=== PATIENT | female | born 2000 | race Caucasian/White ===

== ENCOUNTER 2023-01-24 09:57 | Outpatient (OUT) | payer OTHER, SELFPAY ==
--- NOTE | 2023-01-24 10:00 | US_ITS ---
[place] [id number] Patient Name: KAILYN ACKERMAN MRN: [id number] date: 2000 Sex: F Assigned Patient Location: Current Patient Location: Accession/Order Number: [id number] Exam Date: 01/24/2023 10:00 Report Date: 01/27/2023 15:30 At the request of: VAL ANG Procedure: US OB transvaginal EXAMINATION: US OB transvaginal HISTORY: MISSED MENSES COMPARISON: No relevant comparison available. FINDINGS: GESTATIONAL SAC: Present and normal appearing. YOLK SAC: Present and normal appearing. POLE: Present and normal appearing. CARDIAC: Absent. UTERUS: Normal size and appearance. OVARIES: Right: Normal. Left: Normal. CERVIX: 3.0 cm in length and closed. CUL-DE-SAC: Normal. OTHER: None. AGE BY LMP: 7 weeks 3 days NOY BY LMP: 09/09/2023 AGE BY US CRL: 5 weeks 6 days NOY BY US CRL: 09/20/2023 US/US OB transvaginal IMPRESSION: 1. Early intrauterine . Follow-up recommended. Electronically authenticated by: MARS FRANKEL Date: 01/27/2023 15:30
== END 2023-01-24 09:58 | disposition home or self-care (01) ==
LOC: US 09:57
PROVIDERS: Visit Provider Obstetrics & Gynecology
DX: Z34.91 Encounter for supervision of normal pregnancy, unspecified, first trimester (principal)
CPT/HCPCS: 76817

== ENCOUNTER 2023-02-06 17:12 | Outpatient (OUT) | payer OTHER, SELFPAY ==
--- NOTE | 2023-02-06 | US_ITS ---
[address] [address] Patient Name: KAILYN ACKERMAN MRN: [id number] date: 2000 Sex: F Assigned Patient Location: US Current Patient Location: Accession/Order Number: [id number] Exam Date: 02/06/2023 15:10 Report Date: 02/07/2023 07:37 At the request of: VAL ANG Procedure: US OB transvaginal EXAMINATION: US OB transvaginal HISTORY: missed menses n92.6 COMPARISON: 01/24/2023 FINDINGS: Daly intrauterine gestation. Gestational sac: 1.16 cm, 5 weeks 2 days CRL: 2.7 mm, 5 weeks 6 days Yolk sac: 2.4 mm Cervix: Closed, 3.1 cm The uterus is normal, anteverted. Identified adjacent to the gestational sac is a 0.4 x 0.5 x 0.3 cm area of hypoechogenicity The ovaries are normal in appearance. Clinical age: 9 weeks 4 days Clinical NOY: 09/07/2023 Ultrasound age: 5 weeks 4 days Ultrasound NOY: 10/05/2023 US/US OB transvaginal IMPRESSION: 5 mm subchorionic hematoma Viable daly intrauterine gestation measuring 5 weeks 4 days Electronically authenticated by: SOFIA KABA Date: 02/07/2023 07:37
== END 2023-02-06 17:13 | disposition home or self-care (01) ==
LOC: US 17:12
PROVIDERS: Visit Provider Obstetrics & Gynecology
DX: O43.891 Other placental disorders, first trimester (principal); Z3A.01 Less than 8 weeks gestation of pregnancy
CPT/HCPCS: 76817

== ENCOUNTER 2023-02-11 14:04 | Day surgery (SDC) | payer SELFPAY ==
[2023-02-11] VITALS (8 sets, daily range): BP systolic 88–105; BP diastolic 44–70; PULSE 52–96; RESP 14–22; TEMP 36.2–36.7; O2SAT 98–100; BMI 25.4
[2023-02-11 14:34] LABS: Basophils Absolute Auto 0.1 10^3/uL (0.0-0.1); Basophils Percent Auto 0.8 % (0.2-2.0); Eosinophils Absolute Auto 0.1 10^3/uL (0.0-0.7); Eosinophils Percent Auto 1.6 % (0.9-7.0); Hematocrit 37.1 % (36.0-48.0); Immature Granulocytes Abs Auto 0.04 10^3/uL (0.00-0.03); Immature Granulocytes Pct Auto 0.5 % (0.0-0.5); Lymphocytes Absolute Auto 2.1 10^3/uL (1.2-3.8); Lymphocytes Percent Auto 28.6 % (20.5-60.0); Mean Corpuscular HGB Conc 32.3 g/dL (29.9-35.2); Mean Corpuscular Hemoglobin 27.2 pg (26.7-34.0); Mean Corpuscular Volume 84.1 fL (81.0-99.0); Mean Platelet Volume 9.7 fL (9.5-13.5); Monocytes Absolute Auto 0.6 10^3/uL (0.3-0.8); Monocytes Percent Auto 7.6 % (1.7-12.0); Neutrophils Absolute Auto 4.5 10^3/uL (1.4-6.5); Neutrophils Percent Auto 60.9 % (43.0-75.0); Platelet Count 251 10^3/uL (150-450); Red Blood Count 4.41 10^6/uL (4.20-5.40); Red Cell Distribution Width 14.6 % (11.0-15.0); White Blood Count 7.4 10^3/uL (4.0-11.0)
[2023-02-11] MEDS: LACTATED RINGER'S SOLUTION 1,000 ML 75 ML IV (15:05)
[2023-02-11] MEDS: MIDAZOLAM HCL 2 MG/2 ML VIAL IV (15:21)
[2023-02-11 16:12] LABS: HCG Quantitative 7354 mIU/mL
--- NOTE | 2023-02-11 16:38 | P.ON_ITS ---
Brief Operative Note Date of procedure: 02/11/23 Pre-op diagnosis: first trimester missed Post-op diagnosis: same as pre-op Procedure: NAME OF PROCEDURE: [D&C suction ] PROCEDURE: The patient was taken back to the OR where she was given general anesthesia without difficulty. She was then placed in dorsal lithotomy position, prepped and draped in the normal sterile fashion. A weighted speculum was placed in the patient's vagina and the anterior lip of the cervix was identified and grasped with a single-tooth tenaculum. The patient was then gently dilated using Hegar dilators after we had sounded roughly to 9 cm. The suction curette was then tested. The suction curette was then placed in the patient's uterus and products of conception were removed using an 8-Icelandic suction curette. ?Excellent hemostasis was noted. The patient tolerated the procedure well. Sponge, lap, and needle counts were correct x 2. All instruments were then removed from the patient's vagina. The patient was taken to the Recovery Room in stable co ndition. ?? Anesthesia: JEROMEA Surgeon: Juvenal Thorpe Estimated blood loss (mL): 10 Pathology: other (products of conception) Condition: stable Disposition: PACU
--- NOTE | 2023-02-11 16:58 | PC.NURSE ---
peripad dry; teary eyed
[2023-02-11] MEDS: LACTATED RINGER'S SOLUTION 1,000 ML 150 ML IV (17:01)
--- NOTE | 2023-02-11 17:13 | PC.NURSE ---
scant drainage on peripad
== END 2023-02-11 17:47 | disposition home or self-care (01) ==
PROVIDERS: Visit Provider Obstetrics & Gynecology
PROC: (CPT 1965; principal; 2023-02-11 15:30)
DX: O02.1 Missed abortion (principal)
CPT/HCPCS: 59820; 36415; 84702; 85025; 86900; 86901; 88305; J2704

== ENCOUNTER 2023-09-04 14:11 | Outpatient (OUT) | payer OTHER, SELFPAY ==
--- NOTE | 2023-09-04 14:13 | US_ITS ---
The [address] [address] Patient Name: KAILYN ACKERMAN MRN: [id number] date: 2000 Sex: F Assigned Patient Location: [facility] Current Patient Location: [facility] Accession/Order Number: [id number] Exam Date: 09/04/2023 14:13 Report Date: 09/04/2023 15:34 At the request of: VAL ANG Procedure: US OB transvaginal EXAMINATION: US OB transvaginal HISTORY: MISSED MENSES COMPARISON: 02/06/2023 FINDINGS: Transvaginal images Daly intrauterine gestation Gestational sac: 2.08 cm, 6 weeks 4 days CRL: 1.24 cm, 7 weeks 3 days Yolk sac: 0.5 cm Heart rate: 169 bpm Area of hypoechogenicity adjacent to the gestational sac measuring 4.3 x 2.9 x 1.5 cm consistent with subchorionic hemorrhage The uterus is normal, anteverted, anteflexed The right ovary is normal measuring 3.3 x 1.7 x 3.6 cm. Normal color flow The left ovary measures 5.0 x 3.1 x 4.6 cm. Areas of anechoic echogenicity measuring up to 3.8 cm likely corpus luteal cyst. No free fluid. Clinical age: 8 weeks 0 days Clinical NOY: 04/15/2024 Ultrasound age: 7 weeks 3 days Ultrasound NOY: 04/19/2024 US/US OB transvaginal IMPRESSION: Viable daly intrauterine gestation measuring 7 weeks 3 days 4.3 cm subchorionic hematoma Electronically authenticated by: SOFIA KABA Date: 09/04/2023 15:34
== END 2023-09-04 14:12 | disposition home or self-care (01) ==
LOC: NOMS 14:11
PROVIDERS: Visit Provider Obstetrics & Gynecology
DX: O46.8X1 Other antepartum hemorrhage, first trimester (principal); Z3A.01 Less than 8 weeks gestation of pregnancy; N92.6 Irregular menstruation, unspecified
CPT/HCPCS: 76817

== ENCOUNTER 2023-09-18 08:58 | Outpatient (OUT) | payer OTHER, SELFPAY ==
[2023-09-18 09:31] LABS: BOX Test Sent Out Y
[2023-09-18 09:37] LABS: Basophils Percent Auto 0.4 % (0.2-2.0); Eosinophils Absolute Auto 0.1 10^3/uL (0.0-0.7); Eosinophils Percent Auto 1.3 % (0.9-7.0); Hematocrit 36.9 % (36.0-48.0); Hemoglobin 11.9 g/dL (12.0-16.0); Immature Granulocytes Abs Auto 0.02 10^3/uL (0.00-0.03); Immature Granulocytes Pct Auto 0.2 % (0.0-0.5); Lymphocytes Absolute Auto 2.5 10^3/uL (1.2-3.8); Lymphocytes Percent Auto 27.6 % (20.5-60.0); Mean Corpuscular HGB Conc 32.2 g/dL (29.9-35.2); Mean Corpuscular Hemoglobin 27.7 pg (26.7-34.0); Mean Corpuscular Volume 85.8 fL (81.0-99.0); Mean Platelet Volume 9.5 fL (9.5-13.5); Monocytes Absolute Auto 0.6 10^3/uL (0.3-0.8); Monocytes Percent Auto 6.7 % (1.7-12.0); Neutrophils Absolute Auto 5.8 10^3/uL (1.4-6.5); Neutrophils Percent Auto 63.8 % (43.0-75.0); Platelet Count 281 10^3/uL (150-450); Red Cell Distribution Width 13.2 % (11.0-15.0); White Blood Count 9.1 10^3/uL (4.0-11.0)
[2023-09-18 11:00] LABS: Estimated Average Glucose 100 mg/dL; Glycohemoglobin A1C 5.1 % (4.5-6.2)
[2023-09-19 06:08] LABS: HBsAg Screen Negative (Negative); HCV Ab Non Reactive (Non Reactive); HIV Ab/p24 Ag Screen Non Reactive (Non Reactive)
[2023-09-19 07:08] LABS: Rubella Antibodies, IgG 1.92 index (Immune >0.99)
[2023-09-19 11:09] LABS: Rapid Plasma Reagin, Quant Non Reactive titer (NonRea<1:1)
== END 2023-09-18 08:59 | disposition home or self-care (01) ==
PROVIDERS: Visit Provider Obstetrics & Gynecology
DX: N92.6 Irregular menstruation, unspecified (principal); Z36.0 Encounter for antenatal screening for chromosomal anomalies
CPT/HCPCS: 36415; 83036; 85025; 86592; 86762; 86803; 86850; 86900; 86901; 87086; 87340; 87389

== ENCOUNTER 2023-10-27 22:19 | Outpatient (REF) | payer OTHER, SELFPAY ==
[2023-10-31 10:09] LABS: Age Gdln ACOG Testing Note (.); IGP, rfx Aptima HPV ASCU Note (.)
== END 2023-10-27 22:20 | disposition home or self-care (01) ==
LOC: LAB 22:19
PROVIDERS: Visit Provider Physician Assistant
DX: Z01.419 Encounter for gynecological examination (general) (routine) without abnormal findings (principal)
CPT/HCPCS: G0145

== ENCOUNTER 2023-12-01 14:39 | Outpatient (OUT) | payer OTHER, SELFPAY ==
[2023-12-03 01:06] LABS: AFP Value 87.1 ng/mL (.); Gest. Age on Collection Date 20.6 weeks (.); Insulin Dep Diabetes No (.); Maternal Age At EDD 21.5 yr (.); OSBR Risk 1 IN 3133 (.); Results Report (.)
== END 2023-12-01 14:40 | disposition home or self-care (01) ==
LOC: LAB 14:40
PROVIDERS: Visit Provider Obstetrics & Gynecology
DX: Z34.92 Encounter for supervision of normal pregnancy, unspecified, second trimester (principal)
CPT/HCPCS: 36415; 82105

== ENCOUNTER 2023-12-16 12:15 | Observation (INO) | payer OTHER, SELFPAY ==
[2023-12-16 12:44] VITALS: BP 100/53; PULSE 86
--- NOTE | 2023-12-16 12:58 | US_ITS ---
[place] [id number] Patient Name: KAILYN ACKERMAN MRN: [id number] date: 2000 Sex: F Assigned Patient Location: [facility] Current Patient Location: [facility] Accession/Order Number: [id number] Exam Date: 12/16/2023 13:30 Report Date: 12/16/2023 14:38 At the request of: VAL ANG Procedure: US OB placenta EXAM: US OB placenta HISTORY: back pain COMPARISON: None. TECHNIQUE: Grayscale and color FINDINGS: position: Cephalic presentation, longitudinal lie Amniotic fluid: 13.8 cm, normal Largest fluid pocket: 4.7 cm Placenta: Posterior, incidental circumvallate placenta. No intraplacental or retroplacental echogenic abnormality Heart rate: 152 bpm Clinical age: 22 weeks 5 days Clinical NOY: 04/15/2024 US/US OB placenta IMPRESSION: Unremarkable placenta Electronically authenticated by: SOFIA KABA Date: 12/16/2023 14:38
[2023-12-16 13:26] LABS: Amnisure NEGATIVE (NEGATIVE); Internal Control Within Normal Limits
== END 2023-12-16 14:49 | disposition home or self-care (01) ==
LOC: FBC 12:18
PROVIDERS: Admitting Provider Obstetrics & Gynecology; Visit Provider Obstetrics & Gynecology
DX: O36.8120 Decreased fetal movements, second trimester, not applicable or unspecified (principal); O26.892 Other specified pregnancy related conditions, second trimester; N89.8 Other specified noninflammatory disorders of vagina; M54.50 Low back pain, unspecified; R10.30 Lower abdominal pain, unspecified; Z3A.22 22 weeks gestation of pregnancy
CPT/HCPCS: 76815; 84112; G0378; G0379

== ENCOUNTER 2024-01-12 09:06 | Outpatient (OUT) | payer OTHER, SELFPAY ==
--- NOTE | 2024-01-12 09:09 | US_ITS ---
[address] [address] Patient Name: KAILYN ACKERMAN MRN: [id number] date: 2000 Sex: F Assigned Patient Location: US Current Patient Location: US Accession/Order Number: [id number] Exam Date: 01/12/2024 09:10 Report Date: 01/12/2024 10:20 At the request of: GONSALO CORRAL Procedure: US OB growth EXAMINATION: US OB growth HISTORY: 24 Weeks Gestation Of COMPARISON: Ultrasound OB placenta 12/16/2023 FINDINGS: Heart Rate: 160.71 bpm Amniotic Fluid Volume: 12.4 cm; normal range Number: 1 Position: CEPHALIC BIOMETRY: BPD: 6.61 cm; 26 weeks 5 days; 41.50 % HC: 25.48 cm; 27 weeks 5 days; 61.50 % AC: 20.90 cm; 25 weeks 3 days; 12.60 % FL: 4.49 cm; 24 weeks 6 days; 3.30 % EFW: 815.95 g; 8.10 % FL/AC: 21.47 FL/BPD: 67.92 HC/AC: 1.22 GESTATIONAL AGE: Age by EDC: 26 weeks 4 days NOY by EDC: 2024-04-15 Age by US: 26 weeks 1 day NOY by US: 2024-04-18 US/US OB growth IMPRESSION: 1. Single live intrauterine with growth detailed above. 2. Known circumvallate placenta. Electronically authenticated by: MARS FRANKEL Date: 01/12/2024 10:20
--- OUTSIDE RECORDS SUMMARY | 2024-01-12 09:25 | XMS_ITS | CCD ---
Author Organization [facility] Inform ion [facility] Care Team Providers Care [employer] Vice President Name Role Phone Kendra Witt Unavailable Michael Oneil Unavailable Unavailable Primary Care Provider JUAQUIN mAos Referring Unavailable ASHIA, DR NEAL Consulting Unavailable REQUEST, NONE LISTED Primary Care Unavaila ble ASHIA, DR NEAL Attending Unavailable ASHIA, DR NEAL Admitting Unavailable REQUEST, NONE LISTED Primary Care Unavaila ble ASHIA, DR NEAL Attending Unavailable ASHIA, DR NEAL Admitting Unavailable KARASIK, DR YANEZ Consulting Unavailable REQUEST, NONE LISTED Primary Care Unavaila ble ASHIA, DR NEAL Attending Unavailable ASHIA, DR NEAL Admitting Unavailable ASHIA, DR NEAL Consulting Unavailable REQUEST, NONE LISTED Primary Care Unavaila ble ASHIA, DR NEAL Attending Unavailable ASHIA, DR NEAL Admitting Unavailable ASHIA, DR NEAL Consulting Unavailable REQUEST, NONE LISTED Primary Care Unavaila ble ASHIA, DR NEAL Attending Unavailable ASHIA, DR NEAL Admitting Unavailable ASHIA, DR NEAL Consulting Unavailable REQUEST, NONE LISTED Primary Care Unavaila ble ASHIA, DR NEAL Attending Unavailable ASHIA, DR NEAL Admitting Unavailable ROSEANN CORRAL Consulting Unavailable REQUEST, NONE LISTED Primary Care Unavaila ROSEANN Wilson Attending Unavailable ROSEANN CORRAL Admitting Unavailable KARASIK, DR YANEZ Consulting Unavailable MISC, DR SANDOVAL Primary Care Unavailable KARASIK, DR YANEZ Attending Unavailable KARASIK, DR YANEZ Admitting Unavailable ZIEBER, DR MARS Mccarthy Consulting Unavailable MAGNOLIA, DR SOFIA Hull Consulting Unavailable REQUEST, NONE LISTED Primary Care Unavaila ble ASHIA, DR NEAL Attending Unavailable ASHIA, DR NEAL Admitting Unavailable ASHIA, DR NEAL Consulting Unavailable KARASIK, DR YANEZ Consulting Unavailable REQUEST, NONE LISTED Primary Care Unavaila ble ASHIA, DR NEAL Attending Unavailable ASHIA, DR NEAL Admitting Unavailable ASHIA, DR NEAL Consulting Unavailable AGUBOSIM, ZAN Consulting Unavailable ASHIA, DR NEAL Procedure Practitioner Unavailab ricardo KABA, DR SOFIA Hull Consulting Unavailable REQUEST, NONE LISTED Primary Care Unavaila ble ASHIA, DR NEAL Attending Unavailable ASHIA, DR NEAL Admitting Unavailable ASHIA, DR NEAL Consulting Unavailable Viet Welch Unavailable NONE, XXXX Primary Care Physician Unavailab le NO FAMILY, PHYSICIAN Primary Care Provider Unava MD Jose Moody Emergency Provider Jose Silverman Attending Unavailable Jose Silverman Admitting Unavailable NO FAMILY, PHYSICIAN Primary Care Unavailable Kenneth Mills Unavailable SELAM HUNTER Primary Care Physician SELAM HUNTER Primary Care Unavailable Emily Harper Attending Unavailable SELAM HUNTER Primary Care Unavailable Wil Chandra Attending Unavailable Siva Schulte Attending Unavailable SELAM HUNTER Admitting Unavailable SEALM HUNTER Attending Unavailable JUVENAL THORPE Referring Unavailable JUANITO PABLO Attending Unavailable JESSICA ALEJO Referring Unavailable JUVENAL THORPE Referring Unavailable JUVENAL THORPE Attending Unavailable GONSALO CORRAL Attending Unavailable JUVENAL THORPE Attending Unavailable GONSALO CORRAL Attending Unavailable Allergies Allergy Classification Reported Allergen(s) Allergy Type Date of Onset Reaction(s) Facility (1 source) No Known Medication Allergies; Translations: [No Known Medication Allergies] Propensity to adverse reactions (disorder) [facility] Repository Medications Current Medications Medication Drug Class(es) Dates Sig (Normalized) Sig (Original) amoxicillin 875 mg oral tablet (2 sources) Penicillin-class Antibacterial Start: 11-13-2021 take 1 tablet by mouth every twelve hours Amoxicillin 875 MG 1 tablet Orally Twice a day for 10 day(s) Nov, Active amoxicillin 875 mg / clavulanate 125 mg oral tablet (2 sources) Penicillin-class Antibacterial Start: 09-25-2022 take 1 tablet by mouth every twelve hours Amoxicillin-Pot Clavulanate 875-125 MG 1 tablet Orally every 12 hrs for 10 day(s) Sep, Active benzonatate 200 mg oral capsule (2 sources) Non-narcotic Antitussive Start: 09-25-2022 take 1 capsule by mouth three times daily as needed for cough Benzonatate 200 MG 1 capsule Orally Three times a day as needed for cough for 7 day(s) Sep, Active 12 hr buPROPion hydrochloride 100 mg extended release oral tablet (2 sources) Aminoketone take 1 tablet by mouth every twenty-four hours Wellbutrin SR 100 MG 1 tablet in the morning Orally Once a day Active cephalexin 500 mg oral capsule (4 sources) Cephalosporin Antibacterial Start: 08-27-2023 End: 09-03-2023 take 1 capsule by mouth every six hours Keflex 500 mg Cap 500 mg = 1 cap(s), Oral, q6hr, X 7 day(s), # 28 cap(s), Refills(s) 0, Pharmacy: [id number], 170, cm, 08/27/23 9:49:00 EDT, Height/Length Dosing, 78.7, kg, 08/27/23 9:49:00 EDT, Weight Dosing Start Date: 08/27/23 Stop Date: 09/03/23 Status: Ordered Start: 01-03-2023 take 1 capsule by [facility] every twelve hours Keflex 500 mg Cap 500 mg = 1 cap(s), Oral, q12hr, # 20 cap(s), Refills(s) 0, Pharmacy: [facility], 170, cm, 01/03/23 22:44:00 EDT, Height/Length Dosing, 75.3, kg, 01/03/23 22:44:00 EDT, Weight Dosing Start Date: 01/03/23 Status: Ordered Citalopram (2 sources) Serotonin Reuptake Inhibitor Citalopram Hydrobromide Active dexamethasone 1 mg/ml / neomycin 3.5 mg/ml / polymyxin b 55106 unt/ml ophthalmic suspension (2 sources) Aminoglycoside Antibacterial, Polymyxin-class Antibacterial, Corticosteroid Start: 09-26-19 take 1 drop(s) into the eye(s) four times daily Maxitrol 3.5-82920-1.1 1 drop into affected eye Ophthalmic Four times a day for 7 days Sep, Active ethinyl estradiol 0.02 mg / norethindrone acetate 1 mg oral tablet (5 sources) Estrogen Start: 04-10-20 Microgestin 1/20 20 mcg-1 mg oral tablet Refill(s) 0 Start Date: 04/10/19 Status: Ordered fluticasone propionate 0.05 mg/actuat metered dose nasal spray (3 sources) Corticosteroid Start: 06-24-19 take 1 spray(s) nasal route twice daily Fluticasone Propionate 50 MCG/ACT 1 spray in each nostril Nasally Twice a day for 14 days Jun, Active Start: 11-13-2021 take 1 spray(s) nasa l route once daily Flonase Allergy Relief 50 MCG/ACT 1 spray in each nostril Nasally Once a day for 30 day(s) Nov, Active lidocaine hydrochloride 20 mg/ml mucous membrane topical solution (1 source) Antiarrhythmic, Amide Local Anesthetic Start: 06-24-2022 take 10 mL by mouth every three hours Lidocaine Viscous 2% 10 ml swish in mouth, gargle, and spit. DO NOT swallow every 3 hrs for 2 days Jun, Active Paxson (No Known Home Meds) (1 source) Start: 06-26-2021 Paxson (No Known Home Meds) Active June 26, 2021 1:00am ondansetron 8 mg disintegrating oral tablet (2 sources) Serotonin-3 Receptor Antagonist Start: 06-24-2022 take 1 tablet by mouth every eight hours as needed Ondansetron 8 MG 1 tablet on the tongue and allow to dissolve as needed Orally every 8 hours as needed for 3 day(s) Jun, Active Start: 06-06-2021 End: 06-26-2021 take 4 mg by mouth every eight hours Ondansetron Discontinued 4 MG PO Q8H June 06, 2021 1:00am June 27, 2021 12:00am Zofran ODT 4 mg Tab-Dis (8 sources) Start: 01-03-2023 take 1 tablet by mouth every eight hours as needed for nausea Zofran ODT 4 mg Tab-Dis 4 mg = 1 tab(s), Oral, q8hr, PRN Nausea/Vomiting, # 12 tab(s), Refills(s) 0, Pharmacy: [facility], 170, cm, 01/03/23 22:44:00 EDT, Height/Length Dosing, 75.3, kg, 01/03/23 22:44:00 EDT, Weight Dosing Start Date: 01/03/23 Status: Ordered Start: 06-09-2019 take 1 tablet by faby th three times daily Zofran ODT 4 mg Tab-Dis 4 mg = 1 tab(s), Oral, TID, # 15 tab(s), Refills(s) 0, Pharmacy: [facility] Start Date: 06/09/19 Status: Ordered Completed/Discontinued Medications Medication Drug Class(es) Dates Sig (Normalized) Sig (Original) cyclobenzaprine hydrochloride 10 mg oral tablet (1 source) Muscle Relaxant Start: 01-30-2020 End: 04-20-2020 take 10 mg by mouth three times daily Cyclobenzaprine Discontinued 10 MG PO Three times daily January 30, 2020 12:00am April 20, 2020 10:19pm dicyclomine hydrochloride 10 mg oral capsule (1 source) Anticholinergic Start: 04-21-2020 End: 03-21-2021 take 10 mg by mouth twice daily Dicyclomine Discontinued 10 MG PO Twice daily April 21, 2020 1:28am March 21, 2021 7:05am hydrOXYzine pamoate 50 mg oral capsule (1 source) Antihistamine Start: 03-26-2021 End: 05-05-2021 take 50 mg by mouth every six hours Hydroxyzine Pamoate Discontinued 50 MG PO Q6H March 26, 2021 12:00am May 05, 2021 1:39am ibuprofen 600 mg oral tablet (1 source) Nonsteroidal Anti-inflammatory Drug Start: 12-17-2018 End: 01-30-2020 take 600 mg by mouth three times daily Ibuprofen Discontinued 600 MG PO Three times daily December 17, 2018 12:00am January 30, 2020 3:15pm lithium carbonate 450 mg extended release oral tablet (1 source) Start: 03-26-2021 End: 05-05-2021 take 450 mg by mouth twice daily [place] Carbonate Discontinued 450 MG PO Twice daily March 26, 2021 12:00May 05, 2021 1:39am meclizine hydrochloride 25 mg oral tablet (1 source) Antiemetic Start: 06-06-2021 End: 06-26-2021 take 25 mg by mouth twice daily Meclizine Discontinued 25 MG PO Twice daily June 06, 2021 1:00am June 27, 2021 12:00am 24 hr nicotine 0.875 mg/hr transdermal system (1 source) Cholinergic Nicotinic Agonist Start: 03-26-2021 End: 05-05-2021 Nicotine Discontinued 1 EACH TRANSDERML Daily March 26, 2021 12:00am May 05, 2021 1:39am nitrofurantoin, macrocrystals 25 mg / nitrofurantoin, monohydrate 75 mg oral capsule (1 source) Nitrofuran Antibacterial Start: 04-20-2020 End: 03-21-2021 take 100 mg by mouth twice daily Nitrofurantoin Monohyd/M-Cryst Discontinued 100 MG PO Twice daily April 20, 2020 1:00am March 21, 2021 7:05am pyridoxine hydrochloride 25 mg oral tablet (1 source) Start: 06-06-2021 End: 06-26-2021 take 1 tablet by mouth four times daily Pyridoxine (Vitamin B6) (Vitamin B-6) 25 mg tablet Discontinued 25 MG PO Four times daily June 06, 2021 1:00am June 27, 2021 12:00am traZODone hydrochloride 50 mg oral tablet (1 source) Serotonin Reuptake Inhibitor Start: 03-26-2021 End: 05-05-2021 take 50 mg by mouth once daily at bedtime Trazodone Discontinued 50 MG PO Daily at bedtime March 26, 2021 12:00am May 05, 2021 1:39am Problems Active Problems Problem Classification Problem Date Documented Date Episodic/Chronic Abdominal pain (2 sources) Abdominal pain; Translations: [Unspecified abdominal pain] Onset: 08-14-2022 Episodic Hemorrhage during ; abruptio placenta; placenta previa (9 sources) Low lying placenta NOS or without hemorrhage, unspecified trimester; Translations: [Low lying placenta NOS or without hemorrhage, second trimester] Onset: 09-07-2021 06-26-2021 Episodic Immunizations and screening for infectious disease (6 sources) Contact with and (suspected) exposure to infections with a predominantly sexual mode of transmission; Translations: [Encounter for screening for infections with a predominantly sexual mode of transmission] Onset: 10-02-2021 Episodic Inflammation; infection of eye (except that caused by tuberculosis or sexually transmitteddisease) (1 source) Hordeolum internum right upper eyelid Episodic Influenza (1 source) Influenza due to unidentified influenza virus with other respiratory manifestations Episodic Menstrual disorders (5 sources) Irregular menstruation, unspecified; Translations: [IRREGULAR MENSTRUATION UNSPECIFIED] Onset: 10-02-2021 Chronic Miscellaneous mental health disorders (1 source) depression; Translations: [ depression] 10-02-2022 Episodic Mood disorders (8 sources) Recurrent major depressive episodes, moderate ; Translations: [Major depressive disorder, recurrent, moderate] Onset: 11-28-2021 11-28-2021 Chronic Other complications of (1 source) Vomiting of ; Translations: [Vomiting of , unspecified] 06-06-2021 Episodic Other complications of (1 source) Spotting per vagina in ; Translations: [Spotting complicating , first trimester] 06-06-2021 Episodic Other complications of (1 source) Urinary tract infection in ; Translations: [Unspecified infection of urinary tract in , unspecified trimester] Onset: 08-27-2023 Episodic Other complications of (1 source) Malformation of placenta, unspecified, unspecified trimester; Translations: [Malformation of placenta, unspecified, unspecified trimester] Onset: 12-22-2023 Episodic Other complications of (1 source) Smoking (tobacco) complicating , second trimester; Translations: [Smoking (tobacco) complicating , second trimester] Onset: 12-22-2023 Episodic Other female genital disorders (1 source) Abnormal uterine bleeding; Translations: [Abnormal uterine and vaginal bleeding, unspecified] Onset: 09-06-2022 Chronic Other female genital disorders (5 sources) Other specified noninflammatory disorders of vagina; Translations: [OTH SPEC NONINFLAMMATORY D/O VAGINA] Onset: 10-03-2021 Episodic Other and delivery including normal (10 sources) Encounter for routine follow-up; Translations: [Encounter for supervision of normal , unspecified, third trimester] Onset: 01-07-2022 Episodic Other screening for suspected conditions (not mental disorders or infectious disease) (16 sources) Encounter for screening for Streptococcus B; Translations: [Encounter for screening for diabetes mellitus] Onset: 09-04-2021 Episodic Other upper respiratory infections (8 sources) Acute upper respiratory infection, unspecified; Translations: [Acute pharyngitis, unspecified] Onset: 11-06-2021 Resolved: 11-13-2021 Episodic Polyhydramnios and other problems of amniotic cavity (3 sources) Disorder of amniotic cavity AND/OR membrane; Translations: [Other specified disorders of amniotic fluid and membranes, unspecified trimester, not applicable or unspecified] Onset: 08-27-2023 Episodic Residual codes; unclassified (1 source) Pain; Translations: [Pain, unspecified] Onset: 01-03-2023 Episodic Spontaneous (1 source) Complete inevitable miscarriage without complication; Translations: [Complete or unspecified spontaneous without complication] Onset: 09-06-2022 Episodic Sprains and strains (1 source) Sprain of foot; Translations: [Unspecified sprain of right foot, initial encounter] 12-17-2018 Episodic Suicide and intentional self-inflicted injury (2 sources) Suicidal thoughts; Translations: [Suicidal ideations] Onset: 10-02-2022 10-02-2022 Episodic Unclassified (1 source) CONTACT W/AND (SUSP) EXPOS COVID-19; Translations: [CONTACT W/AND (SUSP) EXPOS COVID-19] Onset: 01-11-2022 Unclassified (1 source) Subchorionic Hematoma Onset: 11-10-2023 Viral infection (1 source) Viral disease; Translations: [Viral infection, unspecified] 01-30-2020 Episodic Past or Other Problems Problem Classification Problem Date Documented Date Episodic/Chronic OB-related trauma to perineum and vulva (1 source) Second degree perineal laceration during delivery; Translations: [SECOND DEG PERINEAL LAC DUR DELIV] Onset: 01-11-2022 Episodic Other complications of (4 sources) Other specified related conditions, third trimester; Translations: [OTH SPEC PREG RELATED COND 3RD TRI] Onset: 12-29-2021 Episodic Other complications of (4 sources) Maternal care for abnormalities of the heart rate or rhythm, third trimester, not applicable or unspecified; Translations: [MTRN CARE ABN FHR/R 3RD TRI NA/UNS] Onset: 11-27-2021 Episodic Residual codes; unclassified (1 source) Pain, unspecified Onset: 11-06-2021 Resolved: 11-06-2021 Episodic Residual codes; unclassified (1 source) 39 weeks gestation of ; Translations: [39 WEEKS GESTATION OF ] Onset: 01-11-2022 Episodic Residual codes; unclassified (1 source) 37 weeks gestation of ; Translations: [37 WEEKS GESTATION OF ] Onset: 01-01-2022 Episodic Residual codes; unclassified (1 source) 33 weeks gestation of ; Translations: [33 WEEKS GESTATION OF ] Onset: 11-29-2021 Episodic Residual codes; unclassified (1 source) 21 weeks gestation of ; Translations: [21 WEEKS GESTATION OF ] Onset: 09-07-2021 Episodic Screening and history of mental health and substance abuse codes (1 source) Personal history of nicotine dependence; Translations: [PERSONAL HISTORY OF NICOTINE DEPEND] Onset: 01-11-2022 Episodic Unclassified (2 sources) Cough R05.9 Onset: 11-13-2021 Resolved: 11-13-2021 Results Test Name Value Interpretation Reference Range Facility ED Note-Physicianon 09-26-19 ED Note-Physician Basic Information Time Seen: Venkat Lockwood PA-C 09/23/2023 09:13 Chief Complaint Pt presents to ED with complaints of vaginal and back pressure with vaginal bleeding. Pt 10 weeks IUP History of Present Illness 23-year-old female comes to the ED for evaluation of vaginal bleeding. She is currently 10 weeks . She had 1 live , 2 miscarriages, and this is her fourth . She was diagnosed with a subchorionic bleed a few weeks ago. She been having some intermittent vaginal bleeding since that time, but symptoms worsened today with heavier bleeding with associated abdominal pressure and discomfort. No fever, chills, nausea or vomiting. No weakness dizziness lightheadedness. Review of Systems A 10 point review of systems is negative except as noted above. Medical and Surgical History: Reviewed and noted Social history: Lives at home Tobacco: Denies Physical Exam Vitals & Measurements T: 36.9 ?C(Oral) HR: 82(Peripheral) RR: 18 BP: 98/68 SpO2: 97% HT: 170 cm WT: 77.7 kg BMI: 26.89 Nurses notes and vital signs reviewed and patient is not hypoxic. General: The patient appears well, resting comfortably. Skin: Warm, dry. Head: Atraumatic. Neck: No JVD. Eye: Normal conjunctiva. Ears, Nose, Mouth, and Throat: Moist mucous membranes. Cardiovascular: Strong distal pulses. Chest wall: Respiratory: Respirations are nonlabored. Back: Normal range of motion. Musculoskeletal: Normal ROM with no gross deformity. Gastrointestinal: Soft and nontender Urological: Neurological: Awake and alert. No focal deficits. Follows commands. Psychiatric: Cooperative. Medical Decision Making Patient presents with vaginal bleeding in the setting of . She appears well initial evaluation. Abdomen is soft and nontender. She does have documented history of Rh+ blood type. Quantitive hCG greater than 90,000. Ultrasound was obtained discussed with health technician. Intrauterine consistent with stated gestational age. Stable heart rate. Patient continues to demonstrate subchorionic hematoma. Also left-sided ovarian cyst similar to previous. Results were discussed with the patient. She is discharged home to continue pelvic rest and follow-up with [facility]. Patient was encouraged to return to the ED if symptoms worsen or change. Assessment/Plan Other antepartum hemorrhage, unspecified trimester (O46.8X9: Other antepartum hemorrhage, unspecified trimester) Subchorionic bleed (O41.8X90: Other specified disorders of amniotic fluid and membranes, unspecified trimester, not applicable or unspecified) Vaginal bleeding in (O46.90: Antepartum hemorrhage, unspecified, unspecified trimester) Orders: Beta hCG Quantitative Extra Lav Tube Extra SST Tube UA with Cult Rflx US 1st Trimester Disposition Plan Patient Discharge Condition Disposition: Discharged home Condition: Improved and stable Counseled: Patient and/or family were counseled to workup, results, treatment plan and follow-up recommendations Discharge Prescription List Prescriptions No active prescription medications Follow-up With When Contact Information Juvenal THORPE In 3 days 09/26/[address] [place] [address]- Business (1) Additional Instructions: Patient Education Subchorionic Hematoma Attestation I performed a substantive part of the MDM during the patient?s E/M visit. I personally made or approved the documented management plan and acknowledge its risk of complications. (Independent Interpretation) My (EKG/X-Ray/US/CT) interpretation as above. (Discussion) Management/test interpretation discussed with APC. This report was transcribed using voice recognition software. Every effort was made to ensure accuracy, however, inadvertently computerized crime scene analyst mistakes may be present. Appropriate healthcare PPE was used in evaluating this patient. Problem List/Past Medical History Ongoing No chronic problems Historical No qualifying data Procedure/Surgical History Elbow. Medications Inpatient No active inpatient medications Home Keflex 500 mg Cap, 500 mg= 1 cap(s), Oral, q12hr Microgestin 1/20 20 mcg-1 mg oral tablet, Not taking Zofran ODT 4 mg Tab-Dis, 4 mg= 1 tab(s), Oral, TID, Not taking Zofran ODT 4 mg Tab-Dis, 4 mg= 1 tab(s), Oral, q8hr, PRN Allergies No Known Medication Allergies Social History Alcohol Substance Abuse Tobacco Current vaping or e-cigarette use Smokeless Tobacco Use:. Vaping, 08/14/2022 Never (less than 100 in lifetime) Tobacco Use:. Ready to change: No. Household tobacco concerns: Yes., 04/10/2019 Lab Results Beta hCG Qnt: 96919 mIU/mL High (09/23/23 09:28:00) Diagnostic Results No qualifying data available. [facility] Comment on above: Result Comment: Elec tronically Signed By: Venkat Lockwood PA-C\.br\Date and Time Signed: 09/23/23 11:45 EDT\.br\Electronically Co-Signed By: Wil Chandra DO\.br\Date and Time Co-Signed: 09/26/23 07:37 EDT [facility] [place] 09-23-2023 [place] [address] m[IU]/mL High 1-3 F [facility] Comment on above: Result Comment: 'F N ON < 1 - 3' ' 0.2 - 1 WEEK = 5 TO 50' ' 1 - 2 WEEKS = 50 - 500' ' 2 - 3 WEEKS = 100 - 5000' ' 3 - 4 WEEKS = 500 - 05902' ' 4 - 5 WEEKS = 1000 - 68030' ' 5 - 6 WEEKS = 00853 - 143915' ' 6 - 8 WEEKS = 57881 - 491597' ' 8 - 12 WEEKS = 19108 - 253616' Performed By: #### 2 [id number], [id number] #### [facility] [address] [place] [id number] CHEMISTRYOrdered By: SYSTEM SYSTEM on 09-23-2023 [place] [address] m[IU]/mL High 1 - 3 mIU/mL Remisol [facility] Comment on above: Result Comment: 'F N ON < 1 - 3' ' 0.2 - 1 WEEK = 5 TO 50' ' 1 - 2 WEEKS = 50 - 500' ' 2 - 3 WEEKS = 100 - 5000' ' 3 - 4 WEEKS = 500 - 51269' ' 4 - 5 WEEKS = 1000 - 44650' ' 5 - 6 WEEKS = 88093 - 809625' ' 6 - 8 WEEKS = 52026 - 916231' ' 8 - 12 WEEKS = 90581 - 896762' Consent for Treatmenton 09-07 Consent for Treatment [id number] Normal [facility] Discharge Instructionson Discharge Instructions [id number] Normal [facility] ED Clinical Summaryon 2023 ED Clinical Summary [address] [address] ED Clinical Summary Person Information Name: KAILYN ACKERMAN [facility]ena/[facility] Age: 23 Years : 2000 Sex: Female Language: Uruguayan PCP: NONE, XXXX Marital Status: Single Phone: [phone] MRN: Visit Id: Visit Reason: Back pain; Vaginal bleeding - < 20 wks ; 10 WKS , VAGIAL PRESSURE, BLEEDING Speciality: Acuity: 3 Enc Type: Emergency Med Service: Emergency Arrival: 09/23/2023 09:10:07 Discharge: 09/23/2023 11:51:59 LOS: 000 02:41 Checkin: 09/23/2023 09:10:07 Checkout: 09/23/2023 11:51:59 Dispo Type: Home (Routine DC) EVENTS: Event Name Event Status Request Date/Time Start Date/Time Complete Date/Time Arrive Complete 09/23/2023 09:10:07 09/23/2023 09:10:07 09/23/2023 09:10:07 Document Home Meds Request 09/23/2023 09:10:07 Triage Complete 09/23/2023 09:10:07 09/23/2023 09:18:49 09/23/2023 09:18:49 Bed Assign Complete 09/23/2023 09:12:56 09/23/2023 09:12:56 09/23/2023 09:12:56 Dr Exam Complete 09/23/2023 09:12:56 09/23/2023 09:13:49 09/23/2023 09:13:49 RN Exam Complete 09/23/2023 09:12:56 09/23/2023 09:25:19 09/23/2023 09:25:19 Registration Complete 09/23/2023 09:13:49 09/23/2023 09:34:56 09/23/2023 09:34:56 Dr Exam Complete 09/23/2023 09:14:01 09/23/2023 09:14:01 09/23/2023 09:14:01 Pending Labs Request 09/23/2023 09:17:50 Lab Complete 09/23/2023 09:17:50 09/23/2023 11:05:37 US Complete 09/23/2023 09:17:50 09/23/2023 11:42:23 Reg Complete Request 09/23/2023 09:34:56 Reg Bed Request Complete 09/23/2023 09:34:56 09/23/2023 09:34:56 09/23/2023 09:34:56 Pending Labs Complete 09/23/2023 09:40:17 09/23/2023 09:40:17 09/23/2023 09:40:18 Discharge Complete 09/23/2023 11:44:09 09/23/2023 11:52:16 09/23/2023 11:52:16 Transfer Complete 09/23/2023 11:52:16 09/23/2023 11:52:16 09/23/2023 11:52:16 [place] [address] [facility] [place] [id number] PH[place] DOC NOTES: MEDICAL INFORMATION: Prescriptions Given: Medications to Continue with No Changes Other Medications cephalexin (Keflex 500 mg Cap) 1 Capsules By Mouth every 12 hours. Refills: 0. ethinyl estradiol-norethin drone (Microgestin 1/20 20 mcg-1 mg oral tablet) ondansetron (Zofran ODT 4 mg Tab-Dis) 1 Tablets By Mouth 3 times a day. Refills: 0. ondansetron (Zofran ODT 4 mg Tab-Dis) 1 Tablets By Mouth every 8 hours as needed Nausea/Vomiting. Refills: 0. PATIENT EDUCATION INFORMATION: Instructions: Subchorionic Hematoma Follow up: With: Address: When: Juvenal ASHIA [facility], [address] [place] [address] [place] [address] Business (1) In 3 days 09/26/2023 DIAGNOSIS: Other antepartum hemorrhage, unspecified trimester; Subchorionic bleed; Vaginal bleeding in Normal [facility] ED Patient Education Noteon 09-23-2023 ED Patient Education Note Obstetrics and Gynecology Subchorionic Hematoma A hematoma is a collection of blood outside of the blood vessels. A subchorionic hematoma is a collection of blood between the outer wall of the embryo (chorion) and the inner wall of the uterus. This condition can cause vaginal bleeding. Early small hematomas usually shrink on their own and do not affect your baby or . When bleeding starts later in , or if the hematoma is larger or occurs in older women, the condition may be more serious. Larger hematomas increase the chances of miscarriage. This condition also increases the risk of: ? Premature separation of the placenta from the uterus. ? Premature () labor. ? Stillbirth. What are the causes? The exact cause of this condition is not known. It occurs when blood is trapped between the placenta and the uterine wall because the placenta has from the original site of implantation. What increases the risk? You are more likely to develop this condition if: ? You were treated with fertility medicines. ? You became through in vitro fertilization (IVF). What are the signs or symptoms? Symptoms of this condition include: ? Vaginal spotting or bleeding. ? Abdominal pain. This is rare. Sometimes you may have no symptoms and the bleeding may only be seen when ultrasound images are taken (transvaginal ultrasound). How is this diagnosed? This condition is diagnosed based on a physical exam. This includes a pelvic exam. You may also have other tests, including: ? Blood tests. ? Urine tests. ? Ultrasound of the abdomen. How is this treated? Treatment for this condition can vary. Treatment may include: ? Watchful waiting. You will be monitored closely for any changes in bleeding. ? Medicines. ? Activity restriction. This may be needed until the bleeding stops. ? A medicine called Rh immunoglobulin. This is given if you have an Rh-negative blood type. It prevents Rh sensitization. Follow these instructions at home: ? Stay on bed rest if told to do so by your health care provider. ? Do not lift anything that is heavier than 10 lb (4.5 kg), or the limit that you are told by your health care provider. ? Track and write down the number of pads you use each day and how soaked (saturated) they are. ? Do not use tampons. ? Keep all follow-up visits. This is important. Your health care provider may ask you to have follow-up blood tests or ultrasound tests or both. Contact a health care provider if: ? You have any vaginal bleeding. ? You have a fever. Get help right away if: ? You have severe cramps in your stomach, back, abdomen, or pelvis. ? You pass large clots or tissue. Save any tissue for your health care provider to look at. ? You faint. ? You become light-headed or weak. Summary ? A subchorionic hematoma is a collection of blood between the outer wall of the embryo (chorion) and the inner wall of the uterus. ? This condition can cause vaginal bleeding. ? Sometimes you may have no symptoms and the bleeding may only be seen when ultrasound images are taken. ? Treatment may include watchful waiting, medicines, or activity restriction. ? Keep all follow-up visits. Get help right away if you have severe cramps or heavy vaginal bleeding. This information is not intended to replace advice given to you by your health care provider. Make sure you discuss any questions you have with your health care provider. Document Revised: 02/19/2021 Document Reviewed: 02/19/2021 Elsevier Patient Education ? 2022 [employer] Normal [facility] ED Patient Summaryon 024 ED Patient Summary [address] [address] Patient Discharge Instructions Person Information Name: KAILYN ACKERMAN Age: 23 Years Arrival Date: 09/23/2023 09:10:07 Discharge Diagnosis: Other antepartum hemorrhage, unspecified trimester; Subchorionic bleed; Vaginal bleeding in Primary Care Physician: NONE, XXXX Provider Information Primary Provider: Wil Chandra DO Advanced Research Instructor:Venkat Leal PA-C The exam and treatment you received in the Emergency Department were for an urgent problem and are not intended as complete care. It is important that you follow up with a doctor, nurse practitioner, or physician?s safety admin assistant for ongoing care. If your symptoms become worse or you do not improve as expected and you are unable to reach your usual health care provider, you should return to the Emergency Department. We are available 24 hours a day. KAILYN ACKERMAN has been given the following list of patient education materials, prescriptions and follow-up instructions: Follow-up Instructions: With: Address: When: [facility], [address] [place] [address] [place] [address] [facility] (1) In 3 days 09/26/2023 In the event that this physician does not participate in your insurance network, please consult with your insurance company to find a nearby participating provider. Patient Education Materials: Subchorionic Hematoma A MESSAGE TO ALL PATIENTS REGARDING OPIOIDS PRESCRIPTION OPIOIDS: WHAT YOU NEED TO KNOW Prescription opioids can be used to help relieve uqqkthzn-ur-lueury pain and are often prescribed following a surgery or injury, or for certain health conditions. These medications can be an important part of the treatment but also come with serious risks. It is important to work with your healthcare provider to make sure you are getting the safest, most effective care. WHAT ARE THE RISKS AND SIDE EFFECTS OF OPIOID USE? Prescription opioids carry serious risks of addiction and overdose, especially with prolonged use. An opioid overdose, often marked by slowed breathing, can cause sudden . The use of prescription opioids can have a number of side effects as well, even when taken as directed: ? Tolerance?meaning you might need to take more of the medication for the same pain relief ? Physical dependence?meaning you have symptoms of withdrawal when a medication is stopped ? Increased sensitivity to pain ? Constipation ? Nausea, vomiting, and dry mouth ? Sleepiness and dizziness ? Confusion ? Depression ? Low levels of testosterone that can result in lower sex drive, energy, and strength ? Itching and sweating RISKS ARE GREATER WITH: ? History of drug misuse, substance use disorder, or overdose ? Mental health conditions (such as depression or anxiety) ? Sleep apnea ? Older age (65 years and older) ? Avoid alcohol while taking prescription opioids. Also, unless specifically advised by your health care provider, medications to avoid include: ? Benzodiazepines (such as Xanax or Valium) ? Muscle relaxants (such as Soma or Flexeril) ? Hypnotics (such as Ambien or Lunesta) ? Other prescription opioids KNOW YOUR OPTIONS Talk to your health care provider about ways to manage your pain that don?t involve prescription opioids. Some of these options may actually work better and have fewer risks and side effects. Options may include: ? Pain relievers such as acetaminophen, ibuprofen, and naproxen ? Some medication that are also used for depression or seizures ? Physical therapy and exercise ? Cognitive behavioral therapy, a psychological, goal-directed approach, in which patients learn how to modify physical, behavioral, and emotional triggers of pain and stress. IF YOU ARE PRESCRIBED OPIOIDS FOR PAIN: ? Never take opioids in greater amounts or more often than prescribed. ? Follow up with your primary health care provider. o Work together to create a plan on how to manage your pain. o Talk about ways to help manage your pain that don?t involve prescription opioids. o Talk about any and all concerns and side effects. ? Help prevent misuse and abuse o Never sell or share prescription opioids. o Never use another person?s prescription opioids. ? Store prescription opioids in a secure place and out of reach of others (this may include visitors, children, friends, and family). ? Safely dispose of unused prescription opioids: Find your community drug take-back program or your pharmacy mail-back program, or flush them down the toilet, following guidance from the Food and Drug Administration (www.fda.gov/Drugs /ResourcesForYou). ? Visit www.cdc.gov/drugov erdose to learn about the risks of opioids abuse and overdose. ? If you believe you may be struggling with addiction, tell your health care p (more content not included)... [facility] Prescriptions/Work Noteson 0 09-23-2023 Prescriptions/Work Notes [id number] Normal [facility] US 1st Trimesteron 09-23-2023 US 1st Trimester Exam Date/Time: 09/23/2023 11:42 EDT Reason for Exam: Threatened Miscarriage;Other (please specify) Report IMPRESSION: SINGLE LIVE INTRAUTERINE CORRESPONDING TO Composite Ultrasound Age: 10 weeks, 1 days, +/- 1 week. ENLARGING SUBCHORIONIC HEMORRHAGE FROM 08/27/2023, NOTED. EXAM: US 1st Trimester DATE: 09/23/2023 11:36 AM CLINICAL HISTORY: Threatened Miscarriage. Gestational Age by LMP: 10 weeks, 5 days COMPARISON: 08/27/2023. TECHNIQUE: Transabdominal ultrasound was performed of the pelvis. FINDINGS: An approximately approximately 4 x 3 cm gestational sac is present within the central aspect of the uterine body/fundus, with sizable surrounding subchorionic hemorrhage, measuring up to approximately 2 cm in thickness and surrounding probably at least 66% of the gestational sac circumference. [place] Rump Length: 3.2 cm, which corresponds Composite Ultrasound Age: 10 weeks, 1 days, +/- 1 week. cardiac activity measures approximately 173 bpm, without visualized arrhythmia. An approximately 2.5 cm simple cyst is again noted within the otherwise normal-appearing left ovary. The right ovary appears within normal limits. Equivalent blood flow is demonstrated on Doppler analysis. There is no significant free pelvic fluid, or other findings of concern identified. Ordering Provider: Venkat Lockwood FINAL REPORT Dictated: 09/23/2023 11:55 am Alejandro Cruz MD Signed (Electronic Signature): 09/23/2023 11:55 am Signed by: Alejandro Cruz MD Transcribed by: KIRK Technologist: CAMILLE Technical Comments LMP : 07/10/23 Technical Comments History 4 Para 1 SAB 2 Transabdominal Ultrasound Performed FHR (bpm) 173 Size = Dates Uterus Position Anteverted Normal [facility] C Urineon 08-29-2023 Bacteria identified Cx Nom (U) Microbiology PROCEDURE: Urine Culture [R1] SOURCE: U CleanCatch BODY SITE: COLLECTED DATE/TIME: 08/27/2023 09:55 EDT RECEIVED DATE/TIME: 08/27/2023 12:07 EDT START DATE/TIME: 08/27/2023 12:07 EDT FREE TEXT SOURCE: Osvaldo CHUNG, Hudson Camilo. Osvaldo CHUNG, Hudson Camilo. FINAL REPORTS Final Report [] Verified Date/Time: 08/29/2023 10:57 EDT 3,000 cfu/ml Mixed skin contaminants Performing Locations R1: This test was performed at: [facility], [address] [place] [address], [address] , , [facility] Comment on above: Performed By: #### 2 189802, [id number], 9246292, 3024259, 1672958, 9711806, 3371427 #### [facility] [address] [place] [address] ABO/Rhon 08-27-2023 ABO/Rh Positive Invalid Interpretation Code [facility] Comment on above: Performed By: #### 2 362160, 55744540, 8155934, 0143041, 2720351, 1088840, 6627103 #### [facility] [address] [place] [address] BLOOD BANKOrdered By: Liza Xavier on 08-27-2023 ABO/Rh Interp Positive Invalid Interpretation Code [facility] BB Subsection BMPon 08-27-2023 Anion gap [Moles/Vol] 11 mmol/L Normal 6-16 [facility] Comment on above: Performed By: #### 2 756907, 75797546, 8249275, 4283692, 7658988, 0652053, 7058953 #### [facility] [address] [place] [address] Calcium [Mass/Vol] 9.3 mg/dL Normal 8.9-11.1 [facility] Comment on above: Performed By: #### 2 090094, 22141795, 1442608, 7220632, 7380735, 4346419, 0304343 #### [facility] [address] [place] [address] Chloride [Moles/Vol] 104 mmol/L Normal 101-111 [facility] Comment on above: Performed By: #### 2 053563, 03451595, 4596825, 5404343, 8945564, 9673645, 7558011 #### [facility] [address] [place] [address] CO2 [Moles/Vol] 24 mmol/L Normal 21-31 [facility] Comment on above: Performed By: #### 2 785171, 76621027, 5618689, 2288520, 8410445, 8109213, 1890472 #### [facility] [address] [place] [address] Creatinine [Mass/Vol] 0.6 mg/dL Normal 0.5-1.3 [facility] Comment on above: Performed By: #### 2 070228, 95685254, 7013192, 5666225, 6341474, 1893735, 8863560 #### [facility] [address] [place] [address] Glucose [Mass/Vol] 87 mg/dL Normal 55-199 [facility] Comment on above: Performed By: #### 2 451248, 44726131, 5078100, 8060284, 2393079, 9564353, 1622986 #### [facility] [address] [place] [address] Potassium [Moles/Vol] 3.7 mmol/L Normal 3.5-5.3 [facility] Comment on above: Performed By: #### 2 039767, 71284853, 9412684, 1105668, 2909091, 5892172, 9416793 #### [facility] [address] [place] [address] Sodium [Moles/Vol] 135 mmol/L Normal 135-145 [facility] Comment on above: Performed By: #### 2 070439, 82837891, 3523365, 9946550, 5374017, 2902068, 8654446 #### [facility] [address] [place] [address] Urea nitrogen [Mass/Vol] 8 mg/dL Normal 5-21 [facility] Comment on above: Performed By: #### 2 523968, 71247100, 3320573, 4380637, 0433293, 0377494, 9025636 #### [facility] [address] [place] [address] Urea nitrogen/Creatinine [Mass ratio] 13 No Units Normal 10-20 [facility] Comment on above: Performed By: #### 2 340253, 16658206, 7697072, 7812922, 5217557, 1139554, 1896885 #### [facility] [address] [place] [address] BhCG Quanton 08-27-2023 [place] [address] m[IU]/mL High 1-3 [facility] Comment on above: Result Comment: 'F N ON < 1 - 3' ' 0.2 - 1 WEEK = 5 TO 50' ' 1 - 2 WEEKS = 50 - 500' ' 2 - 3 WEEKS = 100 - 5000' ' 3 - 4 WEEKS = 500 - 38504' ' 4 - 5 WEEKS = 1000 - 25571' ' 5 - 6 WEEKS = 08728 - 536979' ' 6 - 8 WEEKS = 15500 - 091006' ' 8 - 12 WEEKS = 00578 - 510476' Performed By: #### 2 195763, 35231156, 2009468, 0647606, 7807025, 3908252, 3482014 #### [facility] [address] [place] [address] CBC w/ Auto Diffon 4 Basophils/100 WBC (Bld) 0.6 % Normal 0.0-2.0 [facility] Comment on above: Performed By: #### 2 570867, 89119014, 4805023, 8717017, 6744441, 5191214, 2067240 #### [facility] [address] [place] [address] Basophils/Leukocytes Auto (Bld) [Pure # fraction] 0.0 E9/L Normal 0.0-0.2 [facility] Comment on above: Performed By: #### 2 032382, 80625173, 7472409, 6824957, 6690032, 1159818, 3299024 #### [facility] [address] [place] [address] Eosinophils (Bld) [#/Vol] 0.1 E9/L Normal 0.0-0.5 [facility] Comment on above: Performed By: #### 2 392188, 73872710, 3555404, 9951790, 4463490, 9790625, 8753208 #### [facility] [address] [place] [address] Eosinophils/100 WBC (Bld) 2.0 % Normal 0.0-8.0 [facility] Comment on above: Performed By: #### 2 300215, 23344282, 8824627, 9829008, 7318077, 0858408, 3912049 #### [facility] [address] [place] [address] Erythrocyte distribution width (RBC) [Ratio] 15.0 % High 10.9-14.2 [facility] Comment on above: Performed By: #### 2 891092, 73212069, 8925184, 4046116, 2298247, 8501717, 4679705 #### [facility] [address] [place] [address] Hematocrit (Bld) [Volume fraction] 37.4 % Normal 34.0-46.0 [facility] Comment on above: Performed By: #### 2 134007, 44879210, 7235250, 5193959, 1680102, 2934093, 4181141 #### [facility] [address] [place] [address] Hemoglobin (Bld) [Mass/Vol] 12.7 g/dL Normal 12.0-16.0 [facility] Comment on above: Performed By: #### 2 686444, 17141379, 8464200, 6138286, 7881272, 5258792, 3760422 #### [facility] [address] [place] [address] Lymphocytes (Bld) [#/Vol] 2.0 E9/L Normal 1.0-4.0 [facility] Comment on above: Performed By: #### 2 375574, 46489657, 7016992, 1871555, 5894545, 9999996, 0365489 #### [facility] [address] [place] [address] Lymphocytes/100 WBC (Bld) 28.1 % Normal 14.0-50.0 [facility] Comment on above: Performed By: #### 2 983420, 32692721, 2459440, 0597873, 0068754, 0826650, 2957187 #### [facility] [address] [place] [address] MCH (RBC) [Entitic mass] 28.4 pg Normal 27.0-34.0 [facility] Comment on above: Performed By: #### 2 221892, 41158857, 5855014, 9322994, 2635272, 1090686, 1541900 #### [facility] [address] [place] [address] MCHC (RBC) [Mass/Vol] 33.8 g/dL Normal 31.4-36.0 [facility] Comment on above: Performed By: #### 2 970988, 44238605, 4081253, 0029264, 7255995, 4033680, 1558215 #### [facility] [address] [place] [address] MCV (RBC) [Entitic vol] 84.0 fL Normal 80.0-100.0 [facility] Comment on above: Performed By: #### 2 473515, 49370062, 6499446, 8501262, 8235648, 2462844, 6587487 #### [facility] [address] [place] [address] Monocytes (Bld) [#/Vol] 0.5 E9/L Normal 0.2-1.0 [facility] Comment on above: Performed By: #### 2 127829, 00831144, 4928302, 7646346, 4696840, 2969163, 9770228 #### [facility] [address] [place] [address] Neutrophils (Bld) [#/Vol] 4.5 E9/L Normal 2.0-7.5 [facility] Comment on above: Performed By: #### 2 626363, 22457766, 3441790, 9429902, 3853865, 2047019, 8333765 #### [facility] [address] [place] [address] Neutrophils/100 WBC (Bld) 61.9 % Normal 36.0-75.0 [facility] Comment on above: Performed By: #### 2 743889, 46259638, 6561535, 6801354, 7741394, 7365719, 9062929 #### [facility] [address] [place] [address] Platelet mean volume (Bld) [Entitic vol] 7.9 fL Normal 6.4-10.8 [facility] Comment on above: Performed By: #### 2 404272, 68118416, 6908963, 8898597, 5414574, 6630402, 7968987 #### [facility] [address] [place] [address] Platelets (Bld) [#/Vol] 252.0 E9/L Normal 150.0-500.0 [facility] Comment on above: Performed By: #### 2 334678, 64292512, 0497727, 6668326, 7904131, 9393136, 1605245 #### [facility] [address] [place] [address] RBC (Bld) [#/Vol] 4.5 E12/L Normal 4.3-5.9 [facility] Comment on above: Performed By: #### 2 857148, 32225822, 1464597, 7941346, 8481484, 5962653, 5838666 #### [facility] [address] [place] [address] WBC corrected for nucl RBC Auto (Bld) [#/Vol] 7.2 E9/L Normal 4.0-11.0 [facility] Comment on above: Performed By: #### 2 676352, 14495469, 8627093, 3530410, 5049605, 2475585, 3900564 #### [facility] [address] [place] [address] CHEMISTRYOrdered By: SYSTEM SYSTEM on 08-27-2023 Anion gap [Moles/Vol] 11 mmol/L Normal 6 - 16 mEq/L R emisol Chem Calcium [Mass/Vol] 9.3 mg/dL Normal 8.9 - 11. 1 mg/dL [facility] Chloride [Moles/Vol] 104 mmol/L Normal 101 - 1 11 mmol/L [facility] CO2 [Moles/Vol] 24 mmol/L Normal 21 - 31 mmol/L [facility] Creatinine [Mass/Vol] 0.6 mg/dL Normal 0.5 - 1.3 mg/dL [facility] eGFR 131 mL/min/1.73 m2 Normal >=59mL/mi n/1 .73 m2 [facility] Glucose [Mass/Vol] 87 mg/dL Normal 55 - 199 mg/dL [facility] [address] m[IU]/mL High 1 - 3 mIU/mL [facility] Comment on above: Result Comment: 'F N ON < 1 - 3' ' 0.2 - 1 WEEK = 5 TO 50' ' 1 - 2 WEEKS = 50 - 500' ' 2 - 3 WEEKS = 100 - 5000' ' 3 - 4 WEEKS = 500 - 99267' ' 4 - 5 WEEKS = 1000 - 59174' ' 5 - 6 WEEKS = 38241 - 818139' ' 6 - 8 WEEKS = 69971 - 752643' ' 8 - 12 WEEKS = 68380 - 050517' Potassium [Moles/Vol] 3.7 mmol/L Normal 3.5 - 5.3 mmol/L [facility] Sodium [Moles/Vol] 135 mmol/L Normal 135 - 145 mmol/L [facility] Urea nitrogen [Mass/Vol] 8 mg/dL Normal 5 - 21 mg/d L [facility] Urea nitrogen/Creatinine [Mass ratio] 13 mg/mg Normal 10 - 20 [facility] Consent for Treatmenton 08-08 Consent for Treatment [id number] Normal [facility] Discharge Instructionson Discharge Instructions [id number] Normal [facility] ED Clinical Summaryon 2023 ED Clinical Summary [place] [id number] ED Clinical Summary Person Information Name: KAILYN ACKERMAN [facility] Age: 22 Years : 2000 Sex: Female Language: Uruguayan PCP: SELAM HUNTER CNP Marital Status: Single Phone: [phone] MRN: Visit Id: Visit Reason: Vaginal bleeding - < 20 wks ; VAG BLEEDING 7 WKS PREG Speciality: Acuity: 3 Enc Type: Emergency Med Service: Emergency Arrival: 08/27/2023 09:37:12 Discharge: 08/27/2023 12:34:11 LOS: 000 02:57 Checkin: 08/27/2023 09:37:12 Checkout: 08/27/2023 12:34:11 Dispo Type: Home (Routine DC) EVENTS: Event Name Event Status Request Date/Time Start Date/Time Complete Date/Time Arrive Complete 08/27/2023 09:37:12 08/27/2023 09:37:12 08/27/2023 09:37:12 Document Home Meds Request 08/27/2023 09:37:12 Triage Complete 08/27/2023 09:37:12 08/27/2023 09:49:20 08/27/2023 09:49:20 Bed Assign Complete 08/27/2023 09:39:35 08/27/2023 09:39:35 08/27/2023 09:39:35 Dr Exam Complete 08/27/2023 09:39:35 08/27/2023 09:42:20 08/27/2023 09:42:20 RN Exam Complete 08/27/2023 09:39:35 08/27/2023 09:51:27 08/27/2023 09:51:27 Registration Complete 08/27/2023 09:42:20 08/27/2023 09:42:49 08/27/2023 09:42:49 Dr Exam Complete 08/27/2023 09:42:35 08/27/2023 09:42:35 08/27/2023 09:42:35 Reg Complete Request 08/27/2023 09:42:49 Reg Bed Request Complete 08/27/2023 09:42:49 08/27/2023 09:42:49 08/27/2023 09:42:49 Pending Labs Cancel 08/27/2023 09:49:45 08/27/2023 09:59:29 Pending Labs Complete 08/27/2023 09:54:12 08/27/2023 10:04:37 08/27/2023 10:50:49 Lab Complete 08/27/2023 09:54:12 08/27/2023 10:50:49 Blood Collect Request 08/27/2023 09:54:12 US Complete 08/27/2023 09:54:12 08/27/2023 11:14:55 08/27/2023 11:54:38 Pending Labs Complete 08/27/2023 10:03:29 08/27/2023 10:03:29 08/27/2023 10:23:45 Lab Complete 08/27/2023 10:03:29 08/27/2023 10:03:29 08/27/2023 10:23:45 Pending Labs Complete 08/27/2023 10:04:02 08/27/2023 10:04:02 08/27/2023 10:04:03 Pending Labs Inlab 08/27/2023 10:18:07 08/27/2023 10:18:07 Lab Inlab 08/27/2023 10:18:07 08/27/2023 10:18:07 US Complete 08/27/2023 11:37:27 08/27/2023 11:37:50 08/27/2023 11:55:09 Discharge Complete 08/27/2023 12:05:13 08/27/2023 12:34:16 08/27/2023 12:34:16 Transfer Complete 08/27/2023 12:34:16 08/27/2023 12:34:16 08/27/2023 12:34:16 ADDRESS: [address] [place] [id number] PHYS DOC NOTES: MEDICAL INFORMATION: Prescriptions Given: Medications to Continue Taking That Have Changed [id number], [address] [place], [place] [id number], [phone] START: cephalexin (Keflex 500 mg Cap) 1 Capsules By Mouth every 6 hours for 7 Days. Refills: 0. Other Medications START: cephalexin (Keflex 500 mg Cap) 1 Capsules By Mouth every 12 hours. Refills: 0. Medications to Continue with No Changes Other Medications ethinyl estradiol-norethin drone (Microgestin /20 20 mcg-1 mg oral tablet) ondansetron (Zofran ODT 4 mg Tab-Dis) 1 Tablets By Mouth 3 times a day. Refills: 0. ondansetron (Zofran ODT 4 mg Tab-Dis) 1 Tablets By Mouth every 8 hours as needed Nausea/Vomiting. Refills: 0. PATIENT EDUCATION INFORMATION: Instructions: and Urinary Tract Infection; Urinary Tract Infection, Adult, Gtpi-ki-Cigd; Subchorionic Hematoma Follow up: With: Address: When: Juvenal THORPE [facility], [address] [place] [address] [place], [place] [id number] Business (1) In 3 days 08/30/2023 With: Address: When: [address], [place] [address] Business (1) In 3 days DIAGNOSIS: Other antepartum hemorrhage, unspecified trimester; Subchorionic bleed; UTI (urinary tract infection) during ; Vaginal bleeding in Normal [facility] ED Note-Physicianon 08-27-19 ED Note-Physician Basic Information Time Seen: Hudson Riley PA-C 08/27/2023 09:42 Chief Complaint patient had 1 episode of vaginal spotting that happened today. 7 weeks . denies abdominal cramping. Dr. Thorpe. hx two miscarriages History of Present Illness 22-year-old female reports to the emergency department chief complaint of episode of vaginal bleeding and spotting that happened today. Reports that she is 7 weeks . Reports that this is her fourth . 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 Does follow-up with Dr. Thorpe. Denies any abdominal pain with this, but is very concerned. Denies any fevers or chills. Denies any history of RhoGAM. She is G4, P1 Review of Systems A 10 point review of systems is negative except as noted above. Medical and Surgical History: Reviewed and noted Social history: Lives at home Family History: Reviewed. Tobacco: Denies Physical Exam Vitals & Measurements T: 37 ?C(Oral) HR: 77(Monitored) RR: 16 BP: 93/61 SpO2: 97% HT: 170 cm WT: 78.7 kg BMI: 27.23 General: The patient appears well and in no apparent distress. Patient is resting comfortably on bed. afebrile Skin: Warm, dry, no pallor noted. Head: Normocephalic, atraumatic Neck: No JVD Eye: PERRLA, EOMI ENT: Moist mucus membranes Cardiovascular: Regular rate normal peripheral perfusion Respiratory: No respiratory distress no accessory muscle use no obvious audible wheezing Chest Wall: no deformity Musculoskeletal: normal ROM, no deformity, no swelling GI: No obvious distention soft nontender nondistended no guarding rebounding or rigidity Neurological: A&O moves all extremities equal strength and symmetry Psychiatric: Cooperative and appropriate Medical Decision Making MEDICAL DECISION MAKING Number and Complexity of Problems Differential Diagnosis: [] [facility] Data External documents reviewed: [] My EKG interpretation: [] My CT interpretation: [] My X-ray interpretation: [] My Ultrasound interpretation: reviewed Decision rules/scores evaluated: [] Discussed with: [] Treatment and Disposition ED Course: 22-year-old female reports to the emergency department with chief complaint of vaginal bleeding. Reports that the very mild spotting happened this morning. Reports that she is about 7 weeks . Denies any belly pain. Reports history of miscarriage is concerned. Reports does follow with Dr. Thorpe. Exam the patient rather benign. Due to concerns, we did do lab work as well as urinalysis. Appears to have a UTI. Due to this, we will treat with Keflex. We did ultrasound as well, that shows single live and urine . There was also a subchorionic hemorrhage. Patient not having any active bleeding currently though. Due to this, discussed not lifting any thing over 15 pounds, as well as pelvic rest, with no sex. Discussed follow-up with Dr. Thorpe. Patient understanding. Discussed return precautions. Follow-up with your primary care provider in 3 to 5 days. If symptoms worsen, do not improve, or new symptoms arise please report back to emergency department for further evaluation. The patient was understanding and agreeable to plan moving forward. Shared decision making: [] Code status: [] Assessment/Plan Other antepartum hemorrhage, unspecified trimester (O46.8X9: Other antepartum hemorrhage, unspecified trimester) Subchorionic bleed (O41.8X90: Other specified disorders of amniotic fluid and membranes, unspecified trimester, not applicable or unspecified) UTI (urinary tract infection) during (O23.40: Unspecified infection of urinary tract in , unspecified trimester) Vaginal bleeding in (O46.90: Antepartum hemorrhage, unspecified, unspecified trimester) Orders: cephalexin, 500 mg = 1 cap(s), Oral, q6hr, X 7 day(s), # 28 cap(s), Refills(s) 0, Pharmacy: [facility], 170, cm, 08/27/23 9:49:00 EDT, Height/Length Dosing, 78.7, kg, 08/27/23 9:49:00 EDT, Weight Dosing ABO/Rh Basic Metabolic Panel Beta hCG Quantitative CBC w/ Auto Diff eGFR Extra Blue Tube Extra SST Tube UA with Cult Rflx Urine Culture US 1st Trimester US Transvaginal Disposition Plan Patient Discharge Condition Stable Discharge Disposition To home Discharge Prescription List Prescriptions Keflex 500 mg Cap, 500 mg= 1 cap(s), Oral, q6hr Follow-up With When Contact Information Juvenal THORPE In 3 days 08/30/[address] [place] [address]- Business (1) Additional Instructions: SELAM HUNTER In 3 days [address] [place] [address]- Business (1) Additional Instructions: Patient Education and Urinary Tract Infection Urinary Tract Infection, Adult, Lzqp-bg-Vesq Subchorionic Hematoma Attestation Patient seen and evaluated by the physician safety admin assistant. Attending physician was present in the emergency department and s (more content not included)... Normal [facility] Comment on above: Result Comment: Elec tronically Signed By: Hudson Riley PA-C\.br\Date and Time Signed: 08/27/23 13:49 EDT\.br\Electronically Co-Signed By: Emily Harper M.D.\.br\Date and Time Co-Signed: 08/27/23 14:25 EDT ED Patient Education Noteon 08-27-2023 ED Patient Education Note Obstetrics and Gynecology and Urinary Tract Infection A urinary tract infection (UTI) is an infection of any part of the urinary tract. This includes the kidneys, the tubes that connect the kidneys to the bladder (ureters), the bladder, and the tube that carries urine out of the body (urethra). These organs make, store, and get rid of urine in the body. Your health care provider may use other names to describe the infection. An upper UTI affects the ureters and kidneys (pyelonephritis). A lower UTI affects the bladder (cystitis) and urethra (urethritis). Most UTIs are caused by bacteria in the genital area, around the entrance to the urinary tract. These bacteria grow and cause irritation and inflammation of the urinary tract. You are more likely to develop a UTI during because: ? The physical and hormonal changes that your body goes through make it easier for bacteria to get into your urinary tract. ? Your growing baby puts pressure on your bladder and can affect urine flow. women with diabetes are at an increased risk for developing a UTI. It is important to recognize and treat UTIs in because they can cause serious complications for both you and your baby. How does this affect me? Symptoms of a UTI include: ? Needing to urinate right away (urgently) and often, even if urinating a small amount. ? Pain, burning, or having a hard time passing urine. ? Blood in the urine. ? Unusual, cloudy, and bad-smelling urine. ? Pain in the abdomen or lower back. ? Vaginal discharge. You may also have: ? Vomiting or a decreased appetite. ? Confusion. ? Irritability or tiredness. ? A fever. ? Diarrhea. ? A low level of red blood cells (anemia). ? The development of high blood pressure during (preeclampsia). How does this affect my baby? An untreated UTI during could lead to a kidney infection or an infection throughout the mother's body (systemic infection). This can cause health problems and affect the baby. Possible complications of an untreated UTI include: ? Your baby being born before 37 weeks of (premature). ? Your baby being born with a low weight. ? Your baby having a higher risk of having his or her skin or the white parts of the eyes turn yellow (jaundice). What can I do to lower my risk? To prevent a UTI: ? Do not hold urine for long periods of time. Empty your bladder as soon as you feel the urge. ? Always wipe from front to back, especially after a bowel movement. Use each tissue one time when you wipe. ? Empty your bladder after sex. ? Keep your genital area dry. ? Drink 6 to 8 glasses of water each day. ? Do not douche or use deodorant sprays. ? Wear cotton underwear and loose clothing. How is this treated? Treatment for this condition may include: ? Antibiotic medicines that are safe to take during . ? Other medicines to treat less common causes of UTI. Follow these instructions at home: ? If you were prescribed an antibiotic medicine, take it as told by your health care provider. Do not stop using the antibiotic even if you start to feel better. ? Keep all follow-up visits. This is important. Contact a health care provider if: ? Your symptoms do not improve or they get worse. ? You have abnormal vaginal discharge. Get help right away if you: ? Have a fever. ? Have nausea and vomiting. ? Have back or side pain. ? Have lower belly pain, tightness, or feel contractions in your uterus. ? Have a gush of fluid from your vagina. ? Have blood in your urine. Summary ? A UTI is an infection of any part of the urinary tract, which includes the kidneys, ureters, bladder, and urethra. ? Most urinary tract infections are caused by bacteria in your genital area, around the entrance to your urinary tract (urethra). ? You are more likely to develop a UTI during . It is important to recognize and treat UTIs in because of the risk of serious complications for both you and your baby. ? If you were prescribed an antibiotic medicine, take it as told by your health care provider. Do not stop using the antibiotic even if you start to feel better. This information is not intended to replace advice given to you by your health care provider. Make sure you discuss any questions you have with your health care provider. Document Revised: 01/09/2022 Document Reviewed: 01/09/2022 [employer] Patient Education ? 2022 charity: water. Urinary Tract Infection, Adult A urinary tract infection (UTI) is an infection of any part of the urinary tract. The urinary tract includes: ? The kidneys. ? The ureters. ? The bladder. ? The urethra. These organs make, store, and get rid of pee (urine) in the body. What are the causes? This infection is caused by germs (bacteria) in your genital area. These germs grow and cause swelling (inflammation) (more content not included)... Normal [facility] ED Patient Summaryon 024 ED Patient Summary [address] [address] Patient Discharge Instructions Person Information Name: KAILYN ACKERMAN Age: 22 Years Arrival Date: 08/27/2023 09:37:12 Discharge Diagnosis: Other antepartum hemorrhage, unspecified trimester; Subchorionic bleed; UTI (urinary tract infection) during ; Vaginal bleeding in Primary Care Physician: SELAM HUNTER CNP Provider Information Primary Provider: Emily Harper M.D. Advanced Research Instructor:None The exam and treatment you received in the Emergency Department were for an urgent problem and are not intended as complete care. It is important that you follow up with a doctor, nurse practitioner, or physician?s safety admin assistant for ongoing care. If your symptoms become worse or you do not improve as expected and you are unable to reach your usual health care provider, you should return to the Emergency Department. We are available 24 hours a day. KAILYN ACKERMAN has been given the following list of patient education materials, prescriptions and follow-up instructions: Follow-up Instructions: With: Address: When: Juvenal ASHIA [facility], [address] [place] [address] [place] [address] Business (1) In 3 days 08/30/2023 With: Address: When: SELAM HUNTER [facility] [place] [address] Business (1) In 3 days In the event that this physician does not participate in your insurance network, please consult with your insurance company to find a nearby participating provider. Patient Education Materials: and Urinary Tract Infection; Urinary Tract Infection, Adult, Kqhw-yw-Oltu; Subchorionic Hematoma A MESSAGE TO ALL PATIENTS REGARDING OPIOIDS PRESCRIPTION OPIOIDS: WHAT YOU NEED TO KNOW Prescription opioids can be used to help relieve pztnnxbd-oi-oxuayt pain and are often prescribed following a surgery or injury, or for certain health conditions. These medications can be an important part of the treatment but also come with serious risks. It is important to work with your healthcare provider to make sure you are getting the safest, most effective care. WHAT ARE THE RISKS AND SIDE EFFECTS OF OPIOID USE? Prescription opioids carry serious risks of addiction and overdose, especially with prolonged use. An opioid overdose, often marked by slowed breathing, can cause sudden . The use of prescription opioids can have a number of side effects as well, even when taken as directed: ? Tolerance?meaning you might need to take more of the medication for the same pain relief ? Physical dependence?meaning you have symptoms of withdrawal when a medication is stopped ? Increased sensitivity to pain ? Constipation ? Nausea, vomiting, and dry mouth ? Sleepiness and dizziness ? Confusion ? Depression ? Low levels of testosterone that can result in lower sex drive, energy, and strength ? Itching and sweating RISKS ARE GREATER WITH: ? History of drug misuse, substance use disorder, or overdose ? Mental health conditions (such as depression or anxiety) ? Sleep apnea ? Older age (65 years and older) ? Avoid alcohol while taking prescription opioids. Also, unless specifically advised by your health care provider, medications to avoid include: ? Benzodiazepines (such as Xanax or Valium) ? Muscle relaxants (such as Soma or Flexeril) ? Hypnotics (such as Ambien or Lunesta) ? Other prescription opioids KNOW YOUR OPTIONS Talk to your health care provider about ways to manage your pain that don?t involve prescription opioids. Some of these options may actually work better and have fewer risks and side effects. Options may include: ? Pain relievers such as acetaminophen, ibuprofen, and naproxen ? Some medication that are also used for depression or seizures ? Physical therapy and exercise ? Cognitive behavioral therapy, a psychological, goal-directed approach, in which patients learn how to modify physical, behavioral, and emotional triggers of pain and stress. IF YOU ARE PRESCRIBED OPIOIDS FOR PAIN: ? Never take opioids in greater amounts or more often than prescribed. ? Follow up with your primary health care provider. o Work together to create a plan on how to manage your pain. o Talk about ways to help manage your pain that don?t involve prescription opioids. o Talk about any and all concerns and side effects. ? Help prevent misuse and abuse o Never sell or share prescription opioids. o Never use another person?s prescription opioids. ? Store prescription opioids in a secure place and out of reach of others (this may include visitors, children, friends, and family). ? Safely dispose of unused prescription opioids: Find your community drug take-back program or your pharmacy mail-back program, or flush them down the toilet, follo (more content not included)... Normal [facility] HEMATOLOGYOrdered By: SYSTEM SYSTEM on 08-27-2023 Basophils/100 WBC (Bld) 0.6 % Normal 0.0 - 2.0 % [facility] Basophils/Leukocytes Auto (Bld) [Pure # fraction] 0.0 E9/L Normal 0.0 - 0.2 E9/L [facility] Eosinophils (Bld) [#/Vol] 0.1 E9/L Normal 0.0 - 0.5 E9/L [facility] Eosinophils/100 WBC (Bld) 2.0 % Normal 0.0 - 8.0 % [facility] Erythrocyte distribution width (RBC) [Ratio] 15.0 % High 10.9 - 14.2 % [facility] Hematocrit (Bld) [Volume fraction] 37.4 % Normal 34.0 - 46.0 % [facility] Hemoglobin (Bld) [Mass/Vol] 12.7 g/dL Normal 12.0 - 16.0 gm/dL [facility] Lymphocytes (Bld) [#/Vol] 2.0 E9/L Normal 1.0 - 4.0 E9/L [facility] Lymphocytes/100 WBC (Bld) 28.1 % Normal 14.0 - 50.0 % [facility] MCH (RBC) [Entitic mass] 28.4 pg Normal 27. 0 - 34.0 pg [facility] MCHC (RBC) [Mass/Vol] 33.8 g/dL Normal 31.4 - 36.0 gm/dL [facility] MCV (RBC) [Entitic vol] 84.0 fL Normal 80.0 - 100.0 fL [facility] Monocytes (Bld) [#/Vol] 0.5 E9/L Normal 0.2 - 1.0 E9/L [facility] Monocytes/100 WBC (Bld) 7.4 % Normal 4.0 - 14.0 % [facility] Neutrophils (Bld) [#/Vol] 4.5 E9/L Normal 2.0 - 7.5 E9/L [facility] Neutrophils/100 WBC (Bld) 61.9 % Normal 36.0 - 75.0 % [facility] Platelet mean volume (Bld) [Entitic vol] 7.9 fL Normal 6.4 - 10.8 fL [facility] Platelets (Bld) [#/Vol] 252.0 E9/L Normal 150. 0 - 500.0 E9/L [facility] RBC (Bld) [#/Vol] 4.5 E12/L Normal 4.3 - 5.9 E12/L [facility] WBC corrected for nucl RBC Auto (Bld) [#/Vol] 7.2 E9/L Normal 4.0 - 11.0 E9/L [facility] UA with Cult Rflxon 08-27-19 Color (U) Light-Yellow Normal Yellow [facility] Comment on above: Result Comment: Micr oscopic readings are only performed on those samples that meet specific criteria set forth by [facility]. Performed By: #### 2 [id number], [id number], 2826128, 5056538, 3816082, 7936417, 4536923 #### [facility] [address] [place] [address] Glucose (U) [Mass/Vol] Negative Normal Negative [facility] Comment on above: Performed By: #### 2 882534, [id number], 8309887, 6066150, 8494724, 7119162, 5248725 #### [facility] [address] [place] [address] Ketones Ql (U) Negative Normal Negative [facility] Comment on above: Performed By: #### 2 928567, 83238980, 0533273, 7875026, 4727506, 4024230, 9538147 #### [facility] [address] [place] [address] UA Blood 3+ Abnormal Negative [facility] Comment on above: Performed By: #### 2 103834, 91913605, 0132317, 7307070, 0842724, 5677407, 2765454 #### [facility] [address] [place] [address] UA Bacteria 1+ [id number] Abnormal Trace [facility] Comment on above: Performed By: #### 2 603244, 47291712, 4264812, 3921757, 9705558, 9148536, 1288291 #### [facility] [address] [place] [address] UA Clarity Turbid Abnormal Clear [facility] Comment on above: Performed By: #### 2 800875, 58920151, 3596072, 1611944, 4985856, 4001429, 3540655 #### [facility] [address] [place] [address] UA Hyal Cast 0-3 Normal 0-3 [facility] Comment on above: Performed By: #### 2 536016, 03373575, 4640911, 7472026, 8490373, 5285164, 3574719 #### [facility] [address] [place] [address] UA Leuk Est 250 Stefania/uL Abnormal Negative [facility] Comment on above: Performed By: #### 2 913744, 96361917, 7541451, 9811535, 2698797, 0771596, 0911310 #### [facility] [address] [place] [address] UA Mucous Trace Normal Negative [facility] Comment on above: Performed By: #### 2 499316, 04197642, 3277142, 4926942, 6901156, 9016270, 9052901 #### [facility] [address] [place] [address] UA Nitrite Negative Normal Negative [facility] Comment on above: Performed By: #### 2 249865, 06300680, 7811655, 7991454, 9754618, 4016035, 9669428 #### [facility] [address] [place] [address] UA pH 5.5 Invalid Interpretation Code 5.0-9.0 [facility] Comment on above: Performed By: #### 2 431988, 47585947, 5796508, 2779651, 4756683, 6176796, 1459004 #### [facility] [address] [place] [address] UA Protein 1+ mg/dL Abnormal Negative [facility] Comment on above: Performed By: #### 2 840123, 80261839, 3913410, 4257178, 3987282, 1646937, 6696688 #### [facility] [address] [place] [address] UA RBC 4-20 Abnormal 0-3 [facility] Comment on above: Performed By: #### 2 389420, 16009991, 6674575, 3896598, 2459435, 0248415, 0676809 #### [facility] [address] [place] [address] UA Spec Grav 1.018 Invalid Interpretation Code 1.005-1.030 [facility] Comment on above: Performed By: #### 2 235520, 33712865, 6227596, 2807186, 4381182, 6898734, 0295329 #### [facility] [address] [place] [address] UA Squam Epithelial 3-4 Abnormal 0-2 Fish r [facility] Comment on above: Performed By: #### 2 577505, 84506498, 1199421, 3383479, 9469982, 1809547, 5318799 #### [facility] [address] [place] [address] UA Urobilinogen Negative Normal Negative [facility] Comment on above: Performed By: #### 2 522960, 23707675, 3999739, 7908701, 5942603, 5830678, 8355070 #### [facility] [address] [place] [address] UA WBC 6-15 Abnormal 0-5 [facility] Comment on above: Performed By: #### 2 987723, 93012872, 8782350, 6894576, 4782042, 8896162, 9245676 #### [facility] [address] [place] [address] Urobilinogen (U) [Mass/Vol] Negative Normal Negative [facility] Comment on above: Performed By: #### 2 102557, 28708896, 2423052, 6476941, 1765391, 9822260, 0036728 #### [facility] [address] [place] [address] UA Spec Desc Clean Catch Normal [facility] Comment on above: Performed By: #### 2 451363, 41724585, 0895976, 4700121, 0273137, 3908297, 8704474 #### [facility] [address] [place] [address] URINALYSISOrdered By: SYSTEM SYSTEM on 08-27-2023 Color (U) Light-Yellow 1 (08/27/23 9:55 AM) Normal Yellow [facility] UA Auto SS Comment on above: Interpretive Data: M icroscopic readings are only performed on those samples that meet specific criteria set forth by [facility]. Glucose (U) [Mass/Vol] Negative Normal Negat ivemg/d L [facility] UA Auto SS Ketones Ql (U) Negative Normal Negativemg/d L [facility] UA Auto SS UA Bacteria 1+ graded/HPF Invalid Interpretation Code Tracegraded/ HPF [facility] UA Auto SS UA Blood 3+ *ABN* (08/27/23 9:55 AM) Invalid Interpretation Code Negative [facility] UA Auto SS UA Clarity Turbid *ABN* (08/27/23 9:55 AM) Invalid Interpretation Code Clear [facility] UA Auto SS UA Hyal Cast 0-3 graded/LPF Normal 0-3graded/LP F [facility] UA Auto SS UA Leuk Est 250 Stefania/uL Stefania/uL Invalid Interpretation Code NegativeLeu/ uL [facility] UA Auto SS UA Mucous Trace graded/LPF Normal Negativegra d ed/LPF [facility] UA Auto SS UA Nitrite Negative Normal Negativemg/d L [facility] UA Auto SS UA pH 5.5 *NA* (08/27/23 9:55 AM) Invalid Interpretation Code 5.0 - 9.0 [facility] UA Auto SS UA Protein 1+ mg/dL Invalid Interpretation Code Negativemg/d L [facility] UA Auto SS UA RBC 4-20 graded/HPF Invalid Interpretation Code 0-3graded/HP F [facility] UA Auto SS UA Spec Grav 1.018 *NA* (08/27/23 9:55 AM) Invalid Interpretation Code 1.005 - 1.030 [facility] UA Auto SS UA Squam Epithelial 3-4 graded/HPF Invalid Interpretation Code 0-2graded/HP F [facility] UA Auto SS UA Urobilinogen Negative Normal Negativemg/d L [facility] UA Auto SS UA WBC 6-15 graded/HPF Invalid Interpretation Code 0-5graded/HP F [facility] UA Auto SS Urobilinogen (U) [Mass/Vol] Negative Normal Negativemg/d L [facility] UA Auto SS URINALYSISOrdered By: Hudson munoz on 08-27-2023 UA Spec Desc Clean Catch (08/27/23 9:55 AM) Normal [facility] UA Auto SS US 1st Trimesteron 08-27-2023 US 1st Trimester Exam Date/Time: 08/27/2023 11:54 EDT Reason for Exam: Other (please specify) Report [facility] [phone] IMPRESSION: Single live intrauterine with estimated sonographic gestational age 6 weeks, 2 days. Multiple left ovarian cysts, with largest corpus luteal cyst measuring 3.4 x 3.5 x 4 cm. Subchorionic hemorrhage measuring 3.7 x 3.8 x 2.4 cm. CLINICAL HISTORY: Bleeding. . COMMENT: Transabdominal and transvaginal images were obtained. The uterus measurements and an estimated volume are: Uterus Length: 10.1 cm Uterus Width: 6.2 cm Uterus Height: 5.1 cm Uterus Volume: 169.7 cm3 Single live intrauterine The heart rate is measured at 120 bpm. [place]-rump length 4.77 mm. Estimated sonographic gestational age 6 weeks, 2 days. Gestational age by dates 6 weeks, 6 days. Estimated sonographic date of delivery April 19, 2024. 3.7 x 3.8 x 2.4 cm complex subchorionic area identified. The right ovary measurements and estimated volume are: Right Ovary Length: 3.2 cm Right Ovary Width: 1.5 cm Right Ovary Height: 2.9 cm Right Ovary Volume: 7.6 cm3 The left ovary measurements and estimated volume are: Left Ovary Length: 5.5 cm Left Ovary Width: 5.3 cm Left Ovary Height: 5.0 cm Left Ovary Volume: 75.8 cm3 Several left ovarian cysts, largest measuring 3.4 x 3.5 x 4.0 cm. No free fluid. Report No adnexal masses. Ordering Provider: Hudson Riley FINAL REPORT Dictated: 08/27/2023 12:31 pm Zach Deng MD Signed (Electronic Signature): 08/27/2023 12:31 pm Signed by: Zach Deng MD Transcribed by: KIRK Technologist: SHELLEY Technical Comments LMP : 07/10/2023 Regular History 4 Para 1 Transabdominal Ultrasound Performed Transvaginal Ultrasound Performed FHR (bpm) 120 Normal [facility] US Transvaginalon 08-27-2023 US Transvaginal Exam Date/Time: 08/27/2023 11:55 EDT Reason for Exam: Other (please specify) Report [facility] [phone] Please see ultrasound pelvis, for report of transvaginal examination. Ordering Provider: Hudson Riley FINAL REPORT Dictated: 08/27/2023 12:33 pm Zach Deng MD Signed (Electronic Signature): 08/27/2023 12:33 pm Signed by: Zach Deng MD Transcribed by: KIRK Technologist: SHELLEY Normal [facility] eGFRon 08-27-2023 eGFR 131 mL/min/1.73 m2 Normal >=59 [facility] Comment on above: Order Comment: Order Added by Discern Expert. Performed By: #### 2 [id number], [id number], 1821444, 7908257, 1088530, 9505076, 3237520 #### [facility] [address] [place] [address] [facility] Quanton 08-19-2023 HCG.beta subunit Qn 4261 m[IU]/mL High 1-3 [facility] Comment on above: Result Comment: 'F N ON < 1 - 3' ' 0.2 - 1 WEEK = 5 TO 50' ' 1 - 2 WEEKS = 50 - 500' ' 2 - 3 WEEKS = 100 - 5000' ' 3 - 4 WEEKS = 500 - 72379' ' 4 - 5 WEEKS = 1000 - 31373' ' 5 - 6 WEEKS = 42869 - 266374' ' 6 - 8 WEEKS = 57432 - 755820' ' 8 - 12 WEEKS = 95347 - 627767' Performed By: #### 2 856378, 52007687, 9045980, 9067686, 2296595, 9636802, 9651516 #### [facility] [address] [place] [address] Physician Orderon 08-19-2023 Physician Order [id number] Normal [facility] C Urineon 01-05-2023 Bacteria identified Cx Nom (U) Microbiology PROCEDURE: Urine Culture [R1] SOURCE: U CleanCatch BODY SITE: COLLECTED DATE/TIME: 01/03/2023 22:52 EDT RECEIVED DATE/TIME: 01/03/2023 23:34 EDT START DATE/TIME: 01/03/2023 23:34 EDT FREE TEXT SOURCE: Jesús Lopez DO, DO, Jesús Trujillo. FINAL REPORTS Final Report [] Verified Date/Time: 01/05/2023 07:22 EDT <10,000 cfu/ml Mixed skin contaminants Performing Locations R1: This test was performed at: [facility], [address] [place] [address], [id number], Normal [facility] Comment on above: Performed By: #### 2 337492, 90014748, 7082524, 9570776, 1278895, 0416428, 2658241 #### [facility] [address] [place] [address] Auto Diffon 01-04-2023 Basophils/100 WBC (Bld) 0.3 % Normal 0.0-2.0 F [facility] Comment on above: Order Comment: Order Added by Discern Expert. Performed By: #### 2 673055, 75693601, 2806908, 4871131, 1400769, 0723603, 5565399 #### [facility] [address] [place] [address] Basophils/Leukocytes Auto (Bld) [Pure # fraction] 0.1 E9/L Normal 0.0-0.2 [facility] Comment on above: Order Comment: Order Added by Discern Expert. Performed By: #### 2 899383, 98949986, 9391024, 8152171, 5315760, 5226420, 1168805 #### [facility] [address] [place] [address] Eosinophils/100 WBC (Bld) 0.3 % Normal 0.0-8.0 [facility] Comment on above: Order Comment: Order Added by Discern Expert. Performed By: #### 2 671236, 34483868, 5111498, 0966373, 7117894, 3678762, 3185844 #### [facility] [address] [place] [address] Eosinophils/Leukocytes Auto (Bld) [Pure # fraction] 0.0 E9/L Normal 0.0-0.5 [facility] Comment on above: Order Comment: Order Added by Discern Expert. Performed By: #### 2 008278, 07499071, 6469191, 0477868, 7919181, 3707349, 0988460 #### [facility] [address] [place] [address] Lymphocytes/100 WBC (Bld) 7.5 % Low 14.0-50.0 [facility] Comment on above: Order Comment: Order Added by Discern Expert. Performed By: #### 2 581255, 41629535, 1384250, 4672963, 1214045, 6994374, 2168432 #### [facility] [address] [place] [address] Lymphocytes/Leukocytes Auto (Bld) [Pure # fraction] 1.3 E9/L Normal 1.0-4.0 [facility] Comment on above: Order Comment: Order Added by Discern Expert. Performed By: #### 2 916545, 94343991, 3775857, 7308451, 8591380, 1380022, 8480530 #### [facility] [address] [place] [address] Monocytes/100 WBC (Bld) 5.7 % Normal 4.0-14.0 [facility] Comment on above: Order Comment: Order Added by Jeronimo Expert. Performed By: #### 2 600016, 66397649, 4648718, 4327527, 7234524, 1027962, 7973349 #### [facility] [address] [place] [address] [place] [address] Monocytes/Leukocytes Auto (Bld) [Pure # fraction] 1.0 E9/L Normal 0.2-1.0 [facility] Comment on above: Order Comment: Order Added by Discern Expert. Performed By: #### 2 322995, 92643668, 0822251, 9071867, 9572882, 6681837, 3332879 #### [facility] [address] [place] [address] Neutrophils/100 WBC (Bld) 86.2 % High 36.0-75.0 [facility] Comment on above: Order Comment: Order Added by Discern Expert. Performed By: #### 2 532313, 09973477, 9042656, 1868735, 8071004, 7902603, 0482168 #### [facility] [address] [place] [address] Neutrophils/Leukocytes Auto (Bld) [Pure # fraction] 14.6 E9/L High 2.0-7.5 [facility] Comment on above: Order Comment: Order Added by Discern Expert. Performed By: #### 2 672036, 62413076, 0569916, 4962429, 0512255, 0275973, 1675915 #### [facility] [address] [place] [address] BMPon 01-04-2023 Anion gap [Moles/Vol] 11 mmol/L Normal 6-16 [facility] Comment on above: Performed By: #### 2 061237, 29920207, 7959983, 1645284, 4373355, 6762314, 3866647 #### [facility] [address] [place] [address] Calcium [Mass/Vol] 9.0 mg/dL Normal 8.9-11.1 [facility] Comment on above: Performed By: #### 2 735338, 66494807, 3922224, 8044829, 9042834, 0070856, 7805618 #### [facility] [address] [place] [address] Chloride [Moles/Vol] 106 mmol/L Normal 101-111 [facility] Comment on above: Performed By: #### 2 034125, 19342418, 8864887, 2191246, 6496312, 3309888, 4499241 #### [facility] [address] [place] [address] CO2 [Moles/Vol] 23 mmol/L Normal 21-31 [facility] Comment on above: Performed By: #### 2 426146, 86970158, 2968956, 9071600, 2852149, 5751914, 7691584 #### [facility] [address] [place] [address] Creatinine [Mass/Vol] 0.8 mg/dL Normal 0.5-1.3 [facility] Comment on above: Performed By: #### 2 514983, 30211666, 7668730, 1988590, 3149358, 2577829, 1522478 #### [facility] [address] [place] [address] Glucose [Mass/Vol] 101 mg/dL Normal 55-199 [facility] Comment on above: Result Comment: If t his glucose result represents a fasting glucose, interpretation should refer to the following reference range: 55-99 mg/dL Performed By: #### 2 143703, 08937900, 9157138, 0806663, 6909916, 2917918, 3833562 #### [facility] [address] [place] [address] Potassium [Moles/Vol] 3.5 mmol/L Normal 3.5-5.3 [facility] Comment on above: Performed By: #### 2 469516, 69744523, 3351041, 9305395, 2104956, 7679295, 9833529 #### [facility] [address] [place] [address] Sodium [Moles/Vol] 136 mmol/L Normal 135-145 [facility] Comment on above: Performed By: #### 2 320507, 08259616, 7987888, 3722826, 9015262, 8931333, 9885599 #### [facility] [address] [place] [address] Urea nitrogen [Mass/Vol] 10 mg/dL Normal 5-21 [facility] Comment on above: Performed By: #### 2 835341, 65938052, 7908394, 4523104, 7628565, 6702467, 3851080 #### [facility] [address] [place] [address] Urea nitrogen/Creatinine [Mass ratio] 12 No Units Normal 10-20 [facility] Comment on above: Performed By: #### 2 351955, 30042303, 1012650, 9728825, 8328312, 2108264, 1279741 #### [facility] [address] [place] [address] [facility] Quanton 01-04-2023 HCG.beta subunit Qn 1572 m[IU]/mL High 1-3 [facility] Comment on above: Result Comment: GEST ATIONAL AGE HCG RANGE (mIU/mL) NON- <1-3 0.2-1 WEEKS 5-50 1-2 WEEKS 50-500 2-3 WEEKS 100-5,000 3-4 WEEKS 500-10,000 4-5 WEEKS 1,000-50,000 5-6 WEEKS 10,000-100,000 6-8 WEEKS 15,000-200,000 8-12 WEEKS 10,000-100,000 Performed By: #### 2 573343, 10084186, 4380009, 1135022, 1841714, 8902221, 9581853 #### [facility] [address] [place] [address] CBC w/ Auto Diffon Erythrocyte distribution width (RBC) [Ratio] 15.9 % High 10.9-14.2 [facility] Comment on above: Performed By: #### 2 821227, 32006922, 7668795, 4677848, 6851400, 7246246, 4289846 #### [facility] [address] [place] [address] Hematocrit (Bld) [Volume fraction] 33.8 % Low 34.0-46.0 [facility] Comment on above: Performed By: #### 2 054502, 92371937, 4239538, 0378624, 1536372, 5178974, 1308948 #### [facility] [address] [place] [id number] Hemoglobin (Bld) [Mass/Vol] 11.3 g/dL Low 12.0-16.0 [facility] Comment on above: Performed By: #### 2 238786, 35363992, 3501833, 4280377, 3700056, 7446723, 8836814 #### [facility] [address] [place] [id number] MCH (RBC) [Entitic mass] 26.7 pg Low 27.0-34.0 [facility] Comment on above: Performed By: #### 2 204835, 26007654, 1208906, 6312365, 2581581, 5519176, 4051465 #### [facility] [address] [place] [address] MCHC (RBC) [Mass/Vol] 33.4 g/dL Normal 31.4-36.0 [facility] Comment on above: Performed By: #### 2 956716, 33879390, 3309652, 0523926, 0105165, 4952187, 5208309 #### [facility] [address] [place] [address] MCV (RBC) [Entitic vol] 80.1 fL Normal 80.0-100.0 F [facility] Comment on above: Performed By: #### 2 537348, 92551590, 4306972, 6274853, 8861634, 2802781, 3688118 #### [facility] [address] [place] [address] Platelet mean volume (Bld) [Entitic vol] 7.6 fL Normal 6.4-10.8 [facility] Comment on above: Performed By: #### 2 944077, 72003000, 6049148, 0219724, 4940694, 9923178, 3505901 #### [facility] [address] [place] [address] Platelets (Bld) [#/Vol] 237.0 E9/L Normal 150.0-500.0 [facility] Comment on above: Performed By: #### 2 166242, 42681923, 0797602, 3298818, 4364822, 9192688, 4278522 #### [facility] [address] [place] [address] RBC (Bld) [#/Vol] 4.2 E12/L Low 4.3-5.9 [facility] Comment on above: Performed By: #### 2 813468, 95528003, 1087092, 0778960, 5953922, 1456022, 4186373 #### [facility] [address] [place] [address] WBC corrected for nucl RBC Auto (Bld) [#/Vol] 16.9 E9/L High 4.0-11.0 [facility] Comment on above: Performed By: #### 2 149282, 27690239, 1069254, 0223962, 3516566, 1064687, 3202975 #### [facility] [address] [place] [address] Consent for Treatmenton 12-08 Consent for Treatment [id number]:127 Normal [facility] Discharge Instructionson Discharge Instructions [id number]:127 Normal [facility] ED Clinical Summaryon 2022 ED Clinical Summary [address] [address] ED Clinical Summary Person Information Name: KAILYN ACKERMAN [facility] Age: 22 Years : 2000 Sex: Female Language: Uruguayan PCP: NONE, XXXX Marital Status: Single Phone: [phone] MRN: Visit Id: Visit Reason: Throat pain - Adult; Fever; Back pain; Body aches; SORE THROAT, BACK PAIN, FEVER 4 WEEKS Speciality: Acuity: 3 Enc Type: Emergency Med Service: Emergency Arrival: 01/03/2023 22:30:29 Discharge: 01/04/2023 00:12:55 LOS: 000 01:42 Checkin: 01/03/2023 22:30:29 Checkout: 01/04/2023 00:12:55 Dispo Type: Home (Routine DC) EVENTS: Event Name Event Status Request Date/Time Start Date/Time Complete Date/Time Arrive Complete 01/03/2023 22:30:29 01/03/2023 22:30:29 01/03/2023 22:30:29 Document Home Meds Request 01/03/2023 22:30:29 Triage Complete 01/03/2023 22:30:29 01/03/2023 22:44:50 01/03/2023 22:44:50 Dr Exam Complete 01/03/2023 22:36:11 01/03/2023 22:36:11 01/03/2023 22:36:11 Registration Complete 01/03/2023 22:36:11 01/03/2023 22:37:31 01/03/2023 22:37:31 Dr Exam Complete 01/03/2023 22:36:31 01/03/2023 22:36:31 01/03/2023 22:36:31 Reg Complete Request 01/03/2023 22:37:31 Reg Bed Request Complete 01/03/2023 22:37:31 01/03/2023 22:37:31 01/03/2023 22:37:31 Bed Assign Complete 01/03/2023 22:41:48 01/03/2023 22:41:48 01/03/2023 22:41:48 RN Exam Request 01/03/2023 22:41:48 Pending Labs Complete 01/03/2023 22:42:31 01/03/2023 23:27:40 Lab Complete 01/03/2023 22:42:31 01/03/2023 23:18:53 Urine Collect Complete 01/03/2023 22:42:31 01/03/2023 23:18:53 Pending Labs Complete 01/03/2023 22:50:11 01/03/2023 23:42:57 Lab Complete 01/03/2023 22:50:11 01/03/2023 23:42:57 Pending Labs Cancel 01/03/2023 22:51:07 01/03/2023 23:14:28 Lab Cancel 01/03/2023 22:51:07 01/03/2023 23:14:28 Pending Labs Inlab 01/03/2023 23:08:40 01/03/2023 23:08:40 Lab Inlab 01/03/2023 23:08:40 01/03/2023 23:08:40 Pending Labs Complete 01/03/2023 23:14:21 01/03/2023 23:14:21 01/03/2023 23:39:01 Lab Complete 01/03/2023 23:14:21 01/03/2023 23:14:21 01/03/2023 23:39:01 Pending Labs Complete 01/03/2023 23:15:25 01/03/2023 23:15:25 01/04/2023 00:02:51 Lab Complete 01/03/2023 23:15:25 01/03/2023 23:15:25 01/04/2023 00:02:51 Pending Labs Complete 01/03/2023 23:37:55 01/03/2023 23:37:55 01/03/2023 23:38:02 Lab Complete 01/03/2023 23:37:55 01/03/2023 23:37:55 01/03/2023 23:38:02 Meds Admin Complete 01/03/2023 23:45:32 01/03/2023 23:54:43 Meds Admin Complete 01/03/2023 23:46:11 01/03/2023 23:54:43 Discharge Complete 01/04/2023 00:04:48 01/04/2023 00:13:00 01/04/2023 00:13:00 Transfer Complete 01/04/2023 00:13:00 01/04/2023 00:13:00 01/04/2023 00:13:00 AD[address]ESS: [address] [facility] [id number] PHYS DOC NOTES: MEDICAL INFORMATION: Prescriptions Given: New Medications [facility], [address] [place] [id number], [phone] cephalexin (Keflex 500 mg Cap) 1 Capsules By Mouth every 12 hours. Refills: 0. Medications to Continue Taking That Have Changed [facility], [address] [place], [place] [id number], [phone] START: ondansetron (Zofran ODT 4 mg Tab-Dis) 1 Tablets By Mouth every 8 hours as needed Nausea/Vomiting. Refills: 0. Other Medications START: ondansetron (Zofran ODT 4 mg Tab-Dis) 1 Tablets By Mouth 3 times a day. Refills: 0. Medications to Continue with No Changes Other Medications ethinyl estradiol-norethin drone (Microgestin 20 20 mcg-1 mg oral tablet) PATIENT EDUCATION INFORMATION: Instructions: Pharyngitis, Dxkd-cw-Sesh Follow up: With: Address: When: Thony Carl [address] [place] [address], [facility] [place] [address] [facility] (1) In 3 days 01/06/2023 Comments: Follow-up with your primary care provider in 3 to 5 days. If symptoms worsen, do not improve, or new symptoms arise please report back to emergency department for further evaluation. DIAGNOSIS: Body aches; ; Strep pharyngitis [facility] ED Note-Nursingon 01-04-2023 ED Note-Nursing pt given d/c instructions and educated on importance of follow up. pt educated on new medication. pt verbalized understanding of instructions and readiness for d/c. pt walked self ambulatory to waiting room in stable condition. [facility] ED Note-Nursing Pt arrived to ed from home via private car with her boyfriend c/o fever, bodyaches, and sore throat all day today. pt states she took tylenol before she came in and zofran earlier in the day for nausea. pt states she is currently 4 weeks [facility] ED Note-Physicianon 20 23 ED Note-Physician Basic Information Time Seen: Osvaldo CHUNG, Hudson Lang 01/03/2023 22:36 Chief Complaint complains of lower back pain. body aches. throat pain. fever. states is 4-5 wks preg. taking tylenol cold and flu History of Present Illness 22-year-old female reports to the emergency department with a chief complaint of sore throat, body aches, fever. Reports that she is also having lower back pain and some general body aches with this. States that this all started this morning with a sore throat. Reports that she woke up with this level and it has slowly worsened throughout the day. States that she now has a fever and body aches. She reports that she has been having generalized body aches with this. Denies any recent sick contacts. Denies any urinary symptoms with this. She states that she has been taking Tylenol, as well as Tylenol Cold and flu. She reports that she believes that she is 4 to 5 weeks . States that she has not had ultrasound to confirm this yet. She does follow-up for a appointment on the . She reports no allergies to medications. Review of Systems A 10 point review of systems is negative except as noted above. Medical and Surgical History: Reviewed and noted Social history: Lives at home Family History: Reviewed. Tobacco: Denies Physical Exam Vitals & Measurements T: 38.2 ?C(Oral) HR: 105(Peripheral) RR: 20 BP: 96/59 SpO2: 99% HT: 170 cm WT: 75.3 kg BMI: 26.06 General: The patient appears well and in no apparent distress. Patient is resting comfortably on bed. Afebrile Skin: Warm, dry, no pallor noted. No rashes noted. Head: Normocephalic, atraumatic Neck: No JVD Eye: PERRLA, EOMI ENT: Moist mucus membranes. Pharynx is erythematous, with no exudates seen. Bilateral TMs intact with no erythema or bulging. Cardiovascular: Regular rate normal peripheral perfusion. Radial pulses +2 bilaterally Respiratory: No respiratory distress no accessory muscle use no obvious audible wheezing. Lung sounds clear auscultation Chest Wall: no deformity Musculoskeletal: normal ROM, no deformity, no swelling GI: No obvious distention soft. Abdomen is soft with no rebound tenderness or guarding noted. No CVA tenderness bilaterally Neurological: A&O moves all extremities equal strength and symmetry Psychiatric: Cooperative and appropriate Medical Decision Making MEDICAL DECISION MAKING Number and Complexity of Problems Differential Diagnosis: [] [facility] Data External documents reviewed: [] My EKG interpretation: [] My CT interpretation: [] My X-ray interpretation: [] My Ultrasound interpretation: [] Decision rules/scores evaluated: [] Discussed with: [] Treatment and Disposition ED Course: 22-year-old female reports emergency department with chief complaint of generalized body aches, as well as sore throat and fever. Reports that all started today. Reports that she is vomiting with this as well. States are driving things down. She reports that she just generally is not feeling well. Reports that she is also 4 to 5 weeks . On physical exam, she is febrile, and does have erythema in the pharynx. She is slightly tachycardic, but otherwise benign exam. No abdominal pain or CVA tenderness bilaterally. Due to her concerns, we did do lab work, as well as a rapid strep test. We did a urinalysis well. Strep test did come back positive. Lab work reviewed and noted. No acute changes seen, except some mild leukocytosis. Patient also has what could be a mild UTI. Either way, patient will be started on Keflex for her symptoms. This will cover the strep, as well as possible UTI. was confirmed. Discussed follow-up with [facility]. Discussed return precautions. Discussed Tylenol every 6-8 hours for fever control and pain relief. Follow-up with your primary care provider in 3 to 5 days. If symptoms worsen, do not improve, or new symptoms arise please report back to emergency department for further evaluation. The patient was understanding and agreeable to plan moving forward. Shared decision making: [] Code status: [] Assessment/Plan Body aches (R52: Pain, unspecified) (Z34.90: Encounter for supervision of normal , unspecified, unspecified trimester) Strep pharyngitis (J02.0: Streptococcal pharyngitis) Orders: cephalexin, 500 mg = 1 cap(s), Cap, Oral, Once, Stop date 01/03/23 23:45:00 EDT, STAT, Start date 01/03/23 23:45:00 EDT, 01/03/23 23:45:00 EDT cephalexin, 500 mg = 1 cap(s), Oral, q12hr, # 20 cap(s), Refills(s) 0, Pharmacy: [facility], 170, cm, 01/03/23 22:44:00 EDT, Height/Length Dosing, 75.3, kg, 01/03/23 22:44:00 EDT, Weight Dosing ondansetron, 4 mg = 1 tab(s), Oral, q8hr, PRN Nausea/Vomiting, # 12 tab(s), Refills(s) 0, Pharmacy: [facility], 170, cm, 01/03/23 22:44:00 EDT, Height/Length Dosing, 75.3, kg, 01/03/23 22:44:00 EDT, Weight Dosing ondansetron, 12 mg = 3 tab(s), Tab-Dis, Oral, Once, Stop date 01/03/23 23:45:00 EDT, STAT, (more content not included)... Normal [facility] Comment on above: Result Comment: Elec tronically Signed By: Hudson Riley PA-C\.br\Date and Time Signed: 01/04/23 00:05 EDT\.br\Electronically Co-Signed By: Jesús Lopez DO\.br\Date and Time Co-Signed: 01/04/23 03:50 EDT ED Patient Education Noteon 01-04-2023 ED Patient Education Note Infectious Disease Pharyngitis Pharyngitis is a sore throat (pharynx). This is when there is redness, pain, and swelling in your throat. Most of the time, this condition gets better on its own. In some cases, you may need medicine. What are the causes? ? An infection from a virus. ? An infection from bacteria. ? Allergies. What increases the risk? ? Being 5?24 years old. ? Being in crowded environments. These include: ? Daycares. ? Schools. ? Dormitories. ? Living in a place with cold temperatures outside. ? Having a weakened disease-fighting (immune) system. What are the signs or symptoms? Symptoms may vary depending on the cause. Common symptoms include: ? Sore throat. ? Tiredness (fatigue). ? Low-grade fever. ? Stuffy nose. ? Cough. ? Headache. Other symptoms may include: ? Glands in the neck (lymph nodes) that are swollen. ? Skin rashes. ? Film on the throat or tonsils. This can be caused by an infection from bacteria. ? Vomiting. ? Red, itchy eyes. ? Loss of appetite. ? Joint pain and muscle aches. ? Tonsils that are temporarily bigger than usual (enlarged). How is this treated? Many times, treatment is not needed. This condition usually gets better in 3?4 days without treatment. If the infection is caused by a bacteria, you may be need to take antibiotics. Follow these instructions at home: Medicines ? Take bkky-dcl-gllaysi and prescription medicines only as told by your doctor. ? If you were prescribed an antibiotic medicine, take it as told by your doctor. Do not stop taking the antibiotic even if you start to feel better. ? Use throat lozenges or sprays to soothe your throat as told by your doctor. ? Children can get pharyngitis. Do not give your child aspirin. Managing pain To help with pain, try: ? Sipping warm liquids, such as: ? Broth. ? Herbal tea. ? Warm water. ? Eating or drinking cold or frozen liquids, such as frozen ice pops. ? Rinsing your mouth (gargle) with a salt water mixture 3?4 times a day or as needed. ? To make salt water, dissolve ??1 tsp (3?6 g) of salt in 1 cup (237 mL) of warm water. ? Do not swallow this mixture. ? Sucking on hard candy or throat lozenges. ? Putting a cool-mist humidifier in your bedroom at night to moisten the air. ? Sitting in the bathroom with the door closed for 5?10 minutes while you run hot water in the shower. General instructions ? Do not smoke or use any products that contain nicotine or tobacco. If you need help quitting, ask your doctor. ? Rest as told by your doctor. ? Drink enough fluid to keep your pee (urine) pale yellow. How is this prevented? ? Wash your hands often for at least 20 seconds with soap and water. If soap and water are not available, use hand picker operator. ? Do not touch your eyes, nose, or mouth with unwashed hands. Wash hands after touching these areas. ? Do not share cups or eating utensils. ? Avoid close contact with people who are sick. Contact a doctor if: ? You have large, tender lumps in your neck. ? You have a rash. ? You cough up green, yellow-brown, or bloody spit. Get help right away if: ? You have a stiff neck. ? You drool or cannot swallow liquids. ? You cannot drink or take medicines without vomiting. ? You have very bad pain that does not go away with medicine. ? You have problems breathing, and it is not from a stuffy nose. ? You have new pain and swelling in your knees, ankles, wrists, or elbows. These symptoms may be an emergency. Get help right away. Call your local emergency services (911 in the [place] ? Do not wait to see if the symptoms will go away. ? Do not drive yourself to the hospital. Summary ? Pharyngitis is a sore throat (pharynx). This is when there is redness, pain, and swelling in your throat. ? Most of the time, pharyngitis gets better on its own. Sometimes, you may need medicine. ? If you were prescribed an antibiotic medicine, take it as told by your doctor. Do not stop taking the antibiotic even if you start to feel better. This information is not intended to replace advice given to you by your health care provider. Make sure you discuss any questions you have with your health care provider. Document Revised: 08/22/2021 Document Reviewed: 08/22/2021 Elsevier Patient Education ? 2022 [employer] Normal [facility] ED Patient Summaryon 023 ED Patient Summary [place] [id number] Patient Discharge Instructions Person Information Name: KAILYN ACKERMAN Age: 22 Years MRN: Arrival Date: 01/03/2023 22:30:29 Discharge Diagnosis: Body aches; ; Strep pharyngitis Primary Care Physician: NONE, XXXX Provider Information Primary Provider: Jesús Lopez DO Advanced Research Instructor:Alejandro The exam and treatment you received in the Emergency Department were for an urgent problem and are not intended as complete care. It is important that you follow up with a doctor, nurse practitioner, or physician?s safety admin assistant for ongoing care. If your symptoms become worse or you do not improve as expected and you are unable to reach your usual health care provider, you should return to the Emergency Department. We are available 24 hours a day. KAILYN ACKERMAN has been given the following list of patient education materials, prescriptions and follow-up instructions: Follow-up Instructions: With: Address: When: Thony Carl [address] [place] [id number] [facility] () In 3 days 01/06/2023 Comments: Follow-up with your primary care provider in 3 to 5 days. If symptoms worsen, do not improve, or new symptoms arise please report back to emergency department for further evaluation. In the event that this physician does not participate in your insurance network, please consult with your insurance company to find a nearby participating provider. Patient Education Materials: Pharyngitis, Hvnl-um-Mota A MESSAGE TO ALL PATIENTS REGARDING OPIOIDS PRESCRIPTION OPIOIDS: WHAT YOU NEED TO KNOW Prescription opioids can be used to help relieve lqknritz-mm-bxnqvy pain and are often prescribed following a surgery or injury, or for certain health conditions. These medications can be an important part of the treatment but also come with serious risks. It is important to work with your healthcare provider to make sure you are getting the safest, most effective care. WHAT ARE THE RISKS AND SIDE EFFECTS OF OPIOID USE? Prescription opioids carry serious risks of addiction and overdose, especially with prolonged use. An opioid overdose, often marked by slowed breathing, can cause sudden . The use of prescription opioids can have a number of side effects as well, even when taken as directed: ? Tolerance?meaning you might need to take more of the medication for the same pain relief ? Physical dependence?meaning you have symptoms of withdrawal when a medication is stopped ? Increased sensitivity to pain ? Constipation ? Nausea, vomiting, and dry mouth ? Sleepiness and dizziness ? Confusion ? Depression ? Low levels of testosterone that can result in lower sex drive, energy, and strength ? Itching and sweating RISKS ARE GREATER WITH: ? History of drug misuse, substance use disorder, or overdose ? Mental health conditions (such as depression or anxiety) ? Sleep apnea ? Older age (65 years and older) ? Avoid alcohol while taking prescription opioids. Also, unless specifically advised by your health care provider, medications to avoid include: ? Benzodiazepines (such as Xanax or Valium) ? Muscle relaxants (such as Soma or Flexeril) ? Hypnotics (such as Ambien or Lunesta) ? Other prescription opioids KNOW YOUR OPTIONS Talk to your health care provider about ways to manage your pain that don?t involve prescription opioids. Some of these options may actually work better and have fewer risks and side effects. Options may include: ? Pain relievers such as acetaminophen, ibuprofen, and naproxen ? Some medication that are also used for depression or seizures ? Physical therapy and exercise ? Cognitive behavioral therapy, a psychological, goal-directed approach, in which patients learn how to modify physical, behavioral, and emotional triggers of pain and stress. IF YOU ARE PRESCRIBED OPIOIDS FOR PAIN: ? Never take opioids in greater amounts or more often than prescribed. ? Follow up with your primary health care provider. o Work together to create a plan on how to manage your pain. o Talk about ways to help manage your pain that don?t involve prescription opioids. o Talk about any and all concerns and side effects. ? Help prevent misuse and abuse o Never sell or share prescription opioids. o Never use another person?s prescription opioids. ? Store prescription opioids in a secure place and out of reach of others (this may include visitors, children, friends, and family). ? Safely dispose of unused prescription opioids: Find your community drug take-back program or your pharmacy mail-back program, or flush them down the toilet, following guidance from the Food and Drug Administration (www.fda.gov/Drugs /ResourcesForYou). ? Visit www.cdc.gov/drugov erdose to learn about the risks of o (more content not included)... Normal [facility] Hep Func Panelon 01-04-2023 Albumin [Mass/Vol] 3.9 g/dL Normal 3.3-5.0 [facility] Comment on above: Performed By: #### 2 [id number], [id number], 3833465, 1195311, 9613352, 5489577, 3477943 #### [facility] [address] [place] [address] Albumin/Globulin (S) [Mass conc ratio] 1.3 Normal 1.1-2.2 [facility] Comment on above: Performed By: #### 2 552474, 31421168, 4147076, 2369427, 8577211, 8869692, 9923756 #### [facility] [address] [place] [address] ALP [Catalytic activity/Vol] 50 Int._Unit/L Normal 21-98 [facility] Comment on above: Performed By: #### 2 838755, 34975343, 2191440, 3147946, 1318867, 4543484, 0175654 #### [facility] [address] [place], [place] [address] ALT No additional P-5'-P [Catalytic activity/Vol] 13 Int._Unit/L Normal 6-46 [facility] Comment on above: Performed By: #### 2 279528, 73572031, 2053663, 6462773, 7636558, 4479698, 6283543 #### [facility] [address] [place] [address] AST [Catalytic activity/Vol] 17 Int._Unit/L Normal 5-43 [facility] Comment on above: Performed By: #### 2 703189, 95584032, 1877637, 9405825, 0103150, 2869058, 9231068 #### [facility] [address] [place] [address] Bilirubin [Mass/Vol] 0.7 mg/dL Normal 0.0-1.1 [facility] Comment on above: Performed By: #### 2 287221, 79145018, 7197717, 0338511, 0131494, 2586104, 9133097 #### [facility] [address] [place], [place] [address] Bilirubin.direct [Mass/Vol] 0.1 mg/dL Normal 0.1-0.4 [facility] Comment on above: Performed By: #### 2 585969, 30830191, 9634670, 3900699, 1751572, 0714835, 5142300 #### [facility] [address] [place] [address] Bilirubin.indirect [Mass or moles/Vol] 0.6 mg/dL Normal 0.1-0.9 [facility] Comment on above: Performed By: #### 2 888736, 46495837, 3839174, 8367455, 0207962, 0382207, 7347426 #### [facility] [address] [place] [address] Globulin (S) [Mass/Vol] 3.1 g/dL Normal 1.4-4.0 [facility] Comment on above: Performed By: #### 2 291316, 13675578, 7661251, 5406234, 6675114, 7457416, 5381327 #### [facility] [address] [place] [address] Protein [Mass/Vol] 7.0 g/dL Normal 6.0-7.8 [facility] Comment on above: Performed By: #### 2 474705, 62004133, 6292084, 1829932, 4543784, 6638975, 8549784 #### [facility] [address] [place] [address] Lipase Levelon 01-04-2023 Lipase [Catalytic activity/Vol] 29 U/L Normal 13-58 [facility] Comment on above: Performed By: #### 2 467173, 49892408, 3326309, 8369958, 4066905, 2192836, 8069104 #### [facility] [address] [place] [address] Rapid Strep w/rfxon 01-05-20 23 S. pyogenes Ag IA.rapid Ql (Throat) Positive Abnormal Negative [facility] Comment on above: Performed By: #### 2 884716, 93331959, 3910111, 4309928, 0842206, 5162469, 4333510 #### [facility] [address] [place] [address] U BetaHcg Qualon 01-04-2023 HCG.beta subunit (U) [Moles/Vol] Positive Normal [facility] Comment on above: Performed By: #### 2 793836, 86618406, 2219576, 7299122, 2369958, 8176430, 5907475 #### [facility] [address] [place] [address] UA With Cult Reflexon 2022 Bacteria LM Ql (Urine sed) 1+ /HPF Abnormal Trace [facility] Comment on above: Performed By: #### 2 659540, 16501839, 8952323, 2193543, 7531432, 6393884, 7270628 #### [facility] [address] [place] [address] Bilirubin Ql (U) Negative Normal Negative [facility] Comment on above: Performed By: #### 2 469397, 64504610, 9600343, 6789833, 0603287, 1681668, 3404566 #### [facility] [address] [place] [address] Clarity (U) CLEAR Normal Clear [facility] Comment on above: Performed By: #### 2 845861, 29551688, 2001969, 3374282, 7238911, 2890495, 4898636 #### [facility] [address] [place] [address] Color (U) YELLOW Normal Yellow [facility] Comment on above: Performed By: #### 2 431806, 79956900, 1930668, 9637012, 0019471, 5005280, 6159106 #### [facility] [address] [place] [address] Epithelial cells.squamous LM.HPF (Urine sed) [#/Area] 3-4 Normal 0-2 [facility] Comment on above: Performed By: #### 2 256539, 53557318, 0220579, 1310515, 3740499, 4493001, 3665406 #### [facility] [address] [place] [address] Glucose Test strip (U) [Mass/Vol] Negative Normal Negative [facility] Comment on above: Performed By: #### 2 554239, 60592860, 8311330, 3456390, 9566489, 1046846, 1455745 #### [facility] [address] [place] [address] Hemoglobin Ql (U) Negative Normal Negative [facility] Comment on above: Performed By: #### 2 707051, 86038148, 5390729, 0367456, 6286341, 8806965, 4001829 #### [facility] [address] [place] [address] Ketones (U) [Mass/Vol] TRACE Abnormal Negative [facility] Comment on above: Performed By: #### 2 615971, 90241853, 0068251, 9576411, 6825588, 4253589, 2160817 #### [facility] [address] [place] [address] Muncy.plasma/Muncy.R BC (Bld) [Mass ratio] 0-3 Normal 0-3 [facility] Comment on above: Performed By: #### 2 942667, 37760840, 6446084, 5195337, 8872673, 3979495, 9589563 #### [facility] [address] [place] [address] Nitrite Ql (U) Negative Normal Negative [facility] Comment on above: Performed By: #### 2 431524, 69695403, 9810099, 1725846, 1855425, 2169136, 5151666 #### [facility] [address] [place] [address] pH (U) 6.5 [pH] Invalid Interpretation Code 5.0-9.0 [facility] Comment on above: Performed By: #### 2 640687, 25357562, 3495196, 4136523, 9272235, 5874361, 9834993 #### [facility] [address] [place] [address] Protein (U) [Mass/Vol] Negative Normal Negative [facility] Comment on above: Performed By: #### 2 933181, 43873708, 8480656, 6584597, 3836675, 7013604, 6047467 #### [facility] [address] [place] [address] Specific gravity (U) [Rel density] 1.020 Invalid Interpretation Code 1.005-1.030 [facility] Comment on above: Performed By: #### 2 567816, 52956675, 9131696, 8966305, 3961163, 3641365, 7435647 #### [facility] [address] [place] [address] Type of Urine collection method Clean Catch Normal [facility] Comment on above: Performed By: #### 2 275340, 06223177, 9761640, 9616376, 9739226, 7670678, 6663544 #### [facility] [address] [place] [address] Urobilinogen Qn (U) 1.0 {Georgina'U}/dL Normal 0.0-1.0 [facility] Comment on above: Performed By: #### 2 206559, 97702625, 8333817, 5115286, 2979944, 1092738, 7765821 #### [facility] [address] [place] [address] WBC Auto Ql (U) 1+ Abnormal Negative [facility] Comment on above: Performed By: #### 2 210848, 61497214, 1952316, 7916028, 8947608, 1435485, 6349471 #### [facility] [address] [place] [address] WBC LM.HPF (Urine sed) [#/Area] 6-15 Abnormal 0-5 [facility] Comment on above: Performed By: #### 2 117613, 16824810, 7974664, 2417032, 5910423, 7659891, 6869013 #### [facility] [address] [place] [address] eGFRon 01-04-2023 GFR/1.73 sq M.predicted among non-blacks MDRD (S/P/Bld) [Vol rate/Area] 108 mL/min/1.73 m2 Normal >=59 [facility] Comment on above: Order Comment: Order added by Discern Expert. Result Comment: Senior Ios Developer sharan kidney disease could be indicated at eGFR's of less than 60 mL/min/1.73m2. Kidney failure is indicated at less than 15 mL/min/1.73m2. Performed By: #### 2 920189, 35741878, 9952991, 8984832, 5909423, 2075260, 3581820 #### [facility] [address] [place] [address] CHEMISTRYOrdered By: Juancho benitez on 01-03-2023 Albumin [Mass/Vol] 3.9 g/dL Normal 3.3 - 5.0 gm/dL [facility] Albumin/Globulin [Mass ratio] 1.3 {ratio} Normal 1.1 - 2.2 [facility] ALP [Catalytic activity/Vol] 50 [iU]/d Normal 21 - 98 Int._Unit/L [facility] ALT No additional P-5'-P [Catalytic activity/Vol] 13 [iU]/d Normal 6 - 46 Int._Unit/L [facility] Anion gap [Moles/Vol] 11 mmol/L Normal 6 - 16 mEq/L F [facility] AST [Catalytic activity/Vol] 17 [iU]/d Normal 5 - 43 Int._Unit/L [facility] Bilirubin [Mass/Vol] 0.7 mg/dL Normal 0.0 - 1 .1 mg/dL [facility] Bilirubin.direct [Mass/Vol] 0.1 mg/dL Normal 0.1 - 0.4 mg/dL [facility] Bilirubin.indirect [Mass or moles/Vol] 0.6 mg/dL Normal 0.1 - 0.9 mg/dL [facility] Calcium [Mass/Vol] 9.0 mg/dL Normal 8.9 - 11. 1 mg/dL [facility] Chloride [Moles/Vol] 106 mmol/L Normal 101 - 1 11 mmol/L [facility] CO2 [Moles/Vol] 23 mmol/L Normal 21 - 31 mmol/L [facility] Creatinine [Mass/Vol] 0.8 mg/dL Normal 0.5 - 1.3 mg/dL [facility] Globulin (S) [Mass/Vol] 3.1 g/dL Normal 1.4 - 4.0 gm/dL [facility] Glucose [Mass/Vol] 101 mg/dL Normal 55 - 199 mg/dL [facility] Lipase [Catalytic activity/Vol] 29 U/L Normal 13 - 58 unit/L [facility] Potassium [Moles/Vol] 3.5 mmol/L Normal 3.5 - 5.3 mmol/L [facility] Protein [Mass/Vol] 7.0 g/dL Normal 6.0 - 7.8 gm/dL [facility] Sodium [Moles/Vol] 136 mmol/L Normal 135 - 145 mmol/L [facility] Urea nitrogen [Mass/Vol] 10 mg/dL Normal 5 - 21 mg/d L [facility] Urea nitrogen/Creatinine [Mass ratio] 12 mg/mg Normal 10 - 20 [facility] CHEMISTRYOrdered By: SYSTEM SYSTEM on 01-03-2023 GFR/1.73 sq M.predicted among non-blacks MDRD (S/P/Bld) [Vol rate/Area] 108 mL/min/1.73 m2 Normal >=59mL/min/1 .73 m2 [facility] Chem S HCG.beta subunit Qn 1572 m[IU]/mL High 1 - 3 mIU/mL [facility] HEMATOLOGYOrdered By: SYSTEM SYSTEM on 01-03-2023 Basophils/100 WBC (Bld) 0.3 % Normal 0.0 - 2.0 % [facility]eAuto[facility] Basophils/Leukocytes Auto (Bld) [Pure # fraction] 0.1 E9/L Normal 0.0 - 0.2 E9/L [facility] Eosinophils/100 WBC (Bld) 0.3 % Normal 0.0 - 8.0 % [facility]eAutoSS Eosinophils/Leukocytes Auto (Bld) [Pure # fraction] 0.0 E9/L Normal 0.0 - 0.5 E9/L [facility] Lymphocytes/100 WBC (Bld) 7.5 % Low 14.0 - 50.0 % [facility]eAuto[facility] Lymphocytes/Leukocytes Auto (Bld) [Pure # fraction] 1.3 E9/L Normal 1.0 - 4.0 E9/L [facility]eAutoSS Monocytes/100 WBC (Bld) 5.7 % Normal 4.0 - 14.0 % [facility]eAutoSS Monocytes/Leukocytes Auto (Bld) [Pure # fraction] 1.0 E9/L Normal 0.2 - 1.0 E9/L [facility] Neutrophils/100 WBC (Bld) 86.2 % High 36.0 - 75.0 % [facility]eAutoSS Neutrophils/Leukocytes Auto (Bld) [Pure # fraction] 14.6 E9/L High 2.0 - 7.5 E9/L [facility] HEMATOLOGYOrdered By: Juancho Fitch on 01-03-2023 Erythrocyte distribution width (RBC) [Ratio] 15.9 % High 10.9 - 14.2 % [facility] Hematocrit (Bld) [Volume fraction] 33.8 % Low 34.0 - 46.0 % [facility] Hemoglobin (Bld) [Mass/Vol] 11.3 g/dL Low 12.0 - 16.0 gm/dL [facility] MCH (RBC) [Entitic mass] 26.7 pg Low 27. 0 - 34.0 pg [facility] MCHC (RBC) [Mass/Vol] 33.4 g/dL Normal 31.4 - 36.0 gm/dL [facility] MCV (RBC) [Entitic vol] 80.1 fL Normal 80.0 - 100.0 fL [facility] Platelet mean volume (Bld) [Entitic vol] 7.6 fL Normal 6.4 - 10.8 fL [facility]eAuto[facility] Platelets (Bld) [#/Vol] 237.0 E9/L Normal 150. 0 - 500.0 E9/L [facility] RBC (Bld) [#/Vol] 4.2 E12/L Low 4.3 - 5.9 E12/L [facility] WBC corrected for nucl RBC Auto (Bld) [#/Vol] 16.9 E9/L High 4.0 - 11.0 E9/L [facility] Laboratory - Microbiology an d Antimicrobial susceptibilityOrdered By: Asuncion Goncalves on 01-03-2023 Bacteria identified Cx Nom (U) No growth to date Continuing incubation [facility] MICRO OTHER TESTSOrdered By: Juancho Fitch on 01-03-2023 S. pyogenes Ag IA.rapid Ql (Throat) Positive *ABN* (01/03/23 10:52 PM) Invalid Interpretation Code Negative [facility] SEROLOGYOrdered By: Juancho mullins on 01-03-2023 HCG.beta subunit (U) [Moles/Vol] Positive (01/03/23 10:52 PM) Normal [facility] URINALYSISOrdered By: Juancho Fitch on 01-03-2023 Bacteria LM Ql (Urine sed) 1+ /HPF Invalid Interpretation Code Trace/HPF [facility] UA Auto SS Bilirubin Ql (U) Negative (01/03/23 10:52 PM) Normal Negative [facility] UA Auto SS Clarity (U) Clear (01/03/23 10:52 PM) Normal Clear [facility] UA Auto SS Color (U) Yellow (01/03/23 10:52 PM) Normal Yellow [facility] UA Auto SS Epithelial cells.squamous LM.HPF (Urine sed) [#/Area] 3-4 /HPF Normal 0-2/HPF [facility] UA Aut o SS Glucose Test strip (U) [Mass/Vol] Negative (01/03/23 10:52 PM) Normal Negative [facility] UA Auto SS Hemoglobin Ql (U) Negative (01/03/23 10:52 PM) Normal Negative [facility] UA Auto SS Ketones (U) [Mass/Vol] Trace *ABN* (01/03/23 10:52 PM) Invalid Interpretation Code Negative [facility] UA Auto SS Muncy.plasma/Muncy.R BC (Bld) [Mass ratio] 0-3 /HPF Normal 0-3/HPF [facility] UA Au to SS Nitrite Ql (U) Negative (01/03/23 10:52 PM) Normal Negative [facility] UA Auto SS pH (U) 6.5 *NA* (01/03/23 10:52 PM) Invalid Interpretation Code 5.0 - 9.0 [facility] UA Auto SS Protein (U) [Mass/Vol] Negative (01/03/23 10:52 PM) Normal Negative [facility] UA Auto SS Specific gravity (U) [Rel density] 1.020 *NA* (01/03/23 10:52 PM) Invalid Interpretation Code 1.005 - 1.030 [facility] UA Auto SS UA Spec Desc Clean Catch (01/03/23 10:52 PM) Normal [facility] UA Auto SS Urobilinogen Qn (U) 1.8486057 {Georgina'U}/dL Normal 0.0 - 1.0 EU/dL [facility] UA Auto SS WBC Auto Ql (U) 1+ *ABN* (01/03/23 10:52 PM) Invalid Interpretation Code Negative [facility] UA Auto SS WBC LM.HPF (Urine sed) [#/Area] 6-15 /HPF Invalid Interpretation Code 0-5/HPF [facility] UA Auto SS Alanine aminotransferase [En zymatic activity/volume] in Serum or PlasmaOrdered By: Jose Silverman on 10-02-2022 ALT [Catalytic activity/Vol] 13 U/L Normal 7-52 [facility] Comment on above: Performed By: #### C BC, CMP, ETOH #### [facility] [address] [place] [address] Albumin [Mass/volume] in Ser um or Plasma by Bromocresol green (BCG) dye binding methoOrdered By: Jose Silverman on 10-02-2022 Albumin BCG dye [Mass/Vol] 5.0 g/dL 3.5-5.7 [facility] Alkaline phosphatase [Enzyma tic activity/volume] in Serum or PlasmaOrdered By: Jose Silverman on 10-02-2022 ALP [Catalytic activity/Vol] 69 U/L Normal 34-104 [facility] Comment on above: Performed By: #### C BC, CMP, ETOH #### [facility] [address] [place] [address] Amphetamine Screen Ql (U)Ord ered By: Jose Silverman on 10-02-2022 Amphetamines Ql (U) Negative Negative [facility] Aspartate aminotransferase [ Enzymatic activity/volume] in Serum or PlasmaOrdered By: Jose Silverman on 10-02-2022 AST [Catalytic activity/Vol] 21 U/L Normal 13-39 [facility] Comment on above: Performed By: #### C BC, CMP, ETOH #### [address] Automated basophil %Ordered By: Jose Silverman on 10-02-2022 Basophils/100 WBC (Bld) 0.5 % Normal . [facility] Comment on above: Performed By: #### C BC, CMP, ETOH #### [address] Automated basophil countOrde red By: Jose Silverman on 10-02-2022 Basophils (Bld) [#/Vol] 0.1 10*3/uL Normal 0.0-0.2 [facility] Comment on above: Result Comment: PERF ORMED BY: [place] [address] PATHOLOGIST PERSONAL COUNSELOR ASHELY CAREY M.D. Performed By: #### C BC, CMP, ETOH #### [address] Automated blood monocyte cou ntOrdered By: Jose Silverman on 10-02-2022 Monocytes (Bld) [#/Vol] 0.7 10*3/uL Normal 0.0-0.8 [facility] Comment on above: Performed By: #### C BC, CMP, ETOH #### [address] Automated eosinophil %Ordere d By: Jose Silverman on 10-02-2022 Eosinophils/100 WBC (Bld) 2.0 % Normal . [facility] Comment on above: Performed By: #### C BC, CMP, ETOH #### [address] Automated eosinophil countOr dered By: Jose Silverman on 10-02-2022 Eosinophils (Bld) [#/Vol] 0.3 10*3/uL Normal 0.0-0.45 [facility] Comment on above: Performed By: #### C BC, CMP, ETOH #### [facility] [address] Automated erythrocytes count in urine sediment (number/area)Ordered By: Jose Silverman on 10-02-2022 RBC Auto (Urine sed) [#/Area] 0-1 [HPF] 0-4 [facility] Automated leukocytes count i n urine sediment (number/area)Ordered By: Jose Silverman on 10-02-2022 WBC Auto (Urine sed) [#/Area] 10-19 [HPF] 0-4 [facility] Automated monocyte %Ordered By: Jose Silverman on 10-02-2022 Monocytes/100 WBC (Bld) 5.7 % Normal . [facility] Comment on above: Performed By: #### C BC, CMP, ETOH #### [address] Automated neutrophil %Ordere d By: Jose Silverman on 10-02-2022 Neutrophils/100 WBC (Bld) 68.7 % Normal . [facility] Comment on above: Performed By: #### C BC, CMP, ETOH #### [address] Barbiturates [Presence] in U rine by Screen methodOrdered By: Jose Silverman on 10-02-2022 Barbiturates Screen Ql (U) Negative Negative [facility] Benzodiazepines Screen Ql (U )Ordered By: Jose Silverman on 10-02-2022 Benzodiazepines Ql (U) Negative Negative [facility] Benzoylecgonine [Presence] i n Urine by Screen methodOrdered By: Jose Silverman on 10-02-2022 Benzoylecgonine Screen Ql (U) Negative Negative [facility] Bilirubin Test strip Ql (U)O rdered By: Jose Silverman on 10-02-2022 Bilirubin Ql (U) Negative Negative [facility] Bilirubin.total [Mass/volume ] in Serum or PlasmaOrdered By: Jose Silverman on 10-02-2022 Bilirubin [Mass/Vol] 0.3 mg/dL Normal 0.3-1.0 [facility] Comment on above: Performed By: #### C BC, CMP, ETOH #### [address] [place] [address] [place] Calcium [Mass/volume] in Ser um or PlasmaOrdered By: Jose Silverman on 10-02-2022 Calcium [Mass/Vol] 9.6 mg/dL Normal 8.6-10.3 [facility] Comment on above: Performed By: #### C BC, CMP, ETOH #### [address] Cannabinoids [Presence] in U rine by Screen methodOrdered By: Jose Silverman on 10-02-2022 Cannabinoids Screen Ql (U) Negative Negative [facility] Comment on above: These are unconfirme d results and should not be used for legal purposes. Drug Cut-Off Concentration: AMPH 1000 ng/mL MIAH 200 ng/mL AYAN 200 ng/mL COCM 300 ng/mL OP 300 ng/mL PCP 25 ng/mL THC 20 ng/mL Carbon dioxide, total [Moles /volume] in Serum or PlasmaOrdered By: Jose Silverman on 10-02-2022 CO2 [Moles/Vol] 27.2 mmol/L Normal 21.0-31.0 [facility] Comment on above: Performed By: #### C BC, CMP, ETOH #### [place] [address] [place] Chloride [Moles/volume] in S brian or PlasmaOrdered By: Jose Silverman on 10-02-2022 Chloride [Moles/Vol] 101 mmol/L Normal 98-107 [facility] Comment on above: Performed By: #### C BC, CMP, ETOH #### [place] [address] [place] Color Auto (U)Ordered By: Loli Silverman on 10-02-2022 Color (U) Yellow Yellow [facility] Complete Blood Count Auto Di ffon 10-02-2022 Mean Corpuscular HGB Conc 32.0 g/dL Normal 32.0-35.0 [facility] Comment on above: Performed By: #### C BC, CMP, ETOH #### [place] [address] [place] Monocytes/100 WBC (Bld) 17.72 % Normal 0.00-20.00 [facility] Comment on above: Performed By: #### C BC, CMP, ETOH #### [address] NRBC% 0.0 /100{WBC} Normal 0-0.5 [facility] Comment on above: Performed By: #### C BC, CMP, ETOH #### [address] Comprehensive Metabolic Pane tung 10-02-2022 Albumin [Mass/Vol] 5.0 g/dL Normal 3.5-5.7 [facility] Comment on above: Performed By: #### C BC, CMP, ETOH #### [address] Creatinine Clr Calc Pharmacy 107.48 Normal [facility] Comment on above: Result Comment: PERF ORMED BY: [place] [address] PATHOLOGIST PERSONAL COUNSELOR ASHELY CAREY M.D. Performed By: #### C BC, CMP, ETOH #### [address] GFR/1.73 sq M.predicted MDRD (S/P/Bld) [Vol rate/Area] mL/min/{1.73_m2} Normal [facility] Comment on above: Performed By: #### C BC, CMP, ETOH #### [address] Creatinine [Mass/volume] in Serum or PlasmaOrdered By: Jose Silverman on 10-02-2022 Creatinine [Mass/Vol] 0.89 mg/dL Normal 0.60-1.20 [facility] Comment on above: Performed By: #### C BC, CMP, ETOH #### [address] Dipstick and Microscopicon 0 10-02-2022 Appearance (U) Clear Normal Clear [facility] Comment on above: Order Comment: Name Collection Type:: Clean-Voided Midstream Performed By: #### U RDS, ADDONUAPLUS, CUU, UHCG #### [facility] [address] [place] [address] [place] Bacteria,Urine 2+ High None Seen [facility] Comment on above: Order Comment: Name Collection Type:: Clean-Voided Midstream Performed By: #### U RDS, ADDONUAPLUS, CUU, UHCG #### [facility] [address] [place] [address] [place] Bilirubin,Urine Negative Normal Negative [facility] Comment on above: Order Comment: Name Collection Type:: Clean-Voided Midstream Performed By: #### U RDS, ADDONUAPLUS, CUU, UHCG #### [facility] [address] [place] [address] [place] Color (U) Yellow Normal Yellow [facility] Comment on above: Order Comment: Name Collection Type:: Clean-Voided Midstream Performed By: #### U RDS, ADDONUAPLUS, CUU, UHCG #### [facility] [address] [place] [address] Glucose Ql (U) Normal Normal Normal [facility] Comment on above: Order Comment: Name Collection Type:: Clean-Voided Midstream Performed By: #### U RDS, ADDONUAPLUS, CUU, UHCG #### [facility] [address] [place] [address] [place] Hyaline Casts,Urine 0-8 Normal 0-8 [facility] Comment on above: Order Comment: Name Collection Type:: Clean-Voided Midstream Performed By: #### U RDS, ADDONUAPLUS, CUU, UHCG #### [facility] [address] [place] [address] [place] Ketones Ql (U) Negative Normal Negative [facility] Comment on above: Order Comment: Name Collection Type:: Clean-Voided Midstream Performed By: #### U RDS, ADDONUAPLUS, CUU, UHCG #### [facility] [address] [place] [address] [place] Leukocyte esterase Test strip Ql (U) 3+ High Negative [facility] Comment on above: Order Comment: Name Collection Type:: Clean-Voided Midstream Performed By: #### U RDS, ADDONUAPLUS, CUU, UHCG #### [place] [address] [place] Nitrite,Urine Negative Normal Negative [facility] Comment on above: Order Comment: Name Collection Type:: Clean-Voided Midstream Performed By: #### U RDS, ADDONUAPLUS, CUU, UHCG #### [address] Occult Blood,Urine Negative Normal Negative [facility] Comment on above: Order Comment: Name Collection Type:: Clean-Voided Midstream Performed By: #### U RDS, ADDONUAPLUS, CUU, UHCG #### [address] pH (U) 6.5 [pH] Normal 5.0-9.0 [facility] Comment on above: Order Comment: Name Collection Type:: Clean-Voided Midstream Performed By: #### U RDS, ADDONUAPLUS, CUU, UHCG #### [address] Protein,Urine Negative Normal Negative [facility] Comment on above: Order Comment: Name Collection Type:: Clean-Voided Midstream Performed By: #### U RDS, ADDONUAPLUS, CUU, UHCG #### [address] RBC LM.HPF (Urine sed) [#/Area] 0 /[HPF] Normal 0-4 [facility] Comment on above: Order Comment: Name Collection Type:: Clean-Voided Midstream Performed By: #### U RDS, ADDONUAPLUS, CUU, UHCG #### [address] Specificy [place],Urine 1.021 Normal 1.001-1.030 [facility] Comment on above: Order Comment: Name Collection Type:: Clean-Voided Midstream Performed By: #### U RDS, ADDONUAPLUS, CUU, UHCG #### [facility] [address] Squamous Epithelial Cell,Urine 10-19 High 0-2 [facility] Comment on above: Order Comment: Name Collection Type:: Clean-Voided Midstream Performed By: #### U RDS, ADDONUAPLUS, CUU, UHCG #### [address] Urobilinogen,Urine Normal Normal Normal [facility] Comment on above: Order Comment: Name Collection Type:: Clean-Voided Midstream Performed By: #### U RDS, ADDONUAPLUS, CUU, UHCG #### [address] WBC,Urine 10-19 High 0-4 [facility] Comment on above: Order Comment: Name Collection Type:: Clean-Voided Midstream Performed By: #### U RDS, ADDONUAPLUS, CUU, UHCG #### [address] Drug Screen,Urineon 10-03-19 23 Amphetamine Screen,Urine Negative Normal Negative [facility] Comment on above: Performed By: #### U RDS, ADDONUAPLUS, CUU, UHCG #### [address] Barbiturate Screen,Urine Negative Normal Negative [facility] Comment on above: Performed By: #### U RDS, ADDONUAPLUS, CUU, UHCG #### [address] Benzodiazepines Screen,Urine Negative Normal Negative [facility] Comment on above: Performed By: #### U RDS, ADDONUAPLUS, CUU, UHCG #### [address] Cannabinoid Screen,Urine Negative Normal Negative [facility] Comment on above: Result Comment: Thes e are unconfirmed results and should not be used for legal purposes. Drug Cut-Off Concentration: AMPH 1000 ng/mL MIAH 200 ng/mL AYAN 200 ng/mL COCM 300 ng/mL OP 300 ng/mL PCP 25 ng/mL THC 20 ng/mL PERFORMED BY: [place] [address] PATHOLOGIST PERSONAL COUNSELOR ASHELY CAREY M.D. Performed By: #### U RDS, ADDONUAPLUS, CUU, UHCG #### [address] Cocaine Screen,Urine Negative Normal Negative [facility] Comment on above: Performed By: #### U RDS, ADDONUAPLUS, CUU, UHCG #### [address] Opiate Screen,Urine Negative Normal Negative [facility] Comment on above: Performed By: #### U RDS, ADDONUAPLUS, CUU, UHCG #### [address] Phencyclidine Screen,Urine Negative Normal Negative [facility] Comment on above: Performed By: #### U RDS, ADDONUAPLUS, CUU, CG #### [address] Erythrocyte distribution wid th [Ratio] by Automated countOrdered By: Jose Silverman on 10-02-2022 Erythrocyte distribution width (RBC) [Ratio] 15.8 % High 11.9-15.3 [facility] Comment on above: Performed By: #### C BC, CMP, ETOH #### [place] [address] [place] Erythrocytes [#/volume] in B lood by Automated countOrdered By: Jose Silverman on 10-02-2022 RBC (Bld) [#/Vol] 5.31 10*6/uL High 3.60-5.00 [facility] Comment on above: Performed By: #### C BC, CMP, ETOH #### [place] [address] [place] Ethanol [Mass/volume] in Ser um or PlasmaOrdered By: Jose Silverman on 10-02-2022 Ethanol [Mass/Vol] mg/dL Normal [facility] Comment on above: Performed By: #### C BC, CMP, ETOH #### [facility] [address] [place] [address] [place] Ethanol [Mass/Vol] TNP [facility] Comment on above: Test not performed Ethyl Alcohol Profileon 09-08 Percent Ethanol Not performed Normal [facility] Comment on above: Result Comment: PERF ORMED BY: [place] [address] PATHOLOGIST PERSONAL COUNSELOR ASHELY CAREY M.D. Performed By: #### C BC, CMP, ETOH #### [facility] [address] [place] [address] [place] Glucose [Mass/volume] in Ser um or PlasmaOrdered By: Jose Silverman on 10-02-2022 Glucose [Mass/Vol] 98 mg/dL Normal 70-100 [facility] Comment on above: ADA recommended refe rence rangeRandom Glucose Reference Range is dependent on time and content of last meal. Glucose of more than 200 mg/dL in a nonstressed, ambulatory subject supports the diagnosis of Diabetes Mellitus. Result Comment: Isabella om Glucose Reference Range is dependent on time and content of last meal. Glucose of more than 200 mg/dL in a nonstressed, ambulatory subject supports the diagnosis of Diabetes Mellitus. ADA recommended reference range Performed By: #### C BC, CMP, ETOH #### [facility] [address] [place] [id number] [facility] HCG ( test) IA.rapi d Ql (U)Ordered By: Jose Silverman on 10-02-2022 HCG ( test) Ql (U) Negative [facility] HCG,Urineon 10-02-2022 Beta HCG ( test) Ql (U) Negative Normal [facility] Comment on above: Order Comment: Name Collection Type:: Clean-Voided Midstream Result Comment: PERF ORMED BY: [place] [address] PATHOLOGIST PERSONAL COUNSELOR ASHELY CAREY M.D. Performed By: #### U RDS, ADDONUAPLUS, CUU, UHCG #### [facility] [address] [place] [address] Hematocrit [Volume Fraction] of Blood by Automated countOrdered By: Jose Silverman on 10-02-2022 Hematocrit (Bld) [Volume fraction] 41.7 % Normal 34.0-46.4 [facility] Comment on above: Performed By: #### C BC, CMP, ETOH #### [facility] [address] [place] [address] Hemoglobin [Mass/volume] in BloodOrdered By: Jose Silverman on 10-02-2022 Hemoglobin (Bld) [Mass/Vol] 13.3 g/dL Normal 11.8-15.4 [facility] Comment on above: Performed By: #### C BC, CMP, ETOH #### [address] Ketones Auto test strip (U) [Mass/Vol]Ordered By: Jose Silverman on 10-02-2022 Ketones (U) [Mass/Vol] Negative Negative [facility] Laboratory - UrinalysisOrder ed By: Jose Silverman on 10-02-2022 Hyaline casts LM Ql (Urine sed) 0-8 [LPF] 0-8 [facility] Leukocytes [#/volume] correc ruby for nucleated erythrocytes in Blood by Automated counOrdered By: Jose Silverman on 10-02-2022 WBC corrected for nucl RBC Auto (Bld) [#/Vol] 12.9 10*3/uL 3.8-11.6 [facility] Leukocytes [#/volume] in Blo od by Automated countOrdered By: Jose Silverman on 10-02-2022 WBC (Bld) [#/Vol] 12.9 10*3/uL High 3.8-11.6 [facility] Comment on above: Performed By: #### C BC, CMP, ETOH #### [facility] [address] [place] [address] [place] Lymphocytes [#/volume] in Bl ood by Automated countOrdered By: Jose Silverman on 10-02-2022 Lymphocytes (Bld) [#/Vol] 3.0 10*3/uL Normal 1.00-4.8 [facility] Comment on above: Performed By: #### C BC, CMP, ETOH #### [address] Lymphocytes/100 leukocytes i n Blood by Automated countOrdered By: Jose Silverman on 10-02-2022 Lymphocytes/100 WBC (Bld) 23.1 % Normal . [facility] Comment on above: Performed By: #### C BC, CMP, ETOH #### [address] MCH [Entitic mass] by Automa ruby countOrdered By: Jose Silverman on 10-02-2022 MCH (RBC) [Entitic mass] 25.2 pg Normal 24.7-34.3 [facility] Comment on above: Performed By: #### C BC, CMP, ETOH #### [address] MCHC Auto (RBC) [Mass/Vol]Or dered By: Jose Silverman on 10-02-2022 MCHC (RBC) [Mass/Vol] 32.0 g/dL 32.0-35.0 [facility] MCV [Entitic volume] by Auto mated countOrdered By: Jose Silverman on 10-02-2022 MCV (RBC) [Entitic vol] 78.5 fL Low 80-100 [facility] Comment on above: Performed By: #### C BC, CMP, ETOH #### [address] Monocyte distribution width [Entitic volume] in Blood by AutomatedOrdered By: Jose Silverman on 10-02-2022 Monocyte distribution width Auto (Bld) [Entitic vol] 17.72 % 0.00-20.00 [facility] Neutrophils [#/volume] in Bl ood by Automated countOrdered By: Jose Silverman on 10-02-2022 Neutrophils (Bld) [#/Vol] 8.9 10*3/uL High 1.8-7.7 [facility] Comment on above: Performed By: #### C BC, CMP, ETOH #### [address] Nitrite Test strip Ql (U)Ord ered By: Jose Silverman on 10-02-2022 Nitrite Ql (U) Negative Negative [facility] No Panel InformationOrdered By: Jose Silverman on 10-02-2022 Estimated GFR (CKD-EPI) > 60.0 mL/Min [facility] Creatinine Clearance (Chem 107.48 [facility] Nucleated erythrocytes [Pres ence] in Blood by Automated countOrdered By: Jose Silverman on 10-02-2022 Nucleated RBC Auto Ql (Bld) 0.0 /100{WBC} 0-0.5 [facility] Opiates [Presence] in Urine by Screen methodOrdered By: Jose Silverman on 10-02-2022 Opiates Screen Ql (U) Negative Negative [facility] Phencyclidine Screen Ql (U)O rdered By: Jose Silverman on 10-02-2022 Phencyclidine Ql (U) Negative Negative [facility] Platelet mean volume [Entiti c volume] in Blood by Automated countOrdered By: Jose Silverman on 10-02-2022 Platelet mean volume (Bld) [Entitic vol] 7.7 fL Normal 6.3-10.7 [facility] Comment on above: Performed By: #### C BC, CMP, ETOH #### [facility] [address] [place] [address] [place] Platelets [#/volume] in Bloo d by Automated countOrdered By: Jose Silverman on 10-02-2022 Platelets (Bld) [#/Vol] 342 10*3/uL Normal 150-450 [facility] Comment on above: Performed By: #### C BC, CMP, ETOH #### [facility] [address] [place] [address] [place] Potassium [Moles/volume] in Serum or PlasmaOrdered By: Jose Silverman on 10-02-2022 Potassium [Moles/Vol] 3.8 mmol/L Normal 3.5-5.1 [facility] Comment on above: Performed By: #### C BC, CMP, ETOH #### [facility] [address] [place] [address] [place] Protein Auto test strip (U) [Mass/Vol]Ordered By: Jose Silverman on 10-02-2022 Protein (U) [Mass/Vol] Negative Negative [facility] Protein [Mass/volume] in Ser um or PlasmaOrdered By: Jose Silverman on 10-02-2022 Protein [Mass/Vol] 8.7 g/dL Normal 6.4-8.9 [facility] Comment on above: Performed By: #### C BC, CMP, ETOH #### [address] Serum globulin measurement b y calculation (mass/volume)Ordered By: Jose Silverman on 10-02-2022 Globulin (S) [Mass/Vol] 3.7 g/dL Normal [facility] Comment on above: Performed By: #### C BC, CMP, ETOH #### [address] Serum or plasma albumin/glob ulin mass ratioOrdered By: Jose Silverman on 10-02-2022 Albumin/Globulin [Mass ratio] 1.4 {ratio} Normal [facility] Comment on above: Performed By: #### C BC, CMP, ETOH #### [address] Serum or plasma anion gap de terminationOrdered By: Jose Silverman on 10-02-2022 Anion gap [Moles/Vol] 12.6 mmol/L Normal 6.0-15.0 [facility] Comment on above: Performed By: #### C BC, CMP, ETOH #### [address] Sodium [Moles/volume] in Ser um or PlasmaOrdered By: Jose Silverman on 10-02-2022 Sodium [Moles/Vol] 137 mmol/L Normal 136-145 [facility] Comment on above: Performed By: #### C BC, CMP, ETOH #### [address] Specific gravity Auto test s trip (U) [Rel density]Ordered By: Jose Silverman on 10-02-2022 Specific gravity (U) [Rel density] 1.021 1.001-1.030 [facility] Squamous epithelial cells de tection in urine sediment by light microscopyOrdered By: Jose Silverman on 10-02-2022 Epithelial cells.squamous LM Ql (Urine sed) 10-19 [HPF] 0-2 [facility] Urea nitrogen [Mass/volume] in Serum or PlasmaOrdered By: Jose Silverman on 10-02-2022 Urea nitrogen [Mass/Vol] 18 mg/dL Normal 7-25 [facility] Comment on above: Performed By: #### C BC, CMP, ETOH #### [facility] [address] [place] [address] [place] Urine Cultureon 10-02-2022 Bacteria identified Cx Nom (U) ORGANISM: Strep agalactiae - (group b) (O:STRAGA) [place] Count 50,000 PERFORMED BY: [place] [address] PATHOLOGIST PERSONAL COUNSELOR ASHELY CAREY M.D. Normal [facility] Comment on above: Performed By: #### U RDS, ADDONUAPLUS, CUU, UHCG #### [facility] [address] Urine bacteria detection by automated methodOrdered By: Jose Silverman on 10-02-2022 Bacteria Auto Ql (U) 2+ None Seen [facility] Urine clarity by refractomet ry automatedOrdered By: Jose Silverman on 10-02-2022 Clarity Refractometry automated (U) Clear Clear [facility] Urine glucose measurement by automated test strip (mass/volume)Ordered By: Jose Silverman on 10-02-2022 Glucose Auto test strip (U) [Mass/Vol] Normal mg/dL Normal [facility] Urine hemoglobin detection b y automated test stripOrdered By: Jose Silverman on 10-02-2022 Hemoglobin Auto test strip Ql (U) Negative Negative [facility] Urine leukocyte esterase det ection by automated test stripOrdered By: Jose Silverman on 10-02-2022 Leukocyte esterase Auto test strip Ql (U) 3+ Negative [facility] Urobilinogen Auto test strip (U) [Mass/Vol]Ordered By: Jose Silverman on 10-02-2022 Urobilinogen (U) [Mass/Vol] Normal mg/dL Normal [facility] pH Auto test strip (U)Ordere d By: Jose Silverman on 04-26-2023 pH (U) 6.5 [pH] 5.0-9.0 [facility] Quick Strepon 09-25-2022 S. pyogenes Org specific cx Ql (Throat) Negative [employer] Other Quick Strep [employer] Other CHEMISTRYOrdered By: SYSTEM SYSTEM on 09-06-2022 Anion gap [Moles/Vol] 10 mmol/L Normal 6 - 16 mEq/L [facility] Calcium [Mass/Vol] 9.2 mg/dL Normal 8.9 - 11. 1 mg/dL [facility] Chloride [Moles/Vol] 104 mmol/L Normal 101 - 1 11 mmol/L [facility] CO2 [Moles/Vol] 27 mmol/L Normal 21 - 31 mmol/L [facility] Creatinine [Mass/Vol] 0.7 mg/dL Normal 0.5 - 1.3 mg/dL [facility] GFR/1.73 sq M.predicted among blacks MDRD (S/P/Bld) [Vol rate/Area] mL/min/1.73 m2 Normal >=59mL/min/1 .73 m2 [facility] Chem S GFR/1.73 sq M.predicted among non-blacks MDRD (S/P/Bld) [Vol rate/Area] mL/min/1.73 m2 Normal >=59mL/min/1 .73 m2 [facility] Chem S Glucose [Mass/Vol] 82 mg/dL Normal 55 - 199 mg/dL [facility] HCG.beta subunit Qn 1712 m[IU]/mL High 1 - 3 mIU/mL [facility] Potassium [Moles/Vol] 3.7 mmol/L Normal 3.5 - 5.3 mmol/L [facility] Sodium [Moles/Vol] 137 mmol/L Normal 135 - 145 mmol/L [facility] Urea nitrogen [Mass/Vol] 8 mg/dL Normal 5 - 21 mg/d L [facility] Urea nitrogen/Creatinine [Mass ratio] 11 mg/mg Normal 10 - 20 [facility]isol HEMATOLOGYOrdered By: SYSTEM SYSTEM on 09-06-2022 Basophils/100 WBC (Bld) 0.7 % Normal 0.0 - 2.0 % [facility] HemeAutoSS Basophils/Leukocytes Auto (Bld) [Pure # fraction] 0.1 E9/L Normal 0.0 - 0.2 E9/L [facility] HemeAutoSS Eosinophils/100 WBC (Bld) 1.4 % Normal 0.0 - 8.0 % [facility] HemeAutoSS Eosinophils/Leukocytes Auto (Bld) [Pure # fraction] 0.1 E9/L Normal 0.0 - 0.5 E9/L [facility] Lymphocytes/100 WBC (Bld) 28.8 % Normal 14.0 - 50.0 % [facility] Lymphocytes/Leukocytes Auto (Bld) [Pure # fraction] 2.5 E9/L Normal 1.0 - 4.0 E9/L [facility] Monocytes/100 WBC (Bld) 5.7 % Normal 4.0 - 14.0 % [facility] Monocytes/Leukocytes Auto (Bld) [Pure # fraction] 0.5 E9/L Normal 0.2 - 1.0 E9/L [facility] Neutrophils/100 WBC (Bld) 63.4 % Normal 36.0 - 75.0 % [facility] Neutrophils/Leukocytes Auto (Bld) [Pure # fraction] 5.6 E9/L Normal 2.0 - 7.5 E9/L [facility] HEMATOLOGYOrdered By: Citlalli Day on 09-06-2022 Erythrocyte distribution width (RBC) [Ratio] 15.9 % High 10.9 - 14.2 % [facility] Hematocrit (Bld) [Volume fraction] 37.5 % Normal 34.0 - 46.0 % [facility] Hemoglobin (Bld) [Mass/Vol] 11.9 g/dL Low 12.0 - 16.0 gm/dL [facility] MCH (RBC) [Entitic mass] 24.9 pg Low 27. 0 - 34.0 pg [facility] MCHC (RBC) [Mass/Vol] 31.7 g/dL Normal 31.4 - 36.0 gm/dL [facility] MCV (RBC) [Entitic vol] 78.6 fL Low 80.0 - 100.0 fL [facility] Platelet mean volume (Bld) [Entitic vol] 7.5 fL Normal 6.4 - 10.8 fL [facility] Platelets (Bld) [#/Vol] 295.0 E9/L Normal 150. 0 - 500.0 E9/L [facility] RBC (Bld) [#/Vol] 4.8 E12/L Normal 4.3 - 5.9 E12/L [facility] WBC corrected for nucl RBC Auto (Bld) [#/Vol] 8.8 E9/L Normal 4.0 - 11.0 E9/L [facility] SEROLOGYOrdered By: Janelle Burroughs on 09-06-2022 HCG.beta subunit (U) [Moles/Vol] Positive (09/06/22 11:19 AM) Normal [facility] URINALYSISOrdered By: Marlo Burroughs on 09-06-2022 Bacteria LM Ql (Urine sed) Trace /HPF Normal Trace/HPF [facility] UA Auto SS Bilirubin Ql (U) Negative (09/06/22 11:19 AM) Normal Negative [facility] UA Auto SS Clarity (U) SL CLOUDY Invalid Interpretation Code [facility] UA Auto SS Color (U) Yellow (09/06/22 11:19 AM) Normal Yellow [facility] UA Auto SS Epithelial cells.squamous LM.HPF (Urine sed) [#/Area] 0-2 /HPF Normal 0-2/HPF [facility] UA Aut o SS Glucose Test strip (U) [Mass/Vol] Negative (09/06/22 11:19 AM) Normal Negative [facility] UA Auto SS Hemoglobin Ql (U) 3+ *ABN* (09/06/22 11:19 AM) Invalid Interpretation Code Negative [facility] UA Auto SS Ketones (U) [Mass/Vol] Negative (09/06/22 11:19 AM) Normal Negative [facility] UA Auto SS Muncy.plasma/Muncy.R BC (Bld) [Mass ratio] >30 /HPF Invalid Interpretation Code 0-3/HPF [facility] UA Auto SS Mucus Ql (Urine sed) 1+ (09/06/22 11:19 AM) Normal [facility] UA Auto SS Nitrite Ql (U) Negative (09/06/22 11:19 AM) Normal Negative [facility] UA Auto SS pH (U) 7.0 *NA* (09/06/22 11:19 AM) Invalid Interpretation Code 5.0 - 9.0 [facility] UA Auto SS Protein (U) [Mass/Vol] Trace *ABN* (09/06/22 11:19 AM) Invalid Interpretation Code Negative [facility] UA Auto SS Specific gravity (U) [Rel density] 1.020 *NA* (09/06/22 11:19 AM) Invalid Interpretation Code 1.005 - 1.030 [facility] UA Auto SS UA Spec Desc Clean Catch (09/06/22 11:19 AM) Normal [facility] UA Auto SS Urobilinogen Qn (U) [id number] {Georgina'U}/dL Normal 0.0 - 1.0 EU/dL [facility] UA Auto SS WBC Auto Ql (U) Negative (09/06/22 11:19 AM) Normal Negative [facility] UA Auto SS WBC LM.HPF (Urine sed) [#/Area] 0-5 /HPF Normal 0-5/HPF [facility] UA Auto SS BLOOD BANKOrdered By: John Montague on 08-14-2022 ABO/Rh Interp Positive Invalid Interpretation Code [facility] BB Subsection CHEMISTRYOrdered By: SYSTEM SYSTEM on 08-14-2022 Albumin [Mass/Vol] 4.0 g/dL Normal 3.3 - 5.0 gm/dL [facility] Albumin/Globulin [Mass ratio] 1.2 {ratio} Normal 1.1 - 2.2 [facility] ALP [Catalytic activity/Vol] 56 [iU]/d Normal 21 - 98 Int._Unit/L [facility] ALT No additional P-5'-P [Catalytic activity/Vol] 14 [iU]/d Normal 6 - 46 Int._Unit/L [facility] Anion gap [Moles/Vol] 10 mmol/L Normal 6 - 16 mEq/L [facility] AST [Catalytic activity/Vol] 16 [iU]/d Normal 5 - 43 Int._Unit/L [facility] Bilirubin [Mass/Vol] 0.4 mg/dL Normal 0.0 - 1 .1 mg/dL [facility] Bilirubin.direct [Mass/Vol] 0.1 mg/dL Normal 0.1 - 0.4 mg/dL [facility] Bilirubin.indirect [Mass or moles/Vol] 0.3 mg/dL Normal 0.1 - 0.9 mg/dL [facility] Calcium [Mass/Vol] 9.0 mg/dL Normal 8.9 - 11. 1 mg/dL [facility] Chloride [Moles/Vol] 103 mmol/L Normal 101 - 1 11 mmol/L [facility] CO2 [Moles/Vol] 27 mmol/L Normal 21 - 31 mmol/L [facility] Creatinine [Mass/Vol] 0.8 mg/dL Normal 0.5 - 1.3 mg/dL [facility] GFR/1.73 sq M.predicted among blacks MDRD (S/P/Bld) [Vol rate/Area] mL/min/1.73 m2 Normal >=59mL/min/1 .73 m2 [facility] Chem S GFR/1.73 sq M.predicted among non-blacks MDRD (S/P/Bld) [Vol rate/Area] mL/min/1.73 m2 Normal >=59mL/min/1 .73 m2 [facility] Chem S Globulin (S) [Mass/Vol] 3.2 g/dL Normal 1.4 - 4.0 gm/dL [facility] Glucose [Mass/Vol] 111 mg/dL Normal 55 - 199 mg/dL [facility] Lipase [Catalytic activity/Vol] 38 U/L Normal 13 - 58 unit/L [facility] Potassium [Moles/Vol] 3.7 mmol/L Normal 3.5 - 5.3 mmol/L [facility] Protein [Mass/Vol] 7.2 g/dL Normal 6.0 - 7.8 gm/dL [facility] Sodium [Moles/Vol] 136 mmol/L Normal 135 - 145 mmol/L [facility] Urea nitrogen [Mass/Vol] 14 mg/dL Normal 5 - 21 mg/d L [facility] Urea nitrogen/Creatinine [Mass ratio] 18 mg/mg Normal 10 - 20 [facility] CHEMISTRYOrdered By: Kenneth Mo rster on 08-14-2022 HCG.beta subunit Qn 267 m[IU]/mL High 1 - 3 mIU/mL F [facility] HEMATOLOGYOrdered By: SYSTEM SYSTEM on 08-14-2022 Basophils/100 WBC (Bld) 0.6 % Normal 0.0 - 2.0 % [facility] Basophils/Leukocytes Auto (Bld) [Pure # fraction] 0.1 E9/L Normal 0.0 - 0.2 E9/L [facility] Eosinophils/100 WBC (Bld) 1.4 % Normal 0.0 - 8.0 % [facility] Eosinophils/Leukocytes Auto (Bld) [Pure # fraction] 0.1 E9/L Normal 0.0 - 0.5 E9/L [facility] Lymphocytes/100 WBC (Bld) 33.5 % Normal 14.0 - 50.0 % [facility] Lymphocytes/Leukocytes Auto (Bld) [Pure # fraction] 3.1 E9/L Normal 1.0 - 4.0 E9/L [facility] Monocytes/100 WBC (Bld) 7.6 % Normal 4.0 - 14.0 % [facility] Monocytes/Leukocytes Auto (Bld) [Pure # fraction] 0.7 E9/L Normal 0.2 - 1.0 E9/L [facility] Neutrophils/100 WBC (Bld) 56.9 % Normal 36.0 - 75.0 % [facility] Neutrophils/Leukocytes Auto (Bld) [Pure # fraction] 5.3 E9/L Normal 2.0 - 7.5 E9/L [facility] HEMATOLOGYOrdered By: Sameera Bellamy on 08-14-2022 Erythrocyte distribution width (RBC) [Ratio] 16.0 % High 10.9 - 14.2 % [facility] Hematocrit (Bld) [Volume fraction] 35.7 % Normal 34.0 - 46.0 % [facility] Hemoglobin (Bld) [Mass/Vol] 11.5 g/dL Low 12.0 - 16.0 gm/dL [facility] MCH (RBC) [Entitic mass] 25.1 pg Low 27. 0 - 34.0 pg [facility] MCHC (RBC) [Mass/Vol] 32.1 g/dL Normal 31.4 - 36.0 gm/dL [facility] MCV (RBC) [Entitic vol] 78.1 fL Low 80.0 - 100.0 fL [facility] Platelet mean volume (Bld) [Entitic vol] 7.6 fL Normal 6.4 - 10.8 fL [facility] Platelets (Bld) [#/Vol] 289.0 E9/L Normal 150. 0 - 500.0 E9/L [facility] RBC (Bld) [#/Vol] 4.6 E12/L Normal 4.3 - 5.9 E12/L [facility] WBC corrected for nucl RBC Auto (Bld) [#/Vol] 9.3 E9/L Normal 4.0 - 11.0 E9/L [facility] URINALYSISOrdered By: Sameera Bellamy on 08-14-2022 Bacteria LM Ql (Urine sed) Trace /HPF Normal Trace/HPF [facility] UA Auto SS Bilirubin Ql (U) Negative (08/14/22 7:29 PM) Normal Negative [facility] UA Auto SS Clarity (U) Slightly Cloudy *ABN* (08/14/22 7:29 PM) Invalid Interpretation Code Clear [facility] UA Auto SS Color (U) Yellow (08/14/22 7:29 PM) Normal Yellow [facility] UA Auto SS Epithelial cells.squamous LM.HPF (Urine sed) [#/Area] 0-2 /HPF Normal 0-2/HPF [facility] UA Aut o SS Glucose Test strip (U) [Mass/Vol] Negative (08/14/22 7:29 PM) Normal Negative [facility] UA Auto SS Hemoglobin Ql (U) Negative (08/14/22 7:29 PM) Normal Negative [facility] UA Auto SS Ketones (U) [Mass/Vol] Negative (08/14/22 7:29 PM) Normal Negative [facility] UA Auto SS [employer].plasma/Muncy.R BC (Bld) [Mass ratio] 0-3 /HPF Normal 0-3/HPF [facility] UA Au to SS Mucus Ql (Urine sed) Trace (08/14/22 7:29 PM) Normal [facility] UA Auto SS Nitrite Ql (U) Negative (08/14/22 7:29 PM) Normal Negative [facility] UA Auto SS pH (U) 6.0 *NA* (08/14/22 7:29 PM) Invalid Interpretation Code 5.0 - 9.0 [facility] UA Auto SS Protein (U) [Mass/Vol] Negative (08/14/22 7:29 PM) Normal Negative [facility] UA Auto SS Specific gravity (U) [Rel density] >=1.030 *NA* (08/14/22 7:29 PM) Invalid Interpretation Code 1.005 - 1.030 [facility] UA Auto SS UA Spec Desc Clean Catch (08/14/22 7:29 PM) Normal [facility] UA Auto SS Urobilinogen Qn (U) [id number] {Georgina'U}/dL Normal 0.0 - 1.0 EU/dL [facility] UA Auto SS WBC Auto Ql (U) Negative (08/14/22 7:29 PM) Normal Negative [facility] UA Auto SS WBC LM.HPF (Urine sed) [#/Area] 0-5 /HPF Normal 0-5/HPF [facility] UA Auto SS CHLAMYDIA/GONOCOCCUS ALFREDO (SW AB/URINE/PAPon 07-15-2022 Chlamydia trachomatis, ALFREDO Negative Normal Negative [facility] Comment on above: Performed By: #### C T/NGNA #### [facility] [address] [place] [address] Dr. Cyril Hendricks Neisseria gonorrhoeae, ALFREDO Negative Normal Negative [facility] Comment on above: Performed By: #### C T/NGNA #### [facility] [address] [address] [address] Cyril Hendricks VAGINITIS/VAGINOSIS DNA PROB Maurice 07-13-2022 Krista species Negative Normal Negative [facility] Comment on above: Performed By: #### U MICRO, UACSIND #### [facility] [address] [place] [address] Dr. Cyril Hendricks Gardnerella vaginalis Positive Abnormal Negative [facility] Comment on above: Performed By: #### U MICRO, UACSIND #### [facility] [address] [address] [address] Cyril Hendricks Trichomonas vaginalis Negative Normal Negative [facility] Comment on above: Performed By: #### U MICRO, UACSIND #### [facility] [address] [address] [address] Cyril Hendricks COVID/FLU RT-PCRon SARS-CoV-2 (COVID-19) RNA ALFREDO+probe Ql (Unsp spec) Negative [employer] Other COVID/FLU RT-PCR Negative [facility] [employer] Other Quick Strepon 06-24-2022 S. pyogenes Org specific cx Ql (Throat) Negative [facility] [employer] Other Quick Strep [facility] [employer] Other CBC AUTO DIFFon 01-08-2022 BASO # 0.1 103/ul Normal 0.0-0.[address] [facility] Comment on above: Performed By: #### C BC #### [facility] [address] [place] [address] Dr. Cyril Hendricks Basophils/100 WBC (Bld) 0.4 % Normal 0.2-2.0 [facility] Comment on above: Performed By: #### C BC #### [facility] [address] [place] [address] Dr. Cyril Hendricks EO # 0.1 103/ul Normal 0.0-0.[address] [facility] Comment on above: Performed By: #### C BC #### [facility] [address] [place] [address] Dr. Cyril Hendricks Eosinophils/100 WBC (Bld) 0.9 % Normal 0.9-7.[address] [facility] Comment on above: Performed By: #### C BC #### [facility] [address] [place] [address] Dr. Cyril Hendricks Erythrocyte distribution width (RBC) [Ratio] 12.3 % Normal 11.0-15.[address] [facility] Comment on above: Performed By: #### C BC #### [facility] [address] [place] [address] Dr. Cyril Hendricks Hematocrit (Bld) [Volume fraction] 30.0 % Critically low 36.0-48.[address] [facility] Comment on above: Performed By: #### C BC #### [facility] [address] [place] [address] Dr. Cyril Hendricks Hemoglobin (Bld) [Mass/Vol] 10.2 g/dL Critically low 12.0-16.[address] [facility] Comment on above: Performed By: #### C BC #### [facility] [address] [place] [address] Dr. Cyril Hendricks IG # 0.05 10e3/ul Critically high 0.00-0.03 [facility] Comment on above: Performed By: #### C BC #### [facility] [address] [place] [address] Dr. Cyril Hendricks IG % 0.4 % Normal 0.0-0.[address] [facility] Comment on above: Performed By: #### C BC #### [facility] [address] [place] [address] Dr. Cyril Hendricks LYMPH # 2.8 103/ul Normal 1.2-3.[address] [facility] Comment on above: Performed By: #### C BC #### [facility] [address] [place] [address] Dr. Cyril Hendricks Lymphocytes/100 WBC (Bld) 19.7 % Critically low 20.5-60.[address] [facility] Comment on above: Performed By: #### C BC #### [facility] [address] [place] [address] Dr. Cyril Hendricks MANUAL DIFF REQ NO Normal [facility] Comment on above: Performed By: #### C BC #### [facility] [address] [place] [address] Dr. Cyril Hendricks MCH (RBC) [Entitic mass] 30.6 pg Normal 26.7-34.[address] [facility] Comment on above: Performed By: #### C BC #### [facility] [address] [place] [address] Dr. Cyril Hendricks MCHC (RBC) [Mass/Vol] 34.0 g/dL Normal 29.9-35.[address] [facility] Comment on above: Performed By: #### C BC #### [facility] [address] [place] [address] Dr. Cyril Hendricks MCV (RBC) [Entitic vol] 90.1 fL Normal 81.0-99.0 [facility] Comment on above: Performed By: #### C BC #### [facility] [address] [place] [address] Dr. Cyril Hendricks MONO # 0.8 103/ul Normal 0.3-0.[address] [facility] Comment on above: Performed By: #### C BC #### [facility] [address] [address] [address] Cyril Hendricks Monocytes/100 WBC (Bld) 5.9 % Normal 1.7-12.0 [facility] Comment on above: Performed By: #### C BC #### [facility] [address] [address] [address] Cyril Hendricks NEUT # 10.3 103/ul Critically high 1.4-6.5 [facility] Comment on above: Performed By: #### C BC #### [facility] [address] [place] [address] Dr. Cyril Hendricks Neutrophils/100 WBC (Bld) 72.7 % Normal 43.0-75.[address] [facility] Comment on above: Performed By: #### C BC #### [facility] [address] [place] [address] Dr. Cyril Hendricks Platelet mean volume (Bld) [Entitic vol] 9.8 fL Normal 9.5-13.[address] [facility] Comment on above: Performed By: #### C BC #### [facility] [address] [place] [address] Dr. Cyril Hendricks PLT 207 103/ul Normal 150-[address] [facility] Comment on above: Performed By: #### C BC #### [facility] [address] [place] [address] Dr. Cyril Hendricks RBC 3.33 106/ul Critically low 4.20-5.40 [facility] Comment on above: Performed By: #### C BC #### [facility] [address] [place] [address] Dr. Cyril Hendricks WBC 14.2 103/ul Critically high 4.0-11.0 [facility] Comment on above: Performed By: #### C BC #### [facility] [address] [place] [address] Dr. Cyril Hendricks CBC AUTO DIFFon 01-07-2022 BASO # 0.1 103/ul Normal 0.0-0.[address] [facility] Comment on above: Performed By: #### U MICRO, UACSIND #### [facility] [address] [address] [address] Cyril Hendricks Basophils/100 WBC (Bld) 0.5 % Normal 0.2-2.0 [facility] Comment on above: Performed By: #### U MICRO, UACSIND #### [facility] [address] [place] [address] Dr. Cyril Hendricks EO # 0.1 103/ul Normal 0.0-0.[address] [facility] Comment on above: Performed By: #### U MICRO, UACSIND #### [facility] [address] [place] [address] Dr. Cyril Hendricks Eosinophils/100 WBC (Bld) 0.9 % Normal 0.9-7.[address] [facility] Comment on above: Performed By: #### U MICRO, UACSIND #### [facility] [address] [place] [address] Dr. Cyril Hendricks Erythrocyte distribution width (RBC) [Ratio] 12.4 % Normal 11.0-15.[address] [facility] Comment on above: Performed By: #### U MICRO, UACSIND #### [facility] [address] [place] [address] Dr. Cyril Hendricks Hematocrit (Bld) [Volume fraction] 34.3 % Critically low 36.0-48.[address] [facility] Comment on above: Performed By: #### U MICRO, UACSIND #### [facility] [address] [place] [address] Dr. Cyril Hendricks Hemoglobin (Bld) [Mass/Vol] 11.6 g/dL Critically low 12.0-16.[address] [facility] Comment on above: Performed By: #### U MICRO, UACSIND #### [facility] [address] [place] [address] Dr. Cyril Hendricks IG # 0.06 10e3/ul Critically high 0.00-0.03 [facility] Comment on above: Performed By: #### U MICRO, UACSIND #### [facility] [address] [address] [address] Cyril Hendricks IG % 0.4 % Normal 0.0-0.[address] [facility] Comment on above: Performed By: #### U MICRO, UACSIND #### [facility] [address] [place] [address] Dr. Cyril Hendricks LYMPH # 3.1 103/ul Normal 1.2-3.[address] [facility] Comment on above: Performed By: #### U MICRO, UACSIND #### [facility] [address] [place] [address] Dr. Cyril Hendricks Lymphocytes/100 WBC (Bld) 20.4 % Critically low 20.5-60.[address] [facility] Comment on above: Performed By: #### U MICRO, UACSIND #### [facility] [address] [place] [address] Dr. Cyril Hendricks MANUAL DIFF REQ NO Normal [facility] Comment on above: Performed By: #### U MICRO, UACSIND #### [facility] [address] [place] [address] Dr. Cyril Hendricks MCH (RBC) [Entitic mass] 30.6 pg Normal 26.7-34.[address] [facility] Comment on above: Performed By: #### U MICRO, UACSIND #### [facility] [address] [place] [address] Dr. Cyril Hendricks MCHC (RBC) [Mass/Vol] 33.8 g/dL Normal 29.9-35.[address] [facility] Comment on above: Performed By: #### U MICRO, UACSIND #### [facility] [address] [place] [address] Dr. Cyril Hendricks MCV (RBC) [Entitic vol] 90.5 fL Normal 81.0-99.0 [facility] Comment on above: Performed By: #### U MICRO, UACSIND #### [facility] [address] [place] [address] Dr. Cyril Hendricks MONO # 0.9 103/ul Critically high 0.3-0.8 [facility] Comment on above: Performed By: #### U MICRO, UACSIND #### [facility] [address] [address] [address] Cyril Hendricks Monocytes/100 WBC (Bld) 6.2 % Normal 1.7-12.0 [facility] Comment on above: Performed By: #### U MICRO, UACSIND #### [facility] [address] [address] [address] Cyril Hendricks NEUT # 10.9 103/ul Critically high 1.4-6.5 [facility] Comment on above: Performed By: #### U MICRO, UACSIND #### [facility] [address] [address] [address] Cyril Hendricks Neutrophils/100 WBC (Bld) 71.6 % Normal 43.0-75.[address] [facility] Comment on above: Performed By: #### U MICRO, UACSIND #### [facility] [address] [place] [address] Dr. Cyril Hendricks Platelet mean volume (Bld) [Entitic vol] 11.1 fL Normal 9.5-13.[address] [facility] Comment on above: Performed By: #### U MICRO, UACSIND #### [facility] [address] [place] [address] Dr. Cyril Hendricks PLT 240 103/ul Normal 150-[address] [facility] Comment on above: Performed By: #### U MICRO, UACSIND #### [facility] [address] [place] [address] Dr. Cyril Hendricks RBC 3.79 106/ul Critically low 4.20-5.40 [facility] Comment on above: Performed By: #### U MICRO, UACSIND #### [facility] [address] [place] [address] Dr. Cyril Hendricks WBC 15.3 103/ul Critically high 4.0-11.0 [facility] Comment on above: Performed By: #### U MICRO, UACSIND #### [facility] [address] [place] [address] Dr. Cyril Hendricks Covid-19 PCR (CVDTB)on SARS-CoV-2 (COVID-19) RNA ALFREDO+probe Ql (Unsp spec) Not detected Normal NOT DETECTED [facility] Comment on above: Result Comment: When diagnostic testing is negative, the possibility of a false negative should be considered in the context of a patient's recent exposures and the presence of clinical signs and symptoms consistent with SARS-CoV-2. This test is not yet approved or cleared by the [place] FDA. When there are no FDA-approved or cleared tests available, and other criteria are met, FDA can make tests available under an emergency access mechanism called an Emergency Use Authorization (EUA). The EUA for this test is supported by the Pediatric Rn of Health and Human Service's declaration that circumstances exist to justify the emergency use of in vitro diagnostics for the detection and/or diagnosis of the virus that causes COVID-19. This EUA will remain in effect for the duration of the COVID-19 declaration justifying emergency of IVDs, unless it is terminated or revoked by the FDA (after which the test may no longer be used). Performed By: #### H CVPCRR #### [facility] [address] [place] [address] Dr. Cyril Hendricks DRUG SCREEN RAPID (URINE)on 01-07-2022 AMP Negative Normal NEGATIVE [facility] Comment on above: Performed By: #### U MICRO, UACSIND #### [facility] [address] [place] [address] Dr. Cyril Hendricks BAR Negative Normal NEGATIVE [facility] Comment on above: Performed By: #### U MICRO, UACSIND #### [facility] [address] [place] [address] Dr. Cyril Hendricks BUP Negative Normal NEGATIVE [facility] Comment on above: Performed By: #### U MICRO, UACSIND #### [facility] [address] [place] [address] Dr. Cyril Hendricks BZO Negative Normal NEGATIVE [facility] Comment on above: Performed By: #### U MICRO, UACSIND #### [facility] [address] [address] [address] Cyril Hendricks DARIN Negative Normal NEGATIVE [facility] Comment on above: Performed By: #### U MICRO, UACSIND #### [facility] [address] [address] [address] Cyril Hendricks CUT-OFFS SEE BELOW Normal [facility] Comment on above: Result Comment: AMP (Amphetamine): 500ng/mL, BAR (Barbituates): 200 ng/mL, BZO (Benzodiazepines): 150 ng/mL, BUP (Buprenorphine): 10 ng/mL, DARIN (Cocaine): 150 ng/mL, mAMP (Methamphetamine): 500 ng/mL, MTD (Methadone): 200 ng/mL, OPI (Opiates): 100 ng/mL, OXY (Oxycodone): 100 ng/mL, PCP (Phencyclidine): 25 ng/mL, PPX (Propoxyphene): 300 ng/mL, THC (Cannabinoids): 50 ng/mL, TCA (Trycyclic Antidepressants): 300 ng/mL Performed By: #### U MICRO, UACSIND #### [facility] [address] [place] [address] Dr. Cyril Hendricks DRUG CUT HEADER DRUG CLASS TEST SYSTEM CUT-OFF CONCENTRATIONS ARE FOLLOWS: Normal [facility] Comment on above: Performed By: #### U MICRO, UACSIND #### [facility] [address] [place] [address] Dr. Cyril Hendricks mAMP Negative Normal NEGATIVE [facility] Comment on above: Performed By: #### U MICRO, UACSIND #### [facility] [address] [address] [address] Cyril Hendricks MTD Negative Normal NEGATIVE [facility] Comment on above: Performed By: #### U MICRO, UACSIND #### [facility] [address] [address] [address] Cyril Hendricks OPI Negative Normal NEGATIVE [facility] Comment on above: Performed By: #### U MICRO, UACSIND #### [facility] [address] [place] [address] Dr. Cyril Hendricks OXY Negative Normal NEGATIVE [facility] Comment on above: Performed By: #### U MICRO, UACSIND #### [facility] [address] [address] [address] Cyril Hendricks PCP Negative Normal NEGATIVE [facility] Comment on above: Performed By: #### U MICRO, UACSIND #### [facility] [address] [place] [address] Dr. Cyril Hendricks PPX Negative Normal NEGATIVE [facility] Comment on above: Performed By: #### U MICRO, UACSIND #### [facility] [address] [place] [address] Dr. Cyril Hendricks TCA Negative Normal NEGATIVE [facility] Comment on above: Performed By: #### U MICRO, UACSIND #### [facility] [address] [place] [address] Dr. Cyril Hendricks THC Negative Normal NEGATIVE [facility] Comment on above: Performed By: #### U MICRO, UACSIND #### [facility] [address] [place] [address] Dr. Cyril Hendricks TYPE AND SCREENon 01-07-2022 TYPE AND SCREEN Negative Normal [facility] Comment on above: Performed By: #### H CVPCRR #### [facility] [address] [place] [address] Dr. Cyril Hendricks CULTURE URINEon 12-29-2021 CULTURE URINE Culture Observations: NO GROWTH. Normal [facility] Comment on above: Performed By: #### U RCX #### [facility] [address] [place] [address] Dr. Cyril Hendricks UA (CLEAN/CATCH) ENVIRONMENTAL CONFLICT MANAGER/MICRO I F IND.on 12-29-2021 Bilirubin Ql (U) Negative Normal NEGATIVE [facility] Comment on above: Performed By: #### U MICRO, UACSIND #### [facility] [address] [place] [address] Dr. Cyril Hendricks Clarity (U) SL CLOUDY Abnormal CLEAR [facility] Comment on above: Performed By: #### U MICRO, UACSIND #### [facility] [address] [place] [address] Dr. Cyril Hendricks Color (U) LT. YELLOW Normal YELLOW [facility] Comment on above: Performed By: #### U MICRO, UACSIND #### [facility] [address] [address] [address] Cyril Hendricks Glucose Ql (U) Negative Normal NEGATIVE [facility] Comment on above: Performed By: #### U MICRO, UACSIND #### [facility] [address] [address] [address] Cyril Hendricks Hemoglobin Ql (U) Negative Normal NEGATIVE [facility] Comment on above: Performed By: #### U MICRO, UACSIND #### [facility] [address] [address] [address] Cyril Hendricks Ketones Ql (U) Negative Normal NEGATIVE [facility] Comment on above: Performed By: #### U MICRO, UACSIND #### [facility] [address] [address] [address] Cyril Hendricks LEUKOCYTES LARGE Abnormal NEGATIVE [facility] Comment on above: Performed By: #### U MICRO, UACSIND #### [facility] [address] [address] [address] Cyril Hendricks Nitrite Ql (U) Negative Normal NEGATIVE [facility] Comment on above: Performed By: #### U MICRO, UACSIND #### [facility] [address] [address] [address] Cyril Hendricks pH (U) 6.5 [pH] Normal 5-[address] [facility] Comment on above: Performed By: #### U MICRO, UACSIND #### [facility] [address] [address] [address] Cyril Hendricks SPEC GRAVITY 1.010 Normal 1.005-<=1.[address] [facility] Comment on above: Performed By: #### U MICRO, UACSIND #### [facility] [address] [address] [address] Cyril Hendricks UA PROTEIN Negative Normal NEGATIVE/ TRACE [facility] Comment on above: Performed By: #### U MICRO, UACSIND #### [facility] [address] [address] [address] Cyril Hendricks UR MICRO IND INDICATED Normal [facility] Comment on above: Performed By: #### U MICRO, UACSIND #### [facility] [address] [place] [address] Dr. Cyril Hendricks Urobilinogen Qn (U) 0.2 {Georgina'U}/dL Normal 0.2 - 1. 0 [facility] Comment on above: Performed By: #### U MICRO, UACSIND #### [facility] [address] [address] [address] Cyril Hendricks URINE MICROSCOPIC ONLYon BACTERIA SMALL Abnormal NONE SEEN [facility] Comment on above: Performed By: #### U MICRO, UACSIND #### [facility] [address] [address] [address] Cyril Hendricks Bacteria identified Cx Nom (U) INDICATED Normal [facility] Comment on above: Performed By: #### U MICRO, UACSIND #### [facility] [address] [place] [address] Dr. Cyril Hendricks CAST NONE SEEN Normal NONE SEEN [facility] Comment on above: Performed By: #### U MICRO, UACSIND #### [facility] [address] [place] [address] Dr. Cyril Hendricks Crystals LM Nom (Urine sed) NONE SEEN Normal NONE SEEN [facility] Comment on above: Performed By: #### U MICRO, UACSIND #### [facility] [address] [place] [address] Dr. Cyril Hendricks Epithelial cells LM Ql (Urine sed) MANY Abnormal NONE SEEN /RARE [facility] Comment on above: Performed By: #### U MICRO, UACSIND #### [facility] [address] [place] [address] Dr. Cyril Hendricks MUCOUS NONE SEEN Normal NONE SEEN [facility] Comment on above: Performed By: #### U MICRO, UACSIND #### [facility] [address] [place] [address] Dr. Cyril Hendricks RBC 0-2 Normal 0-2 [facility] Comment on above: Performed By: #### U MICRO, UACSIND #### [facility] [address] [place] [address] Dr. Cyril Hendricks WBC 10-20 Abnormal NONE SEEN [facility] Comment on above: Performed By: #### U MICRO, UACSIND #### [facility] [address] [place] [address] Dr. Cyril Hendricks GROUP B STREP CULTUREon 12-07 S. agalactiae Ag Ql (Unsp spec) Culture Observations: NEGATIVE FOR GROUP B STREPTOCOCCUS. Normal [facility] Comment on above: Performed By: #### G BSCX #### [facility] [address] [place] [address] Dr. Cyril Hendricks SSAon 12-13-2021 SSA <0.3 Normal <7.0 [facility] Comment on above: Result Comment: Reference Range: <7.0 Negative 7.0-10.0 Equivocal >10.0 Positive Performed By: #### S SARO, TSH, FT4, SSBLA #### [email or web address] [address] [place] [id number] Human Resources Operations Director: Homer Hoffman MD SSBon 12-13-2021 SSB <0.3 Normal <7.0 [facility] Comment on above: Result Comment: Reference Range: <7.0 Negative 7.0-10.0 Equivocal >10.0 Positive Performed By: #### S SARO, TSH, FT4, SSBLA #### [email or web address] [address] [place] [id number] Human Resources Operations Director: Homer Hoffman MD No Panel Informationon 12-12 [facility] [id number] T4, Freeon 12-12-2021 Thyroxine, Free 0.98 ng/dL 0.93 - 1.70 ng/dL [facility] TSHon 12-12-2021 TSH Qn 4.35 m[IU]/L [facility] [id number] Thyroid Stim. Horm.on 2021 Thyroid Stim. Horm. 4.35 uIU/mL Normal 0.30-5.00 [facility] Comment on above: Performed By: #### S SARO, TSH, FT4, SSBLA #### [email or web address] [address] [place] [address] Human Resources Operations Director: Homer Hoffman MD Thyroxine, Freeon 12-12-2021 Thyroxine, Free 0.98 ng/dL Normal 0.93-1.70 [facility] Comment on above: Performed By: #### S SARO, TSH, FT4, SSBLA #### [facility] [address] [place] [address] Human Resources Operations Director: Homer Hoffman MD US PREG BIOPHY W NON STRESSo n 11-27-2021 US PREG BIOPHY W NON STRESS EXAMINATION: US PREG BIOPHY W NON STRESS HISTORY: Irregular heart beat COMPARISON: No relevant comparison available. TECHNIQUE: Ultrasound biophysical profile was performed in the radiology department. FINDINGS: BREATHING MOVEMENTS: 2.0 GROSS BODY MOVEMENTS: 2.0 TONE: 2.0 QUALITATIVE AMNIOTIC FLUID VOLUME: 2.0 PRESENTATION: Cephalic HEART RATE: 131.1 bpm H.B./min AMNIOTIC FLUID VOLUME: 10.5 cm cm GESTATIONAL AGE: 33 weeks 3 days Other: arrhythmia CONCLUSION: Total biophysical profile score: 8.0 arrhythmia Electronically authenticated by: SOFIA KABA Date: 2021-11-27 13:[address] [facility] COVID + FLU Quick Testingon 11-13-2021 SARS-CoV-2 (COVID-19) RNA ALFREDO+probe Ql (Unsp spec) Negative [facility] [employer] Other COVID + FLU Quick Testing Negative [facility] [employer] Other GLUCOSE - 1HRon 10-23-2021 Glucose [Mass/Vol] 83 mg/dL Normal 74-[address] [facility] Comment on above: Performed By: #### G LU1HR #### [facility] [address] [place], [place] [address] Dr. Cyril Hendricks CHLAMYDIA/GONOCOCCUS ALFREDO (SW AB/URINE/PAPon 10-05-2021 Chlamydia trachomatis, ALFREOD Negative Normal Negative [facility] Comment on above: Performed By: #### C T/NGNA #### [facility] [address] [place], [place] [address] Dr. Cyril Hendricks Neisseria gonorrhoeae, ALFREDO Negative Normal Negative [facility] Comment on above: Performed By: #### C T/NGNA #### [facility] [address] [place] [address] Dr. Cyril Hendricks VAGINITIS/VAGINOSIS DNA PROB Maurice 10-04-2021 Krista species Positive Abnormal Negative [facility] Comment on above: Performed By: #### H CVPCRR #### [facility] [address] [place] [address] Dr. Cyril Hendricks Gardnerella vaginalis Negative Normal Negative [facility] Comment on above: Performed By: #### H CVPCRR #### [facility] [address] [place] [address] Dr. Cyril Hendricks Trichomonas vaginalis Negative Normal Negative [facility] Comment on above: Performed By: #### H CVPCRR #### [facility] [address] [place] [address] Dr. Cyril Hendricks HEP B SURFACE ANTIGEN SCREEN on 10-03-2021 HBsAg Screen Negative Normal Negative [facility] Comment on above: Performed By: #### H CVPCRR #### [facility] [address] [place] [address] Dr. Cyril Hendricks HEPATITIS C VIRUS AB W/ REFL EX QUANTon 10-03-2021 HCV AB <0.1 Normal 0.0-0.[address] [facility] Comment on above: Performed By: #### H CVPCRR #### [facility] [address] [place] [address] Dr. Cyril Hendricks Interpretation: Comment Normal [facility] Comment on above: Result Comment: Nega tive Not infected with HCV, unless recent infection is suspected or other evidence exists to indicate HCV infection. Performed By: #### H CVPCRR #### [facility] [address] [place] [address] Dr. Cyril Hendricks HIV 1 AND 2 WITH REFLEXon HIV Screen 4th Generation wRfx Non-Reactive Normal Non Reactive [facility] Comment on above: Result Comment: HIV Negative HIV-1/HIV-2 antibodies and HIV-1 p24 antigen were NOT detected. There is no laboratory evidence of HIV infection. Performed By: #### H IV12 #### [facility] [address] [place] [address] Dr. Cyril Hendricks RPR QUANTon 10-03-2021 Rapid Plasma Reagin, Quant Non-Reactive Normal NonRea<1:[address] [facility] Comment on above: Result Comment: Plea se Note: This test does not meet current guidelines for screening and diagnosis of syphilis. This test is intended for following treatment response in patients being treated for syphilis infection. To screen for syphilis infection, a reflex cascade that includes both RPR and a treponema-specific assay should be utilized, such as Treponema pallidum (Syphilis) Screening [place] (855355) or Rapid Plasma Reagin (RPR) Test With Reflex to Quantitative RPR and Confirmatory Treponema pallidum Antibodies (429191). Performed By: #### U MICRO, UACSIND #### [facility] [address] [place] [address] Dr. Cyril Hendricks RUBELLA AB IGGon 10-03-2021 Rubella Antibodies, IgG <0.90 Critically low Immune > 0.[address] [facility] Comment on above: Result Comment: Non- immune <0.90 Equivocal 0.90 - 0.99 Immune >0.99 Performed By: #### U MICRO, UACSIND #### [facility] [address] [place] [address] Dr. Cyril Hendricks CBC AUTO DIFFon 10-02-2021 BASO # 0.1 103/ul Normal 0.0-0.[address] [facility] Comment on above: Performed By: #### U MICRO, UACSIND #### [facility] [address] [place] [address] Dr. Cyril Hendricks Basophils/100 WBC (Bld) 0.4 % Normal 0.2-2.0 [facility] Comment on above: Performed By: #### U MICRO, UACSIND #### [facility] [address] [place] [address] Dr. Cyril Hendricks EO # 0.1 103/ul Normal 0.0-0.[address] [facility] Comment on above: Performed By: #### U MICRO, UACSIND #### [facility] [address] [address] [address] Cyril Hendricks Eosinophils/100 WBC (Bld) 1.1 % Normal 0.9-7.[address] [facility] Comment on above: Performed By: #### U MICRO, UACSIND #### [facility] [address] [place] [address] Dr. Cyril Hendricks Erythrocyte distribution width (RBC) [Ratio] 13.5 % Normal 11.0-15.[address] [facility] Comment on above: Performed By: #### U MICRO, UACSIND #### [facility] [address] [place] [address] Dr. Cyril Hendricks Hematocrit (Bld) [Volume fraction] 34.5 % Critically low 36.0-48.[address] [facility] Comment on above: Performed By: #### U MICRO, UACSIND #### [facility] [address] [place] [address] Dr. Cyril Hendricks Hemoglobin (Bld) [Mass/Vol] 12.0 g/dL Normal 12.0-16.[address] [facility] Comment on above: Performed By: #### U MICRO, UACSIND #### [facility] [address] [place] [address] Dr. Cyril Hendricks IG # 0.04 10e3/ul Critically high 0.00-0.03 [facility] Comment on above: Performed By: #### U MICRO, UACSIND #### [facility] [address] [place] [address] Dr. Cyril Hendricks IG % 0.3 % Normal 0.0-0.[address] [facility] Comment on above: Performed By: #### U MICRO, UACSIND #### [facility] [address] [place] [address] Dr. Cyril Hendricks LYMPH # 2.6 103/ul Normal 1.2-3.[address] [facility] Comment on above: Performed By: #### U MICRO, UACSIND #### [facility] [address] [place] [address] Dr. Cyril Hendricks Lymphocytes/100 WBC (Bld) 21.3 % Normal 20.5-60.[address] [facility] Comment on above: Performed By: #### U MICRO, UACSIND #### [facility] [address] [place] [address] Dr. Cyril Hendricks MANUAL DIFF REQ NO Normal [facility] Comment on above: Performed By: #### U MICRO, UACSIND #### [facility] [address] [place] [address] Dr. Cyril Hendricks MCH (RBC) [Entitic mass] 32.5 pg Normal 26.7-34.[address] [facility] Comment on above: Performed By: #### U MICRO, UACSIND #### [facility] [address] [place] [address] Dr. Cyril Hendricks MCHC (RBC) [Mass/Vol] 34.8 g/dL Normal 29.9-35.[address] [facility] Comment on above: Performed By: #### U MICRO, UACSIND #### [facility] [address] [place] [address] Dr. Cyril Hendricks MCV (RBC) [Entitic vol] 93.5 fL Normal 81.0-99.0 [facility] Comment on above: Performed By: #### U MICRO, UACSIND #### [facility] [address] [place] [address] Dr. Cyril Hendricks MONO # 0.8 103/ul Normal 0.3-0.[address] [facility] Comment on above: Performed By: #### U MICRO, UACSIND #### [facility] [address] [place] [address] Dr. Cyril Hendricks Monocytes/100 WBC (Bld) 6.2 % Normal 1.7-12.0 [facility] Comment on above: Performed By: #### U MICRO, UACSIND #### [facility] [address] [place] [address] Dr. Cyril Hendricks NEUT # 8.6 103/ul Critically high 1.4-6.5 [facility] Comment on above: Performed By: #### U MICRO, UACSIND #### [facility] [address] [address] [address] Cyril Hendricks Neutrophils/100 WBC (Bld) 70.7 % Normal 43.0-75.[address] [facility] Comment on above: Performed By: #### U MICRO, UACSIND #### [facility] [address] [address] [address] Cyril Hendricks Platelet mean volume (Bld) [Entitic vol] 9.1 fL Critically low 9.5-13.[address] [facility] Comment on above: Performed By: #### U MICRO, UACSIND #### [facility] [address] [address] [address] Cyril Hendricks PLT 257 103/ul Normal 150-[address] [facility] Comment on above: Performed By: #### U MICRO, UACSIND #### [facility] [address] [place] [address] Dr. Cyril Hendricks RBC 3.69 106/ul Critically low 4.20-5.40 [facility] Comment on above: Performed By: #### U MICRO, UACSIND #### [facility] [address] [address] [address] Cyril Hendricks WBC 12.2 103/ul Critically high 4.0-11.0 [facility] Comment on above: Performed By: #### U MICRO, UACSIND #### [facility] [address] [place] [address] Dr. Cyril Hendricks CULTURE URINEon 10-02-2021 CULTURE URINE Culture Observations: MODERATE GROWTH OF MIXED GENITAL DRAGAN. NO POTENTIAL PATHOGENS SEEN. Normal [facility] Comment on above: Performed By: #### H CVPCRR #### [facility] [address] [place] [address] Dr. Cyril Hendricks GLYCOHEMOGLOBIN A1Con 2021 ADA RECOMMENDATION SEE BELOW Normal [facility] Comment on above: Result Comment: ADA RECOMMENDED LIMIT 4.0 - 6.0 ADA THERAPEUTIC TARGET < 7.0 ACTION SUGGESTED > 7.0 Performed By: #### H CVPCRR #### [facility] [address] [place] [address] Dr. Cyril Hendricks Glucose [Mass/Vol] 80 mg/dL Normal [facility] Comment on above: Performed By: #### H CVPCRR #### [facility] [address] [address] [address] Cyril Hendricks HbA1c (Bld) [Mass fraction] 4.4 % Critically low 4.5-6.[address] [facility] Comment on above: Performed By: #### H CVPCRR #### [facility] [address] [address] [address] Cyril Hendricks TYPE AND SCREENon 10-02-2021 TYPE AND SCREEN Negative Normal [facility] Comment on above: Performed By: #### H CVPCRR #### [facility] [address] [place] [address] Dr. Cyril Hendricks US PREG PLACENTAon 2 US PREG PLACENTA EXAMINATION: US PREG PLACENTA HISTORY: Low lying placenta COMPARISON: 09/04/2021 FINDINGS: The placenta is posterior in location. The placental edge is 8.7 cm from the internal os. Grade 1. Heart rate: 141 bpm Cervix: Closed, 4.1 cm IMPRESSION: Interval resolution of low-lying placenta. The placental edge is now 8.7 cm from the internal cervical os Electronically authenticated by: SOFIA KABA Date: 2021-10-02 10:47 Normal [facility] US PREG ANATOMY SINGLEon US PREG ANATOMY SINGLE EXAMINATION: US PREG ANATOMY SINGLE HISTORY: anatomy study COMPARISON: No relevant comparison available. TECHNIQUE: Transabdominal sonographic examination was performed for obstetrical and evaluation. FINDINGS: Number: 1 Heart Rate: 137 H.B. /min Amniotic Fluid Volume: Subjectively normal Placental Location: Posterior with lower margin 1.0 cm from cervical os. Cervix Length: 4.1 cm; closed. ANATOMY: Normal Structures -cerebellum, choroid plexus, cisterna magna, lateral cerebral ventricles, orbits, midline falx, hard palate, four-chamber heart, RVOT, LVOT, stomach, kidneys, bladder, umbilical cord insertion into abdomen, three-vessel cord, cervical spine, thoracic spine, lumbar spine, sacral spine, right upper extremity, left upper extremity, right lower extremity, left lower extremity. SUBOPTIMALLY SEEN: None ABNORMALITIES: None BIOMETRY: BPD: 5.1 cm 21 weeks 2 days HC: 19.1 cm 21 weeks 2 days AC: 15.8 cm 21 weeks 0 days FL: 3.6 cm 21 weeks 1 days EFW: 401 g (44% by ultrasound, 29% by expected) FL/AC: 0.432287 FL/BPD: 0.483598 HC/AC: 1.948008 GESTATIONAL AGE: Age by EDC: 21 weeks, 3 days NOY by EDC: 01/12/2022 Age by current US: 21 weeks, 1 day NOY by current US: 01/14/2022 IMPRESSION: 1. Single live intrauterine with growth detailed above. 2. Posterior, low-lying placenta. Electronically authenticated by: MARS FRANKEL Date: 2021-09-04 16:[address] [facility] Vital Signs Date Time Vital Sign Value Performing Clinician Facility 09-23-2023 09:16-0400 Body temperature 98.42 [degF] [facility] 09-23-2023 09:16-0400 Diastolic blood pressure 68 mm[Hg] [facility] 09-23-2023 09:16-0400 Heart rate 82 /min [facility] 09-23-2023 09:16-0400 Respiratory rate 18 /min [facility] 09-23-2023 09:16-0400 SaO2% (BldA) [Mass fraction] 97 % [facility] 09-23-2023 09:16-0400 Systolic blood pressure 98 mm[Hg] [facility] 08-27-2023 12:24-0400 Diastolic blood pressure 61 mm[Hg] [facility] 08-27-2023 12:24-0400 Heart rate 77 /min [facility] 08-27-2023 12:24-0400 Mean blood pressure 72 mm[Hg] [facility] 08-27-2023 12:24-0400 Respiratory rate 16 /min [facility] 08-27-2023 12:24-0400 SaO2% (BldA) [Mass fraction] 97 % [facility] 08-27-2023 12:24-0400 Systolic blood pressure 93 mm[Hg] [facility] 08-27-2023 11:30-0400 Diastolic blood pressure 69 mm[Hg] [facility] 08-27-2023 11:30-0400 Heart rate 74 /min [facility] 08-27-2023 11:30-0400 Mean blood pressure 82 mm[Hg] [facility] 08-27-2023 11:30-0400 Respiratory rate 16 /min [facility] 08-27-2023 11:30-0400 SaO2% (BldA) [Mass fraction] 99 % [facility] 08-27-2023 11:30-0400 Systolic blood pressure 107 mm[Hg] [facility] 08-27-2023 10:30-0400 Diastolic blood pressure 62 mm[Hg] [facility] 08-27-2023 10:30-0400 Heart rate 91 /min [facility] 08-27-2023 10:30-0400 Mean blood pressure 77 mm[Hg] [facility] 08-27-2023 10:30-0400 Respiratory rate 18 /min [facility] 08-27-2023 10:30-0400 SaO2% (BldA) [Mass fraction] 100 % [facility] 08-27-2023 10:30-0400 Systolic blood pressure 107 mm[Hg] [facility] 08-27-2023 09:41-0400 Body temperature 98.6 [degF] [facility] 08-27-2023 09:41-0400 Heart rate 80 /min [facility] 01-04-2023 00:03-0400 Body temperature 98.78 [degF] Siva Schulte [facility] 01-04-2023 00:03-0400 Diastolic blood pressure 54 mm[Hg] Siva Eris [facility] 01-04-2023 00:03-0400 Heart rate 97 /min Siva Eris [facility] 01-04-2023 00:03-0400 Mean blood pressure 70 mm[Hg] Siva Eris [facility] 01-04-2023 00:03-0400 Respiratory rate 18 /min Siva Schulte [facility] 01-04-2023 00:03-0400 SaO2% (BldA) [Mass fraction] 94 % Siva Schulte [facility] 01-04-2023 00:03-0400 Systolic blood pressure 102 mm[Hg] Siva Schulte [facility] 01-03-2023 23:00-0400 Body temperature 100.04 [degF] Siva Schulte [facility] 01-03-2023 23:00-0400 Diastolic blood pressure 62 mm[Hg] Siva Schulte [facility] 01-03-2023 23:00-0400 Heart rate 100 /min Siva Schulte [facility] 01-03-2023 23:00-0400 Mean blood pressure 75 mm[Hg] Siva Schulte [facility] 01-03-2023 23:00-0400 Systolic blood pressure 100 mm[Hg] Siva Schulte [facility] 01-03-2023 22:42-0400 Body temperature 100.76 [degF] Siva Eris [facility] 01-03-2023 22:42-0400 Diastolic blood pressure 59 mm[Hg] Siva Eris [facility] 01-03-2023 22:42-0400 Heart rate 105 /min Siva Schulte [facility] 01-03-2023 22:42-0400 Respiratory rate 20 /min Siva Eris [facility] 01-03-2023 22:42-0400 SaO2% (BldA) [Mass fraction] 99 % Siva Schulte [facility] 01-03-2023 22:42-0400 Systolic blood pressure 96 mm[Hg] Siva Eris [facility] 10-02-2022 21:29-0400 Diastolic blood pressure 72 mm[Hg] PHYSICIAN NO [facility] 10-02-2022 21:29-0400 Heart rate 94 /min PHYSICIAN NO [facility] 10-02-2022 21:29-0400 Respiratory rate 18 /min PHYSICIAN NO [facility] 10-02-2022 21:29-0400 SaO2% (BldA) [Mass fraction] 98 % PHYSICIAN NO [facility] 10-02-2022 21:29-0400 Systolic blood pressure 141 mm[Hg] PHYSICIAN NO [facility] 10-02-2022 17:03-0400 Body height 170.18 cm PHYSICIAN NO [facility] 10-02-2022 17:03-0400 Body temperature 98.3 [degF] PHYSICIAN NO [facility] 10-02-2022 17:03-0400 Body weight 76.4 kg PHYSICIAN NO [facility] 09-25-2022 13:25-0400 Body height 170.18 cm Viet Welch Other [employer] Other 09-25-2022 13:25-0400 Body mass index (BMI) [Ratio] 26.62 kg/m2 Viet Welch Other [employer] Other 09-25-2022 13:25-0400 Body temperature 98.2 [degF] Viet Welch Other [employer] Other 09-25-2022 13:25-0400 Body weight 77.11 kg Viet Welch Other [employer] Other 09-25-2022 13:25-0400 Diastolic blood pressure 68 mm[Hg] Viet Welch Other [employer] Other 09-25-2022 13:25-0400 Respiratory rate 18 /min Viet Welch Other [employer] Other 09-25-2022 13:25-0400 SaO2% (BldA) [Mass fraction] 98 % Viet Welch Other [employer] Other 09-25-2022 13:25-0400 Systolic blood pressure 107 mm[Hg] Viet Welch Other [employer] Other 09-06-2022 13:54-0400 Diastolic blood pressure 72 mm[Hg] Wil Chandra [facility] 09-06-2022 13:54-0400 Heart rate 60 /min Wil Chandra [facility] 09-06-2022 13:54-0400 Respiratory rate 16 /min Wil Chandra [facility] 09-06-2022 13:54-0400 SaO2% (BldA) [Mass fraction] 100 % Wil Jollye [facility] 09-06-2022 13:54-0400 Systolic blood pressure 103 mm[Hg] Wil Jollye [facility] 09-06-2022 11:41-0400 Diastolic blood pressure 65 mm[Hg] Wil Jollye [facility] 09-06-2022 11:41-0400 Heart rate 58 /min Wil Jollye [facility] 09-06-2022 11:41-0400 Mean blood pressure 77 mm[Hg] Wil Jollye [facility] 09-06-2022 11:41-0400 Respiratory rate 16 /min Wil Jollye [facility] 09-06-2022 11:41-0400 SaO2% (BldA) [Mass fraction] 100 % Wil Jollye [facility] 09-06-2022 11:41-0400 Systolic blood pressure 102 mm[Hg] Wil Jollye [facility] 09-06-2022 10:42-0400 Body temperature 98.24 [degF] Wil Jollye [facility] 09-06-2022 10:42-0400 bodymassindex 1.17 Wil Jollye [facility] Comment on above: Result Comment: ^~:!ZScore [facility] 09-06-2022 10:42-0400 Diastolic blood pressure 71 mm[Hg] Wil Jollye [facility] 09-06-2022 10:42-0400 Heart rate 73 /min Wil Jollye [facility] 09-06-2022 10:42-0400 Height/Length Percentile 84.89 Wil Chandra [facility] Comment on above: Result Comment: ^~:!Percentile Source -[facility] 09-06-2022 10:42-0400 Height/Length Z-Score 1.03 Wil Chandra [facility] Comment on above: Result Comment: ^~:!ZScore [facility] 09-06-2022 10:42-0400 Respiratory rate 16 /min Wil Chandra [facility] 09-06-2022 10:42-0400 SaO2% (BldA) [Mass fraction] 98 % Wil Chandra [facility] 09-06-2022 10:42-0400 Systolic blood pressure 111 mm[Hg] Wil Chandra [facility] 09-06-2022 10:42-0400 weight 1.47 iWl Chandra [facility] Comment on above: Result Comment: ^~:!ZScore [facility] 09-06-2022 10:42-0400 Weight Percentile 92.90 % Wil Chandra [facility] Comment on above: Result Comment: ^~:!Percentile Source -[facility] 08-14-2022 21:30-0500 Diastolic blood pressure 79 mm[Hg] Bob Llanos [facility] 08-14-2022 21:30-0500 Heart rate 87 /min Bob Llanos [facility] 08-14-2022 21:30-0500 Mean blood pressure 93 mm[Hg] Bob Llanos [facility] 08-14-2022 21:30-0500 Nursing Progress Note Reason Other: pt to US via stretcher at this time. Bob Llanos [facility] 03-08-2023 21:30-0500 Respiratory rate 16 /min Bob Llanos [facility] 08-14-2022 21:30-0500 SaO2% (BldA) [Mass fraction] 100 % Bob Llanos [facility] 08-14-2022 21:30-0500 Systolic blood pressure 120 mm[Hg] Bob Llanos [facility] 08-14-2022 19:20-0500 Body temperature 98.96 [degF] Bob Llanos [facility] 08-14-2022 19:20-0500 bodymassindex 1.17 oBb Llanos [facility] Comment on above: Result Comment: ^~:!ZScore [facility] 08-14-2022 19:20-0500 Diastolic blood pressure 61 mm[Hg] Bob Llanos [facility] 08-14-2022 19:20-0500 Heart rate 98 /min Bob Llanos [facility] 08-14-2022 19:20-0500 Height/Length Percentile 84.91 Bob Llanos [facility] Comment on above: Result Comment: ^~:!Percentile Source [facility] 08-14-2022 19:20-0500 Height/Length Z-Score 1.03 Bob Llanos [facility] Comment on above: Result Comment: ^~:!ZScore [facility] 08-14-2022 19:20-0500 Respiratory rate 16 /min Bob Llanos [facility] 08-14-2022 19:20-0500 SaO2% (BldA) [Mass fraction] 99 % Bob Llanos [facility] 08-14-2022 19:20-0500 Systolic blood pressure 114 mm[Hg] Bob Llanos [facility] 08-14-2022 19:20-0500 weight 1.47 Bob Llanos [facility] Comment on above: Result Comment: ^~:!ZScore Source [facility] 08-14-2022 19:20-0500 Weight Percentile 92.94 % Bob Llanos [facility] Comment on above: Result Comment: ^~:!Percentile Source -[facility] 06-24-2022 13:30-0500 Body height 170.18 cm Viet Welch Other [employer] Other 06-24-2022 13:30-0500 Body mass index (BMI) [Ratio] 26.62 kg/m2 Viet Welch Other [employer] Other 06-24-2022 13:30-0500 Body temperature 97.8 [degF] Viet Welch Other [employer] Other 06-24-2022 13:30-0500 Body weight 77.11 kg Viet Welch Other [employer] Other 06-24-2022 13:30-0500 Diastolic blood pressure 63 mm[Hg] Viet Welch Other [employer] Other 06-24-2022 13:30-0500 Respiratory rate 18 /min Viet Welch Other [employer] Other 06-24-2022 13:30-0500 SaO2% (BldA) [Mass fraction] 98 % Viet Welch Other [employer] Other 06-24-2022 13:30-0500 Systolic blood pressure 97 mm[Hg] Viet Welch Other [employer] Other 11-13-2021 14:05-0400 Body height 170.18 cm Michael Oneil Other [employer] Other 11-13-2021 14:05-0400 Body mass index (BMI) [Ratio] 26.62 kg/m2 Claytondarlene nOeil Other [employer] Other 11-13-2021 14:05-0400 Body temperature 98.4 [degF] Michael Oneil Other [employer] Other 11-13-2021 14:05-0400 Body weight 77.11 kg Michael Oneil Other [employer] Other 11-13-2021 14:05-0400 Respiratory rate 18 /min Claytondarlene Clarice Other [employer] Other 11-13-2021 14:05-0400 SaO2% (BldA) [Mass fraction] 98 % Michael Oneil Other [employer] Other 11-06-2021 15:45-0400 Body height Kendra Witt Other [employer] Other 11-06-2021 15:45-0400 Body mass index (BMI) [Ratio] 26.62 kg/m2 Kendra Witt Other [employer] Other 11-06-2021 15:45-0400 Body weight 77.11 kg Kendra Witt Other [employer] Other 11-06-2021 15:45-0400 Respiratory rate 20 /min Kendra Witt Other [employer] Other 11-06-2021 15:[id number] SaO2% (BldA) [Mass fraction] 98 % Kendra Witt Other [facility] [employer] Other Encounters Encounter Date Encounter Type Care Provider Facility Start: 12-29-2023 End: 12-29-2023 ambulatory GONSALO ELLIS Not Available Start: 12-22-2023 End: 12-22-2023 ambulatory JUVENAL R [facility] Start: 12-01-2023 End: 12-01-2023 ambulatory JUVENAL ASHIA Not Available Start: 11-10-2023 End: 11-10-2023 ambulatory JUVENAL R [facility] Start: 10-27-2023 End: 10-27-2023 ambulatory GONSALO ELLIS Not Available Start: 09-29-2023 End: 09-29-2023 ambulatory JUVENAL ASHIA Not Available Start: 09-23-2023 End: 09-23-2023 Emergency department patient visit SELAM ELSA Facility:[facility] Start: 09-23-2023 End: 09-23-2023 Emergency department patient visit Wil Chandra [facility] Start: 09-04-2023 End: 09-04-2023 ambulatory JUVENAL ASHIA Not Available Start: 08-27-2023 End: 08-27-2023 Emergency department patient visit SELAM ELSA Facility:[facility] Start: 08-27-2023 End: 08-27-2023 Emergency department patient visit Emily Dumontchay [facility] Start: 08-18-2023 End: 08-19-2023 ambulatory SELAM ELAS Facility:[facility] Start: 01-04-2023 End: 01-04-2023 Emergency department patient visit Siva Schulte Facility:[facility] Start: 01-03-2023 End: 01-04-2023 Emergency department patient visit Siva Schulte [facility] Start: 12-12-2022 End: 12-12-2022 ambulatory Kenneth Mills Other [employer] Other Start: 12-12-2022 Telephone encounter Kenneth Mills [facility] [place] Start: 10-02-2022 End: 10-02-2022 Emergency department patient visit Jose Silverman Facility:[facility] Start: 10-02-2022 End: 10-02-2022 Emergency department patient visit PHYSICIAN SJ LERNER [facility] Work Phone: Start: 09-25-2022 End: 09-25-2022 ambulatory Viet Welch Other [employer] Other Start: 09-25-2022 Office outpatient visit 15 minutes Viet Welch [facility] Start: 09-06-2022 End: 09-06-2022 Emergency department patient visit Wil Chandra [facility] Start: 08-14-2022 End: 08-14-2022 Emergency department patient visit Bob Llanos [facility] Start: 07-11-2022 End: 07-11-2022 ambulatory ROSEANN CORRAL Facility:[facility] Start: 06-24-2022 End: 06-24-2022 ambulatory Viet Welch Other [employer] Other Start: 06-24-2022 Office outpatient visit 15 minutes Viet Welch [facility] [address] Start: 01-11-2022 End: 01-11-2022 ambulatory NONE LISTED REQUEST Facility:[facility] Start: 01-07-2022 End: 01-09-2022 Evaluation and management of inpatient DR RENATA GEORGES Facility:[facility] Start: 12-29-2021 End: 12-29-[address] JUVENAL THORPE Facility:[facility] Start: 12-19-2021 End: 07-13-[address] JUVENAL THORPE Facility:[facility] Start: 12-12-2021 End: 12-13-2021 ambulatory JUAQUIN SEWELL [facility] Start: 12-12-2021 End: 12-12-2021 Subsequent hospital visit by physician [facility] Start: 11-27-2021 End: 11-27-[address] SOFIA KABA Facility:[facility] Start: 11-13-2021 End: 11-13-2021 ambulatory Michael Oneil Other [employer] Other Start: 11-13-2021 Office outpatient visit 15 minutes Michael Oneil [facility] [address] Start: 11-06-2021 End: 11-06-2021 ambulatory Kendra Witt Other [employer] Other Start: 11-06-2021 Office outpatient visit 25 minutes Kendra Witt [facility] Start: 10-23-2021 End: 10-24-[address] JUVENAL THORPE Facility:[facility] Start: 10-02-2021 End: 10-03-[address] SOFIA KABA Facility:[facility] Start: 09-04-2021 End: 09-05-[address] RENATA GEORGES Facility:[facility] Procedures Date Procedure Procedure Detail Performing Clinician Start: 01-07-2022 Delivery of Products of Conception, External Approach DR JUVENAL THORPE Start: 01-07-2022 Division of Female Perineum, External Approach DR JUVENAL THORPE Start: 01-07-2022 Drainage of Amniotic Fluid, Therapeutic from Products of Conception, Via Natural or Artificial Opening DR JUVENAL THORPE Start: 01-07-2022 Introduction of Othe r Hormone into Peripheral Vein, Percutaneous Approach DR JUVENAL THORPE Start: 01-07-2022 Repair Perineum Musc le, Open Approach DR JUVENAL THORPE Start: 12-12-2021 Assay of free thyroxine Juaquin Sewell MD Work Phone: Elbow region structu re (body structure) Bob Llanos Plan of Treatment Date Care Activity Detail Author Start: 10-02-2022 Bacteria identified in Urine by Culture Urine Culture [facility] Start: 02-07-2022 Influenza vaccination Flu vaccine (# 1) [facility] Start: 01-09-2022 End: 01-09-2022 Patient encounter procedure 01/09/2022 Routine Perinatology [facility] Start: 01-02-2022 End: 01-02-2022 Patient encounter procedure 01/02/2022 Routine Perinatology [facility] Start: 12-26-2021 End: 12-26-2021 Patient encounter procedure 12/26/2021 Routine Perinatology [facility] Start: 12-20-2021 End: 12-20-2021 Patient encounter procedure 12/20/2021 Routine Perinatology [facility] Start: 2021 DTaP/Tdap/Td vaccine (1 - Tdap) DTaP/Tdap/Td vaccine (1 - Tdap) [facility] Start: 2020 Hepatitis C screening Hepatitis C sc reen [email or web address] Start: 2018 Screening for Chlamy nazanin trachomatis Chlamydia screen [email or web address] Start: 2017 HIV screening HIV screen [email or web address] Start: 2014 Depression Monitoring Depression Mon itoring [facility] Start: 2013 HPV vaccine (1 - 2-d ose series) HPV vaccine (1 - 2-dose series) [facility] Start: 09-16-2007 COVID-19 Vaccine (1) COVID-19 Vaccin e (1) [facility] Start: 09-16-2003 Varicella vaccine (1 of 2 - 2-dose childhood series) Varicella vaccine (1 of 2 - 2-dose childhood series) [facility] Patient Education Depression, Adult ED [facility] Work Phone: Patient referral [facility] Work Phone: End: 12-12-2021 Sjogrens syndrome-A extractable nuclear antibody [facility] Work Phone: Comment on above: Once for 1 Occurrenc es starting 12/12/2021 until 12/12/2021 End: 12-12-2021 Sjogrens syndrome-B extractable nuclear antibody [employer] Work Phone: Comment on above: Once for 1 Occurrenc es starting 12/12/2021 until 12/12/2021 Immunizations Immunization Date Immunization Notes Care Provider Simona galarza NEGATED: Highlighted row has not occurred!11-05-2019 influenza, injectable, quadrivalent, contains preservative Kendra Witt Other [employer] Other NEGATED: Highlighted row has not occurred!04-10-2019 influenza virus vaccine, unspecified formulation Bob Llanos [facility] Care Payers Date Payer Category Payer Self-pay [id number] 2002 Unknown [id number] 2.16. [id number] 2002 Unknown [id number] 2.16.84 0.1.943994.3.579.2.593 2002 Unknown [id number] 2.16.84 0.1.560735.3.579.2.593 2002 Unknown [id number] 2.16.84 0.1.770831.3.579.2.593 2002 Unknown [id number] 2.16.84 0.1.825136.3.579.2.593 2002 Unknown [id number] 2.16.84 0.1.262255.3.579.2.593 2002 Unknown [id number] 2.16.84 0.1.726522.3.579.2.593 2002 Unknown [id number] 2.16.84 0.1.576122.3.579.2.593 2002 Unknown [id number] 2.16.84 0.1.288511.3.579.2.593 2002 Unknown [id number] 2.16.84 0.1.914178.3.579.2.593 2002 Unknown [id number] 2.16.84 0.1.827078.3.579.2.593 2002 Unknown [id number] 2.16.84 0.1.285025.3.579.2.593 2002 Unknown [id number] 2.16.8 40.1.633506.3.579.2.727 2002 Unknown [id number] 2.16.8 40.1.848258.3.579.2.727 2002 Unknown [id number] 2.16.8 40.1.204310.3.579.2.727 2002 Unknown [id number] 2.16.8 40.1.898323.3.579.2.727 2002 Unknown [id number] 2.16.8 40.1.542032.3.579.2.1286 2002 Unknown [id number] 2.16.8 40.1.603846.3.579.2.1286 2002 Unknown [id number] 2.16.8 40.1.750879.3.579.2.1286 2002 Unknown [id number] 2.16.84 0.1.264750.3.579.2.1259 2002 Unknown [id number] 2.16.84 0.1.782028.3.579.2.1259 2002 Unknown [id number] 2.16.84 0.1.697903.3.579.2.1259 2002 Unknown [id number] 2.16.84 0.1.229967.3.579.2.9 2002 Unknown [id number] 2.16.84 0.1.069643.3.579.2.1259 1959 Unknown [id number] 2.1 6.840.1.116244.19 1959 Unknown [id number] Unknown [id number] 2.16.8 40.1.825856.3.579.2.531 Social History Date Type Detail Facility Sex Assigned At [facility] Start: 11-28-2021 [facility] [employer] Phone: Start: 11-28-2021 Tobacco use and exposure Smokeless tobacco non-user [employer] Phone: Start: 12-12-2021 Alcohol intake Ex-drinker (finding) [employer] Phone: Start: 12-12-2021 Tobacco Comment no longer vapes [employer] Phone: Start: 04-21-2021 [employer] Phone: Start: 2002 Sex Assigned At Not on file B ON [employer] Phone: Tobacco Current vaping o r e-cigarette use Smokeless Tobacco Use:. Vaping [facility] Tobacco smoking status No Smokin g Status Entered [facility] Start: 10-02-2022 [facility] Start: 2000 Sex Assigned At Female [facility] Functional Status Date Assessment Result Facility 09-23-2023 Functional Status N/A [facility] 08-27-2023 Functional Status N/A [facility] 01-03-2023 Functional Status N/A [facility] 09-06-2022 Functional Status N/A [facility] 08-14-2022 Functional Status N/A [facility] Clinical Notes 11-06-2021 to 09-23-2023 Note Date & Type Note Facility 09-23-2023 Hospital Discharg e instructions Patient Education 09/23/2023 11:52:16 Subchorionic Hematoma Subchorionic Hematoma A hematoma is a collection of blood outside of the blood vessels. A subchorionic hematoma is a collection of blood between the outer wall of the embryo (chorion) and the inner wall of the uterus. This condition can cause vaginal bleeding. Early small hematomas usually shrink on their own and do not affect your baby or . When bleeding starts later in , or if the hematoma is larger or occurs in older women, the condition may be more serious. Larger hematomas increase the chances of miscarriage. This condition also increases the risk of: Premature separation of the placenta from the uterus. Premature () labor. Stillbirth. What are the causes? The exact cause of this condition is not known. It occurs when blood is trapped between the placenta and the uterine wall because the placenta has from the original site of implantation. What increases the risk? You are more likely to develop this condition if: You were treated with fertility medicines. You became through in vitro fertilization (IVF). What are the signs or symptoms? Symptoms of this condition include: Vaginal spotting or bleeding. Abdominal pain. This is rare. Sometimes you may have no symptoms and the bleeding may only be seen when ultrasound images are taken (transvaginal ultrasound). How is this diagnosed? This condition is diagnosed based on a physical exam. This includes a pelvic exam. You may also have other tests, including: Blood tests. Urine tests. Ultrasound of the abdomen. How is this treated? Treatment for this condition can vary. Treatment may include: Watchful waiting. You will be monitored closely for any changes in bleeding. Medicines. Activity restriction. This may be needed until the bleeding stops. A medicine called Rh immunoglobulin. This is given if you have an Rh-negative blood type. It prevents Rh sensitization. Follow these instructions at home: Stay on bed rest if told to do so by your health care provider. Do not lift anything that is heavier than 10 lb (4.5 kg), or the limit that you are told by your health care provider. Track and write down the number of pads you use each day and how soaked (saturated) they are. Do not use tampons. Keep all follow-up visits. This is important. Your health care provider may ask you to have follow-up blood tests or ultrasound tests or both. Contact a health care provider if: You have any vaginal bleeding. You have a fever. Get help right away if: You have severe cramps in your stomach, back, abdomen, or pelvis. You pass large clots or tissue. Save any tissue for your health care provider to look at. You faint. You become light-headed or weak. Summary A subchorionic hematoma is a collection of blood between the outer wall of the embryo (chorion) and the inner wall of the uterus. This condition can cause vaginal bleeding. Sometimes you may have no symptoms and the bleeding may only be seen when ultrasound images are taken. Treatment may include watchful waiting, medicines, or activity restriction. Keep all follow-up visits. Get help right away if you have severe cramps or heavy vaginal bleeding. This information is not intended to replace advice given to you by your health care provider. Make sure you discuss any questions you have with your health care provider. Document Revised: 02/19/2021 Document Reviewed: 02/19/2021 [employer] Patient Education 2022 charity: water. Follow Up Care 09/23/2023 09:11:45 With:Juvenal THORPE Address: [address] , [place] [address] Business (1) When:09/26/2023 11:44:07 [facility] 08-27-2023 Hospital Discharg e instructions Patient Education 08/27/2023 12:34:16 and Urinary Tract Infection and Urinary Tract Infection A urinary tract infection (UTI) is an infection of any part of the urinary tract. This includes the kidneys, the tubes that connect the kidneys to the bladder (ureters), the bladder, and the tube that carries urine out of the body (urethra). These organs make, store, and get rid of urine in the body. Your health care provider may use other names to describe the infection. An upper UTI affects the ureters and kidneys (pyelonephritis). A lower UTI affects the bladder (cystitis) and urethra (urethritis). Most UTIs are caused by bacteria in the genital area, around the entrance to the urinary tract. These bacteria grow and cause irritation and inflammation of the urinary tract. You are more likely to develop a UTI during because: The physical and hormonal changes that your body goes through make it easier for bacteria to get into your urinary tract. Your growing baby puts pressure on your bladder and can affect urine flow. women with diabetes are at an increased risk for developing a UTI. It is important to recognize and treat UTIs in because they can cause serious complications for both you and your baby. How does this affect me? Symptoms of a UTI include: Needing to urinate right away (urgently) and often, even if urinating a small amount. Pain, burning, or having a hard time passing urine. Blood in the urine. Unusual, cloudy, and bad-smelling urine. Pain in the abdomen or lower back. Vaginal discharge. You may also have: Vomiting or a decreased appetite. Confusion. Irritability or tiredness. A fever. Diarrhea. A low level of red blood cells (anemia). The development of high blood pressure during (preeclampsia). How does this affect my baby? An untreated UTI during could lead to a kidney infection or an infection throughout the mother's body (systemic infection). This can cause health problems and affect the baby. Possible complications of an untreated UTI include: Your baby being born before 37 weeks of (premature). Your baby being born with a low weight. Your baby having a higher risk of having his or her skin or the white parts of the eyes turn yellow (jaundice). What can I do to lower my risk? To prevent a UTI: Do not hold urine for long periods of time. Empty your bladder as soon as you feel the urge. Always wipe from front to back, especially after a bowel movement. Use each tissue one time when you wipe. Empty your bladder after sex. Keep your genital area dry. Drink 6 to 8 glasses of water each day. Do not douche or use deodorant sprays. Wear cotton underwear and loose clothing. How is this treated? Treatment for this condition may include: Antibiotic medicines that are safe to take during . Other medicines to treat less common causes of UTI. Follow these instructions at home: If you were prescribed an antibiotic medicine, take it as told by your health care provider. Do not stop using the antibiotic even if you start to feel better. Keep all follow-up visits. This is important. Contact a health care provider if: Your symptoms do not improve or they get worse. You have abnormal vaginal discharge. Get help right away if you: Have a fever. Have nausea and vomiting. Have back or side pain. Have lower belly pain, tightness, or feel contractions in your uterus. Have a gush of fluid from your vagina. Have blood in your urine. Summary A UTI is an infection of any part of the urinary tract, which includes the kidneys, ureters, bladder, and urethra. Most urinary tract infections are caused by bacteria in your genital area, around the entrance to your urinary tract (urethra). You are more likely to develop a UTI during . It is important to recognize and treat UTIs in because of the risk of serious complications for both you and your baby. If you were prescribed an antibiotic medicine, take it as told by your health care provider. Do not stop using the antibiotic even if you start to feel better. This information is not intended to replace advice given to you by your health care provider. Make sure you discuss any questions you have with your health care provider. Document Revised: 01/09/2022 Document Reviewed: 01/09/2022 [employer] Patient Education 2022 charity: water. 08/27/2023 12:34:16 Urinary Tract Infection, Adult, Uewk-yw-Loto Urinary Tract Infection, Adult A urinary tract infection (UTI) is an infection of any part of the urinary tract. The urinary tract includes: The kidneys. The ureters. The bladder. The urethra. These organs make, store, and get rid of pee (urine) in the body. What are the causes? This infection is caused by germs (bacteria) in your genital area. These germs grow and cause swelling (inflammation) of your urinary tract. What increases the risk? The following factors may make you more likely to develop this condition: Using a small, thin tube (catheter) to drain pee. Not being able to control when you pee or poop (incontinence). Being female. If you are female, these things can increase the risk: ?Using these methods to prevent : ?A medicine that kills sperm (spermicide). ?A device that blocks sperm (diaphragm). ?Having low levels of a female hormone (estrogen). ?Being . You are more likely to develop this condition if: You have genes that add to your risk. You are sexually active. You take antibiotic medicines. You have trouble peeing because of: ?A prostate that is bigger than normal, if you are male. ?A blockage in the part of your body that drains pee from the bladder. ?A kidney stone. ?A nerve condition that affects your bladder. ?Not getting enough to drink. ?Not peeing often enough. You have other conditions, such as: ?Diabetes. ?A weak disease-fighting system (immune system). ?Sickle cell disease. ?Gout. ?Injury of the spine. What are the signs or symptoms? Symptoms of this condition include: Needing to pee right away. Peeing small amounts often. Pain or burning when peeing. Blood in the pee. Pee that smells bad or not like normal. Trouble peeing. Pee that is cloudy. Fluid coming from the vagina, if you are female. Pain in the belly or lower back. Other symptoms include: Vomiting. Not feeling hungry. Feeling mixed up (confused). This may be the first symptom in older adults. Being tired and grouchy (irritable). A fever. Watery poop (diarrhea). How is this treated? Taking antibiotic medicine. Taking other medicines. Drinking enough water. In some cases, you may need to see a specialist. Follow these instructions at home: Medicines Take egan-mvs-lwwycjr and prescription medicines only as told by your doctor. If you were prescribed an antibiotic medicine, take it as told by your doctor. Do not stop taking it even if you start to feel better. General instructions Make sure you: ?Pee until your bladder is empty. ?Do not hold pee for a long time. ?Empty your bladder after sex. ?Wipe from front to back after peeing or pooping if you are a female. Use each tissue one time when you wipe. Drink enough fluid to keep your pee pale yellow. Keep all follow-up visits. Contact a doctor if: You do not get better after 1 2 days. Your symptoms go away and then come back. Get help right away if: You have very bad back pain. You have very bad pain in your lower belly. You have a fever. You have chills. You feeling like you will vomit or you vomit. Summary A urinary tract infection (UTI) is an infection of any part of the urinary tract. This condition is caused by germs in your genital area. There are many risk factors for a UTI. Treatment includes antibiotic medicines. Drink enough fluid to keep your pee pale yellow. This information is not intended to replace advice given to you by your health care provider. Make sure you discuss any questions you have with your health care provider. Document Revised: 01/05/2021 Document Reviewed: 01/05/2021 [employer] Patient Education 2022 charity: water. 08/27/2023 12:34:16 Subchorionic Hematoma Subchorionic Hematoma A hematoma is a collection of blood outside of the blood vessels. A subchorionic hematoma is a collection of blood between the outer wall of the embryo (chorion) and the inner wall of the uterus. This condition can cause vaginal bleeding. Early small hematomas usually shrink on their own and do not affect your baby or . When bleeding starts later in , or if the hematoma is larger or occurs in older women, the condition may be more serious. Larger hematomas increase the chances of miscarriage. This condition also increases the risk of: Premature separation of the placenta from the uterus. Premature () labor. Stillbirth. What are the causes? The exact cause of this condition is not known. It occurs when blood is trapped between the placenta and the uterine wall because the placenta has from the original site of implantation. What increases the risk? You are more likely to develop this condition if: You were treated with fertility medicines. You became through in vitro fertilization (IVF). What are the signs or symptoms? Symptoms of this condition include: Vaginal spotting or bleeding. Abdominal pain. This is rare. Sometimes you may have no symptoms and the bleeding may only be seen when ultrasound images are taken (transvaginal ultrasound). How is this diagnosed? This condition is diagnosed based on a physical exam. This includes a pelvic exam. You may also have other tests, including: Blood tests. Urine tests. Ultrasound of the abdomen. How is this treated? Treatment for this condition can vary. Treatment may include: Watchful waiting. You will be monitored closely for any changes in bleeding. Medicines. Activity restriction. This may be needed until the bleeding stops. A medicine called Rh immunoglobulin. This is given if you have an Rh-negative blood type. It prevents Rh sensitization. Follow these instructions at home: Stay on bed rest if told to do so by your health care provider. Do not lift anything that is heavier than 10 lb (4.5 kg), or the limit that you are told by your health care provider. Track and write down the number of pads you use each day and how soaked (saturated) they are. Do not use tampons. Keep all follow-up visits. This is important. Your health care provider may ask you to have follow-up blood tests or ultrasound tests or both. Contact a health care provider if: You have any vaginal bleeding. You have a fever. Get help right away if: You have severe cramps in your stomach, back, abdomen, or pelvis. You pass large clots or tissue. Save any tissue for your health care provider to look at. You faint. You become light-headed or weak. Summary A subchorionic hematoma is a collection of blood between the outer wall of the embryo (chorion) and the inner wall of the uterus. This condition can cause vaginal bleeding. Sometimes you may have no symptoms and the bleeding may only be seen when ultrasound images are taken. Treatment may include watchful waiting, medicines, or activity restriction. Keep all follow-up visits. Get help right away if you have severe cramps or heavy vaginal bleeding. This information is not intended to replace advice given to you by your health care provider. Make sure you discuss any questions you have with your health care provider. Document Revised: 02/19/2021 Document Reviewed: 02/19/2021 [employer] Patient Education 2022 charity: water. Follow Up Care 08/27/2023 09:39:16 With:Juvenal THORPE Address: [address] [place] [address] Business (1) When:08/30/2023 12:05:10 With:SELAM HUNTER Address: [address] [place], [place] [address] [address] Business (1) When:Within 3 Day(s) [facility] 08-27-2023 Evaluation + Plan note Extrac ruby from: Title:ED Note Author:Hudson Riley PA-C te:08/27/23 Other antepartum hemorrhage, unspecified trimester (O46.8X9: Other antepartum hemorrhage, unspecified trimester) Subchorionic bleed (O41.8X90: Other specified disorders of amniotic fluid and membranes, unspecified trimester, not applicable or unspecified) UTI (urinary tract infection) during (O23.40: Unspecified infection of urinary tract in , unspecified trimester) Vaginal bleeding in (O46.90: Antepartum hemorrhage, unspecified, unspecified trimester) Orders: cephalexin, 500 mg = 1 cap(s), Oral, q6hr, X 7 day(s), # 28 cap(s), Refills(s) 0, Pharmacy: [id number], 170, cm, 08/27/23 9:49:00 EDT, Height/Length Dosing, 78.7, kg, 08/27/23 9:49:00 EDT, Weight Dosing ABO/Rh Basic Metabolic Panel Beta hCG Quantitative CBC w/ Auto Diff eGFR Extra Blue Tube Extra SST Tube UA with Cult Rflx Urine Culture US 1st Trimester US Transvaginal Diagnostic Tests Pending * Urine Culture 08/27/23 [facility]07-29-2023 Hospital Discharge instructions Patient Education 01/04/2023 00:13:01 Pharyngitis, Hgfm-ci-Avab Pharyngitis Pharyngitis is a sore throat (pharynx). This is when there is redness, pain, and swelling in your throat. Most of the time, this condition gets better on its own. In some cases, you may need medicine. What are the causes? An infection from a virus. An infection from bacteria. Allergies. What increases the risk? Being 5 24 years old. Being in crowded environments. These include: ?Daycares. ?Schools. ?Dormitories. Living in a place with cold temperatures outside. Having a weakened disease-fighting (immune) system. What are the signs or symptoms? Symptoms may vary depending on the cause. Common symptoms include: Sore throat. Tiredness (fatigue). Low-grade fever. Stuffy nose. Cough. Headache. Other symptoms may include: Glands in the neck (lymph nodes) that are swollen. Skin rashes. Film on the throat or tonsils. This can be caused by an infection from bacteria. Vomiting. Red, itchy eyes. Loss of appetite. Joint pain and muscle aches. Tonsils that are temporarily bigger than usual (enlarged). How is this treated? Many times, treatment is not needed. This condition usually gets better in 3 4 days without treatment. If the infection is caused by a bacteria, you may be need to take antibiotics. Follow these instructions at home: Medicines Take bqmt-dfq-ceeaeni and prescription medicines only as told by your doctor. If you were prescribed an antibiotic medicine, take it as told by your doctor. Do not stop taking the antibiotic even if you start to feel better. Use throat lozenges or sprays to soothe your throat as told by your doctor. Children can get pharyngitis. Do not give your child aspirin. Managing pain To help with pain, try: Sipping warm liquids, such as: ?Broth. ?Herbal tea. ?Warm water. Eating or drinking cold or frozen liquids, such as frozen ice pops. Rinsing your mouth (gargle) with a salt water mixture 3 4 times a day or as needed. ?To make salt water, dissolve 1 tsp (3 6 g) of salt in 1 cup (237 mL) of warm water. ?Do not swallow this mixture. Sucking on hard candy or throat lozenges. Putting a cool-mist humidifier in your bedroom at night to moisten the air. Sitting in the bathroom with the door closed for 5 10 minutes while you run hot water in the shower. General instructions Do not smoke or use any products that contain nicotine or tobacco. If you need help quitting, ask your doctor. Rest as told by your doctor. Drink enough fluid to keep your pee (urine) pale yellow. How is this prevented? Wash your hands often for at least 20 seconds with soap and water. If soap and water are not available, use hand picker operator. Do not touch your eyes, nose, or mouth with unwashed hands. Wash hands after touching these areas. Do not share cups or eating utensils. Avoid close contact with people who are sick. Contact a doctor if: You have large, tender lumps in your neck. You have a rash. You cough up green, yellow-brown, or bloody spit. Get help right away if: You have a stiff neck. You drool or cannot swallow liquids. You cannot drink or take medicines without vomiting. You have very bad pain that does not go away with medicine. You have problems breathing, and it is not from a stuffy nose. You have new pain and swelling in your knees, ankles, wrists, or elbows. These symptoms may be an emergency. Get help right away. Call your local emergency services (911 inthe [place] Do not wait to see if the symptoms will go away. Do not drive yourself to the hospital. Summary Pharyngitis is a sore throat (pharynx). This is when there is redness, pain, and swelling in your throat. Most of the time, pharyngitis gets better on its own. Sometimes, you may need medicine. If you were prescribed an antibiotic medicine, take it as told by your doctor. Do not stop taking the antibiotic even if you start to feel better. This information is not intended to replace advice given to you by your health care provider. Make sure you discuss any questions you have with your health care provider. Document Revised: 08/22/2021 Document Reviewed: 08/22/2021 [employer] Patient Education 2022 charity: water. Follow Up Care 01/03/2023 22:32:55 With:Thony Carl Address: [address] [place], [place] [address] [address] [facility] (1) When:01/06/2023 Comments:Follow-up with your primary care provider in 3 to 5 days. If symptoms worsen, do not improve, or new symptoms arise please report back to emergency department for further evaluation. [facility]07-28-2023 Evaluation + Plan noteExtracted from: Title:ED Note Author:Osvaldo CHUNG, Hudson Torres te:01/03/23 Body aches (R52: Pain, unspe cified) (Z34.90: Encounter for supervision of normal , unspecified, unspecified trimester) Strep pharyngitis (J02.0: Streptococcal pharyngitis) Orders: cephalexin, 500 mg = 1 cap(s), Cap, Oral, Once, Stop date 01/03/23 23:45:00 EDT, STAT, Start date 01/03/23 23:45:00 EDT, 01/03/23 23:45:00 EDT cephalexin, 500 mg = 1 cap(s), Oral, q12hr, # 20 cap(s), Refills(s) 0, Pharmacy: [facility], 170, cm, 01/03/23 22:44:00 EDT, Height/Length Dosing, 75.3, kg, 01/03/23 22:44:00 EDT, Weight Dosing ondansetron, 4 mg = 1 tab(s), Oral, q8hr, PRN Nausea/Vomiting, # 12 tab(s), Refills(s) 0, Pharmacy: [facility], 170, cm, 01/03/23 22:44:00 EDT, Height/Length Dosing, 75.3, kg, 01/03/23 22:44:00 EDT, Weight Dosing ondansetron, 12 mg = 3 tab(s), Tab-Dis, Oral, Once, Stop date 01/03/23 23:45:00 EDT, STAT, Start date 01/03/23 23:45:00 EDT, 01/03/23 23:45:00 EDT Automated Diff Basic Metabolic Panel Beta hCG Quantitative CBC w/ Auto Diff eGFR Hepatic Function Panel Lipase Level [facility]04-19-2023 Evaluation note* Encounter Date Diagnosis Assessment Notes Treatment Notes Treatment Clinical Notes Sep, Sore throat (ICD-10 - J02.9) Sep, Hordeolum internum of right upper eyelid (ICD-10 - H00.021) Apply drops as prescribed. Follow up with eye doctor in 3-4 days if no improvement or if your symptoms worsen. Sep, Acute non-recurrent pansinusitis (ICD-10 - J01.40) Sinus infections can be triggeredby a secondary infection; usually a viral URI or even seasonal allergies. Take medications as directed. Use saline nasal spray prior to presciption nasal spray. Complete all doses of medication even if you start to feel better. Symptoms should improve during treatment period. Do not use any over the counter medications is received prescription cough syrup is given. Follow up with primary care provider if no improvement of symptoms occur by end of treatment. [employer] Other 03-31-2023 Hospital Discharge instructions Patient Education 09/06/2022 13:56:20 Miscarriage Miscarriage A miscarriage is the loss of an unborn baby (fetus) before the 20th week of . Most miscarriages happen during the first 3 months of . Sometimes, a miscarriage can happen before a woman knows that she is . Having a miscarriage can be an emotional experience. If you have had a miscarriage, talk with your health care provider about any questions you may have about miscarrying, the grieving process, and your plans for future . What are the causes? A miscarriage may be caused by: Problems with the genes or chromosomes of the fetus. These problems make it impossible for the babyto develop normally. They are often the result of random errors that occur early in the developmentof the baby, and are not passed from parent to child (not inherited). Infection of the cervix or uterus. Conditions that affect hormone balance in the body. Problems with the cervix, such as the cervix opening and thinning before is at term (cervical insufficiency). Problems with the uterus. These may include: ?A uterus with an abnormal shape. ?Fibroids in the uterus. ?Congenital abnormalities. These are problems that were present at . Certain medical conditions. Smoking, drinking alcohol, or using drugs. Injury (trauma). In many cases, the cause of a miscarriage is not known. What are the signs or symptoms? Symptoms of this condition include: Vaginal bleeding or spotting, with or without cramps or pain. Pain or cramping in the abdomen or lower back. Passing fluid, tissue, or blood clots from the vagina. How is this diagnosed? This condition may be diagnosed based on: A physical exam. Ultrasound. Blood tests. Urine tests. How is this treated? Treatment for a miscarriage is sometimes not necessary if you naturally pass all the tissue that was in your uterus. If necessary, this condition may be treated with: Dilation and curettage (D&C). This is a procedure in which the cervix is stretched open and thelining of the uterus (endometrium) is scraped. This is done only if tissue from the fetus or placenta remains in the body (incomplete miscarriage). Medicines, such as: ?Antibiotic medicine, to treat infection. ?Medicine to help the body pass any remaining tissue. ?Medicine to reduce (contract) the size of the uterus. These medicines may be given if you have a lot of bleeding. If you have Rh negative blood and your baby was Rh positive, you will need a shot of a medicine called Rh immunoglobulinto protect your future babies from Rh blood problems. Rh-negative and Rh-positive refer to whether or not the blood has a specific protein found on the surface of red blood cells (Rh factor). Follow these instructions at home: Medicines Take fafz-fff-qbaxbwc and prescription medicines only as told by your health care provider. If you were prescribed antibiotic medicine, take it as told by your health care provider. Do not stop taking the antibiotic even if you start to feel better. Do not take NSAIDs, such as aspirin and ibuprofen, unless they are approved by your health care provider. These medicines can cause bleeding. Activity Rest as directed. Ask your health care provider what activities are safe for you. Have someone help with home and family responsibilities during this time. General instructions Keep track of the number of sanitary pads you use each day and how soaked (saturated) they are. Write down this information. Monitor the amount of tissue or blood clots that you pass from your vagina. Save any large amounts of tissue for your health care provider to examine. Do not use tampons, douche, or have sex until your health care provider approves. To help you and your partner with the process of grieving, talk with your health care provider or seek counseling. When you are ready, meet with your health care provider to discuss any important steps you should take for your health. Also, discuss steps you should take to have a healthy in the future. Keep all follow-up visits as told by your health care provider. This is important. Where to find more information [employer]: www.acog.org U.S. Department of Health and Human Services Office of Women s Health: www.womenshealth.gov Contact a health care provider if: You have a fever or chills. You have a foul smelling vaginal discharge. You have more bleeding instead of less. Get help right away if: You have severe cramps or pain in your back or abdomen. You pass blood clots or tissue from your vagina that is walnut-sized or larger. You soak more than 1 regular sanitary pad in an hour. You become light-headed or weak. You pass out. You have feelings of sadness that take over your thoughts, or you have thoughts of hurting yourself. Summary Most miscarriages happen in the first 3 months of . Sometimes miscarriage happens before awoman even knows that she is . Follow your health care provider's instruction for home care. Keep all follow-up appointments. To help you and your partner with the process of grieving, talk with your health care provider or seek counseling. This information is not intended to replace advice given to you by your health care provider. Make sure you discuss any questions you have with your health care provider. Document Released: 11/19/2001 Document Revised: 09/17/2019 Document Reviewed: 07/01/2017 [employer] Patient Education 2019 charity: water. Follow Up Care 09/06/2022 10:42:16 With:Juvenal THORPE Address: [address] [place] [address]- Business (1) When:09/09/2022 13:46:05 [facility]03-09-2023 Hospital Discharge instructions Patient Education 08/14/2022 22:12:46 Abdominal Pain During , Jvky-qa-Gkos Abdominal Pain During Belly (abdominal) pain is common during . There are many possible causes. Most of the time, it is not a serious problem. Other times, it can be a sign that something is wrong with the . Always tell your doctor if you have belly pain. Follow these instructions at home: Do not have sex or put anything in your vagina until your pain goes away completely. Get plenty of rest until your pain gets better. Drink enough fluid to keep your pee (urine) pale yellow. Take wdqf-aom-skxlsri and prescription medicines only as told by your doctor. Keep all follow-up visits as told by your doctor. This is important. Contact a doctor if: Your pain continues or gets worse after resting. You have lower belly pain that: ?Comes and goes at regular times. ?Spreads to your back. ?Feels like menstrual cramps. You have pain or burning when you pee (urinate). Get help right away if: You have a fever or chills. You have vaginal bleeding. You are leaking fluid from your vagina. You are passing tissue from your vagina. You throw up (vomit) for more than 24 hours. You have watery poop (diarrhea) for more than 24 hours. Your baby is moving less than usual. You feel very weak or faint. You have shortness of breath. You have very bad pain in your upper belly. Summary Belly (abdominal) pain is common during . There are many possible causes. If you have belly pain during , tell your doctor right away. Keep all follow-up visits as told by your doctor. This is important. This information is not intended to replace advice given to you by your health care provider. Make sure you discuss any questions you have with your health care provider. Document Released: 05/14/2010 Document Revised: 09/13/2019 Document Reviewed: 08/28/2017 [employer] Patient Education 2020 charity: water. 08/14/2022 22:12:46 Abdominal Pain, Adult, Upor-yp-Oanc Abdominal Pain, Adult Many things can cause belly (abdominal) pain. Most times, belly pain is not dangerous. Many cases of belly pain can be watched and treated at home. Sometimes, though, belly pain is serious. Your doctor will try to find the cause of your belly pain. Follow these instructions at home: Medicines Take ixyb-xww-uyeuhqx and prescription medicines only as told by your doctor. Do not take medicines that help you poop (laxatives) unless told by your doctor. General instructions Watch your belly pain for any changes. Drink enough fluid to keep your pee (urine) pale yellow. Keep all follow-up visits as told by your doctor. This is important. Contact a doctor if: Your belly pain changes or gets worse. You are not hungry, or you lose weight without trying. You are having trouble pooping (constipated) or have watery poop (diarrhea) for more than 2 3 days. You have pain when you pee or poop. Your belly pain wakes you up at night. Your pain gets worse with meals, after eating, or with certain foods. You are vomiting and cannot keep anything down. You have a fever. You have blood in your pee. Get help right away if: Your pain does not go away as soon as your doctor says it should. You cannot stop vomiting. Your pain is only in areas of your belly, such as the right side or the left lower part of the belly. You have bloody or black poop, or poop that looks like tar. You have very bad pain, cramping, or bloating in your belly. You have signs of not having enough fluid or water in your body (dehydration), such as: ?Dark pee, very little pee, or no pee. ?Cracked lips. ?Dry mouth. ?Sunken eyes. ?Sleepiness. ?Weakness. You have trouble breathing or chest pain. Summary Many cases of belly pain can be watched and treated at home. Watch your belly pain for any changes. Take phsd-nhv-cjnozlo and prescription medicines only as told by your doctor. Contact a doctor if your belly pain changes or gets worse. Get help right away if you have very bad pain, cramping, or bloating in your belly. This information is not intended to replace advice given to you by your health care provider. Make sure you discuss any questions you have with your health care provider. Document Released: 11/11/2008 Document Revised: 10/04/2019 Document Reviewed: 10/04/2019 [employer] Patient Education 2020 charity: water. Follow Up Care 08/14/2022 18:41:38 With:Juvenal THORPE Address: [address] , [place] [address]- Business (1) When:08/17/2022 Comments:Follow-up with Dr. Thorpe for further evaluation of your . With:Juventino Carbajal Address: [address] [place] [phone]- When:08/17/2022 Comments:Follow-up with your primary care provider in 3 to 5 days. If symptoms worsen, do not improve, or new symptoms arise please report back to emergency department for further evaluation. [facility]01-16-2023 Evaluation note* Encounter Date Diagnosis Assessment Notes Treatment Notes Treatment Clinical Notes Jun, Sore throat (ICD-10 - J02.9) Jun, Influenza-like illness (ICD-10 - J11.1) Influenza: adult home care material was printed. History and exam consistent with influenza like illness even though covid and influenza tests are negative. Rapid strep is also negative. Will prescribe ondansetron, lidocaine , and fluticasone for symptoms. Given return precautions. Jun, Cough (ICD-10 - R05.9) [employer] Other 06-07-2022 Evaluation note* Encounter Date Diagnosis Assessment Notes Treatment Notes Treatment Clinical Notes Nov, Cough (ICD-10 - R05.9) covid and flu neg, see above. Nov, Acute non-recurrent sinusitis, unspecified location (ICD-10 - J01.90) Pt is to take abx as prescribed with food. Use nasal spray as directed. Push fluids and rest. Pt denied school or work note today. Pt is to take otc antipyretic prn for fever and aches. Pt is to take otc cough suppressant prn for cough. Pt is to be re-evaluated after tx if sx worsen or don''t improve by pcp or UC. Pt is to call the office with any questions or concerns regarding dx and tx. Pt understood and agreed to tx plan. [facility] [employer] Other [phone] Evaluation note* Encounter Date Diagnosis Assessment Notes Treatment Notes Treatment Clinical Notes October, Body aches (ICD-10 - R52) October, Viral URI (ICD-10 - J06.9) Advised patient that COVID antigen test, Influenza A/B test, and Strep test was negative today. Advised patient that will treat as viral URI. Supportive care as directed, increase fluids and rest, Tylenol/Motrin as directed, OTC cough/cold remedies as directed on packaging, cool mist humidifier, throat lozenges. Discussed infection control practices such as good hand washing and mask wearing. Patient to follow up with PCP if symptoms persist or worsen despite treatment. Immediate eval for SOB, difficulty, chest pain, fevers that do not break with antipyretic or any other concerning symptoms as reviewed on patient education handout. Patient verbalizes understanding and is agreeable to treatment plan. Patient left in stable condition October, Sore throat (ICD-10 - J02.9) [facility] [employer] Other Evaluation + Plan note No data available for this section [facility] information available [facility] Work Phone: Evaluation noteNo [employer] Other History general Narrative - Reported* Type Description Date Medical History fx lt elbow at age 7 Surgical History surgical repair of left elbow f racture at age 7 Hospitalization History see surgical hx [facility] [employer] Other Progress note No data available for this section [facility] Summary Purpose Family History No Family History Records FoundNo Family History Records FoundNo Family History Records Found No data available for this section No data available for this section No Family History Records FoundNo Family History Records FoundNo Family History Records Found Advance Directives No Advanced Directives Records Found Advance Directive Response Recorded Date/ Time Advance Directives No December 17 7:51pm Chief Complaint and Reason for Visit Chief Complaint sent by therapist Additional Source Comments REASON FOR VISIT (unrecogniz ed section and content) BA, DUMONT, CONGESTION, SORE THR OATPRODUCTIVE COUGHbody achesSORE THROAT, COUGHre-establish INFORMATION SOURCE (unrecogn ized section and content) DATE CREATED AUTHOR 01/05/2022 [facility] DATE CREATED AUTHOR AUTHOR'S ORGANIZ ATION 07/15/2022 [facility] DATE CREATED AUTHOR AUTHOR'S ORGANIZ ATION 10/10/2022 [facility] DATE CREATED AUTHOR AUTHOR'S ORGANIZ ATION 09/27/2023 [facility] DATE CREATED AUTHOR AUTHOR'S ORGANIZ ATION 12/26/2023 [facility] DATE CREATED AUTHOR AUTHOR'S ORGANIZ ATION 12/31/2023 [facility] EPIC Care Teams (unrecognized sec tion and content) Personnel Name: SELAM HUNTER CNP Address: Address: [address] [place] [id number] Team Status: Active Member Role Status Dates PHYSICIAN NO FAMILY Primary Care Provider Active Team Status: Inactive Member Role Status Dates PHYSICIAN NO FAMILY Primary Care Provider Active Jose Silverman MD Emergency Provider Active Goals (unrecognized section and content) Goals may be documented in a n alternate section FOR RECORDS PERTAINING TO PATIENTS WHO ARE OR HAVE BEEN ENROLLED IN A CHEMICAL DEPENDENCY/SUBSTANCEABUSE PROGRAM, SOME INFORMATION MAY BE OMITTED. This clinical summary was aggregated from multiple sources. Caution should be exercised in using it in the provision of clinical care. This summary normalizes information from multiple sources, and as a consequence, information in this document may materially change the coding, format and clinical context of patient data. In addition, data may be omitted in some cases. CLINICAL DECISIONS SHOULD BE BASED ON THE PRIMARY CLINICAL RECORDS. [facility] [employer] [facility]. provides no warranty or guarantee of the accuracy or completeness of information in this document.
[2024-01-12 10:45] LABS: Basophils Percent Auto 0.4 % (0.2-2.0); Eosinophils Absolute Auto 0.1 10^3/uL (0.0-0.7); Eosinophils Percent Auto 1.1 % (0.9-7.0); Hematocrit 31.5 % (36.0-48.0); Hemoglobin 10.6 g/dL (12.0-16.0); Immature Granulocytes Abs Auto 0.03 10^3/uL (0.00-0.03); Immature Granulocytes Pct Auto 0.3 % (0.0-0.5); Lymphocytes Absolute Auto 1.8 10^3/uL (1.2-3.8); Mean Corpuscular HGB Conc 33.7 g/dL (29.9-35.2); Mean Corpuscular Hemoglobin 29.6 pg (26.7-34.0); Mean Platelet Volume 9.8 fL (9.5-13.5); Monocytes Absolute Auto 0.6 10^3/uL (0.3-0.8); Monocytes Percent Auto 5.8 % (1.7-12.0); Neutrophils Absolute Auto 7.9 10^3/uL (1.4-6.5); Neutrophils Percent Auto 75.4 % (43.0-75.0); Platelet Count 225 10^3/uL (150-450); Red Blood Count 3.58 10^6/uL (4.20-5.40); Red Cell Distribution Width 13.5 % (11.0-15.0); White Blood Count 10.5 10^3/uL (4.0-11.0)
[2024-01-12 12:05] LABS: Glucose 1 Hour 92 mg/dL (<130)
== END 2024-01-12 09:07 | disposition home or self-care (01) ==
LOC: US 09:07
PROVIDERS: Visit Provider Physician Assistant
DX: O43.113 Circumvallate placenta, third trimester (principal); Z13.1 Encounter for screening for diabetes mellitus; Z3A.24 24 weeks gestation of pregnancy
CPT/HCPCS: 36415; 76816; 82950; 85025

== ENCOUNTER 2024-01-15 08:57 | Observation (INO) | payer OTHER, SELFPAY ==
--- NOTE | 2024-01-15 09:58 | US_ITS ---
[address] [address] Patient Name: KAILYN ACKERMAN MRN: [id number] date: 2000 Sex: F Assigned Patient Location: [facility] Current Patient Location: [facility] Accession/Order Number: [id number] Exam Date: 01/15/2024 10:30 Report Date: 01/15/2024 11:23 At the request of: VAL ANG Procedure: US OB placenta EXAM: US OB placenta, US OB cervical length HISTORY: Contractions and leaking of fluid COMPARISON: 12/16/2023 TECHNIQUE: Transabdominal and transvaginal imaging FINDINGS: position: Cephalic presentation, longitudinal lie Placenta: Posterior, grade 1. No intraplacental or retroplacental echogenic abnormality Heart rate: 141 beats minute Cervix, closed, 3.5 cm Clinical age: 27 weeks 0 days Clinical NOY: 04/15/2024 US/US OB placenta IMPRESSION: Closed cervix measuring 3.5 cm in length No evidence of retroplacental hemorrhage Electronically authenticated by: SOFIA KABA Date: 01/15/2024 11:23
--- NOTE | 2024-01-15 09:58 | US_ITS ---
[address] [address] Patient Name: KAILYN ACKERMAN MRN: [id number] date: 2000 Sex: F Assigned Patient Location: [facility] Current Patient Location: [facility] Accession/Order Number: [id number] Exam Date: 01/15/2024 10:30 Report Date: 01/15/2024 11:23 At the request of: VAL ANG Procedure: US OB cervical length EXAM: US OB placenta, US OB cervical length HISTORY: Contractions and leaking of fluid COMPARISON: 12/16/2023 TECHNIQUE: Transabdominal and transvaginal imaging FINDINGS: position: Cephalic presentation, longitudinal lie Placenta: Posterior, grade 1. No intraplacental or retroplacental echogenic abnormality Heart rate: 141 beats minute Cervix, closed, 3.5 cm Clinical age: 27 weeks 0 days Clinical NOY: 04/15/2024 US/US OB cervical length IMPRESSION: Closed cervix measuring 3.5 cm in length No evidence of retroplacental hemorrhage Electronically authenticated by: SOFIA KABA Date: 01/15/2024 11:23
[2024-01-15 10:10] VITALS: BP 100/57; PULSE 85; TEMP 36.3
[2024-01-15 10:16] LABS: Amnisure NEGATIVE (NEGATIVE); Internal Control Within Normal Limits
[2024-01-15 10:43] LABS: Bilirubin Urine NEGATIVE (NEGATIVE); Blood Urine NEGATIVE (NEGATIVE); Clarity Urine SL CLOUDY (CLEAR); Color Urine LT. YELLOW (YELLOW); Glucose Urine UA NEGATIVE (NEGATIVE); Ketones Urine NEGATIVE (NEGATIVE); Leukocyte Esterase Urine LARGE (NEGATIVE); Nitrite Urine NEGATIVE (NEGATIVE); Protein Urine NEGATIVE (NEG/TRACE); Urobilinogen Urine 0.2 EU/dL (0.2-1.0); pH Urine 7.5 (5.0-9.0)
[2024-01-15 10:47] LABS: Urine Microscopic Indicated YES
[2024-01-15 10:51] LABS: Bacteria Urine MODERATE #/HPF (NONE SEEN); Mucus Urine NONE SEEN (NONE SEEN); WBC Urine 20-50 #/HPF (NONE SEEN)
[2024-01-15 10:52] LABS: Cast Seen? NONE SEEN #/LPF (NONE SEEN); Crystals Seen? None Seen #/HPF (None Seen); Squamous Epithelial Cell Urine MODERATE #/LPF (NONE/RARE); Urine Culture Indicated YES
[2024-01-15] MEDS: FLUCONAZOLE 150 MG TABLET PO (11:21)
== END 2024-01-15 11:43 | disposition home or self-care (01) ==
PROVIDERS: Admitting Provider Obstetrics & Gynecology; Visit Provider Obstetrics & Gynecology
DX: O47.02 False labor before 37 completed weeks of gestation, second trimester (principal); Z3A.27 27 weeks gestation of pregnancy; Z03.71 Encounter for suspected problem with amniotic cavity and membrane ruled out
CPT/HCPCS: 59025; 76815; 76817; 81001; 84112; 87086; G0378; G0379

== ENCOUNTER 2024-02-04 06:59 | Outpatient (OUT) | payer OTHER, SELFPAY ==
--- OUTSIDE RECORDS SUMMARY | 2024-02-04 07:02 | XMS_ITS | CCD ---
Author Organization [facility] Care Team Providers Care [employer] Intern Name Role Phone Kendra Witt Unavailable ClariceClaytondarlene Unavailable Unavailable Primary Care Provider JUAQUIN Amos Referring Unavailable ASHIA, DR NEAL Consulting Unavailable REQUEST, NONE LISTED Primary Care Unavaila ble ASHIA, DR NEAL Attending Unavailable ASHIA, DR NEAL Admitting Unavailable REQUEST, NONE LISTED Primary Care Unavaila ble ASHIA, DR NEAL Attending Unavailable ASHIA, DR NEAL Admitting Unavailable KARASIK, DR YANEZ Consulting Unavailable REQUEST, DR NONE LISTED Primary Care Unavaila ble ASHIA, DR NEAL Attending Unavailable ASHIA, DR NEAL Admitting Unavailable ASHIA, DR NEAL Consulting Unavailable REQUEST, DR NONE LISTED Primary Care Unavaila ble ASHIA, DR NEAL Attending Unavailable ASHIA, DR NEAL Admitting Unavailable ASHIA, DR NEAL Consulting Unavailable REQUEST, NONE LISTED Primary Care Unavaila ble ASHIA, DR NEAL Attending Unavailable ASHIA, DR NEAL Admitting Unavailable ASHIA, DR NEAL Consulting Unavailable REQUEST, DR NONE LISTED Primary Care Unavaila ble ASHIA, DR NEAL Attending Unavailable ASHIA, DR NEAL Admitting Unavailable ELLISROSEANN MOLINA Consulting Unavailable REQUEST, DR NONE LISTED Primary Care Unavaila ble ELLISROSEANN GONSALO Attending Unavailable ELLISROSEANN MOLINA GONSALO Admitting Unavailable KARASIK, DR YANEZ Consulting Unavailable [facility] [place] DR SANDOVAL Primary Care Unavailable KARASIK, DR YANEZ Attending Unavailable KARASIK, DR YANEZ Admitting Unavailable ZIEBER, DR MARS Mccarthy Consulting Unavailable TIFFIN, DR SOFIA Hull Consulting Unavailable REQUEST, NONE LISTED Primary Care Unavaila ble ASHIA, DR NEAL Attending Unavailable ASHIA, DR NEAL Admitting Unavailable ASHIA, DR NEAL Consulting Unavailable KARASIK, DR YANEZ Consulting Unavailable REQUEST, DR NONE LISTED Primary Care Unavaila ble ASHIA, DR NEAL Attending Unavailable ASHIA, DR NEAL Admitting Unavailable ASHIA, DR NEAL Consulting Unavailable AGZAN MORSE Consulting Unavailable ASHIA, DR NEAL Procedure Practitioner Unavailab ricardo KABA, DR SOFIA Hull Consulting Unavailable EVER, NONE LISTED Primary Care Unavaila ble ASHIA, DR NEAL Attending Unavailable ASHIA, DR NEAL Admitting Unavailable ASHIA, DR NEAL Consulting Unavailable Lazear, Viet Unavailable NONE, XXXX Primary Care Physician Unavailab le NO FAMILY, PHYSICIAN Primary Care Provider Unava MD Jose Moody Emergency Provider Jose Silverman Attending Unavailable Jose Silverman Admitting Unavailable NO FAMILY, PHYSICIAN Primary Care Unavailable Kenneth Mills Unavailable SELAM HUNTER Primary Care Physician [phone] SELAM HUNTER Primary Care Unavailable Emily Harper Attending Unavailable SELAM HUNTER Primary Care Unavailable Wil Chandra Attending Unavailable Siva Schulte Attending Unavailable SELAM HUNTER Admitting Unavailable SELAM HUNTER Attending Unavailable JUVENAL THORPE Referring Unavailable JUANITO PABLO Attending Unavailable JESSICA ALEJO Referring Unavailable ASHIA, JUVENAL Mccarthy Referring Unavailable JUVENAL THORPE Attending Unavailable GONSALO CORRAL Attending Unavailable ASHIA, JUVENAL Attending Unavailable GONSALO CORRAL Attending Unavailable ASHIA, JUVENAL Attending Unavailable Allergies Allergy Classification Reported Allergen(s) Allergy Type Date of Onset Reaction(s) Facility (1 source) No Known Medication Allergies; Translations: [No Known Medication Allergies] Propensity to adverse reactions (disorder) [facility] Repository Medications Current Medications Medication Drug Class(es) [...] day Active cephalexin 500 mg oral capsule (5 sources) Cephalosporin Antibacterial Start: 08-27-2023 End: 09-03-2023 take 1 capsule by mouth every six hours Keflex 500 mg Cap 500 mg = 1 cap(s), Oral, q6hr, X 7 day(s), # 28 cap(s), Refills(s) 0, Pharmacy: [id number], 170, cm, 08/27/23 9:49:00 EDT, Height/Length Dosing, 78.7, kg, 08/27/23 9:49:00 EDT, Weight Dosing Start Date: 08/27/23 Stop Date: 09/03/23 Status: Ordered Start: 01-03-2023 take 1 capsule by [facility] every twelve hours Keflex 500 mg Cap 500 mg = 1 cap(s), Oral, q12hr, # 20 cap(s), Refills(s) 0, Pharmacy: [facility], 170, cm, 01/03/23 22:44:00 EDT, Height/Length Dosing, 75.3, kg, 01/03/23 22:44:00 EDT, Weight Dosing Start Date: 01/03/23 Status: Ordered Citalopram (2 sources) Serotonin Reuptake Inhibitor Citalopram Hydrobromide Active dexamethasone 1 mg/ml / neomycin 3.5 mg/ml / polymyxin b 96875 unt/ml ophthalmic suspension (2 sources) Aminoglycoside Antibacterial, Polymyxin-class Antibacterial, Corticosteroid Start: 09-26-19 take 1 drop(s) into the eye(s) four times daily Maxitrol 3.5-45574-8.1 1 drop into affected eye Ophthalmic Four times a day for 7 days Sep, Active ethinyl estradiol 0.02 mg / norethindrone acetate 1 mg oral tablet (6 sources) Estrogen Start: 04-10-20 Microgestin /20 20 mcg-1 mg oral tablet Refill(s) 0 [...] 3 hrs for 2 days Jun, Active [place] (No Known Home Meds) (1 source) Start: 06-26-2021 [place] (No Known Home Meds) Active June 26, [...] 2021 12:00am Zofran ODT 4 mg Tab-Dis (10 sources) Start: 01-03-2023 take 1 tablet by mouth every eight hours as needed for nausea Zofran ODT 4 mg Tab-Dis 4 mg = 1 tab(s), Oral, q8hr, PRN Nausea/Vomiting, # 12 tab(s), Refills(s) 0, Pharmacy: [facility], 170, cm, 01/03/23 22:44:00 EDT, Height/Length Dosing, 75.3, kg, 01/03/23 22:44:00 EDT, Weight Dosing Start Date: 01/03/23 Status: Ordered Start: 06-09-2019 take 1 tablet by faby th three times daily Zofran ODT 4 mg Tab-Dis 4 mg = 1 tab(s), Oral, TID, # 15 tab(s), Refills(s) 0, Pharmacy: [facility] Start Date: 06/09/19 Status: Ordered [...] take 450 mg by mouth twice daily [place] Carbonate Discontinued 450 MG PO Twice daily March 26, 2021 12:00am May 05, 2021 1:39am meclizine hydrochloride 25 mg [...] Onset: 09-04-2021 Episodic Other upper respiratory infections (10 sources) Acute upper respiratory infection, unspecified; Translations: [...] Test Name Value Interpretation Reference Range Facility MICRO OTHER TESTSOrdered By: Nita Delgadillo on 02-03-2024 S. pyogenes Ag IA.rapid Ql (Throat) Negative (02/03/24 11:07 AM) Normal Negative [facility] Man Sero MICRO OTHER TESTSOrdered By: Asuncion Goncalves on 02-03-2024 Rapid COV Int NEG Ctl Pass (02/03/24 9:30 AM) Normal [facility] Man Sero Rapid COV Int POS Ctl Pass (02/03/24 9:30 AM) Normal [facility] Sero SARS-CoV+SARS-CoV-2 (COVID-19) Ag IA.rapid Ql (Resp) Not Detected 1 (02/03/24 9:30 AM) Normal Not Detected [facility] Man Sero Comment on above: Interpretive Data: [employer] Veritor System for Rapid Detection of SARS-CoV-2 is a chromatographic digital immunoassay intended for the direct and qualitative detection of SARS-CoV-2 nucleocapsid antigens in nasal swabs from individuals who are suspected of COVID-19 by their healthcare provider within the first five days of the onset of symptoms. Negative results should be treated as presumptive, do not rule out SARS-CoV-2 infection and should not be used as the sole basis for treatment or patient management decisions, including infection control decisions. Negative results should be considered in the context of a patient s recent exposures, history and the presence of clinical signs and symptoms consistent with COVID-19, and confirmed with a molecular assay, if necessary, for patient management. For in vitro diagnostic use. In the [place], only for use under an Emergency Use Authorization. In the [place], this test has not been FDA cleared or approved; this test has been authorized by FDA under an EUA for use by authorized laboratories; use by laboratories certified under the CLIA, 42 U.S.C. 263a, that meet requirements to perform moderate, high, or waived complexity tests and at the Point of Care (POC), i.e., in patient care settings operating under a CLIA Certificate of Waiver, Certificate of Compliance, or Certificate of Accreditation. This test has been authorized only for the detection of proteins from SARS-CoV-2, not for any other viruses or pathogens; and, in the [facility] [[email or web address]], this test is only authorized for the duration of the declaration that circumstances exist justifying the authorization of emergency use of in vitro diagnostics for detection and/or diagnosis of the virus that causes COVID-19 under Section 564(b)(1) of the Act, 21 U.S.C. 360bbb-3(b)(1), unless the authorization is terminated or revoked sooner. ED Note-Physicianon 09-26-19 ED Note-Physician Basic Information [...] than 90,000. Ultrasound was obtained discussed with computer field technician. Intrauterine consistent with stated gestational age. Stable heart rate. Patient continues to demonstrate subchorionic hematoma. Also left-sided ovarian cyst similar to previous. Results were discussed with the patient. She is discharged home to continue pelvic rest and follow-up with [facility]. Patient was encouraged to return to the [...] Juvenal THORPE In 3 days 09/26/[address] [place] [address]- Business (1) Additional Instructions: Patient Education Subchorionic [...] made to ensure accuracy, however, inadvertently computerized computing tutor mistakes may be present. Appropriate healthcare PPE [...] Yes., 04/10/2019 Lab Results Beta hCG Qnt: 11704 mIU/mL High (09/23/23 09:28:00) Diagnostic Results No qualifying data available. [facility] Comment on above: Result Comment: Elec tronically Signed By: Venkat Lockwood PA-C\.br\Date and Time Signed: 09/23/23 11:45 EDT\.br\Electronically Co-Signed By: Wil Chandra DO\.br\Date and Time Co-Signed: 09/26/23 07:37 EDT [facility] 09-23-20[place] [address] m[IU]/mL High 1-3 F [facility] Comment on above: Result Comment: 'F N ON < 1 - 3' ' 0.2 - 1 WEEK = 5 TO 50' ' 1 - 2 WEEKS = 50 - 500' ' 2 - 3 WEEKS = 100 - 5000' ' 3 - 4 WEEKS = 500 - 00761' ' 4 - 5 WEEKS = 1000 - 78074' ' 5 - 6 WEEKS = 80555 - 299374' ' 6 - 8 WEEKS = 12033 - 799335' ' 8 - 12 WEEKS = 13186 - 438656' Performed By: #### 2 747085, 94330375, 7111157, 3564944, 7337735, 3946510, 8022397 #### [facility] [address] [place] [address] CHEMISTRYOrdered By: SYSTEM SYSTEM on 09-23-2023 [place] [address] m[IU]/mL High 1 - 3 mIU/mL [facility] Comment on above: Result Comment: 'F N ON < 1 - 3' ' 0.2 - 1 WEEK = 5 TO 50' ' 1 - 2 WEEKS = 50 - 500' ' 2 - 3 WEEKS = 100 - 5000' ' 3 - 4 WEEKS = 500 - 63945' ' 4 - 5 WEEKS = 1000 - 43072' ' 5 - 6 WEEKS = 11826 - 410360' ' 6 - 8 WEEKS = 34342 - 897117' ' 8 - 12 WEEKS = 35528 - 291802' Consent for Treatmenton 09-07 Consent for Treatment [id number]#[id number] Normal [facility] Discharge Instructionson Discharge Instructions [id number] Normal [facility] ED Clinical Summaryon 2023 ED Clinical Summary [address] [address] ED Clinical Summary Person Information Name: KAILYN ACKERMAN Heena/[facility] Age: 23 Years : 2000 Sex: Female Language: Serbian PCP: NONE, XXXX Marital Status: Single Phone: [phone] MRN: Visit Id: Visit Reason: Back pain; [...] 09/23/2023 11:52:16 09/23/2023 11:52:16 09/23/2023 11:52:16 ADDRESS: [address] [place] [phone] PHYS DOC NOTES: MEDICAL INFORMATION: Prescriptions Given: Medications to Continue with No Changes Other Medications cephalexin (Keflex 500 mg Cap) 1 Capsules By Mouth every 12 hours. Refills: 0. ethinyl estradiol-norethin drone (Microgestin /20 20 mcg-1 mg oral tablet) ondansetron (Zofran ODT 4 mg Tab-Dis) 1 Tablets By Mouth 3 times a day. Refills: 0. ondansetron (Zofran ODT 4 mg Tab-Dis) 1 Tablets By Mouth every 8 hours as needed Nausea/Vomiting. Refills: 0. PATIENT EDUCATION INFORMATION: Instructions: Subchorionic Hematoma Follow up: With: Address: When: [facility], [address] [place] [address] , [place] [address] [facility] (1) In 3 days 09/26/2023 DIAGNOSIS: Other antepartum hemorrhage, unspecified trimester; Subchorionic bleed; Vaginal bleeding in Normal [facility] ED Patient Education Noteon 09-23-2023 ED Patient [...] Reviewed: 02/19/2021 Elsevier Patient Education ? 2022 Synerscope. Normal [facility] ED Patient Summaryon 024 ED Patient Summary [address] [address] Patient Discharge Instructions Person Information Name: KAILYN ACKERMAN Age: 23 Years Arrival Date: 09/23/2023 09:10:07 Discharge Diagnosis: Other antepartum hemorrhage, unspecified trimester; Subchorionic bleed; Vaginal bleeding in Primary Care Physician: NONE, XXXX Provider Information Primary Provider: Wil Chandra DO Advanced Phone Triage Specialist:Venkat Leal PA-C The exam and treatment you received in the Emergency Department were for an urgent problem and are not intended as complete care. It is important that you follow up with a doctor, nurse practitioner, or physician?s instructional support assistant for ongoing care. If your symptoms become worse or you do not improve as expected and you are unable to reach your usual health care provider, you should return to the Emergency Department. We are available 24 hours a day. GARCÍA ACKERMANNARI Gordon has been given the following list of patient education materials, prescriptions and follow-up instructions: Follow-up Instructions: With: Address: When: Juvenal THORPE [facility], [address] [place] [address] [place] [address] Business (1) In 3 days 09/26/2023 In the event that this physician does not participate in your insurance network, please consult with your insurance company to find a nearby participating provider. Patient Education Materials: Subchorionic Hematoma A MESSAGE TO ALL PATIENTS REGARDING OPIOIDS PRESCRIPTION OPIOIDS: WHAT YOU NEED TO KNOW Prescription opioids can be used to help relieve visikmec-dk-bleisa pain and are often prescribed following a [...] health care p (more content not included)... Normal [facility] Prescriptions/Work Noteson 0 09-23-2023 Prescriptions/Work Notes [id number]#[id number] Normal [facility] US 1st Trimesteron 09-23-2023 US 1st Trimester [...] least 66% of the gestational sac circumference. Humphrey Rump Length: 3.2 cm, which corresponds Composite [...] Size = Dates Uterus Position Anteverted Normal [facility] C Urineon 08-29-2023 Bacteria identified Cx Nom [...] Locations R1: This test was performed at: [facility], [address] [place] [address], [facility] , , [facility] Comment on above: Performed By: #### 2 806346, 63654033, 8386273, 5518750, 8688752, 4365323, 9600301 #### [facility] [address] [place] [address] 61432 ABO/Rhon 08-27-2023 ABO/Rh Positive Invalid Interpretation Code [facility] Comment on above: Performed By: #### 2 467635, 47713729, 7253507, 4037736, 4989149, 9102527, 6584156 #### [facility] [address] [place] [address] BLOOD BANKOrdered By: Liza Xavier on 08-27-2023 ABO/Rh Interp Positive Invalid Interpretation Code [facility] BB Subsection BMPon 08-27-2023 Anion gap [Moles/Vol] 11 mmol/L Normal 6-16 [facility] Comment on above: Performed By: #### 2 686064, 16088200, 7697903, 0150473, 6785819, 3289341, 7677407 #### [facility] [address] [place] [address] Calcium [Mass/Vol] 9.3 mg/dL Normal 8.9-11.1 [facility] Comment on above: Performed By: #### 2 162597, 98166508, 7006975, 7932459, 5171411, 1863488, 9846991 #### [facility] [address] [place] [address] Chloride [Moles/Vol] 104 mmol/L Normal 101-111 [facility] Comment on above: Performed By: #### 2 850241, 26662239, 1078796, 6420227, 3980556, 5191046, 5472380 #### [facility] [address] [place] [address] CO2 [Moles/Vol] 24 mmol/L Normal 21-31 [facility] Comment on above: Performed By: #### 2 175764, 07468538, 1389970, 2190095, 1153810, 5244634, 6910851 #### [facility] [address] [place] [address] Creatinine [Mass/Vol] 0.6 mg/dL Normal 0.5-1.3 [facility] Comment on above: Performed By: #### 2 517724, 00051703, 0275908, 6423294, 4906565, 4924427, 8440359 #### [facility] [address] [place] [address] Glucose [Mass/Vol] 87 mg/dL Normal 55-199 [facility] Comment on above: Performed By: #### 2 391843, 26994941, 0691215, 6902413, 7491378, 6428577, 3879271 #### [facility] [address] [place] [address] Potassium [Moles/Vol] 3.7 mmol/L Normal 3.5-5.3 [facility] Comment on above: Performed By: #### 2 840172, 68550774, 9256513, 5653589, 9002002, 4213304, 6172840 #### [facility] [address] [place] [address] Sodium [Moles/Vol] 135 mmol/L Normal 135-145 [facility] Comment on above: Performed By: #### 2 317711, 42736954, 9763217, 7148918, 8249385, 1103768, 4104223 #### [facility] [address] [place] [address] Urea nitrogen [Mass/Vol] 8 mg/dL Normal - [facility] Comment on above: Performed By: #### 2 206547, 29806383, 1354821, 6675420, 0821927, 6959694, 1605640 #### [facility] [address] [place] [address] Urea nitrogen/Creatinine [Mass ratio] 13 No Units Normal - [facility] Comment on above: Performed By: #### 2 850119, 87148720, 0196855, 2120846, 6039068, 8745876, 2175795 #### [facility] [address] [place] [address] 19261 BhCG Quanton 08-27-2023 [place] [address] m[IU]/mL High 1-3 F [facility] Comment on above: Result Comment: 'F N ON < 1 - 3' ' 0.2 - 1 WEEK = 5 TO 50' ' 1 - 2 WEEKS = 50 - 500' ' 2 - 3 WEEKS = 100 - 5000' ' 3 - 4 WEEKS = 500 - 38547' ' 4 - 5 WEEKS = 1000 - 93612' ' 5 - 6 WEEKS = 37454 - 871312' ' 6 - 8 WEEKS = 53831 - 238530' ' 8 - 12 WEEKS = 77561 - 826772' Performed By: #### 2 454599, 37543824, 2620798, 9055655, 8957686, 0858512, 3506307 #### [facility] [address] [place] [address] 82998 CBC w/ Auto Diffon 4 Basophils/100 WBC (Bld) 0.6 % Normal 0.0-2.0 [facility] Comment on above: Performed By: #### 2 497711, 13784869, 6264125, 9503244, 1435242, 2784455, 9505155 #### [facility] [address] [place] [address] Basophils/Leukocytes Auto (Bld) [Pure # fraction] 0.0 E9/L Normal 0.0-0.2 [facility] Comment on above: Performed By: #### 2 903304, 60315443, 7319479, 1577002, 3437451, 2987108, 3083745 #### [facility] [address] [place] [address] 38731 Eosinophils (Bld) [#/Vol] 0.1 E9/L Normal 0.0-0.5 [facility] Comment on above: Performed By: #### 2 527831, 62730743, 1747931, 8505610, 5851859, 9806422, 5721453 #### [facility] [address] [place] [address]380 Eosinophils/100 WBC (Bld) 2.0 % Normal 0.0-8.0 [facility] Comment on above: Performed By: #### 2 192353, 15974179, 2328319, 4492699, 3469076, 3290157, 9026362 #### [facility] [address] [place] [address] 48878 Erythrocyte distribution width (RBC) [Ratio] 15.0 % High 10.9-14.2 [facility] Comment on above: Performed By: #### 2 833462, 77306407, 2431196, 2799360, 9498464, 6737148, 0585478 #### [facility] [address] [place] [address] 78768 Hematocrit (Bld) [Volume fraction] 37.4 % Normal 34.0-46.0 [facility] Comment on above: Performed By: #### 2 299984, 79641530, 5374598, 6925750, 7826230, 3666654, 9048145 #### [facility] [address] [place] [address] Hemoglobin (Bld) [Mass/Vol] 12.7 g/dL Normal 12.0-16.0 [facility] Comment on above: Performed By: #### 2 284703, 15867105, 2605164, 5617955, 4687443, 6038843, 4619666 #### [facility] [address] [place] [address] 29777 Lymphocytes (Bld) [#/Vol] 2.0 E9/L Normal 1.0-4.0 [facility] Comment on above: Performed By: #### 2 585828, 51915610, 1619459, 4858897, 3766056, 9170415, 9351085 #### [facility] [address] [place] [address] 35685 Lymphocytes/100 WBC (Bld) 28.1 % Normal 14.0-50.0 [facility] Comment on above: Performed By: #### 2 059401, 36449466, 6020771, 4664075, 1630259, 9958666, 2262459 #### [facility] [address] [place] [address] 03646 MCH (RBC) [Entitic mass] 28.4 pg Normal 27.0-34.0 [facility] Comment on above: Performed By: #### 2 476346, 56922300, 9186851, 7122594, 8906108, 7710653, 3367647 #### [facility] [address] [place] [address] MCHC (RBC) [Mass/Vol] 33.8 g/dL Normal 31.4-36.0 [facility] Comment on above: Performed By: #### 2 240816, 46260195, 1523228, 8391104, 1857109, 7770896, 7427476 #### [facility] [address] [place] [address] MCV (RBC) [Entitic vol] 84.0 fL Normal 80.0-100.0 [facility] Comment on above: Performed By: #### 2 618810, 87038263, 0925464, 7344309, 8157461, 9360707, 0950354 #### [facility] [address] [place] [address] 38855 Monocytes (Bld) [#/Vol] 0.5 E9/L Normal 0.2-1.0 [facility] Comment on above: Performed By: #### 2 239153, 61831637, 3642540, 6871708, 1023695, 0282206, 3304672 #### [facility] [address] [place] [address] 63557 Neutrophils (Bld) [#/Vol] 4.5 E9/L Normal 2.0-7.5 [facility] Comment on above: Performed By: #### 2 334464, 34896966, 3126194, 1432444, 5046046, 8978563, 6438167 #### [facility] [address] [place] [address] 97142 Neutrophils/100 WBC (Bld) 61.9 % Normal 36.0-75.0 [facility] Comment on above: Performed By: #### 2 790135, 83446270, 4605658, 0576963, 0346132, 8610214, 0234392 #### [facility] [address] [place] [address] Platelet mean volume (Bld) [Entitic vol] 7.9 fL Normal 6.4-10.8 [facility] Comment on above: Performed By: #### 2 059760, 43977252, 5845259, 4306459, 1324410, 9106087, 9174301 #### [facility] [address] [place] [address] Platelets (Bld) [#/Vol] 252.0 E9/L Normal 150.0-500.0 [facility] Comment on above: Performed By: #### 2 185624, 11505024, 3830153, 8263394, 1349071, 5687356, 0932709 #### [facility] [address] [place] [address] RBC (Bld) [#/Vol] 4.5 E12/L Normal 4.3-5.9 [facility] Comment on above: Performed By: #### 2 887042, 88622266, 6899247, 4905305, 9536016, 4365827, 7461395 #### [facility] [address] [place] [address] WBC corrected for nucl RBC Auto (Bld) [#/Vol] 7.2 E9/L Normal 4.0-11.0 [facility] Comment on above: Performed By: #### 2 696506, 95002568, 6753052, 9588335, 9679285, 3056942, 8657587 #### [facility] [address] [place] [address] CHEMISTRYOrdered By: SYSTEM SYSTEM on 08-27-2023 Anion [...] 199 mg/[place] [address] m[IU]/mL High 1 - 3 mIU/mL [facility] Comment on above: Result Comment: 'F N ON < 1 - 3' ' 0.2 - 1 WEEK = 5 TO 50' ' 1 - 2 WEEKS = 50 - 500' ' 2 - 3 WEEKS = 100 - 5000' ' 3 - 4 WEEKS = 500 - 49816' ' 4 - 5 WEEKS = 1000 - 97425' ' 5 - 6 WEEKS = 09511 - 921475' ' 6 - 8 WEEKS = 54971 - 931689' ' 8 - 12 WEEKS = 82107 - 403215' Potassium [Moles/Vol] 3.7 mmol/L Normal 3.5 - 5.3 mmol/L [facility] Sodium [Moles/Vol] 135 mmol/L Normal 135 - 145 mmol/L [facility] Urea nitrogen [Mass/Vol] 8 mg/dL Normal 5 - 21 mg/d L [facility] Urea nitrogen/Creatinine [Mass ratio] 13 mg/mg Normal 10 - 20 [facility] Consent for Treatmenton 08-08 Consent for Treatment [id number] Normal [facility] Discharge Instructionson Discharge Instructions [id number] Normal [facility] ED Clinical Summaryon 2023 ED Clinical Summary [place] [id number] ED Clinical Summary Person Information Name: KAILYN ACKERMAN Heena/[facility] Age: 22 Years : 2000 Sex: Female Language: Serbian PCP: SELAM HUNTER CNP Marital Status: Single Phone: [phone] MRN: Visit Id: Visit Reason: Vaginal bleeding [...] 08/27/2023 12:34:16 08/27/2023 12:34:16 08/27/2023 12:34:16 ADDRESS: [address] [place] [phone] PHYS DOC NOTES: MEDICAL INFORMATION: Prescriptions Given: Medications to Continue Taking That Have Changed [facility], [address] [place], [place] [id number], [phone] START: cephalexin (Keflex 500 mg Cap) 1 Capsules By Mouth every 6 hours for 7 Days. Refills: 0. Other Medications START: cephalexin (Keflex 500 mg Cap) 1 Capsules By Mouth every 12 hours. Refills: 0. Medications to Continue with No Changes Other Medications ethinyl estradiol-norethin drone (Microgestin 06/28 20 mcg-1 mg oral tablet) ondansetron (Zofran ODT 4 mg Tab-Dis) 1 Tablets By Mouth 3 times a day. Refills: 0. ondansetron (Zofran ODT 4 mg Tab-Dis) 1 Tablets By Mouth every 8 hours as needed Nausea/Vomiting. Refills: 0. PATIENT EDUCATION INFORMATION: Instructions: and Urinary Tract Infection; Urinary Tract Infection, Adult, Geve-iz-Svse; Subchorionic Hematoma Follow up: With: Address: When: Juvenal THORPE [facility], [address] [place] [address] [place] [address] Business (1) In 3 days 08/30/2023 With: Address: When: [place] [address] Business (1) In 3 days DIAGNOSIS: Other antepartum hemorrhage, unspecified trimester; Subchorionic bleed; UTI (urinary tract infection) during ; Vaginal bleeding in Normal [facility] ED Note-Physicianon 08-27-19 ED Note-Physician Basic Information [...] and Complexity of Problems Differential Diagnosis: [] [facility] Data External documents reviewed: [] My EKG [...] day(s), # 28 cap(s), Refills(s) 0, Pharmacy: [facility], 170, cm, 08/27/23 9:49:00 EDT, Height/Length [...] q6hr Follow-up With When Contact Information Juvenal ASHIA In 3 days 08/30/[address] , [place] [address]- Business (1) Additional Instructions: SELAM HUNTER In 3 days [address] [place] [address]- Business (1) Additional Instructions: Patient Education and Urinary Tract Infection Urinary Tract Infection, Adult, Vqwg-si-Elnu Subchorionic Hematoma Attestation Patient seen and evaluated by the physician instructional support assistant. Attending physician was present in the emergency department and s (more content not included)... Normal [facility] Comment on above: Result Comment: Elec tronically [...] provider. Document Revised: 01/09/2022 Document Reviewed: 01/09/2022 [employer] Patient Education ? 2022 Synerscope. Urinary Tract Infection, Adult A urinary tract [...] swelling (inflammation) (more content not included)... Normal [facility] ED Patient Summaryon 024 ED Patient Summary [place] [id number] Patient Discharge Instructions Person Information Name: KAILYN ACKERMAN Age: 22 Years [facility]: [id number] Arrival Date: 08/27/2023 09:37:12 Discharge Diagnosis: Other antepartum hemorrhage, unspecified trimester; Subchorionic bleed; UTI (urinary tract infection) during ; Vaginal bleeding in Primary Care Physician: SELAM HUNTER CNP Provider Information Primary Provider: Emily Harper M.D. Advanced Phone Triage Specialist:None The exam and treatment you received in the Emergency Department were for an urgent problem and are not intended as complete care. It is important that you follow up with a doctor, nurse practitioner, or physician?s instructional support assistant for ongoing care. If your symptoms become worse or you do not improve as expected and you are unable to reach your usual health care provider, you should return to the Emergency Department. We are available 24 hours a day. TYRON KAILYN Gordon has been given the following list of patient education materials, prescriptions and follow-up instructions: Follow-up Instructions: With: Address: When: Juvenal THORPE [facility], [address] [place] [address] [place] [address] Business (1) In 3 days 08/30/2023 With: Address: When: [place] [phone] Business (1) In 3 days In the event that this physician does not participate in your insurance network, please consult with your insurance company to find a nearby participating provider. Patient Education Materials: and Urinary Tract Infection; Urinary Tract Infection, Adult, Qbzg-yl-Mjxl; Subchorionic Hematoma A MESSAGE TO ALL PATIENTS REGARDING OPIOIDS PRESCRIPTION OPIOIDS: WHAT YOU NEED TO KNOW Prescription opioids can be used to help relieve auaxehcc-xm-nkkrne pain and are often prescribed following a [...] toilet, follo (more content not included)... Normal [facility] HEMATOLOGYOrdered By: SYSTEM SYSTEM on 08-27-2023 Basophils/100 [...] Remisol Heme UA with Cult Rflxon 08-27-19 24 Color (U) Light-Yellow Normal Yellow [facility] Comment on above: Result Comment: Micr oscopic readings are only performed on those samples that meet specific criteria set forth by [facility]. Performed By: #### 2 207945, 78381610, 9114639, 9922382, 6417272, 7485060, 1165381 #### [facility] [address] [place] [address] Glucose (U) [Mass/Vol] Negative Normal Negative [facility] Comment on above: Performed By: #### 2 830145, 14151875, 2223161, 0744701, 0226385, 8425792, 3665500 #### [facility] [address] [place] [address] Ketones Ql (U) Negative Normal Negative [facility] Comment on above: Performed By: #### 2 397829, 90575616, 9305457, 0935774, 9619450, 7584055, 3979224 #### [facility] [address] [place] [address] UA Blood 3+ Abnormal Negative [facility] Comment on above: Performed By: #### 2 063897, 97023050, 3698682, 0065841, 4120696, 3146205, 5181540 #### [facility] [address] [place] [address] UA Bacteria 1+ CD:[id number] Abnormal Trace [facility] Comment on above: Performed By: #### 2 177377, 88923034, 0672821, 9176803, 5446910, 0382271, 0490419 #### [facility] [address] [place] [address] UA Clarity Turbid Abnormal Clear [facility] Comment on above: Performed By: #### 2 500312, 75626731, 1514554, 3862101, 4741298, 8741921, 4815155 #### [facility] [address] [place] [address] UA Hyal Cast 0-3 Normal 0-3 [facility] Comment on above: Performed By: #### 2 062718, 92590080, 0005293, 2679940, 3076046, 5529216, 7286860 #### [facility] [address] [place] [address] UA Leuk Est 250 Stefania/uL Abnormal Negative [facility] Comment on above: Performed By: #### 2 978130, 94444168, 5727386, 5934508, 3138622, 3703250, 5064372 #### [facility] [address] [place] [address] UA Mucous Trace Normal Negative [facility] Comment on above: Performed By: #### 2 240460, 22882571, 0427276, 7446943, 1492435, 6838554, 5760789 #### [facility] [address] [place], [place] [address] UA Nitrite Negative Normal Negative [facility] Comment on above: Performed By: #### 2 986427, 16913550, 4231945, 7627112, 1600142, 7611647, 1214355 #### [facility] [address] [place] [address] UA pH 5.5 Invalid Interpretation Code 5.0-9.0 [facility] Comment on above: Performed By: #### 2 583161, 67497956, 6378785, 9411478, 8495375, 1056147, 6232133 #### [facility] [address] [place], [place] [address] UA Protein 1+ mg/dL Abnormal Negative [facility] Comment on above: Performed By: #### 2 344594, 57889822, 4174345, 3378108, 2289858, 7646493, 2883197 #### [facility] [address] [place] [address] UA RBC 4-20 Abnormal 0-3 [facility] Comment on above: Performed By: #### 2 599536, 37314827, 7601702, 6015419, 3093363, 4888642, 3508904 #### [facility] [address] [place] [address] UA Spec Grav 1.018 Invalid Interpretation Code 1.005-1.030 [facility] Comment on above: Performed By: #### 2 389939, 88317675, 8216801, 1426768, 7222154, 3336233, 8031266 #### [facility] [address] [place] [address] UA Squam Epithelial 3-4 Abnormal 0-2 [facility] Comment on above: Performed By: #### 2 052032, 60617383, 8062360, 2000810, 5526190, 5461584, 7314739 #### [facility] [address] [place] [address] UA Urobilinogen Negative Normal Negative [facility] Comment on above: Performed By: #### 2 490643, 10526348, 8047073, 2609992, 9802819, 6832723, 4342505 #### [facility] [address] [place] [address] UA WBC 6-15 Abnormal 0-5 [facility] Comment on above: Performed By: #### 2 638357, 69482244, 1653039, 9392659, 1540180, 7784302, 4535199 #### [facility] [address] [place] [address] Urobilinogen (U) [Mass/Vol] Negative Normal Negative [facility] Comment on above: Performed By: #### 2 858072, 07497444, 2136738, 5797701, 2030899, 8694400, 4772147 #### [facility] [address] [place] [address] UA Spec Desc Clean Catch Normal [facility] Comment on above: Performed By: #### 2 298796, 57037724, 2291173, 1594826, 4442049, 7634218, 0900990 #### [facility] [address] [place] [address] URINALYSISOrdered By: SYSTEM SYSTEM on 08-27-2023 Color (U) Light-Yellow 1 (08/27/23 9:55 AM) Normal Yellow [facility] UA Auto SS Comment on above: Interpretive Data: M icroscopic readings are only performed on those samples that meet specific criteria set forth by [facility]. Glucose (U) [Mass/Vol] Negative Normal Negat [...] SS UA Urobilinogen Negative Normal Negativemg/d L [facility] UA Auto SS UA WBC 6-15 graded/HPF Invalid Interpretation Code 0-5graded/HP F [facility] UA Auto SS Urobilinogen (U) [Mass/Vol] Negative Normal Negativemg/d L [facility] UA Auto SS URINALYSISOrdered By: Hudson munoz on 08-27-2023 UA Spec Desc Clean Catch (08/27/23 9:55 AM) Normal [facility] UA Auto SS US 1st Trimesteron 08-27-2023 US 1st Trimester Exam Date/Time: 08/27/2023 11:54 EDT Reason for Exam: Other (please specify) Report [facility] [phone] IMPRESSION: Single live intrauterine with estimated sonographic [...] heart rate is measured at 120 bpm. Humphrey-rump length 4.77 mm. Estimated sonographic gestational age [...] Transvaginal Ultrasound Performed FHR (bpm) 120 Normal [facility] US Transvaginalon 08-27-2023 US Transvaginal Exam Date/Time: 08/27/2023 11:55 EDT Reason for Exam: Other (please specify) Report [facility] [phone] Please see ultrasound pelvis, for report of transvaginal examination. Ordering Provider: Hudson Riley FINAL REPORT Dictated: 08/27/2023 12:33 pm Zach Deng MD Signed (Electronic Signature): 08/27/2023 12:33 pm Signed by: Zach Deng MD Transcribed by: KIRK Technologist: SHELLEY Normal [facility] eGFRon 08-27-2023 eGFR 131 mL/min/1.73 m2 Normal >=59 [facility] Comment on above: Order Comment: Order Added by Discern Expert. Performed By: #### 2 188223, 46367711, 0744520, 0826396, 6711795, 7339636, 5592899 #### [facility] [address] [place] [address] [place] [address] [facility] Quanton 08-19-2023 HCG.beta subunit Qn 4261 m[IU]/mL High 1-3 [facility] Comment on above: Result Comment: 'F N ON < 1 - 3' ' 0.2 - 1 WEEK = 5 TO 50' ' 1 - 2 WEEKS = 50 - 500' ' 2 - 3 WEEKS = 100 - 5000' ' 3 - 4 WEEKS = 500 - 01506' ' 4 - 5 WEEKS = 1000 - 62884' ' 5 - 6 WEEKS = 96473 - 359088' ' 6 - 8 WEEKS = 14242 - 963502' ' 8 - 12 WEEKS = 73109 - 415318' Performed By: #### 2 580332, 82265628, 7091286, 9064342, 7968870, 4939821, 0044245 #### [facility] [address] [place] [address] Physician Orderon 08-19-2023 Physician Order [id number]#[id number] Normal [facility] C Urineon 01-05-2023 Bacteria identified Cx Nom (U) Microbiology PROCEDURE: Urine Culture [R1] SOURCE: U CleanCatch BODY SITE: COLLECTED DATE/TIME: 01/03/2023 22:52 EDT RECEIVED DATE/TIME: 01/03/2023 23:34 EDT START DATE/TIME: 01/03/2023 23:34 EDT FREE TEXT SOURCE: Jesús Lopez DO, DO, Noah S. FINAL REPORTS Final Report [] Verified Date/Time: 01/05/2023 07:22 EDT <10,000 cfu/ml Mixed skin contaminants Performing Locations R1: This test was performed at: [facility], [address] [place] [address], [address] , , Normal [facility] Comment on above: Performed By: #### 2 887249, 50432361, 3864387, 8194146, 7846381, 7458060, 7541438 #### [facility] [address] [place] [address] Auto Diffon 01-04-2023 Basophils/100 WBC (Bld) 0.3 % Normal 0.0-2.0 [facility] Comment on above: Order Comment: Order Added by Discern Expert. Performed By: #### 2 744083, 52554805, 8766964, 7951752, 5211468, 7374298, 5403098 #### [facility] [address] [place] [address] Basophils/Leukocytes Auto (Bld) [Pure # fraction] 0.1 E9/L Normal 0.0-0.2 [facility] Comment on above: Order Comment: Order Added by Discern Expert. Performed By: #### 2 479518, 07945507, 2515480, 3525237, 7131957, 3622225, 4938826 #### [facility] [address] [place] [address] Eosinophils/100 WBC (Bld) 0.3 % Normal 0.0-8.0 [facility] Comment on above: Order Comment: Order Added by Discern Expert. Performed By: #### 2 059053, 01995908, 1598439, 7543637, 1711427, 5284189, 4994789 #### [facility] [address] [place] [address] Eosinophils/Leukocytes Auto (Bld) [Pure # fraction] 0.0 E9/L Normal 0.0-0.5 [facility] Comment on above: Order Comment: Order Added by Discern Expert. Performed By: #### 2 661101, 28460163, 2009704, 8560333, 7368779, 7015353, 9335748 #### [facility] [address] [place] [address] Lymphocytes/100 WBC (Bld) 7.5 % Low 14.0-50.0 [facility] Comment on above: Order Comment: Order Added by Discern Expert. Performed By: #### 2 928788, 05260163, 8367668, 0468987, 6102053, 4017265, 3808785 #### [facility] [address] [place] [address] Lymphocytes/Leukocytes Auto (Bld) [Pure # fraction] 1.3 E9/L Normal 1.0-4.0 [facility] Comment on above: Order Comment: Order Added by Discern Expert. Performed By: #### 2 007704, 32972351, 6385531, 6231165, 8083640, 7998061, 4446799 #### [facility] [address] [place] [address] Monocytes/100 WBC (Bld) 5.7 % Normal 4.0-14.0 [facility] Comment on above: Order Comment: Order Added by Discern Expert. Performed By: #### 2 051360, 40390593, 6677679, 5047081, 6563694, 5441327, 8712803 #### [facility] [address] [place] [address] Monocytes/Leukocytes Auto (Bld) [Pure # fraction] 1.0 E9/L Normal 0.2-1.0 [facility] Comment on above: Order Comment: Order Added by Discern Expert. Performed By: #### 2 613040, 91007008, 3753851, 5679354, 8381166, 8757776, 6094603 #### [facility] [address] [place] [address] Neutrophils/100 WBC (Bld) 86.2 % High 36.0-75.0 [facility] Comment on above: Order Comment: Order Added by Discern Expert. Performed By: #### 2 200930, 21042636, 7101059, 7342575, 3677859, 8322206, 4962566 #### [facility] [address] [place] [address] Neutrophils/Leukocytes Auto (Bld) [Pure # fraction] 14.6 E9/L High 2.0-7.5 [facility] Comment on above: Order Comment: Order Added by Discern Expert. Performed By: #### 2 220374, 46063344, 8895204, 8216402, 3621357, 3284740, 6182792 #### [facility] [address] [place] [address] BMPon 01-04-2023 Anion gap [Moles/Vol] 11 mmol/L Normal 6-16 [facility] Comment on above: Performed By: #### 2 357841, 36486223, 5421139, 6665063, 3822020, 1907473, 5051125 #### [facility] [address] [place] [address] Calcium [Mass/Vol] 9.0 mg/dL Normal 8.9-11.1 [facility] Comment on above: Performed By: #### 2 570650, 17978183, 8183773, 9031320, 1850900, 9252042, 0427818 #### [facility] [address] [place] [address] Chloride [Moles/Vol] 106 mmol/L Normal 101-111 [facility] Comment on above: Performed By: #### 2 344769, 91335120, 4873929, 5033775, 9007428, 4783509, 7662623 #### [facility] [address] [place] [address] CO2 [Moles/Vol] 23 mmol/L Normal 21-31 [facility] Comment on above: Performed By: #### 2 959406, 11598420, 0853611, 6021370, 3420011, 1689899, 8954252 #### [facility] [address] [place] [address] Creatinine [Mass/Vol] 0.8 mg/dL Normal 0.5-1.3 [facility] Comment on above: Performed By: #### 2 819834, 08082475, 6947289, 4408488, 7441587, 8257952, 9130671 #### [facility] [address] [place] [address] Glucose [Mass/Vol] 101 mg/dL Normal 55-199 [facility] Comment on above: Result Comment: If t his glucose result represents a fasting glucose, interpretation should refer to the following reference range: 55-99 mg/dL Performed By: #### 2 406396, 98509464, 7643774, 0726560, 5594907, 6411800, 2110730 #### [facility] [address] [place] [address] Potassium [Moles/Vol] 3.5 mmol/L Normal 3.5-5.3 [facility] Comment on above: Performed By: #### 2 553402, 16044652, 3164286, 9701330, 2983609, 2680667, 5498947 #### [facility] [address] [place] [address] Sodium [Moles/Vol] 136 mmol/L Normal 135-145 [facility] Comment on above: Performed By: #### 2 908957, 27907035, 3703525, 9729114, 3560958, 9935878, 7344603 #### [facility] [address] [place] [address] Urea nitrogen [Mass/Vol] 10 mg/dL Normal 5-21 [facility] Comment on above: Performed By: #### 2 265732, 07163647, 2246809, 1407106, 4967618, 5011239, 1252321 #### [facility] [address] [place] [address] Urea nitrogen/Creatinine [Mass ratio] 12 No Units Normal 10-20 [facility] Comment on above: Performed By: #### 2 723203, 69372909, 8910931, 1225027, 0943286, 8264458, 5290268 #### [facility] [address] [place] [address] BhCG Quanton 01-04-2023 HCG.beta subunit Qn 1572 m[IU]/mL High 1-3 [facility] Comment on above: Result Comment: GEST ATIONAL AGE HCG RANGE (mIU/mL) NON- <1-3 0.2-1 WEEKS 5-50 1-2 WEEKS 50-500 2-3 WEEKS 100-5,000 3-4 WEEKS 500-10,000 4-5 WEEKS 1,000-50,000 5-6 WEEKS 10,000-100,000 6-8 WEEKS 15,000-200,000 8-12 WEEKS 10,000-100,000 Performed By: #### 2 493834, 56011121, 4820925, 7618741, 1472345, 1322381, 7310469 #### [facility] [address] [place] [address] CBC w/ Auto Diffon 3 Erythrocyte distribution width (RBC) [Ratio] 15.9 % High 10.9-14.2 [facility] Comment on above: Performed By: #### 2 906468, 75197825, 4099340, 7819180, 5612376, 1958594, 9949246 #### [facility] [address] [place] [address] Hematocrit (Bld) [Volume fraction] 33.8 % Low 34.0-46.0 [facility] Comment on above: Performed By: #### 2 629305, 87359561, 8284430, 5139685, 7703789, 2478337, 4808064 #### [facility] [address] [place] [address] Hemoglobin (Bld) [Mass/Vol] 11.3 g/dL Low 12.0-16.0 [facility] Comment on above: Performed By: #### 2 194739, 11886036, 3383981, 0125686, 6721421, 5787700, 6339496 #### [facility] [address] [place] [address] MCH (RBC) [Entitic mass] 26.7 pg Low 27.0-34.0 [facility] Comment on above: Performed By: #### 2 872710, 89006611, 1291349, 1372192, 1937588, 1330415, 6767455 #### [facility] [address] [place] [address] MCHC (RBC) [Mass/Vol] 33.4 g/dL Normal 31.4-36.0 [facility] Comment on above: Performed By: #### 2 236717, 32869257, 5592861, 7868034, 7083570, 4622016, 3577286 #### [facility] [address] [place] [address] MCV (RBC) [Entitic vol] 80.1 fL Normal 80.0-100.0 [facility] Comment on above: Performed By: #### 2 540421, 05226601, 3414004, 7348770, 1308631, 1074062, 2514779 #### [facility] [address] [place] [address] Platelet mean volume (Bld) [Entitic vol] 7.6 fL Normal 6.4-10.8 [facility] Comment on above: Performed By: #### 2 038321, 46031774, 3491119, 9277175, 3898637, 2312243, 1393326 #### [facility] [address] [place] [address] Platelets (Bld) [#/Vol] 237.0 E9/L Normal 150.0-500.0 [facility] Comment on above: Performed By: #### 2 034384, 44322442, 1852098, 4065916, 3845268, 7497605, 8458033 #### [facility] [address] [place] [address] RBC (Bld) [#/Vol] 4.2 E12/L Low 4.3-5.9 [facility] Comment on above: Performed By: #### 2 163737, 05404531, 2155784, 5203462, 4073197, 7286848, 1790240 #### [facility] [address] [place] [address] WBC corrected for nucl RBC Auto (Bld) [#/Vol] 16.9 E9/L High 4.0-11.0 [facility] Comment on above: Performed By: #### 2 129790, 24228460, 8030205, 1615439, 0754398, 9839622, 8064667 #### [facility] [address] [place] [address] Consent for Treatmenton 12-08 Consent for Treatment [id number]:127 Normal [facility] Discharge Instructionson Discharge Instructions [id number]#[id number]:127 Normal [facility] ED Clinical Summaryon 2022 ED Clinical Summary [address] [address] ED Clinical Summary Person Information Name: KAILYN ACKERMAN [place] Age: 22 Years : 2000 Sex: Female Language: Serbian PCP: NONE, XXXX Marital Status: Single Phone: [phone] MRN: Visit Id: Visit Reason: Throat pain [...] 01/04/2023 00:13:00 01/04/2023 00:13:00 01/04/2023 00:13:00 ADDRESS: [address] [place] [id number] PHYS DOC NOTES: MEDICAL INFORMATION: Prescriptions Given: New Medications [facility], [address] [facility] [address] [place] [id number], [phone] cephalexin (Keflex 500 mg Cap) 1 Capsules By Mouth every 12 hours. Refills: 0. Medications to Continue Taking That Have Changed [facility], [address] [facility] [place] [id number], [phone] START: ondansetron (Zofran ODT 4 mg Tab-Dis) 1 Tablets By Mouth every 8 hours as needed Nausea/Vomiting. Refills: 0. Other Medications START: ondansetron (Zofran ODT 4 mg Tab-Dis) 1 Tablets By Mouth 3 times a day. Refills: 0. Medications to Continue with No Changes Other Medications ethinyl estradiol-norethin drone (Microgestin /20 20 mcg-1 mg oral tablet) PATIENT EDUCATION INFORMATION: Instructions: Pharyngitis, Vfbw-ss-Pksy Follow up: With: Address: When: Thony Carl [address] [place] [address], [facility] [place] [address] [facility] (1) In 3 days 01/06/2023 Comments: Follow-up with your primary care provider in 3 to 5 days. If symptoms worsen, do not improve, or new symptoms arise please report back to emergency department for further evaluation. DIAGNOSIS: Body aches; ; Strep pharyngitis [facility] ED Note-Nursingon 01-04-2023 ED Note-Nursing pt given d/c instructions and educated on importance of follow up. pt educated on new medication. pt verbalized understanding of instructions and readiness for d/c. pt walked self ambulatory to waiting room in stable condition. [facility] ED Note-Nursing Pt arrived to ed from home via private car with her boyfriend c/o fever, bodyaches, and sore throat all day today. pt states she took tylenol before she came in and zofran earlier in the day for nausea. pt states she is currently 4 weeks Normal [facility] ED Note-Physicianon 01-05-20 ED Note-Physician Basic Information Time Seen: Hudson Riley PA-C 01/03/2023 22:36 Chief Complaint complains of lower [...] and Complexity of Problems Differential Diagnosis: [] [facility] Data External documents reviewed: [] My EKG [...] possible UTI. was confirmed. Discussed follow-up with [facility]. Discussed return precautions. Discussed Tylenol every 6-8 [...] q12hr, # 20 cap(s), Refills(s) 0, Pharmacy: [facility], 170, cm, 01/03/23 22:44:00 EDT, Height/Length Dosing, 75.3, kg, 01/03/23 22:44:00 EDT, Weight Dosing ondansetron, 4 mg = 1 tab(s), Oral, q8hr, PRN Nausea/Vomiting, # 12 tab(s), Refills(s) 0, Pharmacy: [facility] 1985, 170, cm, 01/03/23 22:44:00 EDT, Height/Length Dosing, 75.3, kg, 01/03/23 22:44:00 EDT, Weight Dosing ondansetron, 12 mg = 3 tab(s), Tab-Dis, Oral, Once, Stop date 01/03/23 23:45:00 EDT, STAT, (more content not included)... Normal [facility] Comment on above: Result Comment: Elec tronically [...] these instructions at home: Medicines ? Take dysv-pbr-cccedzo and prescription medicines only as told by [...] and water are not available, use hand street vendor. ? Do not touch your eyes, nose, [...] Reviewed: 08/22/2021 Elsevier Patient Education ? 2022 [employer] Normal [facility] ED Patient Summaryon 023 ED Patient Summary [address], [place] [id number] Patient Discharge Instructions Person Information Name: KAILYN ACKERMAN Age: 22 Years Arrival Date: 01/03/2023 22:30:29 Discharge Diagnosis: Body aches; ; Strep pharyngitis Primary Care Physician: NONE, XXXX Provider Information Primary Provider: Jesús Lopez DO Advanced Phone Triage Specialist:Alejandro The exam and treatment you received in the Emergency Department were for an urgent problem and are not intended as complete care. It is important that you follow up with a doctor, nurse practitioner, or physician?s instructional support assistant for ongoing care. If your symptoms [...] Follow-up Instructions: With: Address: When: Thony Carl [address] [place] [address], [place] [address] Business (1) In 3 days 01/06/2023 Comments: Follow-up [...] nearby participating provider. Patient Education Materials: Pharyngitis, Twbf-xd-Zqbs A MESSAGE TO ALL PATIENTS REGARDING OPIOIDS PRESCRIPTION OPIOIDS: WHAT YOU NEED TO KNOW Prescription opioids can be used to help relieve qicyhpsi-zx-qjvnpi pain and are often prescribed following a [...] of o (more content not included)... Normal [facility] Hep Func Panelon 01-04-2023 Albumin [Mass/Vol] 3.9 g/dL Normal 3.3-5.0 [facility] Comment on above: Performed By: #### 2 842276, 39801303, 2763895, 7791547, 8541514, 4478327, 4908442 #### [facility] [address] [place] [address] Albumin/Globulin (S) [Mass conc ratio] 1.3 Normal 1.1-2.2 [facility] Comment on above: Performed By: #### 2 476679, 35843627, 0279839, 7697223, 9910116, 0893954, 2983553 #### [facility] [address] [place] [address] ALP [Catalytic activity/Vol] 50 Int._Unit/L Normal 21-98 [facility] Comment on above: Performed By: #### 2 666358, 77142556, 7581596, 6068941, 3158088, 0162711, 3867258 #### [facility] [address] [place] [address] ALT No additional P-5'-P [Catalytic activity/Vol] 13 Int._Unit/L Normal 6-46 [facility] Comment on above: Performed By: #### 2 899321, 47571617, 4887988, 6444294, 6288293, 4102925, 6201377 #### [facility] [address] [place] [address] AST [Catalytic activity/Vol] 17 Int._Unit/L Normal 5-43 [facility] Comment on above: Performed By: #### 2 761754, 44046513, 9144896, 3143010, 3997106, 3187522, 3716108 #### [facility] [address] [place] [address] Bilirubin [Mass/Vol] 0.7 mg/dL Normal 0.0-1.1 [facility] Comment on above: Performed By: #### 2 277400, 95639806, 3477080, 4502103, 0708097, 4835058, 4998294 #### [facility] [address] [place] [address] Bilirubin.direct [Mass/Vol] 0.1 mg/dL Normal 0.1-0.4 [facility] Comment on above: Performed By: #### 2 195219, 57397156, 2567322, 9897093, 0416258, 1787400, 6005731 #### [facility] [address] [place] [address] Bilirubin.indirect [Mass or moles/Vol] 0.6 mg/dL Normal 0.1-0.9 [facility] Comment on above: Performed By: #### 2 992522, 56217638, 6266049, 5434376, 4315300, 3970004, 1920822 #### [facility] [address] [place] [address] Globulin (S) [Mass/Vol] 3.1 g/dL Normal 1.4-4.0 [facility] Comment on above: Performed By: #### 2 549033, 80727451, 5227303, 2779700, 6995604, 0552609, 8562208 #### [facility] [address] [place] [address] Protein [Mass/Vol] 7.0 g/dL Normal 6.0-7.8 [facility] Comment on above: Performed By: #### 2 604465, 97075705, 0544477, 9514389, 8710978, 0669153, 2041115 #### [facility] [address] [place] [address] Lipase Levelon 01-04-2023 Lipase [Catalytic activity/Vol] 29 U/L Normal 13-58 [facility] Comment on above: Performed By: #### 2 462711, 89053088, 5388387, 8219200, 7525777, 7768000, 5677654 #### [facility] [address] [place] [address] Rapid Strep w/rfxon 01-05-20 23 S. pyogenes Ag IA.rapid Ql (Throat) Positive Abnormal Negative [facility] Comment on above: Performed By: #### 2 039702, 76762294, 3747448, 5998741, 9168620, 0396493, 0003025 #### [facility] [address] [place] [address] U BetaHcg Qualon 01-04-2023 HCG.beta subunit (U) [Moles/Vol] Positive Normal [facility] Comment on above: Performed By: #### 2 349563, 51612542, 1028000, 1370846, 9160703, 4872250, 6491333 #### [facility] [address] [place] [address] UA With Cult Reflexon 2022 Bacteria LM Ql (Urine sed) 1+ /HPF Abnormal Trace [facility] Comment on above: Performed By: #### 2 156258, 96651620, 7171908, 3724913, 3201909, 1287739, 7029389 #### [facility] [address] [place] [address] Bilirubin Ql (U) Negative Normal Negative [facility] Comment on above: Performed By: #### 2 548679, 59841484, 1051999, 2370041, 6812394, 0768454, 1178787 #### [facility] [address] [place] [address] Clarity (U) CLEAR Normal Clear [facility] Comment on above: Performed By: #### 2 049822, 72164500, 3519877, 3078619, 4607311, 7183453, 3848644 #### [facility] [address] [place] [address] Color (U) YELLOW Normal Yellow [facility] Comment on above: Performed By: #### 2 699019, 16494634, 2344901, 4560904, 3855833, 9543077, 7695856 #### [facility] [address] [place] [address] Epithelial cells.squamous LM.HPF (Urine sed) [#/Area] 3-4 Normal 0-2 [facility] Comment on above: Performed By: #### 2 000372, 81796197, 3288779, 4532373, 1487824, 5786529, 3655941 #### [facility] [address] [place] [address] Glucose Test strip (U) [Mass/Vol] Negative Normal Negative [facility] Comment on above: Performed By: #### 2 355642, 01486516, 9428547, 7383369, 1682483, 2562695, 8509377 #### [facility] [address] [place] [address] Hemoglobin Ql (U) Negative Normal Negative [facility] Comment on above: Performed By: #### 2 469818, 38267610, 9101522, 0726358, 2869985, 7244156, 2324993 #### [facility] [address] [place] [address] Ketones (U) [Mass/Vol] TRACE Abnormal Negative [facility] Comment on above: Performed By: #### 2 164077, 21751836, 5956469, 2284111, 6868469, 3918143, 9136010 #### [facility] [address] [place] [address] [place].plasma/Wetherington.R BC (Bld) [Mass ratio] 0-3 Normal 0-3 [facility] Comment on above: Performed By: #### 2 746787, 17335936, 9193569, 7431149, 3503231, 4308769, 0865371 #### [facility] [address] [place] [address] Nitrite Ql (U) Negative Normal Negative [facility] Comment on above: Performed By: #### 2 526831, 90817162, 9372363, 3969567, 0943738, 9703444, 4073041 #### [facility] [address] [place] [address] pH (U) 6.5 [pH] Invalid Interpretation Code 5.0-9.0 [facility] Comment on above: Performed By: #### 2 409000, 92998090, 3978388, 9031625, 2691887, 4998203, 4239436 #### [facility] [address] [place] [address] Protein (U) [Mass/Vol] Negative Normal Negative [facility] Comment on above: Performed By: #### 2 681488, 49010400, 3043866, 5747993, 0402330, 4209081, 8473857 #### [facility] [address] [place] [address] Specific gravity (U) [Rel density] 1.020 Invalid Interpretation Code 1.005-1.030 [facility] Comment on above: Performed By: #### 2 339864, 93710524, 4161941, 9597262, 5315423, 6466482, 8750526 #### [facility] [address] [place] [address] Type of Urine collection method Clean Catch Normal [facility] Comment on above: Performed By: #### 2 633905, 78555011, 4933364, 6501864, 9151090, 0751073, 6025910 #### [facility] [address] [place] [address] Urobilinogen Qn (U) 1.0 {Georgina'U}/dL Normal 0.0-1.0 [facility] Comment on above: Performed By: #### 2 643551, 00622249, 0569637, 1744528, 3260343, 9300544, 2288810 #### [facility] [address] [place] [address] WBC Auto Ql (U) 1+ Abnormal Negative [facility] Comment on above: Performed By: #### 2 445935, 99720430, 2069615, 0448974, 0117228, 1107732, 6884510 #### [facility] [address] [place] [address] WBC LM.HPF (Urine sed) [#/Area] 6-15 Abnormal 0-5 [facility] Comment on above: Performed By: #### 2 880805, 07202516, 7493158, 0915978, 5393172, 5556277, 8969134 #### [facility] [address] [place] [address] eGFRon 01-04-2023 GFR/1.73 sq M.predicted among non-blacks MDRD (S/P/Bld) [Vol rate/Area] 108 mL/min/1.73 m2 Normal >=59 [facility] Comment on above: Order Comment: Order added by Discern Expert. Result Comment: Customer Response Representative sharan kidney disease could be indicated at eGFR's of less than 60 mL/min/1.73m2. Kidney failure is indicated at less than 15 mL/min/1.73m2. Performed By: #### 2 051845, 01908777, 7136017, 2861012, 4928028, 0558971, 5205570 #### [facility] [address] [place] [address] CHEMISTRYOrdered By: Juancho benitez on 01-03-2023 Albumin [...] 108 mL/min/1.73 m2 Normal >=59mL/min/[address] [facility] Chem S HCG.beta subunit Qn 1572 m[IU]/mL High 1 - 3 mIU/mL FT Remisol HEMATOLOGYOrdered By: SYSTEM SYSTEM on 01-03-2023 Basophils/100 WBC (Bld) 0.3 % Normal 0.0 - 2.0 % [facility] [...] (U) No growth to date Continuing incubation [facility] MICRO OTHER TESTSOrdered By: Juancho Fitch on 01-03-2023 S. pyogenes Ag IA.rapid Ql (Throat) Positive *ABN* (01/03/23 10:52 PM) Invalid Interpretation Code Negative FT [facility]ero SEROLOGYOrdered By: Juancho mullins on [...] Interpretation Code Negative [facility] UA Auto SS Wetherington.plasma/Wetherington.R BC (Bld) [Mass ratio] 0-3 /HPF Normal [...] Desc Clean Catch (01/03/23 10:52 PM) Normal [facility] UA Auto SS Urobilinogen Qn (U) 1.3431454 {Georgina'U}/dL Normal 0.0 - 1.0 EU/dL [facility] UA Auto SS WBC Auto Ql (U) 1+ *ABN* (01/03/23 10:52 PM) Invalid Interpretation Code Negative [facility] UA Auto SS WBC LM.HPF (Urine sed) [#/Area] 6-15 /HPF Invalid Interpretation Code 0-5/HPF [facility] UA Auto SS Alanine aminotransferase [En zymatic activity/volume] in Serum or PlasmaOrdered By: Jose Silverman on 10-02-2022 ALT [Catalytic activity/Vol] 13 U/L Normal 7-52 [facility] Comment on above: Performed By: #### C BC, CMP, ETOH #### [facility] [address] [place] [address] Albumin [Mass/volume] in Ser um or Plasma by Bromocresol green (BCG) dye binding methoOrdered By: Jose Silverman on 10-02-2022 Albumin BCG dye [Mass/Vol] 5.0 g/dL 3.5-5.7 [facility] Alkaline phosphatase [Enzyma tic activity/volume] in Serum or PlasmaOrdered By: Jose Silverman on 10-02-2022 ALP [Catalytic activity/Vol] 69 U/L Normal 34-104 [facility] Comment on above: Performed By: #### C BC, CMP, ETOH #### [address] Amphetamine Screen Ql (U)Ord ered By: Jose Silverman on 10-02-2022 Amphetamines Ql (U) Negative Negative [facility] Aspartate aminotransferase [ Enzymatic activity/volume] in Serum or PlasmaOrdered By: Jose Silverman on 10-02-2022 AST [Catalytic activity/Vol] 21 U/L Normal 13-39 [facility] Comment on above: Performed By: #### C BC, CMP, ETOH #### [address] Automated basophil %Ordered By: Jose Silverman on 10-02-2022 Basophils/100 WBC (Bld) 0.5 % Normal . [facility] Comment on above: Performed By: #### C BC, CMP, ETOH #### [address] Automated basophil countOrde red By: Jose Silverman on 10-02-2022 Basophils (Bld) [#/Vol] 0.1 10*3/uL Normal 0.0-0.2 [facility] Comment on above: Result Comment: PERF ORMED BY: [place] [address] PATHOLOGIST [employer] ASHELY CAREY M.D. Performed By: #### C BC, CMP, ETOH #### [address] Automated blood monocyte cou ntOrdered By: Jose Silverman on 10-02-2022 Monocytes (Bld) [#/Vol] 0.7 10*3/uL Normal 0.0-0.8 [facility] Comment on above: Performed By: #### C BC, CMP, ETOH #### [address] Automated eosinophil %Ordere d By: Jose Silevrman on 10-02-2022 Eosinophils/100 WBC (Bld) 2.0 % Normal . [facility] Comment on above: Performed By: #### C BC, CMP, ETOH #### [address] Automated eosinophil countOr dered By: Jose Silverman on 10-02-2022 Eosinophils (Bld) [#/Vol] 0.3 10*3/uL Normal 0.0-0.45 [facility] Comment on above: Performed By: #### C BC, CMP, ETOH #### [facility] [address] [place] [address] Automated erythrocytes count in urine sediment (number/area)Ordered By: Jose Silverman on 10-02-2022 RBC Auto (Urine sed) [#/Area] 0-1 [HPF] 0-4 [facility] Automated leukocytes count i n urine sediment (number/area)Ordered By: Jose Silverman on 10-02-2022 WBC Auto (Urine sed) [#/Area] 10-19 [HPF] 0-4 [facility] Automated monocyte %Ordered By: Jose Silverman on 10-02-2022 Monocytes/100 WBC (Bld) 5.7 % Normal . [facility] Comment on above: Performed By: #### C BC, CMP, ETOH #### [facility] [address] [place] [address] Automated neutrophil %Ordere d By: Jose Silverman on 10-02-2022 Neutrophils/100 WBC (Bld) 68.7 % Normal . [facility] Comment on above: Performed By: #### C BC, CMP, ETOH #### [address] Barbiturates [Presence] in U rine by Screen methodOrdered By: Jose Silverman on 10-02-2022 Barbiturates Screen Ql (U) Negative Negative [facility] Benzodiazepines Screen Ql (U )Ordered By: Jose Silverman on 10-02-2022 Benzodiazepines Ql (U) Negative Negative [facility] Benzoylecgonine [Presence] i n Urine by Screen methodOrdered By: Jose Silverman on 10-02-2022 Benzoylecgonine Screen Ql (U) Negative Negative [facility] Bilirubin Test strip Ql (U)O rdered By: Jose Silverman on 10-02-2022 Bilirubin Ql (U) Negative Negative [facility] Bilirubin.total [Mass/volume ] in Serum or PlasmaOrdered By: Jose Silverman on 10-02-2022 Bilirubin [Mass/Vol] 0.3 mg/dL Normal 0.3-1.0 [facility] Comment on above: Performed By: #### C BC, CMP, ETOH #### [facility] [address] [place] [address] [place] Calcium [Mass/volume] in Ser um or PlasmaOrdered By: Jose Silverman on 10-02-2022 Calcium [Mass/Vol] 9.6 mg/dL Normal 8.6-10.3 [facility] Comment on above: Performed By: #### C BC, CMP, ETOH #### [facility] [address] [place] [address] [place] Cannabinoids [Presence] in U rine by Screen methodOrdered By: Jose Silverman on 10-02-2022 Cannabinoids Screen Ql (U) Negative Negative [facility] Comment on above: These are unconfirme d results and should not be used for legal purposes. Drug Cut-Off Concentration: AMPH 1000 ng/mL MIAH 200 ng/mL AYAN 200 ng/mL COCM 300 ng/mL OP 300 ng/mL PCP 25 ng/mL THC 20 ng/mL Carbon dioxide, total [Moles /volume] in Serum or PlasmaOrdered By: Jose Silverman on 10-02-2022 CO2 [Moles/Vol] 27.2 mmol/L Normal 21.0-31.0 [facility] Comment on above: Performed By: #### C BC, CMP, ETOH #### [facility] [address] [place] [address] [place] Chloride [Moles/volume] in S brian or PlasmaOrdered By: Jose Silverman on 10-02-2022 Chloride [Moles/Vol] 101 mmol/L Normal 98-107 [facility] Comment on above: Performed By: #### C BC, CMP, ETOH #### [facility] [address] [place] [address] [place] Color Auto (U)Ordered By: Loli Silverman on 10-02-2022 Color (U) Yellow Yellow [facility] Complete Blood Count Auto Di ffon 10-02-2022 Mean Corpuscular HGB Conc 32.0 g/dL Normal 32.0-35.0 [facility] Comment on above: Performed By: #### C BC, CMP, ETOH #### [facility] [address] [place] [address] [place] Monocytes/100 WBC (Bld) 17.72 % Normal 0.00-20.00 [facility] Comment on above: Performed By: #### C BC, CMP, ETOH #### [facility] [address] NRBC% 0.0 /100{WBC} Normal 0-0.5 [facility] Comment on above: Performed By: #### C BC, CMP, ETOH #### [facility] [address] Comprehensive Metabolic Pane tung 10-02-2022 Albumin [Mass/Vol] 5.0 g/dL Normal 3.5-5.7 [facility] Comment on above: Performed By: #### C BC, CMP, ETOH #### [facility] [address] [place] [address] [place] Creatinine Clr Calc Pharmacy 107.48 Normal [facility] Comment on above: Result Comment: PERF ORMED BY: [place] [address] PATHOLOGIST [employer] ASHELY CAREY M.D. Performed By: #### C BC, CMP, ETOH #### [facility] [address] [place] [address] [place] GFR/1.73 sq M.predicted MDRD (S/P/Bld) [Vol rate/Area] mL/min/{1.73_m2} [facility] Comment on above: Performed By: #### C BC, CMP, ETOH #### [facility] [address] [place] [address] [place] Creatinine [Mass/volume] in Serum or PlasmaOrdered By: Jose Silverman on 10-02-2022 Creatinine [Mass/Vol] 0.89 mg/dL Normal 0.60-1.20 [facility] Comment on above: Performed By: #### C BC, CMP, ETOH #### [facility] [address] [place] [address] [place] Dipstick and Microscopicon 0 10-02-2022 Appearance (U) Clear Normal Clear [facility] Comment on above: Order Comment: Name Collection Type:: Clean-Voided Midstream Performed By: #### U RDS, ADDONUAPLUS, CUU, UHCG #### [facility] [address] [place] [address] [place] Bacteria,Urine 2+ High None Seen [facility] Comment on above: Order Comment: Name Collection Type:: Clean-Voided Midstream Performed By: #### U RDS, ADDONUAPLUS, CUU, UHCG #### [facility] [address] [place] [address] [place] Bilirubin,Urine Negative Normal Negative [facility] Comment on above: Order Comment: Name Collection Type:: Clean-Voided Midstream Performed By: #### U RDS, ADDONUAPLUS, CUU, UHCG #### [facility] [address] [place] [address] [place] Color (U) Yellow Normal Yellow [facility] Comment on above: Order Comment: Name Collection Type:: Clean-Voided Midstream Performed By: #### U RDS, ADDONUAPLUS, CUU, UHCG #### [facility] [address] [place] [address] [place] Glucose Ql (U) Normal Normal Normal [facility] Comment on above: Order Comment: Name Collection Type:: Clean-Voided Midstream Performed By: #### U RDS, ADDONUAPLUS, CUU, UHCG #### [facility] [address] [place] [address] [place] Hyaline Casts,Urine 0-8 Normal 0-8 [facility] Comment on above: Order Comment: Name Collection Type:: Clean-Voided Midstream Performed By: #### U RDS, ADDONUAPLUS, CUU, UHCG #### [facility] [address] [place] [address] [place] Ketones Ql (U) Negative Normal Negative [facility] Comment on above: Order Comment: Name Collection Type:: Clean-Voided Midstream Performed By: #### U RDS, ADDONUAPLUS, CUU, UHCG #### [facility] [address] [place] [address] Leukocyte esterase Test strip Ql (U) 3+ High Negative [facility] Comment on above: Order Comment: Name Collection Type:: Clean-Voided Midstream Performed By: #### U RDS, ADDONUAPLUS, CUU, UHCG #### [facility] [address] [place] [address] Nitrite,Urine Negative Normal Negative [facility] Comment on above: Order Comment: Name Collection Type:: Clean-Voided Midstream Performed By: #### U RDS, ADDONUAPLUS, CUU, UHCG #### [address] Occult Blood,Urine Negative Normal Negative [facility] Comment on above: Order Comment: Name Collection Type:: Clean-Voided Midstream Performed By: #### U RDS, ADDONUAPLUS, CUU, UHCG #### [address] pH (U) 6.5 [pH] Normal 5.0-9.0 [facility] Comment on above: Order Comment: Name Collection Type:: Clean-Voided Midstream Performed By: #### U RDS, ADDONUAPLUS, CUU, UHCG #### [address] Protein,Urine Negative Normal Negative [facility] Comment on above: Order Comment: Name Collection Type:: Clean-Voided Midstream Performed By: #### U RDS, ADDONUAPLUS, CUU, UHCG #### [facility] [address] [place] [address] [place] RBC LM.HPF (Urine sed) [#/Area] 0 /[HPF] Normal 0-4 [facility] Comment on above: Order Comment: Name Collection Type:: Clean-Voided Midstream Performed By: #### U RDS, ADDONUAPLUS, CUU, UHCG #### [address] Specificy Dorsey,Urine 1.021 Normal 1.001-1.030 [facility] Comment on above: Order Comment: Name Collection Type:: Clean-Voided Midstream Performed By: #### U RDS, ADDONUAPLUS, CUU, UHCG #### [facility] [address] [place] [address] [place] Squamous Epithelial Cell,Urine 10-19 High 0-2 [facility] Comment on above: Order Comment: Name Collection Type:: Clean-Voided Midstream Performed By: #### U RDS, ADDONUAPLUS, CUU, UHCG #### [facility] [address] Urobilinogen,Urine Normal Normal Normal [facility] Comment on above: Order Comment: Name Collection Type:: Clean-Voided Midstream Performed By: #### U RDS, ADDONUAPLUS, CUU, UHCG #### [facility] [address] [place] [address] [place] WBC,Urine 10-19 High 0-4 [facility] Comment on above: Order Comment: Name Collection Type:: Clean-Voided Midstream Performed By: #### U RDS, ADDONUAPLUS, CUU, UHCG #### [facility] [address] [place] [address] [place] Drug Screen,Urineon 10-03-19 23 Amphetamine Screen,Urine Negative Normal Negative [facility] Comment on above: Performed By: #### U RDS, ADDONUAPLUS, CUU, UHCG #### [facility] [address] [place] [address] [place] Barbiturate Screen,Urine Negative Normal Negative [facility] Comment on above: Performed By: #### U RDS, ADDONUAPLUS, CUU, UHCG #### [facility] [address] [place] [address] [place] Benzodiazepines Screen,Urine Negative Normal Negative [facility] Comment on above: Performed By: #### U RDS, ADDONUAPLUS, CUU, UHCG #### [facility] [address] [place] [address] [place] Cannabinoid Screen,Urine Negative Normal Negative [facility] Comment on above: Result Comment: Thes e are unconfirmed results and should not be used for legal purposes. Drug Cut-Off Concentration: AMPH 1000 ng/mL MIAH 200 ng/mL AYAN 200 ng/mL COCM 300 ng/mL OP 300 ng/mL PCP 25 ng/mL THC 20 ng/mL PERFORMED BY: [place] [address] PATHOLOGIST [employer] ASHELY CAREY M.D. Performed By: #### U RDS, BARBARAONUATODD, CUU, C #### [address] Cocaine Screen,Urine Negative Normal Negative [facility] Comment on above: Performed By: #### U RDS, ADDONUAPLUS, CUU, CG #### [address] Opiate Screen,Urine Negative Normal Negative [facility] Comment on above: Performed By: #### U RDS, BARBARAONUATODD, CUU, CG #### [address] Phencyclidine Screen,Urine Negative Normal Negative [facility] Comment on above: Performed By: #### U RDS, ADDONUAPLUS, CUU, [facility] #### [address] Erythrocyte distribution wid th [Ratio] by Automated countOrdered By: Jose Silverman on 10-02-2022 Erythrocyte distribution width (RBC) [Ratio] 15.8 % High 11.9-15.3 [facility] Comment on above: Performed By: #### C BC, CMP, ETOH #### [address] Erythrocytes [#/volume] in B lood by Automated countOrdered By: Jose Silverman on 10-02-2022 RBC (Bld) [#/Vol] 5.31 10*6/uL High 3.60-5.00 [facility] Comment on above: Performed By: #### C BC, CMP, ETOH #### [address] Ethanol [Mass/volume] in Ser um or PlasmaOrdered By: Jose Silverman on 10-02-2022 Ethanol [Mass/Vol] mg/dL Normal [facility] Comment on above: Performed By: #### C BC, CMP, ETOH #### [facility] [address] [place] [address] [place] Ethanol [Mass/Vol] TNP [facility] Comment on above: Test not performed Ethyl Alcohol Profileon 09-08 Percent Ethanol Not performed Normal [facility] Comment on above: Result Comment: PERF ORMED BY: [facility] [address] [place] [address] PATHOLOGIST [employer] ASHELY CAREY M.D. Performed By: #### C BC, CMP, ETOH #### [facility] [address] [id number] [facility] [[email or web address]] Glucose [Mass/volume] in Ser um or PlasmaOrdered By: Jose Silverman on 10-02-2022 Glucose [Mass/Vol] 98 mg/dL Normal 70-100 [facility] Comment on above: ADA recommended refe rence rangeRandom Glucose Reference Range is dependent on time and content of last meal. Glucose of more than 200 mg/dL in a nonstressed, ambulatory subject supports the diagnosis of Diabetes Mellitus. Result Comment: [place] om Glucose Reference Range is dependent on time and content of last meal. Glucose of more than 200 mg/dL in a nonstressed, ambulatory subject supports the diagnosis of Diabetes Mellitus. ADA recommended reference range Performed By: #### C BC, CMP, ETOH #### [facility] [address] [id number] [facility] [[email or web address]] HCG ( test) IA.rapi d Ql (U)Ordered By: Jose Silverman on 10-02-2022 HCG ( test) Ql (U) Negative [facility] HCG,Urineon 10-02-2022 Beta HCG ( test) Ql (U) Negative Normal [facility] Comment on above: Order Comment: Name Collection Type:: Clean-Voided Midstream Result Comment: PERF ORMED BY: [facility] [address] [place] [address] PATHOLOGIST [employer] ASHELY CAREY M.D. Performed By: #### U RDS, ADDONUAPLUS, CUU, CG #### [address] Hematocrit [Volume Fraction] of Blood by Automated countOrdered By: Jose Silverman on 10-02-2022 Hematocrit (Bld) [Volume fraction] 41.7 % Normal 34.0-46.4 [facility] Comment on above: Performed By: #### C BC, CMP, ETOH #### [address] Hemoglobin [Mass/volume] in BloodOrdered By: Jose Silverman on 10-02-2022 Hemoglobin (Bld) [Mass/Vol] 13.3 g/dL Normal 11.8-15.4 [facility] Comment on above: Performed By: #### C BC, CMP, ETOH #### [address] Ketones Auto test strip (U) [Mass/Vol]Ordered By: Jose Silverman on 10-02-2022 Ketones (U) [Mass/Vol] Negative Negative [facility] - UrinalysisOrder ed By: Jose Silverman on 10-02-2022 Hyaline casts LM Ql (Urine sed) 0-8 [LPF] 0-8 [facility] Leukocytes [#/volume] correc ruby for nucleated erythrocytes in Blood by Automated counOrdered By: Jose Silverman on 10-02-2022 WBC corrected for nucl RBC Auto (Bld) [#/Vol] 12.9 10*3/uL 3.8-11.6 [facility] Leukocytes [#/volume] in Blo od by Automated countOrdered By: Jose Silverman on 10-02-2022 WBC (Bld) [#/Vol] 12.9 10*3/uL High 3.8-11.6 [facility] Comment on above: Performed By: #### C BC, CMP, ETOH #### [address] Lymphocytes [#/volume] in Bl ood by Automated countOrdered By: Jose Silverman on 10-02-2022 Lymphocytes (Bld) [#/Vol] 3.0 10*3/uL Normal 1.00-4.8 [facility] Comment on above: Performed By: #### C BC, CMP, ETOH #### [address] Lymphocytes/100 leukocytes i n Blood by Automated countOrdered By: Jose Silverman on 10-02-2022 Lymphocytes/100 WBC (Bld) 23.1 % Normal . [facility] Comment on above: Performed By: #### C BC, CMP, ETOH #### [address] MCH [Entitic mass] by Automa ruby countOrdered By: Jose Silverman on 10-02-2022 MCH (RBC) [Entitic mass] 25.2 pg Normal 24.7-34.3 [facility] Comment on above: Performed By: #### C BC, CMP, ETOH #### [address] MCHC Auto (RBC) [Mass/Vol]Or dered By: Jose Silverman on 10-02-2022 MCHC (RBC) [Mass/Vol] 32.0 g/dL 32.0-35.0 [facility] MCV [Entitic volume] by Auto mated countOrdered By: Jose Silverman on 10-02-2022 MCV (RBC) [Entitic vol] 78.5 fL Low 80-100 [facility] Comment on above: Performed By: #### C BC, CMP, ETOH #### [address] Monocyte distribution width [Entitic volume] in Blood by AutomatedOrdered By: Jose Silverman on 10-02-2022 Monocyte distribution width Auto (Bld) [Entitic vol] 17.72 % 0.00-20.00 [facility] Neutrophils [#/volume] in Bl ood by Automated countOrdered By: Jose Silverman on 10-02-2022 Neutrophils (Bld) [#/Vol] 8.9 10*3/uL High 1.8-7.7 [facility] Comment on above: Performed By: #### C BC, CMP, ETOH #### [facility] [address] Nitrite Test strip Ql (U)Ord ered By: Jose Silverman on 10-02-2022 Nitrite Ql (U) Negative Negative [facility] No Panel InformationOrdered By: Jose Silverman on 10-02-2022 Estimated GFR (CKD-EPI) > 60.0 mL/Min [facility] Creatinine Clearance (Chem 107.48 [facility] Nucleated erythrocytes [Pres ence] in Blood by Automated countOrdered By: Jose Silverman on 10-02-2022 Nucleated RBC Auto Ql (Bld) 0.0 /100{WBC} 0-0.5 [facility] Opiates [Presence] in Urine by Screen methodOrdered By: Jose Silverman on 10-02-2022 Opiates Screen Ql (U) Negative Negative [facility] Phencyclidine Screen Ql (U)O rdered By: Jose Silverman on 10-02-2022 Phencyclidine Ql (U) Negative Negative [facility] Platelet mean volume [Entiti c volume] in Blood by Automated countOrdered By: Jose Silverman on 10-02-2022 Platelet mean volume (Bld) [Entitic vol] 7.7 fL Normal 6.3-10.7 [facility] Comment on above: Performed By: #### C BC, CMP, ETOH #### [facility] [address] [place] [address] Platelets [#/volume] in Bloo d by Automated countOrdered By: Jose Silverman on 10-02-2022 Platelets (Bld) [#/Vol] 342 10*3/uL Normal 150-450 [facility] Comment on above: Performed By: #### C BC, CMP, ETOH #### [facility] [address] [place] [address] [place] Potassium [Moles/volume] in Serum or PlasmaOrdered By: Jose Silverman on 10-02-2022 Potassium [Moles/Vol] 3.8 mmol/L Normal 3.5-5.1 [facility] Comment on above: Performed By: #### C BC, CMP, ETOH #### [place] [address] [place] Protein Auto test strip (U) [Mass/Vol]Ordered By: Jose Silverman on 10-02-2022 Protein (U) [Mass/Vol] Negative Negative [facility] Protein [Mass/volume] in Ser um or PlasmaOrdered By: Jose Silverman on 10-02-2022 Protein [Mass/Vol] 8.7 g/dL Normal 6.4-8.9 [facility] Comment on above: Performed By: #### C BC, CMP, ETOH #### [address] Serum globulin measurement b y calculation (mass/volume)Ordered By: Jose Silverman on 10-02-2022 Globulin (S) [Mass/Vol] 3.7 g/dL Normal [facility] Comment on above: Performed By: #### C BC, CMP, ETOH #### [address] Serum or plasma albumin/glob ulin mass ratioOrdered By: Jose Silverman on 10-02-2022 Albumin/Globulin [Mass ratio] 1.4 {ratio} Normal [facility] Comment on above: Performed By: #### C BC, CMP, ETOH #### [address] Serum or plasma anion gap de terminationOrdered By: Jose Silverman on 10-02-2022 Anion gap [Moles/Vol] 12.6 mmol/L Normal 6.0-15.0 [facility] Comment on above: Performed By: #### C BC, CMP, ETOH #### [address] Sodium [Moles/volume] in Ser um or PlasmaOrdered By: Jose Silverman on 10-02-2022 Sodium [Moles/Vol] 137 mmol/L Normal 136-145 [facility] Comment on above: Performed By: #### C BC, CMP, ETOH #### [address] Specific gravity Auto test s trip (U) [Rel density]Ordered By: Jose Silverman on 10-02-2022 Specific gravity (U) [Rel density] 1.021 1.001-1.030 [facility] Squamous epithelial cells de tection in urine sediment by light microscopyOrdered By: Jose Silverman on 10-02-2022 Epithelial cells.squamous LM Ql (Urine sed) 10-19 [HPF] 0-2 [facility] Urea nitrogen [Mass/volume] in Serum or PlasmaOrdered By: Jose Silverman on 10-02-2022 Urea nitrogen [Mass/Vol] 18 mg/dL Normal 7-25 [facility] Comment on above: Performed By: #### C BC, CMP, ETOH #### [facility] [address] [place] [address] [place] Urine Cultureon 10-02-2022 Bacteria identified Cx Nom (U) ORGANISM: Strep agalactiae - (group b) (O:STRAGA) [address] Count 50,000 PERFORMED BY: [place] [address] PATHOLOGIST [employer] ASHELY CAREY M.D. [facility] Comment on above: Performed By: #### U RDS, ADDONUAPLUS, CUU, UHCG #### [facility] [address] [place] [address] Urine bacteria detection by automated methodOrdered By: Jose Silverman on 10-02-2022 Bacteria Auto Ql (U) 2+ None Seen [facility] Urine clarity by refractomet ry automatedOrdered By: Jose Silverman on 10-02-2022 Clarity Refractometry automated (U) Clear Clear [facility] Urine glucose measurement by automated test strip (mass/volume)Ordered By: Jose Silverman on 10-02-2022 Glucose Auto test strip (U) [Mass/Vol] Normal mg/dL Normal [facility] Urine hemoglobin detection b y automated test stripOrdered By: Jose Silverman on 10-02-2022 Hemoglobin Auto test strip Ql (U) Negative Negative [facility] Urine leukocyte esterase det ection by automated test stripOrdered By: Jose Silverman on 10-02-2022 Leukocyte esterase Auto test strip Ql (U) 3+ Negative [facility] Urobilinogen Auto test strip (U) [Mass/Vol]Ordered By: Jose Silverman on 04-26-2023 Urobilinogen (U) [Mass/Vol] Normal mg/dL Normal [facility] pH Auto test strip (U)Ordere d By: Jose Silverman on 10-02-2022 pH (U) 6.5 [pH] 5.0-9.0 [facility] Quick Strepon 09-25-2022 S. pyogenes Org specific cx Ql (Throat) Negative [employer] Other Quick Strep [employer] Other CHEMISTRYOrdered By: SYSTEM SYSTEM on 09-06-2022 Anion gap [Moles/Vol] 10 mmol/L Normal 6 - 16 mEq/L [facility] Calcium [Mass/Vol] 9.2 mg/dL Normal 8.9 - 11. 1 mg/dL [facility] Chloride [Moles/Vol] 104 mmol/L Normal 101 - 1 11 mmol/L [facility] Remisol CO2 [Moles/Vol] 27 mmol/L Normal 21 - 31 mmol/L [facility] Creatinine [Mass/Vol] 0.7 mg/dL Normal 0.5 - 1.3 mg/dL [facility] GFR/1.73 sq M.predicted among blacks MDRD (S/P/Bld) [Vol rate/Area] mL/min/1.73 m2 Normal >=59mL/min/[address] [facility] Chem S GFR/1.73 sq M.predicted among non-blacks MDRD (S/P/Bld) [Vol rate/Area] mL/min/1.73 m2 Normal >=59mL/min/[address] [facility] Chem S Glucose [Mass/Vol] 82 mg/dL Normal [...] L [facility] Remisol Urea nitrogen/Creatinine [Mass ratio] 11 mg/mg [...] AM) Normal Negative [facility] UA Auto SS [place].plasma/[place].R BC (Bld) [Mass ratio] >30 /HPF Invalid Interpretation Code 0-3/HPF [facility] UA Auto SS Mucus Ql (Urine sed) 1+ (09/06/22 11:19 AM) Normal [facility] UA Auto SS Nitrite Ql (U) Negative (09/06/22 11:19 AM) Normal Negative [facility] UA Auto SS pH (U) 7.0 *NA* (09/06/22 11:19 AM) Invalid Interpretation Code 5.0 - 9.0 [facility] UA Auto SS Protein (U) [Mass/Vol] Trace *ABN* (09/06/22 11:19 AM) Invalid Interpretation Code Negative [facility] UA Auto SS Specific gravity (U) [Rel density] 1.020 *NA* (09/06/22 11:19 AM) Invalid Interpretation Code 1.005 - 1.030 [facility] UA Auto SS UA Spec Desc Clean Catch (09/06/22 11:19 AM) Normal [facility] UA Auto SS Urobilinogen Qn (U) 0.3502326 {Georgina'U}/dL Normal 0.0 - 1.0 EU/dL [facility] UA Auto SS WBC Auto Ql (U) Negative (09/06/22 11:19 AM) Normal Negative [facility] UA Auto SS WBC LM.HPF (Urine sed) [#/Area] 0-5 /HPF Normal 0-5/HPF [facility] UA Auto SS BLOOD BANKOrdered By: John Montague on 08-14-2022 ABO/Rh Interp Positive Invalid Interpretation Code [facility] BB Subsection CHEMISTRYOrdered By: SYSTEM SYSTEM on 08-14-2022 Albumin [Mass/Vol] 4.0 g/dL Normal 3.3 - 5.0 gm/dL [facility] Albumin/Globulin [Mass ratio] 1.2 {ratio} Normal [...] 0.3 mg/dL Normal 0.1 - 0.9 mg/dL [facility] Calcium [Mass/Vol] 9.0 mg/dL Normal 8.9 - 11. 1 mg/dL [facility] Chloride [Moles/Vol] 103 mmol/L Normal 101 - 1 11 mmol/L [facility] CO2 [Moles/Vol] 27 mmol/L Normal 21 - 31 mmol/L [facility] Creatinine [Mass/Vol] 0.8 mg/dL Normal 0.5 - 1.3 mg/dL [facility] GFR/1.73 sq M.predicted among blacks MDRD (S/P/Bld) [Vol rate/Area] mL/min/1.73 m2 Normal >=59mL/min/[address] [facility] Chem S GFR/1.73 sq M.predicted among non-blacks MDRD (S/P/Bld) [Vol rate/Area] mL/min/1.73 m2 Normal >=59mL/min/[address] [facility] Chem S Globulin (S) [Mass/Vol] 3.2 g/dL [...] ratio] 18 mg/mg Normal 10 - 20 [facility] Remisol CHEMISTRYOrdered By: Kenneth stark on 08-14-2022 HCG.beta subunit Qn 267 m[IU]/mL High 1 - 3 mIU/mL F [facility] HEMATOLOGYOrdered By: SYSTEM SYSTEM on 08-14-2022 Basophils/100 WBC (Bld) 0.6 % Normal 0.0 - 2.0 % [facility] [...] PM) Normal Negative [facility] UA Auto SS [place].plasma/[place].R BC (Bld) [Mass ratio] 0-3 /HPF Normal [...] PM) Invalid Interpretation Code 1.005 - 1.030 [facility] UA Auto SS UA Spec Desc Clean Catch (08/14/22 7:29 PM) Normal [facility] UA Auto SS Urobilinogen Qn (U) 0.9635773 {Georgina'U}/dL Normal 0.0 - 1.0 EU/dL [facility] UA Auto SS WBC Auto Ql (U) Negative (08/14/22 7:29 PM) Normal Negative [facility] UA Auto SS WBC LM.HPF (Urine sed) [#/Area] 0-5 /HPF Normal 0-5/HPF [facility] UA Auto SS CHLAMYDIA/GONOCOCCUS ALFREDO (SW AB/URINE/PAPon 07-15-2022 Chlamydia trachomatis, ALFREDO Negative Normal Negative [facility] Comment on above: Performed By: #### C T/NGNA #### [facility] [address] [address] [address] Cyril Hendricks Neisseria gonorrhoeae, ALFREDO Negative Normal Negative [facility] Comment on above: Performed By: #### C T/NGNA #### [facility] [address] [address] [address] Cyril Hendricks VAGINITIS/VAGINOSIS DNA PROB Maurice 07-13-2022 Krista species Negative Normal Negative [facility] Comment on above: Performed By: #### U MICRO, UACSIND #### [facility] [address] [address] [address] Cyril Hendricks Gardnerella vaginalis Positive Abnormal Negative [facility] Comment on above: Performed By: #### U MICRO, UACSIND #### [facility] [address] [address] [address] Cyril Hendricks Trichomonas vaginalis Negative Normal Negative [facility] Comment on above: Performed By: #### U MICRO, UACSIND #### [facility] [address] [address] [address] Cyril Hendricks COVID/FLU RT-PCRon 3 SARS-CoV-2 (COVID-19) RNA ALFREDO+probe Ql (Unsp spec) Negative [employer] Other COVID/FLU RT-PCR Negative [facility] [employer] Other Quick Strepon 06-24-2022 S. pyogenes Org specific cx Ql (Throat) Negative [facility] [employer] Other Quick Strep [facility] [employer] Other CBC AUTO DIFFon 01-08-2022 BASO # 0.1 103/ul Normal 0.0-0.1 [facility] Comment on above: Performed By: #### C BC #### [facility] [address] [place] [address] Dr. Cyril Hendricks Basophils/100 WBC (Bld) 0.4 % Normal 0.2-2.0 [facility] Comment on above: Performed By: #### C BC #### [facility] [address] [place] [address] Dr. Cyril Hendricks EO # 0.1 103/ul Normal 0.0-0.7 [facility] Comment on above: Performed By: #### C BC #### [facility] [address] [place] [address] Dr. Cyril Hendricks Eosinophils/100 WBC (Bld) 0.9 % Normal 0.9-7.0 [facility] Comment on above: Performed By: #### C BC #### [facility] [address] [address] [address] Cyril Hendricks Erythrocyte distribution width (RBC) [Ratio] 12.3 % Normal 11.0-15.0 [facility] Comment on above: Performed By: #### C BC #### [facility] [address] [place] [address] Dr. Cyril Hendricks Hematocrit (Bld) [Volume fraction] 30.0 % Critically low 36.0-48.0 [facility] Comment on above: Performed By: #### C BC #### [facility] [address] [place] [address] Dr. Cyril Hendricks Hemoglobin (Bld) [Mass/Vol] 10.2 g/dL Critically low 12.0-16.0 [facility] Comment on above: Performed By: #### C BC #### [facility] [address] [address] [address] Cyril Hendricks IG # 0.05 10e3/ul Critically high 0.00-0.03 [facility] Comment on above: Performed By: #### C BC #### [facility] [address] [address] [address] Cyril Hendricks IG % 0.4 % Normal 0.0-0.5 [facility] Comment on above: Performed By: #### C BC #### [facility] [address] [place] [address] Dr. Cyril Hendricks LYMPH # 2.8 103/ul Normal 1.2-3.8 [facility] Comment on above: Performed By: #### C BC #### [facility] [address] [place] [address] Dr. Cyril Hendricks Lymphocytes/100 WBC (Bld) 19.7 % Critically low 20.5-60.0 [facility] Comment on above: Performed By: #### C BC #### [facility] [address] [place] [address] Dr. Cyril Hendricks MANUAL DIFF REQ NO Normal [facility] Comment on above: Performed By: #### C BC #### [facility] [address] [place] [address] Dr. Cyril Hendricks MCH (RBC) [Entitic mass] 30.6 pg Normal 26.7-34.0 [facility] Comment on above: Performed By: #### C BC #### [facility] [address] [place] [address] Dr. Cyril Hendricks MCHC (RBC) [Mass/Vol] 34.0 g/dL Normal 29.9-35.2 [facility] Comment on above: Performed By: #### C BC #### [facility] [address] [place] [address] Dr. Cyril Hendricks MCV (RBC) [Entitic vol] 90.1 fL Normal 81.0-99.0 [facility] Comment on above: Performed By: #### C BC #### [facility] [address] [address] [address] Cyril Hendricks MONO # 0.8 103/ul Normal 0.3-0.8 [facility] Comment on above: Performed By: #### C BC #### [facility] [address] [address] [address] Cyril Hendricks Monocytes/100 WBC (Bld) 5.9 % Normal 1.7-12.0 [facility] Comment on above: Performed By: #### C BC #### [facility] [address] [place] [address] Dr. Cyril Hendricks NEUT # 10.3 103/ul Critically high 1.4-6.[address] [facility] Comment on above: Performed By: #### C BC #### [facility] [address] [place] [address] Dr. Cyril Hendricks Neutrophils/100 WBC (Bld) 72.7 % Normal 43.0-75.0 [facility] Comment on above: Performed By: #### C BC #### [facility] [address] [place] [address] Dr. Cyril Hendricks Platelet mean volume (Bld) [Entitic vol] 9.8 fL Normal 9.5-13.5 [facility] Comment on above: Performed By: #### C BC #### [facility] [address] [place] [address] Dr. Cyril Hendricks PLT 207 103/ul Normal 150-450 [facility] Comment on above: Performed By: #### C BC #### [facility] [address] [place] [address] Dr. Cyril Hendricks RBC 3.33 106/ul Critically low 4.20-5.40 [facility] Comment on above: Performed By: #### C BC #### [facility] [address] [place] [address] Dr. Cyril Hendricks WBC 14.2 103/ul Critically high 4.0-11.0 [facility] Comment on above: Performed By: #### C BC #### [facility] [address] [place] [address] Dr. Cyril Hendricks CBC AUTO DIFFon 01-07-2022 BASO # 0.1 103/ul Normal 0.0-0.1 [facility] Comment on above: Performed By: #### U MICRO, UACSIND #### [facility] [address] [place] [address] Dr. Cyril Hendricks Basophils/100 WBC (Bld) 0.5 % Normal 0.2-2.0 [facility] Comment on above: Performed By: #### U MICRO, UACSIND #### [facility] [address] [place] [address] Dr. Cyril Hendricks EO # 0.1 103/ul Normal 0.0-0.7 [facility] Comment on above: Performed By: #### U MICRO, UACSIND #### [facility] [facility] [address] [place] [address] Dr. Cyril Hendricks Eosinophils/100 WBC (Bld) 0.9 % Normal 0.9-7.0 [facility] Comment on above: Performed By: #### U MICRO, UACSIND #### [facility] [address] [place] [address] Dr. Cyril Hendricks Erythrocyte distribution width (RBC) [Ratio] 12.4 % Normal 11.0-15.0 [facility] Comment on above: Performed By: #### U MICRO, UACSIND #### [facility] [address] [place] [address] Dr. Cyril Hendricks Hematocrit (Bld) [Volume fraction] 34.3 % Critically low 36.0-48.0 [facility] Comment on above: Performed By: #### U MICRO, UACSIND #### [facility] [address] [place] [address] Dr. Cyril Hendricks Hemoglobin (Bld) [Mass/Vol] 11.6 g/dL Critically low 12.0-16.0 [facility] Comment on above: Performed By: #### U MICRO, UACSIND #### [facility] [address] [place] [address] Dr. Cyril Hendricks IG # 0.06 10e3/ul Critically high 0.00-0.03 [facility] Comment on above: Performed By: #### U MICRO, UACSIND #### [facility] [address] [place] [address] Dr. Cyril Hendricks IG % 0.4 % Normal 0.0-0.5 [facility] Comment on above: Performed By: #### U MICRO, UACSIND #### [facility] [address] [place] [address] Dr. Cyril Hendricks LYMPH # 3.1 103/ul Normal 1.2-3.8 [facility] Comment on above: Performed By: #### U MICRO, UACSIND #### [facility] [address] [place] [address] Dr. Cyril Hendricks Lymphocytes/100 WBC (Bld) 20.4 % Critically low 20.5-60.0 [facility] Comment on above: Performed By: #### U MICRO, UACSIND #### [facility] [address] [place] [address] Dr. Cyril Hendricks MANUAL DIFF REQ NO Normal [facility] Comment on above: Performed By: #### U MICRO, UACSIND #### [facility] [address] [place] [address] Dr. Cyril Hendricks MCH (RBC) [Entitic mass] 30.6 pg Normal 26.7-34.0 [facility] Comment on above: Performed By: #### U MICRO, UACSIND #### [facility] [address] [place] [address] Dr. Cyril Hendricks MCHC (RBC) [Mass/Vol] 33.8 g/dL Normal 29.9-35.2 [facility] Comment on above: Performed By: #### U MICRO, UACSIND #### [facility] [address] [place] [address] Dr. Cyril Hendricks MCV (RBC) [Entitic vol] 90.5 fL Normal 81.0-99.0 [facility] Comment on above: Performed By: #### U MICRO, UACSIND #### [facility] [address] [address] [address] Cyril Hendricks MONO # 0.9 103/ul Critically high 0.3-0.8 [facility] Comment on above: Performed By: #### U MICRO, UACSIND #### [facility] [address] [place] [address] Dr. Cyril Hendricks Monocytes/100 WBC (Bld) 6.2 % Normal 1.7-12.0 [facility] Comment on above: Performed By: #### U MICRO, UACSIND #### [facility] [address] [place] [address] Dr. Cyril Hendricks NEUT # 10.9 103/ul Critically high 1.4-6.[address] [facility] Comment on above: Performed By: #### U MICRO, UACSIND #### [facility] [address] [place] [address] Dr. Cyril Hendricks Neutrophils/100 WBC (Bld) 71.6 % Normal 43.0-75.0 [facility] Comment on above: Performed By: #### U MICRO, UACSIND #### [facility] [address] [place] [address] Dr. Cyril Hendricks Platelet mean volume (Bld) [Entitic vol] 11.1 fL Normal 9.5-13.5 [facility] Comment on above: Performed By: #### U MICRO, UACSIND #### [facility] [address] [place] [address] Dr. Cyril Hendricks PLT 240 103/ul Normal 150-450 [facility] Comment on above: Performed By: #### U MICRO, UACSIND #### [facility] [address] [place] [address] Dr. Cyril Hendricks RBC 3.79 106/ul Critically low 4.20-5.40 [facility] Comment on above: Performed By: #### U MICRO, UACSIND #### [facility] [address] [place] [address] Dr. Cyril Hendricks WBC 15.3 103/ul Critically high 4.0-11.0 [facility] Comment on above: Performed By: #### U MICRO, UACSIND #### [facility] [address] [address] [address] Cyril Hendricks Covid-19 PCR ([facility])on SARS-CoV-2 (COVID-19) RNA ALFREDO+probe Ql (Unsp spec) Not detected Normal NOT DETECTED [facility] Comment on above: Result Comment: When diagnostic [...] for this test is supported by the [employer] and Human Service's declaration that [...] used). Performed By: #### H CVPCRR #### [facility] [address] [place] [address] Dr. Cyril Hendricks DRUG SCREEN RAPID (URINE)on 01-07-2022 AMP Negative Normal NEGATIVE [facility] Comment on above: Performed By: #### U MICRO, UACSIND #### [facility] [address] [address] [address] Cyril Hendricks BAR Negative Normal NEGATIVE [facility] Comment on above: Performed By: #### U MICRO, UACSIND #### [facility] [address] [address] [address] Cyril Hendricks BUP Negative Normal NEGATIVE [facility] Comment on above: Performed By: #### U MICRO, UACSIND #### [facility] [address] [address] [address] Cyril Hendricks BZO Negative Normal NEGATIVE [facility] Comment on above: Performed By: #### U MICRO, UACSIND #### [facility] [address] [address] [address] Cyril Hendricks DARIN Negative Normal NEGATIVE [facility] Comment on above: Performed By: #### U MICRO, UACSIND #### [facility] [address] [address] [address] Cyril Hendricks CUT-OFFS SEE BELOW Normal [facility] Comment on above: Result Comment: AMP (Amphetamine): [...] Performed By: #### U MICRO, UACSIND #### [facility] [address] [place] [address] Dr. Cyril Hendricks DRUG CUT HEADER DRUG CLASS TEST SYSTEM CUT-OFF CONCENTRATIONS ARE FOLLOWS: Normal [facility] Comment on above: Performed By: #### U MICRO, UACSIND #### [facility] [address] [address] [address] Cyril Hendricks mAMP Negative Normal NEGATIVE [facility] Comment on above: Performed By: #### U MICRO, UACSIND #### [facility] [address] [address] [address] Cyril Hendricks MTD Negative Normal NEGATIVE [facility] Comment on above: Performed By: #### U MICRO, UACSIND #### [facility] [address] [address] [address] Cyril Hendricks OPI Negative Normal NEGATIVE [facility] Comment on above: Performed By: #### U MICRO, UACSIND #### [facility] [address] [address] [address] Cyril Hendricks OXY Negative Normal NEGATIVE [facility] Comment on above: Performed By: #### U MICRO, UACSIND #### [facility] [address] [place] [address] Dr. Cyril Hendricks PCP Negative Normal NEGATIVE [facility] Comment on above: Performed By: #### U MICRO, UACSIND #### [facility] [address] [place] [address] Dr. Cyril Hendricks PPX Negative Normal NEGATIVE [facility] Comment on above: Performed By: #### U MICRO, UACSIND #### [facility] [address] [place] [address] Dr. Cyril Hendricks TCA Negative Normal NEGATIVE [facility] Comment on above: Performed By: #### U MICRO, UACSIND #### [facility] [address] [place] [address] Dr. Cyril Hendricks THC Negative Normal NEGATIVE [facility] Comment on above: Performed By: #### U MICRO, UACSIND #### [facility] [address] [place] [address] Dr. Cyril Hendricks TYPE AND SCREENon 01-07-2022 TYPE AND SCREEN Negative Normal [facility] Comment on above: Performed By: #### H CVPCRR #### [facility] [address] [place] [address] Dr. Cyril Hendricks CULTURE URINEon 12-29-2021 CULTURE URINE Culture Observations: NO GROWTH. Normal [facility] Comment on above: Performed By: #### U RCX #### [facility] [address] [place] [address] Dr. Cyril Hendricks UA (CLEAN/CATCH) LEAD SHIPPER/MICRO I F IND.on 12-29-2021 Bilirubin Ql (U) Negative Normal NEGATIVE [facility] Comment on above: Performed By: #### U MICRO, UACSIND #### [facility] [address] [place] [address] Dr. Cyril Hendricks Clarity (U) SL CLOUDY Abnormal CLEAR [facility] Comment on above: Performed By: #### U MICRO, UACSIND #### [facility] [address] [address] [address] Cyril Hendricks Color (U) LT. YELLOW Normal YELLOW [facility] Comment on above: Performed By: #### U MICRO, UACSIND #### [facility] [address] [address] [address] Cyril Hendricks Glucose Ql (U) Negative Normal NEGATIVE [facility] Comment on above: Performed By: #### U MICRO, UACSIND #### [facility] [address] [address] [address] Cyril Hendricks Hemoglobin Ql (U) Negative Normal NEGATIVE [facility] Comment on above: Performed By: #### U MICRO, UACSIND #### [facility] [address] [place] [address] Dr. Cyril Hendricks Ketones Ql (U) Negative Normal NEGATIVE [facility] Comment on above: Performed By: #### U MICRO, UACSIND #### [facility] [address] [place] [address] Dr. Cyril Hendricks LEUKOCYTES LARGE Abnormal NEGATIVE [facility] Comment on above: Performed By: #### U MICRO, UACSIND #### [facility] [address] [address] [address] Cyril Hendricks Nitrite Ql (U) Negative Normal NEGATIVE [facility] Comment on above: Performed By: #### U MICRO, UACSIND #### [facility] [address] [place] [address] Dr. Cyril Hendricks pH (U) 6.5 [pH] Normal 5-9 [facility] Comment on above: Performed By: #### U MICRO, UACSIND #### [facility] [address] [place] [address] Dr. Cyril Hendricks SPEC GRAVITY 1.010 Normal 1.005-<=1.02 5 [facility] Comment on above: Performed By: #### U MICRO, UACSIND #### [facility] [address] [place] [address] Dr. Cyril Hendricks UA PROTEIN Negative Normal NEGATIVE/ TRACE [facility] Comment on above: Performed By: #### U MICRO, UACSIND #### [facility] [address] [address] [address] Cyril Hendricks UR MICRO IND INDICATED Normal [facility] Comment on above: Performed By: #### U MICRO, UACSIND #### [facility] [address] [address] [address] Cyril Hendricks Urobilinogen Qn (U) 0.2 {Georgina'U}/dL Normal 0.2 - 1. 0 [facility] Comment on above: Performed By: #### U MICRO, UACSIND #### [facility] [address] [address] [address] Cyril Hendricks URINE MICROSCOPIC ONLYon BACTERIA SMALL Abnormal NONE SEEN The [facility] Comment on above: Performed By: #### U MICRO, UACSIND #### [facility] [address] [place] [address] Dr. Cyril Hendricks Bacteria identified Cx Nom (U) INDICATED Normal [facility] Comment on above: Performed By: #### U MICRO, UACSIND #### [facility] [address] [place] [address] Dr. Cyril Hendricks CAST NONE SEEN Normal NONE SEEN The [facility] Comment on above: Performed By: #### U MICRO, UACSIND #### [facility] [address] [place] [address] Dr. Cyril Hendricks Crystals LM Nom (Urine sed) NONE SEEN Normal NONE SEEN The [facility] Comment on above: Performed By: #### U MICRO, UACSIND #### [facility] [address] [address] [address] Cyril Hendricks Epithelial cells LM Ql (Urine sed) MANY Abnormal NONE SEEN /RARE [facility] Comment on above: Performed By: #### U MICRO, UACSIND #### [facility] [address] [place] [address] Dr. Cyril Hendricks MUCOUS NONE SEEN Normal NONE SEEN The [facility] Comment on above: Performed By: #### U MICRO, UACSIND #### [facility] [address] [place] [address] Dr. Cyril Hendricks RBC 0-2 Normal 0-2 [facility] Comment on above: Performed By: #### U MICRO, UACSIND #### [facility] [address] [address] [address] Cyril Hendricks WBC 10-20 Abnormal NONE SEEN The [facility] Comment on above: Performed By: #### U MICRO, UACSIND #### [facility] [address] [address] [address] Cyril Hendricks GROUP B STREP CULTUREon 12-07 S. agalactiae Ag Ql (Unsp spec) Culture Observations: NEGATIVE FOR GROUP B STREPTOCOCCUS. Normal [facility] Comment on above: Performed By: #### G BSCX #### [facility] [address] [address] [address] Cyril Hendricks SSAon 12-13-2021 SSA <0.3 Normal <7.0 [facility] Comment on above: Result Comment: Reference Range: <7.0 Negative 7.0-10.0 Equivocal >10.0 Positive Performed By: #### S SARO, TSH, FT4, SSBLA #### [employer] [address] [place] [address] Maturity Checker: Homer Hoffman MD SSBon 12-13-2021 SSB <0.3 Normal <7.0 [facility] Comment on above: Result Comment: Reference Range: <7.0 Negative 7.0-10.0 Equivocal >10.0 Positive Performed By: #### S SARO, TSH, FT4, SSBLA #### [facility] [address] [place], [place] [id number] Maturity Checker: Homer Hoffman MD No Panel Informationon 12-12 [facility] [employer] T4, Freeon 12-12-2021 Thyroxine, Free 0.98 ng/dL 0.93 - 1.70 ng/dL [facility] TSHon 12-12-2021 TSH Qn 4.35 m[IU]/L [facility] Thyroid Stim. Horm.on 2021 Thyroid Stim. Horm. 4.35 uIU/mL Normal 0.30-5.00 [facility] Comment on above: Performed By: #### S SARO, TSH, FT4, SSBLA #### [employer] [address] [place], [place] [id number] Maturity Checker: Homer Hoffman MD Thyroxine, Freeon 12-12-2021 Thyroxine, Free 0.98 ng/dL Normal 0.93-1.70 [facility] Comment on above: Performed By: #### S SARO, TSH, FT4, SSBLA #### [employer] [address] [place], [place] [id number] Maturity Checker: Homer Hoffman MD US PREG BIOPHY W [...] by: SOFIA KABA Date: 2021-11-27 13:55 Normal [facility] COVID + FLU Quick Testingon 11-13-2021 SARS-CoV-2 (COVID-19) RNA ALFREDO+probe Ql (Unsp spec) Negative [employer] Other COVID + FLU Quick Testing Negative [employer] Other GLUCOSE - 1HRon 10-23-2021 Glucose [Mass/Vol] 83 mg/dL Normal 74-106 [facility] Comment on above: Performed By: #### G LU1HR #### [facility] [address] [place] [address] Dr. Cyril Hendricks CHLAMYDIA/GONOCOCCUS ALFREDO (SW AB/URINE/PAPon 10-05-2021 Chlamydia trachomatis, ALFREDO Negative Normal Negative [facility] Comment on above: Performed By: #### C T/NGNA #### [facility] [address] [address] [address] Cyril Hendricks Neisseria gonorrhoeae, ALFREDO Negative Normal Negative [facility] Comment on above: Performed By: #### C T/NGNA #### [facility] [address] [address] [address] Cyril Hendricks VAGINITIS/VAGINOSIS DNA PROB Maurice 10-04-2021 Krista species Positive Abnormal Negative [facility] Comment on above: Performed By: #### H CVPCRR #### [facility] [address] [address] [address] Cyril Hendricks Gardnerella vaginalis Negative Normal Negative [facility] Comment on above: Performed By: #### H CVPCRR #### [facility] [address] [place] [address] Dr. Cyril Hendricks Trichomonas vaginalis Negative Normal Negative [facility] Comment on above: Performed By: #### H CVPCRR #### [facility] [address] [address] [address] Cyril Hendricks HEP B SURFACE ANTIGEN SCREEN on 10-03-2021 HBsAg Screen Negative Normal Negative [facility] Comment on above: Performed By: #### H CVPCRR #### [facility] [address] [address] [address] Cyril Hendricks HEPATITIS C VIRUS AB W/ REFL EX QUANTon 10-03-2021 HCV AB <0.1 Normal 0.0-0.9 [facility] Comment on above: Performed By: #### H CVPCRR #### [facility] [address] [place] [address] Dr. Cyril Hendricks Interpretation: Comment Normal [facility] Comment on above: Result Comment: Nega tive Not infected with HCV, unless recent infection is suspected or other evidence exists to indicate HCV infection. Performed By: #### H CVPCRR #### [facility] [address] [place] [address] Dr. Cyril Hendricks HIV 1 AND 2 WITH REFLEXon HIV Screen 4th Generation wRfx Non-Reactive Normal Non Reactive [facility] Comment on above: Result Comment: HIV Negative HIV-1/HIV-2 antibodies and HIV-1 p24 antigen were NOT detected. There is no laboratory evidence of HIV infection. Performed By: #### H IV12 #### [facility] [address] [place] [address] Dr. Cyril Hendricks RPR QUANTon 10-03-2021 Rapid Plasma Reagin, Quant Non-Reactive Normal NonRea<1:1 [facility] Comment on above: Result Comment: Juliette brito Note: This test does not meet current guidelines for screening and diagnosis of syphilis. This test is intended for following treatment response in patients being treated for syphilis infection. To screen for syphilis infection, a reflex cascade that includes both RPR and a treponema-specific assay should be utilized, such as Treponema pallidum (Syphilis) Screening Lambert (439566) or Rapid Plasma Reagin (RPR) Test With Reflex to Quantitative RPR and Confirmatory Treponema pallidum Antibodies (721135). Performed By: #### U MICRO, UACSIND #### [facility] [address] [place] [address] Dr. Cyril Hendricks RUBELLA AB IGGon 10-03-2021 Rubella Antibodies, IgG <0.90 Critically low Immune > 0.99 [facility] Comment on above: Result Comment: Non- immune <0.90 Equivocal 0.90 - 0.99 Immune >0.99 Performed By: #### U MICRO, UACSIND #### [facility] [address] [place] [address] Dr. Cyril Hendricks CBC AUTO DIFFon 10-02-2021 BASO # 0.1 103/ul Normal 0.0-0.1 [facility] Comment on above: Performed By: #### U MICRO, UACSIND #### [facility] [address] [place] [address] Dr. Cyril Hendricks Basophils/100 WBC (Bld) 0.4 % Normal 0.2-2.0 [facility] Comment on above: Performed By: #### U MICRO, UACSIND #### [facility] [address] [place] [address] Dr. Cyril Hendricks EO # 0.1 103/ul Normal 0.0-0.7 [facility] Comment on above: Performed By: #### U MICRO, UACSIND #### [facility] [address] [address] [address] Cyril Hendricks Eosinophils/100 WBC (Bld) 1.1 % Normal 0.9-7.0 [facility] Comment on above: Performed By: #### U MICRO, UACSIND #### [facility] [address] [place] [address] Dr. Cyril Hendricks Erythrocyte distribution width (RBC) [Ratio] 13.5 % Normal 11.0-15.0 [facility] Comment on above: Performed By: #### U MICRO, UACSIND #### [facility] [address] [place] [address] Dr. Cyril Hendricks Hematocrit (Bld) [Volume fraction] 34.5 % Critically low 36.0-48.0 [facility] Comment on above: Performed By: #### U MICRO, UACSIND #### [facility] [address] [place] [address] Dr. Cyril Hendricks Hemoglobin (Bld) [Mass/Vol] 12.0 g/dL Normal 12.0-16.0 [facility] Comment on above: Performed By: #### U MICRO, UACSIND #### [facility] [address] [place] [address] Dr. Cyril Hendricks IG # 0.04 10e3/ul Critically high 0.00-0.03 The [facility] Comment on above: Performed By: #### U MICRO, UACSIND #### [facility] [address] [place] [address] Dr. Cyril Hendricks IG % 0.3 % Normal 0.0-0.5 The [facility] Comment on above: Performed By: #### U MICRO, UACSIND #### [facility] [address] [place] [address] Dr. Cyril Hendricks LYMPH # 2.6 103/ul Normal 1.2-3.8 The [facility] Comment on above: Performed By: #### U MICRO, UACSIND #### [facility] [address] [place] [address] Dr. Cyril Hendricks Lymphocytes/100 WBC (Bld) 21.3 % Normal 20.5-60.0 [facility] Comment on above: Performed By: #### U MICRO, UACSIND #### [facility] [address] [place] [address] Dr. Cyril Hendricks MANUAL DIFF REQ NO Normal [facility] Comment on above: Performed By: #### U MICRO, UACSIND #### [facility] [address] [place] [address] Dr. Cyril Hendricks MCH (RBC) [Entitic mass] 32.5 pg Normal 26.7-34.0 [facility] Comment on above: Performed By: #### U MICRO, UACSIND #### [facility] [address] [place] [address] Dr. Cyril Hendricks MCHC (RBC) [Mass/Vol] 34.8 g/dL Normal 29.9-35.2 [facility] Comment on above: Performed By: #### U MICRO, UACSIND #### [facility] [address] [place] [address] Dr. Cyril Hendricks MCV (RBC) [Entitic vol] 93.5 fL Normal 81.0-99.0 [facility] Comment on above: Performed By: #### U MICRO, UACSIND #### [facility] [address] [place] [address] Dr. Cyril Hendricks MONO # 0.8 103/ul Normal 0.3-0.8 [facility] Comment on above: Performed By: #### U MICRO, UACSIND #### [facility] [address] [place] [address] Dr. Cyril Hendricks Monocytes/100 WBC (Bld) 6.2 % Normal 1.7-12.0 [facility] Comment on above: Performed By: #### U MICRO, UACSIND #### [facility] [address] [place] [address] Dr. Cyril Hendricks NEUT # 8.6 103/ul Critically high 1.4-6.5 [facility] Comment on above: Performed By: #### U MICRO, UACSIND #### [facility] [address] [address] [address] Cyril Hendricks Neutrophils/100 WBC (Bld) 70.7 % Normal 43.0-75.0 [facility] Comment on above: Performed By: #### U MICRO, UACSIND #### [facility] [address] [address] [address] Cyril Hendricks Platelet mean volume (Bld) [Entitic vol] 9.1 fL Critically low 9.5-13.5 [facility] Comment on above: Performed By: #### U MICRO, UACSIND #### [facility] [address] [place] [address] Dr. Cyril Hendricks PLT 257 103/ul Normal 150-450 [facility] Comment on above: Performed By: #### U MICRO, UACSIND #### [facility] [address] [place] [address] Dr. Cyril Hendricks RBC 3.69 106/ul Critically low 4.20-5.40 [facility] Comment on above: Performed By: #### U MICRO, UACSIND #### [facility] [address] [place] [address] Dr. Cyril Hendricks WBC 12.2 103/ul Critically high 4.0-11.[address] [facility] Comment on above: Performed By: #### U MICRO, UACSIND #### [facility] [address] [place] [address] Dr. Cyril Hendricks CULTURE URINEon 10-02-2021 CULTURE URINE Culture Observations: MODERATE GROWTH OF MIXED GENITAL DRAGAN. NO POTENTIAL PATHOGENS SEEN. Normal [facility] Comment on above: Performed By: #### H CVPCRR #### [facility] [address] [place] [address] Dr. Cyril Hendricks GLYCOHEMOGLOBIN A1Con 2021 ADA RECOMMENDATION SEE BELOW Normal [facility] Comment on above: Result Comment: ADA RECOMMENDED LIMIT 4.0 - 6.0 ADA THERAPEUTIC TARGET < 7.0 ACTION SUGGESTED > 7.0 Performed By: #### H CVPCRR #### [facility] [address] [address] [address] Cyril Hendricks Glucose [Mass/Vol] 80 mg/dL Normal [facility] Comment on above: Performed By: #### H CVPCRR #### [facility] [address] [place], [place] [address] Dr. Cyril Hendricks HbA1c (Bld) [Mass fraction] 4.4 % Critically low 4.5-6.2 [facility] Comment on above: Performed By: #### H CVPCRR #### [facility] [address] [address] [address] Cyril Hendricks TYPE AND SCREENon 10-02-2021 TYPE AND SCREEN Negative Normal [facility] Comment on above: Performed By: #### H CVPCRR #### [facility] [address] [address] [address] Cyril Hendricks US PREG PLACENTAon US PREG PLACENTA EXAMINATION: US PREG PLACENTA [...] SOFIA KABA Date: 2021-10-02 10:47 Normal The [facility] US PREG ANATOMY SINGLEon US PREG ANATOMY [...] (44% by ultrasound, 29% by expected) FL/AC: [id number] FL/BPD: [id number] HC/AC: [id number] GESTATIONAL AGE: Age by EDC: 21 weeks, 3 days NOY by EDC: 01/12/2022 Age by current US: 21 weeks, 1 day NOY by current US: 01/14/2022 IMPRESSION: 1. Single live intrauterine with growth detailed above. 2. Posterior, low-lying placenta. Electronically authenticated by: MARS FRANKEL Date: 2021-09-04 16:30 Normal [facility] Vital Signs Date Time Vital Sign Value Performing Clinician Facility 02-03-2024 09:23-0400 Body temperature 97.88 [degF] Siva Schulte [facility] 02-03-2024 09:23-0400 Diastolic blood pressure 70 mm[Hg] Siva Schulte [facility] 02-03-2024 09:23-0400 Heart rate 85 /min Siva Schulte [facility] 02-03-2024 09:23-0400 Respiratory rate 18 /min Siva Schulte [facility] 02-03-2024 09:23-0400 SaO2% (BldA) [Mass fraction] 99 % Siva Schulte [facility] 02-03-2024 09:23-0400 Systolic blood pressure 106 mm[Hg] Siva Schulte [facility] 09-23-2023 09:16-0400 Body temperature 98.42 [degF] Wil Chandra [facility] 09-23-2023 09:16-0400 Diastolic blood pressure 68 mm[Hg] Wil Chandra [facility] 09-23-2023 09:16-0400 Heart rate 82 /min Wil Chandra [facility] 09-23-2023 09:16-0400 Respiratory rate 18 /min Wil Chandra [facility] 09-23-2023 09:16-0400 SaO2% (BldA) [Mass fraction] 97 % Wil Chandra [facility] 09-23-2023 09:16-0400 Systolic blood pressure 98 mm[Hg] Wil Chandra [facility] 08-27-2023 12:24-0400 Diastolic blood pressure 61 mm[Hg] [facility] 08-27-2023 12:24-0400 Heart rate 77 /min [facility] 08-27-2023 12:24-0400 Mean blood pressure 72 mm[Hg] [facility] 08-27-2023 12:24-0400 Respiratory rate 16 /min [facility] 08-27-2023 12:24-0400 SaO2% (BldA) [Mass fraction] 97 % [facility] 08-27-2023 12:24-0400 Systolic blood pressure 93 mm[Hg] [facility] 08-27-2023 11:30-0400 Diastolic blood pressure 69 mm[Hg] [facility] 08-27-2023 11:30-0400 Heart rate 74 /min [facility] 08-27-2023 11:30-0400 Mean blood pressure 82 mm[Hg] [facility] 08-27-2023 11:30-0400 Respiratory rate 16 /min [facility] 08-27-2023 11:30-0400 SaO2% (BldA) [Mass fraction] 99 % [facility] 08-27-2023 11:30-0400 Systolic blood pressure 107 mm[Hg] [facility] 08-27-2023 10:30-0400 Diastolic blood pressure 62 mm[Hg] [facility] 08-27-2023 10:30-0400 Heart rate 91 /min [facility] 08-27-2023 10:30-0400 Mean blood pressure 77 mm[Hg] [facility] 08-27-2023 10:30-0400 Respiratory rate 18 /min [facility] 08-27-2023 10:30-0400 SaO2% (BldA) [Mass fraction] 100 % [facility] 08-27-2023 10:30-0400 Systolic blood pressure 107 mm[Hg] [facility] 08-27-2023 09:41-0400 Body temperature 98.6 [degF] [facility] 08-27-2023 09:41-0400 Heart rate 80 /min [facility] 01-04-2023 00:03-0400 Body temperature 98.78 [degF] Siva Schulte [facility] 01-04-2023 00:03-0400 Diastolic blood pressure 54 mm[Hg] Siva Schulte [facility] 01-04-2023 00:03-0400 Heart rate 97 /min Siva Schulte [facility] 01-04-2023 00:03-0400 Mean blood pressure 70 mm[Hg] Siva Schulte [facility] 01-04-2023 00:03-0400 Respiratory rate 18 /min Siva Schulte [facility] 01-04-2023 00:03-0400 SaO2% (BldA) [Mass fraction] 94 % Siva Eris [facility] 01-04-2023 00:03-0400 Systolic blood pressure 102 mm[Hg] Siva Eris [facility] 01-03-2023 23:00-0400 Body temperature 100.04 [degF] Siva Eris [facility] 01-03-2023 23:00-0400 Diastolic blood pressure 62 mm[Hg] Siva Eris [facility] 01-03-2023 23:00-0400 Heart rate 100 /min Siva Eris [facility] 01-03-2023 23:00-0400 Mean blood pressure 75 mm[Hg] Siva Eris [facility] 01-03-2023 23:00-0400 Systolic blood pressure 100 mm[Hg] Siva Eris [facility] 01-03-2023 22:42-0400 Body temperature 100.76 [degF] Siva Eris [facility] 01-03-2023 22:42-0400 Diastolic blood pressure 59 mm[Hg] Siva Eris [facility] 01-03-2023 22:42-0400 Heart rate 105 /min Siva Eris [facility] 01-03-2023 22:42-0400 Respiratory rate 20 /min Siva Eris [facility] 01-03-2023 22:42-0400 SaO2% (BldA) [Mass fraction] 99 % Siva Schulte [facility] 01-03-2023 22:42-0400 Systolic blood pressure 96 mm[Hg] Siva Schulte [facility] 10-02-2022 21:29-0400 Diastolic blood pressure 72 mm[Hg] PHYSICIAN NO [facility] 10-02-2022 21:29-0400 Heart rate 94 /min PHYSICIAN NO [facility] 10-02-2022 21:29-0400 Respiratory rate 18 /min PHYSICIAN NO [facility] 10-02-2022 21:29-0400 SaO2% (BldA) [Mass fraction] 98 % PHYSICIAN NO [facility] 10-02-2022 21:29-0400 Systolic blood pressure 141 mm[Hg] PHYSICIAN NO [facility] 10-02-2022 17:03-0400 Body height 170.18 cm PHYSICIAN NO [facility] 10-02-2022 17:03-0400 Body temperature 98.3 [degF] PHYSICIAN NO [facility] 10-02-2022 17:03-0400 Body weight 76.4 kg PHYSICIAN NO [facility] 09-25-2022 13:25-0400 Body height 170.18 cm Viet Welch Other [employer] Other 09-25-2022 13:25-0400 Body mass index (BMI) [Ratio] 26.62 kg/m2 Viet Welch Other [employer] Other 09-25-2022 13:25-0400 Body temperature 98.2 [degF] Viet Welch Other [employer] Other 09-25-2022 13:25-0400 Body weight 77.11 kg Viet Welch Other [employer] Other 09-25-2022 13:25-0400 Diastolic blood pressure 68 mm[Hg] Viet Yuri Other [employer] Other 09-25-2022 13:25-0400 Respiratory rate 18 /min Viet Welch Other [employer] Other 09-25-2022 13:25-0400 SaO2% (BldA) [Mass fraction] 98 % Viet Welch Other [employer] Other 09-25-2022 13:25-0400 Systolic blood pressure 107 mm[Hg] Viet Welch Other [employer] Other 09-06-2022 13:54-0400 Diastolic blood pressure 72 mm[Hg] Wil Corazon [facility] 09-06-2022 13:54-0400 Heart rate 60 /min Wil Corazon [facility] 09-06-2022 13:54-0400 Respiratory rate 16 /min Wil Corazon [facility] 09-06-2022 13:54-0400 SaO2% (BldA) [Mass fraction] 100 % Wil Corazon [facility] 09-06-2022 13:54-0400 Systolic blood pressure 103 mm[Hg] Wil Corazon [facility] 09-06-2022 11:41-0400 Diastolic blood pressure 65 mm[Hg] Wil Corazon [facility] 09-06-2022 11:41-0400 Heart rate 58 /min Wil Corazon [facility] 09-06-2022 11:41-0400 Mean blood pressure 77 mm[Hg] Wil Corazon [facility] 09-06-2022 11:41-0400 Respiratory rate 16 /min Wil Corazon [facility] 09-06-2022 11:41-0400 SaO2% (BldA) [Mass fraction] 100 % Wil Chandra [facility] 09-06-2022 11:41-0400 Systolic blood pressure 102 mm[Hg] Wil Chandra [facility] 09-06-2022 10:42-0400 Body temperature 98.24 [degF] Wil Chandra [facility] 09-06-2022 10:42-0400 bodymassindex 1.17 Wil Chandra [facility] Comment on above: Result Comment: ^~:!ZScore [facility] 09-06-2022 10:42-0400 Diastolic blood pressure 71 mm[Hg] Wil Chandra [facility] 09-06-2022 10:42-0400 Heart rate 73 /min Wil Chandra [facility] 09-06-2022 10:42-0400 Height/Length Percentile 84.89 Wil Chandra [facility] Comment on above: Result Comment: ^~:!Percentile Source [facility] 09-06-2022 10:42-0400 Height/Length Z-Score 1.03 Wil Chandra [facility] Comment on above: Result Comment: ^~:!ZScore [facility] 09-06-2022 10:42-0400 Respiratory rate 16 /min Wil Chandra [facility] 09-06-2022 10:42-0400 SaO2% (BldA) [Mass fraction] 98 % Wil Chandra [facility] 09-06-2022 10:42-0400 Systolic blood pressure 111 mm[Hg] Wil Chandra [facility] 09-06-2022 10:42-0400 weight 1.47 Wil Chandra [facility] Comment on above: Result Comment: ^~:!ZScore [facility] 09-06-2022 10:42-0400 Weight Percentile 92.90 % Wil Chandra [facility] Comment on above: Result Comment: ^~:!Percentile Source [facility] 08-14-2022 21:30-0500 Diastolic blood pressure 79 mm[Hg] Bob Llanos [facility] 08-14-2022 21:30-0500 Heart rate 87 /min Bob Llanos [facility] 08-14-2022 21:30-0500 Mean blood pressure 93 mm[Hg] Bob Llanos [facility] 08-14-2022 21:30-0500 Nursing Progress Note Reason Other: pt to US via stretcher at this time. Bob Llanos [facility] 08-14-2022 21:30-0500 Respiratory rate 16 /min Bob Llanos [facility] 08-14-2022 21:30-0500 SaO2% (BldA) [Mass fraction] 100 % Bob Llanos [facility] 08-14-2022 21:30-0500 Systolic blood pressure 120 mm[Hg] Bob Llanos [facility] 08-14-2022 19:20-0500 Body temperature 98.96 [degF] Bob Llanos [facility] 08-14-2022 19:20-0500 bodymassindex 1.17 Bob Llanos [facility] Comment on above: Result Comment: ^~:!ZScore [facility] 08-14-2022 19:20-0500 Diastolic blood pressure 61 mm[Hg] Bob Llanos [facility] 08-14-2022 19:20-0500 Heart rate 98 /min Bob Llanos [facility] 08-14-2022 19:20-0500 Height/Length Percentile 84.91 Bob Llanos [facility] Comment on above: Result Comment: ^~:!Percentile Source [facility] 08-14-2022 19:20-0500 Height/Length Z-Score 1.03 Bob Llanos [facility] Comment on above: Result Comment: ^~:!ZScore Source [facility] 08-14-2022 19:20-0500 Respiratory rate 16 /min Bob Llanos [facility] 08-14-2022 19:20-0500 SaO2% (BldA) [Mass fraction] 99 % Bob Llanos [facility] 08-14-2022 19:20-0500 Systolic blood pressure 114 mm[Hg] Bob Llanos [facility] 08-14-2022 19:20-0500 weight 1.47 Bob Llanos [facility] Comment on above: Result Comment: ^~:!ZScore Source [facility] 08-14-2022 19:20-0500 Weight Percentile 92.94 % Bob Llanos [facility] Comment on above: Result Comment: ^~:!Percentile Source [facility] 06-24-2022 13:30-0500 Body height 170.18 cm Viet Welch Other [employer] Other 06-24-2022 13:30-0500 Body mass index (BMI) [Ratio] 26.62 kg/m2 Viet Welch Other [employer] Other 06-24-2022 13:30-0500 Body temperature 97.8 [degF] Viet Welch Other [employer] Other 06-24-2022 13:30-0500 Body weight 77.11 kg Viet Welch Other [employer] Other 06-24-2022 13:30-0500 Diastolic blood pressure 63 mm[Hg] Viet Welch Other [employer] Other 06-24-2022 13:30-0500 Respiratory rate 18 /min Viet Welch Other [employer] Other 06-24-2022 13:30-0500 SaO2% (BldA) [Mass fraction] 98 % Viet Welch Other [employer] Other 06-24-2022 13:30-0500 Systolic blood pressure 97 mm[Hg] Viet Welch Other [employer] Other 11-13-2021 14:05-0400 Body height 170.18 cm Michael Oneil Other [employer] Other 11-13-2021 14:05-0400 Body mass index (BMI) [Ratio] 26.62 kg/m2 Michael Oneil Other [employer] Other 11-13-2021 14:05-0400 Body temperature 98.4 [degF] Michael Oneil Other [employer] Other 11-13-2021 14:05-0400 Body weight 77.11 kg Michael Oneil Other [employer] Other 11-13-2021 14:05-0400 Respiratory rate 18 /min Michael Oneil Other [employer] Other 11-13-2021 14:05-0400 SaO2% (BldA) [Mass fraction] 98 % Michael Oneil Other [employer] Other 11-06-2021 15:45-0400 Body height Kendra Witt Other [employer] Other 11-06-2021 15:45-0400 Body mass index (BMI) [Ratio] 26.62 kg/m2 Kendra Witt Other [employer] Other 11-06-2021 15:45-0400 Body weight 77.11 kg Kendra Witt Other [employer] Other 11-06-2021 15:45-0400 Respiratory rate 20 /min Kendra Witt Other [employer] Other 11-06-2021 15:45-0400 SaO2% (BldA) [Mass fraction] 98 % Kendra Witt Other [employer] Other Encounters Encounter Date Encounter Type Care Provider Facility Start: 02-03-2024 End: 02-03-2024 Emergency department patient visit Siva Schulte [facility] Start: 01-26-2024 End: 01-26-2024 ambulatory JUVENAL THORPE Not Available Start: 12-29-2023 End: 12-29-2023 ambulatory GONSALO CORRAL Not Available Start: 12-22-2023 End: 12-22-2023 ambulatory JUVENAL THORPE [facility] Start: 12-01-2023 End: 12-01-2023 ambulatory JUVENAL ASHIA Not Available Start: 11-10-2023 End: 11-10-2023 ambulatory JUVENAL THORPE [facility] Start: 10-27-2023 End: 10-27-2023 ambulatory GONSALO CORRAL Not Available Start: 09-29-2023 End: 09-29-2023 ambulatory JUVENAL RAMIREZO Not Available Start: 09-23-2023 End: 09-23-2023 Emergency department patient visit SELAM HUNTER Facility:[facility] Start: 09-23-2023 End: 09-23-2023 Emergency department patient visit Wil Chandra [facility] Start: 09-04-2023 End: 09-04-2023 ambulatory JUVENAL RAMIREZO Not Available Start: 08-27-2023 End: 08-27-2023 Emergency department patient visit SELAM HUNTER Facility:[facility] Start: 08-27-2023 End: 08-27-2023 Emergency department patient visit Emily Dumontchay [facility] Start: 08-18-2023 End: 08-19-2023 ambulatory SELAM HUNTER Facility:[facility] Start: 01-04-2023 End: 01-04-2023 Emergency department patient visit Siva Schulte Facility:[facility] Start: 01-03-2023 End: 01-04-2023 Emergency department patient visit Siva Schulte [facility] Start: 12-12-2022 End: 12-12-2022 ambulatory Kenneth Mills Other [employer] Other Start: 12-12-2022 Telephone encounter Kenneth Mills [facility] Start: 10-02-2022 End: 10-02-2022 Emergency department patient visit Jose Silverman Facility:[facility] Start: 10-02-2022 End: 10-02-2022 Emergency department patient visit PHYSICIAN SJ LERNER [facility] Work Phone: Start: 09-25-2022 End: 09-25-2022 ambulatory Viet Welch Other [employer] Other Start: 09-25-2022 Office outpatient visit 15 minutes Viet Welch [facility] Start: 09-06-2022 End: 09-06-2022 Emergency department patient visit Wil Chandra [facility] Start: 08-14-2022 End: 08-14-2022 Emergency department patient visit Bob Llanos [facility] Start: 07-11-2022 End: 07-11-2022 ambulatory ROSEANN CORRAL Facility:[facility] Start: 06-24-2022 End: 06-24-2022 ambulatory Viet Welch Other [employer] Other Start: 06-24-2022 Office outpatient visit 15 minutes Viet Welch [facility] Start: 01-11-2022 End: 01-11-[address] ALEJANDRO CURTIS Facility:[facility] Start: 01-07-2022 End: 01-09-2022 Evaluation and management of inpatient DR RENATA GEORGES Facility:[facility] Start: 12-29-2021 End: 12-29-[address] JUVENAL THORPE Facility:[facility] Start: 12-19-2021 End: 12-19-[address] JUVENAL THORPE Facility:[facility] Start: 12-12-2021 End: 12-13-2021 [facility] Start: 12-12-2021 End: 12-12-2021 Subsequent hospital visit by physician [facility] Start: 11-27-2021 End: 11-27-[address] SOFIA KABA Facility:[facility] Start: 11-13-2021 End: 11-13-2021 ambulatory Michael Oneil Other [employer] Other Start: 11-13-2021 Office outpatient visit 15 minutes Calley Clarice [facility] Start: 11-06-2021 End: 11-06-2021 ambulatory Kendra Witt Other [employer] Other Start: 11-06-2021 Office outpatient visit 25 minutes Kendra Witt [facility] Start: 10-23-2021 End: 10-24-[address] [...] identified in Urine by Culture Urine Culture [facility] Start: 02-07-2022 Influenza vaccination Flu vaccine (# 1) [facility] Start: 01-09-2022 End: 01-09-2022 Patient encounter procedure 01/09/[address] [facility] Start: 01-02-2022 End: 01-02-2022 Patient encounter procedure 01/02/2022 Routine Perinatology [facility] Start: 12-26-2021 End: 12-26-2021 Patient encounter procedure 12/26/2021 Routine [facility]ology [facility] Start: 12-20-2021 End: 12-20-2021 Patient encounter procedure 12/20/2021 Routine Perinatology [facility] Start: 2021 DTaP/Tdap/Td vaccine (1 - Tdap) DTaP/Tdap/Td vaccine (1 - Tdap) [facility] [employer] Start: 2020 Hepatitis C screening Hepatitis C sc reen [facility] [employer] Start: 2018 Screening for Chlamy nazanin trachomatis Chlamydia screen [facility] Start: 2017 HIV screening HIV screen [facility] [employer] Start: 2014 Depression Monitoring Depression Mon itoring [facility] Start: 2013 HPV vaccine (1 - 2-d ose series) HPV vaccine (1 - 2-dose series) [facility] [employer] Start: 09-16-2007 COVID-19 Vaccine (1) COVID-19 Vaccin e (1) [facility] Start: 09-16-2003 Varicella vaccine (1 of 2 - 2-dose childhood series) Varicella vaccine (1 of 2 - 2-dose childhood series) [facility] [place] [facility] Patient Education Depression, Adult ED [facility] Work Phone: Patient referral [facility] Work Phone: End: 12-12-2021 Sjogrens syndrome-A extractable nuclear antibody [facility] Phone: Comment on above: Once for 1 Occurrenc es starting 12/12/2021 until 12/12/2021 End: 12-12-2021 Sjogrens syndrome-B extractable nuclear antibody [facility] Work Phone: Comment on above: Once for 1 Occurrenc es starting 12/12/2021 until 12/12/2021 Immunizations Immunization Date Immunization Notes Care Provider Simona galarza NEGATED: Highlighted row has not occurred!11-05-2019 influenza, injectable, quadrivalent, contains preservative Kendra Witt Other [employer] Other NEGATED: Highlighted row has not occurred!04-10-2019 influenza virus vaccine, unspecified formulation Bob Llanos [facility] Care Payers Date Payer Category Payer Self-pay [id number] 2002 Unknown [id number] 2.16. [id number] 2002 Unknown [id number] 2.16.84 0.1.617106.3.579.2.593 2002 Unknown [id number] 2.16.84 0.1.823105.3.579.2.593 2002 Unknown [id number] 2.16.84 0.1.487359.3.579.2.593 2002 Unknown [id number] 2.16.84 0.1.352454.3.579.2.593 2002 Unknown [id number] 2.16.84 0.1.178186.3.579.2.593 2002 Unknown [id number] 2.16.84 0.1.373464.3.579.2.593 2002 Unknown [id number] 2.16.84 0.1.768853.3.579.2.593 2002 Unknown [id number] 2.16.84 0.1.768557.3.579.2.593 2002 Unknown [id number] 2.16.84 0.1.941995.3.579.2.593 2002 Unknown [id number] 2.16.84 0.1.447695.3.579.2.593 2002 Unknown [id number] 2.16.84 0.1.240720.3.579.2.593 2002 Unknown [id number] 2.16.8 40.1.748499.3.579.2.727 2002 Unknown [id number] 2.16.8 40.1.136372.3.579.2.727 2002 Unknown [id number] 2.16.8 40.1.457952.3.579.2.727 2002 Unknown [id number] 2.16.8 40.1.315655.3.579.2.727 2002 Unknown [id number] 2.16.8 40.1.408640.3.579.2.1286 2002 Unknown [id number] 2.16.8 40.1.818907.3.579.2.1286 2002 Unknown [id number] 2.16.8 40.1.197818.3.579.2.1286 2002 Unknown [id number] 2.16.84 0.1.368866.3.579.2.9 2002 Unknown [id number] 2.16.84 0.1.400498.3.579.2.9 2002 Unknown [id number] 2.16.84 0.1.651802.3.579.2.1259 2002 Unknown [id number] 2.16.84 0.1.028287.3.579.2.9 2002 Unknown [id number] 2.16.84 0.1.080624.3.579.2.9 2002 Unknown [id number] 2.16.84 0.1.938331.3.579.2.1259 1959 Unknown [id number] 2.1 6.840.1.238754.19 1959 Unknown [id number] Unknown [id number] 2.16.8 40.1.912086.3.579.2.531 Social History Date Type Detail Facility Sex Assigned At [facility] Start: 11-28-2021 Tobacco smoking stat [facility] Never smoked tobacco [employer] Work Phone: Start: 11-28-2021 Tobacco use and exposure Smokeless tobacco non-user [employer] Phone: Start: 12-12-2021 Alcohol intake Ex-drinker (finding) [employer] Phone: Start: 12-12-2021 Tobacco Comment no longer vapes [employer] Phone: Start: 04-21-2021 [employer] Phone: Start: 2000 Sex Assigned At Not on file B [facility] [employer] Phone: Tobacco Current vaping o r e-cigarette use Smokeless Tobacco Use:. Vaping [facility] Tobacco smoking status No Smokin g Status Entered [facility] Start: 10-02-2022 Tobacco smoking stat us [facility] Smoker (finding) [facility] Start: 2000 Sex Assigned At Female F [facility] Functional Status Date Assessment Result Facility 02-03-2024 Functional Status N/A [facility] 09-23-2023 Functional Status N/A [facility] 08-27-2023 Functional Status N/A [facility] 01-03-2023 Functional Status N/A [facility] 09-06-2022 Functional Status N/A [facility] 08-14-2022 Functional Status N/A [facility] Clinical Notes 11-06-2021 to 02-03-2024 Note Date & Type Note Facility 02-03-2024 Evaluation + Plan note Extrac ruby from: Title:ED Note Author:Duc Swanson PA-C te:02/03/24 Sore throat (J02.9: Acute ph aryngitis, unspecified) Viral URI (J06.9: Acute upper respiratory infection, unspecified) Orders: Group A Strep by PCR Rapid Strep w/rfx Diagnostic Tests Pending * Group A Strep by PCR 02/03/24 [facility] 08-27-2024 Hospital Discharge instructions Patient Education 02/03/2024 11:17:24 Upper Respiratory Infection, Adult Upper Respiratory Infection, Adult An upper respiratory infection (URI) is a common viral infection of the nose, throat, and upper airpassages that lead to the lungs. The most common type of URI is the common cold. URIs usually get better on their own, without medical treatment. What are the causes? A URI is caused by a virus. You may catch a virus by: Breathing in droplets from an infected person's cough or sneeze. Touching something that has been exposed to the virus (is contaminated) and then touching your mouth, nose, or eyes. What increases the risk? You are more likely to get a URI if: You are very young or very old. You have close contact with others, such as at work, school, or a health care facility. You smoke. You have long-term (chronic) heart or lung disease. You have a weakened disease-fighting system (immune system). You have nasal allergies or asthma. You are experiencing a lot of stress. You have poor nutrition. What are the signs or symptoms? A URI usually involves some of the following symptoms: Runny or stuffy (congested) nose. Cough. Sneezing. Sore throat. Headache. Fatigue. Fever. Loss of appetite. Pain in your forehead, behind your eyes, and over your cheekbones (sinus pain). Muscle aches. Redness or irritation of the eyes. Pressure in the ears or face. How is this diagnosed? This condition may be diagnosed based on your medical history and symptoms, and a physical exam. Your health care provider may use a swab to take a mucus sample from your nose (nasal swab). This sample can be tested to determine what virus is causing the illness. How is this treated? URIs usually get better on their own within 7 10 days. Medicines cannot cure URIs, but your health care provider may recommend certain medicines to help relieve symptoms, such as: Ltbr-rte-ajcxybu cold medicines. Cough suppressants. Coughing is a type of defense against infection that helps to clear the respiratory system, so take these medicines only as recommended by your health care provider. Fever-reducing medicines. Follow these instructions at home: Activity Rest as needed. If you have a fever, stay home from work or school until your fever is gone or until your health care provider says your URI cannot spread to other people (is no longer contagious). Your health care provider may have you wear a face mask to prevent your infection from spreading. Relieving symptoms Gargle with a mixture of salt and water 3 4 times a day or as needed. To make salt water, completely dissolve 1 tsp (3 6 g) of salt in 1 cup (237 mL) of warm water. Use a cool-mist humidifier to add moisture to the air. This can help you breathe more easily. Eating and drinking Drink enough fluid to keep your urine pale yellow. Eat soups and other clear broths. General instructions Take yunv-bdt-jgvasqh and prescription medicines only as told by your health care provider. These include cold medicines, fever reducers, and cough suppressants. Do not use any products that contain nicotine or tobacco. These products include cigarettes, chewing tobacco, and vaping devices, such as e-cigarettes. If you need help quitting, ask your health careprovider. Stay away from secondhand smoke. Stay up to date on all immunizations, including the yearly (annual) flu vaccine. Keep all follow-up visits. This is important. How to prevent the spread of infection to others URIs can be contagious. To prevent the infection from spreading: Wash your hands with soap and water for at least 20 seconds. If soap and water are not available, use hand street vendor. Avoid touching your mouth, face, eyes, or nose. Cough or sneeze into a tissue or your sleeve or elbow instead of into your hand or into the air. Contact a health care provider if: You are getting worse instead of better. You have a fever or chills. Your mucus is brown or red. You have yellow or brown discharge coming from your nose. You have pain in your face, especially when you bend forward. You have swollen neck glands. You have pain while swallowing. You have white areas in the back of your throat. Get help right away if: You have shortness of breath that gets worse. You have severe or persistent: ?Headache. ?Ear pain. ?Sinus pain. ?Chest pain. You have chronic lung disease along with any of the following: ?Making high-pitched whistling sounds when you breathe, most often when you breathe out (wheezing). ?Prolonged cough (more than 14 days). ?Coughing up blood. ?A change in your usual mucus. You have a stiff neck. You have changes in your: ?Vision. ?Hearing. ?Thinking. ?Mood. These symptoms may be an emergency. Get help right away. Call 911. Do not wait to see if the symptoms will go away. Do not drive yourself to the hospital. Summary An upper respiratory infection (URI) is a common infection of the nose, throat, and upper air passages that lead to the lungs. A URI is caused by a virus. URIs usually get better on their own within 7 10 days. Medicines cannot cure URIs, but your health care provider may recommend certain medicines to help relieve symptoms. This information is not intended to replace advice given to you by your health care provider. Make sure you discuss any questions you have with your health care provider. Document Revised: 12/26/2021 Document Reviewed: 12/26/2021 [employer] Patient Education 2022 [employer]. Follow Up Care 02/03/2024 09:23:13 With:Juvenal THORPE Address: [address] [place] [address]- Business (1) When:02/06/2024 11:12:27 With:SELAM HUNTER Address: [address] [place] [address]- Business (1) When:02/06/2024 11:12:21 [facility] 04-16-2024 Hospital Discharge instructions Patient Education 09/23/2023 11:52:16 Subchorionic Hematoma Subchorionic Hematoma A hematoma is a collection of blood outside of the blood vessels. A subchorionic hematoma is a collection of blood between the outer wall of the embryo (chorion) and the inner wall of the uterus. This condition can cause vaginal bleeding. Early small hematomas usually shrink on their own and donot affect your baby or . When bleeding [...] the outer wall of the embryo (chorion) andthe inner wall of the uterus. This condition [...] provider. Document Revised: 02/19/2021 Document Reviewed: 02/19/2021 [employer] Patient Education 2022 [employer]ope. Follow Up Care 09/23/2023 09:11:45 With:Juvenal ASHIA Address: [address] [place] [address] Business (1) When:09/26/2023 11:44:07 [facility]03-20-2024 Hospital Discharge instructions Patient Education 08/27/2023 12:34:16 and Urinary Tract Infection and Urinary Tract Infection A urinary tract infection (UTI) is an infection of any part of the urinary tract. This includes thekidneys, the tubes that connect the kidneys to the bladder (ureters), the bladder, and the tube that carries urine out of the body (urethra). These organs make, store, and get rid of urine in the body. Your health care provider may use other names to describe the infection. An upper UTI affects theureters and kidneys (pyelonephritis). A lower UTI affects [...] cause serious complications for both you and yourbaby. How does this affect me? Symptoms of [...] the white parts of the eyes turn yellow(jaundice). What can I do to lower my [...] told by your health care provider. Do notstop using the antibiotic even if you start [...] told by your health care provider. Do notstop using the antibiotic even if you start to feel better. This information is not intended to replace advice given to you by your health care provider. Make sure you discuss any questions you have with your health care provider. Document Revised: 01/09/2022 Document Reviewed: 01/09/2022 [employer] Patient Education 2022 [employer]ope. 08/27/2023 12:34:16 Urinary Tract Infection, Adult, Fjjo-py-Nvlc Urinary Tract Infection, Adult A urinary tract infection (UTI) is an infection of any part of the urinary tract. The urinary tractincludes: The kidneys. The ureters. The bladder. The [...] Follow these instructions at home: Medicines Take kqqj-thf-nkhrczd and prescription medicines only as told by [...] a female. Use each tissue one time whenyou wipe. Drink enough fluid to keep your [...] provider. Document Revised: 01/05/2021 Document Reviewed: 01/05/2021 [employer] Patient Education 2022 [employer] 08/27/2023 12:34:16 Subchorionic Hematoma Subchorionic Hematoma A hematoma is a collection of blood outside of the blood vessels. A subchorionic hematoma is a collection of blood between the outer wall of the embryo (chorion) and the inner wall of the uterus. This condition can cause vaginal bleeding. Early small hematomas usually shrink on their own and donot affect your baby or . When bleeding [...] the outer wall of the embryo (chorion) andthe inner wall of the uterus. This condition [...] provider. Document Revised: 02/19/2021 Document Reviewed: 02/19/2021 [employer] Patient Education 2022 [employer]. Follow Up Care 08/27/2023 09:39:16 With:Juvenal THORPE Address: [address] , [place] [address]- Business (1) When:08/30/2023 12:05:10 With:SELAM HUNTER Address: [facility] [place] [address] Business (1) When:Within 3 Day(s) [facility]03-20-2024 Evaluation + Plan noteExtracted from: Title:ED Note Author:Osvaldo CHUNG, Hudson Torres te:08/27/23 Other antepartum hemorrhage, unspecified trimester (O46.8X9: [...] day(s), # 28 cap(s), Refills(s) 0, Pharmacy: [facility], 170, cm, 08/27/23 9:49:00 EDT, Height/Length Dosing, 78.7, kg, 08/27/23 9:49:00 EDT, Weight Dosing ABO/Rh Basic Metabolic Panel Beta hCG Quantitative CBC w/ Auto Diff eGFR Extra Blue Tube Extra SST Tube UA with Cult Rflx Urine Culture US 1st Trimester US Transvaginal Diagnostic Tests Pending * Urine Culture 08/27/23 [facility]07-29-2023 Hospital Discharge instructions Patient Education 01/04/2023 00:13:01 Pharyngitis, Dbxb-mc-Suzr Pharyngitis Pharyngitis is a sore throat (pharynx). [...] Follow these instructions at home: Medicines Take fsmk-wkz-viaihgw and prescription medicines only as told by [...] and water are not available, use hand street vendor. Do not touch your eyes, nose, or [...] away. Call your local emergency services (911 int [place] Do not wait to see if [...] provider. Document Revised: 08/22/2021 Document Reviewed: 08/22/2021 [employer] Patient Education 2022 [employer]. Follow Up Care 01/03/2023 22:32:55 With:Thony Carl Address: [address] [place] [address] [place] [address] Business (1) When:01/06/2023 Comments:Follow-up with your primary care provider in 3 to 5 days. If symptoms worsen, do not improve, or new symptoms arise please report back to emergency department for further evaluation. [facility]07-28-2023 Evaluation + Plan noteExtracted from: Title:ED Note Author:Hudson Riley PA-C te:01/03/23 Body aches (R52: Pain, unspe cified) (Z34.90: Encounter for supervision of normal , unspecified, unspecified trimester) Strep pharyngitis (J02.0: Streptococcal pharyngitis) Orders: cephalexin, 500 mg = 1 cap(s), Cap, Oral, Once, Stop date 01/03/23 23:45:00 EDT, STAT, Start date 01/03/23 23:45:00 EDT, 01/03/23 23:45:00 EDT cephalexin, 500 mg = 1 cap(s), Oral, q12hr, # 20 cap(s), Refills(s) 0, [facility], [facility], cm, 01/03/23 22:44:00 EDT, Height/Length Dosing, 75.3, kg, 01/03/23 22:44:00 EDT, Weight Dosing ondansetron, 4 mg = 1 tab(s), Oral, q8hr, PRN Nausea/Vomiting, # 12 tab(s), Refills(s) 0, [facility], cm, 01/03/23 22:44:00 EDT, Height/Length Dosing, 75.3, kg, 01/03/23 22:44:00 EDT, Weight Dosing ondansetron, 12 mg = 3 tab(s), Tab-Dis, Oral, Once, Stop date 01/03/23 23:45:00 EDT, STAT, Start date 01/03/23 23:45:00 EDT, 01/03/23 23:45:00 EDT Automated Diff Basic Metabolic Panel Beta hCG Quantitative CBC w/ Auto Diff eGFR Hepatic Function Panel Lipase Level [facility]04-19-2023 Evaluation note* Encounter Date Diagnosis Assessment [...] of symptoms occur by end of treatment. [employer] Other 03-31-2023 Hospital Discharge instructions Patient Education [...] Follow these instructions at home: Medicines Take emmk-zsb-eomnplb and prescription medicines only as told by [...] important. Where to find more information [employer]: www.acog.org [place] [...] 11/19/2001 Document Revised: 09/17/2019 Document Reviewed: 07/01/2017 Elsevier Patient Education 2020 [employer] Follow Up Care 09/06/2022 10:42:16 With:Juvenal THORPE Address: [address] , [place] [address]- Business (1) When:09/09/2022 13:46:05 [facility]03-09-2023 Hospital Discharge instructions Patient Education 08/14/2022 22:12:46 Abdominal Pain During , Xpaa-gt-Frdz Abdominal Pain During Belly (abdominal) pain is [...] keep your pee (urine) pale yellow. Take jfxf-piw-xiwafmz and prescription medicines only as told by [...] 05/14/2010 Document Revised: 09/13/2019 Document Reviewed: 08/28/2017 Elsevier Patient Education 2020 [employer] 08/14/2022 22:12:46 Abdominal Pain, Adult, Yumr-xz-Bxuu Abdominal Pain, Adult Many things can cause belly (abdominal) pain. Most times, belly pain is not dangerous. Many cases of belly pain can be watched and treated at home. Sometimes, though, belly pain is serious. Your doctor will try to find the cause of your belly pain. Follow these instructions at home: Medicines Take shay-dru-sgksjmw and prescription medicines only as told by [...] your belly pain for any changes. Take ywxz-mtu-aampozc and prescription medicines only as told by [...] 11/11/2008 Document Revised: 10/04/2019 Document Reviewed: 10/04/2019 [employer] Patient Education 2019 [employer]. Follow Up Care 08/14/2022 18:41:38 With:Juvenal THORPE Address: [address] [place] [address]- Business (1) When:08/17/2022 Comments:Follow-up with Dr. Thorpe for further evaluation of your . With:Juventino Carbajal Address: [address] [place] [address] [place] [address]- When:08/17/2022 Comments:Follow-up with your primary care provider in 3 to 5 days. If symptoms worsen, do not improve, or new symptoms arise please report back to emergency department for further evaluation. [facility]01-16-2023 Evaluation note* Encounter Date Diagnosis Assessment [...] return precautions. Jun, Cough (ICD-10 - R05.9) [employer] Other 06-07-2022 Evaluation note* Encounter Date Diagnosis [...] Pt understood and agreed to tx plan. [employer] Other [id number] Evaluation note* Encounter Date Diagnosis Assessment Notes [...] condition October, Sore throat (ICD-10 - J02.9) [employer] Other Evaluation + Plan note No data available for this section [facility] information available [facility] Work Phone: Evaluation noteNo InformationNort [employer] Other History general Narrative - Reported* Type Description Date Medical History fx lt elbow at age 7 Surgical History surgical repair of left elbow f racture at age 7 Hospitalization History see surgical hx [employer] Other Progress note No data available for this section [facility] Summary Purpose Family History No Family History Records FoundNo Family History Records FoundNo Family History Records Found No data available for this section No data available for this section No Family History Records FoundNo Family History Records FoundNo Family History Records Found No data available for this section Advance Directives Advance Directive Response Recorded Date/ Time Advance Directives No December 17 7:51pm Chief Complaint and Reason for Visit Chief Complaint sent by therapist Additional Source Comments REASON FOR VISIT (unrecogniz ed section and content) BA, DUMONT, CONGESTION, SORE THR OATPRODUCTIVE COUGHbody achesSORE THROAT, COUGHre-establish INFORMATION SOURCE (unrecogn ized section and content) DATE CREATED AUTHOR 01/05/2022 [facility] DATE CREATED AUTHOR AUTHOR'S ORGANIZ ATION 07/15/2022 [facility] DATE CREATED AUTHOR AUTHOR'S ORGANIZ ATION 10/10/2022 [facility] DATE CREATED AUTHOR AUTHOR'S ORGANIZ ATION 09/27/2023 [facility] DATE CREATED AUTHOR AUTHOR'S ORGANIZ ATION 12/26/2023 [facility] DATE CREATED AUTHOR AUTHOR'S ORGANIZ ATION 01/27/2024 [facility] [employer] Care Teams (unrecognized sec tion and content) Personnel Name: SELAM HUNTER CNP Address: Address: [facility] [place] [address], [place], [place] [address] Team Status: Active Member Role Status Dates [...] BE BASED ON THE PRIMARY CLINICAL RECORDS. [facility] [employer] provides no warranty or guarantee of the accuracy or completeness of information in this document.
--- NOTE | 2024-02-04 14:10 | US_ITS ---
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 TECHNIQUE: Ultrasound biophysical profile was performed in the radiology department. non-reactive stress testing was performed by nursing staff in the birthing center. FINDINGS: BREATHING MOVEMENTS: 2 GROSS BODY MOVEMENTS: 2 TONE: 2 QUALITATIVE AMNIOTIC FLUID VOLUME: 2 PRESENTATION: CEPHALIC HEART RATE: 167.70 bpm AMNIOTIC FLUID VOLUME: 134 cm GESTATIONAL AGE: 29w6d US/US OB BPP w non-stress IMPRESSION: Total biophysical profile score: 8 Electronically authenticated by: SOFIA KABA Date: 02/04/2024 15:02
[2024-02-04 14:43] VITALS: BP 105/59; PULSE 89
== END 2024-02-04 15:14 | disposition home or self-care (01) ==
LOC: US 06:59 → FBC 14:07
PROVIDERS: Visit Provider Obstetrics & Gynecology
DX: O43.119 Circumvallate placenta, unspecified trimester (principal); Z3A.29 29 weeks gestation of pregnancy
CPT/HCPCS: 76818

== ENCOUNTER 2024-02-07 06:51 | Outpatient (OUT) | payer OTHER, SELFPAY ==
--- OUTSIDE RECORDS SUMMARY | 2024-02-07 06:54 | XMS_ITS | CCD ---
Author Organization [facility] Care Team Providers Care Die Designer Apprentice Name Role Phone Kendra Witt Unavailable Michael Oneil Unavailable Unavailable Primary Care Provider JUAQUIN Amos Referring Unavailable MIRI, DR NEAL Consulting Unavailable REQUEST, NONE LISTED Primary Care Unavaila ble MIRI, DR NEAL Attending Unavailable MIRI, DR NEAL Admitting Unavailable REQUEST, NONE LISTED Primary Care Unavaila ble MIRI, DR NEAL Attending Unavailable MIRI, DR NEAL Admitting Unavailable KARASIK, DR YANEZ Consulting Unavailable REQUEST, NONE LISTED Primary Care Unavaila ble MIRI, DR NEAL Attending Unavailable MIRI, DR NEAL Admitting Unavailable MIRI, DR NEAL Consulting Unavailable REQUEST, NONE LISTED Primary Care Unavaila ble MIRI, DR NEAL Attending Unavailable MIRI, DR NEAL Admitting Unavailable MIRI, DR NEAL Consulting Unavailable REQUEST, NONE LISTED Primary Care Unavaila ble MIRI, DR NEAL Attending Unavailable MIRI, DR NEAL Admitting Unavailable MIRI, DR NEAL Consulting Unavailable REQUEST, DR NONE LISTED Primary Care Unavaila ble MIRI, DR NEAL Attending Unavailable MIRI, DR NEAL Admitting Unavailable ROSEANN CORRAL Consulting Unavailable REQUEST, NONE LISTED Primary Care Unavaila ble ROSEANN CORRAL Attending Unavailable ROSEANN CORRAL Admitting Unavailable KARASIK, DR YANEZ Consulting Unavailable MISC, DR SANDOVAL Primary Care Unavailable KARASIK, DR YANEZ Attending Unavailable KARASIK, DR YANEZ Admitting Unavailable ZIEBER, DR MARS Mccarthy Consulting Unavailable SALEM, DR SOFIA Hull Consulting Unavailable REQUEST, NONE LISTED Primary Care Unavaila ble MIRI, DR NEAL Attending Unavailable MIRI, DR NEAL Admitting Unavailable MIRI, DR NEAL Consulting Unavailable KARASIK, DR YANEZ Consulting Unavailable EVER, NONE LISTED Primary Care Unavaila berta THORPE, DR NEAL Attending Unavailable MIRI, DR NEAL Admitting Unavailable MIRI, DR NEAL Consulting Unavailable AGUBOSIMZAN Consulting Unavailable MIRI, DR NEAL Procedure Practitioner Unavailab ricardo KABA, DR SOFIA Hull Consulting Unavailable EVER, NONE LISTED Primary Care Unavaila berta THORPE, DR NEAL Attending Unavailable MIRI, DR NEAL Admitting Unavailable MIRI, DR NEAL Consulting Unavailable Viet Welch Unavailable NONE, XXXX Primary Care Physician Unavailab le NO FAMILY, PHYSICIAN Primary Care Provider Unava MD Jose Moody Emergency Provider [phone] Jose Silverman Attending Unavailable Jose Silverman Admitting Unavailable NO FAMILY, PHYSICIAN Primary Care Unavailable Kenneth Mills Unavailable SELAM HUNTER Primary Care Physician JUVENAL THORPE Referring Unavailable JUANITO PABLO Attending Unavailable JESSICA ALEJO Referring Unavailable JUVENAL THORPE Referring Unavailable JUVENAL THORPE Attending Unavailable GONSALO CORRAL Attending Unavailable JUVENAL THORPE Attending Unavailable GONSALO CORRAL Attending Unavailable JUVENAL THORPE Attending Unavailable SELAM HUNTER Primary Care Unavailable Siva Schulte Attending Unavailable SELAM HUNTER Primary Care Unavailable Wil Chandra Attending Unavailable SELAM HUNTER Primary Care Unavailable Emily Harper Attending Unavailable SELAM HUNTER Admitting Unavailable SELAM HUNTER Attending Unavailable Siva Schulte Attending Unavailable SELAM HUNTER Primary Care Unavailable Allergies Allergy Classification Reported Allergen(s) Allergy Type Date of Onset Reaction(s) Facility (1 source) No Known Medication Allergies; Translations: [No Known Medication Allergies] Propensity to adverse reactions (disorder) [facility] Repository Medications Current Medications Medication Drug [...] day(s), # 28 cap(s), Refills(s) 0, Pharmacy: [id number], 170, cm, 08/27/23 9:49:00 EDT, Height/Length Dosing, 78.7, kg, 08/27/23 9:49:00 EDT, Weight Dosing Start Date: 08/27/23 Stop Date: 09/03/23 Status: Ordered Start: 01-03-2023 take 1 capsule by [facility] every twelve hours Keflex 500 mg Cap 500 mg = 1 cap(s), Oral, q12hr, # 20 cap(s), Refills(s) 0, Pharmacy: [facility], 170, cm, 01/03/23 22:44:00 EDT, Height/Length Dosing, 75.3, kg, 01/03/23 22:44:00 EDT, Weight Dosing Start Date: 01/03/23 Status: Ordered Citalopram (2 sources) Serotonin Reuptake Inhibitor Citalopram Hydrobromide Active dexamethasone 1 mg/ml / neomycin 3.5 mg/ml / polymyxin b 84261 unt/ml ophthalmic suspension (2 sources) Aminoglycoside Antibacterial, Polymyxin-class Antibacterial, Corticosteroid Start: 09-26-19 take 1 drop(s) into the eye(s) four times daily Maxitrol 3.5-46193-7.1 1 drop into affected eye Ophthalmic Four times a day for 7 days Sep, Active ethinyl estradiol 0.02 mg / norethindrone acetate 1 mg oral tablet (6 sources) Estrogen Start: 04-10-20 Microgestin 1/20 20 [...] 3 hrs for 2 days Jun, Active [place] (No Known Home Meds) (1 source) Start: 06-26-2021 [place] (No Known Home Meds) Active June 26, [...] Nausea/Vomiting, # 12 tab(s), Refills(s) 0, Pharmacy: [facility], 170, cm, 01/03/23 22:44:00 EDT, Height/Length Dosing, 75.3, kg, 01/03/23 22:44:00 EDT, Weight Dosing Start Date: 01/03/23 Status: Ordered Start: 06-09-2019 take 1 tablet by faby th three times daily Zofran ODT 4 mg Tab-Dis 4 mg = 1 tab(s), Oral, TID, # 15 tab(s), Refills(s) 0, Pharmacy: [facility] Start Date: 06/09/19 Status: Ordered [...] take 450 mg by mouth twice daily Howe Carbonate Discontinued 450 MG PO Twice daily [...] Test Name Value Interpretation Reference Range Facility Grp A Strp PCRon 02-04-2024 Grp A Strp Intrl Ctrl Pass Normal [facility] Comment on above: Order Comment: Order Added on by Discern Rule. Performed By: #### 1 [id number] #### [facility] [address] [place] [address] S. pyogenes DNA ALFREDO+probe Ql (Throat) Negative Normal [facility] Comment on above: Order Comment: Order Added on by Discern Rule. Result Comment: Test ing performed using DNA amplification. Performed By: #### 1 [id number] #### [facility] [address] [place] [address] ED Clinical Summaryon 2023 ED Clinical Summary ED Clinical Summary [address] [address] ED Clinical Summary Person Information Name: KAILYN ACKERMAN [facility] Age: 23 Years : 2000 Sex: Female Language: Guatemalan PCP: SELAM HUNTER CNP Marital Status: Single Phone: [phone] MRN: [id number] Visit Id: Visit Reason: Headache; Body aches; Sinus Pain/Congestion; Throat pain - Adult; THROAT PAIN, HEADACHE, NAUSEA, BODY ACHES Speciality: Acuity: 4 Enc Type: Emergency Med Service: Emergency Arrival: 02/03/2024 09:21:41 Discharge: 02/03/2024 11:17:17 LOS: 000 01:56 Checkin: 02/03/2024 09:21:41 Checkout: 02/03/2024 11:17:17 Dispo Type: Home (Routine DC) EVENTS: Event Name Event Status Request Date/Time Start Date/Time Complete Date/Time Arrive Complete 02/03/2024 09:21:41 02/03/2024 09:21:41 02/03/2024 09:21:41 Document Home Meds Request 02/03/2024 09:21:41 Triage Complete 02/03/2024 09:21:41 02/03/2024 09:27:54 02/03/2024 09:27:54 Bed Assign Complete 02/03/2024 09:23:28 02/03/2024 09:23:28 02/03/2024 09:23:28 Dr Exam Complete 02/03/2024 09:23:28 02/03/2024 09:24:37 02/03/2024 09:24:37 RN Exam Complete 02/03/2024 09:23:28 02/03/2024 09:29:15 02/03/2024 09:29:15 Registration Complete 02/03/2024 09:24:37 02/03/2024 09:35:53 02/03/2024 09:35:53 Pending Labs Complete 02/03/2024 09:27:36 02/03/2024 10:36:46 Lab Complete 02/03/2024 09:27:36 02/03/2024 10:36:46 Patient Care Request 02/03/2024 09:27:54 Patient Isolation Request 02/03/2024 09:27:54 Pending Labs Cancel 02/03/2024 09:30:15 02/03/2024 09:33:14 Dr Exam Complete 02/03/2024 09:35:10 02/03/2024 09:35:10 02/03/2024 09:35:10 Reg Complete Request 02/03/2024 09:35:53 Reg Bed Request Complete 02/03/2024 09:35:53 02/03/2024 09:35:53 02/03/2024 09:35:53 Pending Labs Inlab 02/03/2024 10:54:13 Discharge Complete 02/03/2024 11:12:31 02/03/2024 11:17:23 02/03/2024 11:17:23 Transfer Complete 02/03/2024 11:17:23 02/03/2024 11:17:23 02/03/2024 11:17:23 ADDRESS: [address] [place] [phone] PHYS DOC NOTES: MEDICAL INFORMATION: Prescriptions Given: [...] Nausea/Vomiting. Refills: 0. PATIENT EDUCATION INFORMATION: Instructions: Upper Respiratory Infection, Adult Follow up: With: Address: When: Juvenal THORPE [facility], [address] [place] [address] [place] [address] Business (1) In 3 days 02/06/2024 With: Address: When: [place] [address] Business (1) In 3 days 02/06/2024 DIAGNOSIS: Sore throat; Viral URI Normal [facility] ED Note-Physicianon 02-03-20 ED Note-Physician ED Note-Physician Basic Information Time Seen: Duc Swanson PA-C 02/03/2024 09:24 Chief Complaint c/o throat pain, fatigue, body aches, headaches, congestion that started last night. states was around covid over the weekend, coworker tested positive this morning. states gets strep often as well. 30 weeks sees miri History of Present Illness Patient is a 23-year-old 30-week female presents today for evaluation of her sore throat, body aches, headache, congestion that started last night. She states that she was around people over the weekend who had COVID and one of her coworkers just tested positive this morning. She states that she is concerned that she probably has COVID. She denies any cough. She does state that she sees OB every week and follows with Dr. Thorpe due to circumvallate placenta and small subchorionic hemorrhage. She states that she used to get strep often when she was younger but was told that she is likely just a carrier because it always comes back positive even if she has no symptoms. She denies any fevers. She denies any chest pain, shortness of breath, dyspnea, abdominal pain. Review of Systems No other aggravating or relieving factors no other associated symptoms no other prior treatments or complaints. Family: Reviewed and noncontributory Social: lives at home Review of systems negative unless otherwise specified in the HPI. Physical Exam Vitals & Measurements T: 36.6 ?C(Oral) HR: 85(Peripheral) RR: 18 BP: 106/70 SpO2: 99% HT: 170 cm WT: 77.4 kg BMI: 26.78 Nurse's notes and vital signs reviewed. General: Alert, no acute distress, patient resting comfortably Patient is not toxic or lethargic. Skin: Warm, intact, no pallor noted. There is no evidence of rash at this time. Head: Normocephalic, atraumatic Eye: Normal conjunctiva Ears, Nose, Throat: Moist mucous membranes. No posterior pharyngeal erythema no exudate swelling shift or mass. No trisumus no stridor. Tympanic membranes unremarkable bilaterally no injection erythema no posterior effusions perforation or pus. Neck: No meningeal signs. Cardio: Regular Rate and Rhythm with normal peripheral perfusion Respiratory: No acute distress, no stridor, no retractions. CTA bilaterally. Abdomen: Soft, nontender, no masses detected. No rebound, guarding, or rigidity Neurological: Appropriate for age Psychiatric: Cooperative Procedure [x] The patient was diagnosed with upper respiratory infection and was not prescribed an antibiotic. [SATISFIES MIPS PERFORMANCE] [ ] The patient has competing comorbid condition within the last 12 months. The comorbid condition was [] (e.g., neutropenia, cystic fibrosis, chronic bronchitis, pulmonary edema, respiratory failure, rheumatoid lung disease). [MIPS PERFORMANCE EXCEPTION/EXCLUSIO N [ ] The patient is already on antibiotics, or has taken them within the last 30 days. [MIPS PERFORMANCE EXCEPTION/EXCLUSIO N] [ ] The patient had a competing diagnosis of [] (e.g. acute otitis media, chronic sinusitis, UTI, etc.) [MIPS PERFORMANCE EXCEPTION/EXCLUSIO N] [ ] The patient was diagnosed with upper respiratory infection and was prescribed or dispensed an antibiotic. [DOES NOT SATISFY MIPS PERFORMANCE] Medical Decision Making Patient is a 23-year-old 30-week female presents today for evaluation of her sore throat, body aches, headache, congestion that started last night. She was exposed to COVID over the weekend and at work. She sees OB every week with Dr. Thorpe due to circumvallate placenta and small subchorionic hemorrhage. She is scheduled to have an ultrasound done tomorrow. She denies any other systemic signs or symptoms. On exam the patient is afebrile and nontoxic-appearing . 99% saturation on room air. CTA to bilateral lung garland. RRR. No posterior pharyngeal erythema. Tympanic membranes are unremarkable bilaterally. Given the concern for COVID exposure we did perform a COVID test that was negative. She also has a history of strep throat and therefore tested her for this in the ED. She did not want to wait for the results so she left prior to the strep result. Rapid strep is negative and patient was called with the results of this. We discussed that she likely has a viral URI and will continue to follow-up with OIL HEATER INSTALLER for further evaluation and management. We discussed that if she has worsening symptoms or new symptoms that she should promptly return to the ED for reevaluation. Return to ED precautions were reviewed with the patient at length. Assessment/Plan Sore throat (J02.9: Acute pharyngitis, unspecified) Viral URI (J06.9: Acute upper respiratory infection, unspecified) Orders: Group A Strep by PCR Rapid Strep w/rfx Disposition Plan Patient Discharge Condition Stable Discharge Disposition Home Discharge Prescription List Prescriptions No active prescription medications Follow-up With When Contact Information Juvenal THORPE In 3 days 02/06/2024 (more content not included)... Normal [facility] Comment on above: Result Comment: Elec tronically Signed By: Duc Swanson PA-C\.br\Date and Time Signed: 02/03/24 13:23 EDT\.br\Electronically Co-Signed By: Siva Schulte DO\.br\Date and Time Co-Signed: 02/03/24 14:44 EDT ED Patient Summaryon 024 ED Patient Summary ED Patient Summary [place] [address] Patient Discharge Instructions Person Information Name: KAILYN ACKERMAN Age: 23 Years Arrival Date: 02/03/2024 09:21:41 Discharge Diagnosis: Sore throat; Viral URI Primary Care Physician: SELAM HUNTER CNP Provider Information Primary Provider: Siva Schulte DO [employer] Furnace Operator:Duc Swanson PA-C The exam and treatment you received in the Emergency Department were for an urgent problem and are not intended as complete care. It is important that you follow up with a doctor, nurse practitioner, or physician?s ambulance assistant for ongoing care. If your symptoms [...] Follow-up Instructions: With: Address: When: Juvenal THORPE [facility], [address] [place] [address] [place] [address] Business (1) In 3 days 02/06/2024 With: Address: When: SELAM HUNTER [address] [place], [place] [address] [address] Business (1) In 3 days 02/06/2024 In the event that this physician does not participate in your insurance network, please consult with your insurance company to find a nearby participating provider. Patient Education Materials: Upper Respiratory Infection, Adult A MESSAGE TO ALL PATIENTS REGARDING OPIOIDS PRESCRIPTION OPIOIDS: WHAT YOU NEED TO KNOW Prescription opioids can be used to help relieve vmifywsp-mf-kglnzl pain and are often prescribed following a [...] erdose to learn about the risks of op (more content not included)... Normal [facility] MICRO OTHER TESTSOrdered By: Nita Delgadillo on 02-03-2024 S. pyogenes Ag IA.rapid Ql (Throat) Negative (02/03/24 11:07 AM) Normal Negative [facility] MICRO OTHER TESTSOrdered By: Asuncion Goncalves on 02-03-2024 Rapid COV Int NEG Ctl Pass (02/03/24 9:30 AM) Normal [facility] Rapid COV Int POS Ctl Pass (02/03/24 9:30 AM) Normal [facility] SARS-CoV+SARS-CoV-2 (COVID-19) Ag IA.rapid Ql (Resp) Not Detected 1 (02/03/24 9:30 AM) Normal Not Detected [facility] Comment on above: Interpretive Data: [employer] Helidyne Veritor System for Rapid Detection of SARS-CoV-2 [...] other viruses or pathogens; and, in the [place], this test is only authorized for the duration of the declaration that circumstances exist justifying the authorization of emergency use of in vitro diagnostics for detection and/or diagnosis of the virus that causes COVID-19 under Section 564(b)(1) of the Act, 21 U.S.C. 360bbb-3(b)(1), unless the authorization is terminated or revoked sooner. Rapid COVID Antigen (MC)on 02-03-2024 Rapid COV Int NEG Ctl Pass Normal [facility] Comment on above: Performed By: #### 2 [id number] #### [facility] [address] [place] [address] Rapid COV Int POS Ctl Pass Normal [facility] Comment on above: Performed By: #### 2 [id number] #### [facility] [address] [place] [address] SARS-CoV+SARS-CoV-2 (COVID-19) Ag IA.rapid Ql (Resp) Not detected Normal Not Detected [facility] Comment on above: Result Comment: The Helidyne Veritor? System for Rapid Detection of SARS-CoV-2 is [...] be considered in the context of a patient?s recent exposures, history and the presence of [...] laboratories certified under the CLIA, 42 U.S.C. ?263a, that meet requirements to perform moderate, high, or waived complexity tests and at the Point of Care (POC), i.e., in patient care settings operating under a CLIA Certificate of Waiver, Certificate of Compliance, or Certificate of Accreditation. This test has been authorized only for the detection of proteins from SARS-CoV-2, not for any other viruses or pathogens; and, in the [facility], this test is only authorized for the duration of the declaration that circumstances exist justifying the authorization of emergency use of in vitro diagnostics for detection and/or diagnosis of the virus that causes COVID-19 under Section 564(b)(1) of the Act, 21 U.S.C. ? 360bbb-3(b)(1), unless the authorization is terminated or revoked sooner. Performed By: #### 2 [id number] #### [facility] [address] [place] [address] Rapid Strep w/rfxon 02-03-20 24 S. pyogenes Ag IA.rapid Ql (Throat) Negative Normal Negative [facility] Comment on above: Performed By: #### 2 [id number] #### [facility] [address] [place] [address] ED Note-Physicianon 09-26-19 24 ED Note-Physician Basic Information Time Seen: Venkat [...] than 90,000. Ultrasound was obtained discussed with overhead crane technician. Intrauterine consistent with stated gestational age. Stable heart rate. Patient continues to demonstrate subchorionic hematoma. Also left-sided ovarian cyst similar to previous. Results were discussed with the patient. She is discharged home to continue pelvic rest and follow-up with OIL HEATER INSTALLER. Patient was encouraged to return to the [...] Juvenal THORPE In 3 days 09/26/[address] , [place] [address]- Business (1) Additional Instructions: Patient Education Subchorionic [...] made to ensure accuracy, however, inadvertently computerized microbiology teacher mistakes may be present. Appropriate healthcare PPE [...] Yes., 04/10/2019 Lab Results Beta hCG Qnt: 67643 mIU/mL High (09/23/23 09:28:00) Diagnostic Results No qualifying data available. Normal [facility] Comment on above: Result Comment: Elec tronically Signed By: Mandie CHUNG, Venkat\.br\Date and Time Signed: 09/23/23 11:45 EDT\.br\Electronically Co-Signed By: Wil Chandra DO\.br\Date and Time Co-Signed: 09/26/23 07:37 EDT [facility] 09-23-20[place] [address] m[IU]/mL High 1-[address] [facility] Comment on above: Result Comment: 'F N ON < 1 - 3' ' 0.2 - 1 WEEK = 5 TO 50' ' 1 - 2 WEEKS = 50 - 500' ' 2 - 3 WEEKS = 100 - 5000' ' 3 - 4 WEEKS = 500 - 11073' ' 4 - 5 WEEKS = 1000 - 75043' ' 5 - 6 WEEKS = 01741 - 158336' ' 6 - 8 WEEKS = 36606 - 909440' ' 8 - 12 WEEKS = 22845 - 679546' Performed By: #### 2 [id number] ####[place] [address] [place] [address] CHEMISTRYOrdered By: SYSTEM SYSTEM on 09-23-2023 [place] [address] m[IU]/mL High 1 - 3 mIU/mL [facility] Comment on above: Result Comment: 'F N ON < 1 - 3' ' 0.2 - 1 WEEK = 5 TO 50' ' 1 - 2 WEEKS = 50 - 500' ' 2 - 3 WEEKS = 100 - 5000' ' 3 - 4 WEEKS = 500 - 57401' ' 4 - 5 WEEKS = 1000 - 44899' ' 5 - 6 WEEKS = 95884 - 260172' ' 6 - 8 WEEKS = 64652 - 959084' ' 8 - 12 WEEKS = 26302 - 572082' Consent for Treatmenton 09-07 Consent for Treatment [id number] Normal [facility] Discharge Instructionson Discharge Instructions [id number] Normal [facility] ED Clinical Summaryon 2023 ED Clinical Summary [address] [address] ED Clinical Summary Person Information Name: KAILYN ACKERMAN [place] Age: 23 Years : 2000 Sex: Female Language: Guatemalan PCP: NONE, XXXX Marital Status: Single Phone: [phone] MRN: Visit Id: Visit Reason: Back pain; [...] 09/23/2023 11:52:16 09/23/2023 11:52:16 09/23/2023 11:52:16 ADDRESS: [address] [place] [id number] PHYS DOC NOTES: MEDICAL INFORMATION: Prescriptions Given: [...] Hematoma Follow up: With: Address: When: Juvenal MIRI [facility], [address] [place] [address] [place] [address] Business (1) In 3 days 09/26/2023 DIAGNOSIS: Other antepartum hemorrhage, unspecified trimester; Subchorionic bleed; Vaginal bleeding in Normal [facility] ED Patient Education Noteon 09-23-2023 ED [...] provider. Document Revised: 02/19/2021 Document Reviewed: 02/19/2021 [employer] Patient Education ? 2022 [employer] Normal [facility] ED Patient Summaryon 024 ED Patient Summary [address] [address] Patient Discharge Instructions Person Information Name: TYRON KAILYN Gordon Age: 23 Years Arrival Date: 09/23/2023 09:10:07 Discharge Diagnosis: Other antepartum hemorrhage, unspecified trimester; Subchorionic bleed; Vaginal bleeding in Primary Care Physician: NONE, XXXX Provider Information Primary Provider: Wil Chandra DO [employer] Operator:Venkat Leal PA-C The exam and treatment you received in the Emergency Department were for an urgent problem and are not intended as complete care. It is important that you follow up with a doctor, nurse practitioner, or physician?s ambulance assistant for ongoing care. If your symptoms [...] Follow-up Instructions: With: Address: When: Juvenal THORPE [facility], [address] [place] [address] , [place] [address] Business (1) In 3 days 09/26/2023 In the event that this physician does not participate in your insurance network, please consult with your insurance company to find a nearby participating provider. Patient Education Materials: Subchorionic Hematoma A MESSAGE TO ALL PATIENTS REGARDING OPIOIDS PRESCRIPTION OPIOIDS: WHAT YOU NEED TO KNOW Prescription opioids can be used to help relieve wlwzocji-ej-srekrn pain and are often prescribed following a [...] health care p (more content not included)... [facility] Prescriptions/Work Noteson 0 09-23-2023 Prescriptions/Work Notes [id number] [facility] US 1st Trimesteron 09-23-2023 US 1st Trimester [...] least 66% of the gestational sac circumference. Coleta Rump Length: 3.2 cm, which corresponds Composite [...] Size = Dates Uterus Position Anteverted Normal [facility] C Urineon 08-29-2023 Bacteria identified Cx [...] Locations R1: This test was performed at: [facility], [address] [place] [address], [address] , , Normal [facility] Comment on above: Performed By: #### 4 [id number] ####[facility] [id number] [place] [address] ABO/Rhon 08-27-2023 ABO/Rh Positive Invalid Interpretation Code [facility] Comment on above: Performed By: #### 2 [id number] ####[facility] [address] [place] [address] BLOOD BANKOrdered By: Liza Xavier on 08-27-2023 ABO/Rh Interp Positive Invalid Interpretation Code [facility] BB Subsection BMPon 08-27-2023 Anion gap [Moles/Vol] 11 mmol/L Normal 6-16 [facility] Comment on above: Performed By: #### 1 [id number], 5807472, 1206741 ####[facility] [address] [place] [address] Calcium [Mass/Vol] 9.3 mg/dL Normal 8.9-11.1 [facility] Comment on above: Performed By: #### 1 [id number], 0293237, 8376430 ####[facility] [address] [place] [address] Chloride [Moles/Vol] 104 mmol/L Normal 101-111 [facility] Comment on above: Performed By: #### 1 [id number], 0034865, 6325018 ####[facility] [address] [place] [address] CO2 [Moles/Vol] 24 mmol/L Normal 21-31 [facility] Comment on above: Performed By: #### 1 9998870, 3206762, 1075765 ####[facility] [address] [place] [address] Creatinine [Mass/Vol] 0.6 mg/dL Normal 0.5-1.3 [facility] Comment on above: Performed By: #### 1 6975235, 5128552, 5795611 ####[facility] [address] [place] [address] Glucose [Mass/Vol] 87 mg/dL Normal 55-199 [facility] Comment on above: Performed By: #### 1 6230479, 9506478, 7289247 ####[facility] [address] [place] [address] Potassium [Moles/Vol] 3.7 mmol/L Normal 3.5-5.3 [facility] Comment on above: Performed By: #### 1 3656590, 4146556, 9101203 ####[facility] [address] [place] [address] Sodium [Moles/Vol] 135 mmol/L Normal 135-145 [facility] Comment on above: Performed By: #### 1 9973690, 1038369, 1231056 ####[facility] [address] [place] [address] Urea nitrogen [Mass/Vol] 8 mg/dL Normal 5-21 [facility] Comment on above: Performed By: #### 1 3406965, 3857727, 1569821 ####[address] [address] Urea nitrogen/Creatinine [Mass ratio] 13 No Units Normal 10-20 [facility] Comment on above: Performed By: #### 1 9266928, 9217368, 6209220 ####[address] [address] BhCG Quanton 08-27-2023 [place] [address] m[IU]/mL High 1-[address] [facility] Comment on above: Result Comment: 'F N ON < 1 - 3' ' 0.2 - 1 WEEK = 5 TO 50' ' 1 - 2 WEEKS = 50 - 500' ' 2 - 3 WEEKS = 100 - 5000' ' 3 - 4 WEEKS = 500 - 02797' ' 4 - 5 WEEKS = 1000 - 54034' ' 5 - 6 WEEKS = 58523 - 722184' ' 6 - 8 WEEKS = 61122 - 122524' ' 8 - 12 WEEKS = 09982 - 127339' Performed By: #### 2 742759 ####[facility] [address] [place] [address] CBC w/ Auto Diffon 4 Basophils/100 WBC (Bld) 0.6 % Normal 0.0-2.[address] [facility] Comment on above: Performed By: #### 1 9292180, 8082097, 1131624 ####[facility] [address] [place] [address] Basophils/Leukocytes Auto (Bld) [Pure # fraction] 0.0 E9/L Normal 0.0-0.2 [facility] Comment on above: Performed By: #### 1 2008512, 5181868, 7867917 ####[address] [address] Eosinophils (Bld) [#/Vol] 0.1 E9/L Normal 0.0-0.5 [facility] Comment on above: Performed By: #### 1 9833015, 7454212, 5996970 ####[address] [address] Eosinophils/100 WBC (Bld) 2.0 % Normal 0.0-8.0 [facility] Comment on above: Performed By: #### 1 1800090, 8160127, 9483251 ####[address] [address] Erythrocyte distribution width (RBC) [Ratio] 15.0 % High 10.9-14.2 [facility] Comment on above: Performed By: #### 1 5478146, 5597422, 7527741 ####[address] [address] Hematocrit (Bld) [Volume fraction] 37.4 % Normal 34.0-46.0 [facility] Comment on above: Performed By: #### 1 2247488, 6933985, 7516355 ####[address] [address] Hemoglobin (Bld) [Mass/Vol] 12.7 g/dL Normal 12.0-16.0 [facility] Comment on above: Performed By: #### 1 9055021, 6916857, 3150327 ####[address] [address] Lymphocytes (Bld) [#/Vol] 2.0 E9/L Normal 1.0-4.0 [facility] Comment on above: Performed By: #### 1 4446903, 1414671, 9093543 ####[address] [address] Lymphocytes/100 WBC (Bld) 28.1 % Normal 14.0-50.0 [facility] Comment on above: Performed By: #### 1 5881044, 9325104, 9504099 ####[address] [address] MCH (RBC) [Entitic mass] 28.4 pg Normal 27.0-34.0 [facility] Comment on above: Performed By: #### 1 7859622, 8267690, 3645396 ####[place] [address] MCHC (RBC) [Mass/Vol] 33.8 g/dL Normal 31.4-36.0 [facility] Comment on above: Performed By: #### 1 1074110, 7113686, 6631071 ####[place] [address] MCV (RBC) [Entitic vol] 84.0 fL Normal 80.0-100.[address] [facility] Comment on above: Performed By: #### 1 9819076, 8730772, 7014253 ####[address] [address] Monocytes (Bld) [#/Vol] 0.5 E9/L Normal 0.2-1.[address] [facility] Comment on above: Performed By: #### 1 8493172, 3040900, 8432426 ####[address] [address] Neutrophils (Bld) [#/Vol] 4.5 E9/L Normal 2.0-7.5 [facility] Comment on above: Performed By: #### 1 8619746, 7827605, 7533450 ####[address] [address] Neutrophils/100 WBC (Bld) 61.9 % Normal 36.0-75.0 [facility] Comment on above: Performed By: #### 1 3373553, 9246071, 5797691 ####[address] [address] Platelet mean volume (Bld) [Entitic vol] 7.9 fL Normal 6.4-10.8 [facility] Comment on above: Performed By: #### 1 8481736, 0524308, 4733078 ####[facility] [address] [place] [address] Platelets (Bld) [#/Vol] 252.0 E9/L Normal 150.0-500.0 [facility] Comment on above: Performed By: #### 1 6160032, 7975231, 5753161 ####[facility] [address] [place] [address] RBC (Bld) [#/Vol] 4.5 E12/L Normal 4.3-5.9 [facility] Comment on above: Performed By: #### 1 6298615, 3685541, 4474823 ####[place] [address] [place] [address] WBC corrected for nucl RBC Auto (Bld) [#/Vol] 7.2 E9/L Normal 4.0-11.0 [facility] Comment on above: Performed By: #### 1 2951378, 7473566, 8125870 ####[facility] [address] [place] [address] CHEMISTRYOrdered By: SYSTEM SYSTEM on 08-27-2023 Anion [...] 199 mg/[place] [address] m[IU]/mL High 1 - 3 mIU/mL [facility] Comment on above: Result Comment: 'F N ON < 1 - 3' ' 0.2 - 1 WEEK = 5 TO 50' ' 1 - 2 WEEKS = 50 - 500' ' 2 - 3 WEEKS = 100 - 5000' ' 3 - 4 WEEKS = 500 - 92170' ' 4 - 5 WEEKS = 1000 - 23706' ' 5 - 6 WEEKS = 88065 - 582326' ' 6 - 8 WEEKS = 26199 - 510558' ' 8 - 12 WEEKS = 56479 - 851702' Potassium [Moles/Vol] 3.7 mmol/L Normal 3.5 - 5.3 mmol/L [facility] Sodium [Moles/Vol] 135 mmol/L Normal 135 - 145 mmol/L [facility] Urea nitrogen [Mass/Vol] 8 mg/dL Normal 5 - 21 mg/d L [facility] Urea nitrogen/Creatinine [Mass ratio] 13 mg/mg Normal 10 - 20 [facility] Consent for Treatmenton 08-08 Consent for Treatment [id number] Normal [facility] Discharge Instructionson Discharge Instructions [id number] Normal [facility] ED Clinical Summaryon 2023 ED Clinical Summary [place] [id number] ED Clinical Summary Person Information Name: KAILYN ACKERMAN [facility] Age: 22 Years : 2000 Sex: Female Language: Guatemalan PCP: SELAM HUNTER CNP Marital Status: Single Phone: [phone] MRN: Visit Id: Visit Reason: Vaginal bleeding [...] 08/27/2023 12:34:16 08/27/2023 12:34:16 08/27/2023 12:34:16 ADDRESS: [address] [place] [id number] PHYS DOC NOTES: MEDICAL INFORMATION: Prescriptions Given: Medications to Continue Taking That Have Changed [facility], [address] [place], [place] [id number], [phone] START: cephalexin (Keflex 500 mg Cap) 1 [...] Urinary Tract Infection; Urinary Tract Infection, Adult, Lgkd-oi-Odpq; Subchorionic Hematoma Follow up: With: Address: When: Juvenal THORPE [facility], [address] [place] [address] Business (1) In 3 days 08/30/2023 With: Address: When: SELAM HUNTER [address] [place] [address] Business (1) In 3 days DIAGNOSIS: Other antepartum hemorrhage, unspecified trimester; Subchorionic bleed; UTI (urinary tract infection) during ; Vaginal bleeding in Normal [facility] ED Note-Physicianon 08-27-19 ED Note-Physician Basic [...] and Complexity of Problems Differential Diagnosis: [] [facility] Data External documents reviewed: [] [...] day(s), # 28 cap(s), Refills(s) 0, Pharmacy: [facility], 170, cm, 08/27/23 9:49:00 EDT, Height/Length [...] Juvenal THORPE In 3 days 08/30/[address] , [place] [address]- Business (1) Additional Instructions: SELAM HUNTER In 3 days [facility] [place] [address]- Business (1) Additional Instructions: Patient Education and Urinary Tract Infection Urinary Tract Infection, Adult, Cvre-ix-Agxu Subchorionic Hematoma Attestation Patient seen and evaluated by the physician ambulance assistant. Attending physician was present in the emergency department and s (more content not included)... Normal [facility] Comment on above: Result Comment: Elec [...] provider. Document Revised: 01/09/2022 Document Reviewed: 01/09/2022 [employer] Patient Education ? 2022 [employer] Urinary Tract Infection, Adult A urinary tract [...] swelling (inflammation) (more content not included)... Normal [facility] ED Patient Summaryon 024 ED Patient Summary [place] [id number] Patient Discharge Instructions Person Information Name: KAILYN ACKERMAN Age: 22 Years Arrival Date: 08/27/2023 09:37:12 Discharge Diagnosis: Other antepartum hemorrhage, unspecified trimester; Subchorionic bleed; UTI (urinary tract infection) during ; Vaginal bleeding in Primary Care Physician: SELAM HUNTER CNP Provider Information Primary Provider: Emily Harper M.D. [employer] Operator:None The exam and treatment you received in the Emergency Department were for an urgent problem and are not intended as complete care. It is important that you follow up with a doctor, nurse practitioner, or physician?s ambulance assistant for ongoing care. If your symptoms become worse or you do not improve as expected and you are unable to reach your usual health care provider, you should return to the Emergency Department. We are available 24 hours a day. KAILYN ACKERMAN has been given the following list of patient education materials, prescriptions and follow-up instructions: Follow-up Instructions: With: Address: When: Juvenal [facility], [address] [place] [address] [place] [phone] Business (1) In 3 days 08/30/2023 With: Address: When: SELAM HUNTER [address] [place] [address] [facility] [place] [phone] Business (1) In 3 days In the event that this physician does not participate in your insurance network, please consult with your insurance company to find a nearby participating provider. Patient Education Materials: and Urinary Tract Infection; Urinary Tract Infection, Adult, Olvk-io-Ersg; Subchorionic Hematoma A MESSAGE TO ALL PATIENTS REGARDING OPIOIDS PRESCRIPTION OPIOIDS: WHAT YOU NEED TO KNOW Prescription opioids can be used to help relieve msucmigo-ph-lpblyj pain and are often prescribed following a [...] toilet, follo (more content not included)... Normal [facility] HEMATOLOGYOrdered By: SYSTEM SYSTEM on 08-27-2023 [...] Rflxon 08-27-19 Color (U) Light-Yellow Normal Yellow [facility] Comment on above: Result Comment: Micr oscopic readings are only performed on those samples that meet specific criteria set forth by [facility]. Performed By: #### 4 [id number], [id number] ####[place] [address] [place] [address] Glucose (U) [Mass/Vol] Negative Normal Negative [facility] Comment on above: Performed By: #### 4 [id number], 5086065 ####[facility] [address] [place] [address] Ketones Ql (U) Negative Normal Negative [facility] Comment on above: Performed By: #### 4 [id number], 9751248 ####[facility] [address] [place] [address] UA Blood 3+ Abnormal Negative [facility] Comment on above: Performed By: #### 4 888896891, 3921422 ####[facility] [address] [place] [address] UA Bacteria 1+ [id number] Abnormal Trace [facility] Comment on above: Performed By: #### 4 [id number], 4048363 ####[facility] [address] [place] [address] UA Clarity Turbid Abnormal Clear [facility] Comment on above: Performed By: #### 4 [id number], 6100026 ####[facility] [address] [place] [address] UA Hyal Cast 0-3 Normal 0-3 [facility] Comment on above: Performed By: #### 4 [id number], 6111562 ####[facility] [address] [facility] [place] [address] UA Leuk Est 250 Stefania/uL Abnormal Negative [facility] Comment on above: Performed By: #### 4 [id number], 1381948 ####[facility] [address] [facility] [place] [address] UA Mucous Trace Normal Negative [facility] Comment on above: Performed By: #### 4 [id number], 5068150 ####[facility] [address] [facility] [place] [address] UA Nitrite Negative Normal Negative [facility] Comment on above: Performed By: #### 4 [id number], 2595780 ####[facility] [address] [place] [address], [place] [address] UA pH 5.5 Invalid Interpretation Code 5.0-9.0 [facility] Comment on above: Performed By: #### 4 112492453, 8743788 ####[facility] [address] [facility] [place] [address] UA Protein 1+ mg/dL Abnormal Negative [facility] Comment on above: Performed By: #### 4 [id number], 4721499 ####[facility] [address] [facility] [place] [address] UA RBC 4-20 Abnormal 0-3 [facility] Comment on above: Performed By: #### 4 [id number], 5741086 ####[facility] [address] [facility] [place] [address] UA Spec Grav 1.018 Invalid Interpretation Code 1.005-1.030 [facility] Comment on above: Performed By: #### 4 [id number], 4347743 ####[facility] [address] [facility] [place] [address] UA Squam Epithelial 3-4 Abnormal 0-2 [facility] Comment on above: Performed By: #### 4 879731783, 9025424 ####[facility] [address] [place] [address] UA Urobilinogen Negative Normal Negative [facility] Comment on above: Performed By: #### 4 146605042, 2598750 ####[facility] [address] [place] [address] UA WBC 6-15 Abnormal 0-5 [facility] Comment on above: Performed By: #### 4 [id number], 5009620 ####[facility] [address] [place] [address] Urobilinogen (U) [Mass/Vol] Negative Normal Negative [facility] Comment on above: Performed By: #### 4 [id number], 5118852 ####[facility] [address] [place] [address] UA Spec Desc Clean Catch Normal [facility] Comment on above: Performed By: #### 4 [id number], 9473841 ####[facility] [address] [place] [address] URINALYSISOrdered By: SYSTEM SYSTEM on 08-27-2023 Color (U) Light-Yellow 1 (08/27/23 9:55 AM) Normal Yellow [facility] UA Auto SS Comment on above: Interpretive Data: M icroscopic readings are only performed on those samples that meet specific criteria set forth by [facility]. Glucose (U) [Mass/Vol] Negative Normal Negat ivemg/d L FT UA Auto SS Ketones Ql (U) Negative Normal Negativemg/d L FT UA Auto SS UA Bacteria 1+ graded/HPF [...] Urobilinogen (U) [Mass/Vol] Negative Normal Negativemg/d L [facility] UA Auto SS URINALYSISOrdered By: Hudson munoz on 08-27-2023 UA Spec Desc Clean Catch (08/27/23 9:55 AM) Normal [facility] UA Auto SS US 1st Trimesteron 08-27-2023 US 1st Trimester Exam Date/Time: 08/27/2023 11:54 EDT Reason for Exam: Other (please specify) Report [facility] [id number] IMPRESSION: Single live intrauterine with estimated sonographic [...] heart rate is measured at 120 bpm. Coleta-rump length 4.77 mm. Estimated sonographic gestational age [...] Riley FINAL REPORT Dictated: 08/27/2023 12:31 pm Zahc Deng MD Signed (Electronic Signature): 08/27/2023 12:31 pm Signed by: Zach Deng MD Transcribed by: KIRK Technologist: SHELLEY Technical Comments LMP : 07/10/2023 Regular History 4 Para 1 Transabdominal Ultrasound Performed Transvaginal Ultrasound Performed FHR (bpm) 120 Normal [facility] US Transvaginalon 08-27-2023 US Transvaginal Exam Date/Time: 08/27/2023 11:55 EDT Reason for Exam: Other (please specify) Report [facility] [id number] Please see ultrasound pelvis, for report of transvaginal examination. Ordering Provider: Hudson Riley FINAL REPORT Dictated: 08/27/2023 12:33 pm Zach Deng MD Signed (Electronic Signature): 08/27/2023 12:33 pm Signed by: Zach Deng MD Transcribed by: KIRK Technologist: SHELLEY Normal [facility] eGFRon 08-27-2023 eGFR 131 mL/min/1.73 m2 Normal >=59 [facility] Comment on above: Order Comment: Order added by Discern Expert. Performed By: #### 1 [id number], 5013608, 4132649 ####[facility] [address] [place] [address] [facility] Quanton 08-19-2023 HCG[place]beta subunit Qn 4261 m[IU]/mL High 1-3 [facility] Comment on above: Result Comment: 'F N ON < 1 - 3' ' 0.2 - 1 WEEK = 5 TO 50' ' 1 - 2 WEEKS = 50 - 500' ' 2 - 3 WEEKS = 100 - 5000' ' 3 - 4 WEEKS = 500 - 25150' ' 4 - 5 WEEKS = 1000 - 45830' ' 5 - 6 WEEKS = 82360 - 324503' ' 6 - 8 WEEKS = 55548 - 784191' ' 8 - 12 WEEKS = 64283 - 848930' Performed By: #### 2 [id number] ####[facility] [address] [place] [address] Physician Orderon 08-19-2023 Physician Order [id number] Normal [facility] CHEMISTRYOrdered By: Juancho benitez on 01-03-2023 Albumin [Mass/Vol] 3.9 g/dL Normal 3.3 - 5.0 gm/dL [facility] Remisol Albumin/Globulin [Mass ratio] 1.3 {ratio} Normal [...] 145 mmol/L FT Remisol Urea nitrogen [Mass/Vol] 10 mg/dL Normal 5 - 21 mg/d L [facility] Remisol Urea nitrogen/Creatinine [Mass ratio] 12 mg/mg Normal 10 - 20 [facility] Remisol CHEMISTRYOrdered By: SYSTEM SYSTEM on 01-03-2023 GFR/1.73 sq M.predicted among non-blacks MDRD (S/P/Bld) [Vol rate/Area] 108 mL/min/1.73 m2 Normal >=59mL/min/1 .73 m2 [facility] Chem S HCG.beta subunit Qn 1572 m[IU]/mL High 1 - 3 mIU/mL FT Remisol HEMATOLOGYOrdered By: SYSTEM SYSTEM on 01-03-2023 Basophils/100 WBC (Bld) 0.3 % Normal 0.0 - 2.0 % [facility] HemeAutoSS Basophils/Leukocytes Auto (Bld) [Pure # fraction] 0.1 E9/L Normal 0.0 - 0.2 E9/L FT HemeAutoSS Eosinophils/100 WBC (Bld) 0.3 % Normal [...] 16.9 E9/L High 4.0 - 11.0 E9/L [facility] HemeAutoSS Laboratory - Microbiology an d Antimicrobial susceptibilityOrdered By: Asuncion Goncalves on 01-03-2023 Bacteria identified Cx Nom (U) No growth to date Continuing incubation [facility] MICRO OTHER TESTSOrdered By: Juancho Fitch on 01-03-2023 S. pyogenes Ag IA.rapid Ql (Throat) Positive *ABN* (01/03/23 10:52 PM) Invalid Interpretation Code Negative [facility] Sero SEROLOGYOrdered By: Juancho mullins on 01-03-2023 HCG.beta subunit (U) [Moles/Vol] Positive (01/03/23 10:52 PM) Normal [facility] URINALYSISOrdered By: Juancho Fitch on [...] Interpretation Code Negative [facility] UA Auto SS Howe.plasma/Howe.R BC (Bld) [Mass ratio] 0-3 /HPF Normal 0-3/HPF [facility] UA Au to SS Nitrite Ql (U) Negative (01/03/23 10:52 PM) Normal Negative [facility] UA Auto SS pH (U) 6.5 *NA* (01/03/23 10:52 PM) Invalid Interpretation Code 5.0 - 9.0 [facility] UA Auto SS Protein (U) [Mass/Vol] Negative (01/03/23 10:52 PM) Normal Negative [facility] UA Auto SS Specific gravity (U) [Rel density] 1.020 *NA* (01/03/23 10:52 PM) Invalid Interpretation Code 1.005 - 1.030 [facility] UA Auto SS UA Spec Desc Clean Catch (01/03/23 10:52 PM) Normal [facility] UA Auto SS Urobilinogen Qn (U) 1.5658780 {Georgina'U}/dL Normal 0.0 - 1.0 EU/dL FT UA Auto SS WBC Auto Ql (U) 1+ *ABN* (01/03/23 10:52 PM) Invalid Interpretation Code Negative [facility] UA Auto SS WBC LM.HPF (Urine sed) [#/Area] 6-15 /HPF Invalid Interpretation Code 0-5/HPF [facility] UA Auto SS Alanine aminotransferase [En zymatic activity/volume] in Serum or PlasmaOrdered By: Jose Silverman on 10-02-2022 ALT [Catalytic activity/Vol] 13 U/L Normal 7-52 [facility] Comment on above: Performed By: #### C BC, CMP, ETOH #### [facility] [place] [facility] [address] [place] [address] [place] Albumin [Mass/volume] in Ser um or Plasma by Bromocresol green (BCG) dye binding methoOrdered By: Jose Silverman on 10-02-2022 Albumin BCG dye [Mass/Vol] 5.0 g/dL 3.5-5.7 [facility] Alkaline phosphatase [Enzyma tic activity/volume] in Serum or PlasmaOrdered By: Jose Silverman on 10-02-2022 ALP [Catalytic activity/Vol] 69 U/L Normal 34-104 [facility] Comment on above: Performed By: #### C BC, CMP, ETOH #### [facility] [place] [facility] [address] [place] [address] [place] Amphetamine Screen Ql (U)Ord ered By: Jose Silverman on 10-02-2022 Amphetamines Ql (U) Negative Negative [facility] Aspartate aminotransferase [ Enzymatic activity/volume] in Serum or PlasmaOrdered By: Jose Silverman on 10-02-2022 AST [Catalytic activity/Vol] 21 U/L Normal 13-39 [facility] Comment on above: Performed By: #### C BC, CMP, ETOH #### [address] Automated basophil %Ordered By: Jose Silverman on 10-02-2022 Basophils/100 WBC (Bld) 0.5 % Normal . F [facility] Comment on above: Performed By: #### C BC, CMP, ETOH #### [address] Automated basophil countOrde red By: Jose Silverman on 10-02-2022 Basophils (Bld) [#/Vol] 0.1 10*3/uL Normal 0.0-0.2 [facility] Comment on above: Result Comment: PERF ORMED BY: [place] [address] PATHOLOGIST [employer] OPERATOR ASHELY CAREY M.D. Performed By: #### C BC, CMP, ETOH #### [address] Automated blood monocyte cou ntOrdered By: Jose Silverman on 10-02-2022 Monocytes (Bld) [#/Vol] 0.7 10*3/uL Normal 0.0-0.8 [facility] Comment on above: Performed By: #### C BC, CMP, ETOH #### [address] Automated eosinophil %Ordere d By: Jose Silverman on 10-02-2022 Eosinophils/100 WBC (Bld) 2.0 % Normal . [facility] Comment on above: Performed By: #### C BC, CMP, ETOH #### [address] Automated eosinophil countOr dered By: Jose Silverman on 10-02-2022 Eosinophils (Bld) [#/Vol] 0.3 10*3/uL Normal 0.0-0.45 [facility] Comment on above: Performed By: #### C BC, CMP, ETOH #### [address] Automated erythrocytes count in urine sediment (number/area)Ordered By: Jose Silverman on 10-02-2022 RBC Auto (Urine sed) [#/Area] 0-1 [HPF] 0-4 [facility] Automated leukocytes count i n urine sediment (number/area)Ordered By: Jose Silverman on 10-02-2022 WBC Auto (Urine sed) [#/Area] 10-19 [HPF] 0-4 [facility] Automated monocyte %Ordered By: Jose Silverman on 10-02-2022 Monocytes/100 WBC (Bld) 5.7 % Normal . F [facility] Comment on above: Performed By: #### C BC, CMP, ETOH #### [facility] [address] Automated neutrophil %Ordere d By: Jose Silverman on 10-02-2022 Neutrophils/100 WBC (Bld) 68.7 % Normal . [facility] Comment on above: Performed By: #### C BC, CMP, ETOH #### [facility] [address] [place] [address] [place] Barbiturates [Presence] in U rine by Screen methodOrdered By: Jose Silverman on 10-02-2022 Barbiturates Screen Ql (U) Negative Negative [facility] Benzodiazepines Screen Ql (U )Ordered By: Jose Silverman on 10-02-2022 Benzodiazepines Ql (U) Negative Negative [facility] Benzoylecgonine [Presence] i n Urine by Screen methodOrdered By: Jose Silverman on 10-02-2022 Benzoylecgonine Screen Ql (U) Negative Negative [facility] Bilirubin Test strip Ql (U)O rdered By: Jose Silverman on 10-02-2022 Bilirubin Ql (U) Negative Negative [facility] Bilirubin.total [Mass/volume ] in Serum or PlasmaOrdered By: Jose Silverman on 10-02-2022 Bilirubin [Mass/Vol] 0.3 mg/dL Normal 0.3-1.0 [facility] Comment on above: Performed By: #### C BC, CMP, ETOH #### [facility] [address] [place] [address] [place] Calcium [Mass/volume] in Ser um or PlasmaOrdered By: Jose Silverman on 10-02-2022 Calcium [Mass/Vol] 9.6 mg/dL Normal 8.6-10.3 [facility] Comment on above: Performed By: #### C BC, CMP, ETOH #### [facility] [address] Cannabinoids [Presence] in U rine by Screen methodOrdered By: Jose Silverman on 10-02-2022 Cannabinoids Screen Ql (U) Negative Negative [facility] Comment on above: These are unconfirme d results and should not be used for legal purposes. Drug Cut-Off Concentration: AMPH 1000 ng/mL MIAH 200 ng/mL AYAN 200 ng/mL COCM 300 ng/mL OP 300 ng/mL PCP 25 ng/mL THC 20 ng/mL Carbon dioxide, total [Moles /volume] in Serum or PlasmaOrdered By: Jose Silverman on 10-02-2022 CO2 [Moles/Vol] 27.2 mmol/L Normal 21.0-31.0 [facility] Comment on above: Performed By: #### C BC, CMP, ETOH #### [place] [address] [place] Chloride [Moles/volume] in S brian or PlasmaOrdered By: Jose Silverman on 10-02-2022 Chloride [Moles/Vol] 101 mmol/L Normal 98-107 [facility] Comment on above: Performed By: #### C BC, CMP, ETOH #### [address] Color Auto (U)Ordered By: Loli Silverman on 10-02-2022 Color (U) Yellow Yellow [facility] Complete Blood Count Auto Di ffon 10-02-2022 Mean Corpuscular HGB Conc 32.0 g/dL Normal 32.0-35.0 [facility] Comment on above: Performed By: #### C BC, CMP, ETOH #### [place] [address] [place] Monocytes/100 WBC (Bld) 17.72 % Normal 0.00-20.00 [facility] Comment on above: Performed By: #### C BC, CMP, ETOH #### [address] NRBC% 0.0 /100{WBC} Normal 0-0.5 [facility] Comment on above: Performed By: #### C BC, CMP, ETOH #### [address] Comprehensive Metabolic Pane tung 10-02-2022 Albumin [Mass/Vol] 5.0 g/dL Normal 3.5-5.7 [facility] Comment on above: Performed By: #### C BC, CMP, ETOH #### [address] Creatinine Clr Calc Pharmacy 107.48 Normal [facility] Comment on above: Result Comment: PERF ORMED BY: [place] [address] PATHOLOGIST [employer]PER[employer] ASHELY CAREY M.D. Performed By: #### C BC, CMP, ETOH #### [address] GFR/1.73 sq M.predicted MDRD (S/P/Bld) [Vol rate/Area] mL/min/{1.73_m2} Normal [facility] Comment on above: Performed By: #### C BC, CMP, ETOH #### [address] Creatinine [Mass/volume] in Serum or PlasmaOrdered By: Jose Silverman on 10-02-2022 Creatinine [Mass/Vol] 0.89 mg/dL Normal 0.60-1.[address] [facility] Comment on above: Performed By: #### C BC, CMP, ETOH #### [address] Dipstick and Microscopicon 0 10-02-2022 Appearance (U) Clear Normal Clear [facility] Comment on above: Order Comment: Name Collection Type:: Clean-Voided Midstream Performed By: #### U RDS, ADDONUAPLUS, CUU, UHCG #### [address] Bacteria,Urine 2+ High None Seen [facility] Comment on above: Order Comment: Name Collection Type:: Clean-Voided Midstream Performed By: #### U RDS, ADDONUAPLUS, CUU, UHCG #### [facility] [address] [place] [address] [place] Bilirubin,Urine Negative Normal Negative [facility] Comment on above: Order Comment: Name Collection Type:: Clean-Voided Midstream Performed By: #### U RDS, ADDONUAPLUS, CUU, UHCG #### [facility] [address] [place] [address] Color (U) Yellow Normal Yellow [facility] Comment on above: Order Comment: Name Collection Type:: Clean-Voided Midstream Performed By: #### U RDS, ADDONUAPLUS, CUU, UHCG #### [facility] [address] [place] [address] Glucose Ql (U) Normal Normal Normal [facility] Comment on above: Order Comment: Name Collection Type:: Clean-Voided Midstream Performed By: #### U RDS, ADDONUAPLUS, CUU, UHCG #### [facility] [address] [place] [address] Hyaline Casts,Urine 0-8 Normal 0-8 [facility] Comment on above: Order Comment: Name Collection Type:: Clean-Voided Midstream Performed By: #### U RDS, ADDONUAPLUS, CUU, UHCG #### [facility] [address] [place] [address] [place] Ketones Ql (U) Negative Normal Negative [facility] Comment on above: Order Comment: Name Collection Type:: Clean-Voided Midstream Performed By: #### U RDS, ADDONUAPLUS, CUU, UHCG #### [facility] [address] [place] [address] Leukocyte esterase Test strip Ql (U) 3+ High Negative [facility] Comment on above: Order Comment: Name Collection Type:: Clean-Voided Midstream Performed By: #### U RDS, ADDONUAPLUS, CUU, UHCG #### [facility] [address] [place] [address] [place] Nitrite,Urine Negative Normal Negative [facility] Comment on above: Order Comment: Name Collection Type:: Clean-Voided Midstream Performed By: #### U RDS, ADDONUAPLUS, CUU, UHCG #### [address] Occult Blood,Urine Negative Normal Negative [facility] Comment on above: Order Comment: Name Collection Type:: Clean-Voided Midstream Performed By: #### U RDS, ADDONUAPLUS, CUU, UHCG #### [address] pH (U) 6.5 [pH] Normal 5.0-9.0 [facility] Comment on above: Order Comment: Name Collection Type:: Clean-Voided Midstream Performed By: #### U RDS, ADDONUAPLUS, CUU, UHCG #### [facility] [address] [place] [address] Protein,Urine Negative Normal Negative [facility] Comment on above: Order Comment: Name Collection Type:: Clean-Voided Midstream Performed By: #### U RDS, ADDONUAPLUS, CUU, UHCG #### [facility] [address] [place] [address] RBC LM.HPF (Urine sed) [#/Area] 0 /[HPF] Normal 0-4 [facility] Comment on above: Order Comment: Name Collection Type:: Clean-Voided Midstream Performed By: #### U RDS, ADDONUAPLUS, CUU, UHCG #### [facility] [address] [place] [address] Specificy [place],Urine 1.021 Normal 1.001-1.030 [facility] Comment on above: Order Comment: Name Collection Type:: Clean-Voided Midstream Performed By: #### U RDS, ADDONUAPLUS, CUU, UHCG #### [address] Squamous Epithelial Cell,Urine 10-19 High 0-2 [facility] Comment on above: Order Comment: Name Collection Type:: Clean-Voided Midstream Performed By: #### U RDS, ADDONUAPLUS, CUU, UHCG #### [facility] [address] [place] [address] Urobilinogen,Urine Normal Normal Normal [facility] Comment on above: Order Comment: Name Collection Type:: Clean-Voided Midstream Performed By: #### U RDS, ADDONUAPLUS, CUU, UHCG #### [facility] [address] [place] [address] [place] WBC,Urine 10-19 High 0-4 [facility] Comment on above: Order Comment: Name Collection Type:: Clean-Voided Midstream Performed By: #### U RDS, ADDONUAPLUS, CUU, UHCG #### [address] Drug Screen,Urineon 10-03-19 Amphetamine Screen,Urine Negative Normal Negative [facility] Comment on above: Performed By: #### U RDS, ADDONUAPLUS, CUU, UHCG #### [address] Barbiturate Screen,Urine Negative Normal Negative [facility] Comment on above: Performed By: #### U RDS, ADDONUAPLUS, CUU, UHCG #### [address] Benzodiazepines Screen,Urine Negative Normal Negative [facility] Comment on above: Performed By: #### U RDS, ADDONUAPLUS, CUU, UHCG #### [facility] [address] [place] [address] Cannabinoid Screen,Urine Negative Normal Negative [facility] Comment on above: Result Comment: Thes e are unconfirmed results and should not be used for legal purposes. Drug Cut-Off Concentration: AMPH 1000 ng/mL MIAH 200 ng/mL AYAN 200 ng/mL COCM 300 ng/mL OP 300 ng/mL PCP 25 ng/mL THC 20 ng/mL PERFORMED BY: [place] [address] PATHOLOGIST [employer] ASHELY CAREY M.D. Performed By: #### U RDS, ADDONUAPLUS, CUU, UHCG #### [facility] [address] [place] [address] [place] Cocaine Screen,Urine Negative Normal Negative [facility] Comment on above: Performed By: #### U RDS, ADDONUAPLUS, CUU, UHCG #### [facility] [address] [place] [address] [place] Opiate Screen,Urine Negative Normal Negative [facility] Comment on above: Performed By: #### U RDS, ADDONUAPLUS, CUU, UHCG #### [facility] [address] [place] [address] [place] Phencyclidine Screen,Urine Negative Normal Negative [facility] Comment on above: Performed By: #### U RDS, ADDONUAPLUS, CUU, UHCG #### [facility] [address] Erythrocyte distribution wid th [Ratio] by Automated countOrdered By: Jose Silverman on 10-02-2022 Erythrocyte distribution width (RBC) [Ratio] 15.8 % High 11.9-15.3 [facility] Comment on above: Performed By: #### C BC, CMP, ETOH #### [address] Erythrocytes [#/volume] in B lood by Automated countOrdered By: Jose Silverman on 10-02-2022 RBC (Bld) [#/Vol] 5.31 10*6/uL High 3.60-5.00 [facility] Comment on above: Performed By: #### C BC, CMP, ETOH #### [facility] [address] [place] [address] [place] Ethanol [Mass/volume] in Ser um or PlasmaOrdered By: Jose Silverman on 10-02-2022 Ethanol [Mass/Vol] mg/dL Normal [facility] Comment on above: Performed By: #### C BC, CMP, ETOH #### [facility] [address] Ethanol [Mass/Vol] TNP [facility] Comment on above: Test not performed Ethyl Alcohol Profileon 09-08 Percent Ethanol Not performed Normal [facility] Comment on above: Result Comment: PERF ORMED BY: [place] [address] PATHOLOGIST [employer]PER[employer] ASHELY CAREY M.D. Performed By: #### C BC, CMP, ETOH #### [facility] [address] [place] [id number] [place] Glucose [Mass/volume] in Ser um or PlasmaOrdered By: Jose Silverman on 10-02-2022 Glucose [Mass/Vol] 98 mg/dL Normal 70-100 [facility] Comment on above: ADA recommended refe rence rangeRandom Glucose Reference Range is dependent on time and content of last meal. Glucose of more than 200 mg/dL in a nonstressed, ambulatory subject supports the diagnosis of Diabetes Mellitus. Result Comment: [place] om Glucose Reference Range is dependent on time and content of last meal. Glucose of more than 200 mg/dL in a nonstressed, ambulatory subject supports the diagnosis of Diabetes Mellitus. ADA recommended reference range Performed By: #### C BC, CMP, ETOH #### [facility] [address] [place] [id number] [place] HCG ( test) IA.rapi d Ql (U)Ordered By: Jose Silverman on 10-02-2022 HCG ( test) Ql (U) Negative [facility] HCG,Urineon 10-02-2022 Beta HCG ( test) Ql (U) Negative Normal [facility] Comment on above: Order Comment: Name Collection Type:: Clean-Voided Midstream Result Comment: PERF ORMED BY: [facility] [address] [place] [address] PATHOLOGIST [employer]PER[employer] ASHELY CAREY M.D. Performed By: #### U RDS, ADDONUAPLUS, CUU, UHCG #### [facility] [address] [place] [address] [place] Hematocrit [Volume Fraction] of Blood by Automated countOrdered By: Jose Silverman on 10-02-2022 Hematocrit (Bld) [Volume fraction] 41.7 % Normal 34.0-46.4 [facility] Comment on above: Performed By: #### C BC, CMP, ETOH #### [facility] [address] [place] [address] Hemoglobin [Mass/volume] in BloodOrdered By: Jose Silverman on 10-02-2022 Hemoglobin (Bld) [Mass/Vol] 13.3 g/dL Normal 11.8-15.4 [facility] Comment on above: Performed By: #### C BC, CMP, ETOH #### [address] Ketones Auto test strip (U) [Mass/Vol]Ordered By: Jose Silverman on 10-02-2022 Ketones (U) [Mass/Vol] Negative Negative [facility] Laboratory - UrinalysisOrder ed By: Jose Silverman on 10-02-2022 Hyaline casts LM Ql (Urine sed) 0-8 [LPF] 0-8 [facility] Leukocytes [#/volume] correc ruby for nucleated erythrocytes in Blood by Automated counOrdered By: Jose Silverman on 10-02-2022 WBC corrected for nucl RBC Auto (Bld) [#/Vol] 12.9 10*3/uL 3.8-11.6 [facility] Leukocytes [#/volume] in Blo od by Automated countOrdered By: Jose Silverman on 10-02-2022 WBC (Bld) [#/Vol] 12.9 10*3/uL High 3.8-11.6 [facility] Comment on above: Performed By: #### C BC, CMP, ETOH #### [facility] [address] [place] [address] [place] Lymphocytes [#/volume] in Bl ood by Automated countOrdered By: Jose Silverman on 10-02-2022 Lymphocytes (Bld) [#/Vol] 3.0 10*3/uL Normal 1.00-4.8 [facility] Comment on above: Performed By: #### C BC, CMP, ETOH #### [facility] [address] [place] [address] [place] Lymphocytes/100 leukocytes i n Blood by Automated countOrdered By: Jose Silverman on 10-02-2022 Lymphocytes/100 WBC (Bld) 23.1 % Normal . [facility] Comment on above: Performed By: #### C BC, CMP, ETOH #### [facility] [address] [place] [address] MCH [Entitic mass] by Automa ruby countOrdered By: Jose Silverman on 10-02-2022 MCH (RBC) [Entitic mass] 25.2 pg Normal 24.7-34.3 [facility] Comment on above: Performed By: #### C BC, CMP, ETOH #### [address] MCHC Auto (RBC) [Mass/Vol]Or dered By: Jose Silverman on 10-02-2022 MCHC (RBC) [Mass/Vol] 32.0 g/dL 32.0-35.[address] [facility] MCV [Entitic volume] by Auto mated countOrdered By: Jose Silverman on 10-02-2022 MCV (RBC) [Entitic vol] 78.5 fL Low 80-100 F [facility] Comment on above: Performed By: #### C BC, CMP, ETOH #### [address] Monocyte distribution width [Entitic volume] in Blood by AutomatedOrdered By: Jose Silverman on 10-02-2022 Monocyte distribution width Auto (Bld) [Entitic vol] 17.72 % 0.00-20.00 [facility] Neutrophils [#/volume] in Bl ood by Automated countOrdered By: Jose Silverman on 10-02-2022 Neutrophils (Bld) [#/Vol] 8.9 10*3/uL High 1.8-7.7 [facility] Comment on above: Performed By: #### C BC, CMP, ETOH #### [facility] [address] [place] [address] Nitrite Test strip Ql (U)Ord ered By: Jose Silverman on 10-02-2022 Nitrite Ql (U) Negative Negative [facility] No Panel InformationOrdered By: Jose Silverman on 10-02-2022 Estimated GFR (CKD-EPI) > 60.0 mL/Min [facility]acy Creatinine Clearance (Chem 107.48 [facility] Nucleated erythrocytes [Pres ence] in Blood by Automated countOrdered By: Jose Silverman on 10-02-2022 Nucleated RBC Auto Ql (Bld) 0.0 /100{WBC} 0-0.5 [facility] Opiates [Presence] in Urine by Screen methodOrdered By: Jose Silverman on 10-02-2022 Opiates Screen Ql (U) Negative Negative [facility] Phencyclidine Screen Ql (U)O rdered By: Jose Silverman on 10-02-2022 Phencyclidine Ql (U) Negative Negative [facility] Platelet mean volume [Entiti c volume] in Blood by Automated countOrdered By: Jose Silverman on 10-02-2022 Platelet mean volume (Bld) [Entitic vol] 7.7 fL Normal 6.3-10.7 [facility] Comment on above: Performed By: #### C BC, CMP, ETOH #### [facility] [address] [place] [address] [place] Platelets [#/volume] in Bloo d by Automated countOrdered By: Jose Silverman on 10-02-2022 Platelets (Bld) [#/Vol] 342 10*3/uL Normal 150-450 [facility] Comment on above: Performed By: #### C BC, CMP, ETOH #### [facility] [address] [place] [address] [place] Potassium [Moles/volume] in Serum or PlasmaOrdered By: Jose Silverman on 10-02-2022 Potassium [Moles/Vol] 3.8 mmol/L Normal 3.5-5.[address] [facility] Comment on above: Performed By: #### C BC, CMP, ETOH #### [facility] [address] [place] [address] [place] Protein Auto test strip (U) [Mass/Vol]Ordered By: Jose Silverman on 10-02-2022 Protein (U) [Mass/Vol] Negative Negative [facility] Protein [Mass/volume] in Ser um or PlasmaOrdered By: Jose Silverman on 10-02-2022 Protein [Mass/Vol] 8.7 g/dL Normal 6.4-8.9 [facility] Comment on above: Performed By: #### C BC, CMP, ETOH #### [address] Serum globulin measurement b y calculation (mass/volume)Ordered By: Jose Silverman on 10-02-2022 Globulin (S) [Mass/Vol] 3.7 g/dL Normal [facility] Comment on above: Performed By: #### C BC, CMP, ETOH #### [address] Serum or plasma albumin/glob ulin mass ratioOrdered By: Jose Silverman on 10-02-2022 Albumin/Globulin [Mass ratio] 1.4 {ratio} Normal [facility] Comment on above: Performed By: #### C BC, CMP, ETOH #### [address] Serum or plasma anion gap de terminationOrdered By: Jose Silverman on 10-02-2022 Anion gap [Moles/Vol] 12.6 mmol/L Normal 6.0-15.0 [facility] Comment on above: Performed By: #### C BC, CMP, ETOH #### [address] Sodium [Moles/volume] in Ser um or PlasmaOrdered By: Jose Silverman on 10-02-2022 Sodium [Moles/Vol] 137 mmol/L Normal 136-145 [facility] Comment on above: Performed By: #### C BC, CMP, ETOH #### [address] Specific gravity Auto test s trip (U) [Rel density]Ordered By: Jose Silverman on 10-02-2022 Specific gravity (U) [Rel density] 1.021 1.001-1.030 [facility] Squamous epithelial cells de tection in urine sediment by light microscopyOrdered By: Jose Silverman on 10-02-2022 Epithelial cells.squamous LM Ql (Urine sed) 10-19 [HPF] 0-2 [facility] Urea nitrogen [Mass/volume] in Serum or PlasmaOrdered By: Jose Silverman on 10-02-2022 Urea nitrogen [Mass/Vol] 18 mg/dL Normal 7-25 [facility] Comment on above: Performed By: #### C BC, CMP, ETOH #### [facility] [address] [place] [address] [place] Urine Cultureon 10-02-2022 Bacteria identified Cx Nom (U) ORGANISM: Strep agalactiae - (group b) (O:STRAGA) [place] Count 50,000 PERFORMED BY: [place] [address] PATHOLOGIST [employer]PER[employer] ASHELY CAREY M.D. Normal [facility] Comment on above: Performed By: #### U RDS, ADDONUAPLUS, CUU, UHCG #### [facility] [address] [place] [address] Urine bacteria detection by automated methodOrdered By: Jose Silverman on 10-02-2022 Bacteria Auto Ql (U) 2+ None Seen [facility] Urine clarity by refractomet ry automatedOrdered By: Jose Silverman on 10-02-2022 Clarity Refractometry automated (U) Clear Clear [facility] Urine glucose measurement by automated test strip (mass/volume)Ordered By: Jose Silverman on 10-02-2022 Glucose Auto test strip (U) [Mass/Vol] Normal mg/dL Normal [facility] Urine hemoglobin detection b y automated test stripOrdered By: Jose Silverman on 10-02-2022 Hemoglobin Auto test strip Ql (U) Negative Negative [facility] Urine leukocyte esterase det ection by automated test stripOrdered By: Jose Silverman on 10-02-2022 Leukocyte esterase Auto test strip Ql (U) 3+ Negative [facility] Urobilinogen Auto test strip (U) [Mass/Vol]Ordered By: Jose Silverman on 10-02-2022 Urobilinogen (U) [Mass/Vol] Normal mg/dL Normal [facility] pH Auto test strip (U)Ordere d By: Jose Silverman on 10-02-2022 pH (U) 6.5 [pH] 5.0-9.0 [facility] Quick Strepon 09-25-2022 S. pyogenes Org specific cx Ql (Throat) Negative [employer] Other Cesar Nickerson [employer] Other CHEMISTRYOrdered By: SYSTEM SYSTEM on 09-06-2022 Anion gap [Moles/Vol] 10 mmol/L Normal 6 - 16 mEq/L F [facility] Remisol Calcium [Mass/Vol] 9.2 mg/dL Normal 8.9 - 11. 1 mg/dL [facility]isol Chloride [Moles/Vol] 104 mmol/L Normal 101 - 1 11 mmol/L [facility]isol CO2 [Moles/Vol] 27 mmol/L Normal 21 - 31 mmol/L [facility] Creatinine [Mass/Vol] 0.7 mg/dL Normal 0.5 - 1.3 mg/dL [facility] Remisol GFR/1.73 sq M.predicted among blacks MDRD (S/P/Bld) [Vol rate/Area] mL/min/1.73 m2 Normal >=59mL/min/1 .73 m2 FT Chem S GFR/1.73 sq M.predicted among non-blacks MDRD (S/P/Bld) [Vol rate/Area] mL/min/1.73 m2 Normal >=59mL/min/1 .73 m2 FT Chem S Glucose [Mass/Vol] 82 mg/dL Normal 55 - 199 mg/dL [facility] Remisol HCG.beta subunit Qn 1712 m[IU]/mL High 1 - 3 mIU/mL [facility] Potassium [Moles/Vol] 3.7 mmol/L Normal 3.5 - 5.3 mmol/L [facility] Remisol Sodium [Moles/Vol] 137 mmol/L Normal 135 - 145 mmol/L [facility] Remisol Urea nitrogen [Mass/Vol] 8 mg/dL Normal [...] AM) Normal Negative [facility] UA Auto SS Howe.plasma/Howe.R BC (Bld) [Mass ratio] >30 /HPF Invalid [...] AM) Invalid Interpretation Code 1.005 - 1.030 [facility] UA Auto SS UA Spec Desc Clean Catch (09/06/22 11:19 AM) Normal [facility] UA Auto SS Urobilinogen Qn (U) [id number] {Georgina'U}/dL Normal 0.0 - 1.0 EU/dL [facility] UA Auto SS WBC Auto Ql (U) Negative (09/06/22 11:19 AM) Normal Negative [facility] UA Auto SS WBC LM.HPF (Urine sed) [#/Area] 0-5 /HPF Normal 0-5/HPF [facility] UA Auto SS BLOOD BANKOrdered By: John Montague on 08-14-2022 ABO/Rh Interp Positive Invalid Interpretation Code [facility] BB Subsection CHEMISTRYOrdered By: SYSTEM SYSTEM on [...] 11. 1 mg/dL [facility] Chloride [Moles/Vol] 103 mmol/L Normal 101 - 1 11 mmol/L [facility] CO2 [Moles/Vol] 27 mmol/L Normal 21 - 31 mmol/L [facility] Creatinine [Mass/Vol] 0.8 mg/dL Normal 0.5 - 1.3 mg/dL [facility] GFR/1.73 sq M.predicted among blacks MDRD (S/P/Bld) [Vol rate/Area] mL/min/1.73 m2 Normal >=59mL/min/1 .73 m2 FT Chem S GFR/1.73 sq M.predicted among non-blacks MDRD (S/P/Bld) [Vol rate/Area] mL/min/1.73 m2 Normal >=59mL/min/1 .73 m2 FT Chem S Globulin (S) [Mass/Vol] 3.2 g/dL Normal 1.4 - 4.0 gm/dL [facility] Glucose [Mass/Vol] 111 mg/dL Normal 55 - 199 mg/dL [facility] Lipase [Catalytic activity/Vol] 38 U/L Normal 13 - 58 unit/L [facility] Potassium [Moles/Vol] 3.7 mmol/L Normal 3.5 - 5.3 mmol/L [facility] Protein [Mass/Vol] 7.2 g/dL Normal 6.0 - 7.8 gm/dL [facility] Sodium [Moles/Vol] 136 mmol/L Normal 135 - 145 mmol/L [facility] Urea nitrogen [Mass/Vol] 14 mg/dL Normal [...] PM) Normal Negative [facility] UA Auto SS Howe.plasma/Howe.R BC (Bld) [Mass ratio] 0-3 /HPF Normal [...] Desc Clean Catch (08/14/22 7:29 PM) Normal [facility] UA Auto SS Urobilinogen Qn (U) [id number] {Georgina'U}/dL Normal 0.0 - 1.0 EU/dL [facility] UA Auto SS WBC Auto Ql (U) Negative (08/14/22 7:29 PM) Normal Negative [facility] UA Auto SS WBC LM.HPF (Urine sed) [#/Area] 0-5 /HPF Normal 0-5/HPF [facility] UA Auto SS CHLAMYDIA/GONOCOCCUS ALFREDO (SW AB/URINE/PAPon 07-15-2022 Chlamydia trachomatis, ALFREDO Negative Normal Negative [facility] Comment on above: Performed By: #### C T/NGNA #### [facility] [address] [address] [address] Cyril Hendricks Neisseria gonorrhoeae, ALFREDO Negative Normal Negative [facility] Comment on above: Performed By: #### C T/NGNA #### [facility] [address] [address] [address] Cyril Hendricks VAGINITIS/VAGINOSIS DNA PROB Maurice 07-13-2022 Krista species Negative Normal Negative [facility] Comment on above: Performed By: #### U MICRO, UACSIND #### [facility] [address] [address] [address] Cyril Hendricks Gardnerella vaginalis Positive Abnormal Negative [facility] Comment on above: Performed By: #### U MICRO, UACSIND #### [facility] [address] [address] [address] Cyril Hendricks Trichomonas vaginalis Negative Normal Negative [facility] Comment on above: Performed By: #### U MICRO, UACSIND #### [facility] [address] [address] [address] Cyril Hendricks COVID/FLU RT-PCRon SARS-CoV-2 (COVID-19) RNA ALFREDO+probe Ql (Unsp spec) Negative [employer] Other COVID/FLU RT-PCR Negative [employer] Other Quick Strepon 06-24-2022 S. pyogenes Org specific cx Ql (Throat) Negative [employer] Other Quick Strep [employer] Other CBC AUTO DIFFon 08-02-2022 BASO # 0.1 103/ul Normal 0.0-0.1 [facility] Comment on above: Performed By: #### C BC #### [facility] [address] [address] [address] Cyril Hendricks Basophils/100 WBC (Bld) 0.4 % Normal 0.2-2.0 [facility] Comment on above: Performed By: #### C BC #### [facility] [address] [address] [address] Cyril Hendricks EO # 0.1 103/ul Normal 0.0-0.7 [facility] Comment on above: Performed By: #### C BC #### [facility] [address] [place] [address] Dr. Cyril Hendricks Eosinophils/100 WBC (Bld) 0.9 % Normal 0.9-7.0 [facility] Comment on above: Performed By: #### C BC #### [facility] [address] [place] [address] Dr. Cyril Hendricks Erythrocyte distribution width (RBC) [Ratio] 12.3 % Normal 11.0-15.0 [facility] Comment on above: Performed By: #### C BC #### [facility] [address] [place] [address] Dr. Cyril Hendricks Hematocrit (Bld) [Volume fraction] 30.0 % Critically low 36.0-48.0 [facility] Comment on above: Performed By: #### C BC #### [facility] [address] [place] [address] Dr. Cyril Hendricks Hemoglobin (Bld) [Mass/Vol] 10.2 g/dL Critically low 12.0-16.0 [facility] Comment on above: Performed By: #### C BC #### [facility] [address] [place] [address] Dr. Cyril Hendricks IG # 0.05 10e3/ul Critically high 0.00-0.03 [facility] Comment on above: Performed By: #### C BC #### [facility] [address] [place] [address] Dr. Cyril Hendricks IG % 0.4 % Normal 0.0-0.5 [facility] Comment on above: Performed By: #### C BC #### [facility] [address] [place] [address] Dr. Cyril Hendricks LYMPH # 2.8 103/ul Normal 1.2-3.8 [facility] Comment on above: Performed By: #### C BC #### [facility] [address] [place] [address] Dr. Cyril Hendricks Lymphocytes/100 WBC (Bld) 19.7 % Critically low 20.5-60.0 [facility] Comment on above: Performed By: #### C BC #### [facility] [address] [place] [address] Dr. Cyril Hendricks MANUAL DIFF REQ NO Normal [facility] Comment on above: Performed By: #### C BC #### [facility] [address] [place] [address] Dr. Cyril Hendricks MCH (RBC) [Entitic mass] 30.6 pg Normal 26.7-34.0 [facility] Comment on above: Performed By: #### C BC #### [facility] [address] [place] [address] Dr. Cyril Hendricks MCHC (RBC) [Mass/Vol] 34.0 g/dL Normal 29.9-35.2 [facility] Comment on above: Performed By: #### C BC #### [facility] [address] [place] [address] Dr. Cyril Hendricks MCV (RBC) [Entitic vol] 90.1 fL Normal 81.0-99.0 [facility] Comment on above: Performed By: #### C BC #### [facility] [address] [place] [address] Dr. Cyril Hendricks MONO # 0.8 103/ul Normal 0.3-0.8 [facility] Comment on above: Performed By: #### C BC #### [facility] [address] [place] [address] Dr. Cyril Hendricks Monocytes/100 WBC (Bld) 5.9 % Normal 1.7-12.0 [facility] Comment on above: Performed By: #### C BC #### [facility] [address] [place] [address] Dr. Cyril Hendricks NEUT # 10.3 103/ul Critically high 1.4-6.5 [facility] Comment on above: Performed By: #### C BC #### [facility] [address] [place] [address] Dr. Cyril Hendricks Neutrophils/100 WBC (Bld) 72.7 % Normal 43.0-75.0 [facility] Comment on above: Performed By: #### C BC #### [facility] [address] [place] [address] Dr. Cyril Hendricks Platelet mean volume (Bld) [Entitic vol] 9.8 fL Normal 9.5-13.5 [facility] Comment on above: Performed By: #### C BC #### [facility] [address] [place] [address] Dr. Cyril Hendricks PLT 207 103/ul Normal 150-450 [facility] Comment on above: Performed By: #### C BC #### [facility] [address] [place] [address] Dr. Cyril Hendricks RBC 3.33 106/ul Critically low 4.20-5.40 [facility] Comment on above: Performed By: #### C BC #### [facility] [address] [place] [address] Dr. Cyril Hendricks WBC 14.2 103/ul Critically high 4.0-11.0 [facility] Comment on above: Performed By: #### C BC #### [facility] [address] [place] [address] Dr. Cyril Hendricks CBC AUTO DIFFon 01-07-2022 BASO # 0.1 103/ul Normal 0.0-0.1 [facility] Comment on above: Performed By: #### U MICRO, UACSIND #### [facility] [address] [place] [address] Dr. Cyril Hendricks Basophils/100 WBC (Bld) 0.5 % Normal 0.2-2.0 [facility] Comment on above: Performed By: #### U MICRO, UACSIND #### [facility] [address] [address] [address] Cyril Hendricks EO # 0.1 103/ul Normal 0.0-0.7 [facility] Comment on above: Performed By: #### U MICRO, UACSIND #### [facility] [address] [place] [address] Dr. Cyril Hendricks Eosinophils/100 WBC (Bld) 0.9 % Normal 0.9-7.0 [facility] Comment on above: Performed By: #### U MICRO, UACSIND #### [facility] [address] [place] [address] Dr. Cyril Hendricks Erythrocyte distribution width (RBC) [Ratio] 12.4 % Normal 11.0-15.0 [facility] Comment on above: Performed By: #### U MICRO, UACSIND #### [facility] [address] [place] [address] Dr. Cyril Hendricks Hematocrit (Bld) [Volume fraction] 34.3 % Critically low 36.0-48.0 [facility] Comment on above: Performed By: #### U MICRO, UACSIND #### [facility] [address] [place] [address] Dr. Cyril Hendricks Hemoglobin (Bld) [Mass/Vol] 11.6 g/dL Critically low 12.0-16.0 [facility] Comment on above: Performed By: #### U MICRO, UACSIND #### [facility] [address] [place] [address] Dr. Cyril Hendricks IG # 0.06 10e3/ul Critically high 0.00-0.03 [facility] Comment on above: Performed By: #### U MICRO, UACSIND #### [facility] [address] [place] [address] Dr. Cyril Hendricks IG % 0.4 % Normal 0.0-0.5 [facility] Comment on above: Performed By: #### U MICRO, UACSIND #### [facility] [address] [address] [address] Cyril Hendricks LYMPH # 3.1 103/ul Normal 1.2-3.8 [facility] Comment on above: Performed By: #### U MICRO, UACSIND #### [facility] [address] [address] [address] Cyril Hendricks Lymphocytes/100 WBC (Bld) 20.4 % Critically low 20.5-60.0 [facility] Comment on above: Performed By: #### U MICRO, UACSIND #### [facility] [address] [place] [address] Dr. Cyril Hendricks MANUAL DIFF REQ NO Normal [facility] Comment on above: Performed By: #### U MICRO, UACSIND #### [facility] [address] [place] [address] Dr. Cyril Hendricks MCH (RBC) [Entitic mass] 30.6 pg Normal 26.7-34.0 [facility] Comment on above: Performed By: #### U MICRO, UACSIND #### [facility] [address] [place] [address] Dr. Cyril Hendricks MCHC (RBC) [Mass/Vol] 33.8 g/dL Normal 29.9-35.2 [facility] Comment on above: Performed By: #### U MICRO, UACSIND #### [facility] [address] [place] [address] Dr. Cyril Hendricks MCV (RBC) [Entitic vol] 90.5 fL Normal 81.0-99.0 [facility] Comment on above: Performed By: #### U MICRO, UACSIND #### [facility] [address] [place] [address] Dr. Cyril Hendricks MONO # 0.9 103/ul Critically high 0.3-0.8 [facility] Comment on above: Performed By: #### U MICRO, UACSIND #### [facility] [address] [place] [address] Dr. Cyril Hendricks Monocytes/100 WBC (Bld) 6.2 % Normal 1.7-12.0 [facility] Comment on above: Performed By: #### U MICRO, UACSIND #### [facility] [address] [place] [address] Dr. Cyril Hendricks NEUT # 10.9 103/ul Critically high 1.4-6.5 [facility] Comment on above: Performed By: #### U MICRO, UACSIND #### [facility] [address] [place] [address] Dr. Cyril Hendricks Neutrophils/100 WBC (Bld) 71.6 % Normal 43.0-75.0 [facility] Comment on above: Performed By: #### U MICRO, UACSIND #### [facility] [address] [place] [address] Dr. Cyril Hendricks Platelet mean volume (Bld) [Entitic vol] 11.1 fL Normal 9.5-13.5 [facility] Comment on above: Performed By: #### U MICRO, UACSIND #### [facility] [address] [place] [address] Dr. Cyril Hendricks PLT 240 103/ul Normal 150-450 [facility] Comment on above: Performed By: #### U MICRO, UACSIND #### [facility] [address] [place] [address] Dr. Cyirl Hendricks RBC 3.79 106/ul Critically low 4.20-5.40 [facility] Comment on above: Performed By: #### U MICRO, UACSIND #### [facility] [address] [place] [address] Dr. Cyril Hendricks WBC 15.3 103/ul Critically high 4.0-11.0 [facility] Comment on above: Performed By: #### U MICRO, UACSIND #### [facility] [address] [place] [address] Dr. Cyril Hendricks Covid-19 PCR ([facility])on SARS-CoV-2 (COVID-19) RNA ALFREDO+probe Ql (Unsp spec) Not detected Normal NOT DETECTED [facility] Comment on above: Result Comment: When diagnostic [...] for this test is supported by the Physical Therapist of Health and Human Service's declaration that [...] used). Performed By: #### H CVPCRR #### [facility] [address] [place] [address] Dr. Cyril Hendricks DRUG SCREEN RAPID (URINE)on 01-07-2022 AMP Negative Normal NEGATIVE [facility] Comment on above: Performed By: #### U MICRO, UACSIND #### [facility] [address] [place] [address] Dr. Cyril Hendricks BAR Negative Normal NEGATIVE [facility] Comment on above: Performed By: #### U MICRO, UACSIND #### [facility] [address] [place] [address] Dr. Cyril Hendricks BUP Negative Normal NEGATIVE [facility] Comment on above: Performed By: #### U MICRO, UACSIND #### [facility] [address] [place] [address] Dr. Cyril Hendricks BZO Negative Normal NEGATIVE [facility] Comment on above: Performed By: #### U MICRO, UACSIND #### [facility] [address] [place] [address] Dr. Cyril Hendricks DARIN Negative Normal NEGATIVE [facility] Comment on above: Performed By: #### U MICRO, UACSIND #### [facility] [address] [place] [address] Dr. Cyril Hendricks CUT-OFFS SEE BELOW Normal [facility] Comment on above: Result Comment: AMP (Amphetamine): [...] Performed By: #### U MICRO, UACSIND #### [facility] [address] [place] [address] Dr. Cyril Hendricks DRUG CUT HEADER DRUG CLASS TEST SYSTEM CUT-OFF CONCENTRATIONS ARE FOLLOWS: Normal [facility] Comment on above: Performed By: #### U MICRO, UACSIND #### [facility] [address] [place] [address] Dr. Cyril Hendricks mAMP Negative Normal NEGATIVE [facility] Comment on above: Performed By: #### U MICRO, UACSIND #### [facility] [address] [place] [address] Dr. Cyril Hendricks MTD Negative Normal NEGATIVE [facility] Comment on above: Performed By: #### U MICRO, UACSIND #### [facility] [address] [place] [address] Dr. Cyril Hendricks OPI Negative Normal NEGATIVE [facility] Comment on above: Performed By: #### U MICRO, UACSIND #### [facility] [address] [place] [address] Dr. Cyril Hendricks OXY Negative Normal NEGATIVE [facility] Comment on above: Performed By: #### U MICRO, UACSIND #### [facility] [address] [place] [address] Dr. Cyril Hendricks PCP Negative Normal NEGATIVE [facility] Comment on above: Performed By: #### U MICRO, UACSIND #### [facility] [address] [address] [address] Cyril Hendricks PPX Negative Normal NEGATIVE [facility] Comment on above: Performed By: #### U MICRO, UACSIND #### [facility] [address] [address] [address] Cyril Hendricks TCA Negative Normal NEGATIVE [facility] Comment on above: Performed By: #### U MICRO, UACSIND #### [facility] [address] [place] [address] Dr. Cyril Hendricks THC Negative Normal NEGATIVE [facility] Comment on above: Performed By: #### U MICRO, UACSIND #### [facility] [address] [place] [address] Dr. Cyril Hendricks TYPE AND SCREENon 01-07-2022 TYPE AND SCREEN Negative Normal [facility] Comment on above: Performed By: #### H CVPCRR #### [facility] [address] [place] [address] Dr. Cyril Hendricks CULTURE URINEon 12-29-2021 CULTURE URINE Culture Observations: NO GROWTH. Normal [facility] Comment on above: Performed By: #### U RCX #### [facility] [address] [place] [address] Dr. Cyril Hendricks UA (CLEAN/CATCH) DISTRICT SCOUT EXECUTIVE/MICRO I F IND.on 12-29-2021 Bilirubin Ql (U) Negative Normal NEGATIVE [facility] Comment on above: Performed By: #### U MICRO, UACSIND #### [facility] [address] [place] [address] Dr. Cyril Hendricks Clarity (U) SL CLOUDY Abnormal CLEAR [facility] Comment on above: Performed By: #### U MICRO, UACSIND #### [facility] [address] [place] [address] Dr. Cyril Hendricks Color (U) LT. YELLOW Normal YELLOW [facility] Comment on above: Performed By: #### U MICRO, UACSIND #### [facility] [address] [place] [address] Dr. Cyril Hendricks Glucose Ql (U) Negative Normal NEGATIVE [facility] Comment on above: Performed By: #### U MICRO, UACSIND #### [facility] [address] [address] [address] Cyril Hendricks Hemoglobin Ql (U) Negative Normal NEGATIVE [facility] Comment on above: Performed By: #### U MICRO, UACSIND #### [facility] [address] [address] [address] Cyril Hendricks Ketones Ql (U) Negative Normal NEGATIVE [facility] Comment on above: Performed By: #### U MICRO, UACSIND #### [facility] [address] [address] [address] Cyril Hendricks LEUKOCYTES LARGE Abnormal NEGATIVE [facility] Comment on above: Performed By: #### U MICRO, UACSIND #### [facility] [address] [place] [address] Dr. Cyril Hendricks Nitrite Ql (U) Negative Normal NEGATIVE [facility] Comment on above: Performed By: #### U MICRO, UACSIND #### [facility] [address] [place] [address] Dr. Cyril Hendricks pH (U) 6.5 [pH] Normal 5-9 [facility] Comment on above: Performed By: #### U MICRO, UACSIND #### [facility] [address] [place] [address] Dr. Cyril Hendricks SPEC GRAVITY 1.010 Normal 1.005-<=1.02 5 [facility] Comment on above: Performed By: #### U MICRO, UACSIND #### [facility] [address] [address] [address] Cyril Hendricks UA PROTEIN Negative Normal NEGATIVE/ TRACE [facility] Comment on above: Performed By: #### U MICRO, UACSIND #### [facility] [address] [place] [address] Dr. Cyril Hendricks UR MICRO IND INDICATED Normal [facility] Comment on above: Performed By: #### U MICRO, UACSIND #### [facility] [address] [place] [address] Dr. Cyril Hendricks Urobilinogen Qn (U) 0.2 {Georgina'U}/dL Normal 0.2 - 1. 0 [facility] Comment on above: Performed By: #### U MICRO, UACSIND #### [facility] [address] [address] [address] Cyril Hendricks URINE MICROSCOPIC ONLYon BACTERIA SMALL Abnormal NONE SEEN [facility] Comment on above: Performed By: #### U MICRO, UACSIND #### [facility] [address] [address] [address] Cyril Hendricks Bacteria identified Cx Nom (U) INDICATED Normal [facility] Comment on above: Performed By: #### U MICRO, UACSIND #### [facility] [address] [place] [address] Dr. Cyril Hendricks CAST NONE SEEN Normal NONE SEEN [facility] Comment on above: Performed By: #### U MICRO, UACSIND #### [facility] [address] [place] [address] Dr. Cyril Hendricks Crystals LM Nom (Urine sed) NONE SEEN Normal NONE SEEN [facility] Comment on above: Performed By: #### U MICRO, UACSIND #### [facility] [address] [place] [address] Dr. Cyril Hendricks Epithelial cells LM Ql (Urine sed) MANY Abnormal NONE SEEN /RARE [facility] Comment on above: Performed By: #### U MICRO, UACSIND #### [facility] [address] [place] [address] Dr. Cyril Hendricks MUCOUS NONE SEEN Normal NONE SEEN [facility] Comment on above: Performed By: #### U MICRO, UACSIND #### [facility] [address] [place] [address] Dr. Cyril Hendricks RBC 0-2 Normal 0-2 [facility] Comment on above: Performed By: #### U MICRO, UACSIND #### [facility] [address] [place] [address] Dr. Cyril Hendricks WBC 10-20 Abnormal NONE SEEN [facility] Comment on above: Performed By: #### U MICRO, UACSIND #### [facility] [address] [address] [address] Cyril Hendricks GROUP B STREP CULTUREon 12-07 S. agalactiae Ag Ql (Unsp spec) Culture Observations: NEGATIVE FOR GROUP B STREPTOCOCCUS. Normal [facility] Comment on above: Performed By: #### G BSCX #### [facility] [address] [address] [address] Cyril Hendricks SSAon 12-13-2021 SSA <0.3 Normal <7.0 [facility] Comment on above: Result Comment: Reference Range: <7.0 Negative 7.0-10.0 Equivocal >10.0 Positive Performed By: #### S SARO, TSH, FT4, SSBLA #### [employer] [address] [place] [id number] Manager Of Employee Relations: Homer Hoffman MD SSBon 12-13-2021 SSB <0.3 Normal <7.0 [facility] Comment on above: Result Comment: Reference Range: <7.0 Negative 7.0-10.0 Equivocal >10.0 Positive Performed By: #### S SARO, TSH, FT4, SSBLA #### [employer] [address] [place] [id number] Manager Of Employee Relations: Homer Hoffman MD No Panel Informationon 12-12 [facility] T4, Freeon 12-12-2021 Thyroxine, Free 0.98 ng/dL 0.93 - 1.70 ng/dL [facility] TSHon 12-12-2021 TSH Qn 4.35 m[IU]/L [facility] Thyroid Stim. Horm.on 2021 Thyroid Stim. Horm. 4.35 uIU/mL Normal 0.30-5.00 [facility] Comment on above: Performed By: #### S SARO, TSH, FT4, SSBLA #### [employer] [address] [place] [id number] Manager Of Employee Relations: Homer Hoffman MD Thyroxine, Freeon 12-12-2021 Thyroxine, Free 0.98 ng/dL Normal 0.93-1.70 [facility] Comment on above: Performed By: #### S SARO, TSH, FT4, SSBLA #### [facility] [address] [place] [address] Manager Of Employee Relations: Homer Hoffman MD US PREG BIOPHY W [...] by: SOFIA KABA Date: 2021-11-27 13:55 Normal [facility] COVID + FLU Quick Testingon 11-13-2021 SARS-CoV-2 (COVID-19) RNA ALFREDO+probe Ql (Unsp spec) Negative [email or web address] [facility] Other COVID + FLU Quick Testing Negative [employer] Other GLUCOSE - 1HRon 10-23-2021 Glucose [Mass/Vol] 83 mg/dL Normal 74-106 [facility] Comment on above: Performed By: #### G LU1HR #### [facility] [address] [place] [address] Dr. Cyril Hendricks CHLAMYDIA/GONOCOCCUS ALFREDO (SW AB/URINE/PAPon 10-05-2021 Chlamydia trachomatis, ALFREDO Negative Normal Negative [facility] Comment on above: Performed By: #### C T/NGNA #### [facility] [address] [place] [address] Dr. Cyril Hendricks Neisseria gonorrhoeae, ALFREDO Negative Normal Negative [facility] Comment on above: Performed By: #### C T/NGNA #### [facility] [address] [place] [address] Dr. Cyril Hendricks VAGINITIS/VAGINOSIS DNA PROB Maurice 10-04-2021 Krista species Positive Abnormal Negative [facility] Comment on above: Performed By: #### H CVPCRR #### [facility] [address] [place] [address] Dr. Cyril Hendricks Gardnerella vaginalis Negative Normal Negative [facility] Comment on above: Performed By: #### H CVPCRR #### [facility] [address] [place] [address] Dr. Cyril Hendricks Trichomonas vaginalis Negative Normal Negative [facility] Comment on above: Performed By: #### H CVPCRR #### [facility] [address] [place] [address] Dr. Cyril Hendricks HEP B SURFACE ANTIGEN SCREEN on 10-03-2021 HBsAg Screen Negative Normal Negative [facility] Comment on above: Performed By: #### H CVPCRR #### [facility] [address] [place] [address] Dr. Cyril Hendricks HEPATITIS C VIRUS AB W/ REFL EX QUANTon 10-03-2021 HCV AB <0.1 Normal 0.0-0.9 [facility] Comment on above: Performed By: #### H CVPCRR #### [facility] [address] [place] [address] Dr. Cyril Hendricks Interpretation: Comment Normal [facility] Comment on above: Result Comment: Nega tive Not infected with HCV, unless recent infection is suspected or other evidence exists to indicate HCV infection. Performed By: #### H CVPCRR #### [facility] [address] [place] [address] Dr. Cyril Hendricks HIV 1 AND 2 WITH REFLEXon HIV Screen 4th Generation wRfx Non-Reactive Normal Non Reactive [facility] Comment on above: Result Comment: HIV Negative HIV-1/HIV-2 antibodies and HIV-1 p24 antigen were NOT detected. There is no laboratory evidence of HIV infection. Performed By: #### H IV12 #### [facility] [address] [place] [address] Dr. Cyril Hendricks RPR QUANTon 10-03-2021 Rapid Plasma Reagin, Quant Non-Reactive Normal NonRea<1:1 [facility] Comment on above: Result Comment: Juliette brito Note: This test does not meet current guidelines for screening and diagnosis of syphilis. This test is intended for following treatment response in patients being treated for syphilis infection. To screen for syphilis infection, a reflex cascade that includes both RPR and a treponema-specific assay should be utilized, such as Treponema pallidum (Syphilis) Screening Marshall (380185) or Rapid Plasma Reagin (RPR) Test With Reflex to Quantitative RPR and Confirmatory Treponema pallidum Antibodies (120335). Performed By: #### U MICRO, UACSIND #### [facility] [address] [place] [address] Dr. Cyril Hendricks RUBELLA AB IGGon 10-03-2021 Rubella Antibodies, IgG <0.90 Critically low Immune > 0.99 [facility] Comment on above: Result Comment: Non- immune <0.90 Equivocal 0.90 - 0.99 Immune >0.99 Performed By: #### U MICRO, UACSIND #### [facility] [address] [place] [address] Dr. Cyril Hendricks CBC AUTO DIFFon 10-02-2021 BASO # 0.1 103/ul Normal 0.0-0.1 [facility] Comment on above: Performed By: #### U MICRO, UACSIND #### [facility] [address] [place] [address] Dr. Cyril Hendricks Basophils/100 WBC (Bld) 0.4 % Normal 0.2-2.0 [facility] Comment on above: Performed By: #### U MICRO, UACSIND #### [facility] [address] [place] [address] Dr. Cyril Hendricks EO # 0.1 103/ul Normal 0.0-0.7 [facility] Comment on above: Performed By: #### U MICRO, UACSIND #### [facility] [address] [place] [address] Dr. Cyril Hendricks Eosinophils/100 WBC (Bld) 1.1 % Normal 0.9-7.0 [facility] Comment on above: Performed By: #### U MICRO, UACSIND #### [facility] [address] [place] [address] Dr. Cyril Hendricks Erythrocyte distribution width (RBC) [Ratio] 13.5 % Normal 11.0-15.0 [facility] Comment on above: Performed By: #### U MICRO, UACSIND #### [facility] [address] [place] [address] Dr. Cyril Hendricks Hematocrit (Bld) [Volume fraction] 34.5 % Critically low 36.0-48.0 [facility] Comment on above: Performed By: #### U MICRO, UACSIND #### [facility] [address] [place] [address] Dr. Cyril Hendricks Hemoglobin (Bld) [Mass/Vol] 12.0 g/dL Normal 12.0-16.0 [facility] Comment on above: Performed By: #### U MICRO, UACSIND #### [facility] [address] [place] [address] Dr. Cyril Hendricks IG # 0.04 10e3/ul Critically high 0.00-0.03 [facility] Comment on above: Performed By: #### U MICRO, UACSIND #### [facility] [address] [place] [address] Dr. Cyril Hendricks IG % 0.3 % Normal 0.0-0.5 [facility] Comment on above: Performed By: #### U MICRO, UACSIND #### [facility] [address] [place] [address] Dr. Cyril Hendricks LYMPH # 2.6 103/ul Normal 1.2-3.8 [facility] Comment on above: Performed By: #### U MICRO, UACSIND #### [facility] [address] [place] [address] Dr. Cyril Hendricks Lymphocytes/100 WBC (Bld) 21.3 % Normal 20.5-60.0 [facility] Comment on above: Performed By: #### U MICRO, UACSIND #### [facility] [address] [address] [address] Cyril Hendricks MANUAL DIFF REQ NO Normal [facility] Comment on above: Performed By: #### U MICRO, UACSIND #### [facility] [address] [address] [address] Cyril Hendricks MCH (RBC) [Entitic mass] 32.5 pg Normal 26.7-34.0 [facility] Comment on above: Performed By: #### U MICRO, UACSIND #### [facility] [address] [place] [address] Dr. Cyril Hendricks MCHC (RBC) [Mass/Vol] 34.8 g/dL Normal 29.9-35.2 [facility] Comment on above: Performed By: #### U MICRO, UACSIND #### [facility] [address] [place] [address] Dr. Cyril Hendricks MCV (RBC) [Entitic vol] 93.5 fL Normal 81.0-99.0 [facility] Comment on above: Performed By: #### U MICRO, UACSIND #### [facility] [address] [place] [address] Dr. Cyril Hendricks MONO # 0.8 103/ul Normal 0.3-0.8 [facility] Comment on above: Performed By: #### U MICRO, UACSIND #### [facility] [address] [place] [address] Dr. Cyril Hendricks Monocytes/100 WBC (Bld) 6.2 % Normal 1.7-12.0 [facility] Comment on above: Performed By: #### U MICRO, UACSIND #### [facility] [address] [place] [address] Dr. Cyril Hendricks NEUT # 8.6 103/ul Critically high 1.4-6.5 [facility] Comment on above: Performed By: #### U MICRO, UACSIND #### [facility] [address] [place] [address] Dr. Cyril Hendricks Neutrophils/100 WBC (Bld) 70.7 % Normal 43.0-75.0 [facility] Comment on above: Performed By: #### U MICRO, UACSIND #### [facility] [address] [address] [address] Cyril Hendricks Platelet mean volume (Bld) [Entitic vol] 9.1 fL Critically low 9.5-13.5 [facility] Comment on above: Performed By: #### U MICRO, UACSIND #### [facility] [address] [address] [address] Cyril Hendricks PLT 257 103/ul Normal 150-450 [facility] Comment on above: Performed By: #### U MICRO, UACSIND #### [facility] [address] [address] [address] Cyril Hendricks RBC 3.69 106/ul Critically low 4.20-5.40 [facility] Comment on above: Performed By: #### U MICRO, UACSIND #### [facility] [address] [address] [address] Cyril Hendricks WBC 12.2 103/ul Critically high 4.0-11.0 [facility] Comment on above: Performed By: #### U MICRO, UACSIND #### [facility] [address] [address] [address] Cyril Hendricks CULTURE URINEon 10-02-2021 CULTURE URINE Culture Observations: MODERATE GROWTH OF MIXED GENITAL DRAGAN. NO POTENTIAL PATHOGENS SEEN. Normal [facility] Comment on above: Performed By: #### H CVPCRR #### [facility] [address] [place] [address] Dr. Cyril Hendricks GLYCOHEMOGLOBIN A1Con 2021 ADA RECOMMENDATION SEE BELOW Normal [facility] Comment on above: Result Comment: ADA RECOMMENDED LIMIT 4.0 - 6.0 ADA THERAPEUTIC TARGET < 7.0 ACTION SUGGESTED > 7.0 Performed By: #### H CVPCRR #### [facility] [address] [place] [address] Dr. Cyril Hendricks Glucose [Mass/Vol] 80 mg/dL Normal [facility] Comment on above: Performed By: #### H CVPCRR #### [facility] [address] [place] [address] Dr. Cyril Hendricks HbA1c (Bld) [Mass fraction] 4.4 % Critically low 4.5-6.2 [facility] Comment on above: Performed By: #### H CVPCRR #### [facility] [address] [address] [address] Cyril Hendricks TYPE AND SCREENon 10-02-2021 TYPE AND SCREEN Negative Normal [facility] Comment on above: Performed By: #### H CVPCRR #### [facility] [address] [address] [address] Cyril Hendricks US PREG PLACENTAon 2 [...] SOFIA KABA Date: 2021-10-02 10:47 Normal [facility] US PREG ANATOMY SINGLEon US PREG ANATOMY [...] (44% by ultrasound, 29% by expected) FL/AC: [id number] FL/BPD: [id number] HC/AC: [id number] GESTATIONAL AGE: Age by EDC: 21 weeks, 3 days NOY by EDC: 01/12/2022 Age by current US: 21 weeks, 1 day NOY by current US: 01/14/2022 IMPRESSION: 1. Single live intrauterine with growth detailed above. 2. Posterior, low-lying placenta. Electronically authenticated by: MARS FRANKEL Date: 2021-09-04 16:30 Normal [facility] Vital Signs Date Time Vital Sign Value Performing Clinician Facility 02-03-2024 09:23-0400 Body temperature 97.88 [degF] Siva Schulte [facility] 02-03-2024 09:23-0400 Diastolic blood pressure 70 mm[Hg] Siva Schulte [facility] 02-03-2024 09:23-0400 Heart rate 85 /min Siva Schulte [facility] 02-03-2024 09:23-0400 Respiratory rate 18 /min Siva Schulte [facility] 02-03-2024 09:23-0400 SaO2% (BldA) [Mass fraction] 99 % Siva Schulte [facility] 02-03-2024 09:23-0400 Systolic blood pressure 106 mm[Hg] Siva Schulte [facility] 09-23-2023 09:16-0400 Body temperature 98.42 [degF] Wil Chandra [facility] 09-23-2023 09:16-0400 Diastolic blood pressure 68 mm[Hg] Wil Chandra [facility] 09-23-2023 09:16-0400 Heart rate 82 /min Wil Chandra [facility] 09-23-2023 09:16-0400 Respiratory rate 18 /min Wil Chandra [facility] 09-23-2023 09:16-0400 SaO2% (BldA) [Mass fraction] 97 % Wil Chandra [facility] 09-23-2023 09:16-0400 Systolic blood pressure 98 mm[Hg] Wil Chandra [facility] 08-27-2023 12:24-0400 Diastolic blood pressure 61 mm[Hg] [facility] 08-27-2023 12:24-0400 Heart rate 77 /min [facility] 08-27-2023 12:24-0400 Mean blood pressure 72 mm[Hg] [facility] 08-27-2023 12:24-0400 Respiratory rate 16 /min [facility] 08-27-2023 12:24-0400 SaO2% (BldA) [Mass fraction] 97 % [facility] 08-27-2023 12:24-0400 Systolic blood pressure 93 mm[Hg] [facility] 08-27-2023 11:30-0400 Diastolic blood pressure 69 mm[Hg] [facility] 08-27-2023 11:30-0400 Heart rate 74 /min [facility] 08-27-2023 11:30-0400 Mean blood pressure 82 mm[Hg] [facility] 08-27-2023 11:30-0400 Respiratory rate 16 /min [facility] 08-27-2023 11:30-0400 SaO2% (BldA) [Mass fraction] 99 % [facility] 08-27-2023 11:30-0400 Systolic blood pressure 107 mm[Hg] [facility] 08-27-2023 10:30-0400 Diastolic blood pressure 62 mm[Hg] [facility] 08-27-2023 10:30-0400 Heart rate 91 /min [facility] 08-27-2023 10:30-0400 Mean blood pressure 77 mm[Hg] [facility] 08-27-2023 10:30-0400 Respiratory rate 18 /min [facility] 08-27-2023 10:30-0400 SaO2% (BldA) [Mass fraction] 100 % [facility] 08-27-2023 10:30-0400 Systolic blood pressure 107 mm[Hg] [facility] 08-27-2023 09:41-0400 Body temperature 98.6 [degF] [facility] 08-27-2023 09:41-0400 Heart rate 80 /min [facility] 01-04-2023 00:03-0400 Body temperature 98.78 [degF] Siva Schulte [facility] 01-04-2023 00:03-0400 Diastolic blood pressure 54 mm[Hg] Siva Schulte [facility] 01-04-2023 00:03-0400 Heart rate 97 /min Siva Schulte [facility] 01-04-2023 00:03-0400 Mean blood pressure 70 mm[Hg] Siva Schulte [facility] 01-04-2023 00:03-0400 Respiratory rate 18 /min Siva Schulte [facility] 01-04-2023 00:03-0400 SaO2% (BldA) [Mass fraction] 94 % Svia Schulte [facility] 01-04-2023 00:03-0400 Systolic blood pressure 102 mm[Hg] Siva Eris [facility] 01-03-2023 23:00-0400 Body temperature 100.04 [degF] Siva Eris [facility] 01-03-2023 23:00-0400 Diastolic blood pressure 62 mm[Hg] Siva Eris [facility] 01-03-2023 23:00-0400 Heart rate 100 /min Siva Eris [facility] 01-03-2023 23:00-0400 Mean blood pressure 75 mm[Hg] Siva Eris [facility] 01-03-2023 23:00-0400 Systolic blood pressure 100 mm[Hg] Siva Eris [facility] 01-03-2023 22:42-0400 Body temperature 100.76 [degF] Siva Eris [facility] 01-03-2023 22:42-0400 Diastolic blood pressure 59 mm[Hg] Siva Eris [facility] 01-03-2023 22:42-0400 Heart rate 105 /min Siva Eris [facility] 01-03-2023 22:42-0400 Respiratory rate 20 /min Siva Schulte [facility] 01-03-2023 22:42-0400 SaO2% (BldA) [Mass fraction] 99 % Siva Schulte [facility] 01-03-2023 22:42-0400 Systolic blood pressure 96 mm[Hg] Siva Eris [facility] 10-02-2022 21:29-0400 Diastolic blood pressure 72 mm[Hg] PHYSICIAN NO [facility] 10-02-2022 21:29-0400 Heart rate 94 /min PHYSICIAN NO [facility] 10-02-2022 21:29-0400 Respiratory rate 18 /min PHYSICIAN NO [facility] 10-02-2022 21:29-0400 SaO2% (BldA) [Mass fraction] 98 % PHYSICIAN NO [facility] 10-02-2022 21:29-0400 Systolic blood pressure 141 mm[Hg] PHYSICIAN NO [facility] 10-02-2022 17:03-0400 Body height 170.18 cm PHYSICIAN NO [facility] 10-02-2022 17:03-0400 Body temperature 98.3 [degF] PHYSICIAN NO [facility] 10-02-2022 17:03-0400 Body weight 76.4 kg PHYSICIAN NO [facility] 09-25-2022 13:25-0400 Body height 170.18 cm Viet Yuri Other [facility] Other 09-25-2022 13:25-0400 Body mass index (BMI) [Ratio] 26.62 kg/m2 Viet Welch Other [facility] Other 09-25-2022 13:25-0400 Body temperature 98.2 [degF] Viet Welch Other [facility] Other 09-25-2022 13:25-0400 Body weight 77.11 kg Viet Welch Other [facility] Other 09-25-2022 13:25-0400 Diastolic blood pressure 68 mm[Hg] Viet Welch Other [facility] Other 09-25-2022 13:25-0400 Respiratory rate 18 /min Viet Welch Other [facility] [employer] Other 09-25-2022 13:25-0400 SaO2% (BldA) [Mass fraction] 98 % Viet Welch Other [facility] Other 09-25-2022 13:25-0400 Systolic blood pressure 107 mm[Hg] Viet Welch Other [facility] Other 09-06-2022 13:54-0400 Diastolic blood pressure 72 mm[Hg] Wil Corazon [facility] 09-06-2022 13:54-0400 Heart rate 60 /min Wil Corazon [facility] 09-06-2022 13:54-0400 Respiratory rate 16 /min Wil Corazon [facility] 09-06-2022 13:54-0400 SaO2% (BldA) [Mass fraction] 100 % Wil Corazon [facility] 09-06-2022 13:54-0400 Systolic blood pressure 103 mm[Hg] Wil Corazon [facility] 09-06-2022 11:41-0400 Diastolic blood pressure 65 mm[Hg] Wil Corazon [facility] 09-06-2022 11:41-0400 Heart rate 58 /min Wil Corazon [facility] 09-06-2022 11:41-0400 Mean blood pressure 77 mm[Hg] Wil Corazon [facility] 09-06-2022 11:41-0400 Respiratory rate 16 /min Wil Corazon [facility] 09-06-2022 11:41-0400 SaO2% (BldA) [Mass fraction] 100 % Wil Corazon [facility] 09-06-2022 11:41-0400 Systolic blood pressure 102 mm[Hg] Wil Corazon [facility] 09-06-2022 10:42-0400 Body temperature 98.24 [degF] Wil Chandra [facility] 09-06-2022 10:42-0400 bodymassindex 1.17 Wil Chandra [facility] Comment on above: Result Comment: [facility] 10:42-0400 Diastolic blood pressure 71 mm[Hg] Wil Jollye [facility] 09-06-2022 10:42-0400 Heart rate 73 /min Wil Chandra [facility] 09-06-2022 10:42-0400 Height/Length Percentile 84.89 Wil Chandra [facility] Comment on above: Result Comment: ^~:![facility] 09-06-2022 10:42-0400 Height/Length Z-Score 1.03 Wil Chandra [facility] Comment on above: Result Comment: ^~:![facility] 09-06-2022 10:42-0400 Respiratory rate 16 /min Wil Chandra [facility] 09-06-2022 10:42-0400 SaO2% (BldA) [Mass fraction] 98 % Wil Chandra [facility] 09-06-2022 10:42-0400 Systolic blood pressure 111 mm[Hg] Wil Chandra [facility] 09-06-2022 10:42-0400 weight 1.47 Wil Jollye [facility] Comment on above: Result Comment: [facility] 09-06-[facility] 10:42-0400 Weight Percentile 92.90 % Wil Chandra [facility] Comment on above: Result Comment: ^~:!Percentile Source -[facility] 08-14-2022 21:30-0500 Diastolic blood pressure 79 mm[Hg] Bob Llanos [facility] 08-14-2022 21:30-0500 Heart rate 87 /min Bob Llanos [facility] 08-14-2022 21:30-0500 Mean blood pressure 93 mm[Hg] Bob Llanos [facility] 08-14-2022 21:30-0500 Nursing Progress Note Reason Other: pt to US via stretcher at this time. Bob Llanos [facility] 08-14-2022 21:30-0500 Respiratory rate 16 /min Bob Llanos [facility] 08-14-2022 21:30-0500 SaO2% (BldA) [Mass fraction] 100 % Bob Lalnos [facility] 08-14-2022 21:30-0500 Systolic blood pressure 120 mm[Hg] Bob Llanos [facility] 08-14-2022 19:20-0500 Body temperature 98.96 [degF] Bob Llanos [facility] 08-14-2022 19:20-0500 bodymassindex 1.17 Bob Llanos [facility] Comment on above: Result Comment: ^~:!ZScore Source -[facility] 08-14-2022 19:20-0500 Diastolic blood pressure 61 mm[Hg] Bob Llanos [facility] 08-14-2022 19:20-0500 Heart rate 98 /min Bob Llanos [facility] 08-14-2022 19:20-0500 Height/Length Percentile 84.91 Bob Llanos [facility] Comment on above: Result Comment: ^~:!Percentile Source -[facility] 08-14-2022 19:20-0500 Height/Length Z-Score 1.03 Bob Llanos [facility] Comment on above: Result Comment: ^~:[facility] 08-14-2022 19:20-0500 Respiratory rate 16 /min Bob Llanos [facility] 08-14-2022 19:20-0500 SaO2% (BldA) [Mass fraction] 99 % Bob Llanos [facility] 08-14-2022 19:20-0500 Systolic blood pressure 114 mm[Hg] Bob Llanos [facility] 08-14-2022 19:20-0500 weight 1.47 Bob Llanos [facility] Comment on above: Result Comment: ^~:![facility] 08-14-2022 19:20-0500 Weight Percentile 92.94 % Bob Llanos [facility] Comment on above: Result Comment: ^~:!Percentile Source -[facility] 06-24-2022 13:30-0500 Body height 170.18 cm Viet Welch Other [facility] Other 06-24-2022 13:30-0500 Body mass index (BMI) [Ratio] 26.62 kg/m2 Viet Welch Other [facility] Other 06-24-2022 13:30-0500 Body temperature 97.8 [degF] Viet Welch Other [facility] Other 06-24-2022 13:30-0500 Body weight 77.11 kg Viet Welch Other [facility] Other 06-24-2022 13:30-0500 Diastolic blood pressure 63 mm[Hg] Viet Welch Other [facility] Other 06-24-2022 13:30-0500 Respiratory rate 18 /min Viet Welch Other [facility] Other 06-24-2022 13:30-0500 SaO2% (BldA) [Mass fraction] 98 % Viet Welch Other [facility] Other 06-24-2022 13:30-0500 Systolic blood pressure 97 mm[Hg] Viet Welch Other [facility] Other 11-13-2021 14:05-0400 Body height 170.18 cm Michael Clarice Other [facility] Other 11-13-2021 14:05-0400 Body mass index (BMI) [Ratio] 26.62 kg/m2 Michael Oneil Other [facility] Other 11-13-2021 14:05-0400 Body temperature 98.4 [degF] Michael Oneil Other [facility] Other 11-13-2021 14:05-0400 Body weight 77.11 kg Michael Oneil Other [facility] Other 11-13-2021 14:05-0400 Respiratory rate 18 /min Michael Oneil Other [facility] Other 11-13-2021 14:05-0400 SaO2% (BldA) [Mass fraction] 98 % Michael Oneil Other [facility] Other 11-06-2021 15:45-0400 Body height Kendra Witt Other [facility] Other 11-06-2021 15:45-0400 Body mass index (BMI) [Ratio] 26.62 kg/m2 Kendra Witt Other [facility] Other 11-06-2021 15:45-0400 Body weight 77.11 kg Kendra Witt Other [facility] Other 11-06-2021 15:45-0400 Respiratory rate 20 /min Kendra Witt Other [facility] Trans Other 11-06-2021 15:45-0400 SaO2% (BldA) [Mass fraction] 98 % Kendra Witt Other [employer] Other Encounters Encounter Date Encounter Type Care Provider Facility Start: 02-03-2024 End: 02-03-2024 Emergency department patient visit Siva Schulte [facility] Start: 01-26-2024 End: 01-26-2024 ambulatory JUVENAL MIRI Not Available Start: 12-29-2023 End: 12-29-2023 ambulatory GONSALO CORRAL Not Available Start: 12-22-2023 End: 12-22-2023 ambulatory JUVENAL R [facility] Start: 12-01-2023 End: 12-01-2023 ambulatory JUVENAL MIRI Not Available Start: 11-10-2023 End: 11-10-2023 ambulatory JUVENAL R [facility] Start: 10-27-2023 End: 10-27-2023 ambulatory GONSALO ELLIS Not Available Start: 09-29-2023 End: 09-29-2023 ambulatory JUVENAL MIRI Not Available Start: 09-23-2023 End: 09-23-2023 Emergency department patient visit Wil Corazon [facility] Start: 09-04-2023 End: 09-04-2023 ambulatory JUVENAL THORPE Not Available Start: 08-27-2023 End: 08-27-2023 Emergency department patient visit Emily Harper [facility] Start: 08-18-2023 End: 08-18-2023 ambulatory SELAM ELSA Facility[facility] Start: 01-03-2023 End: 01-04-2023 Emergency department patient visit Siva Schulte [facility] Start: 12-12-2022 End: 12-12-2022 ambulatory Kenneth Mills Other [employer] Other Start: 12-12-2022 Telephone encounter Kenneth Mills [facility] [place] Start: 10-02-2022 End: 10-02-2022 Emergency department patient visit Jose Silverman Facility:[facility] Start: 10-02-2022 End: 10-02-2022 Emergency department patient visit PHYSICIAN SJ LERNER [facility] Work Phone: Start: 09-25-2022 End: 09-25-2022 ambulatory Viet Welch Other [email or web address] [facility] Other Start: 09-25-2022 Office outpatient visit 15 minutes Viet Welch [facility] Start: 09-06-2022 End: 09-06-2022 Emergency department patient visit Wil Chandra [facility] Start: 08-14-2022 End: 08-14-2022 Emergency department patient visit Bob Llanos [facility] Start: 07-11-2022 End: 07-11-2022 ambulatory ROSEANN CORRAL Facility:[facility] Start: 06-24-2022 End: 06-24-2022 ambulatory Viet Welch Other [employer] Other Start: 06-24-2022 Office outpatient visit 15 minutes Viet Welch [facility] Start: 01-11-2022 End: 01-11-[address] EZEQUIEL CURTIS Facility:[facility] Start: 01-07-2022 End: 01-09-2022 Evaluation and management of inpatient DR RENATA GEORGES Facility:[facility] Start: 12-29-2021 End: 12-29-[address] JUVENAL THORPE Facility:[facility] Start: 12-19-2021 End: 12-19-[address] JUVENAL THORPE Facility:[facility] Start: 12-12-2021 End: 12-13-[address] [facility] Start: 12-12-2021 End: 12-12-2021 Subsequent hospital visit by physician [facility] Start: 11-27-2021 End: 11-27-[address] SOFIA KABA Facility:[facility] Start: 11-13-2021 End: 11-13-2021 ambulatory Michael Oneil Other [employer] Other Start: 11-13-2021 Office outpatient visit 15 minutes Michael Oneil [facility] Start: 11-06-2021 End: 11-06-2021 ambulatory Kendra Witt Other [employer] Other Start: 11-06-2021 Office outpatient visit 25 minutes Kendra Witt [facility] Start: 10-23-2021 End: 10-24-[address] [...] identified in Urine by Culture Urine Culture [facility] Start: 02-07-2022 Influenza vaccination Flu vaccine (# 1) [facility] Start: 01-09-2022 End: 01-09-2022 Patient encounter procedure 01/09/2022 Routine Perinatology [facility] Start: 01-02-2022 End: 01-02-2022 Patient encounter procedure 01/02/2022 Routine Perinatology [facility] Start: 12-26-2021 End: 12-26-2021 Patient encounter procedure 12/26/2021 Routine Perinatology [facility] Start: 12-20-2021 End: 12-20-2021 Patient encounter procedure 12/20/2021 Routine Perinatology [facility] Start: 2021 DTaP/Tdap/Td vaccine (1 - Tdap) DTaP/Tdap/Td vaccine (1 - Tdap) [facility] Start: 2020 Hepatitis C screening Hepatitis C sc reen [facility] Start: 2018 Screening for Chlamy nazanin trachomatis Chlamydia screen [facility] Start: 2017 HIV screening HIV screen [facility] Start: 2014 Depression Monitoring Depression Mon itoring [facility] Start: 2013 HPV vaccine (1 - 2-d ose series) HPV vaccine (1 - 2-dose series) [facility] Start: 09-16-2007 COVID-19 Vaccine (1) COVID-19 Vaccin e (1) [employer] Start: 09-16-2003 Varicella vaccine (1 of 2 - 2-dose childhood series) Varicella vaccine (1 of 2 - 2-dose childhood series) [facility] Patient Education Depression, Adult ED [facility] Work Phone: Patient referral [facility] Work Phone: End: 12-12-2021 Sjogrens syndrome-A extractable nuclear antibody [employer] [facility] Work Phone: Comment on above: Once for 1 Occurrenc es starting 12/12/2021 until 12/12/2021 End: 12-12-2021 Sjogrens syndrome-B extractable nuclear antibody [facility] Work Phone: Comment on above: Once for 1 Occurrenc es starting 12/12/2021 until 12/12/2021 Immunizations Immunization Date Immunization Notes Care Provider Simona galarza NEGATED: Highlighted row has not occurred!11-05-2019 influenza, injectable, quadrivalent, contains preservative Kendra Witt Other [employer] Other NEGATED: Highlighted row has not occurred!04-10-2019 influenza virus vaccine, unspecified formulation Bob Llanos [facility] Payers Date Payer Category Payer Self-pay [id number] 2002 Unknown [id number] 2.16. [id number] 2002 Unknown [id number] 2.16.84 0.1.504695.3.579.2.593 2002 Unknown [id number] 2.16.84 0.1.766169.3.579.2.593 2002 Unknown [id number] 2.16.84 0.1.924621.3.579.2.593 2002 Unknown [id number] 2.16.84 0.1.973278.3.579.2.593 2002 Unknown [id number] 2.16.84 0.1.215023.3.579.2.593 2002 Unknown [id number] 2.16.84 0.1.264749.3.579.2.593 2002 Unknown [id number] 2.16.84 0.1.404148.3.579.2.593 2002 Unknown [id number] 2.16.84 0.1.473968.3.579.2.593 2002 Unknown [id number] 2.16.84 0.1.953527.3.579.2.593 2002 Unknown [id number] 2.16.84 0.1.100531.3.579.2.593 2002 Unknown [id number] 2.16.84 0.1.265878.3.579.2.593 2002 Unknown [id number] 2.16.8 40.1.723456.3.579.2.1286 2002 Unknown [id number] 2.16.8 40.1.695902.3.579.2.1286 2002 Unknown [id number] 2.16.8 40.1.059716.3.579.2.1286 2002 Unknown [id number] 2.16.84 0.1.390654.3.579.2.1259 2002 Unknown [id number] 2.16.84 0.1.158606.3.579.2.1259 2002 Unknown [id number] 2.16.84 0.1.126949.3.579.2.1259 2002 Unknown [id number] 2.16.84 0.1.604904.3.579.2.1259 2002 Unknown [id number] 2.16.84 0.1.116050.3.579.2.1259 2002 Unknown [id number] 2.16.84 0.1.960441.3.579.2.1259 2002 Unknown [id number] 2.16.8 40.1.759318.3.579.2.727 2002 Unknown [id number] 2.16.8 40.1.931733.3.579.2.727 2002 Unknown [id number] 2.16.8 40.1.614449.3.579.2.727 2002 Unknown [id number] 2.16.8 40.1.053988.3.579.2.727 2002 Unknown [id number] 2.16.8 40.1.069914.3.579.2.727 1959 Unknown [id number] 2.1 6.840.1.161367.19 1959 Unknown [id number] Unknown [id number] 2.16.8 40.1.437062.3.579.2.531 Social History Date Type Detail Facility Sex Assigned At [facility] Start: 11-28-2021 Tobacco smoking stat [facility] Never smoked tobacco [facility] Phone: Start: 11-28-2021 Tobacco use and exposure Smokeless tobacco non-user [facility] Phone: Start: 12-12-2021 Alcohol intake Ex-drinker (finding) [facility] Phone: Start: 12-12-2021 Tobacco Comment no longer vapes [facility] Phone: Start: 04-21-2021 [employer] Phone: Start: 2002 Sex Assigned At Not on file B ON [email or web address] Phone: Tobacco Current vaping o r e-cigarette use Smokeless Tobacco Use:. Vaping [facility] Tobacco smoking status No Smokin g Status Entered [facility] Start: 10-02-2022 Tobacco smoking stat us NHIS Smoker (finding) [facility] Start: 2002 Sex Assigned At Female F [facility] Functional Status Date Assessment Result Facility 02-03-2024 Functional Status N/A [facility] 09-23-2023 Functional Status N/A [facility] 08-27-2023 Functional Status N/A [facility] 01-03-2023 Functional Status N/A [facility] 09-06-2022 Functional Status N/A [facility] 08-14-2022 Functional Status N/A [facility] Clinical Notes 11-06-2021 to 02-03-2024 Note Date & Type Note Facility 02-03-2024 Evaluation + Plan note Extrac ruby from: Title:ED Note Author:Duc Sawnson PA-C te:02/03/24 Sore throat (J02.9: Acute ph aryngitis, unspecified) Viral URI (J06.9: Acute upper respiratory infection, unspecified) Orders: Group A Strep by PCR Rapid Strep w/rfx Diagnostic Tests Pending * Group A Strep by PCR 02/03/24 [facility] 08-27-2024 Hospital Discharge instructions Patient Education 02/03/2024 [...] medicines to help relieve symptoms, such as: Fhoa-kng-voubkfh cold medicines. Cough suppressants. Coughing is a [...] and other clear broths. General instructions Take zmbu-wpg-gcdumbr and prescription medicines only as told by [...] and water are not available, use hand planning analyst. Avoid touching your mouth, face, eyes, or [...] provider. Document Revised: 12/26/2021 Document Reviewed: 12/26/2021 [employer] Patient Education 2022 [employer]. Follow Up Care 02/03/2024 09:23:13 With:Juvenal THORPE Address: [address] , [place] [address]- Business (1) When:02/06/2024 11:12:27 With:SELAM HUNTER Address: [place] [address]- Business (1) When:02/06/2024 11:12:21 [facility] 08-27-2024 NoteED Patient Education Note Infectious Disease Upper Respiratory Infection, Adult An upper respiratory infection (URI) is a common viral infection of the nose, throat, and upper airpassages that lead to the lungs. The most common type of URI is the common cold. URIs usually get better on their own, without medical treatment. What are the causes? A URI is caused by a virus. You may catch a virus by: ? Breathing in droplets from an infected person's cough or sneeze. ? Touching something that has been exposed to the virus (is contaminated) and then touching your mouth, nose, or eyes. What increases the risk? You are more likely to get a URI if: ? You are very young or very old. ? You have close contact with others, such as at work, school, or a health care facility. ? You smoke. ? You have long-term (chronic) heart or lung disease. ? You have a weakened disease-fighting system (immune system). ? You have nasal allergies or asthma. ? You are experiencing a lot of stress. ? You have poor nutrition. What are the signs or symptoms? A URI usually involves some of the following symptoms: ? Runny or stuffy (congested) nose. ? Cough. ? Sneezing. ? Sore throat. ? Headache. ? Fatigue. ? Fever. ? Loss of appetite. ? Pain in your forehead, behind your eyes, and over your cheekbones (sinus pain). ? Muscle aches. ? Redness or irritation of the eyes. ? Pressure in the ears or face. How [...] usually get better on their own within 7?10 days. Medicines cannot cure URIs, but your health care provider may recommend certain medicines to help relieve symptoms, such as: ? Emhp-csw-mgqavgl cold medicines. ? Cough suppressants. Coughing is a type of defense against infection that helps to clear the respiratory system, so take these medicines only as recommended by your health care provider. ? Fever-reducing medicines. Follow these instructions at home: Activity ? Rest as needed. ? If you have a fever, stay home from work or school until your fever is gone or until your health care provider says your URI cannot spread to other people (is no longer contagious). Your health care provider may have you wear a face mask to prevent your infection from spreading. Relieving symptoms ? Gargle with a mixture of salt and water 3?4 times a day or as needed. To make salt water, completely dissolve ??1 tsp (3?6 g) of salt in 1 cup (237 mL) of warm water. ? Use a cool-mist humidifier to add moisture to the air. This can help you breathe more easily. Eating and drinking ? Drink enough fluid to keep your urine pale yellow. ? Eat soups and other clear broths. General instructions ? Take asic-poe-afvpkfc and prescription medicines only as told by your health care provider. Theseinclude cold medicines, fever reducers, and cough suppressants. ? Do not use any products that contain nicotine or tobacco. These products include cigarettes, chewing tobacco, and vaping devices, such as e-cigarettes. If you need help quitting, ask your health care provider. ? Stay away from secondhand smoke. ? Stay up to date on all immunizations, including the yearly (annual) flu vaccine. ? Keep all follow-up visits. This is important. How to prevent the spread of infection to others URIs can be contagious. To prevent the infection from spreading: ? Wash your hands with soap and water for at least 20 seconds. If soap and water are not available,use hand planning analyst. ? Avoid touching your mouth, face, eyes, or nose. ? Cough or sneeze into a tissue or your sleeve or elbow instead of into your hand or into the air. Contact a health care provider if: ? You are getting worse instead of better. ? You have a fever or chills. ? Your mucus is brown or red. ? You have yellow or brown discharge coming from your nose. ? You have pain in your face, especially when you bend forward. ? You have swollen neck glands. ? You have pain while swallowing. ? You have white areas in the back of your throat. Get help right away if: ? You have shortness of breath that gets worse. ? You have severe or persistent: ? Headache. ? Ear pain. ? Sinus pain. ? Chest pain. ? You have chronic lung disease along with any of the following: ? Making high-pitched whistling sounds when you breathe, most often when you breathe out (wheezing). ? Prolonged cough (more than 14 days). ? Coughing up blood. ? A change in your usual mucus. ? You have a stiff neck. ? You have changes in your: ? Vision. ? Hearing. ? Thinking. ? Mood. These symptoms m (more content not included)...[facility] 09-23-2023 Hospital Discharge instructions Patient Education 09/23/2023 11:52:16 [...] provider. Document Revised: 02/19/2021 Document Reviewed: 02/19/2021 [employer] Patient Education 2022 [employer]. Follow Up Care 09/23/2023 09:11:45 With:Juvenal THORPE Address: [address] [place] [address]- Business (1) When:09/26/2023 11:44:07 [facility]03-20-2024 Hospital Discharge instructions Patient Education 08/27/2023 12:34:16 [...] provider. Document Revised: 01/09/2022 Document Reviewed: 01/09/2022 [employer] Patient Education 2022 [employer]. 08/27/2023 12:34:16 Urinary Tract Infection, Adult, Qccp-lu-Nahx Urinary Tract Infection, Adult A urinary tract [...] Follow these instructions at home: Medicines Take cfmr-lko-lefbnpk and prescription medicines only as told by [...] provider. Document Revised: 01/05/2021 Document Reviewed: 01/05/2021 [employer] Patient Education 2022 [employer] 08/27/2023 12:34:16 Subchorionic Hematoma Subchorionic Hematoma [...] provider. Document Revised: 02/19/2021 Document Reviewed: 02/19/2021 [employer] Patient Education 2022 [employer]. Follow Up Care 08/27/2023 09:39:16 With:Juvenal THORPE Address: [address] , [place] [address] Business (1) When:08/30/2023 12:05:10 With:SELAM HUNTER Address: [facility] [place] [address] Business (1) When:Within 3 Day(s) [facility]03-20-2024 Evaluation + Plan noteExtracted from: Title:ED Note [...] day(s), # 28 cap(s), Refills(s) 0, Pharmacy: [facility], 170, cm, 08/27/23 9:49:00 EDT, Height/Length Dosing, 78.7, kg, 08/27/23 9:49:00 EDT, Weight Dosing ABO/Rh Basic Metabolic Panel Beta hCG Quantitative CBC w/ Auto Diff eGFR Extra Blue Tube Extra SST Tube UA with Cult Rflx Urine Culture US 1st Trimester US Transvaginal Diagnostic Tests Pending * Urine Culture 08/27/23 [facility]07-29-2023 Hospital Discharge instructions Patient Education 01/04/2023 00:13:01 Pharyngitis, Jpmg-cv-Ldpx Pharyngitis Pharyngitis is a sore throat (pharynx). [...] Follow these instructions at home: Medicines Take cttk-gtg-nkjubuy and prescription medicines only as told by [...] and water are not available, use hand planning analyst. Do not touch your eyes, nose, or [...] provider. Document Revised: 08/22/2021 Document Reviewed: 08/22/2021 [employer] Patient Education 2022 [employer]. Follow Up Care 01/03/2023 22:32:55 With:Thony Carl Address: [address] [place] [address] [place] [address] [facility] (1) When:01/06/2023 Comments:Follow-up with your primary care provider in 3 to 5 days. If symptoms worsen, do not improve, or new symptoms arise please report back to emergency department for further evaluation. [facility]07-28-2023 Evaluation + Plan noteExtracted from: Title:ED Note [...] q12hr, # 20 cap(s), Refills(s) 0, [facility], cm, 01/03/23 22:44:00 EDT, Height/Length Dosing, 75.3, kg, 01/03/23 22:44:00 EDT, Weight Dosing ondansetron, 4 mg = 1 tab(s), Oral, q8hr, PRN Nausea/Vomiting, # 12 tab(s), Refills(s) 0, [facility], cm, 01/03/23 22:44:00 EDT, Height/Length Dosing, 75.3, kg, 01/03/23 22:44:00 EDT, Weight Dosing ondansetron, 12 mg = 3 tab(s), Tab-Dis, Oral, Once, Stop date 01/03/23 23:45:00 EDT, STAT, Start date 01/03/23 23:45:00 EDT, 01/03/23 23:45:00 EDT Automated Diff Basic Metabolic Panel Beta hCG Quantitative CBC w/ Auto Diff eGFR Hepatic Function Panel Lipase Level [facility]04-19-2023 Evaluation note* Encounter Date Diagnosis Assessment Notes [...] of symptoms occur by end of treatment. [employer] Other 03-31-2023 Hospital Discharge instructions Patient Education [...] Follow these instructions at home: Medicines Take tjls-iuv-iadfgxg and prescription medicines only as told by [...] important. Where to find more information [employer] [employer]: www.acog.org [place] [...] 09/17/2019 Document Reviewed: 07/01/2017 Elsevier Patient Education 2019 [employer] Follow Up Care 09/06/2022 10:42:16 With:Juvenal THORPE Address: [address] , [place] [address]- Business (1) When:09/09/2022 13:46:05 [facility]03-09-2023 Hospital Discharge instructions Patient Education 08/14/2022 22:12:46 Abdominal Pain During , Dwyb-od-Jkgq Abdominal Pain During Belly (abdominal) pain is [...] keep your pee (urine) pale yellow. Take tkcl-abw-ocviajz and prescription medicines only as told by [...] Document Reviewed: 08/28/2017 Elsevier Patient Education 2020 [employer] 08/14/2022 22:12:46 Abdominal Pain, Adult, Qofg-qa-Ghks Abdominal Pain, Adult Many things can cause belly (abdominal) pain. Most times, belly pain is not dangerous. Many cases of belly pain can be watched and treated at home. Sometimes, though, belly pain is serious. Your doctor will try to find the cause of your belly pain. Follow these instructions at home: Medicines Take iioe-vae-vhlapud and prescription medicines only as told by [...] your belly pain for any changes. Take wdhl-zsl-joibzwy and prescription medicines only as told by [...] 11/11/2008 Document Revised: 10/04/2019 Document Reviewed: 10/04/2019 Elsevier Patient Education 2020 [employer]. Follow Up Care 08/14/2022 18:41:38 With:Juvenal THORPE Address: [address] , [place] [address]- Business (1) When:08/17/2022 Comments:Follow-up with Dr. Thorpe for further evaluation of your . With:Juventino Carbajal Address: [address] [place] [address]- When:08/17/2022 Comments:Follow-up with your primary care provider in 3 to 5 days. If symptoms worsen, do not improve, or new symptoms arise please report back to emergency department for further evaluation. [facility]01-16-2023 Evaluation note* Encounter Date Diagnosis Assessment Notes [...] return precautions. Jun, Cough (ICD-10 - R05.9) [facility] Other 06-07-2022 Evaluation note* Encounter Date Diagnosis [...] Pt understood and agreed to tx plan. [facility] Other 05-31-2022 Evaluation note* Encounter Date Diagnosis Assessment Notes [...] condition October, Sore throat (ICD-10 - J02.9) [employer] [employer] Other Evaluation + Plan note No data available for this section [facility] note[facility] assessment information available [facility] Work Phone: Evaluation noteNo InformationNortWell[facility] [place] Other History general Narrative - Reported* Type Description Date Medical History fx lt elbow at age 7 Surgical History surgical repair of left elbow f racture at age 7 Hospitalization History see surgical hx [place] [employer] Other Progress note No data available for this section [facility] Summary Purpose Family History No Family History [...] VISIT (unrecogniz ed section and content) BA, GUADALUPE, CONGESTION, SORE THR OATPRODUCTIVE COUGHbody achesSORE THROAT, COUGHre-establish INFORMATION SOURCE (unrecogn ized section and content) DATE CREATED AUTHOR 01/05/2022 [facility] DATE CREATED AUTHOR AUTHOR'S ORGANIZ ATION 07/15/2022 [facility] DATE CREATED AUTHOR AUTHOR'S ORGANIZ ATION 10/10/2022 [facility] DATE CREATED AUTHOR AUTHOR'S ORGANIZ ATION 12/26/2023 [facility] DATE CREATED AUTHOR AUTHOR'S ORGANIZ ATION 01/27/2024 [facility] DATE CREATED AUTHOR AUTHOR'S ORGANIZ ATION 02/05/2024 [facility] DATE CREATED AUTHOR AUTHOR'S ORGANIZ ATION 02/06/2024 [facility] Care Teams (unrecognized sec tion and content) Personnel Name: SELAM HUNTER CNP Address: Address: [address] [place] [address] Team Status: Active Member Role Status Dates [...] BE BASED ON THE PRIMARY CLINICAL RECORDS. [facility] [employer] [facility]. provides no warranty or guarantee of the accuracy or completeness of information in this document.
[2024-02-07 09:59] VITALS: BP 105/62; PULSE 86; TEMP 36.4
== END 2024-02-07 10:25 | disposition home or self-care (01) ==
LOC: FBCO 09:21 → FBC 09:48
PROVIDERS: Visit Provider Obstetrics & Gynecology
DX: O43.893 Other placental disorders, third trimester (principal); Z3A.30 30 weeks gestation of pregnancy
CPT/HCPCS: 59025

== ENCOUNTER 2024-02-10 07:11 | Outpatient (OUT) | payer OTHER, SELFPAY ==
--- OUTSIDE RECORDS SUMMARY | 2024-02-10 07:14 | XMS_ITS | CCD ---
Author Organization [facility] Care Team Providers Care Taffy Candy Maker Name Role Phone Kendra Witt Unavailable Michael [...] Admitting Unavailable KARASIK, DR YANEZ Consulting Unavailable [facility] Primary Care Unavailable KARASIK, DR YANEZ Attending Unavailable KARASIK, DR YANEZ Admitting Unavailable ZIEBER, DR MARS Mccarthy Consulting Unavailable [place], DR SOFIA Hull Consulting Unavailable REQUEST, NONE [...] Provider Unava MD Jose Moody Emergency Provider [phone] Jose Silverman Attending Unavailable Jose Silverman Admitting [...] Medication Allergies] Propensity to adverse reactions (disorder) [facility] Repository Medications Current Medications Medication Drug [...] day(s), # 28 cap(s), Refills(s) 0, Pharmacy: [facility], 170, cm, 08/27/23 9:49:00 EDT, Height/Length Dosing, 78.7, kg, 08/27/23 9:49:00 EDT, Weight Dosing Start Date: 08/27/23 Stop Date: 09/03/23 Status: Ordered Start: 01-03-20[address] [facility] every twelve hours Keflex 500 mg Cap 500 mg = 1 cap(s), Oral, q12hr, # 20 cap(s), Refills(s) 0, Pharmacy: [facility], 170, cm, 01/03/23 22:44:00 EDT, Height/Length Dosing, 75.3, kg, 01/03/23 22:44:00 EDT, Weight Dosing Start Date: 01/03/23 Status: Ordered Citalopram (2 sources) Serotonin Reuptake Inhibitor Citalopram Hydrobromide Active dexamethasone 1 mg/ml / neomycin 3.5 mg/ml / polymyxin b 59910 unt/ml ophthalmic suspension (2 sources) Aminoglycoside Antibacterial, Polymyxin-class Antibacterial, Corticosteroid Start: 09-26-19 take 1 drop(s) into the eye(s) four times daily Maxitrol 3.5-51848-2.1 1 drop into affected eye Ophthalmic Four [...] 3 hrs for 2 days Jun, Active [place]pton (No Known Home Meds) (1 source) Start: 06-26-2021 [place] (No Known Home Meds) Active June 26, [...] Nausea/Vomiting, # 12 tab(s), Refills(s) 0, Pharmacy: [facility], 170, cm, 01/03/23 22:44:00 EDT, Height/Length Dosing, 75.3, kg, 01/03/23 22:44:00 EDT, Weight Dosing Start Date: 01/03/23 Status: Ordered Start: 06-09-2019 take 1 tablet by faby th three times daily Zofran ODT 4 mg Tab-Dis 4 mg = 1 tab(s), Oral, TID, # 15 tab(s), Refills(s) 0, Pharmacy: [facility] Start Date: 06/09/19 Status: [...] take 450 mg by mouth twice daily Portis Carbonate Discontinued 450 MG PO Twice daily [...] Grp A Strp Intrl Ctrl Pass Normal [facility] Comment on above: Order Comment: Order Added on by Discern Rule. Performed By: #### 1 [id number] #### [facility] [address] [place] [address] S. pyogenes DNA ALFREDO+probe Ql (Throat) Negative Normal [facility] Comment on above: Order Comment: Order Added on by Discern Rule. Result Comment: Test ing performed using DNA amplification. Performed By: #### 1 [id number] #### [facility] [address] [place] [address] ED Clinical Summaryon 2023 ED Clinical Summary ED Clinical Summary [address] [address] ED Clinical Summary Person Information Name: KAILYN ACKERMAN [facility] Age: 23 Years : 2000 Sex: Female Language: Malagasy PCP: SELAM HUNTER CNP Marital Status: Single Phone: [phone] MRN: [id number] Visit Id: Visit Reason: Headache; [...] 02/03/2024 11:17:23 02/03/2024 11:17:23 02/03/2024 11:17:23 ADDRESS: [address] [place] [phone] PHYS DOC NOTES: MEDICAL INFORMATION: Prescriptions Given: [...] Follow up: With: Address: When: Juvenal THORPE [facility], [address] [place] [address] [place] [address] Business (1) In 3 days 02/06/2024 With: Address: When: [place] [address] Business (1) In 3 days 02/06/2024 DIAGNOSIS: Sore throat; Viral URI Normal [facility] ED Note-Physicianon 02-03-20 ED Note-Physician ED [...] URI and will continue to follow-up with [facility] for further evaluation and management. We discussed [...] days 02/06/2024 (more content not included)... Normal [facility] Comment on above: Result Comment: Elec tronically Signed By: Duc Swanson PA-C\.br\Date and Time Signed: 02/03/24 13:23 EDT\.br\Electronically Co-Signed By: Siva Schulte DO\.br\Date and Time Co-Signed: 02/03/24 14:44 EDT ED Patient Summaryon 024 ED Patient Summary ED Patient Summary [place] [address] Patient Discharge Instructions Person Information Name: KAILYN ACKERMAN Age: 23 Years Arrival Date: 02/03/2024 09:21:41 Discharge Diagnosis: Sore throat; Viral URI Primary Care Physician: SELAM HUNTER CNP Provider Information Primary Provider: Siva Schulte DO Advanced Operations Logistics Analyst:Duc Swanson PA-C The exam and treatment you received in the Emergency Department were for an urgent problem and are not intended as complete care. It is important that you follow up with a doctor, nurse practitioner, or physician?s technical administrative assistant for ongoing care. If your symptoms [...] Follow-up Instructions: With: Address: When: Juvenal THORPE [facility], [address] [place] [address] [place] [address] Business (1) In 3 days 02/06/2024 With: Address: When: SELAM HUNTER [address] [place], [place] [address] [address] Business (1) In 3 days 02/06/2024 In the event that this physician does not participate in your insurance network, please consult with your insurance company to find a nearby participating provider. Patient Education Materials: Upper Respiratory Infection, Adult A MESSAGE TO ALL PATIENTS REGARDING OPIOIDS PRESCRIPTION OPIOIDS: WHAT YOU NEED TO KNOW Prescription opioids can be used to help relieve twyqtwzj-ht-ufkqea pain and are often prescribed following a [...] of op (more content not included)... Normal [facility] MICRO OTHER TESTSOrdered By: Nita Delgadillo on 02-03-2024 S. pyogenes Ag IA.rapid Ql (Throat) Negative (02/03/24 11:07 AM) Normal Negative [facility] Sero MICRO OTHER TESTSOrdered By: Asuncion Goncalves on 02-03-2024 Rapid COV Int NEG Ctl Pass (02/03/24 9:30 AM) Normal [facility] Sero Rapid COV Int POS Ctl Pass (02/03/24 9:30 AM) Normal [facility] SARS-CoV+SARS-CoV-2 (COVID-19) Ag IA.rapid Ql (Resp) Not Detected 1 (02/03/24 9:30 AM) Normal Not Detected [facility] Comment on above: Interpretive Data: Gato multani BECC Veritor System for Rapid Detection of SARS-CoV-2 [...] COV Int NEG Ctl Pass Normal [facility] Comment on above: Performed By: #### 2 [id number] #### [facility] [address] [place] [address] Rapid COV Int POS Ctl Pass Normal [facility] Comment on above: Performed By: #### 2 [id number] #### [facility] [address] [place] [address] SARS-CoV+SARS-CoV-2 (COVID-19) Ag IA.rapid Ql (Resp) Not detected Normal Not Detected [facility] Comment on above: Result Comment: The BECC Veritor? System for Rapid Detection of SARS-CoV-2 [...] other viruses or pathogens; and, in the [facility], this test is only authorized for the duration of the declaration that circumstances exist justifying the authorization of emergency use of in vitro diagnostics for detection and/or diagnosis of the virus that causes COVID-19 under Section 564(b)(1) of the Act, 21 U.S.C. ? 360bbb-3(b)(1), unless the authorization is terminated or revoked sooner. Performed By: #### 2 [id number] #### [facility] [address] [place] [address] Rapid Strep w/rfxon 02-03-20 24 S. pyogenes Ag IA.rapid Ql (Throat) Negative Normal Negative [facility] Comment on above: Performed By: #### 2 [id number] #### [facility] [address] [place] [address] ED Note-Physicianon 09-26-19 24 ED Note-Physician Basic [...] than 90,000. Ultrasound was obtained discussed with environmental science technician. Intrauterine consistent with stated gestational age. Stable heart rate. Patient continues to demonstrate subchorionic hematoma. Also left-sided ovarian cyst similar to previous. Results were discussed with the patient. She is discharged home to continue pelvic rest and follow-up with [facility]. Patient was encouraged to return to the [...] Juvenal THORPE In 3 days 09/26/[address] , [place] [address]- Business (1) Additional Instructions: Patient Education Subchorionic [...] made to ensure accuracy, however, inadvertently computerized woodworking machinist mistakes may be present. Appropriate healthcare PPE [...] Yes., 04/10/2019 Lab Results Beta hCG Qnt: 89642 mIU/mL High (09/23/23 09:28:00) Diagnostic Results No qualifying data available. Normal [facility] Comment on above: Result Comment: Elec tronically Signed By: Mandie CHUNG, Venkat\.br\Date and Time Signed: 09/23/23 11:45 EDT\.br\Electronically Co-Signed By: Wil Chandra DO\.br\Date and Time Co-Signed: 09/26/23 07:37 [facility]T [facility]20[place] [address] m[IU]/mL High 1-3 [facility] Comment on above: Result Comment: 'F N ON < 1 - 3' ' 0.2 - 1 WEEK = 5 TO 50' ' 1 - 2 WEEKS = 50 - 500' ' 2 - 3 WEEKS = 100 - 5000' ' 3 - 4 WEEKS = 500 - 24972' ' 4 - 5 WEEKS = 1000 - 05159' ' 5 - 6 WEEKS = 64432 - 574326' ' 6 - 8 WEEKS = 34405 - 176186' ' 8 - 12 WEEKS = 91914 - 953895' Performed By: #### 2 [id number] ####[place] [address] [place] [address] CHEMISTRYOrdered By: SYSTEM SYSTEM on 09-23-2023 [place] [address] m[IU]/mL High 1 - 3 mIU/mL [facility] Comment on above: Result Comment: 'F N ON < 1 - 3' ' 0.2 - 1 WEEK = 5 TO 50' ' 1 - 2 WEEKS = 50 - 500' ' 2 - 3 WEEKS = 100 - 5000' ' 3 - 4 WEEKS = 500 - 73275' ' 4 - 5 WEEKS = 1000 - 16258' ' 5 - 6 WEEKS = 70136 - 031349' ' 6 - 8 WEEKS = 28298 - 839741' ' 8 - 12 WEEKS = 69507 - 271422' Consent for Treatmenton 09-07 Consent for Treatment [id number]#1.00TIFF Normal [facility] Discharge Instructionson Discharge Instructions [id number]#1.00TIFF Normal [facility] ED Clinical Summaryon 2023 ED Clinical Summary [address] [address] ED Clinical Summary Person Information Name: KAILYN ACKERMAN [place] Age: 23 Years : 2000 Sex: Female Language: Malagasy PCP: NONE, XXXX Marital Status: Single Phone: [phone] MRN: Visit Id: Visit Reason: Back pain; [...] 09/23/2023 11:52:16 09/23/2023 11:52:16 09/23/2023 11:52:16 ADDRESS: [address] [place] [id number] PHYS DOC NOTES: MEDICAL INFORMATION: Prescriptions Given: [...] Follow up: With: Address: When: Juvenal MIRI [facility], [address] [place] [address] [place] [address] Business (1) In 3 days 09/26/2023 DIAGNOSIS: Other antepartum hemorrhage, unspecified trimester; Subchorionic bleed; Vaginal bleeding in Normal [facility] ED Patient Education Noteon 09-23-2023 ED [...] provider. Document Revised: 02/19/2021 Document Reviewed: 02/19/2021 Else[employer] Patient Education ? 2022 [employer] Normal [facility] ED Patient Summaryon 024 ED Patient Summary [address] [address] Patient Discharge Instructions Person Information Name: TYRON KAILYN Gordon Age: 23 Years Arrival Date: 09/23/2023 09:10:07 Discharge Diagnosis: Other antepartum hemorrhage, unspecified trimester; Subchorionic bleed; Vaginal bleeding in Primary Care Physician: NONE, XXXX Provider Information Primary Provider: Wil Chandra DO Advanced Operations Logistics Analyst:Venkat Leal PA-C The exam and treatment you received in the Emergency Department were for an urgent problem and are not intended as complete care. It is important that you follow up with a doctor, nurse practitioner, or physician?s technical administrative assistant for ongoing care. If your symptoms [...] Follow-up Instructions: With: Address: When: Juvenal THORPE [facility], [address] [place] [address] , [place] [address] Business (1) In 3 days 09/26/2023 In the event that this physician does not participate in your insurance network, please consult with your insurance company to find a nearby participating provider. Patient Education Materials: Subchorionic Hematoma A MESSAGE TO ALL PATIENTS REGARDING OPIOIDS PRESCRIPTION OPIOIDS: WHAT YOU NEED TO KNOW Prescription opioids can be used to help relieve ahmepcdc-td-fegoue pain and are often prescribed following a [...] health care p (more content not included)... [facility] Prescriptions/Work Noteson 0 09-23-2023 Prescriptions/Work Notes [id number]#1.00TIFF [facility] US 1st Trimesteron 09-23-2023 US 1st [...] least 66% of the gestational sac circumference. Suarez Rump Length: 3.2 cm, which corresponds Composite [...] Size = Dates Uterus Position Anteverted Normal [facility] C Urineon 08-29-2023 Bacteria identified Cx [...] Locations R1: This test was performed at: [facility], [address] [place] [address], [address] , , Normal [facility] Comment on above: Performed By: #### 4 [id number] ####[facility] [address] [place] [address] ABO/Rhon 08-27-2023 ABO/Rh Positive Invalid Interpretation Code [facility] Comment on above: Performed By: #### 2 [id number] ####[facility] [address] [place] [address] BLOOD BANKOrdered By: Liza Xavier on 08-27-2023 ABO/Rh Interp Positive Invalid Interpretation Code [facility] BB Subsection BMPon 08-27-2023 Anion gap [Moles/Vol] 11 mmol/L Normal 6-16 [facility] Comment on above: Performed By: #### 1 [id number], [id number], [id number] ####[facility] [address] [place] [address] Calcium [Mass/Vol] 9.3 mg/dL Normal 8.9-11.1 [facility] Comment on above: Performed By: #### 1 [id number], 9950773, 2217461 ####[facility] [address] [place] [address] Chloride [Moles/Vol] 104 mmol/L Normal 101-111 [facility] Comment on above: Performed By: #### 1 [id number], 0083195, 2595826 ####[facility] [address] [place] [place] [address] CO2 [Moles/Vol] 24 mmol/L Normal 21-31 [facility] Comment on above: Performed By: #### 1 0787323, 7944722, 3816379 ####[facility] [address] [place] [address] Creatinine [Mass/Vol] 0.6 mg/dL Normal 0.5-1.3 [facility] Comment on above: Performed By: #### 1 6853847, 4524391, 1179107 ####[facility] [address] [place] [address] Glucose [Mass/Vol] 87 mg/dL Normal 55-199 [facility] Comment on above: Performed By: #### 1 1629172, 3215750, 3860594 ####[facility] [address] [place] [address] Potassium [Moles/Vol] 3.7 mmol/L Normal 3.5-5.3 [facility] Comment on above: Performed By: #### 1 9842307, 4197032, 4082125 ####[facility] [address] [place] [place] [address] Sodium [Moles/Vol] 135 mmol/L Normal 135-145 [facility] Comment on above: Performed By: #### 1 8053341, 9287258, 9860113 ####[facility] [address] [place] [address] Urea nitrogen [Mass/Vol] 8 mg/dL Normal 5-21 [facility] Comment on above: Performed By: #### 1 8362888, 5338926, 0151979 ####[address] [address] Urea nitrogen/Creatinine [Mass ratio] 13 No Units Normal 10-20 [facility] Comment on above: Performed By: #### 1 6178033, 0583920, 9891930 ####[address] [address] BhCG Quanton 08-27-2023 [place] [address] m[IU]/mL High 1-3 [facility] Comment on above: Result Comment: 'F N ON < 1 - 3' ' 0.2 - 1 WEEK = 5 TO 50' ' 1 - 2 WEEKS = 50 - 500' ' 2 - 3 WEEKS = 100 - 5000' ' 3 - 4 WEEKS = 500 - 52548' ' 4 - 5 WEEKS = 1000 - 61138' ' 5 - 6 WEEKS = 68453 - 941458' ' 6 - 8 WEEKS = 01049 - 446492' ' 8 - 12 WEEKS = 64596 - 608748' Performed By: #### 2 [id number] ####[facility] [address] [place] [address] CBC w/ Auto Diffon 4 Basophils/100 WBC (Bld) 0.6 % Normal 0.0-2.0 [facility] Comment on above: Performed By: #### 1 [id number], 5013576, 6173118 ####[facility] [address] [place] [address] Basophils/Leukocytes Auto (Bld) [Pure # fraction] 0.0 E9/L Normal 0.0-0.2 [facility] Comment on above: Performed By: #### 1 6354696, 3098470, 5187359 ####[address] [address] Eosinophils (Bld) [#/Vol] 0.1 E9/L Normal 0.0-0.5 [facility] Comment on above: Performed By: #### 1 6208951, 3061456, 0248906 ####[address] [address] Eosinophils/100 WBC (Bld) 2.0 % Normal 0.0-8.0 [facility] Comment on above: Performed By: #### 1 0468825, 8865096, 7969030 ####[address] [address] Erythrocyte distribution width (RBC) [Ratio] 15.0 % High 10.9-14.2 [facility] Comment on above: Performed By: #### 1 8158317, 7391742, 6265070 ####[address] [address] Hematocrit (Bld) [Volume fraction] 37.4 % Normal 34.0-46.0 [facility] Comment on above: Performed By: #### 1 7600816, 3757147, 1878874 ####[address] [address] Hemoglobin (Bld) [Mass/Vol] 12.7 g/dL Normal 12.0-16.0 [facility] Comment on above: Performed By: #### 1 7868100, 8194100, 1736676 ####[address] [address] Lymphocytes (Bld) [#/Vol] 2.0 E9/L Normal 1.0-4.0 [facility] Comment on above: Performed By: #### 1 3178645, 4874050, 1540304 ####[address] [address] Lymphocytes/100 WBC (Bld) 28.1 % Normal 14.0-50.0 [facility] Comment on above: Performed By: #### 1 8568659, 5275418, 4306278 ####[address] [address] MCH (RBC) [Entitic mass] 28.4 pg Normal 27.0-34.0 [facility] Comment on above: Performed By: #### 1 3560857, 9048259, 1234718 ####[place] [address] MCHC (RBC) [Mass/Vol] 33.8 g/dL Normal 31.4-36.0 [facility] Comment on above: Performed By: #### 1 6111835, 5841211, 4075345 ####[place] [address] MCV (RBC) [Entitic vol] 84.0 fL Normal 80.0-100.0 [facility] Comment on above: Performed By: #### 1 2353228, 4027919, 5602990 ####[address] [address] Monocytes (Bld) [#/Vol] 0.5 E9/L Normal 0.2-1.0 [facility] Comment on above: Performed By: #### 1 2352890, 5772528, 3649329 ####[address] [address] Neutrophils (Bld) [#/Vol] 4.5 E9/L Normal 2.0-7.5 [facility] Comment on above: Performed By: #### 1 2820688, 3661061, 8126820 ####[address] [address] Neutrophils/100 WBC (Bld) 61.9 % Normal 36.0-75.0 [facility] Comment on above: Performed By: #### 1 9784062, 5093255, 8721554 ####[address] [address] Platelet mean volume (Bld) [Entitic vol] 7.9 fL Normal 6.4-10.8 [facility] Comment on above: Performed By: #### 1 4977007, 7294145, 0948886 ####[facility] [address] [place] [address] Platelets (Bld) [#/Vol] 252.0 E9/L Normal 150.0-500.0 [facility] Comment on above: Performed By: #### 1 2912087, 6479625, 3374414 ####[facility] [address] [place] [address] RBC (Bld) [#/Vol] 4.5 E12/L Normal 4.3-5.9 [facility] Comment on above: Performed By: #### 1 3079739, 9406578, 2457722 ####[place] [address] [place] [address] WBC corrected for nucl RBC Auto (Bld) [#/Vol] 7.2 E9/L Normal 4.0-11.0 [facility] Comment on above: Performed By: #### 1 8983611, 0277563, 9653981 ####[facility] [address] [place] [address] CHEMISTRYOrdered By: SYSTEM SYSTEM on 08-27-2023 Anion [...] 199 mg/[place] [address] m[IU]/mL High 1 - 3 mIU/mL [facility] Comment on above: Result Comment: 'F N ON < 1 - 3' ' 0.2 - 1 WEEK = 5 TO 50' ' 1 - 2 WEEKS = 50 - 500' ' 2 - 3 WEEKS = 100 - 5000' ' 3 - 4 WEEKS = 500 - 55299' ' 4 - 5 WEEKS = 1000 - 07861' ' 5 - 6 WEEKS = 83297 - 490308' ' 6 - 8 WEEKS = 01014 - 575466' ' 8 - 12 WEEKS = 35689 - 541186' Potassium [Moles/Vol] 3.7 mmol/L Normal 3.5 - 5.3 mmol/L [facility] Sodium [Moles/Vol] 135 mmol/L Normal 135 - 145 mmol/L [facility] Urea nitrogen [Mass/Vol] 8 mg/dL Normal 5 - 21 mg/d L [facility] Urea nitrogen/Creatinine [Mass ratio] 13 mg/mg Normal 10 - 20 [facility] Consent for Treatmenton 08-08 Consent for Treatment [id number] Normal [facility] Discharge Instructionson Discharge Instructions [id number] Normal [facility] ED Clinical Summaryon 2023 ED Clinical Summary [place] [id number] ED Clinical Summary Person Information Name: KAILYN ACKERMAN [facility] Age: 22 Years : 2000 Sex: Female Language: Malagasy PCP: SELAM HUNTER CNP Marital Status: Single Phone: [phone] MRN: Visit Id: Visit Reason: Vaginal bleeding [...] 08/27/2023 12:34:16 08/27/2023 12:34:16 08/27/2023 12:34:16 ADDRESS: [address] [place] [phone] PHYS DOC NOTES: MEDICAL INFORMATION: Prescriptions Given: Medications to Continue Taking That Have Changed [facility], [address] [place], [place] [id number], [phone] START: cephalexin (Keflex 500 mg Cap) 1 [...] Urinary Tract Infection; Urinary Tract Infection, Adult, Qvrm-vh-Iwst; Subchorionic Hematoma Follow up: With: Address: When: Juvenal THORPE [facility], [address] [facility] [place] [address] Business (1) In 3 days 08/30/2023 With: Address: When: SELAM HUNTER [address] [place] [address] Business (1) In 3 days DIAGNOSIS: Other antepartum hemorrhage, unspecified trimester; Subchorionic bleed; UTI (urinary tract infection) during ; Vaginal bleeding in Normal [facility] ED Note-Physicianon 08-27-19 ED Note-Physician Basic [...] and Complexity of Problems Differential Diagnosis: [] [facility] Data External documents reviewed: [] My [...] day(s), # 28 cap(s), Refills(s) 0, Pharmacy: [facility], 170, cm, 08/27/23 9:49:00 EDT, Height/Length [...] Juvenal THORPE In 3 days 08/30/[address] , [place] [address]- Business (1) Additional Instructions: SELAM HUNTER In 3 days [facility] [place] [address]- Business (1) Additional Instructions: Patient Education and Urinary Tract Infection Urinary Tract Infection, Adult, Lckb-th-Wqrh Subchorionic Hematoma Attestation Patient seen and evaluated by the physician technical administrative assistant. Attending physician was present in the emergency department and s (more content not included)... Normal [facility] Comment on above: Result Comment: Elec [...] provider. Document Revised: 01/09/2022 Document Reviewed: 01/09/2022 [employer] Patient Education ? 2022 [employer] Urinary Tract Infection, Adult A urinary [...] swelling (inflammation) (more content not included)... Normal [facility] ED Patient Summaryon 024 ED Patient Summary [place] [id number] Patient Discharge Instructions Person Information Name: KAILYN ACKERMAN Age: 22 Years Arrival Date: 08/27/2023 09:37:12 Discharge Diagnosis: Other antepartum hemorrhage, unspecified trimester; Subchorionic bleed; UTI (urinary tract infection) during ; Vaginal bleeding in Primary Care Physician: SELAM HUNTER CNP Provider Information Primary Provider: Emily Harper M.D. Advanced Operations Logistics Analyst:None The exam and treatment you received in the Emergency Department were for an urgent problem and are not intended as complete care. It is important that you follow up with a doctor, nurse practitioner, or physician?s technical administrative assistant for ongoing care. If your symptoms become worse or you do not improve as expected and you are unable to reach your usual health care provider, you should return to the Emergency Department. We are available 24 hours a day. KAILYN ACKERMAN has been given the following list of patient education materials, prescriptions and follow-up instructions: Follow-up Instructions: With: Address: When: Juvenal [facility], [address] [place] [address] [place] [phone] Business (1) In 3 days 08/30/2023 With: Address: When: SELAM HUNTER [address] [place] [address] [facility] [place] [phone] Business (1) In 3 days In the event that this physician does not participate in your insurance network, please consult with your insurance company to find a nearby participating provider. Patient Education Materials: and Urinary Tract Infection; Urinary Tract Infection, Adult, Frzs-kk-Xktz; Subchorionic Hematoma A MESSAGE TO ALL PATIENTS REGARDING OPIOIDS PRESCRIPTION OPIOIDS: WHAT YOU NEED TO KNOW Prescription opioids can be used to help relieve xxcseuix-ul-byxofz pain and are often prescribed following a [...] toilet, follo (more content not included)... Normal [facility] HEMATOLOGYOrdered By: SYSTEM SYSTEM on 08-27-2023 [...] Rflxon 08-27-19 Color (U) Light-Yellow Normal Yellow [facility] Comment on above: Result Comment: Micr oscopic readings are only performed on those samples that meet specific criteria set forth by [facility]. Performed By: #### 4 [id number], [id number] ####[place] [address] [place] [address] Glucose (U) [Mass/Vol] Negative Normal Negative [facility] Comment on above: Performed By: #### 4 [id number], [id number] ####[facility] [address] [place] [address] Ketones Ql (U) Negative Normal Negative [facility] Comment on above: Performed By: #### 4 [id number], [id number] ####[facility] [address] [place] [address] UA Blood 3+ Abnormal Negative [facility] Comment on above: Performed By: #### 4 [id number], [id number] ####[facility] [address] [place] [address] UA Bacteria 1+ [id number] Abnormal Trace [facility] Comment on above: Performed By: #### 4 [id number], [id number] ####[facility] [address] [place] [address] UA Clarity Turbid Abnormal Clear [facility] Comment on above: Performed By: #### 4 [id number], [id number] ####[facility] [address] [place] [address] UA Hyal Cast 0-3 Normal 0-3 [facility] Comment on above: Performed By: #### 4 [id number], [id number] ####[facility] [address] [place] [address] UA Leuk Est 250 Stefania/uL Abnormal Negative [facility] Comment on above: Performed By: #### 4 [id number], [id number] ####[facility] [address] [place] [address] UA Mucous Trace Normal Negative [facility] Comment on above: Performed By: #### 4 [id number], [id number] ####[facility] [address] [place] [address] UA Nitrite Negative Normal Negative [facility] Comment on above: Performed By: #### 4 [id number], [id number] ####[facility] [address] [place] [address], [place] [address] UA pH 5.5 Invalid Interpretation Code 5.0-9.0 [facility] Comment on above: Performed By: #### 4 [id number], [id number] ####[facility] [address] [place] [address] UA Protein 1+ mg/dL Abnormal Negative [facility] Comment on above: Performed By: #### 4 [id number], [id number] ####[facility] [address] [place] [address] UA RBC 4-20 Abnormal 0-3 [facility] Comment on above: Performed By: #### 4 [id number], [id number] ####[facility] [address] [place] [address] UA Spec Grav 1.018 Invalid Interpretation Code 1.005-1.030 [facility] Comment on above: Performed By: #### 4 [id number], [id number] ####[facility] [address] [place] [address] UA Squam Epithelial 3-4 Abnormal 0-2 [facility] Comment on above: Performed By: #### 4 [id number], [id number] ####[facility] [address] [place] [address] UA Urobilinogen Negative Normal Negative [facility] Comment on above: Performed By: #### 4 [id number], [id number] ####[facility] [address] [place] [address] UA WBC 6-15 Abnormal 0-5 [facility] Comment on above: Performed By: #### 4 [id number], [id number] ####[facility] [address] [place] [address] Urobilinogen (U) [Mass/Vol] Negative Normal Negative [facility] Comment on above: Performed By: #### 4 [id number], [id number] ####[facility] [address] [place] [address] UA Spec Desc Clean Catch Normal [facility] Comment on above: Performed By: #### 4 [id number], [id number] ####[facility] [address] [place] [address] URINALYSISOrdered By: SYSTEM SYSTEM on 08-27-2023 Color (U) Light-Yellow 1 (08/27/23 9:55 AM) Normal Yellow [facility] UA Auto SS Comment on above: Interpretive Data: M icroscopic readings are only performed on those samples that meet specific criteria set forth by [facility]. Glucose (U) [Mass/Vol] Negative Normal [...] Reason for Exam: Other (please specify) Report [facility] [phone] IMPRESSION: Single live intrauterine with estimated sonographic [...] heart rate is measured at 120 bpm. Suarez-rump length 4.77 mm. Estimated sonographic gestational age [...] Transvaginal Ultrasound Performed FHR (bpm) 120 Normal [facility] US Transvaginalon 08-27-2023 US Transvaginal Exam Date/Time: 08/27/2023 11:55 EDT Reason for Exam: Other (please specify) Report [facility] [phone] Please see ultrasound pelvis, for report of transvaginal examination. Ordering Provider: Hudson Riley FINAL REPORT Dictated: 08/27/2023 12:33 pm Zach Deng MD Signed (Electronic Signature): 08/27/2023 12:33 pm Signed by: Zach Deng MD Transcribed by: KIRK Technologist: SHELLEY Normal [facility] eGFRon 08-27-2023 eGFR 131 mL/min/1.73 m2 Normal >=59 [facility] Comment on above: Order Comment: Order added by Discern Expert. Performed By: #### 1 [id number], [id number], [id number] ####[facility] [address] [place] [address] [facility] Quant[facility] 08-19-2023 HCG.beta subunit Qn 4261 m[IU]/mL High 1-3 [facility] Comment on above: Result Comment: 'F N ON < 1 - 3' ' 0.2 - 1 WEEK = 5 TO 50' ' 1 - 2 WEEKS = 50 - 500' ' 2 - 3 WEEKS = 100 - 5000' ' 3 - 4 WEEKS = 500 - 59976' ' 4 - 5 WEEKS = 1000 - 99249' ' 5 - 6 WEEKS = 28526 - 165159' ' 6 - 8 WEEKS = 17954 - 674059' ' 8 - 12 WEEKS = 49896 - 433583' Performed By: #### 2 [id number] ####[facility] [address] [place] [address] Physician Orderon 08-19-2023 Physician Order [id number] Normal [facility] CHEMISTRYOrdered By: Juancho benitez on 01-03-2023 [...] ratio] 12 mg/mg Normal 10 - 20 [facility] Remisol CHEMISTRYOrdered By: SYSTEM SYSTEM on 01-03-2023 GFR/1.73 sq M.predicted among non-blacks MDRD (S/P/Bld) [Vol rate/Area] 108 mL/min/1.73 m2 Normal >=59mL/min/1 .73 m2 [facility] Chem S HCG.beta subunit Qn 1572 m[IU]/mL [...] 16.9 E9/L High 4.0 - 11.0 E9/L [facility] HemeAutoSS Laboratory - Microbiology an d Antimicrobial susceptibilityOrdered By: Asuncion Goncalves on 01-03-2023 Bacteria identified Cx Nom (U) No growth to date Continuing incubation [facility] MICRO OTHER TESTSOrdered By: uJancho Fitch on 01-03-2023 S. pyogenes Ag IA.rapid [...] Interpretation Code Negative [facility] UA Auto SS Portis.plasma/Portis.R BC (Bld) [Mass ratio] 0-3 /HPF Normal 0-3/HPF [facility] UA Au to SS Nitrite Ql (U) Negative (01/03/23 10:52 PM) Normal Negative [facility] UA Auto SS pH (U) 6.5 *NA* (01/03/23 10:52 PM) Invalid Interpretation Code 5.0 - 9.0 [facility] UA Auto SS Protein (U) [Mass/Vol] Negative (01/03/23 10:52 PM) Normal Negative [facility] UA Auto SS Specific gravity (U) [Rel density] 1.020 *NA* (01/03/23 10:52 PM) Invalid Interpretation Code 1.005 - 1.030 [facility] UA Auto SS UA Spec Desc Clean Catch (01/03/23 10:52 PM) Normal [facility] UA Auto SS Urobilinogen Qn (U) 1.8042567 {Georgina'U}/dL Normal 0.0 - 1.0 EU/dL FT UA Auto SS WBC Auto Ql (U) 1+ *ABN* (01/03/23 10:52 PM) Invalid Interpretation Code Negative [facility] UA Auto SS WBC LM.HPF (Urine sed) [#/Area] 6-15 /HPF Invalid Interpretation Code 0-5/HPF [facility] UA Auto SS Alanine aminotransferase [En zymatic activity/volume] in Serum or PlasmaOrdered By: Jose Silverman on 10-02-2022 ALT [Catalytic activity/Vol] 13 U/L Normal 7-52 [facility] Comment on above: Performed By: #### C BC, CMP, ETOH #### [facility] [address] [place] [address] [place] Albumin [Mass/volume] in Ser um or Plasma by Bromocresol green (BCG) dye binding methoOrdered By: Jose Silverman on 10-02-2022 Albumin BCG dye [Mass/Vol] 5.0 g/dL 3.5-5.7 [facility] Alkaline phosphatase [Enzyma tic activity/volume] in Serum or PlasmaOrdered By: Jose Silverman on 10-02-2022 ALP [Catalytic activity/Vol] 69 U/L Normal 34-104 [facility] Comment on above: Performed By: #### C BC, CMP, ETOH #### [facility] [address] [place] [address] [place] Amphetamine Screen Ql (U)Ord ered By: Jose Silverman on 10-02-2022 Amphetamines Ql (U) Negative Negative [facility] Aspartate aminotransferase [ Enzymatic activity/volume] in Serum or PlasmaOrdered By: Jose Silverman on 10-02-2022 AST [Catalytic activity/Vol] 21 U/L Normal 13-39 [facility] Comment on above: Performed By: #### C BC, CMP, ETOH #### [address] Automated basophil %Ordered By: Jose Silverman on 10-02-2022 Basophils/100 WBC (Bld) 0.5 % Normal . [facility] Comment on above: Performed By: #### C BC, CMP, ETOH #### [address] Automated basophil countOrde red By: Jose Silverman on 10-02-2022 Basophils (Bld) [#/Vol] 0.1 10*3/uL Normal 0.0-0.2 [facility] Comment on above: Result Comment: PERF ORMED BY: [place] [address] PATHOLOGIST SITE LEADER ASHELY CAREY M.D. Performed By: #### C BC, CMP, ETOH #### [address] Automated blood monocyte cou ntOrdered By: Jose Silverman on 10-02-2022 Monocytes (Bld) [#/Vol] 0.7 10*3/uL Normal 0.0-0.8 [facility] Comment on above: Performed By: #### C BC, CMP, ETOH #### [address] Automated eosinophil %Ordere d By: Jose Silverman on 10-02-2022 Eosinophils/100 WBC (Bld) 2.0 % Normal . [facility] Comment on above: Performed By: #### C BC, CMP, ETOH #### [address] Automated eosinophil countOr dered By: Jose Silverman on 10-02-2022 Eosinophils (Bld) [#/Vol] 0.3 10*3/uL Normal 0.0-0.45 [facility] Comment on above: Performed By: #### C BC, CMP, ETOH #### [address] Automated erythrocytes count in urine sediment (number/area)Ordered By: Jose Silverman on 10-02-2022 RBC Auto (Urine sed) [#/Area] 0-1 [HPF] 0-4 [facility] Automated leukocytes count i n urine sediment (number/area)Ordered By: Jose Silverman on 10-02-2022 WBC Auto (Urine sed) [#/Area] 10-19 [HPF] 0-4 [facility] Automated monocyte %Ordered By: Jose Silverman on 10-02-2022 Monocytes/100 WBC (Bld) 5.7 % Normal . [facility] Comment on above: Performed By: #### C BC, CMP, ETOH #### [facility] [address] Automated neutrophil %Ordere d By: Jose Silverman on 10-02-2022 Neutrophils/100 WBC (Bld) 68.7 % Normal . [facility] Comment on above: Performed By: #### C BC, CMP, ETOH #### [facility] [address] [place] [address] [place] Barbiturates [Presence] in U rine by Screen methodOrdered By: Jose Silverman on 10-02-2022 Barbiturates Screen Ql (U) Negative Negative [facility] Benzodiazepines Screen Ql (U )Ordered By: Jose Silverman on 10-02-2022 Benzodiazepines Ql (U) Negative Negative [facility] Benzoylecgonine [Presence] i n Urine by Screen methodOrdered By: Jose Silverman on 10-02-2022 Benzoylecgonine Screen Ql (U) Negative Negative [facility] Bilirubin Test strip Ql (U)O rdered By: Jose Silverman on 10-02-2022 Bilirubin Ql (U) Negative Negative [facility] Bilirubin.total [Mass/volume ] in Serum or PlasmaOrdered By: Jose Silverman on 10-02-2022 Bilirubin [Mass/Vol] 0.3 mg/dL Normal 0.3-1.0 [facility] Comment on above: Performed By: #### C BC, CMP, ETOH #### [facility] [address] [place] [address] [place] Calcium [Mass/volume] in Ser um or PlasmaOrdered By: Jose Silverman on 10-02-2022 Calcium [Mass/Vol] 9.6 mg/dL Normal 8.6-10.3 [facility] Comment on above: Performed By: #### C BC, CMP, ETOH #### [facility] [address] Cannabinoids [Presence] in U rine by Screen methodOrdered By: Jose Silverman on 10-02-2022 Cannabinoids Screen Ql (U) Negative Negative [facility] Comment on above: These are unconfirme d results and should not be used for legal purposes. Drug Cut-Off Concentration: AMPH 1000 ng/mL MIAH 200 ng/mL AYAN 200 ng/mL COCM 300 ng/mL OP 300 ng/mL PCP 25 ng/mL THC 20 ng/mL Carbon dioxide, total [Moles /volume] in Serum or PlasmaOrdered By: Jose Silverman on 10-02-2022 CO2 [Moles/Vol] 27.2 mmol/L Normal 21.0-31.0 [facility] Comment on above: Performed By: #### C BC, CMP, ETOH #### [place] [address] [place] Chloride [Moles/volume] in S brian or PlasmaOrdered By: Jose Silverman on 10-02-2022 Chloride [Moles/Vol] 101 mmol/L Normal 98-107 [facility] Comment on above: Performed By: #### C BC, CMP, ETOH #### [address] Color Auto (U)Ordered By: Loli Silverman on 10-02-2022 Color (U) Yellow Yellow [facility] Complete Blood Count Auto Di ffon 10-02-2022 Mean Corpuscular HGB Conc 32.0 g/dL Normal 32.0-35.0 [facility] Comment on above: Performed By: #### C BC, CMP, ETOH #### [place] [address] [place] Monocytes/100 WBC (Bld) 17.72 % Normal 0.00-20.00 [facility] Comment on above: Performed By: #### C BC, CMP, ETOH #### [address] NRBC% 0.0 /100{WBC} Normal 0-0.5 [facility] Comment on above: Performed By: #### C BC, CMP, ETOH #### [address] Comprehensive Metabolic Pane tung 10-02-2022 Albumin [Mass/Vol] 5.0 g/dL Normal 3.5-5.7 [facility] Comment on above: Performed By: #### C BC, CMP, ETOH #### [address] Creatinine Clr Calc Pharmacy 107.48 Normal [facility] Comment on above: Result Comment: PERF ORMED BY: [place] [address] PATHOLOGIST SITE LEADER ASHELY CAREY M.D. Performed By: #### C BC, CMP, ETOH #### [address] GFR/1.73 sq M.predicted MDRD (S/P/Bld) [Vol rate/Area] mL/min/{1.73_m2} Normal [facility] Comment on above: Performed By: #### C BC, CMP, ETOH #### [address] Creatinine [Mass/volume] in Serum or PlasmaOrdered By: Jose Silverman on 10-02-2022 Creatinine [Mass/Vol] 0.89 mg/dL Normal 0.60-1.20 [facility] Comment on above: Performed By: #### C BC, CMP, ETOH #### [address] Dipstick and Microscopicon 0 10-02-2022 Appearance (U) Clear Normal Clear [facility] Comment on above: Order Comment: Name Collection Type:: Clean-Voided Midstream Performed By: #### U RDS, ADDONUAPLUS, CUU, UHCG #### [address] Bacteria,Urine 2+ High None Seen [facility] Comment on above: Order Comment: Name Collection Type:: Clean-Voided Midstream Performed By: #### U RDS, ADDONUAPLUS, CUU, UHCG #### [facility] [address] [place] [address] [place] Bilirubin,Urine Negative Normal Negative [facility] Comment on above: Order Comment: Name Collection Type:: Clean-Voided Midstream Performed By: #### U RDS, ADDONUAPLUS, CUU, UHCG #### [facility] [address] [place] [address] Color (U) Yellow Normal Yellow [facility] Comment on above: Order Comment: Name Collection Type:: Clean-Voided Midstream Performed By: #### U RDS, ADDONUAPLUS, CUU, UHCG #### [facility] [address] [place] [address] Glucose Ql (U) Normal Normal Normal [facility] Comment on above: Order Comment: Name Collection Type:: Clean-Voided Midstream Performed By: #### U RDS, ADDONUAPLUS, CUU, UHCG #### [facility] [address] [place] [address] Hyaline Casts,Urine 0-8 Normal 0-8 [facility] Comment on above: Order Comment: Name Collection Type:: Clean-Voided Midstream Performed By: #### U RDS, ADDONUAPLUS, CUU, UHCG #### [facility] [address] [place] [address] [place] Ketones Ql (U) Negative Normal Negative [facility] Comment on above: Order Comment: Name Collection Type:: Clean-Voided Midstream Performed By: #### U RDS, ADDONUAPLUS, CUU, UHCG #### [facility] [address] [place] [address] Leukocyte esterase Test strip Ql (U) 3+ High Negative [facility] Comment on above: Order Comment: Name Collection Type:: Clean-Voided Midstream Performed By: #### U RDS, ADDONUAPLUS, CUU, UHCG #### [facility] [address] [place] [address] [place] Nitrite,Urine Negative Normal Negative [facility] Comment on above: Order Comment: Name Collection Type:: Clean-Voided Midstream Performed By: #### U RDS, ADDONUAPLUS, CUU, UHCG #### [address] Occult Blood,Urine Negative Normal Negative [facility] Comment on above: Order Comment: Name Collection Type:: Clean-Voided Midstream Performed By: #### U RDS, ADDONUAPLUS, CUU, UHCG #### [address] pH (U) 6.5 [pH] Normal 5.0-9.0 [facility] Comment on above: Order Comment: Name Collection Type:: Clean-Voided Midstream Performed By: #### U RDS, ADDONUAPLUS, CUU, UHCG #### [facility] [address] [place] [address] Protein,Urine Negative Normal Negative [facility] Comment on above: Order Comment: Name Collection Type:: Clean-Voided Midstream Performed By: #### U RDS, ADDONUAPLUS, CUU, UHCG #### [facility] [address] [place] [address] RBC LM.HPF (Urine sed) [#/Area] 0 /[HPF] Normal 0-4 [facility] Comment on above: Order Comment: Name Collection Type:: Clean-Voided Midstream Performed By: #### U RDS, ADDONUAPLUS, CUU, UHCG #### [facility] [address] [place] [address] Specificy Cisne,Urine 1.021 Normal 1.001-1.030 [facility] Comment on above: Order Comment: Name Collection Type:: Clean-Voided Midstream Performed By: #### U RDS, ADDONUAPLUS, CUU, UHCG #### [address] Squamous Epithelial Cell,Urine 10-19 High 0-2 [facility] Comment on above: Order Comment: Name Collection Type:: Clean-Voided Midstream Performed By: #### U RDS, ADDONUAPLUS, CUU, UHCG #### [facility] [address] [place] [address] Urobilinogen,Urine Normal Normal Normal [facility] Comment on above: Order Comment: Name Collection Type:: Clean-Voided Midstream Performed By: #### U RDS, ADDONUAPLUS, CUU, UHCG #### [facility] [address] [place] [address] [place] WBC,Urine 10-19 High 0-4 [facility] Comment on above: Order Comment: Name Collection Type:: Clean-Voided Midstream Performed By: #### U RDS, ADDONUAPLUS, CUU, UHCG #### [address] Drug Screen,Urineon 10-03-19 Amphetamine Screen,Urine Negative Normal Negative [facility] Comment on above: Performed By: #### U RDS, ADDONUAPLUS, CUU, UHCG #### [address] Barbiturate Screen,Urine Negative Normal Negative [facility] Comment on above: Performed By: #### U RDS, ADDONUAPLUS, CUU, UHCG #### [address] Benzodiazepines Screen,Urine Negative Normal Negative [facility] Comment on above: Performed By: #### U RDS, ADDONUAPLUS, CUU, UHCG #### [facility] [address] [place] [address] Cannabinoid Screen,Urine Negative Normal Negative [facility] Comment on above: Result Comment: Thes e are unconfirmed results and should not be used for legal purposes. Drug Cut-Off Concentration: AMPH 1000 ng/mL MIAH 200 ng/mL AYAN 200 ng/mL COCM 300 ng/mL OP 300 ng/mL PCP 25 ng/mL THC 20 ng/mL PERFORMED BY: [place] [address] PATHOLOGIST SITE LEADER ASHELY CAREY M.D. Performed By: #### U RDS, ADDONUAPLUS, CUU, UHCG #### [facility] [address] [place] [address] [place] Cocaine Screen,Urine Negative Normal Negative [facility] Comment on above: Performed By: #### U RDS, ADDONUAPLUS, CUU, UHCG #### [facility] [address] [place] [address] [place] Opiate Screen,Urine Negative Normal Negative [facility] Comment on above: Performed By: #### U RDS, ADDONUAPLUS, CUU, UHCG #### [facility] [address] [place] [address] [place] Phencyclidine Screen,Urine Negative Normal Negative [facility] Comment on above: Performed By: #### U RDS, ADDONUAPLUS, CUU, UHCG #### [facility] [address] Erythrocyte distribution wid th [Ratio] by Automated countOrdered By: Jose Silverman on 10-02-2022 Erythrocyte distribution width (RBC) [Ratio] 15.8 % High 11.9-15.3 [facility] Comment on above: Performed By: #### C BC, CMP, ETOH #### [address] Erythrocytes [#/volume] in B lood by Automated countOrdered By: Jose Silverman on 10-02-2022 RBC (Bld) [#/Vol] 5.31 10*6/uL High 3.60-5.00 [facility] Comment on above: Performed By: #### C BC, CMP, ETOH #### [facility] [address] [place] [address] [place] Ethanol [Mass/volume] in Ser um or PlasmaOrdered By: Jose Silverman on 10-02-2022 Ethanol [Mass/Vol] mg/dL Normal [facility] Comment on above: Performed By: #### C BC, CMP, ETOH #### [facility] [address] Ethanol [Mass/Vol] TNP [facility] Comment on above: Test not performed Ethyl Alcohol Profileon 09-08 Percent Ethanol Not performed Normal [facility] Comment on above: Result Comment: PERF ORMED BY: [place] [address] PATHOLOGIST SITE LEADER ASHELY CAREY M.D. Performed By: #### C BC, CMP, ETOH #### [facility] [address] [place] [address] [place] Glucose [Mass/volume] in Ser um or PlasmaOrdered By: Jose Silverman on 10-02-2022 Glucose [Mass/Vol] 98 mg/dL Normal 70-100 [facility] Comment on above: ADA recommended refe rence rangeRandom Glucose Reference Range is dependent on time and content of last meal. Glucose of more than 200 mg/dL in a nonstressed, ambulatory subject supports the diagnosis of Diabetes Mellitus. Result Comment: [place] om Glucose Reference Range is dependent on time and content of last meal. Glucose of more than 200 mg/dL in a nonstressed, ambulatory subject supports the diagnosis of Diabetes Mellitus. ADA recommended reference range Performed By: #### C BC, CMP, ETOH #### [facility] [address] [id number] [place] HCG ( test) IA.rapi d Ql (U)Ordered By: Jose Silverman on 10-02-2022 HCG ( test) Ql (U) Negative [facility] HCG,Urineon 10-02-2022 Beta HCG ( test) Ql (U) Negative Normal [facility] Comment on above: Order Comment: Name Collection Type:: Clean-Voided Midstream Result Comment: PERF ORMED BY: [facility] [address] [place] [address] PATHOLOGIST SITE LEADER ASHELY CAREY M.D. Performed By: #### U RDS, ADDONUAPLUS, CUU, UHCG #### [facility] [address] [place] [address] [place] Hematocrit [Volume Fraction] of Blood by Automated countOrdered By: Jose Silverman on 10-02-2022 Hematocrit (Bld) [Volume fraction] 41.7 % Normal 34.0-46.4 [facility] Comment on above: Performed By: #### C BC, CMP, ETOH #### [facility] [address] [place] [address] Hemoglobin [Mass/volume] in BloodOrdered By: Jose Silverman on 10-02-2022 Hemoglobin (Bld) [Mass/Vol] 13.3 g/dL Normal 11.8-15.4 [facility] Comment on above: Performed By: #### C BC, CMP, ETOH #### [address] Ketones Auto test strip (U) [Mass/Vol]Ordered By: Jose Silverman on 10-02-2022 Ketones (U) [Mass/Vol] Negative Negative [facility] - UrinalysisOrder ed By: Jose Silverman on 10-02-2022 Hyaline casts LM Ql (Urine sed) 0-8 [LPF] 0-8 [facility] Leukocytes [#/volume] correc ruby for nucleated erythrocytes in Blood by Automated counOrdered By: Jose Silverman on 10-02-2022 WBC corrected for nucl RBC Auto (Bld) [#/Vol] 12.9 10*3/uL 3.8-11.6 [facility] Leukocytes [#/volume] in Blo od by Automated countOrdered By: Jose Silverman on 10-02-2022 WBC (Bld) [#/Vol] 12.9 10*3/uL High 3.8-11.6 [facility] Comment on above: Performed By: #### C BC, CMP, ETOH #### [facility] [address] [place] [address] [place] Lymphocytes [#/volume] in Bl ood by Automated countOrdered By: Jose Silverman on 10-02-2022 Lymphocytes (Bld) [#/Vol] 3.0 10*3/uL Normal 1.00-4.8 [facility] Comment on above: Performed By: #### C BC, CMP, ETOH #### [facility] [address] [place] [address] [place] Lymphocytes/100 leukocytes i n Blood by Automated countOrdered By: Jose Silverman on 10-02-2022 Lymphocytes/100 WBC (Bld) 23.1 % Normal . [facility] Comment on above: Performed By: #### C BC, CMP, ETOH #### [facility] [address] [place] [address] MCH [Entitic mass] by Automa ruby countOrdered By: Jose Silverman on 10-02-2022 MCH (RBC) [Entitic mass] 25.2 pg Normal 24.7-34.3 [facility] Comment on above: Performed By: #### C BC, CMP, ETOH #### [address] MCHC Auto (RBC) [Mass/Vol]Or dered By: Jose Silverman on 10-02-2022 MCHC (RBC) [Mass/Vol] 32.0 g/dL 32.0-35.0 [facility] MCV [Entitic volume] by Auto mated countOrdered By: Jose Silverman on 10-02-2022 MCV (RBC) [Entitic vol] 78.5 fL Low 80-100 [facility] Comment on above: Performed By: #### C BC, CMP, ETOH #### [address] Monocyte distribution width [Entitic volume] in Blood by AutomatedOrdered By: Jose Silverman on 10-02-2022 Monocyte distribution width Auto (Bld) [Entitic vol] 17.72 % 0.00-20.00 [facility] Neutrophils [#/volume] in Bl ood by Automated countOrdered By: Jose Silverman on 10-02-2022 Neutrophils (Bld) [#/Vol] 8.9 10*3/uL High 1.8-7.7 [facility] Comment on above: Performed By: #### C BC, CMP, ETOH #### [facility] [address] [place] [address] Nitrite Test strip Ql (U)Ord ered By: Jose Silverman on 10-02-2022 Nitrite Ql (U) Negative Negative [facility] No Panel InformationOrdered By: Jose Silverman on 10-02-2022 Estimated GFR (CKD-EPI) > 60.0 mL/Min [facility] Creatinine Clearance (Chem 107.48 [facility] Nucleated erythrocytes [Pres ence] in Blood by Automated countOrdered By: Jose Silverman on 10-02-2022 Nucleated RBC Auto Ql (Bld) 0.0 /100{WBC} 0-0.5 [facility] Opiates [Presence] in Urine by Screen methodOrdered By: Jose Silverman on 10-02-2022 Opiates Screen Ql (U) Negative Negative [facility] Phencyclidine Screen Ql (U)O rdered By: Jose Silverman on 10-02-2022 Phencyclidine Ql (U) Negative Negative [facility] Platelet mean volume [Entiti c volume] in Blood by Automated countOrdered By: Jose Silverman on 10-02-2022 Platelet mean volume (Bld) [Entitic vol] 7.7 fL Normal 6.3-10.7 [facility] Comment on above: Performed By: #### C BC, CMP, ETOH #### [facility] [address] [place] [address] [place] Platelets [#/volume] in Bloo d by Automated countOrdered By: Jose Silverman on 10-02-2022 Platelets (Bld) [#/Vol] 342 10*3/uL Normal 150-450 [facility] Comment on above: Performed By: #### C BC, CMP, ETOH #### [facility] [address] [place] [address] [place] Potassium [Moles/volume] in Serum or PlasmaOrdered By: Jose Silverman on 10-02-2022 Potassium [Moles/Vol] 3.8 mmol/L Normal 3.5-5.1 [facility] Comment on above: Performed By: #### C BC, CMP, ETOH #### [facility] [address] [place] [address] [place] Protein Auto test strip (U) [Mass/Vol]Ordered By: Jose Silverman on 10-02-2022 Protein (U) [Mass/Vol] Negative Negative [facility] Protein [Mass/volume] in Ser um or PlasmaOrdered By: Jose Silverman on 10-02-2022 Protein [Mass/Vol] 8.7 g/dL Normal 6.4-8.9 [facility] Comment on above: Performed By: #### C BC, CMP, ETOH #### [address] Serum globulin measurement b y calculation (mass/volume)Ordered By: Jose Silverman on 10-02-2022 Globulin (S) [Mass/Vol] 3.7 g/dL Normal [facility] Comment on above: Performed By: #### C BC, CMP, ETOH #### [address] Serum or plasma albumin/glob ulin mass ratioOrdered By: Jose Silverman on 10-02-2022 Albumin/Globulin [Mass ratio] 1.4 {ratio} Normal [facility] Comment on above: Performed By: #### C BC, CMP, ETOH #### [address] Serum or plasma anion gap de terminationOrdered By: Jose Silverman on 10-02-2022 Anion gap [Moles/Vol] 12.6 mmol/L Normal 6.0-15.0 [facility] Comment on above: Performed By: #### C BC, CMP, ETOH #### [address] Sodium [Moles/volume] in Ser um or PlasmaOrdered By: Jose Sliverman on 10-02-2022 Sodium [Moles/Vol] 137 mmol/L Normal 136-145 [facility] Comment on above: Performed By: #### C BC, CMP, ETOH #### [address] Specific gravity Auto test s trip (U) [Rel density]Ordered By: Jose Silverman on 10-02-2022 Specific gravity (U) [Rel density] 1.021 1.001-1.030 [facility] Squamous epithelial cells de tection in urine sediment by light microscopyOrdered By: Jose Silverman on 10-02-2022 Epithelial cells.squamous LM Ql (Urine sed) 10-19 [HPF] 0-2 [facility] Urea nitrogen [Mass/volume] in Serum or PlasmaOrdered By: Jose Silverman on 10-02-2022 Urea nitrogen [Mass/Vol] 18 mg/dL Normal 7-25 [facility] Comment on above: Performed By: #### C BC, CMP, ETOH #### [facility] [address] [place] [address] [place] Urine Cultureon 10-02-2022 Bacteria identified Cx Nom (U) ORGANISM: Strep agalactiae - (group b) (O:STRAGA) Nichols Count 50,000 PERFORMED BY: [place] [address] PATHOLOGIST SITE LEADER ASHELY CAREY M.D. Normal [facility] Comment on above: Performed By: #### U RDS, ADDONUAPLUS, CUU, UHCG #### [facility] [address] [place] [address] Urine bacteria detection by automated methodOrdered By: Jose Silverman on 10-02-2022 Bacteria Auto Ql (U) 2+ None Seen [facility] Urine clarity by refractomet ry automatedOrdered By: Jose Silverman on 10-02-2022 Clarity Refractometry automated (U) Clear Clear [facility] Urine glucose measurement by automated test strip (mass/volume)Ordered By: Jose Silverman on 10-02-2022 Glucose Auto test strip (U) [Mass/Vol] Normal mg/dL Normal [facility] Urine hemoglobin detection b y automated test stripOrdered By: Jose Silverman on 10-02-2022 Hemoglobin Auto test strip Ql (U) Negative Negative [facility] Urine leukocyte esterase det ection by automated test stripOrdered By: Jose Silverman on 10-02-2022 Leukocyte esterase Auto test strip Ql (U) 3+ Negative [facility] Urobilinogen Auto test strip (U) [Mass/Vol]Ordered By: Jose Silverman on 10-02-2022 Urobilinogen (U) [Mass/Vol] Normal mg/dL Normal [facility] pH Auto test strip (U)Ordere d By: oJse Silverman on 10-02-2022 pH (U) 6.5 [pH] 5.0-9.0 [facility] Quick Strepon 09-25-2022 S. pyogenes Org specific cx Ql (Throat) Negative [employer] Other Cesar Nickerson [employer] Other CHEMISTRYOrdered By: SYSTEM SYSTEM on 09-06-2022 [...] AM) Normal Negative [facility] UA Auto SS Portis.plasma/Portis.R BC (Bld) [Mass ratio] >30 /HPF Invalid [...] Desc Clean Catch (09/06/22 11:19 AM) Normal [facility] UA Auto SS Urobilinogen Qn (U) 0.5048958 {Georgina'U}/dL Normal 0.0 - 1.0 EU/dL [facility] UA Auto SS WBC Auto Ql (U) Negative (09/06/22 11:19 AM) Normal Negative [facility] UA Auto SS WBC LM.HPF (Urine sed) [#/Area] 0-5 /HPF Normal 0-5/HPF FT UA Auto SS BLOOD BANKOrdered By: John Montague on 08-14-2022 ABO/Rh Interp Positive Invalid Interpretation Code [facility] BB Subsection CHEMISTRYOrdered By: SYSTEM SYSTEM on [...] PM) Normal Negative [facility] UA Auto SS Portis.plasma/Portis.R BC (Bld) [Mass ratio] 0-3 /HPF Normal [...] [facility] UA Auto SS Urobilinogen Qn (U) 0.0901852 {Georgina'U}/dL Normal 0.0 - 1.0 EU/dL [facility] UA Auto SS WBC Auto Ql (U) Negative (08/14/22 7:29 PM) Normal Negative [facility] UA Auto SS WBC LM.HPF (Urine sed) [#/Area] 0-5 /HPF Normal 0-5/HPF [facility] UA Auto SS CHLAMYDIA/GONOCOCCUS ALFREDO (SW AB/URINE/PAPon 07-15-2022 Chlamydia trachomatis, ALFREDO Negative Normal [facility] Comment on above: Performed By: #### C T/NGNA #### [facility] [address] [address] [address] Cyril Hendricks Neisseria gonorrhoeae, ALFREDO Negative Normal Negative [facility] Comment on above: Performed By: #### C T/NGNA #### [facility] [address] [address] [address] Cyril Hendricks VAGINITIS/VAGINOSIS DNA PROB Maurice 07-13-2022 Krista species Negative Normal Negative [facility] Comment on above: Performed By: #### U MICRO, UACSIND #### [facility] [address] [address] [address] Cyril Hendricks Gardnerella vaginalis Positive Abnormal Negative [facility] Comment on above: Performed By: #### U MICRO, UACSIND #### [facility] [address] [address] [address] Cyril Hendricks Trichomonas vaginalis Negative Normal Negative [facility] Comment on above: Performed By: #### U MICRO, UACSIND #### [facility] [address] [address] [address] Cyril Hendricks COVID/FLU RT-PCRon SARS-CoV-2 (COVID-19) RNA ALFREDO+probe Ql (Unsp spec) Negative [employer] Other COVID/FLU RT-PCR Negative [employer] Other Quick Strepon 06-24-2022 S. pyogenes Org specific cx Ql (Throat) Negative [employer] Other Quick Strep [employer] Other CBC AUTO DIFFon 08-02-2022 BASO # 0.1 103/ul Normal 0.0-0.1 [facility] Comment on above: Performed By: #### C BC #### [facility] [address] [address] [address] Cyril Hendricks Basophils/100 WBC (Bld) 0.4 % Normal 0.2-2.0 [facility] Comment on above: Performed By: #### C BC #### [facility] [address] [address] [address] Cyril Hendricks EO # 0.1 103/ul Normal 0.0-0.7 [facility] Comment on above: Performed By: #### C BC #### [facility] [address] [place] [address] Dr. Cyril Hendricks Eosinophils/100 WBC (Bld) 0.9 % Normal 0.9-7.0 [facility] Comment on above: Performed By: #### C BC #### [facility] [address] [place] [address] Dr. Cyril Hendricks Erythrocyte distribution width (RBC) [Ratio] 12.3 % Normal 11.0-15.0 [facility] Comment on above: Performed By: #### C BC #### [facility] [address] [place] [address] Dr. Cyril Hendricks Hematocrit (Bld) [Volume fraction] 30.0 % Critically low 36.0-48.0 [facility] Comment on above: Performed By: #### C BC #### [facility] [address] [place] [address] Dr. Cyril Hendricks Hemoglobin (Bld) [Mass/Vol] 10.2 g/dL Critically low 12.0-16.0 [facility] Comment on above: Performed By: #### C BC #### [facility] [address] [place] [address] Dr. Cyril Hendricks IG # 0.05 10e3/ul Critically high 0.00-0.03 [facility] Comment on above: Performed By: #### C BC #### [facility] [address] [place] [address] Dr. Cyril Hendricks IG % 0.4 % Normal 0.0-0.5 [facility] Comment on above: Performed By: #### C BC #### [facility] [address] [place] [address] Dr. Cyril Hendricks LYMPH # 2.8 103/ul Normal 1.2-3.8 [facility] Comment on above: Performed By: #### C BC #### [facility] [address] [place] [address] Dr. Cyril Hendricks Lymphocytes/100 WBC (Bld) 19.7 % Critically low 20.5-60.0 [facility] Comment on above: Performed By: #### C BC #### [facility] [address] [place] [address] Dr. Cyril Hendricks MANUAL DIFF REQ NO Normal [facility] Comment on above: Performed By: #### C BC #### [facility] [address] [place] [address] Dr. Cyril Hendricks MCH (RBC) [Entitic mass] 30.6 pg Normal 26.7-34.0 [facility] Comment on above: Performed By: #### C BC #### [facility] [address] [place] [address] Dr. Cyril Hendricks MCHC (RBC) [Mass/Vol] 34.0 g/dL Normal 29.9-35.2 [facility] Comment on above: Performed By: #### C BC #### [facility] [address] [place] [address] Dr. Cyril Hendricks MCV (RBC) [Entitic vol] 90.1 fL Normal 81.0-99.0 [facility] Comment on above: Performed By: #### C BC #### [facility] [address] [place] [address] Dr. Cyril Hendricks MONO # 0.8 103/ul Normal 0.3-0.8 [facility] Comment on above: Performed By: #### C BC #### [facility] [address] [place] [address] Dr. Cyril Hendricks Monocytes/100 WBC (Bld) 5.9 % Normal 1.7-12.0 [facility] Comment on above: Performed By: #### C BC #### [facility] [address] [place] [address] Dr. Cyril Hendricks NEUT # 10.3 103/ul Critically high 1.4-6.5 [facility] Comment on above: Performed By: #### C BC #### [facility] [address] [place] [address] Dr. Cyril Hendricks Neutrophils/100 WBC (Bld) 72.7 % Normal 43.0-75.0 [facility] Comment on above: Performed By: #### C BC #### [facility] [address] [place] [address] Dr. Cyril Hendricks Platelet mean volume (Bld) [Entitic vol] 9.8 fL Normal 9.5-13.5 [facility] Comment on above: Performed By: #### C BC #### [facility] [address] [place] [address] Dr. Cyril Hendricks PLT 207 103/ul Normal 150-450 [facility] Comment on above: Performed By: #### C BC #### [facility] [address] [place] [address] Dr. Cyril Hendricks RBC 3.33 106/ul Critically low 4.20-5.40 [facility] Comment on above: Performed By: #### C BC #### [facility] [address] [place] [address] Dr. Cyril Hendricks WBC 14.2 103/ul Critically high 4.0-11.0 [facility] Comment on above: Performed By: #### C BC #### [facility] [address] [place] [address] Dr. Cyril Hendricks CBC AUTO DIFFon 01-07-2022 BASO # 0.1 103/ul Normal 0.0-0.1 [facility] Comment on above: Performed By: #### U MICRO, UACSIND #### [facility] [address] [place] [address] Dr. Cyril Hendricks Basophils/100 WBC (Bld) 0.5 % Normal 0.2-2.0 [facility] Comment on above: Performed By: #### U MICRO, UACSIND #### [facility] [address] [address] [address] Cyril Hendricks EO # 0.1 103/ul Normal 0.0-0.7 [facility] Comment on above: Performed By: #### U MICRO, UACSIND #### [facility] [address] [place] [address] Dr. Cyril Hendricks Eosinophils/100 WBC (Bld) 0.9 % Normal 0.9-7.0 [facility] Comment on above: Performed By: #### U MICRO, UACSIND #### [facility] [address] [place] [address] Dr. Cyril Hendricks Erythrocyte distribution width (RBC) [Ratio] 12.4 % Normal 11.0-15.0 [facility] Comment on above: Performed By: #### U MICRO, UACSIND #### [facility] [address] [place] [address] Dr. Cyril Hendricks Hematocrit (Bld) [Volume fraction] 34.3 % Critically low 36.0-48.0 [facility] Comment on above: Performed By: #### U MICRO, UACSIND #### [facility] [address] [place] [address] Dr. Cyril Hendricks Hemoglobin (Bld) [Mass/Vol] 11.6 g/dL Critically low 12.0-16.0 [facility] Comment on above: Performed By: #### U MICRO, UACSIND #### [facility] [address] [place] [address] Dr. Cyril Hendricks IG # 0.06 10e3/ul Critically high 0.00-0.03 [facility] Comment on above: Performed By: #### U MICRO, UACSIND #### [facility] [address] [place] [address] Dr. Cyril Hendricks IG % 0.4 % Normal 0.0-0.5 [facility] Comment on above: Performed By: #### U MICRO, UACSIND #### [facility] [address] [address] [address] Cyril Hendricks LYMPH # 3.1 103/ul Normal 1.2-3.8 [facility] Comment on above: Performed By: #### U MICRO, UACSIND #### [facility] [address] [address] [address] Cyril Hendricks Lymphocytes/100 WBC (Bld) 20.4 % Critically low 20.5-60.0 [facility] Comment on above: Performed By: #### U MICRO, UACSIND #### [facility] [address] [place] [address] Dr. Cyril Hendricks MANUAL DIFF REQ NO Normal [facility] Comment on above: Performed By: #### U MICRO, UACSIND #### [facility] [address] [place] [address] Dr. Cyril Hendricks MCH (RBC) [Entitic mass] 30.6 pg Normal 26.7-34.0 [facility] Comment on above: Performed By: #### U MICRO, UACSIND #### [facility] [address] [place] [address] Dr. Cyril Hendricks MCHC (RBC) [Mass/Vol] 33.8 g/dL Normal 29.9-35.2 [facility] Comment on above: Performed By: #### U MICRO, UACSIND #### [facility] [address] [place] [address] Dr. Cyril Hendricks MCV (RBC) [Entitic vol] 90.5 fL Normal 81.0-99.0 [facility] Comment on above: Performed By: #### U MICRO, UACSIND #### [facility] [address] [place] [address] Dr. Cyril Hendricks MONO # 0.9 103/ul Critically high 0.3-0.8 [facility] Comment on above: Performed By: #### U MICRO, UACSIND #### [facility] [address] [place] [address] Dr. Cyril Hendricks Monocytes/100 WBC (Bld) 6.2 % Normal 1.7-12.[address] [facility] Comment on above: Performed By: #### U MICRO, UACSIND #### [facility] [address] [place] [address] Dr. Cyril Hendricks NEUT # 10.9 103/ul Critically high 1.4-6.5 [facility] Comment on above: Performed By: #### U MICRO, UACSIND #### [facility] [address] [place] [address] Dr. Cyril Hendricks Neutrophils/100 WBC (Bld) 71.6 % Normal 43.0-75.0 [facility] Comment on above: Performed By: #### U MICRO, UACSIND #### [facility] [address] [place] [address] Dr. Cyril Hendricks Platelet mean volume (Bld) [Entitic vol] 11.1 fL Normal 9.5-13.5 [facility] Comment on above: Performed By: #### U MICRO, UACSIND #### [facility] [address] [place] [address] Dr. Cyril Hendricks PLT 240 103/ul Normal 150-450 [facility] Comment on above: Performed By: #### U MICRO, UACSIND #### [facility] [address] [place] [address] Dr. Cyril Hendricks RBC 3.79 106/ul Critically low 4.20-5.40 [facility] Comment on above: Performed By: #### U MICRO, UACSIND #### [facility] [address] [place] [address] Dr. Cyril Hendricks WBC 15.3 103/ul Critically high 4.0-11.0 [facility] Comment on above: Performed By: #### U MICRO, UACSIND #### [facility] [address] [place] [address] Dr. Cyril Hendricks Covid-19 PCR ([facility])on SARS-CoV-2 (COVID-19) RNA ALFREDO+probe Ql (Unsp spec) Not detected Normal NOT DETECTED [facility] Comment on above: Result Comment: When diagnostic [...] for this test is supported by the [place] of Health and Human Service's declaration that [...] used). Performed By: #### H CVPCRR #### [facility] [address] [place] [address] Dr. Cyril Hendricks DRUG SCREEN RAPID (URINE)on 01-07-2022 AMP Negative Normal NEGATIVE [facility] Comment on above: Performed By: #### U MICRO, UACSIND #### [facility] [address] [place] [address] Dr. Cyril Hendricks BAR Negative Normal NEGATIVE [facility] Comment on above: Performed By: #### U MICRO, UACSIND #### [facility] [address] [place] [address] Dr. Cyril Hendricks BUP Negative Normal NEGATIVE [facility] Comment on above: Performed By: #### U MICRO, UACSIND #### [facility] [address] [place] [address] Dr. Cyril Hendricks BZO Negative Normal NEGATIVE [facility] Comment on above: Performed By: #### U MICRO, UACSIND #### [facility] [address] [place] [address] Dr. Cyril Hendricks DARIN Negative Normal NEGATIVE [facility] Comment on above: Performed By: #### U MICRO, UACSIND #### [facility] [address] [place] [address] Dr. Cyril Hendricks CUT-OFFS SEE BELOW Normal [facility] Comment on above: Result Comment: AMP [...] Performed By: #### U MICRO, UACSIND #### [facility] [address] [place] [address] Dr. Cyril Hendricks DRUG CUT HEADER DRUG CLASS TEST SYSTEM CUT-OFF CONCENTRATIONS ARE FOLLOWS: Normal [facility] Comment on above: Performed By: #### U MICRO, UACSIND #### [facility] [address] [place] [address] Dr. Cyril Hendricks mAMP Negative Normal NEGATIVE [facility] Comment on above: Performed By: #### U MICRO, UACSIND #### [facility] [address] [place], [place] [address] Dr. Cyril Hendricks MTD Negative [facility] Comment on above: Performed By: #### U MICRO, UACSIND #### [facility] [address] [place] [address] Dr. Cyril Hendricks OPI Negative Normal NE[facility] Comment on above: Performed By: #### U MICRO, UACSIND #### [facility] [address] [place] [address] Dr. Cyril Hendricks OXY Negative Normal NE[facility]IVE [facility] Comment on above: Performed By: #### U MICRO, UACSIND #### [facility] [address] [place] [address] Dr. Cyril Hendricks PCP Negative Normal NEGATIVE [facility] Comment on above: Performed By: #### U MICRO, UACSIND #### [facility] [address] [address] [address] Cyril Hendricks PPX Negative Normal NEGATIVE [facility] Comment on above: Performed By: #### U MICRO, UACSIND #### [facility] [address] [address] [address] Cyril Hendricks TCA Negative Normal NEGATIVE [facility] Comment on above: Performed By: #### U MICRO, UACSIND #### [facility] [address] [place] [address] Dr. Cyril Hendricks THC Negative Normal NEGATIVE [facility] Comment on above: Performed By: #### U MICRO, UACSIND #### [facility] [address] [place] [address] Dr. Cyril Hendricks TYPE AND SCREENon 01-07-2022 TYPE AND SCREEN Negative Normal [facility] Comment on above: Performed By: #### H CVPCRR #### [facility] [address] [place] [address] Dr. Cyril Hendricks CULTURE URINEon 12-29-2021 CULTURE URINE Culture Observations: NO GROWTH. Normal [facility] Comment on above: Performed By: #### U RCX #### [facility] [address] [place] [address] Dr. Cyril Hendricks UA (CLEAN/CATCH) DISH TECHNICIAN/MICRO I F IND.on 12-29-2021 Bilirubin Ql (U) Negative Normal NEGATIVE [facility] Comment on above: Performed By: #### U MICRO, UACSIND #### [facility] [address] [place] [address] Dr. Cyril Hendricks Clarity (U) SL CLOUDY Abnormal CLEAR [facility] Comment on above: Performed By: #### U MICRO, UACSIND #### [facility] [address] [place] [address] Dr. Cyril Hendricks Color (U) LT. YELLOW Normal YELLOW [facility] Comment on above: Performed By: #### U MICRO, UACSIND #### [facility] [address] [place] [address] Dr. Cyril Hendricks Glucose Ql (U) Negative Normal NEGATIVE [facility] Comment on above: Performed By: #### U MICRO, UACSIND #### [facility] [address] [address] [address] Cyril Hendricks Hemoglobin Ql (U) Negative Normal NEGATIVE [facility] Comment on above: Performed By: #### U MICRO, UACSIND #### [facility] [address] [address] [address] Cyril Hendricks Ketones Ql (U) Negative Normal NEGATIVE [facility] Comment on above: Performed By: #### U MICRO, UACSIND #### [facility] [address] [address] [address] Cyril Hendricks LEUKOCYTES LARGE Abnormal NEGATIVE [facility] Comment on above: Performed By: #### U MICRO, UACSIND #### [facility] [address] [place] [address] Dr. Cyril Hendricks Nitrite Ql (U) Negative Normal NEGATIVE [facility] Comment on above: Performed By: #### U MICRO, UACSIND #### [facility] [address] [place] [address] Dr. Cyril Hendricks pH (U) 6.5 [pH] Normal 5-9 [facility] Comment on above: Performed By: #### U MICRO, UACSIND #### [facility] [address] [place] [address] Dr. Cyril Hendricks SPEC GRAVITY 1.010 Normal 1.005-<=1.02 5 [facility] Comment on above: Performed By: #### U MICRO, UACSIND #### [facility] [address] [address] [address] Cyril Hendricks UA PROTEIN Negative Normal NEGATIVE/ TRACE [facility] Comment on above: Performed By: #### U MICRO, UACSIND #### [facility] [address] [place] [address] Dr. Cyril Hendricks UR MICRO IND INDICATED Normal [facility] Comment on above: Performed By: #### U MICRO, UACSIND #### [facility] [address] [place] [address] Dr. Cyril Hendricks Urobilinogen Qn (U) 0.2 {Georgina'U}/dL Normal 0.2 - 1. 0 [facility] Comment on above: Performed By: #### U MICRO, UACSIND #### [facility] [address] [address] [address] Cyril Hendricks URINE MICROSCOPIC ONLYon BACTERIA SMALL Abnormal NONE SEEN [facility] Comment on above: Performed By: #### U MICRO, UACSIND #### [facility] [address] [address] [address] Cyril Hendricks Bacteria identified Cx Nom (U) INDICATED Normal [facility] Comment on above: Performed By: #### U MICRO, UACSIND #### [facility] [address] [place] [address] Dr. Cyril Hendricks CAST NONE SEEN Normal NONE SEEN [facility] Comment on above: Performed By: #### U MICRO, UACSIND #### [facility] [address] [place] [address] Dr. Cyril Hendricks Crystals LM Nom (Urine sed) NONE SEEN Normal NONE SEEN [facility] Comment on above: Performed By: #### U MICRO, UACSIND #### [facility] [address] [place] [address] Dr. Cyril Hendricks Epithelial cells LM Ql (Urine sed) MANY Abnormal NONE SEEN /RARE [facility] Comment on above: Performed By: #### U MICRO, UACSIND #### [facility] [address] [place] [address] Dr. Cyril Hendricks MUCOUS NONE SEEN Normal NONE SEEN [facility] Comment on above: Performed By: #### U MICRO, UACSIND #### [facility] [address] [place] [address] Dr. Cyril Hendricks RBC 0-2 Normal 0-2 [facility] Comment on above: Performed By: #### U MICRO, UACSIND #### [facility] [address] [place] [address] Dr. Cyril Hendricks WBC 10-20 Abnormal NONE SEEN [facility] Comment on above: Performed By: #### U MICRO, UACSIND #### [facility] [address] [address] [address] Cyril Hendricks GROUP B STREP CULTUREon 12-07 S. agalactiae Ag Ql (Unsp spec) Culture Observations: NEGATIVE FOR GROUP B STREPTOCOCCUS. Normal [facility] Comment on above: Performed By: #### G BSCX #### [facility] [address] [address] [address] Cyril Hendricks SSAon 12-13-2021 SSA <0.3 Normal <7.0 [facility] Comment on above: Result Comment: Reference Range: <7.0 Negative 7.0-10.0 Equivocal >10.0 Positive Performed By: #### S SARO, TSH, FT4, SSBLA #### [facility] [address] [place] [id number] Accountancy Professor: Homer Hoffman MD SSBon 12-13-2021 SSB <0.3 Normal <7.0 [facility] Comment on above: Result Comment: Reference Range: <7.0 Negative 7.0-10.0 Equivocal >10.0 Positive Performed By: #### S SARO, TSH, FT4, SSBLA #### [facility] [address] [place] [id number] Accountancy Professor: Homer Hoffman MD No Panel Informationon 12-12 [facility] T4, Freeon 12-12-2021 Thyroxine, Free 0.98 ng/dL 0.93 - 1.70 ng/dL [facility] TSHon 12-12-2021 TSH Qn 4.35 m[IU]/L [facility] Thyroid Stim. Horm.on 2021 Thyroid Stim. Horm. 4.35 uIU/mL Normal 0.30-5.00 [facility] Comment on above: Performed By: #### S SARO, TSH, FT4, SSBLA #### [facility] [address] [place] [id number] Accountancy Professor: Homer Hoffman MD Thyroxine, Freeon 12-12-2021 Thyroxine, Free 0.98 ng/dL Normal 0.93-1.70 [facility] Comment on above: Performed By: #### S SARO, TSH, FT4, SSBLA #### [facility] [address] [place] [address] Accountancy Professor: Homer Hoffman MD US PREG BIOPHY W [...] by: SOFIA KABA Date: 2021-11-27 13:55 [facility] COVID + FLU Quick Testingon 11-13-2021 SARS-CoV-2 (COVID-19) RNA ALFREDO+probe Ql (Unsp spec) Negative [facility] [employer] Other COVID + FLU Quick Testing Negative [employer] Other GLUCOSE - 1HRon 10-23-2021 Glucose [Mass/Vol] 83 mg/dL Normal 74-106 [facility] Comment on above: Performed By: #### G LU1HR #### [facility] [address] [place] [address] Dr. Cyril Hendricks CHLAMYDIA/GONOCOCCUS ALFREDO (SW AB/URINE/PAPon 10-05-2021 Chlamydia trachomatis, ALFREDO Negative Normal Negative [facility] Comment on above: Performed By: #### C T/NGNA #### [facility] [address] [place] [address] Dr. Cyril Hendricks Neisseria gonorrhoeae, ALFREDO Negative Normal Negative [facility] Comment on above: Performed By: #### C T/NGNA #### [facility] [address] [place] [address] Dr. Cyril Hendricks VAGINITIS/VAGINOSIS DNA PROB Maurice 10-04-2021 Krista species Positive Abnormal Negative [facility] Comment on above: Performed By: #### H CVPCRR #### [facility] [address] [place] [address] Dr. Cyril Hendricks Gardnerella vaginalis Negative Normal Negative [facility] Comment on above: Performed By: #### H CVPCRR #### [facility] [address] [place] [address] Dr. Cyril Hendricks Trichomonas vaginalis Negative Normal Negative [facility] Comment on above: Performed By: #### H CVPCRR #### [facility] [address] [place] [address] Dr. Cyril Hendricks HEP B SURFACE ANTIGEN SCREEN on 10-03-2021 HBsAg Screen Negative Normal Negative [facility] Comment on above: Performed By: #### H CVPCRR #### [facility] [address] [place] [address] Dr. Cyril Hendricks HEPATITIS C VIRUS AB W/ REFL EX QUANTon 10-03-2021 HCV AB <0.1 Normal 0.0-0.9 [facility] Comment on above: Performed By: #### H CVPCRR #### [facility] [address] [place] [address] Dr. Cyril Hendricks Interpretation: Comment Normal [facility] Comment on above: Result Comment: Nega tive Not infected with HCV, unless recent infection is suspected or other evidence exists to indicate HCV infection. Performed By: #### H CVPCRR #### [facility] [address] [place] [address] Dr. Cyril Hendricks HIV 1 AND 2 WITH REFLEXon HIV Screen 4th Generation wRfx Non-Reactive Normal Non Reactive [facility] Comment on above: Result Comment: HIV Negative HIV-1/HIV-2 antibodies and HIV-1 p24 antigen were NOT detected. There is no laboratory evidence of HIV infection. Performed By: #### H IV12 #### [facility] [address] [place] [address] Dr. Cyril Hendricks RPR QUANTon 10-03-2021 Rapid Plasma Reagin, Quant Non-Reactive Normal NonRea<1:1 [facility] Comment on above: Result Comment: Juliette brito Note: This test does not meet current guidelines for screening and diagnosis of syphilis. This test is intended for following treatment response in patients being treated for syphilis infection. To screen for syphilis infection, a reflex cascade that includes both RPR and a treponema-specific assay should be utilized, such as Treponema pallidum (Syphilis) Screening [place] (397988) or Rapid Plasma Reagin (RPR) Test With Reflex to Quantitative RPR and Confirmatory Treponema pallidum Antibodies (791606). Performed By: #### U MICRO, UACSIND #### [facility] [address] [place] [address] Dr. Cyril Hendricks RUBELLA AB IGGon 10-03-2021 Rubella Antibodies, IgG <0.90 Critically low Immune > 0.99 [facility] Comment on above: Result Comment: Non- immune <0.90 Equivocal 0.90 - 0.99 Immune >0.99 Performed By: #### U MICRO, UACSIND #### [facility] [address] [place] [address] Dr. Cyril Hendricks CBC AUTO DIFFon 10-02-2021 BASO # 0.1 103/ul Normal 0.0-0.1 [facility] Comment on above: Performed By: #### U MICRO, UACSIND #### [facility] [address] [place] [address] Dr. Cyril Hendricks Basophils/100 WBC (Bld) 0.4 % Normal 0.2-2.0 [facility] Comment on above: Performed By: #### U MICRO, UACSIND #### [facility] [address] [place] [address] Dr. Cyril Hendricks EO # 0.1 103/ul Normal 0.0-0.7 [facility] Comment on above: Performed By: #### U MICRO, UACSIND #### [facility] [address] [place] [address] Dr. Cyril Hendricks Eosinophils/100 WBC (Bld) 1.1 % Normal 0.9-7.0 [facility] Comment on above: Performed By: #### U MICRO, UACSIND #### [facility] [address] [place] [address] Dr. Cyril Hendricks Erythrocyte distribution width (RBC) [Ratio] 13.5 % Normal 11.0-15.0 [facility] Comment on above: Performed By: #### U MICRO, UACSIND #### [facility] [address] [place] [address] Dr. Cyril Hendricks Hematocrit (Bld) [Volume fraction] 34.5 % Critically low 36.0-48.0 [facility] Comment on above: Performed By: #### U MICRO, UACSIND #### [facility] [address] [place] [address] Dr. Cyril Hendricks Hemoglobin (Bld) [Mass/Vol] 12.0 g/dL Normal 12.0-16.0 [facility] Comment on above: Performed By: #### U MICRO, UACSIND #### [facility] [address] [place] [address] Dr. Cyril Hendricks IG # 0.04 10e3/ul Critically high 0.00-0.03 [facility] Comment on above: Performed By: #### U MICRO, UACSIND #### [facility] [address] [place] [address] Dr. Cyril Hendricks IG % 0.3 % Normal 0.0-0.5 [facility] Comment on above: Performed By: #### U MICRO, UACSIND #### [facility] [address] [place] [address] Dr. Cyril Hendricks LYMPH # 2.6 103/ul Normal 1.2-3.8 [facility] Comment on above: Performed By: #### U MICRO, UACSIND #### [facility] [address] [place] [address] Dr. Cyril Hendricks Lymphocytes/100 WBC (Bld) 21.3 % Normal 20.5-60.0 [facility] Comment on above: Performed By: #### U MICRO, UACSIND #### [facility] [address] [address] [address] Cyril Hendricks MANUAL DIFF REQ NO Normal [facility] Comment on above: Performed By: #### U MICRO, UACSIND #### [facility] [address] [address] [address] Cyril Hendricks MCH (RBC) [Entitic mass] 32.5 pg Normal 26.7-34.0 [facility] Comment on above: Performed By: #### U MICRO, UACSIND #### [facility] [address] [place] [address] Dr. Cyril Hendricks MCHC (RBC) [Mass/Vol] 34.8 g/dL Normal 29.9-35.2 [facility] Comment on above: Performed By: #### U MICRO, UACSIND #### [facility] [address] [place] [address] Dr. Cyril Hendricks MCV (RBC) [Entitic vol] 93.5 fL Normal 81.0-99.0 [facility] Comment on above: Performed By: #### U MICRO, UACSIND #### [facility] [address] [place] [address] Dr. Cyril Hendricks MONO # 0.8 103/ul Normal 0.3-0.8 [facility] Comment on above: Performed By: #### U MICRO, UACSIND #### [facility] [address] [place] [address] Dr. Cyril Hendricks Monocytes/100 WBC (Bld) 6.2 % Normal 1.7-12.0 [facility] Comment on above: Performed By: #### U MICRO, UACSIND #### [facility] [address] [place] [address] Dr. Cyril Hendricks NEUT # 8.6 103/ul Critically high 1.4-6.5 [facility] Comment on above: Performed By: #### U MICRO, UACSIND #### [facility] [address] [place] [address] Dr. Cyril Hendricks Neutrophils/100 WBC (Bld) 70.7 % Normal 43.0-75.0 [facility] Comment on above: Performed By: #### U MICRO, UACSIND #### [facility] [address] [address] [address] Cyril Hendricks Platelet mean volume (Bld) [Entitic vol] 9.1 fL Critically low 9.5-13.5 [facility] Comment on above: Performed By: #### U MICRO, UACSIND #### [facility] [address] [address] [address] Cyril Hendricks PLT 257 103/ul Normal 150-450 [facility] Comment on above: Performed By: #### U MICRO, UACSIND #### [facility] [address] [address] [address] Cyril Hendricks RBC 3.69 106/ul Critically low 4.20-5.40 [facility] Comment on above: Performed By: #### U MICRO, UACSIND #### [facility] [address] [address] [address] Cyril Hendricks WBC 12.2 103/ul Critically high 4.0-11.0 [facility] Comment on above: Performed By: #### U MICRO, UACSIND #### [facility] [address] [address] [address] Cyril Hendricks CULTURE URINEon 10-02-2021 CULTURE URINE Culture Observations: MODERATE GROWTH OF MIXED GENITAL DRAGAN. NO POTENTIAL PATHOGENS SEEN. [facility] Comment on above: Performed By: #### H CVPCRR #### [facility] [address] [place] [address] Dr. Cyril Hendricks GLYCOHEMOGLOBIN A1Con 2021 ADA RECOMMENDATION SEE BELOW Normal [facility] Comment on above: Result Comment: ADA RECOMMENDED LIMIT 4.0 - 6.0 ADA THERAPEUTIC TARGET < 7.0 ACTION SUGGESTED > 7.0 Performed By: #### H CVPCRR #### [facility] [address] [place] [address] Dr. Cyril Hendricks Glucose [Mass/Vol] 80 mg/dL Normal [facility] Comment on above: Performed By: #### H CVPCRR #### [facility] [address] [place] [address] Dr. Cyril Hendricks HbA1c (Bld) [Mass fraction] 4.4 % Critically low 4.5-6.2 [facility] Comment on above: Performed By: #### H CVPCRR #### [facility] [address] [address] [address] Cyril Hendricks TYPE AND SCREENon 10-02-2021 TYPE AND SCREEN Negative Normal [facility] Comment on above: Performed By: #### H CVPCRR #### [facility] [address] [address] [address] Cyril Hendricks US PREG PLACENTAon 2 [...] SOFIA KABA Date: 2021-10-02 10:47 Normal [facility] US PREG ANATOMY SINGLEon US PREG ANATOMY [...] (44% by ultrasound, 29% by expected) FL/AC: [id number] FL/BPD: 0.350907 HC/AC: 1.753087 GESTATIONAL AGE: Age by EDC: 21 weeks, 3 days NOY by EDC: 01/12/2022 Age by current US: 21 weeks, 1 day NOY by current US: 01/14/2022 IMPRESSION: 1. Single live intrauterine with growth detailed above. 2. Posterior, low-lying placenta. Electronically authenticated by: MARS FRANKEL Date: 2021-09-04 16:30 [facility] Vital Signs Date Time Vital Sign Value Performing Clinician Facility 02-03-2024 09:23-0400 Body temperature 97.88 [degF] Siva Schulte [facility] 02-03-2024 09:23-0400 Diastolic blood pressure 70 mm[Hg] Siva Schulte [facility] 02-03-2024 09:23-0400 Heart rate 85 /min Siva Schulte [facility] 02-03-2024 09:23-0400 Respiratory rate 18 /min Siva Schulte [facility] 02-03-2024 09:23-0400 SaO2% (BldA) [Mass fraction] 99 % Siva Schulte [facility] 02-03-2024 09:23-0400 Systolic blood pressure 106 mm[Hg] Siva Schulte [facility] 09-23-2023 09:16-0400 Body temperature 98.42 [degF] Wil Chandra [facility] 09-23-2023 09:16-0400 Diastolic blood pressure 68 mm[Hg] Wil Chadnra [facility] 09-23-2023 09:16-0400 Heart rate 82 /min Wil Chandra [facility] 09-23-2023 09:16-0400 Respiratory rate 18 /min Wil Chandra [facility] 09-23-2023 09:16-0400 SaO2% (BldA) [Mass fraction] 97 % Wil Chandra [facility] 09-23-2023 09:16-0400 Systolic blood pressure 98 mm[Hg] Wil Chandra [facility] 08-27-2023 12:24-0400 Diastolic blood pressure 61 mm[Hg] [facility] 08-27-2023 12:24-0400 Heart rate 77 /min [facility] 08-27-2023 12:24-0400 Mean blood pressure 72 mm[Hg] [facility] 08-27-2023 12:24-0400 Respiratory rate 16 /min [facility] 08-27-2023 12:24-0400 SaO2% (BldA) [Mass fraction] 97 % [facility] 08-27-2023 12:24-0400 Systolic blood pressure 93 mm[Hg] [facility] 08-27-2023 11:30-0400 Diastolic blood pressure 69 mm[Hg] [facility] 08-27-2023 11:30-0400 Heart rate 74 /min [facility] 08-27-2023 11:30-0400 Mean blood pressure 82 mm[Hg] [facility] 08-27-2023 11:30-0400 Respiratory rate 16 /min [facility] 08-27-2023 11:30-0400 SaO2% (BldA) [Mass fraction] 99 % [facility] 08-27-2023 11:30-0400 Systolic blood pressure 107 mm[Hg] [facility] 08-27-2023 10:30-0400 Diastolic blood pressure 62 mm[Hg] [facility] 08-27-2023 10:30-0400 Heart rate 91 /min [facility] 08-27-2023 10:30-0400 Mean blood pressure 77 mm[Hg] [facility] 08-27-2023 10:30-0400 Respiratory rate 18 /min [facility] 08-27-2023 10:30-0400 SaO2% (BldA) [Mass fraction] 100 % [facility] 08-27-2023 10:30-0400 Systolic blood pressure 107 mm[Hg] [facility] 08-27-2023 09:41-0400 Body temperature 98.6 [degF] [facility] 08-27-2023 09:41-0400 Heart rate 80 /min [facility] 01-04-2023 00:03-0400 Body temperature 98.78 [degF] Siva Schulte [facility] 01-04-2023 00:03-0400 Diastolic blood pressure 54 mm[Hg] Siva Schulte [facility] 01-04-2023 00:03-0400 Heart rate 97 /min Siva Schulte [facility] 01-04-2023 00:03-0400 Mean blood pressure 70 mm[Hg] Siva Schulte [facility] 01-04-2023 00:03-0400 Respiratory rate 18 /min Siva Schulte [facility] 01-04-2023 00:03-0400 SaO2% (BldA) [Mass fraction] 94 % Siva Schulte [facility] 01-04-2023 00:03-0400 Systolic blood pressure 102 mm[Hg] Siva Eris [facility] 01-03-2023 23:00-0400 Body temperature 100.04 [degF] Siva Eris [facility] 01-03-2023 23:00-0400 Diastolic blood pressure 62 mm[Hg] Siva Eris [facility] 01-03-2023 23:00-0400 Heart rate 100 /min Siva Eris [facility] 01-03-2023 23:00-0400 Mean blood pressure 75 mm[Hg] Siva Eris [facility] 01-03-2023 23:00-0400 Systolic blood pressure 100 mm[Hg] Siva Eris [facility] 01-03-2023 22:42-0400 Body temperature 100.76 [degF] Siva Eris [facility] 01-03-2023 22:42-0400 Diastolic blood pressure 59 mm[Hg] Siva Eris [facility] 01-03-2023 22:42-0400 Heart rate 105 /min Siva Eris [facility] 01-03-2023 22:42-0400 Respiratory rate 20 /min Siva Schulte [facility] 01-03-2023 22:42-0400 SaO2% (BldA) [Mass fraction] 99 % Siva Schulte [facility] 01-03-2023 22:42-0400 Systolic blood pressure 96 mm[Hg] Siva Eris [facility] 10-02-2022 21:29-0400 Diastolic blood pressure 72 mm[Hg] PHYSICIAN NO [facility] 10-02-2022 21:29-0400 Heart rate 94 /min PHYSICIAN NO [facility] 10-02-2022 21:29-0400 Respiratory rate 18 /min PHYSICIAN NO [facility] 10-02-2022 21:29-0400 SaO2% (BldA) [Mass fraction] 98 % PHYSICIAN NO [facility] 10-02-2022 21:29-0400 Systolic blood pressure 141 mm[Hg] PHYSICIAN NO [facility] 10-02-2022 17:03-0400 Body height 170.18 cm PHYSICIAN NO [facility] 10-02-2022 17:03-0400 Body temperature 98.3 [degF] PHYSICIAN NO [facility] 10-02-2022 17:03-0400 Body weight 76.4 kg PHYSICIAN NO [facility] 09-25-2022 13:25-0400 Body height 170.18 cm Viet Yuri Other [employer] Other 09-25-2022 13:25-0400 Body mass index (BMI) [Ratio] 26.62 kg/m2 Viet Welch Other [employer] Other 09-25-2022 13:25-0400 Body temperature 98.2 [degF] Viet Welch Other [employer] Other 09-25-2022 13:25-0400 Body weight 77.11 kg Viet Welch Other [employer] Other 09-25-2022 13:25-0400 Diastolic blood pressure 68 mm[Hg] Viet Welch Other [employer] Equipment Other 09-25-2022 13:25-0400 Respiratory rate 18 /min Viet Welch Other [employer] Other 09-25-2022 13:25-0400 SaO2% (BldA) [Mass fraction] 98 % Viet Welch Other [facility] [employer] Other 09-25-2022 13:25-0400 Systolic blood pressure 107 mm[Hg] Viet Welch Other [facility] [employer] Other 09-06-2022 13:54-0400 Diastolic blood pressure 72 mm[Hg] Wil Corazon [facility] 09-06-2022 13:54-0400 Heart rate 60 /min Wil Corazon [facility] 09-06-2022 13:54-0400 Respiratory rate 16 /min Wil Corazon [facility] 09-06-2022 13:54-0400 SaO2% (BldA) [Mass fraction] 100 % Wil Corazon [facility] 09-06-2022 13:54-0400 Systolic blood pressure 103 mm[Hg] Wil Corazon [facility] 09-06-2022 11:41-0400 Diastolic blood pressure 65 mm[Hg] Wil Corazon [facility] 09-06-2022 11:41-0400 Heart rate 58 /min Wil Corazon [facility] 09-06-2022 11:41-0400 Mean blood pressure 77 mm[Hg] Wil Corazon [facility] 09-06-2022 11:41-0400 Respiratory rate 16 /min Wil Corazon [facility] 09-06-2022 11:41-0400 SaO2% (BldA) [Mass fraction] 100 % Wil Corazon [facility] 09-06-2022 11:41-0400 Systolic blood pressure 102 mm[Hg] Wil Corazon [facility] 09-06-2022 10:42-0400 Body temperature 98.24 [degF] Wil Chandra [facility] 09-06-2022 10:42-0400 bodymassindex 1.17 Wil Chandra [facility] Comment on above: [facility]: [facility] 10:42-0400 Diastolic blood pressure 71 mm[Hg] Wil Jollye [facility] 09-06-2022 10:42-0400 Heart rate 73 /min Wil Chandra [facility] 09-06-2022 10:42-0400 Height/Length Percentile 84.89 Wil Chandra [facility] Comment on above: Result Comment: ^~:![facility] 09-06-2022 10:42-0400 Height/Length Z-Score 1.03 Wil Chandra [facility] Comment on above: Result Comment: ^~:![facility] 09-06-2022 10:42-0400 Respiratory rate 16 /min Wil Chandra [facility] 09-06-2022 10:42-0400 SaO2% (BldA) [Mass fraction] 98 % Wil Chandra [facility] 09-06-2022 10:42-0400 Systolic blood pressure 111 mm[Hg] Wil Chandra [facility] 09-06-2022 10:42-0400 weight 1.47 Wil Jollye [facility] Comment on above: Result Comment: [facility]-06[facility] 10:42-0400 Weight Percentile 92.90 % Wil Chandra [facility] Comment on above: Result Comment: ^~:!Percentile Source -[facility] 08-14-2022 21:30-0500 Diastolic blood pressure 79 mm[Hg] Bob Llanos [facility] 08-14-2022 21:30-0500 Heart rate 87 /min Bob Llanos [facility] 08-14-2022 21:30-0500 Mean blood pressure 93 mm[Hg] Bob Llanos [facility] 08-14-2022 21:30-0500 Nursing Progress Note Reason Other: pt to US via stretcher at this time. Bob Llanos [facility] 08-14-2022 21:30-0500 Respiratory rate 16 /min Bob Llanos [facility] 08-14-2022 21:30-0500 SaO2% (BldA) [Mass fraction] 100 % Bob Llanos [facility] 08-14-2022 21:30-0500 Systolic blood pressure 120 mm[Hg] Bob Llanos [facility] 08-14-2022 19:20-0500 Body temperature 98.96 [degF] Bob Llanos [facility] 08-14-2022 19:20-0500 bodymassindex 1.17 Bob Llanos [facility] Comment on above: Result Comment: ^~:!ZScore Source -[facility] 08-14-2022 19:20-0500 Diastolic blood pressure 61 mm[Hg] Bob Llanos [facility] 08-14-2022 19:20-0500 Heart rate 98 /min Bob Llanos [facility] 08-14-2022 19:20-0500 Height/Length Percentile 84.91 Bob Llanos [facility] Comment on above: Result Comment: ^~:!Percentile Source -[facility] 08-14-2022 19:20-0500 Height/Length Z-Score 1.03 Bob Llanos [facility] Comment on above: Result Comment: ^[facility] 08-14-[facility] 19:20-0500 Respiratory rate 16 /min Bob Llanos [facility] 08-14-2022 19:20-0500 SaO2% (BldA) [Mass fraction] 99 % Bob Llanos [facility] 08-14-2022 19:20-0500 Systolic blood pressure 114 mm[Hg] Bob Llanos [facility] 08-14-2022 19:20-0500 weight 1.47 Bob Llanos [facility] Comment on above: Result Comment: ^~:![facility] 08-14-2022 19:20-0500 Weight Percentile 92.94 % Bob Llanos [facility] Comment on above: Result Comment: ^~:!Percentile Source -[facility] 06-24-2022 13:30-0500 Body height 170.18 cm Viet Welch Other [employer] Other 06-24-2022 13:30-0500 Body mass index (BMI) [Ratio] 26.62 kg/m2 Viet Welch Other [employer] Other 06-24-2022 13:30-0500 Body temperature 97.8 [degF] Viet Welch Other [employer] Other 06-24-2022 13:30-0500 Body weight 77.11 kg Viet Welch Other [employer] Other 06-24-2022 13:30-0500 Diastolic blood pressure 63 mm[Hg] Viet Welch Other [employer] Other 06-24-2022 13:30-0500 Respiratory rate 18 /min Viet Welch Other [employer] Other 06-24-2022 13:30-0500 SaO2% (BldA) [Mass fraction] 98 % Viet Welch Other [employer] Other 06-24-2022 13:30-0500 Systolic blood pressure 97 mm[Hg] Viet Welch Other [employer] Other 11-13-2021 14:05-0400 Body height 170.18 cm Michael Clarice Other [employer] Other 11-13-2021 14:05-0400 Body mass index (BMI) [Ratio] 26.62 kg/m2 Michael Oneil Other [employer] Other 11-13-2021 14:05-0400 Body temperature 98.4 [degF] Michael Oneil Other [employer] Other 11-13-2021 14:05-0400 Body weight 77.11 kg Michael Oneil Other [employer] Other 11-13-2021 14:05-0400 Respiratory rate 18 /min Michael Oneil Other [employer] Other 11-13-2021 14:05-0400 SaO2% (BldA) [Mass fraction] 98 % Michael Oneil Other [employer] Other 11-06-2021 15:45-0400 Body height Kendra Witt Other [employer] Other 11-06-2021 15:45-0400 Body mass index (BMI) [Ratio] 26.62 kg/m2 Kendra Witt Other [employer] Other 11-06-2021 15:45-0400 Body weight 77.11 kg Kendra Witt Other [employer] Other 11-06-2021 15:45-0400 Respiratory rate 20 /min Kendra Witt Other [employer] Other 11-06-2021 15:45-0400 SaO2% (BldA) [Mass fraction] 98 % Kendra Witt Other [employer] Other Encounters Encounter Date Encounter Type Care Provider Facility Start: 02-03-2024 End: 02-03-2024 Emergency department patient visit Siva Schulte [facility] Start: 01-26-2024 End: 01-26-2024 ambulatory JUVENAL MIRI Not Available Start: 12-29-2023 End: 12-29-2023 ambulatory GONSALO CORRLA Not Available Start: 12-22-2023 End: 12-22-2023 ambulatory JUVENAL R [facility] Start: 12-01-2023 End: 12-01-2023 ambulatory JUVENAL MIRI Not Available Start: 11-10-2023 End: 11-10-2023 ambulatory JUVENAL R [facility] Start: 10-27-2023 End: 10-27-2023 ambulatory GONSALO ELLIS Not Available Start: 09-29-2023 End: 09-29-2023 ambulatory JUVENAL MIRI Not Available Start: 09-23-2023 End: 09-23-2023 Emergency department patient visit Wil Corazon [facility] Start: 09-04-2023 End: 09-04-2023 ambulatory JUVENAL THORPE Not Available Start: 08-27-2023 End: 08-27-2023 Emergency department patient visit Emily Harper [facility] Start: 08-18-2023 End: 08-18-2023 ambulatory SELAM ELSA Facility:[facility] Start: 01-03-2023 End: 01-04-2023 Emergency department patient visit Siva Schulte [facility] Start: 12-12-2022 End: 12-12-2022 ambulatory Kenneth Mills Other [employer] Other Start: 12-12-2022 Telephone encounter Kenneth Mills [facility] [place] Start: 10-02-2022 End: 10-02-2022 Emergency department patient visit Jose Silverman Facility:[facility] Start: 10-02-2022 End: 10-02-2022 Emergency department patient visit PHYSICIAN SJ LERNER [facility] Work Phone: Start: 09-25-2022 End: 09-25-2022 ambulatory Viet Welch Other [employer] [facility] [employer] Other Start: 09-25-2022 Office outpatient visit 15 minutes Viet Welch [facility] Start: 09-06-2022 End: 09-06-2022 Emergency department patient visit Wil Chandra [facility] Start: 08-14-2022 End: 08-14-2022 Emergency department patient visit Bob Llanos [facility] Start: 07-11-2022 End: 07-11-2022 ambulatory ROSEANN CORRAL Facility:[facility] Start: 06-24-2022 End: 06-24-2022 ambulatory Viet Welch Other [employer] Other Start: 06-24-2022 Office outpatient visit 15 minutes Viet Welch [facility] Start: 01-11-2022 End: 01-11-[address] EZEQUIEL CURTIS Facility:[facility] Start: 01-07-2022 End: 01-09-2022 Evaluation and management of inpatient DR RENATA GEORGES Facility:[facility] Start: 12-29-2021 End: 12-29-[address] JUVENAL THORPE Facility:[facility] Start: 12-19-2021 End: 12-19-[address] JUVENAL THORPE Facility:[facility] Start: 12-12-2021 End: 12-13-[address] [facility] Start: 12-12-2021 End: 12-12-2021 Subsequent hospital visit by physician [facility] Start: 11-27-2021 End: 11-27-[address] SOFIA KABA Facility:[facility] Start: 11-13-2021 End: 11-13-2021 ambulatory Michael Oneil Other [employer] Other Start: 11-13-2021 Office outpatient visit 15 minutes Michael Oneil [facility] Start: 11-06-2021 End: 11-06-2021 ambulatory Kendra Witt Other [employer] Other Start: 11-06-2021 Office outpatient visit 25 minutes Kendra Witt [facility] Start: 10-23-2021 End: 10-24-2021 ambulatory [...] identified in Urine by Culture Urine Culture [facility] Start: 02-07-2022 Influenza vaccination Flu vaccine (# 1) [facility] Start: 01-09-2022 End: 01-09-2022 Patient encounter procedure 01/09/2022 Routine Perinatology [facility] Start: 01-02-2022 End: 01-02-2022 Patient encounter procedure 01/02/2022 Routine Perinatology [facility] Start: 12-26-2021 End: 12-26-2021 Patient encounter procedure 12/26/2021 Routine Perinatology [facility] Start: 12-20-2021 End: 12-20-2021 Patient encounter procedure 12/20/2021 Routine Perinatology [facility] Start: 2021 DTaP/Tdap/Td vaccine (1 - Tdap) DTaP/Tdap/Td vaccine (1 - Tdap) [facility] Start: 2020 Hepatitis C screening Hepatitis C sc reen [facility] Start: 2018 Screening for Chlamy nazanin trachomatis Chlamydia screen [facility] Start: 2017 HIV screening HIV screen [facility] Start: 2014 Depression Monitoring Depression Mon itoring [facility] Start: 2013 HPV vaccine (1 - 2-d ose series) HPV vaccine (1 - 2-dose series) [facility] [facility] Start: 09-16-2007 COVID-19 Vaccine (1) COVID-19 Vaccin e (1) [employer] Start: 09-16-2003 Varicella vaccine (1 of 2 - 2-dose childhood series) Varicella vaccine (1 of 2 - 2-dose childhood series) [facility] Patient Education Depression, Adult ED [facility] Work Phone: Patient referral [facility] Work Phone: End: 12-12-2021 Sjogrens syndrome-A extractable nuclear antibody [employer] [facility] Work Phone: Comment on above: Once for 1 Occurrenc es starting 12/12/2021 until 12/12/2021 End: 12-12-2021 Sjogrens syndrome-B extractable nuclear antibody [facility] Work Phone: Comment on above: Once for 1 Occurrenc es starting 12/12/2021 until 12/12/2021 Immunizations Immunization Date Immunization Notes Care Provider Simona galarza NEGATED: Highlighted row has not occurred!11-05-2019 influenza, injectable, quadrivalent, contains preservative Kendra Witt Other [employer] Other NEGATED: Highlighted row has not occurred!04-10-2019 influenza virus vaccine, unspecified formulation Bob Llanos [facility] Payers Date Payer Category Payer Self-pay [id number] 2002 Unknown [id number] 2.16. [id number] 2002 Unknown [id number] 2.16.84 0.1.033081.3.579.2.593 2002 Unknown [id number] 2.16.84 0.1.824848.3.579.2.593 2002 Unknown [id number] 2.16.84 0.1.988379.3.579.2.593 2002 Unknown [id number] 2.16.84 0.1.354200.3.579.2.593 2002 Unknown [id number] 2.16.84 0.1.322003.3.579.2.593 2002 Unknown [id number] 2.16.84 0.1.947449.3.579.2.593 2002 Unknown [id number] 2.16.84 0.1.676236.3.579.2.593 2002 Unknown [id number] 2.16.84 0.1.001147.3.579.2.593 2002 Unknown [id number] 2.16.84 0.1.764843.3.579.2.593 2002 Unknown [id number] 2.16.84 0.1.982825.3.579.2.593 2002 Unknown [id number] 2.16.84 0.1.343337.3.579.2.593 2002 Unknown [id number] 2.16.8 40.1.116448.3.579.2.1286 2002 Unknown [id number] 2.16.8 40.1.865879.3.579.2.1286 2002 Unknown [id number] 2.16.8 40.1.415756.3.579.2.1286 2002 Unknown [id number] 2.16.84 0.1.203130.3.579.2.1259 2002 Unknown [id number] 2.16.84 0.1.944523.3.579.2.1259 2002 Unknown [id number] 2.16.84 0.1.941702.3.579.2.1259 2002 Unknown [id number] 2.16.84 0.1.997670.3.579.2.1259 2002 Unknown [id number] 2.16.84 0.1.653916.3.579.2.1259 2002 Unknown [id number] 2.16.84 0.1.708214.3.579.2.1259 2002 Unknown [id number] 2.16.8 40.1.449974.3.579.2.727 2002 Unknown [id number] 2.16.8 40.1.537587.3.579.2.727 2002 Unknown [id number] 2.16.8 40.1.075305.3.579.2.727 2002 Unknown [id number] 2.16.8 40.1.539180.3.579.2.727 2002 Unknown [id number] 2.16.8 40.1.203050.3.579.2.727 1959 Unknown [id number] 2.1 6.840.1.714832.19 1959 Unknown [id number] Unknown [id number] 2.16.8 40.1.488471.3.579.2.531 Social History Date Type Detail Facility Sex Assigned At [facility] Start: 11-28-2021 Tobacco smoking stat [facility] Never smoked tobacco [employer] Phone: Start: 11-28-2021 Tobacco use and exposure Smokeless tobacco non-user [employer] Phone: Start: 12-12-2021 Alcohol intake Ex-drinker (finding) [employer] Phone: Start: 12-12-2021 Tobacco Comment no longer vapes [employer] Phone: Start: 04-21-2021 [employer] Phone: Start: 2002 Sex Assigned At Not on file B ON [employer] Phone: Tobacco Current vaping o r e-cigarette use Smokeless Tobacco Use:. Vaping [facility] Tobacco smoking status No Smokin g Status Entered [facility] Start: 10-02-2022 Tobacco smoking stat us NHIS Smoker (finding) [facility] Start: 2002 Sex Assigned At Female [facility] Functional Status Date Assessment Result Facility 02-03-2024 Functional Status N/A [facility] 09-23-2023 Functional Status N/A [facility] 08-27-2023 Functional Status N/A [facility] 01-03-2023 Functional Status N/A [facility] 09-06-2022 Functional Status N/A [facility] 08-14-2022 Functional Status N/A [facility] Clinical Notes 11-06-2021 to 02-03-2024 Note Date & Type Note Facility 02-03-2024 Evaluation + Plan note Extrac ruby from: Title:ED Note Author:Duc Swanson PA-C te:02/03/24 Sore throat (J02.9: Acute ph aryngitis, unspecified) Viral URI (J06.9: Acute upper respiratory infection, unspecified) Orders: Group A Strep by PCR Rapid Strep w/rfx Diagnostic Tests Pending * Group A Strep by PCR 02/03/24 [facility] 08-27-2024 Hospital Discharge instructions Patient Education [...] medicines to help relieve symptoms, such as: Sfyp-wbo-ygakwmw cold medicines. Cough suppressants. Coughing is a [...] and other clear broths. General instructions Take wmpw-nbc-jprkcpz and prescription medicines only as told by [...] and water are not available, use hand [employer]. Avoid touching your mouth, face, eyes, or [...] provider. Document Revised: 12/26/2021 Document Reviewed: 12/26/2021 ElsePAYMEY Patient Education 2022 foodjunky. Follow Up Care 02/03/2024 09:23:13 With:Juvenal THORPE Address: [address] , [place] [address]- Business (1) When:02/06/2024 11:12:27 With:SELAM HUNTER Address: [place] [address]- Business (1) When:02/06/2024 11:12:21 [facility] 08-27-2024 NoteED Patient Education Note Infectious Disease [...] to help relieve symptoms, such as: ? Evde-rbg-jpfypcj cold medicines. ? Cough suppressants. Coughing is [...] other clear broths. General instructions ? Take egdo-iry-zdgcokm and prescription medicines only as told by [...] soap and water are not available,use hand [employer]. ? Avoid touching your mouth, face, eyes, [...] Mood. These symptoms m (more content not included)...[facility] 09-23-2023 Hospital Discharge instructions Patient Education [...] provider. Document Revised: 02/19/2021 Document Reviewed: 02/19/2021 [employer] Patient Education 2022 [email or web address]. Follow Up Care 09/23/2023 09:11:45 With:Juvenal THORPE Address: [address] [place] [address]- Business (1) When:09/26/2023 11:44:07 [facility]03-20-2024 Hospital Discharge instructions Patient Education 08/27/2023 [...] provider. Document Revised: 01/09/2022 Document Reviewed: 01/09/2022 [employer] Patient Education 2022 [email or web address]. 08/27/2023 12:34:16 Urinary Tract Infection, Adult, Mjvf-lr-Awlx Urinary Tract Infection, Adult A urinary tract [...] Follow these instructions at home: Medicines Take dhdv-gzj-hxviwfg and prescription medicines only as told by [...] provider. Document Revised: 01/05/2021 Document Reviewed: 01/05/2021 [employer] Patient Education 2022 [employer] 08/27/2023 12:34:16 Subchorionic Hematoma Subchorionic Hematoma [...] provider. Document Revised: 02/19/2021 Document Reviewed: 02/19/2021 [employer] Patient Education 2022 foodjunky. Follow Up Care 08/27/2023 09:39:16 With:Juvenal THORPE Address: [address] , [place] [address] Business (1) When:08/30/2023 12:05:10 With:SELAM HUNTER Address: [facility] [place] [address] Business (1) When:Within 3 Day(s) [facility]03-20-2024 Evaluation + Plan noteExtracted from: Title:ED [...] day(s), # 28 cap(s), Refills(s) 0, Pharmacy: [facility], 170, cm, 08/27/23 9:49:00 EDT, Height/Length Dosing, 78.7, kg, 08/27/23 9:49:00 EDT, Weight Dosing ABO/Rh Basic Metabolic Panel Beta hCG Quantitative CBC w/ Auto Diff eGFR Extra Blue Tube Extra SST Tube UA with Cult Rflx Urine Culture US 1st Trimester US Transvaginal Diagnostic Tests Pending * Urine Culture 08/27/23 [facility]07-29-2023 Hospital Discharge instructions Patient Education 01/04/2023 00:13:01 Pharyngitis, Zhkf-au-Nrvq Pharyngitis Pharyngitis is a sore throat (pharynx). [...] Follow these instructions at home: Medicines Take bwiw-eyr-tleeqnw and prescription medicines only as told by [...] and water are not available, use hand [employer] marketing. Do not touch your eyes, nose, or [...] provider. Document Revised: 08/22/2021 Document Reviewed: 08/22/2021 [employer] Patient Education 2022 [email or web address]. Follow Up Care 01/03/2023 22:32:55 With:Thony Carl Address: [address] [place] [address] [place] [address] [facility] (1) When:01/06/2023 Comments:Follow-up with your primary care provider in 3 to 5 days. If symptoms worsen, do not improve, or new symptoms arise please report back to emergency department for further evaluation. [facility]07-28-2023 Evaluation + Plan noteExtracted from: Title:ED [...] q12hr, # 20 cap(s), Refills(s) 0, [facility], cm, 01/03/23 22:44:00 EDT, Height/Length Dosing, 75.3, kg, 01/03/23 22:44:00 EDT, Weight Dosing ondansetron, 4 mg = 1 tab(s), Oral, q8hr, PRN Nausea/Vomiting, # 12 tab(s), Refills(s) 0, [facility], 170, cm, 01/03/23 22:44:00 EDT, Height/Length Dosing, 75.3, kg, 01/03/23 22:44:00 EDT, Weight Dosing ondansetron, 12 mg = 3 tab(s), Tab-Dis, Oral, Once, Stop date 01/03/23 23:45:00 EDT, STAT, Start date 01/03/23 23:45:00 EDT, 01/03/23 23:45:00 EDT Automated Diff Basic Metabolic Panel Beta hCG Quantitative CBC w/ Auto Diff eGFR Hepatic Function Panel Lipase Level [facility]04-19-2023 Evaluation note* Encounter Date Diagnosis Assessment [...] of symptoms occur by end of treatment. [employer] Other 03-31-2023 Hospital Discharge instructions Patient Education [...] Follow these instructions at home: Medicines Take wwgm-rit-dzvzmyk and prescription medicines only as told by [...] important. Where to find more information [employer]: www.acog.org [place] [...] Document Reviewed: 07/01/2017 Elsevier Patient Education 2019 [employer] ([employer] Follow Up Care 09/06/2022 10:42:16 With:Juvenal THORPE Address: [address] , [place] [address]- Business (1) When:09/09/2022 13:46:05 [facility]03-09-2023 Hospital Discharge instructions Patient Education 08/14/2022 22:12:46 Abdominal Pain During , Yrkg-ul-Ewrr Abdominal Pain During Belly (abdominal) pain is [...] keep your pee (urine) pale yellow. Take yabn-jkc-obkvwre and prescription medicines only as told by [...] Document Reviewed: 08/28/2017 Elsevier Patient Education 2020 [employer] ([employer] Inc[employer] 08/14/2022 22:12:46 Abdominal Pain, Adult, Auls-yq-Wvme Abdominal Pain, Adult Many things can cause belly (abdominal) pain. Most times, belly pain is not dangerous. Many cases of belly pain can be watched and treated at home. Sometimes, though, belly pain is serious. Your doctor will try to find the cause of your belly pain. Follow these instructions at home: Medicines Take nvfi-bxo-kmqqact and prescription medicines only as told by [...] your belly pain for any changes. Take znct-fos-faqigng and prescription medicines only as told by [...] Document Reviewed: 10/04/2019 Elsevier Patient Education 2020 [email or web address]. Follow Up Care 08/14/2022 18:41:38 With:Juvenal THORPE Address: [address] , [place] [address]- Business (1) When:08/17/2022 Comments:Follow-up with Dr. Thorpe for further evaluation of your . With:Juventino Carbajal Address: [address] [place] [address]- When:08/17/2022 Comments:Follow-up with your primary care provider in 3 to 5 days. If symptoms worsen, do not improve, or new symptoms arise please report back to emergency department for further evaluation. [facility]01-16-2023 Evaluation note* Encounter Date Diagnosis Assessment [...] return precautions. Jun, Cough (ICD-10 - R05.9) [employer] Other 06-07-2022 Evaluation note* Encounter Date Diagnosis [...] Pt understood and agreed to tx plan. [employer] Other 05-31-2022 Evaluation note* Encounter Date Diagnosis [...] condition October, Sore throat (ICD-10 - J02.9) [employer] Other Evaluation + Plan note No data available for this section [facility] information available [facility] Work Phone: Evaluation noteNo InformationN[facility]Washington [facility] [employer] Other History general Narrative - Reported* Type Description Date Medical History fx lt elbow at age 7 Surgical History surgical repair of left elbow f racture at age 7 Hospitalization History see surgical hx [place] [employer] Other Progress note No data available for this section [facility] Summary Purpose Family History No Family [...] section and content) DATE CREATED AUTHOR 01/05/2022 [facility] DATE CREATED AUTHOR AUTHOR'S ORGANIZ ATION 07/15/2022 [facility] [facility] DATE CREATED AUTHOR AUTHOR'S ORGANIZ ATION 10/10/2022 [facility] DATE CREATED AUTHOR AUTHOR'S ORGANIZ ATION 12/26/2023 [facility] DATE CREATED AUTHOR AUTHOR'S ORGANIZ ATION 01/27/2024 [facility] DATE CREATED AUTHOR AUTHOR'S ORGANIZ ATION 02/05/2024 [facility] DATE CREATED AUTHOR AUTHOR'S ORGANIZ ATION 02/06/2024 [facility] Care Teams (unrecognized sec tion and content) Personnel Name: SELAM HUNTER CNP Address: Address: [address] [place] [address] Team Status: Active Member Role Status Dates [...] BE BASED ON THE PRIMARY CLINICAL RECORDS. [facility] [employer] [facility]. provides no warranty or guarantee of the accuracy or completeness of information in this document.
--- NOTE | 2024-02-10 15:03 | US_ITS ---
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 TECHNIQUE: Ultrasound biophysical profile was performed in the radiology department. BREATHING MOVEMENTS: 2 GROSS BODY MOVEMENTS: 2 TONE: 2 QUALITATIVE AMNIOTIC FLUID VOLUME: 2 PRESENTATION: CEPHALIC HEART RATE: 150.84 bpm AMNIOTIC FLUID VOLUME: 12.00 cm GESTATIONAL AGE: 30 weeks 5 days US/US OB BPP w non-stress IMPRESSION: Total biophysical profile score: 8 Electronically authenticated by: MARS FRANKEL Date: 02/11/2024 05:50
--- NOTE | 2024-02-10 15:05 | US_ITS ---
[address] [address] Patient Name: KAILYN ACKERMAN MRN: [id number] date: 2000 Sex: F Assigned Patient Location: [facility] Current Patient Location: Accession/Order Number: [id number] Exam Date: 02/10/2024 15:09 Report Date: 02/11/2024 05:52 At the request of: VAL ANG Procedure: US OB growth EXAMINATION: US OB growth HISTORY: 24 WEEKS GESTATION OF Z3A.24 COMPARISON: Ultrasound OB growth 01/12/2024 FINDINGS: Heart Rate: 150.84 bpm Amniotic Fluid Volume: 12.0 cm; normal range Number: 1 Position: CEPHALIC BIOMETRY: BPD: 7.83 cm; 31 weeks 3 days; 61.70 % HC: 29.77 cm; 33 weeks 0 days; 76.40 % AC: 24.93 cm; 29 weeks 1 day; 8.90 % FL: 5.47 cm; 28 weeks 6 days; 4 % EFW: 1418.57 g; 9.90 % FL/AC: 21.95 FL/BPD: 69.85 HC/AC: 1.19 GESTATIONAL AGE: Age by EDC: 30 weeks 5 days NOY by EDC: 2024-04-15 Age by US: 30 weeks 4 days NOY by US: 2024-04-16 US/US OB growth IMPRESSION: 1. Single live intrauterine with growth detailed above. 2. Femur length is 4th percentile. Estimated weight is at 10th percentile. Electronically authenticated by: MARS FRANKEL Date: 02/11/2024 05:52
[2024-02-10 15:59] VITALS: BP 98/52; PULSE 66
== END 2024-02-10 16:35 | disposition home or self-care (01) ==
LOC: US 07:11 → FBC 15:00
PROVIDERS: Visit Provider Obstetrics & Gynecology
DX: O43.119 Circumvallate placenta, unspecified trimester (principal); Z3A.24 24 weeks gestation of pregnancy
CPT/HCPCS: 76816; 76818

== ENCOUNTER 2024-02-16 07:05 | Outpatient (OUT) | payer OTHER, SELFPAY ==
--- OUTSIDE RECORDS SUMMARY | 2024-02-16 07:08 | XMS_ITS | CCD ---
Author Organization [facility] Care Team Providers Care Helper Electrical Name Role Phone Kendra Witt Unavailable Michael [...] Admitting Unavailable KARASIK, DR YANEZ Consulting Unavailable [facility] Primary Care Unavailable KARASIK, DR YANEZ Attending Unavailable KARASIK, DR YANEZ Admitting Unavailable ZIEBER, DR MARS Mccarthy Consulting Unavailable [place], DR SOFIA Hull Consulting Unavailable REQUEST, NONE [...] Mills Unavailable SELAM HUNTER Primary Care Physician [phone] JUVENAL THORPE Referring Unavailable JUANITO PABLO Attending [...] Medication Allergies] Propensity to adverse reactions (disorder) [facility] Repository Medications Current Medications Medication Drug [...] day(s), # 28 cap(s), Refills(s) 0, Pharmacy: [facility], 170, cm, 08/27/23 9:49:00 EDT, Height/Length Dosing, 78.7, kg, 08/27/23 9:49:00 EDT, Weight Dosing Start Date: 08/27/23 Stop Date: 09/03/23 Status: Ordered Start: 01-03-2023 take 1 capsule by [facility] every twelve hours Keflex 500 mg Cap 500 mg = 1 cap(s), Oral, q12hr, # 20 cap(s), Refills(s) 0, Pharmacy: [facility], 170, cm, 01/03/23 22:44:00 EDT, Height/Length Dosing, 75.3, kg, 01/03/23 22:44:00 EDT, Weight Dosing Start Date: 01/03/23 Status: Ordered Citalopram (2 sources) Serotonin Reuptake Inhibitor Citalopram Hydrobromide Active dexamethasone 1 mg/ml / neomycin 3.5 mg/ml / polymyxin b 98162 unt/ml ophthalmic suspension (2 sources) Aminoglycoside Antibacterial, Polymyxin-class Antibacterial, Corticosteroid Start: 09-26-19 take 1 drop(s) into the eye(s) four times daily Maxitrol 3.5-23661-6.1 1 drop into affected eye Ophthalmic Four [...] 3 hrs for 2 days Jun, Active Hersey (No Known Home Meds) (1 source) Start: 06-26-2021 Hersey (No Known Home Meds) Active June 26, [...] Nausea/Vomiting, # 12 tab(s), Refills(s) 0, Pharmacy: [facility] 1985, 170, cm, 01/03/23 22:44:00 EDT, Height/Length Dosing, 75.3, kg, 01/03/23 22:44:00 EDT, Weight Dosing Start Date: 01/03/23 Status: Ordered Start: 06-09-2019 take 1 tablet by faby th three times daily Zofran ODT 4 mg Tab-Dis 4 mg = 1 tab(s), Oral, TID, # 15 tab(s), Refills(s) 0, Pharmacy: [facility] Start Date: 06/09/19 Status: [...] take 450 mg by mouth twice daily [place] Carbonate Discontinued 450 MG PO Twice daily [...] Grp A Strp Intrl Ctrl Pass Normal [facility] Comment on above: Order Comment: Order Added on by Discern Rule. Performed By: #### 1 [id number] #### [facility] [address] [place] [address] S. pyogenes DNA ALFREDO+probe Ql (Throat) Negative Normal [facility] Comment on above: Order Comment: Order Added on by Discern Rule. Result Comment: Test ing performed using DNA amplification. Performed By: #### 1 [id number] #### [facility] [address] [place] [address] ED Clinical Summaryon 2023 ED Clinical Summary ED Clinical Summary [address] [address] ED Clinical Summary Person Information Name: KAILYN ACKERMAN [facility] Age: 23 Years : 2000 Sex: Female Language: St Helenian PCP: SELAM HUNTER CNP Marital Status: Single Phone: [phone] MRN: [id number] Visit Id: Visit Reason: Headache; [...] 11:17:23 02/03/2024 11:17:23 02/03/2024 11:17:23 ADDRESS: [address] [place] [phone] PHYS DOC NOTES: MEDICAL INFORMATION: Prescriptions Given: [...] Follow up: With: Address: When: Juvenal THORPE [facility], [address] [place] [address] [place] [address] Business (1) In 3 days 02/06/2024 With: Address: When: [place] [address] Business (1) In 3 days 02/06/2024 DIAGNOSIS: Sore throat; Viral URI Normal [facility] ED Note-Physicianon 02-03-20 ED Note-Physician ED [...] URI and will continue to follow-up with RAILROAD SIGNAL AND SWITCH OPERATOR for further evaluation and management. We discussed [...] days 02/06/2024 (more content not included)... Normal [facility] Comment on above: Result Comment: Elec tronically Signed By: Duc Swanson PA-C\.br\Date and Time Signed: 02/03/24 13:23 EDT\.br\Electronically Co-Signed By: Siva Schulte DO\.br\Date and Time Co-Signed: 02/03/24 14:44 EDT ED Patient Summaryon 024 ED Patient Summary ED Patient Summary [place] [address] Patient Discharge Instructions Person Information Name: KAILYN ACKERMAN Age: 23 Years Arrival Date: 02/03/2024 09:21:41 Discharge Diagnosis: Sore throat; Viral URI Primary Care Physician: SELAM HUNTER CNP Provider Information Primary Provider: Siva Schulte DO Advanced Ict Business Analyst:Duc Swanson PA-C The exam and treatment you received in the Emergency Department were for an urgent problem and are not intended as complete care. It is important that you follow up with a doctor, nurse practitioner, or physician?s retail loan originator assistant for ongoing care. If your symptoms [...] Follow-up Instructions: With: Address: When: Juvenal THORPE [facility], [address] [place] [address] [place] [address] Business (1) In 3 days 02/06/2024 With: Address: When: SELAM HUNTER [address] [place], [place] [address] [address] Business (1) In 3 days 02/06/2024 In the event that this physician does not participate in your insurance network, please consult with your insurance company to find a nearby participating provider. Patient Education Materials: Upper Respiratory Infection, Adult A MESSAGE TO ALL PATIENTS REGARDING OPIOIDS PRESCRIPTION OPIOIDS: WHAT YOU NEED TO KNOW Prescription opioids can be used to help relieve hdfqekxn-tk-czdgcv pain and are often prescribed following a [...] of op (more content not included)... Normal [facility] MICRO OTHER TESTSOrdered By: Nita Delgadillo on 02-03-2024 S. pyogenes Ag IA.rapid Ql (Throat) Negative (02/03/24 11:07 AM) Normal Negative [facility] MICRO OTHER TESTSOrdered By: Asuncion Goncalves on 02-03-2024 Rapid COV Int NEG Ctl Pass (02/03/24 9:30 AM) Normal [facility] Rapid COV Int POS Ctl Pass (02/03/24 9:30 AM) Normal [facility] SARS-CoV+SARS-CoV-2 (COVID-19) Ag IA.rapid Ql (Resp) Not Detected 1 (02/03/24 9:30 AM) Normal Not Detected [facility] Comment on above: Interpretive Data: [employer]ato multani Up [employer] Net Veritor System for Rapid Detection of SARS-CoV-2 [...] COV Int NEG Ctl Pass Normal [facility] Comment on above: Performed By: #### 2 [id number] #### [facility] [address] [place] [address] Rapid COV Int POS Ctl Pass Normal [facility] Comment on above: Performed By: #### 2 [id number] #### [facility] [address] [place] [address] SARS-CoV+SARS-CoV-2 (COVID-19) Ag IA.rapid Ql (Resp) Not detected Normal Not Detected [facility] Comment on above: Result Comment: The Up & Net Veritor? System for Rapid Detection of SARS-CoV-2 [...] other viruses or pathogens; and, in the [facility], this test is only authorized for the duration of the declaration that circumstances exist justifying the authorization of emergency use of in vitro diagnostics for detection and/or diagnosis of the virus that causes COVID-19 under Section 564(b)(1) of the Act, 21 U.S.C. ? 360bbb-3(b)(1), unless the authorization is terminated or revoked sooner. Performed By: #### 2 [id number] #### [facility] [address] [place] [address] Rapid Strep w/rfxon 02-03-20 24 S. pyogenes Ag IA.rapid Ql (Throat) Negative Normal Negative [facility] Comment on above: Performed By: #### 2 [id number] #### [facility] [address] [place] [address] ED Note-Physicianon 09-26-19 24 ED Note-Physician Basic [...] than 90,000. Ultrasound was obtained discussed with graphic technician. Intrauterine consistent with stated gestational age. Stable heart rate. Patient continues to demonstrate subchorionic hematoma. Also left-sided ovarian cyst similar to previous. Results were discussed with the patient. She is discharged home to continue pelvic rest and follow-up with RAILROAD SIGNAL AND SWITCH OPERATOR. Patient was encouraged to return to the [...] THORPE In 3 days 09/26/[address] , [place] [address]- Business (1) Additional Instructions: Patient Education Subchorionic [...] made to ensure accuracy, however, inadvertently computerized feed weigher mistakes may be present. Appropriate healthcare PPE [...] Yes., 04/10/2019 Lab Results Beta hCG Qnt: 81811 mIU/mL High (09/23/23 09:28:00) Diagnostic Results No qualifying data available. Normal [facility] Comment on above: Result Comment: Elec tronically Signed By: Mandie CHUNG, Venkat\.br\Date and Time Signed: 09/23/23 11:45 EDT\.br\Electronically Co-Signed By: Wil Chandra DO\.br\Date and Time Co-Signed: 09/26/23 07:37 EDT [facility]20[place] [address] m[IU]/mL High 1-3 F [facility] Comment on above: Result Comment: 'F N ON < 1 - 3' ' 0.2 - 1 WEEK = 5 TO 50' ' 1 - 2 WEEKS = 50 - 500' ' 2 - 3 WEEKS = 100 - 5000' ' 3 - 4 WEEKS = 500 - 22143' ' 4 - 5 WEEKS = 1000 - 50914' ' 5 - 6 WEEKS = 37930 - 214487' ' 6 - 8 WEEKS = 88404 - 893609' ' 8 - 12 WEEKS = 36802 - 816490' Performed By: #### 2 [id number] ####[place] [address] [place] [address] CHEMISTRYOrdered By: SYSTEM SYSTEM on 09-23-2023 [place] [address] m[IU]/mL High 1 - 3 mIU/mL [facility] Comment on above: Result Comment: 'F N ON < 1 - 3' ' 0.2 - 1 WEEK = 5 TO 50' ' 1 - 2 WEEKS = 50 - 500' ' 2 - 3 WEEKS = 100 - 5000' ' 3 - 4 WEEKS = 500 - 20777' ' 4 - 5 WEEKS = 1000 - 22734' ' 5 - 6 WEEKS = 06632 - 877618' ' 6 - 8 WEEKS = 62917 - 662073' ' 8 - 12 WEEKS = 25506 - 037885' Consent for Treatmenton 09-07 Consent for Treatment [id number]#1.00TIFF Normal [facility] Discharge Instructionson Discharge Instructions [id number]#[id number] Normal [facility] ED Clinical Summaryon 2023 ED Clinical Summary [address] [address] ED Clinical Summary Person Information Name: KAILYN ACKERMAN [place] Age: 23 Years : 2000 Sex: Female Language: St Helenian PCP: NONE, XXXX Marital Status: Single Phone: [phone] MRN: Visit Id: Visit Reason: Back pain; [...] 11:52:16 09/23/2023 11:52:16 09/23/2023 11:52:16 ADDRESS: [address] [place] [phone] PHYS DOC NOTES: MEDICAL INFORMATION: Prescriptions Given: [...] Follow up: With: Address: When: Juvenal MIRI [facility], [address] [place] [address] [place] [address] Business (1) In 3 days 09/26/2023 DIAGNOSIS: Other antepartum hemorrhage, unspecified trimester; Subchorionic bleed; Vaginal bleeding in Normal [facility] ED Patient Education Noteon 09-23-2023 ED [...] provider. Document Revised: 02/19/2021 Document Reviewed: 02/19/2021 [employer] Patient Education ? 2022 [employer] Normal [facility] ED Patient Summaryon 024 ED Patient Summary [address] [address] Patient Discharge Instructions Person Information Name: TYRON KAILYN Gordon Age: 23 Years Arrival Date: 09/23/2023 09:10:07 Discharge Diagnosis: Other antepartum hemorrhage, unspecified trimester; Subchorionic bleed; Vaginal bleeding in Primary Care Physician: NONE, XXXX Provider Information Primary Provider: Wil Chandra DO Advanced Ict Business Analyst:Venkat Leal PA-C The exam and treatment you received in the Emergency Department were for an urgent problem and are not intended as complete care. It is important that you follow up with a doctor, nurse practitioner, or physician?s retail loan originator assistant for ongoing care. If your symptoms [...] Follow-up Instructions: With: Address: When: Juvenal THORPE [facility], [address] [place] [address] , [place] [address] Business (1) In 3 days 09/26/2023 In the event that this physician does not participate in your insurance network, please consult with your insurance company to find a nearby participating provider. Patient Education Materials: Subchorionic Hematoma A MESSAGE TO ALL PATIENTS REGARDING OPIOIDS PRESCRIPTION OPIOIDS: WHAT YOU NEED TO KNOW Prescription opioids can be used to help relieve mrxhiums-az-sdsgdr pain and are often prescribed following a [...] health care p (more content not included)... [facility] Prescriptions/Work Noteson 0 09-23-2023 Prescriptions/Work Notes [id number] [facility] US 1st Trimesteron 09-23-2023 US [...] least 66% of the gestational sac circumference. Edmond Rump Length: 3.2 cm, which corresponds Composite [...] Size = Dates Uterus Position Anteverted Normal [facility] C Urineon 08-29-2023 Bacteria identified Cx [...] Locations R1: This test was performed at: [facility], [address] [place] [address], [address] , , Normal [facility] Comment on above: Performed By: #### 4 [id number] ####[facility] [address] [place] [address] ABO/Rhon 08-27-2023 ABO/Rh Positive Invalid Interpretation Code [facility] Comment on above: Performed By: #### 2 [id number] ####[facility] [address] [place] [address] BLOOD BANKOrdered By: Liza Xavier on 08-27-2023 ABO/Rh Interp Positive Invalid Interpretation Code [facility] BB Subsection BMPon 08-27-2023 Anion gap [Moles/Vol] 11 mmol/L Normal 6-16 [facility] Comment on above: Performed By: #### 1 [id number], [id number], [id number] ####[facility] [address] [place] [address] Calcium [Mass/Vol] 9.3 mg/dL Normal 8.9-11.1 [facility] Comment on above: Performed By: #### 1 [id number], 5730572, 5678228 ####[facility] [address] [place] [address] Chloride [Moles/Vol] 104 mmol/L Normal 101-111 [facility] Comment on above: Performed By: #### 1 1392211, 0428362, 6364501 ####[facility] [address] [place] [address] CO2 [Moles/Vol] 24 mmol/L Normal 21-31 [facility] Comment on above: Performed By: #### 1 [id number], 0726333, 9262091 ####[facility] [address] [place] [address] Creatinine [Mass/Vol] 0.6 mg/dL Normal 0.5-1.3 [facility] Comment on above: Performed By: #### 1 [id number], 6379288, 3908410 ####[facility] [address] [place] [address] Glucose [Mass/Vol] 87 mg/dL Normal 55-199 [facility] Comment on above: Performed By: #### 1 [id number], 2540795, 9867557 ####[facility] [address] [place] [address] Potassium [Moles/Vol] 3.7 mmol/L Normal 3.5-5.3 [facility] Comment on above: Performed By: #### 1 4584309, 7796567, 6094559 ####[facility] [address] [place] [address] Sodium [Moles/Vol] 135 mmol/L Normal 135-145 [facility] Comment on above: Performed By: #### 1 4515885, 0656811, 2348124 ####[facility] [address] [place] [address] Urea nitrogen [Mass/Vol] 8 mg/dL Normal 5-21 [facility] Comment on above: Performed By: #### 1 7333270, 6849423, 4484474 ####[address] [address] Urea nitrogen/Creatinine [Mass ratio] 13 No Units Normal 10-20 [facility] Comment on above: Performed By: #### 1 5971615, 8634229, 9312890 ####[address] [address] BhCG Quanton 08-27-2023 [place] [address] m[IU]/mL High 1-3 F [facility] Comment on above: Result Comment: 'F N ON < 1 - 3' ' 0.2 - 1 WEEK = 5 TO 50' ' 1 - 2 WEEKS = 50 - 500' ' 2 - 3 WEEKS = 100 - 5000' ' 3 - 4 WEEKS = 500 - 29530' ' 4 - 5 WEEKS = 1000 - 55319' ' 5 - 6 WEEKS = 94252 - 110567' ' 6 - 8 WEEKS = 64970 - 581130' ' 8 - 12 WEEKS = 55915 - 023802' Performed By: #### 2 [id number] ####[facility] [address] [place] [address] CBC w/ Auto Diffon 4 Basophils/100 WBC (Bld) 0.6 % Normal 0.0-2.0 F [facility] Comment on above: Performed By: #### 1 [id number], 0691921, 4543899 ####[facility] [address] [place] [address] Basophils/Leukocytes Auto (Bld) [Pure # fraction] 0.0 E9/L Normal 0.0-0.2 [facility] Comment on above: Performed By: #### 1 0513418, 1830557, 1901309 ####[address] [address] Eosinophils (Bld) [#/Vol] 0.1 E9/L Normal 0.0-0.5 [facility] Comment on above: Performed By: #### 1 7447118, 6048329, 2363710 ####[address] [address] Eosinophils/100 WBC (Bld) 2.0 % Normal 0.0-8.0 [facility] Comment on above: Performed By: #### 1 8725290, 3198753, 6424784 ####[address] [address] Erythrocyte distribution width (RBC) [Ratio] 15.0 % High 10.9-14.2 [facility] Comment on above: Performed By: #### 1 2000773, 9955985, 1584065 ####[address] [address] Hematocrit (Bld) [Volume fraction] 37.4 % Normal 34.0-46.0 [facility] Comment on above: Performed By: #### 1 5157518, 4802603, 0369320 ####[address] [address] Hemoglobin (Bld) [Mass/Vol] 12.7 g/dL Normal 12.0-16.0 [facility] Comment on above: Performed By: #### 1 9089595, 3393238, 5212193 ####[address] [address] Lymphocytes (Bld) [#/Vol] 2.0 E9/L Normal 1.0-4.0 [facility] Comment on above: Performed By: #### 1 4460494, 9156759, 2078491 ####[address] [address] Lymphocytes/100 WBC (Bld) 28.1 % Normal 14.0-50.0 [facility] Comment on above: Performed By: #### 1 3179206, 1666470, 4656827 ####[address] [address] MCH (RBC) [Entitic mass] 28.4 pg Normal 27.0-34.0 [facility] Comment on above: Performed By: #### 1 5610121, 4492749, 1562171 ####[place] [address] MCHC (RBC) [Mass/Vol] 33.8 g/dL Normal 31.4-36.0 [facility] Comment on above: Performed By: #### 1 2039612, 7411510, 1139257 ####[place] [address] MCV (RBC) [Entitic vol] 84.0 fL Normal 80.0-100.0 F [facility] Comment on above: Performed By: #### 1 3240067, 6462328, 0417687 ####[address] [address] Monocytes (Bld) [#/Vol] 0.5 E9/L Normal 0.2-1.0 F [facility] Comment on above: Performed By: #### 1 9393883, 5844669, 5437844 ####[address] [address] Neutrophils (Bld) [#/Vol] 4.5 E9/L Normal 2.0-7.5 [facility] Comment on above: Performed By: #### 1 5214573, 6229404, 6965461 ####[address] [address] Neutrophils/100 WBC (Bld) 61.9 % Normal 36.0-75.0 [facility] Comment on above: Performed By: #### 1 3359707, 5289260, 0055470 ####[address] [address] Platelet mean volume (Bld) [Entitic vol] 7.9 fL Normal 6.4-10.8 [facility] Comment on above: Performed By: #### 1 1071589, 6446752, 9166343 ####[facility] [address] [place] [address] Platelets (Bld) [#/Vol] 252.0 E9/L Normal 150.0-500.0 [facility] Comment on above: Performed By: #### 1 2309584, 6570137, 6739606 ####[facility] [address] [place] [address] RBC (Bld) [#/Vol] 4.5 E12/L Normal 4.3-5.9 [facility] Comment on above: Performed By: #### 1 2577707, 8043120, 9375891 ####[place] [address] [place] [address] WBC corrected for nucl RBC Auto (Bld) [#/Vol] 7.2 E9/L Normal 4.0-11.0 [facility] Comment on above: Performed By: #### 1 8961385, 3812263, 2729109 ####[facility] [address] [place] [address] CHEMISTRYOrdered By: SYSTEM SYSTEM on 08-27-2023 Anion [...] 199 mg/[place] [address] m[IU]/mL High 1 - 3 mIU/mL [facility] Comment on above: Result Comment: 'F N ON < 1 - 3' ' 0.2 - 1 WEEK = 5 TO 50' ' 1 - 2 WEEKS = 50 - 500' ' 2 - 3 WEEKS = 100 - 5000' ' 3 - 4 WEEKS = 500 - 42465' ' 4 - 5 WEEKS = 1000 - 99735' ' 5 - 6 WEEKS = 17417 - 182393' ' 6 - 8 WEEKS = 10818 - 608998' ' 8 - 12 WEEKS = 423[address] - 520020' Potassium [Moles/Vol] 3.7 mmol/L Normal 3.5 - 5.3 mmol/L [facility] Sodium [Moles/Vol] 135 mmol/L Normal 135 - 145 mmol/L [facility] Urea nitrogen [Mass/Vol] 8 mg/dL Normal 5 - 21 mg/d L [facility] Urea nitrogen/Creatinine [Mass ratio] 13 mg/mg Normal 10 - 20 [facility] Consent for Treatmenton 08-08 Consent for Treatment [id number] Normal [facility] Discharge Instructionson Discharge Instructions [id number] Normal [facility] ED Clinical Summaryon 2023 ED Clinical Summary [place] [id number] ED Clinical Summary Person Information Name: KAILYN ACKERMAN [facility] Age: 22 Years : 2000 Sex: Female Language: St Helenian PCP: SELAM HUNTER CNP Marital Status: Single Phone: [phone] MRN: Visit Id: Visit Reason: Vaginal bleeding [...] 12:34:16 08/27/2023 12:34:16 08/27/2023 12:34:16 ADDRESS: [address] [place] [phone] PHYS DOC NOTES: MEDICAL INFORMATION: Prescriptions Given: Medications to Continue Taking That Have Changed [facility], [address] [place], [place] [phone], [phone] START: cephalexin (Keflex 500 mg Cap) 1 [...] Urinary Tract Infection; Urinary Tract Infection, Adult, Yoll-bd-Dqtf; Subchorionic Hematoma Follow up: With: Address: When: Juvenal THORPE [facility], [address] [facility] [place] [address] Business (1) In 3 days 08/30/2023 With: Address: When: SELAM HUNTER [address] [place] [address] Business (1) In 3 days DIAGNOSIS: Other antepartum hemorrhage, unspecified trimester; Subchorionic bleed; UTI (urinary tract infection) during ; Vaginal bleeding in Normal [facility] ED Note-Physicianon 08-27-19 ED Note-Physician Basic [...] Complexity of Problems Differential Diagnosis: [] [facility] Data External documents reviewed: [] My [...] day(s), # 28 cap(s), Refills(s) 0, Pharmacy: [facility], 170, cm, 08/27/23 9:49:00 EDT, Height/Length [...] Juvenal THORPE In 3 days 08/30/[address] , [place] [address]- Business (1) Additional Instructions: SELAM HUNTER In 3 days [facility] [place] [address]- Business (1) Additional Instructions: Patient Education and Urinary Tract Infection Urinary Tract Infection, Adult, Fjim-pb-Snja Subchorionic Hematoma Attestation Patient seen and evaluated by the physician retail loan originator assistant. Attending physician was present in the emergency department and s (more content not included)... Normal [facility] Comment on above: Result Comment: Elec [...] provider. Document Revised: 01/09/2022 Document Reviewed: 01/09/2022 [employer] Patient Education ? 2022 [employer] Urinary Tract Infection, Adult A urinary [...] swelling (inflammation) (more content not included)... Normal [facility] ED Patient Summaryon 024 ED Patient Summary [place] [id number] Patient Discharge Instructions Person Information Name: KAILYN ACKERMAN Age: 22 Years Arrival Date: 08/27/2023 09:37:12 Discharge Diagnosis: Other antepartum hemorrhage, unspecified trimester; Subchorionic bleed; UTI (urinary tract infection) during ; Vaginal bleeding in Primary Care Physician: SELAM HUNTER CNP Provider Information Primary Provider: Emily Harper M.D. Advanced Ict Business Analyst:None The exam and treatment you received in the Emergency Department were for an urgent problem and are not intended as complete care. It is important that you follow up with a doctor, nurse practitioner, or physician?s retail loan originator assistant for ongoing care. If your symptoms become worse or you do not improve as expected and you are unable to reach your usual health care provider, you should return to the Emergency Department. We are available 24 hours a day. KAILYN ACKERMAN has been given the following list of patient education materials, prescriptions and follow-up instructions: Follow-up Instructions: With: Address: When: Juvenal [facility], [address] [place] [address] [place] [phone] Business (1) In 3 days 08/30/2023 With: Address: When: SELAM HUNTER [address] [place] [address] [facility] [place] [phone] Business (1) In 3 days In the event that this physician does not participate in your insurance network, please consult with your insurance company to find a nearby participating provider. Patient Education Materials: and Urinary Tract Infection; Urinary Tract Infection, Adult, Lkqb-co-Wrjp; Subchorionic Hematoma A MESSAGE TO ALL PATIENTS REGARDING OPIOIDS PRESCRIPTION OPIOIDS: WHAT YOU NEED TO KNOW Prescription opioids can be used to help relieve eoopbctg-kn-vvvxbg pain and are often prescribed following a [...] toilet, follo (more content not included)... Normal [facility] HEMATOLOGYOrdered By: SYSTEM SYSTEM on 08-27-2023 [...] Rflxon 08-27-19 Color (U) Light-Yellow Normal Yellow [facility] Comment on above: Result Comment: Micr oscopic readings are only performed on those samples that meet specific criteria set forth by [facility]. Performed By: #### 4 [id number], [id number] ####[place] [address] [place] [address] Glucose (U) [Mass/Vol] Negative Normal Negative Fi [facility] Comment on above: Performed By: #### 4 [id number], [id number] ####[facility] [address] [place] [address] Ketones Ql (U) Negative Normal Negative [facility] Comment on above: Performed By: #### 4 [id number], [id number] ####[facility] [address] [place] [address] UA Blood 3+ Abnormal Negative [facility] Comment on above: Performed By: #### 4 [id number], [id number] ####[facility] [address] [place] [address] UA Bacteria 1+ [id number] Abnormal Trace [facility] Comment on above: Performed By: #### 4 [id number], [id number] ####[facility] [address] [place] [address] UA Clarity Turbid Abnormal Clear [facility] Comment on above: Performed By: #### 4 [id number], [id number] ####[facility] [address] [place] [address] UA Hyal Cast 0-3 Normal 0-3 [facility] Comment on above: Performed By: #### 4 [id number], [id number] ####[facility] [address] [facility] [place] [address] UA Leuk Est 250 Stefania/uL Abnormal Negative [facility] Comment on above: Performed By: #### 4 [id number], [id number] ####[facility] [address] [facility] [place] [address] UA Mucous Trace Normal Negative [facility] Comment on above: Performed By: #### 4 [id number], [id number] ####[facility] [address] [facility] [place] [address] UA Nitrite Negative Normal Negative [facility] Comment on above: Performed By: #### 4 [id number], [id number] ####[facility] [address] [place] [address], [place] [address] UA pH 5.5 Invalid Interpretation Code 5.0-9.0 [facility] Comment on above: Performed By: #### 4 [id number], [id number] ####[facility] [address] [facility] [place] [address] UA Protein 1+ mg/dL Abnormal Negative [facility] Comment on above: Performed By: #### 4 [id number], [id number] ####[facility] [address]of[address] [facility] [place] [address] UA RBC 4-20 Abnormal 0-3 [facility] Comment on above: Performed By: #### 4 [id number], [id number] ####[facility] Eiueeux[address] [facility] [place] [address] UA Spec Grav 1.018 Invalid Interpretation Code 1.005-1.030 [facility] Comment on above: Performed By: #### 4 [id number], [id number] ####[facility] [address] [facility] [place] [address] UA Squam Epithelial 3-4 Abnormal 0-2 [facility] Comment on above: Performed By: #### 4 [id number], [id number] ####[facility] [address] [place] [address] UA Urobilinogen Negative Normal Negative [facility] Comment on above: Performed By: #### 4 [id number], [id number] ####[facility] [address] [place] [address] UA WBC 6-15 Abnormal 0-5 [facility] Comment on above: Performed By: #### 4 [id number], [id number] ####[facility] [address] [place] [address] Urobilinogen (U) [Mass/Vol] Negative Normal Negative [facility] Comment on above: Performed By: #### 4 [id number], [id number] ####[facility] [address] [place] [address] UA Spec Desc Clean Catch Normal [facility] Comment on above: Performed By: #### 4 [id number], [id number] ####[facility] [address] [place] [address] URINALYSISOrdered By: SYSTEM SYSTEM on 08-27-2023 Color (U) Light-Yellow 1 (08/27/23 9:55 AM) Normal Yellow [facility] UA Auto SS Comment on above: Interpretive Data: M icroscopic readings are only performed on those samples that meet specific criteria set forth by [facility]. Glucose (U) [Mass/Vol] Negative Normal [...] Reason for Exam: Other (please specify) Report [facility] [id number] IMPRESSION: Single live intrauterine with estimated sonographic [...] heart rate is measured at 120 bpm. Edmond-rump length 4.77 mm. Estimated sonographic gestational age [...] Transvaginal Ultrasound Performed FHR (bpm) 120 Normal [facility] US Transvaginalon 08-27-2023 US Transvaginal Exam Date/Time: 08/27/2023 11:55 EDT Reason for Exam: Other (please specify) Report [facility] [id number] Please see ultrasound pelvis, for report of transvaginal examination. Ordering Provider: Hudson Riley FINAL REPORT Dictated: 08/27/2023 12:33 pm Zach Deng MD Signed (Electronic Signature): 08/27/2023 12:33 pm Signed by: Zach Deng MD Transcribed by: KIRK Technologist: SHELLEY Normal [facility] eGFRon 08-27-2023 eGFR 131 mL/min/1.73 m2 Normal >=59 [facility] Comment on above: Order Comment: Order added by Discern Expert. Performed By: #### 1 [id number], [id number], [id number] ####[facility] [address] [place] [address] [facility] Quanton 08-19-2023 HCG.beta subunit Qn 4261 m[IU]/mL High 1-3 [facility] Comment on above: Result Comment: 'F N ON < 1 - 3' ' 0.2 - 1 WEEK = 5 TO 50' ' 1 - 2 WEEKS = 50 - 500' ' 2 - 3 WEEKS = 100 - 5000' ' 3 - 4 WEEKS = 500 - 82393' ' 4 - 5 WEEKS = 1000 - 96078' ' 5 - 6 WEEKS = 05988 - 396147' ' 6 - 8 WEEKS = 34431 - 108090' ' 8 - 12 WEEKS = 80772 - 734708' Performed By: #### 2 [id number] ####[facility] [address] [place] [address] Physician Orderon 08-19-2023 Physician Order [id number] Normal [facility] CHEMISTRYOrdered By: Juancho benitez on 01-03-2023 [...] ratio] 12 mg/mg Normal 10 - 20 [facility] Remisol CHEMISTRYOrdered By: SYSTEM SYSTEM on 01-03-2023 GFR/1.73 sq M.predicted among non-blacks MDRD (S/P/Bld) [Vol rate/Area] 108 mL/min/1.73 m2 Normal >=59mL/min/1 .73 m2 [facility] Chem S HCG.beta subunit Qn 1572 m[IU]/mL [...] 16.9 E9/L High 4.0 - 11.0 E9/L [facility] HemeAutoSS Laboratory - Microbiology an d Antimicrobial susceptibilityOrdered By: Asuncion Goncalves on 01-03-2023 Bacteria identified Cx Nom (U) No growth to date Continuing incubation [facility] MICRO OTHER TESTSOrdered By: Juancho Fitch [...] Interpretation Code Negative [facility] UA Auto SS [place].plasma/[place].R BC (Bld) [Mass ratio] 0-3 /HPF Normal 0-3/HPF [facility] UA Au to SS Nitrite Ql (U) Negative (01/03/23 10:52 PM) Normal Negative [facility] UA Auto SS pH (U) 6.5 *NA* (01/03/23 10:52 PM) Invalid Interpretation Code 5.0 - 9.0 [facility] UA Auto SS Protein (U) [Mass/Vol] Negative (01/03/23 10:52 PM) Normal Negative [facility] UA Auto SS Specific gravity (U) [Rel density] 1.020 *NA* (01/03/23 10:52 PM) Invalid Interpretation Code 1.005 - 1.030 [facility] UA Auto SS UA Spec Desc Clean Catch (01/03/23 10:52 PM) Normal [facility] UA Auto SS Urobilinogen Qn (U) 1.2899417 {Georgina'U}/dL Normal 0.0 - 1.0 EU/dL FT UA Auto SS WBC Auto Ql (U) 1+ *ABN* (01/03/23 10:52 PM) Invalid Interpretation Code Negative [facility] UA Auto SS WBC LM.HPF (Urine sed) [#/Area] 6-15 /HPF Invalid Interpretation Code 0-5/HPF [facility] UA Auto SS Alanine aminotransferase [En zymatic activity/volume] in Serum or PlasmaOrdered By: Jose Silverman on 10-02-2022 ALT [Catalytic activity/Vol] 13 U/L Normal 7-52 [facility] Comment on above: Performed By: #### C BC, CMP, ETOH #### [facility] [address] [place] [address] [place] Albumin [Mass/volume] in Ser um or Plasma by Bromocresol green (BCG) dye binding methoOrdered By: Jose Silverman on 10-02-2022 Albumin BCG dye [Mass/Vol] 5.0 g/dL 3.5-5.7 [facility] Alkaline phosphatase [Enzyma tic activity/volume] in Serum or PlasmaOrdered By: Jose Silverman on 10-02-2022 ALP [Catalytic activity/Vol] 69 U/L Normal 34-104 [facility] Comment on above: Performed By: #### C BC, CMP, ETOH #### [facility] [address] [place] [address] [place] Amphetamine Screen Ql (U)Ord ered By: Jose Silverman on 10-02-2022 Amphetamines Ql (U) Negative Negative [facility] Aspartate aminotransferase [ Enzymatic activity/volume] in Serum or PlasmaOrdered By: Jose Silverman on 10-02-2022 AST [Catalytic activity/Vol] 21 U/L Normal 13-39 [facility] Comment on above: Performed By: #### C BC, CMP, ETOH #### [address] Automated basophil %Ordered By: Jose Silverman on 10-02-2022 Basophils/100 WBC (Bld) 0.5 % Normal . [facility] Comment on above: Performed By: #### C BC, CMP, ETOH #### [address] Automated basophil countOrde red By: Jose Silverman on 10-02-2022 Basophils (Bld) [#/Vol] 0.1 10*3/uL Normal 0.0-0.2 [facility] Comment on above: Result Comment: PERF ORMED BY: [place] [address] PATHOLOGIST [employer]GL[employer]ER ASHELY CAREY M.D. Performed By: #### C BC, CMP, ETOH #### [address] Automated blood monocyte cou ntOrdered By: Jose Silverman on 10-02-2022 Monocytes (Bld) [#/Vol] 0.7 10*3/uL Normal 0.0-0.8 [facility] Comment on above: Performed By: #### C BC, CMP, ETOH #### [address] Automated eosinophil %Ordere d By: Jose Silverman on 10-02-2022 Eosinophils/100 WBC (Bld) 2.0 % Normal . [facility] Comment on above: Performed By: #### C BC, CMP, ETOH #### [address] Automated eosinophil countOr dered By: Jose Silverman on 10-02-2022 Eosinophils (Bld) [#/Vol] 0.3 10*3/uL Normal 0.0-0.45 [facility] Comment on above: Performed By: #### C BC, CMP, ETOH #### [address] Automated erythrocytes count in urine sediment (number/area)Ordered By: Jose Silverman on 10-02-2022 RBC Auto (Urine sed) [#/Area] 0-1 [HPF] 0-4 [facility] Automated leukocytes count i n urine sediment (number/area)Ordered By: Jose Silverman on 10-02-2022 WBC Auto (Urine sed) [#/Area] 10-19 [HPF] 0-4 [facility] Automated monocyte %Ordered By: Jose Silverman on 10-02-2022 Monocytes/100 WBC (Bld) 5.7 % Normal . [facility] Comment on above: Performed By: #### C BC, CMP, ETOH #### [facility] [address] Automated neutrophil %Ordere d By: Jose Silverman on 10-02-2022 Neutrophils/100 WBC (Bld) 68.7 % Normal . [facility] Comment on above: Performed By: #### C BC, CMP, ETOH #### [facility] [address] [place] [address] [place] Barbiturates [Presence] in U rine by Screen methodOrdered By: Jose Silverman on 10-02-2022 Barbiturates Screen Ql (U) Negative Negative [facility] Benzodiazepines Screen Ql (U )Ordered By: Jose Silverman on 10-02-2022 Benzodiazepines Ql (U) Negative Negative [facility] Benzoylecgonine [Presence] i n Urine by Screen methodOrdered By: Jose Silverman on 10-02-2022 Benzoylecgonine Screen Ql (U) Negative Negative [facility] Bilirubin Test strip Ql (U)O rdered By: Jsoe Silverman on 10-02-2022 Bilirubin Ql (U) Negative Negative [facility] Bilirubin.total [Mass/volume ] in Serum or PlasmaOrdered By: Jose Silverman on 10-02-2022 Bilirubin [Mass/Vol] 0.3 mg/dL Normal 0.3-1.0 [facility] Comment on above: Performed By: #### C BC, CMP, ETOH #### [facility] [address] [place] [address] [place] Calcium [Mass/volume] in Ser um or PlasmaOrdered By: Jose Silverman on 10-02-2022 Calcium [Mass/Vol] 9.6 mg/dL Normal 8.6-10.3 [facility] Comment on above: Performed By: #### C BC, CMP, ETOH #### [facility] [address] Cannabinoids [Presence] in U rine by Screen methodOrdered By: Jose Silverman on 10-02-2022 Cannabinoids Screen Ql (U) Negative Negative [facility] Comment on above: These are unconfirme d results and should not be used for legal purposes. Drug Cut-Off Concentration: AMPH 1000 ng/mL MIAH 200 ng/mL AYAN 200 ng/mL COCM 300 ng/mL OP 300 ng/mL PCP 25 ng/mL THC 20 ng/mL Carbon dioxide, total [Moles /volume] in Serum or PlasmaOrdered By: Jose Silverman on 10-02-2022 CO2 [Moles/Vol] 27.2 mmol/L Normal 21.0-31.0 [facility] Comment on above: Performed By: #### C BC, CMP, ETOH #### [place] [address] [place] Chloride [Moles/volume] in S brian or PlasmaOrdered By: Jose Silverman on 10-02-2022 Chloride [Moles/Vol] 101 mmol/L Normal 98-107 [facility] Comment on above: Performed By: #### C BC, CMP, ETOH #### [address] Color Auto (U)Ordered By: Loli Silverman on 10-02-2022 Color (U) Yellow Yellow [facility] Complete Blood Count Auto Di ffon 10-02-2022 Mean Corpuscular HGB Conc 32.0 g/dL Normal 32.0-35.0 [facility] Comment on above: Performed By: #### C BC, CMP, ETOH #### [place] [address] [place] Monocytes/100 WBC (Bld) 17.72 % Normal 0.00-20.00 [facility] Comment on above: Performed By: #### C BC, CMP, ETOH #### [address] NRBC% 0.0 /100{WBC} Normal 0-0.5 [facility] Comment on above: Performed By: #### C BC, CMP, ETOH #### [address] Comprehensive Metabolic Pane tung 10-02-2022 Albumin [Mass/Vol] 5.0 g/dL Normal 3.5-5.7 [facility] Comment on above: Performed By: #### C BC, CMP, ETOH #### [address] Creatinine Clr Calc Pharmacy 107.48 Normal [facility] Comment on above: Result Comment: PERF ORMED BY: [place] [address] PATHOLOGIST [employer] TE[employer]ER ASHELY CAREY M.D. Performed By: #### C BC, CMP, ETOH #### [address] GFR/1.73 sq M.predicted MDRD (S/P/Bld) [Vol rate/Area] mL/min/{1.73_m2} Normal [facility] Comment on above: Performed By: #### C BC, CMP, ETOH #### [address] Creatinine [Mass/volume] in Serum or PlasmaOrdered By: Jose Silverman on 10-02-2022 Creatinine [Mass/Vol] 0.89 mg/dL Normal 0.60-1.20 [facility] Comment on above: Performed By: #### C BC, CMP, ETOH #### [address] Dipstick and Microscopicon 0 10-02-2022 Appearance (U) Clear Normal Clear [facility] Comment on above: Order Comment: Name Collection Type:: Clean-Voided Midstream Performed By: #### U RDS, ADDONUAPLUS, CUU, UHCG #### [address] Bacteria,Urine 2+ High None Seen [facility] Comment on above: Order Comment: Name Collection Type:: Clean-Voided Midstream Performed By: #### U RDS, ADDONUAPLUS, CUU, UHCG #### [facility] [address] [place] [address] [place] Bilirubin,Urine Negative Normal Negative [facility] Comment on above: Order Comment: Name Collection Type:: Clean-Voided Midstream Performed By: #### U RDS, ADDONUAPLUS, CUU, UHCG #### [facility] [address] [place] [address] Color (U) Yellow Normal Yellow [facility] Comment on above: Order Comment: Name Collection Type:: Clean-Voided Midstream Performed By: #### U RDS, ADDONUAPLUS, CUU, UHCG #### [facility] [address] [place] [address] Glucose Ql (U) Normal Normal Normal [facility] Comment on above: Order Comment: Name Collection Type:: Clean-Voided Midstream Performed By: #### U RDS, ADDONUAPLUS, CUU, UHCG #### [facility] [address] [place] [address] Hyaline Casts,Urine 0-8 Normal 0-8 [facility] Comment on above: Order Comment: Name Collection Type:: Clean-Voided Midstream Performed By: #### U RDS, ADDONUAPLUS, CUU, UHCG #### [facility] [address] [place] [address] [place] Ketones Ql (U) Negative Normal Negative [facility] Comment on above: Order Comment: Name Collection Type:: Clean-Voided Midstream Performed By: #### U RDS, ADDONUAPLUS, CUU, UHCG #### [facility] [address] [place] [address] Leukocyte esterase Test strip Ql (U) 3+ High Negative [facility] Comment on above: Order Comment: Name Collection Type:: Clean-Voided Midstream Performed By: #### U RDS, ADDONUAPLUS, CUU, UHCG #### [facility] [address] [place] [address] [place] Nitrite,Urine Negative Normal Negative [facility] Comment on above: Order Comment: Name Collection Type:: Clean-Voided Midstream Performed By: #### U RDS, ADDONUAPLUS, CUU, UHCG #### [address] Occult Blood,Urine Negative Normal Negative [facility] Comment on above: Order Comment: Name Collection Type:: Clean-Voided Midstream Performed By: #### U RDS, ADDONUAPLUS, CUU, UHCG #### [address] pH (U) 6.5 [pH] Normal 5.0-9.0 [facility] Comment on above: Order Comment: Name Collection Type:: Clean-Voided Midstream Performed By: #### U RDS, ADDONUAPLUS, CUU, UHCG #### [facility] [address] [place] [address] Protein,Urine Negative Normal Negative [facility] Comment on above: Order Comment: Name Collection Type:: Clean-Voided Midstream Performed By: #### U RDS, ADDONUAPLUS, CUU, UHCG #### [facility] [address] [place] [address] RBC LM.HPF (Urine sed) [#/Area] 0 /[HPF] Normal 0-4 [facility] Comment on above: Order Comment: Name Collection Type:: Clean-Voided Midstream Performed By: #### U RDS, ADDONUAPLUS, CUU, UHCG #### [facility] [address] [place] [address] Specificy Pierson,Urine 1.021 Normal 1.001-1.030 [facility] Comment on above: Order Comment: Name Collection Type:: Clean-Voided Midstream Performed By: #### U RDS, ADDONUAPLUS, CUU, UHCG #### [address] Squamous Epithelial Cell,Urine 10-19 High 0-2 [facility] Comment on above: Order Comment: Name Collection Type:: Clean-Voided Midstream Performed By: #### U RDS, ADDONUAPLUS, CUU, UHCG #### [facility] [address] [place] [address] Urobilinogen,Urine Normal Normal Normal [facility] Comment on above: Order Comment: Name Collection Type:: Clean-Voided Midstream Performed By: #### U RDS, ADDONUAPLUS, CUU, UHCG #### [facility] [address] [place] [address] [place] WBC,Urine 10-19 High 0-4 [facility] Comment on above: Order Comment: Name Collection Type:: Clean-Voided Midstream Performed By: #### U RDS, ADDONUAPLUS, CUU, UHCG #### [address] Drug Screen,Urineon 10-03-19 Amphetamine Screen,Urine Negative Normal Negative [facility] Comment on above: Performed By: #### U RDS, ADDONUAPLUS, CUU, UHCG #### [address] Barbiturate Screen,Urine Negative Normal Negative [facility] Comment on above: Performed By: #### U RDS, ADDONUAPLUS, CUU, UHCG #### [address] Benzodiazepines Screen,Urine Negative Normal Negative [facility] Comment on above: Performed By: #### U RDS, ADDONUAPLUS, CUU, UHCG #### [facility] [address] [place] [address] Cannabinoid Screen,Urine Negative Normal Negative [facility] Comment on above: Result Comment: Thes e are unconfirmed results and should not be used for legal purposes. Drug Cut-Off Concentration: AMPH 1000 ng/mL MIAH 200 ng/mL AYAN 200 ng/mL COCM 300 ng/mL OP 300 ng/mL PCP 25 ng/mL THC 20 ng/mL PERFORMED BY: [place] [address] PATHOLOGIST [employer] ASHELY CAREY M.D. Performed By: #### U RDS, ADDONUAPLUS, CUU, UHCG #### [facility] [address] [place] [address] [place] Cocaine Screen,Urine Negative Normal Negative [facility] Comment on above: Performed By: #### U RDS, ADDONUAPLUS, CUU, UHCG #### [facility] [address] [place] [address] [place] Opiate Screen,Urine Negative Normal Negative [facility] Comment on above: Performed By: #### U RDS, ADDONUAPLUS, CUU, UHCG #### [facility] [address] [place] [address] [place] Phencyclidine Screen,Urine Negative Normal Negative [facility] Comment on above: Performed By: #### U RDS, ADDONUAPLUS, CUU, UHCG #### [facility] [address] Erythrocyte distribution wid th [Ratio] by Automated countOrdered By: Jose Silverman on 10-02-2022 Erythrocyte distribution width (RBC) [Ratio] 15.8 % High 11.9-15.3 [facility] Comment on above: Performed By: #### C BC, CMP, ETOH #### [address] Erythrocytes [#/volume] in B lood by Automated countOrdered By: Jose Silverman on 10-02-2022 RBC (Bld) [#/Vol] 5.31 10*6/uL High 3.60-5.00 [facility] Comment on above: Performed By: #### C BC, CMP, ETOH #### [facility] [address] [place] [address] [place] Ethanol [Mass/volume] in Ser um or PlasmaOrdered By: Jose Silverman on 10-02-2022 Ethanol [Mass/Vol] mg/dL Normal [facility] Comment on above: Performed By: #### C BC, CMP, ETOH #### [facility] [address] Ethanol [Mass/Vol] TNP [facility] Comment on above: Test not performed Ethyl Alcohol Profileon 09-08 Percent Ethanol Not performed Normal [facility] Comment on above: Result Comment: PERF ORMED BY: [place] [address] PATHOLOGIST [employer] ASHELY CAERY M.D. Performed By: #### C BC, CMP, ETOH #### [facility] [address] [id number] [place] Glucose [Mass/volume] in Ser um or PlasmaOrdered By: Jose Silverman on 10-02-2022 Glucose [Mass/Vol] 98 mg/dL Normal 70-100 [facility] Comment on above: ADA recommended refe rence rangeRandom Glucose Reference Range is dependent on time and content of last meal. Glucose of more than 200 mg/dL in a nonstressed, ambulatory subject supports the diagnosis of Diabetes Mellitus. Result Comment: [place] om Glucose Reference Range is dependent on time and content of last meal. Glucose of more than 200 mg/dL in a nonstressed, ambulatory subject supports the diagnosis of Diabetes Mellitus. ADA recommended reference range Performed By: #### C BC, CMP, ETOH #### [facility] [address] [id number] [place] HCG ( test) IA.rapi d Ql (U)Ordered By: Jose Silverman on 10-02-2022 HCG ( test) Ql (U) Negative [facility] HCG,Urineon 10-02-2022 Beta HCG ( test) Ql (U) Negative Normal [facility] Comment on above: Order Comment: Name Collection Type:: Clean-Voided Midstream Result Comment: PERF ORMED BY: [facility] [address] [place] [address] PATHOLOGIST [employer] ASHELY CAREY M.D. Performed By: #### U RDS, ADDONUAPLUS, CUU, UHCG #### [facility] [address] [place] [address] [place] Hematocrit [Volume Fraction] of Blood by Automated countOrdered By: Jose Silverman on 10-02-2022 Hematocrit (Bld) [Volume fraction] 41.7 % Normal 34.0-46.4 [facility] Comment on above: Performed By: #### C BC, CMP, ETOH #### [facility] [address] [place] [address] Hemoglobin [Mass/volume] in BloodOrdered By: Jose Silverman on 10-02-2022 Hemoglobin (Bld) [Mass/Vol] 13.3 g/dL Normal 11.8-15.4 [facility] Comment on above: Performed By: #### C BC, CMP, ETOH #### [address] Ketones Auto test strip (U) [Mass/Vol]Ordered By: Jose Silverman on 10-02-2022 Ketones (U) [Mass/Vol] Negative Negative [facility] - UrinalysisOrder ed By: Jose Silverman on 10-02-2022 Hyaline casts LM Ql (Urine sed) 0-8 [LPF] 0-8 [facility] Leukocytes [#/volume] correc ruby for nucleated erythrocytes in Blood by Automated counOrdered By: Jose Silverman on 10-02-2022 WBC corrected for nucl RBC Auto (Bld) [#/Vol] 12.9 10*3/uL 3.8-11.6 [facility] Leukocytes [#/volume] in Blo od by Automated countOrdered By: Jose Silverman on 10-02-2022 WBC (Bld) [#/Vol] 12.9 10*3/uL High 3.8-11.6 [facility] Comment on above: Performed By: #### C BC, CMP, ETOH #### [facility] [address] [place] [address] [place] Lymphocytes [#/volume] in Bl ood by Automated countOrdered By: Jose Silverman on 10-02-2022 Lymphocytes (Bld) [#/Vol] 3.0 10*3/uL Normal 1.00-4.8 [facility] Comment on above: Performed By: #### C BC, CMP, ETOH #### [facility] [address] [place] [address] [place] Lymphocytes/100 leukocytes i n Blood by Automated countOrdered By: Jose Silverman on 10-02-2022 Lymphocytes/100 WBC (Bld) 23.1 % Normal . [facility] Comment on above: Performed By: #### C BC, CMP, ETOH #### [facility] [address] [place] [address] MCH [Entitic mass] by Automa ruby countOrdered By: Jose Silverman on 10-02-2022 MCH (RBC) [Entitic mass] 25.2 pg Normal 24.7-34.3 [facility] Comment on above: Performed By: #### C BC, CMP, ETOH #### [address] MCHC Auto (RBC) [Mass/Vol]Or dered By: Jose Silverman on 10-02-2022 MCHC (RBC) [Mass/Vol] 32.0 g/dL 32.0-35.0 [facility] MCV [Entitic volume] by Auto mated countOrdered By: Jose Silverman on 10-02-2022 MCV (RBC) [Entitic vol] 78.5 fL Low 80-100 [facility] Comment on above: Performed By: #### C BC, CMP, ETOH #### [address] Monocyte distribution width [Entitic volume] in Blood by AutomatedOrdered By: Jose Silverman on 10-02-2022 Monocyte distribution width Auto (Bld) [Entitic vol] 17.72 % 0.00-20.00 [facility] Neutrophils [#/volume] in Bl ood by Automated countOrdered By: Jose Silverman on 10-02-2022 Neutrophils (Bld) [#/Vol] 8.9 10*3/uL High 1.8-7.7 [facility] Comment on above: Performed By: #### C BC, CMP, ETOH #### [facility] [address] [place] [address] Nitrite Test strip Ql (U)Ord ered By: Jose Silverman on 10-02-2022 Nitrite Ql (U) Negative Negative [facility] No Panel InformationOrdered By: Jose Silverman on 10-02-2022 Estimated GFR (CKD-EPI) > 60.0 mL/Min [facility] Creatinine Clearance (Chem 107.48 [facility] Nucleated erythrocytes [Pres ence] in Blood by Automated countOrdered By: Jose Silverman on 10-02-2022 Nucleated RBC Auto Ql (Bld) 0.0 /100{WBC} 0-0.5 [facility] Opiates [Presence] in Urine by Screen methodOrdered By: Jose Silverman on 10-02-2022 Opiates Screen Ql (U) Negative Negative [facility] Phencyclidine Screen Ql (U)O rdered By: Jose Silverman on 10-02-2022 Phencyclidine Ql (U) Negative Negative [facility] Platelet mean volume [Entiti c volume] in Blood by Automated countOrdered By: Jose Silverman on 10-02-2022 Platelet mean volume (Bld) [Entitic vol] 7.7 fL Normal 6.3-10.7 [facility] Comment on above: Performed By: #### C BC, CMP, ETOH #### [facility] [address] [place] [address] [place] Platelets [#/volume] in Bloo d by Automated countOrdered By: Jose Silverman on 10-02-2022 Platelets (Bld) [#/Vol] 342 10*3/uL Normal 150-450 [facility] Comment on above: Performed By: #### C BC, CMP, ETOH #### [facility] [address] [place] [address] [place] Potassium [Moles/volume] in Serum or PlasmaOrdered By: Jose Silverman on 10-02-2022 Potassium [Moles/Vol] 3.8 mmol/L Normal 3.5-5.1 [facility] Comment on above: Performed By: #### C BC, CMP, ETOH #### [facility] [address] [place] [address] [place] Protein Auto test strip (U) [Mass/Vol]Ordered By: Jose Silverman on 10-02-2022 Protein (U) [Mass/Vol] Negative Negative [facility] Protein [Mass/volume] in Ser um or PlasmaOrdered By: Jose Silverman on 10-02-2022 Protein [Mass/Vol] 8.7 g/dL Normal 6.4-8.9 [facility] Comment on above: Performed By: #### C BC, CMP, ETOH #### [address] Serum globulin measurement b y calculation (mass/volume)Ordered By: Jose Silverman on 10-02-2022 Globulin (S) [Mass/Vol] 3.7 g/dL Normal [facility] Comment on above: Performed By: #### C BC, CMP, ETOH #### [address] Serum or plasma albumin/glob ulin mass ratioOrdered By: Jose Silverman on 10-02-2022 Albumin/Globulin [Mass ratio] 1.4 {ratio} Normal [facility] Comment on above: Performed By: #### C BC, CMP, ETOH #### [address] Serum or plasma anion gap de terminationOrdered By: Jose Silverman on 10-02-2022 Anion gap [Moles/Vol] 12.6 mmol/L Normal 6.0-15.0 [facility] Comment on above: Performed By: #### C BC, CMP, ETOH #### [address] Sodium [Moles/volume] in Ser um or PlasmaOrdered By: Jose Silverman on 10-02-2022 Sodium [Moles/Vol] 137 mmol/L Normal 136-145 [facility] Comment on above: Performed By: #### C BC, CMP, ETOH #### [address] Specific gravity Auto test s trip (U) [Rel density]Ordered By: Jose Silverman on 10-02-2022 Specific gravity (U) [Rel density] 1.021 1.001-1.030 [facility] Squamous epithelial cells de tection in urine sediment by light microscopyOrdered By: Jose Silverman on 10-02-2022 Epithelial cells.squamous LM Ql (Urine sed) 10-19 [HPF] 0-2 [facility] Urea nitrogen [Mass/volume] in Serum or PlasmaOrdered By: Jose Silverman on 10-02-2022 Urea nitrogen [Mass/Vol] 18 mg/dL Normal 7-25 [facility] Comment on above: Performed By: #### C BC, CMP, ETOH #### [facility] [address] [place] [address] [place] Urine Cultureon 10-02-2022 Bacteria identified Cx Nom (U) ORGANISM: Strep agalactiae - (group b) (O:STRAGA) Ailey Count 50,000 PERFORMED BY: [place] [address] PATHOLOGIST [employer] ASHELY CAREY M.D. Normal [facility] Comment on above: Performed By: #### U RDS, ADDONUAPLUS, CUU, UHCG #### [facility] [address] [place] [address] Urine bacteria detection by automated methodOrdered By: Jose Silverman on 10-02-2022 Bacteria Auto Ql (U) 2+ None Seen [facility] Urine clarity by refractomet ry automatedOrdered By: Jose Silverman on 10-02-2022 Clarity Refractometry automated (U) Clear Clear [facility] Urine glucose measurement by automated test strip (mass/volume)Ordered By: Jose Silverman on 10-02-2022 Glucose Auto test strip (U) [Mass/Vol] Normal mg/dL Normal [facility] Urine hemoglobin detection b y automated test stripOrdered By: Jose Silverman on 10-02-2022 Hemoglobin Auto test strip Ql (U) Negative Negative [facility] Urine leukocyte esterase det ection by automated test stripOrdered By: Jose Silverman on 10-02-2022 Leukocyte esterase Auto test strip Ql (U) 3+ Negative [facility] Urobilinogen Auto test strip (U) [Mass/Vol]Ordered By: Jose Silverman on 10-02-2022 Urobilinogen (U) [Mass/Vol] Normal mg/dL Normal [facility] pH Auto test strip (U)Ordere d By: Jose Silverman on 10-02-2022 pH (U) 6.5 [pH] 5.0-9.0 [facility] Quick Strepon 09-25-2022 S. pyogenes Org specific cx Ql (Throat) Negative [employer] Other C[facility] Nick[facility] [employer] Other CHEMISTRYOrdered By: SYSTEM SYSTEM on 09-06-2022 [...] AM) Normal Negative [facility] UA Auto SS [place].plasma/[place].R BC (Bld) [Mass ratio] >30 /HPF Invalid [...] Desc Clean Catch (09/06/22 11:19 AM) Normal [facility] UA Auto SS Urobilinogen Qn (U) 0.8804413 {Georgina'U}/dL Normal 0.0 - 1.0 EU/dL [facility] UA Auto SS WBC Auto Ql (U) Negative (09/06/22 11:19 AM) Normal Negative [facility] UA Auto SS WBC LM.HPF (Urine sed) [#/Area] 0-5 /HPF Normal 0-5/HPF FT UA Auto SS BLOOD BANKOrdered By: John Montague on 08-14-2022 ABO/Rh Interp Positive Invalid Interpretation Code [facility] BB Subsection CHEMISTRYOrdered By: SYSTEM SYSTEM on [...] PM) Normal Negative [facility] UA Auto SS [place].plasma/[place].R BC (Bld) [Mass ratio] 0-3 /HPF Normal [...] [facility] UA Auto SS Urobilinogen Qn (U) 0.5919771 {Georgina'U}/dL Normal 0.0 - 1.0 EU/dL [facility] UA Auto SS WBC Auto Ql (U) Negative (08/14/22 7:29 PM) Normal Negative [facility] UA Auto SS WBC LM.HPF (Urine sed) [#/Area] 0-5 /HPF Normal 0-5/HPF [facility] UA Auto SS CHLAMYDIA/GONOCOCCUS ALFREDO (SW AB/URINE/PAPon 07-15-2022 Chlamydia trachomatis, ALFREDO Negative Normal Negative [facility] Comment on above: Performed By: #### C T/NGNA #### [facility] [address] [address] [address] Cyril Hendricks Neisseria gonorrhoeae, ALFREDO Negative Normal Negative [facility] Comment on above: Performed By: #### C T/NGNA #### [facility] [address] [address] [address] Cyril Hendricks VAGINITIS/VAGINOSIS DNA PROB Maurice 07-13-2022 Krista species Negative Normal Negative [facility] Comment on above: Performed By: #### U MICRO, UACSIND #### [facility] [address] [address] [address] Cyril Hendricks Gardnerella vaginalis Positive Abnormal Negative [facility] Comment on above: Performed By: #### U MICRO, UACSIND #### [facility] [address] [address] [address] Cyril Hendricks Trichomonas vaginalis Negative Normal Negative [facility] Comment on above: Performed By: #### U MICRO, UACSIND #### [facility] [address] [address] [address] Cyril Hendricks COVID/FLU RT-PCRon SARS-CoV-2 (COVID-19) RNA ALFREDO+probe Ql (Unsp spec) Negative [employer] Other COVID/FLU RT-PCR Negative [facility] Other Quick Strepon 06-24-2022 S. pyogenes Org specific cx Ql (Throat) Negative [employer] Other Quick Strep [employer] Other CBC AUTO DIFFon 08-02-2022 BASO # 0.1 103/ul Normal 0.0-0.1 [facility] Comment on above: Performed By: #### C BC #### [facility] [address] [address] [address] Cyril Hendricks Basophils/100 WBC (Bld) 0.4 % Normal 0.2-2.0 [facility] Comment on above: Performed By: #### C BC #### [facility] [address] [address] [address] Cyril Hendricks EO # 0.1 103/ul Normal 0.0-0.7 [facility] Comment on above: Performed By: #### C BC #### [facility] [address] [place] [address] Dr. Cyril Hendricks Eosinophils/100 WBC (Bld) 0.9 % Normal 0.9-7.0 [facility] Comment on above: Performed By: #### C BC #### [facility] [address] [place] [address] Dr. Cyril Hendricks Erythrocyte distribution width (RBC) [Ratio] 12.3 % Normal 11.0-15.0 [facility] Comment on above: Performed By: #### C BC #### [facility] [address] [place] [address] Dr. Cyril Hendricks Hematocrit (Bld) [Volume fraction] 30.0 % Critically low 36.0-48.0 [facility] Comment on above: Performed By: #### C BC #### [facility] [address] [place] [address] Dr. Cyril Hendricks Hemoglobin (Bld) [Mass/Vol] 10.2 g/dL Critically low 12.0-16.0 [facility] Comment on above: Performed By: #### C BC #### [facility] [address] [place] [address] Dr. Cyril Hendricks IG # 0.05 10e3/ul Critically high 0.00-0.03 [facility] Comment on above: Performed By: #### C BC #### [facility] [address] [place] [address] Dr. Cyril Hendricks IG % 0.4 % Normal 0.0-0.5 [facility] Comment on above: Performed By: #### C BC #### [facility] [address] [place] [address] Dr. Cyril Hendricks LYMPH # 2.8 103/ul Normal 1.2-3.8 [facility] Comment on above: Performed By: #### C BC #### [facility] [address] [place] [address] Dr. Cyril Hendricks Lymphocytes/100 WBC (Bld) 19.7 % Critically low 20.5-60.0 [facility] Comment on above: Performed By: #### C BC #### [facility] [address] [place] [address] Dr. Cyril Hendricks MANUAL DIFF REQ NO Normal [facility] Comment on above: Performed By: #### C BC #### [facility] [address] [place] [address] Dr. Cyril Hendricks MCH (RBC) [Entitic mass] 30.6 pg Normal 26.7-34.0 [facility] Comment on above: Performed By: #### C BC #### [facility] [address] [place] [address] Dr. Cyril Hendricks MCHC (RBC) [Mass/Vol] 34.0 g/dL Normal 29.9-35.2 [facility] Comment on above: Performed By: #### C BC #### [facility] [address] [place] [address] Dr. Cyril Hendricks MCV (RBC) [Entitic vol] 90.1 fL Normal 81.0-99.0 [facility] Comment on above: Performed By: #### C BC #### [facility] [address] [place] [address] Dr. Cyril Hendricks MONO # 0.8 103/ul Normal 0.3-0.8 [facility] Comment on above: Performed By: #### C BC #### [facility] [address] [place] [address] Dr. Cyril Hendricks Monocytes/100 WBC (Bld) 5.9 % Normal 1.7-12.0 [facility] Comment on above: Performed By: #### C BC #### [facility] [address] [place] [address] Dr. Cyril Hendricks NEUT # 10.3 103/ul Critically high 1.4-6.5 [facility] Comment on above: Performed By: #### C BC #### [facility] [address] [place] [address] Dr. Cyril Hendricks Neutrophils/100 WBC (Bld) 72.7 % Normal 43.0-75.0 [facility] Comment on above: Performed By: #### C BC #### [facility] [address] [place] [address] Dr. Cyril Hendricks Platelet mean volume (Bld) [Entitic vol] 9.8 fL Normal 9.5-13.5 [facility] Comment on above: Performed By: #### C BC #### [facility] [address] [place] [address] Dr. Cyril Hendricks PLT 207 103/ul Normal 150-450 [facility] Comment on above: Performed By: #### C BC #### [facility] [address] [place] [address] Dr. Cyril Hendricks RBC 3.33 106/ul Critically low 4.20-5.40 [facility] Comment on above: Performed By: #### C BC #### [facility] [address] [place] [address] Dr. Cyril Hendricks WBC 14.2 103/ul Critically high 4.0-11.0 [facility] Comment on above: Performed By: #### C BC #### [facility] [address] [place] [address] Dr. Cyril Hendricks CBC AUTO DIFFon 01-07-2022 BASO # 0.1 103/ul Normal 0.0-0.1 [facility] Comment on above: Performed By: #### U MICRO, UACSIND #### [facility] [address] [place] [address] Dr. Cyril Hendricks Basophils/100 WBC (Bld) 0.5 % Normal 0.2-2.0 [facility] Comment on above: Performed By: #### U MICRO, UACSIND #### [facility] [address] [address] [address] Cyril Hendricks EO # 0.1 103/ul Normal 0.0-0.7 [facility] Comment on above: Performed By: #### U MICRO, UACSIND #### [facility] [address] [place] [address] Dr. Cyril Hendricks Eosinophils/100 WBC (Bld) 0.9 % Normal 0.9-7.0 [facility] Comment on above: Performed By: #### U MICRO, UACSIND #### [facility] [address] [place] [address] Dr. Cyril Hendricks Erythrocyte distribution width (RBC) [Ratio] 12.4 % Normal 11.0-15.0 [facility] Comment on above: Performed By: #### U MICRO, UACSIND #### [facility] [address] [place] [address] Dr. Cyril Hendricks Hematocrit (Bld) [Volume fraction] 34.3 % Critically low 36.0-48.0 [facility] Comment on above: Performed By: #### U MICRO, UACSIND #### [facility] [address] [place] [address] Dr. Cyril Hendricks Hemoglobin (Bld) [Mass/Vol] 11.6 g/dL Critically low 12.0-16.0 [facility] Comment on above: Performed By: #### U MICRO, UACSIND #### [facility] [address] [place] [address] Dr. Cyril Hendricks IG # 0.06 10e3/ul Critically high 0.00-0.03 [facility] Comment on above: Performed By: #### U MICRO, UACSIND #### [facility] [address] [place] [address] Dr. Cyril Hendricks IG % 0.4 % Normal 0.0-0.5 [facility] Comment on above: Performed By: #### U MICRO, UACSIND #### [facility] [address] [address] [address] Cyril Hendricks LYMPH # 3.1 103/ul Normal 1.2-3.8 [facility] Comment on above: Performed By: #### U MICRO, UACSIND #### [facility] [address] [address] [address] Cyril Hendricks Lymphocytes/100 WBC (Bld) 20.4 % Critically low 20.5-60.0 [facility] Comment on above: Performed By: #### U MICRO, UACSIND #### [facility] [address] [place] [address] Dr. Cyril Hendricks MANUAL DIFF REQ NO Normal [facility] Comment on above: Performed By: #### U MICRO, UACSIND #### [facility] [address] [place] [address] Dr. Cyril Hendricks MCH (RBC) [Entitic mass] 30.6 pg Normal 26.7-34.0 [facility] Comment on above: Performed By: #### U MICRO, UACSIND #### [facility] [address] [place] [address] Dr. Cyril Hendricks MCHC (RBC) [Mass/Vol] 33.8 g/dL Normal 29.9-35.2 [facility] Comment on above: Performed By: #### U MICRO, UACSIND #### [facility] [address] [place] [address] Dr. Cyril Hendricks MCV (RBC) [Entitic vol] 90.5 fL Normal 81.0-99.0 [facility] Comment on above: Performed By: #### U MICRO, UACSIND #### [facility] [address] [place] [address] Dr. Cyril Hendricks MONO # 0.9 103/ul Critically high 0.3-0.8 [facility] Comment on above: Performed By: #### U MICRO, UACSIND #### [facility] [address] [place] [address] Dr. Cyril Hendricks Monocytes/100 WBC (Bld) 6.2 % Normal 1.7-12.0 [facility] Comment on above: Performed By: #### U MICRO, UACSIND #### [facility] [address] [place] [address] Dr. Cyril Hendricks NEUT # 10.9 103/ul Critically high 1.4-6.5 [facility] Comment on above: Performed By: #### U MICRO, UACSIND #### [facility] [address] [place] [address] Dr. Cyril Hendricks Neutrophils/100 WBC (Bld) 71.6 % Normal 43.0-75.0 [facility] Comment on above: Performed By: #### U MICRO, UACSIND #### [facility] [address] [place] [address] Dr. Cyril Hendricks Platelet mean volume (Bld) [Entitic vol] 11.1 fL Normal 9.5-13.5 [facility] Comment on above: Performed By: #### U MICRO, UACSIND #### [facility] [address] [place] [address] Dr. Cyril Hendricks PLT 240 103/ul Normal 150-450 [facility] Comment on above: Performed By: #### U MICRO, UACSIND #### [facility] [address] [place] [address] Dr. Cyril Hendricks RBC 3.79 106/ul Critically low 4.20-5.40 [facility] Comment on above: Performed By: #### U MICRO, UACSIND #### [facility] [address] [place] [address] Dr. Cyril Hendricks WBC 15.3 103/ul Critically high 4.0-11.0 [facility] Comment on above: Performed By: #### U MICRO, UACSIND #### [facility] [address] [place] [address] Dr. Cyril Hendricks Covid-19 PCR ([facility])on SARS-CoV-2 (COVID-19) RNA ALFREDO+probe Ql (Unsp [...] for this test is supported by the [place] of Health and Human Service's declaration that [...] [facility] [facility] [address] [place] [address] Dr. Cyril Hendricks DRUG SCREEN RAPID (URINE)on 01-07-2022 AMP Negative Normal NEGATIVE [facility] Comment on above: Performed By: #### U MICRO, UACSIND #### [facility] [address] [place] [address] Dr. Cyril Hendricks BAR Negative Normal NEGATIVE [facility] Comment on above: Performed By: #### U MICRO, UACSIND #### [facility] [address] [place] [address] Dr. Cyril Hendricks BUP Negative Normal NEGATIVE [facility] Comment on above: Performed By: #### U MICRO, UACSIND #### [facility] [address] [place] [address] Dr. Cyril Hendricks BZO Negative Normal NEGATIVE [facility] Comment on above: Performed By: #### U MICRO, UACSIND #### [facility] [address] [place] [address] Dr. Cyril Hendricks DARIN Negative Normal NEGATIVE [facility] Comment on above: Performed By: #### U MICRO, UACSIND #### [facility] [address] [place] [address] Dr. Cyril Hendricks CUT-OFFS SEE BELOW Normal [facility] Comment on above: Result Comment: AMP (Amphetamine): [...] [facility] [address] [place] [address] Dr. Cyril Hendricks DRUG CUT HEADER DRUG CLASS TEST SYSTEM CUT-OFF CONCENTRATIONS ARE FOLLOWS: Normal [facility] Comment on above: Performed By: #### U MICRO, UACSIND #### [facility] [address] [place] [address] Dr. Cyril Hendricks mAMP Negative Normal NEGATIVE [facility] Comment on above: Performed By: #### U MICRO, UACSIND #### [facility] [address] [place] [address] Dr. Cyril Hendricks MTD Negative Normal NEGATIVE [facility] Comment on above: Performed By: #### U MICRO, UACSIND #### [facility] [address] [place] [address] Dr. Cyril Hendricks OPI Negative Normal NEGATIVE [facility] Comment on above: Performed By: #### U MICRO, UACSIND #### [facility] [address] [place] [address] Dr. Cyril Hendricks OXY Negative Normal NEGATIVE [facility] Comment on above: Performed By: #### U MICRO, UACSIND #### [facility] [address] [place] [address] Dr. Cyril Hendricks PCP Negative Normal NEGATIVE [facility] Comment on above: Performed By: #### U MICRO, UACSIND #### [facility] [address] [address] [address] Cyril Hendricks PPX Negative Normal NEGATIVE [facility] Comment on above: Performed By: #### U MICRO, UACSIND #### [facility] [address] [address] [address] Cyril Hendricks TCA Negative Normal NEGATIVE [facility] Comment on above: Performed By: #### U MICRO, UACSIND #### [facility] [address] [place] [address] Dr. Cyril Hendricks THC Negative Normal NEGATIVE [facility] Comment on above: Performed By: #### U MICRO, UACSIND #### [facility] [address] [place] [address] Dr. Cyril Hendricks TYPE AND SCREENon 01-07-2022 TYPE AND SCREEN Negative Normal [facility] Comment on above: Performed By: #### H CVPCRR #### [facility] [address] [place] [address] Dr. Cyril Hendricks CULTURE URINEon 12-29-2021 CULTURE URINE Culture Observations: NO GROWTH. Normal [facility] Comment on above: Performed By: #### U RCX #### [facility] [address] [place] [address] Dr. Cyril Hendricks UA (CLEAN/CATCH) QUANTITY SURVEYOR/MICRO I F IND.on 12-29-2021 Bilirubin Ql (U) Negative Normal NEGATIVE [facility] Comment on above: Performed By: #### U MICRO, UACSIND #### [facility] [address] [place] [address] Dr. Cyril Hendricks Clarity (U) SL CLOUDY Abnormal CLEAR [facility] Comment on above: Performed By: #### U MICRO, UACSIND #### [facility] [address] [place] [address] Dr. Cyril Hendricks Color (U) LT. YELLOW Normal YELLOW [facility] Comment on above: Performed By: #### U MICRO, UACSIND #### [facility] [address] [place] [address] Dr. Cyril Hendricks Glucose Ql (U) Negative Normal NEGATIVE [facility] Comment on above: Performed By: #### U MICRO, UACSIND #### [facility] [address] [address] [address] Cyril Hendricks Hemoglobin Ql (U) Negative Normal NEGATIVE [facility] Comment on above: Performed By: #### U MICRO, UACSIND #### [facility] [address] [address] [address] Cyril Hendricks Ketones Ql (U) Negative Normal NEGATIVE [facility] Comment on above: Performed By: #### U MICRO, UACSIND #### [facility] [address] [address] [address] Cyril Hendricks LEUKOCYTES LARGE Abnormal NEGATIVE [facility] Comment on above: Performed By: #### U MICRO, UACSIND #### [facility] [address] [place] [address] Dr. Cyril Hendricks Nitrite Ql (U) Negative Normal NEGATIVE [facility] Comment on above: Performed By: #### U MICRO, UACSIND #### [facility] [address] [place] [address] Dr. Cyril Hendricks pH (U) 6.5 [pH] Normal 5-9 [facility] Comment on above: Performed By: #### U MICRO, UACSIND #### [facility] [address] [place] [address] Dr. Cyril Hendricks SPEC GRAVITY 1.010 Normal 1.005-<=1.02 5 [facility] Comment on above: Performed By: #### U MICRO, UACSIND #### [facility] [address] [address] [address] Cyril Hendricks UA PROTEIN Negative Normal NEGATIVE/ TRACE [facility] Comment on above: Performed By: #### U MICRO, UACSIND #### [facility] [address] [place] [address] Dr. Cyril Hendricks UR MICRO IND INDICATED Normal [facility] Comment on above: Performed By: #### U MICRO, UACSIND #### [facility] [address] [place] [address] Dr. Cyril Hendricks Urobilinogen Qn (U) 0.2 {Georgina'U}/dL Normal 0.2 - 1. 0 [facility] Comment on above: Performed By: #### U MICRO, UACSIND #### [facility] [address] [address] [address] Cyril Hendricks URINE MICROSCOPIC ONLYon BACTERIA SMALL Abnormal NONE SEEN [facility] Comment on above: Performed By: #### U MICRO, UACSIND #### [facility] [address] [address] [address] Cyril Hendricks Bacteria identified Cx Nom (U) INDICATED Normal [facility] Comment on above: Performed By: #### U MICRO, UACSIND #### [facility] [address] [place] [address] Dr. Cyril Hendricks CAST NONE SEEN Normal NONE SEEN [facility] Comment on above: Performed By: #### U MICRO, UACSIND #### [facility] [address] [place] [address] Dr. Cyril Hendricks Crystals LM Nom (Urine sed) NONE SEEN Normal NONE SEEN [facility] Comment on above: Performed By: #### U MICRO, UACSIND #### [facility] [address] [place] [address] Dr. Cyril Hendricks Epithelial cells LM Ql (Urine sed) MANY Abnormal NONE SEEN /RARE [facility] Comment on above: Performed By: #### U MICRO, UACSIND #### [facility] [address] [place] [address] Dr. Cyril Hendricks MUCOUS NONE SEEN Normal NONE SEEN [facility] Comment on above: Performed By: #### U MICRO, UACSIND #### [facility] [address] [place] [address] Dr. Cyril Hendricks RBC 0-2 Normal 0-2 [facility] Comment on above: Performed By: #### U MICRO, UACSIND #### [facility] [address] [place] [address] Dr. Cyril Hendricks WBC 10-20 Abnormal NONE SEEN [facility] Comment on above: Performed By: #### U MICRO, UACSIND #### [facility] [address] [address] [address] Cyril Hendricks GROUP B STREP CULTUREon 12-07 S. agalactiae Ag Ql (Unsp spec) Culture Observations: NEGATIVE FOR GROUP B STREPTOCOCCUS. Normal [facility] Comment on above: Performed By: #### G BSCX #### [facility] [address] [address] [address] Cyril Hendricks SSAon 12-13-2021 SSA <0.3 Normal <7.0 [facility] Comment on above: Result Comment: Reference Range: <7.0 Negative 7.0-10.0 Equivocal >10.0 Positive Performed By: #### S SARO, TSH, FT4, SSBLA #### [facility] [address] [place] [id number] [employer] Lead: Homer Hoffman MD SSBon 12-13-2021 SSB <0.3 Normal <7.0 [facility] Comment on above: Result Comment: Reference Range: <7.0 Negative 7.0-10.0 Equivocal >10.0 Positive Performed By: #### S SARO, TSH, FT4, SSBLA #### [facility] [address] [place] [id number] [employer] Lead: Homer Hoffman MD No Panel Informationon 12-12 [facility] T4, Freeon 12-12-2021 Thyroxine, Free 0.98 ng/dL 0.93 - 1.70 ng/dL [facility] TSHon 12-12-2021 TSH Qn 4.35 m[IU]/L [facility] Thyroid Stim. Horm.on 2021 Thyroid Stim. Horm. 4.35 uIU/mL Normal 0.30-5.00 [facility] Comment on above: Performed By: #### S SARO, TSH, FT4, SSBLA #### [facility] [address] [place] [id number] [employer] Lead: Homer Hoffman MD Thyroxine, Freeon 12-12-2021 Thyroxine, Free 0.98 ng/dL Normal 0.93-1.70 [facility] Comment on above: Performed By: #### S SARO, TSH, FT4, SSBLA #### [facility] [address] [place] [address] [employer] Lead: Homer Hoffman MD US PREG BIOPHY W [...] profile score: 8.0 arrhythmia Electronically authenticated by: SFOIA KABA Date: 2021-11-27 13:55 Normal [facility] COVID + FLU Quick Testingon 11-13-2021 SARS-CoV-2 (COVID-19) RNA ALFREDO+probe Ql (Unsp spec) Negative Cannae [facility] [employer] Other COVID + FLU Quick Testing Negative [employer] Other GLUCOSE - 1HRon 10-23-2021 Glucose [Mass/Vol] 83 mg/dL Normal 74-106 [facility] Comment on above: Performed By: #### G LU1HR #### [facility] [address] [place] [address] Dr. Cyril Hendricks CHLAMYDIA/GONOCOCCUS ALFREDO (SW AB/URINE/PAPon 10-05-2021 Chlamydia trachomatis, ALFREDO Negative Normal Negative [facility] Comment on above: Performed By: #### C T/NGNA #### [facility] [address] [place] [address] Dr. Cyril Hendricks Neisseria gonorrhoeae, ALFREDO Negative Normal Negative [facility] Comment on above: Performed By: #### C T/NGNA #### [facility] [address] [place] [address] Dr. Cyril Hendricks VAGINITIS/VAGINOSIS DNA PROB Maurice 10-04-2021 Krista species Positive Abnormal Negative [facility] Comment on above: Performed By: #### H CVPCRR #### [facility] [address] [place] [address] Dr. Cyril Hendricks Gardnerella vaginalis Negative Normal Negative [facility] Comment on above: Performed By: #### H CVPCRR #### [facility] [address] [place] [address] Dr. Cyril Hendricks Trichomonas vaginalis Negative Normal Negative [facility] Comment on above: Performed By: #### H CVPCRR #### [facility] [address] [place] [address] Dr. Cyril Hendricks HEP B SURFACE ANTIGEN SCREEN on 10-03-2021 HBsAg Screen Negative Normal Negative [facility] Comment on above: Performed By: #### H CVPCRR #### [facility] [address] [place] [address] Dr. Cyril Hendricks HEPATITIS C VIRUS AB W/ REFL EX QUANTon 10-03-2021 HCV AB <0.1 Normal 0.0-0.9 [facility] Comment on above: Performed By: #### H CVPCRR #### [facility] [address] [place] [address] Dr. Cyril Hendricks Interpretation: Comment Normal [facility] Comment on above: Result Comment: Nega tive Not infected with HCV, unless recent infection is suspected or other evidence exists to indicate HCV infection. Performed By: #### H CVPCRR #### [facility] [address] [place] [address] Dr. Cyril Hendricks HIV 1 AND 2 WITH REFLEXon HIV Screen 4th Generation wRfx Non-Reactive Normal Non Reactive [facility] Comment on above: Result Comment: HIV Negative HIV-1/HIV-2 antibodies and HIV-1 p24 antigen were NOT detected. There is no laboratory evidence of HIV infection. Performed By: #### H IV12 #### [facility] [address] [place] [address] Dr. Cyril Hendricks RPR QUANTon 10-03-2021 Rapid Plasma Reagin, Quant Non-Reactive Normal NonRea<1:1 [facility] Comment on above: Result Comment: Juliette brito Note: This test does not meet current guidelines for screening and diagnosis of syphilis. This test is intended for following treatment response in patients being treated for syphilis infection. To screen for syphilis infection, a reflex cascade that includes both RPR and a treponema-specific assay should be utilized, such as Treponema pallidum (Syphilis) Screening [place] (422687) or Rapid Plasma Reagin (RPR) Test With Reflex to Quantitative RPR and Confirmatory Treponema pallidum Antibodies (392521). Performed By: #### U MICRO, UACSIND #### [facility] [address] [place] [address] Dr. Cyril Hendricks RUBELLA AB IGGon 10-03-2021 Rubella Antibodies, IgG <0.90 Critically low Immune > 0.99 [facility] Comment on above: Result Comment: Non- immune <0.90 Equivocal 0.90 - 0.99 Immune >0.99 Performed By: #### U MICRO, UACSIND #### [facility] [address] [place] [address] Dr. Cyril Hendricks CBC AUTO DIFFon 10-02-2021 BASO # 0.1 103/ul Normal 0.0-0.1 [facility] Comment on above: Performed By: #### U MICRO, UACSIND #### [facility] [address] [place] [address] Dr. Cyril Hendricks Basophils/100 WBC (Bld) 0.4 % Normal 0.2-2.0 [facility] Comment on above: Performed By: #### U MICRO, UACSIND #### [facility] [address] [place] [address] Dr. Cyril Hendricks EO # 0.1 103/ul Normal 0.0-0.7 [facility] Comment on above: Performed By: #### U MICRO, UACSIND #### [facility] [address] [place] [address] Dr. Cyril Hendricks Eosinophils/100 WBC (Bld) 1.1 % Normal 0.9-7.0 [facility] Comment on above: Performed By: #### U MICRO, UACSIND #### [facility] [address] [place] [address] Dr. Cyril Hendricks Erythrocyte distribution width (RBC) [Ratio] 13.5 % Normal 11.0-15.0 [facility] Comment on above: Performed By: #### U MICRO, UACSIND #### [facility] [address] [place] [address] Dr. Cyril Hendricks Hematocrit (Bld) [Volume fraction] 34.5 % Critically low 36.0-48.0 [facility] Comment on above: Performed By: #### U MICRO, UACSIND #### [facility] [address] [place] [address] Dr. Cyril Hendricks Hemoglobin (Bld) [Mass/Vol] 12.0 g/dL Normal 12.0-16.0 [facility] Comment on above: Performed By: #### U MICRO, UACSIND #### [facility] [address] [place] [address] Dr. Cyril Hendricks IG # 0.04 10e3/ul Critically high 0.00-0.03 [facility] Comment on above: Performed By: #### U MICRO, UACSIND #### [facility] [address] [place] [address] Dr. Cyril Hendricks IG % 0.3 % Normal 0.0-0.5 [facility] Comment on above: Performed By: #### U MICRO, UACSIND #### [facility] [address] [place] [address] Dr. Cyril Hendricks LYMPH # 2.6 103/ul Normal 1.2-3.8 [facility] Comment on above: Performed By: #### U MICRO, UACSIND #### [facility] [address] [place] [address] Dr. Cyril Hendricks Lymphocytes/100 WBC (Bld) 21.3 % Normal 20.5-60.0 [facility] Comment on above: Performed By: #### U MICRO, UACSIND #### [facility] [address] [address] [address] Cyril Hendricks MANUAL DIFF REQ NO Normal [facility] Comment on above: Performed By: #### U MICRO, UACSIND #### [facility] [address] [address] [address] Cyril Hendricks MCH (RBC) [Entitic mass] 32.5 pg Normal 26.7-34.0 [facility] Comment on above: Performed By: #### U MICRO, UACSIND #### [facility] [address] [place] [address] Dr. Cyril Hendricks MCHC (RBC) [Mass/Vol] 34.8 g/dL Normal 29.9-35.2 [facility] Comment on above: Performed By: #### U MICRO, UACSIND #### [facility] [address] [place] [address] Dr. Cyril Hendricks MCV (RBC) [Entitic vol] 93.5 fL Normal 81.0-99.0 [facility] Comment on above: Performed By: #### U MICRO, UACSIND #### [facility] [address] [place] [address] Dr. Cyril Hendricks MONO # 0.8 103/ul Normal 0.3-0.8 [facility] Comment on above: Performed By: #### U MICRO, UACSIND #### [facility] [address] [place] [address] Dr. Cyril Hendricks Monocytes/100 WBC (Bld) 6.2 % Normal 1.7-12.0 [facility] Comment on above: Performed By: #### U MICRO, UACSIND #### [facility] [address] [place] [address] Dr. Cyril Hendricks NEUT # 8.6 103/ul Critically high 1.4-6.5 [facility] Comment on above: Performed By: #### U MICRO, UACSIND #### [facility] [address] [place] [address] Dr. Cyril Hendricks Neutrophils/100 WBC (Bld) 70.7 % Normal 43.0-75.0 [facility] Comment on above: Performed By: #### U MICRO, UACSIND #### [facility] [address] [address] [address] Cyril Hendricks Platelet mean volume (Bld) [Entitic vol] 9.1 fL Critically low 9.5-13.5 [facility] Comment on above: Performed By: #### U MICRO, UACSIND #### [facility] [address] [address] [address] Cyril Hendricks PLT 257 103/ul Normal 150-450 [facility] Comment on above: Performed By: #### U MICRO, UACSIND #### [facility] [address] [address] [address] Cyril Hendricks RBC 3.69 106/ul Critically low 4.20-5.40 [facility] Comment on above: Performed By: #### U MICRO, UACSIND #### [facility] [address] [address] [address] Cyril Hnedricks WBC 12.2 103/ul Critically high 4.0-11.0 [facility] Comment on above: Performed By: #### U MICRO, UACSIND #### [facility] [address] [address] [address] Cyril Hendricks CULTURE URINEon 10-02-2021 CULTURE URINE Culture Observations: MODERATE GROWTH OF MIXED GENITAL DRAGAN. NO POTENTIAL PATHOGENS SEEN. Normal [facility] Comment on above: Performed By: #### H CVPCRR #### [facility] [address] [place] [address] Dr. Cyril Hendricks GLYCOHEMOGLOBIN A1Con 2021 ADA RECOMMENDATION SEE BELOW Normal [facility] Comment on above: Result Comment: ADA RECOMMENDED LIMIT 4.0 - 6.0 ADA THERAPEUTIC TARGET < 7.0 ACTION SUGGESTED > 7.0 Performed By: #### H CVPCRR #### [facility] [address] [place] [address] Dr. Cyril Hendricks Glucose [Mass/Vol] 80 mg/dL Normal [facility] Comment on above: Performed By: #### H CVPCRR #### [facility] [address] [place] [address] Dr. Cyril Hendricks HbA1c (Bld) [Mass fraction] 4.4 % Critically low 4.5-6.2 [facility] Comment on above: Performed By: #### H CVPCRR #### [facility] [address] [address] [address] Cyril Hendricks TYPE AND SCREENon 10-02-2021 TYPE AND SCREEN Negative Normal [facility] Comment on above: Performed By: #### H CVPCRR #### [facility] [address] [address] [address] Cyril Hendricks US PREG PLACENTAon 2 [...] (44% by ultrasound, 29% by expected) FL/AC: [id number] FL/BPD: 0.567156 HC/AC: 1.224764 GESTATIONAL AGE: Age by EDC: 21 weeks, 3 days NOY by EDC: 01/12/2022 Age by current US: 21 weeks, 1 day NOY by current US: 01/14/2022 IMPRESSION: 1. Single live intrauterine with growth detailed above. 2. Posterior, low-lying placenta. Electronically authenticated by: MARS FRANKEL Date: 2021-09-04 16:30 Normal [facility] Vital Signs Date Time Vital Sign Value Performing Clinician Facility 02-03-2024 09:23-0400 Body temperature 97.88 [degF] Siva Schulte [facility] 02-03-2024 09:23-0400 Diastolic blood pressure 70 mm[Hg] Siva Schulte [facility] 02-03-2024 09:23-0400 Heart rate 85 /min Siva Schulte [facility] 02-03-2024 09:23-0400 Respiratory rate 18 /min Siva Schulte [facility] 02-03-2024 09:23-0400 SaO2% (BldA) [Mass fraction] 99 % Siva Schulte [facility] 02-03-2024 09:23-0400 Systolic blood pressure 106 mm[Hg] Siva Schulte [facility] 09-23-2023 09:16-0400 Body temperature 98.42 [degF] Wil Chandra [facility] 09-23-2023 09:16-0400 Diastolic blood pressure 68 mm[Hg] Wil Chandra [facility] 09-23-2023 09:16-0400 Heart rate 82 /min Wil Chandra [facility] 09-23-2023 09:16-0400 Respiratory rate 18 /min Wil Chandra [facility] 09-23-2023 09:16-0400 SaO2% (BldA) [Mass fraction] 97 % Wil Chandra [facility] 09-23-2023 09:16-0400 Systolic blood pressure 98 mm[Hg] Wil Chandra [facility] 08-27-2023 12:24-0400 Diastolic blood pressure 61 mm[Hg] [facility] 08-27-2023 12:24-0400 Heart rate 77 /min [facility] 08-27-2023 12:24-0400 Mean blood pressure 72 mm[Hg] [facility] 08-27-2023 12:24-0400 Respiratory rate 16 /min [facility] [facility] 08-27-2023 12:24-0400 SaO2% (BldA) [Mass fraction] 97 % [facility] 08-27-2023 12:24-0400 Systolic blood pressure 93 mm[Hg] [facility] 08-27-2023 11:30-0400 Diastolic blood pressure 69 mm[Hg] [facility] 08-27-2023 11:30-0400 Heart rate 74 /min [facility] 08-27-2023 11:30-0400 Mean blood pressure 82 mm[Hg] [facility] 08-27-2023 11:30-0400 Respiratory rate 16 /min [facility] 08-27-2023 11:30-0400 SaO2% (BldA) [Mass fraction] 99 % [facility] 08-27-2023 11:30-0400 Systolic blood pressure 107 mm[Hg] [facility] 08-27-2023 10:30-0400 Diastolic blood pressure 62 mm[Hg] [facility] 08-27-2023 10:30-0400 Heart rate 91 /min [facility] 08-27-2023 10:30-0400 Mean blood pressure 77 mm[Hg] [facility] 08-27-2023 10:30-0400 Respiratory rate 18 /min [facility] 08-27-2023 10:30-0400 SaO2% (BldA) [Mass fraction] 100 % [facility] 08-27-2023 10:30-0400 Systolic blood pressure 107 mm[Hg] [facility] 08-27-2023 09:41-0400 Body temperature 98.6 [degF] [facility] 08-27-2023 09:41-0400 Heart rate 80 /min [facility] 01-04-2023 00:03-0400 Body temperature 98.78 [degF] Siva Schulte [facility] 01-04-2023 00:03-0400 Diastolic blood pressure 54 mm[Hg] Siva Schulte [facility] 01-04-2023 00:03-0400 Heart rate 97 /min Siva Schulte [facility] 01-04-2023 00:03-0400 Mean blood pressure 70 mm[Hg] Siva Schulte [facility] 01-04-2023 00:03-0400 Respiratory rate 18 /min Siva Schulte [facility] 01-04-2023 00:03-0400 SaO2% (BldA) [Mass fraction] 94 % Siva Schulte [facility] 01-04-2023 00:03-0400 Systolic blood pressure 102 mm[Hg] Siva Eris [facility] 01-03-2023 23:00-0400 Body temperature 100.04 [degF] Siva Eris [facility] 01-03-2023 23:00-0400 Diastolic blood pressure 62 mm[Hg] Siva Eris [facility] 01-03-2023 23:00-0400 Heart rate 100 /min Siva Eris [facility] 01-03-2023 23:00-0400 Mean blood pressure 75 mm[Hg] Siva Eris [facility] 01-03-2023 23:00-0400 Systolic blood pressure 100 mm[Hg] Siva Eris [facility] 01-03-2023 22:42-0400 Body temperature 100.76 [degF] Siva Eris [facility] 01-03-2023 22:42-0400 Diastolic blood pressure 59 mm[Hg] Siva Eris [facility] 01-03-2023 22:42-0400 Heart rate 105 /min Siva Eris [facility] 01-03-2023 22:42-0400 Respiratory rate 20 /min Siva Schulte [facility] 01-03-2023 22:42-0400 SaO2% (BldA) [Mass fraction] 99 % Siva Schulte [facility] 01-03-2023 22:42-0400 Systolic blood pressure 96 mm[Hg] Siva Eris [facility] 10-02-2022 21:29-0400 Diastolic blood pressure 72 mm[Hg] PHYSICIAN NO [facility] 10-02-2022 21:29-0400 Heart rate 94 /min PHYSICIAN NO [facility] 10-02-2022 21:29-0400 Respiratory rate 18 /min PHYSICIAN NO [facility] 10-02-2022 21:29-0400 SaO2% (BldA) [Mass fraction] 98 % PHYSICIAN NO [facility] 10-02-2022 21:29-0400 Systolic blood pressure 141 mm[Hg] PHYSICIAN NO [facility] 10-02-2022 17:03-0400 Body height 170.18 cm PHYSICIAN NO [facility] 10-02-2022 17:03-0400 Body temperature 98.3 [degF] PHYSICIAN NO [facility] 10-02-2022 17:03-0400 Body weight 76.4 kg PHYSICIAN NO [facility] 09-25-2022 13:25-0400 Body height 170.18 cm Viet Yuri Other [employer] Other 09-25-2022 13:25-0400 Body mass index (BMI) [Ratio] 26.62 kg/m2 Viet Welch Other [employer] Other 09-25-2022 13:25-0400 Body temperature 98.2 [degF] Viet Welch Other [employer] Other 09-25-2022 13:25-0400 Body weight 77.11 kg Viet Welhc Other [employer] Other 09-25-2022 13:25-0400 Diastolic blood pressure 68 mm[Hg] Viet Welch Other [employer] Other 09-25-2022 13:25-0400 Respiratory rate 18 /min Viet Welch Other [employer] Other 09-25-2022 13:25-0400 SaO2% (BldA) [Mass fraction] 98 % Viet Welch Other [facility] [employer] Other 09-25-2022 13:25-0400 Systolic blood pressure 107 mm[Hg] Viet Welch Other [facility] [employer] Other 09-06-2022 13:54-0400 Diastolic blood pressure 72 mm[Hg] Wil Corazon [facility] 09-06-2022 13:54-0400 Heart rate 60 /min Wil Corazon [facility] 09-06-2022 13:54-0400 Respiratory rate 16 /min Wil Corazon [facility] 09-06-2022 13:54-0400 SaO2% (BldA) [Mass fraction] 100 % Wil Corazon [facility] 09-06-2022 13:54-0400 Systolic blood pressure 103 mm[Hg] Wil Corazon [facility] 09-06-2022 11:41-0400 Diastolic blood pressure 65 mm[Hg] Wil Corazon [facility] 09-06-2022 11:41-0400 Heart rate 58 /min Wil Corazon [facility] 09-06-2022 11:41-0400 Mean blood pressure 77 mm[Hg] Wil Corazon [facility] 09-06-2022 11:41-0400 Respiratory rate 16 /min Wil Corazon [facility] 09-06-2022 11:41-0400 SaO2% (BldA) [Mass fraction] 100 % Wil Corazon [facility] 09-06-2022 11:41-0400 Systolic blood pressure 102 mm[Hg] Wil Corazon [facility] 09-06-2022 10:42-0400 Body temperature 98.24 [degF] Wil Chandra [facility] 09-06-2022 10:42-0400 bodymassindex 1.17 Wil Chandra [facility] Comment on above: Result Comment: [facility] 10:42-0400 Diastolic blood pressure 71 mm[Hg] Wil Jollye [facility] 09-06-2022 10:42-0400 Heart rate 73 /min Wil Chandra [facility] 09-06-2022 10:42-0400 Height/Length Percentile 84.89 Wil Chandra [facility] Comment on above: Result Comment: ^~:![facility] 09-06-2022 10:42-0400 Height/Length Z-Score 1.03 Wil Chandra [facility] Comment on above: Result Comment: ^~:![facility] 09-06-2022 10:42-0400 Respiratory rate 16 /min Wil Chandra [facility] 09-06-2022 10:42-0400 SaO2% (BldA) [Mass fraction] 98 % Wil Chandra [facility] 09-06-2022 10:42-0400 Systolic blood pressure 111 mm[Hg] Wil Chandra [facility] 09-06-2022 10:42-0400 weight 1.47 Wil Jollye [facility] Comment on above: Result Comment: ^[facility] 09-06-2022 10:42-0400 Weight Percentile 92.90 % Wil Chandra [facility] Comment on above: Result Comment: ^~:!Percentile Source -[facility] 08-14-2022 21:30-0500 Diastolic blood pressure 79 mm[Hg] Bob Llanos [facility] 08-14-2022 21:30-0500 Heart rate 87 /min Bob Llanos [facility] 08-14-2022 21:30-0500 Mean blood pressure 93 mm[Hg] Bob Llanos [facility] 08-14-2022 21:30-0500 Nursing Progress Note Reason Other: pt to [place] via stretcher at this time. Bob Llanos [facility] 08-14-2022 21:30-0500 Respiratory rate 16 /min Bob Llanos [facility] 08-14-2022 21:30-0500 SaO2% (BldA) [Mass fraction] 100 % Bob Llanos [facility] 08-14-2022 21:30-0500 Systolic blood pressure 120 mm[Hg] Bob Llanos [facility] 08-14-2022 19:20-0500 Body temperature 98.96 [degF] Bob Llanos [facility] 08-14-2022 19:20-0500 bodymassindex 1.17 Bob Llanos [facility] Comment on above: Result Comment: ^~:!ZScore Source -[facility] 08-14-2022 19:20-0500 Diastolic blood pressure 61 mm[Hg] Bob Llanos [facility] 08-14-2022 19:20-0500 Heart rate 98 /min Bob Llanos [facility] 08-14-2022 19:20-0500 Height/Length Percentile 84.91 Bob Llanos [facility] Comment on above: Result Comment: ^~:!Percentile Source -[facility] 08-14-2022 19:20-0500 Height/Length Z-Score 1.03 Bob Llanos [facility] Comment on above: Result Comment: ^~:![facility] 08-14-2022 19:20-0500 Respiratory rate 16 /min Bob Llanos [facility] 08-14-2022 19:20-0500 SaO2% (BldA) [Mass fraction] 99 % Bob Llanos [facility] 08-14-2022 19:20-0500 Systolic blood pressure 114 mm[Hg] Bob Llanos [facility] 08-14-2022 19:20-0500 weight 1.47 Bob Llanos [facility] Comment on above: Result Comment: ^~:![email or web address] [facility] 08-14-2022 19:20-0500 Weight Percentile 92.94 % Bob Llanos [facility] Comment on above: Result Comment: ^~:!Percentile Source -[facility] 06-24-2022 13:30-0500 Body height 170.18 cm Viet Welch Other [employer] Other 06-24-2022 13:30-0500 Body mass index (BMI) [Ratio] 26.62 kg/m2 Viet Welch Other [employer] Other 06-24-2022 13:30-0500 Body temperature 97.8 [degF] Viet Welch Other [employer] Other 06-24-2022 13:30-0500 Body weight 77.11 kg Viet Welch Other [employer] Other 06-24-2022 13:30-0500 Diastolic blood pressure 63 mm[Hg] Viet Welch Other [employer] Other 06-24-2022 13:30-0500 Respiratory rate 18 /min Viet Welch Other [employer] Other 06-24-2022 13:30-0500 SaO2% (BldA) [Mass fraction] 98 % Viet Welch Other [employer] Other 06-24-2022 13:30-0500 Systolic blood pressure 97 mm[Hg] Viet Welch Other [employer] Other 11-13-2021 14:05-0400 Body height 170.18 cm Michael Clarice Other [employer] Other 11-13-2021 14:05-0400 Body mass index (BMI) [Ratio] 26.62 kg/m2 Michael Oneil Other [employer] Other 11-13-2021 14:05-0400 Body temperature 98.4 [degF] Michael Oneil Other [employer] Other 11-13-2021 14:05-0400 Body weight 77.11 kg Michael Oneil Other [employer] Other 11-13-2021 14:05-0400 Respiratory rate 18 /min Michael Oneil Other [employer] Other 11-13-2021 14:05-0400 SaO2% (BldA) [Mass fraction] 98 % Michael Oneil Other [employer] Other 11-06-2021 15:45-0400 Body height Kendra Witt Other [employer] Other 11-06-2021 15:45-0400 Body mass index (BMI) [Ratio] 26.62 kg/m2 Kendra Witt Other [employer] Other 11-06-2021 15:45-0400 Body weight 77.11 kg Kendra Witt Other [employer] Other 11-06-2021 15:45-0400 Respiratory rate 20 /min Kendra Witt Other [employer] Other 11-06-2021 15:45-0400 SaO2% (BldA) [Mass fraction] 98 % Kendra Witt Other [employer] Other Encounters Encounter Date Encounter Type Care Provider Facility Start: 02-03-2024 End: 02-03-2024 Emergency department patient visit Siva Schulte [facility] Start: 01-26-2024 End: 01-26-2024 ambulatory JUVENAL MIRI Not Available Start: 12-29-2023 End: 12-29-2023 ambulatory GONSALO CORRAL Not Available Start: 12-22-2023 End: 12-22-2023 ambulatory JUVENAL R [facility] Start: 12-01-2023 End: 12-01-2023 ambulatory JUVENAL MIRI Not Available Start: 11-10-2023 End: 11-10-2023 ambulatory JUVENAL R [facility] Start: 10-27-2023 End: 10-27-2023 ambulatory GONSALO ELLIS Not Available Start: 09-29-2023 End: 09-29-2023 ambulatory JUVENAL MIRI Not Available Start: 09-23-2023 End: 09-23-2023 Emergency department patient visit Wil Corazon [facility] Start: 09-04-2023 End: 09-04-2023 ambulatory JUVENAL THORPE Not Available Start: 08-27-2023 End: 08-27-2023 Emergency department patient visit Emily Harper [facility] Start: 08-18-2023 End: 08-18-2023 ambulatory SELAM ELSA Facility[facility] Start: 01-03-2023 End: 01-04-2023 Emergency department patient visit Siva Schulte [facility] Start: 12-12-2022 End: 12-12-2022 ambulatory Kenneth Mills Other [employer] Other Start: 12-12-2022 Telephone encounter Kenneth Mills [facility] [place] Start: 10-02-2022 End: 10-02-2022 Emergency department patient visit Jose Silverman Facility:[facility] Start: 10-02-2022 End: 10-02-2022 Emergency department patient visit PHYSICIAN SJ LERNER [facility] Work Phone: Start: 09-25-2022 End: 09-25-2022 ambulatory Viet Welch Other [facility] [employer] Other Start: 09-25-2022 Office outpatient visit 15 minutes Viet Welch [facility] Start: 09-06-2022 End: 09-06-2022 Emergency department patient visit Wil Chandra [facility] Start: 08-14-2022 End: 08-14-2022 Emergency department patient visit Bob Llanos [facility] Start: 07-11-2022 End: 07-11-2022 ambulatory ROSEANN CORRAL Facility:[facility] Start: 06-24-2022 End: 06-24-2022 ambulatory Viet Welch Other [employer] Other Start: 06-24-2022 Office outpatient visit 15 minutes Viet Welch [facility] Start: 01-11-2022 End: 01-11-[address] EZEQUIEL CURTIS Facility:[facility] Start: 01-07-2022 End: 01-09-2022 Evaluation and management of inpatient DR RENATA GEORGES Facility:[facility] Start: 12-29-2021 End: 12-29-[address] JUVENAL THORPE Facility:[facility] Start: 12-19-2021 End: 12-19-[address] JUVENAL THORPE Facility:[facility] Start: 12-12-2021 End: 12-13-2021 ambulatory JUAQUIN SEWELL [facility] Start: 12-12-2021 End: 12-12-2021 Subsequent hospital visit by physician [facility] Start: 11-27-2021 End: 11-27-[address] SOFIA KABA Facility:[facility] Start: 11-13-2021 End: 11-13-2021 ambulatory Michael Oneil Other [employer] Other Start: 11-13-2021 Office outpatient visit 15 minutes Michael Oneil [facility] Start: 11-06-2021 End: 11-06-2021 ambulatory Kendra Witt Other [employer] Other Start: 11-06-2021 Office outpatient visit 25 minutes Kendra Witt [facility] Start: 10-23-2021 End: 10-24-[address] [...] Urine by Culture Urine Culture [facility] Start: 02-07-2022 Influenza vaccination Flu vaccine (# 1) [facility] Start: 01-09-2022 End: 01-09-2022 Patient encounter procedure 01/09/2022 Routine Perinatology [facility] Start: 01-02-2022 End: 01-02-2022 Patient encounter procedure 01/02/2022 Routine Perinatology [facility] Start: 12-26-2021 End: 12-26-2021 Patient encounter procedure 12/26/2021 Routine Perinatology [facility] Start: 12-20-2021 End: 12-20-2021 Patient encounter procedure 12/20/2021 Routine Perinatology [facility] Start: 2021 DTaP/Tdap/Td vaccine (1 - Tdap) DTaP/Tdap/Td vaccine (1 - Tdap) [facility] Start: 2020 Hepatitis C screening Hepatitis C sc reen [facility] Start: 2018 Screening for Chlamy nazanin trachomatis Chlamydia screen [facility] Start: 2017 HIV screening HIV screen [facility] Start: 2014 Depression Monitoring Depression Mon itoring [facility] Start: 2013 HPV vaccine (1 - 2-d ose series) HPV vaccine (1 - 2-dose series) [employer] [facility] Start: 09-16-2007 COVID-19 Vaccine (1) COVID-19 Vaccin e (1) [employer] Start: 09-16-2003 Varicella vaccine (1 of 2 - 2-dose childhood series) Varicella vaccine (1 of 2 - 2-dose childhood series) [facility] Patient Education Depression, Adult ED [facility] Work Phone: Patient referral [facility] Work Phone: End: 12-12-2021 Sjogrens syndrome-A extractable nuclear antibody [employer] [facility] Work Phone: Comment on above: Once for 1 Occurrenc es starting 12/12/2021 until 12/12/2021 End: 12-12-2021 Sjogrens syndrome-B extractable nuclear antibody [facility] Work Phone: Comment on above: Once for 1 Occurrenc es starting 12/12/2021 until 12/12/2021 Immunizations Immunization Date Immunization Notes Care Provider Simona galarza NEGATED: Highlighted row has not occurred!11-05-2019 influenza, injectable, quadrivalent, contains preservative Kendra Witt Other [employer] Other NEGATED: Highlighted row has not occurred!04-10-2019 influenza virus vaccine, unspecified formulation Bob Llanos [facility] Payers Date Payer Category Payer Self-pay [id number] 2002 Unknown [id number] 2.16. [id number] 2002 Unknown [id number] 2.16.84 0.1.494435.3.579.2.593 2002 Unknown [id number] 2.16.84 0.1.217921.3.579.2.593 2002 Unknown [id number] 2.16.84 0.1.242030.3.579.2.593 2002 Unknown [id number] 2.16.84 0.1.340426.3.579.2.593 2002 Unknown [id number] 2.16.84 0.1.331157.3.579.2.593 2002 Unknown [id number] 2.16.84 0.1.382107.3.579.2.593 2002 Unknown [id number] 2.16.84 0.1.507825.3.579.2.593 2002 Unknown [id number] 2.16.84 0.1.653399.3.579.2.593 2002 Unknown [id number] 2.16.84 0.1.546713.3.579.2.593 2002 Unknown [id number] 2.16.84 0.1.309445.3.579.2.593 2002 Unknown [id number] 2.16.84 0.1.408895.3.579.2.593 2002 Unknown [id number] 2.16.8 40.1.423937.3.579.2.1286 2002 Unknown [id number] 2.16.8 40.1.153271.3.579.2.1286 2002 Unknown [id number] 2.16.8 40.1.974516.3.579.2.1286 2002 Unknown [id number] 2.16.84 0.1.160474.3.579.2.1259 2002 Unknown [id number] 2.16.84 0.1.785627.3.579.2.1259 2002 Unknown [id number] 2.16.84 0.1.126118.3.579.2.1259 2002 Unknown [id number] 2.16.84 0.1.328009.3.579.2.1259 2002 Unknown [id number] 2.16.84 0.1.811721.3.579.2.1259 2002 Unknown [id number] 2.16.84 0.1.047201.3.579.2.1259 2002 Unknown [id number] 2.16.8 40.1.456438.3.579.2.727 2002 Unknown [id number] 2.16.8 40.1.727270.3.579.2.727 2002 Unknown [id number] 2.16.8 40.1.621709.3.579.2.727 2002 Unknown [id number] 2.16.8 40.1.478855.3.579.2.727 2002 Unknown [id number] 2.16.8 40.1.063488.3.579.2.727 1959 Unknown [id number] 2.1 6.840.1.298506.19 1959 Unknown [id number] Unknown [id number] 2.16.8 40.1.245510.3.579.2.531 Social History Date Type Detail Facility Sex Assigned At [facility] Start: 11-28-2021 Tobacco smoking stat [facility] Never smoked tobacco [employer] Phone: Start: 11-28-2021 Tobacco use and exposure Smokeless tobacco non-user [employer] Phone: Start: 12-12-2021 Alcohol intake Ex-drinker (finding) [employer] Phone: Start: 12-12-2021 Tobacco Comment no longer vapes [employer] Phone: Start: 04-21-2021 [employer] Phone: Start: 2002 Sex Assigned At Not on file B ON [employer] Phone: Tobacco Current vaping o r e-cigarette use Smokeless Tobacco Use:. Vaping [facility] Tobacco smoking status No Smokin g Status Entered [facility] Start: 10-02-2022 Tobacco smoking stat us NHIS Smoker (finding) [facility] Start: 2002 Sex Assigned At Female F [facility] Functional Status Date Assessment Result Facility 02-03-2024 Functional Status N/A [facility] 09-23-2023 Functional Status N/A [facility] 08-27-2023 Functional Status N/A [facility] 01-03-2023 Functional Status N/A [facility] 09-06-2022 Functional Status N/A [facility] 08-14-2022 Functional Status N/A [facility] Clinical Notes 11-06-2021 to 02-03-2024 Note Date & Type Note Facility 02-03-2024 Evaluation + Plan note Extrac ruby from: Title:ED Note Author:Duc Swanson PA-C te:02/03/24 Sore throat (J02.9: Acute ph aryngitis, unspecified) Viral URI (J06.9: Acute upper respiratory infection, unspecified) Orders: Group A Strep by PCR Rapid Strep w/rfx Diagnostic Tests Pending * Group A Strep by PCR 02/03/24 [facility] 08-27-2024 Hospital Discharge instructions Patient Education [...] medicines to help relieve symptoms, such as: Ehbl-brw-dgkvgye cold medicines. Cough suppressants. Coughing is a [...] and other clear broths. General instructions Take nfms-oru-upmgqqy and prescription medicines only as told by [...] and water are not available, use hand copyright expert. Avoid touching your mouth, face, eyes, or [...] provider. Document Revised: 12/26/2021 Document Reviewed: 12/26/2021 [employer] Patient Education 2022 [employer]. Follow Up Care 02/03/2024 09:23:13 With:Juvenal THORPE Address: [address] , [place] [address]- Business (1) When:02/06/2024 11:12:27 With:SELAM HUNTER Address: [place] [address]- Business (1) When:02/06/2024 11:12:21 [facility] 08-27-2024 NoteED Patient Education Note Infectious [...] to help relieve symptoms, such as: ? Txbo-cpc-pvlejyt cold medicines. ? Cough suppressants. Coughing is [...] other clear broths. General instructions ? Take icek-zzh-dpjuqry and prescription medicines only as told by [...] soap and water are not available,use hand copyright expert. ? Avoid touching your mouth, face, eyes, [...] Mood. These symptoms m (more content not included)...[facility] 09-23-2023 Hospital Discharge instructions Patient Education [...] provider. Document Revised: 02/19/2021 Document Reviewed: 02/19/2021 [employer] Patient Education 2022 [employer]. Follow Up Care 09/23/2023 09:11:45 With:Juvenal THORPE Address: [address] [place] [address]- Business (1) When:09/26/2023 11:44:07 [facility]03-20-2024 Hospital Discharge instructions Patient Education 08/27/2023 [...] provider. Document Revised: 01/09/2022 Document Reviewed: 01/09/2022 [employer] Patient Education 2022 [employer]. 08/27/2023 12:34:16 Urinary Tract Infection, Adult, Maab-pw-Ycfx Urinary Tract Infection, Adult A urinary tract [...] Follow these instructions at home: Medicines Take hvac-zvs-iklqijr and prescription medicines only as told by [...] provider. Document Revised: 01/05/2021 Document Reviewed: 01/05/2021 [employer] Patient Education 2022 [employer] 08/27/2023 12:34:16 Subchorionic Hematoma Subchorionic Hematoma [...] provider. Document Revised: 02/19/2021 Document Reviewed: 02/19/2021 [employer] Patient Education 2022 [employer]. Follow Up Care 08/27/2023 09:39:16 With:Juvenal THORPE Address: [address] , [place] [address] Business (1) When:08/30/2023 12:05:10 With:SELAM HUNTER Address: [facility] [place] [address] Business (1) When:Within 3 Day(s) [facility]03-20-2024 Evaluation + Plan noteExtracted from: Title:ED [...] day(s), # 28 cap(s), Refills(s) 0, Pharmacy: [facility], 170, cm, 08/27/23 9:49:00 EDT, Height/Length Dosing, 78.7, kg, 08/27/23 9:49:00 EDT, Weight Dosing ABO/Rh Basic Metabolic Panel Beta hCG Quantitative CBC w/ Auto Diff eGFR Extra Blue Tube Extra SST Tube UA with Cult Rflx Urine Culture US 1st Trimester US Transvaginal Diagnostic Tests Pending * Urine Culture 08/27/23 [facility]07-29-2023 Hospital Discharge instructions Patient Education 01/04/2023 00:13:01 Pharyngitis, Nsgy-lv-Xfsh Pharyngitis Pharyngitis is a sore throat (pharynx). [...] Follow these instructions at home: Medicines Take qwwq-jlw-nijxdpo and prescription medicines only as told by [...] and water are not available, use hand copyright expert. Do not touch your eyes, nose, or [...] provider. Document Revised: 08/22/2021 Document Reviewed: 08/22/2021 [employer] Patient Education 2022 [employer]. Follow Up Care 01/03/2023 22:32:55 With:Thony Carl Address: [address] [place] [address] [place] [address] [facility] (1) When:01/06/2023 Comments:Follow-up with your primary care provider in 3 to 5 days. If symptoms worsen, do not improve, or new symptoms arise please report back to emergency department for further evaluation. [facility]07-28-2023 Evaluation + Plan noteExtracted from: Title:ED [...] q12hr, # 20 cap(s), Refills(s) 0, [facility], [facility], cm, 01/03/23 22:44:00 EDT, Height/Length Dosing, 75.3, kg, 01/03/23 22:44:00 EDT, Weight Dosing ondansetron, 4 mg = 1 tab(s), Oral, q8hr, PRN Nausea/Vomiting, # 12 tab(s), Refills(s) 0, [facility], 170, cm, 01/03/23 22:44:00 EDT, Height/Length Dosing, 75.3, kg, 01/03/23 22:44:00 EDT, Weight Dosing ondansetron, 12 mg = 3 tab(s), Tab-Dis, Oral, Once, Stop date 01/03/23 23:45:00 EDT, STAT, Start date 01/03/23 23:45:00 EDT, 01/03/23 23:45:00 EDT Automated Diff Basic Metabolic Panel Beta hCG Quantitative CBC w/ Auto Diff eGFR Hepatic Function Panel Lipase Level [facility]04-19-2023 Evaluation note* Encounter Date Diagnosis Assessment [...] of symptoms occur by end of treatment. [facility] Other 03-31-2023 Hospital Discharge instructions Patient Education [...] Follow these instructions at home: Medicines Take ybzh-vpy-obpaitp and prescription medicines only as told by [...] important. Where to find more information [employer]: www.acog.org [place] [...] Document Reviewed: 07/01/2017 Elsevier Patient Education 2019 [employer] Follow Up Care 09/06/2022 10:42:16 With:Juvenal THORPE Address: [address] , [place] [address]- Business (1) When:09/09/2022 13:46:05 [facility]03-09-2023 Hospital Discharge instructions Patient Education 08/14/2022 22:12:46 Abdominal Pain During , Ztjp-uh-Kfbb Abdominal Pain During Belly (abdominal) pain is [...] keep your pee (urine) pale yellow. Take unkn-sco-irwmevi and prescription medicines only as told by [...] Document Reviewed: 08/28/2017 Elsevier Patient Education 2020 [employer] 08/14/2022 22:12:46 Abdominal Pain, Adult, Mclz-at-Qxzk Abdominal Pain, Adult Many things can cause belly (abdominal) pain. Most times, belly pain is not dangerous. Many cases of belly pain can be watched and treated at home. Sometimes, though, belly pain is serious. Your doctor will try to find the cause of your belly pain. Follow these instructions at home: Medicines Take vusl-xxd-lunlnoc and prescription medicines only as told by [...] your belly pain for any changes. Take zcsv-xqs-fmpykry and prescription medicines only as told by [...] Document Reviewed: 10/04/2019 Elsevier Patient Education 2020 [employer] Follow Up Care 08/14/2022 18:41:38 With:Juvenal THORPE Address: [address] , [place] [address]- Business (1) When:08/17/2022 Comments:Follow-up with Dr. Thorpe for further evaluation of your . With:Juventino Carbajal Address: [address] [place] [phone]- When:08/17/2022 Comments:Follow-up with your primary care provider in 3 to 5 days. If symptoms worsen, do not improve, or new symptoms arise please report back to emergency department for further evaluation. [facility]01-16-2023 Evaluation note* Encounter Date Diagnosis Assessment [...] return precautions. Jun, Cough (ICD-10 - R05.9) [facility] Other 06-07-2022 Evaluation note* Encounter Date Diagnosis [...] Pt understood and agreed to tx plan. [facility] Other 05-31-2022 Evaluation note* Encounter Date Diagnosis [...] condition October, Sore throat (ICD-10 - J02.9) [facility] [facility] Other Evaluation + Plan note No data available for this section [facility] information available [facility] Work Phone: Evaluation noteNo InformationN[facility] [facility] Other History general Narrative - Reported* Type Description Date Medical History fx lt elbow at age 7 Surgical History surgical repair of left elbow f racture at age 7 Hospitalization History see surgical hx [employer] Other Progress note No data available for this section [facility] Summary Purpose Family History No Family [...] section and content) DATE CREATED AUTHOR 01/05/2022 [facility] DATE CREATED AUTHOR AUTHOR'S ORGANIZ ATION [facility]/15/2022 [facility] DATE CREATED AUTHOR AUTHOR'S ORGANIZ ATION 10/10/2022 [facility] DATE CREATED AUTHOR AUTHOR'S ORGANIZ ATION 12/26/2023 [facility] DATE CREATED AUTHOR AUTHOR'S ORGANIZ ATION 01/27/2024 [facility] DATE CREATED AUTHOR AUTHOR'S ORGANIZ ATION [facility]/05/2024 [facility] DATE CREATED AUTHOR AUTHOR'S ORGANIZ ATION 02/06/2024 [facility] Care Teams (unrecognized sec tion and content) Personnel Name: SELAM HUNTER CNP Address: Address: [address] [place] [address] Team Status: Active Member Role Status Dates [...] BE BASED ON THE PRIMARY CLINICAL RECORDS. [facility] provides no warranty or guarantee of the accuracy or completeness of information in this document.
[2024-02-16 13:08] VITALS: BP 106/51; PULSE 93
--- NOTE | 2024-02-16 13:10 | US_ITS ---
[address] [address] Patient Name: KAILYN ACKERMAN MRN: [id number] date: 2000 Sex: F Assigned Patient Location: US Current Patient Location: US Accession/Order Number: [id number] Exam Date: 02/16/2024 13:15 Report Date: 02/16/2024 14:47 At the request of: VAL ANG Procedure: US OB BPP w non-stress EXAMINATION: US OB BPP w non-stress HISTORY: Circumvallate placenta COMPARISON: No relevant comparison available. TECHNIQUE: Ultrasound biophysical profile was performed in the radiology department. non-reactive stress testing was performed by nursing staff in the birthing center. FINDINGS: BREATHING MOVEMENTS: 2 GROSS BODY MOVEMENTS: 2 TONE: 2 QUALITATIVE AMNIOTIC FLUID VOLUME: 2 PRESENTATION: CEPHALIC HEART RATE: 139.90 bpm AMNIOTIC FLUID VOLUME: 12.9 cm GESTATIONAL AGE: 31 weeks 4 days US/US OB BPP w non-stress IMPRESSION: Total biophysical profile score: 8 Electronically authenticated by: SOFIA KABA Date: 02/16/2024 14:47
--- NOTE | 2024-02-16 13:10 | US_ITS ---
[address] [address] Patient Name: KAILYN ACKERMAN MRN: [id number] date: 2000 Sex: F Assigned Patient Location: Current Patient Location: Accession/Order Number: [id number] Exam Date: 02/16/2024 13:15 Report Date: 02/16/2024 15:04 At the request of: VAL ANG Procedure: US OB umbilical artery EXAMINATION: US OB umbilical artery HISTORY: Circumvallate placenta COMPARISON: No relevant comparison available. TECHNIQUE: Duplex Doppler evaluation of the umbilical arteries. FINDINGS: Heart rate: 152 Proximal umbilical artery PSV/EDV: 104/29 cm/s. Resistive index 0.72. Ratio 3.6. Mid umbilical artery PSV/EDV: 79/22 cm/s. Resistive index 0.72. Ratio 3.5 Distal umbilical artery PSV/EDV: 59/21 cm/s. Resistive index 0.65. Ratio 2.8 Forward flow identified throughout diastole Clinical age: 31 weeks 4 days Clinical NOY: 04/15/2024: US/US OB umbilical artery IMPRESSION: Normal exam. Class 0 Umbilical Artery: Class 0 = Normal umbilical artery blood velocity Class I = increased RI or PI, but still forward flow in diastole Class II = Absent end diastolic flow (AEDF) Class III = Reversal of end diastolic flow (REDF) Resistive Index (RI)<1 Systolic/Diastolic ratio (S:D): An S:D ratio of 2-3 after 34 wks is normal Systolic/Diastolic ratio (S:D): Age 16: 3.01 for the 10th percentile, 4.25 for the 50th percentile, 6.07 for the 90th percentile Age 20: 3.16 for the 10th percentile, 4.04 for the 50th percentile, 5.24 for the 90th percentile Age 24: 2.70 for the 10th percentile, 3.50 for the 50th percentile, 4.75 for the 90th percentile Age 28: 2.41 for the 10th percentile, 3.02 for the 50th percentile, 3.97 for the 90th percentile Age 30: 2.43 for the 10th percentile, 3.04 for the 50th percentile, 3.80 for the 90th percentile Age 32: 2.27 for the 10th percentile, 2.73 for the 50th percentile, 3.57 for the 90th percentile Age 34: 2.08 for the 10th percentile, 2.52 for the 50th percentile, 3.41 for the 90th percentile Age 36: 1.96 for the 10th percentile, 2.35 for the 50th percentile, 3.15 for the 90th percentile Age 38: 1.89 for the 10th percentile, 2.24 for the 50th percentile, 3.10 for the 90th percentile Age 40: 1.88 for the 10th percentile, 2.22 for the 50th percentile, 2.68 for the 90th percentile Age 41: 1.93 for the 10th percentile, 2.21 for the 50th percentile, 2.55 for the 90th percentile Age 42: 1.91 for the 10th percentile, 2.51 for the 50th percentile, 3.21 for the 90th percentile Uteroplacental Artery: Resistive Index (RI): Normal=<0.55 High Resistance=Bilateral notches (after 26 wks) and RI>0.55. Unilateral notches (after 26 wks) and RI>0.65 Systolic/Diastolic ratio (S:D) = 2-3 is normal after 32 weeks. Electronically authenticated by: SOFIA KABA Date: 02/16/2024 15:04
--- NOTE | 2024-02-16 13:49 | PC.NURSE ---
Verbal doppler all forward flow seen
== END 2024-02-16 13:50 | disposition home or self-care (01) ==
LOC: US 07:05 → FBC 13:01
PROVIDERS: Visit Provider Obstetrics & Gynecology
DX: O43.113 Circumvallate placenta, third trimester (principal); Z3A.31 31 weeks gestation of pregnancy
CPT/HCPCS: 76818; 76820

== ENCOUNTER 2024-02-19 07:07 | Outpatient (OUT) | payer OTHER, SELFPAY ==
--- OUTSIDE RECORDS SUMMARY | 2024-02-19 07:10 | XMS_ITS | CCD ---
Author Organization [facility] Inform ion [facility] Care Team Providers Care Teacher Ballet Name Role Phone Kendra Witt Unavailable Michael [...] Unavailable ZIEBER, DR MARS Mccarthy Consulting Unavailable HOWELL, DR SOFIA Hull Consulting Unavailable REQUEST, NONE LISTED Primary Care Unavaila ble MIRI, DR NEAL Attending Unavailable MIRI, DR NEAL Admitting Unavailable MIRI, DR NEAL Consulting Unavailable KARASIK, DR YANEZ Consulting Unavailable REQUEST, NONE LISTED Primary Care Unavaila ble MIRI, DR NEAL Attending Unavailable MIRI, DR NEAL Admitting Unavailable MIRI, DR NEAL Consulting Unavailable AGUBOSIM, ZAN Consulting Unavailable MIRI, DR NEAL Procedure Practitioner Unavailab ricardo KABA, DR SOFIA Hull Consulting Unavailable EVER, NONE LISTED Primary Care Unavaila ble MIRI, [...] ALEJO Referring Unavailable JUVENAL THORPE Referring Unavailable SELAM HUNTER Primary Care Unavailable Siva Schulte Attending Unavailable SELAM HUNTER Primary Care Unavailable Wil Chandra Attending Unavailable SELAM HUNTER Primary Care Unavailable Emily Harper Attending Unavailable SELAM HUNTER Admitting Unavailable SELAM HUNTER Attending Unavailable Siva Schulte Attending Unavailable SELAM HUNTER Primary Care Unavailable JUVENAL THORPE Attending Unavailable GONSALO CORRAL Attending Unavailable JUVENAL THORPE Attending Unavailable GONSALO CORRAL Attending Unavailable JUVENAL THORPE Attending Unavailable GONSALO CORRAL Attending Unavailable Allergies Allergy Classification Reported Allergen(s) Allergy Type Date of Onset Reaction(s) Facility (1 source) No Known Medication Allergies; Translations: [No Known Medication Allergies] Propensity to adverse reactions (disorder) [facility] Repository Medications Current Medications Medication [...] day(s), # 28 cap(s), Refills(s) 0, Pharmacy: [facility], 170, cm, 08/27/23 9:49:00 EDT, Height/Length Dosing, 78.7, kg, 08/27/23 9:49:00 EDT, Weight Dosing Start Date: 08/27/23 Stop Date: 09/03/23 Status: Ordered Start: 01-03-2023 take 1 capsule by [facility] every twelve hours Keflex 500 mg Cap 500 mg = 1 cap(s), Oral, q12hr, # 20 cap(s), Refills(s) 0, Pharmacy: [facility], 170, cm, 01/03/23 22:44:00 EDT, Height/Length Dosing, 75.3, kg, 01/03/23 22:44:00 EDT, Weight Dosing Start Date: 01/03/23 Status: Ordered Citalopram (2 sources) Serotonin Reuptake Inhibitor Citalopram Hydrobromide Active dexamethasone 1 mg/ml / neomycin 3.5 mg/ml / polymyxin b 09832 unt/ml ophthalmic suspension (2 sources) Aminoglycoside Antibacterial, Polymyxin-class Antibacterial, Corticosteroid Start: 09-26-19 take 1 drop(s) into the eye(s) four times daily Maxitrol 3.5-73225-1.1 1 drop into affected eye Ophthalmic Four [...] 3 hrs for 2 days Jun, Active [place] (No Known Home Meds) (1 source) Start: 06-26-2021 [place] (No Known Home Meds) Active June 26, [...] tab(s), Refills(s) 0, Pharmacy: [facility], 170, cm, 01/03/23 22:44:00 EDT, Height/Length Dosing, 75.3, kg, 01/03/23 22:44:00 EDT, Weight Dosing Start Date: 01/03/23 Status: Ordered Start: 06-09-2019 take 1 tablet by faby th three times daily Zofran ODT 4 mg Tab-Dis 4 mg = 1 tab(s), Oral, TID, # 15 tab(s), Refills(s) 0, Pharmacy: [facility] Start Date: 06/09/19 Status: [...] take 450 mg by mouth twice daily [place] Carbonate Discontinued 450 MG PO Twice daily [...] Grp A Strp Intrl Ctrl Pass Normal [facility] Comment on above: Order Comment: Order Added on by Discern Rule. Performed By: #### 1 [id number] #### [facility] [address] [place] [address] S. pyogenes DNA ALFREDO+probe Ql (Throat) Negative Normal [facility] Comment on above: Order Comment: Order Added on by Discern Rule. Result Comment: Test ing performed using DNA amplification. Performed By: #### 1 [id number] #### [facility] [address] [place] [address] ED Clinical Summaryon 2023 ED Clinical Summary ED Clinical Summary [address] [address] ED Clinical Summary Person Information Name: KAILYN ACKERMAN [facility] Age: 23 Years : 2000 Sex: Female Language: [place]ese PCP: SELAM HUNTER CNP Marital Status: Single Phone: [phone] MRN: Visit Id: Visit Reason: Headache; Body aches; [...] 02/03/2024 11:17:23 02/03/2024 11:17:23 02/03/2024 11:17:23 ADDRESS: [address] [place] [phone] PHYS DOC NOTES: MEDICAL INFORMATION: Prescriptions Given: [...] Adult Follow up: With: Address: When: [facility], [address] [place] [address] [place] [address] Business (1) In 3 days 02/06/2024 With: Address: When: [place] [address] Business (1) In 3 days 02/06/2024 DIAGNOSIS: Sore throat; Viral URI Normal [facility] ED Note-Physicianon 08-27-20 24 ED Note-Physician ED Note-Physician Basic Information Time [...] URI and will continue to follow-up with MANAGER LOAN for further evaluation and management. We discussed [...] days 02/06/2024 (more content not included)... Normal [facility] Comment on above: Result Comment: Elec tronically Signed By: Duc Swanson PA-C\.br\Date and Time Signed: 02/03/24 13:23 EDT\.br\Electronically Co-Signed By: Siva Schulte DO\.br\Date and Time Co-Signed: 02/03/24 14:44 EDT ED Patient Summaryon 024 ED Patient Summary ED Patient Summary [address] [address] Patient Discharge Instructions Person Information Name: KAILYN ACKERMAN Age: 23 Years Arrival Date: 02/03/2024 09:21:41 Discharge Diagnosis: Sore throat; Viral URI Primary Care Physician: SELAM HUNTER CNP Provider Information Primary Provider: Siva Schulte DO Advanced Rim Turning Finisher:Duc Swanson PA-C The exam and treatment you received in the Emergency Department were for an urgent problem and are not intended as complete care. It is important that you follow up with a doctor, nurse practitioner, or physician?s trading assistant for ongoing care. If your symptoms [...] Follow-up Instructions: With: Address: When: [facility], [address] [place] [address] [place] [address] Business (1) In 3 days 02/06/2024 With: Address: When: SELAM HUNTER [address] [place], [place] [address] [address] Business (1) In 3 days 02/06/2024 In the event that this physician does not participate in your insurance network, please consult with your insurance company to find a nearby participating provider. Patient Education Materials: Upper Respiratory Infection, Adult A MESSAGE TO ALL PATIENTS REGARDING OPIOIDS PRESCRIPTION OPIOIDS: WHAT YOU NEED TO KNOW Prescription opioids can be used to help relieve mhwccsgg-dh-rjpghs pain and are often prescribed following a [...] of op (more content not included)... Normal [facility] MICRO OTHER TESTSOrdered By: Nita Delgadillo on 02-03-2024 S. pyogenes Ag IA.rapid Ql (Throat) Negative (02/03/24 11:07 AM) Normal Negative [facility] Sero MICRO OTHER TESTSOrdered By: Asuncion Goncalves on 02-03-2024 Rapid COV Int NEG Ctl Pass (02/03/24 9:30 AM) Normal [facility] Sero Rapid COV Int POS Ctl Pass (02/03/24 9:30 AM) Normal [facility] Sero SARS-CoV+SARS-CoV-2 (COVID-19) Ag IA.rapid Ql (Resp) Not Detected 1 (02/03/24 9:30 AM) Normal Not Detected [facility] Comment on above: Interpretive Data: [employer]ato multani Closet Couture Veritor System for Rapid Detection of SARS-CoV-2 [...] terminated or revoked sooner. Rapid COVID Antigen ([facility])on 02-03-2024 Rapid COV Int NEG Ctl Pass Normal [facility] Comment on above: Performed By: #### 2 [id number] #### [facility] [address] [place] [address] Rapid COV Int POS Ctl Pass Normal [facility] Comment on above: Performed By: #### 2 [id number] #### [facility] [address] [place] [address] SARS-CoV+SARS-CoV-2 (COVID-19) Ag IA.rapid Ql (Resp) Not detected Normal Not Detected [facility] Comment on above: Result Comment: The Closet Couture Veritor? System for Rapid Detection of SARS-CoV-2 [...] viruses or pathogens; and, in the [facility], this test is only authorized for the duration of the declaration that circumstances exist justifying the authorization of emergency use of in vitro diagnostics for detection and/or diagnosis of the virus that causes COVID-19 under Section 564(b)(1) of the Act, 21 U.S.C. ? 360bbb-3(b)(1), unless the authorization is terminated or revoked sooner. Performed By: #### 2 [id number] #### [facility] [address] [place] [address] Rapid Strep w/rfxon 02-03-20 24 S. pyogenes Ag IA.rapid Ql (Throat) Negative Normal Negative [facility] Comment on above: Performed By: #### 2 [id number] #### [facility] [address] [place] [address] ED Note-Physicianon 09-26-19 24 ED Note-Physician Basic [...] than 90,000. Ultrasound was obtained discussed with commercial kitchen service technician. Intrauterine consistent with stated gestational age. Stable heart rate. Patient continues to demonstrate subchorionic hematoma. Also left-sided ovarian cyst similar to previous. Results were discussed with the patient. She is discharged home to continue pelvic rest and follow-up with MANAGER LOAN. Patient was encouraged to return to the [...] Juvenal THORPE In 3 days 09/26/[address] , [place] [address] Business (1) Additional Instructions: Patient Education Subchorionic [...] made to ensure accuracy, however, inadvertently computerized windchill administrator mistakes may be present. Appropriate healthcare PPE [...] Yes., 04/10/2019 Lab Results Beta hCG Qnt: 13220 mIU/mL High (09/23/23 09:28:00) Diagnostic Results No qualifying data available. Normal [facility] Comment on above: Result Comment: Elec tronically Signed By: Mandie CHUNG, Venkat\.br\Date and Time Signed: 09/23/23 11:45 EDT\.br\Electronically Co-Signed By: Wil Chandra DO\.br\Date and Time Co-Signed: 09/26/23 07:37 EDT [facility] Quanton 09-23-2023 [place] [address] m[IU]/mL High 1-3 F [facility] Comment on above: Result Comment: 'F N ON < 1 - 3' ' 0.2 - 1 WEEK = 5 TO 50' ' 1 - 2 WEEKS = 50 - 500' ' 2 - 3 WEEKS = 100 - 5000' ' 3 - 4 WEEKS = 500 - 75335' ' 4 - 5 WEEKS = 1000 - 65784' ' 5 - 6 WEEKS = 86727 - 804010' ' 6 - 8 WEEKS = 03646 - 911003' ' 8 - 12 WEEKS = 78507 - 560964' Performed By: #### 2 [id number] ####[place] [address] [place] [address] CHEMISTRYOrdered By: SYSTEM SYSTEM on 09-23-2023 [place] [address] m[IU]/mL High 1 - 3 mIU/mL [facility] Comment on above: Result Comment: 'F N ON < 1 - 3' ' 0.2 - 1 WEEK = 5 TO 50' ' 1 - 2 WEEKS = 50 - 500' ' 2 - 3 WEEKS = 100 - 5000' ' 3 - 4 WEEKS = 500 - 12654' ' 4 - 5 WEEKS = 1000 - 66713' ' 5 - 6 WEEKS = 03720 - 432733' ' 6 - 8 WEEKS = 22908 - 628649' ' 8 - 12 WEEKS = 38302 - 422928' Consent for Treatmenton 09-07 Consent for Treatment [id number] Normal [facility] Discharge Instructionson Discharge Instructions [id number] Normal [facility] ED Clinical Summaryon 2023 ED Clinical Summary [address] [address] ED Clinical Summary Person Information Name: KAILYN ACKERMAN [facility] Age: 23 Years : 2000 Sex: Female Language: [place]ese PCP: NONE, XXXX Marital Status: Single Phone: [phone] MRN: [id number] Visit Id: Visit Reason: Back pain; Vaginal [...] 09/23/2023 11:52:16 09/23/2023 11:52:16 09/23/2023 11:52:16 ADDRESS: [address] [place] [phone] PHYS DOC NOTES: MEDICAL INFORMATION: Prescriptions Given: [...] Follow up: With: Address: When: [facility], [address] [place] [address] [place] [address] Business (1) In 3 days 09/26/2023 DIAGNOSIS: Other antepartum hemorrhage, unspecified trimester; Subchorionic bleed; Vaginal bleeding in Normal [facility] ED Patient Education Noteon 09-23-2023 [...] provider. Document Revised: 02/19/2021 Document Reviewed: 02/19/2021 [employer] Patient Education ? 2022 [employer]. Normal [facility] ED Patient Summaryon 024 ED Patient Summary [address] [address] Patient Discharge Instructions Person Information Name: GARCÍA ACKERMANNZIE Evan Age: 23 Years Arrival Date: 09/23/2023 09:10:07 Discharge Diagnosis: Other antepartum hemorrhage, unspecified trimester; Subchorionic bleed; Vaginal bleeding in Primary Care Physician: NONE, XXXX Provider Information Primary Provider: Wil Chandra DO Advanced Rim Turning Finisher:Venkat Leal PA-C The exam and treatment you received in the Emergency Department were for an urgent problem and are not intended as complete care. It is important that you follow up with a doctor, nurse practitioner, or physician?s trading assistant for ongoing care. If your symptoms [...] Follow-up Instructions: With: Address: When: [facility], [address] [place] [address] , [place] [address] Business (1) In 3 days 09/26/2023 In the event that this physician does not participate in your insurance network, please consult with your insurance company to find a nearby participating provider. Patient Education Materials: Subchorionic Hematoma A MESSAGE TO ALL PATIENTS REGARDING OPIOIDS PRESCRIPTION OPIOIDS: WHAT YOU NEED TO KNOW Prescription opioids can be used to help relieve dedrmhrv-nt-xmfazm pain and are often prescribed following a [...] health care p (more content not included)... [facility] Prescriptions/Work Noteson 0 09-23-2023 Prescriptions/Work Notes [id number] [facility] US 1st Trimesteron 09-23-2023 1st Trimester Exam Date/Time: 09/23/2023 11:42 EDT [...] least 66% of the gestational sac circumference. [employer] Rump Length: 3.2 cm, which corresponds Composite [...] Size = Dates Uterus Position Anteverted Normal [facility] C Urineon 08-29-2023 Bacteria identified [...] Locations R1: This test was performed at: [facility], [address] [place] [address], [address] , , Normal [facility] Comment on above: Performed By: #### 4 [id number] ####[facility] [address] [place] [address] ABO/Rhon 08-27-2023 ABO/Rh Positive Invalid Interpretation Code [facility] Comment on above: Performed By: #### 2 [id number] ####[facility] [address] [place] [address] BLOOD BANKOrdered By: Liza Xavier on 08-27-2023 ABO/Rh Interp Positive Invalid Interpretation Code [facility] BB Subsection BMPon 08-27-2023 Anion gap [Moles/Vol] 11 mmol/L Normal 6-16 [facility] Comment on above: Performed By: #### 1 [id number], [id number], [id number] ####[facility] [address] [place] [place] [address] Calcium [Mass/Vol] 9.3 mg/dL Normal 8.9-11.1 [facility] Comment on above: Performed By: #### 1 [id number], 1872989, 2258436 ####[facility] [address] [place] [place] [address] Chloride [Moles/Vol] 104 mmol/L Normal 101-111 [facility] Comment on above: Performed By: #### 1 [id number], 5132644, 7291605 ####[facility] [address] [place] [place] [address] CO2 [Moles/Vol] 24 mmol/L Normal 21-31 [facility] Comment on above: Performed By: #### 1 2535597, 9047108, 2751700 ####[facility] [address] [place] [address] Creatinine [Mass/Vol] 0.6 mg/dL Normal 0.5-1.3 [facility] Comment on above: Performed By: #### 1 8516249, 7266214, 4533129 ####[facility] [address] [place] [address] Glucose [Mass/Vol] 87 mg/dL Normal 55-199 [facility] Comment on above: Performed By: #### 1 2645133, 3980725, 7966151 ####[facility] [address] [place] [address] Potassium [Moles/Vol] 3.7 mmol/L Normal 3.5-5.3 [facility] Comment on above: Performed By: #### 1 1346661, 8722694, 9242805 ####[facility] [address] [place] [address] Sodium [Moles/Vol] 135 mmol/L Normal 135-145 [facility] Comment on above: Performed By: #### 1 8296506, 5543175, 2385785 ####[facility] [address] [place] [address] Urea nitrogen [Mass/Vol] 8 mg/dL Normal 5-21 [facility] Comment on above: Performed By: #### 1 2534082, 9799277, 8623919 ####[facility] [address] [place] [address] Urea nitrogen/Creatinine [Mass ratio] 13 No Units Normal 10-20 [facility] Comment on above: Performed By: #### 1 6237931, 7872827, 7108334 ####[facility] [address] [place] [address] BhCG Quanton 08-27-2023 [place] [address] m[IU]/mL High 1-3 F [facility] Comment on above: Result Comment: 'F N ON < 1 - 3' ' 0.2 - 1 WEEK = 5 TO 50' ' 1 - 2 WEEKS = 50 - 500' ' 2 - 3 WEEKS = 100 - 5000' ' 3 - 4 WEEKS = 500 - 55218' ' 4 - 5 WEEKS = 1000 - 71012' ' 5 - 6 WEEKS = 39703 - 488750' ' 6 - 8 WEEKS = 82773 - 629245' ' 8 - 12 WEEKS = 62559 - 965097' Performed By: #### 2 445081 ####[facility] [address] [place] [address] CBC w/ Auto Diffon 4 Basophils/100 WBC (Bld) 0.6 % Normal 0.0-2.0 F [facility] Comment on above: Performed By: #### 1 6284791, 4820965, 1756829 ####[facility] [address] [place] [address] Basophils/Leukocytes Auto (Bld) [Pure # fraction] 0.0 E9/L Normal 0.0-0.2 [facility] Comment on above: Performed By: #### 1 4629951, 1040839, 5989214 ####[address] [address] Eosinophils (Bld) [#/Vol] 0.1 E9/L Normal 0.0-0.5 [facility] Comment on above: Performed By: #### 1 7888361, 0855846, 2992565 ####[address] [address] Eosinophils/100 WBC (Bld) 2.0 % Normal 0.0-8.0 [facility] Comment on above: Performed By: #### 1 8470920, 9761331, 5960567 ####[address] [address] Erythrocyte distribution width (RBC) [Ratio] 15.0 % High 10.9-14.2 [facility] Comment on above: Performed By: #### 1 4797066, 3035334, 5420584 ####[address] [address] Hematocrit (Bld) [Volume fraction] 37.4 % Normal 34.0-46.0 [facility] Comment on above: Performed By: #### 1 4720826, 3304428, 0066297 ####[address] [address] Hemoglobin (Bld) [Mass/Vol] 12.7 g/dL Normal 12.0-16.0 [facility] Comment on above: Performed By: #### 1 6063183, 4502699, 0407527 ####[address] [address] Lymphocytes (Bld) [#/Vol] 2.0 E9/L Normal 1.0-4.0 [facility] Comment on above: Performed By: #### 1 4477002, 1739036, 0689546 ####[address] [address] Lymphocytes/100 WBC (Bld) 28.1 % Normal 14.0-50.0 [facility] Comment on above: Performed By: #### 1 2635889, 7508989, 8522949 ####[address] [address] MCH (RBC) [Entitic mass] 28.4 pg Normal 27.0-34.0 [facility] Comment on above: Performed By: #### 1 9286039, 4023105, 4667722 ####[place] [address] MCHC (RBC) [Mass/Vol] 33.8 g/dL Normal 31.4-36.0 [facility] Comment on above: Performed By: #### 1 5606170, 6891087, 6532915 ####[place] [address] MCV (RBC) [Entitic vol] 84.0 fL Normal 80.0-100.0 F [facility] Comment on above: Performed By: #### 1 1591205, 8418404, 0197359 ####[place] [address] Monocytes (Bld) [#/Vol] 0.5 E9/L Normal 0.2-1.0 F [facility] Comment on above: Performed By: #### 1 7229565, 8408234, 2293969 ####[address] [address] Neutrophils (Bld) [#/Vol] 4.5 E9/L Normal 2.0-7.5 [facility] Comment on above: Performed By: #### 1 5641138, 5912216, 7485348 ####[address] [address] Neutrophils/100 WBC (Bld) 61.9 % Normal 36.0-75.0 [facility] Comment on above: Performed By: #### 1 2030027, 5510545, 3949266 ####[address] [place] [address] Platelet mean volume (Bld) [Entitic vol] 7.9 fL Normal 6.4-10.8 [facility] Comment on above: Performed By: #### 1 7044062, 9338902, 7241776 ####[facility] [address] [place] [address] Platelets (Bld) [#/Vol] 252.0 E9/L Normal 150.0-500.0 [facility] Comment on above: Performed By: #### 1 9957067, 7078398, 1647559 ####[address] [address] RBC (Bld) [#/Vol] 4.5 E12/L Normal 4.3-5.9 [facility] Comment on above: Performed By: #### 1 7438622, 2629977, 9251566 ####[facility] [address] [place] [address] WBC corrected for nucl RBC Auto (Bld) [#/Vol] 7.2 E9/L Normal 4.0-11.0 [facility] Comment on above: Performed By: #### 1 0329711, 6610045, 1093924 ####[facility] [address] [place] [address] CHEMISTRYOrdered By: SYSTEM SYSTEM on 08-27-2023 Anion [...] 199 mg/[place] [address] m[IU]/mL High 1 - 3 mIU/mL [facility] Comment on above: Result Comment: 'F N ON < 1 - 3' ' 0.2 - 1 WEEK = 5 TO 50' ' 1 - 2 WEEKS = 50 - 500' ' 2 - 3 WEEKS = 100 - 5000' ' 3 - 4 WEEKS = 500 - 29387' ' 4 - 5 WEEKS = 1000 - 74524' ' 5 - 6 WEEKS = 80597 - 198425' ' 6 - 8 WEEKS = 21349 - 322942' ' 8 - 12 WEEKS = 82641 - 437588' Potassium [Moles/Vol] 3.7 mmol/L Normal 3.5 - 5.3 mmol/L [facility] Sodium [Moles/Vol] 135 mmol/L Normal 135 - 145 mmol/L [facility] Urea nitrogen [Mass/Vol] 8 mg/dL Normal 5 - 21 mg/d L [facility] Urea nitrogen/Creatinine [Mass ratio] 13 mg/mg Normal 10 - 20 [facility] Consent for Treatmenton 08-08 Consent for Treatment [id number] Normal [facility] Discharge Instructionson Discharge Instructions [id number] Normal [facility] ED Clinical Summaryon 2023 ED Clinical Summary [place] [id number] ED Clinical Summary Person Information Name: KAILYN ACKERMAN [facility] Age: 22 Years : 2000 Sex: Female Language: [place]ese PCP: SELMA HUNTER CNP Marital Status: Single Phone: [phone] MRN: Visit Id: Visit Reason: Vaginal bleeding [...] 08/27/2023 12:34:16 08/27/2023 12:34:16 08/27/2023 12:34:16 ADDRESS: [address] [place] [phone] PHYS DOC NOTES: MEDICAL INFORMATION: Prescriptions Given: Medications to Continue Taking That Have Changed [facility], [address] [place], [place] [id number], [phone] START: cephalexin (Keflex 500 mg Cap) 1 [...] Urinary Tract Infection; Urinary Tract Infection, Adult, Dwzs-jo-Lcye; Subchorionic Hematoma Follow up: With: Address: When: [facility], [address] [place] [address] [place], [place] [id number] Business (1) In 3 days 08/30/2023 With: Address: When: [place] [address] Business (1) In 3 days DIAGNOSIS: Other antepartum hemorrhage, unspecified trimester; Subchorionic bleed; UTI (urinary tract infection) during ; Vaginal bleeding in Normal [facility] ED Note-Physicianon 08-27-19 ED Note-Physician Basic Information Time Seen: Osvaldo CHUNG, Hudson Lang 08/27/2023 09:42 Chief Complaint patient had 1 [...] and Complexity of Problems Differential Diagnosis: [] [facility] Data External documents reviewed: [] My [...] day(s), # 28 cap(s), Refills(s) 0, Pharmacy: [facility], 170, cm, 08/27/23 9:49:00 EDT, Height/Length [...] Juvenal THORPE In 3 days 08/30/[address] [place] [address]- Business (1) Additional Instructions: SELAM HUNTER In 3 days [facility] [place] [address]- Business (1) Additional Instructions: Patient Education and Urinary Tract Infection Urinary Tract Infection, Adult, Ryrs-rx-Ffow Subchorionic Hematoma Attestation Patient seen and evaluated by the physician trading assistant. Attending physician was present in the emergency department and s (more content not included)... Normal [facility] Comment on above: Result Comment: [...] provider. Document Revised: 01/09/2022 Document Reviewed: 01/09/2022 [employer] Patient Education ? 2022 [employer] Urinary Tract Infection, Adult A urinary [...] swelling (inflammation) (more content not included)... Normal [facility] [facility] ED Patient Summaryon 024 ED Patient Summary [place] [id number] Patient Discharge Instructions Person Information Name: KAILYN ACKERMAN Age: 22 Years Arrival Date: 08/27/2023 09:37:12 Discharge Diagnosis: Other antepartum hemorrhage, unspecified trimester; Subchorionic bleed; UTI (urinary tract infection) during ; Vaginal bleeding in Primary Care Physician: SELAM HUNTER CNP Provider Information Primary Provider: Emily Harper M.D. Advanced Rim Turning Finisher:None The exam and treatment you received in the Emergency Department were for an urgent problem and are not intended as complete care. It is important that you follow up with a doctor, nurse practitioner, or physician?s trading assistant for ongoing care. If your symptoms become worse or you do not improve as expected and you are unable to reach your usual health care provider, you should return to the Emergency Department. We are available 24 hours a day. KAILYN ACKERMAN has been given the following list of patient education materials, prescriptions and follow-up instructions: Follow-up Instructions: With: Address: [facility] [address] [place] [address] Dr. [facility] [place] [phone] Business (1) In 3 days 08/30/2023 With: Address: When: SELAM HUNTER [address] [place] [address] [place] [id number] Business (1) In 3 days In the event that this physician does not participate in your insurance network, please consult with your insurance company to find a nearby participating provider. Patient Education Materials: and Urinary Tract Infection; Urinary Tract Infection, Adult, Zdop-qd-Kzzf; Subchorionic Hematoma A MESSAGE TO ALL PATIENTS REGARDING OPIOIDS PRESCRIPTION OPIOIDS: WHAT YOU NEED TO KNOW Prescription opioids can be used to help relieve pfajwfyd-rt-jcgsfj pain and are often prescribed following a [...] toilet, follo (more content not included)... Normal [facility] HEMATOLOGYOrdered By: SYSTEM SYSTEM on [...] 08-27-19 24 Color (U) Light-Yellow Normal Yellow [facility] Comment on above: Result Comment: Micr oscopic readings are only performed on those samples that meet specific criteria set forth by [facility]. Performed By: #### 4 [id number], [id number] ####[address] [address] Glucose (U) [Mass/Vol] Negative Normal Negative [facility] Comment on above: Performed By: #### 4 [id number], [id number] ####[facility] [address] [place] [address] Ketones Ql (U) Negative Normal Negative [facility] Comment on above: Performed By: #### 4 [id number], [id number] ####[facility] [address] [place] [address] UA Blood 3+ Abnormal Negative [facility] Comment on above: Performed By: #### 4 [id number], [id number] ####[facility] [address] [place] [address] UA Bacteria 1+ [id number] Abnormal Trace [facility] Comment on above: Performed By: #### 4 [id number], [id number] ####[address] [address] UA Clarity Turbid Abnormal Clear [facility] Comment on above: Performed By: #### 4 [id number], [id number] ####[facility] [address] [place] [address] UA Hyal Cast 0-3 Normal 0-3 [facility] Comment on above: Performed By: #### 4 [id number], [id number] ####[facility] [address] [place] [address] UA Leuk Est 250 Stefania/uL Abnormal Negative [facility] Comment on above: Performed By: #### 4 [id number], [id number] ####[facility] [address] [place] [address] UA Mucous Trace Normal Negative [facility] Comment on above: Performed By: #### 4 [id number], [id number] ####[facility] [address] [place] [address] UA Nitrite Negative Normal Negative [facility] Comment on above: Performed By: #### 4 [id number], [id number] ####[facility] [address] [place] [address] UA pH 5.5 Invalid Interpretation Code 5.0-9.0 [facility] Comment on above: Performed By: #### 4 [id number], [id number] ####[facility] [address] [place] [address] UA Protein 1+ mg/dL Abnormal Negative [facility] Comment on above: Performed By: #### 4 [id number], [id number] ####[facility] [address] [place] [address] UA RBC 4-20 Abnormal 0-3 [facility] Comment on above: Performed By: #### 4 [id number], [id number] ####[facility] [address] [place] [address] UA Spec Grav 1.018 Invalid Interpretation Code 1.005-1.030 [facility] Comment on above: Performed By: #### 4 [id number], [id number] ####[facility] [address] [place] [address] UA Squam Epithelial 3-4 Abnormal 0-2 [facility] Comment on above: Performed By: #### 4 [id number], [id number] ####[facility] [address] [place] [address] UA Urobilinogen Negative Normal Negative [facility] Comment on above: Performed By: #### 4 [id number], [id number] ####[facility] [address] [place] [address] UA WBC 6-15 Abnormal 0-5 [facility] Comment on above: Performed By: #### 4 [id number], [id number] ####[facility] [address] [place] [address] Urobilinogen (U) [Mass/Vol] Negative Normal Negative [facility] Comment on above: Performed By: #### 4 [id number], [id number] ####[facility] [address] [place] [address] UA Spec Desc Clean Catch Normal [facility] Comment on above: Performed By: #### 4 [id number], [id number] ####[facility] [address] [place] [address] URINALYSISOrdered By: SYSTEM SYSTEM on 08-27-2023 Color (U) Light-Yellow 1 (08/27/23 9:55 AM) Normal Yellow [facility] UA Auto SS Comment on above: Interpretive Data: M icroscopic readings are only performed on those samples that meet specific criteria set forth by [facility]. Glucose (U) [Mass/Vol] Negative Normal Negat ivemg/d L FT UA Auto SS Ketones Ql (U) Negative Normal Negativemg/d L FT UA Auto SS UA Bacteria 1+ graded/HPF Invalid Interpretation Code Tracegraded/ HPF FT UA Auto SS UA Blood 3+ *ABN* (08/27/23 9:55 AM) Invalid Interpretation Code Negative FT UA Auto SS UA Clarity Turbid *ABN* (08/27/23 9:55 AM) Invalid Interpretation Code Clear FT UA Auto SS UA Hyal Cast 0-3 graded/LPF Normal 0-3graded/LP F FT UA Auto SS UA Leuk Est 250 [...] Reason for Exam: Other (please specify) Report [facility] [phone] IMPRESSION: Single live intrauterine with estimated sonographic [...] heart rate is measured at 120 bpm. [employer]-rump length 4.77 mm. Estimated sonographic gestational age [...] Transvaginal Ultrasound Performed FHR (bpm) 120 Normal [facility] US Transvaginalon 08-27-2023 US Transvaginal Exam Date/Time: 08/27/2023 11:55 EDT Reason for Exam: Other (please specify) Report [facility] [phone] Please see ultrasound pelvis, for report of transvaginal examination. Ordering Provider: Hudson Riley FINAL REPORT Dictated: 08/27/2023 12:33 pm Zach Deng MD Signed (Electronic Signature): 08/27/2023 12:33 pm Signed by: Zach Deng MD Transcribed by: KIRK Technologist: SHELLEY Normal [facility] eGFRon 08-27-2023 eGFR 131 mL/min/1.73 m2 Normal >=59 [facility] Comment on above: Order Comment: Order added by Discern Expert. Performed By: #### 1 [id number], [id number], [id number] ####[facility] [address] [place] [address] [facility] Quanton 08-19-2023 HCG.beta subunit Qn 4261 m[IU]/mL High 1-3 [facility] Comment on above: Result Comment: 'F N ON < 1 - 3' ' 0.2 - 1 WEEK = 5 TO 50' ' 1 - 2 WEEKS = 50 - 500' ' 2 - 3 WEEKS = 100 - 5000' ' 3 - 4 WEEKS = 500 - 74205' ' 4 - 5 WEEKS = 1000 - 19893' ' 5 - 6 WEEKS = 09446 - 366470' ' 6 - 8 WEEKS = 01829 - 097852' ' 8 - 12 WEEKS = 38794 - 582171' Performed By: #### 2 [id number] ####[facility] [address] [place] [address] Physician Orderon 08-19-2023 Physician Order [id number] Normal [facility] CHEMISTRYOrdered By: Juancho benitez on 01-03-2023 Albumin [...] 11. 1 mg/dL [facility] Chloride [Moles/Vol] 106 mmol/L Normal 101 [...] 29 U/L Normal 13 - 58 unit/L [facility] Potassium [Moles/Vol] 3.5 mmol/L Normal 3.5 - 5.3 mmol/L [facility] Protein [Mass/Vol] 7.0 g/dL Normal 6.0 - 7.8 gm/dL [facility] Sodium [Moles/Vol] 136 mmol/L Normal 135 - 145 mmol/L [facility] Urea nitrogen [Mass/Vol] 10 mg/dL Normal 5 - 21 mg/d L [facility] Urea nitrogen/Creatinine [Mass ratio] 12 mg/mg Normal 10 - 20 [facility] Remisol CHEMISTRYOrdered By: SYSTEM SYSTEM on 01-03-2023 GFR/1.73 sq M.predicted among non-blacks MDRD (S/P/Bld) [Vol rate/Area] 108 mL/min/1.73 m2 Normal >=59mL/min/1 .73 m2 [facility] Chem S HCG.beta subunit Qn 1572 m[IU]/mL High 1 - 3 mIU/mL [facility] Remisol HEMATOLOGYOrdered By: SYSTEM SYSTEM on 01-03-2023 [...] 16.9 E9/L High 4.0 - 11.0 E9/L [facility] HemeAutoSS Laboratory - Microbiology an d Antimicrobial susceptibilityOrdered By: Asuncion Goncalves on 01-03-2023 Bacteria identified Cx Nom (U) No growth to date Continuing incubation [facility] MICRO OTHER TESTSOrdered By: Juancho Fitch [...] Interpretation Code Negative [facility] UA Auto SS [place].plasma/[place].R BC (Bld) [Mass ratio] 0-3 /HPF Normal [...] Desc Clean Catch (01/03/23 10:52 PM) Normal FT UA Auto SS Urobilinogen Qn (U) 1.2764487 {Georgina'U}/dL Normal 0.0 - 1.0 EU/dL [facility] UA Auto SS WBC Auto Ql (U) 1+ *ABN* (01/03/23 10:52 PM) Invalid Interpretation Code Negative [facility] UA Auto SS WBC LM.HPF (Urine sed) [#/Area] 6-15 /HPF Invalid Interpretation Code 0-5/HPF [facility] UA Auto SS Alanine aminotransferase [En zymatic activity/volume] in Serum or PlasmaOrdered By: Jose Silverman on 10-02-2022 ALT [Catalytic activity/Vol] 13 U/L Normal 7-52 [facility] Comment on above: Performed By: #### C BC, CMP, ETOH #### [facility] [address] [place] [address] [place] Albumin [Mass/volume] in Ser um or Plasma by Bromocresol green (BCG) dye binding methoOrdered By: Jose Silverman on 10-02-2022 Albumin BCG dye [Mass/Vol] 5.0 g/dL 3.5-5.7 [facility] Alkaline phosphatase [Enzyma tic activity/volume] in Serum or PlasmaOrdered By: Jose Silverman on 10-02-2022 ALP [Catalytic activity/Vol] 69 U/L Normal 34-104 [facility] Comment on above: Performed By: #### C BC, CMP, ETOH #### [facility] [address] [place] [address] [place] Amphetamine Screen Ql (U)Ord ered By: Jose Silverman on 10-02-2022 Amphetamines Ql (U) Negative Negative [facility] Aspartate aminotransferase [ Enzymatic activity/volume] in Serum or PlasmaOrdered By: Jose Silverman on 10-02-2022 AST [Catalytic activity/Vol] 21 U/L Normal 13-39 [facility] Comment on above: Performed By: #### C BC, CMP, ETOH #### [address] Automated basophil %Ordered By: Jose Silverman on 10-02-2022 Basophils/100 WBC (Bld) 0.5 % Normal . [facility] Comment on above: Performed By: #### C BC, CMP, ETOH #### [address] Automated basophil countOrde red By: Jose Silverman on 10-02-2022 Basophils (Bld) [#/Vol] 0.1 10*3/uL Normal 0.0-0.2 [facility] Comment on above: Result Comment: PERF ORMED BY: [place] [address] PATHOLOGIST ACID TENDER ASHELY CAREY M.D. Performed By: #### C BC, CMP, ETOH #### [address] Automated blood monocyte cou ntOrdered By: Jose Silverman on 10-02-2022 Monocytes (Bld) [#/Vol] 0.7 10*3/uL Normal 0.0-0.8 [facility] Comment on above: Performed By: #### C BC, CMP, ETOH #### [address] Automated eosinophil %Ordere d By: Jose Silverman on 10-02-2022 Eosinophils/100 WBC (Bld) 2.0 % Normal . [facility] Comment on above: Performed By: #### C BC, CMP, ETOH #### [address] Automated eosinophil countOr dered By: Jose Silverman on 10-02-2022 Eosinophils (Bld) [#/Vol] 0.3 10*3/uL Normal 0.0-0.45 [facility] Comment on above: Performed By: #### C BC, CMP, ETOH #### [address] Automated erythrocytes count in urine sediment (number/area)Ordered By: Jose Silverman on 10-02-2022 RBC Auto (Urine sed) [#/Area] 0-1 [HPF] 0-4 [facility] Automated leukocytes count i n urine sediment (number/area)Ordered By: Jose Silverman on 10-02-2022 WBC Auto (Urine sed) [#/Area] 10-19 [HPF] 0-4 [facility] Automated monocyte %Ordered By: Jose Silverman on 10-02-2022 Monocytes/100 WBC (Bld) 5.7 % Normal . [facility] Comment on above: Performed By: #### C BC, CMP, ETOH #### [facility] [address] Automated neutrophil %Ordere d By: Jose Silverman on 10-02-2022 Neutrophils/100 WBC (Bld) 68.7 % Normal . [facility] Comment on above: Performed By: #### C BC, CMP, ETOH #### [facility] [address] [place] [address] [place] Barbiturates [Presence] in U rine by Screen methodOrdered By: Jose Silverman on 10-02-2022 Barbiturates Screen Ql (U) Negative Negative [facility] Benzodiazepines Screen Ql (U )Ordered By: Jose Silverman on 10-02-2022 Benzodiazepines Ql (U) Negative Negative [facility] Benzoylecgonine [Presence] i n Urine by Screen methodOrdered By: Jose Silverman on 10-02-2022 Benzoylecgonine Screen Ql (U) Negative Negative [facility] Bilirubin Test strip Ql (U)O rdered By: Jose Silverman on 10-02-2022 Bilirubin Ql (U) Negative Negative [facility] Bilirubin.total [Mass/volume ] in Serum or PlasmaOrdered By: Jose Silverman on 10-02-2022 Bilirubin [Mass/Vol] 0.3 mg/dL Normal 0.3-1.0 [place] Comment on above: Performed By: #### C BC, CMP, ETOH #### [facility] [address] [place] [id number] [place] Calcium [Mass/volume] in Ser um or PlasmaOrdered By: Jose Silverman on 10-02-2022 Calcium [Mass/Vol] 9.6 mg/dL Normal 8.6-10.3 [facility] Comment on above: Performed By: #### C BC, CMP, ETOH #### [facility] [address] [place] [address] [place] Cannabinoids [Presence] in U rine by Screen methodOrdered By: Jose Silverman on 10-02-2022 Cannabinoids Screen Ql (U) Negative Negative [facility] Comment on above: These are unconfirme d results and should not be used for legal purposes. Drug Cut-Off Concentration: AMPH 1000 ng/mL MIAH 200 ng/mL AYAN 200 ng/mL COCM 300 ng/mL OP 300 ng/mL PCP 25 ng/mL THC 20 ng/mL Carbon dioxide, total [Moles /volume] in Serum or PlasmaOrdered By: Jose Silverman on 10-02-2022 CO2 [Moles/Vol] 27.2 mmol/L Normal 21.0-31.0 [facility] Comment on above: Performed By: #### C BC, CMP, ETOH #### [place] [address] [place] Chloride [Moles/volume] in S brian or PlasmaOrdered By: Jose Silverman on 10-02-2022 Chloride [Moles/Vol] 101 mmol/L Normal 98-107 [facility] Comment on above: Performed By: #### C BC, CMP, ETOH #### [place] [address] [place] Color Auto (U)Ordered By: Loli Silverman on 10-02-2022 Color (U) Yellow Yellow [facility] Complete Blood Count Auto Di ffon 10-02-2022 Mean Corpuscular HGB Conc 32.0 g/dL Normal 32.0-35.0 [facility] Comment on above: Performed By: #### C BC, CMP, ETOH #### [place] [address] [place] Monocytes/100 WBC (Bld) 17.72 % Normal 0.00-20.00 [facility] Comment on above: Performed By: #### C BC, CMP, ETOH #### [address] NRBC% 0.0 /100{WBC} Normal 0-0.5 [facility] Comment on above: Performed By: #### C BC, CMP, ETOH #### [address] Comprehensive Metabolic Pane tung 10-02-2022 Albumin [Mass/Vol] 5.0 g/dL Normal 3.5-5.7 [facility] Comment on above: Performed By: #### C BC, CMP, ETOH #### [address] Creatinine Clr Calc Pharmacy 107.48 Normal [facility] Comment on above: Result Comment: PERF ORMED BY: [place] [address] PATHOLOGIST ACID TENDER ASHELY CAREY M.D. Performed By: #### C BC, CMP, ETOH #### [address] GFR/1.73 sq M.predicted MDRD (S/P/Bld) [Vol rate/Area] mL/min/{1.73_m2} Normal [facility] Comment on above: Performed By: #### C BC, CMP, ETOH #### [address] Creatinine [Mass/volume] in Serum or PlasmaOrdered By: Jose Silverman on 10-02-2022 Creatinine [Mass/Vol] 0.89 mg/dL Normal 0.60-1.20 [facility] Comment on above: Performed By: #### C BC, CMP, ETOH #### [place] [address] [place] Dipstick and Microscopicon 0 10-02-2022 Appearance (U) Clear Normal Clear [facility] Comment on above: Order Comment: Name Collection Type:: Clean-Voided Midstream Performed By: #### U RDS, ADDONUAPLUS, CUU, UHCG #### [address] Bacteria,Urine 2+ High None Seen [facility] Comment on above: Order Comment: Name Collection Type:: Clean-Voided Midstream Performed By: #### U RDS, ADDONUAPLUS, CUU, UHCG #### [facility] [address] [place] [address] [place] Bilirubin,Urine Negative Normal Negative [facility] Comment on above: Order Comment: Name Collection Type:: Clean-Voided Midstream Performed By: #### U RDS, ADDONUAPLUS, CUU, UHCG #### [facility] [address] [place] [address] Color (U) Yellow Normal Yellow [facility] Comment on above: Order Comment: Name Collection Type:: Clean-Voided Midstream Performed By: #### U RDS, ADDONUAPLUS, CUU, UHCG #### [facility] [address] [place] [address] Glucose Ql (U) Normal Normal Normal [facility] Comment on above: Order Comment: Name Collection Type:: Clean-Voided Midstream Performed By: #### U RDS, ADDONUAPLUS, CUU, UHCG #### [facility] [address] [place] [address] [place] Hyaline Casts,Urine 0-8 Normal 0-8 [facility] Comment on above: Order Comment: Name Collection Type:: Clean-Voided Midstream Performed By: #### U RDS, ADDONUAPLUS, CUU, UHCG #### [facility] [address] [place] [address] [place] Ketones Ql (U) Negative Normal Negative [facility] Comment on above: Order Comment: Name Collection Type:: Clean-Voided Midstream Performed By: #### U RDS, ADDONUAPLUS, CUU, UHCG #### [facility] [address] [place] [address] [place] Leukocyte esterase Test strip Ql (U) 3+ High Negative [facility] Comment on above: Order Comment: Name Collection Type:: Clean-Voided Midstream Performed By: #### U RDS, ADDONUAPLUS, CUU, UHCG #### [facility] [address] [place] [address] [place] Nitrite,Urine Negative Normal Negative [facility] Comment on above: Order Comment: Name Collection Type:: Clean-Voided Midstream Performed By: #### U RDS, ADDONUAPLUS, CUU, UHCG #### [address] Occult Blood,Urine Negative Normal Negative [facility] Comment on above: Order Comment: Name Collection Type:: Clean-Voided Midstream Performed By: #### U RDS, ADDONUAPLUS, CUU, UHCG #### [address] pH (U) 6.5 [pH] Normal 5.0-9.0 [facility] Comment on above: Order Comment: Name Collection Type:: Clean-Voided Midstream Performed By: #### U RDS, ADDONUAPLUS, CUU, UHCG #### [address] Protein,Urine Negative Normal Negative [facility] Comment on above: Order Comment: Name Collection Type:: Clean-Voided Midstream Performed By: #### U RDS, ADDONUAPLUS, CUU, UHCG #### [address] RBC LM.HPF (Urine sed) [#/Area] 0 /[HPF] Normal 0-4 [facility] Comment on above: Order Comment: Name Collection Type:: Clean-Voided Midstream Performed By: #### U RDS, ADDONUAPLUS, CUU, UHCG #### [address] Specificy [place],Urine 1.021 Normal 1.001-1.030 [facility] Comment on above: Order Comment: Name Collection Type:: Clean-Voided Midstream Performed By: #### U RDS, ADDONUAPLUS, CUU, UHCG #### [address] Squamous Epithelial Cell,Urine 10-19 High 0-2 [facility] Comment on above: Order Comment: Name Collection Type:: Clean-Voided Midstream Performed By: #### U RDS, ADDONUAPLUS, CUU, UHCG #### [facility] [address] [place] [address] Urobilinogen,Urine Normal Normal Normal [facility] Comment on above: Order Comment: Name Collection Type:: Clean-Voided Midstream Performed By: #### U RDS, ADDONUAPLUS, CUU, UHCG #### [facility] [address] [place] [address] WBC,Urine 10-19 High 0-4 [facility] Comment on above: Order Comment: Name Collection Type:: Clean-Voided Midstream Performed By: #### U RDS, ADDONUAPLUS, CUU, UHCG #### [address] Drug Screen,Urineon 10-03-19 Amphetamine Screen,Urine Negative Normal Negative [facility] Comment on above: Performed By: #### U RDS, ADDONUAPLUS, CUU, UHCG #### [place] [address] [place] Barbiturate Screen,Urine Negative Normal Negative [facility] Comment on above: Performed By: #### U RDS, ADDONUAPLUS, CUU, UHCG #### [facility] [address] [place] [address] [place] Benzodiazepines Screen,Urine Negative Normal Negative [facility] Comment on above: Performed By: #### U RDS, ADDONUAPLUS, CUU, UHCG #### [facility] [address] [place] [address] [place] Cannabinoid Screen,Urine Negative Normal Negative [facility] Comment on above: Result Comment: Thes e are unconfirmed results and should not be used for legal purposes. Drug Cut-Off Concentration: AMPH 1000 ng/mL MIAH 200 ng/mL AYAN 200 ng/mL COCM 300 ng/mL OP 300 ng/mL PCP 25 ng/mL THC 20 ng/mL PERFORMED BY: [place] [address] PATHOLOGIST ACID TENDER ASHELY CAREY M.D. Performed By: #### U RDS, ADDONUAPLUS, CUU, UHCG #### [facility] [address] [place] [address] [place] Cocaine Screen,Urine Negative Normal Negative [place] Comment on above: Performed By: #### U RDS, ADDONUAPLUS, CUU, UHCG #### [facility] [address] [place] [address] [place] Opiate Screen,Urine Negative Normal Negative [facility] Comment on above: Performed By: #### U RDS, ADDONUAPLUS, CUU, UHCG #### [address] Phencyclidine Screen,Urine Negative Normal Negative [facility] Comment on above: Performed By: #### U RDS, ADDONUAPLUS, CUU, UHCG #### [address] Erythrocyte distribution wid th [Ratio] by Automated countOrdered By: Jose Silverman on 10-02-2022 Erythrocyte distribution width (RBC) [Ratio] 15.8 % High 11.9-15.3 [facility] Comment on above: Performed By: #### C BC, CMP, ETOH #### [address] Erythrocytes [#/volume] in B lood by Automated countOrdered By: Jose Silverman on 10-02-2022 RBC (Bld) [#/Vol] 5.31 10*6/uL High 3.60-5.00 [facility] Comment on above: Performed By: #### C BC, CMP, ETOH #### [place] [address] [place] Ethanol [Mass/volume] in Ser um or PlasmaOrdered By: Jose Silverman on 10-02-2022 Ethanol [Mass/Vol] mg/dL Normal [facility] Comment on above: Performed By: #### C BC, CMP, ETOH #### [place] [address] [place] Ethanol [Mass/Vol] TNP [facility] Comment on above: Test not performed Ethyl Alcohol Profileon 09-08 Percent Ethanol Not performed Normal [facility] Comment on above: Result Comment: PERF ORMED BY: [place] [address] PATHOLOGIST ACID TENDER ASHELY CAREY M.D. Performed By: #### C BC, CMP, ETOH #### [facility] [address] [place] [id number] [place] Glucose [Mass/volume] in Ser um or PlasmaOrdered By: Jose Silverman on 10-02-2022 Glucose [Mass/Vol] 98 mg/dL Normal 70-100 [facility] Comment on above: ADA recommended refe rence rangeRandom Glucose Reference Range is dependent on time and content of last meal. Glucose of more than 200 mg/dL in a nonstressed, ambulatory subject supports the diagnosis of Diabetes Mellitus. Result Comment: [place] om Glucose Reference Range is dependent on time and content of last meal. Glucose of more than 200 mg/dL in a nonstressed, ambulatory subject supports the diagnosis of Diabetes Mellitus. ADA recommended reference range Performed By: #### C BC, CMP, ETOH #### [place] [id number] [place] HCG ( test) IA.rapi d Ql (U)Ordered By: Jose Silverman on 10-02-2022 HCG ( test) Ql (U) Negative [facility] HCG,Urineon 10-02-2022 Beta HCG ( test) Ql (U) Negative Normal [facility] Comment on above: Order Comment: Name Collection Type:: Clean-Voided Midstream Result Comment: PERF ORMED BY: [place] [address] PATHOLOGIST ACID TENDER ASHELY CAREY M.D. Performed By: #### U RDS, ADDONUAPLUS, CUU, UHCG #### [facility] [address] [place] [address] [place] Hematocrit [Volume Fraction] of Blood by Automated countOrdered By: Jose Silverman on 10-02-2022 Hematocrit (Bld) [Volume fraction] 41.7 % Normal 34.0-46.4 [facility] Comment on above: Performed By: #### C BC, CMP, ETOH #### [address] Hemoglobin [Mass/volume] in BloodOrdered By: Jose Silverman on 10-02-2022 Hemoglobin (Bld) [Mass/Vol] 13.3 g/dL Normal 11.8-15.4 [facility] Comment on above: Performed By: #### C BC, CMP, ETOH #### [address] Ketones Auto test strip (U) [Mass/Vol]Ordered By: Jose Silverman on 10-02-2022 Ketones (U) [Mass/Vol] Negative Negative [facility] - UrinalysisOrder ed By: Joes Silverman on 10-02-2022 Hyaline casts LM Ql (Urine sed) 0-8 [LPF] 0-8 [facility] Leukocytes [#/volume] correc ruby for nucleated erythrocytes in Blood by Automated counOrdered By: Jose Silverman on 10-02-2022 WBC corrected for nucl RBC Auto (Bld) [#/Vol] 12.9 10*3/uL 3.8-11.6 [facility] Leukocytes [#/volume] in Blo od by Automated countOrdered By: Jose Silverman on 10-02-2022 WBC (Bld) [#/Vol] 12.9 10*3/uL High 3.8-11.6 [facility] Comment on above: Performed By: #### C BC, CMP, ETOH #### [place] [address] [place] Lymphocytes [#/volume] in Bl ood by Automated countOrdered By: Jose Silverman on 10-02-2022 Lymphocytes (Bld) [#/Vol] 3.0 10*3/uL Normal 1.00-4.8 [facility] Comment on above: Performed By: #### C BC, CMP, ETOH #### [place] [address] [place] Lymphocytes/100 leukocytes i n Blood by Automated countOrdered By: Jose Silverman on 10-02-2022 Lymphocytes/100 WBC (Bld) 23.1 % Normal . [facility] Comment on above: Performed By: #### C BC, CMP, ETOH #### [address] MCH [Entitic mass] by Automa ruby countOrdered By: Jose Silverman on 10-02-2022 MCH (RBC) [Entitic mass] 25.2 pg Normal 24.7-34.3 [facility] Comment on above: Performed By: #### C BC, CMP, ETOH #### [address] MCHC Auto (RBC) [Mass/Vol]Or dered By: Jose Silverman on 10-02-2022 MCHC (RBC) [Mass/Vol] 32.0 g/dL 32.0-35.0 [facility] MCV [Entitic volume] by Auto mated countOrdered By: Jose Silverman on 10-02-2022 MCV (RBC) [Entitic vol] 78.5 fL Low 80-100 [facility] Comment on above: Performed By: #### C BC, CMP, ETOH #### [address] Monocyte distribution width [Entitic volume] in Blood by AutomatedOrdered By: Jose Silverman on 10-02-2022 Monocyte distribution width Auto (Bld) [Entitic vol] 17.72 % 0.00-20.00 [facility] Neutrophils [#/volume] in Bl ood by Automated countOrdered By: Jose Silverman on 10-02-2022 Neutrophils (Bld) [#/Vol] 8.9 10*3/uL High 1.8-7.7 [facility] Comment on above: Performed By: #### C BC, CMP, ETOH #### [address] Nitrite Test strip Ql (U)Ord ered By: Jose Silverman on 10-02-2022 Nitrite Ql (U) Negative Negative [facility] No Panel InformationOrdered By: Jose Silverman on 10-02-2022 Estimated GFR (CKD-EPI) > 60.0 mL/Min [facility] Creatinine Clearance (Chem 107.48 [facility] Nucleated erythrocytes [Pres ence] in Blood by Automated countOrdered By: Jose Silverman on 10-02-2022 Nucleated RBC Auto Ql (Bld) 0.0 /100{WBC} 0-0.5 [facility] Opiates [Presence] in Urine by Screen methodOrdered By: Jose Silverman on 10-02-2022 Opiates Screen Ql (U) Negative Negative [facility] Phencyclidine Screen Ql (U)O rdered By: Jose Silverman on 10-02-2022 Phencyclidine Ql (U) Negative Negative [place] Platelet mean volume [Entiti c volume] in Blood by Automated countOrdered By: Jose Silverman on 10-02-2022 Platelet mean volume (Bld) [Entitic vol] 7.7 fL Normal 6.3-10.7 [facility] Comment on above: Performed By: #### C BC, CMP, ETOH #### [facility] [address] [place] [address] Platelets [#/volume] in Bloo d by Automated countOrdered By: Jose Silverman on 10-02-2022 Platelets (Bld) [#/Vol] 342 10*3/uL Normal 150-450 [facility] Comment on above: Performed By: #### C BC, CMP, ETOH #### [facility] [address] [place] [address] Potassium [Moles/volume] in Serum or PlasmaOrdered By: Jose Silverman on 10-02-2022 Potassium [Moles/Vol] 3.8 mmol/L Normal 3.5-5.1 [facility] Comment on above: Performed By: #### C BC, CMP, ETOH #### [facility] [address] [place] [address] [place] Protein Auto test strip (U) [Mass/Vol]Ordered By: Jose Silverman on 10-02-2022 Protein (U) [Mass/Vol] Negative Negative [facility] Protein [Mass/volume] in Ser um or PlasmaOrdered By: Jose Silverman on 10-02-2022 Protein [Mass/Vol] 8.7 g/dL Normal 6.4-8.9 [facility] Comment on above: Performed By: #### C BC, CMP, ETOH #### [address] Serum globulin measurement b y calculation (mass/volume)Ordered By: Jose Silverman on 10-02-2022 Globulin (S) [Mass/Vol] 3.7 g/dL Normal F [facility] Comment on above: Performed By: #### C BC, CMP, ETOH #### [address] Serum or plasma albumin/glob ulin mass ratioOrdered By: Jose Silverman on 10-02-2022 Albumin/Globulin [Mass ratio] 1.4 {ratio} Normal [facility] Comment on above: Performed By: #### C BC, CMP, ETOH #### [address] Serum or plasma anion gap de terminationOrdered By: oJse Silverman on 10-02-2022 Anion gap [Moles/Vol] 12.6 mmol/L Normal 6.0-15.0 [facility] Comment on above: Performed By: #### C BC, CMP, ETOH #### [address] Sodium [Moles/volume] in Ser um or PlasmaOrdered By: Jose Silverman on 10-02-2022 Sodium [Moles/Vol] 137 mmol/L Normal 136-145 [facility] Comment on above: Performed By: #### C BC, CMP, ETOH #### [address] Specific gravity Auto test s trip (U) [Rel density]Ordered By: Jose Silverman on 10-02-2022 Specific gravity (U) [Rel density] 1.021 1.001-1.030 [facility] Squamous epithelial cells de tection in urine sediment by light microscopyOrdered By: Jose Silverman on 10-02-2022 Epithelial cells.squamous LM Ql (Urine sed) 10-19 [HPF] 0-2 [facility] Urea nitrogen [Mass/volume] in Serum or PlasmaOrdered By: Jose Silverman on 10-02-2022 Urea nitrogen [Mass/Vol] 18 mg/dL Normal 7-25 [facility] Comment on above: Performed By: #### C BC, CMP, ETOH #### [facility] [address] [place] [address] [place] Urine Cultureon 10-02-2022 Bacteria identified Cx Nom (U) ORGANISM: Strep agalactiae - (group b) (O:STRAGA) [place] Count 50,000 PERFORMED BY: [place] [address] PATHOLOGIST ACID TENDER ASHELY CAREY M.D. Normal [facility] Comment on above: Performed By: #### U RDS, ADDONUAPLUS, CUU, UHCG #### [facility] [address] [place] [address] Urine bacteria detection by automated methodOrdered By: Jose Silverman on 10-02-2022 Bacteria Auto Ql (U) 2+ None Seen [place] Urine clarity by refractomet ry automatedOrdered By: Jose Silverman on 10-02-2022 Clarity Refractometry automated (U) Clear Clear [facility] Urine glucose measurement by automated test strip (mass/volume)Ordered By: Jose Silverman on 10-02-2022 Glucose Auto test strip (U) [Mass/Vol] Normal mg/dL Normal [facility] Urine hemoglobin detection b y automated test stripOrdered By: Jose Silverman on 10-02-2022 Hemoglobin Auto test strip Ql (U) Negative Negative [facility] Urine leukocyte esterase det ection by automated test stripOrdered By: Jose Silverman on 10-02-2022 Leukocyte esterase Auto test strip Ql (U) 3+ Negative [facility] Urobilinogen Auto test strip (U) [Mass/Vol]Ordered By: Jose Silverman on 10-02-2022 Urobilinogen (U) [Mass/Vol] Normal mg/dL Normal [facility] pH Auto test strip (U)Ordere d By: Jose Silverman on 10-02-2022 pH (U) 6.5 [pH] 5.0-9.0 [facility] Quick Strepon 09-25-2022 S. pyogenes Org specific cx Ql (Throat) Negative [facility] Other Quick Strep [facility] Other CHEMISTRYOrdered By: SYSTEM SYSTEM on 09-06-2022 Anion gap [Moles/Vol] 10 mmol/L Normal 6 - 16 mEq/L [facility] Calcium [Mass/Vol] 9.2 mg/dL Normal 8.9 [...] AM) Normal Negative [facility] UA Auto SS [place].plasma/[place].R BC (Bld) [Mass ratio] >30 /HPF Invalid [...] AM) Invalid Interpretation Code 1.005 - 1.030 [facility] UA Auto SS UA Spec Desc Clean Catch (09/06/22 11:19 AM) Normal [facility] UA Auto SS Urobilinogen Qn (U) [id number] {Georgina'U}/dL Normal 0.0 - 1.0 EU/dL [facility] Auto SS WBC Auto Ql (U) Negative (09/06/22 11:19 AM) Normal Negative [facility] UA Auto SS WBC LM.HPF (Urine sed) [#/Area] 0-5 /HPF Normal 0-5/HPF [facility] UA Auto SS BLOOD BANKOrdered By: John Montague on 08-14-2022 ABO/Rh Interp Positive Invalid Interpretation Code [facility] BB Subsection CHEMISTRYOrdered By: SYSTEM SYSTEM on [...] 3.2 g/dL Normal 1.4 - 4.0 gm/dL [facility] Glucose [Mass/Vol] 111 mg/dL Normal 55 - 199 mg/dL [facility] Lipase [Catalytic activity/Vol] 38 U/L Normal 13 - 58 unit/L [facility] Potassium [Moles/Vol] 3.7 mmol/L Normal 3.5 - 5.3 mmol/L [facility] Protein [Mass/Vol] 7.2 g/dL Normal 6.0 - 7.8 gm/dL [facility] Sodium [Moles/Vol] 136 mmol/L Normal 135 - 145 mmol/L [facility] Urea nitrogen [Mass/Vol] 14 mg/dL Normal 5 - 21 mg/d L [facility] Urea nitrogen/Creatinine [Mass ratio] 18 mg/mg Normal 10 - 20 [facility] CHEMISTRYOrdered By: Kenneth stark on 08-14-2022 HCG.beta subunit Qn 267 m[IU]/mL High 1 - 3 mIU/mL [facility] HEMATOLOGYOrdered By: SYSTEM SYSTEM on 08-14-2022 [...] PM) Normal Negative [facility] UA Auto SS [place].plasma/[place].R BC (Bld) [Mass ratio] 0-3 /HPF Normal [...] [facility] UA Auto SS Urobilinogen Qn (U) 0.7709018 {[place]'U}/dL Normal 0.0 - 1.0 EU/dL [facility] UA Auto SS WBC Auto Ql (U) Negative (08/14/22 7:29 PM) Normal Negative [facility] UA Auto SS WBC LM.HPF (Urine sed) [#/Area] 0-5 /HPF Normal 0-5/HPF [facility] UA Auto SS CHLAMYDIA/GONOCOCCUS ALFREDO (SW AB/URINE/PAPon 07-15-2022 Chlamydia trachomatis, ALFREDO Negative Normal Negative [facility] Comment on above: Performed By: #### C T/NGNA #### [facility] [address] [address] [address] Cyril Hendricks Neisseria gonorrhoeae, ALFREDO Negative Normal Negative [facility] Comment on above: Performed By: #### C T/NGNA #### [facility] [address] [address] [address] Cyril Hendricks VAGINITIS/VAGINOSIS DNA PROB Maurice 07-13-2022 Krista species Negative Normal Negative [facility] Comment on above: Performed By: #### U MICRO, UACSIND #### [facility] [address] [address] [address] Cyril Hendricks Gardnerella vaginalis Positive Abnormal Negative [facility] Comment on above: Performed By: #### U MICRO, UACSIND #### [facility] [address] [address] [address] Cyril Hendricks Trichomonas vaginalis Negative Normal Negative [facility] Comment on above: Performed By: #### U MICRO, UACSIND #### [facility] [address] [address] [address] Cyril Hendricks COVID/FLU RT-PCRon SARS-CoV-2 (COVID-19) RNA ALFREDO+probe Ql (Unsp spec) Negative [facility] Other COVID/FLU RT-PCR Negative [facility] Other Quick Strepon 06-24-2022 S. pyogenes Org specific cx Ql (Throat) Negative [facility] Other Quick Strep [facility] Other CBC AUTO DIFFon 01-08-2022 BASO # 0.1 103/ul Normal 0.0-0.1 [facility] Comment on above: Performed By: #### C BC #### [facility] [address] [address] [address] Cyril Hendricks Basophils/100 WBC (Bld) 0.4 % Normal 0.2-2.0 [facility] Comment on above: Performed By: #### C BC #### [facility] [address] [address] [address] Cyril Hendricks EO # 0.1 103/ul Normal 0.0-0.7 [facility] Comment on above: Performed By: #### C BC #### [facility] [address] [place] [address] Dr. Cyril Hendricks Eosinophils/100 WBC (Bld) 0.9 % Normal 0.9-7.0 [facility] Comment on above: Performed By: #### C BC #### [facility] [address] [address] [address] Cyril Hendricks Erythrocyte distribution width (RBC) [Ratio] 12.3 % Normal 11.0-15.0 [facility] Comment on above: Performed By: #### C BC #### [facility] [address] [place] [address] Dr. Cyril Hendricks Hematocrit (Bld) [Volume fraction] 30.0 % Critically low 36.0-48.0 [facility] Comment on above: Performed By: #### C BC #### [facility] [address] [place] [address] Dr. Cyril Hendricks Hemoglobin (Bld) [Mass/Vol] 10.2 g/dL Critically low 12.0-16.0 [facility] Comment on above: Performed By: #### C BC #### [facility] [address] [place] [address] Dr. Cyril Hendricks IG # 0.05 10e3/ul Critically high 0.00-0.03 [facility] Comment on above: Performed By: #### C BC #### [facility] [address] [place] [address] Dr. Cyril Hendricks IG % 0.4 % Normal 0.0-0.5 [facility] Comment on above: Performed By: #### C BC #### [facility] [address] [place] [address] Dr. Cyril Hendricks LYMPH # 2.8 103/ul Normal 1.2-3.8 [facility] Comment on above: Performed By: #### C BC #### [facility] [address] [place] [address] Dr. Cyril Hendricks Lymphocytes/100 WBC (Bld) 19.7 % Critically low 20.5-60.0 [facility] Comment on above: Performed By: #### C BC #### [facility] [address] [place] [address] Dr. Cyril Hendricks MANUAL DIFF REQ NO Normal [facility] Comment on above: Performed By: #### C BC #### [facility] [address] [place] [address] Dr. Cyril Hendricks MCH (RBC) [Entitic mass] 30.6 pg Normal 26.7-34.0 [facility] Comment on above: Performed By: #### C BC #### [facility] [address] [place] [address] Dr. Cyril Hendricks MCHC (RBC) [Mass/Vol] 34.0 g/dL Normal 29.9-35.2 [facility] Comment on above: Performed By: #### C BC #### [facility] [address] [place] [address] Dr. Cyril Hendricks MCV (RBC) [Entitic vol] 90.1 fL Normal 81.0-99.0 [facility] Comment on above: Performed By: #### C BC #### [facility] [address] [place] [address] Dr. Cyril Hendricks MONO # 0.8 103/ul Normal 0.3-0.8 [facility] Comment on above: Performed By: #### C BC #### [facility] [address] [place] [address] Dr. Cyril Hendricks Monocytes/100 WBC (Bld) 5.9 % Normal 1.7-12.0 [facility] Comment on above: Performed By: #### C BC #### [facility] [address] [place] [address] Dr. Cyril Hendricks NEUT # 10.3 103/ul Critically high 1.4-6.5 [facility] Comment on above: Performed By: #### C BC #### [facility] [address] [place] [address] Dr. Cyril Hendricks Neutrophils/100 WBC (Bld) 72.7 % Normal 43.0-75.0 [facility] Comment on above: Performed By: #### C BC #### [facility] [address] [place] [address] Dr. Cyril Hendricks Platelet mean volume (Bld) [Entitic vol] 9.8 fL Normal 9.5-13.5 [facility] Comment on above: Performed By: #### C BC #### [facility] [address] [place] [address] Dr. Cyril Hendricks PLT 207 103/ul Normal 150-450 [facility] Comment on above: Performed By: #### C BC #### [facility] [address] [place] [address] Dr. Cyril Hendricks RBC 3.33 106/ul Critically low 4.20-5.40 [facility] Comment on above: Performed By: #### C BC #### [facility] [address] [place] [address] Dr. Cyril Hendricks WBC 14.2 103/ul Critically high 4.0-11.0 [facility] Comment on above: Performed By: #### C BC #### [facility] [address] [place] [address] Dr. Cyril Hendricks CBC AUTO DIFFon 01-07-2022 BASO # 0.1 103/ul Normal 0.0-0.1 [facility] Comment on above: Performed By: #### U MICRO, UACSIND #### [facility] [address] [place] [address] Dr. Cyril Hendricks Basophils/100 WBC (Bld) 0.5 % Normal 0.2-2.0 [facility] Comment on above: Performed By: #### U MICRO, UACSIND #### [facility] [address] [place] [address] Dr. Cyril Hendricks EO # 0.1 103/ul Normal 0.0-0.7 [facility] Comment on above: Performed By: #### U MICRO, UACSIND #### [facility] [address] [place] [address] Dr. Cyril Hendricks Eosinophils/100 WBC (Bld) 0.9 % Normal 0.9-7.0 [facility] Comment on above: Performed By: #### U MICRO, UACSIND #### [facility] [address] [place] [address] Dr. Cyril Hendricks Erythrocyte distribution width (RBC) [Ratio] 12.4 % Normal 11.0-15.0 [facility] Comment on above: Performed By: #### U MICRO, UACSIND #### [facility] [address] [place] [address] Dr. Cyril Hendricks Hematocrit (Bld) [Volume fraction] 34.3 % Critically low 36.0-48.0 [facility] Comment on above: Performed By: #### U MICRO, UACSIND #### [facility] [address] [place] [address] Dr. Cyril Hendricks Hemoglobin (Bld) [Mass/Vol] 11.6 g/dL Critically low 12.0-16.0 [facility] Comment on above: Performed By: #### U MICRO, UACSIND #### [facility] [address] [place] [address] Dr. Cyril Hendricks IG # 0.06 10e3/ul Critically high 0.00-0.03 [facility] Comment on above: Performed By: #### U MICRO, UACSIND #### [facility] [address] [place] [address] Dr. Cyril Hendricks IG % 0.4 % Normal 0.0-0.5 [facility] Comment on above: Performed By: #### U MICRO, UACSIND #### [facility] [address] [address] [address] Cyril Hendricks LYMPH # 3.1 103/ul Normal 1.2-3.8 [facility] Comment on above: Performed By: #### U MICRO, UACSIND #### [facility] [address] [place] [address] Dr. Cyril Hendricks Lymphocytes/100 WBC (Bld) 20.4 % Critically low 20.5-60.0 [facility] Comment on above: Performed By: #### U MICRO, UACSIND #### [facility] [address] [place] [address] Dr. Cyril Hendricks MANUAL DIFF REQ NO Normal [facility] Comment on above: Performed By: #### U MICRO, UACSIND #### [facility] [address] [place] [address] Dr. Cyril Hendricks MCH (RBC) [Entitic mass] 30.6 pg Normal 26.7-34.0 [facility] Comment on above: Performed By: #### U MICRO, UACSIND #### [facility] [address] [place] [address] Dr. Cyril Hendricks MCHC (RBC) [Mass/Vol] 33.8 g/dL Normal 29.9-35.2 [facility] Comment on above: Performed By: #### U MICRO, UACSIND #### [facility] [address] [place] [address] Dr. Cyril Hendricks MCV (RBC) [Entitic vol] 90.5 fL Normal 81.0-99.0 [facility] Comment on above: Performed By: #### U MICRO, UACSIND #### [facility] [address] [place] [address] Dr. Cyril Hendricks MONO # 0.9 103/ul Critically high 0.3-0.8 [facility] Comment on above: Performed By: #### U MICRO, UACSIND #### [facility] [address] [place] [address] Dr. Cyril Hendricks Monocytes/100 WBC (Bld) 6.2 % Normal 1.7-12.0 [facility] Comment on above: Performed By: #### U MICRO, UACSIND #### [facility] [address] [address] [address] Cyril Hendricks NEUT # 10.9 103/ul Critically high 1.4-6.5 [facility] Comment on above: Performed By: #### U MICRO, UACSIND #### [facility] [address] [address] [address] Cyril Hendricks Neutrophils/100 WBC (Bld) 71.6 % Normal 43.0-75.0 [facility] Comment on above: Performed By: #### U MICRO, UACSIND #### [facility] [address] [place] [address] Dr. Cyril Hendricks Platelet mean volume (Bld) [Entitic vol] 11.1 fL Normal 9.5-13.5 [facility] Comment on above: Performed By: #### U MICRO, UACSIND #### [facility] [address] [place] [address] Dr. Cyril Hendricks PLT 240 103/ul Normal 150-450 [facility] Comment on above: Performed By: #### U MICRO, UACSIND #### [facility] [address] [place] [address] Dr. Cyril Hendricks RBC 3.79 106/ul Critically low 4.20-5.40 [facility] Comment on above: Performed By: #### U MICRO, UACSIND #### [facility] [address] [place] [address] Dr. Cyril Hendricks WBC 15.3 103/ul Critically high 4.0-11.0 [facility] Comment on above: Performed By: #### U MICRO, UACSIND #### [facility] [address] [place] [address] Dr. Cyril Hendricks [facility]on SARS-CoV-2 (COVID-19) RNA ALFREDO+probe Ql (Unsp spec) Not detected Normal NOT DETECTED [facility] Comment on above: Result Comment: When [...] for this test is supported by the [place] of Health and Human Service's declaration that [...] used). Performed By: #### H CVPCRR #### [facility] [address] [place] [address] Dr. Cyril Hendricks DRUG SCREEN RAPID (URINE)on 01-07-2022 AMP Negative Normal NEGATIVE [facility] Comment on above: Performed By: #### U MICRO, UACSIND #### [facility] [address] [place] [address] Dr. Cyril Hendricks BAR Negative Normal NEGATIVE [facility] Comment on above: Performed By: #### U MICRO, UACSIND #### [facility] [address] [place] [address] Dr. Cyril Hendricks BUP Negative Normal NEGATIVE [facility] Comment on above: Performed By: #### U MICRO, UACSIND #### [facility] [address] [place] [address] Dr. Cyril Hendricks BZO Negative Normal NEGATIVE [facility] Comment on above: Performed By: #### U MICRO, UACSIND #### [facility] [address] [place] [address] Dr. Cyril Hendricks DARIN Negative Normal NEGATIVE [facility] Comment on above: Performed By: #### U MICRO, UACSIND #### [facility] [address] [place] [address] Dr. Cyril Hendricks CUT-OFFS SEE BELOW Normal [facility] Comment on above: Result Comment: AMP (Amphetamine): [...] Performed By: #### U MICRO, UACSIND #### [facility] [address] [place] [address] Dr. Cyril Hendricks DRUG CUT HEADER DRUG CLASS TEST SYSTEM CUT-OFF CONCENTRATIONS ARE FOLLOWS: Normal [facility] Comment on above: Performed By: #### U MICRO, UACSIND #### [facility] [address] [place] [address] Dr. Cyril Hendricks mAMP Negative Normal NEGATIVE [facility] Comment on above: Performed By: #### U MICRO, UACSIND #### [facility] [address] [place] [address] Dr. Cyril Hendricks MTD Negative Normal NEGATIVE [facility] Comment on above: Performed By: #### U MICRO, UACSIND #### [facility] [address] [address] [address] Cyril Hendricks OPI Negative Normal NEGATIVE [facility] Comment on above: Performed By: #### U MICRO, UACSIND #### [facility] [address] [address] [address] Cyril Hendricks OXY Negative Normal NEGATIVE [facility] Comment on above: Performed By: #### U MICRO, UACSIND #### [facility] [address] [address] [address] Cyril Hendricks PCP Negative Normal NEGATIVE [facility] Comment on above: Performed By: #### U MICRO, UACSIND #### [facility] [address] [place] [address] Dr. Cyril Hendricks PPX Negative Normal NEGATIVE [facility] Comment on above: Performed By: #### U MICRO, UACSIND #### [facility] [address] [place] [address] Dr. Cyril Hendricks TCA Negative Normal NEGATIVE [facility] Comment on above: Performed By: #### U MICRO, UACSIND #### [facility] [address] [place] [address] Dr. Cyril Hendricks THC Negative Normal NEGATIVE [facility] Comment on above: Performed By: #### U MICRO, UACSIND #### [facility] [address] [place] [address] Dr. Cyril Hendricks TYPE AND SCREENon 01-07-2022 TYPE AND SCREEN Negative Normal [facility] Comment on above: Performed By: #### H CVPCRR #### [facility] [address] [place] [address] Dr. Cyril Hendricks CULTURE URINEon 12-29-2021 CULTURE URINE Culture Observations: NO GROWTH. Normal [facility] Comment on above: Performed By: #### U RCX #### [facility] [address] [place] [address] Dr. Cyril Hendricks UA (CLEAN/CATCH) INTEGRATION ENGINEER/MICRO I F IND.on 12-29-2021 Bilirubin Ql (U) Negative Normal NEGATIVE [facility] Comment on above: Performed By: #### U MICRO, UACSIND #### [facility] [address] [place] [address] Dr. Cyril Hendricks Clarity (U) SL CLOUDY Abnormal CLEAR [facility] Comment on above: Performed By: #### U MICRO, UACSIND #### [facility] [address] [place] [address] Dr. Cyril Hendricks Color (U) LT. YELLOW Normal YELLOW [facility] Comment on above: Performed By: #### U MICRO, UACSIND #### [facility] [address] [place] [address] Dr. Cyril Hendricks Glucose Ql (U) Negative Normal NEGATIVE [facility] Comment on above: Performed By: #### U MICRO, UACSIND #### [facility] [address] [address] [address] Cyril Hendricks Hemoglobin Ql (U) Negative Normal NEGATIVE [facility] Comment on above: Performed By: #### U MICRO, UACSIND #### [facility] [address] [address] [address] Cyril Hendricks Ketones Ql (U) Negative Normal NEGATIVE [facility] Comment on above: Performed By: #### U MICRO, UACSIND #### [facility] [address] [address] [address] Cyril Hendricks LEUKOCYTES LARGE Abnormal NEGATIVE [facility] Comment on above: Performed By: #### U MICRO, UACSIND #### [facility] [address] [place] [address] Dr. Cyril Hendricks Nitrite Ql (U) Negative Normal NEGATIVE [facility] Comment on above: Performed By: #### U MICRO, UACSIND #### [facility] [address] [place] [address] Dr. Cyril Hendricks pH (U) 6.5 [pH] Normal 5-9 [facility] Comment on above: Performed By: #### U MICRO, UACSIND #### [facility] [address] [place] [address] Dr. Cyril Hendricks SPEC GRAVITY 1.010 Normal 1.005-<=1.02 5 [facility] Comment on above: Performed By: #### U MICRO, UACSIND #### [facility] [address] [place] [address] Dr. Cyril Hendricks UA PROTEIN Negative Normal NEGATIVE/ TRACE [facility] Comment on above: Performed By: #### U MICRO, UACSIND #### [facility] [address] [place] [address] Dr. Cyril Hendricks UR MICRO IND INDICATED Normal [facility] Comment on above: Performed By: #### U MICRO, UACSIND #### [facility] [address] [place] [address] Dr. Cyril Hendricks Urobilinogen Qn (U) 0.2 {Georgina'U}/dL Normal 0.2 - 1. 0 [facility] Comment on above: Performed By: #### U MICRO, UACSIND #### [facility] [address] [place] [address] Dr. Cyril Hendricks URINE MICROSCOPIC ONLYon BACTERIA SMALL Abnormal NONE SEEN [facility] Comment on above: Performed By: #### U MICRO, UACSIND #### [facility] [address] [address] [address] Cyril Hendricks Bacteria identified Cx Nom (U) INDICATED Normal [facility] Comment on above: Performed By: #### U MICRO, UACSIND #### [facility] [address] [place] [address] Dr. Cyril Hendricks CAST NONE SEEN Normal NONE SEEN [facility] Comment on above: Performed By: #### U MICRO, UACSIND #### [facility] [address] [place] [address] Dr. Cyril Hendricks Crystals LM Nom (Urine sed) NONE SEEN Normal NONE SEEN [facility] Comment on above: Performed By: #### U MICRO, UACSIND #### [facility] [address] [place] [address] Dr. Cyril Hendricks Epithelial cells LM Ql (Urine sed) MANY Abnormal NONE SEEN /RARE [facility] Comment on above: Performed By: #### U MICRO, UACSIND #### [facility] [address] [place] [address] Dr. Cyril Hendricks MUCOUS NONE SEEN Normal NONE SEEN [facility] Comment on above: Performed By: #### U MICRO, UACSIND #### [facility] [address] [place] [address] Dr. Cyril Hendricks RBC 0-2 Normal 0-2 [facility] Comment on above: Performed By: #### U MICRO, UACSIND #### [facility] [address] [place] [address] Dr. Cyril Hendricks WBC 10-20 Abnormal NONE SEEN [facility] Comment on above: Performed By: #### U MICRO, UACSIND #### [facility] [address] [place], [place] [address] Dr. Cyril Hendricks GROUP B STREP CULTUREon 12-07 S. agalactiae Ag Ql (Unsp spec) Culture Observations: NEGATIVE FOR GROUP B STREPTOCOCCUS. Normal [facility] Comment on above: Performed By: #### G BSCX #### [facility] [address] [place], [place] [address] Dr. Cyril Hendricks SSAon 12-13-2021 SSA <0.3 Normal <7.0 [facility] Comment on above: Result Comment: Reference Range: <7.0 Negative 7.0-10.0 Equivocal >10.0 Positive Performed By: #### S SARO, TSH, FT4, SSBLA #### [facility] [address] [place] [id number] Hospice Administrator: Homer Hoffman MD SSBon 12-13-2021 SSB <0.3 Normal <7.0 [facility] Comment on above: Result Comment: Reference Range: <7.0 Negative 7.0-10.0 Equivocal >10.0 Positive Performed By: #### S SARO, TSH, FT4, SSBLA #### [facility] [address] [place] [id number] Hospice Administrator: Homer Hoffman MD No Panel Informationon 12-12 [facility] T4, Freeon 12-12-2021 Thyroxine, Free 0.98 ng/dL 0.93 - 1.70 ng/dL [facility] TSHon 12-12-2021 TSH Qn 4.35 m[IU]/L [facility] Thyroid Stim. Horm.on 2021 Thyroid Stim. Horm. 4.35 uIU/mL Normal 0.30-5.00 [facility] Comment on above: Performed By: #### S SARO, TSH, FT4, SSBLA #### [facility] [address] [place] [id number] Hospice Administrator: Homer Hoffman MD Thyroxine, Freeon 12-12-2021 Thyroxine, Free 0.98 ng/dL Normal 0.93-1.70 [facility] Comment on above: Performed By: #### S SARO, TSH, FT4, SSBLA #### [facility] [address] [place] [address] Hospice Administrator: Homer Hoffman MD US PREG BIOPHY W [...] by: SOFIA KABA Date: 2021-11-27 13:55 Normal [facility] COVID + FLU Quick Testingon 11-13-2021 SARS-CoV-2 (COVID-19) RNA ALFREDO+probe Ql (Unsp spec) Negative [facility] [email or web address] Other COVID + FLU Quick Testing Negative [facility] [email or web address] Other GLUCOSE - 1HRon 10-23-2021 Glucose [Mass/Vol] 83 mg/dL Normal 74-106 [facility] Comment on above: Performed By: #### G LU1HR #### [facility] [address] [place] [address] Dr. Cyril Hendricks CHLAMYDIA/GONOCOCCUS ALFREDO ( AB/URINE/PAPon 10-05-2021 Chlamydia trachomatis, ALFREDO Negative Normal Negative [facility] Comment on above: Performed By: #### C T/NGNA #### [facility] [address] [place] [address] Dr. Cyril Hendricks Neisseria gonorrhoeae, ALFREDO Negative Normal Negative [facility] Comment on above: Performed By: #### C T/NGNA #### [facility] [address] [place] [address] Dr. Cyril Hendricks VAGINITIS/VAGINOSIS DNA PROB Maurice 10-04-2021 Krista species Positive Abnormal Negative [facility] Comment on above: Performed By: #### H CVPCRR #### [facility] [address] [place] [address] Dr. Cyril Hendricks Gardnerella vaginalis Negative Normal Negative [facility] Comment on above: Performed By: #### H CVPCRR #### [facility] [address] [place] [address] Dr. Cyril Hendricks Trichomonas vaginalis Negative Normal Negative [facility] Comment on above: Performed By: #### H CVPCRR #### [facility] [address] [place] [address] Dr. Cyril Hendricks HEP B SURFACE ANTIGEN SCREEN on 10-03-2021 HBsAg Screen Negative Normal Negative [facility] Comment on above: Performed By: #### H CVPCRR #### [facility] [address] [place] [address] Dr. Cyril Hendricks HEPATITIS C VIRUS AB W/ REFL EX QUANTon 10-03-2021 HCV AB <0.1 Normal 0.0-0.9 [facility] Comment on above: Performed By: #### H CVPCRR #### [facility] [address] [place] [address] Dr. Cyril Hendricks Interpretation: Comment Normal [facility] Comment on above: Result Comment: Nega tive Not infected with HCV, unless recent infection is suspected or other evidence exists to indicate HCV infection. Performed By: #### H CVPCRR #### [facility] [address] [place] [address] Dr. Cyril Hendricks HIV 1 AND 2 WITH REFLEXon HIV Screen 4th Generation wRfx Non-Reactive Normal Non Reactive [facility] Comment on above: Result Comment: HIV Negative HIV-1/HIV-2 antibodies and HIV-1 p24 antigen were NOT detected. There is no laboratory evidence of HIV infection. Performed By: #### H IV12 #### [facility] [address] [place] [address] Dr. Cyril Hendricks RPR QUANTon 10-03-2021 Rapid Plasma Reagin, Quant Non-Reactive Normal NonRea<1:1 [facility] Comment on above: Result Comment: Juliette brito Note: This test does not meet current guidelines for screening and diagnosis of syphilis. This test is intended for following treatment response in patients being treated for syphilis infection. To screen for syphilis infection, a reflex cascade that includes both RPR and a treponema-specific assay should be utilized, such as Treponema pallidum (Syphilis) Screening Canon (303728) or Rapid Plasma Reagin (RPR) Test With Reflex to Quantitative RPR and Confirmatory Treponema pallidum Antibodies (646213). Performed By: #### U MICRO, UACSIND #### [facility] [address] [place] [address] Dr. Cyril Hendricks RUBELLA AB IGGon 10-03-2021 Rubella Antibodies, IgG <0.90 Critically low Immune > 0.99 [facility] Comment on above: Result Comment: Non- immune <0.90 Equivocal 0.90 - 0.99 Immune >0.99 Performed By: #### U MICRO, UACSIND #### [facility] [address] [place] [address] Dr. Cyril Hendricks CBC AUTO DIFFon 10-02-2021 BASO # 0.1 103/ul Normal 0.0-0.1 [facility] Comment on above: Performed By: #### U MICRO, UACSIND #### [facility] [address] [place] [address] Dr. Cyril Hendricks Basophils/100 WBC (Bld) 0.4 % Normal 0.2-2.0 [facility] Comment on above: Performed By: #### U MICRO, UACSIND #### [facility] [address] [place] [address] Dr. Cyril Hendricks EO # 0.1 103/ul Normal 0.0-0.7 [facility] Comment on above: Performed By: #### U MICRO, UACSIND #### [facility] [address] [place] [address] Dr. Cyril eHndricks Eosinophils/100 WBC (Bld) 1.1 % Normal 0.9-7.0 [facility] Comment on above: Performed By: #### U MICRO, UACSIND #### [facility] [address] [place] [address] Dr. Cyril Hendricks Erythrocyte distribution width (RBC) [Ratio] 13.5 % Normal 11.0-15.0 [facility] Comment on above: Performed By: #### U MICRO, UACSIND #### [facility] [address] [place] [address] Dr. Cyril Hendricks Hematocrit (Bld) [Volume fraction] 34.5 % Critically low 36.0-48.0 [facility] Comment on above: Performed By: #### U MICRO, UACSIND #### [facility] [address] [place] [address] Dr. Cyril Hendricks Hemoglobin (Bld) [Mass/Vol] 12.0 g/dL Normal 12.0-16.0 [facility] Comment on above: Performed By: #### U MICRO, UACSIND #### [facility] [address] [place] [address] Dr. Cyril Hendricks IG # 0.04 10e3/ul Critically high 0.00-0.03 [facility] Comment on above: Performed By: #### U MICRO, UACSIND #### [facility] [address] [place] [address] Dr. Cyril Hendricks IG % 0.3 % Normal 0.0-0.5 [facility] Comment on above: Performed By: #### U MICRO, UACSIND #### [facility] [address] [place] [address] Dr. Cyril Hendricks LYMPH # 2.6 103/ul Normal 1.2-3.8 [facility] Comment on above: Performed By: #### U MICRO, UACSIND #### [facility] [address] [place] [address] Dr. Cyril Hendricks Lymphocytes/100 WBC (Bld) 21.3 % Normal 20.5-60.0 [facility] Comment on above: Performed By: #### U MICRO, UACSIND #### [facility] [address] [address] [address] Cyril Hendricks MANUAL DIFF REQ NO Normal [facility] Comment on above: Performed By: #### U MICRO, UACSIND #### [facility] [address] [address] [address] Cyril Hendricks MCH (RBC) [Entitic mass] 32.5 pg Normal 26.7-34.0 [facility] Comment on above: Performed By: #### U MICRO, UACSIND #### [facility] [address] [place] [address] Dr. Cyril Hendricks MCHC (RBC) [Mass/Vol] 34.8 g/dL Normal 29.9-35.2 [facility] Comment on above: Performed By: #### U MICRO, UACSIND #### [facility] [address] [place] [address] Dr. Cyril Hendricks MCV (RBC) [Entitic vol] 93.5 fL Normal 81.0-99.0 [facility] Comment on above: Performed By: #### U MICRO, UACSIND #### [facility] [address] [place] [address] Dr. Cyril Hendricks MONO # 0.8 103/ul Normal 0.3-0.8 [facility] Comment on above: Performed By: #### U MICRO, UACSIND #### [facility] [address] [place] [address] Dr. Cyril Hendricks Monocytes/100 WBC (Bld) 6.2 % Normal 1.7-12.0 [facility] Comment on above: Performed By: #### U MICRO, UACSIND #### [facility] [address] [place] [address] Dr. Cyril Hendricks NEUT # 8.6 103/ul Critically high 1.4-6.5 [facility] Comment on above: Performed By: #### U MICRO, UACSIND #### [facility] [address] [place] [address] Dr. Cyril Hendricks Neutrophils/100 WBC (Bld) 70.7 % Normal 43.0-75.0 [facility] Comment on above: Performed By: #### U MICRO, UACSIND #### [facility] [address] [address] [address] Cyril Hendricks Platelet mean volume (Bld) [Entitic vol] 9.1 fL Critically low 9.5-13.5 [facility] Comment on above: Performed By: #### U MICRO, UACSIND #### [facility] [address] [address] [address] Cyril Hendricks PLT 257 103/ul Normal 150-450 [facility] Comment on above: Performed By: #### U MICRO, UACSIND #### [facility] [address] [address] [address] Cyril Hendricks RBC 3.69 106/ul Critically low 4.20-5.40 [facility] Comment on above: Performed By: #### U MICRO, UACSIND #### [facility] [address] [address] [address] Cyril Hendricks WBC 12.2 103/ul Critically high 4.0-11.0 [facility] Comment on above: Performed By: #### U MICRO, UACSIND #### [facility] [address] [place] [address] Dr. Cyril Hendricks CULTURE URINEon 10-02-2021 CULTURE URINE Culture Observations: MODERATE GROWTH OF MIXED GENITAL DRAGAN. NO POTENTIAL PATHOGENS SEEN. Normal [facility] Comment on above: Performed By: #### H CVPCRR #### [facility] [address] [place] [address] Dr. Cyril Hendricks GLYCOHEMOGLOBIN A1Con 2021 ADA RECOMMENDATION SEE BELOW Normal [facility] Comment on above: Result Comment: ADA RECOMMENDED LIMIT 4.0 - 6.0 ADA THERAPEUTIC TARGET < 7.0 ACTION SUGGESTED > 7.0 Performed By: #### H CVPCRR #### [facility] [address] [place] [address] Dr. Cyril Hendricks Glucose [Mass/Vol] 80 mg/dL Normal [facility] Comment on above: Performed By: #### H CVPCRR #### [facility] [address] [place], [place] [address] Dr. Cyril Hendricks HbA1c (Bld) [Mass fraction] 4.4 % Critically low 4.5-6.2 [facility] Comment on above: Performed By: #### H CVPCRR #### [facility] [address] [place], [place] [address] Dr. Cyril Hendricks TYPE AND SCREENon 10-02-2021 TYPE AND SCREEN Negative Normal [facility] Comment on above: Performed By: #### H CVPCRR #### [facility] [address] [place], [place] [address] Dr. Cyril Hendricks US PREG PLACENTAon 2 [...] SOFIA KABA Date: 2021-10-02 10:47 Normal [facility] US PREG ANATOMY SINGLEon US PREG [...] (44% by ultrasound, 29% by expected) FL/AC: [id number] FL/BPD: 0.219894 HC/AC: 1.344067 GESTATIONAL AGE: Age by EDC: 21 weeks, 3 days NOY by EDC: 01/12/2022 Age by current US: 21 weeks, 1 day NOY by current US: 01/14/2022 IMPRESSION: 1. Single live intrauterine with growth detailed above. 2. Posterior, low-lying placenta. Electronically authenticated by: MARS FRANKEL Date: 2021-09-04 16:30 Normal [facility] Vital Signs Date Time Vital Sign Value Performing Clinician Facility 02-03-2024 09:23-0400 Body temperature 97.88 [degF] Siva Schulte [facility] 02-03-2024 09:23-0400 Diastolic blood pressure 70 mm[Hg] Siva Schulte [facility] 02-03-2024 09:23-0400 Heart rate 85 /min Siva Schulte [facility] 02-03-2024 09:23-0400 Respiratory rate 18 /min Siva Schulte [facility] 02-03-2024 09:23-0400 SaO2% (BldA) [Mass fraction] 99 % Siva Schulte [facility] 02-03-2024 09:23-0400 Systolic blood pressure 106 mm[Hg] Siva Schulte [facility] 09-23-2023 09:16-0400 Body temperature 98.42 [degF] Wil Chandra [facility] 09-23-2023 09:16-0400 Diastolic blood pressure 68 mm[Hg] Wil Chandra [facility] 09-23-2023 09:16-0400 Heart rate 82 /min Wil Chandra [facility] 09-23-2023 09:16-0400 Respiratory rate 18 /min Wil Chandra [facility] 09-23-2023 09:16-0400 SaO2% (BldA) [Mass fraction] 97 % Wil Chandra [facility] 09-23-2023 09:16-0400 Systolic blood pressure 98 mm[Hg] Wil Chandra [facility] 08-27-2023 12:24-0400 Diastolic blood pressure 61 mm[Hg] [facility] 08-27-2023 12:24-0400 Heart rate 77 /min [facility] 08-27-2023 12:24-0400 Mean blood pressure 72 mm[Hg] [facility] 08-27-2023 12:24-0400 Respiratory rate 16 /min [facility] 08-27-2023 12:24-0400 SaO2% (BldA) [Mass fraction] 97 % [facility] 08-27-2023 12:24-0400 Systolic blood pressure 93 mm[Hg] [facility] 08-27-2023 11:30-0400 Diastolic blood pressure 69 mm[Hg] [facility] 08-27-2023 11:30-0400 Heart rate 74 /min [facility] 08-27-2023 11:30-0400 Mean blood pressure 82 mm[Hg] [facility] 08-27-2023 11:30-0400 Respiratory rate 16 /min [facility] 08-27-2023 11:30-0400 SaO2% (BldA) [Mass fraction] 99 % [facility] 08-27-2023 11:30-0400 Systolic blood pressure 107 mm[Hg] [facility] 08-27-2023 10:30-0400 Diastolic blood pressure 62 mm[Hg] [facility] 08-27-2023 10:30-0400 Heart rate 91 /min [facility] 08-27-2023 10:30-0400 Mean blood pressure 77 mm[Hg] [facility] 08-27-2023 10:30-0400 Respiratory rate 18 /min [facility] 08-27-2023 10:30-0400 SaO2% (BldA) [Mass fraction] 100 % [facility] 08-27-2023 10:30-0400 Systolic blood pressure 107 mm[Hg] [facility] 08-27-2023 09:41-0400 Body temperature 98.6 [degF] [facility] 08-27-2023 09:41-0400 Heart rate 80 /min [facility] 01-04-2023 00:03-0400 Body temperature 98.78 [degF] Siva Schulte [facility] 01-04-2023 00:03-0400 Diastolic blood pressure 54 mm[Hg] Siva Schulte [facility] 01-04-2023 00:03-0400 Heart rate 97 /min Siva Schulte [facility] 01-04-2023 00:03-0400 Mean blood pressure 70 mm[Hg] Siva Schulte [facility] 01-04-2023 00:03-0400 Respiratory rate 18 /min Siva Schulte [facility] 01-04-2023 00:03-0400 SaO2% (BldA) [Mass fraction] 94 % Siva Schulte [facility] 01-04-2023 00:03-0400 Systolic blood pressure 102 mm[Hg] Siva Schulte [facility] 01-03-2023 23:00-0400 Body temperature 100.04 [degF] Siva Eris [facility] 01-03-2023 23:00-0400 Diastolic blood pressure 62 mm[Hg] Siva Eris [facility] 01-03-2023 23:00-0400 Heart rate 100 /min Siva Eris [facility] 01-03-2023 23:00-0400 Mean blood pressure 75 mm[Hg] Siva Eris [facility] 01-03-2023 23:00-0400 Systolic blood pressure 100 mm[Hg] Siva Schulte [facility] 01-03-2023 22:42-0400 Body temperature 100.76 [degF] Siva Schulte [facility] 01-03-2023 22:42-0400 Diastolic blood pressure 59 mm[Hg] Siva Eris [facility] 01-03-2023 22:42-0400 Heart rate 105 /min Siva Schulte [facility] 01-03-2023 22:42-0400 Respiratory rate 20 /min Siva Schulte [facility] 01-03-2023 22:42-0400 SaO2% (BldA) [Mass fraction] 99 % Siva Schulte [facility] 01-03-2023 22:42-0400 Systolic blood pressure 96 mm[Hg] Siva Schulte [facility] 10-02-2022 21:29-0400 Diastolic blood pressure 72 mm[Hg] [facility] 10-02-2022 21:29-0400 Heart rate 94 /min PHYSICIAN NO [facility] 10-02-2022 21:29-0400 Respiratory rate 18 /min PHYSICIAN NO [facility] 10-02-2022 21:29-0400 SaO2% (BldA) [Mass fraction] 98 % PHYSICIAN NO [facility] 10-02-2022 21:29-0400 Systolic blood pressure 141 mm[Hg] PHYSICIAN NO [facility] 10-02-2022 17:03-0400 Body height 170.18 cm PHYSICIAN NO [facility] 10-02-2022 17:03-0400 Body temperature 98.3 [degF] PHYSICIAN NO [facility] 10-02-2022 17:03-0400 Body weight 76.4 kg PHYSICIAN NO [facility] 09-25-2022 13:25-0400 Body height 170.18 cm Viet Yuri Other [employer] Other 09-25-2022 13:25-0400 Body mass index (BMI) [Ratio] 26.62 kg/m2 Viet Welch Other [facility] Other 09-25-2022 13:25-0400 Body temperature 98.2 [degF] Viet Welch Other [facility] Other 09-25-2022 13:25-0400 Body weight 77.11 kg Viet Welch Other [facility] Other 09-25-2022 13:25-0400 Diastolic blood pressure 68 mm[Hg] Viet Welch Other [facility] Other 09-25-2022 13:25-0400 Respiratory rate 18 /min Viet Welch Other [facility] Other 09-25-2022 13:25-0400 SaO2% (BldA) [Mass fraction] 98 % Viet Welch Other [facility] [email or web address] Other 09-25-2022 13:25-0400 Systolic blood pressure 107 mm[Hg] Viet Welch Other [facility] [email or web address] Other 09-06-2022 13:54-0400 Diastolic blood pressure 72 mm[Hg] Wil Corazon [facility] 09-06-2022 13:54-0400 Heart rate 60 /min Wil Corazon [facility] 09-06-2022 13:54-0400 Respiratory rate 16 /min Wil Corazon [facility] 09-06-2022 13:54-0400 SaO2% (BldA) [Mass fraction] 100 % Wil Corazon [facility] 09-06-2022 13:54-0400 Systolic blood pressure 103 mm[Hg] Wil Corazon [facility] 09-06-2022 11:41-0400 Diastolic blood pressure 65 mm[Hg] Wil Corazon [facility] 09-06-2022 11:41-0400 Heart rate 58 /min Wil Corazon [facility] 09-06-2022 11:41-0400 Mean blood pressure 77 mm[Hg] Wil Corazon [facility] 09-06-2022 11:41-0400 Respiratory rate 16 /min Wil Corazon [facility] 09-06-2022 11:41-0400 SaO2% (BldA) [Mass fraction] 100 % Wil Corazon [facility] 09-06-2022 11:41-0400 Systolic blood pressure 102 mm[Hg] Wil Corazon [facility] 09-06-2022 10:42-0400 Body temperature 98.24 [degF] Wil Chandra [facility] 09-06-2022 10:42-0400 bodymassindex 1.17 Wil Chandra [facility] Comment on above: Result Comment: ^~:!ZScore [facility] 09-06-2022 10:42-0400 Diastolic blood pressure 71 mm[Hg] Wil Chandra [facility] 09-06-2022 10:42-0400 Heart rate 73 /min Wil Chandra [facility] 09-06-2022 10:42-0400 Height/Length Percentile 84.89 Wil Chandra [facility] Comment on above: Result Comment: ^~:!Percentile [facility] 09-06-2022 10:42-0400 Height/Length Z-Score 1.03 Wil Chandra [facility] Comment on above: Result Comment: ^~:!ZScore [facility] 09-06-2022 10:42-0400 Respiratory rate 16 /min Wil Chandra [facility] 09-06-2022 10:42-0400 SaO2% (BldA) [Mass fraction] 98 % Wil Chandra [facility] 09-06-2022 10:42-0400 Systolic blood pressure 111 mm[Hg] Wil Chandra [facility] 09-06-2022 10:42-0400 weight 1.47 Wil Jollye [facility] Comment on above: Result Comment: ^~:![facility]Score [facility] 09-06-2022 10:42-0400 Weight Percentile 92.90 % Wil Chandra [facility] Comment on above: Result Comment: ^~:!Percentile Source -[facility] 08-14-2022 21:30-0500 Diastolic blood pressure 79 mm[Hg] Bob Llanos [facility] 08-14-2022 21:30-0500 Heart rate 87 /min Bob Llanos [facility] 08-14-2022 21:30-0500 Mean blood pressure 93 mm[Hg] Bob Llanos [facility] 08-14-2022 21:30-0500 Nursing Progress Note Reason Other: pt to [place] via stretcher at this time. Bob Llanos [facility] 08-14-2022 21:30-0500 Respiratory rate 16 /min Bob Llanos [facility] 08-14-2022 21:30-0500 SaO2% (BldA) [Mass fraction] 100 % Bob Llanos [facility] 08-14-2022 21:30-0500 Systolic blood pressure 120 mm[Hg] Bob Llanos [facility] 08-14-2022 19:20-0500 Body temperature 98.96 [degF] Bob Llanos [facility] 08-14-2022 19:20-0500 bodymassindex 1.17 Bob Llanos [facility] Comment on above: Result Comment: ^~:!ZScore Source -[facility] 08-14-2022 19:20-0500 Diastolic blood pressure 61 mm[Hg] Bob Llanos [facility] 08-14-2022 19:20-0500 Heart rate 98 /min Bob Llanos [facility] 08-14-2022 19:20-0500 Height/Length Percentile 84.91 Bob Llanos [facility] Comment on above: Result Comment: ^~:!Percentile Source -[facility] 08-14-2022 19:20-0500 Height/Length Z-Score 1.03 Bob Llanos [facility] Comment on above: Result Comment: ^~:!ZScore [facility] 08-14-2022 19:20-0500 Respiratory rate 16 /min Bob Llanos [facility] 08-14-2022 19:20-0500 SaO2% (BldA) [Mass fraction] 99 % Bob Llanos [facility] 08-14-2022 19:20-0500 Systolic blood pressure 114 mm[Hg] Bob Llanos [facility] 08-14-2022 19:20-0500 weight 1.47 Bob Llanos [facility] Comment on above: Result Comment: ^~:!ZScore [facility] 08-14-2022 19:20-0500 Weight Percentile 92.94 % Bob Llanos [facility] Comment on above: Result Comment: ^~:!Percentile Source - [facility] 06-24-2022 13:30-0500 Body height 170.18 cm Viet Welch Other [facility] Other 06-24-2022 13:30-0500 Body mass index (BMI) [Ratio] 26.62 kg/m2 Viet Welch Other [facility] Other 06-24-2022 13:30-0500 Body temperature 97.8 [degF] Viet Welch Other [facility] Other 06-24-2022 13:30-0500 Body weight 77.11 kg Viet Welch Other [facility] Other 06-24-2022 13:30-0500 Diastolic blood pressure 63 mm[Hg] Viet Welch Other [facility] Other 06-24-2022 13:30-0500 Respiratory rate 18 /min Viet Welch Other [facility] Other 06-24-2022 13:30-0500 SaO2% (BldA) [Mass fraction] 98 % Viet Welch Other [facility] Other 06-24-2022 13:30-0500 Systolic blood pressure 97 mm[Hg] Viet Welch Other [facility] Other 11-13-2021 14:05-0400 Body height 170.18 cm Michael Oneil Other [facility] Other 11-13-2021 14:05-0400 Body mass index (BMI) [Ratio] 26.62 kg/m2 Michael Oneil Other [facility] Other 11-13-2021 14:05-0400 Body temperature 98.4 [degF] Michael Oneil Other [facility] Other 11-13-2021 14:05-0400 Body weight 77.11 kg Michael Oneil Other [facility] Other 11-13-2021 14:05-0400 Respiratory rate 18 /min Michael Oniel Other [facility] Other 11-13-2021 14:05-0400 SaO2% (BldA) [Mass fraction] 98 % Michael Oneil Other [facility] Other 11-06-2021 15:45-0400 Body height Kendra Eduar Other [facility] Other 11-06-2021 15:45-0400 Body mass index (BMI) [Ratio] 26.62 kg/m2 Kendra Witt Other [facility] Other 11-06-2021 15:45-0400 Body weight 77.11 kg Kednra Witt Other [facility] Other 11-06-2021 15:45-0400 Respiratory rate 20 /min Kendra Witt Other [facility] Other 11-06-2021 15:45-0400 SaO2% (BldA) [Mass fraction] 98 % Kendra Witt Other [facility] Other Encounters Encounter Date Encounter Type Care Provider Facility Start: 02-16-2024 End: 02-16-2024 ambulatory GONSALO CORRAL Not Available Start: 02-03-2024 End: 02-03-2024 Emergency department patient visit Siva Schulte [facility] Start: 01-26-2024 End: 01-26-2024 ambulatory JUVENAL MIRI Not Available Start: 12-29-2023 End: 12-29-2023 ambulatory GONSALO ELLIS Not Available Start: 12-22-2023 End: 12-22-2023 ambulatory JUVENAL R [facility] Start: 12-01-2023 End: 12-01-2023 ambulatory JUVENAL MIRI Not Available Start: 11-10-2023 End: 11-10-2023 ambulatory JUVENAL R [facility] Start: 10-27-2023 End: 10-27-2023 ambulatory GONSALO ELLIS Not Available Start: 09-29-2023 End: 09-29-2023 ambulatory JUVENAL MIRI Not Available Start: 09-23-2023 End: 09-23-2023 Emergency department patient visit Wil Jollye [facility] Start: 09-04-2023 End: 09-04-2023 ambulatory JUVENAL MIRI Not Available Start: 08-27-2023 End: 08-27-2023 Emergency department patient visit Emily Harper [facility] Start: 08-18-2023 End: 08-18-2023 ambulatory SELAM HUNTER [facility] Start: 01-03-2023 End: 01-04-2023 Emergency department patient visit Siva Schulte [facility] Start: 12-12-2022 End: 12-12-2022 ambulatory Kenneth Lina Other [facility] Other Start: 12-12-2022 Telephone encounter Kenneth Lina [facility] Start: 10-02-2022 End: 10-02-2022 Emergency department patient visit Jose Silverman Facility:[facility] Start: 10-02-2022 End: 10-02-2022 Emergency department patient visit PHYSICIAN SJ LERN[facility] Work Phone: Start: 09-25-2022 End: 09-25-2022 ambulatory Viet Brook Highland Other [facility] Other Start: 09-25-2022 Office outpatient visit 15 minutes Viet Welch [facility] Start: 09-06-2022 End: 09-06-2022 Emergency department patient visit Wil Jollye [facility] Start: 08-14-2022 End: 08-14-2022 Emergency department patient visit Bob Llanos [facility] Start: 07-11-2022 End: 07-11-2022 ambulatory ROSEANN CORRAL Facility:[facility] Start: 06-24-2022 End: 06-24-2022 ambulatory Viet Welch Other [facility] Other Start: 06-24-2022 Office outpatient visit 15 minutes Viet Welch [facility] Start: 01-11-2022 End: 01-11-2022 ambulatory NONE LISTED REQUEST Facility:[facility] Start: 01-07-2022 End: 01-09-2022 Evaluation and management of inpatient DR RENATA GEORGES Facility:[facility] Start: 12-29-2021 End: 12-29-[address] JUVENAL THORPE Facility:[facility] Start: 12-19-2021 End: 12-19-[address] JUVENAL THORPE Facility:[facility] Start: 12-12-2021 End: 12-13-2021 ambulatory JUAQUIN SEWELL [facility] Start: 12-12-2021 End: 12-12-2021 Subsequent hospital visit by physician [facility] Start: 11-27-2021 End: 11-27-[address] SOFIA KABA Facility:[facility] Start: 11-13-2021 End: 11-13-2021 ambulatory Michael Oneil Other [facility] Other Start: 11-13-2021 Office outpatient visit 15 minutes Michael Oneil [facility] Start: 11-06-2021 End: 11-06-2021 ambulatory Kendra Witt Other [facility] Other Start: 11-06-2021 Office outpatient visit 25 minutes Kendra Witt [facility] Start: 10-23-2021 End: 10-24-[address] [...] identified in Urine by Culture Urine Culture [facility] Start: 02-07-2022 Influenza vaccination Flu vaccine (# 1) [facility] Start: 01-09-2022 End: 01-09-2022 Patient encounter procedure 01/09/[address] [facility] Start: 01-02-2022 End: 01-02-2022 Patient encounter procedure 01/02/2022 Routine Perinatology [facility] Start: 12-26-2021 End: 12-26-2021 Patient encounter procedure 12/26/[address] [facility] Start: 12-20-2021 End: 12-20-2021 Patient encounter procedure 12/20/2021 Routine Perinatology [facility] Start: 2021 DTaP/Tdap/Td vaccine (1 - Tdap) DTaP/Tdap/Td vaccine (1 - Tdap) [facility] Start: 2020 Hepatitis C screening Hepatitis C sc haresh [facility] Start: 2018 Screening for Chlamy nazanin trachomatis Chlamydia screen [facility] Start: 2017 HIV screening HIV screen [facility] Start: 2014 [facility] [employer] [facility] Start: 2013 HPV vaccine (1 - 2-d ose series) HPV vaccine (1 - 2-dose series) [employer] [facility] [employer] [facility] [facility] Start: 09-16-2007 COVID-19 Vaccine (1) COVID-19 Vaccin e (1) [employer] [facility] [employer] [facility] [facility] Start: 09-16-2003 Varicella vaccine (1 of 2 - 2-dose childhood series) Varicella vaccine (1 of 2 - 2-dose childhood series) [facility] [employer] Patient Education Depression, Adult ED [facility] Work Phone: Patient referral [facility] Work Phone: End: 12-12-2021 Sjogrens syndrome-A extractable nuclear antibody [email or web address] Work Phone: Comment on above: Once for 1 Occurrenc es starting 12/12/2021 until 12/12/2021 End: 12-12-2021 Sjogrens syndrome-B extractable nuclear antibody [employer] [facility] [facility] Work Phone: Comment on above: Once for 1 Occurrenc es starting 12/12/2021 until 12/12/2021 Immunizations Immunization Date Immunization Notes Care Provider Simona galarza NEGATED: Highlighted row has not occurred!11-05-2019 influenza, injectable, quadrivalent, contains preservative Kendra Witt Other [facility] Other NEGATED: Highlighted row has not occurred!04-10-2019 influenza virus vaccine, unspecified formulation Bob Viet [facility] Payers Date Payer Category Payer Self-pay [id number] 2002 Unknown [id number] 2.16. [id number] 2002 Unknown [id number] 2.16.84 0.1.697845.3.579.2.593 2002 Unknown [id number] 2.16.84 0.1.030092.3.579.2.593 2002 Unknown [id number] 2.16.84 0.1.657924.3.579.2.593 2002 Unknown [id number] 2.16.84 0.1.797589.3.579.2.593 2002 Unknown [id number] 2.16.84 0.1.440369.3.579.2.593 2002 Unknown [id number] 2.16.84 0.1.055837.3.579.2.593 2002 Unknown [id number] 2.16.84 0.1.055782.3.579.2.593 2002 Unknown [id number] 2.16.84 0.1.705750.3.579.2.593 2002 Unknown [id number] 2.16.84 0.1.142228.3.579.2.593 2002 Unknown [id number] 2.16.84 0.1.954948.3.579.2.593 2002 Unknown [id number] 2.16.84 0.1.500586.3.579.2.593 2002 Unknown [id number] 2.16.8 40.1.631625.3.579.2.1286 2002 Unknown [id number] 2.16.8 40.1.776066.3.579.2.1286 2002 Unknown [id number] 2.16.8 40.1.512246.3.579.2.1286 2002 Unknown [id number] 2.16.8 40.1.297419.3.579.2.727 2002 Unknown [id number] 2.16.8 40.1.260621.3.579.2.727 2002 Unknown [id number] 2.16.8 40.1.378913.3.579.2.727 2002 Unknown [id number] 2.16.8 40.1.102069.3.579.2.727 2002 Unknown [id number] 2.16.8 40.1.839561.3.579.2.727 2002 Unknown [id number] 2.16.84 0.1.881018.3.579.2.1259 2002 Unknown [id number] 2.16.84 0.1.138822.3.579.2.9 2002 Unknown [id number] 2.16.84 0.1.659500.3.579.2.9 2002 Unknown [id number] 2.16.84 0.1.902783.3.579.2.9 2002 Unknown [id number] 2.16.84 0.1.876283.3.579.2.9 2002 Unknown [id number] 2.16.84 0.1.573357.3.579.2.9 2002 Unknown [id number] 2.16.84 0.1.124593.3.579.2.9 1959 Unknown [id number] 2.1 6.840.1.595201.19 1959 Unknown [id number] Unknown [id number] 2.16.8 40.1.307109.3.579.2.531 Social History Date Type Detail Facility Sex Assigned At [facility] Start: 11-28-2021 Tobacco smoking stat [facility] Never smoked tobacco [facility] Phone: Start: 11-28-2021 Tobacco use and exposure Smokeless tobacco non-user [facility] Phone: Start: 12-12-2021 Alcohol intake Ex-drinker (finding) [facility] Phone: Start: 12-12-2021 Tobacco Comment no longer vapes [facility] Phone: Start: 04-21-2021 [place] [employer] Work Phone: Start: 2002 Sex Assigned At Not on file B ON [employer] Phone: Tobacco Current vaping o r e-cigarette use Smokeless Tobacco Use:. Vaping [facility] Tobacco smoking status No Smokin g Status Entered [facility] Start: 10-02-2022 Tobacco smoking stat us NHIS Smoker (finding) [facility] Start: 2002 Sex Assigned At Female F [facility] Functional Status Date Assessment Result Facility 02-03-2024 Functional Status N/A [facility] 09-23-2023 Functional Status N/A [facility] 08-27-2023 Functional Status N/A [facility] 01-03-2023 Functional Status N/A [facility] 09-06-2022 Functional Status N/A [facility] 08-14-2022 Functional Status N/A [facility] Clinical Notes 11-06-2021 to 02-03-2024 Note Date & Type Note Facility 02-03-2024 Evaluation + Plan note Extrac ruby from: Title:ED Note Author:Duc Swanson PA-C te:02/03/24 Sore throat (J02.9: Acute ph aryngitis, unspecified) Viral URI (J06.9: Acute upper respiratory infection, unspecified) Orders: Group A Strep by PCR Rapid Strep w/rfx Diagnostic Tests Pending * Group A Strep by PCR 02/03/24 [facility] 08-27-2024 Hospital Discharge instructions Patient Education [...] medicines to help relieve symptoms, such as: Aqgy-exo-jdlnuun cold medicines. Cough suppressants. Coughing is a [...] and other clear broths. General instructions Take zqfo-taa-fdoycem and prescription medicines only as told by [...] and water are not available, use hand bilingual loan processor. Avoid touching your mouth, face, eyes, or [...] provider. Document Revised: 12/26/2021 Document Reviewed: 12/26/2021 [employer] Patient Education 2022 [employer]. Follow Up Care 02/03/2024 09:23:13 With:Juvenal THORPE Address: [address] , [place] [address]- Business (1) When:02/06/2024 11:12:27 With:SELAM HUNTER Address: [facility] [place] [address] Business (1) When:02/06/2024 11:12:21 [facility] 08-27-2024 NoteED Patient Education Note Infectious [...] to help relieve symptoms, such as: ? Gcka-zwc-ojflbex cold medicines. ? Cough suppressants. Coughing is [...] other clear broths. General instructions ? Take ispa-wov-jzfxuyn and prescription medicines only as told by [...] soap and water are not available,use hand bilingual loan processor. ? Avoid touching your mouth, face, eyes, [...] Mood. These symptoms m (more content not included)...[facility] 09-23-2023 Hospital Discharge instructions Patient Education 09/23/2023 [...] provider. Document Revised: 02/19/2021 Document Reviewed: 02/19/2021 [employer] Patient Education 2022 [employer]. Follow Up Care 09/23/2023 09:11:45 With:Juvenal THORPE Address: [address] [place] [address] Business (1) When:09/26/2023 11:44:07 [facility]03-20-2024 Hospital Discharge instructions Patient Education 08/27/2023 [...] provider. Document Revised: 01/09/2022 Document Reviewed: 01/09/2022 [employer] Patient Education 2022 [employer]. 08/27/2023 12:34:16 Urinary Tract Infection, Adult, Gloy-xh-Ixkt Urinary Tract Infection, Adult A urinary tract [...] Follow these instructions at home: Medicines Take xxqe-chg-sliulec and prescription medicines only as told by [...] provider. Document Revised: 01/05/2021 Document Reviewed: 01/05/2021 [employer] Patient Education 2022 [employer]. 08/27/2023 12:34:16 Subchorionic Hematoma Subchorionic Hematoma A [...] provider. Document Revised: 02/19/2021 Document Reviewed: 02/19/2021 [employer] Patient Education 2022 [employer]. Follow Up Care 08/27/2023 09:39:16 With:Juvenal THORPE Address: [address] , [place] [address] Business (1) When:08/30/2023 12:05:10 With:SELAM HUNTER Address: [facility] [place] [address] Business (1) When:Within 3 Day(s) [facility]03-20-2024 Evaluation + Plan noteExtracted from: Title:ED Note Author:Hudson Riley PA-C te:08/27/23 [...] day(s), # 28 cap(s), Refills(s) 0, Pharmacy: [id number], 170, cm, 08/27/23 9:49:00 EDT, Height/Length Dosing, 78.7, kg, 08/27/23 9:49:00 EDT, Weight Dosing ABO/Rh Basic Metabolic Panel Beta hCG Quantitative CBC w/ Auto Diff eGFR Extra Blue Tube Extra SST Tube UA with Cult Rflx Urine Culture US 1st Trimester US Transvaginal Diagnostic Tests Pending * Urine Culture 08/27/23 [facility]07-29-2023 Hospital Discharge instructions Patient Education 01/04/2023 00:13:01 Pharyngitis, Xhqa-vm-Dxst Pharyngitis Pharyngitis is a sore throat (pharynx). [...] Follow these instructions at home: Medicines Take wmas-wkd-lvjeprj and prescription medicines only as told by [...] and water are not available, use hand bilingual loan processor. Do not touch your eyes, nose, or [...] provider. Document Revised: 08/22/2021 Document Reviewed: 08/22/2021 [employer] Patient Education 2022 [employer] Follow Up Care 01/03/2023 22:32:55 With:Thonyyrn Carl Address: [address] [place] [address] [address] [address] [facility] (1) When:01/06/2023 Comments:Follow-up with your primary care provider in 3 to 5 days. If symptoms worsen, do not improve, or new symptoms arise please report back to emergency department for further evaluation. [facility]07-28-2023 Evaluation + Plan noteExtracted from: Title:ED [...] q12hr, # 20 cap(s), Refills(s) 0, [facility], 170, cm, 01/03/23 22:44:00 EDT, Height/Length Dosing, 75.3, kg, 01/03/23 22:44:00 EDT, Weight Dosing ondansetron, 4 mg = 1 tab(s), Oral, q8hr, PRN Nausea/Vomiting, # 12 tab(s), Refills(s) 0, [facility], cm, 01/03/23 22:44:00 EDT, Height/Length Dosing, 75.3, kg, 01/03/23 22:44:00 EDT, Weight Dosing ondansetron, 12 mg = 3 tab(s), Tab-Dis, Oral, Once, Stop date 01/03/23 23:45:00 EDT, STAT, Start date 01/03/23 23:45:00 EDT, 01/03/23 23:45:00 EDT Automated Diff Basic Metabolic Panel Beta hCG Quantitative CBC w/ Auto Diff eGFR Hepatic Function Panel Lipase Level [facility]04-19-2023 Evaluation note* Encounter Date Diagnosis Assessment [...] of symptoms occur by end of treatment. [facility] 03-31-2023 Hospital Discharge instructions Patient Education [...] Follow these instructions at home: Medicines Take utgg-peq-tboktzj and prescription medicines only as told by [...] important. Where to find more information [employer]: [email or web address] [place] [...] 11/19/2001 Document Revised: 09/17/2019 Document Reviewed: 07/01/2017 [employer] Patient Education 2020 [employer] Follow Up Care 09/06/2022 10:42:16 With:Juvenal THORPE Address: [address] [place] [address]- Business (1) When:09/09/2022 13:46:05 [facility]03[facility]23 Hospital Discharge instructions Patient Education 08/14/2022 22:12:46 Abdominal Pain During , Xqfo-ai-Ljla Abdominal Pain During Belly (abdominal) pain is [...] keep your pee (urine) pale yellow. Take wfji-kca-vdsenye and prescription medicines only as told by [...] Document Reviewed: 08/28/2017 [employer] Patient Education 2020 [employer]. 08/14/2022 22:12:46 Abdominal Pain, Adult, Kohy-ll-Hzgy Abdominal Pain, Adult Many things can cause belly (abdominal) pain. Most times, belly pain is not dangerous. Many cases of belly pain can be watched and treated at home. Sometimes, though, belly pain is serious. Your doctor will try to find the cause of your belly pain. Follow these instructions at home: Medicines Take uvsf-jpb-iqisose and prescription medicines only as told by [...] your belly pain for any changes. Take wvaa-sxa-tofuxuo and prescription medicines only as told by [...] 11/11/2008 Document Revised: 10/04/2019 Document Reviewed: 10/04/2019 [employer] Patient Education 2020 [employer]. Follow Up Care 08/14/2022 18:41:38 With:Juvenal THORPE Address: [address] , [place] [address]- Business (1) When:08/17/2022 Comments:Follow-up with Dr. Thorpe for further evaluation of your . With:Juventino Carbajal Address: [address] [place] [id number]- When:08/17/2022 Comments:Follow-up with your primary care provider in 3 to 5 days. If symptoms worsen, do not improve, or new symptoms arise please report back to emergency department for further evaluation. [facility]01-16-2023 Evaluation note* Encounter Date Diagnosis Assessment [...] return precautions. Jun, Cough (ICD-10 - R05.9) [facility] Other 06-07-2022 Evaluation note* Encounter Date Diagnosis [...] Pt understood and agreed to tx plan. [facility] Other [id number] Evaluation note* Encounter Date Diagnosis Assessment Notes [...] condition October, Sore throat (ICD-10 - J02.9) [place] [facility] Other Evaluation + Plan note No data available for this section [facility] assessment information available [facility] Work Phone: Evaluation noteNo InformationNort [facility] Other History general Narrative - Reported* Type Description Date Medical History fx lt elbow at age 7 Surgical History surgical repair of left elbow f racture at age 7 Hospitalization History see surgical hx [facility] Other Progress note No data available for this section [facility] Summary Purpose Family History No Family History Records FoundNo Family History Records FoundNo Family History Records Found No data available for this section No data available for this section No Family History Records Found No data available [...] section and content) DATE CREATED AUTHOR 01/05/2022 [facility] DATE CREATED AUTHOR AUTHOR'S ORGANIZ ATION 07/15/2022 [facility] [place] DATE CREATED AUTHOR AUTHOR'S ORGANIZ ATION 10/10/2022 [facility] DATE CREATED AUTHOR AUTHOR'S ORGANIZ ATION 12/26/2023 [facility] DATE CREATED AUTHOR AUTHOR'S ORGANIZ ATION [facility] DATE CREATED AUTHOR AUTHOR'S ORGANIZ ATION 02/06/2024 [facility] DATE CREATED AUTHOR AUTHOR'S ORGANIZ ATION 02/17/2024 [facility] [employer] Care Teams (unrecognized sec tion and content) Personnel Name: SELAM HUNTER CNP Address: Address: [address] [place] [address] Team Status: Active Member Role Status Dates [...] BE BASED ON THE PRIMARY CLINICAL RECORDS. [facility]. provides no warranty or guarantee of the accuracy or completeness of information in this document.
[2024-02-19 16:11] VITALS: BP 109/59; PULSE 80
== END 2024-02-19 16:39 | disposition home or self-care (01) ==
LOC: FBCO 07:07 → FBC 16:02
PROVIDERS: Visit Provider Obstetrics & Gynecology
DX: O43.899 Other placental disorders, unspecified trimester (principal)
CPT/HCPCS: 59025

== ENCOUNTER 2024-02-23 07:01 | Outpatient (OUT) | payer OTHER, SELFPAY ==
--- NOTE | 2024-02-23 | US_ITS ---
[address] [address] Patient Name: KAILYN ACKERMAN MRN: [id number] date: 2000 Sex: F Assigned Patient Location: [facility] Current Patient Location: Accession/Order Number: [id number] Exam Date: 02/23/2024 13:05 Report Date: 02/24/2024 07:44 At the request of: VAL ANG Procedure: US OB umbilical artery EXAMINATION: US OB umbilical artery HISTORY: Antepartum placenta circumvallate O43.119 COMPARISON: No relevant comparison available. TECHNIQUE: Duplex Doppler evaluation of the umbilical arteries. FINDINGS: position: Cephalic presentation, longitudinal lie Amniotic fluid: 12.4 cm, largest fluid pocket 3.5 cm Heart rate: 144 bpm Proximal umbilical artery: 89/23 cm/s. Resistive index 0.74. Ratio 3.9 Mid umbilical artery: 90/22 cm/s. Resistive index 0.75. Ratio 4.0 Distal umbilical artery: 64/22 cm/s. Resistive index 0.65. Ratio 2.9 Clinical age: 32 weeks 4 days Clinical NOY: 04/15/2024 Forward flow identified throughout diastole US/US OB umbilical artery IMPRESSION: Class 0 with normal velocities Elevated systolic to diastolic ratios, above the 90th percentile Umbilical Artery: Class 0 = Normal umbilical artery blood velocity Class I = increased RI or PI, but still forward flow in diastole Class II = Absent end diastolic flow (AEDF) Class III = Reversal of end diastolic flow (REDF) Resistive Index (RI)<1 Systolic/Diastolic ratio (S:D): An S:D ratio of 2-3 after 34 wks is normal Systolic/Diastolic ratio (S:D): Age 16: 3.01 for the 10th percentile, 4.25 for the 50th percentile, 6.07 for the 90th percentile Age 20: 3.16 for the 10th percentile, 4.04 for the 50th percentile, 5.24 for the 90th percentile Age 24: 2.70 for the 10th percentile, 3.50 for the 50th percentile, 4.75 for the 90th percentile Age 28: 2.41 for the 10th percentile, 3.02 for the 50th percentile, 3.97 for the 90th percentile Age 30: 2.43 for the 10th percentile, 3.04 for the 50th percentile, 3.80 for the 90th percentile Age 32: 2.27 for the 10th percentile, 2.73 for the 50th percentile, 3.57 for the 90th percentile Age 34: 2.08 for the 10th percentile, 2.52 for the 50th percentile, 3.41 for the 90th percentile Age 36: 1.96 for the 10th percentile, 2.35 for the 50th percentile, 3.15 for the 90th percentile Age 38: 1.89 for the 10th percentile, 2.24 for the 50th percentile, 3.10 for the 90th percentile Age 40: 1.88 for the 10th percentile, 2.22 for the 50th percentile, 2.68 for the 90th percentile Age 41: 1.93 for the 10th percentile, 2.21 for the 50th percentile, 2.55 for the 90th percentile Age 42: 1.91 for the 10th percentile, 2.51 for the 50th percentile, 3.21 for the 90th percentile Uteroplacental Artery: Resistive Index (RI): Normal=<0.55 High Resistance=Bilateral notches (after 26 wks) and RI>0.55. Unilateral notches (after 26 wks) and RI>0.65 Systolic/Diastolic ratio (S:D) = 2-3 is normal after 32 weeks. Electronically authenticated by: SOFIA KABA Date: 02/24/2024 07:44
--- OUTSIDE RECORDS SUMMARY | 2024-02-23 07:06 | XMS_ITS | CCD ---
Author Organization [facility] Inform ion [facility] Care Team Providers Care Excel Specialist Name Role Phone Kendra Witt Unavailable Michael [...] Unavailable ZIEBER, DR MARS Mccarthy Consulting Unavailable SWAIN, DR SOFIA Hull Consulting Unavailable REQUEST, NONE LISTED Primary Care Unavaila ble MIRI, DR NEAL Attending Unavailable MIRI, DR NEAL Admitting Unavailable MIRI, DR NEAL Consulting Unavailable KARASIK, DR YANEZ Consulting Unavailable REQUEST, NONE LISTED Primary Care Unavaila ble MIRI, DR NEAL Attending Unavailable MIRI, DR NEAL Admitting Unavailable MIRI, DR NEAL Consulting Unavailable AGUBOSIM, ZAN Consulting Unavailable MIRI, DR NELA Procedure Practitioner Unavailab ricardo KABA, DR SOFIA Hull Consulting Unavailable EVER, NONE LISTED Primary Care Unavaila ble MIRI, DR NEAL Attending Unavailable MIRI, DR NEAL Admitting Unavailable MIRI, DR NEAL Consulting Unavailable Viet Welch Unavailable NONE, XXXX Primary Care Physician Unavailab le NO FAMILY, PHYSICIAN Primary Care Provider Unava MD Jose Moody Emergency Provider [phone] Jose Silverman Attending Unavailable Jose Silverman Admitting [...] Medication Allergies] Propensity to adverse reactions (disorder) [facility] Repository Medications Current Medications Medication [...] day(s), # 28 cap(s), Refills(s) 0, Pharmacy: [facility], 170, cm, 08/27/23 9:49:00 EDT, Height/Length Dosing, 78.7, kg, 08/27/23 9:49:00 EDT, Weight Dosing Start Date: 08/27/23 Stop Date: 09/03/23 Status: Ordered Start: 01-03-2023 take 1 capsule by [facility] every twelve hours Keflex 500 mg Cap 500 mg = 1 cap(s), Oral, q12hr, # 20 cap(s), Refills(s) 0, Pharmacy: [facility], 170, cm, 01/03/23 22:44:00 EDT, Height/Length Dosing, 75.3, kg, 01/03/23 22:44:00 EDT, Weight Dosing Start Date: 01/03/23 Status: Ordered Citalopram (2 sources) Serotonin Reuptake Inhibitor Citalopram Hydrobromide Active dexamethasone 1 mg/ml / neomycin 3.5 mg/ml / polymyxin b 96116 unt/ml ophthalmic suspension (2 sources) Aminoglycoside Antibacterial, Polymyxin-class Antibacterial, Corticosteroid Start: 09-26-19 take 1 drop(s) into the eye(s) four times daily Maxitrol 3.5-05320-8.1 1 drop into affected eye Ophthalmic Four [...] 3 hrs for 2 days Jun, Active Institute (No Known Home Meds) (1 source) Start: 06-26-2021 Institute (No Known Home Meds) Active June 26, [...] Nausea/Vomiting, # 12 tab(s), Refills(s) 0, Pharmacy: [facility], 170, cm, 01/03/23 22:44:00 EDT, Height/Length Dosing, 75.3, kg, 01/03/23 22:44:00 EDT, Weight Dosing Start Date: 01/03/23 Status: Ordered Start: 06-09-2019 take 1 tablet by faby th three times daily Zofran ODT 4 mg Tab-Dis 4 mg = 1 tab(s), Oral, TID, # 15 tab(s), Refills(s) 0, Pharmacy: [facility] Start Date: 06/09/19 Status: [...] take 450 mg by mouth twice daily [place] Carbonate Discontinued 450 MG PO Twice daily [...] Grp A Strp Intrl Ctrl Pass Normal [facility] Comment on above: Order Comment: Order Added on by Discern Rule. Performed By: #### 1 [id number] #### [facility] [address] [place] [address] S. pyogenes DNA ALFREDO+probe Ql (Throat) Negative Normal [facility] Comment on above: Order Comment: Order Added on by Discern Rule. Result Comment: Test ing performed using DNA amplification. Performed By: #### 1 [id number] #### [facility] [address] [place] [address] ED Clinical Summaryon 2023 ED Clinical Summary ED Clinical Summary [address] [address] ED Clinical Summary Person Information Name: KAILYN ACKERMAN [facility] Age: 23 Years : 2000 Sex: Female Language: Grenadian PCP: SELAM HUNTER CNP Marital Status: Single Phone: [phone] MRN: Visit Id: Visit Reason: Headache; Body [...] 02/03/2024 11:17:23 02/03/2024 11:17:23 02/03/2024 11:17:23 ADDRESS: [address] [place] [phone] PHYS DOC NOTES: MEDICAL INFORMATION: Prescriptions Given: [...] Follow up: With: Address: When: Juvenal THORPE [facility], [address] [place] [address] [place] [address] Business (1) In 3 days 02/06/2024 With: Address: When: [place] [address] Business (1) In 3 days 02/06/2024 DIAGNOSIS: Sore throat; Viral URI Normal [facility] ED Note-Physicianon 08-27-20 24 ED [...] URI and will continue to follow-up with [facility] [facility]PECT[facility] for further evaluation and management. We discussed [...] days 02/06/2024 (more content not included)... Normal [facility] Comment on above: Result Comment: Elec tronically Signed By: Duc Swanson PA-C\.br\Date and Time Signed: 02/03/24 13:23 EDT\.br\Electronically Co-Signed By: Siva Schulte DO\.br\Date and Time Co-Signed: 02/03/24 14:44 EDT ED Patient Summaryon 024 ED Patient Summary ED Patient Summary [address] [address] Patient Discharge Instructions Person Information Name: KAILYN ACKERMAN Age: 23 Years Arrival Date: 02/03/2024 09:21:41 Discharge Diagnosis: Sore throat; Viral URI Primary Care Physician: SELAM HUNTER CNP Provider Information Primary Provider: Siva Schulte DO Advanced Inspector Final Assembly Electrical:Duc Swanson PA-C The exam and treatment you received in the Emergency Department were for an urgent problem and are not intended as complete care. It is important that you follow up with a doctor, nurse practitioner, or physician?s patient support assistant for ongoing care. If your [...] Follow-up Instructions: With: Address: When: Juvenal THORPE [facility], [address] [place] [address] [place] [address] Business (1) In 3 days 02/06/2024 With: Address: When: SELAM HUNTER [address] [place], [place] [address] [address] Business (1) In 3 days 02/06/2024 In the event that this physician does not participate in your insurance network, please consult with your insurance company to find a nearby participating provider. Patient Education Materials: Upper Respiratory Infection, Adult A MESSAGE TO ALL PATIENTS REGARDING OPIOIDS PRESCRIPTION OPIOIDS: WHAT YOU NEED TO KNOW Prescription opioids can be used to help relieve jyxtpcyb-bn-aixhae pain and are often prescribed following a [...] of op (more content not included)... Normal [facility] MICRO OTHER TESTSOrdered By: Nita Delgadillo on 02-03-2024 S. pyogenes Ag IA.rapid Ql (Throat) Negative (02/03/24 11:07 AM) Normal Negative [facility] Sero MICRO OTHER TESTSOrdered By: Asuncion Goncalves on 02-03-2024 Rapid COV Int NEG Ctl Pass (02/03/24 9:30 AM) Normal [facility] Sero Rapid COV Int POS Ctl Pass (02/03/24 9:30 AM) Normal [facility] Sero SARS-CoV+SARS-CoV-2 (COVID-19) Ag IA.rapid Ql (Resp) Not Detected 1 (02/03/24 9:30 AM) Normal Not Detected [facility] Sero Comment on above: Interpretive Data: [employer] Veritor System for Rapid Detection of SARS-CoV-2 [...] COV Int NEG Ctl Pass Normal [facility] Comment on above: Performed By: #### 2 [id number] #### [facility] [address] [place] [address] Rapid COV Int POS Ctl Pass Normal [facility] Comment on above: Performed By: #### 2 [id number] #### [facility] [address] [place] [address] SARS-CoV+SARS-CoV-2 (COVID-19) Ag IA.rapid Ql (Resp) Not detected Normal Not Detected [facility] Comment on above: Result Comment: The [employer] Veritor? System for Rapid Detection of SARS-CoV-2 [...] other viruses or pathogens; and, in the [facility], this test is only authorized for the duration of the declaration that circumstances exist justifying the authorization of emergency use of in vitro diagnostics for detection and/or diagnosis of the virus that causes COVID-19 under Section 564(b)(1) of the Act, 21 U.S.C. ? 360bbb-3(b)(1), unless the authorization is terminated or revoked sooner. Performed By: #### 2 [id number] #### [facility] [address] [place] [address] Rapid Strep w/rfxon 02-03-20 24 S. pyogenes Ag IA.rapid Ql (Throat) Negative Normal Negative [facility] Comment on above: Performed By: #### 2 [id number] #### [facility] [address] [place] [address] ED Note-Physicianon 09-26-19 24 ED Note-Physician Basic [...] than 90,000. Ultrasound was obtained discussed with electrophysiology technician. Intrauterine consistent with stated gestational age. Stable heart rate. Patient continues to demonstrate subchorionic hematoma. Also left-sided ovarian cyst similar to previous. Results were discussed with the patient. She is discharged home to continue pelvic rest and follow-up with [facility] INSPECT[facility]. Patient was encouraged to return to the [...] Juvenal THORPE In 3 days 09/26/[address] , [place] [address] Business (1) Additional Instructions: Patient Education Subchorionic [...] made to ensure accuracy, however, inadvertently computerized general merchandise salesperson mistakes may be present. Appropriate healthcare PPE [...] Yes., 04/10/2019 Lab Results Beta hCG Qnt: 26986 mIU/mL High (09/23/23 09:28:00) Diagnostic Results No qualifying data available. Normal [facility] Comment on above: Result Comment: Elec tronically Signed By: Mandie CHUNG, Venkat\.br\Date and Time Signed: 09/23/23 11:45 EDT\.br\Electronically Co-Signed By: Wil Chandra DO\.br\Date and Time Co-Signed: 09/26/23 07:37 EDT [facility] Quanton 09-23-2023 [place] [address] m[IU]/mL High 1-3 [facility] Comment on above: Result Comment: 'F N ON < 1 - 3' ' 0.2 - 1 WEEK = 5 TO 50' ' 1 - 2 WEEKS = 50 - 500' ' 2 - 3 WEEKS = 100 - 5000' ' 3 - 4 WEEKS = 500 - 59963' ' 4 - 5 WEEKS = 1000 - 92188' ' 5 - 6 WEEKS = 69318 - 086031' ' 6 - 8 WEEKS = 78782 - 651586' ' 8 - 12 WEEKS = 96612 - 421719' Performed By: #### 2 [id number] ####[place] [address] [place] [address] CHEMISTRYOrdered By: SYSTEM SYSTEM on 09-23-2023 [place] [address] m[IU]/mL High 1 - 3 mIU/mL [facility] Comment on above: Result Comment: 'F N ON < 1 - 3' ' 0.2 - 1 WEEK = 5 TO 50' ' 1 - 2 WEEKS = 50 - 500' ' 2 - 3 WEEKS = 100 - 5000' ' 3 - 4 WEEKS = 500 - 74972' ' 4 - 5 WEEKS = 1000 - 12719' ' 5 - 6 WEEKS = 26910 - 157202' ' 6 - 8 WEEKS = 68131 - 808451' ' 8 - 12 WEEKS = 23598 - 589025' Consent for Treatmenton 09-07 Consent for Treatment [id number]#1.00TIFF Normal [facility] Discharge Instructionson Discharge Instructions [id number] Normal [facility] ED Clinical Summaryon 2023 ED Clinical Summary [address] [address] ED Clinical Summary Person Information Name: KAILYN ACKERMAN [facility] Age: 23 Years : 2000 Sex: Female Language: Grenadian PCP: NONE, XXXX Marital Status: Single Phone: [phone] MRN: [id number] Visit Id: Visit Reason: Back [...] 09/23/2023 11:52:16 09/23/2023 11:52:16 09/23/2023 11:52:16 ADDRESS: [address] [place] [phone] PHYS DOC NOTES: MEDICAL INFORMATION: Prescriptions Given: [...] Follow up: With: Address: When: Juvenal THORPE [facility], [address] [place] [address] [place] [address] Business (1) In 3 days 09/26/2023 DIAGNOSIS: Other antepartum hemorrhage, unspecified trimester; Subchorionic bleed; Vaginal bleeding in Normal [facility] ED Patient Education Noteon 09-23-2023 [...] provider. Document Revised: 02/19/2021 Document Reviewed: 02/19/2021 [employer] Patient Education ? 2022 [email or web address]. Normal [facility] ED Patient Summaryon 024 ED Patient Summary [address] [address] Patient Discharge Instructions Person Information Name: GARCÍA ACKERMANNZIE Evan Age: 23 Years Arrival Date: 09/23/2023 09:10:07 Discharge Diagnosis: Other antepartum hemorrhage, unspecified trimester; Subchorionic bleed; Vaginal bleeding in Primary Care Physician: NONE, XXXX Provider Information Primary Provider: Wil Chandra DO Advanced Inspector Final Assembly Electrical:Venkat Leal PA-C The exam and treatment you received in the Emergency Department were for an urgent problem and are not intended as complete care. It is important that you follow up with a doctor, nurse practitioner, or physician?s patient support assistant for ongoing care. If your [...] Follow-up Instructions: With: Address: When: Juvenal THORPE [facility], [address] [place] [address] , [place] [address] Business (1) In 3 days 09/26/2023 In the event that this physician does not participate in your insurance network, please consult with your insurance company to find a nearby participating provider. Patient Education Materials: Subchorionic Hematoma A MESSAGE TO ALL PATIENTS REGARDING OPIOIDS PRESCRIPTION OPIOIDS: WHAT YOU NEED TO KNOW Prescription opioids can be used to help relieve ociblyao-nh-lkphmm pain and are often prescribed following a [...] health care p (more content not included)... [facility] Prescriptions/Work Noteson 0 09-23-2023 Prescriptions/Work Notes [id number] [facility] US 1st Trimesteron 09-23-2023 1st Trimester [...] least 66% of the gestational sac circumference. [employer] Rump Length: 3.2 cm, which corresponds Composite [...] Size = Dates Uterus Position Anteverted Normal [facility] C Urineon 08-29-2023 Bacteria identified [...] Locations R1: This test was performed at: [facility], [address] [place] [address], [address] , , Normal [facility] Comment on above: Performed By: #### 4 [id number] ####[facility] [address] [place] [address] ABO/Rhon 08-27-2023 ABO/Rh Positive Invalid Interpretation Code [facility] Comment on above: Performed By: #### 2 [id number] ####[facility] [address] [place] [address] BLOOD BANKOrdered By: Liza Xavier on 08-27-2023 ABO/Rh Interp Positive Invalid Interpretation Code [facility] BB Subsection BMPon 08-27-2023 Anion gap [Moles/Vol] 11 mmol/L Normal 6-16 [facility] Comment on above: Performed By: #### 1 [id number], [id number], [id number] ####[facility] [address] [facility] [place] [address] Calcium [Mass/Vol] 9.3 mg/dL Normal 8.9-11.1 [facility] Comment on above: Performed By: #### 1 [id number], 7108369, 5871705 ####[facility] [address] [facility] [place] [address] Chloride [Moles/Vol] 104 mmol/L Normal 101-111 [facility] Comment on above: Performed By: #### 1 [id number], 6481412, 9528153 ####[facility] [address] [facility] [place] [address] CO2 [Moles/Vol] 24 mmol/L Normal 21-31 [facility] Comment on above: Performed By: #### 1 [id number], 7213437, 6880383 ####[facility] [address] [facility] [place] [address] Creatinine [Mass/Vol] 0.6 mg/dL Normal 0.5-1.3 [facility] Comment on above: Performed By: #### 1 8293267, 1539918, 4293990 ####[facility] [address] [place] [address] Glucose [Mass/Vol] 87 mg/dL Normal 55-199 [facility] Comment on above: Performed By: #### 1 [id number], 6335985, 9266143 ####[facility] [address] [place] [address] Potassium [Moles/Vol] 3.7 mmol/L Normal 3.5-5.3 [facility] Comment on above: Performed By: #### 1 [id number], 8815038, 4233752 ####[facility] [address] [place] [address] Sodium [Moles/Vol] 135 mmol/L Normal 135-145 [facility] Comment on above: Performed By: #### 1 9088344, 8522890, 9646346 ####[facility] [address] [place] [address] Urea nitrogen [Mass/Vol] 8 mg/dL Normal 5-21 [facility] Comment on above: Performed By: #### 1 [id number], 0051978, 5249332 ####[facility] [address] [place] [address] Urea nitrogen/Creatinine [Mass ratio] 13 No Units Normal 10-20 [facility] Comment on above: Performed By: #### 1 [id number], 4799081, 4756678 ####[facility] [address] [place] [address] BhCG Quanton 08-27-2023 [place] [address] m[IU]/mL High 1-3 F [facility] Comment on above: Result Comment: 'F N ON < 1 - 3' ' 0.2 - 1 WEEK = 5 TO 50' ' 1 - 2 WEEKS = 50 - 500' ' 2 - 3 WEEKS = 100 - 5000' ' 3 - 4 WEEKS = 500 - 16467' ' 4 - 5 WEEKS = 1000 - 89095' ' 5 - 6 WEEKS = 59392 - 528274' ' 6 - 8 WEEKS = 28161 - 572992' ' 8 - 12 WEEKS = 06632 - 166891' Performed By: #### 2 [id number] ####[facility] [address] [place] [address] CBC w/ Auto Diffon 4 Basophils/100 WBC (Bld) 0.6 % Normal 0.0-2.0 [facility] Comment on above: Performed By: #### 1 [id number], 7103953, 2416829 ####[facility] [address] [place] [address] Basophils/Leukocytes Auto (Bld) [Pure # fraction] 0.0 E9/L Normal 0.0-0.2 [facility] Comment on above: Performed By: #### 1 [id number], 9306856, 3511401 ####[address] [address] Eosinophils (Bld) [#/Vol] 0.1 E9/L Normal 0.0-0.5 [facility] Comment on above: Performed By: #### 1 4189738, 7857268, 6990760 ####[address] [address] Eosinophils/100 WBC (Bld) 2.0 % Normal 0.0-8.0 [facility] Comment on above: Performed By: #### 1 1270114, 3299353, 7404301 ####[address] [address] Erythrocyte distribution width (RBC) [Ratio] 15.0 % High 10.9-14.2 [facility] Comment on above: Performed By: #### 1 7787137, 3411299, 1999419 ####[address] [address] Hematocrit (Bld) [Volume fraction] 37.4 % Normal 34.0-46.0 [facility] Comment on above: Performed By: #### 1 0318750, 6492886, 9657494 ####[address] [address] Hemoglobin (Bld) [Mass/Vol] 12.7 g/dL Normal 12.0-16.0 [facility] Comment on above: Performed By: #### 1 6211660, 6618413, 8098168 ####[address] [address] Lymphocytes (Bld) [#/Vol] 2.0 E9/L Normal 1.0-4.0 [facility] Comment on above: Performed By: #### 1 8482718, 5406711, 7373258 ####[address] [address] Lymphocytes/100 WBC (Bld) 28.1 % Normal 14.0-50.0 [facility] Comment on above: Performed By: #### 1 7059215, 8071793, 4862588 ####[address] [address] MCH (RBC) [Entitic mass] 28.4 pg Normal 27.0-34.0 [facility] Comment on above: Performed By: #### 1 0477489, 5733869, 8892387 ####[place] [address] MCHC (RBC) [Mass/Vol] 33.8 g/dL Normal 31.4-36.0 [facility] Comment on above: Performed By: #### 1 7099549, 2648356, 7237417 ####[place] [address] MCV (RBC) [Entitic vol] 84.0 fL Normal 80.0-100.0 [facility] Comment on above: Performed By: #### 1 8044517, 8033398, 1321991 ####[place] [address] Monocytes (Bld) [#/Vol] 0.5 E9/L Normal 0.2-1.0 [facility] Comment on above: Performed By: #### 1 5717430, 9516816, 0871426 ####[address] [address] Neutrophils (Bld) [#/Vol] 4.5 E9/L Normal 2.0-7.5 [facility] Comment on above: Performed By: #### 1 0758524, 5287591, 1614462 ####[address] [address] Neutrophils/100 WBC (Bld) 61.9 % Normal 36.0-75.0 [facility] Comment on above: Performed By: #### 1 9631403, 1221298, 7524088 ####[address] [place] [address] Platelet mean volume (Bld) [Entitic vol] 7.9 fL Normal 6.4-10.8 [facility] Comment on above: Performed By: #### 1 1197934, 1822801, 4535826 ####[facility] [address] [place] [address] Platelets (Bld) [#/Vol] 252.0 E9/L Normal 150.0-500.0 [facility] Comment on above: Performed By: #### 1 8245283, 8963919, 1876382 ####[address] [address] RBC (Bld) [#/Vol] 4.5 E12/L Normal 4.3-5.9 [facility] Comment on above: Performed By: #### 1 4141441, 5123077, 8930977 ####[facility] [address] [place] [address] WBC corrected for nucl RBC Auto (Bld) [#/Vol] 7.2 E9/L Normal 4.0-11.0 [facility] Comment on above: Performed By: #### 1 8174033, 3218336, 2831439 ####[facility] [address] [place] [address] CHEMISTRYOrdered By: SYSTEM SYSTEM on 08-27-2023 Anion [...] 199 mg/[place] [address] m[IU]/mL High 1 - 3 mIU/mL [facility] Comment on above: Result Comment: 'F N ON < 1 - 3' ' 0.2 - 1 WEEK = 5 TO 50' ' 1 - 2 WEEKS = 50 - 500' ' 2 - 3 WEEKS = 100 - 5000' ' 3 - 4 WEEKS = 500 - 57093' ' 4 - 5 WEEKS = 1000 - 83973' ' 5 - 6 WEEKS = 22117 - 586905' ' 6 - 8 WEEKS = 86334 - 907768' ' 8 - 12 WEEKS = [address]07[address] - 323513' Potassium [Moles/Vol] 3.7 mmol/L Normal 3.5 - 5.3 mmol/L [facility] Sodium [Moles/Vol] 135 mmol/L Normal 135 - 145 mmol/L [facility] Urea nitrogen [Mass/Vol] 8 mg/dL Normal 5 - 21 mg/d L [facility] Urea nitrogen/Creatinine [Mass ratio] 13 mg/mg Normal 10 - 20 [facility] Consent for Treatmenton 08-08 Consent for Treatment [id number] Normal [facility] Discharge Instructionson Discharge Instructions [id number] Normal [facility] ED Clinical Summaryon 2023 ED Clinical Summary [place] [id number] ED Clinical Summary Person Information Name: KAILYN ACKERMAN [facility] Age: 22 Years : 2000 Sex: Female Language: Grenadian PCP: SELAM HUNTER CNP Marital Status: Single Phone: [phone] MRN: Visit Id: Visit Reason: Vaginal bleeding [...] 08/27/2023 12:34:16 08/27/2023 12:34:16 08/27/2023 12:34:16 ADDRESS: [address] [place] [id number] PHYS DOC NOTES: MEDICAL INFORMATION: Prescriptions Given: Medications to Continue Taking That Have Changed [employer] [facility] [address] [place], [place] [id number], [phone] START: cephalexin (Keflex 500 mg Cap) 1 [...] Urinary Tract Infection; Urinary Tract Infection, Adult, Jdqq-pk-Ehzp; Subchorionic Hematoma Follow up: With: Address: When: Juvenal THORPE [facility], [address] [place] [address] [place], [place] [id number] Business (1) In 3 days 08/30/2023 With: Address: When: [place] [address] Business (1) In 3 days DIAGNOSIS: Other antepartum hemorrhage, unspecified trimester; Subchorionic bleed; UTI (urinary tract infection) during ; Vaginal bleeding in Normal [facility] ED Note-Physicianon 08-27-19 ED Note-Physician [...] Complexity of Problems Differential Diagnosis: [] [facility] Data External documents reviewed: [] My [...] day(s), # 28 cap(s), Refills(s) 0, Pharmacy: [id number], 170, cm, 08/27/23 9:49:00 EDT, Height/Length [...] Juvenal THORPE In 3 days 08/30/[address] [place] [address]- Business (1) Additional Instructions: SELAM HUNTER In 3 days [facility] [place] [address]- Business (1) Additional Instructions: Patient Education and Urinary Tract Infection Urinary Tract Infection, Adult, Eezu-cb-Atjm Subchorionic Hematoma Attestation Patient seen and evaluated by the physician patient support assistant. Attending physician was present in the emergency department and s (more content not included)... Normal [facility] Comment [...] provider. Document Revised: 01/09/2022 Document Reviewed: 01/09/2022 [employer] Patient Education ? 2022 [employer] Urinary Tract Infection, Adult A urinary [...] (inflammation) (more content not included)... Normal [facility] ED Patient Summaryon 024 ED Patient Summary [place] [id number] Patient Discharge Instructions Person Information Name: KAILYN ACKERMAN Age: 22 Years Arrival Date: 08/27/2023 09:37:12 Discharge Diagnosis: Other antepartum hemorrhage, unspecified trimester; Subchorionic bleed; UTI (urinary tract infection) during ; Vaginal bleeding in Primary Care Physician: SELAM HUNTER CNP Provider Information Primary Provider: Emily Harper M.D. Advanced Inspector Final Assembly Electrical:None The exam and treatment you received in the Emergency Department were for an urgent problem and are not intended as complete care. It is important that you follow up with a doctor, nurse practitioner, or physician?s patient support assistant for ongoing care. If your [...] instructions: Follow-up Instructions: With: Address: When: [facility] [address] [place] [address] Dr. [facility] [place] [phone] Business (1) In 3 days 08/30/2023 With: Address: When: SELAM HUNTER [address] [place] [address] [place] [phone] Business (1) In 3 days In the event that this physician does not participate in your insurance network, please consult with your insurance company to find a nearby participating provider. Patient Education Materials: and Urinary Tract Infection; Urinary Tract Infection, Adult, Uiuf-yh-Csvp; Subchorionic Hematoma A MESSAGE TO ALL PATIENTS REGARDING OPIOIDS PRESCRIPTION OPIOIDS: WHAT YOU NEED TO KNOW Prescription opioids can be used to help relieve swunmkhs-wd-xvjmxd pain and are often prescribed following a [...] toilet, follo (more content not included)... Normal [facility] HEMATOLOGYOrdered By: SYSTEM SYSTEM on [...] 08-27-19 24 Color (U) Light-Yellow Normal Yellow [facility] Comment on above: Result Comment: Micr oscopic readings are only performed on those samples that meet specific criteria set forth by [facility] Laboratory. Performed By: #### 4 [id number], [id number] ####[address] [address] Glucose (U) [Mass/Vol] Negative Normal Negative Fi [facility] Comment on above: Performed By: #### 4 [id number], [id number] ####[facility] [address] [place] [address] Ketones Ql (U) Negative Normal Negative [facility] Comment on above: Performed By: #### 4 [id number], [id number] ####[facility] [address] [place] [address] UA Blood 3+ Abnormal Negative [facility] Comment on above: Performed By: #### 4 [id number], [id number] ####[facility] [address] [place] [address] UA Bacteria 1+ [id number] Abnormal Trace [facility] Comment on above: Performed By: #### 4 [id number], [id number] ####[address] [address] UA Clarity Turbid Abnormal Clear [facility] Comment on above: Performed By: #### 4 [id number], [id number] ####[facility] [address] [place] [address] UA Hyal Cast 0-3 Normal 0-3 [facility] Comment on above: Performed By: #### 4 [id number], [id number] ####[facility] [address] [place] [address] UA Leuk Est 250 Stefania/uL Abnormal Negative [facility] Comment on above: Performed By: #### 4 [id number], [id number] ####[facility] [address] [place] [address] UA Mucous Trace Normal Negative [facility] Comment on above: Performed By: #### 4 [id number], [id number] ####[facility] [address] [place] [address] UA Nitrite Negative Normal Negative [facility] Comment on above: Performed By: #### 4 [id number], [id number] ####[facility] [address] [place] [address] UA pH 5.5 Invalid Interpretation Code 5.0-9.0 [facility] Comment on above: Performed By: #### 4 [id number], [id number] ####[facility] [address] [place] [address] UA Protein 1+ mg/dL Abnormal Negative [facility] Comment on above: Performed By: #### 4 [id number], [id number] ####[facility] [address] [place] [address] UA RBC 4-20 Abnormal 0-3 [facility] Comment on above: Performed By: #### 4 [id number], [id number] ####[facility] [address] [place] [address] UA Spec Grav 1.018 Invalid Interpretation Code 1.005-1.030 [facility] Comment on above: Performed By: #### 4 [id number], [id number] ####[facility] [address] [facility] [place] [address] UA Squam Epithelial 3-4 Abnormal 0-2 [facility] Comment on above: Performed By: #### 4 [id number], [id number] ####[facility] [address] [place] [address] UA Urobilinogen Negative Normal Negative [facility] Comment on above: Performed By: #### 4 [id number], [id number] ####[facility] [address] [place] [address] UA WBC 6-15 Abnormal 0-5 [facility] Comment on above: Performed By: #### 4 [id number], [id number] ####[facility] [address] [place] [address] Urobilinogen (U) [Mass/Vol] Negative Normal Negative [facility] Comment on above: Performed By: #### 4 [id number], [id number] ####[facility] [address] [place] [address] UA Spec Desc Clean Catch Normal [facility] Comment on above: Performed By: #### 4 [id number], [id number] ####[facility] [address] [place] [address] URINALYSISOrdered By: SYSTEM SYSTEM on 08-27-2023 Color (U) Light-Yellow 1 (08/27/23 9:55 AM) Normal Yellow [facility] Auto SS Comment on above: Interpretive Data: M icroscopic readings are only performed on those samples that meet specific criteria set forth by [facility] Laboratory. Glucose (U) [Mass/Vol] Negative [...] Reason for Exam: Other (please specify) Report [facility] [phone] IMPRESSION: Single live intrauterine with estimated sonographic [...] heart rate is measured at 120 bpm. Commerce-rump length 4.77 mm. Estimated sonographic gestational age [...] Transvaginal Ultrasound Performed FHR (bpm) 120 Normal [facility] US Transvaginalon 08-27-2023 US Transvaginal Exam Date/Time: 08/27/2023 11:55 EDT Reason for Exam: Other (please specify) Report [facility] [phone] Please see ultrasound pelvis, for report of transvaginal examination. Ordering Provider: Hudson Riley FINAL REPORT Dictated: 08/27/2023 12:33 pm Zach Deng MD Signed (Electronic Signature): 08/27/2023 12:33 pm Signed by: Zach Deng MD Transcribed by: KIRK Technologist: SHELLEY Normal [facility] eGFRon 08-27-2023 eGFR 131 mL/min/1.73 m2 Normal >=59 [facility] Comment on above: Order Comment: Order added by Discern Expert. Performed By: #### 1 [id number], [id number], [id number] ####[facility] [address] [place] [address] [facility] Quanton 08-19-2023 HCG.beta subunit Qn 4261 m[IU]/mL High 1-3 Fi [facility] Comment on above: Result Comment: 'F N ON < 1 - 3' ' 0.2 - 1 WEEK = 5 TO 50' ' 1 - 2 WEEKS = 50 - 500' ' 2 - 3 WEEKS = 100 - 5000' ' 3 - 4 WEEKS = 500 - 13129' ' 4 - 5 WEEKS = 1000 - 98314' ' 5 - 6 WEEKS = [address] - 816918' ' 6 - 8 WEEKS = [address]48 - 365203' ' 8 - 12 WEEKS = 75228 - 074291' Performed By: #### 2 [id number] ####[facility] [address] [place] [address] Physician Orderon 08-19-2023 Physician Order [id number] Normal [facility] CHEMISTRYOrdered By: Juancho benitez on [...] ratio] 12 mg/mg Normal 10 - 20 [facility] Remisol CHEMISTRYOrdered By: SYSTEM SYSTEM on 01-03-2023 GFR/1.73 sq M.predicted among non-blacks MDRD (S/P/Bld) [Vol rate/Area] 108 mL/min/1.73 m2 Normal >=59mL/min/1 .73 m2 [facility] Chem S HCG.beta subunit Qn 1572 m[IU]/mL High 1 - 3 mIU/mL [facility] Remisol HEMATOLOGYOrdered By: SYSTEM SYSTEM on 01-03-2023 [...] 16.9 E9/L High 4.0 - 11.0 E9/L [facility] HemeAutoSS Laboratory - Microbiology an d Antimicrobial susceptibilityOrdered By: Asuncion Goncalves on 01-03-2023 Bacteria identified Cx Nom (U) No growth to date Continuing incubation [facility] MICRO OTHER TESTSOrdered By: Juancho [...] Interpretation Code Negative [facility] UA Auto SS [place].plasma/[place].R BC (Bld) [Mass ratio] 0-3 /HPF Normal [...] FT UA Auto SS Urobilinogen Qn (U) 1.8466772 {Georgina'U}/dL Normal 0.0 - 1.0 EU/dL [facility] UA Auto SS WBC Auto Ql (U) 1+ *ABN* (01/03/23 10:52 PM) Invalid Interpretation Code Negative [facility] UA Auto SS WBC LM.HPF (Urine sed) [#/Area] 6-15 /HPF Invalid Interpretation Code 0-5/HPF [facility] UA Auto SS Alanine aminotransferase [En zymatic activity/volume] in Serum or PlasmaOrdered By: Jose Silverman on 10-02-2022 ALT [Catalytic activity/Vol] 13 U/L Normal 7-52 [facility] Comment on above: Performed By: #### C BC, CMP, ETOH #### [facility] [address] [place] [address] [place] Albumin [Mass/volume] in Ser um or Plasma by Bromocresol green (BCG) dye binding methoOrdered By: Jose Silverman on 10-02-2022 Albumin BCG dye [Mass/Vol] 5.0 g/dL 3.5-5.7 [facility] Alkaline phosphatase [Enzyma tic activity/volume] in Serum or PlasmaOrdered By: Jose Silverman on 10-02-2022 ALP [Catalytic activity/Vol] 69 U/L Normal 34-104 [facility] Comment on above: Performed By: #### C BC, CMP, ETOH #### [facility] [address] [place] [address] [place] Amphetamine Screen Ql (U)Ord ered By: Jose Silverman on 10-02-2022 Amphetamines Ql (U) Negative Negative [facility] Aspartate aminotransferase [ Enzymatic activity/volume] in Serum or PlasmaOrdered By: Jose Silverman on 10-02-2022 AST [Catalytic activity/Vol] 21 U/L Normal 13-39 [facility] Comment on above: Performed By: #### C BC, CMP, ETOH #### [address] Automated basophil %Ordered By: Jose Silverman on 10-02-2022 Basophils/100 WBC (Bld) 0.5 % Normal . [facility] Comment on above: Performed By: #### C BC, CMP, ETOH #### [address] Automated basophil countOrde red By: Jose Silverman on 10-02-2022 Basophils (Bld) [#/Vol] 0.1 10*3/uL Normal 0.0-0.2 [facility] Comment on above: Result Comment: PERF ORMED BY: [place] [address] PATHOLOGIST SOCIAL WORK MANAGER ASHELY CAREY M.D. Performed By: #### C BC, CMP, ETOH #### [address] Automated blood monocyte cou ntOrdered By: Jose Silverman on 10-02-2022 Monocytes (Bld) [#/Vol] 0.7 10*3/uL Normal 0.0-0.8 [facility] Comment on above: Performed By: #### C BC, CMP, ETOH #### [address] Automated eosinophil %Ordere d By: Jose Silverman on 10-02-2022 Eosinophils/100 WBC (Bld) 2.0 % Normal . [facility] Comment on above: Performed By: #### C BC, CMP, ETOH #### [address] Automated eosinophil countOr dered By: Jose Silverman on 10-02-2022 Eosinophils (Bld) [#/Vol] 0.3 10*3/uL Normal 0.0-0.45 [facility] Comment on above: Performed By: #### C BC, CMP, ETOH #### [address] Automated erythrocytes count in urine sediment (number/area)Ordered By: Jose Silverman on 10-02-2022 RBC Auto (Urine sed) [#/Area] 0-1 [HPF] 0-4 [facility] Automated leukocytes count i n urine sediment (number/area)Ordered By: Jose Silverman on 10-02-2022 WBC Auto (Urine sed) [#/Area] 10-19 [HPF] 0-4 [facility] Automated monocyte %Ordered By: Jose Silverman on 10-02-2022 Monocytes/100 WBC (Bld) 5.7 % Normal . [facility] Comment on above: Performed By: #### C BC, CMP, ETOH #### [facility] [address] Automated neutrophil %Ordere d By: Jose Silverman on 10-02-2022 Neutrophils/100 WBC (Bld) 68.7 % Normal . [facility] Comment on above: Performed By: #### C BC, CMP, ETOH #### [facility] [address] [place] [address] [place] Barbiturates [Presence] in U rine by Screen methodOrdered By: Jose Silverman on 10-02-2022 Barbiturates Screen Ql (U) Negative Negative [facility] Benzodiazepines Screen Ql (U )Ordered By: Jose Silverman on 10-02-2022 Benzodiazepines Ql (U) Negative Negative [facility] Benzoylecgonine [Presence] i n Urine by Screen methodOrdered By: Jose Silverman on 10-02-2022 Benzoylecgonine Screen Ql (U) Negative Negative [facility] Bilirubin Test strip Ql (U)O rdered By: Jose Silverman on 10-02-2022 Bilirubin Ql (U) Negative Negative [facility] Bilirubin.total [Mass/volume ] in Serum or PlasmaOrdered By: Jose Silverman on 10-02-2022 Bilirubin [Mass/Vol] 0.3 mg/dL Normal 0.3-1.0 [facility] Comment on above: Performed By: #### C BC, CMP, ETOH #### [facility] [address] [place] [id number] [place] Calcium [Mass/volume] in Ser um or PlasmaOrdered By: Jose Silverman on 10-02-2022 Calcium [Mass/Vol] 9.6 mg/dL Normal 8.6-10.3 [facility] Comment on above: Performed By: #### C BC, CMP, ETOH #### [facility] [address] [place] [address] [place] Cannabinoids [Presence] in U rine by Screen methodOrdered By: Jose Silverman on 10-02-2022 Cannabinoids Screen Ql (U) Negative Negative [facility] Comment on above: These are unconfirme d results and should not be used for legal purposes. Drug Cut-Off Concentration: AMPH 1000 ng/mL MIAH 200 ng/mL AYAN 200 ng/mL COCM 300 ng/mL OP 300 ng/mL PCP 25 ng/mL THC 20 ng/mL Carbon dioxide, total [Moles /volume] in Serum or PlasmaOrdered By: Jose Silverman on 10-02-2022 CO2 [Moles/Vol] 27.2 mmol/L Normal 21.0-31.0 [facility] Comment on above: Performed By: #### C BC, CMP, ETOH #### [place] [address] [place] Chloride [Moles/volume] in S brian or PlasmaOrdered By: Jose Silverman on 10-02-2022 Chloride [Moles/Vol] 101 mmol/L Normal 98-107 [facility] Comment on above: Performed By: #### C BC, CMP, ETOH #### [place] [address] [place] Color Auto (U)Ordered By: Loli Silverman on 10-02-2022 Color (U) Yellow Yellow [facility] Complete Blood Count Auto Di ffon 10-02-2022 Mean Corpuscular HGB Conc 32.0 g/dL Normal 32.0-35.0 [facility] Comment on above: Performed By: #### C BC, CMP, ETOH #### [place] [address] [place] Monocytes/100 WBC (Bld) 17.72 % Normal 0.00-20.00 [facility] Comment on above: Performed By: #### C BC, CMP, ETOH #### [address] NRBC% 0.0 /100{WBC} Normal 0-0.5 [facility] Comment on above: Performed By: #### C BC, CMP, ETOH #### [address] Comprehensive Metabolic Pane tung 10-02-2022 Albumin [Mass/Vol] 5.0 g/dL Normal 3.5-5.7 [facility] Comment on above: Performed By: #### C BC, CMP, ETOH #### [address] Creatinine Clr Calc Pharmacy 107.48 Normal [facility] Comment on above: Result Comment: PERF ORMED BY: [place] [address] PATHOLOGIST SOCIAL WORK MANAGER ASHELY CAREY M.D. Performed By: #### C BC, CMP, ETOH #### [address] GFR/1.73 sq M.predicted MDRD (S/P/Bld) [Vol rate/Area] mL/min/{1.73_m2} Normal [facility] Comment on above: Performed By: #### C BC, CMP, ETOH #### [address] Creatinine [Mass/volume] in Serum or PlasmaOrdered By: Jose Silverman on 10-02-2022 Creatinine [Mass/Vol] 0.89 mg/dL Normal 0.60-1.20 [facility] Comment on above: Performed By: #### C BC, CMP, ETOH #### [place] [address] [place] Dipstick and Microscopicon 0 10-02-2022 Appearance (U) Clear Normal Clear [facility] Comment on above: Order Comment: Name Collection Type:: Clean-Voided Midstream Performed By: #### U RDS, ADDONUAPLUS, CUU, UHCG #### [address] Bacteria,Urine 2+ High None Seen [facility] Comment on above: Order Comment: Name Collection Type:: Clean-Voided Midstream Performed By: #### U RDS, ADDONUAPLUS, CUU, UHCG #### [facility] [address] [place] [address] [place] Bilirubin,Urine Negative Normal Negative [facility] Comment on above: Order Comment: Name Collection Type:: Clean-Voided Midstream Performed By: #### U RDS, ADDONUAPLUS, CUU, UHCG #### [facility] [address] [place] [address] Color (U) Yellow Normal Yellow [facility] Comment on above: Order Comment: Name Collection Type:: Clean-Voided Midstream Performed By: #### U RDS, ADDONUAPLUS, CUU, UHCG #### [facility] [address] [place] [address] Glucose Ql (U) Normal Normal Normal [facility] Comment on above: Order Comment: Name Collection Type:: Clean-Voided Midstream Performed By: #### U RDS, ADDONUAPLUS, CUU, UHCG #### [facility] [address] [place] [address] [place] Hyaline Casts,Urine 0-8 Normal 0-8 [facility] Comment on above: Order Comment: Name Collection Type:: Clean-Voided Midstream Performed By: #### U RDS, ADDONUAPLUS, CUU, UHCG #### [facility] [address] [place] [address] [place] Ketones Ql (U) Negative Normal Negative [facility] Comment on above: Order Comment: Name Collection Type:: Clean-Voided Midstream Performed By: #### U RDS, ADDONUAPLUS, CUU, UHCG #### [facility] [address] [place] [address] [place] Leukocyte esterase Test strip Ql (U) 3+ High Negative [facility] Comment on above: Order Comment: Name Collection Type:: Clean-Voided Midstream Performed By: #### U RDS, ADDONUAPLUS, CUU, UHCG #### [facility] [address] [place] [address] [place] Nitrite,Urine Negative Normal Negative [facility] Comment on above: Order Comment: Name Collection Type:: Clean-Voided Midstream Performed By: #### U RDS, ADDONUAPLUS, CUU, UHCG #### [address] Occult Blood,Urine Negative Normal Negative [facility] Comment on above: Order Comment: Name Collection Type:: Clean-Voided Midstream Performed By: #### U RDS, ADDONUAPLUS, CUU, UHCG #### [address] pH (U) 6.5 [pH] Normal 5.0-9.0 [facility] Comment on above: Order Comment: Name Collection Type:: Clean-Voided Midstream Performed By: #### U RDS, ADDONUAPLUS, CUU, UHCG #### [address] Protein,Urine Negative Normal Negative [facility] Comment on above: Order Comment: Name Collection Type:: Clean-Voided Midstream Performed By: #### U RDS, ADDONUAPLUS, CUU, UHCG #### [address] RBC LM.HPF (Urine sed) [#/Area] 0 /[HPF] Normal 0-4 [facility] Comment on above: Order Comment: Name Collection Type:: Clean-Voided Midstream Performed By: #### U RDS, ADDONUAPLUS, CUU, UHCG #### [address] Specificy [place],Urine 1.021 Normal 1.001-1.030 [facility] Comment on above: Order Comment: Name Collection Type:: Clean-Voided Midstream Performed By: #### U RDS, ADDONUAPLUS, CUU, UHCG #### [address] Squamous Epithelial Cell,Urine 10-19 High 0-2 [facility] Comment on above: Order Comment: Name Collection Type:: Clean-Voided Midstream Performed By: #### U RDS, ADDONUAPLUS, CUU, UHCG #### [facility] [address] [place] [address] Urobilinogen,Urine Normal Normal Normal [facility] Comment on above: Order Comment: Name Collection Type:: Clean-Voided Midstream Performed By: #### U RDS, ADDONUAPLUS, CUU, UHCG #### [facility] [address] [place] [address] WBC,Urine 10-19 High 0-4 [facility] Comment on above: Order Comment: Name Collection Type:: Clean-Voided Midstream Performed By: #### U RDS, ADDONUAPLUS, CUU, UHCG #### [address] Drug Screen,Urineon 10-03-19 Amphetamine Screen,Urine Negative Normal Negative [facility] Comment on above: Performed By: #### U RDS, ADDONUAPLUS, CUU, UHCG #### [place] [address] [place] Barbiturate Screen,Urine Negative Normal Negative [facility] Comment on above: Performed By: #### U RDS, ADDONUAPLUS, CUU, UHCG #### [facility] [address] [place] [address] [place] Benzodiazepines Screen,Urine Negative Normal Negative [facility] Comment on above: Performed By: #### U RDS, ADDONUAPLUS, CUU, UHCG #### [facility] [address] [place] [address] [place] Cannabinoid Screen,Urine Negative Normal Negative [facility] Comment on above: Result Comment: Thes e are unconfirmed results and should not be used for legal purposes. Drug Cut-Off Concentration: AMPH 1000 ng/mL MIAH 200 ng/mL AYAN 200 ng/mL COCM 300 ng/mL OP 300 ng/mL PCP 25 ng/mL THC 20 ng/mL PERFORMED BY: [place] [address] PATHOLOGIST SOCIAL WORK MANAGER ASHELY CAREY M.D. Performed By: #### U RDS, ADDONUAPLUS, CUU, UHCG #### [facility] [address] [place] [address] [place] Cocaine Screen,Urine Negative Normal Negative [facility] Comment on above: Performed By: #### U RDS, ADDONUAPLUS, CUU, UHCG #### [facility] [address] [place] [address] [place] Opiate Screen,Urine Negative Normal Negative [facility] Comment on above: Performed By: #### U RDS, ADDONUAPLUS, CUU, UHCG #### [address] Phencyclidine Screen,Urine Negative Normal Negative [facility] Comment on above: Performed By: #### U RDS, ADDONUAPLUS, CUU, UHCG #### [address] Erythrocyte distribution wid th [Ratio] by Automated countOrdered By: Jose Silverman on 10-02-2022 Erythrocyte distribution width (RBC) [Ratio] 15.8 % High 11.9-15.3 [facility] Comment on above: Performed By: #### C BC, CMP, ETOH #### [address] Erythrocytes [#/volume] in B lood by Automated countOrdered By: Jose Silverman on 10-02-2022 RBC (Bld) [#/Vol] 5.31 10*6/uL High 3.60-5.00 [facility] Comment on above: Performed By: #### C BC, CMP, ETOH #### [place] [address] [place] Ethanol [Mass/volume] in Ser um or PlasmaOrdered By: Jose Silverman on 10-02-2022 Ethanol [Mass/Vol] mg/dL Normal [facility] Comment on above: Performed By: #### C BC, CMP, ETOH #### [place] [address] [place] Ethanol [Mass/Vol] TNP [facility] Comment on above: Test not performed Ethyl Alcohol Profileon 09-08 Percent Ethanol Not performed Normal [facility] Comment on above: Result Comment: PERF ORMED BY: [place] [address] PATHOLOGIST SOCIAL WORK MANAGER ASHELY CAREY M.D. Performed By: #### C BC, CMP, ETOH #### [facility] [address] [id number] [place] Glucose [Mass/volume] in Ser um or PlasmaOrdered By: Jose Silverman on 10-02-2022 Glucose [Mass/Vol] 98 mg/dL Normal 70-100 [facility] Comment on above: ADA recommended refe rence rangeRandom Glucose Reference Range is dependent on time and content of last meal. Glucose of more than 200 mg/dL in a nonstressed, ambulatory subject supports the diagnosis of Diabetes Mellitus. Result Comment: [place] om Glucose Reference Range is dependent on time and content of last meal. Glucose of more than 200 mg/dL in a nonstressed, ambulatory subject supports the diagnosis of Diabetes Mellitus. ADA recommended reference range Performed By: #### C BC, CMP, ETOH #### [place] [id number] [place] HCG ( test) IA.rapi d Ql (U)Ordered By: Jose Silverman on 10-02-2022 HCG ( test) Ql (U) Negative [facility] HCG,Urineon 10-02-2022 Beta HCG ( test) Ql (U) Negative Normal [facility] Comment on above: Order Comment: Name Collection Type:: Clean-Voided Midstream Result Comment: PERF ORMED BY: [place] [address] PATHOLOGIST SOCIAL WORK MANAGER ASHELY CAREY M.D. Performed By: #### U RDS, ADDONUAPLUS, CUU, UHCG #### [facility] [address] [place] [address] [place] Hematocrit [Volume Fraction] of Blood by Automated countOrdered By: Jose Silverman on 10-02-2022 Hematocrit (Bld) [Volume fraction] 41.7 % Normal 34.0-46.4 [facility] Comment on above: Performed By: #### C BC, CMP, ETOH #### [address] Hemoglobin [Mass/volume] in BloodOrdered By: Jose Sliverman on 10-02-2022 Hemoglobin (Bld) [Mass/Vol] 13.3 g/dL Normal 11.8-15.4 [facility] Comment on above: Performed By: #### C BC, CMP, ETOH #### [address] Ketones Auto test strip (U) [Mass/Vol]Ordered By: Jose Silverman on 10-02-2022 Ketones (U) [Mass/Vol] Negative Negative [facility] Laboratory - UrinalysisOrder ed By: Jose Silverman on 10-02-2022 Hyaline casts LM Ql (Urine sed) 0-8 [LPF] 0-8 [facility] Leukocytes [#/volume] correc ruby for nucleated erythrocytes in Blood by Automated counOrdered By: Jose Silverman on 10-02-2022 WBC corrected for nucl RBC Auto (Bld) [#/Vol] 12.9 10*3/uL 3.8-11.6 [facility] Leukocytes [#/volume] in Blo od by Automated countOrdered By: Jose Silverman on 10-02-2022 WBC (Bld) [#/Vol] 12.9 10*3/uL High 3.8-11.6 [facility] Comment on above: Performed By: #### C BC, CMP, ETOH #### [place] [address] [place] Lymphocytes [#/volume] in Bl ood by Automated countOrdered By: Jose Silverman on 10-02-2022 Lymphocytes (Bld) [#/Vol] 3.0 10*3/uL Normal 1.00-4.8 [facility] Comment on above: Performed By: #### C BC, CMP, ETOH #### [place] [address] [place] Lymphocytes/100 leukocytes i n Blood by Automated countOrdered By: Jose Silverman on 10-02-2022 Lymphocytes/100 WBC (Bld) 23.1 % Normal . [facility] Comment on above: Performed By: #### C BC, CMP, ETOH #### [address] MCH [Entitic mass] by Automa ruby countOrdered By: Jose Silverman on 10-02-2022 MCH (RBC) [Entitic mass] 25.2 pg Normal 24.7-34.3 [facility] Comment on above: Performed By: #### C BC, CMP, ETOH #### [address] MCHC Auto (RBC) [Mass/Vol]Or dered By: Jose Silverman on 10-02-2022 MCHC (RBC) [Mass/Vol] 32.0 g/dL 32.0-35.0 [facility] MCV [Entitic volume] by Auto mated countOrdered By: Jose Silverman on 10-02-2022 MCV (RBC) [Entitic vol] 78.5 fL Low 80-100 [facility] Comment on above: Performed By: #### C BC, CMP, ETOH #### [address] Monocyte distribution width [Entitic volume] in Blood by AutomatedOrdered By: Jose Silverman on 10-02-2022 Monocyte distribution width Auto (Bld) [Entitic vol] 17.72 % 0.00-20.00 [facility] Neutrophils [#/volume] in Bl ood by Automated countOrdered By: Jose Silvemran on 10-02-2022 Neutrophils (Bld) [#/Vol] 8.9 10*3/uL High 1.8-7.7 [facility] Comment on above: Performed By: #### C BC, CMP, ETOH #### [address] Nitrite Test strip Ql (U)Ord ered By: Jose Silverman on 10-02-2022 Nitrite Ql (U) Negative Negative [facility] No Panel InformationOrdered By: Jose Silverman on 10-02-2022 Estimated GFR (CKD-EPI) > 60.0 mL/Min [facility] Creatinine Clearance (Chem 107.48 [facility] Nucleated erythrocytes [Pres ence] in Blood by Automated countOrdered By: Jose Silverman on 10-02-2022 Nucleated RBC Auto Ql (Bld) 0.0 /100{WBC} 0-0.5 [facility] Opiates [Presence] in Urine by Screen methodOrdered By: Jose Silverman on 10-02-2022 Opiates Screen Ql (U) Negative Negative [facility] Phencyclidine Screen Ql (U)O rdered By: Jose Silverman on 10-02-2022 Phencyclidine Ql (U) Negative Negative [facility] Platelet mean volume [Entiti c volume] in Blood by Automated countOrdered By: Jose Silverman on 10-02-2022 Platelet mean volume (Bld) [Entitic vol] 7.7 fL Normal 6.3-10.7 [facility] Comment on above: Performed By: #### C BC, CMP, ETOH #### [facility] [address] [place] [address] Platelets [#/volume] in Bloo d by Automated countOrdered By: Jose Silverman on 10-02-2022 Platelets (Bld) [#/Vol] 342 10*3/uL Normal 150-450 [facility] Comment on above: Performed By: #### C BC, CMP, ETOH #### [facility] [address] [place] [address] Potassium [Moles/volume] in Serum or PlasmaOrdered By: Jose Silverman on 10-02-2022 Potassium [Moles/Vol] 3.8 mmol/L Normal 3.5-5.1 [facility] Comment on above: Performed By: #### C BC, CMP, ETOH #### [facility] [address] [place] [address] [place] Protein Auto test strip (U) [Mass/Vol]Ordered By: Jose Silverman on 10-02-2022 Protein (U) [Mass/Vol] Negative Negative [facility] Protein [Mass/volume] in Ser um or PlasmaOrdered By: Jose Silverman on 10-02-2022 Protein [Mass/Vol] 8.7 g/dL Normal 6.4-8.9 [facility] Comment on above: Performed By: #### C BC, CMP, ETOH #### [address] Serum globulin measurement b y calculation (mass/volume)Ordered By: Jose Silverman on 10-02-2022 Globulin (S) [Mass/Vol] 3.7 g/dL Normal [facility] Comment on above: Performed By: #### C BC, CMP, ETOH #### [address] Serum or plasma albumin/glob ulin mass ratioOrdered By: Jose Silverman on 10-02-2022 Albumin/Globulin [Mass ratio] 1.4 {ratio} Normal [facility] Comment on above: Performed By: #### C BC, CMP, ETOH #### [address] Serum or plasma anion gap de terminationOrdered By: Jose Silverman on 10-02-2022 Anion gap [Moles/Vol] 12.6 mmol/L Normal 6.0-15.0 [facility] Comment on above: Performed By: #### C BC, CMP, ETOH #### [address] Sodium [Moles/volume] in Ser um or PlasmaOrdered By: Jose Silverman on 10-02-2022 Sodium [Moles/Vol] 137 mmol/L Normal 136-145 [facility] Comment on above: Performed By: #### C BC, CMP, ETOH #### [address] Specific gravity Auto test s trip (U) [Rel density]Ordered By: Jose Silverman on 10-02-2022 Specific gravity (U) [Rel density] 1.021 1.001-1.030 [facility] Squamous epithelial cells de tection in urine sediment by light microscopyOrdered By: Jose Silverman on 10-02-2022 Epithelial cells.squamous LM Ql (Urine sed) 10-19 [HPF] 0-2 [facility] Urea nitrogen [Mass/volume] in Serum or PlasmaOrdered By: Jose Silverman on 10-02-2022 Urea nitrogen [Mass/Vol] 18 mg/dL Normal 7-25 [facility] Comment on above: Performed By: #### C BC, CMP, ETOH #### [facility] [address] [place] [address] [place] Urine Cultureon 10-02-2022 Bacteria identified Cx Nom (U) ORGANISM: Strep agalactiae - (group b) (O:STRAGA) [place] Count 50,000 PERFORMED BY: [place] [address] PATHOLOGIST SOCIAL WORK MANAGER ASHELY CAREY M.D. Normal [facility] Comment on above: Performed By: #### U RDS, ADDONUAPLUS, CUU, UHCG #### [facility] [address] [place] [address] Urine bacteria detection by automated methodOrdered By: Jose Silverman on 10-02-2022 Bacteria Auto Ql (U) 2+ None Seen [facility] Urine clarity by refractomet ry automatedOrdered By: Jose Silverman on 10-02-2022 Clarity Refractometry automated (U) Clear Clear [facility] Urine glucose measurement by automated test strip (mass/volume)Ordered By: Jose Silverman on 10-02-2022 Glucose Auto test strip (U) [Mass/Vol] Normal mg/dL Normal [facility] Urine hemoglobin detection b y automated test stripOrdered By: Jose Silverman on 10-02-2022 Hemoglobin Auto test strip Ql (U) Negative Negative [facility] Urine leukocyte esterase det ection by automated test stripOrdered By: Joes Silverman on 10-02-2022 Leukocyte esterase Auto test strip Ql (U) 3+ Negative [facility] Urobilinogen Auto test strip (U) [Mass/Vol]Ordered By: Jose Silverman on 10-02-2022 Urobilinogen (U) [Mass/Vol] Normal mg/dL Normal [facility] pH Auto test strip (U)Ordere d By: Jose Silverman on 10-02-2022 pH (U) 6.5 [pH] 5.0-9.0 [facility] Quick Strepon 09-25-2022 S. pyogenes Org specific cx Ql (Throat) Negative [employer] Other Quick Strep [employer] Other CHEMISTRYOrdered By: SYSTEM SYSTEM on 09-06-2022 [...] AM) Normal Negative [facility] UA Auto SS [place].plasma/[place].R BC (Bld) [Mass ratio] >30 /HPF Invalid [...] AM) Invalid Interpretation Code 1.005 - 1.030 [facility] [place] Auto [place] UA Spec Desc Clean Catch (09/06/22 11:19 AM) Normal [facility] [place]A Auto SS Urobilinogen Qn (U) [id number] {Georgina'U}/dL Normal 0.0 - 1.0 EU/dL [facility] UA Auto SS WBC Auto Ql (U) Negative (09/06/22 11:19 AM) Normal Negative [facility] UA Auto SS WBC LM.HPF (Urine sed) [#/Area] 0-5 /HPF Normal 0-5/HPF [facility] [place] Auto SS BLOOD BANKOrdered By: John Montague on 08-14-2022 ABO/Rh Interp Positive Invalid Interpretation Code [facility] BB Subsection CHEMISTRYOrdered By: SYSTEM SYSTEM on [...] PM) Normal Negative [facility] UA Auto SS [place].plasma/[place].R BC (Bld) [Mass ratio] 0-3 /HPF Normal [...] [facility] UA Auto SS Urobilinogen Qn (U) [id number] {Georgina'U}/dL Normal 0.0 - 1.0 EU/dL [facility] [place]A Auto SS WBC Auto Ql (U) Negative (08/14/22 7:29 PM) Normal Negative [facility] [place]A Auto SS WBC LM.HPF (Urine sed) [#/Area] 0-5 /HPF Normal 0-5/HPF [facility] [place] Auto SS CHLAMYDIA/GONOCOCCUS ALFREDO (SW AB/URINE/PAPon 07-15-2022 Chlamydia trachomatis, ALFREDO Negative Normal Negative [facility] Comment on above: Performed By: #### C T/NGNA #### [facility] [address] [address] [address] Cyril Hendricks Neisseria gonorrhoeae, ALFREDO Negative Normal Negative [facility] Comment on above: Performed By: #### C T/NGNA #### [facility] [address] [address] [address] Cyril Hendricks VAGINITIS/VAGINOSIS DNA PROB Maurice 07-13-2022 Krista species Negative Normal Negative [facility] Comment on above: Performed By: #### U MICRO, UACSIND #### [facility] [address] [address] [address] Cyril Hendricks Gardnerella vaginalis Positive Abnormal Negative [facility] Comment on above: Performed By: #### U MICRO, UACSIND #### [facility] [address] [address] [address] Cyril Hendricks Trichomonas vaginalis Negative Normal Negative [facility] Comment on above: Performed By: #### U MICRO, UACSIND #### [facility] [address] [address] [address] Cyril Hendricks COVID/FLU RT-PCRon SARS-CoV-2 (COVID-19) RNA ALFREDO+probe Ql (Unsp spec) Negative [employer] Other COVID/FLU RT-PCR Negative [employer] Other Quick Strepon 06-24-2022 S. pyogenes Org specific cx Ql (Throat) Negative [employer] Other Quick Strep [employer] Other CBC AUTO DIFFon 01-08-2022 BASO # 0.1 103/ul Normal 0.0-0.1 [facility] Comment on above: Performed By: #### C BC #### [facility] [address] [address] [address] Cyril Hendricks Basophils/100 WBC (Bld) 0.4 % Normal 0.2-2.0 [facility] Comment on above: Performed By: #### C BC #### [facility] [address] [address] [address] Cyril Hendricks EO # 0.1 103/ul Normal 0.0-0.7 [facility] Comment on above: Performed By: #### C BC #### [facility] [address] [place] [address] Dr. Cyril Hendricks Eosinophils/100 WBC (Bld) 0.9 % Normal 0.9-7.0 [facility] Comment on above: Performed By: #### C BC #### [facility] [address] [address] [address] Cyril Hendricks Erythrocyte distribution width (RBC) [Ratio] 12.3 % Normal 11.0-15.0 [facility] Comment on above: Performed By: #### C BC #### [facility] [address] [place] [address] Dr. Cyril Hendricks Hematocrit (Bld) [Volume fraction] 30.0 % Critically low 36.0-48.0 [facility] Comment on above: Performed By: #### C BC #### [facility] [address] [place] [address] Dr. Cyril Hendricks Hemoglobin (Bld) [Mass/Vol] 10.2 g/dL Critically low 12.0-16.0 [facility] Comment on above: Performed By: #### C BC #### [facility] [address] [place] [address] Dr. Cyril Hendricks IG # 0.05 10e3/ul Critically high 0.00-0.03 [facility] Comment on above: Performed By: #### C BC #### [facility] [address] [place] [address] Dr. Cyril Hendricks IG % 0.4 % Normal 0.0-0.5 [facility] Comment on above: Performed By: #### C BC #### [facility] [address] [place] [address] Dr. Cyril Hendricks LYMPH # 2.8 103/ul Normal 1.2-3.8 [facility] Comment on above: Performed By: #### C BC #### [facility] [address] [place] [address] Dr. Cyril Hendricks Lymphocytes/100 WBC (Bld) 19.7 % Critically low 20.5-60.0 [facility] Comment on above: Performed By: #### C BC #### [facility] [address] [place] [address] Dr. Cyril Hendricks MANUAL DIFF REQ NO Normal [facility] Comment on above: Performed By: #### C BC #### [facility] [address] [place] [address] Dr. Cyril Hendricks MCH (RBC) [Entitic mass] 30.6 pg Normal 26.7-34.0 [facility] Comment on above: Performed By: #### C BC #### [facility] [address] [place] [address] Dr. Cyril Hendricks MCHC (RBC) [Mass/Vol] 34.0 g/dL Normal 29.9-35.2 [facility] Comment on above: Performed By: #### C BC #### [facility] [address] [place] [address] Dr. Cyril Hendricks MCV (RBC) [Entitic vol] 90.1 fL Normal 81.0-99.0 [facility] Comment on above: Performed By: #### C BC #### [facility] [address] [place] [address] Dr. Cyril Hendricks MONO # 0.8 103/ul Normal 0.3-0.8 [facility] Comment on above: Performed By: #### C BC #### [facility] [address] [place] [address] Dr. Cyril Hendricks Monocytes/100 WBC (Bld) 5.9 % Normal 1.7-12.0 [facility] Comment on above: Performed By: #### C BC #### [facility] [address] [place] [address] Dr. Cyril Hendricks NEUT # 10.3 103/ul Critically high 1.4-6.5 [facility] Comment on above: Performed By: #### C BC #### [facility] [address] [place] [address] Dr. Cyril Hendricks Neutrophils/100 WBC (Bld) 72.7 % Normal 43.0-75.0 [facility] Comment on above: Performed By: #### C BC #### [facility] [address] [place] [address] Dr. Cyril Hendricks Platelet mean volume (Bld) [Entitic vol] 9.8 fL Normal 9.5-13.5 [facility] Comment on above: Performed By: #### C BC #### [facility] [address] [place] [address] Dr. Cyril Hendricks PLT 207 103/ul Normal 150-450 [facility] Comment on above: Performed By: #### C BC #### [facility] [address] [place] [address] Dr. Cyril Hendricks RBC 3.33 106/ul Critically low 4.20-5.40 [facility] Comment on above: Performed By: #### C BC #### [facility] [address] [place] [address] Dr. Cyril Hendricks WBC 14.2 103/ul Critically high 4.0-11.0 [facility] Comment on above: Performed By: #### C BC #### [facility] [address] [place] [address] Dr. Cyril Hendricks CBC AUTO DIFFon 01-07-2022 BASO # 0.1 103/ul Normal 0.0-0.1 [facility] Comment on above: Performed By: #### U MICRO, UACSIND #### [facility] [address] [place] [address] Dr. Cyril Hendricks Basophils/100 WBC (Bld) 0.5 % Normal 0.2-2.0 [facility] Comment on above: Performed By: #### U MICRO, UACSIND #### [facility] [address] [place] [address] Dr. Cyril Hendricks EO # 0.1 103/ul Normal 0.0-0.7 [facility] Comment on above: Performed By: #### U MICRO, UACSIND #### [facility] [address] [place] [address] Dr. Cyril Hendricks Eosinophils/100 WBC (Bld) 0.9 % Normal 0.9-7.0 [facility] Comment on above: Performed By: #### U MICRO, UACSIND #### [facility] [address] [place] [address] Dr. Cyril Hendricks Erythrocyte distribution width (RBC) [Ratio] 12.4 % Normal 11.0-15.0 [facility] Comment on above: Performed By: #### U MICRO, UACSIND #### [facility] [address] [place] [address] Dr. Cyril Hendricks Hematocrit (Bld) [Volume fraction] 34.3 % Critically low 36.0-48.0 [facility] Comment on above: Performed By: #### U MICRO, UACSIND #### [facility] [address] [place] [address] Dr. Cyril Hendricks Hemoglobin (Bld) [Mass/Vol] 11.6 g/dL Critically low 12.0-16.0 [facility] Comment on above: Performed By: #### U MICRO, UACSIND #### [facility] [address] [place] [address] Dr. Cyril Hendricks IG # 0.06 10e3/ul Critically high 0.00-0.03 [facility] Comment on above: Performed By: #### U MICRO, UACSIND #### [facility] [address] [place] [address] Dr. Cyril Hendricks IG % 0.4 % Normal 0.0-0.5 [facility] Comment on above: Performed By: #### U MICRO, UACSIND #### [facility] [address] [address] [address] Cyril Hendricks LYMPH # 3.1 103/ul Normal 1.2-3.8 [facility] Comment on above: Performed By: #### U MICRO, UACSIND #### [facility] [address] [place] [address] Dr. Cyril Hendricks Lymphocytes/100 WBC (Bld) 20.4 % Critically low 20.5-60.0 [facility] Comment on above: Performed By: #### U MICRO, UACSIND #### [facility] [address] [place] [address] Dr. Cyril Hendricks MANUAL DIFF REQ NO Normal [facility] Comment on above: Performed By: #### U MICRO, UACSIND #### [facility] [address] [place] [address] Dr. Cyril Hendricks MCH (RBC) [Entitic mass] 30.6 pg Normal 26.7-34.0 [facility] Comment on above: Performed By: #### U MICRO, UACSIND #### [facility] [address] [place] [address] Dr. Cyril Hendricks MCHC (RBC) [Mass/Vol] 33.8 g/dL Normal 29.9-35.2 [facility] Comment on above: Performed By: #### U MICRO, UACSIND #### [facility] [address] [place] [address] Dr. Cyril Hendricks MCV (RBC) [Entitic vol] 90.5 fL Normal 81.0-99.0 [facility] Comment on above: Performed By: #### U MICRO, UACSIND #### [facility] [address] [place] [address] Dr. Cyril Hendricks MONO # 0.9 103/ul Critically high 0.3-0.8 [facility] Comment on above: Performed By: #### U MICRO, UACSIND #### [facility] [address] [place] [address] Dr. Cyril Hendricks Monocytes/100 WBC (Bld) 6.2 % Normal 1.7-12.0 [facility] Comment on above: Performed By: #### U MICRO, UACSIND #### [facility] [address] [address] [address] Cyril Hendricks NEUT # 10.9 103/ul Critically high 1.4-6.5 [facility] Comment on above: Performed By: #### U MICRO, UACSIND #### [facility] [address] [address] [address] Cyril Hendricks Neutrophils/100 WBC (Bld) 71.6 % Normal 43.0-75.0 [facility] Comment on above: Performed By: #### U MICRO, UACSIND #### [facility] [address] [place] [address] Dr. Cyril Hendricks Platelet mean volume (Bld) [Entitic vol] 11.1 fL Normal 9.5-13.5 [facility] Comment on above: Performed By: #### U MICRO, UACSIND #### [facility] [address] [place] [address] Dr. Cyril Hendricks PLT 240 103/ul Normal 150-450 [facility] Comment on above: Performed By: #### U MICRO, UACSIND #### [facility] [address] [place] [address] Dr. Cyril Hendricks RBC 3.79 106/ul Critically low 4.20-5.40 [facility] Comment on above: Performed By: #### U MICRO, UACSIND #### [facility] [address] [place] [address] Dr. Cyril Hendricks WBC 15.3 103/ul Critically high 4.0-11.0 [facility] Comment on above: Performed By: #### U MICRO, UACSIND #### [facility] [address] [place] [address] Dr. Cyril Hendricks [facility]on SARS-CoV-2 (COVID-19) RNA ALFREDO+probe Ql (Unsp spec) Not detected Normal NOT DETECTED [facility] Comment on above: Result Comment: When diagnostic [...] for this test is supported by the [place] of Health and Human Service's declaration that [...] used). Performed By: #### H CVPCRR #### [facility] [address] [place] [address] Dr. Cyril Hendricks DRUG SCREEN RAPID (URINE)on 01-07-2022 AMP Negative Normal NEGATIVE [facility] Comment on above: Performed By: #### U MICRO, UACSIND #### [facility] [address] [place] [address] Dr. Cyril Hendricks BAR Negative Normal NEGATIVE [facility] Comment on above: Performed By: #### U MICRO, UACSIND #### [facility] [address] [place] [address] Dr. Cyril Hendricks BUP Negative Normal NEGATIVE [facility] Comment on above: Performed By: #### U MICRO, UACSIND #### [facility] [address] [place] [address] Dr. Cyril Hendricks BZO Negative Normal NEGATIVE [facility] Comment on above: Performed By: #### U MICRO, UACSIND #### [facility] [address] [place] [address] Dr. Cyril Hendricks DARIN Negative Normal NEGATIVE [facility] Comment on above: Performed By: #### U MICRO, UACSIND #### [facility] [address] [place] [address] Dr. Cyril Hendricks CUT-OFFS SEE BELOW Normal [facility] Comment on above: Result Comment: AMP [...] Performed By: #### U MICRO, UACSIND #### [facility] [address] [place] [address] Dr. Cyril Hendricks DRUG CUT HEADER DRUG CLASS TEST SYSTEM CUT-OFF CONCENTRATIONS ARE FOLLOWS: Normal [facility] Comment on above: Performed By: #### U MICRO, UACSIND #### [facility] [address] [place] [address] Dr. Cyril Hendricks mAMP Negative Normal NEGATIVE [facility] Comment on above: Performed By: #### U MICRO, UACSIND #### [facility] [address] [place] [address] Dr. Cyril Hendricks MTD Negative Normal NEGATIVE [facility] Comment on above: Performed By: #### U MICRO, UACSIND #### [facility] [address] [address] [address] Cyril Hendricks OPI Negative Normal NEGATIVE [facility] Comment on above: Performed By: #### U MICRO, UACSIND #### [facility] [address] [address] [address] Cyrli Hendricks OXY Negative Normal NEGATIVE [facility] Comment on above: Performed By: #### U MICRO, UACSIND #### [facility] [address] [address] [address] Cyril Hendricks PCP Negative Normal NEGATIVE [facility] Comment on above: Performed By: #### U MICRO, UACSIND #### [facility] [address] [place] [address] Dr. Cyril Hendricks PPX Negative Normal NEGATIVE [facility] Comment on above: Performed By: #### U MICRO, UACSIND #### [facility] [address] [place] [address] Dr. Cyril Hendricks TCA Negative Normal NEGATIVE [facility] Comment on above: Performed By: #### U MICRO, UACSIND #### [facility] [address] [place] [address] Dr. Cyril Hendricks THC Negative Normal NEGATIVE [facility] Comment on above: Performed By: #### U MICRO, UACSIND #### [facility] [address] [place] [address] Dr. Cyril Hendricks TYPE AND SCREENon 01-07-2022 TYPE AND SCREEN Negative Normal [facility] Comment on above: Performed By: #### H CVPCRR #### [facility] [address] [place] [address] Dr. Cyril Hendricks CULTURE URINEon 12-29-2021 CULTURE URINE Culture Observations: NO GROWTH. Normal [facility] Comment on above: Performed By: #### U RCX #### [facility] [address] [place] [address] Dr. Cyril Hendricks UA (CLEAN/CATCH) GRANTS ANALYST/MICRO I F IND.on 12-29-2021 Bilirubin Ql (U) Negative Normal NEGATIVE [facility] Comment on above: Performed By: #### U MICRO, UACSIND #### [facility] [address] [place] [address] Dr. Cyril Hendricks Clarity (U) SL CLOUDY Abnormal CLEAR [facility] Comment on above: Performed By: #### U MICRO, UACSIND #### [facility] [address] [place] [address] Dr. Cyril Hendricks Color (U) LT. YELLOW Normal YELLOW [facility] Comment on above: Performed By: #### U MICRO, UACSIND #### [facility] [address] [place] [address] Dr. Cyril Hendricks Glucose Ql (U) Negative Normal NEGATIVE [facility] Comment on above: Performed By: #### U MICRO, UACSIND #### [facility] [address] [address] [address] Cyril Hendricks Hemoglobin Ql (U) Negative Normal NEGATIVE [facility] Comment on above: Performed By: #### U MICRO, UACSIND #### [facility] [address] [address] [address] Cyril Hendricks Ketones Ql (U) Negative Normal NEGATIVE [facility] Comment on above: Performed By: #### U MICRO, UACSIND #### [facility] [address] [address] [address] Cyril Hendricks LEUKOCYTES LARGE Abnormal NEGATIVE [facility] Comment on above: Performed By: #### U MICRO, UACSIND #### [facility] [address] [place] [address] Dr. Cyril Hendricks Nitrite Ql (U) Negative Normal NEGATIVE [facility] Comment on above: Performed By: #### U MICRO, UACSIND #### [facility] [address] [place] [address] Dr. Cyril Hendricks pH (U) 6.5 [pH] Normal 5-9 [facility] Comment on above: Performed By: #### U MICRO, UACSIND #### [facility] [address] [place] [address] Dr. Cyril Hendricks SPEC GRAVITY 1.010 Normal 1.005-<=1.02 5 [facility] Comment on above: Performed By: #### U MICRO, UACSIND #### [facility] [address] [place] [address] Dr. Cyril Hendricks UA PROTEIN Negative Normal NEGATIVE/ TRACE [facility] Comment on above: Performed By: #### U MICRO, UACSIND #### [facility] [address] [place] [address] Dr. Cyril Hendricks UR MICRO IND INDICATED Normal [facility] Comment on above: Performed By: #### U MICRO, UACSIND #### [facility] [address] [place] [address] Dr. Cyril Hendricks Urobilinogen Qn (U) 0.2 {Georgina'U}/dL Normal 0.2 - 1. 0 [facility] Comment on above: Performed By: #### U MICRO, UACSIND #### [facility] [address] [place] [address] Dr. Cyril Hendricks URINE MICROSCOPIC ONLYon BACTERIA SMALL Abnormal NONE SEEN The [facility] Comment on above: Performed By: #### U MICRO, UACSIND #### [facility] [address] [address] [address] Cyril Hendricks Bacteria identified Cx Nom (U) INDICATED Normal [facility] Comment on above: Performed By: #### U MICRO, UACSIND #### [facility] [address] [place] [address] Dr. Cyril Hendricks CAST NONE SEEN Normal NONE SEEN [facility] Comment on above: Performed By: #### U MICRO, UACSIND #### [facility] [address] [place] [address] Dr. Cyril Hendricks Crystals LM Nom (Urine sed) NONE SEEN Normal NONE SEEN [facility] Comment on above: Performed By: #### U MICRO, UACSIND #### [facility] [address] [place] [address] Dr. Cyril Hendricks Epithelial cells LM Ql (Urine sed) MANY Abnormal NONE SEEN /RARE [facility] Comment on above: Performed By: #### U MICRO, UACSIND #### [facility] [address] [place] [address] Dr. Cyril Hendricks MUCOUS NONE SEEN Normal NONE SEEN The [facility] Comment on above: Performed By: #### U MICRO, UACSIND #### [facility] [address] [place] [address] Dr. Cyril Hendricks RBC 0-2 Normal 0-2 [facility] Comment on above: Performed By: #### U MICRO, UACSIND #### [facility] [address] [place] [address] Dr. Cyril Hendricks WBC 10-20 Abnormal NONE SEEN The [facility] Comment on above: Performed By: #### U MICRO, UACSIND #### [facility] [address] [place], [place] [address] Dr. Cyril Hendricks GROUP B STREP CULTUREon 12-07 S. agalactiae Ag Ql (Unsp spec) Culture Observations: NEGATIVE FOR GROUP B STREPTOCOCCUS. Normal [facility] Comment on above: Performed By: #### G BSCX #### [facility] [address] [place], [place] [address] Dr. Cyril Hendricks SSAon 12-13-2021 SSA <0.3 Normal <7.0 [facility] Comment on above: Result Comment: Reference Range: <7.0 Negative 7.0-10.0 Equivocal >10.0 Positive Performed By: #### S SARO, TSH, FT4, SSBLA #### [facility] [address] [place] [id number] [employer] Supervisor: Homer Hoffman MD SSBon 12-13-2021 SSB <0.3 Normal <7.0 [facility] Comment on above: Result Comment: Reference Range: <7.0 Negative 7.0-10.0 Equivocal >10.0 Positive Performed By: #### S SARO, TSH, FT4, SSBLA #### [facility] [address] [place] [id number] [employer] Supervisor: Homer Hoffman MD No Panel Informationon 12-12 [facility] T4, Freeon 12-12-2021 Thyroxine, Free 0.98 ng/dL 0.93 - 1.70 ng/dL [facility] TSHon 12-12-2021 TSH Qn 4.35 m[IU]/L [facility] Thyroid Stim. Horm.on 2021 Thyroid Stim. Horm. 4.35 uIU/mL Normal 0.30-5.00 [facility] Comment on above: Performed By: #### S SARO, TSH, FT4, SSBLA #### [facility] [address] [place] [id number] [employer] Supervisor: Homer Hoffman MD Thyroxine, Freeon 12-12-2021 Thyroxine, Free 0.98 ng/dL Normal 0.93-1.70 [facility] Comment on above: Performed By: #### S SARO, TSH, FT4, SSBLA #### [facility] [address] [place] [address] [employer] Supervisor: Homer Hoffman MD US PREG BIOPHY W [...] by: SOFIA KABA Date: 2021-11-27 13:55 Normal [facility] COVID + FLU Quick Testingon 11-13-2021 SARS-CoV-2 (COVID-19) RNA ALFREDO+probe Ql (Unsp spec) Negative [facility] [employer] Other COVID + FLU Quick Testing Negative [facility] [employer] Other GLUCOSE - 1HRon 10-23-2021 Glucose [Mass/Vol] 83 mg/dL Normal 74-106 [facility] Comment on above: Performed By: #### G LU1HR #### [facility] [address] [place] [address] Dr. Cyril Hendricks CHLAMYDIA/GONOCOCCUS ALFREDO ( AB/URINE/PAPon 10-05-2021 Chlamydia trachomatis, ALFREDO Negative Normal Negative [facility] Comment on above: Performed By: #### C T/NGNA #### [facility] [address] [place] [address] Dr. Cyril Hendricks Neisseria gonorrhoeae, ALFREDO Negative Normal Negative [facility] Comment on above: Performed By: #### C T/NGNA #### [facility] [address] [place] [address] Dr. Cyril Hendricks VAGINITIS/VAGINOSIS DNA PROB Maurice 10-04-2021 Krista species Positive Abnormal Negative [facility] Comment on above: Performed By: #### H CVPCRR #### [facility] [address] [place] [address] Dr. Cyril Hendricks Gardnerella vaginalis Negative Normal Negative [facility] Comment on above: Performed By: #### H CVPCRR #### [facility] [address] [place] [address] Dr. Cyril Hendricks Trichomonas vaginalis Negative Normal Negative [facility] Comment on above: Performed By: #### H CVPCRR #### [facility] [address] [place] [address] Dr. Cyril Hendricks HEP B SURFACE ANTIGEN SCREEN on 10-03-2021 HBsAg Screen Negative Normal Negative [facility] Comment on above: Performed By: #### H CVPCRR #### [facility] [address] [place] [address] Dr. Cyril Hendricks HEPATITIS C VIRUS AB W/ REFL EX QUANTon 10-03-2021 HCV AB <0.1 Normal 0.0-0.9 [facility] Comment on above: Performed By: #### H CVPCRR #### [facility] [address] [place] [address] Dr. Cyril Hendricks Interpretation: Comment Normal [facility] Comment on above: Result Comment: Nega tive Not infected with HCV, unless recent infection is suspected or other evidence exists to indicate HCV infection. Performed By: #### H CVPCRR #### [facility] [address] [place] [address] Dr. Cyril Hendricks HIV 1 AND 2 WITH REFLEXon HIV Screen 4th Generation wRfx Non-Reactive Normal Non Reactive [facility] Comment on above: Result Comment: HIV Negative HIV-1/HIV-2 antibodies and HIV-1 p24 antigen were NOT detected. There is no laboratory evidence of HIV infection. Performed By: #### H IV12 #### [facility] [address] [place] [address] Dr. Cyril Hendricks RPR QUANTon 10-03-2021 Rapid Plasma Reagin, Quant Non-Reactive Normal NonRea<1:1 [facility] Comment on above: Result Comment: Juliette brito Note: This test does not meet current guidelines for screening and diagnosis of syphilis. This test is intended for following treatment response in patients being treated for syphilis infection. To screen for syphilis infection, a reflex cascade that includes both RPR and a treponema-specific assay should be utilized, such as Treponema pallidum (Syphilis) Screening Patten (337696) or Rapid Plasma Reagin (RPR) Test With Reflex to Quantitative RPR and Confirmatory Treponema pallidum Antibodies (262548). Performed By: #### U MICRO, UACSIND #### [facility] [address] [place] [address] Dr. Cyril Hendricks RUBELLA AB IGGon 10-03-2021 Rubella Antibodies, IgG <0.90 Critically low Immune > 0.99 [facility] Comment on above: Result Comment: Non- immune <0.90 Equivocal 0.90 - 0.99 Immune >0.99 Performed By: #### U MICRO, UACSIND #### [facility] [address] [place] [address] Dr. Cyril Hendricks CBC AUTO DIFFon 10-02-2021 BASO # 0.1 103/ul Normal 0.0-0.1 [facility] Comment on above: Performed By: #### U MICRO, UACSIND #### [facility] [address] [place] [address] Dr. Cyril Hendricks Basophils/100 WBC (Bld) 0.4 % Normal 0.2-2.0 [facility] Comment on above: Performed By: #### U MICRO, UACSIND #### [facility] [address] [place] [address] Dr. Cyril Hendricks EO # 0.1 103/ul Normal 0.0-0.7 [facility] Comment on above: Performed By: #### U MICRO, UACSIND #### [facility] [address] [place] [address] Dr. Cyril Hendricks Eosinophils/100 WBC (Bld) 1.1 % Normal 0.9-7.0 [facility] Comment on above: Performed By: #### U MICRO, UACSIND #### [facility] [address] [place] [address] Dr. Cyril Hendricks Erythrocyte distribution width (RBC) [Ratio] 13.5 % Normal 11.0-15.0 [facility] Comment on above: Performed By: #### U MICRO, UACSIND #### [facility] [address] [place] [address] Dr. Cyril Hendricks Hematocrit (Bld) [Volume fraction] 34.5 % Critically low 36.0-48.0 [facility] Comment on above: Performed By: #### U MICRO, UACSIND #### [facility] [address] [place] [address] Dr. Cyril Hendricks Hemoglobin (Bld) [Mass/Vol] 12.0 g/dL Normal 12.0-16.0 [facility] Comment on above: Performed By: #### U MICRO, UACSIND #### [facility] [address] [place] [address] Dr. Cyril Hendricks IG # 0.04 10e3/ul Critically high 0.00-0.03 [facility] Comment on above: Performed By: #### U MICRO, UACSIND #### [facility] [address] [place] [address] Dr. Cyril Hendricks IG % 0.3 % Normal 0.0-0.5 [facility] Comment on above: Performed By: #### U MICRO, UACSIND #### [facility] [address] [place] [address] Dr. Cyril Hendricks LYMPH # 2.6 103/ul Normal 1.2-3.8 [facility] Comment on above: Performed By: #### U MICRO, UACSIND #### [facility] [address] [place] [address] Dr. Cyril Hendricks Lymphocytes/100 WBC (Bld) 21.3 % Normal 20.5-60.0 [facility] Comment on above: Performed By: #### U MICRO, UACSIND #### [facility] [address] [address] [address] Cyril Hendricks MANUAL DIFF REQ NO Normal [facility] Comment on above: Performed By: #### U MICRO, UACSIND #### [facility] [address] [address] [address] Cyril Hendricks MCH (RBC) [Entitic mass] 32.5 pg Normal 26.7-34.0 [facility] Comment on above: Performed By: #### U MICRO, UACSIND #### [facility] [address] [place] [address] Dr. Cyril Hendricks MCHC (RBC) [Mass/Vol] 34.8 g/dL Normal 29.9-35.2 [facility] Comment on above: Performed By: #### U MICRO, UACSIND #### [facility] [address] [place] [address] Dr. Cyril Hendricks MCV (RBC) [Entitic vol] 93.5 fL Normal 81.0-99.0 [facility] Comment on above: Performed By: #### U MICRO, UACSIND #### [facility] [address] [place] [address] Dr. Cyril Hendricks MONO # 0.8 103/ul Normal 0.3-0.8 [facility] Comment on above: Performed By: #### U MICRO, UACSIND #### [facility] [address] [place] [address] Dr. Cyril Hendricks Monocytes/100 WBC (Bld) 6.2 % Normal 1.7-12.0 [facility] Comment on above: Performed By: #### U MICRO, UACSIND #### [facility] [address] [place] [address] Dr. Cyril Hendricks NEUT # 8.6 103/ul Critically high 1.4-6.5 [facility] Comment on above: Performed By: #### U MICRO, UACSIND #### [facility] [address] [place] [address] Dr. Cyril Hendricks Neutrophils/100 WBC (Bld) 70.7 % Normal 43.0-75.0 [facility] Comment on above: Performed By: #### U MICRO, UACSIND #### [facility] [address] [address] [address] Cyril Hendricks Platelet mean volume (Bld) [Entitic vol] 9.1 fL Critically low 9.5-13.5 [facility] Comment on above: Performed By: #### U MICRO, UACSIND #### [facility] [address] [address] [address] Cyril Hendricks PLT 257 103/ul Normal 150-450 [facility] Comment on above: Performed By: #### U MICRO, UACSIND #### [facility] [address] [address] [address] Cyril Hendricks RBC 3.69 106/ul Critically low 4.20-5.40 [facility] Comment on above: Performed By: #### U MICRO, UACSIND #### [facility] [address] [address] [address] Cyril Hendricks WBC 12.2 103/ul Critically high 4.0-11.0 [facility] Comment on above: Performed By: #### U MICRO, UACSIND #### [facility] [address] [place] [address] Dr. Cyril Hendricks CULTURE URINEon 10-02-2021 CULTURE URINE Culture Observations: MODERATE GROWTH OF MIXED GENITAL DRAGAN. NO POTENTIAL PATHOGENS SEEN. Normal [facility] Comment on above: Performed By: #### H CVPCRR #### [facility] [address] [place] [address] Dr. Cyril Hendricks GLYCOHEMOGLOBIN A1Con 2021 ADA RECOMMENDATION SEE BELOW Normal [facility] Comment on above: Result Comment: ADA RECOMMENDED LIMIT 4.0 - 6.0 ADA THERAPEUTIC TARGET < 7.0 ACTION SUGGESTED > 7.0 Performed By: #### H CVPCRR #### [facility] [address] [place] [address] Dr. Cyril Hendricks Glucose [Mass/Vol] 80 mg/dL Normal [facility] Comment on above: Performed By: #### H CVPCRR #### [facility] [address] [place], [place] [address] Dr. Cyril Hendricks HbA1c (Bld) [Mass fraction] 4.4 % Critically low 4.5-6.2 [facility] Comment on above: Performed By: #### H CVPCRR #### [facility] [address] [place], [place] [address] Dr. Cyril Hendricks TYPE AND SCREENon 10-02-2021 TYPE AND SCREEN Negative Normal [facility] Comment on above: Performed By: #### H CVPCRR #### [facility] [address] [place], [place] [address] Dr. Cyril Hendricks US PREG PLACENTAon 2 [...] SOFIA KABA Date: 2021-10-02 10:47 Normal The [facility] US PREG ANATOMY SINGLEon US PREG ANATOMY [...] (44% by ultrasound, 29% by expected) FL/AC: 0.171745 FL/BPD: 0.045650 HC/AC: 1.494502 GESTATIONAL AGE: Age by EDC: 21 weeks, 3 days NOY by EDC: 01/12/2022 Age by current US: 21 weeks, 1 day NOY by current US: 01/14/2022 IMPRESSION: 1. Single live intrauterine with growth detailed above. 2. Posterior, low-lying placenta. Electronically authenticated by: MARS FRANKEL Date: 2021-09-04 16:30 Normal [facility] Vital Signs Date Time Vital Sign Value Performing Clinician Facility 02-03-2024 09:23-0400 Body temperature 97.88 [degF] Siva Schulte [facility] 02-03-2024 09:23-0400 Diastolic blood pressure 70 mm[Hg] Siva Schulte [facility] 02-03-2024 09:23-0400 Heart rate 85 /min Siva Schulte [facility] 02-03-2024 09:23-0400 Respiratory rate 18 /min Siva Schulte [facility] 02-03-2024 09:23-0400 SaO2% (BldA) [Mass fraction] 99 % Siva Schulte [facility] 02-03-2024 09:23-0400 Systolic blood pressure 106 mm[Hg] Siva Schulte [facility] 09-23-2023 09:16-0400 Body temperature 98.42 [degF] Wil Chandra [facility] 09-23-2023 09:16-0400 Diastolic blood pressure 68 mm[Hg] Wil Chandra [facility] 09-23-2023 09:16-0400 Heart rate 82 /min Wil Chandra [facility] 09-23-2023 09:16-0400 Respiratory rate 18 /min Wil Chandra [facility] 09-23-2023 09:16-0400 SaO2% (BldA) [Mass fraction] 97 % Wil Chandra [facility] 09-23-2023 09:16-0400 Systolic blood pressure 98 mm[Hg] Wil Chandra [facility] 08-27-2023 12:24-0400 Diastolic blood pressure 61 mm[Hg] [facility] 08-27-2023 12:24-0400 Heart rate 77 /min [facility] 08-27-2023 12:24-0400 Mean blood pressure 72 mm[Hg] [facility] 08-27-2023 12:24-0400 Respiratory rate 16 /min [facility] 08-27-2023 12:24-0400 SaO2% (BldA) [Mass fraction] 97 % [facility] 08-27-2023 12:24-0400 Systolic blood pressure 93 mm[Hg] [facility] 08-27-2023 11:30-0400 Diastolic blood pressure 69 mm[Hg] [facility] 08-27-2023 11:30-0400 Heart rate 74 /min [facility] 08-27-2023 11:30-0400 Mean blood pressure 82 mm[Hg] [facility] 08-27-2023 11:30-0400 Respiratory rate 16 /min [facility] 08-27-2023 11:30-0400 SaO2% (BldA) [Mass fraction] 99 % [facility] 08-27-2023 11:30-0400 Systolic blood pressure 107 mm[Hg] [facility] 08-27-2023 10:30-0400 Diastolic blood pressure 62 mm[Hg] [facility] 08-27-2023 10:30-0400 Heart rate 91 /min [facility] 08-27-2023 10:30-0400 Mean blood pressure 77 mm[Hg] [facility] 08-27-2023 10:30-0400 Respiratory rate 18 /min [facility] 08-27-2023 10:30-0400 SaO2% (BldA) [Mass fraction] 100 % [facility] 08-27-2023 10:30-0400 Systolic blood pressure 107 mm[Hg] [facility] 08-27-2023 09:41-0400 Body temperature 98.6 [degF] [facility] 08-27-2023 09:41-0400 Heart rate 80 /min [facility] 01-04-2023 00:03-0400 Body temperature 98.78 [degF] Siva Schulte [facility] 01-04-2023 00:03-0400 Diastolic blood pressure 54 mm[Hg] Siva Schulte [facility] 01-04-2023 00:03-0400 Heart rate 97 /min Siva Schulte [facility] 01-04-2023 00:03-0400 Mean blood pressure 70 mm[Hg] Siva Schulte [facility] 01-04-2023 00:03-0400 Respiratory rate 18 /min Siva Schulte [facility] 01-04-2023 00:03-0400 SaO2% (BldA) [Mass fraction] 94 % Siva Schulte [facility] 01-04-2023 00:03-0400 Systolic blood pressure 102 mm[Hg] Siva Schulte [facility] 01-03-2023 23:00-0400 Body temperature 100.04 [degF] Siva Eris [facility] 01-03-2023 23:00-0400 Diastolic blood pressure 62 mm[Hg] Siva Eris [facility] 01-03-2023 23:00-0400 Heart rate 100 /min Siva Eris [facility] 01-03-2023 23:00-0400 Mean blood pressure 75 mm[Hg] Siva Eris [facility] 01-03-2023 23:00-0400 Systolic blood pressure 100 mm[Hg] Siva Schulte [facility] 01-03-2023 22:42-0400 Body temperature 100.76 [degF] Siva Schulte [facility] 01-03-2023 22:42-0400 Diastolic blood pressure 59 mm[Hg] Siva Eris [facility] 01-03-2023 22:42-0400 Heart rate 105 /min Siva Schulte [facility] 01-03-2023 22:42-0400 Respiratory rate 20 /min Siva Schulte [facility] 01-03-2023 22:42-0400 SaO2% (BldA) [Mass fraction] 99 % Siva Schulte [facility] 01-03-2023 22:42-0400 Systolic blood pressure 96 mm[Hg] Siva Schulte [facility] 10-02-2022 21:29-0400 Diastolic blood pressure 72 mm[Hg] [facility] 10-02-2022 21:29-0400 Heart rate 94 /min PHYSICIAN NO [facility] 10-02-2022 21:29-0400 Respiratory rate 18 /min PHYSICIAN NO [facility] 10-02-2022 21:29-0400 SaO2% (BldA) [Mass fraction] 98 % PHYSICIAN NO [facility] 10-02-2022 21:29-0400 Systolic blood pressure 141 mm[Hg] PHYSICIAN NO [facility] 10-02-2022 17:03-0400 Body height 170.18 cm PHYSICIAN NO [facility] 10-02-2022 17:03-0400 Body temperature 98.3 [degF] PHYSICIAN NO [facility] 10-02-2022 17:03-0400 Body weight 76.4 kg PHYSICIAN NO [facility] 09-25-2022 13:25-0400 Body height 170.18 cm Viet Yuri Other [employer] Other 09-25-2022 13:25-0400 Body mass index (BMI) [Ratio] 26.62 kg/m2 Viet Welch Other [employer] Other 09-25-2022 13:25-0400 Body temperature 98.2 [degF] Viet Welch Other [employer] Other 09-25-2022 13:25-0400 Body weight 77.11 kg Viet Welch Other [employer] Other 09-25-2022 13:25-0400 Diastolic blood pressure 68 mm[Hg] Viet Welch Other [employer] Other 09-25-2022 13:25-0400 Respiratory rate 18 /min Viet Welch Other [employer] Other 09-25-2022 13:25-0400 SaO2% (BldA) [Mass fraction] 98 % Viet Welch Other [facility] [employer] Other 09-25-2022 13:25-0400 Systolic blood pressure 107 mm[Hg] Viet Welch Other [facility] [employer] Other 09-06-2022 13:54-0400 Diastolic blood pressure 72 mm[Hg] Wil Corazon [facility] 09-06-2022 13:54-0400 Heart rate 60 /min Wil Corazon [facility] 09-06-2022 13:54-0400 Respiratory rate 16 /min Wil Corazon [facility] 09-06-2022 13:54-0400 SaO2% (BldA) [Mass fraction] 100 % Wil Corazon [facility] 09-06-2022 13:54-0400 Systolic blood pressure 103 mm[Hg] Wil Corazon [facility] 09-06-2022 11:41-0400 Diastolic blood pressure 65 mm[Hg] Wil Corazon [facility] 09-06-2022 11:41-0400 Heart rate 58 /min Wil Corazon [facility] 09-06-2022 11:41-0400 Mean blood pressure 77 mm[Hg] Wil Corazon [facility] 09-06-2022 11:41-0400 Respiratory rate 16 /min Wil Corazon [facility] 09-06-2022 11:41-0400 SaO2% (BldA) [Mass fraction] 100 % Wil Corazon [facility] 09-06-2022 11:41-0400 Systolic blood pressure 102 mm[Hg] Wil Corazon [facility] 09-06-2022 10:42-0400 Body temperature 98.24 [degF] Wil Chandra [facility] 09-06-2022 10:42-0400 bodymassindex 1.17 Wil Chandra [facility] Comment on above: Result Comment: ^~:!ZScore [facility] 09-06-2022 10:42-0400 Diastolic blood pressure 71 mm[Hg] Wil Chandra [facility] 09-06-2022 10:42-0400 Heart rate 73 /min Wil Chandra [facility] 09-06-2022 10:42-0400 Height/Length Percentile 84.89 Wil Chandra [facility] Comment on above: Result Comment: ^~:!Percentile [facility] 09-06-2022 10:42-0400 Height/Length Z-Score 1.03 Wil Chandra [facility] Comment on above: Result Comment: ^~:!ZScore [facility] 09-06-2022 10:42-0400 Respiratory rate 16 /min Wil Chandra [facility] 09-06-2022 10:42-0400 SaO2% (BldA) [Mass fraction] 98 % Wil Chandra [facility] 09-06-2022 10:42-0400 Systolic blood pressure 111 mm[Hg] Wil Chandra [facility] 09-06-2022 10:42-0400 weight 1.47 Wil Jolyle [facility] Comment on above: Result Comment: ^~:!ZScore [facility] 09-06-2022 10:42-0400 Weight Percentile 92.90 % Wil Chandra [facility] Comment on above: Result Comment: ^~:!Percentile Source -[facility] 08-14-2022 21:30-0500 Diastolic blood pressure 79 mm[Hg] Bob Llanos [facility] 08-14-2022 21:30-0500 Heart rate 87 /min Bob Llanos [facility] 08-14-2022 21:30-0500 Mean blood pressure 93 mm[Hg] Bob Llanos [facility] 08-14-2022 21:30-0500 Nursing Progress Note Reason Other: pt to US via stretcher at this time. Bob Llanos [facility] 08-14-2022 21:30-0500 Respiratory rate 16 /min Bob Llanos [facility] 08-14-2022 21:30-0500 SaO2% (BldA) [Mass fraction] 100 % Bob Llanos [facility] 08-14-2022 21:30-0500 Systolic blood pressure 120 mm[Hg] Bob Llanos [facility] 08-14-2022 19:20-0500 Body temperature 98.96 [degF] Bob Llanos [facility] 08-14-2022 19:20-0500 bodymassindex 1.17 Bob Llanos [facility] Comment on above: Result Comment: ^~:!ZScore Source -[facility] 08-14-2022 19:20-0500 Diastolic blood pressure 61 mm[Hg] Bob Llanos [facility] 08-14-2022 19:20-0500 Heart rate 98 /min Bob Llanos [facility] 08-14-2022 19:20-0500 Height/Length Percentile 84.91 Bob Llanos [facility] Comment on above: Result Comment: ^~:!Percentile Source -[facility] 08-14-2022 19:20-0500 Height/Length Z-Score 1.03 Bob Llanos [facility] Comment on above: Result Comment: ^~:!ZScore [facility] 08-14-2022 19:20-0500 Respiratory rate 16 /min Bob Llanos [facility] 08-14-2022 19:20-0500 SaO2% (BldA) [Mass fraction] 99 % Bob Llanos [facility] 08-14-2022 19:20-0500 Systolic blood pressure 114 mm[Hg] Bob Llanos [facility] 08-14-2022 19:20-0500 weight 1.47 Bob Llanos [facility] Comment on above: Result Comment: ^~:!ZScore [facility] 08-14-2022 19:20-0500 Weight Percentile 92.94 % Bob Llanos [facility] Comment on above: Result Comment: ^~:!Percentile Source - [employer] 06-24-2022 13:30-0500 Body height 170.18 cm Viet Welch Other [employer] Other 06-24-2022 13:30-0500 Body mass index (BMI) [Ratio] 26.62 kg/m2 Viet Welch Other [employer] Other 06-24-2022 13:30-0500 Body temperature 97.8 [degF] Viet Welch Other [employer] Other 06-24-2022 13:30-0500 Body weight 77.11 kg Viet Welch Other [employer] Other 06-24-2022 13:30-0500 Diastolic blood pressure 63 mm[Hg] Viet Welch Other [employer] Other 06-24-2022 13:30-0500 Respiratory rate 18 /min Viet Welch Other [employer] Other 06-24-2022 13:30-0500 SaO2% (BldA) [Mass fraction] 98 % Viet Welch Other [employer] Other 06-24-2022 13:30-0500 Systolic blood pressure 97 mm[Hg] Viet Welch Other [employer] Other 11-13-2021 14:05-0400 Body height 170.18 cm Michael Oneil Other [employer] Other 11-13-2021 14:05-0400 Body mass index (BMI) [Ratio] 26.62 kg/m2 Michael Oneil Other [employer] Other 11-13-2021 14:05-0400 Body temperature 98.4 [degF] Michael Oneil Other [employer] Other 11-13-2021 14:05-0400 Body weight 77.11 kg Michael Oneil Other [employer] Other 11-13-2021 14:05-0400 Respiratory rate 18 /min Michael Oneil Other [employer] Other 11-13-2021 14:05-0400 SaO2% (BldA) [Mass fraction] 98 % Michael Oneil Other [employer] Other 11-06-2021 15:45-0400 Body height Kendra Eduar Other [employer] Other 11-06-2021 15:45-0400 Body mass index (BMI) [Ratio] 26.62 kg/m2 Kendra Witt Other [employer] Other 11-06-2021 15:45-0400 Body weight 77.11 kg Kendra Witt Other [employer] Other 11-06-2021 15:45-0400 Respiratory rate 20 /min Kendra Witt Other [employer] Other 11-06-2021 15:45-0400 SaO2% (BldA) [Mass fraction] 98 % Kendra Witt Other [employer] Other Encounters Encounter Date Encounter Type Care Provider Facility Start: 02-16-2024 End: 02-16-2024 ambulatory GONSALO CORRAL Not Available Start: 02-03-2024 End: 02-03-2024 Emergency department patient visit Siva Schulte [facility] Start: 01-26-2024 End: 01-26-2024 ambulatory JUVENAL MIRI Not Available Start: 12-29-2023 End: 12-29-2023 ambulatory GONSALO ELLIS Not Available Start: 12-22-2023 End: 12-22-2023 ambulatory JUVENAL R [facility] Start: 12-01-2023 End: 12-01-2023 ambulatory JUVENAL MIRI Not Available Start: 11-10-2023 End: 11-10-2023 ambulatory JUVENAL R [facility] Start: 10-27-2023 End: 10-27-2023 ambulatory GONSALO ELLIS Not Available Start: 09-29-2023 End: 09-29-2023 ambulatory JUVENAL MIRI Not Available Start: 09-23-2023 End: 09-23-2023 Emergency department patient visit Wil Jollye [facility] Start: 09-04-2023 End: 09-04-2023 ambulatory JUVENAL MIRI Not Available Start: 08-27-2023 End: 08-27-2023 Emergency department patient visit Emily Harper [facility] Start: 08-18-2023 End: 08-18-2023 ambulatory SELAM HUNTER [place] Start: 01-03-2023 End: 01-04-2023 Emergency department patient visit Siva Schulte [facility] Start: 12-12-2022 End: 12-12-2022 ambulatory Kenneth Lina Other [employer] Other Start: 12-12-2022 Telephone encounter Kenneth Lina [facility] Start: 10-02-2022 End: 10-02-2022 Emergency department patient visit Jose Silverman Facility:[facility] Start: 10-02-2022 End: 10-02-2022 Emergency department patient visit PHYSICIAN SJ LERNER [facility] Work Phone: Start: 09-25-2022 End: 09-25-2022 ambulatory Viet [place] Other [employer] Other Start: 09-25-2022 Office outpatient visit 15 minutes Viet Welch [facility] Start: 09-06-2022 End: 09-06-2022 Emergency department patient visit Wil Jollye [facility] Start: 08-14-2022 End: 08-14-2022 Emergency department patient visit Bob Llanos [facility] Start: 07-11-2022 End: 07-11-2022 ambulatory ROSEANN CORRAL Facility:[facility] Start: 06-24-2022 End: 06-24-2022 ambulatory Viet Welch Other [employer] Other Start: 06-24-2022 Office outpatient visit 15 minutes Viet Welch [facility] Start: 01-11-2022 End: 01-11-2022 ambulatory NONE LISTED REQUEST Facility:[facility] Start: 01-07-2022 End: 01-09-2022 Evaluation and management of inpatient DR RENATA GEORGES Facility:[facility] Start: 12-29-2021 End: 12-29-[address] JUVENAL THORPE Facility:[facility] Start: 12-19-2021 End: 12-19-[address] JUVENAL THORPE Facility:[facility] Start: 12-12-2021 End: 12-13-2021 ambulatory JUAQUIN SEWELL [facility] Start: 12-12-2021 End: 12-12-2021 Subsequent hospital visit by physician [facility] Start: 11-27-2021 End: 11-27-[address] SOFIA KABA Facility:[facility] Start: 11-13-2021 End: 11-13-2021 ambulatory Michael Oneil Other [employer] Other Start: 11-13-2021 Office outpatient visit 15 minutes Michael Oneil [facility] Start: 11-06-2021 End: 11-06-2021 ambulatory Kendra Witt Other [employer] Other Start: 11-06-2021 Office outpatient visit 25 minutes Kendra Witt [facility] Start: 10-23-2021 End: 10-24-[address] JUVENAL [...] identified in Urine by Culture Urine Culture [facility] Start: 02-07-2022 Influenza vaccination Flu vaccine (# 1) [facility] Start: 01-09-2022 End: 01-09-2022 Patient encounter procedure 01/09/2022 Routine Perinatology [facility] Start: 01-02-2022 End: 01-02-2022 Patient encounter procedure 01/02/2022 Routine Perinatology [facility] Start: 12-26-2021 End: 12-26-2021 Patient encounter procedure 12/26/2021 Routine Perinatology [facility] Start: 12-20-2021 End: 12-20-2021 Patient encounter procedure 12/20/2021 Routine Perinatology [facility] Start: 2021 DTaP/Tdap/Td vaccine (1 - Tdap) DTaP/Tdap/Td vaccine (1 - Tdap) [facility] Start: 2020 Hepatitis C screening Hepatitis C sc haresh [facility] Start: 2018 Screening for Chlamy nazanin trachomatis Chlamydia screen [facility] Start: 2017 HIV screening HIV screen [facility] Start: 2014 [facility] Start: 2013 HPV vaccine (1 - 2-d ose series) HPV vaccine (1 - 2-dose series) [employer] [facility] Start: 09-16-2007 COVID-19 Vaccine (1) COVID-19 Vaccin e (1) [employer] [facility] Start: 09-16-2003 Varicella vaccine (1 of 2 - 2-dose childhood series) Varicella vaccine (1 of 2 - 2-dose childhood series) [facility] Patient Education Depression, Adult ED [facility] Work Phone: Patient referral [facility] Work Phone: End: 12-12-2021 Sjogrens syndrome-A extractable nuclear antibody [employer] Work Phone: Comment on above: Once for 1 Occurrenc es starting 12/12/2021 until 12/12/2021 End: 12-12-2021 Sjogrens syndrome-B extractable nuclear antibody [employer] [facility] Work Phone: Comment on above: Once for 1 Occurrenc es starting 12/12/2021 until 12/12/2021 Immunizations Immunization Date Immunization Notes Care Provider Simona galarza NEGATED: Highlighted row has not occurred!11-05-2019 influenza, injectable, quadrivalent, contains preservative Kendra Witt Other [employer] Other NEGATED: Highlighted row has not occurred!04-10-2019 influenza virus vaccine, unspecified formulation Bob Viet [facility] Payers Date Payer Category Payer Self-pay [id number] 2002 Unknown [id number] 2.16. [id number] 2002 Unknown [id number] 2.16.84 0.1.496005.3.579.2.593 2002 Unknown [id number] 2.16.84 0.1.755213.3.579.2.593 2002 Unknown [id number] 2.16.84 0.1.574633.3.579.2.593 2002 Unknown [id number] 2.16.84 0.1.873579.3.579.2.593 2002 Unknown [id number] 2.16.84 0.1.785023.3.579.2.593 2002 Unknown [id number] 2.16.84 0.1.186966.3.579.2.593 2002 Unknown [id number] 2.16.84 0.1.042597.3.579.2.593 2002 Unknown [id number] 2.16.84 0.1.865946.3.579.2.593 2002 Unknown [id number] 2.16.84 0.1.050575.3.579.2.593 2002 Unknown [id number] 2.16.84 0.1.947396.3.579.2.593 2002 Unknown [id number] 2.16.84 0.1.889274.3.579.2.593 2002 Unknown [id number] 2.16.8 40.1.789453.3.579.2.1286 2002 Unknown [id number] 2.16.8 40.1.782122.3.579.2.1286 2002 Unknown [id number] 2.16.8 40.1.833626.3.579.2.1286 2002 Unknown [id number] 2.16.8 40.1.630609.3.579.2.727 2002 Unknown [id number] 2.16.8 40.1.484771.3.579.2.727 2002 Unknown [id number] 2.16.8 40.1.171062.3.579.2.727 2002 Unknown [id number] 2.16.8 40.1.905433.3.579.2.727 2002 Unknown [id number] 2.16.8 40.1.820597.3.579.2.727 2002 Unknown [id number] 2.16.84 0.1.759625.3.579.2.1259 2002 Unknown [id number] 2.16.84 0.1.100554.3.579.2.9 2002 Unknown [id number] 2.16.84 0.1.456199.3.579.2.9 2002 Unknown [id number] 2.16.84 0.1.095707.3.579.2.9 2002 Unknown [id number] 2.16.84 0.1.552114.3.579.2.9 2002 Unknown [id number] 2.16.84 0.1.514018.3.579.2.9 2002 Unknown [id number] 2.16.84 0.1.003544.3.579.2.9 1959 Unknown [id number] 2.1 6.840.1.107966.19 1959 Unknown [id number] Unknown [id number] 2.16.8 40.1.543731.3.579.2.531 Social History Date Type Detail Facility Sex Assigned At [facility] Start: 11-28-2021 Tobacco smoking stat [facility] Never smoked tobacco [employer] Phone: Start: 11-28-2021 Tobacco use and exposure Smokeless tobacco non-user [employer] Phone: Start: 12-12-2021 Alcohol intake Ex-drinker (finding) [employer] Phone: Start: 12-12-2021 Tobacco Comment no longer vapes [employer] Phone: Start: 04-21-2021 [place] [employer] Work Phone: Start: 2002 Sex Assigned At Not on file B ON [employer] Phone: Tobacco Current vaping o r e-cigarette use Smokeless Tobacco Use:. Vaping [facility] Tobacco smoking status No Smokin g Status Entered [facility] Start: 10-02-2022 Tobacco smoking stat us NHIS Smoker (finding) [facility] Start: 2002 Sex Assigned At Female F [facility] Functional Status Date Assessment Result Facility 02-03-2024 Functional Status N/A [facility] 09-23-2023 Functional Status N/A [facility] 08-27-2023 Functional Status N/A [facility] 01-03-2023 Functional Status N/A [facility] 09-06-2022 Functional Status N/A [facility] 08-14-2022 Functional Status N/A [facility] Clinical Notes 11-06-2021 to 02-03-2024 Note Date & Type Note Facility 02-03-2024 Evaluation + Plan note Extrac ruby from: Title:ED Note Author:Duc Swanson PA-C te:02/03/24 Sore throat (J02.9: Acute ph aryngitis, unspecified) Viral URI (J06.9: Acute upper respiratory infection, unspecified) Orders: Group A Strep by PCR Rapid Strep w/rfx Diagnostic Tests Pending * Group A Strep by PCR 02/03/24 [facility] 08-27-2024 Hospital Discharge instructions Patient [...] medicines to help relieve symptoms, such as: Yatp-lfs-zgpwfai cold medicines. Cough suppressants. Coughing is a [...] and other clear broths. 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 Avoid touching your mouth, face, eyes, or [...] provider. Document Revised: 12/26/2021 Document Reviewed: 12/26/2021 [employer] Patient Education 2022 [email or web address]. Follow Up Care 02/03/2024 09:23:13 With:Juvenal THORPE Address: [address] , [place] [address]- Business (1) When:02/06/2024 11:12:27 With:SELAM HUNTER Address: [facility] [place] [address] Business (1) When:02/06/2024 11:12:21 [facility] 08-27-2024 NoteED Patient Education Note [...] to help relieve symptoms, such as: ? Xhcp-ifj-txptgkq cold medicines. ? Cough suppressants. Coughing is [...] other clear broths. General instructions ? Take qjhv-ngr-dejifav and prescription medicines only as told by [...] soap and water are not available,use hand millwright apprentice. ? Avoid touching your mouth, face, eyes, [...] Mood. These symptoms m (more content not included)...[facility] 09-23-2023 Hospital Discharge instructions Patient [...] provider. Document Revised: 02/19/2021 Document Reviewed: 02/19/2021 [employer] Patient Education 2022 [email or web address]. Follow Up Care 09/23/2023 09:11:45 With:Juvenal THORPE Address: [address] [place] [address] Business (1) When:09/26/2023 11:44:07 [facility]03-20-2024 Hospital Discharge instructions Patient Education [...] provider. Document Revised: 01/09/2022 Document Reviewed: 01/09/2022 [employer] Patient Education 2022 [email or web address]. 08/27/2023 12:34:16 Urinary Tract Infection, Adult, Hohx-sj-Zrxz Urinary Tract Infection, Adult A urinary tract [...] Follow these instructions at home: Medicines Take epal-ryc-eodqdsc and prescription medicines only as told by [...] provider. Document Revised: 01/05/2021 Document Reviewed: 01/05/2021 [employer] Patient Education 2022 [email or web address]. 08/27/2023 12:34:16 Subchorionic Hematoma Subchorionic Hematoma A [...] provider. Document Revised: 02/19/2021 Document Reviewed: 02/19/2021 [employer] Patient Education 2022 [email or web address]. Follow Up Care 08/27/2023 09:39:16 With:Juvenal THORPE Address: [address] , [place] [address] Business (1) When:08/30/2023 12:05:10 With:SELAM HUNTER Address: [facility] [place] [address] Business (1) When:Within 3 Day(s) [facility]03-20-2024 Evaluation + Plan noteExtracted from: [...] day(s), # 28 cap(s), Refills(s) 0, Pharmacy: [id number], 170, cm, 08/27/23 9:49:00 EDT, Height/Length Dosing, 78.7, kg, 08/27/23 9:49:00 EDT, Weight Dosing ABO/Rh Basic Metabolic Panel Beta hCG Quantitative CBC w/ Auto Diff eGFR Extra Blue Tube Extra SST Tube UA with Cult Rflx Urine Culture US 1st Trimester US Transvaginal Diagnostic Tests Pending * Urine Culture 08/27/23 [facility]07-29-2023 Hospital Discharge instructions Patient Education 01/04/2023 00:13:01 Pharyngitis, Rziv-eu-Kypg Pharyngitis Pharyngitis is a sore throat (pharynx). [...] Follow these instructions at home: Medicines Take sler-arm-bsplccm and prescription medicines only as told by [...] and water are not available, use hand millwright apprentice. Do not touch your eyes, nose, or [...] provider. Document Revised: 08/22/2021 Document Reviewed: 08/22/2021 [employer] Patient Education 2022 [employer] Follow Up Care 01/03/2023 22:32:55 With:Thonyyrn Carl Address: [address] [place] [address] [place] [address] [facility] (1) When:01/06/2023 Comments:Follow-up with your primary care provider in 3 to 5 days. If symptoms worsen, do not improve, or new symptoms arise please report back to emergency department for further evaluation. [facility]07-28-2023 Evaluation + Plan noteExtracted from: [...] q12hr, # 20 cap(s), Refills(s) 0, Pharmacy: [facility], 170, cm, 01/03/23 22:44:00 EDT, Height/Length Dosing, 75.3, kg, 01/03/23 22:44:00 EDT, Weight Dosing ondansetron, 4 mg = 1 tab(s), Oral, q8hr, PRN Nausea/Vomiting, # 12 tab(s), Refills(s) 0, [facility], cm, 01/03/23 22:44:00 EDT, Height/Length Dosing, 75.3, kg, 01/03/23 22:44:00 EDT, Weight Dosing ondansetron, 12 mg = 3 tab(s), Tab-Dis, Oral, Once, Stop date 01/03/23 23:45:00 EDT, STAT, Start date 01/03/23 23:45:00 EDT, 01/03/23 23:45:00 EDT Automated Diff Basic Metabolic Panel Beta hCG Quantitative CBC w/ Auto Diff eGFR Hepatic Function Panel Lipase Level [facility]04-19-2023 Evaluation note* Encounter Date Diagnosis [...] of symptoms occur by end of treatment. [employer] Other 03-31-2023 Hospital Discharge instructions Patient Education [...] Follow these instructions at home: Medicines Take zhao-xcf-thxwupv and prescription medicines only as told by [...] important. Where to find more information [employer]: www.acog.org [place] [...] 11/19/2001 Document Revised: 09/17/2019 Document Reviewed: 07/01/2017 [employer] Patient Education 2020 [employer] Follow Up Care 09/06/2022 10:42:16 With:Juvenal THORPE Address: [address] [place] [address]- Business (1) When:09/09/2022 13:46:05 [facility]03-09-2023 Hospital Discharge instructions Patient Education 08/14/2022 22:12:46 Abdominal Pain During , Uzoi-jc-Duff Abdominal Pain During Belly (abdominal) pain is [...] keep your pee (urine) pale yellow. Take qdhq-mvb-ydjseaa and prescription medicines only as told by [...] Document Reviewed: 08/28/2017 Elsevier Patient Education 2020 [email or web address]. 08/14/2022 22:12:46 Abdominal Pain, Adult, Waln-dq-Rigi Abdominal Pain, Adult Many things can cause belly (abdominal) pain. Most times, belly pain is not dangerous. Many cases of belly pain can be watched and treated at home. Sometimes, though, belly pain is serious. Your doctor will try to find the cause of your belly pain. Follow these instructions at home: Medicines Take juej-jri-epqpybr and prescription medicines only as told by [...] your belly pain for any changes. Take mttw-tfb-dqywfut and prescription medicines only as told by [...] 11/11/2008 Document Revised: 10/04/2019 Document Reviewed: 10/04/2019 [employer] Patient Education 2020 [email or web address]. Follow Up Care 08/14/2022 18:41:38 With:Juvenal THORPE Address: [address] , [place] [address]- Business (1) When:08/17/2022 Comments:Follow-up with Dr. Thorpe for further evaluation of your . With:Juventino Carbajal Address: [address] [place] [address]- When:08/17/2022 Comments:Follow-up with your primary care provider in 3 to 5 days. If symptoms worsen, do not improve, or new symptoms arise please report back to emergency department for further evaluation. [facility]01-16-2023 Evaluation note* Encounter Date Diagnosis [...] return precautions. Jun, Cough (ICD-10 - R05.9) [employer] Other 06-07-2022 Evaluation note* Encounter Date Diagnosis [...] Pt understood and agreed to tx plan. [employer] Other [id number] Evaluation note* Encounter Date Diagnosis Assessment Notes [...] condition October, Sore throat (ICD-10 - J02.9) [employer] Other Evaluation + Plan note No data available for this section [facility] note[facility] assessment information available [facility] Work Phone: Evaluation noteNo InformationNort [employer] Other History general Narrative - Reported* Type Description Date Medical History fx lt elbow at age 7 Surgical History surgical repair of left elbow f racture at age 7 Hospitalization History see surgical hx [employer] Other Progress note No data available for this section [facility] Summary Purpose Family History No [...] section and content) DATE CREATED AUTHOR 01/05/2022 [facility] DATE CREATED AUTHOR AUTHOR'S ORGANIZ ATION 07/15/[address] [facility] DATE CREATED AUTHOR AUTHOR'S ORGANIZ ATION 10/10/2022 [facility] DATE CREATED AUTHOR AUTHOR'S ORGANIZ ATION 12/26/2023 [facility] DATE CREATED AUTHOR AUTHOR'S ORGANIZ ATION [facility]20[facility] DATE CREATED AUTHOR AUTHOR'S ORGANIZ ATION 02/06/2024 [facility] DATE CREATED AUTHOR AUTHOR'S ORGANIZ ATION 02/17/2024 [facility] [employer] Care Teams (unrecognized sec tion and content) Personnel Name: SELAM HUNTER CNP Address: Address: [address] [place] [address] Team Status: Active Member Role Status Dates [...] BE BASED ON THE PRIMARY CLINICAL RECORDS. [employer] [facility]. provides no warranty or guarantee of the accuracy or completeness of information in this document.
--- NOTE | 2024-02-23 13:04 | US_ITS ---
[address] [address] Patient Name: KAILYN ACKERMAN MRN: [id number] date: 2000 Sex: F Assigned Patient Location: Current Patient Location: Accession/Order Number: [id number] Exam Date: 02/23/2024 13:05 Report Date: 02/24/2024 07:40 At the request of: VAL ANG Procedure: US OB BPP w non-stress EXAMINATION: US OB BPP w non-stress HISTORY: Antepartum placenta circumvallate O43.119 COMPARISON: No relevant comparison available. TECHNIQUE: Ultrasound biophysical profile was performed in the radiology department. non-reactive stress testing was performed by nursing staff in the birthing center. FINDINGS: BREATHING MOVEMENTS: 2 GROSS BODY MOVEMENTS: 2 TONE: 2 QUALITATIVE AMNIOTIC FLUID VOLUME: 2 PRESENTATION: Cephalic HEART RATE: 144 bpm AMNIOTIC FLUID VOLUME: 12.4 cm GESTATIONAL AGE: 32 weeks 4 days US/US OB BPP w non-stress IMPRESSION: Total biophysical profile score: 8/8 Electronically authenticated by: SOFIA KABA Date: 02/24/2024 07:40
[2024-02-23 13:49] VITALS: BP 107/60; PULSE 82
== END 2024-02-23 14:21 | disposition home or self-care (01) ==
LOC: US 07:01 → FBC 13:00
PROVIDERS: Visit Provider Obstetrics & Gynecology
DX: O43.113 Circumvallate placenta, third trimester (principal); Z3A.32 32 weeks gestation of pregnancy
CPT/HCPCS: 76818; 76820

== ENCOUNTER 2024-02-24 09:58 | Observation (INO) | payer OTHER, SELFPAY ==
[2024-02-24 10:17] VITALS: BP 107/59; PULSE 84; TEMP 36
--- OUTSIDE RECORDS SUMMARY | 2024-02-24 10:21 | XMS_ITS | CCD ---
Author Organization [facility] Inform ion [facility] Care Team Providers Care Dyeing Machine Feeder Name Role Phone Kendra Witt Unavailable Michael [...] Unavaila ble MIRI, DR NEAL Attending Unavailable IMRI, DR NEAL Admitting Unavailable ROSEANN CORRAL Consulting Unavailable REQUEST, NONE LISTED Primary Care Unavaila ROSEANN Wilson Attending Unavailable ROSEANN CORRAL Admitting Unavailable KARASIK, DR YANEZ Consulting Unavailable MISC, DR SANDOVAL Primary Care Unavailable KARASIK, DR YANEZ Attending Unavailable KARASIK, DR YANEZ Admitting Unavailable ZIEBER, DR MARS Mccarthy Consulting Unavailable MAYER, DR SOFIA Hull Consulting Unavailable REQUEST, NONE [...] MIRI, DR NEAL Attending Unavailable MIRI, DR NELA Admitting Unavailable MIRI, DR NEAL Consulting Unavailable [...] Medication Allergies] Propensity to adverse reactions (disorder) [facility] Repository Medications Current Medications Medication [...] day(s), # 28 cap(s), Refills(s) 0, Pharmacy: [facility], 170, cm, 08/27/23 9:49:00 EDT, Height/Length Dosing, 78.7, kg, 08/27/23 9:49:00 EDT, Weight Dosing Start Date: 08/27/23 Stop Date: 09/03/23 Status: Ordered Start: 01-03-2023 take 1 capsule by [facility] every twelve hours Keflex 500 mg Cap 500 mg = 1 cap(s), Oral, q12hr, # 20 cap(s), Refills(s) 0, Pharmacy: [facility], 170, cm, 01/03/23 22:44:00 EDT, Height/Length Dosing, 75.3, kg, 01/03/23 22:44:00 EDT, Weight Dosing Start Date: 01/03/23 Status: Ordered Citalopram (2 sources) Serotonin Reuptake Inhibitor Citalopram Hydrobromide Active dexamethasone 1 mg/ml / neomycin 3.5 mg/ml / polymyxin b 50070 unt/ml ophthalmic suspension (2 sources) Aminoglycoside Antibacterial, Polymyxin-class Antibacterial, Corticosteroid Start: 09-26-19 take 1 drop(s) into the eye(s) four times daily Maxitrol 3.5-76767-9.1 1 drop into affected eye Ophthalmic Four [...] 3 hrs for 2 days Jun, Active Payette (No Known Home Meds) (1 source) Start: 06-26-2021 Payette (No Known Home Meds) Active June 26, [...] Nausea/Vomiting, # 12 tab(s), Refills(s) 0, Pharmacy: [facility], 170, cm, 01/03/23 22:44:00 EDT, Height/Length Dosing, 75.3, kg, 01/03/23 22:44:00 EDT, Weight Dosing Start Date: 01/03/23 Status: Ordered Start: 06-09-2019 take 1 tablet by faby th three times daily Zofran ODT 4 mg Tab-Dis 4 mg = 1 tab(s), Oral, TID, # 15 tab(s), Refills(s) 0, Pharmacy: [facility] Start Date: 06/09/19 Status: [...] take 450 mg by mouth twice daily [place] Carbonate Discontinued 450 MG PO Twice daily [...] Grp A Strp Intrl Ctrl Pass Normal [facility] Comment on above: Order Comment: Order Added on by Discern Rule. Performed By: #### 1 [id number] #### [facility] [address] [place] [address] S. pyogenes DNA ALFREDO+probe Ql (Throat) Negative Normal [facility] Comment on above: Order Comment: Order Added on by Discern Rule. Result Comment: Test ing performed using DNA amplification. Performed By: #### 1 [id number] #### [facility] [address] [place] [address] ED Clinical Summaryon 2023 ED Clinical Summary ED Clinical Summary [address] [address] ED Clinical Summary Person Information Name: KAILYN ACKERMAN [facility]ena/[facility] Age: 23 Years : 2000 Sex: Female Language: Cameroonian PCP: SELAM HUNTER CNP Marital Status: Single Phone: [phone] MRN: Visit Id: Visit Reason: Headache; Body [...] 02/03/2024 11:17:23 02/03/2024 11:17:23 02/03/2024 11:17:23 ADDRESS: [address] [place] [phone] PHYS DOC NOTES: MEDICAL INFORMATION: Prescriptions Given: [...] With: Address: When: Juvenal THORPE [facility], [address] [place] [address] [place] [address] Business (1) In 3 days 02/06/2024 With: Address: When: [place] [address] Business (1) In 3 days 02/06/2024 DIAGNOSIS: Sore throat; Viral URI Normal [facility] ED Note-Physicianon 08-27-20 24 ED [...] URI and will continue to follow-up with CARGO INSPECTOR for further evaluation and management. We [...] days 02/06/2024 (more content not included)... Normal [facility] Comment on above: Result Comment: Elec tronically Signed By: Duc Swanson PA-C\.br\Date and Time Signed: 02/03/24 13:23 EDT\.br\Electronically Co-Signed By: Siva Schulte DO\.br\Date and Time Co-Signed: 02/03/24 14:44 EDT ED Patient Summaryon 024 ED Patient Summary ED Patient Summary [address] [address] Patient Discharge Instructions Person Information Name: KAILYN ACKERMAN Age: 23 Years Arrival Date: 02/03/2024 09:21:41 Discharge Diagnosis: Sore throat; Viral URI Primary Care Physician: SELAM HUNTER CNP Provider Information Primary Provider: Siva Schulte DO Advanced Job Setter Honing:Duc Swanson PA-C The exam and treatment you received in the Emergency Department were for an urgent problem and are not intended as complete care. It is important that you follow up with a doctor, nurse practitioner, or physician?s oncology physician assistant for ongoing care. If your symptoms become worse or you do not improve as expected and you are unable to reach your usual health care provider, you should return to the Emergency Department. We are available 24 hours a day. KAILYN ACKERMAN has been given the following list of patient education materials, prescriptions and follow-up instructions: Follow-up Instructions: With: Address: When: Jvuenal THORPE [facility], [address] [place] [address] [place] [address] Business (1) In 3 days 02/06/2024 With: Address: When: SELAM HUNTER [address] [place], [place] [address] [address] Business (1) In 3 days 02/06/2024 In the event that this physician does not participate in your insurance network, please consult with your insurance company to find a nearby participating provider. Patient Education Materials: Upper Respiratory Infection, Adult A MESSAGE TO ALL PATIENTS REGARDING OPIOIDS PRESCRIPTION OPIOIDS: WHAT YOU NEED TO KNOW Prescription opioids can be used to help relieve qrzfmhut-or-tyajgm pain and are often prescribed following a [...] of op (more content not included)... Normal [facility] MICRO OTHER TESTSOrdered By: Nita Delgadillo on 02-03-2024 S. pyogenes Ag IA.rapid Ql (Throat) Negative (02/03/24 11:07 AM) Normal Negative [facility] Sero MICRO OTHER TESTSOrdered By: Asuncion Goncalves on 02-03-2024 Rapid COV Int NEG Ctl Pass (02/03/24 9:30 AM) Normal [facility] Man Sero Rapid COV Int POS Ctl Pass (02/03/24 9:30 AM) Normal [facility] Sero SARS-CoV+SARS-CoV-2 (COVID-19) Ag IA.rapid Ql (Resp) Not Detected 1 (02/03/24 9:30 AM) Normal Not Detected [facility] Man Sero Comment on above: Interpretive Data: Gato multani Shipu Veritor System for Rapid Detection of SARS-CoV-2 [...] COV Int NEG Ctl Pass Normal [facility] Comment on above: Performed By: #### 2 [id number] #### [facility] [address] [place] [address] Rapid COV Int POS Ctl Pass Normal [facility] Comment on above: Performed By: #### 2 [id number] #### [facility] [address] [place] [address] SARS-CoV+SARS-CoV-2 (COVID-19) Ag IA.rapid Ql (Resp) Not detected Normal Not Detected [facility] Comment on above: Result Comment: The Shipu Veritor? System for Rapid Detection of SARS-CoV-2 [...] other viruses or pathogens; and, in the [facility], this test is only authorized for the duration of the declaration that circumstances exist justifying the authorization of emergency use of in vitro diagnostics for detection and/or diagnosis of the virus that causes COVID-19 under Section 564(b)(1) of the Act, 21 U.S.C. ? 360bbb-3(b)(1), unless the authorization is terminated or revoked sooner. Performed By: #### 2 [id number] #### [facility] [address] [place] [address] Rapid Strep w/rfxon 02-03-20 24 S. pyogenes Ag IA.rapid Ql (Throat) Negative Normal Negative [facility] Comment on above: Performed By: #### 2 [id number] #### [facility] [address] [place] [address] ED Note-Physicianon 09-26-19 24 ED Note-Physician Basic [...] than 90,000. Ultrasound was obtained discussed with csr technician. Intrauterine consistent with stated gestational age. Stable heart rate. Patient continues to demonstrate subchorionic hematoma. Also left-sided ovarian cyst similar to previous. Results were discussed with the patient. She is discharged home to continue pelvic rest and follow-up with CARGO INSPECTOR. Patient was encouraged to return to [...] Juvenal THORPE In 3 days 09/26/[address] , [place] [address] Business (1) Additional Instructions: Patient Education Subchorionic [...] made to ensure accuracy, however, inadvertently computerized ui lead developer mistakes may be present. Appropriate healthcare PPE [...] Yes., 04/10/2019 Lab Results Beta hCG Qnt: 95068 mIU/mL High (09/23/23 09:28:00) Diagnostic Results No qualifying data available. Normal [facility] Comment on above: Result Comment: Elec tronically Signed By: Mandie CHUNG, Venkat\.br\Date and Time Signed: 09/23/23 11:45 EDT\.br\Electronically Co-Signed By: Wil Chandra DO\.br\Date and Time Co-Signed: 09/26/23 07:37 EDT [facility] Quanton 09-23-20[place] [address] m[IU]/mL High 1-3 [facility] Comment on above: Result Comment: 'F N ON < 1 - 3' ' 0.2 - 1 WEEK = 5 TO 50' ' 1 - 2 WEEKS = 50 - 500' ' 2 - 3 WEEKS = 100 - 5000' ' 3 - 4 WEEKS = 500 - 47955' ' 4 - 5 WEEKS = 1000 - 58081' ' 5 - 6 WEEKS = 39591 - 321488' ' 6 - 8 WEEKS = 98340 - 981401' ' 8 - 12 WEEKS = 75578 - 975378' Performed By: #### 2 [id number] ####[place] [address] [place] [address] CHEMISTRYOrdered By: SYSTEM SYSTEM on 09-23-2023 [place] [address] m[IU]/mL High 1 - 3 mIU/mL [facility] Comment on above: Result Comment: 'F N ON < 1 - 3' ' 0.2 - 1 WEEK = 5 TO 50' ' 1 - 2 WEEKS = 50 - 500' ' 2 - 3 WEEKS = 100 - 5000' ' 3 - 4 WEEKS = 500 - 42392' ' 4 - 5 WEEKS = 1000 - 88117' ' 5 - 6 WEEKS = 52937 - 583290' ' 6 - 8 WEEKS = 90460 - 769768' ' 8 - 12 WEEKS = 72181 - 791736' Consent for Treatmenton 09-07 Consent for Treatment [id number]#1.00TIFF Normal [facility] Discharge Instructionson Discharge Instructions [id number]#1.00TIFF Normal [facility] ED Clinical Summaryon 2023 ED Clinical Summary [address] [address] ED Clinical Summary Person Information Name: KAILYN ACKERMAN [facility]ena/[facility] Age: 23 Years : 2000 Sex: Female Language: Cameroonian PCP: NONE, XXXX Marital Status: Single Phone: [phone] MRN: [id number] Visit Id: Visit Reason: Back [...] 09/23/2023 11:52:16 09/23/2023 11:52:16 09/23/2023 11:52:16 ADDRESS: [address] [place] [phone] PHYS DOC NOTES: MEDICAL INFORMATION: Prescriptions Given: [...] With: Address: When: Juvenal THORPE [facility], [address] [place] [address] [place] [address] Business (1) In 3 days 09/26/2023 DIAGNOSIS: Other antepartum hemorrhage, unspecified trimester; Subchorionic bleed; Vaginal bleeding in Normal [facility] ED Patient Education Noteon 09-23-2023 [...] provider. Document Revised: 02/19/2021 Document Reviewed: 02/19/2021 [employer] Patient Education ? 2022 [employer]. Normal [facility] ED Patient Summaryon 024 ED Patient Summary [address] [address] Patient Discharge Instructions Person Information Name: GARCÍA ACKERMANNZIE Evan Age: 23 Years Arrival Date: 09/23/2023 09:10:07 Discharge Diagnosis: Other antepartum hemorrhage, unspecified trimester; Subchorionic bleed; Vaginal bleeding in Primary Care Physician: NONE, XXXX Provider Information Primary Provider: Wil Chandra DO Advanced Job Setter Honing:Venkat Leal PA-C The exam and treatment you received in the Emergency Department were for an urgent problem and are not intended as complete care. It is important that you follow up with a doctor, nurse practitioner, or physician?s oncology physician assistant for ongoing care. If your symptoms [...] With: Address: When: Juvenal THORPE [facility], [address] [place] [address] , [place] [address] Business (1) In 3 days 09/26/2023 In the event that this physician does not participate in your insurance network, please consult with your insurance company to find a nearby participating provider. Patient Education Materials: Subchorionic Hematoma A MESSAGE TO ALL PATIENTS REGARDING OPIOIDS PRESCRIPTION OPIOIDS: WHAT YOU NEED TO KNOW Prescription opioids can be used to help relieve lctmozhl-zy-owdnat pain and are often prescribed following a [...] health care p (more content not included)... [facility] Prescriptions/Work Noteson 0 09-23-2023 Prescriptions/Work Notes [id number] [facility] US 1st Trimesteron 09-23-2023 1st Trimester [...] least 66% of the gestational sac circumference. [place] Rump Length: 3.2 cm, which corresponds Composite [...] Size = Dates Uterus Position Anteverted Normal [facility] C Urineon 08-29-2023 Bacteria identified [...] Locations R1: This test was performed at: [facility], [address] [place] [address], [address] , , Normal [facility] Comment on above: Performed By: #### 4 [id number] ####[facility] [address] [place] [address] ABO/Rhon 08-27-2023 ABO/Rh Positive Invalid Interpretation Code [facility] Comment on above: Performed By: #### 2 [id number] ####[facility] [address] [place] [address] BLOOD BANKOrdered By: Liza Xavier on 08-27-2023 ABO/Rh Interp Positive Invalid Interpretation Code [facility] BB Subsection BMPon 08-27-2023 Anion gap [Moles/Vol] 11 mmol/L Normal 6-16 [facility] Comment on above: Performed By: #### 1 [id number], [id number], [id number] ####[facility] [address] [facility] [place] [address] Calcium [Mass/Vol] 9.3 mg/dL Normal 8.9-11.1 [facility] Comment on above: Performed By: #### 1 [id number], [id number], 5009516 ####[facility] [address] [place] [address] Chloride [Moles/Vol] 104 mmol/L Normal 101-111 [facility] Comment on above: Performed By: #### 1 [id number], 1553193, 2418089 ####[facility] [address] [place] [address] CO2 [Moles/Vol] 24 mmol/L Normal 21-31 [facility] Comment on above: Performed By: #### 1 1166091, 4908482, 9180039 ####[facility] [address] [place] [address] Creatinine [Mass/Vol] 0.6 mg/dL Normal 0.5-1.3 [facility] Comment on above: Performed By: #### 1 6769802, 9718814, 4841263 ####[facility] [address] [facility] [place] [address] Glucose [Mass/Vol] 87 mg/dL Normal 55-199 [facility] Comment on above: Performed By: #### 1 5136743, 3167074, 5066808 ####[facility] [address] [place] [address] Potassium [Moles/Vol] 3.7 mmol/L Normal 3.5-5.3 [facility] Comment on above: Performed By: #### 1 7799687, 0452035, 4343570 ####[facility] [address] [place] [address] Sodium [Moles/Vol] 135 mmol/L Normal 135-145 [facility] Comment on above: Performed By: #### 1 [id number], 6017043, 9793317 ####[facility] [address] [place] [address] Urea nitrogen [Mass/Vol] 8 mg/dL Normal 5-21 [facility] Comment on above: Performed By: #### 1 5903220, 0202502, 4543853 ####[facility] [address] [place] [address] Urea nitrogen/Creatinine [Mass ratio] 13 No Units Normal 10-20 [facility] Comment on above: Performed By: #### 1 6689286, 7515404, 7856151 ####[facility] [address] [place] [address] BhCG Quanton 08-27-2023 [place] [address] m[IU]/mL High 1-3 F [facility] Comment on above: Result Comment: 'F N ON < 1 - 3' ' 0.2 - 1 WEEK = 5 TO 50' ' 1 - 2 WEEKS = 50 - 500' ' 2 - 3 WEEKS = 100 - 5000' ' 3 - 4 WEEKS = 500 - 09783' ' 4 - 5 WEEKS = 1000 - 40099' ' 5 - 6 WEEKS = 82427 - 505783' ' 6 - 8 WEEKS = 90968 - 699153' ' 8 - 12 WEEKS = 93149 - 080449' Performed By: #### 2 612053 ####[facility] [address] [place] [address] CBC w/ Auto Diffon 4 Basophils/100 WBC (Bld) 0.6 % Normal 0.0-2.0 [facility] Comment on above: Performed By: #### 1 9485637, 9232937, 0022248 ####[facility] [address] [place] [address] Basophils/Leukocytes Auto (Bld) [Pure # fraction] 0.0 E9/L Normal 0.0-0.2 [facility] Comment on above: Performed By: #### 1 6794158, 6175342, 4546516 ####[address] [address] Eosinophils (Bld) [#/Vol] 0.1 E9/L Normal 0.0-0.5 [facility] Comment on above: Performed By: #### 1 6323831, 0898656, 9764428 ####[address] [address] Eosinophils/100 WBC (Bld) 2.0 % Normal 0.0-8.0 [facility] Comment on above: Performed By: #### 1 1500171, 3656163, 4141323 ####[address] [address] Erythrocyte distribution width (RBC) [Ratio] 15.0 % High 10.9-14.2 [facility] Comment on above: Performed By: #### 1 6907138, 8658962, 0800500 ####[address] [address] Hematocrit (Bld) [Volume fraction] 37.4 % Normal 34.0-46.0 [facility] Comment on above: Performed By: #### 1 8112990, 8646761, 1538660 ####[address] [address] Hemoglobin (Bld) [Mass/Vol] 12.7 g/dL Normal 12.0-16.0 [facility] Comment on above: Performed By: #### 1 7345185, 2532272, 0519095 ####[address] [address] Lymphocytes (Bld) [#/Vol] 2.0 E9/L Normal 1.0-4.0 [facility] Comment on above: Performed By: #### 1 9037812, 8909568, 6119292 ####[address] [address] Lymphocytes/100 WBC (Bld) 28.1 % Normal 14.0-50.0 [facility] Comment on above: Performed By: #### 1 8415843, 9136938, 0537056 ####[address] [address] MCH (RBC) [Entitic mass] 28.4 pg Normal 27.0-34.0 [facility] Comment on above: Performed By: #### 1 8072031, 0682032, 9051544 ####[place] [address] MCHC (RBC) [Mass/Vol] 33.8 g/dL Normal 31.4-36.0 [facility] Comment on above: Performed By: #### 1 9739791, 9763421, 8698333 ####[place] [address] MCV (RBC) [Entitic vol] 84.0 fL Normal 80.0-100.0 [facility] Comment on above: Performed By: #### 1 1406093, 0834916, 7272168 ####[place] [address] Monocytes (Bld) [#/Vol] 0.5 E9/L Normal 0.2-1.0 [facility] Comment on above: Performed By: #### 1 2718217, 7924552, 2611494 ####[address] [address] Neutrophils (Bld) [#/Vol] 4.5 E9/L Normal 2.0-7.5 [facility] Comment on above: Performed By: #### 1 1802716, 6503213, 1220784 ####[address] [address] Neutrophils/100 WBC (Bld) 61.9 % Normal 36.0-75.0 [facility] Comment on above: Performed By: #### 1 0017204, 2694629, 0089865 ####[address] [place] [address] Platelet mean volume (Bld) [Entitic vol] 7.9 fL Normal 6.4-10.8 [facility] Comment on above: Performed By: #### 1 8696593, 4505528, 4837764 ####[facility] [address] [place] [address] Platelets (Bld) [#/Vol] 252.0 E9/L Normal 150.0-500.0 [facility] Comment on above: Performed By: #### 1 2700583, 5549869, 4304891 ####[address] [address] RBC (Bld) [#/Vol] 4.5 E12/L Normal 4.3-5.9 [facility] Comment on above: Performed By: #### 1 5144275, 6753669, 0262768 ####[facility] [address] [place] [address] WBC corrected for nucl RBC Auto (Bld) [#/Vol] 7.2 E9/L Normal 4.0-11.0 [facility] Comment on above: Performed By: #### 1 0201063, 7555279, 4951912 ####[facility] [address] [place] [address] CHEMISTRYOrdered By: SYSTEM SYSTEM on 08-27-2023 Anion [...] 199 mg/[place] [address] m[IU]/mL High 1 - 3 mIU/mL [facility] Comment on above: Result Comment: 'F N ON < 1 - 3' ' 0.2 - 1 WEEK = 5 TO 50' ' 1 - 2 WEEKS = 50 - 500' ' 2 - 3 WEEKS = 100 - 5000' ' 3 - 4 WEEKS = 500 - 26324' ' 4 - 5 WEEKS = 1000 - 68798' ' 5 - 6 WEEKS = 05403 - 232500' ' 6 - 8 WEEKS = 77098 - 459451' ' 8 - 12 WEEKS = 55929 - 587342' Potassium [Moles/Vol] 3.7 mmol/L Normal 3.5 - 5.3 mmol/L [facility] Sodium [Moles/Vol] 135 mmol/L Normal 135 - 145 mmol/L [facility] Urea nitrogen [Mass/Vol] 8 mg/dL Normal 5 - 21 mg/d L [facility] Urea nitrogen/Creatinine [Mass ratio] 13 mg/mg Normal 10 - 20 [facility] Consent for Treatmenton 08-08 Consent for Treatment [id number] Normal [facility] Discharge Instructionson Discharge Instructions [id number] Normal [facility] ED Clinical Summaryon 2023 ED Clinical Summary [place] [id number] ED Clinical Summary Person Information Name: KAILYN ACKERMAN [facility]ena/[facility] Age: 22 Years : 2000 Sex: Female Language: Cameroonian PCP: SELAM HUNTER CNP Marital Status: Single Phone: [phone] MRN: Visit Id: Visit Reason: Vaginal bleeding [...] 08/27/2023 12:34:16 08/27/2023 12:34:16 08/27/2023 12:34:16 ADDRESS: [address] [place] [phone] PHYS DOC NOTES: MEDICAL INFORMATION: Prescriptions Given: Medications to Continue Taking That Have Changed [facility], [address] [place], [place] [id number], [phone] START: cephalexin (Keflex 500 mg Cap) 1 [...] Urinary Tract Infection; Urinary Tract Infection, Adult, Vmik-lt-Lquu; Subchorionic Hematoma Follow up: With: Address: When: Juvenal THORPE [facility], [address] [place] [address] [place], [place] [id number] Business (1) In 3 days 08/30/2023 With: Address: When: [place] [address] Business (1) In 3 days DIAGNOSIS: Other antepartum hemorrhage, unspecified trimester; Subchorionic bleed; UTI (urinary tract infection) during ; Vaginal bleeding in Normal [facility] ED Note-Physicianon 08-27-19 ED Note-Physician [...] and Complexity of Problems Differential Diagnosis: [] [facility] Data External documents reviewed: [] My [...] day(s), # 28 cap(s), Refills(s) 0, Pharmacy: [facility], 170, cm, 08/27/23 9:49:00 EDT, Height/Length [...] Juvenal THORPE In 3 days 08/30/[address] [place] [address]- Business (1) Additional Instructions: SELAM HUNTER In 3 days [facility] [place] [address]- Business (1) Additional Instructions: Patient Education and Urinary Tract Infection Urinary Tract Infection, Adult, Yzqr-ys-Tjiz Subchorionic Hematoma Attestation Patient seen and evaluated by the physician oncology physician assistant. Attending physician was present in the emergency department and s (more content not included)... Normal [facility] Comment on above: Result Comment: [...] provider. Document Revised: 01/09/2022 Document Reviewed: 01/09/2022 [employer] Patient Education ? 2022 [employer] Urinary Tract Infection, Adult A urinary [...] swelling (inflammation) (more content not included)... Normal [facility] ED Patient Summaryon 024 ED Patient Summary [place] [id number] Patient Discharge Instructions Person Information Name: KAILYN ACKERMAN Age: 22 Years Arrival Date: 08/27/2023 09:37:12 Discharge Diagnosis: Other antepartum hemorrhage, unspecified trimester; Subchorionic bleed; UTI (urinary tract infection) during ; Vaginal bleeding in Primary Care Physician: SELAM HUNTER CNP Provider Information Primary Provider: Emily Harper M.D. Advanced Job Setter Honing:None The exam and treatment you received in the Emergency Department were for an urgent problem and are not intended as complete care. It is important that you follow up with a doctor, nurse practitioner, or physician?s oncology physician assistant for ongoing care. If your symptoms become worse or you do not improve as expected and you are unable to reach your usual health care provider, you should return to the Emergency Department. We are available 24 hours a day. KAILYN ACKERMAN has been given the following list of patient education materials, prescriptions and follow-up instructions: Follow-up Instructions: With: Address: When[facility] [address] [place] [address] Dr. [facility] [place] [phone] Business (1) In 3 days 08/30/2023 With: Address: When: SELAM HUNTER [address] [place] [address] [place] [phone] Business (1) In 3 days In the event that this physician does not participate in your insurance network, please consult with your insurance company to find a nearby participating provider. Patient Education Materials: and Urinary Tract Infection; Urinary Tract Infection, Adult, Msdk-vh-Jygu; Subchorionic Hematoma A MESSAGE TO ALL PATIENTS REGARDING OPIOIDS PRESCRIPTION OPIOIDS: WHAT YOU NEED TO KNOW Prescription opioids can be used to help relieve sogbrtgg-ie-zqqrbj pain and are often prescribed following a [...] toilet, follo (more content not included)... Normal [facility] HEMATOLOGYOrdered By: SYSTEM SYSTEM on [...] 08-27-19 24 Color (U) Light-Yellow Normal Yellow [facility] Comment on above: Result Comment: Micr oscopic readings are only performed on those samples that meet specific criteria set forth by [facility]. Performed By: #### 4 [id number], [id number] ####[address] [address] Glucose (U) [Mass/Vol] Negative Normal Negative [facility] Comment on above: Performed By: #### 4 [id number], [id number] ####[facility] [address] [place] [address] Ketones Ql (U) Negative Normal Negative [facility] Comment on above: Performed By: #### 4 [id number], [id number] ####[facility] [address] [place] [address] UA Blood 3+ Abnormal Negative [facility] Comment on above: Performed By: #### 4 [id number], [id number] ####[facility] [address] [place] [address] UA Bacteria 1+ [id number] Abnormal Trace [facility] Comment on above: Performed By: #### 4 [id number], [id number] ####[address] [address] UA Clarity Turbid Abnormal Clear [facility] Comment on above: Performed By: #### 4 [id number], [id number] ####[facility] [address] [place] [address] UA Hyal Cast 0-3 Normal 0-3 [facility] Comment on above: Performed By: #### 4 [id number], [id number] ####[facility] [address] [place] [address] UA Leuk Est 250 Stefania/uL Abnormal Negative [facility] Comment on above: Performed By: #### 4 [id number], [id number] ####[facility] [address] [place] [address] UA Mucous Trace Normal Negative [facility] Comment on above: Performed By: #### 4 [id number], [id number] ####[facility] [address] [place] [address] UA Nitrite Negative Normal Negative [facility] Comment on above: Performed By: #### 4 [id number], [id number] ####[facility] [address] [place] [address] UA pH 5.5 Invalid Interpretation Code 5.0-9.0 [facility] Comment on above: Performed By: #### 4 [id number], [id number] ####[facility] [address] [place] [address] UA Protein 1+ mg/dL Abnormal Negative [facility] Comment on above: Performed By: #### 4 [id number], [id number] ####[facility] [address] [place] [address] UA RBC 4-20 Abnormal 0-3 [facility] Comment on above: Performed By: #### 4 [id number], [id number] ####[facility] [address] [place] [address] UA Spec Grav 1.018 Invalid Interpretation Code 1.005-1.030 [facility] Comment on above: Performed By: #### 4 [id number], [id number] ####[facility] [address] [place] [address] UA Squam Epithelial 3-4 Abnormal 0-2 Fishe r [facility] Comment on above: Performed By: #### 4 [id number], [id number] ####[facility] [address] [place] [address] UA Urobilinogen Negative Normal Negative [facility] Comment on above: Performed By: #### 4 [id number], [id number] ####[facility] [address] [place] [address] UA WBC 6-15 Abnormal 0-5 [facility] Comment on above: Performed By: #### 4 [id number], [id number] ####[facility] [address] [place] [address] Urobilinogen (U) [Mass/Vol] Negative Normal Negative [facility] Comment on above: Performed By: #### 4 [id number], [id number] ####[facility] [address] [place] [address] UA Spec Desc Clean Catch Normal [facility] Comment on above: Performed By: #### 4 [id number], [id number] ####[facility] [address] [place] [address] URINALYSISOrdered By: SYSTEM SYSTEM on 08-27-2023 Color (U) Light-Yellow 1 (08/27/23 9:55 AM) Normal Yellow [facility] UA Auto SS Comment on above: Interpretive Data: M icroscopic readings are only performed on those samples that meet specific criteria set forth by [facility]. Glucose (U) [Mass/Vol] Negative [...] for Exam: Other (please specify) Report [facility] [phone] IMPRESSION: Single live intrauterine with estimated sonographic [...] heart rate is measured at 120 bpm. [place]-rump length 4.77 mm. Estimated sonographic gestational age [...] Transvaginal Ultrasound Performed FHR (bpm) 120 Normal [facility] US Transvaginalon 08-27-2023 US Transvaginal Exam Date/Time: 08/27/2023 11:55 EDT Reason for Exam: Other (please specify) Report [facility] [phone] Please see ultrasound pelvis, for report of transvaginal examination. Ordering Provider: Hudson Riley FINAL REPORT Dictated: 08/27/2023 12:33 pm Zach Deng MD Signed (Electronic Signature): 08/27/2023 12:33 pm Signed by: Zach Deng MD Transcribed by: KIRK Technologist: SHELLEY Normal [facility] eGFRon 08-27-2023 eGFR 131 mL/min/1.73 m2 Normal >=59 [facility] Comment on above: Order Comment: Order added by Discern Expert. Performed By: #### 1 [id number], [id number], [id number] ####[facility] [address] [place] [address] [facility] Quanton 08-19-2023 HCG.beta subunit Qn 4261 m[IU]/mL High 1-3 [facility] Comment on above: Result Comment: 'F N ON < 1 - 3' ' 0.2 - 1 WEEK = 5 TO 50' ' 1 - 2 WEEKS = 50 - 500' ' 2 - 3 WEEKS = 100 - 5000' ' 3 - 4 WEEKS = 500 - 70893' ' 4 - 5 WEEKS = 1000 - 13472' ' 5 - 6 WEEKS = 56111 - 655130' ' 6 - 8 WEEKS = 03304 - 141059' ' 8 - 12 WEEKS = [address]4711 - 952346' Performed By: #### 2 [id number] ####[facility] [address] [place] [address] Physician Orderon 08-19-2023 Physician Order [id number] Normal [facility] CHEMISTRYOrdered By: Juancho benitez on [...] 1572 m[IU]/mL High 1 - 3 mIU/mL [facility] Remisol HEMATOLOGYOrdered By: SYSTEM SYSTEM on 01-03-2023 [...] (U) No growth to date Continuing incubation [facility] MICRO OTHER TESTSOrdered By: Juancho Fitch [...] Interpretation Code Negative [facility] UA Auto SS [place].plasma/[place].R BC (Bld) [Mass ratio] 0-3 /HPF Normal [...] FT UA Auto SS Urobilinogen Qn (U) 1.9600365 {Georgina'U}/dL Normal 0.0 - 1.0 EU/dL [facility] UA Auto SS WBC Auto Ql (U) 1+ *ABN* (01/03/23 10:52 PM) Invalid Interpretation Code Negative [facility] UA Auto SS WBC LM.HPF (Urine sed) [#/Area] 6-15 /HPF Invalid Interpretation Code 0-5/HPF [facility] UA Auto SS Alanine aminotransferase [En zymatic activity/volume] in Serum or PlasmaOrdered By: Jose Silverman on 10-02-2022 ALT [Catalytic activity/Vol] 13 U/L Normal 7-52 [facility] Comment on above: Performed By: #### C BC, CMP, ETOH #### [facility] [address] [place] [address] [place] Albumin [Mass/volume] in Ser um or Plasma by Bromocresol green (BCG) dye binding methoOrdered By: Jose Silverman on 10-02-2022 Albumin BCG dye [Mass/Vol] 5.0 g/dL 3.5-5.7 [facility] Alkaline phosphatase [Enzyma tic activity/volume] in Serum or PlasmaOrdered By: Jose Silverman on 10-02-2022 ALP [Catalytic activity/Vol] 69 U/L Normal 34-104 [facility] Comment on above: Performed By: #### C BC, CMP, ETOH #### [facility] [address] [place] [address] [place] Amphetamine Screen Ql (U)Ord ered By: Jose Silverman on 10-02-2022 Amphetamines Ql (U) Negative Negative [facility] Aspartate aminotransferase [ Enzymatic activity/volume] in Serum or PlasmaOrdered By: Jose Silverman on 10-02-2022 AST [Catalytic activity/Vol] 21 U/L Normal 13-39 [facility] Comment on above: Performed By: #### C BC, CMP, ETOH #### [address] Automated basophil %Ordered By: Jose Silverman on 10-02-2022 Basophils/100 WBC (Bld) 0.5 % Normal . [facility] Comment on above: Performed By: #### C BC, CMP, ETOH #### [address] Automated basophil countOrde red By: Jose Silverman on 10-02-2022 Basophils (Bld) [#/Vol] 0.1 10*3/uL Normal 0.0-0.2 [facility] Comment on above: Result Comment: PERF ORMED BY: [place] [address] PATHOLOGIST IT SUPPORT MANAGER ASHELY CAREY M.D. Performed By: #### C BC, CMP, ETOH #### [address] Automated blood monocyte cou ntOrdered By: Jose Silverman on 10-02-2022 Monocytes (Bld) [#/Vol] 0.7 10*3/uL Normal 0.0-0.8 [facility] Comment on above: Performed By: #### C BC, CMP, ETOH #### [address] Automated eosinophil %Ordere d By: Jose Silverman on 10-02-2022 Eosinophils/100 WBC (Bld) 2.0 % Normal . [facility] Comment on above: Performed By: #### C BC, CMP, ETOH #### [address] Automated eosinophil countOr dered By: Jose Silverman on 10-02-2022 Eosinophils (Bld) [#/Vol] 0.3 10*3/uL Normal 0.0-0.45 [facility] Comment on above: Performed By: #### C BC, CMP, ETOH #### [address] Automated erythrocytes count in urine sediment (number/area)Ordered By: Jose Silverman on 10-02-2022 RBC Auto (Urine sed) [#/Area] 0-1 [HPF] 0-4 [facility] Automated leukocytes count i n urine sediment (number/area)Ordered By: Jose Silverman on 10-02-2022 WBC Auto (Urine sed) [#/Area] 10-19 [HPF] 0-4 [facility] Automated monocyte %Ordered By: Jose Silverman on 10-02-2022 Monocytes/100 WBC (Bld) 5.7 % Normal . [facility] Comment on above: Performed By: #### C BC, CMP, ETOH #### [facility] [address] Automated neutrophil %Ordere d By: Jose Silverman on 10-02-2022 Neutrophils/100 WBC (Bld) 68.7 % Normal . [facility] Comment on above: Performed By: #### C BC, CMP, ETOH #### [facility] [address] [place] [address] [place] Barbiturates [Presence] in U rine by Screen methodOrdered By: Jose Silverman on 10-02-2022 Barbiturates Screen Ql (U) Negative Negative [facility] Benzodiazepines Screen Ql (U )Ordered By: Jose Silverman on 10-02-2022 Benzodiazepines Ql (U) Negative Negative [facility] Benzoylecgonine [Presence] i n Urine by Screen methodOrdered By: Jose Silverman on 10-02-2022 Benzoylecgonine Screen Ql (U) Negative Negative [facility] Bilirubin Test strip Ql (U)O rdered By: Jose Silverman on 10-02-2022 Bilirubin Ql (U) Negative Negative [facility] Bilirubin.total [Mass/volume ] in Serum or PlasmaOrdered By: Jose Silverman on 10-02-2022 Bilirubin [Mass/Vol] 0.3 mg/dL Normal 0.3-1.0 [facility] Comment on above: Performed By: #### C BC, CMP, ETOH #### [facility] [address] [place] [id number] [place] Calcium [Mass/volume] in Ser um or PlasmaOrdered By: Jose Silverman on 10-02-2022 Calcium [Mass/Vol] 9.6 mg/dL Normal 8.6-10.3 [facility] Comment on above: Performed By: #### C BC, CMP, ETOH #### [facility] [address] [place] [address] [place] Cannabinoids [Presence] in U rine by Screen methodOrdered By: Jose Silverman on 10-02-2022 Cannabinoids Screen Ql (U) Negative Negative [facility] Comment on above: These are unconfirme d results and should not be used for legal purposes. Drug Cut-Off Concentration: AMPH 1000 ng/mL MIAH 200 ng/mL AYAN 200 ng/mL COCM 300 ng/mL OP 300 ng/mL PCP 25 ng/mL THC 20 ng/mL Carbon dioxide, total [Moles /volume] in Serum or PlasmaOrdered By: Jose Silverman on 10-02-2022 CO2 [Moles/Vol] 27.2 mmol/L Normal 21.0-31.0 [facility] Comment on above: Performed By: #### C BC, CMP, ETOH #### [place] [address] [place] Chloride [Moles/volume] in S brian or PlasmaOrdered By: Jose Silverman on 10-02-2022 Chloride [Moles/Vol] 101 mmol/L Normal 98-107 [facility] Comment on above: Performed By: #### C BC, CMP, ETOH #### [place] [address] [place] Color Auto (U)Ordered By: Loli Silverman on 10-02-2022 Color (U) Yellow Yellow [facility] Complete Blood Count Auto Di ffon 10-02-2022 Mean Corpuscular HGB Conc 32.0 g/dL Normal 32.0-35.0 [facility] Comment on above: Performed By: #### C BC, CMP, ETOH #### [place] [address] [place] Monocytes/100 WBC (Bld) 17.72 % Normal 0.00-20.00 [facility] Comment on above: Performed By: #### C BC, CMP, ETOH #### [address] NRBC% 0.0 /100{WBC} Normal 0-0.5 [facility] Comment on above: Performed By: #### C BC, CMP, ETOH #### [address] Comprehensive Metabolic Pane tung 10-02-2022 Albumin [Mass/Vol] 5.0 g/dL Normal 3.5-5.7 [facility] Comment on above: Performed By: #### C BC, CMP, ETOH #### [address] Creatinine Clr Calc Pharmacy 107.48 Normal [facility] Comment on above: Result Comment: PERF ORMED BY: [place] [address] PATHOLOGIST IT SUPPORT MANAGER ASHELY CAREY M.D. Performed By: #### C BC, CMP, ETOH #### [address] GFR/1.73 sq M.predicted MDRD (S/P/Bld) [Vol rate/Area] mL/min/{1.73_m2} Normal [facility] Comment on above: Performed By: #### C BC, CMP, ETOH #### [address] Creatinine [Mass/volume] in Serum or PlasmaOrdered By: Jose Silverman on 10-02-2022 Creatinine [Mass/Vol] 0.89 mg/dL Normal 0.60-1.20 [facility] Comment on above: Performed By: #### C BC, CMP, ETOH #### [place] [address] [place] Dipstick and Microscopicon 0 10-02-2022 Appearance (U) Clear Normal Clear [facility] Comment on above: Order Comment: Name Collection Type:: Clean-Voided Midstream Performed By: #### U RDS, ADDONUAPLUS, CUU, UHCG #### [address] Bacteria,Urine 2+ High None Seen [facility] Comment on above: Order Comment: Name Collection Type:: Clean-Voided Midstream Performed By: #### U RDS, ADDONUAPLUS, CUU, UHCG #### [facility] [address] [place] [address] [place] Bilirubin,Urine Negative Normal Negative [facility] Comment on above: Order Comment: Name Collection Type:: Clean-Voided Midstream Performed By: #### U RDS, ADDONUAPLUS, CUU, UHCG #### [facility] [address] [place] [address] Color (U) Yellow Normal Yellow [facility] Comment on above: Order Comment: Name Collection Type:: Clean-Voided Midstream Performed By: #### U RDS, ADDONUAPLUS, CUU, UHCG #### [facility] [address] [place] [address] Glucose Ql (U) Normal Normal Normal [facility] Comment on above: Order Comment: Name Collection Type:: Clean-Voided Midstream Performed By: #### U RDS, ADDONUAPLUS, CUU, UHCG #### [facility] [address] [place] [address] [place] Hyaline Casts,Urine 0-8 Normal 0-8 [facility] Comment on above: Order Comment: Name Collection Type:: Clean-Voided Midstream Performed By: #### U RDS, ADDONUAPLUS, CUU, UHCG #### [facility] [address] [place] [address] [place] Ketones Ql (U) Negative Normal Negative [facility] Comment on above: Order Comment: Name Collection Type:: Clean-Voided Midstream Performed By: #### U RDS, ADDONUAPLUS, CUU, UHCG #### [facility] [address] [place] [address] [place] Leukocyte esterase Test strip Ql (U) 3+ High Negative [facility] Comment on above: Order Comment: Name Collection Type:: Clean-Voided Midstream Performed By: #### U RDS, ADDONUAPLUS, CUU, UHCG #### [facility] [address] [place] [address] [place] Nitrite,Urine Negative Normal Negative [facility] Comment on above: Order Comment: Name Collection Type:: Clean-Voided Midstream Performed By: #### U RDS, ADDONUAPLUS, CUU, UHCG #### [address] Occult Blood,Urine Negative Normal Negative [facility] Comment on above: Order Comment: Name Collection Type:: Clean-Voided Midstream Performed By: #### U RDS, ADDONUAPLUS, CUU, UHCG #### [address] pH (U) 6.5 [pH] Normal 5.0-9.0 [facility] Comment on above: Order Comment: Name Collection Type:: Clean-Voided Midstream Performed By: #### U RDS, ADDONUAPLUS, CUU, UHCG #### [address] Protein,Urine Negative Normal Negative [facility] Comment on above: Order Comment: Name Collection Type:: Clean-Voided Midstream Performed By: #### U RDS, ADDONUAPLUS, CUU, UHCG #### [address] RBC LM.HPF (Urine sed) [#/Area] 0 /[HPF] Normal 0-4 [facility] Comment on above: Order Comment: Name Collection Type:: Clean-Voided Midstream Performed By: #### U RDS, ADDONUAPLUS, CUU, UHCG #### [address] Specificy [place],Urine 1.021 Normal 1.001-1.030 [facility] Comment on above: Order Comment: Name Collection Type:: Clean-Voided Midstream Performed By: #### U RDS, ADDONUAPLUS, CUU, UHCG #### [address] Squamous Epithelial Cell,Urine 10-19 High 0-2 [facility] Comment on above: Order Comment: Name Collection Type:: Clean-Voided Midstream Performed By: #### U RDS, ADDONUAPLUS, CUU, UHCG #### [facility] [address] [place] [address] Urobilinogen,Urine Normal Normal Normal [facility] Comment on above: Order Comment: Name Collection Type:: Clean-Voided Midstream Performed By: #### U RDS, ADDONUAPLUS, CUU, UHCG #### [facility] [address] [place] [address] WBC,Urine 10-19 High 0-4 [facility] Comment on above: Order Comment: Name Collection Type:: Clean-Voided Midstream Performed By: #### U RDS, ADDONUAPLUS, CUU, UHCG #### [address] Drug Screen,Urineon 10-03-19 Amphetamine Screen,Urine Negative Normal Negative [facility] Comment on above: Performed By: #### U RDS, ADDONUAPLUS, CUU, UHCG #### [place] [address] [place] Barbiturate Screen,Urine Negative Normal Negative [facility] Comment on above: Performed By: #### U RDS, ADDONUAPLUS, CUU, UHCG #### [facility] [address] [place] [address] [place] Benzodiazepines Screen,Urine Negative Normal Negative [facility] Comment on above: Performed By: #### U RDS, ADDONUAPLUS, CUU, UHCG #### [facility] [address] [place] [address] [place] Cannabinoid Screen,Urine Negative Normal Negative [facility] Comment on above: Result Comment: Thes e are unconfirmed results and should not be used for legal purposes. Drug Cut-Off Concentration: AMPH 1000 ng/mL MIAH 200 ng/mL AYAN 200 ng/mL COCM 300 ng/mL OP 300 ng/mL PCP 25 ng/mL THC 20 ng/mL PERFORMED BY: [place] [address] PATHOLOGIST IT SUPPORT MANAGER ASHELY CAREY M.D. Performed By: #### U RDS, ADDONUAPLUS, CUU, UHCG #### [facility] [address] [place] [address] [place] Cocaine Screen,Urine Negative Normal Negative [facility] Comment on above: Performed By: #### U RDS, ADDONUAPLUS, CUU, UHCG #### [facility] [address] [place] [address] [place] Opiate Screen,Urine Negative Normal Negative [facility] Comment on above: Performed By: #### U RDS, ADDONUAPLUS, CUU, UHCG #### [address] Phencyclidine Screen,Urine Negative Normal Negative [facility] Comment on above: Performed By: #### U RDS, ADDONUAPLUS, CUU, UHCG #### [address] Erythrocyte distribution wid th [Ratio] by Automated countOrdered By: Jose Silverman on 10-02-2022 Erythrocyte distribution width (RBC) [Ratio] 15.8 % High 11.9-15.3 [facility] Comment on above: Performed By: #### C BC, CMP, ETOH #### [address] Erythrocytes [#/volume] in B lood by Automated countOrdered By: Jose Silverman on 10-02-2022 RBC (Bld) [#/Vol] 5.31 10*6/uL High 3.60-5.00 [facility] Comment on above: Performed By: #### C BC, CMP, ETOH #### [place] [address] [place] Ethanol [Mass/volume] in Ser um or PlasmaOrdered By: Jose Silverman on 10-02-2022 Ethanol [Mass/Vol] mg/dL Normal [facility] Comment on above: Performed By: #### C BC, CMP, ETOH #### [place] [address] [place] Ethanol [Mass/Vol] TNP [facility] Comment on above: Test not performed Ethyl Alcohol Profileon 09-08 Percent Ethanol Not performed Normal [facility] Comment on above: Result Comment: PERF ORMED BY: [place] [address] PATHOLOGIST IT SUPPORT MANAGER ASHELY CAREY M.D. Performed By: #### C BC, CMP, ETOH #### [facility] [address] [place] [id number] [place] Glucose [Mass/volume] in Ser um or PlasmaOrdered By: Jose Silverman on 10-02-2022 Glucose [Mass/Vol] 98 mg/dL Normal 70-100 [facility] Comment on above: ADA recommended refe rence rangeRandom Glucose Reference Range is dependent on time and content of last meal. Glucose of more than 200 mg/dL in a nonstressed, ambulatory subject supports the diagnosis of Diabetes Mellitus. Result Comment: [place] om Glucose Reference Range is dependent on time and content of last meal. Glucose of more than 200 mg/dL in a nonstressed, ambulatory subject supports the diagnosis of Diabetes Mellitus. ADA recommended reference range Performed By: #### C BC, CMP, ETOH #### [place] [id number] [place] HCG ( test) [place].rapi d Ql (U)Ordered By: Jose Silverman on 10-02-2022 HCG ( test) Ql (U) Negative [facility] HCG,Urineon 10-02-2022 Beta HCG ( test) Ql (U) Negative Normal [facility] Comment on above: Order Comment: Name Collection Type:: Clean-Voided Midstream Result Comment: PERF ORMED BY: [place] [address] PATHOLOGIST IT SUPPORT MANAGER ASHELY CAREY M.D. Performed By: #### U RDS, ADDONUAPLUS, CUU, UHCG #### [facility] [address] [place] [address] [place] Hematocrit [Volume Fraction] of Blood by Automated countOrdered By: Jose Silverman on 10-02-2022 Hematocrit (Bld) [Volume fraction] 41.7 % Normal 34.0-46.4 [facility] Comment on above: Performed By: #### C BC, CMP, ETOH #### [address] Hemoglobin [Mass/volume] in BloodOrdered By: Jose Silverman on 10-02-2022 Hemoglobin (Bld) [Mass/Vol] 13.3 g/dL Normal 11.8-15.4 [facility] Comment on above: Performed By: #### C BC, CMP, ETOH #### [address] Ketones Auto test strip (U) [Mass/Vol]Ordered By: Jose Silverman on 10-02-2022 Ketones (U) [Mass/Vol] Negative Negative [facility] - UrinalysisOrder ed By: Jose Silverman on 10-02-2022 Hyaline casts LM Ql (Urine sed) 0-8 [LPF] 0-8 [facility] Leukocytes [#/volume] correc ruby for nucleated erythrocytes in Blood by Automated counOrdered By: Jose Silverman on 10-02-2022 WBC corrected for nucl RBC Auto (Bld) [#/Vol] 12.9 10*3/uL 3.8-11.6 [facility] Leukocytes [#/volume] in Blo od by Automated countOrdered By: Jose Silverman on 10-02-2022 WBC (Bld) [#/Vol] 12.9 10*3/uL High 3.8-11.6 [facility] Comment on above: Performed By: #### C BC, CMP, ETOH #### [place] [address] [place] Lymphocytes [#/volume] in Bl ood by Automated countOrdered By: Jose Silverman on 10-02-2022 Lymphocytes (Bld) [#/Vol] 3.0 10*3/uL Normal 1.00-4.8 [facility] Comment on above: Performed By: #### C BC, CMP, ETOH #### [place] [address] [place] Lymphocytes/100 leukocytes i n Blood by Automated countOrdered By: Jose Silverman on 10-02-2022 Lymphocytes/100 WBC (Bld) 23.1 % Normal . [facility] Comment on above: Performed By: #### C BC, CMP, ETOH #### [address] [facility] [Entitic mass] by Automa ruby countOrdered By: Jose Silverman on 10-02-2022 MCH (RBC) [Entitic mass] 25.2 pg Normal 24.7-34.3 [facility] Comment on above: Performed By: #### C BC, CMP, ETOH #### [address] MCHC Auto (RBC) [Mass/Vol]Or dered By: Jose Silverman on 10-02-2022 MCHC (RBC) [Mass/Vol] 32.0 g/dL 32.0-35.0 [facility] MCV [Entitic volume] by Auto mated countOrdered By: Jose Silverman on 10-02-2022 MCV (RBC) [Entitic vol] 78.5 fL Low 80-100 [facility] Comment on above: Performed By: #### C BC, CMP, ETOH #### [address] Monocyte distribution width [Entitic volume] in Blood by AutomatedOrdered By: Jose Silverman on 10-02-2022 Monocyte distribution width Auto (Bld) [Entitic vol] 17.72 % 0.00-20.00 [facility] Neutrophils [#/volume] in Bl ood by Automated countOrdered By: Jose Silverman on 10-02-2022 Neutrophils (Bld) [#/Vol] 8.9 10*3/uL High 1.8-7.7 [facility] Comment on above: Performed By: #### C BC, CMP, ETOH #### [address] Nitrite Test strip Ql (U)Ord ered By: Jose Silverman on 10-02-2022 Nitrite Ql (U) Negative Negative [facility] No Panel InformationOrdered By: Jose Silverman on 10-02-2022 Estimated GFR (CKD-EPI) > 60.0 mL/Min [facility] Creatinine Clearance (Chem 107.48 [facility] Nucleated erythrocytes [Pres ence] in Blood by Automated countOrdered By: Jose Silverman on 10-02-2022 Nucleated RBC Auto Ql (Bld) 0.0 /100{WBC} 0-0.5 [facility] Opiates [Presence] in Urine by Screen methodOrdered By: Jose Silverman on 10-02-2022 Opiates Screen Ql (U) Negative Negative [facility] Phencyclidine Screen Ql (U)O rdered By: Jose Silverman on 10-02-2022 Phencyclidine Ql (U) Negative Negative [facility] Platelet mean volume [Entiti c volume] in Blood by Automated countOrdered By: Jose Silverman on 10-02-2022 Platelet mean volume (Bld) [Entitic vol] 7.7 fL Normal 6.3-10.7 [facility] Comment on above: Performed By: #### C BC, CMP, ETOH #### [facility] [address] [place] [address] Platelets [#/volume] in Bloo d by Automated countOrdered By: Jose Silverman on 10-02-2022 Platelets (Bld) [#/Vol] 342 10*3/uL Normal 150-450 [facility] Comment on above: Performed By: #### C BC, CMP, ETOH #### [facility] [address] [place] [address] Potassium [Moles/volume] in Serum or PlasmaOrdered By: Jose Silverman on 10-02-2022 Potassium [Moles/Vol] 3.8 mmol/L Normal 3.5-5.1 [facility] Comment on above: Performed By: #### C BC, CMP, ETOH #### [facility] [address] [place] [address] [place] Protein Auto test strip (U) [Mass/Vol]Ordered By: Jose Silverman on 10-02-2022 Protein (U) [Mass/Vol] Negative Negative [facility] Protein [Mass/volume] in Ser um or PlasmaOrdered By: Jose Silverman on 10-02-2022 Protein [Mass/Vol] 8.7 g/dL Normal 6.4-8.9 [facility] Comment on above: Performed By: #### C BC, CMP, ETOH #### [address] Serum globulin measurement b y calculation (mass/volume)Ordered By: Jose Silverman on 10-02-2022 Globulin (S) [Mass/Vol] 3.7 g/dL Normal [facility] Comment on above: Performed By: #### C BC, CMP, ETOH #### [address] Serum or plasma albumin/glob ulin mass ratioOrdered By: Jose Silverman on 10-02-2022 Albumin/Globulin [Mass ratio] 1.4 {ratio} Normal [facility] Comment on above: Performed By: #### C BC, CMP, ETOH #### [address] Serum or plasma anion gap de terminationOrdered By: Jose Silverman on 10-02-2022 Anion gap [Moles/Vol] 12.6 mmol/L Normal 6.0-15.0 [facility] Comment on above: Performed By: #### C BC, CMP, ETOH #### [address] Sodium [Moles/volume] in Ser um or PlasmaOrdered By: Jose Silverman on 10-02-2022 Sodium [Moles/Vol] 137 mmol/L Normal 136-145 [facility] Comment on above: Performed By: #### C BC, CMP, ETOH #### [address] Specific gravity Auto test s trip (U) [Rel density]Ordered By: Jose Silverman on 10-02-2022 Specific gravity (U) [Rel density] 1.021 1.001-1.030 [facility] Squamous epithelial cells de tection in urine sediment by light microscopyOrdered By: Jose Silverman on 10-02-2022 Epithelial cells.squamous LM Ql (Urine sed) 10-19 [HPF] 0-2 [facility] Urea nitrogen [Mass/volume] in Serum or PlasmaOrdered By: Jose Silverman on 10-02-2022 Urea nitrogen [Mass/Vol] 18 mg/dL Normal 7-25 [facility] Comment on above: Performed By: #### C BC, CMP, ETOH #### [facility] [address] [place] [address] [place] Urine Cultureon 10-02-2022 Bacteria identified Cx Nom (U) ORGANISM: Strep agalactiae - (group b) (O:STRAGA) [place] Count 50,000 PERFORMED BY: [place] [address] PATHOLOGIST IT SUPPORT MANAGER ASHELY CAREY M.D. Normal [facility] Comment on above: Performed By: #### U RDS, ADDONUAPLUS, CUU, UHCG #### [facility] [address] [place] [address] Urine bacteria detection by automated methodOrdered By: Jose Silverman on 10-02-2022 Bacteria Auto Ql (U) 2+ None Seen [facility] Urine clarity by refractomet ry automatedOrdered By: Jose Silverman on 10-02-2022 Clarity Refractometry automated (U) Clear Clear [facility] Urine glucose measurement by automated test strip (mass/volume)Ordered By: Jose Silverman on 10-02-2022 Glucose Auto test strip (U) [Mass/Vol] Normal mg/dL Normal [facility] Urine hemoglobin detection b y automated test stripOrdered By: Jose Silverman on 10-02-2022 Hemoglobin Auto test strip Ql (U) Negative Negative [facility] Urine leukocyte esterase det ection by automated test stripOrdered By: Jose Silverman on 10-02-2022 Leukocyte esterase Auto test strip Ql (U) 3+ Negative [facility] Urobilinogen Auto test strip (U) [Mass/Vol]Ordered By: Jose Silverman on 10-02-2022 Urobilinogen (U) [Mass/Vol] Normal mg/dL Normal [facility] pH Auto test strip (U)Ordere d By: Jose Silverman on 10-02-2022 pH (U) 6.5 [pH] 5.0-9.0 [facility] Quick Strepon 09-25-2022 S. pyogenes Org specific cx Ql (Throat) Negative [employer] Other Quick Strep [employer] Other CHEMISTRYOrdered By: SYSTEM SYSTEM on 09-06-2022 [...] AM) Normal Negative [facility] UA Auto SS [place].plasma/[place].R BC (Bld) [Mass ratio] >30 /HPF Invalid [...] AM) Invalid Interpretation Code 1.005 - 1.030 [facility] UA Auto SS UA Spec Desc Clean Catch (09/06/22 11:19 AM) Normal [facility] UA Auto SS Urobilinogen Qn (U) [id number] {Georgina'U}/dL Normal 0.0 - 1.0 EU/dL FT UA Auto SS WBC Auto Ql (U) Negative (09/06/22 11:19 AM) Normal Negative [facility] UA Auto SS WBC LM.HPF (Urine sed) [#/Area] 0-5 /HPF Normal 0-5/HPF [facility] UA Auto SS BLOOD BANKOrdered By: John [...] PM) Normal Negative [facility] UA Auto SS [place].plasma/[place].R BC (Bld) [Mass ratio] 0-3 /HPF Normal [...] [facility] UA Auto SS Urobilinogen Qn (U) 0.9088351 {[place]ina'U}/dL Normal 0.0 - 1.0 EU/dL [facility] UA Auto SS WBC Auto Ql (U) Negative (08/14/22 7:29 PM) Normal Negative [facility] UA Auto SS WBC LM.HPF (Urine sed) [#/Area] 0-5 /HPF Normal 0-5/HPF [facility] UA Auto SS CHLAMYDIA/GONOCOCCUS ALFREDO (SW AB/URINE/PAPon 07-15-2022 Chlamydia trachomatis, ALFREDO Negative Normal Negative [facility] Comment on above: Performed By: #### C T/NGNA #### [facility] [address] [address] [address] Cyril Hendricks Neisseria gonorrhoeae, ALFREDO Negative Normal Negative [facility] Comment on above: Performed By: #### C T/NGNA #### [facility] [address] [address] [address] Cyril Hendricks VAGINITIS/VAGINOSIS DNA PROB Maurice 07-13-2022 Krista species Negative Normal Negative [facility] Comment on above: Performed By: #### U MICRO, UACSIND #### [facility] [address] [address] [address] Cyril Hendricks Gardnerella vaginalis Positive Abnormal Negative [facility] Comment on above: Performed By: #### U MICRO, UACSIND #### [facility] [address] [address] [address] Cyril Hendricks Trichomonas vaginalis Negative Normal Negative [facility] Comment on above: Performed By: #### U MICRO, UACSIND #### [facility] [address] [address] [address] Cyril Hendricks COVID/FLU RT-PCRon SARS-CoV-2 (COVID-19) RNA ALFREDO+probe Ql (Unsp spec) Negative [employer] Other COVID/FLU RT-PCR Negative [employer] Other Quick Strepon 06-24-2022 S. pyogenes Org specific cx Ql (Throat) Negative [employer] Other Quick Strep [employer] Other CBC AUTO DIFFon 01-08-2022 BASO # 0.1 103/ul Normal 0.0-0.1 [facility] Comment on above: Performed By: #### C BC #### [facility] [address] [address] [address] Cyril Hendricks Basophils/100 WBC (Bld) 0.4 % Normal 0.2-2.0 [facility] Comment on above: Performed By: #### C BC #### [facility] [address] [address] [address] Cyril Hendricks EO # 0.1 103/ul Normal 0.0-0.7 [facility] Comment on above: Performed By: #### C BC #### [facility] [address] [place] [address] Dr. Cyril Hendricks Eosinophils/100 WBC (Bld) 0.9 % Normal 0.9-7.0 [facility] Comment on above: Performed By: #### C BC #### [facility] [address] [address] [address] Cyril Hendricks Erythrocyte distribution width (RBC) [Ratio] 12.3 % Normal 11.0-15.0 [facility] Comment on above: Performed By: #### C BC #### [facility] [address] [place] [address] Dr. Cyril Hendricks Hematocrit (Bld) [Volume fraction] 30.0 % Critically low 36.0-48.0 [facility] Comment on above: Performed By: #### C BC #### [facility] [address] [place] [address] Dr. Cyril Hendricks Hemoglobin (Bld) [Mass/Vol] 10.2 g/dL Critically low 12.0-16.0 [facility] Comment on above: Performed By: #### C BC #### [facility] [address] [place] [address] Dr. Cyril Hendricks IG # 0.05 10e3/ul Critically high 0.00-0.03 [facility] Comment on above: Performed By: #### C BC #### [facility] [address] [place] [address] Dr. Cyril Hendricks IG % 0.4 % Normal 0.0-0.5 [facility] Comment on above: Performed By: #### C BC #### [facility] [address] [place] [address] Dr. Cyril Hendricks LYMPH # 2.8 103/ul Normal 1.2-3.8 [facility] Comment on above: Performed By: #### C BC #### [facility] [address] [place] [address] Dr. Cyril Hendricks Lymphocytes/100 WBC (Bld) 19.7 % Critically low 20.5-60.0 [facility] Comment on above: Performed By: #### C BC #### [facility] [address] [place] [address] Dr. Cyril Hendricks MANUAL DIFF REQ NO Normal [facility] Comment on above: Performed By: #### C BC #### [facility] [address] [place] [address] Dr. Cyril Hendricks MCH (RBC) [Entitic mass] 30.6 pg Normal 26.7-34.0 [facility] Comment on above: Performed By: #### C BC #### [facility] [address] [place] [address] Dr. Cyril Hendricks MCHC (RBC) [Mass/Vol] 34.0 g/dL Normal 29.9-35.2 [facility] Comment on above: Performed By: #### C BC #### [facility] [address] [place] [address] Dr. Cyril Hendricks MCV (RBC) [Entitic vol] 90.1 fL Normal 81.0-99.0 [facility] Comment on above: Performed By: #### C BC #### [facility] [address] [place] [address] Dr. Cyril Hendricks MONO # 0.8 103/ul Normal 0.3-0.8 [facility] Comment on above: Performed By: #### C BC #### [facility] [address] [place] [address] Dr. Cyril Hendricks Monocytes/100 WBC (Bld) 5.9 % Normal 1.7-12.0 [facility] Comment on above: Performed By: #### C BC #### [facility] [address] [place] [address] Dr. Cyril Hendricks NEUT # 10.3 103/ul Critically high 1.4-6.5 [facility] Comment on above: Performed By: #### C BC #### [facility] [address] [place] [address] Dr. Cyril Hendricks Neutrophils/100 WBC (Bld) 72.7 % Normal 43.0-75.0 [facility] Comment on above: Performed By: #### C BC #### [facility] [address] [place] [address] Dr. Cyril Hendricks Platelet mean volume (Bld) [Entitic vol] 9.8 fL Normal 9.5-13.5 [facility] Comment on above: Performed By: #### C BC #### [facility] [address] [place] [address] Dr. Cyril Hendricks PLT 207 103/ul Normal 150-450 [facility] Comment on above: Performed By: #### C BC #### [facility] [address] [place] [address] Dr. Cyril Hendricks RBC 3.33 106/ul Critically low 4.20-5.40 [facility] Comment on above: Performed By: #### C BC #### [facility] [address] [place] [address] Dr. Cyril Hendricks WBC 14.2 103/ul Critically high 4.0-11.0 [facility] Comment on above: Performed By: #### C BC #### [facility] [address] [place] [address] Dr. Cyril Hendricks CBC AUTO DIFFon 01-07-2022 BASO # 0.1 103/ul Normal 0.0-0.1 [facility] Comment on above: Performed By: #### U MICRO, UACSIND #### [facility] [address] [place] [address] Dr. Cyril Hendricks Basophils/100 WBC (Bld) 0.5 % Normal 0.2-2.0 [facility] Comment on above: Performed By: #### U MICRO, UACSIND #### [facility] [address] [place] [address] Dr. Cyril Hendricks EO # 0.1 103/ul Normal 0.0-0.7 [facility] Comment on above: Performed By: #### U MICRO, UACSIND #### [facility] [address] [place] [address] Dr. Cyril Hendricks Eosinophils/100 WBC (Bld) 0.9 % Normal 0.9-7.0 [facility] Comment on above: Performed By: #### U MICRO, UACSIND #### [facility] [address] [place] [address] Dr. Cyril Hendricks Erythrocyte distribution width (RBC) [Ratio] 12.4 % Normal 11.0-15.0 [facility] Comment on above: Performed By: #### U MICRO, UACSIND #### [facility] [address] [place] [address] Dr. Cyril Hendricks Hematocrit (Bld) [Volume fraction] 34.3 % Critically low 36.0-48.0 [facility] Comment on above: Performed By: #### U MICRO, UACSIND #### [facility] [address] [place] [address] Dr. Cyril Hendricks Hemoglobin (Bld) [Mass/Vol] 11.6 g/dL Critically low 12.0-16.0 [facility] Comment on above: Performed By: #### U MICRO, UACSIND #### [facility] [address] [place] [address] Dr. Cyril Hendricks IG # 0.06 10e3/ul Critically high 0.00-0.03 [facility] Comment on above: Performed By: #### U MICRO, UACSIND #### [facility] [address] [place] [address] Dr. Cyril Hendricks IG % 0.4 % Normal 0.0-0.5 [facility] Comment on above: Performed By: #### U MICRO, UACSIND #### [facility] [address] [address] [address] Cyril Hendricks LYMPH # 3.1 103/ul Normal 1.2-3.8 [facility] Comment on above: Performed By: #### U MICRO, UACSIND #### [facility] [address] [place] [address] Dr. Cyril Hendricks Lymphocytes/100 WBC (Bld) 20.4 % Critically low 20.5-60.0 [facility] Comment on above: Performed By: #### U MICRO, UACSIND #### [facility] [address] [place] [address] Dr. Cyril Hendricks MANUAL DIFF REQ NO Normal [facility] Comment on above: Performed By: #### U MICRO, UACSIND #### [facility] [address] [place] [address] Dr. Cyril Hendricks MCH (RBC) [Entitic mass] 30.6 pg Normal 26.7-34.0 [facility] Comment on above: Performed By: #### U MICRO, UACSIND #### [facility] [address] [place] [address] Dr. Cyril Hendricks MCHC (RBC) [Mass/Vol] 33.8 g/dL Normal 29.9-35.2 [facility] Comment on above: Performed By: #### U MICRO, UACSIND #### [facility] [address] [place] [address] Dr. Cyril Hendricks MCV (RBC) [Entitic vol] 90.5 fL Normal 81.0-99.0 [facility] Comment on above: Performed By: #### U MICRO, UACSIND #### [facility] [address] [place] [address] Dr. Cyril Hendricks MONO # 0.9 103/ul Critically high 0.3-0.8 [facility] Comment on above: Performed By: #### U MICRO, UACSIND #### [facility] [address] [place] [address] Dr. Cyril Hendricks Monocytes/100 WBC (Bld) 6.2 % Normal 1.7-12.0 [facility] Comment on above: Performed By: #### U MICRO, UACSIND #### [facility] [address] [address] [address] Cyril Hendricks NEUT # 10.9 103/ul Critically high 1.4-6.5 [facility] Comment on above: Performed By: #### U MICRO, UACSIND #### [facility] [address] [address] [address] Cyril Hendricks Neutrophils/100 WBC (Bld) 71.6 % Normal 43.0-75.0 [facility] Comment on above: Performed By: #### U MICRO, UACSIND #### [facility] [address] [place] [address] Dr. Cyril Hendricks Platelet mean volume (Bld) [Entitic vol] 11.1 fL Normal 9.5-13.5 [facility] Comment on above: Performed By: #### U MICRO, UACSIND #### [facility] [address] [place] [address] Dr. Cyril Hendricks PLT 240 103/ul Normal 150-450 [facility] Comment on above: Performed By: #### U MICRO, UACSIND #### [facility] [address] [place] [address] Dr. Cyril Hendricks RBC 3.79 106/ul Critically low 4.20-5.40 [facility] Comment on above: Performed By: #### U MICRO, UACSIND #### [facility] [address] [place] [address] Dr. Cyril Hendricks WBC 15.3 103/ul Critically high 4.0-11.0 [facility] Comment on above: Performed By: #### U MICRO, UACSIND #### [facility] [address] [place] [address] Dr. Cyril Hendricks [facility]on SARS-CoV-2 (COVID-19) RNA ALFREDO+probe Ql (Unsp spec) Not detected Normal NOT DETECTED [facility] Comment on above: Result Comment: When diagnostic [...] for this test is supported by the [place] of Health and Human Service's declaration that [...] used). Performed By: #### H CVPCRR #### [facility] [address] [place] [address] Dr. Cyril Hendricks DRUG SCREEN RAPID (URINE)on 01-07-2022 AMP Negative Normal NEGATIVE [facility] Comment on above: Performed By: #### U MICRO, UACSIND #### [facility] [address] [place] [address] Dr. Cyril Hendricks BAR Negative Normal NEGATIVE [facility] Comment on above: Performed By: #### U MICRO, UACSIND #### [facility] [address] [place] [address] Dr. Cyrli Hendricks BUP Negative Normal NEGATIVE [facility] Comment on above: Performed By: #### U MICRO, UACSIND #### [facility] [address] [place] [address] Dr. Cyril Hendricks BZO Negative Normal NEGATIVE [facility] Comment on above: Performed By: #### U MICRO, UACSIND #### [facility] [address] [place] [address] Dr. Cyril Hendricks DARIN Negative Normal NEGATIVE [facility] Comment on above: Performed By: #### U MICRO, UACSIND #### [facility] [address] [place] [address] Dr. Cyril Hendricks CUT-OFFS SEE BELOW Normal [facility] Comment on above: Result Comment: AMP [...] Performed By: #### U MICRO, UACSIND #### [facility] [address] [place] [address] Dr. Cyril Hendricks DRUG CUT HEADER DRUG CLASS TEST SYSTEM CUT-OFF CONCENTRATIONS ARE FOLLOWS: Normal [facility] Comment on above: Performed By: #### U MICRO, UACSIND #### [facility] [address] [place] [address] Dr. Cyril Hendricks mAMP Negative Normal NEGATIVE [facility] Comment on above: Performed By: #### U MICRO, UACSIND #### [facility] [address] [place] [address] Dr. Cyril Hendricks MTD Negative Normal NEGATIVE [facility] Comment on above: Performed By: #### U MICRO, UACSIND #### [facility] [address] [address] [address] Cyril Hendricks OPI Negative Normal NEGATIVE [facility] Comment on above: Performed By: #### U MICRO, UACSIND #### [facility] [address] [address] [address] Cyril Hendricks OXY Negative Normal NEGATIVE [facility] Comment on above: Performed By: #### U MICRO, UACSIND #### [facility] [address] [address] [address] Cyril Hendricks PCP Negative Normal NEGATIVE [facility] Comment on above: Performed By: #### U MICRO, UACSIND #### [facility] [address] [place] [address] Dr. Cyril Hendricks PPX Negative Normal NEGATIVE [facility] Comment on above: Performed By: #### U MICRO, UACSIND #### [facility] [address] [place] [address] Dr. Cyril Hendricks TCA Negative Normal NEGATIVE [facility] Comment on above: Performed By: #### U MICRO, UACSIND #### [facility] [address] [place] [address] Dr. Cyril Hendricks THC Negative Normal NEGATIVE [facility] Comment on above: Performed By: #### U MICRO, UACSIND #### [facility] [address] [place] [address] Dr. Cyril Hendricks TYPE AND SCREENon 01-07-2022 TYPE AND SCREEN Negative Normal [facility] Comment on above: Performed By: #### H CVPCRR #### [facility] [address] [place] [address] Dr. Cyril Hendricks CULTURE URINEon 12-29-2021 CULTURE URINE Culture Observations: NO GROWTH. Normal [facility] Comment on above: Performed By: #### U RCX #### [facility] [address] [place] [address] Dr. Cyril Hendricks UA (CLEAN/CATCH) CAPACITOR PACK PRESS OPERATOR/MICRO I F IND.on 12-29-2021 Bilirubin Ql (U) Negative Normal NEGATIVE [facility] Comment on above: Performed By: #### U MICRO, UACSIND #### [facility] [address] [place] [address] Dr. Cyril Hendricks Clarity (U) SL CLOUDY Abnormal CLEAR [facility] Comment on above: Performed By: #### U MICRO, UACSIND #### [facility] [address] [place] [address] Dr. Cyril Hendricks Color (U) LT. YELLOW Normal YELLOW [facility] Comment on above: Performed By: #### U MICRO, UACSIND #### [facility] [address] [place] [address] Dr. Cyril Hendricks Glucose Ql (U) Negative Normal NEGATIVE [facility] Comment on above: Performed By: #### U MICRO, UACSIND #### [facility] [address] [address] [address] Cyril Hendricks Hemoglobin Ql (U) Negative Normal NEGATIVE [facility] Comment on above: Performed By: #### U MICRO, UACSIND #### [facility] [address] [address] [address] Cyril Hendricks Ketones Ql (U) Negative Normal NEGATIVE [facility] Comment on above: Performed By: #### U MICRO, UACSIND #### [facility] [address] [address] [address] Cyril Hendricks LEUKOCYTES LARGE Abnormal NEGATIVE [facility] Comment on above: Performed By: #### U MICRO, UACSIND #### [facility] [address] [place] [address] Dr. Cyril Hendricks Nitrite Ql (U) Negative Normal NEGATIVE [facility] Comment on above: Performed By: #### U MICRO, UACSIND #### [facility] [address] [place] [address] Dr. Cyril Hendricks pH (U) 6.5 [pH] Normal 5-9 [facility] Comment on above: Performed By: #### U MICRO, UACSIND #### [facility] [address] [place] [address] Dr. Cyril Hendricks SPEC GRAVITY 1.010 Normal 1.005-<=1.02 5 [facility] [facility] Comment on above: Performed By: #### U MICRO, UACSIND #### [facility] [address] [place] [address] Dr. Cyril Hendricks UA PROTEIN Negative Normal NEGATIVE/ TRACE [facility] Comment on above: Performed By: #### U MICRO, UACSIND #### [facility] [address] [place] [address] Dr. Cyril Hendricks UR MICRO IND INDICATED Normal [facility] Comment on above: Performed By: #### U MICRO, UACSIND #### [facility] [address] [place] [address] Dr. Cyril Hendricks Urobilinogen Qn (U) 0.2 {Georgina'U}/dL Normal 0.2 - 1. 0 [facility] Comment on above: Performed By: #### U MICRO, UACSIND #### [facility] [address] [place] [address] Dr. Cyril Hendricks URINE MICROSCOPIC ONLYon BACTERIA SMALL Abnormal NONE SEEN [facility] Comment on above: Performed By: #### U MICRO, UACSIND #### [facility] [address] [address] [address] Cyril Hendricks Bacteria identified Cx Nom (U) INDICATED Normal [facility] Comment on above: Performed By: #### U MICRO, UACSIND #### [facility] [address] [place] [address] Dr. Cyril Hendricks CAST NONE SEEN Normal NONE SEEN [facility] Comment on above: Performed By: #### U MICRO, UACSIND #### [facility] [address] [place] [address] Dr. Cyril Hendricks Crystals LM Nom (Urine sed) NONE SEEN Normal NONE SEEN [facility] Comment on above: Performed By: #### U MICRO, UACSIND #### [facility] [address] [place] [address] Dr. Cyril Hendricks Epithelial cells LM Ql (Urine sed) MANY Abnormal NONE SEEN /RARE [facility] Comment on above: Performed By: #### U MICRO, UACSIND #### [facility] [address] [place] [address] Dr. Cyril Hendricks MUCOUS NONE SEEN Normal NONE SEEN [facility] Comment on above: Performed By: #### U MICRO, UACSIND #### [facility] [address] [place] [address] Dr. Cyril Hendricks RBC 0-2 Normal 0-2 [facility] Comment on above: Performed By: #### U MICRO, UACSIND #### [facility] [address] [place] [address] Dr. Cyril Hendricks WBC 10-20 Abnormal NONE SEEN [facility] Comment on above: Performed By: #### U MICRO, UACSIND #### [facility] [address], [place] [address] Dr. Cyril Hendricks GROUP B STREP CULTUREon 12-07 S. agalactiae Ag Ql (Unsp spec) Culture Observations: NEGATIVE FOR GROUP B STREPTOCOCCUS. Normal [facility] Comment on above: Performed By: #### G BSCX #### [facility] [address], [place] [address] Dr. Cyril Hendricks SSAon 12-13-2021 SSA <0.3 Normal <7.0 [facility] Comment on above: Result Comment: Reference Range: <7.0 Negative 7.0-10.0 Equivocal >10.0 Positive Performed By: #### S SARO, TSH, FT4, SSBLA #### [facility] [employer] [address] [place] [id number] Movie Editor: Homer Hoffman MD SSBon 12-13-2021 SSB <0.3 Normal <7.0 [facility] Comment on above: Result Comment: Reference Range: <7.0 Negative 7.0-10.0 Equivocal >10.0 Positive Performed By: #### S SARO, TSH, FT4, SSBLA #### [facility] [address] [place] [address] [id number] Movie Editor: Homer Hoffman MD No Panel Informationon 12-[address] [facility] T4, Freeon 12-12-2021 Thyroxine, Free 0.98 ng/dL 0.93 - 1.70 ng/dL [facility] TSHon 12-12-2021 TSH Qn 4.35 m[IU]/L [facility] Thyroid Stim. Horm.on 2021 Thyroid Stim. Horm. 4.35 uIU/mL Normal 0.30-5.00 [facility] Comment on above: Performed By: #### S SARO, TSH, FT4, SSBLA #### [facility] [address] [place] [id number] Movie Editor: Homer Hoffman MD Thyroxine, Freeon 12-12-2021 Thyroxine, Free 0.98 ng/dL Normal 0.93-1.70 [facility] Comment on above: Performed By: #### S SARO, TSH, FT4, SSBLA #### [facility] [employer] [address] [place] [address] Movie Editor: Homer Hoffman MD US PREG BIOPHY W [...] by: SOFIA KABA Date: 2021-11-27 13:55 Normal [facility] COVID + FLU Quick Testingon 11-13-2021 SARS-CoV-2 (COVID-19) RNA ALFREDO+probe Ql (Unsp spec) Negative [facility] [employer] Other COVID + FLU Quick Testing Negative [facility] [employer] Other GLUCOSE - 1HRon 10-23-2021 Glucose [Mass/Vol] 83 mg/dL Normal 74-[address] [facility] Comment on above: Performed By: #### G LU1HR #### [facility] [address] [place] [address] Dr. Cyril Hendricks CHLAMYDIA/GONOCOCCUS ALFREDO ( AB/URINE/PAPon 10-05-2021 Chlamydia trachomatis, ALFREDO Negative Normal Negative [facility] Comment on above: Performed By: #### C T/NGNA #### [facility] [address] [place] [address] Dr. Cyril Hendricks Neisseria gonorrhoeae, ALFREDO Negative Normal Negative [facility] Comment on above: Performed By: #### C T/NGNA #### [facility] [address] [place] [address] Dr. Cyril Hendricks VAGINITIS/VAGINOSIS DNA PROB Maurice 10-04-2021 Krista species Positive Abnormal Negative [facility] Comment on above: Performed By: #### H CVPCRR #### [facility] [address] [place] [address] Dr. Cyril Hendricks Gardnerella vaginalis Negative Normal Negative [facility] Comment on above: Performed By: #### H CVPCRR #### [facility] [address] [place] [address] Dr. Cyril Hendricks Trichomonas vaginalis Negative Normal Negative [facility] Comment on above: Performed By: #### H CVPCRR #### [facility] [address] [place] [address] Dr. Cyril Hendricks HEP B SURFACE ANTIGEN SCREEN on 10-03-2021 HBsAg Screen Negative Normal Negative [facility] Comment on above: Performed By: #### H CVPCRR #### [facility] [address] [place] [address] Dr. Cyril Hendricks HEPATITIS C VIRUS AB W/ REFL EX QUANTon 10-03-2021 HCV AB <0.1 Normal 0.0-0.9 [facility] Comment on above: Performed By: #### H CVPCRR #### [facility] [address] [place] [address] Dr. Cyril Hendricks Interpretation: Comment Normal [facility] Comment on above: Result Comment: Nega tive Not infected with HCV, unless recent infection is suspected or other evidence exists to indicate HCV infection. Performed By: #### H CVPCRR #### [facility] [address] [place] [address] Dr. Cyril Hendricks HIV 1 AND 2 WITH REFLEXon HIV Screen 4th Generation wRfx Non-Reactive Normal Non Reactive [facility] Comment on above: Result Comment: HIV Negative HIV-1/HIV-2 antibodies and HIV-1 p24 antigen were NOT detected. There is no laboratory evidence of HIV infection. Performed By: #### H IV12 #### [facility] [address] [place] [address] Dr. Cyril Hendricks RPR QUANTon 10-03-2021 Rapid Plasma Reagin, Quant Non-Reactive Normal NonRea<1:1 [facility] Comment on above: Result Comment: Juliette brito Note: This test does not meet current guidelines for screening and diagnosis of syphilis. This test is intended for following treatment response in patients being treated for syphilis infection. To screen for syphilis infection, a reflex cascade that includes both RPR and a treponema-specific assay should be utilized, such as Treponema pallidum (Syphilis) Screening [place] ([id number]) or Rapid Plasma Reagin (RPR) Test With Reflex to Quantitative RPR and Confirmatory Treponema pallidum Antibodies ([id number]). Performed By: #### U MICRO, UACSIND #### [facility] [address] [place] [address] Dr. Cyril Hendricks RUBELLA AB IGGon 10-03-2021 Rubella Antibodies, IgG <0.90 Critically low Immune > 0.99 [facility] Comment on above: Result Comment: Non- immune <0.90 Equivocal 0.90 - 0.99 Immune >0.99 Performed By: #### U MICRO, UACSIND #### [facility] [address] [place] [address] Dr. Cyril Hendricks CBC AUTO DIFFon 10-02-2021 BASO # 0.1 103/ul Normal 0.0-0.1 [facility] Comment on above: Performed By: #### U MICRO, UACSIND #### [facility] [address] [place] [address] Dr. Cyril Hendricks Basophils/100 WBC (Bld) 0.4 % Normal 0.2-2.0 [facility] Comment on above: Performed By: #### U MICRO, UACSIND #### [facility] [address] [place] [address] Dr. Cyril Hendricks EO # 0.1 103/ul Normal 0.0-0.7 [facility] Comment on above: Performed By: #### U MICRO, UACSIND #### [facility] [address] [place] [address] Dr. Cyril Hendricks Eosinophils/100 WBC (Bld) 1.1 % Normal 0.9-7.0 [facility] Comment on above: Performed By: #### U MICRO, UACSIND #### [facility] [address] [place] [address] Dr. Cyril Hendricks Erythrocyte distribution width (RBC) [Ratio] 13.5 % Normal 11.0-15.0 [facility] Comment on above: Performed By: #### U MICRO, UACSIND #### [facility] [address] [place] [address] Dr. Cyril Hendricks Hematocrit (Bld) [Volume fraction] 34.5 % Critically low 36.0-48.0 [facility] Comment on above: Performed By: #### U MICRO, UACSIND #### [facility] [address] [place] [address] Dr. Cyril Hendricks Hemoglobin (Bld) [Mass/Vol] 12.0 g/dL Normal 12.0-16.0 [facility] Comment on above: Performed By: #### U MICRO, UACSIND #### [facility] [address] [place] [address] Dr. Cyril Hendricks IG # 0.04 10e3/ul Critically high 0.00-0.03 [facility] Comment on above: Performed By: #### U MICRO, UACSIND #### [facility] [address] [place] [address] Dr. Cyril Hendricks IG % 0.3 % Normal 0.0-0.5 [facility] Comment on above: Performed By: #### U MICRO, UACSIND #### [facility] [address] [place] [address] Dr. Cyril Hendricks LYMPH # 2.6 103/ul Normal 1.2-3.8 [facility] Comment on above: Performed By: #### U MICRO, UACSIND #### [facility] [address] [place] [address] Dr. Cyril Hendricks Lymphocytes/100 WBC (Bld) 21.3 % Normal 20.5-60.0 [facility] Comment on above: Performed By: #### U MICRO, UACSIND #### [facility] [address] [address] [address] Cyril Hendricks MANUAL DIFF REQ NO Normal [facility] Comment on above: Performed By: #### U MICRO, UACSIND #### [facility] [address] [address] [address] Cyril Hendricks MCH (RBC) [Entitic mass] 32.5 pg Normal 26.7-34.0 [facility] Comment on above: Performed By: #### U MICRO, UACSIND #### [facility] [address] [place] [address] Dr. Cyril Hendricks MCHC (RBC) [Mass/Vol] 34.8 g/dL Normal 29.9-35.2 [facility] Comment on above: Performed By: #### U MICRO, UACSIND #### [facility] [address] [place] [address] Dr. Cyril Hendricks MCV (RBC) [Entitic vol] 93.5 fL Normal 81.0-99.0 [facility] Comment on above: Performed By: #### U MICRO, UACSIND #### [facility] [address] [place] [address] Dr. Cyril Hendricks MONO # 0.8 103/ul Normal 0.3-0.8 [facility] Comment on above: Performed By: #### U MICRO, UACSIND #### [facility] [address] [place] [address] Dr. Cyril Hendricks Monocytes/100 WBC (Bld) 6.2 % Normal 1.7-12.0 [facility] Comment on above: Performed By: #### U MICRO, UACSIND #### [facility] [address] [place] [address] Dr. Cyril Hendricks NEUT # 8.6 103/ul Critically high 1.4-6.5 [facility] Comment on above: Performed By: #### U MICRO, UACSIND #### [facility] [address] [place] [address] Dr. Cyril Hendricks Neutrophils/100 WBC (Bld) 70.7 % Normal 43.0-75.0 [facility] Comment on above: Performed By: #### U MICRO, UACSIND #### [facility] [address] [address] [address] Cyril Hendricks Platelet mean volume (Bld) [Entitic vol] 9.1 fL Critically low 9.5-13.5 [facility] Comment on above: Performed By: #### U MICRO, UACSIND #### [facility] [address] [address] [address] Cyril Hendricks PLT 257 103/ul Normal 150-450 [facility] Comment on above: Performed By: #### U MICRO, UACSIND #### [facility] [address] [address] [address] Cyril Hendricks RBC 3.69 106/ul Critically low 4.20-5.40 [facility] Comment on above: Performed By: #### U MICRO, UACSIND #### [facility] [address] [address] [address] Cyril Hendricks WBC 12.2 103/ul Critically high 4.0-11.0 [facility] Comment on above: Performed By: #### U MICRO, UACSIND #### [facility] [address] [place] [address] Dr. Cyril Hendricks CULTURE URINEon 10-02-2021 CULTURE URINE Culture Observations: MODERATE GROWTH OF MIXED GENITAL DRAGAN. NO POTENTIAL PATHOGENS SEEN. Normal [facility] Comment on above: Performed By: #### H CVPCRR #### [facility] [address] [place] [address] Dr. Cyril Hendricks GLYCOHEMOGLOBIN A1Con 2021 ADA RECOMMENDATION SEE BELOW Normal [facility] Comment on above: Result Comment: ADA RECOMMENDED LIMIT 4.0 - 6.0 ADA THERAPEUTIC TARGET < 7.0 ACTION SUGGESTED > 7.0 Performed By: #### H CVPCRR #### [facility] [address] [place] [address] Dr. Cyril Hendricks Glucose [Mass/Vol] 80 mg/dL Normal [facility] Comment on above: Performed By: #### H CVPCRR #### [facility] [address], [place] [address] Dr. Cyril Hendricks HbA1c (Bld) [Mass fraction] 4.4 % Critically low 4.5-6.2 [facility] Comment on above: Performed By: #### H CVPCRR #### [facility] [address], [place] [address] Dr. Cyril Hendricks TYPE AND SCREENon 10-02-2021 TYPE AND SCREEN Negative Normal [facility] Comment on above: Performed By: #### H CVPCRR #### [facility] [address] [place], [place] [address] Dr. Cyril Hendricks US PREG PLACENTAon 2 [...] SOFIA KABA Date: 2021-10-02 10:47 Normal [facility] US PREG ANATOMY SINGLEon US PREG ANATOMY [...] (44% by ultrasound, 29% by expected) FL/AC: [id number] FL/BPD: 0.588785 HC/AC: 1.452269 GESTATIONAL AGE: Age by EDC: 21 weeks, 3 days NOY by EDC: 01/12/2022 Age by current US: 21 weeks, 1 day NOY by current US: 01/14/2022 IMPRESSION: 1. Single live intrauterine with growth detailed above. 2. Posterior, low-lying placenta. Electronically authenticated by: AMRS FRANKEL Date: 2021-09-04 16:30 Normal [facility] Vital Signs Date Time Vital Sign Value Performing Clinician Facility 02-03-2024 09:23-0400 Body temperature 97.88 [degF] Siva Schulte [facility] 02-03-2024 09:23-0400 Diastolic blood pressure 70 mm[Hg] Siva Schulte [facility] 02-03-2024 09:23-0400 Heart rate 85 /min Siva Schulte [facility] 02-03-2024 09:23-0400 Respiratory rate 18 /min Siva Schulte [facility] 02-03-2024 09:23-0400 SaO2% (BldA) [Mass fraction] 99 % Siva Schulte [facility] 02-03-2024 09:23-0400 Systolic blood pressure 106 mm[Hg] Siva Schulte [facility] 09-23-2023 09:16-0400 Body temperature 98.42 [degF] Wil Chandra [facility] 09-23-2023 09:16-0400 Diastolic blood pressure 68 mm[Hg] Wil Chandra [facility] 09-23-2023 09:16-0400 Heart rate 82 /min Wil Chandra [facility] 09-23-2023 09:16-0400 Respiratory rate 18 /min Wil Chandra [facility] 09-23-2023 09:16-0400 SaO2% (BldA) [Mass fraction] 97 % Wil Chandra [facility] 09-23-2023 09:16-0400 Systolic blood pressure 98 mm[Hg] Wil Chandra [facility] 08-27-2023 12:24-0400 Diastolic blood pressure 61 mm[Hg] [facility] 08-27-2023 12:24-0400 Heart rate 77 /min [facility] 08-27-2023 12:24-0400 Mean blood pressure 72 mm[Hg] [facility] 08-27-2023 12:24-0400 Respiratory rate 16 /min [facility] 08-27-2023 12:24-0400 SaO2% (BldA) [Mass fraction] 97 % [facility] 08-27-2023 12:24-0400 Systolic blood pressure 93 mm[Hg] [facility] 08-27-2023 11:30-0400 Diastolic blood pressure 69 mm[Hg] [facility] 08-27-2023 11:30-0400 Heart rate 74 /min [facility] 08-27-2023 11:30-0400 Mean blood pressure 82 mm[Hg] [facility] 08-27-2023 11:30-0400 Respiratory rate 16 /min [facility] 08-27-2023 11:30-0400 SaO2% (BldA) [Mass fraction] 99 % [facility] 08-27-2023 11:30-0400 Systolic blood pressure 107 mm[Hg] [facility] 08-27-2023 10:30-0400 Diastolic blood pressure 62 mm[Hg] [facility] 08-27-2023 10:30-0400 Heart rate 91 /min [facility] 08-27-2023 10:30-0400 Mean blood pressure 77 mm[Hg] [facility] 08-27-2023 10:30-0400 Respiratory rate 18 /min [facility] 08-27-2023 10:30-0400 SaO2% (BldA) [Mass fraction] 100 % [facility] 08-27-2023 10:30-0400 Systolic blood pressure 107 mm[Hg] [facility] 08-27-2023 09:41-0400 Body temperature 98.6 [degF] [facility] 08-27-2023 09:41-0400 Heart rate 80 /min [facility] 01-04-2023 00:03-0400 Body temperature 98.78 [degF] Siva Schulte [facility] 01-04-2023 00:03-0400 Diastolic blood pressure 54 mm[Hg] Siva Schulte [facility] 01-04-2023 00:03-0400 Heart rate 97 /min Siva Schulte [facility] 01-04-2023 00:03-0400 Mean blood pressure 70 mm[Hg] Siva Schulte [facility] 01-04-2023 00:03-0400 Respiratory rate 18 /min Siva Schulte [facility] 01-04-2023 00:03-0400 SaO2% (BldA) [Mass fraction] 94 % Siva Schulte [facility] 01-04-2023 00:03-0400 Systolic blood pressure 102 mm[Hg] Siva Schulte [facility] 01-03-2023 23:00-0400 Body temperature 100.04 [degF] Siva Eris [facility] 01-03-2023 23:00-0400 Diastolic blood pressure 62 mm[Hg] Siva Eris [facility] 01-03-2023 23:00-0400 Heart rate 100 /min Siva Eris [facility] 01-03-2023 23:00-0400 Mean blood pressure 75 mm[Hg] Siva Eris [facility] 01-03-2023 23:00-0400 Systolic blood pressure 100 mm[Hg] Siva Schulte [facility] 01-03-2023 22:42-0400 Body temperature 100.76 [degF] Siva Schulte [facility] 01-03-2023 22:42-0400 Diastolic blood pressure 59 mm[Hg] Siva Eris [facility] 01-03-2023 22:42-0400 Heart rate 105 /min Siva Schulte [facility] 01-03-2023 22:42-0400 Respiratory rate 20 /min Siva Schulte [facility] 01-03-2023 22:42-0400 SaO2% (BldA) [Mass fraction] 99 % Siva Schulte [facility] 01-03-2023 22:42-0400 Systolic blood pressure 96 mm[Hg] Siva Schulte [facility] 10-02-2022 21:29-0400 Diastolic blood pressure 72 mm[Hg] [facility] 10-02-2022 21:29-0400 Heart rate 94 /min PHYSICIAN NO [facility] 10-02-2022 21:29-0400 Respiratory rate 18 /min PHYSICIAN NO [facility] 10-02-2022 21:29-0400 SaO2% (BldA) [Mass fraction] 98 % PHYSICIAN NO [facility] 10-02-2022 21:29-0400 Systolic blood pressure 141 mm[Hg] PHYSICIAN NO [facility] 10-02-2022 17:03-0400 Body height 170.18 cm PHYSICIAN NO [facility] 10-02-2022 17:03-0400 Body temperature 98.3 [degF] PHYSICIAN NO [facility] 10-02-2022 17:03-0400 Body weight 76.4 kg PHYSICIAN NO [facility] 09-25-2022 13:25-0400 Body height 170.18 cm Viet Yuri Other [employer] Other 09-25-2022 13:25-0400 Body mass index (BMI) [Ratio] 26.62 kg/m2 Viet Welch Other [employer] Other 09-25-2022 13:25-0400 Body temperature 98.2 [degF] Viet Welch Other [employer] Other 09-25-2022 13:25-0400 Body weight 77.11 kg Viet Welch Other [employer] Other 09-25-2022 13:25-0400 Diastolic blood pressure 68 mm[Hg] Viet Welch Other [employer] Other 09-25-2022 13:25-0400 Respiratory rate 18 /min Viet Welch Other [employer] Other 09-25-2022 13:25-0400 SaO2% (BldA) [Mass fraction] 98 % Viet Welch Other [facility] [employer] Other 09-25-2022 13:25-0400 Systolic blood pressure 107 mm[Hg] Viet Welch Other [facility] [employer] Other 09-06-2022 13:54-0400 Diastolic blood pressure 72 mm[Hg] Wil Corazon [facility] 09-06-2022 13:54-0400 Heart rate 60 /min Wil Corazon [facility] 09-06-2022 13:54-0400 Respiratory rate 16 /min Wil Corazon [facility] 09-06-2022 13:54-0400 SaO2% (BldA) [Mass fraction] 100 % Wil Corazon [facility] 09-06-2022 13:54-0400 Systolic blood pressure 103 mm[Hg] Wil Corazon [facility] 09-06-2022 11:41-0400 Diastolic blood pressure 65 mm[Hg] Wil Corazon [facility] 09-06-2022 11:41-0400 Heart rate 58 /min Wil Corazon [facility] 09-06-2022 11:41-0400 Mean blood pressure 77 mm[Hg] Wil Corazon [facility] 09-06-2022 11:41-0400 Respiratory rate 16 /min Wil Corazon [facility] 09-06-2022 11:41-0400 SaO2% (BldA) [Mass fraction] 100 % Wil Corazon [facility] 09-06-2022 11:41-0400 Systolic blood pressure 102 mm[Hg] Wil Corazon [facility] 09-06-2022 10:42-0400 Body temperature 98.24 [degF] Wil Chandra [facility] 09-06-2022 10:42-0400 bodymassindex 1.17 Wil Chandra [facility] Comment on above: Result Comment: ^~:!ZScore [facility] 09-06-2022 10:42-0400 Diastolic blood pressure 71 mm[Hg] Wil Chandra [facility] 09-06-2022 10:42-0400 Heart rate 73 /min Wil Chandra [facility] 09-06-2022 10:42-0400 Height/Length Percentile 84.89 Wil Chandra [facility] Comment on above: Result Comment: ^~:!Percentile [facility] 09-06-2022 10:42-0400 Height/Length Z-Score 1.03 Wil Chandra [facility] Comment on above: Result Comment: ^~:![employer] [facility] 09-06-2022 10:42-0400 Respiratory rate 16 /min Wil Chandra [facility] 09-06-2022 10:42-0400 SaO2% (BldA) [Mass fraction] 98 % Wil Chandra [facility] 09-06-2022 10:42-0400 Systolic blood pressure 111 mm[Hg] Wil Chandra [facility] 09-06-2022 10:42-0400 weight 1.47 Wil Jollye [facility] Comment on above: Result Comment: ^~:![employer] [facility] 09-06-2022 10:42-0400 Weight Percentile 92.90 % Wil Chandra [facility] Comment on above: Result Comment: ^~:!Percentile Source -[facility] 08-14-2022 21:30-0500 Diastolic blood pressure 79 mm[Hg] Bob Llanos [facility] 08-14-2022 21:30-0500 Heart rate 87 /min Bob Llanos [facility] 08-14-2022 21:30-0500 Mean blood pressure 93 mm[Hg] Bob Llanos [facility] 08-14-2022 21:30-0500 Nursing Progress Note Reason Other: pt to US via stretcher at this time. Bob Llanos [facility] 08-14-2022 21:30-0500 Respiratory rate 16 /min Bob Llanos [facility] 08-14-2022 21:30-0500 SaO2% (BldA) [Mass fraction] 100 % Bob Llanos [facility] 08-14-2022 21:30-0500 Systolic blood pressure 120 mm[Hg] Bob Llanos [facility] 08-14-2022 19:20-0500 Body temperature 98.96 [degF] Bob Llanos [facility] 08-14-2022 19:20-0500 bodymassindex 1.17 Bob Llanos [facility] Comment on above: Result Comment: ^~:![employer]Score Source [facility] 08-14-2022 19:20-0500 Diastolic blood pressure 61 mm[Hg] Bob Llanos [facility] 08-14-2022 19:20-0500 Heart rate 98 /min Bob Llanos [facility] 08-14-2022 19:20-0500 Height/Length Percentile 84.91 Bob Llanos [facility] Comment on above: Result Comment: ^~:!Percentile Source -[facility] 08-14-2022 19:20-0500 Height/Length Z-Score 1.03 Bob Llanos [facility] Comment on above: Result Comment: ^~:!ZScore [facility] 08-14-2022 19:20-0500 Respiratory rate 16 /min Bob Llanos [facility] 08-14-2022 19:20-0500 SaO2% (BldA) [Mass fraction] 99 % Bob Llanos [facility] 08-14-2022 19:20-0500 Systolic blood pressure 114 mm[Hg] Bob Llanos [facility] 08-14-2022 19:20-0500 weight 1.47 Bob Llanos [facility] Comment on above: Result Comment: ^~:!ZScore [facility] 08-14-2022 19:20-0500 Weight Percentile 92.94 % Bob Llanos [facility] Comment on above: Result Comment: ^~:!Percentile Source - [employer] 06-24-2022 13:30-0500 Body height 170.18 cm Viet Welch Other [facility] Other 06-24-2022 13:30-0500 Body mass index (BMI) [Ratio] 26.62 kg/m2 Viet Welch Other [facility] Other 06-24-2022 13:30-0500 Body temperature 97.8 [degF] Viet Welch Other [facility] Other 06-24-2022 13:30-0500 Body weight 77.11 kg Viet Welch Other [facility] Other 06-24-2022 13:30-0500 Diastolic blood pressure 63 mm[Hg] Viet Welch Other [facility] Other 06-24-2022 13:30-0500 Respiratory rate 18 /min Viet Welch Other [facility] Other 06-24-2022 13:30-0500 SaO2% (BldA) [Mass fraction] 98 % Viet Welch Other [facility] Other 06-24-2022 13:30-0500 Systolic blood pressure 97 mm[Hg] Viet Welch Other [facility] Other 11-13-2021 14:05-0400 Body height 170.18 cm Michael Oneil Other [facility] Other 11-13-2021 14:05-0400 Body mass index (BMI) [Ratio] 26.62 kg/m2 Michael Oneil Other [facility] Other 11-13-2021 14:05-0400 Body temperature 98.4 [degF] Michael Oneil Other [facility] Other 11-13-2021 14:05-0400 Body weight 77.11 kg Michael Oneil Other [facility] Other 11-13-2021 14:05-0400 Respiratory rate 18 /min iMchael Oneil Other [facility] Other 11-13-2021 14:05-0400 SaO2% (BldA) [Mass fraction] 98 % Michael Oneil Other [facility] Other 11-06-2021 15:45-0400 Body height Kendra Eduar Other [facility] Other 11-06-2021 15:45-0400 Body mass index (BMI) [Ratio] 26.62 kg/m2 Kendra Witt Other [facility] Other 11-06-2021 15:45-0400 Body weight 77.11 kg Kendra Witt Other [facility] Other 11-06-2021 15:45-0400 Respiratory rate 20 /min Kendra Witt Other [facility] Other 11-06-2021 15:45-0400 SaO2% (BldA) [Mass fraction] 98 % Kendra Witt Other [facility] Other Encounters Encounter Date Encounter Type Care Provider Facility Start: 02-16-2024 End: 02-16-2024 ambulatory GONSALO CORRAL Not Available Start: 02-03-2024 End: 02-03-2024 Emergency department patient visit Siva Schulte [facility] Start: 01-26-2024 End: 01-26-2024 ambulatory JUVENAL MIRI Not Available Start: 12-29-2023 End: 12-29-2023 ambulatory GONSALO ELLIS Not Available Start: 12-22-2023 End: 12-22-2023 ambulatory JUVENAL R [facility] Start: 12-01-2023 End: 12-01-2023 ambulatory JUVENAL MIRI Not Available Start: 11-10-2023 End: 11-10-2023 ambulatory JUVENAL R [facility] Start: 10-27-2023 End: 10-27-2023 ambulatory GONSALO ELLIS Not Available Start: 09-29-2023 End: 09-29-2023 ambulatory JUVENAL MIRI Not Available Start: 09-23-2023 End: 09-23-2023 Emergency department patient visit Wil Jollye [facility] Start: 09-04-2023 End: 09-04-2023 ambulatory JUVENAL MIRI Not Available Start: 08-27-2023 End: 08-27-2023 Emergency department patient visit Emily Harper [facility] Start: 08-18-2023 End: 08-18-2023 ambulatory SELAM HUNTER Facility[facility] Start: 01-03-2023 End: 01-04-2023 Emergency department patient visit Siva Schulte [facility] Start: 12-12-2022 End: 12-12-2022 ambulatory Kenneth Lina Other [facility] Other Start: 12-12-2022 Telephone encounter Kenneth Lina [facility] Start: 10-02-2022 End: 10-02-2022 Emergency department patient visit Jose Silverman Facility:[facility] Start: 10-02-2022 End: 10-02-2022 Emergency department patient visit PHYSICIAN SJ LERNER [facility] Work Phone: Start: 09-25-2022 End: 09-25-2022 ambulatory Viet Galion Other [facility] Other Start: 09-25-2022 Office outpatient visit 15 minutes Viet Welch [facility] Start: 09-06-2022 End: 09-06-2022 Emergency department patient visit Wil Jollye [facility] Start: 08-14-2022 End: 08-14-2022 Emergency department patient visit Bob Llanos [facility] Start: 07-11-2022 End: 07-11-2022 ambulatory ROSEANN CORRAL Facility:[facility] Start: 06-24-2022 End: 06-24-2022 ambulatory Viet Welch Other [facility] Other Start: 06-24-2022 Office outpatient visit 15 minutes Viet Welch [facility] Start: 01-11-2022 End: 01-11-2022 ambulatory NONE LISTED REQUEST Facility:[facility] Start: 01-07-2022 End: 01-09-2022 Evaluation and management of inpatient DR RENATA GEORGES Facility:[facility] Start: 12-29-2021 End: 12-29-[address] JUVENAL THORPE Facility:[facility] Start: 12-19-2021 End: 12-19-[address] JUVENAL THORPE Facility:[facility] Start: 12-12-2021 End: 12-13-2021 ambulatory JUAQUIN SEWELL [facility] Start: 12-12-2021 End: 12-12-2021 Subsequent hospital visit by physician [facility] Start: 11-27-2021 End: 11-27-[address] SOFIA KABA Facility:[facility] Start: 11-13-2021 End: 11-13-2021 ambulatory Michael Oneil Other [facility] Other Start: 11-13-2021 Office outpatient visit 15 minutes Michael Oneil [facility] Start: 11-06-2021 End: 11-06-2021 ambulatory Kendra Witt Other [facility] Other Start: 11-06-2021 Office outpatient visit 25 minutes Kendra Witt [facility] Start: 10-23-2021 End: 10-24-[address] [...] identified in Urine by Culture Urine Culture [facility] Start: 02-07-2022 Influenza vaccination Flu vaccine (# 1) [facility] Start: 01-09-2022 End: 01-09-2022 Patient encounter procedure 01/09/2022 Routine Perinatology [facility] Start: 01-02-2022 End: 01-02-2022 Patient encounter procedure 01/02/2022 Routine Perinatology [facility] Start: 12-26-2021 End: 12-26-2021 Patient encounter procedure 12/26/2021 Routine Perinatology [facility] Start: 12-20-2021 End: 12-20-2021 Patient encounter procedure 12/20/2021 Routine Perinatology [facility] Start: 2021 DTaP/Tdap/Td vaccine (1 - Tdap) DTaP/Tdap/Td vaccine (1 - Tdap) [facility] Start: 2020 Hepatitis C screening Hepatitis C sc haresh [facility] Start: 2018 Screening for Chlamy nazanin trachomatis Chlamydia screen [facility] Start: 2017 HIV screening HIV screen [facility] Start: 2014 [facility] Start: 2013 HPV vaccine (1 - 2-d ose series) HPV vaccine (1 - 2-dose series) [employer] [facility] Start: 09-16-2007 COVID-19 Vaccine (1) COVID-19 Vaccin e (1) [employer] [facility] Start: 09-16-2003 Varicella vaccine (1 of 2 - 2-dose childhood series) Varicella vaccine (1 of 2 - 2-dose childhood series) [facility] Patient Education Depression, Adult ED [facility] Work Phone: Patient referral [facility] Work Phone: End: 12-12-2021 Sjogrens syndrome-A extractable nuclear antibody [employer] Work Phone: Comment on above: Once for 1 Occurrenc es starting 12/12/2021 until 12/12/2021 End: 12-12-2021 Sjogrens syndrome-B extractable nuclear antibody [employer] [facility] Work Phone: Comment on above: Once for 1 Occurrenc es starting 12/12/2021 until 12/12/2021 Immunizations Immunization Date Immunization Notes Care Provider Simona galarza NEGATED: Highlighted row has not occurred!11-05-2019 influenza, injectable, quadrivalent, contains preservative Kendra Witt Other [employer] Other NEGATED: Highlighted row has not occurred!04-10-2019 influenza virus vaccine, unspecified formulation Bob Viet [facility] Payers Date Payer Category Payer Self-pay [id number] 2002 Unknown [id number] 2.16. [id number] 2002 Unknown [id number] 2.16.84 0.1.391977.3.579.2.593 2002 Unknown [id number] 2.16.84 0.1.140073.3.579.2.593 2002 Unknown [id number] 2.16.84 0.1.644455.3.579.2.593 2002 Unknown [id number] 2.16.84 0.1.237999.3.579.2.593 2002 Unknown [id number] 2.16.84 0.1.169990.3.579.2.593 2002 Unknown [id number] 2.16.84 0.1.561350.3.579.2.593 2002 Unknown [id number] 2.16.84 0.1.363391.3.579.2.593 2002 Unknown [id number] 2.16.84 0.1.831369.3.579.2.593 2002 Unknown [id number] 2.16.84 0.1.678624.3.579.2.593 2002 Unknown [id number] 2.16.84 0.1.848724.3.579.2.593 2002 Unknown [id number] 2.16.84 0.1.762537.3.579.2.593 2002 Unknown [id number] 2.16.8 40.1.840300.3.579.2.1286 2002 Unknown [id number] 2.16.8 40.1.726683.3.579.2.1286 2002 Unknown [id number] 2.16.8 40.1.274310.3.579.2.1286 2002 Unknown [id number] 2.16.8 40.1.805617.3.579.2.727 2002 Unknown [id number] 2.16.8 40.1.656445.3.579.2.727 2002 Unknown [id number] 2.16.8 40.1.486554.3.579.2.727 2002 Unknown [id number] 2.16.8 40.1.240065.3.579.2.727 2002 Unknown [id number] 2.16.8 40.1.114470.3.579.2.727 2002 Unknown [id number] 2.16.84 0.1.263815.3.579.2.1259 2002 Unknown [id number] 2.16.84 0.1.490963.3.579.2.9 2002 Unknown [id number] 2.16.84 0.1.581561.3.579.2.9 2002 Unknown [id number] 2.16.84 0.1.064715.3.579.2.9 2002 Unknown [id number] 2.16.84 0.1.714717.3.579.2.9 2002 Unknown [id number] 2.16.84 0.1.834517.3.579.2.9 2002 Unknown [id number] 2.16.84 0.1.837798.3.579.2.9 1959 Unknown [id number] 2.1 6.840.1.089166.19 1959 Unknown [id number] Unknown [id number] 2.16.8 40.1.827458.3.579.2.531 Social History Date Type Detail Facility Sex Assigned At [facility] Start: 11-28-2021 Tobacco smoking stat [facility] Never smoked tobacco [employer] Phone: Start: 11-28-2021 Tobacco use and exposure Smokeless tobacco non-user [employer] Phone: Start: 12-12-2021 Alcohol intake Ex-drinker (finding) [employer] Phone: Start: 12-12-2021 Tobacco Comment no longer vapes [employer] Phone: Start: 04-21-2021 [place] [employer] Work Phone: Start: 2002 Sex Assigned At Not on file B ON [employer] Phone: Tobacco Current vaping o r e-cigarette use Smokeless Tobacco Use:. Vaping [facility] Tobacco smoking status No Smokin g Status Entered [facility] Start: 10-02-2022 Tobacco smoking stat us NHIS Smoker (finding) [facility] Start: 2002 Sex Assigned At Female F [facility] Functional Status Date Assessment Result Facility 02-03-2024 Functional Status N/A [facility] 09-23-2023 Functional Status N/A [facility] 08-27-2023 Functional Status N/A [facility] 01-03-2023 Functional Status N/A [facility] 09-06-2022 Functional Status N/A [facility] 08-14-2022 Functional Status N/A [facility] Clinical Notes 11-06-2021 to 02-03-2024 Note Date & Type Note Facility 02-03-2024 Evaluation + Plan note Extrac ruby from: Title:ED Note Author:Duc Swanson PA-C te:02/03/24 Sore throat (J02.9: Acute ph aryngitis, unspecified) Viral URI (J06.9: Acute upper respiratory infection, unspecified) Orders: Group A Strep by PCR Rapid Strep w/rfx Diagnostic Tests Pending * Group A Strep by PCR 02/03/24 [facility] 08-27-2024 Hospital Discharge instructions Patient Education [...] medicines to help relieve symptoms, such as: Vfew-caw-rrtjsxu cold medicines. Cough suppressants. Coughing is a [...] and other clear broths. General instructions Take ipxh-wip-hbstzsl and prescription medicines only as told by [...] and water are not available, use hand ice hockey coach. Avoid touching your mouth, face, eyes, or [...] provider. Document Revised: 12/26/2021 Document Reviewed: 12/26/2021 [employer] Patient Education 2022 [employer] Follow Up Care 02/03/2024 09:23:13 With:Juvenal THORPE Address: [address] , [place] [address]- Business (1) When:02/06/2024 11:12:27 With:SELAM HUNTER Address: [facility] [place] [address] Business (1) When:02/06/2024 11:12:21 [facility] 08-27-2024 NoteED Patient Education Note Infectious [...] to help relieve symptoms, such as: ? Ific-ghp-zcbgbij cold medicines. ? Cough suppressants. Coughing is [...] other clear broths. General instructions ? Take gjjh-wlj-wevupkj and prescription medicines only as told by [...] soap and water are not available,use hand ice hockey coach. ? Avoid touching your mouth, face, eyes, [...] Mood. These symptoms m (more content not included)...[facility] 09-23-2023 Hospital Discharge instructions Patient [...] provider. Document Revised: 02/19/2021 Document Reviewed: 02/19/2021 [employer] Patient Education 2022 [employer] Follow Up Care 09/23/2023 09:11:45 With:Juvenal THORPE Address: [address] [place] [address] Business (1) When:09/26/2023 11:44:07 [facility]03-20-2024 Hospital Discharge instructions Patient Education 08/27/2023 [...] provider. Document Revised: 01/09/2022 Document Reviewed: 01/09/2022 [employer] Patient Education 2022 [employer] 08/27/2023 12:34:16 Urinary Tract Infection, Adult, Jheg-oh-Npha Urinary Tract Infection, Adult A urinary tract [...] Follow these instructions at home: Medicines Take zdez-gic-huuahmx and prescription medicines only as told by [...] provider. Document Revised: 01/05/2021 Document Reviewed: 01/05/2021 [employer] Patient Education 2022 [employer] 08/27/2023 12:34:16 Subchorionic Hematoma Subchorionic Hematoma A [...] provider. Document Revised: 02/19/2021 Document Reviewed: 02/19/2021 [employer] Patient Education 2022 [employer] Follow Up Care 08/27/2023 09:39:16 With:Juvenal THORPE Address: [address] , [place] [address] Business (1) When:08/30/2023 12:05:10 With:SELAM HUNTER Address: [facility] [place] [address] Business (1) When:Within 3 Day(s) [facility]03-20-2024 Evaluation + Plan noteExtracted from: Title:ED [...] day(s), # 28 cap(s), Refills(s) 0, Pharmacy: [facility], 170, cm, 08/27/23 9:49:00 EDT, Height/Length Dosing, 78.7, kg, 08/27/23 9:49:00 EDT, Weight Dosing ABO/Rh Basic Metabolic Panel Beta hCG Quantitative CBC w/ Auto Diff eGFR Extra Blue Tube Extra SST Tube UA with Cult Rflx Urine Culture US 1st Trimester US Transvaginal Diagnostic Tests Pending * Urine Culture 08/27/23 [facility]07-29-2023 Hospital Discharge instructions Patient Education 01/04/2023 00:13:01 Pharyngitis, Vajp-tm-Kupj Pharyngitis Pharyngitis is a sore throat (pharynx). 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 Do not touch your eyes, nose, or [...] provider. Document Revised: 08/22/2021 Document Reviewed: 08/22/2021 [employer] Patient Education 2022 [employer] Follow Up Care 01/03/2023 22:32:55 With:Thonyyrn Carl Address: [address] [place] [address] [place] [address] [facility] (1) When:01/06/2023 Comments:Follow-up with your primary care provider in 3 to 5 days. If symptoms worsen, do not improve, or new symptoms arise please report back to emergency department for further evaluation. [facility]07-28-2023 Evaluation + Plan noteExtracted from: Title:ED [...] q12hr, # 20 cap(s), Refills(s) 0, Pharmacy: [facility], 170, cm, 01/03/23 22:44:00 EDT, Height/Length Dosing, 75.3, kg, 01/03/23 22:44:00 EDT, Weight Dosing ondansetron, 4 mg = 1 tab(s), Oral, q8hr, PRN Nausea/Vomiting, # 12 tab(s), Refills(s) 0, [facility], [facility], cm, 01/03/23 22:44:00 EDT, Height/Length Dosing, 75.3, kg, 01/03/23 22:44:00 EDT, Weight Dosing ondansetron, 12 mg = 3 tab(s), Tab-Dis, Oral, Once, Stop date 01/03/23 23:45:00 EDT, STAT, Start date 01/03/23 23:45:00 EDT, 01/03/23 23:45:00 EDT Automated Diff Basic Metabolic Panel Beta hCG Quantitative CBC w/ Auto Diff eGFR Hepatic Function Panel Lipase Level [facility]04-19-2023 Evaluation note* Encounter Date Diagnosis Assessment [...] of symptoms occur by end of treatment. [facility] Other 03-31-2023 Hospital Discharge instructions Patient Education [...] Follow these instructions at home: Medicines Take burr-cfn-omgtnmx and prescription medicines only as told by [...] important. Where to find more information [employer]: www.acog.org [place] [...] 11/19/2001 Document Revised: 09/17/2019 Document Reviewed: 07/01/2017 [employer] Patient Education 2020 [employer] Follow Up Care 09/06/2022 10:42:16 With:Juvenal THORPE Address: [address] [place] [address]- Business (1) When:09/09/2022 13:46:05 [facility]03-09-2023 Hospital Discharge instructions Patient Education 08/14/2022 22:12:46 Abdominal Pain During , Lyke-qj-Dehe Abdominal Pain During Belly (abdominal) pain is [...] keep your pee (urine) pale yellow. Take rdqv-wqf-dkbqibt and prescription medicines only as told by [...] Document Reviewed: 08/28/2017 [employer] Patient Education 2020 [employer] 08/14/2022 22:12:46 Abdominal Pain, Adult, Qykk-go-Jvgp Abdominal Pain, Adult Many things can cause belly (abdominal) pain. Most times, belly pain is not dangerous. Many cases of belly pain can be watched and treated at home. Sometimes, though, belly pain is serious. Your doctor will try to find the cause of your belly pain. Follow these instructions at home: Medicines Take akze-urp-ignstlp and prescription medicines only as told by [...] your belly pain for any changes. Take wcic-rui-sexduwp and prescription medicines only as told by [...] 11/11/2008 Document Revised: 10/04/2019 Document Reviewed: 10/04/2019 [employer] Patient Education 2020 [employer] Follow Up Care 08/14/2022 18:41:38 With:Jvuenal THORPE Address: [address] , [place] [address]- Business (1) When:08/17/2022 Comments:Follow-up with Dr. Thorpe for further evaluation of your . With:Juventino Carbajal Address: [address] [place] [address]- When:08/17/2022 Comments:Follow-up with your primary care provider in 3 to 5 days. If symptoms worsen, do not improve, or new symptoms arise please report back to emergency department for further evaluation. [facility]01-16-2023 Evaluation note* Encounter Date Diagnosis Assessment [...] return precautions. Jun, Cough (ICD-10 - R05.9) [facility] Other 06-07-2022 Evaluation note* Encounter Date Diagnosis [...] Pt understood and agreed to tx plan. [facility] Other [id number] Evaluation note* Encounter Date Diagnosis Assessment Notes [...] condition October, Sore throat (ICD-10 - J02.9) [employer] Other Evaluation + Plan note No data available for this section [facility] assessment information available [facility] Work Phone: Evaluation noteNo InformationNort [employer] Other History general Narrative - Reported* Type Description Date Medical History fx lt elbow at age 7 Surgical History surgical repair of left elbow f racture at age 7 Hospitalization History see surgical hx [facility] Other Progress note No data available for this section [facility] Summary Purpose Family History No Family [...] section and content) DATE CREATED AUTHOR 01/05/2022 [facility] DATE CREATED AUTHOR AUTHOR'S ORGANIZ ATION 07/15/2022 [facility] DATE CREATED AUTHOR AUTHOR'S ORGANIZ ATION 10/10/2022 [facility] DATE CREATED AUTHOR AUTHOR'S ORGANIZ ATION 12/26/2023 [facility] DATE CREATED AUTHOR AUTHOR'S ORGANIZ ATION 02/05/2024 [facility] DATE CREATED AUTHOR AUTHOR'S ORGANIZ ATION 02/06/2024 [facility] DATE CREATED AUTHOR AUTHOR'S ORGANIZ ATION 02/17/2024 [facility] [employer] Care Teams (unrecognized sec tion and content) Personnel Name: SELAM HUNTER CNP Address: Address: [address] [place] [address] Team Status: Active Member Role Status Dates [...] BE BASED ON THE PRIMARY CLINICAL RECORDS. MD [facility]. provides no warranty or guarantee of the accuracy or completeness of information in this document.
[2024-02-24 10:33] LABS: Bilirubin Urine NEGATIVE (NEGATIVE); Blood Urine NEGATIVE (NEGATIVE); Color Urine LT. YELLOW (YELLOW); Glucose Urine UA NEGATIVE (NEGATIVE); Ketones Urine NEGATIVE (NEGATIVE); Leukocyte Esterase Urine SMALL (NEGATIVE); Nitrite Urine NEGATIVE (NEGATIVE); Protein Urine TRACE mg/dL (NEG/TRACE); Urobilinogen Urine 0.2 EU/dL (0.2-1.0); pH Urine 7.5 (5.0-9.0)
[2024-02-24 10:44] LABS: Clarity Urine CLOUDY (CLEAR); Urine Microscopic Indicated YES
[2024-02-24 10:48] LABS: Amorphous Sediment Urine MANY; Bacteria Urine LARGE #/HPF (NONE SEEN); Crystals Seen? Seen #/HPF (None Seen); Mucus Urine NONE SEEN (NONE SEEN); RBC Urine NONE SEEN #/HPF (0-2); Squamous Epithelial Cell Urine FEW #/LPF (NONE/RARE)
[2024-02-24 10:49] LABS: Urine Culture Indicated YES
== END 2024-02-24 12:45 | disposition home or self-care (01) ==
PROVIDERS: Admitting Provider Obstetrics & Gynecology; Visit Provider Obstetrics & Gynecology
DX: O26.893 Other specified pregnancy related conditions, third trimester (principal); M54.9 Dorsalgia, unspecified; Z3A.32 32 weeks gestation of pregnancy
CPT/HCPCS: 81001; 87086; G0378; G0379

== ENCOUNTER 2024-02-26 07:04 | Outpatient (OUT) | payer OTHER, SELFPAY ==
--- OUTSIDE RECORDS SUMMARY | 2024-02-26 07:07 | XMS_ITS | CCD ---
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 Repository Medications Current Medications Medication Drug [...] day(s), # 28 cap(s), Refills(s) 0, Pharmacy: [facility], 170, cm, 08/27/23 9:49:00 EDT, Height/Length Dosing, 78.7, kg, 08/27/23 9:49:00 EDT, Weight Dosing Start Date: 08/27/23 Stop Date: 09/03/23 Status: Ordered Start: 01-03-2023 take 1 capsule by [facility] every twelve hours Keflex 500 mg Cap 500 mg = 1 cap(s), Oral, q12hr, # 20 cap(s), Refills(s) 0, Pharmacy: [facility], 170, cm, 01/03/23 22:44:00 EDT, Height/Length Dosing, 75.3, kg, 01/03/23 22:44:00 EDT, Weight Dosing Start Date: 01/03/23 Status: Ordered Citalopram (2 sources) Serotonin Reuptake Inhibitor Citalopram Hydrobromide Active dexamethasone 1 mg/ml / neomycin 3.5 mg/ml / polymyxin b 81581 unt/ml ophthalmic suspension (2 sources) Aminoglycoside Antibacterial, Polymyxin-class Antibacterial, Corticosteroid Start: 09-26-19 take 1 drop(s) into the eye(s) four times daily Maxitrol 3.5-94215-6.1 1 drop into affected eye Ophthalmic Four [...] 3 hrs for 2 days Jun, Active Annex (No Known Home Meds) (1 source) Start: 06-26-2021 Annex (No Known Home Meds) Active June 26, [...] Nausea/Vomiting, # 12 tab(s), Refills(s) 0, Pharmacy: [facility], 170, cm, 01/03/23 22:44:00 EDT, Height/Length Dosing, 75.3, kg, 01/03/23 22:44:00 EDT, Weight Dosing Start Date: 01/03/23 Status: Ordered Start: 06-09-2019 take 1 tablet by faby th three times daily Zofran ODT 4 mg Tab-Dis 4 mg = 1 tab(s), Oral, TID, # 15 tab(s), Refills(s) 0, Pharmacy: [facility] Start Date: 06/09/19 [...] take 450 mg by mouth twice daily [place] Carbonate Discontinued 450 MG PO Twice daily [...] Grp A Strp Intrl Ctrl Pass Normal [facility] Comment on above: Order Comment: Order Added on by Discern Rule. Performed By: #### 1 [id number] #### [facility] [address] [place] [address] S. pyogenes DNA ALFREDO+probe Ql (Throat) Negative Normal [facility] Comment on above: Order Comment: Order Added on by Discern Rule. Result Comment: Test ing performed using DNA amplification. Performed By: #### 1 [id number] #### [facility] [address] [place] [address] ED Clinical Summaryon 2023 ED Clinical Summary ED Clinical Summary [address] [address] ED Clinical Summary Person Information Name: KAILYN ACKERMAN [facility] Age: 23 Years : 2000 Sex: Female Language: Brazilian PCP: SELAM HUNTER CNP Marital Status: Single Phone: [phone] MRN: Visit Id: Visit Reason: Headache; Body [...] 02/03/2024 11:17:23 02/03/2024 11:17:23 02/03/2024 11:17:23 ADDRESS: [address] [place] [phone] PHYS DOC NOTES: MEDICAL INFORMATION: Prescriptions Given: [...] With: Address: When: Juvenal THORPE [facility], [address] [place] [address] [place] [address] Business (1) In 3 days 02/06/2024 With: Address: When: [place] [address] Business (1) In 3 days 02/06/2024 DIAGNOSIS: Sore throat; Viral URI Normal [facility] ED Note-Physicianon 08-27-20 24 ED Note-Physician ED [...] OB every week and follows with Dr. Thorep due to circumvallate placenta and small subchorionic [...] URI and will continue to follow-up with BUSINESS ASSOCIATE for further evaluation and management. We discussed [...] days 02/06/2024 (more content not included)... Normal [facility] Comment on above: Result Comment: Elec tronically Signed By: Duc Swanson PA-C\.br\Date and Time Signed: 02/03/24 13:23 EDT\.br\Electronically Co-Signed By: Siva Schulte DO\.br\Date and Time Co-Signed: 02/03/24 14:44 EDT ED Patient Summaryon 024 ED Patient Summary ED Patient Summary [address] [address] Patient Discharge Instructions Person Information Name: KAILYN ACKERMAN Age: 23 Years Arrival Date: 02/03/2024 09:21:41 Discharge Diagnosis: Sore throat; Viral URI Primary Care Physician: SELAM HUNTER CNP Provider Information Primary Provider: Siva Schulte DO Advanced Examining Officer:Duc Swanson PA-C The exam and treatment you received in the Emergency Department were for an urgent problem and are not intended as complete care. It is important that you follow up with a doctor, nurse practitioner, or physician?s assistant professor of business for ongoing care. If your symptoms become [...] With: Address: When: Juvenal THORPE [facility], [address] [place] [address] [place] [address] Business (1) In 3 days 02/06/2024 With: Address: When: SELAM HUNTER [address] [place], [place] [address] [address] Business (1) In 3 days 02/06/2024 In the event that this physician does not participate in your insurance network, please consult with your insurance company to find a nearby participating provider. Patient Education Materials: Upper Respiratory Infection, Adult A MESSAGE TO ALL PATIENTS REGARDING OPIOIDS PRESCRIPTION OPIOIDS: WHAT YOU NEED TO KNOW Prescription opioids can be used to help relieve tgsgobkh-qu-almoyd pain and are often prescribed following a [...] of op (more content not included)... Normal [facility] MICRO OTHER TESTSOrdered By: Nita Delgadillo on 02-03-2024 S. pyogenes Ag IA.rapid Ql (Throat) Negative (02/03/24 11:07 AM) Normal Negative [facility] Sero MICRO OTHER TESTSOrdered By: Asuncion Goncalves on 02-03-2024 Rapid COV Int NEG Ctl Pass (02/03/24 9:30 AM) Normal [facility] Man Sero Rapid COV Int POS Ctl Pass (02/03/24 9:30 AM) Normal [facility] Sero SARS-CoV+SARS-CoV-2 (COVID-19) Ag IA.rapid Ql (Resp) Not Detected 1 (02/03/24 9:30 AM) Normal Not Detected [facility] Man Sero Comment on above: Interpretive Data: Gato multani vivio Veritor System for Rapid Detection of SARS-CoV-2 [...] Int NEG Ctl Pass Normal [facility] Comment on above: Performed By: #### 2 [id number] #### [facility] [address] [place] [address] Rapid COV Int POS Ctl Pass Normal [facility] Comment on above: Performed By: #### 2 [id number] #### [facility] [address] [place] [address] SARS-CoV+SARS-CoV-2 (COVID-19) Ag IA.rapid Ql (Resp) Not detected Normal Not Detected [facility] Comment on above: Result Comment: The vivio Veritor? System for Rapid Detection of SARS-CoV-2 [...] other viruses or pathogens; and, in the [facility], this test is only authorized for the duration of the declaration that circumstances exist justifying the authorization of emergency use of in vitro diagnostics for detection and/or diagnosis of the virus that causes COVID-19 under Section 564(b)(1) of the Act, 21 U.S.C. ? 360bbb-3(b)(1), unless the authorization is terminated or revoked sooner. Performed By: #### 2 [id number] #### [facility] [address] [place] [address] Rapid Strep w/rfxon 02-03-20 24 S. pyogenes Ag IA.rapid Ql (Throat) Negative Normal Negative [facility] Comment on above: Performed By: #### 2 [id number] #### [facility] [address] [place] [address] ED Note-Physicianon 09-26-19 24 ED Note-Physician Basic [...] than 90,000. Ultrasound was obtained discussed with outer diameter technician. Intrauterine consistent with stated gestational age. Stable heart rate. Patient continues to demonstrate subchorionic hematoma. Also left-sided ovarian cyst similar to previous. Results were discussed with the patient. She is discharged home to continue pelvic rest and follow-up with BUSINESS ASSOCIATE. Patient was encouraged to return to the [...] Juvenal THORPE In 3 days 09/26/[address] , [place] [address] Business (1) Additional Instructions: Patient Education Subchorionic [...] made to ensure accuracy, however, inadvertently computerized fire extinguisher sprinkler inspector mistakes may be present. Appropriate healthcare PPE [...] Yes., 04/10/2019 Lab Results Beta hCG Qnt: 83613 mIU/mL High (09/23/23 09:28:00) Diagnostic Results No qualifying data available. Normal [facility] Comment on above: Result Comment: Elec tronically Signed By: Mandie CHUNG, Venkat\.br\Date and Time Signed: 09/23/23 11:45 EDT\.br\Electronically Co-Signed By: Wil Chandra DO\.br\Date and Time Co-Signed: 09/26/23 07:37 EDT [facility] [place] Quanton 09-23-2023 [place] [address] m[IU]/mL High 1-3 F [facility] Comment on above: Result Comment: 'F N ON < 1 - 3' ' 0.2 - 1 WEEK = 5 TO 50' ' 1 - 2 WEEKS = 50 - 500' ' 2 - 3 WEEKS = 100 - 5000' ' 3 - 4 WEEKS = 500 - 06139' ' 4 - 5 WEEKS = 1000 - 14702' ' 5 - 6 WEEKS = 10177 - 374601' ' 6 - 8 WEEKS = 21810 - 980858' ' 8 - 12 WEEKS = 77323 - 345580' Performed By: #### 2 [id number] ####[place] [address] [place] [address] CHEMISTRYOrdered By: SYSTEM SYSTEM on 09-23-2023 [place] [address] m[IU]/mL High 1 - 3 mIU/mL [facility] Comment on above: Result Comment: 'F N ON < 1 - 3' ' 0.2 - 1 WEEK = 5 TO 50' ' 1 - 2 WEEKS = 50 - 500' ' 2 - 3 WEEKS = 100 - 5000' ' 3 - 4 WEEKS = 500 - 08160' ' 4 - 5 WEEKS = 1000 - 70042' ' 5 - 6 WEEKS = 36476 - 491969' ' 6 - 8 WEEKS = 33603 - 122156' ' 8 - 12 WEEKS = 20698 - 091569' Consent for Treatmenton 09-07 Consent for Treatment [id number] Normal [facility] Discharge Instructionson Discharge Instructions [id number] Normal [facility] ED Clinical Summaryon 2023 ED Clinical Summary [address] [address] ED Clinical Summary Person Information Name: KAILYN ACKERMAN [facility] Age: 23 Years : 2000 Sex: Female Language: Brazilian PCP: NONE, XXXX Marital Status: Single Phone: [phone] MRN: [id number] Visit Id: Visit Reason: Back [...] 09/23/2023 11:52:16 09/23/2023 11:52:16 09/23/2023 11:52:16 ADDRESS: [address] [place] [address] [phone] PHYS DOC NOTES: MEDICAL INFORMATION: Prescriptions Given: [...] With: Address: When: Juvenal THORPE [facility], [address] [place] [address] [place] [address] Business (1) In 3 days 09/26/2023 DIAGNOSIS: Other antepartum hemorrhage, unspecified trimester; Subchorionic bleed; Vaginal bleeding in Normal [facility] ED Patient Education Noteon 09-23-2023 ED [...] provider. Document Revised: 02/19/2021 Document Reviewed: 02/19/2021 [employer] Patient Education ? 2022 [employer]. Normal [facility] ED Patient Summaryon 024 ED Patient Summary [address] [address] Patient Discharge Instructions Person Information Name: GARCÍA ACKERMANNZIE Evan Age: 23 Years Arrival Date: 09/23/2023 09:10:07 Discharge Diagnosis: Other antepartum hemorrhage, unspecified trimester; Subchorionic bleed; Vaginal bleeding in Primary Care Physician: NONE, XXXX Provider Information Primary Provider: Wil Chandra DO Advanced Examining Officer:Venkat Leal PA-C The exam and treatment you received in the Emergency Department were for an urgent problem and are not intended as complete care. It is important that you follow up with a doctor, nurse practitioner, or physician?s assistant professor of business for ongoing care. If your symptoms become [...] With: Address: When: Juvenal THORPE [facility], [address] [place] [address] , [place] [address] Business (1) In 3 days 09/26/2023 In the event that this physician does not participate in your insurance network, please consult with your insurance company to find a nearby participating provider. Patient Education Materials: Subchorionic Hematoma A MESSAGE TO ALL PATIENTS REGARDING OPIOIDS PRESCRIPTION OPIOIDS: WHAT YOU NEED TO KNOW Prescription opioids can be used to help relieve wjkcywlg-qb-izdpoc pain and are often prescribed following a [...] health care p (more content not included)... [facility] Prescriptions/Work Noteson 0 09-23-2023 Prescriptions/Work Notes [id number] [facility] US 1st Trimesteron 09-23-2023 1st Trimester [...] least 66% of the gestational sac circumference. [place] Rump Length: 3.2 cm, which corresponds Composite [...] Size = Dates Uterus Position Anteverted Normal [facility] C Urineon 08-29-2023 Bacteria identified Cx [...] Locations R1: This test was performed at: [facility], [address] [place] [address], [address] , , Normal [facility] Comment on above: Performed By: #### 4 [id number] ####[facility] [address] [place] [address] ABO/Rhon 08-27-2023 ABO/Rh Positive Invalid Interpretation Code [facility] Comment on above: Performed By: #### 2 [id number] ####[facility] [address] [place] [address] BLOOD BANKOrdered By: Liza Xavier on 08-27-2023 ABO/Rh Interp Positive Invalid Interpretation Code [facility] BB Subsection BMPon 08-27-2023 Anion gap [Moles/Vol] 11 mmol/L Normal 6-16 [facility] Comment on above: Performed By: #### 1 [id number], [id number], [id number] ####[facility] [address] [place] [address] Calcium [Mass/Vol] 9.3 mg/dL Normal 8.9-11.[address] [facility] Comment on above: Performed By: #### 1 [id number], 1219268, [id number] ####[facility] [address] [place] [address] Chloride [Moles/Vol] 104 mmol/L Normal 101-111 [facility] Comment on above: Performed By: #### 1 [id number], 0187133, 3665812 ####[facility] [address] [place] [address] CO2 [Moles/Vol] 24 mmol/L Normal 21-31 [facility] Comment on above: Performed By: #### 1 9053891, 3288039, 2421472 ####[facility] [address] [place] [address] Creatinine [Mass/Vol] 0.6 mg/dL Normal 0.5-1.3 [facility] Comment on above: Performed By: #### 1 8698811, 7920114, 8481027 ####[facility] [address] [place] [address] Glucose [Mass/Vol] 87 mg/dL Normal 55-[address] [facility] Comment on above: Performed By: #### 1 3645901, 9351461, 3549821 ####[facility] [address] [place] [address] Potassium [Moles/Vol] 3.7 mmol/L Normal 3.5-5.3 [facility] Comment on above: Performed By: #### 1 [id number], 8948886, 0481402 ####[facility] [address] [place] [address] Sodium [Moles/Vol] 135 mmol/L Normal 135-[address] [facility] Comment on above: Performed By: #### 1 4281230, 8826991, 5798628 ####[facility] [address] [place] [address] Urea nitrogen [Mass/Vol] 8 mg/dL Normal 5-[address] [facility] Comment on above: Performed By: #### 1 9808284, 4597894, 8729244 ####[facility] [address] [place] [address] Urea nitrogen/Creatinine [Mass ratio] 13 No Units Normal 10-[address] [facility] Comment on above: Performed By: #### 1 3991439, 7628597, 5481656 ####[facility] [address] [place] [address] BhCG Quanton 08-27-2023 [place] [address] m[IU]/mL High 1-3 F [facility] Comment on above: Result Comment: 'F N ON < 1 - 3' ' 0.2 - 1 WEEK = 5 TO 50' ' 1 - 2 WEEKS = 50 - 500' ' 2 - 3 WEEKS = 100 - 5000' ' 3 - 4 WEEKS = 500 - 14335' ' 4 - 5 WEEKS = 1000 - 99299' ' 5 - 6 WEEKS = 81654 - 101589' ' 6 - 8 WEEKS = 13019 - 742301' ' 8 - 12 WEEKS = 20700 - 142774' Performed By: #### 2 047745 ####[facility] [address] [place] [address] CBC w/ Auto Diffon 4 Basophils/100 WBC (Bld) 0.6 % Normal 0.0-2.0 F [facility] Comment on above: Performed By: #### 1 1689210, 6048029, 2603091 ####[facility] [address] [place] [address] Basophils/Leukocytes Auto (Bld) [Pure # fraction] 0.0 E9/L Normal 0.0-0.[address] [facility] Comment on above: Performed By: #### 1 [id number], 6505019, 3774920 ####[address] [address] Eosinophils (Bld) [#/Vol] 0.1 E9/L Normal 0.0-0.[address] [facility] Comment on above: Performed By: #### 1 1682120, 4912190, 6156904 ####[address] [address] Eosinophils/100 WBC (Bld) 2.0 % Normal 0.0-8.[address] [facility] Comment on above: Performed By: #### 1 6873493, 9736072, 3917984 ####[address] [address] Erythrocyte distribution width (RBC) [Ratio] 15.0 % High 10.9-14.[address] [facility] Comment on above: Performed By: #### 1 8841298, 1348649, 4235372 ####[address] [address] Hematocrit (Bld) [Volume fraction] 37.4 % Normal 34.0-46.[address] [facility] Comment on above: Performed By: #### 1 7381854, 6282830, 0513665 ####[address] [address] Hemoglobin (Bld) [Mass/Vol] 12.7 g/dL Normal 12.0-16.[address] [facility] Comment on above: Performed By: #### 1 6029467, 3760552, 0359980 ####[address] [address] Lymphocytes (Bld) [#/Vol] 2.0 E9/L Normal 1.0-4.[address] [facility] Comment on above: Performed By: #### 1 2368397, 4201579, 5690548 ####[address] [address] Lymphocytes/100 WBC (Bld) 28.1 % Normal 14.0-50.[address] [facility] Comment on above: Performed By: #### 1 0817604, 1277780, 6646825 ####[address] [address] MCH (RBC) [Entitic mass] 28.4 pg Normal 27.0-34.[address] [facility] Comment on above: Performed By: #### 1 5040132, 6352435, 3117949 ####[place] [address] MCHC (RBC) [Mass/Vol] 33.8 g/dL Normal 31.4-36.0 [facility] Comment on above: Performed By: #### 1 4512729, 3500084, 3818482 ####[place] [address] MCV (RBC) [Entitic vol] 84.0 fL Normal 80.0-100.0 F [facility] Comment on above: Performed By: #### 1 8805612, 4665909, 0510384 ####[place] [address] Monocytes (Bld) [#/Vol] 0.5 E9/L Normal 0.2-1.0 F [facility] Comment on above: Performed By: #### 1 2607750, 5313522, 6791507 ####[address] [address] Neutrophils (Bld) [#/Vol] 4.5 E9/L Normal 2.0-7.[address] [facility] Comment on above: Performed By: #### 1 2285791, 0823063, 7416189 ####[address] [address] Neutrophils/100 WBC (Bld) 61.9 % Normal 36.0-75.[address] [facility] Comment on above: Performed By: #### 1 6089929, 9447188, 4332335 ####[address] [place] [address] Platelet mean volume (Bld) [Entitic vol] 7.9 fL Normal 6.4-10.[address] [facility] Comment on above: Performed By: #### 1 1132906, 1080639, 4965318 ####[facility] [address] [place] [address] Platelets (Bld) [#/Vol] 252.0 E9/L Normal 150.0-500.[address] [facility] Comment on above: Performed By: #### 1 3198145, 1688867, 0042270 ####[address] [address] RBC (Bld) [#/Vol] 4.5 E12/L Normal 4.3-5.[address] [facility] Comment on above: Performed By: #### 1 6076829, 6731155, 2220402 ####[facility] [address] [place] [address] WBC corrected for nucl RBC Auto (Bld) [#/Vol] 7.2 E9/L Normal 4.0-11.0 [facility] Comment on above: Performed By: #### 1 8576015, 3947279, 6629570 ####[facility] [address] [place] [address] CHEMISTRYOrdered By: SYSTEM SYSTEM on 08-27-2023 Anion [...] 199 mg/[place] [address] m[IU]/mL High 1 - 3 mIU/mL [facility] Comment on above: Result Comment: 'F N ON < 1 - 3' ' 0.2 - 1 WEEK = 5 TO 50' ' 1 - 2 WEEKS = 50 - 500' ' 2 - 3 WEEKS = 100 - 5000' ' 3 - 4 WEEKS = 500 - 15562' ' 4 - 5 WEEKS = 1000 - 90947' ' 5 - 6 WEEKS = 64402 - 261870' ' 6 - 8 WEEKS = 97891 - 279809' ' 8 - 12 WEEKS = 218[address] - 702208' Potassium [Moles/Vol] 3.7 mmol/L Normal 3.5 - 5.3 mmol/L [facility] Sodium [Moles/Vol] 135 mmol/L Normal 135 - 145 mmol/L [facility] Urea nitrogen [Mass/Vol] 8 mg/dL Normal 5 - 21 mg/d L [facility] Urea nitrogen/Creatinine [Mass ratio] 13 mg/mg Normal 10 - 20 [facility] Consent for Treatmenton 08-08 Consent for Treatment [id number] Normal [facility] Discharge Instructionson Discharge Instructions [id number] Normal [facility] ED Clinical Summaryon 2023 ED Clinical Summary [place] [id number] ED Clinical Summary Person Information Name: KAILYN ACKERMAN [facility] Age: 22 Years : 2000 Sex: Female Language: Brazilian PCP: SELAM HUNTER CNP Marital Status: Single Phone: [phone] MRN: Visit Id: Visit Reason: Vaginal bleeding [...] 08/27/2023 12:34:16 08/27/2023 12:34:16 08/27/2023 12:34:16 ADDRESS: [address] [place] [id number] PHYS DOC NOTES: MEDICAL INFORMATION: Prescriptions Given: Medications to Continue Taking That Have Changed [facility], [address] [place], [place] [id number], [phone] START: cephalexin (Keflex 500 mg Cap) 1 [...] Urinary Tract Infection; Urinary Tract Infection, Adult, Qjnp-un-Feif; Subchorionic Hematoma Follow up: With: Address: When: Juvenal THORPE [facility], [address] [place] [address] [place], [place] [id number] Business (1) In 3 days 08/30/2023 With: Address: When: [place] [address] Business (1) In 3 days DIAGNOSIS: Other antepartum hemorrhage, unspecified trimester; Subchorionic bleed; UTI (urinary tract infection) during ; Vaginal bleeding in Normal [facility] ED Note-Physicianon 08-27-19 ED Note-Physician Basic [...] and Complexity of Problems Differential Diagnosis: [] [facility] Data External documents reviewed: [] My [...] day(s), # 28 cap(s), Refills(s) 0, Pharmacy: [facility], 170, cm, 08/27/23 9:49:00 EDT, Height/Length [...] Juvenal THORPE In 3 days 08/30/[address] [place] [address]- Business (1) Additional Instructions: SELAM HUNTER In 3 days [facility] [place] [address]- Business (1) Additional Instructions: Patient Education and Urinary Tract Infection Urinary Tract Infection, Adult, Yizh-bl-Tsrc Subchorionic Hematoma Attestation Patient seen and evaluated by the physician assistant professor of business. Attending physician was present in the emergency department and s (more content not included)... Normal [facility] Comment on above: Result Comment: Elec [...] provider. Document Revised: 01/09/2022 Document Reviewed: 01/09/2022 [employer] Patient Education ? 2022 [employer] Urinary Tract Infection, Adult A urinary [...] content not included)... Normal [facility] ED Patient Summaryon 024 ED Patient Summary [place] [id number] Patient Discharge Instructions Person Information Name: KAILYN ACKERMAN Age: 22 Years Arrival Date: 08/27/2023 09:37:12 Discharge Diagnosis: Other antepartum hemorrhage, unspecified trimester; Subchorionic bleed; UTI (urinary tract infection) during ; Vaginal bleeding in Primary Care Physician: SELAM HUNTER CNP Provider Information Primary Provider: Emily Harper M.D. Advanced Examining Officer:None The exam and treatment you received in the Emergency Department were for an urgent problem and are not intended as complete care. It is important that you follow up with a doctor, nurse practitioner, or physician?s assistant professor of business for ongoing care. If your symptoms become [...] With: Address: When: [facility] [address] [place] [address] Dr. [facility] [place] [phone] Business (1) In 3 days 08/30/2023 With: Address: When: SELAM HUNTER [address] [place] [address] [place] [phone] Business (1) In 3 days In the event that this physician does not participate in your insurance network, please consult with your insurance company to find a nearby participating provider. Patient Education Materials: and Urinary Tract Infection; Urinary Tract Infection, Adult, Bisj-qx-Qkoj; Subchorionic Hematoma A MESSAGE TO ALL PATIENTS REGARDING OPIOIDS PRESCRIPTION OPIOIDS: WHAT YOU NEED TO KNOW Prescription opioids can be used to help relieve hpqezoca-ym-ckmpqf pain and are often prescribed following a [...] toilet, follo (more content not included)... Normal [facility] HEMATOLOGYOrdered By: SYSTEM SYSTEM on 08-27-2023 [...] 08-27-19 24 Color (U) Light-Yellow Normal Yellow [facility] Comment on above: Result Comment: Micr oscopic readings are only performed on those samples that meet specific criteria set forth by [facility]. Performed By: #### 4 [id number], [id number] ####[address] [address] Glucose (U) [Mass/Vol] Negative Normal Negative [facility] Comment on above: Performed By: #### 4 [id number], [id number] ####[facility] [address] [place] [address] Ketones Ql (U) Negative Normal Negative [facility] Comment on above: Performed By: #### 4 [id number], [id number] ####[facility] [address] [place] [address] UA Blood 3+ Abnormal Negative [facility] Comment on above: Performed By: #### 4 [id number], [id number] ####[facility] [address] [place] [address] UA Bacteria 1+ [id number] Abnormal Trace [facility] Comment on above: Performed By: #### 4 [id number], [id number] ####[address] [address] UA Clarity Turbid Abnormal Clear [facility] Comment on above: Performed By: #### 4 [id number], [id number] ####[facility] [address] [place] [address] UA Hyal Cast 0-3 Normal 0-[address] [facility] Comment on above: Performed By: #### 4 [id number], [id number] ####[facility] [address] [place] [address] UA Leuk Est 250 Stefania/uL Abnormal Negative [facility] Comment on above: Performed By: #### 4 [id number], [id number] ####[facility] [address] [place] [address] UA Mucous Trace Normal Negative [facility] Comment on above: Performed By: #### 4 [id number], [id number] ####[facility] [address] [place] [address] UA Nitrite Negative Normal Negative [facility] Comment on above: Performed By: #### 4 [id number], [id number] ####[facility] [address] [place] [address] UA pH 5.5 Invalid Interpretation Code 5.0-9.[address] [facility] Comment on above: Performed By: #### 4 [id number], [id number] ####[facility] [address] [place] [address] UA Protein 1+ mg/dL Abnormal Negative [facility] Comment on above: Performed By: #### 4 [id number], [id number] ####[facility] [address] [place] [address] UA RBC 4-20 Abnormal 0-[address] [facility] Comment on above: Performed By: #### 4 [id number], [id number] ####[facility] [address] [place] [address] UA Spec Grav 1.018 Invalid Interpretation Code 1.005-1.[address] [facility] Comment on above: Performed By: #### 4 [id number], [id number] ####[facility] [address] [place] [address] UA Squam Epithelial 3-4 Abnormal 0-2 [facility] Comment on above: Performed By: #### 4 [id number], [id number] ####[facility] [address] [place] [address] UA Urobilinogen Negative Normal Negative [facility] Comment on above: Performed By: #### 4 [id number], [id number] ####[facility] [address] [place] [address] UA WBC 6-15 Abnormal 0-[address] [facility] Comment on above: Performed By: #### 4 [id number], [id number] ####[facility] [address] [place] [address] Urobilinogen (U) [Mass/Vol] Negative Normal Negative [facility] Comment on above: Performed By: #### 4 [id number], [id number] ####[facility] [address] [place] [address] UA Spec Desc Clean Catch Normal [facility] Comment on above: Performed By: #### 4 [id number], [id number] ####[facility] [address] [place] [address] URINALYSISOrdered By: SYSTEM SYSTEM on 08-27-2023 Color (U) Light-Yellow 1 (08/27/23 9:55 AM) Normal Yellow [facility] UA Auto SS Comment on above: Interpretive Data: M icroscopic readings are only performed on those samples that meet specific criteria set forth by [facility]. Glucose (U) [Mass/Vol] Negative Normal [...] Reason for Exam: Other (please specify) Report [facility] [phone] IMPRESSION: Single live intrauterine with estimated sonographic [...] heart rate is measured at 120 bpm. [place]-rump length 4.77 mm. Estimated sonographic gestational age [...] Transvaginal Ultrasound Performed FHR (bpm) [address] [facility] US Transvaginalon 08-27-2023 US Transvaginal Exam Date/Time: 08/27/2023 11:55 EDT Reason for Exam: Other (please specify) Report [facility] [phone] Please see ultrasound pelvis, for report of transvaginal examination. Ordering Provider: Hudson Riley FINAL REPORT Dictated: 08/27/2023 12:33 pm Zach Deng MD Signed (Electronic Signature): 08/27/2023 12:33 pm Signed by: Zach Deng MD Transcribed by: KIRK Technologist: SHELLEY Normal [facility] eGFRon 08-27-2023 eGFR 131 mL/min/1.73 m2 Normal >=[address] [facility] Comment on above: Order Comment: Order added by Discern Expert. Performed By: #### 1 [id number], [id number], [id number] ####[facility] [address] [place] [address] [facility] [place] [place] Quanton 08-19-2023 HCG.beta subunit Qn 4261 m[IU]/mL High 1-3 [facility] Comment on above: Result Comment: 'F N ON < 1 - 3' ' 0.2 - 1 WEEK = 5 TO 50' ' 1 - 2 WEEKS = 50 - 500' ' 2 - 3 WEEKS = 100 - 5000' ' 3 - 4 WEEKS = 500 - 72423' ' 4 - 5 WEEKS = 1000 - 62883' ' 5 - 6 WEEKS = 92985 - 407701' ' 6 - 8 WEEKS = 64783 - 129114' ' 8 - 12 WEEKS = 29389 - 015463' Performed By: #### 2 [id number] ####[facility] [address] [place] [address] Physician Orderon 08-19-2023 Physician Order [id number] Normal [facility] CHEMISTRYOrdered By: Juancho benitez on 01-03-2023 [...] ratio] 12 mg/mg Normal 10 - 20 [facility] Remisol CHEMISTRYOrdered By: SYSTEM SYSTEM on 01-03-2023 GFR/1.73 sq M.predicted among non-blacks MDRD (S/P/Bld) [Vol rate/Area] 108 mL/min/1.73 m2 Normal >=59mL/min/1 .73 m2 [facility] Chem S HCG.beta subunit Qn 1572 m[IU]/mL High 1 - 3 mIU/mL [facility] Remisol HEMATOLOGYOrdered By: SYSTEM SYSTEM on 01-03-2023 [...] 16.9 E9/L High 4.0 - 11.0 E9/L [facility] HemeAutoSS Laboratory - Microbiology an d Antimicrobial susceptibilityOrdered By: Asuncion Goncalves on 01-03-2023 Bacteria identified Cx Nom (U) No growth to date Continuing incubation [facility] MICRO OTHER TESTSOrdered By: Juancho Fitch on 01-03-2023 S. pyogenes Ag IA.rapid Ql (Throat) Positive *ABN* (01/03/23 10:52 PM) Invalid Interpretation Code Negative [facility] SEROLOGYOrdered By: Juancho mullins on 01-03-2023 HCG.beta subunit (U) [Moles/Vol] Positive (01/03/23 10:52 PM) Normal [facility] URINALYSISOrdered By: Juancho Ficth on 01-03-2023 Bacteria LM Ql (Urine sed) [...] Interpretation Code Negative [facility] UA Auto SS [place].plasma/[place].R BC (Bld) [Mass ratio] 0-3 /HPF Normal [...] FT UA Auto SS Urobilinogen Qn (U) 1.2399906 {Georgina'U}/dL Normal 0.0 - 1.0 EU/dL [facility] UA Auto SS WBC Auto Ql (U) 1+ *ABN* (01/03/23 10:52 PM) Invalid Interpretation Code Negative [facility] UA Auto SS WBC LM.HPF (Urine sed) [#/Area] 6-15 /HPF Invalid Interpretation Code 0-5/HPF [facility] UA Auto SS Alanine aminotransferase [En zymatic activity/volume] in Serum or PlasmaOrdered By: Jose Silverman on 10-02-2022 ALT [Catalytic activity/Vol] 13 U/L Normal 7-52 [facility] Comment on above: Performed By: #### C BC, CMP, ETOH #### [facility] [address] [place] [address] [place] Albumin [Mass/volume] in Ser um or Plasma by Bromocresol green (BCG) dye binding methoOrdered By: Jose Silverman on 10-02-2022 Albumin BCG dye [Mass/Vol] 5.0 g/dL 3.5-5.7 [facility] Alkaline phosphatase [Enzyma tic activity/volume] in Serum or PlasmaOrdered By: Jose Silverman on 10-02-2022 ALP [Catalytic activity/Vol] 69 U/L Normal 34-104 [facility] Comment on above: Performed By: #### C BC, CMP, ETOH #### [facility] [address] [place] [address] [place] Amphetamine Screen Ql (U)Ord ered By: Jose Silverman on 10-02-2022 Amphetamines Ql (U) Negative Negative [facility] Aspartate aminotransferase [ Enzymatic activity/volume] in Serum or PlasmaOrdered By: Jose Silverman on 10-02-2022 AST [Catalytic activity/Vol] 21 U/L Normal 13-39 [facility] Comment on above: Performed By: #### C BC, CMP, ETOH #### [address] Automated basophil %Ordered By: Jose Silverman on 10-02-2022 Basophils/100 WBC (Bld) 0.5 % Normal . [facility] Comment on above: Performed By: #### C BC, CMP, ETOH #### [address] Automated basophil countOrde red By: Jose Silverman on 10-02-2022 Basophils (Bld) [#/Vol] 0.1 10*3/uL Normal 0.0-0.2 [facility] Comment on above: Result Comment: PERF ORMED BY: [place] [address] PATHOLOGIST SOLID SURFACE FABRICATOR ASHELY CAREY M.D. Performed By: #### C BC, CMP, ETOH #### [address] Automated blood monocyte cou ntOrdered By: Jose Silverman on 10-02-2022 Monocytes (Bld) [#/Vol] 0.7 10*3/uL Normal 0.0-0.8 [facility] Comment on above: Performed By: #### C BC, CMP, ETOH #### [address] Automated eosinophil %Ordere d By: Jose Silverman on 10-02-2022 Eosinophils/100 WBC (Bld) 2.0 % Normal . [facility] Comment on above: Performed By: #### C BC, CMP, ETOH #### [address] Automated eosinophil countOr dered By: Jose Silverman on 10-02-2022 Eosinophils (Bld) [#/Vol] 0.3 10*3/uL Normal 0.0-0.45 [facility] Comment on above: Performed By: #### C BC, CMP, ETOH #### [address] Automated erythrocytes count in urine sediment (number/area)Ordered By: Jose Silverman on 10-02-2022 RBC Auto (Urine sed) [#/Area] 0-1 [HPF] 0-4 [facility] Automated leukocytes count i n urine sediment (number/area)Ordered By: Jose Silverman on 10-02-2022 WBC Auto (Urine sed) [#/Area] 10-19 [HPF] 0-4 [facility] Automated monocyte %Ordered By: Jose Silverman on 10-02-2022 Monocytes/100 WBC (Bld) 5.7 % Normal . F [facility] Comment on above: Performed By: #### C BC, CMP, ETOH #### [facility] [address] Automated neutrophil %Ordere d By: Jose Silverman on 10-02-2022 Neutrophils/100 WBC (Bld) 68.7 % Normal . [facility] Comment on above: Performed By: #### C BC, CMP, ETOH #### [facility] [address] [place] [address] [place] Barbiturates [Presence] in U rine by Screen methodOrdered By: Jose Silverman on 10-02-2022 Barbiturates Screen Ql (U) Negative Negative [facility] Benzodiazepines Screen Ql (U )Ordered By: Jose Silverman on 10-02-2022 Benzodiazepines Ql (U) Negative Negative [facility] Benzoylecgonine [Presence] i n Urine by Screen methodOrdered By: Jose Silverman on 10-02-2022 Benzoylecgonine Screen Ql (U) Negative Negative [facility] Bilirubin Test strip Ql (U)O rdered By: Jose Silverman on 10-02-2022 Bilirubin Ql (U) Negative Negative [facility] Bilirubin.total [Mass/volume ] in Serum or PlasmaOrdered By: Jose Silverman on 10-02-2022 Bilirubin [Mass/Vol] 0.3 mg/dL Normal 0.3-1.0 [facility] Comment on above: Performed By: #### C BC, CMP, ETOH #### [facility] [address] [place] [id number] [place] Calcium [Mass/volume] in Ser um or PlasmaOrdered By: Jose Silverman on 10-02-2022 Calcium [Mass/Vol] 9.6 mg/dL Normal 8.6-10.3 [facility] Comment on above: Performed By: #### C BC, CMP, ETOH #### [facility] [address] [place] [address] [place] Cannabinoids [Presence] in U rine by Screen methodOrdered By: Jose Silverman on 10-02-2022 Cannabinoids Screen Ql (U) Negative Negative [facility] Comment on above: These are unconfirme d results and should not be used for legal purposes. Drug Cut-Off Concentration: AMPH 1000 ng/mL MIAH 200 ng/mL AYAN 200 ng/mL COCM 300 ng/mL OP 300 ng/mL PCP 25 ng/mL THC 20 ng/mL Carbon dioxide, total [Moles /volume] in Serum or PlasmaOrdered By: Jose Silverman on 10-02-2022 CO2 [Moles/Vol] 27.2 mmol/L Normal 21.0-31.0 [facility] Comment on above: Performed By: #### C BC, CMP, ETOH #### [place] [address] [place] Chloride [Moles/volume] in S brian or PlasmaOrdered By: Jose Silverman on 10-02-2022 Chloride [Moles/Vol] 101 mmol/L Normal 98-107 [facility] Comment on above: Performed By: #### C BC, CMP, ETOH #### [place] [address] [place] Color Auto (U)Ordered By: Loli Silverman on 10-02-2022 Color (U) Yellow Yellow [facility] Complete Blood Count Auto Di ffon 10-02-2022 Mean Corpuscular HGB Conc 32.0 g/dL Normal 32.0-35.0 [facility] Comment on above: Performed By: #### C BC, CMP, ETOH #### [place] [address] [place] Monocytes/100 WBC (Bld) 17.72 % Normal 0.00-20.00 [facility] Comment on above: Performed By: #### C BC, CMP, ETOH #### [address] NRBC% 0.0 /100{WBC} Normal 0-0.5 [facility] Comment on above: Performed By: #### C BC, CMP, ETOH #### [address] Comprehensive Metabolic Pane tung 10-02-2022 Albumin [Mass/Vol] 5.0 g/dL Normal 3.5-5.7 [facility] Comment on above: Performed By: #### C BC, CMP, ETOH #### [address] Creatinine Clr Calc Pharmacy 107.48 Normal [facility] Comment on above: Result Comment: PERF ORMED BY: [place] [address] PATHOLOGIST SOLID SURFACE FABRICATOR ASHELY CAREY M.D. Performed By: #### C BC, CMP, ETOH #### [address] GFR/1.73 sq M.predicted MDRD (S/P/Bld) [Vol rate/Area] mL/min/{1.73_m2} Normal [facility] Comment on above: Performed By: #### C BC, CMP, ETOH #### [address] Creatinine [Mass/volume] in Serum or PlasmaOrdered By: Jose Silverman on 10-02-2022 Creatinine [Mass/Vol] 0.89 mg/dL Normal 0.60-1.20 [facility] Comment on above: Performed By: #### C BC, CMP, ETOH #### [place] [address] [place] Dipstick and Microscopicon 0 10-02-2022 Appearance (U) Clear Normal Clear [facility] Comment on above: Order Comment: Name Collection Type:: Clean-Voided Midstream Performed By: #### U RDS, ADDONUAPLUS, CUU, UHCG #### [address] Bacteria,Urine 2+ High None Seen [facility] Comment on above: Order Comment: Name Collection Type:: Clean-Voided Midstream Performed By: #### U RDS, ADDONUAPLUS, CUU, UHCG #### [facility] [address] [place] [address] [place] Bilirubin,Urine Negative Normal Negative [facility] Comment on above: Order Comment: Name Collection Type:: Clean-Voided Midstream Performed By: #### U RDS, ADDONUAPLUS, CUU, UHCG #### [facility] [address] [place] [address] Color (U) Yellow Normal Yellow [facility] Comment on above: Order Comment: Name Collection Type:: Clean-Voided Midstream Performed By: #### U RDS, ADDONUAPLUS, CUU, UHCG #### [facility] [address] [place] [address] Glucose Ql (U) Normal Normal Normal [facility] Comment on above: Order Comment: Name Collection Type:: Clean-Voided Midstream Performed By: #### U RDS, ADDONUAPLUS, CUU, UHCG #### [facility] [address] [place] [address] [place] Hyaline Casts,Urine 0-8 Normal 0-8 [facility] Comment on above: Order Comment: Name Collection Type:: Clean-Voided Midstream Performed By: #### U RDS, ADDONUAPLUS, CUU, UHCG #### [facility] [address] [place] [address] [place] Ketones Ql (U) Negative Normal Negative [facility] Comment on above: Order Comment: Name Collection Type:: Clean-Voided Midstream Performed By: #### U RDS, ADDONUAPLUS, CUU, UHCG #### [facility] [address] [place] [address] [place] Leukocyte esterase Test strip Ql (U) 3+ High Negative [facility] Comment on above: Order Comment: Name Collection Type:: Clean-Voided Midstream Performed By: #### U RDS, ADDONUAPLUS, CUU, UHCG #### [facility] [address] [place] [address] [place] Nitrite,Urine Negative Normal Negative [facility] Comment on above: Order Comment: Name Collection Type:: Clean-Voided Midstream Performed By: #### U RDS, ADDONUAPLUS, CUU, UHCG #### [address] Occult Blood,Urine Negative Normal Negative [facility] Comment on above: Order Comment: Name Collection Type:: Clean-Voided Midstream Performed By: #### U RDS, ADDONUAPLUS, CUU, UHCG #### [address] pH (U) 6.5 [pH] Normal 5.0-9.0 [facility] Comment on above: Order Comment: Name Collection Type:: Clean-Voided Midstream Performed By: #### U RDS, ADDONUAPLUS, CUU, UHCG #### [address] Protein,Urine Negative Normal Negative [facility] Comment on above: Order Comment: Name Collection Type:: Clean-Voided Midstream Performed By: #### U RDS, ADDONUAPLUS, CUU, UHCG #### [address] RBC LM.HPF (Urine sed) [#/Area] 0 /[HPF] Normal 0-4 [facility] Comment on above: Order Comment: Name Collection Type:: Clean-Voided Midstream Performed By: #### U RDS, ADDONUAPLUS, CUU, UHCG #### [address] Specificy [place],Urine 1.021 Normal 1.001-1.030 [facility] Comment on above: Order Comment: Name Collection Type:: Clean-Voided Midstream Performed By: #### U RDS, ADDONUAPLUS, CUU, UHCG #### [address] Squamous Epithelial Cell,Urine 10-19 High 0-2 [facility] Comment on above: Order Comment: Name Collection Type:: Clean-Voided Midstream Performed By: #### U RDS, ADDONUAPLUS, CUU, UHCG #### [facility] [address] [place] [address] Urobilinogen,Urine Normal Normal Normal [facility] Comment on above: Order Comment: Name Collection Type:: Clean-Voided Midstream Performed By: #### U RDS, ADDONUAPLUS, CUU, UHCG #### [facility] [address] [place] [address] WBC,Urine 10-19 High 0-4 [facility] Comment on above: Order Comment: Name Collection Type:: Clean-Voided Midstream Performed By: #### U RDS, ADDONUAPLUS, CUU, UHCG #### [address] Drug Screen,Urineon 10-03-19 Amphetamine Screen,Urine Negative Normal Negative [facility] Comment on above: Performed By: #### U RDS, ADDONUAPLUS, CUU, UHCG #### [place] [address] [place] Barbiturate Screen,Urine Negative Normal Negative [facility] Comment on above: Performed By: #### U RDS, ADDONUAPLUS, CUU, UHCG #### [facility] [address] [place] [address] [place] Benzodiazepines Screen,Urine Negative Normal Negative [facility] Comment on above: Performed By: #### U RDS, ADDONUAPLUS, CUU, UHCG #### [facility] [address] [place] [address] [place] Cannabinoid Screen,Urine Negative Normal Negative [facility] Comment on above: Result Comment: Thes e are unconfirmed results and should not be used for legal purposes. Drug Cut-Off Concentration: AMPH 1000 ng/mL MIAH 200 ng/mL AYAN 200 ng/mL COCM 300 ng/mL OP 300 ng/mL PCP 25 ng/mL THC 20 ng/mL PERFORMED BY: [place] [address] PATHOLOGIST SOLID SURFACE FABRICATOR ASHELY CAREY M.D. Performed By: #### U RDS, ADDONUAPLUS, CUU, UHCG #### [facility] [address] [place] [address] [place] Cocaine Screen,Urine Negative Normal Negative [facility] Comment on above: Performed By: #### U RDS, ADDONUAPLUS, CUU, UHCG #### [facility] [address] [place] [address] [place] Opiate Screen,Urine Negative Normal Negative [facility] Comment on above: Performed By: #### U RDS, ADDONUAPLUS, CUU, UHCG #### [address] Phencyclidine Screen,Urine Negative Normal Negative [facility] Comment on above: Performed By: #### U RDS, ADDONUAPLUS, CUU, UHCG #### [address] Erythrocyte distribution wid th [Ratio] by Automated countOrdered By: Jose Silverman on 10-02-2022 Erythrocyte distribution width (RBC) [Ratio] 15.8 % High 11.9-15.3 [facility] Comment on above: Performed By: #### C BC, CMP, ETOH #### [address] Erythrocytes [#/volume] in B lood by Automated countOrdered By: Jose Silverman on 10-02-2022 RBC (Bld) [#/Vol] 5.31 10*6/uL High 3.60-5.00 [facility] Comment on above: Performed By: #### C BC, CMP, ETOH #### [place] [address] [place] Ethanol [Mass/volume] in Ser um or PlasmaOrdered By: Jose Silverman on 10-02-2022 Ethanol [Mass/Vol] mg/dL Normal [facility] Comment on above: Performed By: #### C BC, CMP, ETOH #### [place] [address] [place] Ethanol [Mass/Vol] TNP [facility] Comment on above: Test not performed Ethyl Alcohol Profileon 09-08 Percent Ethanol Not performed Normal [facility] Comment on above: Result Comment: PERF ORMED BY: [place] [address] PATHOLOGIST SOLID SURFACE FABRICATOR ASHELY CAREY M.D. Performed By: #### C BC, CMP, ETOH #### [facility] [facility] [address] [id number] [place] Glucose [Mass/volume] in Ser um or PlasmaOrdered By: Jose Silverman on 10-02-2022 Glucose [Mass/Vol] 98 mg/dL Normal 70-100 [facility] Comment on above: ADA recommended refe rence rangeRandom Glucose Reference Range is dependent on time and content of last meal. Glucose of more than 200 mg/dL in a nonstressed, ambulatory subject supports the diagnosis of Diabetes Mellitus. Result Comment: [place] Glucose Reference Range is dependent on time and content of last meal. Glucose of more than 200 mg/dL in a nonstressed, ambulatory subject supports the diagnosis of Diabetes Mellitus. ADA recommended reference range Performed By: #### C BC, CMP, ETOH #### [address] [id number] [place] HCG ( test) IA.rapi d Ql (U)Ordered By: Jose Silverman on 10-02-2022 HCG ( test) Ql (U) Negative [facility] HCG,Urineon 10-02-2022 Beta HCG ( test) Ql (U) Negative Normal [facility] Comment on above: Order Comment: Name Collection Type:: Clean-Voided Midstream Result Comment: PERF ORMED BY: [place] [address] PATHOLOGIST SOLID SURFACE FABRICATOR ASHELY CAREY M.D. Performed By: #### U RDS, ADDONUAPLUS, CUU, UHCG #### [facility] [address] [place] [address] [place] Hematocrit [Volume Fraction] of Blood by Automated countOrdered By: Jose Silverman on 10-02-2022 Hematocrit (Bld) [Volume fraction] 41.7 % Normal 34.0-46.4 [facility] Comment on above: Performed By: #### C BC, CMP, ETOH #### [address] Hemoglobin [Mass/volume] in BloodOrdered By: Jose Silverman on 10-02-2022 Hemoglobin (Bld) [Mass/Vol] 13.3 g/dL Normal 11.8-15.4 [facility] Comment on above: Performed By: #### C BC, CMP, ETOH #### [address] Ketones Auto test strip (U) [Mass/Vol]Ordered By: Jose Silverman on 10-02-2022 Ketones (U) [Mass/Vol] Negative Negative [facility] Laboratory - UrinalysisOrder ed By: Jose Silverman on 10-02-2022 Hyaline casts LM Ql (Urine sed) 0-8 [LPF] 0-8 [facility] Leukocytes [#/volume] correc ruby for nucleated erythrocytes in Blood by Automated counOrdered By: Jose Silverman on 10-02-2022 WBC corrected for nucl RBC Auto (Bld) [#/Vol] 12.9 10*3/uL 3.8-11.6 [facility] Leukocytes [#/volume] in Blo od by Automated countOrdered By: Jose Silverman on 10-02-2022 WBC (Bld) [#/Vol] 12.9 10*3/uL High 3.8-11.6 [facility] Comment on above: Performed By: #### C BC, CMP, ETOH #### [place] [address] [place] Lymphocytes [#/volume] in Bl ood by Automated countOrdered By: Jose Silverman on 10-02-2022 Lymphocytes (Bld) [#/Vol] 3.0 10*3/uL Normal 1.00-4.8 [facility] Comment on above: Performed By: #### C BC, CMP, ETOH #### [place] [address] [place] Lymphocytes/100 leukocytes i n Blood by Automated countOrdered By: Jose Silverman on 10-02-2022 Lymphocytes/100 WBC (Bld) 23.1 % Normal . [facility] Comment on above: Performed By: #### C BC, CMP, ETOH #### [address] MCH [Entitic mass] by Automa ruby countOrdered By: Jose Silverman on 10-02-2022 MCH (RBC) [Entitic mass] 25.2 pg Normal 24.7-34.3 [facility] Comment on above: Performed By: #### C BC, CMP, ETOH #### [address] MCHC Auto (RBC) [Mass/Vol]Or dered By: Jose Silverman on 10-02-2022 MCHC (RBC) [Mass/Vol] 32.0 g/dL 32.0-35.0 [facility] MCV [Entitic volume] by Auto mated countOrdered By: Jose Silverman on 10-02-2022 MCV (RBC) [Entitic vol] 78.5 fL Low 80-100 [facility] Comment on above: Performed By: #### C BC, CMP, ETOH #### [address] Monocyte distribution width [Entitic volume] in Blood by AutomatedOrdered By: Jose Silverman on 10-02-2022 Monocyte distribution width Auto (Bld) [Entitic vol] 17.72 % 0.00-20.00 [facility] Neutrophils [#/volume] in Bl ood by Automated countOrdered By: Jose Silverman on 10-02-2022 Neutrophils (Bld) [#/Vol] 8.9 10*3/uL High 1.8-7.7 [facility] Comment on above: Performed By: #### C BC, CMP, ETOH #### [address] Nitrite Test strip Ql (U)Ord ered By: Jose Silverman on 10-02-2022 Nitrite Ql (U) Negative Negative [facility] No Panel InformationOrdered By: Jose Silverman on 10-02-2022 Estimated GFR (CKD-EPI) > 60.0 mL/Min [facility] Creatinine Clearance (Chem 107.48 [facility] Nucleated erythrocytes [Pres ence] in Blood by Automated countOrdered By: Jose Silverman on 10-02-2022 Nucleated RBC Auto Ql (Bld) 0.0 /100{WBC} 0-0.5 [facility] Opiates [Presence] in Urine by Screen methodOrdered By: Jose Silverman on 10-02-2022 Opiates Screen Ql (U) Negative Negative [facility] Phencyclidine Screen Ql (U)O rdered By: Jose Silverman on 10-02-2022 Phencyclidine Ql (U) Negative Negative [facility] Platelet mean volume [Entiti c volume] in Blood by Automated countOrdered By: Jose Silverman on 10-02-2022 Platelet mean volume (Bld) [Entitic vol] 7.7 fL Normal 6.3-10.7 [facility] Comment on above: Performed By: #### C BC, CMP, ETOH #### [facility] [address] [place] [address] Platelets [#/volume] in Bloo d by Automated countOrdered By: Jose Silverman on 10-02-2022 Platelets (Bld) [#/Vol] 342 10*3/uL Normal 150-450 [facility] Comment on above: Performed By: #### C BC, CMP, ETOH #### [facility] [address] [place] [address] Potassium [Moles/volume] in Serum or PlasmaOrdered By: Jose Silverman on 10-02-2022 Potassium [Moles/Vol] 3.8 mmol/L Normal 3.5-5.1 [facility] Comment on above: Performed By: #### C BC, CMP, ETOH #### [facility] [address] [place] [address] [place] Protein Auto test strip (U) [Mass/Vol]Ordered By: Jose Silverman on 10-02-2022 Protein (U) [Mass/Vol] Negative Negative [facility] Protein [Mass/volume] in Ser um or PlasmaOrdered By: Jose Silverman on 10-02-2022 Protein [Mass/Vol] 8.7 g/dL Normal 6.4-8.9 [facility] Comment on above: Performed By: #### C BC, CMP, ETOH #### [address] Serum globulin measurement b y calculation (mass/volume)Ordered By: Jose Silverman on 10-02-2022 Globulin (S) [Mass/Vol] 3.7 g/dL Normal F [facility] Comment on above: Performed By: #### C BC, CMP, ETOH #### [address] Serum or plasma albumin/glob ulin mass ratioOrdered By: Jose Silverman on 10-02-2022 Albumin/Globulin [Mass ratio] 1.4 {ratio} Normal [facility] Comment on above: Performed By: #### C BC, CMP, ETOH #### [address] Serum or plasma anion gap de terminationOrdered By: Jose Silverman on 10-02-2022 Anion gap [Moles/Vol] 12.6 mmol/L Normal 6.0-15.0 [facility] Comment on above: Performed By: #### C BC, CMP, ETOH #### [address] Sodium [Moles/volume] in Ser um or PlasmaOrdered By: Jose Silverman on 10-02-2022 Sodium [Moles/Vol] 137 mmol/L Normal 136-145 [facility] Comment on above: Performed By: #### C BC, CMP, ETOH #### [address] Specific gravity Auto test s trip (U) [Rel density]Ordered By: Jose Silverman on 10-02-2022 Specific gravity (U) [Rel density] 1.021 1.001-1.030 [facility] Squamous epithelial cells de tection in urine sediment by light microscopyOrdered By: Jose Silverman on 10-02-2022 Epithelial cells.squamous LM Ql (Urine sed) 10-19 [HPF] 0-2 [facility] Urea nitrogen [Mass/volume] in Serum or PlasmaOrdered By: Jose Silverman on 10-02-2022 Urea nitrogen [Mass/Vol] 18 mg/dL Normal 7-25 [facility] Comment on above: Performed By: #### C BC, CMP, ETOH #### [facility] [address] [place] [address] [place] Urine Cultureon 10-02-2022 Bacteria identified Cx Nom (U) ORGANISM: Strep agalactiae - (group b) (O:STRAGA) [place] Count 50,000 PERFORMED BY: [place] [address] PATHOLOGIST SOLID SURFACE FABRICATOR ASHELY CAREY M.D. Normal [facility] Comment on above: Performed By: #### U RDS, ADDONUAPLUS, CUU, UHCG #### [facility] [address] [place] [address] Urine bacteria detection by automated methodOrdered By: Jose Silverman on 10-02-2022 Bacteria Auto Ql (U) 2+ None Seen [facility] Urine clarity by refractomet ry automatedOrdered By: Jose Silverman on 10-02-2022 Clarity Refractometry automated (U) Clear Clear [facility] Urine glucose measurement by automated test strip (mass/volume)Ordered By: Jose Silverman on 10-02-2022 Glucose Auto test strip (U) [Mass/Vol] Normal mg/dL Normal [facility] Urine hemoglobin detection b y automated test stripOrdered By: Jose Silverman on 10-02-2022 Hemoglobin Auto test strip Ql (U) Negative Negative [facility] Urine leukocyte esterase det ection by automated test stripOrdered By: Jose Silverman on 10-02-2022 Leukocyte esterase Auto test strip Ql (U) 3+ Negative [facility] Urobilinogen Auto test strip (U) [Mass/Vol]Ordered By: Jose Silverman on 10-02-2022 Urobilinogen (U) [Mass/Vol] Normal mg/dL Normal [facility] pH Auto test strip (U)Ordere d By: Jose Silverman on 10-02-2022 pH (U) 6.5 [pH] 5.0-9.0 [facility] Quick Strepon 09-25-2022 S. pyogenes Org specific cx Ql (Throat) Negative Appear Here Other Quick Strep Appear Here Other CHEMISTRYOrdered By: SYSTEM SYSTEM on 09-06-2022 [...] AM) Normal Negative [facility] UA Auto SS [place].plasma/[place].R BC (Bld) [Mass ratio] >30 /HPF Invalid [...] AM) Invalid Interpretation Code 1.005 - 1.030 [facility] UA Auto SS UA Spec Desc Clean Catch (09/06/22 11:19 AM) Normal [facility] UA Auto SS Urobilinogen Qn (U) 0.6876540 {Georgina'U}/dL Normal 0.0 - 1.0 EU/dL FT UA Auto SS WBC Auto Ql (U) Negative (09/06/22 11:19 AM) Normal Negative [facility] UA Auto SS WBC LM.HPF (Urine sed) [#/Area] 0-5 /HPF Normal 0-5/HPF [facility] UA Auto SS BLOOD BANKOrdered By: John Montague on 08-14-2022 ABO/Rh Interp Positive Invalid Interpretation Code [facility] BB Subsection CHEMISTRYOrdered By: SYSTEM SYSTEM on [...] PM) Normal Negative [facility] UA Auto SS [place].plasma/[place].R BC (Bld) [Mass ratio] 0-3 /HPF Normal [...] [facility] UA Auto SS Urobilinogen Qn (U) 0.5884956 {Georgina'U}/dL Normal 0.0 - 1.0 EU/dL [facility] UA Auto SS WBC Auto Ql (U) Negative (08/14/22 7:29 PM) Normal Negative [facility] UA Auto SS WBC LM.HPF (Urine sed) [#/Area] 0-5 /HPF Normal 0-5/HPF [facility] UA Auto SS CHLAMYDIA/GONOCOCCUS ALFREDO (SW AB/URINE/PAPon 07-15-2022 Chlamydia trachomatis, ALFREDO Negative Normal Negative [facility] Comment on above: Performed By: #### C T/NGNA #### [facility] [address] [address] [address] Cyril Hendrciks Neisseria gonorrhoeae, ALFREDO Negative Normal Negative [facility] Comment on above: Performed By: #### C T/NGNA #### [facility] [address] [address] [address] Cyril Hendricks VAGINITIS/VAGINOSIS DNA PROB Maurice 07-13-2022 Krista species Negative Normal Negative [facility] Comment on above: Performed By: #### U MICRO, UACSIND #### [facility] [address] [address] [address] Cyril Hendricks Gardnerella vaginalis Positive Abnormal Negative [facility] Comment on above: Performed By: #### U MICRO, UACSIND #### [facility] [address] [address] [address] Cyril Hendricks Trichomonas vaginalis Negative Normal Negative [facility] Comment on above: Performed By: #### U MICRO, UACSIND #### [facility] [address] [address] [address] Cyril Hendricks COVID/FLU RT-PCRon SARS-CoV-2 (COVID-19) RNA ALFREDO+probe Ql (Unsp spec) Negative Appear Here Other COVID/FLU RT-PCR Negative [employer] Other Quick Strepon 06-24-2022 S. pyogenes Org specific cx Ql (Throat) Negative Appear Here Other Quick Strep Appear Here Other CBC AUTO DIFFon 01-08-2022 BASO # 0.1 103/ul Normal 0.0-0.1 [facility] Comment on above: Performed By: #### C BC #### [facility] [address] [address] [address] Cyril Hendricks Basophils/100 WBC (Bld) 0.4 % Normal 0.2-2.0 [facility] Comment on above: Performed By: #### C BC #### [facility] [address] [address] [address] Cyril Hendricks EO # 0.1 103/ul Normal 0.0-0.7 [facility] Comment on above: Performed By: #### C BC #### [facility] [address] [place] [address] Dr. Cyril Hendricks Eosinophils/100 WBC (Bld) 0.9 % Normal 0.9-7.0 [facility] Comment on above: Performed By: #### C BC #### [facility] [address] [address] [address] Cyril Hendricks Erythrocyte distribution width (RBC) [Ratio] 12.3 % Normal 11.0-15.0 [facility] Comment on above: Performed By: #### C BC #### [facility] [address] [place] [address] Dr. Cyril Hendricks Hematocrit (Bld) [Volume fraction] 30.0 % Critically low 36.0-48.0 [facility] Comment on above: Performed By: #### C BC #### [facility] [address] [place] [address] Dr. Cyril Hendricks Hemoglobin (Bld) [Mass/Vol] 10.2 g/dL Critically low 12.0-16.0 [facility] Comment on above: Performed By: #### C BC #### [facility] [address] [place] [address] Dr. Cyril Hendricks IG # 0.05 10e3/ul Critically high 0.00-0.03 [facility] Comment on above: Performed By: #### C BC #### [facility] [address] [place] [address] Dr. Cyril Hendricks IG % 0.4 % Normal 0.0-0.5 [facility] Comment on above: Performed By: #### C BC #### [facility] [address] [place] [address] Dr. Cyril Hendricks LYMPH # 2.8 103/ul Normal 1.2-3.8 [facility] Comment on above: Performed By: #### C BC #### [facility] [address] [place] [address] Dr. Cyril Hendricks Lymphocytes/100 WBC (Bld) 19.7 % Critically low 20.5-60.0 [facility] Comment on above: Performed By: #### C BC #### [facility] [address] [place] [address] Dr. Cyril Hendricks MANUAL DIFF REQ NO [facility] Comment on above: Performed By: #### C BC #### [facility] [address] [place] [address] Dr. Cyril Hendricks MCH (RBC) [Entitic mass] 30.6 pg Normal 26.7-34.0 [facility] Comment on above: Performed By: #### C BC #### [facility] [address] [place] [address] Dr. Cyril Hendricks MCHC (RBC) [Mass/Vol] 34.0 g/dL Normal 29.9-35.2 [facility] Comment on above: Performed By: #### C BC #### [facility] [address] [place] [address] Dr. Cyril Hendricks MCV (RBC) [Entitic vol] 90.1 fL Normal 81.0-99.0 [facility] Comment on above: Performed By: #### C BC #### [facility] [address] [place] [address] Dr. Cyril Hendricks MONO # 0.8 103/ul Normal 0.3-0.8 [facility] Comment on above: Performed By: #### C BC #### [facility] [address] [place] [address] Dr. Cyril Hendricks Monocytes/100 WBC (Bld) 5.9 % Normal 1.7-12.0 [facility] Comment on above: Performed By: #### C BC #### [facility] [address] [place] [address] Dr. Cyril Hendricks NEUT # 10.3 103/ul Critically high 1.4-6.5 [facility] Comment on above: Performed By: #### C BC #### [facility] [address] [place] [address] Dr. Cyril Hendricks Neutrophils/100 WBC (Bld) 72.7 % Normal 43.0-75.0 [facility] Comment on above: Performed By: #### C BC #### [facility] [address] [place] [address] Dr. Cyril Hendricks Platelet mean volume (Bld) [Entitic vol] 9.8 fL Normal 9.5-13.5 [facility] Comment on above: Performed By: #### C BC #### [facility] [address] [place] [address] Dr. Cyril Hendricks PLT 207 103/ul Normal 150-450 [facility] Comment on above: Performed By: #### C BC #### [facility] [address] [place] [address] Dr. Cyril Hendricks RBC 3.33 106/ul Critically low 4.20-5.40 [facility] Comment on above: Performed By: #### C BC #### [facility] [address] [place] [address] Dr. Cyril Hendricks WBC 14.2 103/ul Critically high 4.0-11.0 [facility] Comment on above: Performed By: #### C BC #### [facility] [address] [place] [address] Dr. Cyril Hendricks CBC AUTO DIFFon 01-07-2022 BASO # 0.1 103/ul Normal 0.0-0.1 [facility] Comment on above: Performed By: #### U MICRO, UACSIND #### [facility] [address] [place] [address] Dr. Cyril Hendricks Basophils/100 WBC (Bld) 0.5 % Normal 0.2-2.0 [facility] Comment on above: Performed By: #### U MICRO, UACSIND #### [facility] [address] [place] [address] Dr. Cyril Hendricks EO # 0.1 103/ul Normal 0.0-0.7 [facility] Comment on above: Performed By: #### U MICRO, UACSIND #### [facility] [address] [place] [address] Dr. Cyril Hendricks Eosinophils/100 WBC (Bld) 0.9 % Normal 0.9-7.0 [facility] Comment on above: Performed By: #### U MICRO, UACSIND #### [facility] [address] [place] [address] Dr. Cyril Hendricks Erythrocyte distribution width (RBC) [Ratio] 12.4 % Normal 11.0-15.0 [facility] Comment on above: Performed By: #### U MICRO, UACSIND #### [facility] [address] [place] [address] Dr. Cyrli Hendricks Hematocrit (Bld) [Volume fraction] 34.3 % Critically low 36.0-48.0 [facility] Comment on above: Performed By: #### U MICRO, UACSIND #### [facility] [address] [place] [address] Dr. Cyril Hendricks Hemoglobin (Bld) [Mass/Vol] 11.6 g/dL Critically low 12.0-16.0 [facility] Comment on above: Performed By: #### U MICRO, UACSIND #### [facility] [address] [place] [address] Dr. Cyril Hendricks IG # 0.06 10e3/ul Critically high 0.00-0.03 [facility] Comment on above: Performed By: #### U MICRO, UACSIND #### [facility] [address] [place] [address] Dr. Cyril Hendricks IG % 0.4 % Normal 0.0-0.5 [facility] Comment on above: Performed By: #### U MICRO, UACSIND #### [facility] [address] [address] [address] Cyril Hendricks LYMPH # 3.1 103/ul Normal 1.2-3.8 [facility] Comment on above: Performed By: #### U MICRO, UACSIND #### [facility] [address] [place] [address] Dr. Cyril Hendricks Lymphocytes/100 WBC (Bld) 20.4 % Critically low 20.5-60.0 [facility] Comment on above: Performed By: #### U MICRO, UACSIND #### [facility] [address] [place] [address] Dr. Cyril Hendricks MANUAL DIFF REQ NO Normal [facility] Comment on above: Performed By: #### U MICRO, UACSIND #### [facility] [address] [place] [address] Dr. Cyril Hendricks MCH (RBC) [Entitic mass] 30.6 pg Normal 26.7-34.0 [facility] Comment on above: Performed By: #### U MICRO, UACSIND #### [facility] [address] [place] [address] Dr. Cyril Hendricks MCHC (RBC) [Mass/Vol] 33.8 g/dL Normal 29.9-35.2 [facility] Comment on above: Performed By: #### U MICRO, UACSIND #### [facility] [address] [place] [address] Dr. Cyril Hendricks MCV (RBC) [Entitic vol] 90.5 fL Normal 81.0-99.0 [facility] Comment on above: Performed By: #### U MICRO, UACSIND #### [facility] [address] [place] [address] Dr. Cyril Hendricks MONO # 0.9 103/ul Critically high 0.3-0.8 [facility] Comment on above: Performed By: #### U MICRO, UACSIND #### [facility] [address] [place] [address] Dr. Cyril Hendricks Monocytes/100 WBC (Bld) 6.2 % Normal 1.7-12.0 [facility] Comment on above: Performed By: #### U MICRO, UACSIND #### [facility] [address] [address] [address] Cyril Hendricks NEUT # 10.9 103/ul Critically high 1.4-6.5 [facility] Comment on above: Performed By: #### U MICRO, UACSIND #### [facility] [address] [address] [address] Cyril Hendricks Neutrophils/100 WBC (Bld) 71.6 % Normal 43.0-75.0 [facility] Comment on above: Performed By: #### U MICRO, UACSIND #### [facility] [address] [place] [address] Dr. Cyril Hendricks Platelet mean volume (Bld) [Entitic vol] 11.1 fL Normal 9.5-13.5 [facility] Comment on above: Performed By: #### U MICRO, UACSIND #### [facility] [address] [place] [address] Dr. Cyril Hendricks PLT 240 103/ul Normal 150-450 [facility] Comment on above: Performed By: #### U MICRO, UACSIND #### [facility] [address] [place] [address] Dr. Cyril Hendricks RBC 3.79 106/ul Critically low 4.20-5.40 [facility] Comment on above: Performed By: #### U MICRO, UACSIND #### [facility] [address] [place] [address] Dr. Cyril Hendricks WBC 15.3 103/ul Critically high 4.0-11.0 [facility] Comment on above: Performed By: #### U MICRO, UACSIND #### [facility] [address] [place] [address] Dr. Cyril Hendricks [facility]on SARS-CoV-2 (COVID-19) RNA ALFREDO+probe Ql (Unsp spec) Not detected Normal NOT DETECTED [facility] Comment on above: Result Comment: When [...] for this test is supported by the [place] of Health and Human Service's declaration that [...] used). Performed By: #### H CVPCRR #### [facility] [address] [place] [address] Dr. Cyril Hendricks DRUG SCREEN RAPID (URINE)on 01-07-2022 AMP Negative Normal NEGATIVE [facility] Comment on above: Performed By: #### U MICRO, UACSIND #### [facility] [address] [place] [address] Dr. Cyril Hendricks BAR Negative Normal NEGATIVE [facility] Comment on above: Performed By: #### U MICRO, UACSIND #### [facility] [address] [place] [address] Dr. Cyril Hendricks BUP Negative Normal NEGATIVE [facility] [facility] Comment on above: Performed By: #### U MICRO, UACSIND #### [facility] [address] [place] [address] Dr. Cyril Hendricks BZO Negative Normal NEGATIVE [facility] Comment on above: Performed By: #### U MICRO, UACSIND #### [facility] [address] [place] [address] Dr. Cyril Hendricks DARIN Negative Normal NEGATIVE [facility] Comment on above: Performed By: #### U MICRO, UACSIND #### [facility] [address] [place] [address] Dr. Cyril Hendricks CUT-OFFS SEE BELOW Normal [facility] Comment on above: Result [...] Performed By: #### U MICRO, UACSIND #### [facility] [address] [place] [address] Dr. Cyril Hendricks DRUG CUT HEADER DRUG CLASS TEST SYSTEM CUT-OFF CONCENTRATIONS ARE FOLLOWS: Normal [facility] Comment on above: Performed By: #### U MICRO, UACSIND #### [facility] [address] [place] [address] Dr. Cyril Hendricks mAMP Negative Normal NEGATIVE [facility] Comment on above: Performed By: #### U MICRO, UACSIND #### [facility] [address] [place] [address] Dr. Cyril Hendricks MTD Negative Normal NEGATIVE [facility] Comment on above: Performed By: #### U MICRO, UACSIND #### [facility] [address] [address] [address] Cyril Hendricks OPI Negative Normal NEGATIVE [facility] Comment on above: Performed By: #### U MICRO, UACSIND #### [facility] [address] [address] [address] Cyril Hendricks OXY Negative Normal NEGATIVE [facility] Comment on above: Performed By: #### U MICRO, UACSIND #### [facility] [address] [address] [address] Cyril Hendricks PCP Negative Normal NEGATIVE [facility] Comment on above: Performed By: #### U MICRO, UACSIND #### [facility] [address] [place] [address] Dr. Cyril Hendricks PPX Negative Normal NEGATIVE [facility] Comment on above: Performed By: #### U MICRO, UACSIND #### [facility] [address] [place] [address] Dr. Cyril Hendricks TCA Negative Normal NEGATIVE [facility] Comment on above: Performed By: #### U MICRO, UACSIND #### [facility] [address] [place] [address] Dr. Cyril Hendricks THC Negative Normal NEGATIVE [facility] Comment on above: Performed By: #### U MICRO, UACSIND #### [facility] [address] [place] [address] Dr. Cyril Hendricks TYPE AND SCREENon 01-07-2022 TYPE AND SCREEN Negative Normal [facility] Comment on above: Performed By: #### H CVPCRR #### [facility] [address] [place] [address] Dr. Cyril Hendricks CULTURE URINEon 12-29-2021 CULTURE URINE Culture Observations: NO GROWTH. Normal [facility] Comment on above: Performed By: #### U RCX #### [facility] [address] [place] [address] Dr. 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 Cyril Hendricks Clarity (U) SL CLOUDY Abnormal CLEAR [facility] Comment on above: Performed By: #### U MICRO, UACSIND #### [facility] [address] [place] [address] Dr. Cyril Hendricks Color (U) LT. YELLOW Normal YELLOW [facility] Comment on above: Performed By: #### U MICRO, UACSIND #### [facility] [address] [place] [address] Dr. Cyril Hendricks Glucose Ql (U) Negative Normal NEGATIVE [facility] Comment on above: Performed By: #### U MICRO, UACSIND #### [facility] [address] [address] [address] Cyril Hendricks Hemoglobin Ql (U) Negative Normal NEGATIVE [facility] Comment on above: Performed By: #### U MICRO, UACSIND #### [facility] [address] [address] [address] Cyril Hendricks Ketones Ql (U) Negative Normal NEGATIVE [facility] Comment on above: Performed By: #### U MICRO, UACSIND #### [facility] [address] [address] [address] Cyril Hendricks LEUKOCYTES LARGE Abnormal NEGATIVE [facility] Comment on above: Performed By: #### U MICRO, UACSIND #### [facility] [address] [place] [address] Dr. Cyril Hendricks Nitrite Ql (U) Negative Normal NEGATIVE [facility] Comment on above: Performed By: #### U MICRO, UACSIND #### [facility] [address] [place] [address] Dr. Cyril Hendricks pH (U) 6.5 [pH] Normal 5-9 [facility] Comment on above: Performed By: #### U MICRO, UACSIND #### [facility] [address] [place] [address] Dr. Cyril Hendricks SPEC GRAVITY 1.010 Normal 1.005-<=1.02 5 [facility] Comment on above: Performed By: #### U MICRO, UACSIND #### [facility] [address] [place] [address] Dr. Cyril Hendricks UA PROTEIN Negative Normal NEGATIVE/ TRACE [facility] Comment on above: Performed By: #### U MICRO, UACSIND #### [facility] [address] [place] [address] Dr. Cyril Hendricks UR MICRO IND INDICATED Normal [facility] Comment on above: Performed By: #### U MICRO, UACSIND #### [facility] [address] [place] [address] Dr. Cyril Hendricks Urobilinogen Qn (U) 0.2 {Georgina'U}/dL Normal 0.2 - 1. 0 [facility] Comment on above: Performed By: #### U MICRO, UACSIND #### [facility] [address] [place] [address] Dr. Cyril Hendricks URINE MICROSCOPIC ONLYon BACTERIA SMALL Abnormal NONE SEEN [facility] Comment on above: Performed By: #### U MICRO, UACSIND #### [facility] [address] [address] [address] Cyril Hendricks Bacteria identified Cx Nom (U) INDICATED Normal [facility] Comment on above: Performed By: #### U MICRO, UACSIND #### [facility] [address] [place] [address] Dr. Cyril Hendricks CAST NONE SEEN Normal NONE SEEN [facility] Comment on above: Performed By: #### U MICRO, UACSIND #### [facility] [address] [place] [address] Dr. Cyril Hendricks Crystals LM Nom (Urine sed) NONE SEEN Normal NONE SEEN [facility] Comment on above: Performed By: #### U MICRO, UACSIND #### [facility] [address] [place] [address] Dr. Cyril Hendricks Epithelial cells LM Ql (Urine sed) MANY Abnormal NONE SEEN /RARE [facility] Comment on above: Performed By: #### U MICRO, UACSIND #### [facility] [address] [place] [address] Dr. Cyril Hendricks MUCOUS NONE SEEN Normal NONE SEEN [facility] Comment on above: Performed By: #### U MICRO, UACSIND #### [facility] [address] [place] [address] Dr. Cyril Hendricks RBC 0-2 Normal 0-2 [facility] Comment on above: Performed By: #### U MICRO, UACSIND #### [facility] [address] [place] [address] Dr. Cyril Hendricks WBC 10-20 Abnormal NONE SEEN [facility] Comment on above: Performed By: #### U MICRO, UACSIND #### [facility] [address] [place], [place] [address] Dr. Cyril Hendricks GROUP B STREP CULTUREon 12-07 S. agalactiae Ag Ql (Unsp spec) Culture Observations: NEGATIVE FOR GROUP B STREPTOCOCCUS. Normal [facility] Comment on above: Performed By: #### G BSCX #### [facility] [address] [place], [place] [address] Dr. Cyril Hendricks SSAon 12-13-2021 SSA <0.3 Normal <7.0 [facility] Comment on above: Result Comment: Reference Range: <7.0 Negative 7.0-10.0 Equivocal >10.0 Positive Performed By: #### S SARO, TSH, FT4, SSBLA #### [facility] [employer] [address] [place] [id number] Coin Machine Mechanic: Homer Hoffman MD SSBon 12-13-2021 SSB <0.3 Normal <7.0 [facility] Comment on above: Result Comment: Reference Range: <7.0 Negative 7.0-10.0 Equivocal >10.0 Positive Performed By: #### S SARO, TSH, FT4, SSBLA #### [facility] [address] [place] [address] [phone] [employer] Machine Mechanic: Homer Hoffman MD No Panel Informationon 12-12 [facility] T4, Freeon 12-12-2021 Thyroxine, Free 0.98 ng/dL 0.93 - 1.70 ng/dL [facility] TSHon 12-12-2021 TSH Qn 4.35 m[IU]/L [facility] Thyroid Stim. Horm.on 2021 Thyroid Stim. Horm. 4.35 uIU/mL Normal 0.30-5.00 [facility] Comment on above: Performed By: #### S SARO, TSH, FT4, SSBLA #### [facility] [address] [place] [id number] [employer] Machine Mechanic: Homer Hoffman MD Thyroxine, Freeon 12-12-2021 Thyroxine, Free 0.98 ng/dL Normal 0.93-1.70 [facility] Comment on above: Performed By: #### S SARO, TSH, FT4, SSBLA #### [facility] [employer]) [address] [place] [address] Coin Machine Mechanic: Homer Hoffman MD US PREG BIOPHY W [...] by: SOFIA KABA Date: 2021-11-27 13:55 Normal [facility] COVID + FLU Quick Testingon 11-13-2021 SARS-CoV-2 (COVID-19) RNA ALFREDO+probe Ql (Unsp spec) Negative [facility] [employer] Other COVID + FLU Quick Testing Negative [facility] [employer] Other GLUCOSE - 1HRon 10-23-2021 Glucose [Mass/Vol] 83 mg/dL Normal 74-106 [facility] Comment on above: Performed By: #### G LU1HR #### [facility] [address] [place] [address] Dr. Cyril eHndricks CHLAMYDIA/GONOCOCCUS ALFREDO ( AB/URINE/PAPon 10-05-2021 Chlamydia trachomatis, ALFREDO Negative Normal Negative [facility] Comment on above: Performed By: #### C T/NGNA #### [facility] [address] [place] [address] Dr. Cyril Hendricks Neisseria gonorrhoeae, ALFREDO Negative Normal Negative [facility] Comment on above: Performed By: #### C T/NGNA #### [facility] [address] [place] [address] Dr. Cyril Hendricks VAGINITIS/VAGINOSIS DNA PROB Maurice 10-04-2021 Krista species Positive Abnormal Negative [facility] Comment on above: Performed By: #### H CVPCRR #### [facility] [address] [place] [address] Dr. Cyril Hendricks Gardnerella vaginalis Negative Normal Negative [facility] Comment on above: Performed By: #### H CVPCRR #### [facility] [address] [place] [address] Dr. Cyril Hendricks Trichomonas vaginalis Negative Normal Negative [facility] Comment on above: Performed By: #### H CVPCRR #### [facility] [address] [place] [address] Dr. Cyril Hendricks HEP B SURFACE ANTIGEN SCREEN on 10-03-2021 HBsAg Screen Negative Normal Negative [facility] Comment on above: Performed By: #### H CVPCRR #### [facility] [address] [place] [address] Dr. Cyril Hendricks HEPATITIS C VIRUS AB W/ REFL EX QUANTon 10-03-2021 HCV AB <0.1 Normal 0.0-0.9 [facility] Comment on above: Performed By: #### H CVPCRR #### [facility] [address] [place] [address] Dr. Cyril Hendricks Interpretation: Comment Normal [facility] Comment on above: Result Comment: Nega tive Not infected with HCV, unless recent infection is suspected or other evidence exists to indicate HCV infection. Performed By: #### H CVPCRR #### [facility] [address] [place] [address] Dr. Cyril Hendricks HIV 1 AND 2 WITH REFLEXon HIV Screen 4th Generation wRfx Non-Reactive Normal Non Reactive [facility] Comment on above: Result Comment: HIV Negative HIV-1/HIV-2 antibodies and HIV-1 p24 antigen were NOT detected. There is no laboratory evidence of HIV infection. Performed By: #### H IV12 #### [facility] [address] [place] [address] Dr. Cyril Hendricks RPR QUANTon 10-03-2021 Rapid Plasma Reagin, Quant Non-Reactive Normal NonRea<1:1 [facility] Comment on above: Result [...] utilized, such as Treponema pallidum (Syphilis) Screening [place] (253727) or Rapid Plasma Reagin (RPR) Test With Reflex to Quantitative RPR and Confirmatory Treponema pallidum Antibodies (725770). Performed By: #### U MICRO, UACSIND #### [facility] [address] [place] [address] Dr. Cyril Hendricks RUBELLA AB IGGon 10-03-2021 Rubella Antibodies, IgG <0.90 Critically low Immune > 0.99 [facility] Comment on above: Result Comment: Non- immune <0.90 Equivocal 0.90 - 0.99 Immune >0.99 Performed By: #### U MICRO, UACSIND #### [facility] [address] [place] [address] Dr. Cyril Hendricks CBC AUTO DIFFon 10-02-2021 BASO # 0.1 103/ul Normal 0.0-0.1 [facility] Comment on above: Performed By: #### U MICRO, UACSIND #### [facility] [address] [place] [address] Dr. Cyril Hendricks Basophils/100 WBC (Bld) 0.4 % Normal 0.2-2.0 [facility] Comment on above: Performed By: #### U MICRO, UACSIND #### [facility] [address] [place] [address] Dr. Cyril Hendricks EO # 0.1 103/ul Normal 0.0-0.7 [facility] Comment on above: Performed By: #### U MICRO, UACSIND #### [facility] [address] [place] [address] Dr. Cyril Hendricks Eosinophils/100 WBC (Bld) 1.1 % Normal 0.9-7.0 [facility] Comment on above: Performed By: #### U MICRO, UACSIND #### [facility] [address] [place] [address] Dr. Cyril Hendricks Erythrocyte distribution width (RBC) [Ratio] 13.5 % Normal 11.0-15.0 [facility] Comment on above: Performed By: #### U MICRO, UACSIND #### [facility] [address] [place] [address] Dr. Cyril Hendricks Hematocrit (Bld) [Volume fraction] 34.5 % Critically low 36.0-48.0 [facility] Comment on above: Performed By: #### U MICRO, UACSIND #### [facility] [address] [place] [address] Dr. Cyril Hendricks Hemoglobin (Bld) [Mass/Vol] 12.0 g/dL Normal 12.0-16.0 [facility] Comment on above: Performed By: #### U MICRO, UACSIND #### [facility] [address] [place] [address] Dr. Cyril Hendricks IG # 0.04 10e3/ul Critically high 0.00-0.03 [facility] Comment on above: Performed By: #### U MICRO, UACSIND #### [facility] [address] [place] [address] Dr. Cyril Hendricks IG % 0.3 % Normal 0.0-0.5 [facility] Comment on above: Performed By: #### U MICRO, UACSIND #### [facility] [address] [place] [address] Dr. Cyril Hendricks LYMPH # 2.6 103/ul Normal 1.2-3.8 [facility] Comment on above: Performed By: #### U MICRO, UACSIND #### [facility] [address] [place] [address] Dr. Cyril Hendricks Lymphocytes/100 WBC (Bld) 21.3 % Normal 20.5-60.0 [facility] Comment on above: Performed By: #### U MICRO, UACSIND #### [facility] [address] [address] [address] Cyril Hendricks MANUAL DIFF REQ NO Normal [facility] Comment on above: Performed By: #### U MICRO, UACSIND #### [facility] [address] [address] [address] Cyril Hendricks MCH (RBC) [Entitic mass] 32.5 pg Normal 26.7-34.0 [facility] Comment on above: Performed By: #### U MICRO, UACSIND #### [facility] [address] [place] [address] Dr. Cyril Hendricks MCHC (RBC) [Mass/Vol] 34.8 g/dL Normal 29.9-35.2 [facility] Comment on above: Performed By: #### U MICRO, UACSIND #### [facility] [address] [place] [address] Dr. Cyril Hendricks MCV (RBC) [Entitic vol] 93.5 fL Normal 81.0-99.0 [facility] Comment on above: Performed By: #### U MICRO, UACSIND #### [facility] [address] [place] [address] Dr. Cyril Hendricks MONO # 0.8 103/ul Normal 0.3-0.8 [facility] Comment on above: Performed By: #### U MICRO, UACSIND #### [facility] [address] [place] [address] Dr. Cyril Hendricks Monocytes/100 WBC (Bld) 6.2 % Normal 1.7-12.0 [facility] Comment on above: Performed By: #### U MICRO, UACSIND #### [facility] [address] [place] [address] Dr. Cyril Hendricks NEUT # 8.6 103/ul Critically high 1.4-6.5 [facility] Comment on above: Performed By: #### U MICRO, UACSIND #### [facility] [address] [place] [address] Dr. Cyril Hendricks Neutrophils/100 WBC (Bld) 70.7 % Normal 43.0-75.0 [facility] Comment on above: Performed By: #### U MICRO, UACSIND #### [facility] [address] [address] [address] Cyril Hendricks Platelet mean volume (Bld) [Entitic vol] 9.1 fL Critically low 9.5-13.5 [facility] Comment on above: Performed By: #### U MICRO, UACSIND #### [facility] [address] [address] [address] Cyril Hendricks PLT 257 103/ul Normal 150-450 [facility] Comment on above: Performed By: #### U MICRO, UACSIND #### [facility] [address] [address] [address] Cyril Hendricks RBC 3.69 106/ul Critically low 4.20-5.40 [facility] Comment on above: Performed By: #### U MICRO, UACSIND #### [facility] [address] [address] [address] Cyril Hendricks WBC 12.2 103/ul Critically high 4.0-11.0 [facility] Comment on above: Performed By: #### U MICRO, UACSIND #### [facility] [address] [place] [address] Dr. Cyril Hendricks CULTURE URINEon 10-02-2021 CULTURE URINE Culture Observations: MODERATE GROWTH OF MIXED GENITAL DRAGAN. NO POTENTIAL PATHOGENS SEEN. Normal [facility] Comment on above: Performed By: #### H CVPCRR #### [facility] [address] [place] [address] Dr. Cyril Hendricks GLYCOHEMOGLOBIN A1Con 2021 ADA RECOMMENDATION SEE BELOW Normal [facility] Comment on above: Result Comment: ADA RECOMMENDED LIMIT 4.0 - 6.0 ADA THERAPEUTIC TARGET < 7.0 ACTION SUGGESTED > 7.0 Performed By: #### H CVPCRR #### [facility] [address] [place] [address] Dr. Cyril Hendricks Glucose [Mass/Vol] 80 mg/dL Normal [facility] Comment on above: Performed By: #### H CVPCRR #### [facility] [address] [place], [place] [address] Dr. Cyril Hendricks HbA1c (Bld) [Mass fraction] 4.4 % Critically low 4.5-6.2 [facility] Comment on above: Performed By: #### H CVPCRR #### [facility] [address] [place], [place] [address] Dr. Cyril Hendricks TYPE AND SCREENon 10-02-2021 TYPE AND SCREEN Negative Normal [facility] Comment on above: Performed By: #### H CVPCRR #### [facility] [address] [place], [place] [address] Dr. Cyril Hendricks US PREG PLACENTAon 2 [...] SOFIA KABA Date: 2021-10-02 10:47 Normal [facility] US PREG ANATOMY SINGLEon US PREG [...] (44% by ultrasound, 29% by expected) FL/AC: 0.721947 FL/BPD: 0.103971 HC/AC: 1.677971 GESTATIONAL AGE: Age by EDC: 21 weeks, 3 days NOY by EDC: 01/12/2022 Age by current US: 21 weeks, 1 day NOY by current US: 01/14/2022 IMPRESSION: 1. Single live intrauterine with growth detailed above. 2. Posterior, low-lying placenta. Electronically authenticated by: MARS FRANKEL Date: 2021-09-04 16:30 Normal [facility] Vital Signs Date Time Vital Sign Value Performing Clinician Facility 02-03-2024 09:23-0400 Body temperature 97.88 [degF] Siva Schulte [facility] 02-03-2024 09:23-0400 Diastolic blood pressure 70 mm[Hg] Siva Schulte [facility] 02-03-2024 09:23-0400 Heart rate 85 /min Siva Schulte [facility] 02-03-2024 09:23-0400 Respiratory rate 18 /min Siva Schulte [facility] 02-03-2024 09:23-0400 SaO2% (BldA) [Mass fraction] 99 % Siva Schulte [facility] 02-03-2024 09:23-0400 Systolic blood pressure 106 mm[Hg] Siva Schulte [facility] 09-23-2023 09:16-0400 Body temperature 98.42 [degF] Wil Chandra [facility] 09-23-2023 09:16-0400 Diastolic blood pressure 68 mm[Hg] Wil Chandra [facility] 09-23-2023 09:16-0400 Heart rate 82 /min Wil Chandra [facility] 09-23-2023 09:16-0400 Respiratory rate 18 /min Wil Chandra [facility] 09-23-2023 09:16-0400 SaO2% (BldA) [Mass fraction] 97 % Wil Chandra [facility] 09-23-2023 09:16-0400 Systolic blood pressure 98 mm[Hg] Wil Chandra [facility] 08-27-2023 12:24-0400 Diastolic blood pressure 61 mm[Hg] [facility] 08-27-2023 12:24-0400 Heart rate 77 /min [facility] 08-27-2023 12:24-0400 Mean blood pressure 72 mm[Hg] [facility] 08-27-2023 12:24-0400 Respiratory rate 16 /min [facility] 08-27-2023 12:24-0400 SaO2% (BldA) [Mass fraction] 97 % [facility] 08-27-2023 12:24-0400 Systolic blood pressure 93 mm[Hg] [facility] 08-27-2023 11:30-0400 Diastolic blood pressure 69 mm[Hg] [facility] 08-27-2023 11:30-0400 Heart rate 74 /min [facility] 08-27-2023 11:30-0400 Mean blood pressure 82 mm[Hg] [facility] 08-27-2023 11:30-0400 Respiratory rate 16 /min [facility] 08-27-2023 11:30-0400 SaO2% (BldA) [Mass fraction] 99 % [facility] 08-27-2023 11:30-0400 Systolic blood pressure 107 mm[Hg] [facility] 08-27-2023 10:30-0400 Diastolic blood pressure 62 mm[Hg] [facility] 08-27-2023 10:30-0400 Heart rate 91 /min [facility] 08-27-2023 10:30-0400 Mean blood pressure 77 mm[Hg] [facility] 08-27-2023 10:30-0400 Respiratory rate 18 /min [facility] 08-27-2023 10:30-0400 SaO2% (BldA) [Mass fraction] 100 % [facility] 08-27-2023 10:30-0400 Systolic blood pressure 107 mm[Hg] [facility] 08-27-2023 09:41-0400 Body temperature 98.6 [degF] [facility] 08-27-2023 09:41-0400 Heart rate 80 /min [facility] 01-04-2023 00:03-0400 Body temperature 98.78 [degF] Siva Schulte [facility] 01-04-2023 00:03-0400 Diastolic blood pressure 54 mm[Hg] Siva Schulte [facility] 01-04-2023 00:03-0400 Heart rate 97 /min Siva Schulte [facility] 01-04-2023 00:03-0400 Mean blood pressure 70 mm[Hg] Siva Schulte [facility] 01-04-2023 00:03-0400 Respiratory rate 18 /min Siva Schulte [facility] 01-04-2023 00:03-0400 SaO2% (BldA) [Mass fraction] 94 % Siva Schulte [facility] 01-04-2023 00:03-0400 Systolic blood pressure 102 mm[Hg] Siva Schulte [facility] 01-03-2023 23:00-0400 Body temperature 100.04 [degF] Siva Eris [facility] 01-03-2023 23:00-0400 Diastolic blood pressure 62 mm[Hg] Siva Eris [facility] 01-03-2023 23:00-0400 Heart rate 100 /min Siva Eris [facility] 01-03-2023 23:00-0400 Mean blood pressure 75 mm[Hg] Siva Eris [facility] 01-03-2023 23:00-0400 Systolic blood pressure 100 mm[Hg] Siva Schulte [facility] 01-03-2023 22:42-0400 Body temperature 100.76 [degF] Siva Schulte [facility] 01-03-2023 22:42-0400 Diastolic blood pressure 59 mm[Hg] Siva Eris [facility] 01-03-2023 22:42-0400 Heart rate 105 /min Siva Schulte [facility] 01-03-2023 22:42-0400 Respiratory rate 20 /min Siva Schulte [facility] 01-03-2023 22:42-0400 SaO2% (BldA) [Mass fraction] 99 % Siva Schulte [facility] 01-03-2023 22:42-0400 Systolic blood pressure 96 mm[Hg] Siva Schulte [facility] 10-02-2022 21:29-0400 Diastolic blood pressure 72 mm[Hg] [facility] 10-02-2022 21:29-0400 Heart rate 94 /min PHYSICIAN NO [facility] 10-02-2022 21:29-0400 Respiratory rate 18 /min PHYSICIAN NO [facility] 10-02-2022 21:29-0400 SaO2% (BldA) [Mass fraction] 98 % PHYSICIAN NO [facility] 10-02-2022 21:29-0400 Systolic blood pressure 141 mm[Hg] PHYSICIAN NO [facility] 10-02-2022 17:03-0400 Body height 170.18 cm PHYSICIAN NO [facility] 10-02-2022 17:03-0400 Body temperature 98.3 [degF] PHYSICIAN NO [facility] 10-02-2022 17:03-0400 Body weight 76.4 kg PHYSICIAN NO [facility] 09-25-2022 13:25-0400 Body height 170.18 cm Viet Yuri Other [facility] Other 09-25-2022 13:25-0400 Body mass index (BMI) [Ratio] 26.62 kg/m2 Viet Welch Other [facility] Other 09-25-2022 13:25-0400 Body temperature 98.2 [degF] Viet Welch Other [facility] Other 09-25-2022 13:25-0400 Body weight 77.11 kg Viet Welch Other [facility] Other 09-25-2022 13:25-0400 Diastolic blood pressure 68 mm[Hg] Viet Welch Other [facility] Other 09-25-2022 13:25-0400 Respiratory rate 18 /min Viet Welch Other [facility] Other 09-25-2022 13:25-0400 SaO2% (BldA) [Mass fraction] 98 % Viet Welch Other [facility] [employer] Other 09-25-2022 13:25-0400 Systolic blood pressure 107 mm[Hg] Viet Welch Other [facility] [employer] Other 09-06-2022 13:54-0400 Diastolic blood pressure 72 mm[Hg] Wil Corazon [facility] 09-06-2022 13:54-0400 Heart rate 60 /min Wil Corazon [facility] 09-06-2022 13:54-0400 Respiratory rate 16 /min Wil Corazon [facility] 09-06-2022 13:54-0400 SaO2% (BldA) [Mass fraction] 100 % Wil Corazon [facility] 09-06-2022 13:54-0400 Systolic blood pressure 103 mm[Hg] Wil Corazon [facility] 09-06-2022 11:41-0400 Diastolic blood pressure 65 mm[Hg] Wil Corazon [facility] 09-06-2022 11:41-0400 Heart rate 58 /min Wil Corazon [facility] 09-06-2022 11:41-0400 Mean blood pressure 77 mm[Hg] Wil Corazon [facility] 09-06-2022 11:41-0400 Respiratory rate 16 /min Wil Corazon [facility] 09-06-2022 11:41-0400 SaO2% (BldA) [Mass fraction] 100 % Wil Corazon [facility] 09-06-2022 11:41-0400 Systolic blood pressure 102 mm[Hg] Wil Corazon [facility] 09-06-2022 10:42-0400 Body temperature 98.24 [degF] Wil Chandra [facility] 09-06-2022 10:42-0400 bodymassindex 1.17 Wil Chandra [facility] Comment on above: Result Comment: ^~:!ZScore [facility] 09-06-2022 10:42-0400 Diastolic blood pressure 71 mm[Hg] Wil Chandra [facility] 09-06-2022 10:42-0400 Heart rate 73 /min Wil Chandra [facility] 09-06-2022 10:42-0400 Height/Length Percentile 84.89 Wil Chandra [facility] Comment on above: Result Comment: ^~:!Percentile [facility] 09-06-2022 10:42-0400 Height/Length Z-Score 1.03 Wil Chandra [facility] Comment on above: Result Comment: ^~:![facility]Score [facility] 09-06-2022 10:42-0400 Respiratory rate 16 /min Wil Chandra [facility] 09-06-2022 10:42-0400 SaO2% (BldA) [Mass fraction] 98 % Wil Chandra [facility] 09-06-2022 10:42-0400 Systolic blood pressure 111 mm[Hg] Wil Chandra [facility] 09-06-2022 10:42-0400 weight 1.47 Wil Jollye [facility] Comment on above: Result Comment: ^~:![facility] [facility] 09-06-2022 10:42-0400 Weight Percentile 92.90 % iWl Chandra [facility] Comment on above: Result Comment: ^~:!Percentile Source -[facility] 08-14-2022 21:30-0500 Diastolic blood pressure 79 mm[Hg] Bob Llanos [facility] 08-14-2022 21:30-0500 Heart rate 87 /min Bob Llanos [facility] 08-14-2022 21:30-0500 Mean blood pressure 93 mm[Hg] Bob Llanos [facility] 08-14-2022 21:30-0500 Nursing Progress Note Reason Other: pt to [place] via stretcher at this time. Bob Llanos [facility] 08-14-2022 21:30-0500 Respiratory rate 16 /min Bob Llanos [facility] 08-14-2022 21:30-0500 SaO2% (BldA) [Mass fraction] 100 % Bob Llanos [facility] 08-14-2022 21:30-0500 Systolic blood pressure 120 mm[Hg] Bob Llanos [facility] 08-14-2022 19:20-0500 Body temperature 98.96 [degF] Bob Llanos [facility] 08-14-2022 19:20-0500 bodymassindex 1.17 Bob Llanos [facility] Comment on above: Result Comment: ^~:!ZScore Source -[facility] 08-14-2022 19:20-0500 Diastolic blood pressure 61 mm[Hg] Bob Llanos [facility] 08-14-2022 19:20-0500 Heart rate 98 /min Bob Llanos [facility] 08-14-2022 19:20-0500 Height/Length Percentile 84.91 Bob Llanos [facility] Comment on above: Result Comment: ^~:!Percentile Source -[facility] 08-14-2022 19:20-0500 Height/Length Z-Score 1.03 Bob Llanos [facility] Comment on above: Result Comment: ^~:![facility]Score [facility] 08-14-2022 19:20-0500 Respiratory rate 16 /min Bob Llanos [facility] 08-14-2022 19:20-0500 SaO2% (BldA) [Mass fraction] 99 % Bob Llanos [facility] 08-14-2022 19:20-0500 Systolic blood pressure 114 mm[Hg] Bob Llanos [facility] 08-14-2022 19:20-0500 weight 1.47 Bob Llanos [facility] Comment on above: Result Comment: ^~:![facility] 08-14-2022 19:20-0500 Weight Percentile 92.94 % Bob Llanos [facility] Comment on above: Result Comment: ^~:!Percentile Source - [facility] 06-24-2022 13:30-0500 Body height 170.18 cm Viet Welch Other [facility] Other 06-24-2022 13:30-0500 Body mass index (BMI) [Ratio] 26.62 kg/m2 Viet Welch Other [facility] Other 06-24-2022 13:30-0500 Body temperature 97.8 [degF] Viet Welch Other [facility] Other 06-24-2022 13:30-0500 Body weight 77.11 kg Viet Welch Other [facility] Other 06-24-2022 13:30-0500 Diastolic blood pressure 63 mm[Hg] Viet Welch Other [facility] Other 06-24-2022 13:30-0500 Respiratory rate 18 /min Viet Welch Other [facility] Other 06-24-2022 13:30-0500 SaO2% (BldA) [Mass fraction] 98 % Viet Welch Other [facility] Other 06-24-2022 13:30-0500 Systolic blood pressure 97 mm[Hg] Viet Welch Other [facility] Other 11-13-2021 14:05-0400 Body height 170.18 cm Michael Oneil Other [facility] Other 11-13-2021 14:05-0400 Body mass index (BMI) [Ratio] 26.62 kg/m2 Michael nOeil Other [facility] Other 11-13-2021 14:05-0400 Body temperature 98.4 [degF] Michael Oneil Other [facility] Other 11-13-2021 14:05-0400 Body weight 77.11 kg Michael Oneil Other [facility] Other 11-13-2021 14:05-0400 Respiratory rate 18 /min Michael Oneil Other [facility] Other 11-13-2021 14:05-0400 SaO2% (BldA) [Mass fraction] 98 % Michael Oneil Other [facility] 11-06-2021 15:45-0400 Body height Kendra Eduar Other [facility] Other 11-06-2021 15:45-0400 Body mass index (BMI) [Ratio] 26.62 kg/m2 Kendra Witt Other [facility] Other 11-06-2021 15:45-0400 Body weight 77.11 kg Kendra Witt Other [facility] Other 11-06-2021 15:45-0400 Respiratory rate 20 /min Kendra Witt Other [facility] Other 11-06-2021 15:45-0400 SaO2% (BldA) [Mass fraction] 98 % Kendra Witt Other [facility] Other Encounters Encounter Date Encounter Type Care Provider Facility Start: 02-16-2024 End: 02-16-2024 ambulatory GONSALO CORRAL Not Available Start: 02-03-2024 End: 02-03-2024 Emergency department patient visit Siva Schulte [facility] Start: 01-26-2024 End: 01-26-2024 ambulatory JUVENAL MIRI Not Available Start: 12-29-2023 End: 12-29-2023 ambulatory GONSALO ELLIS Not Available Start: 12-22-2023 End: 12-22-2023 ambulatory JUVENAL R [facility] Start: 12-01-2023 End: 12-01-2023 ambulatory JUVENAL MIRI Not Available Start: 11-10-2023 End: 11-10-2023 ambulatory JUVENAL R [facility] Start: 10-27-2023 End: 10-27-2023 ambulatory GONSALO ELLIS Not Available Start: 09-29-2023 End: 09-29-2023 ambulatory JUVENAL MIRI Not Available Start: 09-23-2023 End: 09-23-2023 Emergency department patient visit Wil Jollye [facility] Start: 09-04-2023 End: 09-04-2023 ambulatory JUVENAL MIRI Not Available Start: 08-27-2023 End: 08-27-2023 Emergency department patient visit Emily Harper [facility] Start: 08-18-2023 End: 08-18-2023 ambulatory SELAM HUNTER Facility[facility] Start: 01-03-2023 End: 01-04-2023 Emergency department patient visit Siva Schulte [facility] Start: 12-12-2022 End: 12-12-2022 ambulatory Kenneth Lina Other [facility] Other Start: 12-12-2022 Telephone encounter Kenneth Lina [facility] Start: 10-02-2022 End: 10-02-2022 Emergency department patient visit Jose Silverman Facility:[facility] Start: 10-02-2022 End: 10-02-2022 Emergency department patient visit PHYSICIAN SJ LERNER [facility] Work Phone: Start: 09-25-2022 End: 09-25-2022 ambulatory Viet [place] Other [facility] Other Start: 09-25-2022 Office outpatient visit 15 minutes Viet Welch [facility] Start: 09-06-2022 End: 09-06-2022 Emergency department patient visit Wil Jollye [facility] Start: 08-14-2022 End: 08-14-2022 Emergency department patient visit Bob Llanos [facility] Start: 07-11-2022 End: 07-11-2022 ambulatory ROSEANN CORRAL Facility:[facility] Start: 06-24-2022 End: 06-24-2022 ambulatory Viet Welch Other [facility] Start: 06-24-2022 Office outpatient visit 15 minutes Viet Welch [facility] Start: 01-11-2022 End: 01-11-2022 ambulatory NONE LISTED REQUEST Facility:[facility] Start: 01-07-2022 End: 01-09-2022 Evaluation and management of inpatient DR RENATA GEORGES Facility:[facility] Start: 12-29-2021 End: 12-29-[address] JUVENAL THORPE Facility:[facility] Start: 12-19-2021 End: 12-19-[address] JUVENAL THORPE Facility:[facility] Start: 12-12-2021 End: 12-13-2021 ambulatory JUAQUIN SEWELL [facility] Start: 12-12-2021 End: 12-12-2021 Subsequent hospital visit by physician [facility] Start: 11-27-2021 End: 11-27-[address] SOFIA KABA Facility:[facility] Start: 11-13-2021 End: 11-13-2021 ambulatory Michael Oneil Other [facility] Start: 11-13-2021 Office outpatient visit 15 minutes Michael Oneil [facility] Start: 11-06-2021 End: 11-06-2021 ambulatory Kendra Witt Other [facility] Other Start: 11-06-2021 Office outpatient visit 25 minutes Kendra Witt [facility] Start: 10-23-2021 End: 10-24-[address] [...] identified in Urine by Culture Urine Culture [facility] Start: 02-07-2022 Influenza vaccination Flu vaccine (# 1) [facility] Start: 01-09-2022 End: 01-09-2022 Patient encounter procedure 01/09/2022 Routine Perinatology [facility] Start: 01-02-2022 End: 01-02-2022 Patient encounter procedure 01/02/2022 Routine Perinatology [facility] Start: 12-26-2021 End: 12-26-2021 Patient encounter procedure 12/26/2021 Routine Perinatology [facility] Start: 12-20-2021 End: 12-20-2021 Patient encounter procedure 12/20/2021 Routine Perinatology [facility] Start: 2021 DTaP/Tdap/Td vaccine (1 - Tdap) DTaP/Tdap/Td vaccine (1 - Tdap) [facility] Start: 2020 Hepatitis C screening Hepatitis C sc haresh [facility] Start: 2018 Screening for Chlamy nazanin trachomatis Chlamydia screen [facility] Start: 2017 HIV screening HIV screen [facility] Start: 2014 [facility] Start: 2013 HPV vaccine (1 - 2-d ose series) HPV vaccine (1 - 2-dose series) [facility] Start: 09-16-2007 COVID-19 Vaccine (1) COVID-19 Vaccin e (1) [facility] Start: 09-16-2003 Varicella vaccine (1 of 2 - 2-dose childhood series) Varicella vaccine (1 of 2 - 2-dose childhood series) [facility] Depression, [facility] Work Phone: Patient referral [facility] Work Phone: End: 12-12-2021 Sjogrens syndrome-A extractable nuclear antibody [employer] Work Phone: Comment on above: Once for 1 Occurrenc es starting 12/12/2021 until 12/12/2021 End: 12-12-2021 Sjogrens syndrome-B extractable nuclear antibody [facility] Work Phone: Comment on above: Once for 1 Occurrenc es starting 12/12/2021 until 12/12/2021 Immunizations Immunization Date Immunization Notes Care Provider Simona galarza NEGATED: Highlighted row has not occurred!11-05-2019 influenza, injectable, quadrivalent, contains preservative Kendra Witt Other [facility] Other NEGATED: Highlighted row has not occurred!04-10-2019 influenza virus vaccine, unspecified formulation Bob Viet [facility] Payers Date Payer Category Payer Self-pay [id number] 2002 Unknown [id number] 2.16. [id number] 2002 Unknown [id number] 2.16.84 0.1.930987.3.579.2.593 2002 Unknown [id number] 2.16.84 0.1.633563.3.579.2.593 2002 Unknown [id number] 2.16.84 0.1.035571.3.579.2.593 2002 Unknown [id number] 2.16.84 0.1.650971.3.579.2.593 2002 Unknown [id number] 2.16.84 0.1.540074.3.579.2.593 2002 Unknown [id number] 2.16.84 0.1.676731.3.579.2.593 2002 Unknown [id number] 2.16.84 0.1.197216.3.579.2.593 2002 Unknown [id number] 2.16.84 0.1.155322.3.579.2.593 2002 Unknown [id number] 2.16.84 0.1.744080.3.579.2.593 2002 Unknown [id number] 2.16.84 0.1.911087.3.579.2.593 2002 Unknown [id number] 2.16.84 0.1.676078.3.579.2.593 2002 Unknown [id number] 2.16.8 40.1.667451.3.579.2.1286 2002 Unknown [id number] 2.16.8 40.1.683601.3.579.2.1286 2002 Unknown [id number] 2.16.8 40.1.617570.3.579.2.1286 2002 Unknown [id number] 2.16.8 40.1.917432.3.579.2.727 2002 Unknown [id number] 2.16.8 40.1.777216.3.579.2.727 2002 Unknown [id number] 2.16.8 40.1.976653.3.579.2.727 2002 Unknown [id number] 2.16.8 40.1.447182.3.579.2.727 2002 Unknown [id number] 2.16.8 40.1.418214.3.579.2.727 2002 Unknown [id number] 2.16.84 0.1.368041.3.579.2.1259 2002 Unknown [id number] 2.16.84 0.1.480962.3.579.2.9 2002 Unknown [id number] 2.16.84 0.1.255249.3.579.2.9 2002 Unknown [id number] 2.16.84 0.1.263988.3.579.2.9 2002 Unknown [id number] 2.16.84 0.1.219599.3.579.2.9 2002 Unknown [id number] 2.16.84 0.1.904082.3.579.2.9 2002 Unknown [id number] 2.16.84 0.1.912723.3.579.2.9 1959 Unknown [id number] 2.1 6.840.1.689249.19 1959 Unknown [id number] Unknown [id number] 2.16.8 40.1.491374.3.579.2.531 Social History Date Type Detail Facility Sex Assigned At [facility] Start: 11-28-2021 Tobacco smoking stat [facility] Never smoked tobacco [employer] Phone: Start: 11-28-2021 Tobacco use and exposure Smokeless tobacco non-user [employer] Phone: Start: 12-12-2021 Alcohol intake Ex-drinker (finding) [employer] Phone: Start: 12-12-2021 Tobacco Comment no longer vapes [employer] Phone: Start: 04-21-2021 [place] [employer] Work Phone: Start: 2002 Sex Assigned At Not on file [facility] [employer] Phone: Tobacco Current vaping o r e-cigarette use Smokeless Tobacco Use:. Vaping [facility] Tobacco smoking status No Smokin g Status Entered [facility] Start: 10-02-2022 Tobacco smoking stat us NHIS Smoker (finding) [facility] Start: 2002 Sex Assigned At Female F [facility] Functional Status Date Assessment Result Facility 02-03-2024 Functional Status N/A [facility] 09-23-2023 Functional Status N/A [facility] 08-27-2023 Functional Status N/A [facility] 01-03-2023 Functional Status N/A [facility] 09-06-2022 Functional Status N/A [facility] 08-14-2022 Functional Status N/A [facility] Clinical Notes 11-06-2021 to 02-03-2024 Note Date & Type Note Facility 02-03-2024 Evaluation + Plan note Extrac ruby from: Title:ED Note Author:Duc Swanson PA-C te:02/03/24 Sore throat (J02.9: Acute ph aryngitis, unspecified) Viral URI (J06.9: Acute upper respiratory infection, unspecified) Orders: Group A Strep by PCR Rapid Strep w/rfx Diagnostic Tests Pending * Group A Strep by PCR 02/03/24 [facility] 08-27-2024 Hospital Discharge instructions Patient Education [...] medicines to help relieve symptoms, such as: Wctx-aoy-jgyttwo cold medicines. Cough suppressants. Coughing is a [...] and other clear broths. General instructions Take uhkq-ziq-zfmxwoy and prescription medicines only as told by [...] and water are not available, use hand manager desktop. Avoid touching your mouth, face, eyes, or [...] provider. Document Revised: 12/26/2021 Document Reviewed: 12/26/2021 [employer] Patient Education 2022 [employer] Receipts. Follow Up Care 02/03/2024 09:23:13 With:Juvenal THORPE Address: [address] , [place] [address]- Business (1) When:02/06/2024 11:12:27 With:SELAM HUNTER Address: [facility] [place] [address] Business (1) When:02/06/2024 11:12:21 [facility] 08-27-2024 NoteED Patient Education Note Infectious [...] to help relieve symptoms, such as: ? Xmdn-hbs-necclem cold medicines. ? Cough suppressants. Coughing is [...] other clear broths. General instructions ? Take rzux-plj-cpztiho and prescription medicines only as told by [...] soap and water are not available,use hand manager desktop. ? Avoid touching your mouth, face, eyes, [...] Mood. These symptoms m (more content not included)...[facility] 09-23-2023 Hospital Discharge instructions Patient Education [...] provider. Document Revised: 02/19/2021 Document Reviewed: 02/19/2021 [employer] Patient Education 2022 Se[employer] Receipts. Follow Up Care 09/23/2023 09:11:45 With:Juvenal THORPE Address: [address] [place] [address] Business (1) When:09/26/2023 11:44:07 [facility]03-20-2024 Hospital Discharge instructions Patient Education 08/27/2023 [...] provider. Document Revised: 01/09/2022 Document Reviewed: 01/09/2022 [employer] Patient Education 2022 [employer] Receipts. 08/27/2023 12:34:16 Urinary Tract Infection, Adult, Jabx-lo-Oaby Urinary Tract Infection, Adult A urinary tract [...] Follow these instructions at home: Medicines Take etnb-krb-ubeqxot and prescription medicines only as told by [...] provider. Document Revised: 01/05/2021 Document Reviewed: 01/05/2021 [employer] Patient Education 2022 Se[employer] Receipts. 08/27/2023 12:34:16 Subchorionic Hematoma Subchorionic Hematoma A [...] provider. Document Revised: 02/19/2021 Document Reviewed: 02/19/2021 [employer] Patient Education 2022 Se[employer] Receipts. Follow Up Care 08/27/2023 09:39:16 With:Juvenal THORPE Address: [address] , [place] [address] Business (1) When:08/30/2023 12:05:10 With:SELAM HUNTER Address: [facility] [place] [address] Business (1) When:Within 3 Day(s) [facility]03-20-2024 Evaluation + Plan noteExtracted from: Title:ED [...] day(s), # 28 cap(s), Refills(s) 0, Pharmacy: [id number], 170, cm, 08/27/23 9:49:00 EDT, Height/Length Dosing, 78.7, kg, 08/27/23 9:49:00 EDT, Weight Dosing ABO/Rh Basic Metabolic Panel Beta hCG Quantitative CBC w/ Auto Diff eGFR Extra Blue Tube Extra SST Tube UA with Cult Rflx Urine Culture US 1st Trimester US Transvaginal Diagnostic Tests Pending * Urine Culture 08/27/23 [facility]07-29-2023 Hospital Discharge instructions Patient Education 01/04/2023 00:13:01 Pharyngitis, Jkkm-qs-Kkmm Pharyngitis Pharyngitis is a sore throat (pharynx). [...] Follow these instructions at home: Medicines Take rxsg-ozi-kzohyty and prescription medicines only as told by [...] and water are not available, use hand manager desktop. Do not touch your eyes, nose, or [...] provider. Document Revised: 08/22/2021 Document Reviewed: 08/22/2021 [employer] Patient Education 2022 [employer] Follow Up Care 01/03/2023 22:32:55 With:Thonyyrn Carl Address: [address] [place] [address] [place] [address] [facility] (1) When:01/06/2023 Comments:Follow-up with your primary care provider in 3 to 5 days. If symptoms worsen, do not improve, or new symptoms arise please report back to emergency department for further evaluation. [facility]07-28-2023 Evaluation + Plan noteExtracted from: Title:ED [...] q12hr, # 20 cap(s), Refills(s) 0, Pharmacy: [facility], 170, cm, 01/03/23 22:44:00 EDT, Height/Length Dosing, 75.3, kg, 01/03/23 22:44:00 EDT, Weight Dosing ondansetron, 4 mg = 1 tab(s), Oral, q8hr, PRN Nausea/Vomiting, # 12 tab(s), Refills(s) 0, [facility], 170, cm, 01/03/23 22:44:00 EDT, Height/Length Dosing, 75.3, kg, 01/03/23 22:44:00 EDT, Weight Dosing ondansetron, 12 mg = 3 tab(s), Tab-Dis, Oral, Once, Stop date 01/03/23 23:45:00 EDT, STAT, Start date 01/03/23 23:45:00 EDT, 01/03/23 23:45:00 EDT Automated Diff Basic Metabolic Panel Beta hCG Quantitative CBC w/ Auto Diff eGFR Hepatic Function Panel Lipase Level [facility]04-19-2023 Evaluation note* Encounter Date Diagnosis Assessment [...] of symptoms occur by end of treatment. [facility] 03-31-2023 Hospital Discharge instructions Patient Education [...] Follow these instructions at home: Medicines Take udsi-oky-ssvwrym and prescription medicines only as told by [...] important. Where to find more information [employer]: www.[email or web address].org [place] [...] 11/19/2001 Document Revised: 09/17/2019 Document Reviewed: 07/01/2017 [employer] Patient Education 2020 [employer] Follow Up Care 09/06/2022 10:42:16 With:Juvenal THORPE Address: [address] [place] [address]- Business (1) When:09/09/2022 13:46:05 [facility]03-09-2023 Hospital Discharge instructions Patient Education 08/14/2022 22:12:46 Abdominal Pain During , Pafh-cq-Dpgb Abdominal Pain During Belly (abdominal) pain is [...] keep your pee (urine) pale yellow. Take yseu-cpa-tvjfteu and prescription medicines only as told by [...] Document Reviewed: 08/28/2017 Elsevier Patient Education 2020 [employer]. 08/14/2022 22:12:46 Abdominal Pain, Adult, Qfrx-vw-Pjop Abdominal Pain, Adult Many things can cause belly (abdominal) pain. Most times, belly pain is not dangerous. Many cases of belly pain can be watched and treated at home. Sometimes, though, belly pain is serious. Your doctor will try to find the cause of your belly pain. Follow these instructions at home: Medicines Take rhej-nul-zdrbhro and prescription medicines only as told by [...] your belly pain for any changes. Take bxci-tzn-sskaben and prescription medicines only as told by [...] 11/11/2008 Document Revised: 10/04/2019 Document Reviewed: 10/04/2019 [employer] Patient Education 2020 [employer] Follow Up Care 08/14/2022 18:41:38 With:Juvenal THORPE Address: [address] , [place] [address]- Business (1) When:08/17/2022 Comments:Follow-up with Dr. Thorpe for further evaluation of your . With:Juventino Carbajal Address: [address] [place] [phone]- When:08/17/2022 Comments:Follow-up with your primary care provider in 3 to 5 days. If symptoms worsen, do not improve, or new symptoms arise please report back to emergency department for further evaluation. [facility]01-16-2023 Evaluation note* Encounter Date Diagnosis Assessment [...] return precautions. Jun, Cough (ICD-10 - R05.9) [facility] Other 06-07-2022 Evaluation note* Encounter Date Diagnosis [...] Pt understood and agreed to tx plan. [facility] Other [id number] Evaluation note* Encounter Date Diagnosis Assessment Notes [...] condition October, Sore throat (ICD-10 - J02.9) [employer] Other Evaluation + Plan note No data available for this section [facility] information available [facility] Work Phone: Evaluation noteNo InformationNort [employer] Other History general Narrative - Reported* Type Description Date Medical History fx lt elbow at age 7 Surgical History surgical repair of left elbow f racture at age 7 Hospitalization History see surgical hx [facility] Other Progress note No data available for this section [facility] Summary Purpose Family History No Family [...] section and content) DATE CREATED AUTHOR 01/05/2022 [facility] DATE CREATED AUTHOR AUTHOR'S ORGANIZ ATION 07/15/2022 [facility] DATE CREATED AUTHOR AUTHOR'S ORGANIZ ATION 10/10/2022 [facility] DATE CREATED AUTHOR AUTHOR'S ORGANIZ ATION 12/26/2023 [facility] DATE CREATED AUTHOR AUTHOR'S ORGANIZ ATION [facility]/2024 [facility] DATE CREATED AUTHOR AUTHOR'S ORGANIZ ATION 02/06/2024 [facility] DATE CREATED AUTHOR AUTHOR'S ORGANIZ ATION 02/17/2024 [facility] [employer] Care Teams (unrecognized sec tion and content) Personnel Name: SELAM HUNTER CNP Address: Address: [address] [place] [address] Team Status: Active Member Role Status Dates [...] BE BASED ON THE PRIMARY CLINICAL RECORDS. [employer] [facility]. provides no warranty or guarantee of the accuracy or completeness of information in this document.
[2024-02-26 16:08] VITALS: BP 113/60; PULSE 74
== END 2024-02-26 16:55 | disposition home or self-care (01) ==
LOC: FBCO 07:04 → FBC 16:04
PROVIDERS: Visit Provider Obstetrics & Gynecology
DX: O43.893 Other placental disorders, third trimester (principal); Z3A.33 33 weeks gestation of pregnancy
CPT/HCPCS: 59025

== ENCOUNTER 2024-03-01 07:04 | Outpatient (OUT) | payer OTHER, SELFPAY ==
--- NOTE | 2024-03-01 | US_ITS ---
[address] [address] Patient Name: KAILYN ACKERMAN MRN: [id number] date: 2000 Sex: F Assigned Patient Location: US Current Patient Location: Accession/Order Number: [id number] Exam Date: 03/01/2024 12:58 Report Date: 03/01/2024 15:06 At the request of: VAL ANG Procedure: US OB BPP w non-stress EXAMINATION: US OB BPP w non-stress HISTORY: CIRCUMVALLATE PLACENTA COMPARISON: 02/23/2024 TECHNIQUE: Ultrasound biophysical profile was performed in the radiology department. non-reactive stress testing was performed by nursing staff in the birthing center. FINDINGS: BREATHING MOVEMENTS: 2 GROSS BODY MOVEMENTS: 2 TONE: 2 QUALITATIVE AMNIOTIC FLUID VOLUME: 2 PRESENTATION: Cephalic HEART RATE: 143 BPM AMNIOTIC FLUID VOLUME: 11.7 cm GESTATIONAL AGE: 33 weeks 4 days US/US OB BPP w non-stress IMPRESSION: Total biophysical profile score: 8/8 Electronically authenticated by: SOFIA KABA Date: 03/01/2024 15:06
--- NOTE | 2024-03-01 | US_ITS ---
[address] [address] Patient Name: KAILYN ACKERMAN MRN: [id number] date: 2000 Sex: F Assigned Patient Location: [facility] Current Patient Location: Accession/Order Number: [id number] Exam Date: 03/01/2024 12:58 Report Date: 03/01/2024 15:27 At the request of: VAL ANG Procedure: US OB umbilical artery EXAMINATION: US OB umbilical artery HISTORY: CIRCUMVALLATE PLACENTA COMPARISON: No relevant comparison available. TECHNIQUE: Duplex Doppler evaluation of the umbilical arteries. FINDINGS: Cephalic presentation Amniotic fluid: 11.7 cm Heart rate: 143 beats minute The umbilical arteries: 2 Proximal umbilical artery: 82/29 cm/s. Resistive index 0.65. Ratio 2.8 Mid umbilical artery: 71/31 cm/s. Resistive index 0.57. Ratio 2.3 Distal umbilical artery: 57/23 cm/s. Resistive index 0.60. Ratio 2.5 Forward flow identified throughout diastole US/US OB umbilical artery IMPRESSION: Normal exam, class 0 Umbilical Artery: Class 0 = Normal umbilical artery blood velocity Class I = increased RI or PI, but still forward flow in diastole Class II = Absent end diastolic flow (AEDF) Class III = Reversal of end diastolic flow (REDF) Resistive Index (RI)<1 Systolic/Diastolic ratio (S:D): An S:D ratio of 2-3 after 34 wks is normal Systolic/Diastolic ratio (S:D): Age 16: 3.01 for the 10th percentile, 4.25 for the 50th percentile, 6.07 for the 90th percentile Age 20: 3.16 for the 10th percentile, 4.04 for the 50th percentile, 5.24 for the 90th percentile Age 24: 2.70 for the 10th percentile, 3.50 for the 50th percentile, 4.75 for the 90th percentile Age 28: 2.41 for the 10th percentile, 3.02 for the 50th percentile, 3.97 for the 90th percentile Age 30: 2.43 for the 10th percentile, 3.04 for the 50th percentile, 3.80 for the 90th percentile Age 32: 2.27 for the 10th percentile, 2.73 for the 50th percentile, 3.57 for the 90th percentile Age 34: 2.08 for the 10th percentile, 2.52 for the 50th percentile, 3.41 for the 90th percentile Age 36: 1.96 for the 10th percentile, 2.35 for the 50th percentile, 3.15 for the 90th percentile Age 38: 1.89 for the 10th percentile, 2.24 for the 50th percentile, 3.10 for the 90th percentile Age 40: 1.88 for the 10th percentile, 2.22 for the 50th percentile, 2.68 for the 90th percentile Age 41: 1.93 for the 10th percentile, 2.21 for the 50th percentile, 2.55 for the 90th percentile Age 42: 1.91 for the 10th percentile, 2.51 for the 50th percentile, 3.21 for the 90th percentile Uteroplacental Artery: Resistive Index (RI): Normal=<0.55 High Resistance=Bilateral notches (after 26 wks) and RI>0.55. Unilateral notches (after 26 wks) and RI>0.65 Systolic/Diastolic ratio (S:D) = 2-3 is normal after 32 weeks. Electronically authenticated by: SOFIA KABA Date: 03/01/2024 15:27
--- OUTSIDE RECORDS SUMMARY | 2024-03-01 07:08 | XMS_ITS | CCD ---
Author Organization [facility] Inform ion [facility] Care Team Providers Care Cash Management Officer Name Role Phone Kendra Witt Unavailable Michael [...] Unavailable ZIEBER, DR MARS Mccarthy [employer] Unavailable ECHO, DR SOFIA Hull Consult[employer] Unavailable REQUEST, NONE [...] Medication Allergies] Propensity to adverse reactions (disorder) [facility] Repository Medications Current Medications Medication [...] day(s), # 28 cap(s), Refills(s) 0, Pharmacy: [facility], 170, cm, 08/27/23 9:49:00 EDT, Height/Length Dosing, 78.7, kg, 08/27/23 9:49:00 EDT, Weight Dosing Start Date: 08/27/23 Stop Date: 09/03/23 Status: Ordered Start: 01-03-2023 take 1 capsule by [facility] every twelve hours Keflex 500 mg Cap 500 mg = 1 cap(s), Oral, q12hr, # 20 cap(s), Refills(s) 0, Pharmacy: [facility], 170, cm, 01/03/23 22:44:00 EDT, Height/Length Dosing, 75.3, kg, 01/03/23 22:44:00 EDT, Weight Dosing Start Date: 01/03/23 Status: Ordered Citalopram (2 sources) Serotonin Reuptake Inhibitor Citalopram Hydrobromide Active dexamethasone 1 mg/ml / neomycin 3.5 mg/ml / polymyxin b 72619 unt/ml ophthalmic suspension (2 sources) Aminoglycoside Antibacterial, Polymyxin-class Antibacterial, Corticosteroid Start: 09-26-19 take 1 drop(s) into the eye(s) four times daily Maxitrol 3.5-95517-6.1 1 drop into affected eye Ophthalmic Four [...] 3 hrs for 2 days Jun, Active [place] (No Known Home Meds) (1 source) Start: 06-26-2021 [place] (No Known Home Meds) Active June 26, [...] Nausea/Vomiting, # 12 tab(s), Refills(s) 0, Pharmacy: [facility], 170, cm, 01/03/23 22:44:00 EDT, Height/Length Dosing, 75.3, kg, 01/03/23 22:44:00 EDT, Weight Dosing Start Date: 01/03/23 Status: Ordered Start: 06-09-2019 take 1 tablet by faby th three times daily Zofran ODT 4 mg Tab-Dis 4 mg = 1 tab(s), Oral, TID, # 15 tab(s), Refills(s) 0, Pharmacy: [facility] Start Date: 06/09/19 Status: [...] take 450 mg by mouth twice daily [place] Carbonate Discontinued 450 MG PO Twice daily [...] Grp A Strp Intrl Ctrl Pass Normal [facility] Comment on above: Order Comment: Order Added on by Discern Rule. Performed By: #### 1 [id number] #### [facility] [address] [place] [address] S. pyogenes DNA ALFREDO+probe Ql (Throat) Negative Normal [facility] Comment on above: Order Comment: Order Added on by Discern Rule. Result Comment: Test ing performed using DNA amplification. Performed By: #### 1 [id number] #### [facility] [address] [place] [address] ED Clinical Summaryon 2023 ED Clinical Summary ED Clinical Summary [address] [address] ED Clinical Summary Person Information Name: KAILYN ACKERMAN Heena/[facility] Age: 23 Years : 2000 Sex: Female Language: Guinean PCP: SELAM HUNTER CNP Marital Status: Single Phone: [phone] MRN: Visit Id: Visit Reason: Headache; Body [...] 02/03/2024 11:17:23 02/03/2024 11:17:23 02/03/2024 11:17:23 ADDRESS: [address] [place] [phone] PHYS DOC NOTES: MEDICAL INFORMATION: Prescriptions Given: [...] Follow up: With: Address: When: Juvenal THORPE [facility], [address] [place] [address] [place] [address] Business (1) In 3 days 02/06/2024 With: Address: When: [place] [address] Business (1) In 3 days 02/06/2024 DIAGNOSIS: Sore throat; Viral URI Normal [facility] ED Note-Physicianon 08-27-20 24 ED [...] URI and will continue to follow-up with BI TECHNICAL LEAD for further evaluation and management. We [...] days 02/06/2024 (more content not included)... Normal [facility] Comment on above: Result Comment: Elec tronically Signed By: Duc Swanson PA-C\.br\Date and Time Signed: 02/03/24 13:23 EDT\.br\Electronically Co-Signed By: Siva Schulte DO\.br\Date and Time Co-Signed: 02/03/24 14:44 EDT ED Patient Summaryon 024 ED Patient Summary ED Patient Summary [address] [address] Patient Discharge Instructions Person Information Name: KAILYN ACKERMAN Age: 23 Years Arrival Date: 02/03/2024 09:21:41 Discharge Diagnosis: Sore throat; Viral URI Primary Care Physician: SELAM HUNTER CNP Provider Information Primary Provider: Siva Schulte DO Advanced Fabrication Specialist:Duc Swanson PA-C The exam and treatment you received in the Emergency Department were for an urgent problem and are not intended as complete care. It is important that you follow up with a doctor, nurse practitioner, or physician?s audiology assistant for ongoing care. If your symptoms [...] Follow-up Instructions: With: Address: When: Juvenal THORPE [facility], [address] [place] [address] [place] [address] Business (1) In 3 days 02/06/2024 With: Address: When: SELAM HUNTER [address] [place], [place] [address] [address] Business (1) In 3 days 02/06/2024 In the event that this physician does not participate in your insurance network, please consult with your insurance company to find a nearby participating provider. Patient Education Materials: Upper Respiratory Infection, Adult A MESSAGE TO ALL PATIENTS REGARDING OPIOIDS PRESCRIPTION OPIOIDS: WHAT YOU NEED TO KNOW Prescription opioids can be used to help relieve zcshdhdb-di-yutivw pain and are often prescribed following a [...] of op (more content not included)... Normal [facility] MICRO OTHER TESTSOrdered By: Nita Delgadillo on 02-03-2024 S. pyogenes Ag IA.rapid Ql (Throat) Negative (02/03/24 11:07 AM) Normal Negative [facility] Sero MICRO OTHER TESTSOrdered By: Asuncion Goncalves on 02-03-2024 Rapid COV Int NEG Ctl Pass (02/03/24 9:30 AM) Normal [facility] Man Sero Rapid COV Int POS Ctl Pass (02/03/24 9:30 AM) Normal [facility] Sero SARS-CoV+SARS-CoV-2 (COVID-19) Ag IA.rapid Ql (Resp) Not Detected 1 (02/03/24 9:30 AM) Normal Not Detected [facility] Man Sero Comment on above: Interpretive Data: Gato multani Vibease Veritor System for Rapid Detection of SARS-CoV-2 [...] COV Int NEG Ctl Pass Normal [facility] Comment on above: Performed By: #### 2 [id number] #### [facility] [address] [place] [address] Rapid COV Int POS Ctl Pass Normal [facility] Comment on above: Performed By: #### 2 [id number] #### [facility] [address] [place] [address] SARS-CoV+SARS-CoV-2 (COVID-19) Ag IA.rapid Ql (Resp) Not detected Normal Not Detected [facility] Comment on above: Result Comment: The Vibease Veritor? System for Rapid Detection of SARS-CoV-2 [...] other viruses or pathogens; and, in the [facility], this test is only authorized for the duration of the declaration that circumstances exist justifying the authorization of emergency use of in vitro diagnostics for detection and/or diagnosis of the virus that causes COVID-19 under Section 564(b)(1) of the Act, 21 U.S.C. ? 360bbb-3(b)(1), unless the authorization is terminated or revoked sooner. Performed By: #### 2 [id number] #### [facility] [address] [place] [address] Rapid Strep w/rfxon 02-03-20 24 S. pyogenes Ag IA.rapid Ql (Throat) Negative Normal Negative [facility] Comment on above: Performed By: #### 2 [id number] #### [facility] [address] [place] [address] ED Note-Physicianon 09-26-19 24 ED Note-Physician Basic [...] than 90,000. Ultrasound was obtained discussed with corrections identification technician. Intrauterine consistent with stated gestational age. Stable heart rate. Patient continues to demonstrate subchorionic hematoma. Also left-sided ovarian cyst similar to previous. Results were discussed with the patient. She is discharged home to continue pelvic rest and follow-up with BI TECHNICAL LEAD. Patient was encouraged to return to [...] Juvenal THORPE In 3 days 09/26/[address] , [place] [address] Business (1) Additional Instructions: Patient Education Subchorionic [...] made to ensure accuracy, however, inadvertently computerized agricultural equipment operator mistakes may be present. Appropriate healthcare PPE [...] Yes., 04/10/2019 Lab Results Beta hCG Qnt: 23819 mIU/mL High (09/23/23 09:28:00) Diagnostic Results No qualifying data available. Normal [facility] Comment on above: Result Comment: Elec tronically Signed By: Mandie CHUNG, Venkat\.br\Date and Time Signed: 09/23/23 11:45 EDT\.br\Electronically Co-Signed By: Wil Chandra DO\.br\Date and Time Co-Signed: 09/26/23 07:37 EDT [facility] Quanton 09-23-2023 [place] [address] m[IU]/mL High 1-3 F [facility] Comment on above: Result Comment: 'F N ON < 1 - 3' ' 0.2 - 1 WEEK = 5 TO 50' ' 1 - 2 WEEKS = 50 - 500' ' 2 - 3 WEEKS = 100 - 5000' ' 3 - 4 WEEKS = 500 - 50230' ' 4 - 5 WEEKS = 1000 - 75304' ' 5 - 6 WEEKS = 96433 - 037307' ' 6 - 8 WEEKS = 64557 - 124358' ' 8 - 12 WEEKS = 91280 - 728928' Performed By: #### 2 [id number] ####[place] [address] [place] [address] CHEMISTRYOrdered By: SYSTEM SYSTEM on 09-23-2023 [place] [address] m[IU]/mL High 1 - 3 mIU/mL [facility] Comment on above: Result Comment: 'F N ON < 1 - 3' ' 0.2 - 1 WEEK = 5 TO 50' ' 1 - 2 WEEKS = 50 - 500' ' 2 - 3 WEEKS = 100 - 5000' ' 3 - 4 WEEKS = 500 - 46328' ' 4 - 5 WEEKS = 1000 - 76436' ' 5 - 6 WEEKS = 69162 - 557412' ' 6 - 8 WEEKS = 63885 - 135842' ' 8 - 12 WEEKS = 64371 - 919617' Consent for Treatmenton 09-07 Consent for Treatment [id number]#1.00TIFF Normal [facility] Discharge Instructionson Discharge Instructions [id number]#1.00TIFF Normal [facility] ED Clinical Summaryon 2023 ED Clinical Summary [address] [address] ED Clinical Summary Person Information Name: KAILYN ACKERMAN Heena/[facility] Age: 23 Years : 2000 Sex: Female Language: Guinean PCP: NONE, XXXX Marital Status: Single Phone: [phone] MRN: [id number] Visit Id: Visit Reason: Back [...] 09/23/2023 11:52:16 09/23/2023 11:52:16 09/23/2023 11:52:16 ADDRESS: [address] [place] [phone] PHYS DOC NOTES: MEDICAL INFORMATION: Prescriptions Given: [...] Follow up: With: Address: When: Juvenal THORPE [facility], [address] [place] [address] [place] [address] Business (1) In 3 days 09/26/2023 DIAGNOSIS: Other antepartum hemorrhage, unspecified trimester; Subchorionic bleed; Vaginal bleeding in Normal [facility] ED Patient Education Noteon 09-23-2023 [...] provider. Document Revised: 02/19/2021 Document Reviewed: 02/19/2021 [employer] Patient Education ? [address] [facility] ED Patient Summaryon 024 ED Patient Summary [address] [address] Patient Discharge Instructions Person Information Name: GARCÍA ACKERMANNZIE Evan Age: 23 Years Arrival Date: 09/23/2023 09:10:07 Discharge Diagnosis: Other antepartum hemorrhage, unspecified trimester; Subchorionic bleed; Vaginal bleeding in Primary Care Physician: NONE, XXXX Provider Information Primary Provider: Wil Chandra DO Advanced Fabrication Specialist:Venkat Leal PA-C The exam and treatment you received in the Emergency Department were for an urgent problem and are not intended as complete care. It is important that you follow up with a doctor, nurse practitioner, or physician?s audiology assistant for ongoing care. If your symptoms [...] Follow-up Instructions: With: Address: When: Juvenal THORPE [facility], [address] [place] [address] , [place] [address] Business (1) In 3 days 09/26/2023 In the event that this physician does not participate in your insurance network, please consult with your insurance company to find a nearby participating provider. Patient Education Materials: Subchorionic Hematoma A MESSAGE TO ALL PATIENTS REGARDING OPIOIDS PRESCRIPTION OPIOIDS: WHAT YOU NEED TO KNOW Prescription opioids can be used to help relieve bmvilvku-mm-oqqfwq pain and are often prescribed following a [...] health care p (more content not included)... [facility] Prescriptions/Work Noteson 0 09-23-2023 Prescriptions/Work Notes [id number]#1.00TIFF [facility] [place] 1st Trimesteron 09-23-2023 1st Trimester Exam [...] least 66% of the gestational sac circumference. [place] Rump Length: 3.2 cm, which corresponds Composite [...] FINAL REPORT Dictated: 09/23/2023 11:55 am Alejandro rCuz MD Signed (Electronic Signature): 09/23/2023 11:55 am Signed by: Alejandro Cruz MD Transcribed by: KIRK Technologist: CAMILLE Technical Comments LMP : 07/10/23 Technical Comments History 4 Para 1 SAB 2 Transabdominal Ultrasound Performed FHR (bpm) 173 Size = Dates Uterus Position Anteverted Normal [facility] C Urineon 08-29-2023 Bacteria identified [...] Locations R1: This test was performed at: [facility], [address] [place] [address], [address] , , Normal [facility] Comment on above: Performed By: #### 4 [id number] ####[facility] [address] [place] [address] ABO/Rhon 08-27-2023 ABO/Rh Positive Invalid Interpretation Code [facility] Comment on above: Performed By: #### 2 [id number] ####[facility] [address] [place] [address] BLOOD BANKOrdered By: Liza Xavier on 08-27-2023 ABO/Rh Interp Positive Invalid Interpretation Code [facility] BB Subsection BMPon 08-27-2023 Anion gap [Moles/Vol] 11 mmol/L Normal 6-16 [facility] Comment on above: Performed By: #### 1 [id number], [id number], [id number] ####[facility] [address] [place] [address] Calcium [Mass/Vol] 9.3 mg/dL Normal 8.9-11.1 [facility] Comment on above: Performed By: #### 1 [id number], 5061525, 3085008 ####[facility] [address] [place] [address] Chloride [Moles/Vol] 104 mmol/L Normal 101-111 [facility] Comment on above: Performed By: #### 1 [id number], 2457385, 0195879 ####[facility] [address] [place] [address] CO2 [Moles/Vol] 24 mmol/L Normal 21-31 [facility] Comment on above: Performed By: #### 1 4174486, 7510994, 0889603 ####[facility] [address] [place] [address] Creatinine [Mass/Vol] 0.6 mg/dL Normal 0.5-1.3 [facility] Comment on above: Performed By: #### 1 [id number], 7641899, 4833479 ####[facility] [address] [place] [address] Glucose [Mass/Vol] 87 mg/dL Normal 55-199 [facility] Comment on above: Performed By: #### 1 2677203, 3523335, 0297319 ####[facility] [address] [place] [address] Potassium [Moles/Vol] 3.7 mmol/L Normal 3.5-5.3 [facility] Comment on above: Performed By: #### 1 [id number], 1873173, 9654382 ####[facility] [address] [place] [address] Sodium [Moles/Vol] 135 mmol/L Normal 135-145 [facility] Comment on above: Performed By: #### 1 2934454, 3543492, 2054542 ####[facility] [address] [place] [address] Urea nitrogen [Mass/Vol] 8 mg/dL Normal 5-21 [facility] Comment on above: Performed By: #### 1 7779944, 1954559, 8977598 ####[facility] [address] [place] [address] Urea nitrogen/Creatinine [Mass ratio] 13 No Units Normal 10-20 [facility] Comment on above: Performed By: #### 1 [id number], 5877992, 9168177 ####[facility] [address] [place] [address] BhCG Quanton 08-27-2023 [place] [address] m[IU]/mL High 1-3 F [facility] Comment on above: Result Comment: 'F N ON < 1 - 3' ' 0.2 - 1 WEEK = 5 TO 50' ' 1 - 2 WEEKS = 50 - 500' ' 2 - 3 WEEKS = 100 - 5000' ' 3 - 4 WEEKS = 500 - 12640' ' 4 - 5 WEEKS = 1000 - 73516' ' 5 - 6 WEEKS = 84383 - 113468' ' 6 - 8 WEEKS = 85860 - 633539' ' 8 - 12 WEEKS = 14645 - 299815' Performed By: #### 2 [id number] ####[facility] [address] [place] [address] CBC w/ Auto Diffon 4 Basophils/100 WBC (Bld) 0.6 % Normal 0.0-2.0 F [facility] Comment on above: Performed By: #### 1 5612751, 0214257, 3971182 ####[facility] [address] [place] [address] Basophils/Leukocytes Auto (Bld) [Pure # fraction] 0.0 E9/L Normal 0.0-0.2 [facility] Comment on above: Performed By: #### 1 [id number], 4021366, 0816883 ####[address] [address] Eosinophils (Bld) [#/Vol] 0.1 E9/L Normal 0.0-0.5 [facility] Comment on above: Performed By: #### 1 0081765, 6073306, 6863449 ####[address] [address] Eosinophils/100 WBC (Bld) 2.0 % Normal 0.0-8.0 [facility] Comment on above: Performed By: #### 1 4548252, 2052555, 9777747 ####[address] [address] Erythrocyte distribution width (RBC) [Ratio] 15.0 % High 10.9-14.2 [facility] Comment on above: Performed By: #### 1 2477680, 4408710, 9393259 ####[address] [address] Hematocrit (Bld) [Volume fraction] 37.4 % Normal 34.0-46.0 [facility] Comment on above: Performed By: #### 1 6063454, 8790356, 4018007 ####[address] [address] Hemoglobin (Bld) [Mass/Vol] 12.7 g/dL Normal 12.0-16.0 [facility] Comment on above: Performed By: #### 1 2863418, 2126986, 6461091 ####[address] [address] Lymphocytes (Bld) [#/Vol] 2.0 E9/L Normal 1.0-4.0 [facility] Comment on above: Performed By: #### 1 3813044, 4592720, 4984072 ####[address] [address] Lymphocytes/100 WBC (Bld) 28.1 % Normal 14.0-50.0 [facility] Comment on above: Performed By: #### 1 4775051, 6638935, 6410658 ####[address] [address] MCH (RBC) [Entitic mass] 28.4 pg Normal 27.0-34.0 [facility] Comment on above: Performed By: #### 1 5536868, 4949727, 1397951 ####[place] [address] MCHC (RBC) [Mass/Vol] 33.8 g/dL Normal 31.4-36.0 [facility] Comment on above: Performed By: #### 1 0896543, 4127105, 1682432 ####[place] [address] MCV (RBC) [Entitic vol] 84.0 fL Normal 80.0-100.0 F [facility] Comment on above: Performed By: #### 1 9804748, 6293874, 8325545 ####[place] [id number] Monocytes (Bld) [#/Vol] 0.5 E9/L Normal 0.2-1.0 F [facility] Comment on above: Performed By: #### 1 1380092, 3281758, 2535323 ####[address] [address] Neutrophils (Bld) [#/Vol] 4.5 E9/L Normal 2.0-7.5 [facility] Comment on above: Performed By: #### 1 7552634, 6923174, 3276286 ####[address] [address] Neutrophils/100 WBC (Bld) 61.9 % Normal 36.0-75.0 [facility] Comment on above: Performed By: #### 1 0555412, 2649236, 1063659 ####[address] [place] [address] Platelet mean volume (Bld) [Entitic vol] 7.9 fL Normal 6.4-10.8 [facility] Comment on above: Performed By: #### 1 1718156, 9080541, 8671096 ####[facility] [address] [place] [address] Platelets (Bld) [#/Vol] 252.0 E9/L Normal 150.0-500.0 [facility] Comment on above: Performed By: #### 1 8869480, 4368432, 5898822 ####[address] [address] RBC (Bld) [#/Vol] 4.5 E12/L Normal 4.3-5.9 [facility] Comment on above: Performed By: #### 1 0110428, 0456849, 2586108 ####[facility] [address] [place] [address] WBC corrected for nucl RBC Auto (Bld) [#/Vol] 7.2 E9/L Normal 4.0-11.0 [facility] Comment on above: Performed By: #### 1 8817026, 4129832, 2504831 ####[facility] [address] [place] [address] CHEMISTRYOrdered By: SYSTEM SYSTEM on 08-27-2023 Anion [...] 199 mg/[place] [address] m[IU]/mL High 1 - 3 mIU/mL [facility] Comment on above: Result Comment: 'F N ON < 1 - 3' ' 0.2 - 1 WEEK = 5 TO 50' ' 1 - 2 WEEKS = 50 - 500' ' 2 - 3 WEEKS = 100 - 5000' ' 3 - 4 WEEKS = 500 - 97479' ' 4 - 5 WEEKS = 1000 - 91142' ' 5 - 6 WEEKS = 197[address] - 221841' ' 6 - 8 WEEKS = 56594 - 118656' ' 8 - 12 WEEKS = 156[address] - 096163' Potassium [Moles/Vol] 3.7 mmol/L Normal 3.5 - 5.3 mmol/L [facility] Sodium [Moles/Vol] 135 mmol/L Normal 135 - 145 mmol/L [facility] Urea nitrogen [Mass/Vol] 8 mg/dL Normal 5 - 21 mg/d L [facility] Urea nitrogen/Creatinine [Mass ratio] 13 mg/mg Normal 10 - 20 [facility] Consent for Treatmenton 08-08 Consent for Treatment [id number]#1.00TIFF Normal [facility] Discharge Instructionson Discharge Instructions [id number]#1.00TIFF Normal [facility] ED Clinical Summaryon 2023 ED Clinical Summary [place] [id number] ED Clinical Summary Person Information Name: KAILYN ACKERMAN Heena/[facility] Age: 22 Years : 2000 Sex: Female Language: Guinean PCP: SELAM HUNTRE CNP Marital Status: Single Phone: [phone] MRN: Visit Id: Visit Reason: Vaginal bleeding [...] 08/27/2023 12:34:16 08/27/2023 12:34:16 08/27/2023 12:34:16 ADDRESS: [address] [place] [phone] PHYS DOC NOTES: MEDICAL INFORMATION: Prescriptions Given: Medications to Continue Taking That Have Changed [facility], [address] [place], [place] [id number], [phone] START: cephalexin (Keflex 500 mg Cap) 1 [...] Urinary Tract Infection; Urinary Tract Infection, Adult, Ebjq-wv-Qtov; Subchorionic Hematoma Follow up: With: Address: When: Juvenal THORPE [facility], [address] [place] [address] [place], [place] [id number] Business (1) In 3 days 08/30/2023 With: Address: When: [place] [address] Business (1) In 3 days DIAGNOSIS: Other antepartum hemorrhage, unspecified trimester; Subchorionic bleed; UTI (urinary tract infection) during ; Vaginal bleeding in Normal [facility] ED Note-Physicianon 08-27-19 ED Note-Physician [...] day(s), # 28 cap(s), Refills(s) 0, Pharmacy: [facility], 170, cm, 08/27/23 9:49:00 EDT, Height/Length [...] Juvenal THORPE In 3 days 08/30/[address] [place] [address]- Business (1) Additional Instructions: SELAM HUNTER In 3 days [facility] [place] [address]- Business (1) Additional Instructions: Patient Education and Urinary Tract Infection Urinary Tract Infection, Adult, Tzmd-wv-Txmt Subchorionic Hematoma Attestation Patient seen and evaluated by the physician audiology assistant. Attending physician was present in the emergency department and s (more content not included)... Normal [facility] Comment on above: Result Comment: [...] provider. Document Revised: 01/09/2022 Document Reviewed: 01/09/2022 [employer] Patient Education ? 2022 [employer] Urinary Tract Infection, Adult A urinary [...] (inflammation) (more content not included)... Normal [facility] ED Patient Summaryon 024 ED Patient Summary [place] [id number] Patient Discharge Instructions Person Information Name: KAILYN ACKERMAN Age: 22 Years Arrival Date: 08/27/2023 09:37:12 Discharge Diagnosis: Other antepartum hemorrhage, unspecified trimester; Subchorionic bleed; UTI (urinary tract infection) during ; Vaginal bleeding in Primary Care Physician: SELAM HUNTER CNP Provider Information Primary Provider: Emily Harper M.D. Advanced Fabrication Specialist:None The exam and treatment you received in the Emergency Department were for an urgent problem and are not intended as complete care. It is important that you follow up with a doctor, nurse practitioner, or physician?s audiology assistant for ongoing care. If your symptoms become worse or you do not improve as expected and you are unable to reach your usual health care provider, you should return to the Emergency Department. We are available 24 hours a day. KAILYN ACKERMAN has been given the following list of patient education materials, prescriptions and follow-up instructions: Follow-up Instructions: With: Address: [facility] [address] [place] [address] Dr. [facility] [place] [phone] Business (1) In 3 days 08/30/2023 With: Address: When: SELAM HUNTER [address] [place] [address] [place] [phone] Business (1) In 3 days In the event that this physician does not participate in your insurance network, please consult with your insurance company to find a nearby participating provider. Patient Education Materials: and Urinary Tract Infection; Urinary Tract Infection, Adult, Nlug-qu-Nmwu; Subchorionic Hematoma A MESSAGE TO ALL PATIENTS REGARDING OPIOIDS PRESCRIPTION OPIOIDS: WHAT YOU NEED TO KNOW Prescription opioids can be used to help relieve oxlsskfv-yn-shwwqg pain and are often prescribed following a [...] toilet, follo (more content not included)... Normal [facility] HEMATOLOGYOrdered By: SYSTEM SYSTEM on [...] 08-27-19 24 Color (U) Light-Yellow Normal Yellow [facility] Comment on above: Result Comment: Micr oscopic readings are only performed on those samples that meet specific criteria set forth by [facility]. Performed By: #### 4 [id number], [id number] ####[address] [address] Glucose (U) [Mass/Vol] Negative Normal Negative Fi [facility] Comment on above: Performed By: #### 4 [id number], [id number] ####[facility] [address] [place] [address] Ketones Ql (U) Negative Normal Negative [facility] Comment on above: Performed By: #### 4 [id number], [id number] ####[facility] [address] [place] [address] UA Blood 3+ Abnormal Negative [facility] Comment on above: Performed By: #### 4 [id number], [id number] ####[facility] [address] [place] [address] UA Bacteria 1+ [id number] Abnormal Trace [facility] Comment on above: Performed By: #### 4 [id number], [id number] ####[address] [address] UA Clarity Turbid Abnormal Clear [facility] Comment on above: Performed By: #### 4 [id number], [id number] ####[facility] [address] [place] [address] UA Hyal Cast 0-3 Normal 0-3 [facility] Comment on above: Performed By: #### 4 [id number], [id number] ####[facility] [address] [place] [address] UA Leuk Est 250 Stefania/uL Abnormal Negative [facility] Comment on above: Performed By: #### 4 [id number], [id number] ####[facility] [address] [place] [address] UA Mucous Trace Normal Negative [facility] Comment on above: Performed By: #### 4 [id number], [id number] ####[facility] [address] [place] [address] UA Nitrite Negative Normal Negative [facility] Comment on above: Performed By: #### 4 [id number], [id number] ####[facility] [address] [place] [address] UA pH 5.5 Invalid Interpretation Code 5.0-9.0 [facility] Comment on above: Performed By: #### 4 [id number], [id number] ####[facility] [address] [place] [address] UA Protein 1+ mg/dL Abnormal Negative [facility] Comment on above: Performed By: #### 4 [id number], [id number] ####[facility] [address] [place] [address] UA RBC 4-20 Abnormal 0-3 [facility] Comment on above: Performed By: #### 4 [id number], [id number] ####[facility] [address] [place] [address] UA Spec Grav 1.018 Invalid Interpretation Code 1.005-1.030 [facility] Comment on above: Performed By: #### 4 [id number], [id number] ####[facility] [address] [place] [address] UA Squam Epithelial 3-4 Abnormal 0-2 Fishe r [facility] Comment on above: Performed By: #### 4 [id number], [id number] ####[facility] [address] [place] [address] UA Urobilinogen Negative Normal Negative [facility] Comment on above: Performed By: #### 4 [id number], [id number] ####[facility] [address] [place] [address] UA WBC 6-15 Abnormal 0-5 [facility] Comment on above: Performed By: #### 4 [id number], [id number] ####[facility] [address] [place] [address] Urobilinogen (U) [Mass/Vol] Negative Normal Negative [facility] Comment on above: Performed By: #### 4 [id number], [id number] ####[facility] [address] [place] [address] UA Spec Desc Clean Catch Normal [facility] Comment on above: Performed By: #### 4 [id number], [id number] ####[facility] [address] [place] [address] URINALYSISOrdered By: SYSTEM SYSTEM on 08-27-2023 Color (U) Light-Yellow 1 (08/27/23 9:55 AM) Normal Yellow [facility] UA Auto SS Comment on above: Interpretive Data: M icroscopic readings are only performed on those samples that meet specific criteria set forth by [facility]. Glucose (U) [Mass/Vol] Negative [...] Reason for Exam: Other (please specify) Report [facility] [phone] IMPRESSION: Single live intrauterine with estimated sonographic [...] heart rate is measured at 120 bpm. [place]-rump length 4.77 mm. Estimated sonographic gestational age [...] Transvaginal Ultrasound Performed FHR (bpm) [address] [facility] US Transvaginalon 08-27-2023 US Transvaginal Exam Date/Time: 08/27/2023 11:55 EDT Reason for Exam: Other (please specify) Report [facility] [phone] Please see ultrasound pelvis, for report of transvaginal examination. Ordering Provider: Hudson Riley FINAL REPORT Dictated: 08/27/2023 12:33 pm Zach Deng MD Signed (Electronic Signature): 08/27/2023 12:33 pm Signed by: Zach Deng MD Transcribed by: KIRK Technologist: SHELLEY Normal [facility] eGFRon 08-27-2023 eGFR 131 mL/min/1.73 m2 Normal >=59 [facility] Comment on above: Order Comment: Order added by Discern Expert. Performed By: #### 1 [id number], [id number], [id number] ####[facility] [address] [place] [address] [facility] Quanton 08-19-2023 HCG.beta subunit Qn 4261 m[IU]/mL High 1-3 Fi [facility] Comment on above: Result Comment: 'F N ON < 1 - 3' ' 0.2 - 1 WEEK = 5 TO 50' ' 1 - 2 WEEKS = 50 - 500' ' 2 - 3 WEEKS = 100 - 5000' ' 3 - 4 WEEKS = 500 - 81876' ' 4 - 5 WEEKS = 1000 - 758[address]' ' 5 - 6 WEEKS = [address] - 195690' ' 6 - 8 WEEKS = 9[address] - 709824' ' 8 - 12 WEEKS = [address]42 - 584415' Performed By: #### 2 [id number] ####[facility] [address] [place] [address] Physician Orderon 08-19-2023 Physician Order [id number] Normal [facility] CHEMISTRYOrdered By: Juancho benitez on [...] ratio] 12 mg/mg Normal 10 - 20 [facility] Remisol CHEMISTRYOrdered By: SYSTEM SYSTEM on 01-03-2023 GFR/1.73 sq M.predicted among non-blacks MDRD (S/P/Bld) [Vol rate/Area] 108 mL/min/1.73 m2 Normal >=59mL/min/1 .73 m2 [facility] Chem S HCG.beta subunit Qn 1572 m[IU]/mL High 1 - 3 mIU/mL [facility] Remisol HEMATOLOGYOrdered By: SYSTEM SYSTEM on 01-03-2023 [...] 16.9 E9/L High 4.0 - 11.0 E9/L [facility] HemeAutoSS Laboratory - Microbiology an d Antimicrobial susceptibilityOrdered By: Asuncion Goncalves on 01-03-2023 Bacteria identified Cx Nom (U) No growth to date Continuing incubation [facility] MICRO OTHER TESTSOrdered By: Juancho Fitch [...] Interpretation Code Negative [facility] UA Auto SS [place].plasma/[place].R BC (Bld) [Mass ratio] 0-3 /HPF Normal [...] FT UA Auto SS Urobilinogen Qn (U) 1.4464296 {Georgina'U}/dL Normal 0.0 - 1.0 EU/dL [facility] UA Auto SS WBC Auto Ql (U) 1+ *ABN* (01/03/23 10:52 PM) Invalid Interpretation Code Negative [facility] UA Auto SS WBC LM.HPF (Urine sed) [#/Area] 6-15 /HPF Invalid Interpretation Code 0-5/HPF [facility] UA Auto SS Alanine aminotransferase [En zymatic activity/volume] in Serum or PlasmaOrdered By: Jose Silverman on 10-02-2022 ALT [Catalytic activity/Vol] 13 U/L Normal 7-52 [facility] Comment on above: Performed By: #### C BC, CMP, ETOH #### [facility] [address] [place] [address] [place] Albumin [Mass/volume] in Ser um or Plasma by Bromocresol green (BCG) dye binding methoOrdered By: Jose Silverman on 10-02-2022 Albumin BCG dye [Mass/Vol] 5.0 g/dL 3.5-5.7 [facility] Alkaline phosphatase [Enzyma tic activity/volume] in Serum or PlasmaOrdered By: Jose Silverman on 10-02-2022 ALP [Catalytic activity/Vol] 69 U/L Normal 34-104 [facility] Comment on above: Performed By: #### C BC, CMP, ETOH #### [facility] [address] [place] [address] [place] Amphetamine Screen Ql (U)Ord ered By: Jose Silverman on 10-02-2022 Amphetamines Ql (U) Negative Negative [facility] Aspartate aminotransferase [ Enzymatic activity/volume] in Serum or PlasmaOrdered By: Jose Silverman on 10-02-2022 AST [Catalytic activity/Vol] 21 U/L Normal 13-39 [facility] Comment on above: Performed By: #### C BC, CMP, ETOH #### [address] Automated basophil %Ordered By: Jose Silverman on 10-02-2022 Basophils/100 WBC (Bld) 0.5 % Normal . [facility] Comment on above: Performed By: #### C BC, CMP, ETOH #### [address] Automated basophil countOrde red By: Jose Silverman on 10-02-2022 Basophils (Bld) [#/Vol] 0.1 10*3/uL Normal 0.0-0.2 [facility] Comment on above: Result Comment: PERF ORMED BY: [place] [address] PATHOLOGIST PACK MULE WORKER ASHELY CAREY M.D. Performed By: #### C BC, CMP, ETOH #### [address] Automated blood monocyte cou ntOrdered By: Jose Silverman on 10-02-2022 Monocytes (Bld) [#/Vol] 0.7 10*3/uL Normal 0.0-0.8 [facility] Comment on above: Performed By: #### C BC, CMP, ETOH #### [address] Automated eosinophil %Ordere d By: Jose Silverman on 10-02-2022 Eosinophils/100 WBC (Bld) 2.0 % Normal . [facility] Comment on above: Performed By: #### C BC, CMP, ETOH #### [address] Automated eosinophil countOr dered By: Jose Silverman on 10-02-2022 Eosinophils (Bld) [#/Vol] 0.3 10*3/uL Normal 0.0-0.45 [facility] Comment on above: Performed By: #### C BC, CMP, ETOH #### [address] Automated erythrocytes count in urine sediment (number/area)Ordered By: Jose Silverman on 10-02-2022 RBC Auto (Urine sed) [#/Area] 0-1 [HPF] 0-4 [facility] Automated leukocytes count i n urine sediment (number/area)Ordered By: Jose Silverman on 10-02-2022 WBC Auto (Urine sed) [#/Area] 10-19 [HPF] 0-4 [facility] Automated monocyte %Ordered By: Jose Silverman on 10-02-2022 Monocytes/100 WBC (Bld) 5.7 % Normal . [facility] Comment on above: Performed By: #### C BC, CMP, ETOH #### [facility] [address] Automated neutrophil %Ordere d By: Jose Silverman on 10-02-2022 Neutrophils/100 WBC (Bld) 68.7 % Normal . [facility] Comment on above: Performed By: #### C BC, CMP, ETOH #### [facility] [address] [place] [address] [place] Barbiturates [Presence] in U rine by Screen methodOrdered By: Jose Silverman on 10-02-2022 Barbiturates Screen Ql (U) Negative Negative [facility] Benzodiazepines Screen Ql (U )Ordered By: Jose Silverman on 10-02-2022 Benzodiazepines Ql (U) Negative Negative [facility] Benzoylecgonine [Presence] i n Urine by Screen methodOrdered By: Jose Silverman on 10-02-2022 Benzoylecgonine Screen Ql (U) Negative Negative [facility] Bilirubin Test strip Ql (U)O rdered By: Jose Silverman on 10-02-2022 Bilirubin Ql (U) Negative Negative [facility] Bilirubin.total [Mass/volume ] in Serum or PlasmaOrdered By: Jose Silverman on 10-02-2022 Bilirubin [Mass/Vol] 0.3 mg/dL Normal 0.3-1.0 [facility] Comment on above: Performed By: #### C BC, CMP, ETOH #### [facility] [address] [place] [id number] [place] Calcium [Mass/volume] in Ser um or PlasmaOrdered By: Jose Silverman on 10-02-2022 Calcium [Mass/Vol] 9.6 mg/dL Normal 8.6-10.3 [facility] Comment on above: Performed By: #### C BC, CMP, ETOH #### [facility] [address] [place] [address] [place] Cannabinoids [Presence] in U rine by Screen methodOrdered By: Jose Silverman on 10-02-2022 Cannabinoids Screen Ql (U) Negative Negative [facility] Comment on above: These are unconfirme d results and should not be used for legal purposes. Drug Cut-Off Concentration: AMPH 1000 ng/mL MIAH 200 ng/mL AYAN 200 ng/mL COCM 300 ng/mL OP 300 ng/mL PCP 25 ng/mL THC 20 ng/mL Carbon dioxide, total [Moles /volume] in Serum or PlasmaOrdered By: Jose Silverman on 10-02-2022 CO2 [Moles/Vol] 27.2 mmol/L Normal 21.0-31.[address] [facility] Comment on above: Performed By: #### C BC, CMP, ETOH #### [place] [address] [place] Chloride [Moles/volume] in S brian or PlasmaOrdered By: Jose Silverman on 10-02-2022 Chloride [Moles/Vol] 101 mmol/L Normal 98-107 [facility] Comment on above: Performed By: #### C BC, CMP, ETOH #### [place] [address] [place] Color Auto (U)Ordered By: Loli Silverman on 10-02-2022 Color (U) Yellow Yellow [facility] Complete Blood Count Auto Di ffon 10-02-2022 Mean Corpuscular HGB Conc 32.0 g/dL Normal 32.0-35.0 [facility] Comment on above: Performed By: #### C BC, CMP, ETOH #### [place] [address] [place] Monocytes/100 WBC (Bld) 17.72 % Normal 0.00-20.00 [facility] Comment on above: Performed By: #### C BC, CMP, ETOH #### [address] NRBC% 0.0 /100{WBC} Normal 0-0.5 [facility] Comment on above: Performed By: #### C BC, CMP, ETOH #### [address] Comprehensive Metabolic Pane tung 10-02-2022 Albumin [Mass/Vol] 5.0 g/dL Normal 3.5-5.7 [facility] Comment on above: Performed By: #### C BC, CMP, ETOH #### [address] Creatinine Clr Calc Pharmacy 107.48 Normal [facility] Comment on above: Result Comment: PERF ORMED BY: [place] [address] PATHOLOGIST PACK MULE WORKER ASHELY CAREY M.D. Performed By: #### C BC, CMP, ETOH #### [address] GFR/1.73 sq M.predicted MDRD (S/P/Bld) [Vol rate/Area] mL/min/{1.73_m2} Normal [facility] Comment on above: Performed By: #### C BC, CMP, ETOH #### [address] Creatinine [Mass/volume] in Serum or PlasmaOrdered By: Jose Silverman on 10-02-2022 Creatinine [Mass/Vol] 0.89 mg/dL Normal 0.60-1.20 [facility] Comment on above: Performed By: #### C BC, CMP, ETOH #### [place] [address] [place] Dipstick and Microscopicon 0 10-02-2022 Appearance (U) Clear Normal Clear [facility] Comment on above: Order Comment: Name Collection Type:: Clean-Voided Midstream Performed By: #### U RDS, ADDONUAPLUS, CUU, UHCG #### [address] Bacteria,Urine 2+ High None Seen [facility] Comment on above: Order Comment: Name Collection Type:: Clean-Voided Midstream Performed By: #### U RDS, ADDONUAPLUS, CUU, UHCG #### [facility] [address] [place] [address] [place] Bilirubin,Urine Negative Normal Negative [facility] Comment on above: Order Comment: Name Collection Type:: Clean-Voided Midstream Performed By: #### U RDS, ADDONUAPLUS, CUU, UHCG #### [facility] [address] [place] [address] Color (U) Yellow Normal Yellow [facility] Comment on above: Order Comment: Name Collection Type:: Clean-Voided Midstream Performed By: #### U RDS, ADDONUAPLUS, CUU, UHCG #### [facility] [address] [place] [address] Glucose Ql (U) Normal Normal Normal [facility] Comment on above: Order Comment: Name Collection Type:: Clean-Voided Midstream Performed By: #### U RDS, ADDONUAPLUS, CUU, UHCG #### [facility] [address] [place] [address] [place] Hyaline Casts,Urine 0-8 Normal 0-8 [facility] Comment on above: Order Comment: Name Collection Type:: Clean-Voided Midstream Performed By: #### U RDS, ADDONUAPLUS, CUU, UHCG #### [facility] [address] [place] [address] [place] Ketones Ql (U) Negative Normal Negative [facility] Comment on above: Order Comment: Name Collection Type:: Clean-Voided Midstream Performed By: #### U RDS, ADDONUAPLUS, CUU, UHCG #### [facility] [address] [place] [address] [place] Leukocyte esterase Test strip Ql (U) 3+ High Negative [facility] Comment on above: Order Comment: Name Collection Type:: Clean-Voided Midstream Performed By: #### U RDS, ADDONUAPLUS, CUU, UHCG #### [facility] [address] [place] [address] [place] Nitrite,Urine Negative Normal Negative [facility] Comment on above: Order Comment: Name Collection Type:: Clean-Voided Midstream Performed By: #### U RDS, ADDONUAPLUS, CUU, UHCG #### [address] Occult Blood,Urine Negative Normal Negative [facility] Comment on above: Order Comment: Name Collection Type:: Clean-Voided Midstream Performed By: #### U RDS, ADDONUAPLUS, CUU, UHCG #### [address] pH (U) 6.5 [pH] Normal 5.0-9.0 [facility] Comment on above: Order Comment: Name Collection Type:: Clean-Voided Midstream Performed By: #### U RDS, ADDONUAPLUS, CUU, UHCG #### [address] Protein,Urine Negative Normal Negative [facility] Comment on above: Order Comment: Name Collection Type:: Clean-Voided Midstream Performed By: #### U RDS, ADDONUAPLUS, CUU, UHCG #### [address] RBC LM.HPF (Urine sed) [#/Area] 0 /[HPF] Normal 0-4 [facility] Comment on above: Order Comment: Name Collection Type:: Clean-Voided Midstream Performed By: #### U RDS, ADDONUAPLUS, CUU, UHCG #### [address] Specificy Jenners,Urine 1.021 Normal 1.001-1.030 [facility] Comment on above: Order Comment: Name Collection Type:: Clean-Voided Midstream Performed By: #### U RDS, ADDONUAPLUS, CUU, UHCG #### [address] Squamous Epithelial Cell,Urine 10-19 High 0-2 [facility] Comment on above: Order Comment: Name Collection Type:: Clean-Voided Midstream Performed By: #### U RDS, ADDONUAPLUS, CUU, UHCG #### [facility] [address] [place] [address] Urobilinogen,Urine Normal Normal Normal [facility] Comment on above: Order Comment: Name Collection Type:: Clean-Voided Midstream Performed By: #### U RDS, ADDONUAPLUS, CUU, UHCG #### [facility] [address] [place] [address] WBC,Urine 10-19 High 0-4 [facility] Comment on above: Order Comment: Name Collection Type:: Clean-Voided Midstream Performed By: #### U RDS, ADDONUAPLUS, CUU, UHCG #### [address] Drug Screen,Urineon 10-03-19 Amphetamine Screen,Urine Negative Normal Negative [facility] Comment on above: Performed By: #### U RDS, ADDONUAPLUS, CUU, UHCG #### [place] [address] [place] Barbiturate Screen,Urine Negative Normal Negative [facility] Comment on above: Performed By: #### U RDS, ADDONUAPLUS, CUU, UHCG #### [facility] [address] [place] [address] [place] Benzodiazepines Screen,Urine Negative Normal Negative [facility] Comment on above: Performed By: #### U RDS, ADDONUAPLUS, CUU, UHCG #### [facility] [address] [place] [address] [place] Cannabinoid Screen,Urine Negative Normal Negative [facility] Comment on above: Result Comment: Thes e are unconfirmed results and should not be used for legal purposes. Drug Cut-Off Concentration: AMPH 1000 ng/mL MIAH 200 ng/mL AYAN 200 ng/mL COCM 300 ng/mL OP 300 ng/mL PCP 25 ng/mL THC 20 ng/mL PERFORMED BY: [place] [address] PATHOLOGIST PACK MULE WORKER ASHELY CAREY M.D. Performed By: #### U RDS, ADDONUAPLUS, CUU, UHCG #### [facility] [address] [place] [address] [place] Cocaine Screen,Urine Negative Normal Negative [facility] Comment on above: Performed By: #### U RDS, ADDONUAPLUS, CUU, UHCG #### [facility] [address] [place] [address] [place] Opiate Screen,Urine Negative Normal Negative [facility] Comment on above: Performed By: #### U RDS, ADDONUAPLUS, CUU, UHCG #### [address] Phencyclidine Screen,Urine Negative Normal Negative [facility] Comment on above: Performed By: #### U RDS, ADDONUAPLUS, CUU, UHCG #### [address] Erythrocyte distribution wid th [Ratio] by Automated countOrdered By: Jose Silverman on 10-02-2022 Erythrocyte distribution width (RBC) [Ratio] 15.8 % High 11.9-15.3 [facility] Comment on above: Performed By: #### C BC, CMP, ETOH #### [address] Erythrocytes [#/volume] in B lood by Automated countOrdered By: Jose Silverman on 10-02-2022 RBC (Bld) [#/Vol] 5.31 10*6/uL High 3.60-5.00 [facility] Comment on above: Performed By: #### C BC, CMP, ETOH #### [place] [address] [place] Ethanol [Mass/volume] in Ser um or PlasmaOrdered By: Jose Silverman on 10-02-2022 Ethanol [Mass/Vol] mg/dL Normal [facility] Comment on above: Performed By: #### C BC, CMP, ETOH #### [place] [address] [place] Ethanol [Mass/Vol] TNP [facility] Comment on above: Test not performed Ethyl Alcohol Profileon 09-08 Percent Ethanol Not performed Normal [facility] Comment on above: Result Comment: PERF ORMED BY: [place] [address] PATHOLOGIST PACK MULE WORKER ASHELY CAREY M.D. Performed By: #### C BC, CMP, ETOH #### [facility] [address] [place] [id number] [place] Glucose [Mass/volume] in Ser um or PlasmaOrdered By: Jose Silverman on 10-02-2022 Glucose [Mass/Vol] 98 mg/dL Normal 70-100 [facility] Comment on above: ADA recommended refe rence rangeRandom Glucose Reference Range is dependent on time and content of last meal. Glucose of more than 200 mg/dL in a nonstressed, ambulatory subject supports the diagnosis of Diabetes Mellitus. Result Comment: [place] om Glucose Reference Range is dependent on time and content of last meal. Glucose of more than 200 mg/dL in a nonstressed, ambulatory subject supports the diagnosis of Diabetes Mellitus. ADA recommended reference range Performed By: #### C BC, CMP, ETOH #### [place] [id number] [place] HCG ( test) IA.rapi d Ql (U)Ordered By: Jose Silverman on 10-02-2022 HCG ( test) Ql (U) Negative [facility] HCG,Urineon 10-02-2022 Beta HCG ( test) Ql (U) Negative Normal [facility] Comment on above: Order Comment: Name Collection Type:: Clean-Voided Midstream Result Comment: PERF ORMED BY: [place] [address] PATHOLOGIST PACK MULE WORKER ASHELY CAREY M.D. Performed By: #### U RDS, ADDONUAPLUS, CUU, UHCG #### [facility] [address] [place] [address] [place] Hematocrit [Volume Fraction] of Blood by Automated countOrdered By: Jose Silverman on 10-02-2022 Hematocrit (Bld) [Volume fraction] 41.7 % Normal 34.0-46.4 [facility] Comment on above: Performed By: #### C BC, CMP, ETOH #### [address] Hemoglobin [Mass/volume] in BloodOrdered By: Jose Silverman on 10-02-2022 Hemoglobin (Bld) [Mass/Vol] 13.3 g/dL Normal 11.8-15.4 [facility] Comment on above: Performed By: #### C BC, CMP, ETOH #### [address] Ketones Auto test strip (U) [Mass/Vol]Ordered By: Jose Silverman on 10-02-2022 Ketones (U) [Mass/Vol] Negative Negative [facility] - UrinalysisOrder ed By: Jose Silverman on 10-02-2022 Hyaline casts LM Ql (Urine sed) 0-8 [LPF] 0-8 [facility] Leukocytes [#/volume] correc ruby for nucleated erythrocytes in Blood by Automated counOrdered By: Jose Silverman on 10-02-2022 WBC corrected for nucl RBC Auto (Bld) [#/Vol] 12.9 10*3/uL 3.8-11.6 [facility] Leukocytes [#/volume] in Blo od by Automated countOrdered By: Jose Silverman on 10-02-2022 WBC (Bld) [#/Vol] 12.9 10*3/uL High 3.8-11.6 [facility] Comment on above: Performed By: #### C BC, CMP, ETOH #### [place] [address] [place] Lymphocytes [#/volume] in Bl ood by Automated countOrdered By: Jose Silverman on 10-02-2022 Lymphocytes (Bld) [#/Vol] 3.0 10*3/uL Normal 1.00-4.8 [facility] Comment on above: Performed By: #### C BC, CMP, ETOH #### [place] [address] [place] Lymphocytes/100 leukocytes i n Blood by Automated countOrdered By: Jose Silverman on 10-02-2022 Lymphocytes/100 WBC (Bld) 23.1 % Normal . [facility] Comment on above: Performed By: #### C BC, CMP, ETOH #### [address] MCH [Entitic mass] by Automa ruby countOrdered By: Jose Silverman on 10-02-2022 MCH (RBC) [Entitic mass] 25.2 pg Normal 24.7-34.3 [facility] Comment on above: Performed By: #### C BC, CMP, ETOH #### [address] MCHC Auto (RBC) [Mass/Vol]Or dered By: Jose Silverman on 10-02-2022 MCHC (RBC) [Mass/Vol] 32.0 g/dL 32.0-35.0 [facility] MCV [Entitic volume] by Auto mated countOrdered By: Jose Silverman on 10-02-2022 MCV (RBC) [Entitic vol] 78.5 fL Low 80-100 [facility] Comment on above: Performed By: #### C BC, CMP, ETOH #### [address] Monocyte distribution width [Entitic volume] in Blood by AutomatedOrdered By: Jose Silverman on 10-02-2022 Monocyte distribution width Auto (Bld) [Entitic vol] 17.72 % 0.00-20.00 [facility] Neutrophils [#/volume] in Bl ood by Automated countOrdered By: Jose Silverman on 10-02-2022 Neutrophils (Bld) [#/Vol] 8.9 10*3/uL High 1.8-7.7 [facility] Comment on above: Performed By: #### C BC, CMP, ETOH #### [address] Nitrite Test strip Ql (U)Ord ered By: Jose Silverman on 10-02-2022 Nitrite Ql (U) Negative Negative [facility] No Panel InformationOrdered By: Jose Silverman on 10-02-2022 Estimated GFR (CKD-EPI) > 60.0 mL/Min [facility] Creatinine Clearance (Chem 107.48 [facility] Nucleated erythrocytes [Pres ence] in Blood by Automated countOrdered By: Jose Silverman on 10-02-2022 Nucleated RBC Auto Ql (Bld) 0.0 /100{WBC} 0-0.5 [facility] Opiates [Presence] in Urine by Screen methodOrdered By: Jose Silverman on 10-02-2022 Opiates Screen Ql (U) Negative Negative [facility] Phencyclidine Screen Ql (U)O rdered By: Jose Silverman on 10-02-2022 Phencyclidine Ql (U) Negative Negative [facility] Platelet mean volume [Entiti c volume] in Blood by Automated countOrdered By: Jose Silverman on 10-02-2022 Platelet mean volume (Bld) [Entitic vol] 7.7 fL Normal 6.3-10.7 [facility] Comment on above: Performed By: #### C BC, CMP, ETOH #### [facility] [address] [place] [address] Platelets [#/volume] in Bloo d by Automated countOrdered By: Jose Silverman on 10-02-2022 Platelets (Bld) [#/Vol] 342 10*3/uL Normal 150-450 [facility] Comment on above: Performed By: #### C BC, CMP, ETOH #### [facility] [address] [place] [address] Potassium [Moles/volume] in Serum or PlasmaOrdered By: Jose Silverman on 10-02-2022 Potassium [Moles/Vol] 3.8 mmol/L Normal 3.5-5.1 [facility] Comment on above: Performed By: #### C BC, CMP, ETOH #### [facility] [address] [place] [address] [place] Protein Auto test strip (U) [Mass/Vol]Ordered By: Jose Silverman on 10-02-2022 Protein (U) [Mass/Vol] Negative Negative [facility] Protein [Mass/volume] in Ser um or PlasmaOrdered By: Jose Silverman on 10-02-2022 Protein [Mass/Vol] 8.7 g/dL Normal 6.4-8.9 [facility] Comment on above: Performed By: #### C BC, CMP, ETOH #### [address] Serum globulin measurement b y calculation (mass/volume)Ordered By: Jose Silverman on 10-02-2022 Globulin (S) [Mass/Vol] 3.7 g/dL Normal [facility] Comment on above: Performed By: #### C BC, CMP, ETOH #### [address] Serum or plasma albumin/glob ulin mass ratioOrdered By: Jose Silverman on 10-02-2022 Albumin/Globulin [Mass ratio] 1.4 {ratio} Normal [facility] Comment on above: Performed By: #### C BC, CMP, ETOH #### [address] Serum or plasma anion gap de terminationOrdered By: Jose Silverman on 10-02-2022 Anion gap [Moles/Vol] 12.6 mmol/L Normal 6.0-15.0 [facility] Comment on above: Performed By: #### C BC, CMP, ETOH #### [address] Sodium [Moles/volume] in Ser um or PlasmaOrdered By: Jose Silverman on 10-02-2022 Sodium [Moles/Vol] 137 mmol/L Normal 136-145 [facility] Comment on above: Performed By: #### C BC, CMP, ETOH #### [address] Specific gravity Auto test s trip (U) [Rel density]Ordered By: Jose Silverman on 10-02-2022 Specific gravity (U) [Rel density] 1.021 1.001-1.030 [facility] Squamous epithelial cells de tection in urine sediment by light microscopyOrdered By: Jose Silverman on 10-02-2022 Epithelial cells.squamous LM Ql (Urine sed) 10-19 [HPF] 0-2 [facility] Urea nitrogen [Mass/volume] in Serum or PlasmaOrdered By: Jose Silverman on 10-02-2022 Urea nitrogen [Mass/Vol] 18 mg/dL Normal 7-25 [facility] Comment on above: Performed By: #### C BC, CMP, ETOH #### [facility] [address] [place] [address] [place] Urine Cultureon 10-02-2022 Bacteria identified Cx Nom (U) ORGANISM: Strep agalactiae - (group b) (O:STRAGA) [place] Count 50,000 PERFORMED BY: [place] [address] PATHOLOGIST [employer] ASHELY CAREY M.D. Normal [facility] Comment on above: Performed By: #### U RDS, ADDONUAPLUS, CUU, UHCG #### [facility] [address] [place] [address] Urine bacteria detection by automated methodOrdered By: Jose Silverman on 10-02-2022 Bacteria Auto Ql (U) 2+ None Seen [facility] Urine clarity by refractomet ry automatedOrdered By: Jose Silverman on 10-02-2022 Clarity Refractometry automated (U) Clear Clear [facility] Urine glucose measurement by automated test strip (mass/volume)Ordered By: Jose Silverman on 10-02-2022 Glucose Auto test strip (U) [Mass/Vol] Normal mg/dL Normal [facility] Urine hemoglobin detection b y automated test stripOrdered By: Jose Silverman on 10-02-2022 Hemoglobin Auto test strip Ql (U) Negative Negative [facility] Urine leukocyte esterase det ection by automated test stripOrdered By: Jose Silverman on 10-02-2022 Leukocyte esterase Auto test strip Ql (U) 3+ Negative [facility] Urobilinogen Auto test strip (U) [Mass/Vol]Ordered By: Jose Silverman on 10-02-2022 Urobilinogen (U) [Mass/Vol] Normal mg/dL Normal [facility] pH Auto test strip (U)Ordere d By: Jose Silverman on 10-02-2022 pH (U) 6.5 [pH] 5.0-9.0 [facility] Quick Strepon 09-25-2022 S. pyogenes Org specific cx Ql (Throat) Negative [employer] Other Quick Strep [employer] Other CHEMISTRYOrdered By: SYSTEM SYSTEM on 09-06-2022 [...] AM) Normal Negative [facility] UA Auto SS [place].plasma/[place].R BC (Bld) [Mass ratio] >30 /HPF Invalid [...] AM) Invalid Interpretation Code 1.005 - 1.030 [facility] UA Auto SS UA Spec Desc Clean Catch (09/06/22 11:19 AM) Normal [facility] UA Auto SS Urobilinogen Qn (U) [id number] {Georgina'U}/dL Normal 0.0 - 1.0 EU/dL FT UA Auto SS WBC Auto Ql (U) Negative (09/06/22 11:19 AM) Normal Negative [facility] UA Auto SS WBC LM.HPF (Urine sed) [#/Area] 0-5 /HPF Normal 0-5/HPF [facility] UA Auto SS BLOOD BANKOrdered By: John Montague on 08-14-2022 ABO/Rh Interp Positive Invalid Interpretation Code [facility] BB Subsection CHEMISTRYOrdered By: SYSTEM SYSTEM on [...] PM) Normal Negative [facility] UA Auto SS [place].plasma/[place].R BC (Bld) [Mass ratio] 0-3 /HPF Normal [...] [facility] UA Auto SS Urobilinogen Qn (U) 0.7115755 {Georgina'U}/dL Normal 0.0 - 1.0 EU/dL [facility] UA Auto SS WBC Auto Ql (U) Negative (08/14/22 7:29 PM) Normal Negative [facility] UA Auto SS WBC LM.HPF (Urine sed) [#/Area] 0-5 /HPF Normal 0-5/HPF [facility] UA Auto SS CHLAMYDIA/GONOCOCCUS ALFREDO (SW AB/URINE/PAPon 07-15-2022 Chlamydia trachomatis, ALFREDO Negative Normal Negative [facility] Comment on above: Performed By: #### C T/NGNA #### [facility] [address] [address] [address] Cyril Hendricks Neisseria gonorrhoeae, ALFREDO Negative Normal Negative [facility] Comment on above: Performed By: #### C T/NGNA #### [facility] [address] [address] [address] Cyril Hendricks VAGINITIS/VAGINOSIS DNA PROB Maurice 07-13-2022 Krista species Negative Normal Negative [facility] Comment on above: Performed By: #### U MICRO, UACSIND #### [facility] [address] [address] [address] Cyril Hendricks Gardnerella vaginalis Positive Abnormal Negative [facility] Comment on above: Performed By: #### U MICRO, UACSIND #### [facility] [address] [address] [address] Cyril Hendricks Trichomonas vaginalis Negative Normal Negative [facility] Comment on above: Performed By: #### U MICRO, UACSIND #### [facility] [address] [address] [address] Cyril Hendricks COVID/FLU RT-PCRon SARS-CoV-2 (COVID-19) RNA ALFREDO+probe Ql (Unsp spec) Negative [employer] Other COVID/FLU RT-PCR Negative [employer] Other Quick Strepon 06-24-2022 S. pyogenes Org specific cx Ql (Throat) Negative [employer] Other Quick Strep [employer] Other CBC AUTO DIFFon 01-08-2022 BASO # 0.1 103/ul Normal 0.0-0.1 [facility] Comment on above: Performed By: #### C BC #### [facility] [address] [address] [address] Cyril Hendricks Basophils/100 WBC (Bld) 0.4 % Normal 0.2-2.0 [facility] Comment on above: Performed By: #### C BC #### [facility] [address] [address] [address] Cyril Hendricks EO # 0.1 103/ul Normal 0.0-0.7 [facility] Comment on above: Performed By: #### C BC #### [facility] [address] [place] [address] Dr. Cyril Hendricks Eosinophils/100 WBC (Bld) 0.9 % Normal 0.9-7.0 [facility] Comment on above: Performed By: #### C BC #### [facility] [address] [address] [address] Cyril Hendricks Erythrocyte distribution width (RBC) [Ratio] 12.3 % Normal 11.0-15.0 [facility] Comment on above: Performed By: #### C BC #### [facility] [address] [place] [address] Dr. Cyril Hendricks Hematocrit (Bld) [Volume fraction] 30.0 % Critically low 36.0-48.0 [facility] Comment on above: Performed By: #### C BC #### [facility] [address] [place] [address] Dr. Cyril Hendricks Hemoglobin (Bld) [Mass/Vol] 10.2 g/dL Critically low 12.0-16.0 [facility] Comment on above: Performed By: #### C BC #### [facility] [address] [place] [address] Dr. Cyril Hendricks IG # 0.05 10e3/ul Critically high 0.00-0.03 [facility] Comment on above: Performed By: #### C BC #### [facility] [address] [place] [address] Dr. Cyril Hendricks IG % 0.4 % Normal 0.0-0.5 [facility] Comment on above: Performed By: #### C BC #### [facility] [address] [place] [address] Dr. Cyril Hendricks LYMPH # 2.8 103/ul Normal 1.2-3.8 [facility] Comment on above: Performed By: #### C BC #### [facility] [address] [place] [address] Dr. Cyril Hendricks Lymphocytes/100 WBC (Bld) 19.7 % Critically low 20.5-60.0 [facility] Comment on above: Performed By: #### C BC #### [facility] [address] [place] [address] Dr. Cyril Hendricks MANUAL DIFF REQ NO Normal [facility] Comment on above: Performed By: #### C BC #### [facility] [address] [place] [address] Dr. Cyril Hendricks MCH (RBC) [Entitic mass] 30.6 pg Normal 26.7-34.0 [facility] Comment on above: Performed By: #### C BC #### [facility] [address] [place] [address] Dr. Cyril Hendricks MCHC (RBC) [Mass/Vol] 34.0 g/dL Normal 29.9-35.2 [facility] Comment on above: Performed By: #### C BC #### [facility] [address] [place] [address] Dr. Cyril Hendricks MCV (RBC) [Entitic vol] 90.1 fL Normal 81.0-99.0 [facility] Comment on above: Performed By: #### C BC #### [facility] [address] [place] [address] Dr. Cyril Hendricks MONO # 0.8 103/ul Normal 0.3-0.8 [facility] Comment on above: Performed By: #### C BC #### [facility] [address] [place] [address] Dr. Cyril Hendricks Monocytes/100 WBC (Bld) 5.9 % Normal 1.7-12.0 [facility] Comment on above: Performed By: #### C BC #### [facility] [address] [place] [address] Dr. Cyril Hendricks NEUT # 10.3 103/ul Critically high 1.4-6.5 [facility] Comment on above: Performed By: #### C BC #### [facility] [address] [place] [address] Dr. Cyril Hendricks Neutrophils/100 WBC (Bld) 72.7 % Normal 43.0-75.0 [facility] Comment on above: Performed By: #### C BC #### [facility] [address] [place] [address] Dr. Cyril Hendricks Platelet mean volume (Bld) [Entitic vol] 9.8 fL Normal 9.5-13.5 [facility] Comment on above: Performed By: #### C BC #### [facility] [address] [place] [address] Dr. Cyril Hendricks PLT 207 103/ul Normal 150-450 [facility] Comment on above: Performed By: #### C BC #### [facility] [address] [place] [address] Dr. Cyril Hendricks RBC 3.33 106/ul Critically low 4.20-5.40 [facility] Comment on above: Performed By: #### C BC #### [facility] [address] [place] [address] Dr. Cyril Hendricks WBC 14.2 103/ul Critically high 4.0-11.0 [facility] Comment on above: Performed By: #### C BC #### [facility] [address] [place] [address] Dr. Cyril Hendricks CBC AUTO DIFFon 01-07-2022 BASO # 0.1 103/ul Normal 0.0-0.1 [facility] Comment on above: Performed By: #### U MICRO, UACSIND #### [facility] [address] [place] [address] Dr. Cyril Hendricks Basophils/100 WBC (Bld) 0.5 % Normal 0.2-2.0 [facility] Comment on above: Performed By: #### U MICRO, UACSIND #### [facility] [address] [place] [address] Dr. Cyril Hendricks EO # 0.1 103/ul Normal 0.0-0.7 [facility] Comment on above: Performed By: #### U MICRO, UACSIND #### [facility] [address] [place] [address] Dr. Cyril Hendricks Eosinophils/100 WBC (Bld) 0.9 % Normal 0.9-7.0 [facility] Comment on above: Performed By: #### U MICRO, UACSIND #### [facility] [address] [place] [address] Dr. Cyril Hendricks Erythrocyte distribution width (RBC) [Ratio] 12.4 % Normal 11.0-15.0 [facility] Comment on above: Performed By: #### U MICRO, UACSIND #### [facility] [address] [place] [address] Dr. Cyril Hendricks Hematocrit (Bld) [Volume fraction] 34.3 % Critically low 36.0-48.0 [facility] Comment on above: Performed By: #### U MICRO, UACSIND #### [facility] [address] [place] [address] Dr. Cyril Hendricks Hemoglobin (Bld) [Mass/Vol] 11.6 g/dL Critically low 12.0-16.0 [facility] Comment on above: Performed By: #### U MICRO, UACSIND #### [facility] [address] [place] [address] Dr. Cyril Hendricks IG # 0.06 10e3/ul Critically high 0.00-0.03 [facility] Comment on above: Performed By: #### U MICRO, UACSIND #### [facility] [address] [place] [address] Dr. Cyril Hendricks IG % 0.4 % Normal 0.0-0.5 [facility] Comment on above: Performed By: #### U MICRO, UACSIND #### [facility] [address] [address] [address] Cyril Hendricks LYMPH # 3.1 103/ul Normal 1.2-3.8 [facility] Comment on above: Performed By: #### U MICRO, UACSIND #### [facility] [address] [place] [address] Dr. Cyril Hendricks Lymphocytes/100 WBC (Bld) 20.4 % Critically low 20.5-60.0 [facility] Comment on above: Performed By: #### U MICRO, UACSIND #### [facility] [address] [place] [address] Dr. Cyril Hendricks MANUAL DIFF REQ NO Normal [facility] Comment on above: Performed By: #### U MICRO, UACSIND #### [facility] [address] [place] [address] Dr. Cyril Hendricks MCH (RBC) [Entitic mass] 30.6 pg Normal 26.7-34.0 [facility] Comment on above: Performed By: #### U MICRO, UACSIND #### [facility] [address] [place] [address] Dr. Cyril Hendricks MCHC (RBC) [Mass/Vol] 33.8 g/dL Normal 29.9-35.2 [facility] Comment on above: Performed By: #### U MICRO, UACSIND #### [facility] [address] [place] [address] Dr. Cyril Hendricks MCV (RBC) [Entitic vol] 90.5 fL Normal 81.0-99.0 [facility] Comment on above: Performed By: #### U MICRO, UACSIND #### [facility] [address] [place] [address] Dr. Cyril Hendricks MONO # 0.9 103/ul Critically high 0.3-0.8 [facility] Comment on above: Performed By: #### U MICRO, UACSIND #### [facility] [address] [place] [address] Dr. Cyril Hendricks Monocytes/100 WBC (Bld) 6.2 % Normal 1.7-12.0 [facility] Comment on above: Performed By: #### U MICRO, UACSIND #### [facility] [address] [address] [address] Cyril Hendricks NEUT # 10.9 103/ul Critically high 1.4-6.5 [facility] Comment on above: Performed By: #### U MICRO, UACSIND #### [facility] [address] [address] [address] Cyril Hendricks Neutrophils/100 WBC (Bld) 71.6 % Normal 43.0-75.0 [facility] Comment on above: Performed By: #### U MICRO, UACSIND #### [facility] [address] [place] [address] Dr. Cyril Hendricks Platelet mean volume (Bld) [Entitic vol] 11.1 fL Normal 9.5-13.5 [facility] Comment on above: Performed By: #### U MICRO, UACSIND #### [facility] [address] [place] [address] Dr. Cyril Hendricks PLT 240 103/ul Normal 150-450 [facility] Comment on above: Performed By: #### U MICRO, UACSIND #### [facility] [address] [place] [address] Dr. Cyril Hendrciks RBC 3.79 106/ul Critically low 4.20-5.40 [facility] Comment on above: Performed By: #### U MICRO, UACSIND #### [facility] [address] [place] [address] Dr. Cyril Hendricks WBC 15.3 103/ul Critically high 4.0-11.0 [facility] Comment on above: Performed By: #### U MICRO, UACSIND #### [facility] [address] [place] [address] Dr. Cyril Hendricks [facility]on SARS-CoV-2 (COVID-19) RNA ALFREDO+probe Ql (Unsp spec) Not detected Normal NOT DETECTED [facility] Comment on above: Result Comment: When [...] for this test is supported by the [place] of Health and Human Service's declaration that [...] used). Performed By: #### H CVPCRR #### [facility] [address] [place] [address] Dr. Cyril Hendricks DRUG SCREEN RAPID (URINE)on 01-07-2022 AMP Negative Normal NEGATIVE [facility] Comment on above: Performed By: #### U MICRO, UACSIND #### [facility] [address] [place] [address] Dr. Cyril Hendricks BAR Negative Normal NEGATIVE [facility] Comment on above: Performed By: #### U MICRO, UACSIND #### [facility] [address] [place] [address] Dr. Cyril Hendricks BUP Negative Normal NEGATIVE [facility] Comment on above: Performed By: #### U MICRO, UACSIND #### [facility] [address] [place] [address] Dr. Cyril Hendricks BZO Negative Normal NEGATIVE [facility] Comment on above: Performed By: #### U MICRO, UACSIND #### [facility] [address] [place] [address] Dr. Cyril Hendricks DARIN Negative Normal NEGATIVE [facility] Comment on above: Performed By: #### U MICRO, UACSIND #### [facility] [address] [place] [address] Dr. Cyril Hendricks CUT-OFFS SEE BELOW Normal [facility] Comment on above: Result Comment: AMP [...] Performed By: #### U MICRO, UACSIND #### [facility] [address] [place] [address] Dr. Cyril Hendricks DRUG CUT HEADER DRUG CLASS TEST SYSTEM CUT-OFF CONCENTRATIONS ARE FOLLOWS: Normal [facility] Comment on above: Performed By: #### U MICRO, UACSIND #### [facility] [address] [place] [address] Dr. Cyril Hendricks mAMP Negative Normal NEGATIVE [facility] Comment on above: Performed By: #### U MICRO, UACSIND #### [facility] [address] [place] [address] Dr. Cyril Hendricks MTD Negative Normal NEGATIVE [facility] Comment on above: Performed By: #### U MICRO, UACSIND #### [facility] [address] [address] [address] Cyril Hendricks OPI Negative Normal NEGATIVE [facility] Comment on above: Performed By: #### U MICRO, UACSIND #### [facility] [address] [address] [address] Cyril Hendricks OXY Negative Normal NEGATIVE [facility] Comment on above: Performed By: #### U MICRO, UACSIND #### [facility] [address] [address] [address] Cyril Hendricks PCP Negative Normal NEGATIVE [facility] Comment on above: Performed By: #### U MICRO, UACSIND #### [facility] [address] [place] [address] Dr. Cyril Hendricks PPX Negative Normal NEGATIVE [facility] Comment on above: Performed By: #### U MICRO, UACSIND #### [facility] [address] [place] [address] Dr. Cyril Hendricks TCA Negative Normal NEGATIVE [facility] Comment on above: Performed By: #### U MICRO, UACSIND #### [facility] [address] [place] [address] Dr. Cyril Hendricks THC Negative Normal NEGATIVE [facility] Comment on above: Performed By: #### U MICRO, UACSIND #### [facility] [address] [place] [address] Dr. Cyril Hendricks TYPE AND SCREENon 01-07-2022 TYPE AND SCREEN Negative Normal [facility] Comment on above: Performed By: #### H CVPCRR #### [facility] [address] [place] [address] Dr. Cyril Hendricks CULTURE URINEon 12-29-2021 CULTURE URINE Culture Observations: NO GROWTH. Normal [facility] Comment on above: Performed By: #### U RCX #### [facility] [address] [place] [address] Dr. Cyril Hendricks UA (CLEAN/CATCH) SURFACE ROOM SHOP OPTICIAN/MICRO I F IND.on 12-29-2021 Bilirubin Ql (U) Negative Normal NEGATIVE [facility] Comment on above: Performed By: #### U MICRO, UACSIND #### [facility] [address] [place] [address] Dr. Cyril Hendricks Clarity (U) SL CLOUDY Abnormal CLEAR [facility] Comment on above: Performed By: #### U MICRO, UACSIND #### [facility] [address] [place] [address] Dr. Cyril Hendricks Color (U) LT. YELLOW Normal YELLOW [facility] Comment on above: Performed By: #### U MICRO, UACSIND #### [facility] [address] [place] [address] Dr. Cyril Hendricks Glucose Ql (U) Negative Normal NEGATIVE [facility] Comment on above: Performed By: #### U MICRO, UACSIND #### [facility] [address] [address] [address] Cyril Hendricks Hemoglobin Ql (U) Negative Normal NEGATIVE [facility] Comment on above: Performed By: #### U MICRO, UACSIND #### [facility] [address] [address] [address] Cyril Hendricks Ketones Ql (U) Negative Normal NEGATIVE [facility] Comment on above: Performed By: #### U MICRO, UACSIND #### [facility] [address] [address] [address] Cyril Hendricks LEUKOCYTES LARGE Abnormal NEGATIVE [facility] Comment on above: Performed By: #### U MICRO, UACSIND #### [facility] [address] [place] [address] Dr. Cyril Hendricks Nitrite Ql (U) Negative Normal NEGATIVE [facility] Comment on above: Performed By: #### U MICRO, UACSIND #### [facility] [address] [place] [address] Dr. Cyril Hendricks pH (U) 6.5 [pH] Normal 5-9 [facility] Comment on above: Performed By: #### U MICRO, UACSIND #### [facility] [address] [place] [address] Dr. Cyril Hendricks SPEC GRAVITY 1.010 Normal 1.005-<=1.02 5 [facility] Comment on above: Performed By: #### U MICRO, UACSIND #### [facility] [address] [place] [address] Dr. Cyril Hendricks UA PROTEIN Negative Normal NEGATIVE/ TRACE [facility] Comment on above: Performed By: #### U MICRO, UACSIND #### [facility] [address] [place] [address] Dr. Cyril Hendricks UR MICRO IND INDICATED Normal [facility] Comment on above: Performed By: #### U MICRO, UACSIND #### [facility] [address] [place] [address] Dr. Cyril Hendricks Urobilinogen Qn (U) 0.2 {Georgina'U}/dL Normal 0.2 - 1. 0 [facility] Comment on above: Performed By: #### U MICRO, UACSIND #### [facility] [address] [place] [address] Dr. Cyril Hendricks URINE MICROSCOPIC ONLYon BACTERIA SMALL Abnormal NONE SEEN [facility] Comment on above: Performed By: #### U MICRO, UACSIND #### [facility] [address] [address] [address] Cyril Hendricks Bacteria identified Cx Nom (U) INDICATED Normal [facility] Comment on above: Performed By: #### U MICRO, UACSIND #### [facility] [address] [place] [address] Dr. Cyril Hendricks CAST NONE SEEN Normal NONE SEEN [facility] Comment on above: Performed By: #### U MICRO, UACSIND #### [facility] [address] [place] [address] Dr. Cyril Hendricks Crystals LM Nom (Urine sed) NONE SEEN Normal NONE SEEN [facility] Comment on above: Performed By: #### U MICRO, UACSIND #### [facility] [address] [place] [address] Dr. Cyril Hendricks Epithelial cells LM Ql (Urine sed) MANY Abnormal NONE SEEN /RARE [facility] Comment on above: Performed By: #### U MICRO, UACSIND #### [facility] [address] [place] [address] Dr. Cyril Hendricks MUCOUS NONE SEEN Normal NONE SEEN [facility] Comment on above: Performed By: #### U MICRO, UACSIND #### [facility] [address] [place] [address] Dr. Cyril Hendricks RBC 0-2 Normal 0-2 [facility] Comment on above: Performed By: #### U MICRO, UACSIND #### [facility] [address] [place] [address] Dr. Cyril Hendricks WBC 10-20 Abnormal NONE SEEN [facility] Comment on above: Performed By: #### U MICRO, UACSIND #### [facility] [address] [place], [place] [address] Dr. Cyril Hendricks GROUP B STREP CULTUREon 12-07 S. agalactiae Ag Ql (Unsp spec) Culture Observations: NEGATIVE FOR GROUP B STREPTOCOCCUS. Normal [facility] Comment on above: Performed By: #### G BSCX #### [facility] [address] [place], [place] [address] Dr. Cyril Hendricks SSAon 12-13-2021 SSA <0.3 Normal <7.0 [facility] Comment on above: Result Comment: Reference Range: <7.0 Negative 7.0-10.0 Equivocal >10.0 Positive Performed By: #### S SARO, TSH, FT4, SSBLA #### [facility] [employer] [address] [place] [id number] Cost Estimator: Homer Hoffman MD SSBon 12-13-2021 SSB <0.3 Normal <7.0 [facility] Comment on above: Result Comment: Reference Range: <7.0 Negative 7.0-10.0 Equivocal >10.0 Positive Performed By: #### S SARO, TSH, FT4, SSBLA #### [facility] [address] [place] [address] [id number] Cost Estimator: Homer Hoffman MD No Panel Informationon 12-12 [facility] T4, Freeon 12-12-2021 Thyroxine, Free 0.98 ng/dL 0.93 - 1.70 ng/dL [facility] TSHon 12-12-2021 TSH Qn 4.35 m[IU]/L [facility] Thyroid Stim. Horm.on 2021 Thyroid Stim. Horm. 4.35 uIU/mL Normal 0.30-5.00 [facility] Comment on above: Performed By: #### S SARO, TSH, FT4, SSBLA #### [facility] [address] [place] [id number] Cost Estimator: Homer Hoffman MD Thyroxine, Freeon 12-12-2021 Thyroxine, Free 0.98 ng/dL Normal 0.93-1.70 [facility] Comment on above: Performed By: #### S SARO, TSH, FT4, SSBLA #### [facility] [employer] [address] [place] [address] Cost Estimator: Homer Hoffman MD US PREG BIOPHY W [...] by: SOFIA KABA Date: 2021-11-27 13:55 Normal [facility] COVID + FLU Quick Testingon 11-13-2021 SARS-CoV-2 (COVID-19) RNA ALFREDO+probe Ql (Unsp spec) Negative [facility] [employer] Other COVID + FLU Quick Testing Negative [facility] [employer] Other GLUCOSE - 1HRon 10-23-2021 Glucose [Mass/Vol] 83 mg/dL Normal 74-106 [facility] Comment on above: Performed By: #### G LU1HR #### [facility] [address] [place] [address] Dr. Cyril Hendricks CHLAMYDIA/GONOCOCCUS ALFREDO ( AB/URINE/PAPon 10-05-2021 Chlamydia trachomatis, ALFREDO Negative Normal Negative [facility] Comment on above: Performed By: #### C T/NGNA #### [facility] [address] [place] [address] Dr. Cyril Hendricks Neisseria gonorrhoeae, ALFREDO Negative Normal Negative [facility] Comment on above: Performed By: #### C T/NGNA #### [facility] [address] [place] [address] Dr. Cyril Hendricks VAGINITIS/VAGINOSIS DNA PROB Maurice 10-04-2021 Krista species Positive Abnormal Negative [facility] Comment on above: Performed By: #### H CVPCRR #### [facility] [address] [place] [address] Dr. Cyril Hendricks Gardnerella vaginalis Negative Normal Negative [facility] Comment on above: Performed By: #### H CVPCRR #### [facility] [address] [place] [address] Dr. Cyril Hendricks Trichomonas vaginalis Negative Normal Negative [facility] Comment on above: Performed By: #### H CVPCRR #### [facility] [address] [place] [address] Dr. Cyril Hendricks HEP B SURFACE ANTIGEN SCREEN on 10-03-2021 HBsAg Screen Negative Normal Negative [facility] Comment on above: Performed By: #### H CVPCRR #### [facility] [address] [place] [address] Dr. Cyril Hendricks HEPATITIS C VIRUS AB W/ REFL EX QUANTon 10-03-2021 HCV AB <0.1 Normal 0.0-0.9 [facility] Comment on above: Performed By: #### H CVPCRR #### [facility] [address] [place] [address] Dr. Cyril Hendricks Interpretation: Comment Normal [facility] Comment on above: Result Comment: Nega tive Not infected with HCV, unless recent infection is suspected or other evidence exists to indicate HCV infection. Performed By: #### H CVPCRR #### [facility] [address] [place] [address] Dr. Cryil Hendricks HIV 1 AND 2 WITH REFLEXon HIV Screen 4th Generation wRfx Non-Reactive Normal Non Reactive [facility] Comment on above: Result Comment: HIV Negative HIV-1/HIV-2 antibodies and HIV-1 p24 antigen were NOT detected. There is no laboratory evidence of HIV infection. Performed By: #### H IV12 #### [facility] [address] [place] [address] Dr. Cyril Hendricks RPR QUANTon 10-03-2021 Rapid Plasma Reagin, Quant Non-Reactive Normal NonRea<1:1 [facility] Comment on above: Result Comment: Juliette brito Note: This test does not meet current guidelines for screening and diagnosis of syphilis. This test is intended for following treatment response in patients being treated for syphilis infection. To screen for syphilis infection, a reflex cascade that includes both RPR and a treponema-specific assay should be utilized, such as Treponema pallidum (Syphilis) Screening [place] (162820) or Rapid Plasma Reagin (RPR) Test With Reflex to Quantitative RPR and Confirmatory Treponema pallidum Antibodies (297431). Performed By: #### U MICRO, UACSIND #### [facility] [address] [place] [address] Dr. Cyril Hendricks RUBELLA AB IGGon 10-03-2021 Rubella Antibodies, IgG <0.90 Critically low Immune > 0.99 [facility] Comment on above: Result Comment: Non- immune <0.90 Equivocal 0.90 - 0.99 Immune >0.99 Performed By: #### U MICRO, UACSIND #### [facility] [address] [place] [address] Dr. Cyril Hendricks CBC AUTO DIFFon 10-02-2021 BASO # 0.1 103/ul Normal 0.0-0.1 [facility] Comment on above: Performed By: #### U MICRO, UACSIND #### [facility] [address] [place] [address] Dr. Cyril Hendricks Basophils/100 WBC (Bld) 0.4 % Normal 0.2-2.0 [facility] Comment on above: Performed By: #### U MICRO, UACSIND #### [facility] [address] [place] [address] Dr. Cyril Hendricks EO # 0.1 103/ul Normal 0.0-0.7 [facility] Comment on above: Performed By: #### U MICRO, UACSIND #### [facility] [address] [place] [address] Dr. Cyril Hendricks Eosinophils/100 WBC (Bld) 1.1 % Normal 0.9-7.0 [facility] Comment on above: Performed By: #### U MICRO, UACSIND #### [facility] [address] [place] [address] Dr. Cyril Hendricks Erythrocyte distribution width (RBC) [Ratio] 13.5 % Normal 11.0-15.0 [facility] Comment on above: Performed By: #### U MICRO, UACSIND #### [facility] [address] [place] [address] Dr. Cyril Hendricks Hematocrit (Bld) [Volume fraction] 34.5 % Critically low 36.0-48.0 [facility] Comment on above: Performed By: #### U MICRO, UACSIND #### [facility] [address] [place] [address] Dr. Cyril Hendricks Hemoglobin (Bld) [Mass/Vol] 12.0 g/dL Normal 12.0-16.0 [facility] Comment on above: Performed By: #### U MICRO, UACSIND #### [facility] [address] [place] [address] Dr. Cyril Hendricks IG # 0.04 10e3/ul Critically high 0.00-0.03 [facility] Comment on above: Performed By: #### U MICRO, UACSIND #### [facility] [address] [place] [address] Dr. Cyril Hendricks IG % 0.3 % Normal 0.0-0.5 [facility] Comment on above: Performed By: #### U MICRO, UACSIND #### [facility] [address] [place] [address] Dr. Cyril Hendricks LYMPH # 2.6 103/ul Normal 1.2-3.8 [facility] Comment on above: Performed By: #### U MICRO, UACSIND #### [facility] [address] [place] [address] Dr. Cyril Hendricks Lymphocytes/100 WBC (Bld) 21.3 % Normal 20.5-60.0 [facility] Comment on above: Performed By: #### U MICRO, UACSIND #### [facility] [address] [address] [address] Cyril Hendricks MANUAL DIFF REQ NO Normal [facility] Comment on above: Performed By: #### U MICRO, UACSIND #### [facility] [address] [address] [address] Cyril Hendricks MCH (RBC) [Entitic mass] 32.5 pg Normal 26.7-34.0 [facility] Comment on above: Performed By: #### U MICRO, UACSIND #### [facility] [address] [place] [address] Dr. Cyril Hendricks MCHC (RBC) [Mass/Vol] 34.8 g/dL Normal 29.9-35.2 [facility] Comment on above: Performed By: #### U MICRO, UACSIND #### [facility] [address] [place] [address] Dr. Cyril Hendricks MCV (RBC) [Entitic vol] 93.5 fL Normal 81.0-99.0 [facility] Comment on above: Performed By: #### U MICRO, UACSIND #### [facility] [address] [place] [address] Dr. Cyril Hendricks MONO # 0.8 103/ul Normal 0.3-0.8 [facility] Comment on above: Performed By: #### U MICRO, UACSIND #### [facility] [address] [place] [address] Dr. Cyril Hendricks Monocytes/100 WBC (Bld) 6.2 % Normal 1.7-12.0 [facility] Comment on above: Performed By: #### U MICRO, UACSIND #### [facility] [address] [place] [address] Dr. Cyril Hendricks NEUT # 8.6 103/ul Critically high 1.4-6.5 [facility] Comment on above: Performed By: #### U MICRO, UACSIND #### [facility] [address] [place] [address] Dr. Cyril Hendricks Neutrophils/100 WBC (Bld) 70.7 % Normal 43.0-75.0 [facility] Comment on above: Performed By: #### U MICRO, UACSIND #### [facility] [address] [address] [address] Cyril Hendricks Platelet mean volume (Bld) [Entitic vol] 9.1 fL Critically low 9.5-13.5 [facility] Comment on above: Performed By: #### U MICRO, UACSIND #### [facility] [address] [address] [address] Cyril Hendricks PLT 257 103/ul Normal 150-450 [facility] Comment on above: Performed By: #### U MICRO, UACSIND #### [facility] [address] [address] [address] Cyril Hendricks RBC 3.69 106/ul Critically low 4.20-5.40 [facility] Comment on above: Performed By: #### U MICRO, UACSIND #### [facility] [address] [address] [address] Cyril Hendricks WBC 12.2 103/ul Critically high 4.0-11.0 [facility] Comment on above: Performed By: #### U MICRO, UACSIND #### [facility] [address] [place] [address] Dr. Cyril Hendricks CULTURE URINEon 10-02-2021 CULTURE URINE Culture Observations: MODERATE GROWTH OF MIXED GENITAL DRAGAN. NO POTENTIAL PATHOGENS SEEN. Normal [facility] Comment on above: Performed By: #### H CVPCRR #### [facility] [address] [place] [address] Dr. Cyril Hendricks GLYCOHEMOGLOBIN A1Con 2021 ADA RECOMMENDATION SEE BELOW Normal [facility] Comment on above: Result Comment: ADA RECOMMENDED LIMIT 4.0 - 6.0 ADA THERAPEUTIC TARGET < 7.0 ACTION SUGGESTED > 7.0 Performed By: #### H CVPCRR #### [facility] [address] [place] [address] Dr. Cyril Hendricks Glucose [Mass/Vol] 80 mg/dL Normal [facility] Comment on above: Performed By: #### H CVPCRR #### [facility] [address] [place], [place] [address] Dr. Cyril Hendricks HbA1c (Bld) [Mass fraction] 4.4 % Critically low 4.5-6.2 [facility] Comment on above: Performed By: #### H CVPCRR #### [facility] [address] [place], [place] [address] Dr. Cyril Hendricks TYPE AND SCREENon 10-02-2021 TYPE AND SCREEN Negative Normal [facility] Comment on above: Performed By: #### H CVPCRR #### [facility] [address] [place], [place] [address] Dr. Cyril Hendricks US PREG PLACENTAon 2 [...] SOFIA KABA Date: 2021-10-02 10:47 Normal [facility] US PREG ANATOMY SINGLEon US PREG [...] (44% by ultrasound, 29% by expected) FL/AC: [id number] FL/BPD: 0.132169 HC/AC: 1.310991 GESTATIONAL AGE: Age by EDC: 21 weeks, 3 days NOY by EDC: 01/12/2022 Age by current US: 21 weeks, 1 day NOY by current US: 01/14/2022 IMPRESSION: 1. Single live intrauterine with growth detailed above. 2. Posterior, low-lying placenta. Electronically authenticated by: MARS FRANKEL Date: 2021-09-04 16:30 Normal [facility] Vital Signs Date Time Vital Sign Value Performing Clinician Facility 02-03-2024 09:23-0400 Body temperature 97.88 [degF] Siva Schulte [facility] 02-03-2024 09:23-0400 Diastolic blood pressure 70 mm[Hg] Siva Schulte [facility] 02-03-2024 09:23-0400 Heart rate 85 /min Siva Schulte [facility] 02-03-2024 09:23-0400 Respiratory rate 18 /min Siva Schulte [facility] 02-03-2024 09:23-0400 SaO2% (BldA) [Mass fraction] 99 % Siva Schulte [facility] 02-03-2024 09:23-0400 Systolic blood pressure 106 mm[Hg] Siva Schulte [facility] 09-23-2023 09:16-0400 Body temperature 98.42 [degF] Wil Chandra [facility] 09-23-2023 09:16-0400 Diastolic blood pressure 68 mm[Hg] Wil Chandra [facility] 09-23-2023 09:16-0400 Heart rate 82 /min Wil Chandra [facility] 09-23-2023 09:16-0400 Respiratory rate 18 /min Wil Chandra [facility] 09-23-2023 09:16-0400 SaO2% (BldA) [Mass fraction] 97 % Wil Chandra [facility] 09-23-2023 09:16-0400 Systolic blood pressure 98 mm[Hg] Wil Chandra [facility] 08-27-2023 12:24-0400 Diastolic blood pressure 61 mm[Hg] [facility] 08-27-2023 12:24-0400 Heart rate 77 /min [facility] 08-27-2023 12:24-0400 Mean blood pressure 72 mm[Hg] [facility] 08-27-2023 12:24-0400 Respiratory rate 16 /min [facility] 08-27-2023 12:24-0400 SaO2% (BldA) [Mass fraction] 97 % [facility] 08-27-2023 12:24-0400 Systolic blood pressure 93 mm[Hg] [facility] 08-27-2023 11:30-0400 Diastolic blood pressure 69 mm[Hg] [facility] 08-27-2023 11:30-0400 Heart rate 74 /min [facility] 08-27-2023 11:30-0400 Mean blood pressure 82 mm[Hg] [facility] 08-27-2023 11:30-0400 Respiratory rate 16 /min [facility] 08-27-2023 11:30-0400 SaO2% (BldA) [Mass fraction] 99 % [facility] 08-27-2023 11:30-0400 Systolic blood pressure 107 mm[Hg] [facility] 08-27-2023 10:30-0400 Diastolic blood pressure 62 mm[Hg] [facility] 08-27-2023 10:30-0400 Heart rate 91 /min [facility] 08-27-2023 10:30-0400 Mean blood pressure 77 mm[Hg] [facility] 08-27-2023 10:30-0400 Respiratory rate 18 /min [facility] 08-27-2023 10:30-0400 SaO2% (BldA) [Mass fraction] 100 % [facility] 08-27-2023 10:30-0400 Systolic blood pressure 107 mm[Hg] [facility] 08-27-2023 09:41-0400 Body temperature 98.6 [degF] [facility] 08-27-2023 09:41-0400 Heart rate 80 /min [facility] 01-04-2023 00:03-0400 Body temperature 98.78 [degF] Siva Schulte [facility] 01-04-2023 00:03-0400 Diastolic blood pressure 54 mm[Hg] Siva Schulte [facility] 01-04-2023 00:03-0400 Heart rate 97 /min Siva Schulte [facility] 01-04-2023 00:03-0400 Mean blood pressure 70 mm[Hg] Siva Schulte [facility] 01-04-2023 00:03-0400 Respiratory rate 18 /min Siva Schulte [facility] 01-04-2023 00:03-0400 SaO2% (BldA) [Mass fraction] 94 % Siva Schulte [facility] 01-04-2023 00:03-0400 Systolic blood pressure 102 mm[Hg] Siva Schulte [facility] 01-03-2023 23:00-0400 Body temperature 100.04 [degF] Siva Eris [facility] 01-03-2023 23:00-0400 Diastolic blood pressure 62 mm[Hg] Siva Eris [facility] 01-03-2023 23:00-0400 Heart rate 100 /min Siva Eris [facility] 01-03-2023 23:00-0400 Mean blood pressure 75 mm[Hg] Siva Eris [facility] 01-03-2023 23:00-0400 Systolic blood pressure 100 mm[Hg] Siva Schulte [facility] 01-03-2023 22:42-0400 Body temperature 100.76 [degF] Siva Schulte [facility] 01-03-2023 22:42-0400 Diastolic blood pressure 59 mm[Hg] Siva Eris [facility] 01-03-2023 22:42-0400 Heart rate 105 /min Siav Schulte [facility] 01-03-2023 22:42-0400 Respiratory rate 20 /min Siva Schulte [facility] 01-03-2023 22:42-0400 SaO2% (BldA) [Mass fraction] 99 % Siva Schulte [facility] 01-03-2023 22:42-0400 Systolic blood pressure 96 mm[Hg] Siva Schulte [facility] 10-02-2022 21:29-0400 Diastolic blood pressure 72 mm[Hg] [facility] 10-02-2022 21:29-0400 Heart rate 94 /min [facility] 10-02-2022 21:29-0400 Respiratory rate 18 /min [facility] 10-02-2022 21:29-0400 SaO2% (BldA) [Mass fraction] 98 % [facility] 10-02-2022 21:29-0400 Systolic blood pressure 141 mm[Hg] [facility] 10-02-2022 17:03-0400 Body height 170.18 cm [facility]YSICIAN [facility] 10-02-2022 17:03-0400 Body temperature 98.3 [degF] [facility] 10-02-2022 17:03-0400 Body weight 76.4 kg PHYSICIAN [facility] 09-25-2022 13:25-0400 Body height 170.18 cm Viet Yuri Other [employer] Other 09-25-2022 13:25-0400 Body mass index (BMI) [Ratio] 26.62 kg/m2 Viet Welch Other [employer] Other 09-25-2022 13:25-0400 Body temperature 98.2 [degF] Viet Welch Other [employer] Other 09-25-2022 13:25-0400 Body weight 77.11 kg Viet Welch Other [employer] Other 09-25-2022 13:25-0400 Diastolic blood pressure 68 mm[Hg] Viet Welch Other [employer] Other 09-25-2022 13:25-0400 Respiratory rate 18 /min Viet Welch Other [employer] Other 09-25-2022 13:25-0400 SaO2% (BldA) [Mass fraction] 98 % Viet Welch Other [facility] [employer] Other 09-25-2022 13:25-0400 Systolic blood pressure 107 mm[Hg] Viet Welch Other [facility] [employer] Other 09-06-2022 13:54-0400 Diastolic blood pressure 72 mm[Hg] Wil Corazon [facility] 09-06-2022 13:54-0400 Heart rate 60 /min Wil Corazon [facility] 09-06-2022 13:54-0400 Respiratory rate 16 /min Wil Corazon [facility] 09-06-2022 13:54-0400 SaO2% (BldA) [Mass fraction] 100 % Wil Corazon [facility] 09-06-2022 13:54-0400 Systolic blood pressure 103 mm[Hg] Wil Corazon [facility] 09-06-2022 11:41-0400 Diastolic blood pressure 65 mm[Hg] Wil Corazon [facility] 09-06-2022 11:41-0400 Heart rate 58 /min Wil Corazon [facility] 09-06-2022 11:41-0400 Mean blood pressure 77 mm[Hg] Wil Corazon [facility] 09-06-2022 11:41-0400 Respiratory rate 16 /min [facility] [facility] 09-06-2022 11:41-0400 SaO2% (BldA) [Mass fraction] 100 % Wil Corazon [facility] 09-06-2022 11:41-0400 Systolic blood pressure 102 mm[Hg] Wil Corazon [facility] 09-06-2022 10:42-0400 Body temperature 98.24 [degF] Wil Chandra [facility] 09-06-2022 10:42-0400 bodymassindex 1.17 Wil Chandra [facility] Comment on above: Result Comment: ^~:!ZScore [facility] 09-06-2022 10:42-0400 Diastolic blood pressure 71 mm[Hg] Wil Chandra [facility] 09-06-2022 10:42-0400 Heart rate 73 /min Wil Chandra [facility] 09-06-2022 10:42-0400 Height/Length Percentile 84.89 Wil Chandra [facility] Comment on above: Result Comment: ^~:!Percentile [facility] 09-06-2022 10:42-0400 Height/Length Z-Score 1.03 Wil Chandra [facility] Comment on above: Result Comment: ^~:!ZScore [facility] 09-06-2022 10:42-0400 Respiratory rate 16 /min Wil Chandra [facility] 09-06-2022 10:42-0400 SaO2% (BldA) [Mass fraction] 98 % Wil Chandra [facility] 09-06-2022 10:42-0400 Systolic blood pressure 111 mm[Hg] Wil Chandra [facility] 09-06-2022 10:42-0400 weight 1.47 Wil Jollye [facility] Comment on above: Result Comment: ^~:!ZScore [facility] 09-06-2022 10:42-0400 Weight Percentile 92.90 % Wil Chandra [facility] Comment on above: Result Comment: ^~:!Percentile Source -[facility] 08-14-2022 21:30-0500 Diastolic blood pressure 79 mm[Hg] Bob Llanos [facility] 08-14-2022 21:30-0500 Heart rate 87 /min Bob Llanos [facility] 08-14-2022 21:30-0500 Mean blood pressure 93 mm[Hg] Bob Llanos [facility] 08-14-2022 21:30-0500 Nursing Progress Note Reason Other: pt to [place] via stretcher at this time. Bob Llanos [facility] 08-14-2022 21:30-0500 Respiratory rate 16 /min Bob Llanos [facility] 08-14-2022 21:30-0500 SaO2% (BldA) [Mass fraction] 100 % Bob Llanos [facility] 08-14-2022 21:30-0500 Systolic blood pressure 120 mm[Hg] Bob Llanos [facility] 08-14-2022 19:20-0500 Body temperature 98.96 [degF] Bob Llanos [facility] 08-14-2022 19:20-0500 bodymassindex 1.17 Bob Llanos [facility] Comment on above: Result Comment: ^~:!ZScore Source -[facility] 08-14-2022 19:20-0500 Diastolic blood pressure 61 mm[Hg] Bob Llanos [facility] 08-14-2022 19:20-0500 Heart rate 98 /min Bob Llanos [facility] 08-14-2022 19:20-0500 Height/Length Percentile 84.91 Bob Llanos [facility] Comment on above: Result Comment: ^~:!Percentile Source -[facility] 08-14-2022 19:20-0500 Height/Length Z-Score 1.03 Bob Llanos [facility] Comment on above: Result Comment: ^~:!ZScore [facility] 08-14-2022 19:20-0500 Respiratory rate 16 /min Bob Llanos [facility] 08-14-2022 19:20-0500 SaO2% (BldA) [Mass fraction] 99 % Bob Llanos [facility] 08-14-2022 19:20-0500 Systolic blood pressure 114 mm[Hg] Bob Llanos [facility] 08-14-2022 19:20-0500 weight 1.47 Bob Llanos [facility] Comment on above: Result Comment: ^~:!ZScore [facility] 08-14-2022 19:20-0500 Weight Percentile 92.94 % Bob Llanos [facility] Comment on above: Result Comment: ^~:!Percentile Source - [employer] 06-24-2022 13:30-0500 Body height 170.18 cm Viet Welch Other [employer] Other 06-24-2022 13:30-0500 Body mass index (BMI) [Ratio] 26.62 kg/m2 Viet Welch Other [employer] Other 06-24-2022 13:30-0500 Body temperature 97.8 [degF] Viet Welch Other [employer] Other 06-24-2022 13:30-0500 Body weight 77.11 kg Viet Welch Other [employer] Other 06-24-2022 13:30-0500 Diastolic blood pressure 63 mm[Hg] Viet Welch Other [employer] Other 06-24-2022 13:30-0500 Respiratory rate 18 /min Viet Welch Other [employer] Other 06-24-2022 13:30-0500 SaO2% (BldA) [Mass fraction] 98 % Viet Welch Other [employer] Other 06-24-2022 13:30-0500 Systolic blood pressure 97 mm[Hg] Viet Welch Other [employer] Other 11-13-2021 14:05-0400 Body height 170.18 cm Michael Oneil Other [employer] Other 11-13-2021 14:05-0400 Body mass index (BMI) [Ratio] 26.62 kg/m2 Michael Oneil Other [employer] Other 11-13-2021 14:05-0400 Body temperature 98.4 [degF] Michael Oneil Other [employer] Other 11-13-2021 14:05-0400 Body weight 77.11 kg Michael Oneil Other [employer] Other 11-13-2021 14:05-0400 Respiratory rate 18 /min Michael Oneil Other [employer] Other 11-13-2021 14:05-0400 SaO2% (BldA) [Mass fraction] 98 % Michael Oneil Other [employer] Other 11-06-2021 15:45-0400 Body height Kendra Eduar Other [employer] Other 11-06-2021 15:45-0400 Body mass index (BMI) [Ratio] 26.62 kg/m2 Kendra Witt Other [employer] Other 11-06-2021 15:45-0400 Body weight 77.11 kg Kendra Witt Other [employer] Other 11-06-2021 15:45-0400 Respiratory rate 20 /min Kendra Witt Other [employer] Other 11-06-2021 15:45-0400 SaO2% (BldA) [Mass fraction] 98 % Kendra Witt Other [employer] Other Encounters Encounter Date Encounter Type Care Provider Facility Start: 02-16-2024 End: 02-16-2024 ambulatory GONSALO CORRAL Not Available Start: 02-03-2024 End: 02-03-2024 Emergency department patient visit Siva Schulte [facility] Start: 01-26-2024 End: 01-26-2024 ambulatory JUVENAL MIRI Not Available Start: 12-29-2023 End: 12-29-2023 ambulatory GONSALO ELLIS Not Available Start: 12-22-2023 End: 12-22-2023 ambulatory JUVENAL R [facility] Start: 12-01-2023 End: 12-01-2023 ambulatory JUVENAL MIRI Not Available Start: 11-10-2023 End: 11-10-2023 ambulatory JUVENAL R [facility] Start: 10-27-2023 End: 10-27-2023 ambulatory GONSALO ELLIS Not Available Start: 09-29-2023 End: 09-29-2023 ambulatory JUVENAL MIRI Not Available Start: 09-23-2023 End: 09-23-2023 Emergency department patient visit Wil Jollye [facility] Start: 09-04-2023 End: 09-04-2023 ambulatory JUVENAL MIRI Not Available Start: 08-27-2023 End: 08-27-2023 Emergency department patient visit Emily Harper [facility] Start: 08-18-2023 End: 08-18-2023 ambulatory SELAM HUNTER Facility:[facility] Start: 01-03-2023 End: 01-04-2023 Emergency department patient visit Siva Schulte [facility] Start: 12-12-2022 End: 12-12-2022 ambulatory Kenneth Lina Other [employer] Other Start: 12-12-2022 Telephone encounter Kenneth Lina [facility] Start: 10-02-2022 End: 10-02-2022 Emergency department patient visit Jose Silverman Facility:[facility] Start: 10-02-2022 End: 10-02-2022 Emergency department patient visit PHYSICIAN SJ LERNER [facility] Work Phone: Start: 09-25-2022 End: 09-25-2022 ambulatory Viet Closter Other [employer] Other Start: 09-25-2022 Office outpatient visit 15 minutes Viet Welch [facility] Start: 09-06-2022 End: 09-06-2022 Emergency department patient visit Wil Jollye [facility] Start: 08-14-2022 End: 08-14-2022 Emergency department patient visit Bob Llanos [facility] Start: 07-11-2022 End: 07-11-2022 ambulatory ROSEANN CORRAL Facility:[facility] Start: 06-24-2022 End: 06-24-2022 ambulatory Viet Welch Other [employer] Other Start: 06-24-2022 Office outpatient visit 15 minutes Viet Welch [facility] Start: 01-11-2022 End: 01-11-2022 ambulatory NONE LISTED REQUEST Facility:[facility] Start: 01-07-2022 End: 01-09-2022 Evaluation and management of inpatient DR RENATA GEORGES Facility:[facility] Start: 12-29-2021 End: 12-29-[address] JUVENAL THORPE Facility:[facility] Start: 12-19-2021 End: 12-19-[address] JUVENAL THOPRE Facility:[facility] Start: 12-12-2021 End: 12-13-2021 ambulatory JUAQUIN SEWELL [facility] Start: 12-12-2021 End: 12-12-2021 Subsequent hospital visit by physician [facility] Start: 11-27-2021 End: 11-27-[address] SOFIA KABA Facility:[facility] Start: 11-13-2021 End: 11-13-2021 ambulatory Michael Oneil Other [employer] Other Start: 11-13-2021 Office outpatient visit 15 minutes Michael Oneil [facility] Start: 11-06-2021 End: 11-06-2021 ambulatory Kendra Witt Other [employer] Other Start: 11-06-2021 Office outpatient visit 25 minutes Kendra Witt [facility] Start: 10-23-2021 End: 10-24-[address] JUVENAL [...] identified in Urine by Culture Urine Culture [facility] Start: 02-07-2022 Influenza vaccination Flu vaccine (# 1) [facility] Start: 01-09-2022 End: 01-09-2022 Patient encounter procedure 01/09/2022 Routine Perinatology [facility] Start: 01-02-2022 End: 01-02-2022 Patient encounter procedure 01/02/2022 Routine Perinatology [facility] Start: 12-26-2021 End: 12-26-2021 Patient encounter procedure 12/26/2021 Routine Perinatology [facility] Start: 12-20-2021 End: 12-20-2021 Patient encounter procedure 12/20/2021 Routine Perinatology [facility] Start: 2021 DTaP/Tdap/Td vaccine (1 - Tdap) DTaP/Tdap/Td vaccine (1 - Tdap) [facility] Start: 2020 Hepatitis C screening Hepatitis C sc haresh [facility] Start: 2018 Screening for Chlamy nazanin trachomatis Chlamydia screen [facility] Start: 2017 HIV screening HIV screen [facility] Start: 2014 [facility] Start: 2013 HPV vaccine (1 - 2-d ose series) HPV vaccine (1 - 2-dose series) [facility] Start: 09-16-2007 COVID-19 Vaccine (1) COVID-19 Vaccin e (1) [facility] [facility] Start: 09-16-2003 Varicella vaccine (1 of 2 - 2-dose childhood series) Varicella vaccine (1 of 2 - 2-dose childhood series) [facility] Patient Education Depression, Adult ED [facility] Work Phone: Patient referral [facility] Work Phone: End: 12-12-2021 Sjogrens syndrome-A extractable nuclear antibody [employer] Work Phone: Comment on above: Once for 1 Occurrenc es starting 12/12/2021 until 12/12/2021 End: 12-12-2021 Sjogrens syndrome-B extractable nuclear antibody [employer] [facility] Work Phone: Comment on above: Once for 1 Occurrenc es starting 12/12/2021 until 12/12/2021 Immunizations Immunization Date Immunization Notes Care Provider Simona galarza NEGATED: Highlighted row has not occurred!11-05-2019 influenza, injectable, quadrivalent, contains preservative Kendra Witt Other [employer] Other NEGATED: Highlighted row has not occurred!04-10-2019 influenza virus vaccine, unspecified formulation Bob Viet [facility] Payers Date Payer Category Payer Self-pay [id number] 2002 Unknown [id number] 2.16. [id number] 2002 Unknown [id number] 2.16.84 0.1.477993.3.579.2.593 2002 Unknown [id number] 2.16.84 0.1.622213.3.579.2.593 2002 Unknown [id number] 2.16.84 0.1.858345.3.579.2.593 2002 Unknown [id number] 2.16.84 0.1.923309.3.579.2.593 2002 Unknown [id number] 2.16.84 0.1.959654.3.579.2.593 2002 Unknown [id number] 2.16.84 0.1.890956.3.579.2.593 2002 Unknown [id number] 2.16.84 0.1.836163.3.579.2.593 2002 Unknown [id number] 2.16.84 0.1.514655.3.579.2.593 2002 Unknown [id number] 2.16.84 0.1.152442.3.579.2.593 2002 Unknown [id number] 2.16.84 0.1.249539.3.579.2.593 2002 Unknown [id number] 2.16.84 0.1.684848.3.579.2.593 2002 Unknown [id number] 2.16.8 40.1.238876.3.579.2.1286 2002 Unknown [id number] 2.16.8 40.1.684293.3.579.2.1286 2002 Unknown [id number] 2.16.8 40.1.322665.3.579.2.1286 2002 Unknown [id number] 2.16.8 40.1.222307.3.579.2.727 2002 Unknown [id number] 2.16.8 40.1.788486.3.579.2.727 2002 Unknown [id number] 2.16.8 40.1.718789.3.579.2.727 2002 Unknown [id number] 2.16.8 40.1.896128.3.579.2.727 2002 Unknown [id number] 2.16.8 40.1.915927.3.579.2.727 2002 Unknown [id number] 2.16.84 0.1.173346.3.579.2.1259 2002 Unknown [id number] 2.16.84 0.1.205975.3.579.2.9 2002 Unknown [id number] 2.16.84 0.1.611440.3.579.2.9 2002 Unknown [id number] 2.16.84 0.1.354979.3.579.2.9 2002 Unknown [id number] 2.16.84 0.1.723176.3.579.2.9 2002 Unknown [id number] 2.16.84 0.1.848732.3.579.2.9 2002 Unknown [id number] 2.16.84 0.1.695186.3.579.2.9 1959 Unknown [id number] 2.1 6.840.1.711047.19 1959 Unknown [id number] Unknown [id number] 2.16.8 40.1.899369.3.579.2.531 Social History Date Type Detail Facility Sex Assigned At [facility] Start: 11-28-2021 Tobacco smoking stat [facility] Never smoked tobacco [employer] Phone: Start: 11-28-2021 Tobacco use and exposure Smokeless tobacco non-user [employer] Phone: Start: 12-12-2021 Alcohol intake Ex-drinker (finding) [employer] Phone: Start: 12-12-2021 Tobacco Comment no longer vapes [employer] Phone: Start: 04-21-2021 [place] [employer] Work Phone: Start: 2002 Sex Assigned At Not on file B ON [employer] Phone: Tobacco Current vaping o r e-cigarette use Smokeless Tobacco Use:. Vaping [facility] Tobacco smoking status No Smokin g Status Entered [facility] Start: 10-02-2022 Tobacco smoking stat us NHIS Smoker (finding) [facility] Start: 2002 Sex Assigned At Female F [facility] Functional Status Date Assessment Result Facility 02-03-2024 Functional Status N/A [facility] 09-23-2023 Functional Status N/A [facility] 08-27-2023 Functional Status N/A [facility] 01-03-2023 Functional Status N/A [facility] 09-06-2022 Functional Status N/A [facility] 08-14-2022 Functional Status N/A [facility] Clinical Notes 11-06-2021 to 02-03-2024 Note Date & Type Note Facility 02-03-2024 Evaluation + Plan note Extrac ruby from: Title:ED Note Author:Duc Swanson PA-C te:02/03/24 Sore throat (J02.9: Acute ph aryngitis, unspecified) Viral URI (J06.9: Acute upper respiratory infection, unspecified) Orders: Group A Strep by PCR Rapid Strep w/rfx Diagnostic Tests Pending * Group A Strep by PCR 02/03/24 [facility] 08-27-2024 Hospital Discharge instructions Patient [...] medicines to help relieve symptoms, such as: Zpxc-kxm-cyoofjc cold medicines. Cough suppressants. Coughing is a [...] and other clear broths. General instructions Take kdrp-rua-qfnvdjm and prescription medicines only as told by [...] and water are not available, use hand size maker. Avoid touching your mouth, face, eyes, or [...] provider. Document Revised: 12/26/2021 Document Reviewed: 12/26/2021 [employer] Patient Education 2022 [employer]. Follow Up Care 02/03/2024 09:23:13 With:Juvenal THORPE Address: [address] , [place] [address]- Business (1) When:02/06/2024 11:12:27 With:SELAM HUNTER Address: [facility] [place] [address] Business (1) When:02/06/2024 11:12:21 [facility] 08-27-2024 NoteED Patient Education Note [...] to help relieve symptoms, such as: ? Oyzk-amt-lusajsk cold medicines. ? Cough suppressants. Coughing is [...] other clear broths. General instructions ? Take vvys-jdz-fzwfzwa and prescription medicines only as told by [...] soap and water are not available,use hand size maker. ? Avoid touching your mouth, face, eyes, [...] Mood. These symptoms m (more content not included)...[facility] 09-23-2023 Hospital Discharge instructions Patient [...] provider. Document Revised: 02/19/2021 Document Reviewed: 02/19/2021 [employer] Patient Education 2022 [employer]. Follow Up Care 09/23/2023 09:11:45 With:Juvenal THORPE Address: [address] [place] [address] Business (1) When:09/26/2023 11:44:07 [facility]03-20-2024 Hospital Discharge instructions Patient Education [...] provider. Document Revised: 01/09/2022 Document Reviewed: 01/09/2022 [employer] Patient Education 2022 [employer]. 08/27/2023 12:34:16 Urinary Tract Infection, Adult, Gzeg-jn-Fhct Urinary Tract Infection, Adult A urinary tract [...] Follow these instructions at home: Medicines Take vlqt-dwl-uefibya and prescription medicines only as told by [...] provider. Document Revised: 01/05/2021 Document Reviewed: 01/05/2021 [employer] Patient Education 2022 [employer]. 08/27/2023 12:34:16 Subchorionic Hematoma Subchorionic Hematoma A [...] provider. Document Revised: 02/19/2021 Document Reviewed: 02/19/2021 [employer] Patient Education 2022 [employer]. Follow Up Care 08/27/2023 09:39:16 With:Juvenal THORPE Address: [address] , [place] [address] Business (1) When:08/30/2023 12:05:10 With:SELAM HUNTER Address: [facility] [place] [address] Business (1) When:Within 3 Day(s) [facility]03-20-2024 Evaluation + Plan noteExtracted from: [...] day(s), # 28 cap(s), Refills(s) 0, Pharmacy: [facility], 170, cm, 08/27/23 9:49:00 EDT, Height/Length Dosing, 78.7, kg, 08/27/23 9:49:00 EDT, Weight Dosing ABO/Rh Basic Metabolic Panel Beta hCG Quantitative CBC w/ Auto Diff eGFR Extra Blue Tube Extra SST Tube UA with Cult Rflx Urine Culture US 1st Trimester US Transvaginal Diagnostic Tests Pending * Urine Culture 08/27/23 [facility]07-29-2023 Hospital Discharge instructions Patient Education 01/04/2023 00:13:01 Pharyngitis, Ryvy-fz-Rwnk Pharyngitis Pharyngitis is a sore throat (pharynx). [...] Follow these instructions at home: Medicines Take aewq-jqp-gezqnth and prescription medicines only as told by [...] and water are not available, use hand size maker. Do not touch your eyes, nose, or [...] provider. Document Revised: 08/22/2021 Document Reviewed: 08/22/2021 [employer] Patient Education 2022 [employer] Follow Up Care 01/03/2023 22:32:55 With:Thonyyrn Carl Address: [address] [place] [address] [address] [address] [facility] (1) When:01/06/2023 Comments:Follow-up with your primary care provider in 3 to 5 days. If symptoms worsen, do not improve, or new symptoms arise please report back to emergency department for further evaluation. [facility]07-28-2023 Evaluation + Plan noteExtracted from: [...] q12hr, # 20 cap(s), Refills(s) 0, Pharmacy: [facility], 170, cm, 01/03/23 22:44:00 EDT, Height/Length Dosing, 75.3, kg, 01/03/23 22:44:00 EDT, Weight Dosing ondansetron, 4 mg = 1 tab(s), Oral, q8hr, PRN Nausea/Vomiting, # 12 tab(s), Refills(s) 0, [facility], cm, 01/03/23 22:44:00 EDT, Height/Length Dosing, 75.3, kg, 01/03/23 22:44:00 EDT, Weight Dosing ondansetron, 12 mg = 3 tab(s), Tab-Dis, Oral, Once, Stop date 01/03/23 23:45:00 EDT, STAT, Start date 01/03/23 23:45:00 EDT, 01/03/23 23:45:00 EDT Automated Diff Basic Metabolic Panel Beta hCG Quantitative CBC w/ Auto Diff eGFR Hepatic Function Panel Lipase Level [facility]04-19-2023 Evaluation note* Encounter Date Diagnosis [...] of symptoms occur by end of treatment. [employer] Other 03-31-2023 Hospital Discharge instructions Patient Education [...] Follow these instructions at home: Medicines Take rdqm-ohg-wceolne and prescription medicines only as told by [...] important. Where to find more information [employer]: www.acog.org [place] [...] 11/19/2001 Document Revised: 09/17/2019 Document Reviewed: 07/01/2017 [employer] Patient Education 2020 [employer] Follow Up Care 09/06/2022 10:42:16 With:Juvenal THORPE Address: [address] [place] [address]- Business (1) When:09/09/2022 13:46:05 [facility]03-09-2023 Hospital Discharge instructions Patient Education 08/14/2022 22:12:46 Abdominal Pain During , Xsbd-fg-Rxhu Abdominal Pain During Belly (abdominal) pain is [...] keep your pee (urine) pale yellow. Take ryyq-iuj-wjrpwyx and prescription medicines only as told by [...] Document Reviewed: 08/28/2017 [employer] Patient Education 2020 [employer]. 08/14/2022 22:12:46 Abdominal Pain, Adult, Gvxm-vs-Kgwt Abdominal Pain, Adult Many things can cause belly (abdominal) pain. Most times, belly pain is not dangerous. Many cases of belly pain can be watched and treated at home. Sometimes, though, belly pain is serious. Your doctor will try to find the cause of your belly pain. Follow these instructions at home: Medicines Take muvp-cnv-wkhpqgz and prescription medicines only as told by [...] your belly pain for any changes. Take onyv-tss-qbtnyls and prescription medicines only as told by [...] 11/11/2008 Document Revised: 10/04/2019 Document Reviewed: 10/04/2019 [employer] Patient Education 2020 [employer]. Follow Up Care 08/14/2022 18:41:38 With:Juvenal THORPE Address: [address] , [place] [address]- Business (1) When:08/17/2022 Comments:Follow-up with Dr. Thorpe for further evaluation of your . With:Juventino Carbajal Address: [address] [place] [address]- When:08/17/2022 Comments:Follow-up with your primary care provider in 3 to 5 days. If symptoms worsen, do not improve, or new symptoms arise please report back to emergency department for further evaluation. [facility]01-16-2023 Evaluation note* Encounter Date Diagnosis [...] return precautions. Jun, Cough (ICD-10 - R05.9) [employer] Other 06-07-2022 Evaluation note* Encounter Date Diagnosis [...] Pt understood and agreed to tx plan. [employer] Other [id number] Evaluation note* Encounter Date Diagnosis Assessment Notes [...] condition October, Sore throat (ICD-10 - J02.9) Kerrick Panzura Other Evaluation + Plan note No data available for this section [facility] information available [facility] Work Phone: Evaluation noteNo InformationNort Panzura Other History general Narrative - Reported* Type Description Date Medical History fx lt elbow at age 7 Surgical History surgical repair of left elbow f racture at age 7 Hospitalization History see surgical hx [employer] Other Progress note No data available for this section [facility] Summary Purpose Family History No [...] content) DATE CREATED AUTHOR 01/05/2022 [facility] DATE CREATED AUTHOR AUTHOR'S ORGANIZ ATION 07/15/2022 [facility] DATE CREATED AUTHOR AUTHOR'S ORGANIZ ATION 10/10/2022 [facility] DATE CREATED AUTHOR AUTHOR'S ORGANIZ ATION 12/26/2023 [facility] DATE CREATED AUTHOR AUTHOR'S ORGANIZ ATION 02/05/2024 [place] DATE CREATED AUTHOR AUTHOR'S ORGANIZ ATION 02/06/2024 [place] DATE CREATED AUTHOR AUTHOR'S ORGANIZ ATION 02/17/2024 [facility] [employer] Care Teams (unrecognized sec tion and content) Personnel Name: SELAM HUNTER CNP Address: Address: [address] [place] [address] Team Status: Active Member Role Status Dates [...] BE BASED ON THE PRIMARY CLINICAL RECORDS. [employer] [facility]. provides no warranty or guarantee of the accuracy or completeness of information in this document.
[2024-03-01 13:30] VITALS: BP 98/54; PULSE 67
== END 2024-03-01 14:04 | disposition home or self-care (01) ==
LOC: US 07:04 → FBC 12:50
PROVIDERS: Visit Provider Obstetrics & Gynecology
DX: O43.113 Circumvallate placenta, third trimester (principal); Z3A.33 33 weeks gestation of pregnancy
CPT/HCPCS: 76818; 76820

== ENCOUNTER 2024-03-04 07:00 | Outpatient (OUT) | payer OTHER, SELFPAY ==
--- OUTSIDE RECORDS SUMMARY | 2024-03-04 07:04 | XMS_ITS | CCD ---
Author Organization [facility] Inform ion [facility] Care Team Providers Care Correction Officer Reformatory Name Role Phone Kendra Witt Unavailable Michael [...] Unavaila ble MIRI, DR NEAL Attending Unavailable MIIR, DR NAEL Admitting Unavailable ROSEANN CORRAL Consulting Unavailable REQUEST, NONE LISTED Primary Care Unavaila ROSEANN Wilson Attending Unavailable ROSEANN CORRAL Admitting Unavailable KARASIK, DR YANEZ Consulting Unavailable MISC, DR SANDOVAL Primary Care Unavailable KARASIK, DR YANEZ Attending Unavailable KARASIK, DR YANEZ Admitting Unavailable ZIEBER, DR MARS Mccarthy Consulting Unavailable COLMESNEIL, DR SOFIA Hull Consulting Unavailable REQUEST, NONE [...] [facility] Emergency Provider Jose Silverman Attending Unavailable Joes Silverman Admitting Unavailable NO FAMILY, PHYSICIAN Primary [...] CORRAL Attending Unavailable JUVENAL THORPE Attending Unavailable Allergies Allergy Classification Reported Allergen(s) Allergy Type Date of Onset Reaction(s) Facility (1 source) No Known Medication Allergies; Translations: [No Known Medication Allergies] Propensity to adverse reactions (disorder) [facility] Repository Medications Current Medications Medication Drug Class(es) [...] day(s), # 28 cap(s), Refills(s) 0, Pharmacy: [facility], 170, cm, 08/27/23 9:49:00 EDT, Height/Length Dosing, 78.7, kg, 08/27/23 9:49:00 EDT, Weight Dosing Start Date: 08/27/23 Stop Date: 09/03/23 Status: Ordered Start: 01-03-2023 take 1 capsule by [facility] every twelve hours Keflex 500 mg Cap 500 mg = 1 cap(s), Oral, q12hr, # 20 cap(s), Refills(s) 0, Pharmacy: [facility], 170, cm, 01/03/23 22:44:00 EDT, Height/Length Dosing, 75.3, kg, 01/03/23 22:44:00 EDT, Weight Dosing Start Date: 01/03/23 Status: Ordered Citalopram (2 sources) Serotonin Reuptake Inhibitor Citalopram Hydrobromide Active dexamethasone 1 mg/ml / neomycin 3.5 mg/ml / polymyxin b 60843 unt/ml ophthalmic suspension (2 sources) Aminoglycoside Antibacterial, Polymyxin-class Antibacterial, Corticosteroid Start: 09-26-19 take 1 drop(s) into the eye(s) four times daily Maxitrol 3.5-52038-9.1 1 drop into affected eye Ophthalmic Four [...] 3 hrs for 2 days Jun, Active [place] (No Known Home Meds) (1 source) Start: 06-26-2021 [place] (No Known Home Meds) Active June 26, [...] Nausea/Vomiting, # 12 tab(s), Refills(s) 0, Pharmacy: [facility], 170, cm, 01/03/23 22:44:00 EDT, Height/Length Dosing, 75.3, kg, 01/03/23 22:44:00 EDT, Weight Dosing Start Date: 01/03/23 Status: Ordered Start: 06-09-2019 take 1 tablet by faby th three times daily Zofran ODT 4 mg Tab-Dis 4 mg = 1 tab(s), Oral, TID, # 15 tab(s), Refills(s) 0, Pharmacy: [facility] Start Date: 06/09/19 Status: [...] take 450 mg by mouth twice daily [place] Carbonate Discontinued 450 MG PO Twice daily [...] Grp A Strp Intrl Ctrl Pass Normal [facility] Comment on above: Order Comment: Order Added on by Discern Rule. Performed By: #### 1 [id number] #### [facility] Laboratory [address] [place] [address] S. pyogenes DNA ALFREDO+probe Ql (Throat) Negative Normal [facility] Comment on above: Order Comment: Order Added on by Discern Rule. Result Comment: Test ing performed using DNA amplification. Performed By: #### 1 [id number] #### [facility] Laboratory [address] [place] [address] ED Clinical Summaryon 2023 ED Clinical Summary ED Clinical Summary [address] [address] ED Clinical Summary Person Information Name: KAILYN ACKERAMN Heena/[facility] Age: 23 Years : 2000 Sex: Female Language: Panamanian PCP: SELAM HUNTER CNP Marital Status: Single Phone: [phone] Visit Id: Visit Reason: Headache; Body aches; [...] 02/03/2024 11:17:23 02/03/2024 11:17:23 02/03/2024 11:17:23 ADDRESS: [address] [place] [phone] PHYS DOC NOTES: MEDICAL INFORMATION: Prescriptions Given: [...] Adult Follow up: With: Address: [facility] [address] [place] [address] [place] [address] Business (1) In 3 days 02/06/2024 With: Address: When: [place] [address] Business (1) In 3 days 02/06/2024 DIAGNOSIS: Sore throat; Viral URI Normal [facility] ED Note-Physicianon 02-03-20 ED Note-Physician ED Note-Physician [...] URI and will continue to follow-up with JIGSAWYER for further evaluation and management. We discussed [...] days 02/06/2024 (more content not included)... Normal [facility] Comment on above: Result Comment: Elec tronically Signed By: Duc Swanson PA-C\.br\Date and Time Signed: 02/03/24 13:23 EDT\.br\Electronically Co-Signed By: Siva Schulte DO\.br\Date and Time Co-Signed: 02/03/24 14:44 EDT ED Patient Summaryon 024 ED Patient Summary ED Patient Summary [place] [id number] Patient Discharge Instructions Person Information Name: GARCÍA ACKERMANNZIClement Gordon Age: 23 Years Arrival Date: 02/03/2024 09:21:41 Discharge Diagnosis: Sore throat; Viral URI Primary Care Physician: SELAM HUNTER CNP Provider Information Primary Provider: Siva Schulte DO Advanced Channel Development Manager:Duc Swanson PA-C The exam and treatment you received in the Emergency Department were for an urgent problem and are not intended as complete care. It is important that you follow up with a doctor, nurse practitioner, or physician?s middle school assistant principal for ongoing care. If your symptoms become worse or you do not improve as expected and you are unable to reach your usual health care provider, you should return to the Emergency Department. We are available 24 hours a day. KAILYN ACKERMAN has been given the following list of patient education materials, prescriptions and follow-up instructions: Follow-up Instructions: With: Address: When: Juvenal THORPE [facility], [address] [place] [address] [place] [address] Business (1) In 3 days 02/06/2024 With: Address: When: [place] [address] Business (1) In 3 days 02/06/2024 In the event that this physician does not participate in your insurance network, please consult with your insurance company to find a nearby participating provider. Patient Education Materials: Upper Respiratory Infection, Adult A MESSAGE TO ALL PATIENTS REGARDING OPIOIDS PRESCRIPTION OPIOIDS: WHAT YOU NEED TO KNOW Prescription opioids can be used to help relieve yzglyusg-lp-dpakrd pain and are often prescribed following a [...] of op (more content not included)... Normal [facility] MICRO OTHER TESTSOrdered By: Nita Delgadillo on 02-03-2024 S. pyogenes Ag IA.rapid Ql (Throat) Negative (02/03/24 11:07 AM) Normal Negative [facility] Man Sero MICRO OTHER TESTSOrdered By: Asuncion Goncalves on 02-03-2024 Rapid COV Int NEG Ctl Pass (02/03/24 9:30 AM) Normal [facility] Man Sero Rapid COV Int POS Ctl Pass (02/03/24 9:30 AM) Normal [facility] Sero SARS-CoV+SARS-CoV-2 (COVID-19) Ag IA.rapid Ql (Resp) Not Detected 1 (02/03/24 9:30 AM) Normal Not Detected [facility] Man Sero Comment on above: Interpretive Data: [employer] Veritor System for Rapid Detection of SARS-CoV-2 [...] COV Int NEG Ctl Pass Normal Fis [facility] Comment on above: Performed By: #### 2 [id number] #### [facility] Laboratory [address] [place] [address] Rapid COV Int POS Ctl Pass Normal [facility] Comment on above: Performed By: #### 2 [id number] #### [facility] Laboratory [address] [place] [address] SARS-CoV+SARS-CoV-2 (COVID-19) Ag IA.rapid Ql (Resp) Not detected Normal Not Detected [facility] Comment on above: Result Comment: The [employer]? System for Rapid Detection of SARS-CoV-2 is [...] or revoked sooner. Performed By: #### 2 [id number] #### [facility] Laboratory [address] [place] [address] Rapid Strep w/rfxon 02-03-20 24 S. pyogenes Ag IA.rapid Ql (Throat) Negative Normal Negative [facility] Comment on above: Performed By: #### 2 [id number] #### [facility] Laboratory [address] [place] [address] ED Note-Physicianon 09-26-19 24 ED Note-Physician Basic [...] than 90,000. Ultrasound was obtained discussed with respiratory technician. Intrauterine consistent with stated gestational age. Stable heart rate. Patient continues to demonstrate subchorionic hematoma. Also left-sided ovarian cyst similar to previous. Results were discussed with the patient. She is discharged home to continue pelvic rest and follow-up with JIGSAWYER. Patient was encouraged to return to the [...] Juvenal THORPE In 3 days 09/26/2023 EDT [facility] [address] [facility] [place] [address]- Business (1) Additional Instructions: Patient Education Subchorionic [...] made to ensure accuracy, however, inadvertently computerized site reliability engineer mistakes may be present. Appropriate healthcare PPE [...] Yes., 04/10/2019 Lab Results Beta hCG Qnt: 67410 mIU/mL High (09/23/23 09:28:00) Diagnostic Results No qualifying data available. Normal [facility] Comment on above: Result Comment: Elec tronically Signed By: Mandie CHUNG, Venkat\.br\Date and Time Signed: 09/23/23 11:45 EDT\.br\Electronically Co-Signed By: Wil Chandra DO\.br\Date and Time Co-Signed: 09/26/23 07:37 EDT [facility] Quant[place] 09-23-2023 [place] [address] m[IU]/mL High 1-3 F [facility] Comment on above: Result Comment: 'F N ON < 1 - 3' ' 0.2 - 1 WEEK = 5 TO 50' ' 1 - 2 WEEKS = 50 - 500' ' 2 - 3 WEEKS = 100 - 5000' ' 3 - 4 WEEKS = 500 - 22844' ' 4 - 5 WEEKS = 1000 - 48232' ' 5 - 6 WEEKS = 24571 - 570556' ' 6 - 8 WEEKS = 70800 - 384050' ' 8 - 12 WEEKS = 13881 - 374965' Performed By: #### 2 [id number] ####[facility] [address] [place] [address] CHEMISTRYOrdered By: SYSTEM SYSTEM on 09-23-2023 [place] [address] m[IU]/mL High 1 - 3 mIU/mL [facility] Comment on above: Result Comment: 'F N ON < 1 - 3' ' 0.2 - 1 WEEK = 5 TO 50' ' 1 - 2 WEEKS = 50 - 500' ' 2 - 3 WEEKS = 100 - 5000' ' 3 - 4 WEEKS = 500 - 20823' ' 4 - 5 WEEKS = 1000 - 56921' ' 5 - 6 WEEKS = 91978 - 555838' ' 6 - 8 WEEKS = 51839 - 521054' ' 8 - 12 WEEKS = 78780 - 767977' Consent for Treatmenton 09-07 Consent for Treatment [id number]#1.00TIFF Normal [facility] Discharge Instructionson Discharge Instructions [id number]#[id number] Normal [facility] ED Clinical Summaryon 2023 ED Clinical Summary [address] [address] ED Clinical Summary Person Information Name: KAILYN ACKERMAN Heena/[facility] Age: 23 Years : 2000 Sex: Female Language: Panamanian PCP: NONE, XXXX Marital Status: Single Phone: [phone] MRN: Visit Id: Visit Reason: Back pain; [...] 09/23/2023 11:52:16 09/23/2023 11:52:16 09/23/2023 11:52:16 ADDRESS: [address] [place] [phone] PHYS DOC NOTES: MEDICAL INFORMATION: Prescriptions Given: [...] Follow up: With: Address: When: Juvenal THORPE [facility], [address] [place] [address] [place] [address] Business (1) In 3 days 09/26/2023 DIAGNOSIS: Other antepartum hemorrhage, unspecified trimester; Subchorionic bleed; Vaginal bleeding in Normal [facility] ED Patient Education Noteon 09-23-2023 ED Patient [...] provider. Document Revised: 02/19/2021 Document Reviewed: 02/19/2021 [employer] Patient Education ? 2022 [employer]. Normal [facility] ED Patient Summaryon 024 ED Patient Summary [place] [address] Patient Discharge Instructions Person Information Name: KAILYN ACKERMAN Age: 23 Years Arrival Date: 09/23/2023 09:10:07 Discharge Diagnosis: Other antepartum hemorrhage, unspecified trimester; Subchorionic bleed; Vaginal bleeding in Primary Care Physician: NONE, XXXX Provider Information Primary Provider: Wil Chandra DO Advanced Channel Development Manager:Venkat Leal PA-C The exam and treatment you received in the Emergency Department were for an urgent problem and are not intended as complete care. It is important that you follow up with a doctor, nurse practitioner, or physician?s middle school assistant principal for ongoing care. If your symptoms become worse or you do not improve as expected and you are unable to reach your usual health care provider, you should return to the Emergency Department. We are available 24 hours a day. KAILYN ACKERMAN has been given the following list of patient education materials, prescriptions and follow-up instructions: Follow-up Instructions: With: Address: When: Juvenal THORPE [facility], [address] [place] [address] [place] [address] Business (1) In 3 days 09/26/2023 In the event that this physician does not participate in your insurance network, please consult with your insurance company to find a nearby participating provider. Patient Education Materials: Subchorionic Hematoma A MESSAGE TO ALL PATIENTS REGARDING OPIOIDS PRESCRIPTION OPIOIDS: WHAT YOU NEED TO KNOW Prescription opioids can be used to help relieve sfrcarkw-ji-gkuptp pain and are often prescribed following a [...] health care p (more content not included)... [facility] Prescriptions/Work Noteson 0 09-23-2023 Prescriptions/Work Notes [id number]#[id number] [facility] US 1st Trimesteron 09-23-2023 1st Trimester Exam [...] least 66% of the gestational sac circumference. [place] Rump Length: 3.2 cm, which corresponds Composite [...] Size = Dates Uterus Position Anteverted Normal [facility] C Urineon 08-29-2023 Bacteria identified Cx Nom [...] Locations R1: This test was performed at: [facility], [address] [place] [address], [address] , , Normal [facility] Comment on above: Performed By: #### 4 [id number] ####[address] [address] ABO/Rhon 08-27-2023 ABO/Rh Positive Invalid Interpretation Code [facility] Comment on above: Performed By: #### 2 [id number] ####[facility] [address] [place] [address] BLOOD BANKOrdered By: Liza Xavier on 08-27-2023 ABO/Rh Interp Positive Invalid Interpretation Code [facility] BB Subsection BMPon 08-27-2023 Anion gap [Moles/Vol] 11 mmol/L Normal 6-16 [facility] Comment on above: Performed By: #### 1 [id number], [id number], [id number] ####[facility] [address] [place] [address] Calcium [Mass/Vol] 9.3 mg/dL Normal 8.9-11.1 [facility] Comment on above: Performed By: #### 1 [id number], 0772383, [id number] ####[facility] [address] [place] [address] Chloride [Moles/Vol] 104 mmol/L Normal 101-111 [facility] Comment on above: Performed By: #### 1 1339315, 7168836, 2777791 ####[facility] [address] [place] [address] CO2 [Moles/Vol] 24 mmol/L Normal 21-31 [facility] Comment on above: Performed By: #### 1 [id number], 0591378, 8535911 ####[facility] [address] [place] [address] Creatinine [Mass/Vol] 0.6 mg/dL Normal 0.5-1.3 [facility] Comment on above: Performed By: #### 1 [id number], 6985648, 1740950 ####[facility] [address] [place] [address] Glucose [Mass/Vol] 87 mg/dL Normal 55-199 [facility] Comment on above: Performed By: #### 1 [id number], 7759108, 3628243 ####[facility] [address] [place] [address] Potassium [Moles/Vol] 3.7 mmol/L Normal 3.5-5.3 [facility] Comment on above: Performed By: #### 1 2303612, 0496792, 2486063 ####[facility] [address] [place] [address] Sodium [Moles/Vol] 135 mmol/L Normal 135-145 [facility] Comment on above: Performed By: #### 1 3441481, 9521069, 9087753 ####[facility] [address] [place] [address] Urea nitrogen [Mass/Vol] 8 mg/dL Normal 5-21 [facility] Comment on above: Performed By: #### 1 4704846, 4511330, 7190243 ####[facility] [address] [place] [address] Urea nitrogen/Creatinine [Mass ratio] 13 No Units Normal 10-20 [facility] Comment on above: Performed By: #### 1 [id number], 0024425, 9030069 ####[address] [address] [facility] Quanton 08-27-2023 [place] [address] m[IU]/mL High 1-3 F [facility] Comment on above: Result Comment: 'F N ON < 1 - 3' ' 0.2 - 1 WEEK = 5 TO 50' ' 1 - 2 WEEKS = 50 - 500' ' 2 - 3 WEEKS = 100 - 5000' ' 3 - 4 WEEKS = 500 - 44725' ' 4 - 5 WEEKS = 1000 - 57780' ' 5 - 6 WEEKS = 58978 - 157632' ' 6 - 8 WEEKS = 00074 - 279866' ' 8 - 12 WEEKS = 28375 - 389921' Performed By: #### 2 [id number] ####[facility] [address] [place] [address] CBC w/ Auto Diffon 4 Basophils/100 WBC (Bld) 0.6 % Normal 0.0-2.0 F [facility] Comment on above: Performed By: #### 1 [id number], 6158662, 4910543 ####[facility] [address] [place] [address] Basophils/Leukocytes Auto (Bld) [Pure # fraction] 0.0 E9/L Normal 0.0-0.2 [facility] Comment on above: Performed By: #### 1 6363464, 7022574, 5014768 ####[address] [address] Eosinophils (Bld) [#/Vol] 0.1 E9/L Normal 0.0-0.5 [facility] Comment on above: Performed By: #### 1 8560105, 9217435, 8016057 ####[address] [address] Eosinophils/100 WBC (Bld) 2.0 % Normal 0.0-8.0 [facility] Comment on above: Performed By: #### 1 4068549, 0791771, 8509179 ####[address] [address] Erythrocyte distribution width (RBC) [Ratio] 15.0 % High 10.9-14.2 [facility] Comment on above: Performed By: #### 1 3857753, 8817283, 7298912 ####[address] [address] Hematocrit (Bld) [Volume fraction] 37.4 % Normal 34.0-46.0 [facility] Comment on above: Performed By: #### 1 1756807, 6806475, 2893324 ####[address] [address] Hemoglobin (Bld) [Mass/Vol] 12.7 g/dL Normal 12.0-16.0 [facility] Comment on above: Performed By: #### 1 8093522, 6539810, 7269961 ####[address] [address] Lymphocytes (Bld) [#/Vol] 2.0 E9/L Normal 1.0-4.0 [facility] Comment on above: Performed By: #### 1 4292653, 0777695, 3847050 ####[address] [address] Lymphocytes/100 WBC (Bld) 28.1 % Normal 14.0-50.0 [facility] Comment on above: Performed By: #### 1 4797559, 2324445, 6292476 ####[address] [address] MCH (RBC) [Entitic mass] 28.4 pg Normal 27.0-34.0 [facility] Comment on above: Performed By: #### 1 1791286, 7478213, 5419864 ####[address] [address] MCHC (RBC) [Mass/Vol] 33.8 g/dL Normal 31.4-36.0 [facility] Comment on above: Performed By: #### 1 2479805, 6077254, 8483202 ####[address] [address] MCV (RBC) [Entitic vol] 84.0 fL Normal 80.0-100.0 [facility] Comment on above: Performed By: #### 1 3780880, 9349932, 6223078 ####[place] [address]057 Monocytes (Bld) [#/Vol] 0.5 E9/L Normal 0.2-1.0 F [facility] Comment on above: Performed By: #### 1 8396758, 4522081, 6427432 ####[address] [address] Neutrophils (Bld) [#/Vol] 4.5 E9/L Normal 2.0-7.5 [facility] Comment on above: Performed By: #### 1 5551466, 6116557, 1731334 ####[address] [address] Neutrophils/100 WBC (Bld) 61.9 % Normal 36.0-75.0 [facility] Comment on above: Performed By: #### 1 4802093, 7827560, 2007722 ####[place] [address] [place] [address] Platelet mean volume (Bld) [Entitic vol] 7.9 fL Normal 6.4-10.8 [facility] Comment on above: Performed By: #### 1 7092987, 2270664, 1534549 ####[address] [address] Platelets (Bld) [#/Vol] 252.0 E9/L Normal 150.0-500.0 [facility] Comment on above: Performed By: #### 1 7740338, 2235212, 1400577 ####[place] [address] [place] [address] RBC (Bld) [#/Vol] 4.5 E12/L Normal 4.3-5.9 [facility] Comment on above: Performed By: #### 1 1063162, 3232067, 5124329 ####[address] [address] WBC corrected for nucl RBC Auto (Bld) [#/Vol] 7.2 E9/L Normal 4.0-11.0 [facility] Comment on above: Performed By: #### 1 4494691, 8229143, 0962615 ####[facility] [address] [place] [address] CHEMISTRYOrdered By: SYSTEM SYSTEM on 08-27-2023 Anion [...] 199 mg/[place] [address] m[IU]/mL High 1 - 3 mIU/mL [facility] Comment on above: Result Comment: 'F N ON < 1 - 3' ' 0.2 - 1 WEEK = 5 TO 50' ' 1 - 2 WEEKS = 50 - 500' ' 2 - 3 WEEKS = 100 - 5000' ' 3 - 4 WEEKS = 500 - 83559' ' 4 - 5 WEEKS = 1000 - 84913' ' 5 - 6 WEEKS = 07208 - 701686' ' 6 - 8 WEEKS = 47009 - 748066' ' 8 - 12 WEEKS = 344[address] - 257517' Potassium [Moles/Vol] 3.7 mmol/L Normal 3.5 - 5.3 mmol/L [facility] Sodium [Moles/Vol] 135 mmol/L Normal 135 - 145 mmol/L [facility] Urea nitrogen [Mass/Vol] 8 mg/dL Normal 5 - 21 mg/d L [facility] Urea nitrogen/Creatinine [Mass ratio] 13 mg/mg Normal 10 - 20 Remisol Chem Consent for Treatmenton 08-08 Consent for Treatment [id number] Normal [facility] Discharge Instructionson Discharge Instructions [id number] Normal [facility] ED Clinical Summaryon 2023 ED Clinical Summary [place] [id number] ED Clinical Summary Person Information Name: KAILYN ACKERMAN Heena/The [facility] Age: 22 Years : 2000 Sex: Female Language: Panamanian PCP: SELAM HUNTER CNP Marital Status: Single Phone: [phone] MRN: Visit Id: Visit Reason: Vaginal bleeding [...] 08/27/2023 12:34:16 08/27/2023 12:34:16 08/27/2023 12:34:16 ADDRESS: [address] [place] [id number] PHYS DOC NOTES: MEDICAL INFORMATION: Prescriptions Given: Medications to Continue Taking That Have Changed [facility], [address] [place], [place] [id number], [phone] START: cephalexin (Keflex 500 mg Cap) 1 [...] Urinary Tract Infection; Urinary Tract Infection, Adult, Hxeu-la-Vkpz; Subchorionic Hematoma Follow up: With: Address: When: Juvenal THORPE [facility], [address] [place] [address] [address] [place], [place] [phone] Business (1) In 3 days 08/30/2023 With: Address: When: SELAM HUNTER [address] [place] [address] Business (1) In 3 days DIAGNOSIS: Other antepartum hemorrhage, unspecified trimester; Subchorionic bleed; UTI (urinary tract infection) during ; Vaginal bleeding in Normal [facility] ED Note-Physicianon 08-27-19 ED Note-Physician Basic Information [...] day(s), # 28 cap(s), Refills(s) 0, Pharmacy: [facility], 170, cm, 08/27/23 9:49:00 EDT, Height/Length [...] Juvenal THORPE In 3 days 08/30/2023 EDT [facility] [address] [facility] , [place] [address]- Business (1) Additional Instructions: SELAM HUNTER In 3 days [address] [place] [address]- Business (1) Additional Instructions: Patient Education and Urinary Tract Infection Urinary Tract Infection, Adult, Nomu-ao-Ahdv Subchorionic Hematoma Attestation Patient seen and evaluated by the physician middle school assistant principal. Attending physician was present in the emergency department and s (more content not included)... Normal [facility] Comment on above: Result Comment: Elec tronically [...] provider. Document Revised: 01/09/2022 Document Reviewed: 01/09/2022 ReferralMD Patient Education ? 2022 [employer]. Urinary Tract Infection, Adult A urinary tract [...] swelling (inflammation) (more content not included)... Normal [facility] ED Patient Summaryon 024 ED Patient Summary [place] [id number] Patient Discharge Instructions Person Information Name: KAILYN ACKERMAN Age: 22 Years Arrival Date: 08/27/2023 09:37:12 Discharge Diagnosis: Other antepartum hemorrhage, unspecified trimester; Subchorionic bleed; UTI (urinary tract infection) during ; Vaginal bleeding in Primary Care Physician: SELAM HUNTER CNP Provider Information Primary Provider: Emily Harper M.D. Advanced Channel Development Manager:None The exam and treatment you received in the Emergency Department were for an urgent problem and are not intended as complete care. It is important that you follow up with a doctor, nurse practitioner, or physician?s middle school assistant principal for ongoing care. If your symptoms become worse or you do not improve as expected and you are unable to reach your usual health care provider, you should return to the Emergency Department. We are available 24 hours a day. KAILYN ACKERMAN has been given the following list of patient education materials, prescriptions and follow-up instructions: Follow-up Instructions: With: [facility]: [facility] [address] [place] [address] [place] [phone] Business (1) In 3 days 08/30/2023 With: Address: When: SELAM HUNTER [address] [place] [address] [place] [place] [phone] Business (1) In 3 days In the event that this physician does not participate in your insurance network, please consult with your insurance company to find a nearby participating provider. Patient Education Materials: and Urinary Tract Infection; Urinary Tract Infection, Adult, Rjdf-uo-Izya; Subchorionic Hematoma A MESSAGE TO ALL PATIENTS REGARDING OPIOIDS PRESCRIPTION OPIOIDS: WHAT YOU NEED TO KNOW Prescription opioids can be used to help relieve zdhcvfsk-vm-zcrrom pain and are often prescribed following a [...] toilet, follo (more content not included)... Normal [facility] HEMATOLOGYOrdered By: SYSTEM SYSTEM on 08-27-2023 Basophils/100 [...] 08-27-19 24 Color (U) Light-Yellow Normal Yellow [facility] Comment on above: Result Comment: Micr oscopic readings are only performed on those samples that meet specific criteria set forth by [facility] Laboratory. Performed By: #### 4 [id number], [id number] ####[facility] [address] [place] [address] Glucose (U) [Mass/Vol] Negative Normal Negative [facility] Comment on above: Performed By: #### 4 [id number], [id number] ####[facility] [address] [place] [address] Ketones Ql (U) Negative Normal Negative [facility] Comment on above: Performed By: #### 4 [id number], [id number] ####[facility] [address] [place] [address] UA Blood 3+ Abnormal Negative [facility] Comment on above: Performed By: #### 4 [id number], [id number] ####[facility] [address] [place] [address] UA Bacteria 1+ [id number] Abnormal Trace [facility] Comment on above: Performed By: #### 4 [id number], [id number] ####[facility] [address] [place] [address] UA Clarity Turbid Abnormal Clear [facility] Comment on above: Performed By: #### 4 [id number], [id number] ####[facility] [address] [place] [address] UA Hyal Cast 0-3 Normal 0-3 [facility] Comment on above: Performed By: #### 4 [id number], [id number] ####[facility] [address] [place] [address] UA Leuk Est 250 Stefania/uL Abnormal Negative [facility] Comment on above: Performed By: #### 4 [id number], [id number] ####[facility] [address] [place] [address] UA Mucous Trace Normal Negative [facility] Comment on above: Performed By: #### 4 [id number], [id number] ####[facility] [address] [place] [address] UA Nitrite Negative Normal Negative [facility] Comment on above: Performed By: #### 4 [id number], [id number] ####[facility] [address] [place] [address] UA pH 5.5 Invalid Interpretation Code 5.0-9.0 [facility] Comment on above: Performed By: #### 4 [id number], [id number] ####[facility] [address] [place] [address] UA Protein 1+ mg/dL Abnormal Negative [facility] Comment on above: Performed By: #### 4 [id number], [id number] ####[facility] [address] [place] [address] UA RBC 4-20 Abnormal 0-3 [facility] Comment on above: Performed By: #### 4 [id number], [id number] ####[facility] [address] [place] [address] UA Spec Grav 1.018 Invalid Interpretation Code 1.005-1.030 [facility] Comment on above: Performed By: #### 4 [id number], [id number] ####[facility] [address] [facility] [place] [address] UA Squam Epithelial 3-4 Abnormal 0-2 Fishe r [facility] Comment on above: Performed By: #### 4 [id number], [id number] ####[facility] [address] [place] [address] UA Urobilinogen Negative Normal Negative [facility] Comment on above: Performed By: #### 4 [id number], [id number] ####[facility] [address] [place] [address] UA WBC 6-15 Abnormal 0-5 [facility] Comment on above: Performed By: #### 4 [id number], [id number] ####[facility] [address] [place] [address] Urobilinogen (U) [Mass/Vol] Negative Normal Negative [facility] Comment on above: Performed By: #### 4 [id number], [id number] ####[facility] [address] [place] [address] UA Spec Desc Clean Catch Normal [facility] Comment on above: Performed By: #### 4 [id number], [id number] ####[facility] [address] [place] [address] URINALYSISOrdered By: SYSTEM SYSTEM on 08-27-2023 Color (U) Light-Yellow 1 (08/27/23 9:55 AM) Normal Yellow [facility] UA Auto SS Comment on above: Interpretive Data: M icroscopic readings are only performed on those samples that meet specific criteria set forth by [facility] Laboratory. Glucose (U) [Mass/Vol] Negative Normal Negat [...] Reason for Exam: Other (please specify) Report [facility] [phone] IMPRESSION: Single live intrauterine with estimated sonographic [...] heart rate is measured at 120 bpm. [place]-rump length 4.77 mm. Estimated sonographic gestational age [...] Transvaginal Ultrasound Performed FHR (bpm) 120 Normal [facility] US Transvaginalon 08-27-2023 US Transvaginal Exam Date/Time: 08/27/2023 11:55 EDT Reason for Exam: Other (please specify) Report [facility] [phone] Please see ultrasound pelvis, for report of transvaginal examination. Ordering Provider: Hudson Riley FINAL REPORT Dictated: 08/27/2023 12:33 pm Zach Deng MD Signed (Electronic Signature): 08/27/2023 12:33 pm Signed by: Zach Deng MD Transcribed by: KIRK Technologist: SHELLEY Normal [facility] eGFRon 08-27-2023 eGFR 131 mL/min/1.73 m2 Normal >=59 [facility] Comment on above: Order Comment: Order added by Discern Expert. Performed By: #### 1 [id number], [id number], [id number] ####[facility] [address] [place] [address] [facility] Quanton 08-19-2023 HCG.beta subunit Qn 4261 m[IU]/mL High 1-3 Fi [facility] Comment on above: Result Comment: 'F N ON < 1 - 3' ' 0.2 - 1 WEEK = 5 TO 50' ' 1 - 2 WEEKS = 50 - 500' ' 2 - 3 WEEKS = 100 - 5000' ' 3 - 4 WEEKS = 500 - 74629' ' 4 - 5 WEEKS = 1000 - 63478' ' 5 - 6 WEEKS = 93470 - 824312' ' 6 - 8 WEEKS = [address]4057 - 367360' ' 8 - 12 WEEKS = 97389 - 686279' Performed By: #### 2 [id number] ####[facility] [address] [place] [address] Physician Orderon 08-19-2023 Physician Order [id number] Normal [facility] CHEMISTRYOrdered By: Juancho benitez on 01-03-2023 Albumin [...] 108 mL/min/1.73 m2 Normal >=59mL/min/1 .73 m2 [facility] Chem S HCG.beta subunit Qn 1572 m[IU]/mL [...] 16.9 E9/L High 4.0 - 11.0 E9/L [facility] HemeAutoSS Laboratory - Microbiology an d Antimicrobial susceptibilityOrdered By: Asuncion Goncalves on 01-03-2023 Bacteria identified Cx Nom (U) No growth to date Continuing incubation [facility] MICRO OTHER TESTSOrdered By: Juancho Fitch on [...] Interpretation Code Negative [facility] UA Auto SS [place].plasma/[place].R BC (Bld) [Mass ratio] 0-3 /HPF Normal 0-3/HPF [facility] UA Au to SS Nitrite Ql (U) Negative (01/03/23 10:52 PM) Normal Negative [facility] UA Auto SS pH (U) 6.5 *NA* (01/03/23 10:52 PM) Invalid Interpretation Code 5.0 - 9.0 [facility] UA Auto SS Protein (U) [Mass/Vol] Negative (01/03/23 10:52 PM) Normal Negative FT UA Auto SS Specific gravity (U) [Rel density] 1.020 *NA* (01/03/23 10:52 PM) Invalid Interpretation Code 1.005 - 1.030 [facility] UA Auto SS UA Spec Desc Clean Catch (01/03/23 10:52 PM) Normal [facility] UA Auto SS Urobilinogen Qn (U) 1.6607008 {Georgina'U}/dL Normal 0.0 - 1.0 EU/dL FT UA Auto SS WBC Auto Ql (U) 1+ *ABN* (01/03/23 10:52 PM) Invalid Interpretation Code Negative [facility] UA Auto SS WBC LM.HPF (Urine sed) [#/Area] 6-15 /HPF Invalid Interpretation Code 0-5/HPF [facility] UA Auto SS Alanine aminotransferase [En zymatic activity/volume] in Serum or PlasmaOrdered By: Jose Silverman on 10-02-2022 ALT [Catalytic activity/Vol] 13 U/L Normal 7-52 [facility] Comment on above: Performed By: #### C BC, CMP, ETOH #### [facility] [address] [place] [address] [place] Albumin [Mass/volume] in Ser um or Plasma by Bromocresol green (BCG) dye binding methoOrdered By: Jose Silverman on 10-02-2022 Albumin BCG dye [Mass/Vol] 5.0 g/dL 3.5-5.7 [facility] Alkaline phosphatase [Enzyma tic activity/volume] in Serum or PlasmaOrdered By: Jose Silverman on 10-02-2022 ALP [Catalytic activity/Vol] 69 U/L Normal 34-104 [facility] Comment on above: Performed By: #### C BC, CMP, ETOH #### [facility] [address] [place] [address] [place] Amphetamine Screen Ql (U)Ord ered By: Jose Silverman on 10-02-2022 Amphetamines Ql (U) Negative Negative [facility] Aspartate aminotransferase [ Enzymatic activity/volume] in Serum or PlasmaOrdered By: Jose Silverman on 10-02-2022 AST [Catalytic activity/Vol] 21 U/L Normal 13-39 [facility] Comment on above: Performed By: #### C BC, CMP, ETOH #### [address] Automated basophil %Ordered By: Jose Silverman on 10-02-2022 Basophils/100 WBC (Bld) 0.5 % Normal . [facility] Comment on above: Performed By: #### C BC, CMP, ETOH #### [address] Automated basophil countOrde red By: Jose Silverman on 10-02-2022 Basophils (Bld) [#/Vol] 0.1 10*3/uL Normal 0.0-0.2 [facility] Comment on above: Result Comment: PERF ORMED BY: [place] [address] PATHOLOGIST [employer] F[employer]OR SANDER ASHELY CAREY M.D. Performed By: #### C BC, CMP, ETOH #### [address] Automated blood monocyte cou ntOrdered By: Jose Silverman on 10-02-2022 Monocytes (Bld) [#/Vol] 0.7 10*3/uL Normal 0.0-0.8 [facility] Comment on above: Performed By: #### C BC, CMP, ETOH #### [address] Automated eosinophil %Ordere d By: Jose Silverman on 10-02-2022 Eosinophils/100 WBC (Bld) 2.0 % Normal . [facility] Comment on above: Performed By: #### C BC, CMP, ETOH #### [address] Automated eosinophil countOr dered By: Jose Silverman on 10-02-2022 Eosinophils (Bld) [#/Vol] 0.3 10*3/uL Normal 0.0-0.45 [facility] Comment on above: Performed By: #### C BC, CMP, ETOH #### [address] Automated erythrocytes count in urine sediment (number/area)Ordered By: Jose Silverman on 10-02-2022 RBC Auto (Urine sed) [#/Area] 0-1 [HPF] 0-4 [facility] Automated leukocytes count i n urine sediment (number/area)Ordered By: Jose Silverman on 10-02-2022 WBC Auto (Urine sed) [#/Area] 10-19 [HPF] 0-4 [facility] Automated monocyte %Ordered By: Jose Silverman on 10-02-2022 Monocytes/100 WBC (Bld) 5.7 % Normal . [facility] Comment on above: Performed By: #### C BC, CMP, ETOH #### [facility] [address] Automated neutrophil %Ordere d By: Jose Silverman on 10-02-2022 Neutrophils/100 WBC (Bld) 68.7 % Normal . [facility] Comment on above: Performed By: #### C BC, CMP, ETOH #### [facility] [address] [place] [address] [place] Barbiturates [Presence] in U rine by Screen methodOrdered By: Jose Silverman on 10-02-2022 Barbiturates Screen Ql (U) Negative Negative [facility] Benzodiazepines Screen Ql (U )Ordered By: Jose Silverman on 10-02-2022 Benzodiazepines Ql (U) Negative Negative [facility] Benzoylecgonine [Presence] i n Urine by Screen methodOrdered By: Jose Silverman on 10-02-2022 Benzoylecgonine Screen Ql (U) Negative Negative [facility] Bilirubin Test strip Ql (U)O rdered By: Jose Silverman on 10-02-2022 Bilirubin Ql (U) Negative Negative [facility] Bilirubin.total [Mass/volume ] in Serum or PlasmaOrdered By: Jose Silverman on 10-02-2022 Bilirubin [Mass/Vol] 0.3 mg/dL Normal 0.3-1.0 [facility] Comment on above: Performed By: #### C BC, CMP, ETOH #### [facility] [address] [place] [address] [place] Calcium [Mass/volume] in Ser um or PlasmaOrdered By: Jose Silverman on 10-02-2022 Calcium [Mass/Vol] 9.6 mg/dL Normal 8.6-10.3 [facility] Comment on above: Performed By: #### C BC, CMP, ETOH #### [facility] [address] Cannabinoids [Presence] in U rine by Screen methodOrdered By: Jose Silverman on 10-02-2022 Cannabinoids Screen Ql (U) Negative Negative [facility] Comment on above: These are unconfirme d results and should not be used for legal purposes. Drug Cut-Off Concentration: AMPH 1000 ng/mL MIAH 200 ng/mL AYAN 200 ng/mL COCM 300 ng/mL OP 300 ng/mL PCP 25 ng/mL THC 20 ng/mL Carbon dioxide, total [Moles /volume] in Serum or PlasmaOrdered By: Jose Silverman on 10-02-2022 CO2 [Moles/Vol] 27.2 mmol/L Normal 21.0-31.0 [facility] Comment on above: Performed By: #### C BC, CMP, ETOH #### [place] [address] [place] Chloride [Moles/volume] in S brian or PlasmaOrdered By: Jose Silverman on 10-02-2022 Chloride [Moles/Vol] 101 mmol/L Normal 98-107 [facility] Comment on above: Performed By: #### C BC, CMP, ETOH #### [facility] [address] [place] [address] [place] Color Auto (U)Ordered By: Loli Silverman on 10-02-2022 Color (U) Yellow Yellow [facility] Complete Blood Count Auto Di ffon 10-02-2022 Mean Corpuscular HGB Conc 32.0 g/dL Normal 32.0-35.0 [facility] Comment on above: Performed By: #### C BC, CMP, ETOH #### [place] [address] [place] Monocytes/100 WBC (Bld) 17.72 % Normal 0.00-20.00 [facility] Comment on above: Performed By: #### C BC, CMP, ETOH #### [facility] [address] NRBC% 0.0 /100{WBC} Normal 0-0.5 [facility] Comment on above: Performed By: #### C BC, CMP, ETOH #### [facility] [address] Comprehensive Metabolic Pane tung 10-02-2022 Albumin [Mass/Vol] 5.0 g/dL Normal 3.5-5.7 [facility] Comment on above: Performed By: #### C BC, CMP, ETOH #### [address] Creatinine Clr Calc Pharmacy 107.48 [facility] Comment on above: Result Comment: PERF ORMED BY: [place] [address] PATHOLOGIST [employer] F[employer]OR SANDER ASHELY CAREY M.D. Performed By: #### C BC, CMP, ETOH #### [address] GFR/1.73 sq M.predicted MDRD (S/P/Bld) [Vol rate/Area] mL/min/{1.73_m2} Normal [facility] Comment on above: Performed By: #### C BC, CMP, ETOH #### [address] Creatinine [Mass/volume] in Serum or PlasmaOrdered By: Jose Silverman on 10-02-2022 Creatinine [Mass/Vol] 0.89 mg/dL Normal 0.60-1.20 [facility] Comment on above: Performed By: #### C BC, CMP, ETOH #### [address] Dipstick and Microscopicon 0 10-02-2022 Appearance (U) Clear Normal Clear [facility] Comment on above: Order Comment: Name Collection Type:: Clean-Voided Midstream Performed By: #### U RDS, ADDONUAPLUS, CUU, UHCG #### [address] Bacteria,Urine 2+ High None Seen [facility] Comment on above: Order Comment: Name Collection Type:: Clean-Voided Midstream Performed By: #### U RDS, ADDONUAPLUS, CUU, UHCG #### [facility] [address] [place] [address] [place] Bilirubin,Urine Negative Normal Negative [facility] Comment on above: Order Comment: Name Collection Type:: Clean-Voided Midstream Performed By: #### U RDS, ADDONUAPLUS, CUU, UHCG #### [facility] [address] [place] [address] Color (U) Yellow Normal Yellow [facility] Comment on above: Order Comment: Name Collection Type:: Clean-Voided Midstream Performed By: #### U RDS, ADDONUAPLUS, CUU, UHCG #### [facility] [address] [place] [address] Glucose Ql (U) Normal Normal Normal [facility] Comment on above: Order Comment: Name Collection Type:: Clean-Voided Midstream Performed By: #### U RDS, ADDONUAPLUS, CUU, UHCG #### [facility] [address] [place] [address] [place] Hyaline Casts,Urine 0-8 Normal 0-8 [facility] Comment on above: Order Comment: Name Collection Type:: Clean-Voided Midstream Performed By: #### U RDS, ADDONUAPLUS, CUU, UHCG #### [facility] [address] [place] [address] [place] Ketones Ql (U) Negative Normal Negative [facility] Comment on above: Order Comment: Name Collection Type:: Clean-Voided Midstream Performed By: #### U RDS, ADDONUAPLUS, CUU, UHCG #### [facility] [address] [place] [address] [place] Leukocyte esterase Test strip Ql (U) 3+ High Negative [facility] Comment on above: Order Comment: Name Collection Type:: Clean-Voided Midstream Performed By: #### U RDS, ADDONUAPLUS, CUU, UHCG #### [facility] [address] [place] [address] [place] Nitrite,Urine Negative Normal Negative [facility] Comment on above: Order Comment: Name Collection Type:: Clean-Voided Midstream Performed By: #### U RDS, ADDONUAPLUS, CUU, UHCG #### [address] Occult Blood,Urine Negative Normal Negative [facility] [facility] Comment on above: Order Comment: Name Collection Type:: Clean-Voided Midstream Performed By: #### U RDS, ADDONUAPLUS, CUU, UHCG #### [address] pH (U) 6.5 [pH] Normal 5.0-9.0 [facility] Comment on above: Order Comment: Name Collection Type:: Clean-Voided Midstream Performed By: #### U RDS, ADDONUAPLUS, CUU, UHCG #### [place] [address] [place] Protein,Urine Negative Normal Negative [facility] Comment on above: Order Comment: Name Collection Type:: Clean-Voided Midstream Performed By: #### U RDS, ADDONUAPLUS, CUU, UHCG #### [address] RBC LM.HPF (Urine sed) [#/Area] 0 /[HPF] Normal 0-4 [facility] Comment on above: Order Comment: Name Collection Type:: Clean-Voided Midstream Performed By: #### U RDS, ADDONUAPLUS, CUU, UHCG #### [place] [address] [place] Specificy [place],Urine 1.021 Normal 1.001-1.030 [facility] Comment on above: Order Comment: Name Collection Type:: Clean-Voided Midstream Performed By: #### U RDS, ADDONUAPLUS, CUU, UHCG #### [address] Squamous Epithelial Cell,Urine 10-19 High 0-2 [facility] Comment on above: Order Comment: Name Collection Type:: Clean-Voided Midstream Performed By: #### U RDS, ADDONUAPLUS, CUU, UHCG #### [facility] [address] [place] [address] Urobilinogen,Urine Normal Normal Normal [facility] Comment on above: Order Comment: Name Collection Type:: Clean-Voided Midstream Performed By: #### U RDS, ADDONUAPLUS, CUU, UHCG #### [facility] [address] [place] [address] [place] WBC,Urine 10-19 High 0-4 [facility] Comment on above: Order Comment: Name Collection Type:: Clean-Voided Midstream Performed By: #### U RDS, ADDONUAPLUS, CUU, UHCG #### [facility] [address] [place] [address] Drug Screen,Urineon 10-03-19 23 Amphetamine Screen,Urine Negative Normal Negative [facility] Comment on above: Performed By: #### U RDS, ADDONUAPLUS, CUU, UHCG #### [facility] [address] [place] [address] [place] Barbiturate Screen,Urine Negative Normal Negative [facility] Comment on above: Performed By: #### U RDS, ADDONUAPLUS, CUU, UHCG #### [facility] [address] [place] [address] [place] Benzodiazepines Screen,Urine Negative Normal Negative [facility] Comment on above: Performed By: #### U RDS, ADDONUAPLUS, CUU, UHCG #### [facility] [address] [place] [address] [place] Cannabinoid Screen,Urine Negative Normal Negative [facility] Comment on above: Result Comment: Thes e are unconfirmed results and should not be used for legal purposes. Drug Cut-Off Concentration: AMPH 1000 ng/mL MIAH 200 ng/mL AYAN 200 ng/mL COCM 300 ng/mL OP 300 ng/mL PCP 25 ng/mL THC 20 ng/mL PERFORMED BY: [place] [phone] PATHOLOGIST [employer] ASHELY CAREY M.D. Performed By: #### U RDS, ADDONUAPLUS, CUU, UHCG #### [address] Cocaine Screen,Urine Negative Normal Negative [facility] Comment on above: Performed By: #### U RDS, ADDONUAPLUS, CUU, UHCG #### [address] Opiate Screen,Urine Negative Normal Negative [facility] Comment on above: Performed By: #### U RDS, ADDONUAPLUS, CUU, UHCG #### [address] Phencyclidine Screen,Urine Negative Normal Negative [facility] Comment on above: Performed By: #### U RDS, ADDONUAPLUS, CUU, UHCG #### [address] Erythrocyte distribution wid th [Ratio] by Automated countOrdered By: Jose Silverman on 10-02-2022 Erythrocyte distribution width (RBC) [Ratio] 15.8 % High 11.9-15.3 [facility] Comment on above: Performed By: #### C BC, CMP, ETOH #### [address] Erythrocytes [#/volume] in B lood by Automated countOrdered By: Jose Silverman on 10-02-2022 RBC (Bld) [#/Vol] 5.31 10*6/uL High 3.60-5.00 [facility] Comment on above: Performed By: #### C BC, CMP, ETOH #### [address] Ethanol [Mass/volume] in Ser um or PlasmaOrdered By: Jose Silverman on 10-02-2022 Ethanol [Mass/Vol] mg/dL Normal [facility] Comment on above: Performed By: #### C BC, CMP, ETOH #### [address] Ethanol [Mass/Vol] TNP [facility] Comment on above: Test not performed Ethyl Alcohol Profileon 09-08 Percent Ethanol Not performed Normal [facility] Comment on above: Result Comment: PERF ORMED BY: [place] [address] PATHOLOGIST [employer] ASHELY CAREY M.D. Performed By: #### C BC, CMP, ETOH #### [place] [id number] [facility] Glucose [Mass/volume] in Ser um or PlasmaOrdered By: Jose Silverman on 10-02-2022 Glucose [Mass/Vol] 98 mg/dL Normal 70-100 [facility] Comment on above: ADA recommended refe rence rangeRandom Glucose Reference Range is dependent on time and content of last meal. Glucose of more than 200 mg/dL in a nonstressed, ambulatory subject supports the diagnosis of Diabetes Mellitus. Result Comment: [place] om Glucose Reference Range is dependent on time and content of last meal. Glucose of more than 200 mg/dL in a nonstressed, ambulatory subject supports the diagnosis of Diabetes Mellitus. ADA recommended reference range Performed By: #### C BC, CMP, ETOH #### [facility] [address] [place] [address] HCG ( test) IA.rapi d Ql (U)Ordered By: Jose Silverman on 10-02-2022 HCG ( test) Ql (U) Negative [facility] HCG,Urineon 10-02-2022 Beta HCG ( test) Ql (U) Negative Normal [facility] Comment on above: Order Comment: Name Collection Type:: Clean-Voided Midstream Result Comment: PERF ORMED BY: [place] [address] PATHOLOGIST [employer] ASHELY CAREY M.D. Performed By: #### U RDS, ADDONUAPLUS, CUU, UHCG #### [facility] [address] [place], [place] [id number] [facility] Hematocrit [Volume Fraction] of Blood by Automated countOrdered By: Jose Silverman on 10-02-2022 Hematocrit (Bld) [Volume fraction] 41.7 % Normal 34.0-46.4 [facility] Comment on above: Performed By: #### C BC, CMP, ETOH #### [address] Hemoglobin [Mass/volume] in BloodOrdered By: Jose Silverman on 10-02-2022 Hemoglobin (Bld) [Mass/Vol] 13.3 g/dL Normal 11.8-15.4 [facility] Comment on above: Performed By: #### C BC, CMP, ETOH #### [address] Ketones Auto test strip (U) [Mass/Vol]Ordered By: Jose Silverman on 10-02-2022 Ketones (U) [Mass/Vol] Negative Negative [facility] - UrinalysisOrder ed By: Jose Silverman on 10-02-2022 Hyaline casts LM Ql (Urine sed) 0-8 [LPF] 0-8 [facility] Leukocytes [#/volume] correc ruby for nucleated erythrocytes in Blood by Automated counOrdered By: Jose Silverman on 10-02-2022 WBC corrected for nucl RBC Auto (Bld) [#/Vol] 12.9 10*3/uL 3.8-11.6 [facility] Leukocytes [#/volume] in Blo od by Automated countOrdered By: Jose Silverman on 10-02-2022 WBC (Bld) [#/Vol] 12.9 10*3/uL High 3.8-11.6 [facility] Comment on above: Performed By: #### C BC, CMP, ETOH #### [place] [address] [place] Lymphocytes [#/volume] in Bl ood by Automated countOrdered By: Jose Silverman on 10-02-2022 Lymphocytes (Bld) [#/Vol] 3.0 10*3/uL Normal 1.00-4.8 [facility] Comment on above: Performed By: #### C BC, CMP, ETOH #### [facility] [address] [place] [address] [place] Lymphocytes/100 leukocytes i n Blood by Automated countOrdered By: Jose Silverman on 10-02-2022 Lymphocytes/100 WBC (Bld) 23.1 % Normal . [facility] Comment on above: Performed By: #### C BC, CMP, ETOH #### [facility] [address] [place] [address] [place] MCH [Entitic mass] by Automa ruby countOrdered By: Jose Silverman on 10-02-2022 MCH (RBC) [Entitic mass] 25.2 pg Normal 24.7-34.3 [facility] Comment on above: Performed By: #### C BC, CMP, ETOH #### [facility] [address] MCHC Auto (RBC) [Mass/Vol]Or dered By: Jose Silverman on 10-02-2022 MCHC (RBC) [Mass/Vol] 32.0 g/dL 32.0-35.0 [facility] MCV [Entitic volume] by Auto mated countOrdered By: Jose Silverman on 10-02-2022 MCV (RBC) [Entitic vol] 78.5 fL Low 80-100 [facility] Comment on above: Performed By: #### C BC, CMP, ETOH #### [address] Monocyte distribution width [Entitic volume] in Blood by AutomatedOrdered By: Jose Silverman on 10-02-2022 Monocyte distribution width Auto (Bld) [Entitic vol] 17.72 % 0.00-20.00 [facility] Neutrophils [#/volume] in Bl ood by Automated countOrdered By: Jose Silverman on 10-02-2022 Neutrophils (Bld) [#/Vol] 8.9 10*3/uL High 1.8-7.7 [facility] Comment on above: Performed By: #### C BC, CMP, ETOH #### [address] Nitrite Test strip Ql (U)Ord ered By: Jose Silverman on 10-02-2022 Nitrite Ql (U) Negative Negative [facility] No Panel InformationOrdered By: Jose Silverman on 10-02-2022 Estimated GFR (CKD-EPI) > 60.0 mL/Min [facility] Creatinine Clearance (Chem 107.48 [facility] Nucleated erythrocytes [Pres ence] in Blood by Automated countOrdered By: Jose Silverman on 10-02-2022 Nucleated RBC Auto Ql (Bld) 0.0 /100{WBC} 0-0.5 [facility] Opiates [Presence] in Urine by Screen methodOrdered By: Jose Silverman on 10-02-2022 Opiates Screen Ql (U) Negative Negative [facility] Phencyclidine Screen Ql (U)O rdered By: Jose Silverman on 10-02-2022 Phencyclidine Ql (U) Negative Negative [facility] Platelet mean volume [Entiti c volume] in Blood by Automated countOrdered By: Jose Silverman on 10-02-2022 Platelet mean volume (Bld) [Entitic vol] 7.7 fL Normal 6.3-10.7 [facility] Comment on above: Performed By: #### C BC, CMP, ETOH #### [facility] [address] [place] [address] Platelets [#/volume] in Bloo d by Automated countOrdered By: Jose Silverman on 10-02-2022 Platelets (Bld) [#/Vol] 342 10*3/uL Normal 150-450 [facility] Comment on above: Performed By: #### C BC, CMP, ETOH #### [place] [address] [place] Potassium [Moles/volume] in Serum or PlasmaOrdered By: Jose Silverman on 10-02-2022 Potassium [Moles/Vol] 3.8 mmol/L Normal 3.5-5.1 [facility] Comment on above: Performed By: #### C BC, CMP, ETOH #### [place] [address] [place] Protein Auto test strip (U) [Mass/Vol]Ordered By: Jose Silverman on 10-02-2022 Protein (U) [Mass/Vol] Negative Negative [facility] Protein [Mass/volume] in Ser um or PlasmaOrdered By: Jose Silverman on 04-26-2023 Protein [Mass/Vol] 8.7 g/dL Normal 6.4-8.9 [facility] Comment on above: Performed By: #### C BC, CMP, ETOH #### [address] Serum globulin measurement b y calculation (mass/volume)Ordered By: Jose Silverman on 10-02-2022 Globulin (S) [Mass/Vol] 3.7 g/dL Normal [facility] Comment on above: Performed By: #### C BC, CMP, ETOH #### [address] Serum or plasma albumin/glob ulin mass ratioOrdered By: Jose Silverman on 10-02-2022 Albumin/Globulin [Mass ratio] 1.4 {ratio} Normal [facility] Comment on above: Performed By: #### C BC, CMP, ETOH #### [address] Serum or plasma anion gap de terminationOrdered By: Jose Silverman on 10-02-2022 Anion gap [Moles/Vol] 12.6 mmol/L Normal 6.0-15.0 [facility] Comment on above: Performed By: #### C BC, CMP, ETOH #### [address] Sodium [Moles/volume] in Ser um or PlasmaOrdered By: Jose Silverman on 10-02-2022 Sodium [Moles/Vol] 137 mmol/L Normal 136-145 [facility] Comment on above: Performed By: #### C BC, CMP, ETOH #### [address] Specific gravity Auto test s trip (U) [Rel density]Ordered By: Jose Silverman on 10-02-2022 Specific gravity (U) [Rel density] 1.021 1.001-1.030 [facility] Squamous epithelial cells de tection in urine sediment by light microscopyOrdered By: Jose Silverman on 10-02-2022 Epithelial cells.squamous LM Ql (Urine sed) 10-19 [HPF] 0-2 [facility] Urea nitrogen [Mass/volume] in Serum or PlasmaOrdered By: Jose Silverman on 10-02-2022 Urea nitrogen [Mass/Vol] 18 mg/dL Normal 7-25 [facility] Comment on above: Performed By: #### C BC, CMP, ETOH #### [facility] [address] [place] [address] [place] Urine Cultureon 10-02-2022 Bacteria identified Cx Nom (U) ORGANISM: Strep agalactiae - (group b) (O:STRAGA) [place] Count 50,000 PERFORMED BY: [place] [address] PATHOLOGIST [employer] S[employer] ASHELY CAREY M.D. Normal [facility] Comment on above: Performed By: #### U RDS, ADDONUAPLUS, CUU, UHCG #### [facility] [address] [place] [address] Urine bacteria detection by automated methodOrdered By: Jose Silverman on 10-02-2022 Bacteria Auto Ql (U) 2+ None Seen [facility] Urine clarity by refractomet ry automatedOrdered By: Jose Silverman on 10-02-2022 Clarity Refractometry automated (U) Clear Clear [facility] Urine glucose measurement by automated test strip (mass/volume)Ordered By: Jose Silverman on 10-02-2022 Glucose Auto test strip (U) [Mass/Vol] Normal mg/dL Normal [facility] Urine hemoglobin detection b y automated test stripOrdered By: Jose Silverman on 10-02-2022 Hemoglobin Auto test strip Ql (U) Negative Negative [facility] Urine leukocyte esterase det ection by automated test stripOrdered By: Jose Silverman on 10-02-2022 Leukocyte esterase Auto test strip Ql (U) 3+ Negative [facility] Urobilinogen Auto test strip (U) [Mass/Vol]Ordered By: Jose Silverman on 10-02-2022 Urobilinogen (U) [Mass/Vol] Normal mg/dL Normal [facility] pH Auto test strip (U)Ordere d By: Jose Silverman on 10-02-2022 pH (U) 6.5 [pH] 5.0-9.0 [facility] Quick Strepon 09-25-2022 S. pyogenes Org specific cx Ql (Throat) Negative [employer] Other Quick Strep [employer] Other CHEMISTRYOrdered By: SYSTEM SYSTEM on 09-06-2022 [...] rate/Area] mL/min/1.73 m2 Normal >=59mL/min/1 .73 m2 [facility] Chem S GFR/1.73 sq M.predicted among non-blacks MDRD (S/P/Bld) [Vol rate/Area] mL/min/1.73 m2 Normal >=59mL/min/1 .73 m2 [facility] Chem S Glucose [Mass/Vol] 82 mg/dL Normal [...] 0.7 % Normal 0.0 - 2.0 % FT [...] AM) Normal Negative [facility] UA Auto SS [place].plasma/[place].R BC (Bld) [Mass ratio] >30 /HPF Invalid [...] AM) Invalid Interpretation Code 1.005 - 1.030 [facility] UA Auto SS UA Spec Desc Clean Catch (09/06/22 11:19 AM) Normal [facility] UA Auto SS Urobilinogen Qn (U) [id number] {Georgina'U}/dL Normal 0.0 - 1.0 EU/dL FT UA Auto SS WBC Auto Ql (U) Negative (09/06/22 11:19 AM) Normal Negative [facility] UA Auto SS WBC LM.HPF (Urine sed) [#/Area] 0-5 /HPF Normal 0-5/HPF [facility] UA Auto SS BLOOD BANKOrdered By: John Montague on 08-14-2022 ABO/Rh Interp Positive Invalid Interpretation Code [facility] BB Subsection CHEMISTRYOrdered By: SYSTEM SYSTEM on [...] rate/Area] mL/min/1.73 m2 Normal >=59mL/min/1 .73 m2 [facility] Chem S Globulin (S) [Mass/Vol] 3.2 g/dL [...] - 20 FT Remisol CHEMISTRYOrdered By: Kenneth stark on 08-14-2022 [...] PM) Normal Negative [facility] UA Auto SS [place].plasma/[place].R BC (Bld) [Mass ratio] 0-3 /HPF Normal [...] [facility] UA Auto SS Urobilinogen Qn (U) [id number] {[place]ina'U}/dL Normal 0.0 - 1.0 EU/dL [facility] UA Auto SS WBC Auto Ql (U) Negative (08/14/22 7:29 PM) Normal Negative [facility] UA Auto SS WBC LM.HPF (Urine sed) [#/Area] 0-5 /HPF Normal 0-5/HPF [facility] UA Auto SS CHLAMYDIA/GONOCOCCUS ALFREDO (SW AB/URINE/PAPon 07-15-2022 Chlamydia trachomatis, ALFREDO Negative Normal Negative [facility] Comment on above: Performed By: #### C T/NGNA #### [facility] [address] [place] [address] [address] Cyril Hendricks Neisseria gonorrhoeae, ALFREDO Negative Normal Negative [facility] Comment on above: Performed By: #### C T/NGNA #### [facility] [address] [place] [address] Dr. Cyril Hendricks VAGINITIS/VAGINOSIS DNA PROB Maurice 07-13-2022 Krista species Negative Normal Negative [facility] Comment on above: Performed By: #### U MICRO, UACSIND #### [facility] [address] [place] [address] [address] Cyril Hendricks Gardnerella vaginalis Positive Abnormal Negative [facility] Comment on above: Performed By: #### U MICRO, UACSIND #### [facility] [address] [place] [address] [address] Cyril Hendricks Trichomonas vaginalis Negative Normal Negative [facility] Comment on above: Performed By: #### U MICRO, UACSIND #### [facility] [address] [place] [address] [address] Cyril Hendricks COVID/FLU RT-PCRon SARS-CoV-2 (COVID-19) RNA ALFREDO+probe Ql (Unsp spec) Negative [employer] Other COVID/FLU RT-PCR Negative [employer] Other Quick Strepon 06-24-2022 S. pyogenes Org specific cx Ql (Throat) Negative [employer] Other Quick Strep [place] [employer] Other CBC AUTO DIFFon 01-08-2022 BASO # 0.1 103/ul Normal 0.0-0.1 [facility] Comment on above: Performed By: #### C BC #### [facility] [address] [place] [address] [address] Cyril Hendricks Basophils/100 WBC (Bld) 0.4 % Normal 0.2-2.0 [facility] Comment on above: Performed By: #### C BC #### [facility] [address] [place] [address] [address] Cyril Hendricks EO # 0.1 103/ul Normal 0.0-0.7 [facility] Comment on above: Performed By: #### C BC #### [facility] [address] [place] [address] Dr. Cyril Hendricks Eosinophils/100 WBC (Bld) 0.9 % Normal 0.9-7.0 [facility] Comment on above: Performed By: #### C BC #### [facility] [address] [place] [address] [address] Cyril Hendricks Erythrocyte distribution width (RBC) [Ratio] 12.3 % Normal 11.0-15.0 [facility] Comment on above: Performed By: #### C BC #### [facility] [address] [place] [address] Dr. Cyril Hendricks Hematocrit (Bld) [Volume fraction] 30.0 % Critically low 36.0-48.0 [facility] Comment on above: Performed By: #### C BC #### [facility] [address] [place] [address] [address] Cyril Hendricks Hemoglobin (Bld) [Mass/Vol] 10.2 g/dL Critically low 12.0-16.0 [facility] Comment on above: Performed By: #### C BC #### [facility] [address] [place] [address] Dr. Cyril Hendricks IG # 0.05 10e3/ul Critically high 0.00-0.03 [facility] Comment on above: Performed By: #### C BC #### [facility] [address] [place] [address] Dr. Cyril Hendricks IG % 0.4 % Normal 0.0-0.5 [facility] Comment on above: Performed By: #### C BC #### [facility] [address] [place] [address] Dr. Cyril Hendricks LYMPH # 2.8 103/ul Normal 1.2-3.8 [facility] Comment on above: Performed By: #### C BC #### [facility] [address] [place] [address] Dr. Cyril Hendricks Lymphocytes/100 WBC (Bld) 19.7 % Critically low 20.5-60.0 [facility] Comment on above: Performed By: #### C BC #### [facility] [address] [place] [address] Dr. Cyril Hendricks MANUAL DIFF REQ NO Normal [facility] Comment on above: Performed By: #### C BC #### [facility] [address] [place] [address] Dr. Cyril Hendricks MCH (RBC) [Entitic mass] 30.6 pg Normal 26.7-34.0 [facility] Comment on above: Performed By: #### C BC #### [facility] [address] [place] [address] Dr. Cyril Hendricks MCHC (RBC) [Mass/Vol] 34.0 g/dL Normal 29.9-35.2 [facility] Comment on above: Performed By: #### C BC #### [facility] [address] [place] [address] Dr. Cyril Hendricks MCV (RBC) [Entitic vol] 90.1 fL Normal 81.0-99.0 [facility] Comment on above: Performed By: #### C BC #### [facility] [address] [place] [address] Dr. Cyril Hendricks MONO # 0.8 103/ul Normal 0.3-0.8 [facility] Comment on above: Performed By: #### C BC #### [facility] [address] [place] [address] Dr. Cyril Hendricks Monocytes/100 WBC (Bld) 5.9 % Normal 1.7-12.0 [facility] Comment on above: Performed By: #### C BC #### [facility] [address] [place] [address] Dr. Cyril Hendricks NEUT # 10.3 103/ul Critically high 1.4-6.5 [facility] Comment on above: Performed By: #### C BC #### [facility] [address] [place] [address] Dr. Cyril Hendricks Neutrophils/100 WBC (Bld) 72.7 % Normal 43.0-75.0 [facility] Comment on above: Performed By: #### C BC #### [facility] [address] [place] [address] Dr. Cyril Hendricks Platelet mean volume (Bld) [Entitic vol] 9.8 fL Normal 9.5-13.5 [facility] Comment on above: Performed By: #### C BC #### [facility] [address] [place] [address] Dr. Cyril Hendricks PLT 207 103/ul Normal 150-450 [facility] Comment on above: Performed By: #### C BC #### [facility] [address] [place] [address] Dr. Cyril Hendricks RBC 3.33 106/ul Critically low 4.20-5.40 [facility] Comment on above: Performed By: #### C BC #### [facility] [address] [place] [address] Dr. Cyril Hendricks WBC 14.2 103/ul Critically high 4.0-11.0 [facility] Comment on above: Performed By: #### C BC #### [facility] [address] [place] [address] Dr. Cyril Hendricks CBC AUTO DIFFon 01-07-2022 BASO # 0.1 103/ul Normal 0.0-0.1 [facility] Comment on above: Performed By: #### U MICRO, UACSIND #### [facility] [address] [address] [address] Cyril Hendricks Basophils/100 WBC (Bld) 0.5 % Normal 0.2-2.0 [facility] Comment on above: Performed By: #### U MICRO, UACSIND #### [facility] [address] [address] [address] Cyril Hendricks EO # 0.1 103/ul Normal 0.0-0.7 [facility] Comment on above: Performed By: #### U MICRO, UACSIND #### [facility] [address] [address] [address] Cyril Hendricks Eosinophils/100 WBC (Bld) 0.9 % Normal 0.9-7.0 [facility] Comment on above: Performed By: #### U MICRO, UACSIND #### [facility] [address] [place] [address] Dr. Cyril Hendricks Erythrocyte distribution width (RBC) [Ratio] 12.4 % Normal 11.0-15.0 [facility] Comment on above: Performed By: #### U MICRO, UACSIND #### [facility] [address] [place] [address] Dr. Cyril Hendricks Hematocrit (Bld) [Volume fraction] 34.3 % Critically low 36.0-48.0 [facility] Comment on above: Performed By: #### U MICRO, UACSIND #### [facility] [address] [place] [address] Dr. Cyril Hendricks Hemoglobin (Bld) [Mass/Vol] 11.6 g/dL Critically low 12.0-16.0 [facility] Comment on above: Performed By: #### U MICRO, UACSIND #### [facility] [address] [address] [address] Cyril Hendricks IG # 0.06 10e3/ul Critically high 0.00-0.03 [facility] Comment on above: Performed By: #### U MICRO, UACSIND #### [facility] [address] [place] [address] Dr. Cyril Hendricks IG % 0.4 % Normal 0.0-0.5 [facility] Comment on above: Performed By: #### U MICRO, UACSIND #### [facility] [address] [place] [address] Dr. Cyril Hendricks LYMPH # 3.1 103/ul Normal 1.2-3.8 [facility] Comment on above: Performed By: #### U MICRO, UACSIND #### [facility] [address] [place] [address] Dr. Cyril Hendricks Lymphocytes/100 WBC (Bld) 20.4 % Critically low 20.5-60.0 [facility] Comment on above: Performed By: #### U MICRO, UACSIND #### [facility] [address] [place] [address] Dr. Cyril Hendricks MANUAL DIFF REQ NO Normal [facility] Comment on above: Performed By: #### U MICRO, UACSIND #### [facility] [address] [place] [address] Dr. Cyril Hendricks MCH (RBC) [Entitic mass] 30.6 pg Normal 26.7-34.0 [facility] Comment on above: Performed By: #### U MICRO, UACSIND #### [facility] [address] [place] [address] Dr. Cyril Hendricks MCHC (RBC) [Mass/Vol] 33.8 g/dL Normal 29.9-35.2 [facility] Comment on above: Performed By: #### U MICRO, UACSIND #### [facility] [address] [place] [address] Dr. Cyril Hendricks MCV (RBC) [Entitic vol] 90.5 fL Normal 81.0-99.0 [facility] Comment on above: Performed By: #### U MICRO, UACSIND #### [facility] [address] [place] [address] Dr. Cyril Hendricks MONO # 0.9 103/ul Critically high 0.3-0.8 [facility] Comment on above: Performed By: #### U MICRO, UACSIND #### [facility] [address] [place] [address] Dr. Cyril Hendricks Monocytes/100 WBC (Bld) 6.2 % Normal 1.7-12.0 [facility] Comment on above: Performed By: #### U MICRO, UACSIND #### [facility] [address] [address] [address] Cyril Hendricks NEUT # 10.9 103/ul Critically high 1.4-6.5 [facility] Comment on above: Performed By: #### U MICRO, UACSIND #### [facility] [address] [place] [address] Dr. Cyril Hendricks Neutrophils/100 WBC (Bld) 71.6 % Normal 43.0-75.0 [facility] Comment on above: Performed By: #### U MICRO, UACSIND #### [facility] [address] [place] [address] Dr. Cyril Hendricks Platelet mean volume (Bld) [Entitic vol] 11.1 fL Normal 9.5-13.5 [facility] Comment on above: Performed By: #### U MICRO, UACSIND #### [facility] [address] [place] [address] Dr. Cyril Hendricks PLT 240 103/ul Normal 150-[address] [facility] Comment on above: Performed By: #### U MICRO, UACSIND #### [facility] [address] [place] [address] Dr. Cyril Hendricks RBC 3.79 106/ul Critically low 4.20-5.40 [facility] Comment on above: Performed By: #### U MICRO, UACSIND #### [facility] [address] [place] [address] Dr. Cyril Hendricks WBC 15.3 103/ul Critically high 4.0-11.0 [facility] Comment on above: Performed By: #### U MICRO, UACSIND #### [facility] [address] [place] [address] Dr. Cyril Hendricks Covid-19 PCR ([facility])on SARS-CoV-2 (COVID-19) RNA ALFRDEO+probe Ql (Unsp spec) Not detected Normal NOT DETECTED [facility] Comment on above: Result Comment: When [...] for this test is supported by the Charge Hand of Health and Human Service's declaration that [...] Performed By: #### H CVPCRR #### [facility] [address] [place] [address] Dr. Cyril Hendricks DRUG SCREEN RAPID (URINE)on 01-07-2022 AMP Negative Normal NEGATIVE [facility] Comment on above: Performed By: #### U MICRO, UACSIND #### [facility] [address] [place] [address] Dr. Cyril Hendricks BAR Negative Normal NEGATIVE [facility] Comment on above: Performed By: #### U MICRO, UACSIND #### [facility] [address] [place] [address] Dr. Cyril Hendricks BUP Negative Normal NEGATIVE [facility] Comment on above: Performed By: #### U MICRO, UACSIND #### [facility] [address] [place] [address] Dr. Cyril Hendricks BZO Negative Normal NEGATIVE [facility] Comment on above: Performed By: #### U MICRO, UACSIND #### [facility] [address] [place] [address] Dr. Cyril Hendricks DARIN Negative Normal NEGATIVE [facility] Comment on above: Performed By: #### U MICRO, UACSIND #### [facility] [address] [place] [address] Dr. Cyril Hendricks CUT-OFFS SEE BELOW Normal [facility] Comment on above: Result Comment: AMP (Amphetamine): [...] By: #### U MICRO, UACSIND #### [facility] [address] [place] [address] Dr. Cyril Hendricks DRUG CUT HEADER DRUG CLASS TEST SYSTEM CUT-OFF CONCENTRATIONS ARE FOLLOWS: Normal [facility] Comment on above: Performed By: #### U MICRO, UACSIND #### [facility] [address] [place] [address] Dr. Cyril Hendricks mAMP Negative Normal NEGATIVE [facility] Comment on above: Performed By: #### U MICRO, UACSIND #### [facility] [address] [place] [address] Dr. Cyril Hendricks MTD Negative Normal NEGATIVE [facility] Comment on above: Performed By: #### U MICRO, UACSIND #### [facility] [address] [place] [address] Dr. Cyril Hendricks OPI Negative Normal NEGATIVE [facility] Comment on above: Performed By: #### U MICRO, UACSIND #### [facility] [address] [place] [address] Dr. Cyril Hendricks OXY Negative Normal NEGATIVE [facility] Comment on above: Performed By: #### U MICRO, UACSIND #### [facility] [address] [place] [address] Dr. Cyril Hendricks PCP Negative Normal NEGATIVE [facility] Comment on above: Performed By: #### U MICRO, UACSIND #### [facility] [address] [place] [address] Dr. Cyril Hendricks PPX Negative Normal NEGATIVE [facility] Comment on above: Performed By: #### U MICRO, UACSIND #### [facility] [address] [place] [address] Dr. Cyril Hendricks TCA Negative Normal NEGATIVE [facility] Comment on above: Performed By: #### U MICRO, UACSIND #### [facility] [address] [place] [address] Dr. Cyril Hendricks THC Negative Normal NEGATIVE [facility] Comment on above: Performed By: #### U MICRO, UACSIND #### [facility] [address] [place] [address] Dr. Cyril Hendricks TYPE AND SCREENon 01-07-2022 TYPE AND SCREEN Negative Normal [facility] Comment on above: Performed By: #### H CVPCRR #### [facility] [address] [place] [address] Dr. Cyril Hendricks CULTURE URINEon 12-29-2021 CULTURE URINE Culture Observations: NO GROWTH. Normal [facility] Comment on above: Performed By: #### U RCX #### [facility] [address] [place] [address] Dr. Cyril Hendricks UA (CLEAN/CATCH) [employer] TECHNICIAN/MICRO I F IND.on 12-29-2021 Bilirubin Ql (U) Negative Normal NEGATIVE [facility] Comment on above: Performed By: #### U MICRO, UACSIND #### [facility] [address] [place] [address] Dr. Cyril Hendricks Clarity (U) SL CLOUDY Abnormal CLEAR [facility] Comment on above: Performed By: #### U MICRO, UACSIND #### [facility] [address] [place] [address] Dr. Cyril Hendricks Color (U) LT. YELLOW Normal YELLOW [facility] Comment on above: Performed By: #### U MICRO, UACSIND #### [facility] [address] [place] [address] Dr. Cyril Hendricks Glucose Ql (U) Negative Normal NEGATIVE [facility] Comment on above: Performed By: #### U MICRO, UACSIND #### [facility] [address] [address] [address] Cyril Hendricks Hemoglobin Ql (U) Negative Normal NEGATIVE [facility] Comment on above: Performed By: #### U MICRO, UACSIND #### [facility] [address] [address] [address] Cyril Hendricks Ketones Ql (U) Negative Normal NEGATIVE [facility] Comment on above: Performed By: #### U MICRO, UACSIND #### [facility] [address] [address] [address] Cyril Hendricks LEUKOCYTES LARGE Abnormal NEGATIVE [facility] Comment on above: Performed By: #### U MICRO, UACSIND #### [facility] [address] [place] [address] Dr. Cyril Hendricks Nitrite Ql (U) Negative Normal NEGATIVE [facility] Comment on above: Performed By: #### U MICRO, UACSIND #### [facility] [address] [address] [address] Cyril Hendricks pH (U) 6.5 [pH] Normal 5-9 [facility] Comment on above: Performed By: #### U MICRO, UACSIND #### [facility] [address] [address] [address] Cyril Hendricks SPEC GRAVITY 1.010 Normal 1.005-<=1.02 5 [facility] Comment on above: Performed By: #### U MICRO, UACSIND #### [facility] [address] [address] [address] Cyril Hendricks UA PROTEIN Negative Normal NEGATIVE/ TRACE [facility] Comment on above: Performed By: #### U MICRO, UACSIND #### [facility] [address] [address] [address] Cyril Hendricks UR MICRO IND INDICATED Normal [facility] Comment on above: Performed By: #### U MICRO, UACSIND #### [facility] [address] [address] [address] Cyril Hendricks Urobilinogen Qn (U) 0.2 {Georgina'U}/dL Normal 0.2 - 1. [address] [facility] Comment on above: Performed By: #### U MICRO, UACSIND #### [facility] [address] [place] [address] Dr. Cyril Hendricks URINE MICROSCOPIC ONLYon BACTERIA SMALL Abnormal NONE SEEN [facility] Comment on above: Performed By: #### U MICRO, UACSIND #### [facility] [address] [place] [address] Dr. Cyril Hendricks Bacteria identified Cx Nom (U) INDICATED Normal [facility] Comment on above: Performed By: #### U MICRO, UACSIND #### [facility] [address] [place] [address] Dr. Cyril Hendricks CAST NONE SEEN Normal NONE SEEN [facility] Comment on above: Performed By: #### U MICRO, UACSIND #### [facility] [address] [place] [address] Dr. Cyril Hendricks Crystals LM Nom (Urine sed) NONE SEEN Normal NONE SEEN [facility] Comment on above: Performed By: #### U MICRO, UACSIND #### [facility] [address] [place] [address] Dr. Cyril Hendricks Epithelial cells LM Ql (Urine sed) MANY Abnormal NONE SEEN /RARE [facility] Comment on above: Performed By: #### U MICRO, UACSIND #### [facility] [address] [place] [address] Dr. Cyril Hendricks MUCOUS NONE SEEN Normal NONE SEEN [facility] Comment on above: Performed By: #### U MICRO, UACSIND #### [facility] [address] [place] [address] Dr. Cyril Hendricks RBC 0-2 Normal 0-[address] [facility] Comment on above: Performed By: #### U MICRO, UACSIND #### [facility] [address] [place] [address] Dr. Cyril Hendricks WBC 10-20 Abnormal NONE SEEN [facility] Comment on above: Performed By: #### U MICRO, UACSIND #### [facility] [address] [place], [place] [address] Dr. Cyril Hendricks GROUP B STREP CULTUREon 12-07 S. agalactiae Ag Ql (Unsp spec) Culture Observations: NEGATIVE FOR GROUP B STREPTOCOCCUS. Normal [facility] Comment on above: Performed By: #### G BSCX #### [facility] [id number] Cyril Hendricks SSAon 12-13-2021 SSA <0.3 Normal <7.0 [facility] Comment on above: Result Comment: Reference Range: <7.0 Negative 7.0-10.0 Equivocal >10.0 Positive Performed By: #### S SARO, TSH, FT4, SSBLA #### [facility] [employer] [address] [place], [place] [id number] Spreader: Homer Hoffman MD SSBon 12-13-2021 SSB <0.3 Normal <7.0 [facility] Comment on above: Result Comment: Reference Range: <7.0 Negative 7.0-10.0 Equivocal >10.0 Positive Performed By: #### S SARO, TSH, FT4, SSBLA #### [facility] [address] [place], [place] [id number] Spreader: Homer Hoffman MD No Panel Informationon 12-12 [facility] T4, Freeon 12-12-2021 Thyroxine, Free 0.98 ng/dL 0.93 - 1.70 ng/dL [facility] TSHon 12-12-2021 TSH Qn 4.35 m[IU]/L [facility] Thyroid Stim. Horm.on 2021 Thyroid Stim. Horm. 4.35 uIU/mL Normal 0.30-5.00 [facility] Comment on above: Performed By: #### S SARO, TSH, FT4, SSBLA #### [facility] [employer] [address] [place] [id number] Spreader: Homer Hoffman MD Thyroxine, Freeon 12-12-2021 Thyroxine, Free 0.98 ng/dL Normal 0.93-1.70 [facility] Comment on above: Performed By: #### S SARO, TSH, FT4, SSBLA #### [facility] [address] [place] [address] Spreader: Homer Hoffman MD US PREG BIOPHY W [...] KABA Date: 2021-11-27 13:55 Normal [facility] COVID + FLU Quick Testingon 11-13-2021 SARS-CoV-2 (COVID-19) RNA ALFREDO+probe Ql (Unsp spec) Negative [employer] Other COVID + FLU Quick Testing Negative [facility] [employer] Other GLUCOSE - 1HRon 10-23-2021 Glucose [Mass/Vol] 83 mg/dL Normal 74-106 [facility] Comment on above: Performed By: #### G LU1HR #### [facility] [address] [address] [address] Cyril Hendricks CHLAMYDIA/GONOCOCCUS ALFREDO (SW AB/URINE/PAPon 10-05-2021 Chlamydia trachomatis, ALFREDO Negative Normal Negative [facility] Comment on above: Performed By: #### C T/NGNA #### [facility] [address] [place], [place] [address] Dr. Cyril Hendricks Neisseria gonorrhoeae, ALFREDO Negative Normal Negative [facility] Comment on above: Performed By: #### C T/NGNA #### [facility] [address] [address] [address] Cyril Hendricks VAGINITIS/VAGINOSIS DNA PROB Maurice 10-04-2021 Krista species Positive Abnormal Negative [facility] Comment on above: Performed By: #### H CVPCRR #### [facility] [address] [place] [address] Dr. Cyril Hendricks Gardnerella vaginalis Negative Normal Negative [facility] Comment on above: Performed By: #### H CVPCRR #### [facility] [address] [place] [address] Dr. Cyril Hendricks Trichomonas vaginalis Negative Normal Negative [facility] Comment on above: Performed By: #### H CVPCRR #### [facility] [address] [place] [address] Dr. Cyril Hendricks HEP B SURFACE ANTIGEN SCREEN on 10-03-2021 HBsAg Screen Negative Normal Negative [facility] Comment on above: Performed By: #### H CVPCRR #### [facility] [address] [place] [address] Dr. Cyril Hendricks HEPATITIS C VIRUS AB W/ REFL EX QUANTon 10-03-2021 HCV AB <0.1 Normal 0.0-0.[address] [facility] Comment on above: Performed By: #### H CVPCRR #### [facility] [address] [place] [address] Dr. Cyril Hendricks Interpretation: Comment Normal [facility] Comment on above: Result Comment: Nega tive Not infected with HCV, unless recent infection is suspected or other evidence exists to indicate HCV infection. Performed By: #### H CVPCRR #### [facility] [address] [place] [address] Dr. Cyril Hendricks HIV 1 AND 2 WITH REFLEXon HIV Screen 4th Generation wRfx Non-Reactive Normal Non Reactive [facility] Comment on above: Result Comment: HIV Negative HIV-1/HIV-2 antibodies and HIV-1 p24 antigen were NOT detected. There is no laboratory evidence of HIV infection. Performed By: #### H IV12 #### [facility] [address] [place] [address] Dr. Cyril Hendricks RPR QUANTon 10-03-2021 Rapid Plasma Reagin, Quant Non-Reactive Normal NonRea<1:1 [facility] Comment on above: Result Comment: Juliette brito Note: This test does not meet current guidelines for screening and diagnosis of syphilis. This test is intended for following treatment response in patients being treated for syphilis infection. To screen for syphilis infection, a reflex cascade that includes both RPR and a treponema-specific assay should be utilized, such as Treponema pallidum (Syphilis) Screening [place] (932400) or Rapid Plasma Reagin (RPR) Test With Reflex to Quantitative RPR and Confirmatory Treponema pallidum Antibodies (257064). Performed By: #### U MICRO, UACSIND #### [facility] [address] [place] [address] Dr. Cyril Hendricks RUBELLA AB IGGon 10-03-2021 Rubella Antibodies, IgG <0.90 Critically low Immune > 0.99 [facility] Comment on above: Result Comment: Non- immune <0.90 Equivocal 0.90 - 0.99 Immune >0.99 Performed By: #### U MICRO, UACSIND #### [facility] [address] [place] [address] Dr. Cyril Hendricks CBC AUTO DIFFon 10-02-2021 BASO # 0.1 103/ul Normal 0.0-0.1 [facility] Comment on above: Performed By: #### U MICRO, UACSIND #### [facility] [address] [place] [address] Dr. Cyril Hendricks Basophils/100 WBC (Bld) 0.4 % Normal 0.2-2.0 [facility] Comment on above: Performed By: #### U MICRO, UACSIND #### [facility] [address] [place] [address] Dr. Cyril Hendricks EO # 0.1 103/ul Normal 0.0-0.7 [facility] Comment on above: Performed By: #### U MICRO, UACSIND #### [facility] [address] [place] [address] Dr. Cyril Hendricks Eosinophils/100 WBC (Bld) 1.1 % Normal 0.9-7.0 [facility] Comment on above: Performed By: #### U MICRO, UACSIND #### [facility] [address] [place] [address] Dr. Cyril Hendricks Erythrocyte distribution width (RBC) [Ratio] 13.5 % Normal 11.0-15.0 [facility] Comment on above: Performed By: #### U MICRO, UACSIND #### [facility] [address] [place] [address] Dr. Cyril Hendricks Hematocrit (Bld) [Volume fraction] 34.5 % Critically low 36.0-48.0 [facility] Comment on above: Performed By: #### U MICRO, UACSIND #### [facility] [address] [place] [address] Dr. Cyril Hendricks Hemoglobin (Bld) [Mass/Vol] 12.0 g/dL Normal 12.0-16.0 [facility] Comment on above: Performed By: #### U MICRO, UACSIND #### [facility] [address] [place] [address] Dr. Cyril Hendricks IG # 0.04 10e3/ul Critically high 0.00-0.03 [facility] Comment on above: Performed By: #### U MICRO, UACSIND #### [facility] [address] [place] [address] Dr. Cyril Hendricks IG % 0.3 % Normal 0.0-0.[address] [facility] Comment on above: Performed By: #### U MICRO, UACSIND #### [facility] [address] [place] [address] Dr. Cyril Hendricks LYMPH # 2.6 103/ul Normal 1.2-3.[address] [facility] Comment on above: Performed By: #### U MICRO, UACSIND #### [facility] [address] [place] [address] Dr. Cyril Hendricks Lymphocytes/100 WBC (Bld) 21.3 % Normal 20.5-60.[address] [facility] Comment on above: Performed By: #### U MICRO, UACSIND #### [facility] [address] [address] [address] Cyril Hendricks MANUAL DIFF REQ NO Normal [facility] Comment on above: Performed By: #### U MICRO, UACSIND #### [facility] [address] [address] [address] Cyril Hendricks MCH (RBC) [Entitic mass] 32.5 pg Normal 26.7-34.0 [facility] Comment on above: Performed By: #### U MICRO, UACSIND #### [facility] [address] [address] [address] Cyril Hendricks MCHC (RBC) [Mass/Vol] 34.8 g/dL Normal 29.9-35.2 [facility] Comment on above: Performed By: #### U MICRO, UACSIND #### [facility] [address] [place] [address] Dr. Cyril Hendricks MCV (RBC) [Entitic vol] 93.5 fL Normal 81.0-99.0 [facility] Comment on above: Performed By: #### U MICRO, UACSIND #### [facility] [address] [address] [address] Cyril Hendricks MONO # 0.8 103/ul Normal 0.3-0.8 [facility] Comment on above: Performed By: #### U MICRO, UACSIND #### [facility] [address] [address] [address] Cyril Hendricks Monocytes/100 WBC (Bld) 6.2 % Normal 1.7-12.0 [facility] Comment on above: Performed By: #### U MICRO, UACSIND #### [facility] [address] [address] [address] Cyril Hendricks NEUT # 8.6 103/ul Critically high 1.4-6.5 [facility] Comment on above: Performed By: #### U MICRO, UACSIND #### [facility] [address] [place] [address] Dr. Cyril Hendricks Neutrophils/100 WBC (Bld) 70.7 % Normal 43.0-75.0 [facility] Comment on above: Performed By: #### U MICRO, UACSIND #### [facility] [address] [address] [address] Cyril Hendricks Platelet mean volume (Bld) [Entitic vol] 9.1 fL Critically low 9.5-13.5 [facility] Comment on above: Performed By: #### U MICRO, UACSIND #### [facility] [address] [address] [address] Cyril Hendricks PLT 257 103/ul Normal 150-[address] [facility] Comment on above: Performed By: #### U MICRO, UACSIND #### [facility] [address] [address] [address] Cyril Hendricks RBC 3.69 106/ul Critically low 4.20-5.40 [facility] Comment on above: Performed By: #### U MICRO, UACSIND #### [facility] [address] [address] [address] Cyril Hendricks WBC 12.2 103/ul Critically high 4.0-11.0 [facility] Comment on above: Performed By: #### U MICRO, UACSIND #### [facility] [address] [address] [address] Cyril Hendricks CULTURE URINEon 10-02-2021 CULTURE URINE Culture Observations: MODERATE GROWTH OF MIXED GENITAL DRAGAN. NO POTENTIAL PATHOGENS SEEN. Normal [facility] Comment on above: Performed By: #### H CVPCRR #### [facility] [address] [place] [address] Dr. Cyril Hendricks GLYCOHEMOGLOBIN A1Con 2021 ADA RECOMMENDATION SEE BELOW Normal [facility] Comment on above: Result Comment: ADA RECOMMENDED LIMIT 4.0 - 6.0 ADA THERAPEUTIC TARGET < 7.0 ACTION SUGGESTED > 7.0 Performed By: #### H CVPCRR #### [facility] [address] [place] [address] Dr. Cyril Hendricks Glucose [Mass/Vol] 80 mg/dL Normal [facility] Comment on above: Performed By: #### H CVPCRR #### [facility] [address] [place], [place] [address] Dr. Cyril Hendricks HbA1c (Bld) [Mass fraction] 4.4 % Critically low 4.5-6.2 [facility] Comment on above: Performed By: #### H CVPCRR #### [facility] [address] [place], [place] [address] Dr. Cyril Hendricks TYPE AND SCREENon 10-02-2021 TYPE AND SCREEN Negative Normal [facility] Comment on above: Performed By: #### H CVPCRR #### [facility] [address] [place], [place] [address] Dr. Cyril Hendricks US PREG PLACENTAon 2 [...] KABA Date: 2021-10-02 10:[address] [facility] US PREG ANATOMY SINGLEon US PREG [...] (44% by ultrasound, 29% by expected) FL/AC: [id number] FL/BPD: [id number] HC/AC: 1.098212 GESTATIONAL AGE: Age by EDC: 21 weeks, 3 days NOY by EDC: 01/12/2022 Age by current US: 21 weeks, 1 day NOY by current US: 01/14/2022 IMPRESSION: 1. Single live intrauterine with growth detailed above. 2. Posterior, low-lying placenta. Electronically authenticated by: MARS FRANKEL Date: 2021-09-04 16:30 Normal [facility] Vital Signs Date Time Vital Sign Value Performing Clinician Facility 02-03-2024 09:23-0400 Body temperature 97.88 [degF] Siva Schulte [facility] 02-03-2024 09:23-0400 Diastolic blood pressure 70 mm[Hg] Siva Schulte [facility] 02-03-2024 09:23-0400 Heart rate 85 /min Siva Schulte [facility] 02-03-2024 09:23-0400 Respiratory rate 18 /min Siva Schulte [facility] 02-03-2024 09:23-0400 SaO2% (BldA) [Mass fraction] 99 % Siva Schulte [facility] 02-03-2024 09:23-0400 Systolic blood pressure 106 mm[Hg] Siva Schulte [facility] 09-23-2023 09:16-0400 Body temperature 98.42 [degF] Wil Chandra [facility] 09-23-2023 09:16-0400 Diastolic blood pressure 68 mm[Hg] Wil Chandra [facility] 09-23-2023 09:16-0400 Heart rate 82 /min Wil Chandra [facility] 09-23-2023 09:16-0400 Respiratory rate 18 /min Wil Chandra [facility] 09-23-2023 09:16-0400 SaO2% (BldA) [Mass fraction] 97 % Wil Chandra [facility] 09-23-2023 09:16-0400 Systolic blood pressure 98 mm[Hg] Wil Chandra [facility] 08-27-2023 12:24-0400 Diastolic blood pressure 61 mm[Hg] [facility] 08-27-2023 12:24-0400 Heart rate 77 /min [facility] 08-27-2023 12:24-0400 Mean blood pressure 72 mm[Hg] [facility] 08-27-2023 12:24-0400 Respiratory rate 16 /min [facility] 08-27-2023 12:24-0400 SaO2% (BldA) [Mass fraction] 97 % [facility] 08-27-2023 12:24-0400 Systolic blood pressure 93 mm[Hg] [facility] 08-27-2023 11:30-0400 Diastolic blood pressure 69 mm[Hg] [facility] 08-27-2023 11:30-0400 Heart rate 74 /min [facility] 08-27-2023 11:30-0400 Mean blood pressure 82 mm[Hg] [facility] 08-27-2023 11:30-0400 Respiratory rate 16 /min [facility] 08-27-2023 11:30-0400 SaO2% (BldA) [Mass fraction] 99 % [facility] 08-27-2023 11:30-0400 Systolic blood pressure 107 mm[Hg] [facility] 08-27-2023 10:30-0400 Diastolic blood pressure 62 mm[Hg] [facility] 08-27-2023 10:30-0400 Heart rate 91 /min [facility] 08-27-2023 10:30-0400 Mean blood pressure 77 mm[Hg] [facility] 08-27-2023 10:30-0400 Respiratory rate 18 /min [facility] 08-27-2023 10:30-0400 SaO2% (BldA) [Mass fraction] 100 % [facility] 08-27-2023 10:30-0400 Systolic blood pressure 107 mm[Hg] [facility] 08-27-2023 09:41-0400 Body temperature 98.6 [degF] [facility] 08-27-2023 09:41-0400 Heart rate 80 /min [facility] 01-04-2023 00:03-0400 Body temperature 98.78 [degF] Siva Schulte [facility] 01-04-2023 00:03-0400 Diastolic blood pressure 54 mm[Hg] Siva Schulte [facility] 01-04-2023 00:03-0400 Heart rate 97 /min Siva Schulte [facility] 01-04-2023 00:03-0400 Mean blood pressure 70 mm[Hg] Siva Schulte [facility] 01-04-2023 00:03-0400 Respiratory rate 18 /min Siva Schulte [facility] 01-04-2023 00:03-0400 SaO2% (BldA) [Mass fraction] 94 % Siva Schulte [facility] 01-04-2023 00:03-0400 Systolic blood pressure 102 mm[Hg] Siva Eris [facility] 01-03-2023 23:00-0400 Body temperature 100.04 [degF] Siva Eris [facility] 01-03-2023 23:00-0400 Diastolic blood pressure 62 mm[Hg] Siva Eris [facility] 01-03-2023 23:00-0400 Heart rate 100 /min Siva Eris [facility] 01-03-2023 23:00-0400 Mean blood pressure 75 mm[Hg] Siva Eris [facility] 01-03-2023 23:00-0400 Systolic blood pressure 100 mm[Hg] Siva Eris [facility] 01-03-2023 22:42-0400 Body temperature 100.76 [degF] Siva Eris [facility] 01-03-2023 22:42-0400 Diastolic blood pressure 59 mm[Hg] Siva Eris [facility] 01-03-2023 22:42-0400 Heart rate 105 /min Siva Eris [facility] 01-03-2023 22:42-0400 Respiratory rate 20 /min Siva Eris [facility] 01-03-2023 22:42-0400 SaO2% (BldA) [Mass fraction] 99 % Siva Eris [facility] 01-03-2023 22:42-0400 Systolic blood pressure 96 mm[Hg] Siva Eris [facility] 10-02-2022 21:29-0400 Diastolic blood pressure 72 mm[Hg] PHYSICIAN [facility] 10-02-2022 21:29-0400 Heart rate 94 /min PHYSICIAN [facility] 10-02-2022 21:29-0400 Respiratory rate 18 /min PHYSICIAN [facility] 10-02-2022 21:29-0400 SaO2% (BldA) [Mass fraction] 98 % PHYSICIAN NO [facility] 10-02-2022 21:29-0400 Systolic blood pressure 141 mm[Hg] PHYSICIAN NO [facility] 10-02-2022 17:03-0400 Body height 170.18 cm PHYSICIAN NO [facility] 10-02-2022 17:03-0400 Body temperature 98.3 [degF] PHYSICIAN NO [facility] 10-02-2022 17:03-0400 Body weight 76.4 kg PHYSICIAN NO [facility] 09-25-2022 13:25-0400 Body height 170.18 cm Viet Yuri Other [employer] Other 09-25-2022 13:25-0400 Body mass index (BMI) [Ratio] 26.62 kg/m2 Viet Welch Other [employer] Other 09-25-2022 13:25-0400 Body temperature 98.2 [degF] Viet Welch Other [employer] Other 09-25-2022 13:25-0400 Body weight 77.11 kg Viet Welch Other [employer] Other 09-25-2022 13:25-0400 Diastolic blood pressure 68 mm[Hg] Viet Welch Other [employer] Other 09-25-2022 13:25-0400 Respiratory rate 18 /min Viet Welch Other [employer] Other 09-25-2022 13:25-0400 SaO2% (BldA) [Mass fraction] 98 % Viet Welch Other [facility] [employer] Other 09-25-2022 13:25-0400 Systolic blood pressure 107 mm[Hg] Viet Welch Other [facility] [employer] Other 09-06-2022 13:54-0400 Diastolic blood pressure 72 mm[Hg] Wil Corazon [facility] 09-06-2022 13:54-0400 Heart rate 60 /min Wil Corazon [facility] 09-06-2022 13:54-0400 Respiratory rate 16 /min Wil Corazon [facility] 09-06-2022 13:54-0400 SaO2% (BldA) [Mass fraction] 100 % Wil Corazon [facility] 09-06-2022 13:54-0400 Systolic blood pressure 103 mm[Hg] Wil Corazon [facility] 09-06-2022 11:41-0400 Diastolic blood pressure 65 mm[Hg] Wil Corazon [facility] 09-06-2022 11:41-0400 Heart rate 58 /min Wil Corazon [facility] 09-06-2022 11:41-0400 Mean blood pressure 77 mm[Hg] Wil Corazon [facility] 09-06-2022 11:41-0400 Respiratory rate 16 /min Wil Corazon [facility] 09-06-2022 11:41-0400 SaO2% (BldA) [Mass fraction] 100 % Wil Corazon [facility] 09-06-2022 11:41-0400 Systolic blood pressure 102 mm[Hg] Wil Chandra [facility] 09-06-2022 10:42-0400 Body temperature 98.24 [degF] Wil Chandra [facility] 09-06-2022 10:42-0400 bodymassindex 1.17 Wil Chandra [facility] Comment on above: Result [facility]: [facility] 10:42-0400 Diastolic blood pressure 71 mm[Hg] Wil Chandra [facility] 09-06-2022 10:42-0400 Heart rate 73 /min Wil Chandra [facility] 09-06-2022 10:42-0400 Height/Length Percentile 84.89 Wil Chandra [facility] Comment on above: Result Comment: ^~:!Percentile [facility] 09-06-2022 10:42-0400 Height/Length Z-Score 1.03 Wil Chandra [facility] Comment on above: Result Comment: ^[facility]-06-2022 10:42-0400 Respiratory rate 16 /min Wil Chandra [facility] 09-06-2022 10:42-0400 SaO2% (BldA) [Mass fraction] 98 % Wil Chandra [facility] 09-06-2022 10:42-0400 Systolic blood pressure 111 mm[Hg] Wil Chandra [facility] 09-06-2022 10:42-0400 weight 1.47 Wil Chandra [facility] Comment on above: Result Comment: ^[facility]-06-2022 10:42-0400 Weight Percentile 92.90 % Wil Chandra [facility] Comment on above: Result Comment: ^~:!Percentile Source -[facility] 08-14-2022 21:30-0500 Diastolic blood pressure 79 mm[Hg] Bob Llanos [facility] 08-14-2022 21:30-0500 Heart rate 87 /min Bob Llanos [facility] 08-14-2022 21:30-0500 Mean blood pressure 93 mm[Hg] Bob Llanos [facility] 08-14-2022 21:30-0500 Nursing Progress Note Reason Other: pt to US via stretcher at this time. Bob Llanos [facility] 08-14-2022 21:30-0500 Respiratory rate 16 /min Bob Llanos [facility] 08-14-2022 21:30-0500 SaO2% (BldA) [Mass fraction] 100 % Bob Llanos [facility] 08-14-2022 21:30-0500 Systolic blood pressure 120 mm[Hg] Bob Llanos [facility] 08-14-2022 19:20-0500 Body temperature 98.96 [degF] Bob Llanos [facility] 08-14-2022 19:20-0500 bodymassindex 1.17 Bob Llanos [facility] Comment on above: Result Comment: ^~:!ZScore Source [facility] 08-14-2022 19:20-0500 Diastolic blood pressure 61 mm[Hg] Bob Llanos [facility] 08-14-2022 19:20-0500 Heart rate 98 /min Bob Llanos [facility] 08-14-2022 19:20-0500 Height/Length Percentile 84.91 Bob Llanos [facility] Comment on above: Result Comment: ^~:!Percentile Source -[facility] 08-14-2022 19:20-0500 Height/Length Z-Score 1.03 Bob Llanos [facility] Comment on above: Result Comment: ^~:!ZScore [facility] 08-14-2022 19:20-0500 Respiratory rate 16 /min Bob Llanos [facility] 08-14-2022 19:20-0500 SaO2% (BldA) [Mass fraction] 99 % Bob Llanos [facility] 08-14-2022 19:20-0500 Systolic blood pressure 114 mm[Hg] Bob Llanos [facility] 08-14-2022 19:20-0500 weight 1.47 Bob Llanos [facility] Comment on above: Result Comment: ^~:!ZScore [facility] 08-14-2022 19:20-0500 Weight Percentile 92.94 % Bob Llanos [facility] Comment on above: Result Comment: ^~:!Percentile Source - [employer] 06-24-2022 13:30-0500 Body height 170.18 cm Viet Welch Other [employer] Other 06-24-2022 13:30-0500 Body mass index (BMI) [Ratio] 26.62 kg/m2 Viet Welch Other [employer] Other 06-24-2022 13:30-0500 Body temperature 97.8 [degF] Viet Welch Other [employer] Other 06-24-2022 13:30-0500 Body weight 77.11 kg Viet Welch Other [employer] Other 06-24-2022 13:30-0500 Diastolic blood pressure 63 mm[Hg] Viet Welch Other [employer] Other 06-24-2022 13:30-0500 Respiratory rate 18 /min Viet Welch Other [employer] Other 06-24-2022 13:30-0500 SaO2% (BldA) [Mass fraction] 98 % Viet Welch Other [employer] Other 06-24-2022 13:30-0500 Systolic blood pressure 97 mm[Hg] Viet Welch Other [employer] Other 11-13-2021 14:05-0400 Body height 170.18 cm Michael Oneil Other [employer] Other 11-13-2021 14:05-0400 Body mass index (BMI) [Ratio] 26.62 kg/m2 Michael Oneil Other [employer] Other 11-13-2021 14:05-0400 Body temperature 98.4 [degF] Michael Oneil Other [employer] Other 11-13-2021 14:05-0400 Body weight 77.11 kg Michael Oneil Other [employer] Other 11-13-2021 14:05-0400 Respiratory rate 18 /min Michael Oneil Other [employer] Other 11-13-2021 14:05-0400 SaO2% (BldA) [Mass fraction] 98 % Michael Oneil Other [employer] Other 11-06-2021 15:45-0400 Body height Kendra Witt Other [employer] Other 11-06-2021 15:45-0400 Body mass index (BMI) [Ratio] 26.62 kg/m2 Kendra Witt Other [employer] Other 11-06-2021 15:45-0400 Body weight 77.11 kg Kendra Witt Other [employer] Other 11-06-2021 15:45-0400 Respiratory rate 20 /min Kendra Witt Other [employer] Other 11-06-2021 15:45-0400 SaO2% (BldA) [Mass fraction] 98 % Kendra Witt Other [employer] Other Encounters Encounter Date Encounter Type Care Provider Facility Start: 03-01-2024 End: 03-01-2024 ambulatory JUVENAL MIRI Not Available Start: 02-16-2024 End: 02-16-2024 ambulatory GONSALO CORRAL Not Available Start: 02-03-2024 End: 02-03-2024 Emergency department patient visit Siva Schulte [facility] Start: 01-26-2024 End: 01-26-2024 ambulatory JUVENAL MIRI Not Available Start: 12-29-2023 End: 12-29-2023 ambulatory GONSALO ELLIS Not Available Start: 12-22-2023 End: 12-22-2023 ambulatory JUVENAL R [facility] Start: 12-01-2023 End: 12-01-2023 ambulatory JUVENAL MIRI Not Available Start: 11-10-2023 End: 11-10-2023 ambulatory JUVENAL [facility] Start: 10-27-2023 End: 10-27-2023 ambulatory GONSALO CORRAL Not Available Start: 09-29-2023 End: 09-29-2023 ambulatory JUVENAL RAMIREZO Not Available Start: 09-23-2023 End: 09-23-2023 Emergency department patient visit Wil Corazon [facility] Start: 09-04-2023 End: 09-04-2023 ambulatory JUVENAL THORPE Not Available Start: 08-27-2023 End: 08-27-2023 Emergency department patient visit Emily Browningyusef [facility] Start: 08-18-2023 End: 08-18-2023 ambulatory SELAM ELSA Facility:[facility] Start: 01-03-2023 End: 01-04-2023 Emergency department patient visit Siva Schulte [facility] Start: 12-12-2022 End: 12-12-2022 ambulatory Kenneth Lina Other [employer] Other Start: 12-12-2022 Telephone encounter Kenneth Lina [facility] [place] Start: 10-02-2022 End: 10-02-2022 Emergency department patient visit Jose Silverman Facility:[facility] Start: 10-02-2022 End: 10-02-2022 Emergency department patient visit PHYSICIAN SJ LERNER [facility] Work Phone: Start: 09-25-2022 End: 09-25-2022 ambulatory Viet Welch Other [employer] Other Start: 09-25-2022 Office outpatient visit 15 minutes Viet Welch [facility] Start: 09-06-2022 End: 09-06-2022 Emergency department patient visit Wil Chandra [facility] Start: 08-14-2022 End: 08-14-2022 Emergency department patient visit Bob Llanos [facility] Start: 07-11-2022 End: 07-11-2022 ambulatory ROSEANN CORRAL Facility:[facility] Start: 06-24-2022 End: 06-24-2022 ambulatory Viet Welch Other [employer] Other Start: 06-24-2022 Office outpatient visit 15 minutes Viet Welch [facility] Start: 01-11-2022 End: 01-11-[address] NIEVES LISTED REQUEST Facility:[facility] Start: 01-07-2022 End: 01-09-2022 Evaluation and management of inpatient DR RENATA GEORGES Facility:[facility] Start: 12-29-2021 End: 12-29-[address] JUVENAL THORPE Facility:[facility] Start: 12-19-2021 End: 12-19-[address] JUVENAL THORPE Facility:[facility] Start: 12-12-2021 End: 12-13-2021 [facility] Start: 12-12-2021 End: 12-12-2021 Subsequent hospital visit by physician SUSI De La Paz Start: 11-27-2021 End: 11-27-[address] SOFIA KABA Facility:[facility] Start: 11-13-2021 End: 11-13-2021 ambulatory Michael Oneil Other [employer] Other Start: 11-13-2021 Office outpatient visit 15 minutes Michael Oneil [facility] Start: 11-06-2021 End: 11-06-2021 ambulatory Kendra Witt Other [employer] Other Start: 11-06-2021 Office outpatient visit 25 minutes Kendra Witt [facility] Start: 10-23-2021 End: 10-24-[address] [...] Urine by Culture Urine Culture [facility] Start: 02-07-2022 Influenza vaccination Flu vaccine (# 1) [facility] Start: 01-09-2022 End: 01-09-2022 Patient encounter procedure 01/09/[address] [facility] Start: 01-02-2022 End: 01-02-2022 Patient encounter procedure 01/02/[address] [facility] Start: 12-26-2021 End: 12-26-2021 Patient encounter procedure 12/26/[address] [facility] Start: 12-20-2021 End: 12-20-2021 Patient encounter procedure 12/20/[address] [facility] Start: 2021 DTaP/Tdap/Td vaccine (1 - Tdap) DTaP/Tdap/Td vaccine (1 - Tdap) [facility] Start: 2020 Hepatitis C screening Hepatitis C sc reen [facility] Start: 2018 Screening for Chlamy nazanin trachomatis Chlamydia screen [facility] Start: 2017 HIV screening HIV screen [facility] [email or web address] Start: 2014 Depression Monitoring Depression Mon itoring [facility] [email or web address] Start: 2013 HPV vaccine (1 - 2-d ose series) HPV vaccine (1 - 2-dose series) [facility] [email or web address] Start: 09-16-2007 COVID-19 Vaccine (1) COVID-19 Vaccin e (1) [facility] Start: 09-16-2003 Varicella vaccine (1 of 2 - 2-dose childhood series) Varicella vaccine (1 of 2 - 2-dose childhood series) [facility] Patient Education Depression, Adult ED [facility] Work Phone: Patient referral [facility] Work Phone: End: 12-12-2021 Sjogrens syndrome-A extractable nuclear antibody [facility] Work [facility]: Comment on above: Once for 1 Occurrenc es starting 12/12/2021 until 12/12/2021 End: 12-12-2021 Sjogrens syndrome-B extractable nuclear antibody [facility] Work Phone: Comment on above: Once for 1 Occurrenc es starting 12/12/2021 until 12/12/2021 Immunizations Immunization Date Immunization Notes Care Provider Simona galarza NEGATED: Highlighted row has not occurred!11-05-2019 influenza, injectable, quadrivalent, contains preservative Kendra Witt Other [employer] Other NEGATED: Highlighted row has not occurred!04-10-2019 influenza virus vaccine, unspecified formulation Bob Llanos [facility] Payers Date Payer Category Payer Self-pay [id number] 2002 Unknown [id number] 2002 Unknown [id number] [id number] 2002 Unknown [id number] [id number] 2002 Unknown [id number] 2.16.84 [id number] 2002 Unknown [id number] 2.16.84 0.1.905854.3.579.2.593 2002 Unknown [id number] 2.16.84 0.1.259667.3.579.2.593 2002 Unknown [id number] 2.16.84 0.1.459799.3.579.2.593 2002 Unknown [id number] 2.16.84 0.1.230000.3.579.2.593 2002 Unknown [id number] 2.16.84 0.1.433660.3.579.2.593 2002 Unknown [id number] 2.16.84 0.1.293156.3.579.2.593 2002 Unknown [id number] 2.16.84 0.1.128196.3.579.2.593 2002 Unknown [id number] 2.16.84 0.1.506262.3.579.2.593 2002 Unknown [id number] 2.16.8 40.1.666383.3.579.2.1286 2002 Unknown [id number] 2.16.8 40.1.233740.3.579.2.1286 2002 Unknown [id number] 2.16.8 40.1.954222.3.579.2.1286 2002 Unknown [id number] 2.16.8 40.1.075213.3.579.2.727 2002 Unknown [id number] 2.16.8 40.1.011834.3.579.2.727 2002 Unknown [id number] 2.16.8 40.1.232001.3.579.2.727 2002 Unknown [id number] 2.16.8 40.1.894240.3.579.2.727 2002 Unknown [id number] 2.16.8 40.1.350073.3.579.2.727 2002 Unknown [id number] 2.16.84 0.1.312815.3.579.2.1259 2002 Unknown [id number] 2.16.84 0.1.216067.3.579.2.9 2002 Unknown [id number] 2.16.84 0.1.602370.3.579.2.9 2002 Unknown [id number] 2.16.84 0.1.632819.3.579.2.9 2002 Unknown [id number] 2.16.84 0.1.660074.3.579.2.9 2002 Unknown [id number] 2.16.84 0.1.989765.3.579.2.9 2002 Unknown [id number] 2.16.84 0.1.940039.3.579.2.9 2002 Unknown [id number] 2.16.84 0.1.531347.3.579.2.1259 1959 Unknown [id number] 2.1 6.840.1.783245.19 1959 Unknown [id number] Unknown [id number] 2.16.8 40.1.321439.3.579.2.531 Social History Date Type Detail Facility Sex Assigned At [facility] Start: 11-28-2021 Tobacco smoking stat [facility] Never smoked tobacco [employer] Phone: Start: 11-28-2021 Tobacco use and exposure Smokeless tobacco non-user [employer] Phone: Start: 12-12-2021 Alcohol intake Ex-drinker (finding) [facility] [employer] Work Phone: Start: 12-12-2021 Tobacco Comment no longer vapes [facility] [employer] Phone: Start: 04-21-2021 [employer] [employer] Work Phone: Start: 2002 Sex Assigned At Not on file [facility] [employer] Work Phone: Tobacco Current vaping o r e-cigarette use Smokeless Tobacco Use:. Vaping [facility] Tobacco smoking status No Smokin g Status Entered [facility] Start: 10-02-2022 Tobacco smoking stat us HIIS Smoker (finding) [facility] Start: 2002 Sex Assigned At Female [facility] Functional Status Date Assessment Result Facility 02-03-2024 Functional Status N/A [facility] 09-23-2023 Functional Status N/A [facility] 08-27-2023 Functional Status N/A [facility] 01-03-2023 Functional Status N/A [facility] 09-06-2022 Functional Status N/A [facility] 08-14-2022 Functional Status N/A [facility] Clinical Notes 11-06-2021 to 02-03-2024 Note Date & Type Note Facility 02-03-2024 Evaluation + Plan note Extrac ruby from: Title:ED Note Author:Duc Swanson PA-C te:02/03/24 Sore throat (J02.9: Acute ph aryngitis, unspecified) Viral URI (J06.9: Acute upper respiratory infection, unspecified) Orders: Group A Strep by PCR Rapid Strep w/rfx Diagnostic Tests Pending * Group A Strep by PCR 02/03/24 [facility] 08-27-2024 Hospital Discharge instructions Patient Education 02/03/2024 [...] medicines to help relieve symptoms, such as: Wxez-ocn-jgppokp cold medicines. Cough suppressants. Coughing is a [...] and other clear broths. General instructions Take ltos-xfq-bsbjnrv and prescription medicines only as told by [...] and water are not available, use hand licensing coordinator. Avoid touching your mouth, face, eyes, or [...] provider. Document Revised: 12/26/2021 Document Reviewed: 12/26/2021 Referral[employer] Patient Education 2022 [employer]. Follow Up Care 02/03/2024 09:23:13 With:Juvenal THORPE Address: [address] , [place] [address]- Business (1) When:02/06/2024 11:12:27 With:SELAM HUNTER Address: [address] [place] [address] Business (1) When:02/06/2024 11:12:21 [facility] 08-27-2024 NoteED Patient Education Note Infectious Disease [...] to help relieve symptoms, such as: ? Appd-tmx-jpihuxo cold medicines. ? Cough suppressants. Coughing is [...] other clear broths. General instructions ? Take nbiq-ggn-tenkikc and prescription medicines only as told by [...] soap and water are not available,use hand licensing coordinator. ? Avoid touching your mouth, face, eyes, [...] Mood. These symptoms m (more content not included)...[facility] 09-23-2023 Hospital Discharge instructions Patient Education 09/23/2023 [...] provider. Document Revised: 02/19/2021 Document Reviewed: 02/19/2021 ReferralMD Patient Education 2022 [employer]. Follow Up Care 09/23/2023 09:11:45 With:Juvenal THORPE Address: [address] [place] [address] Business (1) When:09/26/2023 11:44:07 [facility]03-20-2024 Hospital Discharge instructions Patient Education 08/27/2023 12:34:16 [...] provider. Document Revised: 01/09/2022 Document Reviewed: 01/09/2022 [employer]erralMD Patient Education 2022 [employer]. 08/27/2023 12:34:16 Urinary Tract Infection, Adult, Nody-tx-Gipr Urinary Tract Infection, Adult A urinary tract [...] Follow these instructions at home: Medicines Take qomp-obe-lrseotm and prescription medicines only as told by [...] provider. Document Revised: 01/05/2021 Document Reviewed: 01/05/2021 [employer]erral[employer] Patient Education 2022 [employer]. 08/27/2023 12:34:16 Subchorionic Hematoma Subchorionic Hematoma A [...] provider. Document Revised: 02/19/2021 Document Reviewed: 02/19/2021 ReferralMD Patient Education 2022 [employer]. Follow Up Care 08/27/2023 09:39:16 With:Juvenal THORPE Address: [address] [place] [address] Business (1) When:08/30/2023 12:05:10 With:SELAM HUNTER Address: [facility] [place] [address] Business (1) When:Within 3 Day(s) [facility]03-20-2024 Evaluation + Plan noteExtracted from: Title:ED Note [...] day(s), # 28 cap(s), Refills(s) 0, Pharmacy: [id number], 170, cm, 08/27/23 9:49:00 EDT, Height/Length Dosing, 78.7, kg, 08/27/23 9:49:00 EDT, Weight Dosing ABO/Rh Basic Metabolic Panel Beta hCG Quantitative CBC w/ Auto Diff eGFR Extra Blue Tube Extra SST Tube UA with Cult Rflx Urine Culture US 1st Trimester US Transvaginal Diagnostic Tests Pending * Urine Culture 08/27/23 [facility]07-29-2023 Hospital Discharge instructions Patient Education 01/04/2023 00:13:01 Pharyngitis, Exyn-zl-Tzxa Pharyngitis Pharyngitis is a sore throat (pharynx). [...] Follow these instructions at home: Medicines Take fnoz-jqc-xebgbcm and prescription medicines only as told by [...] and water are not available, use hand licensing coordinator. Do not touch your eyes, nose, or [...] provider. Document Revised: 08/22/2021 Document Reviewed: 08/22/2021 ReferralMD Patient Education 2022 [employer]. Follow Up Care 01/03/2023 22:32:55 With:Thony Carl Address: [address] [place] [address] [place] [id number] [facility] (1) When:01/06/2023 Comments:Follow-up with your primary care provider in 3 to 5 days. If symptoms worsen, do not improve, or new symptoms arise please report back to emergency department for further evaluation. [facility]07-28-2023 Evaluation + Plan noteExtracted from: Title:ED Note [...] q12hr, # 20 cap(s), Refills(s) 0, Pharmacy: [facility], 170, cm, 01/03/23 22:44:00 EDT, Height/Length Dosing, 75.3, kg, 01/03/23 22:44:00 EDT, Weight Dosing ondansetron, 4 mg = 1 tab(s), Oral, q8hr, PRN Nausea/Vomiting, # 12 tab(s), Refills(s) 0, Pharmacy: [facility], 170, cm, 01/03/23 22:44:00 EDT, Height/Length Dosing, 75.3, kg, 01/03/23 22:44:00 EDT, Weight Dosing ondansetron, 12 mg = 3 tab(s), Tab-Dis, Oral, Once, Stop date 01/03/23 23:45:00 EDT, STAT, Start date 01/03/23 23:45:00 EDT, 01/03/23 23:45:00 EDT Automated Diff Basic Metabolic Panel Beta hCG Quantitative CBC w/ Auto Diff eGFR Hepatic Function Panel Lipase Level [facility]04-19-2023 Evaluation note* Encounter Date Diagnosis Assessment Notes [...] of symptoms occur by end of treatment. [employer] Other 03-31-2023 Hospital Discharge instructions Patient Education [...] Follow these instructions at home: Medicines Take ocho-mqw-jzygkjg and prescription medicines only as told by [...] important. Where to find more information [employer]: www.acog.org [place] [...] Document Reviewed: 07/01/2017 Elsevier Patient Education 2019 [employer]. Follow Up Care 09/06/2022 10:42:16 With:Juvenal THORPE Address: [address] [place] [id number]- Business (1) When:09/09/2022 13:46:05 [facility]03-09-2023 Hospital Discharge instructions Patient Education 08/14/2022 22:12:46 Abdominal Pain During , Cuvu-fb-Gzby Abdominal Pain During Belly (abdominal) pain is [...] keep your pee (urine) pale yellow. Take qqzy-dcb-xjttppu and prescription medicines only as told by [...] 05/14/2010 Document Revised: 09/13/2019 Document Reviewed: 08/28/2017 ReferralMD Patient Education 2020 [employer]. 08/14/2022 22:12:46 Abdominal Pain, Adult, Czli-uz-Xgtp Abdominal Pain, Adult Many things can cause belly (abdominal) pain. Most times, belly pain is not dangerous. Many cases of belly pain can be watched and treated at home. Sometimes, though, belly pain is serious. Your doctor will try to find the cause of your belly pain. Follow these instructions at home: Medicines Take phfd-kbd-imjtgic and prescription medicines only as told by [...] your belly pain for any changes. Take ddzu-kbe-hgseltk and prescription medicines only as told by [...] 11/11/2008 Document Revised: 10/04/2019 Document Reviewed: 10/04/2019 ReferralMD Patient Education 2020 [employer]. Follow Up Care 08/14/2022 18:41:38 With:Juvenal THORPE Address: [address] , [place] [address]- Business (1) When:08/17/2022 Comments:Follow-up with Dr. Thorpe for further evaluation of your . With:Juventino Carbajal Address: [address] [place] [address]- When:08/17/2022 Comments:Follow-up with your primary care provider in 3 to 5 days. If symptoms worsen, do not improve, or new symptoms arise please report back to emergency department for further evaluation. [facility]01-16-2023 Evaluation note* Encounter Date Diagnosis Assessment Notes [...] return precautions. Jun, Cough (ICD-10 - R05.9) [employer] Other 06-07-2022 Evaluation note* Encounter Date Diagnosis [...] Pt understood and agreed to tx plan. [facility] [employer] Other [id number] Evaluation note* Encounter Date Diagnosis Assessment Notes [...] condition October, Sore throat (ICD-10 - J02.9) [facility] [employer] Other Evaluation + Plan note No data available for this section [facility] assessment information available [facility] Work Phone: Evaluation noteNo InformationNortUPMC [facility] [employer] Other History general Narrative - Reported* Type Description Date Medical History fx lt elbow at age 7 Surgical History surgical repair of left elbow f racture at age 7 Hospitalization History see surgical hx [facility] [employer] Other Progress note No data available for this section [facility] Summary Purpose Family History No Family History [...] section and content) DATE CREATED AUTHOR 01/05/2022 [facility] DATE CREATED AUTHOR AUTHOR'S ORGANIZ ATION 07/15/2022 [facility] DATE CREATED AUTHOR AUTHOR'S ORGANIZ ATION 10/10/2022 [facility] DATE CREATED AUTHOR AUTHOR'S ORGANIZ ATION 12/26/2023 [facility] DATE CREATED AUTHOR AUTHOR'S ORGANIZ ATION 02/05/2024 [facility] DATE CREATED AUTHOR AUTHOR'S ORGANIZ ATION 02/06/2024 [facility] DATE CREATED AUTHOR AUTHOR'S ORGANIZ ATION 03/03/2024 [facility] [employer] Care Teams (unrecognized sec tion and content) Personnel Name: ELSA VELEZ SELAM J Address: Address: [address] [place] [address] Team Status: Active Member Role Status Dates [...] BE BASED ON THE PRIMARY CLINICAL RECORDS. [facility], [facility]. provides no warranty or guarantee of the accuracy or completeness of information in this document.
[2024-03-04 16:13] VITALS: BP 117/61; PULSE 90
== END 2024-03-04 16:35 | disposition home or self-care (01) ==
LOC: FBCO 07:00 → FBC 16:09
PROVIDERS: Visit Provider Obstetrics & Gynecology
DX: O26.893 Other specified pregnancy related conditions, third trimester (principal)
CPT/HCPCS: 59025

== ENCOUNTER 2024-03-08 07:31 | Outpatient (OUT) | payer OTHER, SELFPAY ==
--- OUTSIDE RECORDS SUMMARY | 2024-03-08 07:33 | XMS_ITS | CCD ---
Author Organization [facility] Inform ion [facility] Care Team Providers Care Candy Cooker Helper Name Role Phone Kendra Witt Unavailable Michael [...] Unavailable ZIEBER, DR MARS Mccarthy Consult[employer] Unavailable MINERAL, DR SOFIA Hull Consulting Unavailable REQUEST, NONE [...] Provider Unava MD Jose Moody Emergency Provider [phone] Jose Silverman Attending Unavailable Jose Silverman Admitting [...] Medication Allergies] Propensity to adverse reactions (disorder) [facility] Repository Medications Current Medications Medication [...] day(s), # 28 cap(s), Refills(s) 0, Pharmacy: [facility], 170, cm, 08/27/23 9:49:00 EDT, Height/Length Dosing, 78.7, kg, 08/27/23 9:49:00 EDT, Weight Dosing Start Date: 08/27/23 Stop Date: 09/03/23 Status: Ordered Start: 01-03-2023 take 1 capsule by [facility] every twelve hours Keflex 500 mg Cap 500 mg = 1 cap(s), Oral, q12hr, # 20 cap(s), Refills(s) 0, Pharmacy: [facility], 170, cm, 01/03/23 22:44:00 EDT, Height/Length Dosing, 75.3, kg, 01/03/23 22:44:00 EDT, Weight Dosing Start Date: 01/03/23 Status: Ordered Citalopram (2 sources) Serotonin Reuptake Inhibitor Citalopram Hydrobromide Active dexamethasone 1 mg/ml / neomycin 3.5 mg/ml / polymyxin b 67428 unt/ml ophthalmic suspension (2 sources) Aminoglycoside Antibacterial, Polymyxin-class Antibacterial, Corticosteroid Start: 09-26-19 take 1 drop(s) into the eye(s) four times daily Maxitrol 3.5-12470-6.1 1 drop into affected eye Ophthalmic Four [...] 3 hrs for 2 days Jun, Active Time (No Known Home Meds) (1 source) Start: 06-26-2021 Time (No Known Home Meds) Active June 26, [...] Nausea/Vomiting, # 12 tab(s), Refills(s) 0, Pharmacy: [facility], 170, cm, 01/03/23 22:44:00 EDT, Height/Length Dosing, 75.3, kg, 01/03/23 22:44:00 EDT, Weight Dosing Start Date: 01/03/23 Status: Ordered Start: 06-09-2019 take 1 tablet by faby th three times daily Zofran ODT 4 mg Tab-Dis 4 mg = 1 tab(s), Oral, TID, # 15 tab(s), Refills(s) 0, Pharmacy: [facility] Start Date: 06/09/19 Status: Ordered [...] take 450 mg by mouth twice daily Waves Carbonate Discontinued 450 MG PO Twice daily [...] Grp A Strp Intrl Ctrl Pass Normal [facility] Comment on above: Order Comment: Order Added on by Discern Rule. Performed By: #### 1 [id number] #### [facility] Laboratory [address] [place] [address] S. pyogenes DNA ALFREDO+probe Ql (Throat) Negative Normal [facility] Comment on above: Order Comment: Order Added on by Discern Rule. Result Comment: Test ing performed using DNA amplification. Performed By: #### 1 [id number] #### [facility] [address] [place] [address] ED Clinical Summaryon 2023 ED Clinical Summary ED Clinical Summary [address] [address] ED Clinical Summary Person Information Name: KAILYN ACKERMAN [facility]ena/[facility] Age: 23 Years : 2000 Sex: Female Language: Turkmen PCP: SELAM HUNTER CNP Marital Status: Single Phone: [phone] Visit Id: Visit Reason: Headache; Body aches; [...] 02/03/2024 11:17:23 02/03/2024 11:17:23 02/03/2024 11:17:23 ADDRESS: [address] [place] [phone] PHYS DOC NOTES: MEDICAL INFORMATION: Prescriptions Given: [...] Adult Follow up: With: Address: [facility] [address] [place] [address] [place] [address] Business (1) In 3 days 02/06/2024 With: Address: When: [place] [address] Business (1) In 3 days 02/06/2024 DIAGNOSIS: Sore throat; Viral URI Normal [facility] ED Note-Physicianon 02-03-20 ED Note-Physician ED Note-Physician [...] URI and will continue to follow-up with HEALTH CENTER MANAGER for further evaluation and management. We discussed [...] days 02/06/2024 (more content not included)... Normal [facility] Comment on above: Result Comment: Elec tronically Signed By: Duc Swanson PA-C\.br\Date and Time Signed: 02/03/24 13:23 EDT\.br\Electronically Co-Signed By: Siva Schulte DO\.br\Date and Time Co-Signed: 02/03/24 14:44 EDT ED Patient Summaryon 024 ED Patient Summary ED Patient Summary [place] [id number] Patient Discharge Instructions Person Information Name: GARCÍA ACKERMANNZIClement Gordon Age: 23 Years Arrival Date: 02/03/2024 09:21:41 Discharge Diagnosis: Sore throat; Viral URI Primary Care Physician: SELAM HUNTER CNP Provider Information Primary Provider: Siva Schulte DO Advanced Plaster Helper:Duc Swanson PA-C The exam and treatment you received in the Emergency Department were for an urgent problem and are not intended as complete care. It is important that you follow up with a doctor, nurse practitioner, or physician?s assistant professor in family studies for ongoing care. If your symptoms become worse or you do not improve as expected and you are unable to reach your usual health care provider, you should return to the Emergency Department. We are available 24 hours a day. KAILYN ACKERMAN has been given the following list of patient education materials, prescriptions and follow-up instructions: Follow-up Instructions: With: Address: When: Juvenal THORPE [facility], [address] [place] [address] [place] [address] Business (1) In 3 days 02/06/2024 With: Address: When: [place] [address] Business (1) In 3 days 02/06/2024 In the event that this physician does not participate in your insurance network, please consult with your insurance company to find a nearby participating provider. Patient Education Materials: Upper Respiratory Infection, Adult A MESSAGE TO ALL PATIENTS REGARDING OPIOIDS PRESCRIPTION OPIOIDS: WHAT YOU NEED TO KNOW Prescription opioids can be used to help relieve fqtzdlhz-pl-mcjvhw pain and are often prescribed following a [...] of op (more content not included)... Normal [facility] MICRO OTHER TESTSOrdered By: Nita Delgadillo on 02-03-2024 S. pyogenes Ag IA.rapid Ql (Throat) Negative (02/03/24 11:07 AM) Normal Negative [facility] Sero MICRO OTHER TESTSOrdered By: Asuncion Goncalves on 02-03-2024 Rapid COV Int NEG Ctl Pass (02/03/24 9:30 AM) Normal [facility] Man Sero Rapid COV Int POS Ctl Pass (02/03/24 9:30 AM) Normal [facility] Sero SARS-CoV+SARS-CoV-2 (COVID-19) Ag IA.rapid Ql (Resp) Not Detected 1 (02/03/24 9:30 AM) Normal Not Detected [facility] Man Sero Comment on above: Interpretive Data: Gato multani Appet[employer] Veritor System for Rapid Detection of SARS-CoV-2 [...] Int NEG Ctl Pass Normal [facility] Comment on above: Performed By: #### 2 [id number] #### [facility] [address] [place] [address] Rapid COV Int POS Ctl Pass Normal [facility] Comment on above: Performed By: #### 2 [id number] #### [facility] [address] [place] [address] SARS-CoV+SARS-CoV-2 (COVID-19) Ag IA.rapid Ql (Resp) Not detected Normal Not Detected [facility] Comment on above: Result Comment: The Viximoitor? System for Rapid Detection of SARS-CoV-2 is [...] or revoked sooner. Performed By: #### 2 [id number] #### [facility] [address] [place] [address] Rapid Strep w/rfxon 02-03-20 24 S. pyogenes Ag IA.rapid Ql (Throat) Negative Normal Negative [facility] Comment on above: Performed By: #### 2 [id number] #### [facility] [address] [place] [address] ED Note-Physicianon 09-26-19 24 ED Note-Physician Basic [...] than 90,000. Ultrasound was obtained discussed with data center technician. Intrauterine consistent with stated gestational age. Stable heart rate. Patient continues to demonstrate subchorionic hematoma. Also left-sided ovarian cyst similar to previous. Results were discussed with the patient. She is discharged home to continue pelvic rest and follow-up with HEALTH CENTER MANAGER. Patient was encouraged to return to the [...] Juvenal THORPE In 3 days 09/26/2023 EDT [facility] [address] [facility] [place] [address]- Business (1) Additional Instructions: Patient Education Subchorionic [...] made to ensure accuracy, however, inadvertently computerized care program director mistakes may be present. Appropriate healthcare PPE [...] Yes., 04/10/2019 Lab Results Beta hCG Qnt: 81757 mIU/mL High (09/23/23 09:28:00) Diagnostic Results No qualifying data available. Normal [facility] Comment on above: Result Comment: Elec tronically Signed By: Mandie CHUNG, Venkat\.br\Date and Time Signed: 09/23/23 11:45 EDT\.br\Electronically Co-Signed By: Wil Chandra DO\.br\Date and Time Co-Signed: 09/26/23 07:37 EDT [facility] [place] 09-23-20[place] [address] m[IU]/mL High 1-3 F [facility] Comment on above: Result Comment: 'F N ON < 1 - 3' ' 0.2 - 1 WEEK = 5 TO 50' ' 1 - 2 WEEKS = 50 - 500' ' 2 - 3 WEEKS = 100 - 5000' ' 3 - 4 WEEKS = 500 - 10004' ' 4 - 5 WEEKS = 1000 - 20938' ' 5 - 6 WEEKS = 67332 - 893396' ' 6 - 8 WEEKS = 40181 - 831207' ' 8 - 12 WEEKS = 56864 - 817074' Performed By: #### 2 [id number] ####[facility] [address] [place] [address] CHEMISTRYOrdered By: SYSTEM SYSTEM on 09-23-2023 [place] [address] m[IU]/mL High 1 - 3 mIU/mL [facility] Comment on above: Result Comment: 'F N ON < 1 - 3' ' 0.2 - 1 WEEK = 5 TO 50' ' 1 - 2 WEEKS = 50 - 500' ' 2 - 3 WEEKS = 100 - 5000' ' 3 - 4 WEEKS = 500 - 50761' ' 4 - 5 WEEKS = 1000 - 22391' ' 5 - 6 WEEKS = 15403 - 247190' ' 6 - 8 WEEKS = 00781 - 285191' ' 8 - 12 WEEKS = 60845 - 773294' Consent for Treatmenton 09-07 Consent for Treatment [id number]#1.00TIFF Normal [facility] Discharge Instructionson Discharge Instructions [id number]#[id number] Normal [facility] ED Clinical Summaryon 2023 ED Clinical Summary [address] [address] ED Clinical Summary Person Information Name: KAILYN ACKERMAN Heena/[facility] Age: 23 Years : 2000 Sex: Female Language: Turkmen PCP: NONE, XXXX Marital Status: Single Phone: [phone] MRN: Visit Id: Visit Reason: Back pain; [...] 09/23/2023 11:52:16 09/23/2023 11:52:16 09/23/2023 11:52:16 ADDRESS: [address] [place] [phone] PHYS DOC NOTES: MEDICAL INFORMATION: Prescriptions Given: [...] Follow up: With: Address: When: Juvenal THORPE [facility], [address] [place] [address] [place] [address] Business (1) In 3 days 09/26/2023 DIAGNOSIS: Other antepartum hemorrhage, unspecified trimester; Subchorionic bleed; Vaginal bleeding in Normal [facility] ED Patient Education Noteon 09-23-2023 [...] provider. Document Revised: 02/19/2021 Document Reviewed: 02/19/2021 [employer] Consolidated Patient Education ? 2022 [employer]. Normal [facility] ED Patient Summaryon 024 ED Patient Summary [place] [id number] Patient Discharge Instructions Person Information Name: KAILYN ACKERMAN Age: 23 Years Arrival Date: 09/23/2023 09:10:07 Discharge Diagnosis: Other antepartum hemorrhage, unspecified trimester; Subchorionic bleed; Vaginal bleeding in Primary Care Physician: NONE, XXXX Provider Information Primary Provider: Wil Chandra DO Advanced Plaster Helper:Venkat Leal PA-C The exam and treatment you received in the Emergency Department were for an urgent problem and are not intended as complete care. It is important that you follow up with a doctor, nurse practitioner, or physician?s assistant professor in family studies for ongoing care. If your symptoms become worse or you do not improve as expected and you are unable to reach your usual health care provider, you should return to the Emergency Department. We are available 24 hours a day. KAILYN ACEKRMAN has been given the following list of patient education materials, prescriptions and follow-up instructions: Follow-up Instructions: With: Address: When: Juvenal THORPE [facility], [address] [place] [address] [place] [address] Business (1) In 3 days 09/26/2023 In the event that this physician does not participate in your insurance network, please consult with your insurance company to find a nearby participating provider. Patient Education Materials: Subchorionic Hematoma A MESSAGE TO ALL PATIENTS REGARDING OPIOIDS PRESCRIPTION OPIOIDS: WHAT YOU NEED TO KNOW Prescription opioids can be used to help relieve snouygqp-jb-extqrh pain and are often prescribed following a [...] health care p (more content not included)... [facility] Prescriptions/Work Noteson 0 09-23-2023 Prescriptions/Work Notes [id number]#[id number] [facility] US 1st Trimesteron 09-23-2023 1st Trimester Exam [...] least 66% of the gestational sac circumference. [place] Rump Length: 3.2 cm, which corresponds Composite [...] Size = Dates Uterus Position Anteverted Normal [facility] C Urineon 08-29-2023 Bacteria identified [...] Locations R1: This test was performed at: [facility], [address] [place] [address], [address] , , Normal [facility] Comment on above: Performed By: #### 4 [id number] ####[address] [address] ABO/Rhon 08-27-2023 ABO/Rh Positive Invalid Interpretation Code [facility] Comment on above: Performed By: #### 2 [id number] ####[facility] [address] [place] [address] BLOOD BANKOrdered By: Liza Xavier on 08-27-2023 ABO/Rh Interp Positive Invalid Interpretation Code [facility] BB Subsection BMPon 08-27-2023 Anion gap [Moles/Vol] 11 mmol/L Normal 6-16 [facility] Comment on above: Performed By: #### 1 [id number], [id number], [id number] ####[facility] [address] [place] [address] Calcium [Mass/Vol] 9.3 mg/dL Normal 8.9-11.1 [facility] Comment on above: Performed By: #### 1 [id number], 2269606, 6654433 ####[facility] [address] [place] [address] Chloride [Moles/Vol] 104 mmol/L Normal 101-111 [facility] Comment on above: Performed By: #### 1 [id number], 0596145, 6724645 ####[facility] [address] [place] [address] CO2 [Moles/Vol] 24 mmol/L Normal 21-31 [facility] Comment on above: Performed By: #### 1 [id number], 2003345, 7631257 ####[facility] [address] [place] [address] Creatinine [Mass/Vol] 0.6 mg/dL Normal 0.5-1.3 [facility] Comment on above: Performed By: #### 1 5560197, 3599779, 7907645 ####[facility] [address] [place] [address] Glucose [Mass/Vol] 87 mg/dL Normal 55-199 [facility] Comment on above: Performed By: #### 1 [id number], 6553644, 5530657 ####[facility] [address] [place] [address] Potassium [Moles/Vol] 3.7 mmol/L Normal 3.5-5.3 [facility] Comment on above: Performed By: #### 1 2668595, 6290838, 8403810 ####[facility] [address] [place] [address] Sodium [Moles/Vol] 135 mmol/L Normal 135-145 [facility] Comment on above: Performed By: #### 1 6354011, 4951856, 7510787 ####[facility] [address] [place] [address] Urea nitrogen [Mass/Vol] 8 mg/dL Normal 5-21 [facility] Comment on above: Performed By: #### 1 1728101, 4745262, 9268430 ####[facility] [address] [place] [address] Urea nitrogen/Creatinine [Mass ratio] 13 No Units Normal 10-20 [facility] Comment on above: Performed By: #### 1 [id number], 6285812, 5510481 ####[address] [address] BhCG [place] 08-27-2023 [place] [address] m[IU]/mL High 1-3 F [facility] Comment on above: Result Comment: 'F N ON < 1 - 3' ' 0.2 - 1 WEEK = 5 TO 50' ' 1 - 2 WEEKS = 50 - 500' ' 2 - 3 WEEKS = 100 - 5000' ' 3 - 4 WEEKS = 500 - 64737' ' 4 - 5 WEEKS = 1000 - 92938' ' 5 - 6 WEEKS = 59841 - 240645' ' 6 - 8 WEEKS = 24107 - 306196' ' 8 - 12 WEEKS = 83737 - 460580' Performed By: #### 2 [id number] ####[facility] [address] [place] [address] CBC w/ Auto Diffon 4 Basophils/100 WBC (Bld) 0.6 % Normal 0.0-2.0 [facility] Comment on above: Performed By: #### 1 1793581, 4762876, 2559641 ####[facility] [address] [place] [address] Basophils/Leukocytes Auto (Bld) [Pure # fraction] 0.0 E9/L Normal 0.0-0.2 [facility] Comment on above: Performed By: #### 1 5420227, 4018201, 1762618 ####[address] [address] Eosinophils (Bld) [#/Vol] 0.1 E9/L Normal 0.0-0.5 [facility] Comment on above: Performed By: #### 1 7451119, 1477025, 6885975 ####[address] [address] Eosinophils/100 WBC (Bld) 2.0 % Normal 0.0-8.0 [facility] Comment on above: Performed By: #### 1 4678530, 9163545, 7441144 ####[address] [address] Erythrocyte distribution width (RBC) [Ratio] 15.0 % High 10.9-14.2 [facility] Comment on above: Performed By: #### 1 7363578, 5628652, 1026903 ####[address] [address] Hematocrit (Bld) [Volume fraction] 37.4 % Normal 34.0-46.0 [facility] Comment on above: Performed By: #### 1 5501494, 5699129, 2618388 ####[address] [address] Hemoglobin (Bld) [Mass/Vol] 12.7 g/dL Normal 12.0-16.0 [facility] Comment on above: Performed By: #### 1 9281208, 1555228, 1947797 ####[address] [address] Lymphocytes (Bld) [#/Vol] 2.0 E9/L Normal 1.0-4.0 [facility] Comment on above: Performed By: #### 1 7992931, 3116591, 1562676 ####[address] [address] Lymphocytes/100 WBC (Bld) 28.1 % Normal 14.0-50.0 [facility] Comment on above: Performed By: #### 1 0890069, 2085036, 6763533 ####[address] [address] MCH (RBC) [Entitic mass] 28.4 pg Normal 27.0-34.0 [facility] Comment on above: Performed By: #### 1 4232641, 3664466, 2655010 ####[address] [address] MCHC (RBC) [Mass/Vol] 33.8 g/dL Normal 31.4-36.0 [facility] Comment on above: Performed By: #### 1 2135361, 1864502, 3055047 ####[address] [address] MCV (RBC) [Entitic vol] 84.0 fL Normal 80.0-100.0 [facility] Comment on above: Performed By: #### 1 9874232, 3417143, 5703465 ####[place] 6[address]657 Monocytes (Bld) [#/Vol] 0.5 E9/L Normal 0.2-1.0 [facility] Comment on above: Performed By: #### 1 4250274, 7754586, 0855102 ####[address] [address] Neutrophils (Bld) [#/Vol] 4.5 E9/L Normal 2.0-7.5 [facility] Comment on above: Performed By: #### 1 1235381, 1387393, 1249175 ####[address] [address] Neutrophils/100 WBC (Bld) 61.9 % Normal 36.0-75.0 [facility] Comment on above: Performed By: #### 1 5274512, 4042787, 2799765 ####[place] [address] [place] [address] Platelet mean volume (Bld) [Entitic vol] 7.9 fL Normal 6.4-10.8 [facility] Comment on above: Performed By: #### 1 5277747, 2924071, 3661685 ####[address] [address] Platelets (Bld) [#/Vol] 252.0 E9/L Normal 150.0-500.0 [facility] Comment on above: Performed By: #### 1 0255694, 2694086, 9887781 ####[place] [address] [place] [address] RBC (Bld) [#/Vol] 4.5 E12/L Normal 4.3-5.9 [facility] Comment on above: Performed By: #### 1 3821723, 2764202, 5362308 ####[address] [address] WBC corrected for nucl RBC Auto (Bld) [#/Vol] 7.2 E9/L Normal 4.0-11.0 [facility] Comment on above: Performed By: #### 1 5609595, 4058877, 1501330 ####[facility] [address] [place] [address] CHEMISTRYOrdered By: SYSTEM SYSTEM on 08-27-2023 Anion [...] 199 mg/[place] [address] m[IU]/mL High 1 - 3 mIU/mL [facility] Comment on above: Result Comment: 'F N ON < 1 - 3' ' 0.2 - 1 WEEK = 5 TO 50' ' 1 - 2 WEEKS = 50 - 500' ' 2 - 3 WEEKS = 100 - 5000' ' 3 - 4 WEEKS = 500 - 83916' ' 4 - 5 WEEKS = 1000 - 27978' ' 5 - 6 WEEKS = 82503 - 801254' ' 6 - 8 WEEKS = [address] - 892639' ' 8 - 12 WEEKS = 47[address] - 998355' Potassium [Moles/Vol] 3.7 mmol/L Normal 3.5 - 5.3 mmol/L [facility] Sodium [Moles/Vol] 135 mmol/L Normal 135 - 145 mmol/L [facility] Urea nitrogen [Mass/Vol] 8 mg/dL Normal 5 - 21 mg/d L [facility] Urea nitrogen/Creatinine [Mass ratio] 13 mg/mg Normal 10 - 20 Remisol Chem Consent for Treatmenton 08-08 Consent for Treatment [id number] Normal [facility] Discharge Instructionson Discharge Instructions [id number] Normal [facility] ED Clinical Summaryon 2023 ED Clinical Summary [place] [id number] ED Clinical Summary Person Information Name: KAILYN ACKERMAN [facility] Age: 22 Years : 2000 Sex: Female Language: Turkmen PCP: SELAM HUNTER CNP Marital Status: Single Phone: [phone] MRN: Visit Id: Visit Reason: Vaginal bleeding [...] 08/27/2023 12:34:16 08/27/2023 12:34:16 08/27/2023 12:34:16 ADDRESS: [address] [place] [phone] PHYS DOC NOTES: MEDICAL INFORMATION: Prescriptions Given: Medications to Continue Taking That Have Changed [facility], [address] [place], [place] [id number], [phone] START: cephalexin (Keflex 500 mg Cap) 1 [...] Urinary Tract Infection; Urinary Tract Infection, Adult, Cmqp-pa-Jtwk; Subchorionic Hematoma Follow up: With: Address: When: Juvenal THORPE [facility], [address] [place] [address] [place], [place] [id number] Business (1) In 3 days 08/30/2023 With: Address: When: SELAM HUNTER [address] [place] [address] Business (1) In 3 days DIAGNOSIS: Other antepartum hemorrhage, unspecified trimester; Subchorionic bleed; UTI (urinary tract infection) during ; Vaginal bleeding in Normal [facility] ED Note-Physicianon 08-27-19 ED Note-Physician [...] and Complexity of Problems Differential Diagnosis: [] [facility] Data External documents reviewed: [] My EKG [...] day(s), # 28 cap(s), Refills(s) 0, Pharmacy: [facility], 170, cm, 08/27/23 9:49:00 EDT, Height/Length [...] Juvenal THORPE In 3 days 08/30/2023 EDT [facility] [address] [facility] , [place] [address]- Business (1) Additional Instructions: SELAM HUNTER In 3 days [address] [place] [address]- Business (1) Additional Instructions: Patient Education and Urinary Tract Infection Urinary Tract Infection, Adult, Nmmg-pa-Uyof Subchorionic Hematoma Attestation Patient seen and evaluated by the physician assistant professor in family studies. Attending physician was present in the emergency department and s (more content not included)... Normal [facility] Comment on [...] provider. Document Revised: 01/09/2022 Document Reviewed: 01/09/2022 [employer] Patient Education ? 2022 [employer]. Urinary Tract Infection, Adult A urinary tract [...] swelling (inflammation) (more content not included)... Normal [facility] ED Patient Summaryon 024 ED Patient Summary [place] [id number] Patient Discharge Instructions Person Information Name: KAILYN ACKERMAN Age: 22 Years Arrival Date: 08/27/2023 09:37:12 Discharge Diagnosis: Other antepartum hemorrhage, unspecified trimester; Subchorionic bleed; UTI (urinary tract infection) during ; Vaginal bleeding in Primary Care Physician: SELAM HUNTER CNP Provider Information Primary Provider: Emily Harper M.D. Advanced Plaster Helper:None The exam and treatment you received in the Emergency Department were for an urgent problem and are not intended as complete care. It is important that you follow up with a doctor, nurse practitioner, or physician?s assistant professor in family studies for ongoing care. If your symptoms become worse or you do not improve as expected and you are unable to reach your usual health care provider, you should return to the Emergency Department. We are available 24 hours a day. KAILYN ACKERMAN has been given the following list of patient education materials, prescriptions and follow-up instructions: Follow-up Instructions: With: Address: [facility] [address] [place] [address] [place] [phone] Business (1) In 3 days 08/30/2023 With: Address: When: SELAM HUNTER [address] [place] [address] [place] [phone] Business (1) In 3 days In the event that this physician does not participate in your insurance network, please consult with your insurance company to find a nearby participating provider. Patient Education Materials: and Urinary Tract Infection; Urinary Tract Infection, Adult, Zuqa-ey-Aswu; Subchorionic Hematoma A MESSAGE TO ALL PATIENTS REGARDING OPIOIDS PRESCRIPTION OPIOIDS: WHAT YOU NEED TO KNOW Prescription opioids can be used to help relieve ueszuvrb-xa-tphvxv pain and are often prescribed following a [...] toilet, follo (more content not included)... Normal [facility] HEMATOLOGYOrdered By: SYSTEM SYSTEM on [...] 08-27-19 24 Color (U) Light-Yellow Normal Yellow [facility] Comment on above: Result Comment: Micr oscopic readings are only performed on those samples that meet specific criteria set forth by [facility] Laboratory. Performed By: #### 4 [id number], [id number] ####[facility] [address] [place] [address] Glucose (U) [Mass/Vol] Negative Normal Negative Fi [facility] Comment on above: Performed By: #### 4 [id number], [id number] ####[facility] [address] [place] [address] Ketones Ql (U) Negative Normal Negative [facility] Comment on above: Performed By: #### 4 [id number], [id number] ####[facility] [address] [place] [address] UA Blood 3+ Abnormal Negative [facility] Comment on above: Performed By: #### 4 [id number], [id number] ####[facility] [address] [place] [address] UA Bacteria 1+ [id number] Abnormal Trace [facility] Comment on above: Performed By: #### 4 [id number], [id number] ####[facility] [address] [place] [address] UA Clarity Turbid Abnormal Clear [facility] Comment on above: Performed By: #### 4 [id number], [id number] ####[facility] [address] [place] [address] UA Hyal Cast 0-3 Normal 0-3 [facility] Comment on above: Performed By: #### 4 [id number], [id number] ####[facility] [address] [place] [address] UA Leuk Est 250 Stefania/uL Abnormal Negative [facility] Comment on above: Performed By: #### 4 [id number], [id number] ####[facility] [address] [place] [address] UA Mucous Trace Normal Negative [facility] Comment on above: Performed By: #### 4 [id number], [id number] ####[facility] [address] [place] [address] UA Nitrite Negative Normal Negative [facility] Comment on above: Performed By: #### 4 [id number], [id number] ####[facility] [address] [place] [address] UA pH 5.5 Invalid Interpretation Code 5.0-9.0 [facility] Comment on above: Performed By: #### 4 [id number], [id number] ####[facility] [address] [place] [address] UA Protein 1+ mg/dL Abnormal Negative [facility] Comment on above: Performed By: #### 4 [id number], [id number] ####[facility] [address] [place] [address] UA RBC 4-20 Abnormal 0-3 [facility] Comment on above: Performed By: #### 4 [id number], [id number] ####[facility] [address] [place] [address] UA Spec Grav 1.018 Invalid Interpretation Code 1.005-1.030 [facility] Comment on above: Performed By: #### 4 [id number], [id number] ####[facility] [address] [facility] [place] [address] UA Squam Epithelial 3-4 Abnormal 0-2 Fishe r [facility] Comment on above: Performed By: #### 4 [id number], [id number] ####[facility] [address] [place] [address] UA Urobilinogen Negative Normal Negative [facility] Comment on above: Performed By: #### 4 [id number], [id number] ####[facility] [address] [place] [address] UA WBC 6-15 Abnormal 0-5 [facility] Comment on above: Performed By: #### 4 [id number], [id number] ####[facility] [address] [place] [address] Urobilinogen (U) [Mass/Vol] Negative Normal Negative [facility] Comment on above: Performed By: #### 4 [id number], [id number] ####[facility] [address] [place] [address] UA Spec Desc Clean Catch Normal [facility] Comment on above: Performed By: #### 4 [id number], [id number] ####[facility] [address] [place] [address] URINALYSISOrdered By: SYSTEM SYSTEM on 08-27-2023 Color (U) Light-Yellow 1 (08/27/23 9:55 AM) Normal Yellow [facility] UA Auto SS Comment on above: Interpretive Data: M icroscopic readings are only performed on those samples that meet specific criteria set forth by [facility] Laboratory. Glucose (U) [Mass/Vol] Negative [...] Reason for Exam: Other (please specify) Report [facility] [phone] IMPRESSION: Single live intrauterine with estimated sonographic [...] heart rate is measured at 120 bpm. [place]-rump length 4.77 mm. Estimated sonographic gestational age [...] Transvaginal Ultrasound Performed FHR (bpm) 120 Normal [facility] US Transvaginalon 08-27-2023 US Transvaginal Exam Date/Time: 08/27/2023 11:55 EDT Reason for Exam: Other (please specify) Report [facility] [phone] Please see ultrasound pelvis, for report of transvaginal examination. Ordering Provider: Hudson Riley FINAL REPORT Dictated: 08/27/2023 12:33 pm Zach Deng MD Signed (Electronic Signature): 08/27/2023 12:33 pm Signed by: Zach Deng MD Transcribed by: KIRK Technologist: SHELLEY Normal [facility] eGFRon 08-27-2023 eGFR 131 mL/min/1.73 m2 Normal >=59 [facility] Comment on above: Order Comment: Order added by Discern Expert. Performed By: #### 1 [id number], [id number] ####[facility] [address] [place] [address] [facility] [place] 08-19-2023 HCG.beta subunit Qn 4261 m[IU]/mL High 1-3 Fi [facility] Comment on above: Result Comment: 'F N ON < 1 - 3' ' 0.2 - 1 WEEK = 5 TO 50' ' 1 - 2 WEEKS = 50 - 500' ' 2 - 3 WEEKS = 100 - 5000' ' 3 - 4 WEEKS = 500 - 27353' ' 4 - 5 WEEKS = 1000 - 13454' ' 5 - 6 WEEKS = 28848 - 628314' ' 6 - 8 WEEKS = 63705 - 070774' ' 8 - 12 WEEKS = 54919 - 233948' Performed By: #### 2 [id number] ####[facility] [address] [place] [address] Physician Orderon 08-19-2023 Physician Order [id number] Normal [facility] CHEMISTRYOrdered By: Juancho benitez on [...] 108 mL/min/1.73 m2 Normal >=59mL/min/1 .73 m2 [facility] Chem S HCG.beta subunit Qn 1572 m[IU]/mL [...] 16.9 E9/L High 4.0 - 11.0 E9/L [facility] HemeAutoSS Laboratory - Microbiology an d Antimicrobial susceptibilityOrdered By: Asuncion Goncalves on 01-03-2023 Bacteria identified Cx Nom (U) No growth to date Continuing incubation [facility] MICRO OTHER TESTSOrdered By: Juancho [...] Interpretation Code Negative [facility] UA Auto SS Waves.plasma/Waves.R BC (Bld) [Mass ratio] 0-3 /HPF Normal [...] PM) Invalid Interpretation Code 1.005 - 1.030 [facility] UA Auto SS UA Spec Desc Clean Catch (01/03/23 10:52 PM) Normal [facility] UA Auto SS Urobilinogen Qn (U) 1.8306148 {Georgina'U}/dL Normal 0.0 - 1.0 EU/dL FT UA Auto SS WBC Auto Ql (U) 1+ *ABN* (01/03/23 10:52 PM) Invalid Interpretation Code Negative [facility] UA Auto SS WBC LM.HPF (Urine sed) [#/Area] 6-15 /HPF Invalid Interpretation Code 0-5/HPF [facility] UA Auto SS Alanine aminotransferase [En zymatic activity/volume] in Serum or PlasmaOrdered By: Jose Silverman on 10-02-2022 ALT [Catalytic activity/Vol] 13 U/L Normal 7-52 [facility] Comment on above: Performed By: #### C BC, CMP, ETOH #### [facility] [address] [place] [address] [place] Albumin [Mass/volume] in Ser um or Plasma by Bromocresol green (BCG) dye binding methoOrdered By: Jose Silverman on 10-02-2022 Albumin BCG dye [Mass/Vol] 5.0 g/dL 3.5-5.7 [facility] Alkaline phosphatase [Enzyma tic activity/volume] in Serum or PlasmaOrdered By: Jose Silverman on 10-02-2022 ALP [Catalytic activity/Vol] 69 U/L Normal 34-104 [facility] Comment on above: Performed By: #### C BC, CMP, ETOH #### [facility] [address] [place] [address] [place] Amphetamine Screen Ql (U)Ord ered By: Jose Silverman on 10-02-2022 Amphetamines Ql (U) Negative Negative [facility] Aspartate aminotransferase [ Enzymatic activity/volume] in Serum or PlasmaOrdered By: Jose Silverman on 10-02-2022 AST [Catalytic activity/Vol] 21 U/L Normal 13-39 [facility] Comment on above: Performed By: #### C BC, CMP, ETOH #### [address] Automated basophil %Ordered By: Jose Silverman on 10-02-2022 Basophils/100 WBC (Bld) 0.5 % Normal . [facility] Comment on above: Performed By: #### C BC, CMP, ETOH #### [address] Automated basophil countOrde red By: Jose Silverman on 10-02-2022 Basophils (Bld) [#/Vol] 0.1 10*3/uL Normal 0.0-0.2 [facility] Comment on above: Result Comment: PERF ORMED BY: [place] [address] PATHOLOGIST SUPPLY TECH ASHELY CAREY M.D. Performed By: #### C BC, CMP, ETOH #### [address] Automated blood monocyte cou ntOrdered By: Jose Silverman on 10-02-2022 Monocytes (Bld) [#/Vol] 0.7 10*3/uL Normal 0.0-0.8 [facility] Comment on above: Performed By: #### C BC, CMP, ETOH #### [address] Automated eosinophil %Ordere d By: Jose Silverman on 10-02-2022 Eosinophils/100 WBC (Bld) 2.0 % Normal . [facility] Comment on above: Performed By: #### C BC, CMP, ETOH #### [address] Automated eosinophil countOr dered By: Jose Silverman on 10-02-2022 Eosinophils (Bld) [#/Vol] 0.3 10*3/uL Normal 0.0-0.45 [facility] Comment on above: Performed By: #### C BC, CMP, ETOH #### [address] Automated erythrocytes count in urine sediment (number/area)Ordered By: Jose Silverman on 10-02-2022 RBC Auto (Urine sed) [#/Area] 0-1 [HPF] 0-4 [facility] Automated leukocytes count i n urine sediment (number/area)Ordered By: Jose Silverman on 10-02-2022 WBC Auto (Urine sed) [#/Area] 10-19 [HPF] 0-4 [facility] Automated monocyte %Ordered By: Jose Silverman on 10-02-2022 Monocytes/100 WBC (Bld) 5.7 % Normal . [facility] Comment on above: Performed By: #### C BC, CMP, ETOH #### [facility] [address] Automated neutrophil %Ordere d By: Jose Silverman on 10-02-2022 Neutrophils/100 WBC (Bld) 68.7 % Normal . [facility] Comment on above: Performed By: #### C BC, CMP, ETOH #### [facility] [address] [place] [address] [place] Barbiturates [Presence] in U rine by Screen methodOrdered By: Jose Silverman on 10-02-2022 Barbiturates Screen Ql (U) Negative Negative [facility] Benzodiazepines Screen Ql (U )Ordered By: Jose Silverman on 10-02-2022 Benzodiazepines Ql (U) Negative Negative [facility] Benzoylecgonine [Presence] i n Urine by Screen methodOrdered By: Jose Silverman on 10-02-2022 Benzoylecgonine Screen Ql (U) Negative Negative [facility] Bilirubin Test strip Ql (U)O rdered By: Jose Silverman on 10-02-2022 Bilirubin Ql (U) Negative Negative [facility] Bilirubin.total [Mass/volume ] in Serum or PlasmaOrdered By: Jose Silverman on 10-02-2022 Bilirubin [Mass/Vol] 0.3 mg/dL Normal 0.3-1.0 [facility] Comment on above: Performed By: #### C BC, CMP, ETOH #### [facility] [address] [place] [address] [place] Calcium [Mass/volume] in Ser um or PlasmaOrdered By: Jose Silverman on 10-02-2022 Calcium [Mass/Vol] 9.6 mg/dL Normal 8.6-10.3 [facility] Comment on above: Performed By: #### C BC, CMP, ETOH #### [facility] [address] Cannabinoids [Presence] in U rine by Screen methodOrdered By: Jose Silverman on 10-02-2022 Cannabinoids Screen Ql (U) Negative Negative [facility] Comment on above: These are unconfirme d results and should not be used for legal purposes. Drug Cut-Off Concentration: AMPH 1000 ng/mL MIAH 200 ng/mL AYAN 200 ng/mL COCM 300 ng/mL OP 300 ng/mL PCP 25 ng/mL THC 20 ng/mL Carbon dioxide, total [Moles /volume] in Serum or PlasmaOrdered By: Jose Silverman on 10-02-2022 CO2 [Moles/Vol] 27.2 mmol/L Normal 21.0-31.0 [facility] Comment on above: Performed By: #### C BC, CMP, ETOH #### [place] [address] [place] Chloride [Moles/volume] in S brian or PlasmaOrdered By: Jose Silverman on 10-02-2022 Chloride [Moles/Vol] 101 mmol/L Normal 98-107 [facility] Comment on above: Performed By: #### C BC, CMP, ETOH #### [facility] [address] [place] [address] [place] Color Auto (U)Ordered By: Loli Silverman on 10-02-2022 Color (U) Yellow Yellow [facility] Complete Blood Count Auto Di ffon 10-02-2022 Mean Corpuscular HGB Conc 32.0 g/dL Normal 32.0-35.0 [facility] Comment on above: Performed By: #### C BC, CMP, ETOH #### [place] [address] [place] Monocytes/100 WBC (Bld) 17.72 % Normal 0.00-20.00 [facility] Comment on above: Performed By: #### C BC, CMP, ETOH #### [facility] [address] NRBC% 0.0 /100{WBC} Normal 0-0.5 [facility] Comment on above: Performed By: #### C BC, CMP, ETOH #### [facility] [address] Comprehensive Metabolic Pane tung 10-02-2022 Albumin [Mass/Vol] 5.0 g/dL Normal 3.5-5.7 [facility] Comment on above: Performed By: #### C BC, CMP, ETOH #### [address] Creatinine Clr Calc Pharmacy 107.48 [facility] Comment on above: Result Comment: PERF ORMED BY: [place] [address] PATHOLOGIST SUPPLY TECH ASHELY CAREY M.D. Performed By: #### C BC, CMP, ETOH #### [address] GFR/1.73 sq M.predicted MDRD (S/P/Bld) [Vol rate/Area] mL/min/{1.73_m2} Normal [facility] Comment on above: Performed By: #### C BC, CMP, ETOH #### [address] Creatinine [Mass/volume] in Serum or PlasmaOrdered By: Jose Silverman on 10-02-2022 Creatinine [Mass/Vol] 0.89 mg/dL Normal 0.60-1.20 [facility] Comment on above: Performed By: #### C BC, CMP, ETOH #### [address] Dipstick and Microscopicon 0 10-02-2022 Appearance (U) Clear Normal Clear [facility] Comment on above: Order Comment: Name Collection Type:: Clean-Voided Midstream Performed By: #### U RDS, ADDONUAPLUS, CUU, UHCG #### [address] Bacteria,Urine 2+ High None Seen [facility] Comment on above: Order Comment: Name Collection Type:: Clean-Voided Midstream Performed By: #### U RDS, ADDONUAPLUS, CUU, UHCG #### [facility] [address] [place] [address] [place] Bilirubin,Urine Negative Normal Negative [facility] Comment on above: Order Comment: Name Collection Type:: Clean-Voided Midstream Performed By: #### U RDS, ADDONUAPLUS, CUU, UHCG #### [facility] [address] [place] [address] Color (U) Yellow Normal Yellow [facility] Comment on above: Order Comment: Name Collection Type:: Clean-Voided Midstream Performed By: #### U RDS, ADDONUAPLUS, CUU, UHCG #### [facility] [address] [place] [address] Glucose Ql (U) Normal Normal Normal [facility] Comment on above: Order Comment: Name Collection Type:: Clean-Voided Midstream Performed By: #### U RDS, ADDONUAPLUS, CUU, UHCG #### [facility] [address] [place] [address] [place] Hyaline Casts,Urine 0-8 Normal 0-8 [facility] Comment on above: Order Comment: Name Collection Type:: Clean-Voided Midstream Performed By: #### U RDS, ADDONUAPLUS, CUU, UHCG #### [facility] [address] [place] [address] [place] Ketones Ql (U) Negative Normal Negative [facility] Comment on above: Order Comment: Name Collection Type:: Clean-Voided Midstream Performed By: #### U RDS, ADDONUAPLUS, CUU, UHCG #### [facility] [address] [place] [address] [place] Leukocyte esterase Test strip Ql (U) 3+ High Negative [facility] Comment on above: Order Comment: Name Collection Type:: Clean-Voided Midstream Performed By: #### U RDS, ADDONUAPLUS, CUU, UHCG #### [facility] [address] [place] [address] [place] Nitrite,Urine Negative Normal Negative [facility] Comment on above: Order Comment: Name Collection Type:: Clean-Voided Midstream Performed By: #### U RDS, ADDONUAPLUS, CUU, UHCG #### [address] Occult Blood,Urine Negative Normal Negative [facility] Comment on above: Order Comment: Name Collection Type:: Clean-Voided Midstream Performed By: #### U RDS, ADDONUAPLUS, CUU, UHCG #### [address] pH (U) 6.5 [pH] Normal 5.0-9.0 [facility] Comment on above: Order Comment: Name Collection Type:: Clean-Voided Midstream Performed By: #### U RDS, ADDONUAPLUS, CUU, UHCG #### [place] [address] [place] Protein,Urine Negative Normal Negative [facility] Comment on above: Order Comment: Name Collection Type:: Clean-Voided Midstream Performed By: #### U RDS, ADDONUAPLUS, CUU, UHCG #### [address] RBC LM.HPF (Urine sed) [#/Area] 0 /[HPF] Normal 0-4 [facility] Comment on above: Order Comment: Name Collection Type:: Clean-Voided Midstream Performed By: #### U RDS, ADDONUAPLUS, CUU, UHCG #### [place] [address] [place] Specificy [place],Urine 1.021 Normal 1.001-1.030 [facility] Comment on above: Order Comment: Name Collection Type:: Clean-Voided Midstream Performed By: #### U RDS, ADDONUAPLUS, CUU, UHCG #### [address] Squamous Epithelial Cell,Urine 10-19 High 0-2 [facility] Comment on above: Order Comment: Name Collection Type:: Clean-Voided Midstream Performed By: #### U RDS, ADDONUAPLUS, CUU, UHCG #### [facility] [address] [place] [address] Urobilinogen,Urine Normal Normal Normal [facility] Comment on above: Order Comment: Name Collection Type:: Clean-Voided Midstream Performed By: #### U RDS, ADDONUAPLUS, CUU, UHCG #### [facility] [address] [place] [address] [place] WBC,Urine 10-19 High 0-4 [facility] Comment on above: Order Comment: Name Collection Type:: Clean-Voided Midstream Performed By: #### U RDS, ADDONUAPLUS, CUU, UHCG #### [facility] [address] [place] [address] Drug Screen,Urineon 10-03-19 23 Amphetamine Screen,Urine Negative Normal Negative [facility] Comment on above: Performed By: #### U RDS, ADDONUAPLUS, CUU, UHCG #### [facility] [address] [place] [address] [place] Barbiturate Screen,Urine Negative Normal Negative [facility] Comment on above: Performed By: #### U RDS, ADDONUAPLUS, CUU, UHCG #### [facility] [address] [place] [address] [place] Benzodiazepines Screen,Urine Negative Normal Negative [facility] Comment on above: Performed By: #### U RDS, ADDONUAPLUS, CUU, UHCG #### [facility] [address] [place] [address] [place] Cannabinoid Screen,Urine Negative Normal Negative [facility] Comment on above: Result Comment: Thes e are unconfirmed results and should not be used for legal purposes. Drug Cut-Off Concentration: AMPH 1000 ng/mL MIAH 200 ng/mL AYAN 200 ng/mL COCM 300 ng/mL OP 300 ng/mL PCP 25 ng/mL THC 20 ng/mL PERFORMED BY: [place] [phone] PATHOLOGIST SUPPLY TECH ASHELY CAREY M.D. Performed By: #### U RDS, ADDONUAPLUS, CUU, UHCG #### [address] Cocaine Screen,Urine Negative Normal Negative [facility] Comment on above: Performed By: #### U RDS, ADDONUAPLUS, CUU, UHCG #### [address] Opiate Screen,Urine Negative Normal Negative [facility] Comment on above: Performed By: #### U RDS, ADDONUAPLUS, CUU, UHCG #### [address] Phencyclidine Screen,Urine Negative Normal Negative [facility] Comment on above: Performed By: #### U RDS, ADDONUAPLUS, CUU, UHCG #### [address] Erythrocyte distribution wid th [Ratio] by Automated countOrdered By: Jose Silverman on 10-02-2022 Erythrocyte distribution width (RBC) [Ratio] 15.8 % High 11.9-15.3 [facility] Comment on above: Performed By: #### C BC, CMP, ETOH #### [address] Erythrocytes [#/volume] in B lood by Automated countOrdered By: Jose Silverman on 10-02-2022 RBC (Bld) [#/Vol] 5.31 10*6/uL High 3.60-5.00 [facility] Comment on above: Performed By: #### C BC, CMP, ETOH #### [address] Ethanol [Mass/volume] in Ser um or PlasmaOrdered By: Jose Silverman on 10-02-2022 Ethanol [Mass/Vol] mg/dL Normal [facility] Comment on above: Performed By: #### C BC, CMP, ETOH #### [address] Ethanol [Mass/Vol] TNP [facility] Comment on above: Test not performed Ethyl Alcohol Profileon 09-08 Percent Ethanol Not performed Normal [facility] Comment on above: Result Comment: PERF ORMED BY: [place] [address] PATHOLOGIST SUPPLY TECH ASHELY CAREY M.D. Performed By: #### C BC, CMP, ETOH #### [place] [id number] [facility] Glucose [Mass/volume] in Ser um or PlasmaOrdered By: Jose Silverman on 10-02-2022 Glucose [Mass/Vol] 98 mg/dL Normal 70-100 [facility] Comment on above: ADA recommended refe rence rangeRandom Glucose Reference Range is dependent on time and content of last meal. Glucose of more than 200 mg/dL in a nonstressed, ambulatory subject supports the diagnosis of Diabetes Mellitus. Result Comment: [place] om Glucose Reference Range is dependent on time and content of last meal. Glucose of more than 200 mg/dL in a nonstressed, ambulatory subject supports the diagnosis of Diabetes Mellitus. ADA recommended reference range Performed By: #### C BC, CMP, ETOH #### [facility] [address] [place] [address] HCG ( test) IA.rapi d Ql (U)Ordered By: Jose Silverman on 10-02-2022 HCG ( test) Ql (U) Negative [facility] HCG,Urineon 10-02-2022 Beta HCG ( test) Ql (U) Negative Normal [facility] Comment on above: Order Comment: Name Collection Type:: Clean-Voided Midstream Result Comment: PERF ORMED BY: [place] [address] PATHOLOGIST SUPPLY TECH ASHELY CAREY M.D. Performed By: #### U RDS, ADDONUAPLUS, CUU, UHCG #### [facility] [address] [place], [place] [id number] [facility] Hematocrit [Volume Fraction] of Blood by Automated countOrdered By: Jose Silverman on 10-02-2022 Hematocrit (Bld) [Volume fraction] 41.7 % Normal 34.0-46.4 [facility] Comment on above: Performed By: #### C BC, CMP, ETOH #### [address] Hemoglobin [Mass/volume] in BloodOrdered By: Jose Silverman on 10-02-2022 Hemoglobin (Bld) [Mass/Vol] 13.3 g/dL Normal 11.8-15.4 [facility] Comment on above: Performed By: #### C BC, CMP, ETOH #### [address] Ketones Auto test strip (U) [Mass/Vol]Ordered By: Jose Silverman on 10-02-2022 Ketones (U) [Mass/Vol] Negative Negative [facility] - UrinalysisOrder ed By: Jose Silverman on 10-02-2022 Hyaline casts LM Ql (Urine sed) 0-8 [LPF] 0-8 [facility] Leukocytes [#/volume] correc ruby for nucleated erythrocytes in Blood by Automated counOrdered By: Jose Silverman on 10-02-2022 WBC corrected for nucl RBC Auto (Bld) [#/Vol] 12.9 10*3/uL 3.8-11.6 [facility] Leukocytes [#/volume] in Blo od by Automated countOrdered By: Jose Silverman on 10-02-2022 WBC (Bld) [#/Vol] 12.9 10*3/uL High 3.8-11.6 [facility] Comment on above: Performed By: #### C BC, CMP, ETOH #### [place] [address] [place] Lymphocytes [#/volume] in Bl ood by Automated countOrdered By: Jose Silverman on 10-02-2022 Lymphocytes (Bld) [#/Vol] 3.0 10*3/uL Normal 1.00-4.8 [facility] Comment on above: Performed By: #### C BC, CMP, ETOH #### [facility] [address] [place] [address] [place] Lymphocytes/100 leukocytes i n Blood by Automated countOrdered By: Jose Silverman on 10-02-2022 Lymphocytes/100 WBC (Bld) 23.1 % Normal . [facility] Comment on above: Performed By: #### C BC, CMP, ETOH #### [facility] [address] [place] [address] [place] MCH [Entitic mass] by Automa ruby countOrdered By: Jose Silverman on 10-02-2022 MCH (RBC) [Entitic mass] 25.2 pg Normal 24.7-34.3 [facility] Comment on above: Performed By: #### C BC, CMP, ETOH #### [facility] [address] MCHC Auto (RBC) [Mass/Vol]Or dered By: Jose Silverman on 10-02-2022 MCHC (RBC) [Mass/Vol] 32.0 g/dL 32.0-35.0 [facility] MCV [Entitic volume] by Auto mated countOrdered By: Jose Silverman on 10-02-2022 MCV (RBC) [Entitic vol] 78.5 fL Low 80-100 [facility] Comment on above: Performed By: #### C BC, CMP, ETOH #### [address] Monocyte distribution width [Entitic volume] in Blood by AutomatedOrdered By: Jose Silverman on 10-02-2022 Monocyte distribution width Auto (Bld) [Entitic vol] 17.72 % 0.00-20.00 [facility] Neutrophils [#/volume] in Bl ood by Automated countOrdered By: Jose Silverman on 10-02-2022 Neutrophils (Bld) [#/Vol] 8.9 10*3/uL High 1.8-7.7 [facility] Comment on above: Performed By: #### C BC, CMP, ETOH #### [address] Nitrite Test strip Ql (U)Ord ered By: Jose Silverman on 10-02-2022 Nitrite Ql (U) Negative Negative [facility] No Panel InformationOrdered By: Jose Silverman on 10-02-2022 Estimated GFR (CKD-EPI) > 60.0 mL/Min [facility] Creatinine Clearance (Chem 107.48 [facility] Nucleated erythrocytes [Pres ence] in Blood by Automated countOrdered By: Jose Silverman on 10-02-2022 Nucleated RBC Auto Ql (Bld) 0.0 /100{WBC} 0-0.5 [facility] Opiates [Presence] in Urine by Screen methodOrdered By: Jose Silverman on 10-02-2022 Opiates Screen Ql (U) Negative Negative [facility] Phencyclidine Screen Ql (U)O rdered By: Jose Silverman on 10-02-2022 Phencyclidine Ql (U) Negative Negative [facility] Platelet mean volume [Entiti c volume] in Blood by Automated countOrdered By: Jose Silverman on 10-02-2022 Platelet mean volume (Bld) [Entitic vol] 7.7 fL Normal 6.3-10.7 [facility] Comment on above: Performed By: #### C BC, CMP, ETOH #### [facility] [address] [place] [address] Platelets [#/volume] in Bloo d by Automated countOrdered By: Jose Silverman on 10-02-2022 Platelets (Bld) [#/Vol] 342 10*3/uL Normal 150-450 [facility] Comment on above: Performed By: #### C BC, CMP, ETOH #### [place] [address] [place] Potassium [Moles/volume] in Serum or PlasmaOrdered By: Jose Silverman on 10-02-2022 Potassium [Moles/Vol] 3.8 mmol/L Normal 3.5-5.1 [facility] Comment on above: Performed By: #### C BC, CMP, ETOH #### [place] [address] [place] Protein Auto test strip (U) [Mass/Vol]Ordered By: Jose Silverman on 10-02-2022 Protein (U) [Mass/Vol] Negative Negative [facility] Protein [Mass/volume] in Ser um or PlasmaOrdered By: Jose Silverman on 04-26-2023 Protein [Mass/Vol] 8.7 g/dL Normal 6.4-8.9 [facility] Comment on above: Performed By: #### C BC, CMP, ETOH #### [address] Serum globulin measurement b y calculation (mass/volume)Ordered By: Jose Silverman on 10-02-2022 Globulin (S) [Mass/Vol] 3.7 g/dL Normal [facility] Comment on above: Performed By: #### C BC, CMP, ETOH #### [address] Serum or plasma albumin/glob ulin mass ratioOrdered By: Jose Silverman on 10-02-2022 Albumin/Globulin [Mass ratio] 1.4 {ratio} Normal [facility] Comment on above: Performed By: #### C BC, CMP, ETOH #### [address] Serum or plasma anion gap de terminationOrdered By: Jose Silverman on 10-02-2022 Anion gap [Moles/Vol] 12.6 mmol/L Normal 6.0-15.0 [facility] Comment on above: Performed By: #### C BC, CMP, ETOH #### [address] Sodium [Moles/volume] in Ser um or PlasmaOrdered By: Jose Silverman on 10-02-2022 Sodium [Moles/Vol] 137 mmol/L Normal 136-145 [facility] Comment on above: Performed By: #### C BC, CMP, ETOH #### [address] Specific gravity Auto test s trip (U) [Rel density]Ordered By: Jose Silverman on 10-02-2022 Specific gravity (U) [Rel density] 1.021 1.001-1.030 [facility] Squamous epithelial cells de tection in urine sediment by light microscopyOrdered By: Jose Silverman on 10-02-2022 Epithelial cells.squamous LM Ql (Urine sed) 10-19 [HPF] 0-2 [facility] Urea nitrogen [Mass/volume] in Serum or PlasmaOrdered By: Jose Silverman on 10-02-2022 Urea nitrogen [Mass/Vol] 18 mg/dL Normal 7-25 [facility] Comment on above: Performed By: #### C BC, CMP, ETOH #### [facility] [address] [place] [address] [place] Urine Cultureon 10-02-2022 Bacteria identified Cx Nom (U) ORGANISM: Strep agalactiae - (group b) (O:STRAGA) [place] Count 50,000 PERFORMED BY: [place] [address] PATHOLOGIST SUPPLY TECH ASHELY CAREY M.D. Normal [facility] Comment on above: Performed By: #### U RDS, ADDONUAPLUS, CUU, UHCG #### [facility] [address] [place] [address] Urine bacteria detection by automated methodOrdered By: Jose Silverman on 10-02-2022 Bacteria Auto Ql (U) 2+ None Seen [facility] Urine clarity by refractomet ry automatedOrdered By: Jose Silverman on 10-02-2022 Clarity Refractometry automated (U) Clear Clear [facility] Urine glucose measurement by automated test strip (mass/volume)Ordered By: Jose Silverman on 10-02-2022 Glucose Auto test strip (U) [Mass/Vol] Normal mg/dL Normal [facility] Urine hemoglobin detection b y automated test stripOrdered By: Jose Silverman on 10-02-2022 Hemoglobin Auto test strip Ql (U) Negative Negative [facility] Urine leukocyte esterase det ection by automated test stripOrdered By: Jose Silverman on 10-02-2022 Leukocyte esterase Auto test strip Ql (U) 3+ Negative [facility] Urobilinogen Auto test strip (U) [Mass/Vol]Ordered By: Jose Silverman on 10-02-2022 Urobilinogen (U) [Mass/Vol] Normal mg/dL Normal [facility] pH Auto test strip (U)Ordere d By: Jose Silverman on 10-02-2022 pH (U) 6.5 [pH] 5.0-9.0 [facility] Quick Strepon 09-25-2022 S. pyogenes Org specific cx Ql (Throat) Negative [employer] Other Quick Strep [employer] Other CHEMISTRYOrdered By: SYSTEM SYSTEM on 09-06-2022 [...] rate/Area] mL/min/1.73 m2 Normal >=59mL/min/1 .73 m2 [facility] Chem S GFR/1.73 sq M.predicted among non-blacks MDRD (S/P/Bld) [Vol rate/Area] mL/min/1.73 m2 Normal >=59mL/min/1 .73 m2 [facility] Chem S Glucose [Mass/Vol] 82 mg/dL Normal [...] AM) Normal Negative [facility] UA Auto SS Waves.plasma/Waves.R BC (Bld) [Mass ratio] >30 /HPF Invalid [...] AM) Invalid Interpretation Code 1.005 - 1.030 [facility] UA Auto SS UA Spec Desc Clean Catch (09/06/22 11:19 AM) Normal [facility] UA Auto SS Urobilinogen Qn (U) [id number] {Georgina'U}/dL Normal 0.0 - 1.0 EU/dL [facility] UA Auto SS WBC Auto Ql (U) Negative (09/06/22 11:19 AM) Normal Negative [facility]A Auto SS WBC LM.HPF (Urine sed) [#/Area] 0-5 /HPF Normal 0-5/HPF [facility] UA Auto SS BLOOD BANKOrdered By: John Montague on 08-14-2022 ABO/Rh Interp Positive Invalid Interpretation Code [facility] BB Subsection CHEMISTRYOrdered By: SYSTEM SYSTEM on [...] rate/Area] mL/min/1.73 m2 Normal >=59mL/min/1 .73 m2 [facility] Chem S Globulin (S) [Mass/Vol] 3.2 g/dL [...] PM) Normal Negative [facility] UA Auto SS Waves.plasma/Waves.R BC (Bld) [Mass ratio] 0-3 /HPF Normal [...] [facility] UA Auto SS Urobilinogen Qn (U) 0.2307608 {Georgina'U}/dL Normal 0.0 - 1.0 EU/dL [facility] UA Auto SS WBC Auto Ql (U) Negative (08/14/22 7:29 PM) Normal Negative [facility] UA Auto SS WBC LM.HPF (Urine sed) [#/Area] 0-5 /HPF Normal 0-5/HPF [facility] UA Auto SS CHLAMYDIA/GONOCOCCUS ALFREDO (SW AB/URINE/PAPon 07-15-2022 Chlamydia trachomatis, ALFREDO Negative Normal Negative [facility] Comment on above: Performed By: #### C T/NGNA #### [facility] [address] [place] [address] [address] Cyril Hendricks Neisseria gonorrhoeae, ALFREDO Negative Normal Negative [facility] Comment on above: Performed By: #### C T/NGNA #### [facility] [address] [place] [address] Dr. Cyril Hendricks VAGINITIS/VAGINOSIS DNA PROB Maurice 07-13-2022 Krista species Negative Normal Negative [facility] Comment on above: Performed By: #### U MICRO, UACSIND #### [facility] [address] [place] [address] [address] Cyril Hendricks Gardnerella vaginalis Positive Abnormal Negative [facility] Comment on above: Performed By: #### U MICRO, UACSIND #### [facility] [address] [place] [address] [address] Cyril Hendricks Trichomonas vaginalis Negative Normal Negative [facility] Comment on above: Performed By: #### U MICRO, UACSIND #### [facility] [address] [place] [address] [address] Cyril Hendricks COVID/FLU RT-PCRon SARS-CoV-2 (COVID-19) RNA ALFREDO+probe Ql (Unsp spec) Negative [employer] Other COVID/FLU RT-PCR Negative [employer] Other Quick Strepon 06-24-2022 S. pyogenes Org specific cx Ql (Throat) Negative [employer] Other Quick Strep [place] [employer] Other CBC AUTO DIFFon 01-08-2022 BASO # 0.1 103/ul Normal 0.0-0.1 [facility] Comment on above: Performed By: #### C BC #### [facility] [address] [place] [address] [address] Cyril Hendricks Basophils/100 WBC (Bld) 0.4 % Normal 0.2-2.0 [facility] Comment on above: Performed By: #### C BC #### [facility] [address] [place] [address] [address] Cyril Hendricks EO # 0.1 103/ul Normal 0.0-0.7 [facility] Comment on above: Performed By: #### C BC #### [facility] [address] [place] [address] Dr. Cyril Hendricks Eosinophils/100 WBC (Bld) 0.9 % Normal 0.9-7.0 [facility] Comment on above: Performed By: #### C BC #### [facility] [address] [place] [address] [address] Cyril Hendricks Erythrocyte distribution width (RBC) [Ratio] 12.3 % Normal 11.0-15.0 [facility] Comment on above: Performed By: #### C BC #### [facility] [address] [place] [address] Dr. Cyril Hendricks Hematocrit (Bld) [Volume fraction] 30.0 % Critically low 36.0-48.0 [facility] Comment on above: Performed By: #### C BC #### [facility] [address] [place] [address] [address] Cyril Hendricks Hemoglobin (Bld) [Mass/Vol] 10.2 g/dL Critically low 12.0-16.0 [facility] Comment on above: Performed By: #### C BC #### [facility] [address] [place] [address] Dr. Cyril Hendricks IG # 0.05 10e3/ul Critically high 0.00-0.03 [facility] Comment on above: Performed By: #### C BC #### [facility] [address] [place] [address] Dr. Cyril Hendricks IG % 0.4 % Normal 0.0-0.5 [facility] Comment on above: Performed By: #### C BC #### [facility] [address] [place] [address] Dr. Cyril Hendricks LYMPH # 2.8 103/ul Normal 1.2-3.8 [facility] Comment on above: Performed By: #### C BC #### [facility] [address] [place] [address] Dr. Cyril Hendricks Lymphocytes/100 WBC (Bld) 19.7 % Critically low 20.5-60.0 [facility] Comment on above: Performed By: #### C BC #### [facility] [address] [place] [address] Dr. Cyril Hendricks MANUAL DIFF REQ NO Normal [facility] Comment on above: Performed By: #### C BC #### [facility] [address] [place] [address] Dr. Cyril Hendricks MCH (RBC) [Entitic mass] 30.6 pg Normal 26.7-34.0 [facility] Comment on above: Performed By: #### C BC #### [facility] [address] [place] [address] Dr. Cyril Hendricks MCHC (RBC) [Mass/Vol] 34.0 g/dL Normal 29.9-35.2 [facility] Comment on above: Performed By: #### C BC #### [facility] [address] [place] [address] Dr. Cyril Hendricks MCV (RBC) [Entitic vol] 90.1 fL Normal 81.0-99.0 [facility] Comment on above: Performed By: #### C BC #### [facility] [address] [place] [address] Dr. Cyril Hendricks MONO # 0.8 103/ul Normal 0.3-0.8 [facility] Comment on above: Performed By: #### C BC #### [facility] [address] [place] [address] Dr. Cyril Hendricks Monocytes/100 WBC (Bld) 5.9 % Normal 1.7-12.0 [facility] Comment on above: Performed By: #### C BC #### [facility] [address] [place] [address] Dr. Cyril Hendricks NEUT # 10.3 103/ul Critically high 1.4-6.5 [facility] Comment on above: Performed By: #### C BC #### [facility] [address] [place] [address] Dr. Cyril Hendricks Neutrophils/100 WBC (Bld) 72.7 % Normal 43.0-75.0 [facility] Comment on above: Performed By: #### C BC #### [facility] [address] [place] [address] Dr. Cyril Hendricks Platelet mean volume (Bld) [Entitic vol] 9.8 fL Normal 9.5-13.5 [facility] Comment on above: Performed By: #### C BC #### [facility] [address] [place] [address] Dr. Cyril Hendricks PLT 207 103/ul Normal 150-450 [facility] Comment on above: Performed By: #### C BC #### [facility] [address] [place] [address] Dr. Cyril Hendricks RBC 3.33 106/ul Critically low 4.20-5.40 [facility] Comment on above: Performed By: #### C BC #### [facility] [address] [place] [address] Dr. Cyril Hendricks WBC 14.2 103/ul Critically high 4.0-11.0 [facility] Comment on above: Performed By: #### C BC #### [facility] [address] [place] [address] Dr. Cyril Hendricks CBC AUTO DIFFon 01-07-2022 BASO # 0.1 103/ul Normal 0.0-0.1 [facility] Comment on above: Performed By: #### U MICRO, UACSIND #### [facility] [address] [address] [address] Cyril Hendricks Basophils/100 WBC (Bld) 0.5 % Normal 0.2-2.0 [facility] Comment on above: Performed By: #### U MICRO, UACSIND #### [facility] [address] [place] [address] [address] Cyril Hendricks EO # 0.1 103/ul Normal 0.0-0.7 [facility] Comment on above: Performed By: #### U MICRO, UACSIND #### [facility] [address] [address] [address] Cyril Hendricks Eosinophils/100 WBC (Bld) 0.9 % Normal 0.9-7.0 [facility] Comment on above: Performed By: #### U MICRO, UACSIND #### [facility] [address] [place] [address] Dr. Cyril Hendricks Erythrocyte distribution width (RBC) [Ratio] 12.4 % Normal 11.0-15.0 [facility] Comment on above: Performed By: #### U MICRO, UACSIND #### [facility] [address] [place] [address] Dr. Cyril Hendricks Hematocrit (Bld) [Volume fraction] 34.3 % Critically low 36.0-48.0 [facility] Comment on above: Performed By: #### U MICRO, UACSIND #### [facility] [address] [place] [address] Dr. Cyril Hendricks Hemoglobin (Bld) [Mass/Vol] 11.6 g/dL Critically low 12.0-16.0 [facility] Comment on above: Performed By: #### U MICRO, UACSIND #### [facility] [address] [address] [address] Cyril Hendricks IG # 0.06 10e3/ul Critically high 0.00-0.03 [facility] Comment on above: Performed By: #### U MICRO, UACSIND #### [facility] [address] [place] [address] Dr. Cyril Hendricks IG % 0.4 % Normal 0.0-0.5 [facility] Comment on above: Performed By: #### U MICRO, UACSIND #### [facility] [address] [place] [address] Dr. Cyril Hendricks LYMPH # 3.1 103/ul Normal 1.2-3.8 [facility] Comment on above: Performed By: #### U MICRO, UACSIND #### [facility] [address] [place] [address] Dr. Cyril Hendricks Lymphocytes/100 WBC (Bld) 20.4 % Critically low 20.5-60.0 [facility] Comment on above: Performed By: #### U MICRO, UACSIND #### [facility] [address] [place] [address] Dr. Cyril Hendricks MANUAL DIFF REQ NO Normal [facility] Comment on above: Performed By: #### U MICRO, UACSIND #### [facility] [address] [place] [address] Dr. Cyril Hendricks MCH (RBC) [Entitic mass] 30.6 pg Normal 26.7-34.0 [facility] Comment on above: Performed By: #### U MICRO, UACSIND #### [facility] [address] [place] [address] Dr. Cyril Hendricks MCHC (RBC) [Mass/Vol] 33.8 g/dL Normal 29.9-35.2 [facility] Comment on above: Performed By: #### U MICRO, UACSIND #### [facility] [address] [place] [address] Dr. Cyril Hendricks MCV (RBC) [Entitic vol] 90.5 fL Normal 81.0-99.0 [facility] Comment on above: Performed By: #### U MICRO, UACSIND #### [facility] [address] [place] [address] Dr. Cyril Hendricks MONO # 0.9 103/ul Critically high 0.3-0.8 [facility] Comment on above: Performed By: #### U MICRO, UACSIND #### [facility] [address] [place] [address] Dr. Cyril Hendricks Monocytes/100 WBC (Bld) 6.2 % Normal 1.7-12.0 [facility] Comment on above: Performed By: #### U MICRO, UACSIND #### [facility] [address] [address] [address] Cyril Hendricks NEUT # 10.9 103/ul Critically high 1.4-6.5 [facility] Comment on above: Performed By: #### U MICRO, UACSIND #### [facility] [address] [place] [address] Dr. Cyril Hendricks Neutrophils/100 WBC (Bld) 71.6 % Normal 43.0-75.0 [facility] Comment on above: Performed By: #### U MICRO, UACSIND #### [facility] [address] [place] [address] Dr. Cyril Hendricks Platelet mean volume (Bld) [Entitic vol] 11.1 fL Normal 9.5-13.5 [facility] Comment on above: Performed By: #### U MICRO, UACSIND #### [facility] [address] [place] [address] Dr. Cyril Hendricks PLT 240 103/ul Normal 150-450 [facility] Comment on above: Performed By: #### U MICRO, UACSIND #### [facility] [address] [place] [address] Dr. Cyril Hendricks RBC 3.79 106/ul Critically low 4.20-5.40 [facility] Comment on above: Performed By: #### U MICRO, UACSIND #### [facility] [address] [place] [address] Dr. Cyril Hendricks WBC 15.3 103/ul Critically high 4.0-11.0 [facility] Comment on above: Performed By: #### U MICRO, UACSIND #### [facility] [address] [place] [address] Dr. Cyril Hendricks Covid-19 PCR ([facility])on SARS-CoV-2 (COVID-19) RNA ALFREDO+probe Ql (Unsp spec) [...] for this test is supported by the Applications Engineering Manager of Health and Human Service's declaration that [...] By: #### H CVPCRR #### [facility] [address] [place] [address] Dr. Cyril Henrdicks DRUG SCREEN RAPID (URINE)on 01-07-2022 AMP Negative Normal NEGATIVE [facility] Comment on above: Performed By: #### U MICRO, UACSIND #### [facility] [address] [place] [address] Dr. Cyril Hendricks BAR Negative Normal NEGATIVE [facility] Comment on above: Performed By: #### U MICRO, UACSIND #### [facility] [address] [place] [address] Dr. Cyril Hendricks BUP Negative Normal NEGATIVE [facility] Comment on above: Performed By: #### U MICRO, UACSIND #### [facility] [address] [place] [address] Dr. Cyril Hendricks BZO Negative Normal NEGATIVE [facility] Comment on above: Performed By: #### U MICRO, UACSIND #### [facility] [address] [place] [address] Dr. Cyril Hendricks DARIN Negative Normal NEGATIVE [facility] Comment on above: Performed By: #### U MICRO, UACSIND #### [facility] [address] [place] [address] Dr. Cyril Hendricks CUT-OFFS SEE BELOW Normal [facility] Comment on above: Result [...] #### U MICRO, UACSIND #### [facility] [address] [place] [address] Dr. Cyril Hendricks DRUG CUT HEADER DRUG CLASS TEST SYSTEM CUT-OFF CONCENTRATIONS ARE FOLLOWS: Normal [facility] Comment on above: Performed By: #### U MICRO, UACSIND #### [facility] [address] [place] [address] Dr. Cyril Hendricks mAMP Negative Normal NEGATIVE [facility] Comment on above: Performed By: #### U MICRO, UACSIND #### [facility] [address] [place] [address] Dr. Cyril Hendricks MTD Negative Normal NEGATIVE [facility] Comment on above: Performed By: #### U MICRO, UACSIND #### [facility] [address] [place] [address] Dr. Cyril Hendricks OPI Negative Normal NEGATIVE [facility] Comment on above: Performed By: #### U MICRO, UACSIND #### [facility] [address] [place] [address] Dr. Cyril Hendricks OXY Negative Normal NEGATIVE [facility] Comment on above: Performed By: #### U MICRO, UACSIND #### [facility] [address] [place] [address] Dr. Cyril Hendricks PCP Negative Normal NEGATIVE [facility] Comment on above: Performed By: #### U MICRO, UACSIND #### [facility] [address] [place] [address] Dr. Cyril Hendricks PPX Negative Normal NEGATIVE [facility] Comment on above: Performed By: #### U MICRO, UACSIND #### [facility] [address] [place] [address] Dr. Cyril Hendricks TCA Negative Normal NEGATIVE [facility] Comment on above: Performed By: #### U MICRO, UACSIND #### [facility] [address] [place] [address] Dr. Cyril Hendricks THC Negative Normal NEGATIVE [facility] Comment on above: Performed By: #### U MICRO, UACSIND #### [facility] [address] [place] [address] Dr. Cyril Hendricks TYPE AND SCREENon 01-07-2022 TYPE AND SCREEN Negative Normal [facility] Comment on above: Performed By: #### H CVPCRR #### [facility] [address] [place] [address] Dr. Cyril Hendricks CULTURE URINEon 12-29-2021 CULTURE URINE Culture Observations: NO GROWTH. Normal [facility] Comment on above: Performed By: #### U RCX #### [facility] [address] [place] [address] Dr. Cyril Hendricks UA (CLEAN/CATCH) MANAGER RISK/MICRO I F IND.on 12-29-2021 Bilirubin Ql (U) Negative Normal NEGATIVE [facility] Comment on above: Performed By: #### U MICRO, UACSIND #### [facility] [address] [place] [address] Dr. Cyril Hendricks Clarity (U) SL CLOUDY Abnormal CLEAR [facility] Comment on above: Performed By: #### U MICRO, UACSIND #### [facility] [address] [place] [address] Dr. Cyril Hendricks Color (U) LT. YELLOW Normal YELLOW [facility] Comment on above: Performed By: #### U MICRO, UACSIND #### [facility] [address] [place] [address] Dr. Cyril Hendricks Glucose Ql (U) Negative Normal NEGATIVE [facility] Comment on above: Performed By: #### U MICRO, UACSIND #### [facility] [address] [address] [address] Cyril Hendricks Hemoglobin Ql (U) Negative Normal NEGATIVE [facility] Comment on above: Performed By: #### U MICRO, UACSIND #### [facility] [address] [address] [address] Cyril Hendricks Ketones Ql (U) Negative Normal NEGATIVE [facility] Comment on above: Performed By: #### U MICRO, UACSIND #### [facility] [address] [address] [address] Cyril Hendricks LEUKOCYTES LARGE Abnormal NEGATIVE [facility] Comment on above: Performed By: #### U MICRO, UACSIND #### [facility] [address] [place] [address] Dr. Cyril Hendricks Nitrite Ql (U) Negative Normal NEGATIVE [facility] Comment on above: Performed By: #### U MICRO, UACSIND #### [facility] [address] [address] [address] Cyril Hendricks pH (U) 6.5 [pH] Normal 5-9 [facility] Comment on above: Performed By: #### U MICRO, UACSIND #### [facility] [address] [address] [address] Cyril Hendricks SPEC GRAVITY 1.010 Normal 1.005-<=1.02 5 [facility] Comment on above: Performed By: #### U MICRO, UACSIND #### [facility] [address] [address] [address] Cyril Hendricks UA PROTEIN Negative Normal NEGATIVE/ TRACE [facility] Comment on above: Performed By: #### U MICRO, UACSIND #### [facility] [address] [address] [address] Cyril Hendricks UR MICRO IND INDICATED Normal [facility] Comment on above: Performed By: #### U MICRO, UACSIND #### [facility] [address] [address] [address] Cyril Hendricks Urobilinogen Qn (U) 0.2 {Georgina'U}/dL Normal 0.2 - 1. 0 [facility] Comment on above: Performed By: #### U MICRO, UACSIND #### [facility] [address] [place] [address] Dr. Cyril Hendricks URINE MICROSCOPIC ONLYon BACTERIA SMALL Abnormal NONE SEEN [facility] Comment on above: Performed By: #### U MICRO, UACSIND #### [facility] [address] [place] [address] Dr. Cyril Hendricks Bacteria identified Cx Nom (U) INDICATED Normal [facility] Comment on above: Performed By: #### U MICRO, UACSIND #### [facility] [address] [place] [address] Dr. Cyril Hendricks CAST NONE SEEN Normal NONE SEEN [facility] Comment on above: Performed By: #### U MICRO, UACSIND #### [facility] [address] [place] [address] Dr. Cyril Hendricks Crystals LM Nom (Urine sed) NONE SEEN Normal NONE SEEN [facility] Comment on above: Performed By: #### U MICRO, UACSIND #### [facility] [address] [place] [address] Dr. Cyril Hendricks Epithelial cells LM Ql (Urine sed) MANY Abnormal NONE SEEN /RARE [facility] Comment on above: Performed By: #### U MICRO, UACSIND #### [facility] [address] [place] [address] Dr. Cyril Hendricks MUCOUS NONE SEEN Normal NONE SEEN [facility] Comment on above: Performed By: #### U MICRO, UACSIND #### [facility] [address] [place] [address] Dr. Cyril Hendricks RBC 0-2 Normal 0-2 [facility] Comment on above: Performed By: #### U MICRO, UACSIND #### [facility] [address] [place] [address] Dr. Cyril Hendricks WBC 10-20 Abnormal NONE SEEN [facility] Comment on above: Performed By: #### U MICRO, UACSIND #### [facility] [address] [place], [place] [address] Dr. Cyril Hendricks GROUP B STREP CULTUREon 12-07 S. agalactiae Ag Ql (Unsp spec) Culture Observations: NEGATIVE FOR GROUP B STREPTOCOCCUS. Normal [facility] Comment on above: Performed By: #### G BSCX #### [facility] [id number] Cyril Hendricks SSAon 12-13-2021 SSA <0.3 Normal <7.0 [facility] Comment on above: Result Comment: Reference Range: <7.0 Negative 7.0-10.0 Equivocal >10.0 Positive Performed By: #### S SARO, TSH, FT4, SSBLA #### [facility] [employer] [address] [place], [place] [id number] Field Test Engineer: Homer Hoffman MD SSBon 12-13-2021 SSB <0.3 Normal <7.0 [facility] Comment on above: Result Comment: Reference Range: <7.0 Negative 7.0-10.0 Equivocal >10.0 Positive Performed By: #### S SARO, TSH, FT4, SSBLA #### [facility] [address] [place], [place] [id number] Field Test Engineer: Homer Hoffman MD No Panel Informationon 12-12 [facility] T4, Freeon 12-12-2021 Thyroxine, Free 0.98 ng/dL 0.93 - 1.70 ng/dL [facility] TSHon 12-12-2021 TSH Qn 4.35 m[IU]/L [facility] Thyroid Stim. Horm.on 2021 Thyroid Stim. Horm. 4.35 uIU/mL Normal 0.30-5.00 [facility] Comment on above: Performed By: #### S SARO, TSH, FT4, SSBLA #### [facility] [employer] [address] [place] [id number] Field Test Engineer: Homer Hoffman MD Thyroxine, Freeon 12-12-2021 Thyroxine, Free 0.98 ng/dL Normal 0.93-1.70 [facility] Comment on above: Performed By: #### S SARO, TSH, FT4, SSBLA #### [facility] [address] [place] [address] Field Test Engineer: Homer Hoffman MD US PREG BIOPHY W [...] by: SOFIA KABA Date: 2021-11-27 13:55 Normal [facility] COVID + FLU Quick Testingon 11-13-2021 SARS-CoV-2 (COVID-19) RNA ALFREDO+probe Ql (Unsp spec) Negative [employer] Other COVID + FLU Quick Testing Negative [facility] Other GLUCOSE - 1HRon 10-23-2021 Glucose [Mass/Vol] 83 mg/dL Normal 74-106 [facility] Comment on above: Performed By: #### G LU1HR #### [facility] [address] [address] [address] Cyril Hendricks CHLAMYDIA/GONOCOCCUS ALFREDO (SW AB/URINE/PAPon 10-05-2021 Chlamydia trachomatis, ALFREDO Negative Normal Negative [facility] Comment on above: Performed By: #### C T/NGNA #### [facility] [address] [place], [place] [address] Dr. Cyril Hendricks Neisseria gonorrhoeae, ALFREDO Negative Normal Negative [facility] Comment on above: Performed By: #### C T/NGNA #### [facility] [address] [address] [address] Cyril Hendricks VAGINITIS/VAGINOSIS DNA PROB Maurice 10-04-2021 Krista species Positive Abnormal Negative [facility] Comment on above: Performed By: #### H CVPCRR #### [facility] [address] [place] [address] Dr. Cyril Hendricks Gardnerella vaginalis Negative Normal Negative [facility] Comment on above: Performed By: #### H CVPCRR #### [facility] [address] [place] [address] Dr. Cyril Hendricks Trichomonas vaginalis Negative Normal Negative [facility] Comment on above: Performed By: #### H CVPCRR #### [facility] [address] [place] [address] Dr. Cyril Hendricks HEP B SURFACE ANTIGEN SCREEN on 10-03-2021 HBsAg Screen Negative Normal Negative [facility] Comment on above: Performed By: #### H CVPCRR #### [facility] [address] [place] [address] Dr. Cyril Hendricks HEPATITIS C VIRUS AB W/ REFL EX QUANTon 10-03-2021 HCV AB <0.1 Normal 0.0-0.9 [facility] Comment on above: Performed By: #### H CVPCRR #### [facility] [address] [place] [address] Dr. Cyril Hendricks Interpretation: Comment Normal [facility] Comment on above: Result Comment: Nega tive Not infected with HCV, unless recent infection is suspected or other evidence exists to indicate HCV infection. Performed By: #### H CVPCRR #### [facility] [address] [place] [address] Dr. Cyril Hendricks HIV 1 AND 2 WITH REFLEXon HIV Screen 4th Generation wRfx Non-Reactive Normal Non Reactive [facility] Comment on above: Result Comment: HIV Negative HIV-1/HIV-2 antibodies and HIV-1 p24 antigen were NOT detected. There is no laboratory evidence of HIV infection. Performed By: #### H IV12 #### [facility] [address] [place] [address] Dr. Cyril Hendricks RPR QUANTon 10-03-2021 Rapid Plasma Reagin, Quant Non-Reactive Normal NonRea<1:1 [facility] Comment on above: Result [...] utilized, such as Treponema pallidum (Syphilis) Screening [place] (603698) or Rapid Plasma Reagin (RPR) Test With Reflex to Quantitative RPR and Confirmatory Treponema pallidum Antibodies (694276). Performed By: #### U MICRO, UACSIND #### [facility] [address] [place] [address] Dr. Cyril Hendricks RUBELLA AB IGGon 10-03-2021 Rubella Antibodies, IgG <0.90 Critically low Immune > 0.99 [facility] Comment on above: Result Comment: Non- immune <0.90 Equivocal 0.90 - 0.99 Immune >0.99 Performed By: #### U MICRO, UACSIND #### [facility] [address] [place] [address] Dr. Cyril Hendricks CBC AUTO DIFFon 10-02-2021 BASO # 0.1 103/ul Normal 0.0-0.1 [facility] Comment on above: Performed By: #### U MICRO, UACSIND #### [facility] [address] [place] [address] Dr. Cyril Hendricks Basophils/100 WBC (Bld) 0.4 % Normal 0.2-2.0 [facility] Comment on above: Performed By: #### U MICRO, UACSIND #### [facility] [address] [place] [address] Dr. Cyril Hendricks EO # 0.1 103/ul Normal 0.0-0.7 [facility] Comment on above: Performed By: #### U MICRO, UACSIND #### [facility] [address] [place] [address] Dr. Cyril Hendricks Eosinophils/100 WBC (Bld) 1.1 % Normal 0.9-7.0 [facility] Comment on above: Performed By: #### U MICRO, UACSIND #### [facility] [address] [place] [address] Dr. Cyril Hendricks Erythrocyte distribution width (RBC) [Ratio] 13.5 % Normal 11.0-15.0 [facility] Comment on above: Performed By: #### U MICRO, UACSIND #### [facility] [address] [place] [address] Dr. Cyril Hendricks Hematocrit (Bld) [Volume fraction] 34.5 % Critically low 36.0-48.0 [facility] Comment on above: Performed By: #### U MICRO, UACSIND #### [facility] [address] [place] [address] Dr. Cyril Hendricks Hemoglobin (Bld) [Mass/Vol] 12.0 g/dL Normal 12.0-16.0 [facility] Comment on above: Performed By: #### U MICRO, UACSIND #### [facility] [address] [place] [address] Dr. Cyril Hendricks IG # 0.04 10e3/ul Critically high 0.00-0.03 [facility] Comment on above: Performed By: #### U MICRO, UACSIND #### [facility] [address] [place] [address] Dr. Cyril Hendricks IG % 0.3 % Normal 0.0-0.5 [facility] Comment on above: Performed By: #### U MICRO, UACSIND #### [facility] [address] [place] [address] Dr. Cyril Hendricks LYMPH # 2.6 103/ul Normal 1.2-3.8 [facility] Comment on above: Performed By: #### U MICRO, UACSIND #### [facility] [address] [place] [address] Dr. Cyril Hendricks Lymphocytes/100 WBC (Bld) 21.3 % Normal 20.5-60.0 [facility] Comment on above: Performed By: #### U MICRO, UACSIND #### [facility] [address] [address] [address] Cyril Hendricks MANUAL DIFF REQ NO Normal [facility] Comment on above: Performed By: #### U MICRO, UACSIND #### [facility] [address] [address] [address] Cyril Hendricks MCH (RBC) [Entitic mass] 32.5 pg Normal 26.7-34.0 [facility] Comment on above: Performed By: #### U MICRO, UACSIND #### [facility] [address] [address] [address] Cyril Hendricks MCHC (RBC) [Mass/Vol] 34.8 g/dL Normal 29.9-35.2 [facility] Comment on above: Performed By: #### U MICRO, UACSIND #### [facility] [address] [place] [address] Dr. Cyril Hendricks MCV (RBC) [Entitic vol] 93.5 fL Normal 81.0-99.0 [facility] Comment on above: Performed By: #### U MICRO, UACSIND #### [facility] [address] [address] [address] Cyril Hendricks MONO # 0.8 103/ul Normal 0.3-0.8 [facility] Comment on above: Performed By: #### U MICRO, UACSIND #### [facility] [address] [address] [address] Cyril Hendricks Monocytes/100 WBC (Bld) 6.2 % Normal 1.7-12.0 [facility] Comment on above: Performed By: #### U MICRO, UACSIND #### [facility] [address] [address] [address] Cyril Hendricks NEUT # 8.6 103/ul Critically high 1.4-6.5 [facility] Comment on above: Performed By: #### U MICRO, UACSIND #### [facility] [address] [place] [address] Dr. Cyril Hendricks Neutrophils/100 WBC (Bld) 70.7 % Normal 43.0-75.0 [facility] Comment on above: Performed By: #### U MICRO, UACSIND #### [facility] [address] [address] [address] Cyril Hendricks Platelet mean volume (Bld) [Entitic vol] 9.1 fL Critically low 9.5-13.5 [facility] Comment on above: Performed By: #### U MICRO, UACSIND #### [facility] [address] [address] [address] Cyril Hendricks PLT 257 103/ul Normal 150-450 [facility] Comment on above: Performed By: #### U MICRO, UACSIND #### [facility] [address] [address] [address] Cyril Hendricks RBC 3.69 106/ul Critically low 4.20-5.40 [facility] Comment on above: Performed By: #### U MICRO, UACSIND #### [facility] [address] [address] [address] Cyril Hendricks WBC 12.2 103/ul Critically high 4.0-11.0 [facility] Comment on above: Performed By: #### U MICRO, UACSIND #### [facility] [address] [address] [address] Cyril Hendricks CULTURE URINEon 10-02-2021 CULTURE URINE Culture Observations: MODERATE GROWTH OF MIXED GENITAL DRAGAN. NO POTENTIAL PATHOGENS SEEN. Normal [facility] Comment on above: Performed By: #### H CVPCRR #### [facility] [address] [place] [address] Dr. Cyril Hendricks GLYCOHEMOGLOBIN A1Con 2021 ADA RECOMMENDATION SEE BELOW Normal [facility] Comment on above: Result Comment: ADA RECOMMENDED LIMIT 4.0 - 6.0 ADA THERAPEUTIC TARGET < 7.0 ACTION SUGGESTED > 7.0 Performed By: #### H CVPCRR #### [facility] [address] [place] [address] Dr. Cyril Hendricks Glucose [Mass/Vol] 80 mg/dL Normal [facility] Comment on above: Performed By: #### H CVPCRR #### [facility] [address] [place], [place] [address] Dr. Cyril Hendricks HbA1c (Bld) [Mass fraction] 4.4 % Critically low 4.5-6.2 [facility] Comment on above: Performed By: #### H CVPCRR #### [facility] [address] [place], [place] [address] Dr. Cyril Hendricks TYPE AND SCREENon 10-02-2021 TYPE AND SCREEN Negative Normal [facility] Comment on above: Performed By: #### H CVPCRR #### [facility] [address] [place], [place] [address] Dr. Cyril Hendricks US PREG PLACENTAon 2 [...] (44% by ultrasound, 29% by expected) FL/AC: [id number] FL/BPD: 0.137666 HC/AC: 1.199598 GESTATIONAL AGE: Age by EDC: 21 weeks, 3 days NOY by EDC: 01/12/2022 Age by current US: 21 weeks, 1 day NOY by current US: 01/14/2022 IMPRESSION: 1. Single live intrauterine with growth detailed above. 2. Posterior, low-lying placenta. Electronically authenticated by: MARS FRANKEL Date: 2021-09-04 16:30 Normal [facility] Vital Signs Date Time Vital Sign Value Performing Clinician Facility 02-03-2024 09:23-0400 Body temperature 97.88 [degF] Siva Schulte [facility] 02-03-2024 09:23-0400 Diastolic blood pressure 70 mm[Hg] Siva Schulte [facility] 02-03-2024 09:23-0400 Heart rate 85 /min Siva Schulte [facility] 02-03-2024 09:23-0400 Respiratory rate 18 /min Siva Schulte [facility] 02-03-2024 09:23-0400 SaO2% (BldA) [Mass fraction] 99 % Siva Schulte [facility] 02-03-2024 09:23-0400 Systolic blood pressure 106 mm[Hg] Siva Schulte [facility] 09-23-2023 09:16-0400 Body temperature 98.42 [degF] Wil Chandra [facility] 09-23-2023 09:16-0400 Diastolic blood pressure 68 mm[Hg] Wil Chandra [facility] 09-23-2023 09:16-0400 Heart rate 82 /min Wil Chandra [facility] 09-23-2023 09:16-0400 Respiratory rate 18 /min Wil Chandra [facility] 09-23-2023 09:16-0400 SaO2% (BldA) [Mass fraction] 97 % Wil Chandra [facility] 09-23-2023 09:16-0400 Systolic blood pressure 98 mm[Hg] Wil Chandra [facility] 08-27-2023 12:24-0400 Diastolic blood pressure 61 mm[Hg] [facility] 08-27-2023 12:24-0400 Heart rate 77 /min [facility] 08-27-2023 12:24-0400 Mean blood pressure 72 mm[Hg] [facility] 08-27-2023 12:24-0400 Respiratory rate 16 /min [facility] 08-27-2023 12:24-0400 SaO2% (BldA) [Mass fraction] 97 % [facility] 08-27-2023 12:24-0400 Systolic blood pressure 93 mm[Hg] [facility] 08-27-2023 11:30-0400 Diastolic blood pressure 69 mm[Hg] [facility] 08-27-2023 11:30-0400 Heart rate 74 /min [facility] 08-27-2023 11:30-0400 Mean blood pressure 82 mm[Hg] [facility] 08-27-2023 11:30-0400 Respiratory rate 16 /min [facility] 08-27-2023 11:30-0400 SaO2% (BldA) [Mass fraction] 99 % [facility] 08-27-2023 11:30-0400 Systolic blood pressure 107 mm[Hg] [facility] 08-27-2023 10:30-0400 Diastolic blood pressure 62 mm[Hg] [facility] 08-27-2023 10:30-0400 Heart rate 91 /min [facility] 08-27-2023 10:30-0400 Mean blood pressure 77 mm[Hg] [facility] 08-27-2023 10:30-0400 Respiratory rate 18 /min [facility] 08-27-2023 10:30-0400 SaO2% (BldA) [Mass fraction] 100 % [facility] 08-27-2023 10:30-0400 Systolic blood pressure 107 mm[Hg] [facility] 08-27-2023 09:41-0400 Body temperature 98.6 [degF] [facility] 08-27-2023 09:41-0400 Heart rate 80 /min [facility] 01-04-2023 00:03-0400 Body temperature 98.78 [degF] Siva Schulte [facility] 01-04-2023 00:03-0400 Diastolic blood pressure 54 mm[Hg] Siva Schulte [facility] 01-04-2023 00:03-0400 Heart rate 97 /min Siva Schulte [facility] 01-04-2023 00:03-0400 Mean blood pressure 70 mm[Hg] Siva Schulte [facility] 01-04-2023 00:03-0400 Respiratory rate 18 /min iSva Schulte [facility] 01-04-2023 00:03-0400 SaO2% (BldA) [Mass fraction] 94 % Siva Schulte [facility] 01-04-2023 00:03-0400 Systolic blood pressure 102 mm[Hg] Siva Eris [facility] 01-03-2023 23:00-0400 Body temperature 100.04 [degF] Siva Eris [facility] 01-03-2023 23:00-0400 Diastolic blood pressure 62 mm[Hg] Siva Eris [facility] 01-03-2023 23:00-0400 Heart rate 100 /min Siva Eris [facility] 01-03-2023 23:00-0400 Mean blood pressure 75 mm[Hg] Siva Eris [facility] 01-03-2023 23:00-0400 Systolic blood pressure 100 mm[Hg] Siva Eris [facility] 01-03-2023 22:42-0400 Body temperature 100.76 [degF] Siva Ersi [facility] 01-03-2023 22:42-0400 Diastolic blood pressure 59 mm[Hg] Siva Eris [facility] 01-03-2023 22:42-0400 Heart rate 105 /min Siva Eris [facility] 01-03-2023 22:42-0400 Respiratory rate 20 /min Siva Eris [facility] 01-03-2023 22:42-0400 SaO2% (BldA) [Mass fraction] 99 % Siva Eris [facility] 01-03-2023 22:42-0400 Systolic blood pressure 96 mm[Hg] Siva Eris [facility] 10-02-2022 21:29-0400 Diastolic blood pressure 72 mm[Hg] PHYSICIAN [facility] 10-02-2022 21:29-0400 Heart rate 94 /min PHYSICIAN NO [facility] 10-02-2022 21:29-0400 Respiratory rate 18 /min PHYSICIAN NO [facility] 10-02-2022 21:29-0400 SaO2% (BldA) [Mass fraction] 98 % PHYSICIAN NO [facility] 10-02-2022 21:29-0400 Systolic blood pressure 141 mm[Hg] PHYSICIAN NO [facility] 10-02-2022 17:03-0400 Body height 170.18 cm PHYSICIAN NO [facility] 10-02-2022 17:03-0400 Body temperature 98.3 [degF] PHYSICIAN NO [facility] 10-02-2022 17:03-0400 Body weight 76.4 kg PHYSICIAN NO [facility] 09-25-2022 13:25-0400 Body height 170.18 cm Viet Yuri Other [employer] Other 09-25-2022 13:25-0400 Body mass index (BMI) [Ratio] 26.62 kg/m2 Viet Welch Other [employer] Other 09-25-2022 13:25-0400 Body temperature 98.2 [degF] Viet Welch Other [employer] Other 09-25-2022 13:25-0400 Body weight 77.11 kg Viet Welch Other [employer] Other 09-25-2022 13:25-0400 Diastolic blood pressure 68 mm[Hg] Viet Welch Other [employer] Other 09-25-2022 13:25-0400 Respiratory rate 18 /min Viet Welch Other [employer] Other 09-25-2022 13:25-0400 SaO2% (BldA) [Mass fraction] 98 % Viet Welch Other [facility] Other 09-25-2022 13:25-0400 Systolic blood pressure 107 mm[Hg] Viet Welch Other [facility] Other 09-06-2022 13:54-0400 Diastolic blood pressure 72 mm[Hg] Wil Corazon [facility] 09-06-2022 13:54-0400 Heart rate 60 /min Wil Corazon [facility] 09-06-2022 13:54-0400 Respiratory rate 16 /min Wil Corazon [facility] 09-06-2022 13:54-0400 SaO2% (BldA) [Mass fraction] 100 % Wil Corazon [facility] 09-06-2022 13:54-0400 Systolic blood pressure 103 mm[Hg] Wil Corazon [facility] 09-06-2022 11:41-0400 Diastolic blood pressure 65 mm[Hg] Wil Corazon [facility] 09-06-2022 11:41-0400 Heart rate 58 /min Wil Corazon [facility] 09-06-2022 11:41-0400 Mean blood pressure 77 mm[Hg] Wil Corazon [facility] 09-06-2022 11:41-0400 Respiratory rate 16 /min Wil Corazon [facility] 09-06-2022 11:41-0400 SaO2% (BldA) [Mass fraction] 100 % Wil Corazon [facility] 09-06-2022 11:41-0400 Systolic blood pressure 102 mm[Hg] Wil Chandra [facility] 09-06-2022 10:42-0400 Body temperature 98.24 [degF] Wil Chandra [facility] 09-06-2022 10:42-0400 bodymassindex 1.17 Wil Chandra [facility] Comment on above: Result [facility]: [facility] 10:42-0400 Diastolic blood pressure 71 mm[Hg] Wil Chandra [facility] 09-06-2022 10:42-0400 Heart rate 73 /min Wil Chandra [facility] 09-06-2022 10:42-0400 Height/Length Percentile 84.89 Wil Chandra [facility] Comment on above: Result Comment: ^~:!Percentile [facility] 09-06-2022 10:42-0400 Height/Length Z-Score 1.03 Wil Chandra [facility] Comment on above: Result Comment: [facility]-2022 10:42-0400 Respiratory rate 16 /min Wil Chandra [facility] 09-06-2022 10:42-0400 SaO2% (BldA) [Mass fraction] 98 % Wil Chandra [facility] 09-06-2022 10:42-0400 Systolic blood pressure 111 mm[Hg] Wil Chandra [facility] 09-06-2022 10:42-0400 weight 1.47 Wil Chandra [facility] Comment on above: Result Comment: [facility]22 10:42-0400 Weight Percentile 92.90 % Wil Chandra [facility] Comment on above: Result Comment: ^~:!Percentile Source -[facility] 08-14-2022 21:30-0500 Diastolic blood pressure 79 mm[Hg] Bob Llanos [facility] 08-14-2022 21:30-0500 Heart rate 87 /min Bob Llanos [facility] 08-14-2022 21:30-0500 Mean blood pressure 93 mm[Hg] Bob Llanos [facility] 08-14-2022 21:30-0500 Nursing Progress Note Reason Other: pt to US via stretcher at this time. Bob Llaons [facility] 08-14-2022 21:30-0500 Respiratory rate 16 /min Bob Llanos [facility] 08-14-2022 21:30-0500 SaO2% (BldA) [Mass fraction] 100 % Bob Llanos [facility] 08-14-2022 21:30-0500 Systolic blood pressure 120 mm[Hg] Bob Llanos [facility] 08-14-2022 19:20-0500 Body temperature 98.96 [degF] Bob Llanos [facility] 08-14-2022 19:20-0500 bodymassindex 1.17 Bob Llanos [facility] Comment on above: Result Comment: ^~:!ZScore Source [facility] 08-14-2022 19:20-0500 Diastolic blood pressure 61 mm[Hg] Bob Llanos [facility] 08-14-2022 19:20-0500 Heart rate 98 /min Bob Llanos [facility] 08-14-2022 19:20-0500 Height/Length Percentile 84.91 Bob Llanos [facility] Comment on above: Result Comment: ^~:!Percentile Source -[facility] 08-14-2022 19:20-0500 Height/Length Z-Score 1.03 Bob Llanos [facility] Comment on above: Result Comment: ^~:!ZScore [facility] 08-14-2022 19:20-0500 Respiratory rate 16 /min Bob Llanos [facility] 08-14-2022 19:20-0500 SaO2% (BldA) [Mass fraction] 99 % Bob Llanos [facility] 08-14-2022 19:20-0500 Systolic blood pressure 114 mm[Hg] Bob Llanos [facility] 08-14-2022 19:20-0500 weight 1.47 Bob Llanos [facility] Comment on above: Result Comment: ^~:!ZScore [facility] 08-14-2022 19:20-0500 Weight Percentile 92.94 % Bob Llanos [facility] Comment on above: Result Comment: ^~:!Percentile Source - [employer] 06-24-2022 13:30-0500 Body height 170.18 cm Viet Welch Other [employer] Other 06-24-2022 13:30-0500 Body mass index (BMI) [Ratio] 26.62 kg/m2 Viet Welch Other [employer] Other 06-24-2022 13:30-0500 Body temperature 97.8 [degF] Viet Welch Other [employer] Other 06-24-2022 13:30-0500 Body weight 77.11 kg Viet Welch Other [employer] Other 06-24-2022 13:30-0500 Diastolic blood pressure 63 mm[Hg] Viet Welch Other [employer] Other 06-24-2022 13:30-0500 Respiratory rate 18 /min Viet Welch Other [employer] Other 06-24-2022 13:30-0500 SaO2% (BldA) [Mass fraction] 98 % Viet Welch Other [employer] Other 06-24-2022 13:30-0500 Systolic blood pressure 97 mm[Hg] Viet Welch Other [employer] Other 11-13-2021 14:05-0400 Body height 170.18 cm Michael Oneil Other [employer] Other 11-13-2021 14:05-0400 Body mass index (BMI) [Ratio] 26.62 kg/m2 Michael Oneil Other [employer] Other 11-13-2021 14:05-0400 Body temperature 98.4 [degF] Michael Oneil Other [employer] Other 11-13-2021 14:05-0400 Body weight 77.11 kg Michael Oneil Other [employer] Other 11-13-2021 14:05-0400 Respiratory rate 18 /min Michael Oneil Other [employer] Other 11-13-2021 14:05-0400 SaO2% (BldA) [Mass fraction] 98 % Michael Oneil Other [employer] Other 11-06-2021 15:45-0400 Body height Kendra Witt Other [employer] Other 11-06-2021 15:45-0400 Body mass index (BMI) [Ratio] 26.62 kg/m2 Kendra Witt Other [employer] Other 11-06-2021 15:45-0400 Body weight 77.11 kg Kendra Iwtt Other [employer] Other 11-06-2021 15:45-0400 Respiratory rate 20 /min Kendra Witt Other [employer] Other 11-06-2021 15:45-0400 SaO2% (BldA) [Mass fraction] 98 % Kendra Witt Other [employer] Other Encounters Encounter Date Encounter Type Care Provider Facility Start: 03-01-2024 End: 03-01-2024 ambulatory JUVENAL MIRI Not Available Start: 02-16-2024 End: 02-16-2024 ambulatory GONSALO CORRAL Not Available Start: 02-03-2024 End: 02-03-2024 Emergency department patient visit Siva Schulte [facility] Start: 01-26-2024 End: 01-26-2024 ambulatory JUVENAL MIRI Not Available Start: 12-29-2023 End: 12-29-2023 ambulatory GONSALO ELLIS Not Available Start: 12-22-2023 End: 12-22-2023 ambulatory JUVENAL R [facility] Start: 12-01-2023 End: 12-01-2023 ambulatory JUVENAL MIRI Not Available Start: 11-10-2023 End: 11-10-2023 ambulatory JUVENAL [facility] Start: 10-27-2023 End: 10-27-2023 ambulatory GONSALO CORRAL Not Available Start: 09-29-2023 End: 09-29-2023 ambulatory JUVENAL RAMIREZO Not Available Start: 09-23-2023 End: 09-23-2023 Emergency department patient visit Wil Corazon [facility] Start: 09-04-2023 End: 09-04-2023 ambulatory JUVENAL THORPE Not Available Start: 08-27-2023 End: 08-27-2023 Emergency department patient visit Emily Browningyusef [facility] Start: 08-18-2023 End: 08-18-2023 ambulatory SELAM ELSA [facility] Start: 01-03-2023 End: 01-04-2023 Emergency department patient visit Siva Schulte [facility] Start: 12-12-2022 End: 12-12-2022 ambulatory Kenneth Lina Other [employer] Other Start: 12-12-2022 Telephone encounter Kenneth Lina [facility] Start: 10-02-2022 End: 10-02-2022 Emergency department patient visit Jose Silverman Facility:[facility] Start: 10-02-2022 End: 10-02-2022 Emergency department patient visit PHYSICIAN SJ LERNER [facility] Work Phone: Start: 09-25-2022 End: 09-25-2022 ambulatory Viet Welch Other [employer] Other Start: 09-25-2022 Office outpatient visit 15 minutes Viet Welch [facility] Start: 09-06-2022 End: 09-06-2022 Emergency department patient visit Wil Chandra [facility] Start: 08-14-2022 End: 08-14-2022 Emergency department patient visit Bob Llanos [facility] Start: 07-11-2022 End: 07-11-2022 ambulatory ROSEANN CORRAL Facility:[facility] Start: 06-24-2022 End: 06-24-2022 ambulatory Viet Welch Other [employer] Other Start: 06-24-2022 Office outpatient visit 15 minutes Viet Welch [facility] Start: 01-11-2022 End: 01-11-[address] NIEVES LISTED REQUEST Facility:[facility] Start: 01-07-2022 End: 01-09-2022 Evaluation and management of inpatient DR RENATA GEORGES Facility:[facility] Start: 12-29-2021 End: 12-29-[address] JUVENAL THORPE Facility:[facility] Start: 12-19-2021 End: 12-19-[address] JUVENAL THORPE Facility:[facility] Start: 12-12-2021 End: 12-13-2021 ambulatory [facility] Start: 12-12-2021 End: 12-12-2021 Subsequent hospital visit by physician SUSI De La Paz Start: 11-27-2021 End: 11-27-[address] SOFIA KABA Facility:[facility] Start: 11-13-2021 End: 11-13-2021 ambulatory Michael Oneil Other [employer] Other Start: 11-13-2021 Office outpatient visit 15 minutes Michael Oneil [facility] Start: 11-06-2021 End: 11-06-2021 ambulatory Kendra Witt Other [employer] Other Start: 11-06-2021 Office outpatient visit 25 minutes Kendra Witt [facility] Start: 10-23-2021 End: 10-24-2021 ambulatory [...] identified in Urine by Culture Urine Culture [facility] Start: 02-07-2022 Influenza vaccination Flu vaccine (# 1) [facility] Start: 01-09-2022 End: 01-09-2022 Patient encounter procedure 01/09/2022 Routine Perinatology [facility] Start: 01-02-2022 End: 01-02-2022 Patient encounter procedure 01/02/2022 Routine Perinatology [facility] Start: 12-26-2021 End: 12-26-2021 Patient encounter procedure 12/26/2021 Routine Perinatology [facility] Start: 12-20-2021 End: 12-20-2021 Patient encounter procedure 12/20/2021 Routine Perinatology [facility] Start: 2021 DTaP/Tdap/Td vaccine (1 - Tdap) DTaP/Tdap/Td vaccine (1 - Tdap) [facility] Start: 2020 Hepatitis C screening Hepatitis C sc reen [facility] Start: 2018 Screening for Chlamy nazanin trachomatis Chlamydia screen [facility] Start: 2017 HIV screening HIV screen [facility] [employer] [facility] Start: 2014 Depression Monitoring Depression Mon itoring [facility] [employer] [facility] Start: 2013 HPV vaccine (1 - 2-d ose series) HPV vaccine (1 - 2-dose series) [facility] Start: 09-16-2007 COVID-19 Vaccine (1) COVID-19 Vaccin e (1) [facility] Start: 09-16-2003 Varicella vaccine (1 of 2 - 2-dose childhood series) Varicella vaccine (1 of 2 - 2-dose childhood series) [facility] Patient Education Depression, Adult ED [facility] Work Phone: Patient referral [facility] Work Phone: End: 12-12-2021 Sjogrens syndrome-A extractable nuclear antibody [facility] Work Phone: Comment on above: Once for 1 Occurrenc es starting 12/12/2021 until 12/12/2021 End: 12-12-2021 Sjogrens syndrome-B extractable nuclear antibody [facility] Work Phone: Comment on above: Once for 1 Occurrenc es starting 12/12/2021 until 12/12/2021 Immunizations Immunization Date Immunization Notes Care Provider Simona galarza NEGATED: Highlighted row has not occurred!11-05-2019 influenza, injectable, quadrivalent, contains preservative Kendra Witt Other [employer] Other NEGATED: Highlighted row has not occurred!04-10-2019 influenza virus vaccine, unspecified formulation Bob Llanos [facility] Payers Date Payer Category Payer Self-pay [id number] 2002 Unknown [id number] 2.16. [id number] 2002 Unknown [id number] 2.16.84 0.1.506822.3.579.2.593 2002 Unknown [id number] 2.16.84 0.1.304095.3.579.2.593 2002 Unknown [id number] 2.16.84 0.1.801586.3.579.2.593 2002 Unknown [id number] 2.16.84 0.1.140389.3.579.2.593 2002 Unknown [id number] 2.16.84 0.1.869821.3.579.2.593 2002 Unknown [id number] 2.16.84 0.1.465906.3.579.2.593 2002 Unknown [id number] 2.16.84 0.1.176398.3.579.2.593 2002 Unknown [id number] 2.16.84 0.1.620531.3.579.2.593 2002 Unknown [id number] 2.16.84 0.1.424811.3.579.2.593 2002 Unknown [id number] 2.16.84 0.1.397277.3.579.2.593 2002 Unknown [id number] 2.16.84 0.1.145791.3.579.2.593 2002 Unknown [id number] 2.16.8 40.1.446783.3.579.2.1286 2002 Unknown [id number] 2.16.8 40.1.587583.3.579.2.1286 2002 Unknown [id number] 2.16.8 40.1.882583.3.579.2.1286 2002 Unknown [id number] 2.16.8 40.1.975838.3.579.2.727 2002 Unknown [id number] 2.16.8 40.1.917884.3.579.2.727 2002 Unknown [id number] 2.16.8 40.1.085248.3.579.2.727 2002 Unknown [id number] 2.16.8 40.1.743697.3.579.2.727 2002 Unknown [id number] 2.16.8 40.1.923125.3.579.2.727 2002 Unknown [id number] 2.16.84 0.1.601075.3.579.2.1259 2002 Unknown [id number] 2.16.84 0.1.156720.3.579.2.9 2002 Unknown [id number] 2.16.84 0.1.515812.3.579.2.9 2002 Unknown [id number] 2.16.84 0.1.699846.3.579.2.9 2002 Unknown [id number] 2.16.84 0.1.992235.3.579.2.9 2002 Unknown [id number] 2.16.84 0.1.874338.3.579.2.9 2002 Unknown [id number] 2.16.84 0.1.445673.3.579.2.9 2002 Unknown [id number] 2.16.84 0.1.670954.3.579.2.1259 1959 Unknown [id number] 2.1 6.840.1.960776.19 1959 Unknown [id number] Unknown [id number] 2.16.8 40.1.917754.3.579.2.531 Social History Date Type Detail Facility Sex Assigned At [facility] Start: 11-28-2021 Tobacco smoking stat [facility] Never smoked tobacco [employer] Phone: Start: 11-28-2021 Tobacco use and exposure Smokeless tobacco non-user [employer] Phone: Start: 12-12-2021 Alcohol intake Ex-drinker (finding) [facility] [employer] Work Phone: Start: 12-12-2021 Tobacco Comment no longer vapes [employer] Phone: Start: 04-21-2021 [facility] [employer] Work Phone: Start: 2002 Sex Assigned At Not on file [facility] [employer] Work Phone: Tobacco Current vaping o r e-cigarette use Smokeless Tobacco Use:. Vaping [facility] Tobacco smoking status No Smokin g Status Entered [facility] Start: 10-02-2022 Tobacco smoking stat us MAIS Smoker (finding) [facility] Start: 2002 Sex Assigned At Female F [facility] Functional Status Date Assessment Result Facility 02-03-2024 Functional Status N/A [facility] 09-23-2023 Functional Status N/A [facility] 08-27-2023 Functional Status N/A [facility] 01-03-2023 Functional Status N/A [facility] 09-06-2022 Functional Status N/A [facility] 08-14-2022 Functional Status N/A [facility] Clinical Notes 11-06-2021 to 02-03-2024 Note Date & Type Note Facility 02-03-2024 Evaluation + Plan note Extrac ruby from: Title:ED Note Author:Duc Swanson PA-C te:02/03/24 Sore throat (J02.9: Acute ph aryngitis, unspecified) Viral URI (J06.9: Acute upper respiratory infection, unspecified) Orders: Group A Strep by PCR Rapid Strep w/rfx Diagnostic Tests Pending * Group A Strep by PCR 02/03/24 [facility] 08-27-2024 Hospital Discharge instructions Patient [...] medicines to help relieve symptoms, such as: Glob-mmq-mxfanpr cold medicines. Cough suppressants. Coughing is a [...] and other clear broths. General instructions Take qcvy-kmw-aubcyrg and prescription medicines only as told by [...] and water are not available, use hand collections director. Avoid touching your mouth, face, eyes, or [...] provider. Document Revised: 12/26/2021 Document Reviewed: 12/26/2021 [employer] Patient Education 2022 [employer]. Follow Up Care 02/03/2024 09:23:13 With:Juvenal THORPE Address: [address] , [place] [address]- Business (1) When:02/06/2024 11:12:27 With:SELAM HUNTER Address: [address] [place] [address] Business (1) When:02/06/2024 11:12:21 [facility] 08-27-2024 NoteED Patient Education Note [...] to help relieve symptoms, such as: ? Rliu-gfb-qstzsgw cold medicines. ? Cough suppressants. Coughing is [...] other clear broths. General instructions ? Take vzmy-shb-wkvpepl and prescription medicines only as told by [...] soap and water are not available,use hand collections director. ? Avoid touching your mouth, face, eyes, [...] Mood. These symptoms m (more content not included)...[facility] 09-23-2023 Hospital Discharge instructions Patient [...] provider. Document Revised: 02/19/2021 Document Reviewed: 02/19/2021 [employer] Patient Education 2022 [employer]. Follow Up Care 09/23/2023 09:11:45 With:Juvenal THORPE Address: [address] [place] [address] Business (1) When:09/26/2023 11:44:07 [facility]03-20-2024 Hospital Discharge instructions Patient Education [...] provider. Document Revised: 01/09/2022 Document Reviewed: 01/09/2022 [employer] Patient Education 2022 [employer]. 08/27/2023 12:34:16 Urinary Tract Infection, Adult, Kuni-ia-Ixmz Urinary Tract Infection, Adult A urinary tract [...] Follow these instructions at home: Medicines Take aund-ane-uaegklr and prescription medicines only as told by [...] provider. Document Revised: 01/05/2021 Document Reviewed: 01/05/2021 [employer] Patient Education 2022 [employer]. 08/27/2023 12:34:16 Subchorionic Hematoma Subchorionic Hematoma A [...] provider. Document Revised: 02/19/2021 Document Reviewed: 02/19/2021 [employer] Patient Education 2022 [employer]. Follow Up Care 08/27/2023 09:39:16 With:Juvenal THORPE Address: [address] [place] [address] Business (1) When:08/30/2023 12:05:10 With:SELAM HUNTER Address: [facility] [place] [address] Business (1) When:Within 3 Day(s) [facility]03-20-2024 Evaluation + Plan noteExtracted from: [...] day(s), # 28 cap(s), Refills(s) 0, Pharmacy: [facility], 170, cm, 08/27/23 9:49:00 EDT, Height/Length Dosing, 78.7, kg, 08/27/23 9:49:00 EDT, Weight Dosing ABO/Rh Basic Metabolic Panel Beta hCG Quantitative CBC w/ Auto Diff eGFR Extra Blue Tube Extra SST Tube UA with Cult Rflx Urine Culture US 1st Trimester US Transvaginal Diagnostic Tests Pending * Urine Culture 08/27/23 [facility]07-29-2023 Hospital Discharge instructions Patient Education 01/04/2023 00:13:01 Pharyngitis, Jznh-eh-Ttbi Pharyngitis Pharyngitis is a sore throat (pharynx). [...] Follow these instructions at home: Medicines Take eblh-zhc-rghcxzl and prescription medicines only as told by [...] and water are not available, use hand collections director. Do not touch your eyes, nose, or [...] provider. Document Revised: 08/22/2021 Document Reviewed: 08/22/2021 [employer] Patient Education 2022 [employer]. Follow Up Care 01/03/2023 22:32:55 With:Thony Carl Address: [address] [place] [address] [place] [address] [facility] (1) When:01/06/2023 Comments:Follow-up with your primary care provider in 3 to 5 days. If symptoms worsen, do not improve, or new symptoms arise please report back to emergency department for further evaluation. [facility]07-28-2023 Evaluation + Plan noteExtracted from: [...] q12hr, # 20 cap(s), Refills(s) 0, Pharmacy: [facility], 170, cm, 01/03/23 22:44:00 EDT, [...] Hepatic Function Panel Lipase Level [facility]04-19-2023 Evaluation note* Encounter Date Diagnosis [...] of symptoms occur by end of treatment. [facility] Other 03-31-2023 Hospital Discharge instructions Patient Education [...] Follow these instructions at home: Medicines Take jkwy-vpj-iqllgqb and prescription medicines only as told by [...] important. Where to find more information [employer]: www.acog.org [place] [...] Document Reviewed: 07/01/2017 Elsevier Patient Education 2019 [employer]. Follow Up Care 09/06/2022 10:42:16 With:Juvenal THORPE Address: [address] [place] [address]- Business (1) When:09/09/2022 13:46:05 [facility]03-09-2023 Hospital Discharge instructions Patient Education 08/14/2022 22:12:46 Abdominal Pain During , Hfee-po-Xgip Abdominal Pain During Belly (abdominal) pain is [...] keep your pee (urine) pale yellow. Take ahfm-fbx-mryrkwm and prescription medicines only as told by [...] 05/14/2010 Document Revised: 09/13/2019 Document Reviewed: 08/28/2017 [employer] Patient Education 2020 [employer]. 08/14/2022 22:12:46 Abdominal Pain, Adult, Jgwm-um-Kgnf Abdominal Pain, Adult Many things can cause belly (abdominal) pain. Most times, belly pain is not dangerous. Many cases of belly pain can be watched and treated at home. Sometimes, though, belly pain is serious. Your doctor will try to find the cause of your belly pain. Follow these instructions at home: Medicines Take arcx-hwm-ghcrqwv and prescription medicines only as told by [...] your belly pain for any changes. Take qkrd-hme-xscvprw and prescription medicines only as told by [...] 11/11/2008 Document Revised: 10/04/2019 Document Reviewed: 10/04/2019 [employer] Patient Education 2020 [employer]. Follow Up Care 08/14/2022 18:41:38 With:Juvenal THORPE Address: [address] , [place] [address]- Business (1) When:08/17/2022 Comments:Follow-up with Dr. Thorpe for further evaluation of your . With:Juventino Carbajal Address: [address] [place] [phone] When:08/17/2022 Comments:Follow-up with your primary care provider in 3 to 5 days. If symptoms worsen, do not improve, or new symptoms arise please report back to emergency department for further evaluation. [facility]01-16-2023 Evaluation note* Encounter Date Diagnosis [...] return precautions. Jun, Cough (ICD-10 - R05.9) [facility] Other 06-07-2022 Evaluation note* Encounter Date Diagnosis [...] Pt understood and agreed to tx plan. [facility] Other [id number] Evaluation note* Encounter Date Diagnosis Assessment Notes [...] condition October, Sore throat (ICD-10 - J02.9) [facility] Other Evaluation + Plan note No data available for this section [facility] noteNo assessment information available [facility] Work Phone: Evaluation noteNo [facility] Other History general Narrative - Reported* Type Description Date Medical History fx lt elbow at age 7 Surgical History surgical repair of left elbow f racture at age 7 Hospitalization History see surgical hx [facility] Other Progress note No data available for this section [facility] Summary Purpose Family History No [...] section and content) DATE CREATED AUTHOR 01/05/2022 [facility] DATE CREATED AUTHOR AUTHOR'S ORGANIZ ATION 07/15/2022 [facility] DATE CREATED AUTHOR AUTHOR'S ORGANIZ ATION 10/10/2022 [facility] DATE CREATED AUTHOR AUTHOR'S ORGANIZ ATION 12/26/2023 [facility] DATE CREATED AUTHOR AUTHOR'S ORGANIZ ATION 02/05/2024 [facility] DATE CREATED AUTHOR AUTHOR'S ORGANIZ ATION 02/06/2024 [facility] DATE CREATED AUTHOR AUTHOR'S ORGANIZ ATION 03/03/2024 [facility] EPIC Care Teams (unrecognized sec tion and content) Personnel Name: ELSA VELEZ SELAM J Address: Address: [address] [place] [address] Team Status: Active Member Role Status Dates [...] BE BASED ON THE PRIMARY CLINICAL RECORDS. [facility], [facility]. provides no warranty or guarantee of the accuracy or completeness of information in this document.
--- NOTE | 2024-03-08 13:07 | US_ITS ---
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 BREATHING MOVEMENTS: 2 GROSS BODY MOVEMENTS: 2 TONE: 2 QUALITATIVE AMNIOTIC FLUID VOLUME: 2 PRESENTATION: Cephalic HEART RATE: 134 bpm AMNIOTIC FLUID VOLUME: 10.6 cm; normal range GESTATIONAL AGE: 34 weeks 4 days US/US OB BPP w non-stress IMPRESSION: Total biophysical profile score: 8 Electronically authenticated by: MARS FRANKEL Date: 03/09/2024 04:17
--- NOTE | 2024-03-08 13:08 | US_ITS ---
[address] [address] Patient Name: KAILYN ACKERMAN MRN: [id number] date: 2000 Sex: F Assigned Patient Location: [facility] Current Patient Location: Accession/Order Number: [id number] Exam Date: 03/08/2024 13:15 Report Date: 03/09/2024 04:20 At the request of: VAL ANG Procedure: US OB growth EXAMINATION: US OB growth HISTORY: 24 WEEKS GESTATION OF Z3A.24 COMPARISON: Ultrasound OB growth 02/10/2024 FINDINGS: Heart Rate: 134 bpm Amniotic Fluid Volume: 10.6 cm; normal range Number: One Position: Cephalic BIOMETRY: BPD: 8.57 cm;; 34 weeks 4 days;; 50% HC: 31.28 cm;; 35 weeks 0 days;; 26% AC: 28.64 cm;; 32 weeks 5 days;; 9% FL: 6.27 cm;; 32 weeks 3 days;; 4% EFW: 2096 g; 10% FL/AC: 21.9 FL/BPD: 73.1 HC/AC: 1.09 GESTATIONAL AGE: Age by EDC: 34 weeks 4 days NOY by EDC: 04/15/2024 Age by US: 33 weeks 5 days NOY by US: 04/21/2024 US/US OB growth IMPRESSION: 1. Single live intrauterine with growth detailed above. Electronically authenticated by: MARS FRANKEL Date: 03/09/2024 04:20
--- NOTE | 2024-03-08 13:09 | US_ITS ---
[place] [address] Patient Name: KAILYN ACKERMAN MRN: [id number] date: 2000 Sex: F Assigned Patient Location: 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 FINDINGS: HEART RATE: 134 bpm UMBILICAL ARTERIES: 2 GESTATIONAL AGE: 34 weeks 4 days WAVEFORM: Normal upstroke. No notching. Forward flow in diastole. PEAK SYSTOLIC VELOCITY: 83 cm/s END DIASTOLIC VELOCITY: 33 cm/s SYST/DIAST RATIO (S:D): 2.5 RESISTIVE INDEX: 0.61 US/US OB umbilical artery IMPRESSION: 1. Class 0 = Normal umbilical artery blood velocity Electronically authenticated by: MARS FRANKEL Date: 03/09/2024 04:22
[2024-03-08 14:28] VITALS: BP 107/58; PULSE 71
== END 2024-03-08 16:02 | disposition home or self-care (01) ==
LOC: US 08:06 → FBC 13:07
PROVIDERS: Visit Provider Obstetrics & Gynecology
DX: O43.113 Circumvallate placenta, third trimester (principal); Z3A.34 34 weeks gestation of pregnancy
CPT/HCPCS: 76816; 76818; 76820

== ENCOUNTER 2024-03-11 07:06 | Outpatient (OUT) | payer OTHER, SELFPAY ==
--- OUTSIDE RECORDS SUMMARY | 2024-03-11 07:09 | XMS_ITS | CCD ---
Author Organization [facility] Inform ion [facility] Care Team Providers Care Exchange Engineer Name Role Phone Kendra Witt Unavailable Michael [...] Unavailable ZIEBER, DR MARS Mccarthy Consulting Unavailable PILGRIMS KNOB, DR SOFIA Hull Consulting Unavailable REQUEST, NONE [...] Medication Allergies] Propensity to adverse reactions (disorder) [facility] Repository Medications Current Medications Medication Drug Class(es) [...] day(s), # 28 cap(s), Refills(s) 0, [facility], 170, cm, 08/27/23 9:49:00 EDT, Height/Length Dosing, 78.7, kg, 08/27/23 9:49:00 EDT, Weight Dosing Start Date: 08/27/23 Stop Date: 09/03/23 Status: Ordered Start: 01-03-2023 take 1 capsule by [facility] every twelve hours Keflex 500 mg Cap 500 mg = 1 cap(s), Oral, q12hr, # 20 cap(s), Refills(s) 0, Pharmacy: [facility], 170, cm, 01/03/23 22:44:00 EDT, Height/Length Dosing, 75.3, kg, 01/03/23 22:44:00 EDT, Weight Dosing Start Date: 01/03/23 Status: Ordered Citalopram (2 sources) Serotonin Reuptake Inhibitor Citalopram Hydrobromide Active dexamethasone 1 mg/ml / neomycin 3.5 mg/ml / polymyxin b 48427 unt/ml ophthalmic suspension (2 sources) Aminoglycoside Antibacterial, Polymyxin-class Antibacterial, Corticosteroid Start: 09-26-19 take 1 drop(s) into the eye(s) four times daily Maxitrol 3.5-81234-4.1 1 drop into affected eye Ophthalmic Four [...] 3 hrs for 2 days Jun, Active [place] (No Known Home Meds) (1 source) Start: 06-26-2021 [place] (No Known Home Meds) Active June 26, [...] Nausea/Vomiting, # 12 tab(s), Refills(s) 0, Pharmacy: [facility], 170, cm, 01/03/23 22:44:00 EDT, Height/Length Dosing, 75.3, kg, 01/03/23 22:44:00 EDT, Weight Dosing Start Date: 01/03/23 Status: Ordered Start: 06-09-2019 take 1 tablet by faby th three times daily Zofran ODT 4 mg Tab-Dis 4 mg = 1 tab(s), Oral, TID, # 15 tab(s), Refills(s) 0, Pharmacy: [facility] Start Date: 06/09/19 Status: [...] take 450 mg by mouth twice daily Paragould Carbonate Discontinued 450 MG PO Twice daily [...] Grp A Strp Intrl Ctrl Pass Normal [facility] Comment on above: Order Comment: Order Added on by Discern Rule. Performed By: #### 1 [id number] #### [facility] [address] [place] [address] S. pyogenes DNA ALFREDO+probe Ql (Throat) Negative Normal [facility] Comment on above: Order Comment: Order Added on by Discern Rule. Result Comment: Test ing performed using DNA amplification. Performed By: #### 1 [id number] #### [facility] [address] [place] [address] ED Clinical Summaryon 2023 ED Clinical Summary ED Clinical Summary [address] [address] ED Clinical Summary Person Information Name: KAILYN ACKERMAN Heena/[facility] Age: 23 Years : 2000 Sex: Female Language: Czech PCP: SELAM HUNTER CNP Marital Status: Single Phone: [phone] Visit Id: Visit Reason: Headache; Body aches; [...] 02/03/2024 11:17:23 02/03/2024 11:17:23 02/03/2024 11:17:23 ADDRESS: [address] [place] [phone] PHYS DOC NOTES: MEDICAL INFORMATION: Prescriptions Given: [...] Adult Follow up: With: Address: [facility] [address] [place] [address] [place] [address] Business (1) In 3 days 02/06/2024 With: Address: When: [place] [address] Business (1) In 3 days 02/06/2024 DIAGNOSIS: Sore throat; Viral URI Normal [facility] ED Note-Physicianon 02-03-20 ED Note-Physician ED Note-Physician [...] URI and will continue to follow-up with HISTORIOGRAPHY TEACHER for further evaluation and management. We discussed [...] days 02/06/2024 (more content not included)... Normal [facility] Comment on above: Result Comment: Elec tronically Signed By: Duc Swanson PA-C\.br\Date and Time Signed: 02/03/24 13:23 EDT\.br\Electronically Co-Signed By: Siva Schulte DO\.br\Date and Time Co-Signed: 02/03/24 14:44 EDT ED Patient Summaryon 024 ED Patient Summary ED Patient Summary [place] [id number] Patient Discharge Instructions Person Information Name: GARCÍA ACKERMANNZIClement Gordon Age: 23 Years Arrival Date: 02/03/2024 09:21:41 Discharge Diagnosis: Sore throat; Viral URI Primary Care Physician: SELAM HUNTER CNP Provider Information Primary Provider: Siva Schulte DO Advanced [employer] Rug Repairer:Duc Swanson PA-C The exam and treatment you received in the Emergency Department were for an urgent problem and are not intended as complete care. It is important that you follow up with a doctor, nurse practitioner, or physician?s membership assistant for ongoing care. If your symptoms [...] Follow-up Instructions: With: Address: When: Juvenal THORPE [facility], [address] [place] [address] [place] [address] Business (1) In 3 days 02/06/2024 With: Address: When: [place] [address] Business (1) In 3 days 02/06/2024 In the event that this physician does not participate in your insurance network, please consult with your insurance company to find a nearby participating provider. Patient Education Materials: Upper Respiratory Infection, Adult A MESSAGE TO ALL PATIENTS REGARDING OPIOIDS PRESCRIPTION OPIOIDS: WHAT YOU NEED TO KNOW Prescription opioids can be used to help relieve tjxleugh-jf-bvsvsp pain and are often prescribed following a [...] of op (more content not included)... Normal [facility] MICRO OTHER TESTSOrdered By: Nita Delgadillo on 02-03-2024 S. pyogenes Ag IA.rapid Ql (Throat) Negative (02/03/24 11:07 AM) Normal Negative [facility] [place] Man Sero MICRO OTHER TESTSOrdered By: Asuncion Goncalves on 02-03-2024 Rapid COV Int NEG Ctl Pass (02/03/24 9:30 AM) Normal [facility] [place] Man Sero Rapid COV Int POS Ctl Pass (02/03/24 9:30 AM) Normal [facility] Sero SARS-CoV+SARS-CoV-2 (COVID-19) Ag IA.rapid Ql (Resp) Not Detected 1 (02/03/24 9:30 AM) Normal Not Detected [facility] [place] Man Sero Comment on above: Interpretive Data: Gato multani Orthocone Veritor System for Rapid Detection of SARS-CoV-2 [...] COV Int NEG Ctl Pass Normal [facility] Comment on above: Performed By: #### 2 [id number] #### [facility] [address] [place] [address] Rapid COV Int POS Ctl Pass Normal [facility] Comment on above: Performed By: #### 2 [id number] #### [facility] [address] [place] [address] SARS-CoV+SARS-CoV-2 (COVID-19) Ag IA.rapid Ql (Resp) Not detected Normal Not Detected [facility] Comment on above: Result Comment: The Callystroitor? System for Rapid Detection of SARS-CoV-2 is [...] or revoked sooner. Performed By: #### 2 [id number] #### [facility] [address] [place] [address] Rapid Strep w/rfxon 02-03-20 24 S. pyogenes Ag IA.rapid Ql (Throat) Negative Normal Negative [facility] Comment on above: Performed By: #### 2 [id number] #### [facility] [address] [place] [address] ED Note-Physicianon 09-26-19 24 ED Note-Physician Basic [...] than 90,000. Ultrasound was obtained discussed with technician inventory specialist. Intrauterine consistent with stated gestational age. Stable heart rate. Patient continues to demonstrate subchorionic hematoma. Also left-sided ovarian cyst similar to previous. Results were discussed with the patient. She is discharged home to continue pelvic rest and follow-up with HISTORIOGRAPHY TEACHER. Patient was encouraged to return to the [...] Juvenal THORPE In 3 days 09/26/2023 EDT [facility] [address] [facility] [place] [address]- Business (1) Additional Instructions: Patient Education Subchorionic [...] made to ensure accuracy, however, inadvertently computerized wound care coordinator mistakes may be present. Appropriate healthcare PPE [...] Yes., 04/10/2019 Lab Results Beta hCG Qnt: 24448 mIU/mL High (09/23/23 09:28:00) Diagnostic Results No qualifying data available. Normal [facility] Comment on above: Result Comment: Elec tronically Signed By: Mandie CHUNG, Venkat\.br\Date and Time Signed: 09/23/23 11:45 EDT\.br\Electronically Co-Signed By: Wil Chandra DO\.br\Date and Time Co-Signed: 09/26/23 07:37 EDT [facility] Quanton 09-23-2023 [place] [address] m[IU]/mL High 1-3 F [facility] Comment on above: Result Comment: 'F N ON < 1 - 3' ' 0.2 - 1 WEEK = 5 TO 50' ' 1 - 2 WEEKS = 50 - 500' ' 2 - 3 WEEKS = 100 - 5000' ' 3 - 4 WEEKS = 500 - 53899' ' 4 - 5 WEEKS = 1000 - 19537' ' 5 - 6 WEEKS = 94167 - 402196' ' 6 - 8 WEEKS = 42106 - 845278' ' 8 - 12 WEEKS = 41934 - 403740' Performed By: #### 2 [id number] ####[facility] [address] [place] [address] CHEMISTRYOrdered By: SYSTEM SYSTEM on 09-23-2023 [place] [address] m[IU]/mL High 1 - 3 mIU/mL [facility] Comment on above: Result Comment: 'F N ON < 1 - 3' ' 0.2 - 1 WEEK = 5 TO 50' ' 1 - 2 WEEKS = 50 - 500' ' 2 - 3 WEEKS = 100 - 5000' ' 3 - 4 WEEKS = 500 - 58270' ' 4 - 5 WEEKS = 1000 - 52400' ' 5 - 6 WEEKS = 50620 - 088919' ' 6 - 8 WEEKS = 58692 - 807226' ' 8 - 12 WEEKS = 51399 - 489717' Consent for Treatmenton 09-07 Consent for Treatment [id number]#1.00TIFF Normal [facility] Discharge Instructionson Discharge Instructions [id number]#[id number] Normal [facility] ED Clinical Summaryon 2023 ED Clinical Summary [address] [address] ED Clinical Summary Person Information Name: KAILYN ACKERMAN Heena/[facility] Age: 23 Years : 2000 Sex: Female Language: Czech PCP: NONE, XXXX Marital Status: Single Phone: [phone] MRN: Visit Id: Visit Reason: Back pain; [...] 09/23/2023 11:52:16 09/23/2023 11:52:16 09/23/2023 11:52:16 ADDRESS: [address] [place] [phone] PHYS DOC NOTES: MEDICAL INFORMATION: Prescriptions Given: [...] Follow up: With: Address: When: Juvenal THORPE [facility], [address] [place] [address] [place] [address] Business (1) In 3 days 09/26/2023 DIAGNOSIS: Other antepartum hemorrhage, unspecified trimester; Subchorionic bleed; Vaginal bleeding in Normal [facility] ED Patient Education Noteon 09-23-2023 ED Patient [...] provider. Document Revised: 02/19/2021 Document Reviewed: 02/19/2021 [employer] - The Bigger Picture Patient Education ? 2022 [employer]. Normal [facility] ED Patient Summaryon 024 ED Patient Summary [place] [address] Patient Discharge Instructions Person Information Name: KAILYN ACKERMAN Age: 23 Years Arrival Date: 09/23/2023 09:10:07 Discharge Diagnosis: Other antepartum hemorrhage, unspecified trimester; Subchorionic bleed; Vaginal bleeding in Primary Care Physician: NONE, XXXX Provider Information Primary Provider: Wil Chandra DO [employer] Rug Repairer:Venkat Leal PA-C The exam and treatment you received in the Emergency Department were for an urgent problem and are not intended as complete care. It is important that you follow up with a doctor, nurse practitioner, or physician?s membership assistant for ongoing care. If your symptoms [...] Follow-up Instructions: With: Address: When: Juvenal THORPE [facility], [address] [place] [address] [place] [address] Business (1) In 3 days 09/26/2023 In the event that this physician does not participate in your insurance network, please consult with your insurance company to find a nearby participating provider. Patient Education Materials: Subchorionic Hematoma A MESSAGE TO ALL PATIENTS REGARDING OPIOIDS PRESCRIPTION OPIOIDS: WHAT YOU NEED TO KNOW Prescription opioids can be used to help relieve qscjfkjb-gb-fhoekj pain and are often prescribed following a [...] care p (more content not included)... [facility] Prescriptions/Work Noteson 0 09-23-2023 Prescriptions/Work Notes [id number]#[id number] [facility] US 1st Trimesteron 09-23-2023 1st Trimester Exam [...] least 66% of the gestational sac circumference. Sealy Rump Length: 3.2 cm, which corresponds Composite [...] Size = Dates Uterus Position Anteverted Normal [facility] C Urineon 08-29-2023 Bacteria identified Cx Nom [...] R1: This test was performed at: [facility], [address] [place] [address], [address] , , Normal [facility] Comment on above: Performed By: #### 4 [id number] ####[address] [address] ABO/Rhon 08-27-2023 ABO/Rh Positive Invalid Interpretation Code [facility] Comment on above: Performed By: #### 2 [id number] ####[facility] [address] [place] [address] BLOOD BANKOrdered By: Liza Xavier on 08-27-2023 ABO/Rh Interp Positive Invalid Interpretation Code [facility] [place] BB Subsection BMPon 08-27-2023 Anion gap [Moles/Vol] 11 mmol/L Normal 6-16 [facility] Comment on above: Performed By: #### 1 [id number], [id number], 8878423 ####[facility] [address] [place] [address] Calcium [Mass/Vol] 9.3 mg/dL Normal 8.9-11.1 [facility] Comment on above: Performed By: #### 1 [id number], 3319878, 5962780 ####[facility] [address] [place] [address] Chloride [Moles/Vol] 104 mmol/L Normal 101-111 [facility] Comment on above: Performed By: #### 1 [id number], 3837484, 3228075 ####[facility] [address] [place] [address] CO2 [Moles/Vol] 24 mmol/L Normal 21-31 [facility] Comment on above: Performed By: #### 1 7853744, 1047811, 7841260 ####[facility] [address] [place] [address] Creatinine [Mass/Vol] 0.6 mg/dL Normal 0.5-1.3 [facility] Comment on above: Performed By: #### 1 3326438, 5917884, 5720787 ####[facility] [address] [place] [address] Glucose [Mass/Vol] 87 mg/dL Normal 55-199 [facility] Comment on above: Performed By: #### 1 1113309, 0004671, 2315719 ####[facility] [address] [place] [address] Potassium [Moles/Vol] 3.7 mmol/L Normal 3.5-5.3 [facility] Comment on above: Performed By: #### 1 6630093, 2936485, 7228925 ####[facility] [address] [place] [address] Sodium [Moles/Vol] 135 mmol/L Normal 135-145 [facility] Comment on above: Performed By: #### 1 6246096, 8296652, 1005031 ####[facility] [address] [place] [address] Urea nitrogen [Mass/Vol] 8 mg/dL Normal 5-21 [facility] Comment on above: Performed By: #### 1 7136153, 6019797, 5692722 ####[facility] [address] [place] [address] Urea nitrogen/Creatinine [Mass ratio] 13 No Units Normal 10-20 [facility] Comment on above: Performed By: #### 1 3954607, 9258777, 0549431 ####[address] [address] [facility] Quanton 08-27-2023 [place] [address] m[IU]/mL High 1-3 F [facility] Comment on above: Result Comment: 'F N ON < 1 - 3' ' 0.2 - 1 WEEK = 5 TO 50' ' 1 - 2 WEEKS = 50 - 500' ' 2 - 3 WEEKS = 100 - 5000' ' 3 - 4 WEEKS = 500 - 58375' ' 4 - 5 WEEKS = 1000 - 28431' ' 5 - 6 WEEKS = 58764 - 809340' ' 6 - 8 WEEKS = 13574 - 885417' ' 8 - 12 WEEKS = 32112 - 217176' Performed By: #### 2 149144 ####[facility] [address] [place] [address] CBC w/ Auto Diffon 4 Basophils/100 WBC (Bld) 0.6 % Normal 0.0-2.0 F [facility] Comment on above: Performed By: #### 1 [id number], 3212994, 2098838 ####[facility] [address] [place] [address] Basophils/Leukocytes Auto (Bld) [Pure # fraction] 0.0 E9/L Normal 0.0-0.2 [facility] Comment on above: Performed By: #### 1 5632133, 7509321, 1581383 ####[address] [address] Eosinophils (Bld) [#/Vol] 0.1 E9/L Normal 0.0-0.5 [facility] Comment on above: Performed By: #### 1 1200953, 1881041, 5909305 ####[address] [address] Eosinophils/100 WBC (Bld) 2.0 % Normal 0.0-8.0 [facility] Comment on above: Performed By: #### 1 2873460, 5892937, 3189910 ####[address] [address] Erythrocyte distribution width (RBC) [Ratio] 15.0 % High 10.9-14.2 [facility] Comment on above: Performed By: #### 1 9280905, 8794972, 1764472 ####[address] [address] Hematocrit (Bld) [Volume fraction] 37.4 % Normal 34.0-46.0 [facility] Comment on above: Performed By: #### 1 5324200, 8996660, 3707104 ####[address] [address] Hemoglobin (Bld) [Mass/Vol] 12.7 g/dL Normal 12.0-16.0 [facility] Comment on above: Performed By: #### 1 0183338, 4381738, 2555969 ####[address] [address] Lymphocytes (Bld) [#/Vol] 2.0 E9/L Normal 1.0-4.0 [facility] Comment on above: Performed By: #### 1 6780396, 3690784, 7639256 ####[address] [address] Lymphocytes/100 WBC (Bld) 28.1 % Normal 14.0-50.0 [facility] Comment on above: Performed By: #### 1 1259056, 1016139, 0921203 ####[address] [address] MCH (RBC) [Entitic mass] 28.4 pg Normal 27.0-34.0 [facility] Comment on above: Performed By: #### 1 9412531, 2289943, 6872353 ####[address] [address] MCHC (RBC) [Mass/Vol] 33.8 g/dL Normal 31.4-36.0 [facility] Comment on above: Performed By: #### 1 9797017, 9098463, 9582677 ####[address] [address] MCV (RBC) [Entitic vol] 84.0 fL Normal 80.0-100.0 [facility] Comment on above: Performed By: #### 1 7436414, 5845230, 2534529 ####[place] [address] Monocytes (Bld) [#/Vol] 0.5 E9/L Normal 0.2-1.0 F [facility] Comment on above: Performed By: #### 1 4896378, 6416339, 6047790 ####[address] [address] Neutrophils (Bld) [#/Vol] 4.5 E9/L Normal 2.0-7.5 [facility] Comment on above: Performed By: #### 1 3631705, 9226410, 4126132 ####[address] [address] Neutrophils/100 WBC (Bld) 61.9 % Normal 36.0-75.0 [facility] Comment on above: Performed By: #### 1 8210595, 6635518, 4244814 ####[place] [address] [place] [address] Platelet mean volume (Bld) [Entitic vol] 7.9 fL Normal 6.4-10.8 [facility] Comment on above: Performed By: #### 1 5007504, 7183330, 7122604 ####[address] [address] Platelets (Bld) [#/Vol] 252.0 E9/L Normal 150.0-500.0 [facility] Comment on above: Performed By: #### 1 4895592, 1568432, 6166836 ####[place] [address] [place] [address] RBC (Bld) [#/Vol] 4.5 E12/L Normal 4.3-5.9 [facility] Comment on above: Performed By: #### 1 7882162, 4497534, 0185995 ####[address] [address] WBC corrected for nucl RBC Auto (Bld) [#/Vol] 7.2 E9/L Normal 4.0-11.0 [facility] Comment on above: Performed By: #### 1 9206195, 7493128, 4427652 ####[facility] [address] [place] [address] CHEMISTRYOrdered By: SYSTEM SYSTEM on 08-27-2023 Anion [...] 199 mg/[place] [address] m[IU]/mL High 1 - 3 mIU/mL [facility] Comment on above: Result Comment: 'F N ON < 1 - 3' ' 0.2 - 1 WEEK = 5 TO 50' ' 1 - 2 WEEKS = 50 - 500' ' 2 - 3 WEEKS = 100 - 5000' ' 3 - 4 WEEKS = 500 - 51631' ' 4 - 5 WEEKS = 1000 - 33284' ' 5 - 6 WEEKS = 49293 - 272381' ' 6 - 8 WEEKS = 25638 - 880106' ' 8 - 12 WEEKS = [address] - 394744' Potassium [Moles/Vol] 3.7 mmol/L Normal 3.5 - 5.3 mmol/L [facility] Sodium [Moles/Vol] 135 mmol/L Normal 135 - 145 mmol/L [facility] Urea nitrogen [Mass/Vol] 8 mg/dL Normal 5 - 21 mg/d L [facility] Urea nitrogen/Creatinine [Mass ratio] 13 mg/mg Normal 10 - 20 [facility] Consent for Treatmenton 08-08 Consent for Treatment [id number] Normal [facility] Discharge Instructionson Discharge Instructions [id number] Normal [facility] ED Clinical Summaryon 2023 ED Clinical Summary [place] [id number] ED Clinical Summary Person Information Name: KAILYN ACKERMAN Heena/[facility] Age: 22 Years : 2000 Sex: Female Language: Czech PCP: SELAM HUNTER CNP Marital Status: Single Phone: [phone] MRN: Visit Id: Visit Reason: Vaginal bleeding [...] 08/27/2023 12:34:16 08/27/2023 12:34:16 08/27/2023 12:34:16 ADDRESS: [address] [place] [phone] PHYS DOC NOTES: MEDICAL INFORMATION: Prescriptions Given: Medications to Continue Taking That Have Changed [facility], [address] [place], [place] [id number], [phone] START: cephalexin (Keflex 500 mg Cap) 1 [...] Urinary Tract Infection; Urinary Tract Infection, Adult, Sahh-po-Kzgd; Subchorionic Hematoma Follow up: With: Address: When: Juvenal THORPE [facility], [address] [place] [address] [place], [place] [id number] Business (1) In 3 days 08/30/2023 With: Address: When: SELAM HUNTER [address] [place] [address] Business (1) In 3 days DIAGNOSIS: Other antepartum hemorrhage, unspecified trimester; Subchorionic bleed; UTI (urinary tract infection) during ; Vaginal bleeding in Normal [facility] ED Note-Physicianon 08-27-19 ED Note-Physician Basic Information [...] and Complexity of Problems Differential Diagnosis: [] [facility] Data External documents reviewed: [] My [...] day(s), # 28 cap(s), Refills(s) 0, Pharmacy: [facility], 170, cm, 08/27/23 9:49:00 EDT, Height/Length [...] Juvenal THORPE In 3 days 08/30/2023 EDT [facility] [address] [facility] [address] , [place] [address]- Business (1) Additional Instructions: SELAM HUNTER In 3 days [address] [place] [address]- Business (1) Additional Instructions: Patient Education and Urinary Tract Infection Urinary Tract Infection, Adult, Abek-au-Ygkf Subchorionic Hematoma Attestation Patient seen and evaluated by the physician membership assistant. Attending physician was present in the emergency department and s (more content not included)... Normal [facility] Comment on above: Result Comment: Elec tronically [...] provider. Document Revised: 01/09/2022 Document Reviewed: 01/09/2022 ASP64 Patient Education ? 2022 [employer]. Urinary Tract Infection, Adult A urinary tract [...] swelling (inflammation) (more content not included)... Normal [facility] ED Patient Summaryon 024 ED Patient Summary [place] [id number] Patient Discharge Instructions Person Information Name: KAILYN ACKERMAN Age: 22 Years Arrival Date: 08/27/2023 09:37:12 Discharge Diagnosis: Other antepartum hemorrhage, unspecified trimester; Subchorionic bleed; UTI (urinary tract infection) during ; Vaginal bleeding in Primary Care Physician: SELAM HUNTER CNP Provider Information Primary Provider: Emily Harper M.D. Advanced Oriental Rug Repairer:None The exam and treatment you received in the Emergency Department were for an urgent problem and are not intended as complete care. It is important that you follow up with a doctor, nurse practitioner, or physician?s membership assistant for ongoing care. If your symptoms become worse or you do not improve as expected and you are unable to reach your usual health care provider, you should return to the Emergency Department. We are available 24 hours a day. KAILYN ACKERMAN has been given the following list of patient education materials, prescriptions and follow-up instructions: Follow-up Instructions: With: [facility] [address] [place] [address] [place] [phone] Business (1) In 3 days 08/30/2023 With: Address: When: SELAM HUNTER [address] [place] [address] [place] [phone] Business (1) In 3 days In the event that this physician does not participate in your insurance network, please consult with your insurance company to find a nearby participating provider. Patient Education Materials: and Urinary Tract Infection; Urinary Tract Infection, Adult, Pasw-zr-Qdmd; Subchorionic Hematoma A MESSAGE TO ALL PATIENTS REGARDING OPIOIDS PRESCRIPTION OPIOIDS: WHAT YOU NEED TO KNOW Prescription opioids can be used to help relieve cnwravph-td-danjem pain and are often prescribed following a [...] toilet, follo (more content not included)... Normal [facility] HEMATOLOGYOrdered By: SYSTEM SYSTEM on 08-27-2023 Basophils/100 [...] 08-27-19 24 Color (U) Light-Yellow Normal Yellow [facility] Comment on above: Result Comment: Micr oscopic readings are only performed on those samples that meet specific criteria set forth by [facility]. Performed By: #### 4 [id number] ####[facility] [address] [place] [address] Glucose (U) [Mass/Vol] Negative Normal Negative [facility] Comment on above: Performed By: #### 4 [id number], [id number] ####[facility] [address] [place] [address] Ketones Ql (U) Negative Normal Negative [facility] Comment on above: Performed By: #### 4 [id number], [id number] ####[facility] [address] [place] [address] UA Blood 3+ Abnormal Negative [facility] Comment on above: Performed By: #### 4 [id number], [id number] ####[facility] [address] [place] [address] UA Bacteria 1+ [id number] Abnormal Trace [facility] Comment on above: Performed By: #### 4 [id number], [id number] ####[facility] [address] [place] [address] UA Clarity Turbid Abnormal Clear [facility] Comment on above: Performed By: #### 4 [id number], [id number] ####[facility] [address] [place] [address] UA Hyal Cast 0-3 Normal 0-3 [facility] Comment on above: Performed By: #### 4 [id number], [id number] ####[facility] [address] [place] [address] UA Leuk Est 250 Stefania/uL Abnormal Negative [facility] Comment on above: Performed By: #### 4 [id number], [id number] ####[facility] [address] [place] [address] UA Mucous Trace Normal Negative [facility] Comment on above: Performed By: #### 4 [id number], [id number] ####[facility] [address] [place] [address] UA Nitrite Negative Normal Negative [facility] Comment on above: Performed By: #### 4 [id number], [id number] ####[facility] [address] [place] [address] UA pH 5.5 Invalid Interpretation Code 5.0-9.0 [facility] Comment on above: Performed By: #### 4 [id number], [id number] ####[facility] [address] [place] [address] UA Protein 1+ mg/dL Abnormal Negative [facility] Comment on above: Performed By: #### 4 [id number], [id number] ####[facility] [address] [place] [address] UA RBC 4-20 Abnormal 0-3 [facility] Comment on above: Performed By: #### 4 [id number], [id number] ####[facility] [address] [place] [address] UA Spec Grav 1.018 Invalid Interpretation Code 1.005-1.030 [facility] Comment on above: Performed By: #### 4 [id number], [id number] ####[facility] [address] [place] [address] UA Squam Epithelial 3-4 Abnormal 0-2 [facility] Comment on above: Performed By: #### 4 [id number], [id number] ####[facility] [address] [place] [address] UA Urobilinogen Negative Normal Negative [facility] Comment on above: Performed By: #### 4 [id number], [id number] ####[facility] [address] [place] [address] UA WBC 6-15 Abnormal 0-5 [facility] Comment on above: Performed By: #### 4 [id number], [id number] ####[facility] [address] [place] [address] Urobilinogen (U) [Mass/Vol] Negative Normal Negative [facility] Comment on above: Performed By: #### 4 [id number], [id number] ####[facility] [address] [place] [address] UA Spec Desc Clean Catch Normal [facility] Comment on above: Performed By: #### 4 [id number], [id number] ####[facility] [address] [place] [address] URINALYSISOrdered By: SYSTEM SYSTEM on 08-27-2023 Color (U) Light-Yellow 1 (08/27/23 9:55 AM) Normal Yellow [facility] UA Auto SS Comment on above: Interpretive Data: M icroscopic readings are only performed on those samples that meet specific criteria set forth by [facility]. Glucose (U) [Mass/Vol] Negative Normal Negat [...] Reason for Exam: Other (please specify) Report [facility] [phone] IMPRESSION: Single live intrauterine with estimated sonographic [...] heart rate is measured at 120 bpm. Sealy-rump length 4.77 mm. Estimated sonographic gestational age [...] Transvaginal Ultrasound Performed FHR (bpm) 120 Normal [facility] US Transvaginalon 08-27-2023 US Transvaginal Exam Date/Time: 08/27/2023 11:55 EDT Reason for Exam: Other (please specify) Report [facility] [phone] Please see ultrasound pelvis, for report of transvaginal examination. Ordering Provider: Hudson Riley FINAL REPORT Dictated: 08/27/2023 12:33 pm Zach Deng MD Signed (Electronic Signature): 08/27/2023 12:33 pm Signed by: Zach Deng MD Transcribed by: KIRK Technologist: SHELLEY Normal [facility] eGFRon 08-27-2023 eGFR 131 mL/min/1.73 m2 Normal >=59 [facility] Comment on above: Order Comment: Order added by Discern Expert. Performed By: #### 1 [id number], [id number] ####[facility] [address] [place] [address] [facility] 08-19-2023 HCG.beta subunit Qn 4261 m[IU]/mL High 1-3 [facility] Comment on above: Result Comment: 'F N ON < 1 - 3' ' 0.2 - 1 WEEK = 5 TO 50' ' 1 - 2 WEEKS = 50 - 500' ' 2 - 3 WEEKS = 100 - 5000' ' 3 - 4 WEEKS = 500 - 76967' ' 4 - 5 WEEKS = 1000 - 95231' ' 5 - 6 WEEKS = 40121 - 243330' ' 6 - 8 WEEKS = 49015 - 305694' ' 8 - 12 WEEKS = 70556 - 913482' Performed By: #### 2 [id number] ####[facility] [address] [place] [address] Physician Orderon 08-19-2023 Physician Order [id number] Normal [facility] CHEMISTRYOrdered By: Juancho benitez on 01-03-2023 Albumin [...] 108 mL/min/1.73 m2 Normal >=59mL/min/1 .73 m2 [facility] [place] Chem S HCG.beta subunit [...] 16.9 E9/L High 4.0 - 11.0 E9/L [facility] [place] HemeAutoSS Laboratory - Microbiology an d Antimicrobial susceptibilityOrdered By: Asuncion Goncalves on 01-03-2023 Bacteria identified Cx Nom (U) No growth to date Continuing incubation [facility] MICRO OTHER TESTSOrdered By: Juancho Fitch on [...] Interpretation Code Negative [facility] UA Auto SS Paragould.plasma/Paragould.R BC (Bld) [Mass ratio] 0-3 /HPF Normal [...] PM) Invalid Interpretation Code 1.005 - 1.030 [facility] [place] UA Auto SS UA Spec Desc Clean Catch (01/03/23 10:52 PM) Normal [facility] [place] UA Auto SS Urobilinogen Qn (U) 1.4366196 {Georgina'U}/dL Normal 0.0 - 1.0 EU/dL FT UA Auto SS WBC Auto Ql (U) 1+ *ABN* (01/03/23 10:52 PM) Invalid Interpretation Code Negative [facility] [place] UA Auto SS WBC LM.HPF (Urine sed) [#/Area] 6-15 /HPF Invalid Interpretation Code 0-5/HPF [facility] [place] UA Auto SS Alanine aminotransferase [En zymatic activity/volume] in Serum or PlasmaOrdered By: Jose Silverman on 10-02-2022 ALT [Catalytic activity/Vol] 13 U/L Normal 7-52 [facility] Comment on above: Performed By: #### C BC, CMP, ETOH #### [facility] [address] [place] [address] [place] Albumin [Mass/volume] in Ser um or Plasma by Bromocresol green (BCG) dye binding methoOrdered By: Jose Silverman on 10-02-2022 Albumin BCG dye [Mass/Vol] 5.0 g/dL 3.5-5.7 [facility] Alkaline phosphatase [Enzyma tic activity/volume] in Serum or PlasmaOrdered By: Jose Silverman on 10-02-2022 ALP [Catalytic activity/Vol] 69 U/L Normal 34-104 [facility] Comment on above: Performed By: #### C BC, CMP, ETOH #### [facility] [address] [place] [address] [place] Amphetamine Screen Ql (U)Ord ered By: Jose Silverman on 10-02-2022 Amphetamines Ql (U) Negative Negative [facility] Aspartate aminotransferase [ Enzymatic activity/volume] in Serum or PlasmaOrdered By: Jose Silverman on 10-02-2022 AST [Catalytic activity/Vol] 21 U/L Normal 13-39 [facility] Comment on above: Performed By: #### C BC, CMP, ETOH #### [address] Automated basophil %Ordered By: Jose Silverman on 10-02-2022 Basophils/100 WBC (Bld) 0.5 % Normal . [facility] Comment on above: Performed By: #### C BC, CMP, ETOH #### [address] Automated basophil countOrde red By: Jose Silverman on 10-02-2022 Basophils (Bld) [#/Vol] 0.1 10*3/uL Normal 0.0-0.2 [facility] Comment on above: Result Comment: PERF ORMED BY: [place] [address] PATHOLOGIST RECREATION COUNSELOR ASHELY CAREY M.D. Performed By: #### C BC, CMP, ETOH #### [address] Automated blood monocyte cou ntOrdered By: Jose Silverman on 10-02-2022 Monocytes (Bld) [#/Vol] 0.7 10*3/uL Normal 0.0-0.8 [facility] Comment on above: Performed By: #### C BC, CMP, ETOH #### [address] Automated eosinophil %Ordere d By: Jose Silverman on 10-02-2022 Eosinophils/100 WBC (Bld) 2.0 % Normal . [facility] Comment on above: Performed By: #### C BC, CMP, ETOH #### [address] Automated eosinophil countOr dered By: Jose Silverman on 10-02-2022 Eosinophils (Bld) [#/Vol] 0.3 10*3/uL Normal 0.0-0.45 [facility] Comment on above: Performed By: #### C BC, CMP, ETOH #### [address] Automated erythrocytes count in urine sediment (number/area)Ordered By: Jose Silverman on 10-02-2022 RBC Auto (Urine sed) [#/Area] 0-1 [HPF] 0-4 [facility] Automated leukocytes count i n urine sediment (number/area)Ordered By: Jose Silverman on 10-02-2022 WBC Auto (Urine sed) [#/Area] 10-19 [HPF] 0-4 [facility] Automated monocyte %Ordered By: Jose Silverman on 10-02-2022 Monocytes/100 WBC (Bld) 5.7 % Normal . [facility] Comment on above: Performed By: #### C BC, CMP, ETOH #### [facility] [address] Automated neutrophil %Ordere d By: Jose Silverman on 10-02-2022 Neutrophils/100 WBC (Bld) 68.7 % Normal . [facility] Comment on above: Performed By: #### C BC, CMP, ETOH #### [facility] [address] [place] [address] [place] Barbiturates [Presence] in U rine by Screen methodOrdered By: Jose Silverman on 10-02-2022 Barbiturates Screen Ql (U) Negative Negative [facility] Benzodiazepines Screen Ql (U )Ordered By: Jose Silverman on 10-02-2022 Benzodiazepines Ql (U) Negative Negative [facility] Benzoylecgonine [Presence] i n Urine by Screen methodOrdered By: Jose Silverman on 10-02-2022 Benzoylecgonine Screen Ql (U) Negative Negative [facility] Bilirubin Test strip Ql (U)O rdered By: Jose Silverman on 10-02-2022 Bilirubin Ql (U) Negative Negative [facility] Bilirubin.total [Mass/volume ] in Serum or PlasmaOrdered By: Jose Silverman on 10-02-2022 Bilirubin [Mass/Vol] 0.3 mg/dL Normal 0.3-1.0 [facility] Comment on above: Performed By: #### C BC, CMP, ETOH #### [facility] [address] [place] [address] [place] Calcium [Mass/volume] in Ser um or PlasmaOrdered By: Jose Silverman on 10-02-2022 Calcium [Mass/Vol] 9.6 mg/dL Normal 8.6-10.3 [facility] Comment on above: Performed By: #### C BC, CMP, ETOH #### [facility] [address] Cannabinoids [Presence] in U rine by Screen methodOrdered By: Jose Silverman on 10-02-2022 Cannabinoids Screen Ql (U) Negative Negative [facility] Comment on above: These are unconfirme d results and should not be used for legal purposes. Drug Cut-Off Concentration: AMPH 1000 ng/mL MIAH 200 ng/mL AYAN 200 ng/mL COCM 300 ng/mL OP 300 ng/mL PCP 25 ng/mL THC 20 ng/mL Carbon dioxide, total [Moles /volume] in Serum or PlasmaOrdered By: Jose Silverman on 10-02-2022 CO2 [Moles/Vol] 27.2 mmol/L Normal 21.0-31.0 [facility] Comment on above: Performed By: #### C BC, CMP, ETOH #### [place] [address] [place] Chloride [Moles/volume] in S brian or PlasmaOrdered By: Jose Silverman on 10-02-2022 Chloride [Moles/Vol] 101 mmol/L Normal 98-107 [facility] Comment on above: Performed By: #### C BC, CMP, ETOH #### [facility] [address] [place] [address] [place] Color Auto (U)Ordered By: Loli Silverman on 10-02-2022 Color (U) Yellow Yellow [facility] Complete Blood Count Auto Di ffon 10-02-2022 Mean Corpuscular HGB Conc 32.0 g/dL Normal 32.0-35.0 [facility] Comment on above: Performed By: #### C BC, CMP, ETOH #### [place] [address] [place] Monocytes/100 WBC (Bld) 17.72 % Normal 0.00-20.00 [facility] Comment on above: Performed By: #### C BC, CMP, ETOH #### [facility] [address] NRBC% 0.0 /100{WBC} Normal 0-0.5 [facility] Comment on above: Performed By: #### C BC, CMP, ETOH #### [facility] [address] Comprehensive Metabolic Pane tung 10-02-2022 Albumin [Mass/Vol] 5.0 g/dL Normal 3.5-5.7 [facility] Comment on above: Performed By: #### C BC, CMP, ETOH #### [address] Creatinine Clr Calc Pharmacy 107.48 [facility] Comment on above: Result Comment: PERF ORMED BY: [place] [address] PATHOLOGIST RECREATION COUNSELOR ASHELY CAREY M.D. Performed By: #### C BC, CMP, ETOH #### [address] GFR/1.73 sq M.predicted MDRD (S/P/Bld) [Vol rate/Area] mL/min/{1.73_m2} Normal [facility] Comment on above: Performed By: #### C BC, CMP, ETOH #### [address] Creatinine [Mass/volume] in Serum or PlasmaOrdered By: Jose Silverman on 10-02-2022 Creatinine [Mass/Vol] 0.89 mg/dL Normal 0.60-1.20 [facility] Comment on above: Performed By: #### C BC, CMP, ETOH #### [address] Dipstick and Microscopicon 0 10-02-2022 Appearance (U) Clear Normal Clear [facility] Comment on above: Order Comment: Name Collection Type:: Clean-Voided Midstream Performed By: #### U RDS, ADDONUAPLUS, CUU, UHCG #### [address] Bacteria,Urine 2+ High None Seen [facility] Comment on above: Order Comment: Name Collection Type:: Clean-Voided Midstream Performed By: #### U RDS, ADDONUAPLUS, CUU, UHCG #### [facility] [address] [place] [address] [place] Bilirubin,Urine Negative Normal Negative [facility] Comment on above: Order Comment: Name Collection Type:: Clean-Voided Midstream Performed By: #### U RDS, ADDONUAPLUS, CUU, UHCG #### [facility] [address] [place] [address] Color (U) Yellow Normal Yellow [facility] Comment on above: Order Comment: Name Collection Type:: Clean-Voided Midstream Performed By: #### U RDS, ADDONUAPLUS, CUU, UHCG #### [facility] [address] [place] [address] Glucose Ql (U) Normal Normal Normal [facility] Comment on above: Order Comment: Name Collection Type:: Clean-Voided Midstream Performed By: #### U RDS, ADDONUAPLUS, CUU, UHCG #### [facility] [address] [place] [address] [place] Hyaline Casts,Urine 0-8 Normal 0-8 [facility] Comment on above: Order Comment: Name Collection Type:: Clean-Voided Midstream Performed By: #### U RDS, ADDONUAPLUS, CUU, UHCG #### [facility] [address] [place] [address] [place] Ketones Ql (U) Negative Normal Negative [facility] Comment on above: Order Comment: Name Collection Type:: Clean-Voided Midstream Performed By: #### U RDS, ADDONUAPLUS, CUU, UHCG #### [facility] [address] [place] [address] [place] Leukocyte esterase Test strip Ql (U) 3+ High Negative [facility] Comment on above: Order Comment: Name Collection Type:: Clean-Voided Midstream Performed By: #### U RDS, ADDONUAPLUS, CUU, UHCG #### [facility] [address] [place] [address] [place] Nitrite,Urine Negative Normal Negative [facility] Comment on above: Order Comment: Name Collection Type:: Clean-Voided Midstream Performed By: #### U RDS, ADDONUAPLUS, CUU, UHCG #### [address] Occult Blood,Urine Negative Normal Negative [facility] Comment on above: Order Comment: Name Collection Type:: Clean-Voided Midstream Performed By: #### U RDS, ADDONUAPLUS, CUU, UHCG #### [address] pH (U) 6.5 [pH] Normal 5.0-9.0 [facility] Comment on above: Order Comment: Name Collection Type:: Clean-Voided Midstream Performed By: #### U RDS, ADDONUAPLUS, CUU, UHCG #### [place] [address] [place] Protein,Urine Negative Normal Negative [facility] Comment on above: Order Comment: Name Collection Type:: Clean-Voided Midstream Performed By: #### U RDS, ADDONUAPLUS, CUU, UHCG #### [address] RBC LM.HPF (Urine sed) [#/Area] 0 /[HPF] Normal 0-4 [facility] Comment on above: Order Comment: Name Collection Type:: Clean-Voided Midstream Performed By: #### U RDS, ADDONUAPLUS, CUU, UHCG #### [place] [address] [place] Specificy [place],Urine 1.021 Normal 1.001-1.030 [facility] Comment on above: Order Comment: Name Collection Type:: Clean-Voided Midstream Performed By: #### U RDS, ADDONUAPLUS, CUU, UHCG #### [address] Squamous Epithelial Cell,Urine 10-19 High 0-2 [facility] Comment on above: Order Comment: Name Collection Type:: Clean-Voided Midstream Performed By: #### U RDS, ADDONUAPLUS, CUU, UHCG #### [facility] [address] [place] [address] Urobilinogen,Urine Normal Normal Normal [facility] Comment on above: Order Comment: Name Collection Type:: Clean-Voided Midstream Performed By: #### U RDS, ADDONUAPLUS, CUU, UHCG #### [facility] [address] [place] [address] [place] WBC,Urine 10-19 High 0-4 [facility] Comment on above: Order Comment: Name Collection Type:: Clean-Voided Midstream Performed By: #### U RDS, ADDONUAPLUS, CUU, UHCG #### [facility] [address] [place] [address] Drug Screen,Urineon 10-03-19 23 Amphetamine Screen,Urine Negative Normal Negative [facility] Comment on above: Performed By: #### U RDS, ADDONUAPLUS, CUU, UHCG #### [facility] [address] [place] [address] [place] Barbiturate Screen,Urine Negative Normal Negative [facility] Comment on above: Performed By: #### U RDS, ADDONUAPLUS, CUU, UHCG #### [facility] [address] [place] [address] [place] Benzodiazepines Screen,Urine Negative Normal Negative [facility] Comment on above: Performed By: #### U RDS, ADDONUAPLUS, CUU, UHCG #### [facility] [address] [place] [address] [place] Cannabinoid Screen,Urine Negative Normal Negative [facility] Comment on above: Result Comment: Thes e are unconfirmed results and should not be used for legal purposes. Drug Cut-Off Concentration: AMPH 1000 ng/mL MIAH 200 ng/mL AYAN 200 ng/mL COCM 300 ng/mL OP 300 ng/mL PCP 25 ng/mL THC 20 ng/mL PERFORMED BY: [place] [phone] PATHOLOGIST RECREATION COUNSELOR ASHELY CAREY M.D. Performed By: #### U RDS, ADDONUAPLUS, CUU, UHCG #### [address] Cocaine Screen,Urine Negative Normal Negative [facility] Comment on above: Performed By: #### U RDS, ADDONUAPLUS, CUU, UHCG #### [address] Opiate Screen,Urine Negative Normal Negative [facility] Comment on above: Performed By: #### U RDS, ADDONUAPLUS, CUU, UHCG #### [address] Phencyclidine Screen,Urine Negative Normal Negative [facility] Comment on above: Performed By: #### U RDS, ADDONUAPLUS, CUU, UHCG #### [address] Erythrocyte distribution wid th [Ratio] by Automated countOrdered By: Jose Silverman on 10-02-2022 Erythrocyte distribution width (RBC) [Ratio] 15.8 % High 11.9-15.3 [facility] Comment on above: Performed By: #### C BC, CMP, ETOH #### [address] Erythrocytes [#/volume] in B lood by Automated countOrdered By: Jose Silverman on 10-02-2022 RBC (Bld) [#/Vol] 5.31 10*6/uL High 3.60-5.00 [facility] Comment on above: Performed By: #### C BC, CMP, ETOH #### [address] Ethanol [Mass/volume] in Ser um or PlasmaOrdered By: Jose Silverman on 10-02-2022 Ethanol [Mass/Vol] mg/dL Normal [facility] Comment on above: Performed By: #### C BC, CMP, ETOH #### [address] Ethanol [Mass/Vol] TNP [facility] Comment on above: Test not performed Ethyl Alcohol Profileon 09-08 Percent Ethanol Not performed Normal [facility] Comment on above: Result Comment: PERF ORMED BY: [place] [address] PATHOLOGIST RECREATION COUNSELOR ASHELY CAREY M.D. Performed By: #### C BC, CMP, ETOH #### [place] [id number] [facility] Glucose [Mass/volume] in Ser um or PlasmaOrdered By: Jose Silverman on 10-02-2022 Glucose [Mass/Vol] 98 mg/dL Normal 70-100 [facility] Comment on above: ADA recommended refe rence rangeRandom Glucose Reference Range is dependent on time and content of last meal. Glucose of more than 200 mg/dL in a nonstressed, ambulatory subject supports the diagnosis of Diabetes Mellitus. Result Comment: [place] om Glucose Reference Range is dependent on time and content of last meal. Glucose of more than 200 mg/dL in a nonstressed, ambulatory subject supports the diagnosis of Diabetes Mellitus. ADA recommended reference range Performed By: #### C BC, CMP, ETOH #### [facility] [address] [place] [address] HCG ( test) IA.rapi d Ql (U)Ordered By: Jose Silverman on 10-02-2022 HCG ( test) Ql (U) Negative [facility] HCG,Urineon 10-02-2022 Beta HCG ( test) Ql (U) Negative Normal [facility] Comment on above: Order Comment: Name Collection Type:: Clean-Voided Midstream Result Comment: PERF ORMED BY: [place] [address] PATHOLOGIST RECREATION COUNSELOR ASHELY CAREY M.D. Performed By: #### U RDS, ADDONUAPLUS, CUU, UHCG #### [facility] [address] [place], [place] [id number] [facility] Hematocrit [Volume Fraction] of Blood by Automated countOrdered By: Jose Silverman on 10-02-2022 Hematocrit (Bld) [Volume fraction] 41.7 % Normal 34.0-46.4 [facility] Comment on above: Performed By: #### C BC, CMP, ETOH #### [address] Hemoglobin [Mass/volume] in BloodOrdered By: Jose Silverman on 10-02-2022 Hemoglobin (Bld) [Mass/Vol] 13.3 g/dL Normal 11.8-15.4 [facility] Comment on above: Performed By: #### C BC, CMP, ETOH #### [address] Ketones Auto test strip (U) [Mass/Vol]Ordered By: Jose Silverman on 10-02-2022 Ketones (U) [Mass/Vol] Negative Negative [facility] Laboratory - UrinalysisOrder ed By: Jose Silverman on 10-02-2022 Hyaline casts LM Ql (Urine sed) 0-8 [LPF] 0-8 [facility] Leukocytes [#/volume] correc ruby for nucleated erythrocytes in Blood by Automated counOrdered By: Jose Silverman on 10-02-2022 WBC corrected for nucl RBC Auto (Bld) [#/Vol] 12.9 10*3/uL 3.8-11.6 [facility] Leukocytes [#/volume] in Blo od by Automated countOrdered By: Jose Silverman on 10-02-2022 WBC (Bld) [#/Vol] 12.9 10*3/uL High 3.8-11.6 [facility] Comment on above: Performed By: #### C BC, CMP, ETOH #### [place] [address] [place] Lymphocytes [#/volume] in Bl ood by Automated countOrdered By: Jose Silverman on 10-02-2022 Lymphocytes (Bld) [#/Vol] 3.0 10*3/uL Normal 1.00-4.8 [facility] Comment on above: Performed By: #### C BC, CMP, ETOH #### [facility] [address] [place] [address] [place] Lymphocytes/100 leukocytes i n Blood by Automated countOrdered By: Jose Silverman on 10-02-2022 Lymphocytes/100 WBC (Bld) 23.1 % Normal . [facility] Comment on above: Performed By: #### C BC, CMP, ETOH #### [facility] [facility] [address] [place] [address] [place] MCH [Entitic mass] by Automa ruby countOrdered By: Jose Silverman on 10-02-2022 MCH (RBC) [Entitic mass] 25.2 pg Normal 24.7-34.3 [facility] Comment on above: Performed By: #### C BC, CMP, ETOH #### [facility] [address] MCHC Auto (RBC) [Mass/Vol]Or dered By: Jose Silverman on 10-02-2022 MCHC (RBC) [Mass/Vol] 32.0 g/dL 32.0-35.0 [facility] MCV [Entitic volume] by Auto mated countOrdered By: Jose Silverman on 10-02-2022 MCV (RBC) [Entitic vol] 78.5 fL Low 80-100 F [facility] Comment on above: Performed By: #### C BC, CMP, ETOH #### [address] Monocyte distribution width [Entitic volume] in Blood by AutomatedOrdered By: Jose Silverman on 10-02-2022 Monocyte distribution width Auto (Bld) [Entitic vol] 17.72 % 0.00-20.00 [facility] Neutrophils [#/volume] in Bl ood by Automated countOrdered By: Jose Silverman on 10-02-2022 Neutrophils (Bld) [#/Vol] 8.9 10*3/uL High 1.8-7.7 [facility] Comment on above: Performed By: #### C BC, CMP, ETOH #### [address] Nitrite Test strip Ql (U)Ord ered By: Jose Silverman on 10-02-2022 Nitrite Ql (U) Negative Negative [facility] No Panel InformationOrdered By: Jose Silverman on 10-02-2022 Estimated GFR (CKD-EPI) > 60.0 mL/Min [facility] Creatinine Clearance (Chem 107.48 [facility] Nucleated erythrocytes [Pres ence] in Blood by Automated countOrdered By: Jose Silverman on 10-02-2022 Nucleated RBC Auto Ql (Bld) 0.0 /100{WBC} 0-0.5 [facility] Opiates [Presence] in Urine by Screen methodOrdered By: Jose Silverman on 10-02-2022 Opiates Screen Ql (U) Negative Negative [facility] Phencyclidine Screen Ql (U)O rdered By: Jose Silverman on 10-02-2022 Phencyclidine Ql (U) Negative Negative [facility] Platelet mean volume [Entiti c volume] in Blood by Automated countOrdered By: Jose Silverman on 10-02-2022 Platelet mean volume (Bld) [Entitic vol] 7.7 fL Normal 6.3-10.7 [facility] Comment on above: Performed By: #### C BC, CMP, ETOH #### [facility] [address] [place] [address] Platelets [#/volume] in Bloo d by Automated countOrdered By: Jose Silverman on 10-02-2022 Platelets (Bld) [#/Vol] 342 10*3/uL Normal 150-450 [facility] Comment on above: Performed By: #### C BC, CMP, ETOH #### [place] [address] [place] Potassium [Moles/volume] in Serum or PlasmaOrdered By: Jose Silverman on 10-02-2022 Potassium [Moles/Vol] 3.8 mmol/L Normal 3.5-5.1 [facility] Comment on above: Performed By: #### C BC, CMP, ETOH #### [place] [address] [place] Protein Auto test strip (U) [Mass/Vol]Ordered By: Jose Silverman on 10-02-2022 Protein (U) [Mass/Vol] Negative Negative [facility] Protein [Mass/volume] in Ser um or PlasmaOrdered By: Jose Silverman on 04-26-2023 Protein [Mass/Vol] 8.7 g/dL Normal 6.4-8.9 [facility] Comment on above: Performed By: #### C BC, CMP, ETOH #### [address] Serum globulin measurement b y calculation (mass/volume)Ordered By: Jose Silverman on 10-02-2022 Globulin (S) [Mass/Vol] 3.7 g/dL Normal [facility] Comment on above: Performed By: #### C BC, CMP, ETOH #### [address] Serum or plasma albumin/glob ulin mass ratioOrdered By: Jose Silverman on 10-02-2022 Albumin/Globulin [Mass ratio] 1.4 {ratio} Normal [facility] Comment on above: Performed By: #### C BC, CMP, ETOH #### [address] Serum or plasma anion gap de terminationOrdered By: Jose Silverman on 10-02-2022 Anion gap [Moles/Vol] 12.6 mmol/L Normal 6.0-15.0 [facility] Comment on above: Performed By: #### C BC, CMP, ETOH #### [address] Sodium [Moles/volume] in Ser um or PlasmaOrdered By: Jose Silverman on 10-02-2022 Sodium [Moles/Vol] 137 mmol/L Normal 136-145 [facility] Comment on above: Performed By: #### C BC, CMP, ETOH #### [address] Specific gravity Auto test s trip (U) [Rel density]Ordered By: Jose Silverman on 10-02-2022 Specific gravity (U) [Rel density] 1.021 1.001-1.030 [facility] Squamous epithelial cells de tection in urine sediment by light microscopyOrdered By: Jose Silverman on 10-02-2022 Epithelial cells.squamous LM Ql (Urine sed) 10-19 [HPF] 0-2 [facility] Urea nitrogen [Mass/volume] in Serum or PlasmaOrdered By: Jose Silverman on 10-02-2022 Urea nitrogen [Mass/Vol] 18 mg/dL Normal 7-25 [facility] Comment on above: Performed By: #### C BC, CMP, ETOH #### [facility] [address] [place] [address] [place] Urine Cultureon 10-02-2022 Bacteria identified Cx Nom (U) ORGANISM: Strep agalactiae - (group b) (O:STRAGA) [place] Count 50,000 PERFORMED BY: [place] [address] PATHOLOGIST RECREATION COUNSELOR ASHELY CAREY M.D. Normal [facility] Comment on above: Performed By: #### U RDS, ADDONUAPLUS, CUU, UHCG #### [facility] [address] [place] [address] Urine bacteria detection by automated methodOrdered By: Jose Silverman on 10-02-2022 Bacteria Auto Ql (U) 2+ None Seen [facility] Urine clarity by refractomet ry automatedOrdered By: Jose Silverman on 10-02-2022 Clarity Refractometry automated (U) Clear Clear [facility] Urine glucose measurement by automated test strip (mass/volume)Ordered By: Jose Silverman on 10-02-2022 Glucose Auto test strip (U) [Mass/Vol] Normal mg/dL Normal [facility] Urine hemoglobin detection b y automated test stripOrdered By: Jose Silverman on 10-02-2022 Hemoglobin Auto test strip Ql (U) Negative Negative [facility] Urine leukocyte esterase det ection by automated test stripOrdered By: Jose Silverman on 10-02-2022 Leukocyte esterase Auto test strip Ql (U) 3+ Negative [facility] Urobilinogen Auto test strip (U) [Mass/Vol]Ordered By: Jose Silverman on 10-02-2022 Urobilinogen (U) [Mass/Vol] Normal mg/dL Normal [facility] pH Auto test strip (U)Ordere d By: Jose Silverman on 10-02-2022 pH (U) 6.5 [pH] 5.0-9.0 [facility] Quick Strepon 09-25-2022 S. pyogenes Org specific cx Ql (Throat) Negative [facility] Other Quick Strep [facility] Other CHEMISTRYOrdered By: SYSTEM SYSTEM on 09-06-2022 [...] rate/Area] mL/min/1.73 m2 Normal >=59mL/min/1 .73 m2 [facility] [place] Chem S GFR/1.73 sq M.predicted among non-blacks MDRD (S/P/Bld) [Vol rate/Area] mL/min/1.73 m2 Normal >=59mL/min/1 .73 m2 [facility] [place] Chem S Glucose [Mass/Vol] [...] AM) Normal Negative [facility] UA Auto SS Paragould.plasma/Paragould.R BC (Bld) [Mass ratio] >30 /HPF Invalid [...] AM) Invalid Interpretation Code 1.005 - 1.030 [facility] [place] UA Auto SS UA Spec Desc Clean Catch (09/06/22 11:19 AM) Normal [facility] [place] UA Auto SS Urobilinogen Qn (U) 0.7040622 {Georgina'U}/dL Normal 0.0 - 1.0 EU/dL [facility] UA Auto SS WBC Auto Ql (U) Negative (09/06/22 11:19 AM) Normal Negative [facility] UA Auto SS WBC LM.HPF (Urine sed) [#/Area] 0-5 /HPF Normal 0-5/HPF [facility] [place] UA Auto SS BLOOD BANKOrdered By: John Montague on 08-14-2022 ABO/Rh Interp Positive Invalid Interpretation Code [facility] [place] BB Subsection CHEMISTRYOrdered By: [...] rate/Area] mL/min/1.73 m2 Normal >=59mL/min/1 .73 m2 [facility] [place] Chem S Globulin (S) [...] PM) Normal Negative [facility] UA Auto SS Paragould.plasma/Paragould.R BC (Bld) [Mass ratio] 0-3 /HPF Normal [...] [facility] UA Auto SS Urobilinogen Qn (U) 0.4870934 {Georgina'U}/dL Normal 0.0 - 1.0 EU/dL [facility] [place] UA Auto SS WBC Auto Ql (U) Negative (08/14/22 7:29 PM) Normal Negative [facility] [place] UA Auto SS WBC LM.HPF (Urine sed) [#/Area] 0-5 /HPF Normal 0-5/HPF [facility] [place] UA Auto SS CHLAMYDIA/GONOCOCCUS ALFREDO (SW AB/URINE/PAPon 07-15-2022 Chlamydia trachomatis, ALFREDO Negative Normal Negative [facility] Comment on above: Performed By: #### C T/NGNA #### [facility] [address] [address] [address] Cyril Hendricks Neisseria gonorrhoeae, ALFREDO Negative Normal Negative [facility] Comment on above: Performed By: #### C T/NGNA #### [facility] [address] [place] [address] Dr. Cyril Hendricks VAGINITIS/VAGINOSIS DNA PROB Maurice 07-13-2022 Krista species Negative Normal Negative [facility] Comment on above: Performed By: #### U MICRO, UACSIND #### [facility] [address] [address] [address] Cyril Hendricks Gardnerella vaginalis Positive Abnormal Negative [facility] Comment on above: Performed By: #### U MICRO, UACSIND #### [facility] [address] [address] [address] Cyril Hendricks Trichomonas vaginalis Negative Normal Negative [facility] Comment on above: Performed By: #### U MICRO, UACSIND #### [facility] [address] [address] [address] Cyril Hendricks COVID/FLU RT-PCRon SARS-CoV-2 (COVID-19) RNA ALFREDO+probe Ql (Unsp spec) Negative [facility] Other COVID/FLU RT-PCR Negative [facility] Other Quick Strepon 06-24-2022 S. pyogenes Org specific cx Ql (Throat) Negative [facility] Other Quick Strep [employer] Other CBC AUTO DIFFon 01-08-2022 BASO # 0.1 103/ul Normal 0.0-0.1 [facility] Comment on above: Performed By: #### C BC #### [facility] [address] [address] [address] Cyril Hendricks Basophils/100 WBC (Bld) 0.4 % Normal 0.2-2.0 [facility] Comment on above: Performed By: #### C BC #### [facility] [address] [address] [address] Cyril Hendricks EO # 0.1 103/ul Normal 0.0-0.7 [facility] Comment on above: Performed By: #### C BC #### [facility] [address] [place] [address] Dr. Cyril Hendricks Eosinophils/100 WBC (Bld) 0.9 % Normal 0.9-7.0 [facility] Comment on above: Performed By: #### C BC #### [facility] [address] [address] [address] Cyril Hendricks Erythrocyte distribution width (RBC) [Ratio] 12.3 % Normal 11.0-15.0 [facility] Comment on above: Performed By: #### C BC #### [facility] [address] [place] [address] Dr. Cyril Hendricks Hematocrit (Bld) [Volume fraction] 30.0 % Critically low 36.0-48.0 [facility] Comment on above: Performed By: #### C BC #### [facility] [address] [address] [address] Cyril Hendricks Hemoglobin (Bld) [Mass/Vol] 10.2 g/dL Critically low 12.0-16.0 [facility] Comment on above: Performed By: #### C BC #### [facility] [address] [place] [address] Dr. Cyril Hendricks IG # 0.05 10e3/ul Critically high 0.00-0.03 [facility] Comment on above: Performed By: #### C BC #### [facility] [address] [place] [address] Dr. Cyril Hendricks IG % 0.4 % Normal 0.0-0.5 [facility] Comment on above: Performed By: #### C BC #### [facility] [address] [place] [address] Dr. Cyril Hendricks LYMPH # 2.8 103/ul Normal 1.2-3.8 [facility] Comment on above: Performed By: #### C BC #### [facility] [address] [place] [address] Dr. Cyril Hendricks Lymphocytes/100 WBC (Bld) 19.7 % Critically low 20.5-60.0 [facility] Comment on above: Performed By: #### C BC #### [facility] [address] [place] [address] Dr. Cyril Hendricks MANUAL DIFF REQ NO Normal [facility] Comment on above: Performed By: #### C BC #### [facility] [address] [place] [address] Dr. Cyril Hendricks MCH (RBC) [Entitic mass] 30.6 pg Normal 26.7-34.0 [facility] Comment on above: Performed By: #### C BC #### [facility] [address] [place] [address] Dr. Cyril Hendricks MCHC (RBC) [Mass/Vol] 34.0 g/dL Normal 29.9-35.2 [facility] Comment on above: Performed By: #### C BC #### [facility] [address] [place] [address] Dr. Cyril Hendricks MCV (RBC) [Entitic vol] 90.1 fL Normal 81.0-99.0 [facility] Comment on above: Performed By: #### C BC #### [facility] [address] [place] [address] Dr. Cyril Hendricks MONO # 0.8 103/ul Normal 0.3-0.8 [facility] Comment on above: Performed By: #### C BC #### [facility] [address] [place] [address] Dr. Cyril Hendricks Monocytes/100 WBC (Bld) 5.9 % Normal 1.7-12.0 [facility] Comment on above: Performed By: #### C BC #### [facility] [address] [place] [address] Dr. Cyril Hendricks NEUT # 10.3 103/ul Critically high 1.4-6.5 [facility] Comment on above: Performed By: #### C BC #### [facility] [address] [place] [address] Dr. Cyril Hendricks Neutrophils/100 WBC (Bld) 72.7 % Normal 43.0-75.0 [facility] Comment on above: Performed By: #### C BC #### [facility] [address] [place] [address] Dr. Cyril Hendricks Platelet mean volume (Bld) [Entitic vol] 9.8 fL Normal 9.5-13.5 [facility] Comment on above: Performed By: #### C BC #### [facility] [address] [place] [address] Dr. Cyril Hendricks PLT 207 103/ul Normal 150-450 [facility] Comment on above: Performed By: #### C BC #### [facility] [address] [place] [address] Dr. Cyril Hendricks RBC 3.33 106/ul Critically low 4.20-5.40 [facility] Comment on above: Performed By: #### C BC #### [facility] [address] [place] [address] Dr. Cyril Hendricks WBC 14.2 103/ul Critically high 4.0-11.0 [facility] Comment on above: Performed By: #### C BC #### [facility] [address] [place] [address] Dr. Cyril Hendricks CBC AUTO DIFFon 01-07-2022 BASO # 0.1 103/ul Normal 0.0-0.1 [facility] Comment on above: Performed By: #### U MICRO, UACSIND #### [facility] [address] [address] [address] Cyril Hendricks Basophils/100 WBC (Bld) 0.5 % Normal 0.2-2.0 [facility] Comment on above: Performed By: #### U MICRO, UACSIND #### [facility] [address] [address] [address] Cyril Hendricks EO # 0.1 103/ul Normal 0.0-0.7 [facility] Comment on above: Performed By: #### U MICRO, UACSIND #### [facility] [address] [address] [address] Cyril Hendricks Eosinophils/100 WBC (Bld) 0.9 % Normal 0.9-7.0 [facility] Comment on above: Performed By: #### U MICRO, UACSIND #### [facility] [address] [place] [address] Dr. Cyril Hendricks Erythrocyte distribution width (RBC) [Ratio] 12.4 % Normal 11.0-15.0 [facility] Comment on above: Performed By: #### U MICRO, UACSIND #### [facility] [address] [place] [address] Dr. Cyril Hendricks Hematocrit (Bld) [Volume fraction] 34.3 % Critically low 36.0-48.0 [facility] Comment on above: Performed By: #### U MICRO, UACSIND #### [facility] [address] [place] [address] Dr. Cyril Hendricks Hemoglobin (Bld) [Mass/Vol] 11.6 g/dL Critically low 12.0-16.0 [facility] Comment on above: Performed By: #### U MICRO, UACSIND #### [facility] [address] [address] [address] Cyril Hendricks IG # 0.06 10e3/ul Critically high 0.00-0.03 [facility] Comment on above: Performed By: #### U MICRO, UACSIND #### [facility] [address] [place] [address] Dr. Cyril Hendricks IG % 0.4 % Normal 0.0-0.5 [facility] Comment on above: Performed By: #### U MICRO, UACSIND #### [facility] [address] [place] [address] Dr. Cyril Hendricks LYMPH # 3.1 103/ul Normal 1.2-3.8 [facility] Comment on above: Performed By: #### U MICRO, UACSIND #### [facility] [address] [place] [address] Dr. Cyril Hendricks Lymphocytes/100 WBC (Bld) 20.4 % Critically low 20.5-60.0 [facility] Comment on above: Performed By: #### U MICRO, UACSIND #### [facility] [address] [place] [address] Dr. Cyril Hendricks MANUAL DIFF REQ NO Normal [facility] Comment on above: Performed By: #### U MICRO, UACSIND #### [facility] [address] [place] [address] Dr. Cyril Hendricks MCH (RBC) [Entitic mass] 30.6 pg Normal 26.7-34.0 [facility] Comment on above: Performed By: #### U MICRO, UACSIND #### [facility] [address] [place] [address] Dr. Cyril Hendricks MCHC (RBC) [Mass/Vol] 33.8 g/dL Normal 29.9-35.2 [facility] Comment on above: Performed By: #### U MICRO, UACSIND #### [facility] [address] [place] [address] Dr. Cyril Hendricks MCV (RBC) [Entitic vol] 90.5 fL Normal 81.0-99.0 [facility] Comment on above: Performed By: #### U MICRO, UACSIND #### [facility] [address] [place] [address] Dr. Cyril Hendricks MONO # 0.9 103/ul Critically high 0.3-0.8 [facility] Comment on above: Performed By: #### U MICRO, UACSIND #### [facility] [address] [place] [address] Dr. Cyril Hendricks Monocytes/100 WBC (Bld) 6.2 % Normal 1.7-12.0 [facility] Comment on above: Performed By: #### U MICRO, UACSIND #### [facility] [address] [address] [address] Cyril Henrdicks NEUT # 10.9 103/ul Critically high 1.4-6.5 [facility] Comment on above: Performed By: #### U MICRO, UACSIND #### [facility] [address] [place] [address] Dr. Cyril Hendricks Neutrophils/100 WBC (Bld) 71.6 % Normal 43.0-75.0 [facility] Comment on above: Performed By: #### U MICRO, UACSIND #### [facility] [address] [place] [address] Dr. Cyril Hendricks Platelet mean volume (Bld) [Entitic vol] 11.1 fL Normal 9.5-13.5 [facility] Comment on above: Performed By: #### U MICRO, UACSIND #### [facility] [address] [place] [address] Dr. Cyril Hendricks PLT 240 103/ul Normal 150-450 [facility] Comment on above: Performed By: #### U MICRO, UACSIND #### [facility] [address] [place] [address] Dr. Cyril Hendricks RBC 3.79 106/ul Critically low 4.20-5.40 [facility] Comment on above: Performed By: #### U MICRO, UACSIND #### [facility] [address] [place] [address] Dr. Cyril Hendricks WBC 15.3 103/ul Critically high 4.0-11.0 [facility] Comment on above: Performed By: #### U MICRO, UACSIND #### [facility] [address] [place] [address] Dr. Cyril Hendricks Covid-19 PCR ([facility])on SARS-CoV-2 (COVID-19) RNA ALFREDO+probe Ql (Unsp spec) Not detected Normal NOT DETECTED [facility] Comment on above: Result Comment: [...] for this test is supported by the Happy of Health and Human Service's declaration that [...] used). Performed By: #### H CVPCRR #### [facility] [address] [place] [address] Dr. Cyril Hendricks DRUG SCREEN RAPID (URINE)on 01-07-2022 AMP Negative Normal NEGATIVE [facility] Comment on above: Performed By: #### U MICRO, UACSIND #### [facility] [address] [place] [address] Dr. Cyril Hendricks BAR Negative Normal NEGATIVE [facility] Comment on above: Performed By: #### U MICRO, UACSIND #### [facility] [address] [place] [address] Dr. Cyril Hendricks BUP Negative Normal NEGATIVE [facility] Comment on above: Performed By: #### U MICRO, UACSIND #### [facility] [address] [place] [address] Dr. Cyril Hendricks BZO Negative Normal NEGATIVE [facility] Comment on above: Performed By: #### U MICRO, UACSIND #### [facility] [address] [place] [address] Dr. Cyril Hendricks DARIN Negative Normal NEGATIVE [facility] Comment on above: Performed By: #### U MICRO, UACSIND #### [facility] [address] [place] [address] Dr. Cyril Hendricks CUT-OFFS SEE BELOW Normal [facility] Comment on above: Result Comment: AMP (Amphetamine): [...] Performed By: #### U MICRO, UACSIND #### [facility] [address] [place] [address] Dr. Cyril Hendricks DRUG CUT HEADER DRUG CLASS TEST SYSTEM CUT-OFF CONCENTRATIONS ARE FOLLOWS: Normal [facility] Comment on above: Performed By: #### U MICRO, UACSIND #### [facility] [address] [place] [address] Dr. Cyril Hendricks mAMP Negative Normal NEGATIVE [facility] Comment on above: Performed By: #### U MICRO, UACSIND #### [facility] [address] [place] [address] Dr. Cyril Hendricks MTD Negative Normal NEGATIVE [facility] Comment on above: Performed By: #### U MICRO, UACSIND #### [facility] [address] [place] [address] Dr. Cyril Hendricks OPI Negative Normal NEGATIVE [facility] Comment on above: Performed By: #### U MICRO, UACSIND #### [facility] [address] [place] [address] Dr. Cyril Hendricks OXY Negative Normal NEGATIVE [facility] Comment on above: Performed By: #### U MICRO, UACSIND #### [facility] [address] [place] [address] Dr. Cyril Hendricks PCP Negative Normal NEGATIVE [facility] Comment on above: Performed By: #### U MICRO, UACSIND #### [facility] [facility] [address] [place] [address] Dr. Cyril Hendricks PPX Negative Normal NEGATIVE [facility] Comment on above: Performed By: #### U MICRO, UACSIND #### [facility] [address] [place] [address] Dr. Cyril Hendricks TCA Negative Normal NEGATIVE [facility] Comment on above: Performed By: #### U MICRO, UACSIND #### [facility] [address] [place] [address] Dr. Cyril Hendricks THC Negative Normal NEGATIVE [facility] Comment on above: Performed By: #### U MICRO, UACSIND #### [facility] [address] [place] [address] Dr. Cyril Hendricks TYPE AND SCREENon 01-07-2022 TYPE AND SCREEN Negative Normal [facility] Comment on above: Performed By: #### H CVPCRR #### [facility] [address] [place] [address] Dr. Cyril Hendricks CULTURE URINEon 12-29-2021 CULTURE URINE Culture Observations: NO GROWTH. Normal [facility] Comment on above: Performed By: #### U RCX #### [facility] [address] [place] [address] Dr. Cyril Hendricks UA (CLEAN/CATCH) AGRONOMY RESEARCH MANAGER/MICRO I F IND.on 12-29-2021 Bilirubin Ql (U) Negative Normal NE[facility] Comment on above: Performed By: #### U MICRO, UACSIND #### [facility] [address] [place] [address] Dr. Cyril Hendricks Clarity (U) SL CLOUDY Abnormal CLEAR [facility] Comment on above: Performed By: #### U MICRO, UACSIND #### [facility] [address] [place] [address] Dr. Cyril Hendricks Color (U) LT. YELLOW Normal YELLOW [facility] Comment on above: Performed By: #### U MICRO, UACSIND #### [facility] [address] [place] [address] Dr. Cyril Hendricks Glucose Ql (U) Negative Normal NEGATIVE [facility] Comment on above: Performed By: #### U MICRO, UACSIND #### [facility] [address] [address] [address] Cyril Hendricks Hemoglobin Ql (U) Negative Normal NEGATIVE [facility] Comment on above: Performed By: #### U MICRO, UACSIND #### [facility] [address] [address] [address] Cyril Hendricks Ketones Ql (U) Negative Normal NEGATIVE [facility] Comment on above: Performed By: #### U MICRO, UACSIND #### [facility] [address] [address] [address] Cyril Hendricks LEUKOCYTES LARGE Abnormal NEGATIVE [facility] Comment on above: Performed By: #### U MICRO, UACSIND #### [facility] [address] [place] [address] Dr. Cyril Hendricks Nitrite Ql (U) Negative Normal NEGATIVE [facility] Comment on above: Performed By: #### U MICRO, UACSIND #### [facility] [address] [address] [address] Cyril Hendricks pH (U) 6.5 [pH] Normal 5-9 [facility] Comment on above: Performed By: #### U MICRO, UACSIND #### [facility] [address] [address] [address] Cyril Hendricks SPEC GRAVITY 1.010 Normal 1.005-<=1.02 5 [facility] Comment on above: Performed By: #### U MICRO, UACSIND #### [facility] [address] [address] [address] Cyril Hendricks UA PROTEIN Negative Normal NEGATIVE/ TRACE [facility] Comment on above: Performed By: #### U MICRO, UACSIND #### [facility] [address] [address] [address] Cyril Hendricks UR MICRO IND INDICATED Normal [facility] Comment on above: Performed By: #### U MICRO, UACSIND #### [facility] [address] [address] [address] Cyril Hendricks Urobilinogen Qn (U) 0.2 {Georgina'U}/dL Normal 0.2 - 1. 0 [facility] Comment on above: Performed By: #### U MICRO, UACSIND #### [facility] [address] [place] [address] Dr. Cyril Hendricks URINE MICROSCOPIC ONLYon BACTERIA SMALL Abnormal NONE SEEN [facility] Comment on above: Performed By: #### U MICRO, UACSIND #### [facility] [address] [place] [address] Dr. Cyril Hendricks Bacteria identified Cx Nom (U) INDICATED Normal [facility] Comment on above: Performed By: #### U MICRO, UACSIND #### [facility] [address] [place] [address] Dr. Cyril Hendricks CAST NONE SEEN Normal NONE SEEN [facility] Comment on above: Performed By: #### U MICRO, UACSIND #### [facility] [address] [place] [address] Dr. Cyril Hendricks Crystals LM Nom (Urine sed) NONE SEEN Normal NONE SEEN [facility] Comment on above: Performed By: #### U MICRO, UACSIND #### [facility] [address] [place] [address] Dr. Cyril Hendricks Epithelial cells LM Ql (Urine sed) MANY Abnormal NONE SEEN /RARE [facility] Comment on above: Performed By: #### U MICRO, UACSIND #### [facility] [address] [place] [address] Dr. Cyril Hendricks MUCOUS NONE SEEN Normal NONE SEEN [facility] Comment on above: Performed By: #### U MICRO, UACSIND #### [facility] [address] [place] [address] Dr. Cyril Hendricks RBC 0-2 Normal 0-2 [facility] Comment on above: Performed By: #### U MICRO, UACSIND #### [facility] [address] [place] [address] Dr. Cyril Hendricks WBC 10-20 Abnormal NONE SEEN [facility] Comment on above: Performed By: #### U MICRO, UACSIND #### [facility] [address] [place], [place] [address] Dr. Cyril Hendricks GROUP B STREP CULTUREon 12-07 S. agalactiae Ag Ql (Unsp spec) Culture Observations: NEGATIVE FOR GROUP B STREPTOCOCCUS. Normal [facility] Comment on above: Performed By: #### G BSCX #### [facility] [id number] Cyril Hendricks SSAon 12-13-2021 SSA <0.3 Normal <7.0 [facility] Comment on above: Result Comment: Reference Range: <7.0 Negative 7.0-10.0 Equivocal >10.0 Positive Performed By: #### S SARO, TSH, FT4, SSBLA #### [facility] [employer] [address] [place], [place] [id number] [employer] Operator: Homer Hoffman MD SSBon 12-13-2021 SSB <0.3 Normal <7.0 [facility] Comment on above: Result Comment: Reference Range: <7.0 Negative 7.0-10.0 Equivocal >10.0 Positive Performed By: #### S SARO, TSH, FT4, SSBLA #### [facility] [address] [place], [place] [id number] [employer] Operator: Homer Hoffman MD No Panel Informationon 12-12 [facility] T4, Freeon 12-12-2021 Thyroxine, Free 0.98 ng/dL 0.93 - 1.70 ng/dL [facility] TSHon 12-12-2021 TSH Qn 4.35 m[IU]/L [facility] Thyroid Stim. Horm.on 2021 Thyroid Stim. Horm. 4.35 uIU/mL Normal 0.30-5.00 [facility] Comment on above: Performed By: #### S SARO, TSH, FT4, SSBLA #### [facility] [employer] [address] [place] [id number] [employer] Operator: Homer Hoffman MD Thyroxine, Freeon 12-12-2021 Thyroxine, Free 0.98 ng/dL Normal 0.93-1.70 [facility] Comment on above: Performed By: #### S SARO, TSH, FT4, SSBLA #### [facility] [address] [place] [address] [employer] Operator: Homer Hoffman MD US PREG BIOPHY W [...] by: SOFIA KABA Date: 2021-11-27 13:55 Normal [facility] COVID + FLU Quick Testingon 11-13-2021 SARS-CoV-2 (COVID-19) RNA ALFREDO+probe Ql (Unsp spec) Negative [employer] Other COVID + FLU Quick Testing Negative [facility] [employer] Other GLUCOSE - 1HRon 10-23-2021 Glucose [Mass/Vol] 83 mg/dL Normal 74-106 [facility] Comment on above: Performed By: #### G LU1HR #### [facility] [address] [address] [address] Cyril Hendricks CHLAMYDIA/GONOCOCCUS ALFREDO (SW AB/URINE/PAPon 10-05-2021 Chlamydia trachomatis, ALFREDO Negative Normal Negative [facility] Comment on above: Performed By: #### C T/NGNA #### [facility] [address] [place], [place] [address] Dr. Cyril Hendricks Neisseria gonorrhoeae, ALFREDO Negative Normal Negative [facility] Comment on above: Performed By: #### C T/NGNA #### [facility] [address] [address] [address] Cyril Hendricks VAGINITIS/VAGINOSIS DNA PROB Maurice 10-04-2021 Krista species Positive Abnormal Negative [facility] Comment on above: Performed By: #### H CVPCRR #### [facility] [address] [place] [address] Dr. Cyril Hendricks Gardnerella vaginalis Negative Normal Negative [facility] Comment on above: Performed By: #### H CVPCRR #### [facility] [address] [place] [address] Dr. Cyril Hendricks Trichomonas vaginalis Negative Normal Negative [facility] Comment on above: Performed By: #### H CVPCRR #### [facility] [address] [place] [address] Dr. Cyril Hendricks HEP B SURFACE ANTIGEN SCREEN on 10-03-2021 HBsAg Screen Negative Normal Negative [facility] Comment on above: Performed By: #### H CVPCRR #### [facility] [address] [place] [address] Dr. Cyril Hendricks HEPATITIS C VIRUS AB W/ REFL EX QUANTon 10-03-2021 HCV AB <0.1 Normal 0.0-0.9 [facility] Comment on above: Performed By: #### H CVPCRR #### [facility] [address] [place] [address] Dr. Cyril Hendricks Interpretation: Comment Normal [facility] Comment on above: Result Comment: Nega tive Not infected with HCV, unless recent infection is suspected or other evidence exists to indicate HCV infection. Performed By: #### H CVPCRR #### [facility] [address] [place] [address] Dr. Cyril Hendricks HIV 1 AND 2 WITH REFLEXon HIV Screen 4th Generation wRfx Non-Reactive Normal Non Reactive [facility] Comment on above: Result Comment: HIV Negative HIV-1/HIV-2 antibodies and HIV-1 p24 antigen were NOT detected. There is no laboratory evidence of HIV infection. Performed By: #### H IV12 #### [facility] [address] [place] [address] Dr. Cyril Hendricks RPR QUANTon 10-03-2021 Rapid Plasma Reagin, Quant Non-Reactive Normal NonRea<1:1 [facility] Comment on above: Result Comment: Juliette brito Note: This test does not meet current guidelines for screening and diagnosis of syphilis. This test is intended for following treatment response in patients being treated for syphilis infection. To screen for syphilis infection, a reflex cascade that includes both RPR and a treponema-specific assay should be utilized, such as Treponema pallidum (Syphilis) Screening Morrison (050708) or Rapid Plasma Reagin (RPR) Test With Reflex to Quantitative RPR and Confirmatory Treponema pallidum Antibodies (997205). Performed By: #### U MICRO, UACSIND #### [facility] [address] [place] [address] Dr. Cyril Hendricks RUBELLA AB IGGon 10-03-2021 Rubella Antibodies, IgG <0.90 Critically low Immune > 0.99 [facility] Comment on above: Result Comment: Non- immune <0.90 Equivocal 0.90 - 0.99 Immune >0.99 Performed By: #### U MICRO, UACSIND #### [facility] [address] [place] [address] Dr. Cyril Hendricks CBC AUTO DIFFon 10-02-2021 BASO # 0.1 103/ul Normal 0.0-0.1 [facility] Comment on above: Performed By: #### U MICRO, UACSIND #### [facility] [address] [place] [address] Dr. Cyril Hendricks Basophils/100 WBC (Bld) 0.4 % Normal 0.2-2.0 [facility] Comment on above: Performed By: #### U MICRO, UACSIND #### [facility] [address] [place] [address] Dr. Cyril Hendricks EO # 0.1 103/ul Normal 0.0-0.7 [facility] Comment on above: Performed By: #### U MICRO, UACSIND #### [facility] [address] [place] [address] Dr. Cyril Hendricks Eosinophils/100 WBC (Bld) 1.1 % Normal 0.9-7.0 [facility] Comment on above: Performed By: #### U MICRO, UACSIND #### [facility] [address] [place] [address] Dr. Cyril Hendricks Erythrocyte distribution width (RBC) [Ratio] 13.5 % Normal 11.0-15.0 [facility] Comment on above: Performed By: #### U MICRO, UACSIND #### [facility] [address] [place] [address] Dr. Cyril Hendricks Hematocrit (Bld) [Volume fraction] 34.5 % Critically low 36.0-48.0 [facility] Comment on above: Performed By: #### U MICRO, UACSIND #### [facility] [address] [place] [address] Dr. Cyril Hendricks Hemoglobin (Bld) [Mass/Vol] 12.0 g/dL Normal 12.0-16.0 [facility] Comment on above: Performed By: #### U MICRO, UACSIND #### [facility] [address] [place] [address] Dr. Cyril Hendricks IG # 0.04 10e3/ul Critically high 0.00-0.03 [facility] Comment on above: Performed By: #### U MICRO, UACSIND #### [facility] [address] [place] [address] Dr. Cyril Hendricks IG % 0.3 % Normal 0.0-0.5 [facility] Comment on above: Performed By: #### U MICRO, UACSIND #### [facility] [address] [place] [address] Dr. Cyril Hendricks LYMPH # 2.6 103/ul Normal 1.2-3.8 [facility] Comment on above: Performed By: #### U MICRO, UACSIND #### [facility] [address] [place] [address] Dr. Cyril Hendricks Lymphocytes/100 WBC (Bld) 21.3 % Normal 20.5-60.0 [facility] Comment on above: Performed By: #### U MICRO, UACSIND #### [facility] [address] [address] [address] Cyril Hendricks MANUAL DIFF REQ NO Normal [facility] Comment on above: Performed By: #### U MICRO, UACSIND #### [facility] [address] [address] [address] Cyril Hendricks MCH (RBC) [Entitic mass] 32.5 pg Normal 26.7-34.0 [facility] Comment on above: Performed By: #### U MICRO, UACSIND #### [facility] [address] [address] [address] Cyril Hendricks MCHC (RBC) [Mass/Vol] 34.8 g/dL Normal 29.9-35.2 [facility] Comment on above: Performed By: #### U MICRO, UACSIND #### [facility] [address] [place] [address] Dr. Cyril Hendricks MCV (RBC) [Entitic vol] 93.5 fL Normal 81.0-99.0 [facility] Comment on above: Performed By: #### U MICRO, UACSIND #### [facility] [address] [address] [address] Cyril Hendricks MONO # 0.8 103/ul Normal 0.3-0.8 [facility] Comment on above: Performed By: #### U MICRO, UACSIND #### [facility] [address] [address] [address] Cyril Hendricks Monocytes/100 WBC (Bld) 6.2 % Normal 1.7-12.0 [facility] Comment on above: Performed By: #### U MICRO, UACSIND #### [facility] [address] [address] [address] Cyril Hendricks NEUT # 8.6 103/ul Critically high 1.4-6.5 [facility] Comment on above: Performed By: #### U MICRO, UACSIND #### [facility] [address] [place] [address] Dr. Cyril Hendricks Neutrophils/100 WBC (Bld) 70.7 % Normal 43.0-75.0 [facility] Comment on above: Performed By: #### U MICRO, UACSIND #### [facility] [address] [address] [address] Cyril Hendricks Platelet mean volume (Bld) [Entitic vol] 9.1 fL Critically low 9.5-13.5 [facility] Comment on above: Performed By: #### U MICRO, UACSIND #### [facility] [address] [address] [address] Cyril Hendricks PLT 257 103/ul Normal 150-450 [facility] Comment on above: Performed By: #### U MICRO, UACSIND #### [facility] [address] [address] [address] Cyril Hendricks RBC 3.69 106/ul Critically low 4.20-5.40 [facility] Comment on above: Performed By: #### U MICRO, UACSIND #### [facility] [address] [address] [address] Cyril Hendricks WBC 12.2 103/ul Critically high 4.0-11.0 [facility] Comment on above: Performed By: #### U MICRO, UACSIND #### [facility] [address] [address] [address] Cyril Hendricks CULTURE URINEon 10-02-2021 CULTURE URINE Culture Observations: MODERATE GROWTH OF MIXED GENITAL DRAGAN. NO POTENTIAL PATHOGENS SEEN. Normal [facility] Comment on above: Performed By: #### H CVPCRR #### [facility] [address] [place] [address] Dr. Cyril Hendricks GLYCOHEMOGLOBIN A1Con 2021 ADA RECOMMENDATION SEE BELOW Normal [facility] Comment on above: Result Comment: ADA RECOMMENDED LIMIT 4.0 - 6.0 ADA THERAPEUTIC TARGET < 7.0 ACTION SUGGESTED > 7.0 Performed By: #### H CVPCRR #### [facility] [address] [place] [address] Dr. Cyril Hendricks Glucose [Mass/Vol] 80 mg/dL Normal [facility] Comment on above: Performed By: #### H CVPCRR #### [facility] [address] [place], [place] [address] Dr. Cyril Hendricks HbA1c (Bld) [Mass fraction] 4.4 % Critically low 4.5-6.2 [facility] Comment on above: Performed By: #### H CVPCRR #### [facility] [address], [place] [address] Dr. Cyril Hendricks TYPE AND SCREENon 10-02-2021 TYPE AND SCREEN Negative Normal [facility] Comment on above: Performed By: #### H CVPCRR #### [facility] [address], [place] [address] Dr. Cyril Hendricks US PREG PLACENTAon 2 [...] SOFIA KABA Date: 2021-10-02 10:47 Normal [facility] US PREG ANATOMY SINGLEon US [...] (44% by ultrasound, 29% by expected) FL/AC: 0.598606 FL/BPD: 0.427245 HC/AC: 1.132872 GESTATIONAL AGE: Age by EDC: 21 weeks, 3 days NOY by EDC: 01/12/2022 Age by current US: 21 weeks, 1 day NOY by current US: 01/14/2022 IMPRESSION: 1. Single live intrauterine with growth detailed above. 2. Posterior, low-lying placenta. Electronically authenticated by: MARS FRANKEL Date: 2021-09-04 16:30 Normal [facility] Vital Signs Date Time Vital Sign Value Performing Clinician Facility 02-03-2024 09:23-0400 Body temperature 97.88 [degF] Siva Schulte [facility] 02-03-2024 09:23-0400 Diastolic blood pressure 70 mm[Hg] Siva Schulte [facility] 02-03-2024 09:23-0400 Heart rate 85 /min Siva Schulte [facility] 02-03-2024 09:23-0400 Respiratory rate 18 /min Siva Schulte [facility] 02-03-2024 09:23-0400 SaO2% (BldA) [Mass fraction] 99 % Siva Schulte [facility] 02-03-2024 09:23-0400 Systolic blood pressure 106 mm[Hg] Siva Schulte [facility] 09-23-2023 09:16-0400 Body temperature 98.42 [degF] Wil Chandra [facility] 09-23-2023 09:16-0400 Diastolic blood pressure 68 mm[Hg] Wil Chandra [facility] 09-23-2023 09:16-0400 Heart rate 82 /min Wil Chandra [facility] 09-23-2023 09:16-0400 Respiratory rate 18 /min Wil Chandra [facility] 09-23-2023 09:16-0400 SaO2% (BldA) [Mass fraction] 97 % Wil Chandra [facility] 09-23-2023 09:16-0400 Systolic blood pressure 98 mm[Hg] Wil Chandra [facility] 08-27-2023 12:24-0400 Diastolic blood pressure 61 mm[Hg] [facility] 08-27-2023 12:24-0400 Heart rate 77 /min [facility] 08-27-2023 12:24-0400 Mean blood pressure 72 mm[Hg] [facility] 08-27-2023 12:24-0400 Respiratory rate 16 /min [facility] 08-27-2023 12:24-0400 SaO2% (BldA) [Mass fraction] 97 % [facility] 08-27-2023 12:24-0400 Systolic blood pressure 93 mm[Hg] [facility] 08-27-2023 11:30-0400 Diastolic blood pressure 69 mm[Hg] [facility] 08-27-2023 11:30-0400 Heart rate 74 /min [facility] 08-27-2023 11:30-0400 Mean blood pressure 82 mm[Hg] [facility] 08-27-2023 11:30-0400 Respiratory rate 16 /min [facility] 08-27-2023 11:30-0400 SaO2% (BldA) [Mass fraction] 99 % [facility] 08-27-2023 11:30-0400 Systolic blood pressure 107 mm[Hg] [facility] 08-27-2023 10:30-0400 Diastolic blood pressure 62 mm[Hg] [facility] 08-27-2023 10:30-0400 Heart rate 91 /min [facility] 08-27-2023 10:30-0400 Mean blood pressure 77 mm[Hg] [facility] 08-27-2023 10:30-0400 Respiratory rate 18 /min [facility] 08-27-2023 10:30-0400 SaO2% (BldA) [Mass fraction] 100 % [facility] 08-27-2023 10:30-0400 Systolic blood pressure 107 mm[Hg] [facility] 08-27-2023 09:41-0400 Body temperature 98.6 [degF] [facility] 08-27-2023 09:41-0400 Heart rate 80 /min [facility] 01-04-2023 00:03-0400 Body temperature 98.78 [degF] Siva Schulte [facility] 01-04-2023 00:03-0400 Diastolic blood pressure 54 mm[Hg] Siva Schulte [facility] 01-04-2023 00:03-0400 Heart rate 97 /min Siva Schulte [facility] 01-04-2023 00:03-0400 Mean blood pressure 70 mm[Hg] Siva Schulte [facility] 01-04-2023 00:03-0400 Respiratory rate 18 /min Siva Schulte [facility] 01-04-2023 00:03-0400 SaO2% (BldA) [Mass fraction] 94 % Siva Schulte [facility] 01-04-2023 00:03-0400 Systolic blood pressure 102 mm[Hg] Siva Eris [facility] 01-03-2023 23:00-0400 Body temperature 100.04 [degF] Siva Eris [facility] 01-03-2023 23:00-0400 Diastolic blood pressure 62 mm[Hg] Siva Eris [facility] 01-03-2023 23:00-0400 Heart rate 100 /min Siva Eris [facility] 01-03-2023 23:00-0400 Mean blood pressure 75 mm[Hg] Siva Eris [facility] 01-03-2023 23:00-0400 Systolic blood pressure 100 mm[Hg] Siva Eris [facility] 01-03-2023 22:42-0400 Body temperature 100.76 [degF] Siva Eris [facility] 01-03-2023 22:42-0400 Diastolic blood pressure 59 mm[Hg] Siva Eris [facility] 01-03-2023 22:42-0400 Heart rate 105 /min Siva Eris [facility] 01-03-2023 22:42-0400 Respiratory rate 20 /min Siva Eris [facility] 01-03-2023 22:42-0400 SaO2% (BldA) [Mass fraction] 99 % Siva Eris [facility] 01-03-2023 22:42-0400 Systolic blood pressure 96 mm[Hg] Siva Eris [facility] 10-02-2022 21:29-0400 Diastolic blood pressure 72 mm[Hg] PHYSICIAN [facility] 10-02-2022 21:29-0400 Heart rate 94 /min PHYSICIAN [facility] [facility] 10-02-2022 21:29-0400 Respiratory rate 18 /min PHYSICIAN NO [facility] 10-02-2022 21:29-0400 SaO2% (BldA) [Mass fraction] 98 % PHYSICIAN NO [facility] 10-02-2022 21:29-0400 Systolic blood pressure 141 mm[Hg] PHYSICIAN NO [facility] 10-02-2022 17:03-0400 Body height 170.18 cm PHYSICIAN NO [facility] 10-02-2022 17:03-0400 Body temperature 98.3 [degF] PHYSICIAN NO [facility] 10-02-2022 17:03-0400 Body weight 76.4 kg PHYSICIAN NO [facility] 09-25-2022 13:25-0400 Body height 170.18 cm Viet Yuri Other [facility] Other 09-25-2022 13:25-0400 Body mass index (BMI) [Ratio] 26.62 kg/m2 Viet Welch Other [facility] Other 09-25-2022 13:25-0400 Body temperature 98.2 [degF] Viet Welch Other [facility] Other 09-25-2022 13:25-0400 Body weight 77.11 kg Viet Welch Other [facility] Other 09-25-2022 13:25-0400 Diastolic blood pressure 68 mm[Hg] Viet Welch Other [facility] Other 09-25-2022 13:25-0400 Respiratory rate 18 /min Viet Welch Other [facility] Other 09-25-2022 13:25-0400 SaO2% (BldA) [Mass fraction] 98 % Viet Welch Other [facility] Other 09-25-2022 13:25-0400 Systolic blood pressure 107 mm[Hg] Viet Welch Other [facility] Other 09-06-2022 13:54-0400 Diastolic blood pressure 72 mm[Hg] Wil Corazon [facility] 09-06-2022 13:54-0400 Heart rate 60 /min Wil Corazon [facility] 09-06-2022 13:54-0400 Respiratory rate 16 /min Wil Corazon [facility] 09-06-2022 13:54-0400 SaO2% (BldA) [Mass fraction] 100 % Wil Corazon [facility] 09-06-2022 13:54-0400 Systolic blood pressure 103 mm[Hg] Wil Corazon [facility] 09-06-2022 11:41-0400 Diastolic blood pressure 65 mm[Hg] Wil Corazon [facility] 09-06-2022 11:41-0400 Heart rate 58 /min Wil Corazon [facility] 09-06-2022 11:41-0400 Mean blood pressure 77 mm[Hg] Wil Corazon [facility] 09-06-2022 11:41-0400 Respiratory rate 16 /min Wil Corazon [facility] 09-06-2022 11:41-0400 SaO2% (BldA) [Mass fraction] 100 % Wil Corazon [facility] 09-06-2022 11:41-0400 Systolic blood pressure 102 mm[Hg] Wil Chandra [facility] 09-06-2022 10:42-0400 Body temperature 98.24 [degF] Wil Chandra [facility] 09-06-2022 10:42-0400 bodymassindex 1.17 Wil Chandra [facility] Comment on above: [facility] 10:42-0400 Diastolic blood pressure 71 mm[Hg] Wil Chandra [facility] 09-06-2022 10:42-0400 Heart rate 73 /min Wil Chandra [facility] 09-06-2022 10:42-0400 Height/Length Percentile 84.89 Wil Chandra [facility] Comment on above: Result Comment: ^~:!Percentile [facility] 09-06-2022 10:42-0400 Height/Length Z-Score 1.03 Wil Chandra [facility] Comment on above: Result Comment: ^[facility] 10:42-0400 Respiratory rate 16 /min Wil Chandra [facility] 09-06-2022 10:42-0400 SaO2% (BldA) [Mass fraction] 98 % Wil Chandra [facility] 09-06-2022 10:42-0400 Systolic blood pressure 111 mm[Hg] Wil Chandra [facility] 09-06-2022 10:42-0400 weight 1.47 Wil Chandra [facility] Comment on above: Result Comment: [facility] 10:42-0400 Weight Percentile 92.90 % Wil Chandra [facility] Comment on above: Result Comment: ^~:!Percentile Source -[facility] 08-14-2022 21:30-0500 Diastolic blood pressure 79 mm[Hg] Bob Llanos [facility] 08-14-2022 21:30-0500 Heart rate 87 /min Bob Llanos [facility] 08-14-2022 21:30-0500 Mean blood pressure 93 mm[Hg] Bob Llanos [facility] 08-14-2022 21:30-0500 Nursing Progress Note Reason Other: pt to US via stretcher at this time. Bob Llanos [facility] 08-14-2022 21:30-0500 Respiratory rate 16 /min Bob Llanos [facility] 08-14-2022 21:30-0500 SaO2% (BldA) [Mass fraction] 100 % Bob Llanos [facility] 08-14-2022 21:30-0500 Systolic blood pressure 120 mm[Hg] Bob Llanos [facility] 08-14-2022 19:20-0500 Body temperature 98.96 [degF] Bob Llanos [facility] 08-14-2022 19:20-0500 bodymassindex 1.17 Bob Llanos [facility] Comment on above: Result Comment: ^~:!ZScore Source [facility] 08-14-2022 19:20-0500 Diastolic blood pressure 61 mm[Hg] Bob Llanos [facility] 08-14-2022 19:20-0500 Heart rate 98 /min Bob Llanos [facility] 08-14-2022 19:20-0500 Height/Length Percentile 84.91 Bob Llanos [facility] Comment on above: Result Comment: ^~:!Percentile Source [facility] 08-14-2022 19:20-0500 Height/Length Z-Score 1.03 Bob Llanos [facility] Comment on above: Result Comment: ^~:!ZScore [facility] 08-14-2022 19:20-0500 Respiratory rate 16 /min Bob Llanos [facility] 08-14-2022 19:20-0500 SaO2% (BldA) [Mass fraction] 99 % Bob Llanos [facility] 08-14-2022 19:20-0500 Systolic blood pressure 114 mm[Hg] Bob Llanos [facility] 08-14-2022 19:20-0500 weight 1.47 Bob Llanos [facility] Comment on above: Result Comment: ^~:!ZScore [facility] 08-14-2022 19:20-0500 Weight Percentile 92.94 % Bob Llanos [facility] Comment on above: Result Comment: ^~:!Percentile Source - [facility] 06-24-2022 13:30-0500 Body height 170.18 cm Viet Welch Other [facility] Other 06-24-2022 13:30-0500 Body mass index (BMI) [Ratio] 26.62 kg/m2 Viet Welch Other [facility] Other 06-24-2022 13:30-0500 Body temperature 97.8 [degF] Viet Welch Other [facility] Other 06-24-2022 13:30-0500 Body weight 77.11 kg Viet Welch Other [facility] Other 06-24-2022 13:30-0500 Diastolic blood pressure 63 mm[Hg] Viet Welch Other [facility] Other 06-24-2022 13:30-0500 Respiratory rate 18 /min Viet Welch Other [facility] Other 06-24-2022 13:30-0500 SaO2% (BldA) [Mass fraction] 98 % Viet Welch Other [facility] Other 06-24-2022 13:30-0500 Systolic blood pressure 97 mm[Hg] Viet Welch Other [facility] Other 11-13-2021 14:05-0400 Body height 170.18 cm Michael Oneil Other [facility] Other 11-13-2021 14:05-0400 Body mass index (BMI) [Ratio] 26.62 kg/m2 Michael Oneil Other [facility] Other 11-13-2021 14:05-0400 Body temperature 98.4 [degF] Michael Oneil Other [facility] Other 11-13-2021 14:05-0400 Body weight 77.11 kg Mcihael Oneil Other [facility] Other 11-13-2021 14:05-0400 Respiratory rate 18 /min Michael Oneil Other [facility] Other 11-13-2021 14:05-0400 SaO2% (BldA) [Mass fraction] 98 % Michael Oneil Other [facility] Other 11-06-2021 15:45-0400 Body height Kendra Witt Other [facility] Other 11-06-2021 15:45-0400 Body mass index (BMI) [Ratio] 26.62 kg/m2 Kendra Witt Other [facility] Other 11-06-2021 15:45-0400 Body weight 77.11 kg Kendra Witt Other [facility] Other 11-06-2021 15:45-0400 Respiratory rate 20 /min Kendra Witt Other [facility] Other 11-06-2021 15:45-0400 SaO2% (BldA) [Mass fraction] 98 % Kendra Witt Other [facility] Other Encounters Encounter Date Encounter Type Care Provider Facility Start: 03-01-2024 End: 03-01-2024 ambulatory JUVENAL MIRI Not Available Start: 02-16-2024 End: 02-16-2024 ambulatory GONSALO CORRAL Not Available Start: 02-03-2024 End: 02-03-2024 Emergency department patient visit Siva Schulte [facility] Start: 01-26-2024 End: 01-26-2024 ambulatory JUVENAL MIRI Not Available Start: 12-29-2023 End: 12-29-2023 ambulatory GONSALO ELLIS Not Available Start: 12-22-2023 End: 12-22-2023 ambulatory JUVENAL R [facility] Start: 12-01-2023 End: 12-01-2023 ambulatory JUVENAL MIRI Not Available Start: 11-10-2023 End: 11-10-2023 ambulatory JUVENAL [facility] Start: 10-27-2023 End: 10-27-2023 ambulatory GONSALO CORRAL Not Available Start: 09-29-2023 End: 09-29-2023 ambulatory JUVENAL RAMIREZO Not Available Start: 09-23-2023 End: 09-23-2023 Emergency department patient visit Wil Corazon [facility] Start: 09-04-2023 End: 09-04-2023 ambulatory JUVENAL THORPE Not Available Start: 08-27-2023 End: 08-27-2023 Emergency department patient visit Emily Browningyusef [facility] Start: 08-18-2023 End: 08-18-2023 ambulatory SELAM ELSA Facility[place] [place] [facility] Start: 01-03-2023 End: 01-04-2023 Emergency department patient visit Siva Schulte [facility] Start: 12-12-2022 End: 12-12-2022 ambulatory Kenneth Lina Other [facility] Other Start: 12-12-2022 Telephone encounter Kenneth Lina [facility] [place] Start: 10-02-2022 End: 10-02-2022 Emergency department patient visit Jose Silverman Facility:[facility] Start: 10-02-2022 End: 10-02-2022 Emergency department patient visit PHYSICIAN SJ LERNER [facility] Work Phone: Start: 09-25-2022 End: 09-25-2022 ambulatory Viet Welch Other [facility] Other Start: 09-25-2022 Office outpatient visit 15 minutes Viet Welch [facility] Start: 09-06-2022 End: 09-06-2022 Emergency department patient visit Wil Chandra [facility] Start: 08-14-2022 End: 08-14-2022 Emergency department patient visit Bob Llanos [facility] Start: 07-11-2022 End: 07-11-2022 ambulatory ROSEANN CORRAL Facility:[facility] Start: 06-24-2022 End: 06-24-2022 ambulatory Viet Welch Other [facility] Other Start: 06-24-2022 Office outpatient visit 15 minutes Viet Welch [facility] Start: 01-11-2022 End: 01-11-[address] NIEVES LISTED REQUEST Facility:[facility] Start: 01-07-2022 End: 01-09-2022 Evaluation and management of inpatient DR RENATA GEORGES Facility:[facility] Start: 12-29-2021 End: 12-29-[address] JUVENAL THORPE Facility:[facility] Start: 12-19-2021 End: 12-19-[address] JUVENAL THORPE Facility:[facility] Start: 12-12-2021 End: 12-13-2021 [facility] Start: 12-12-2021 End: 12-12-2021 Subsequent hospital visit by physician SUSI De La Paz Start: 11-27-2021 End: 11-27-[address] SOFIA KABA Facility:[facility] Start: 11-13-2021 End: 11-13-2021 ambulatory Michael Oneil Other [facility] Other Start: 11-13-2021 Office outpatient visit 15 minutes Michael Oneil [facility] Start: 11-06-2021 End: 11-06-2021 ambulatory Kendra Witt Other [facility] Other Start: 11-06-2021 Office outpatient visit 25 minutes Kendra Witt [facility] Start: 10-23-2021 End: 10-24-[address] [...] in Urine by Culture Urine Culture [facility] Start: 02-07-2022 Influenza vaccination Flu vaccine (# 1) [facility] Start: 01-09-2022 End: 01-09-2022 Patient encounter procedure 01/09/2022 Routine Perinatology [facility] Start: 01-02-2022 End: 01-02-2022 Patient encounter procedure 01/02/2022 Routine Perinatology [facility] Start: 12-26-2021 End: 12-26-2021 Patient encounter procedure 12/26/2021 Routine Perinatology [facility] Start: 12-20-2021 End: 12-20-2021 Patient encounter procedure 12/20/2021 Routine Perinatology [facility] Start: 2021 DTaP/Tdap/Td vaccine (1 - Tdap) DTaP/Tdap/Td vaccine (1 - Tdap) [facility] Start: 2020 Hepatitis C screening Hepatitis C sc reen [facility] Start: 2018 Screening for Chlamy nazanin trachomatis Chlamydia screen [facility] Start: 2017 HIV screening HIV screen [facility] [employer] [employer] Start: 2014 Depression Monitoring Depression Mon itoring [facility] [employer] [employer] Start: 2013 HPV vaccine (1 - 2-d ose series) HPV vaccine (1 - 2-dose series) [facility] [employer] Start: 09-16-2007 COVID-19 Vaccine (1) COVID-19 Vaccin e (1) [facility] Start: 09-16-2003 Varicella vaccine (1 of 2 - 2-dose childhood series) Varicella vaccine (1 of 2 - 2-dose childhood series) [facility] Patient Education Depression, Adult ED [facility] Work Phone: Patient referral [facility] Work Phone: End: 12-12-2021 Sjogrens syndrome-A extractable nuclear antibody [facility] Work Phone: Comment on above: Once for 1 Occurrenc es starting 12/12/2021 until 12/12/2021 End: 12-12-2021 Sjogrens syndrome-B extractable nuclear antibody [facility] Work Phone: Comment on above: Once for 1 Occurrenc es starting 12/12/2021 until 12/12/2021 Immunizations Immunization Date Immunization Notes Care Provider Simona galarza NEGATED: Highlighted row has not occurred!11-05-2019 influenza, injectable, quadrivalent, contains preservative Kendra Witt Other [facility] Other NEGATED: Highlighted row has not occurred!04-10-2019 influenza virus vaccine, unspecified formulation Bob Llanos [facility] Payers Date Payer Category Payer Self-pay [id number] 2002 Unknown [id number] 2.16. [id number] 2002 Unknown [id number] 2.16.84 0.1.632907.3.579.2.593 2002 Unknown [id number] 2.16.84 0.1.812974.3.579.2.593 2002 Unknown [id number] 2.16.84 0.1.773686.3.579.2.593 2002 Unknown [id number] 2.16.84 0.1.733907.3.579.2.593 2002 Unknown [id number] 2.16.84 0.1.954465.3.579.2.593 2002 Unknown [id number] 2.16.84 0.1.356636.3.579.2.593 2002 Unknown [id number] 2.16.84 0.1.640302.3.579.2.593 2002 Unknown [id number] 2.16.84 0.1.753407.3.579.2.593 2002 Unknown [id number] 2.16.84 0.1.386277.3.579.2.593 2002 Unknown [id number] 2.16.84 0.1.894818.3.579.2.593 2002 Unknown [id number] 2.16.84 0.1.982020.3.579.2.593 2002 Unknown [id number] 2.16.8 40.1.357949.3.579.2.1286 2002 Unknown [id number] 2.16.8 40.1.617949.3.579.2.1286 2002 Unknown [id number] 2.16.8 40.1.928748.3.579.2.1286 2002 Unknown [id number] 2.16.8 40.1.498154.3.579.2.727 2002 Unknown [id number] 2.16.8 40.1.280537.3.579.2.727 2002 Unknown [id number] 2.16.8 40.1.857945.3.579.2.727 2002 Unknown [id number] 2.16.8 40.1.961087.3.579.2.727 2002 Unknown [id number] 2.16.8 40.1.812910.3.579.2.727 2002 Unknown [id number] 2.16.84 0.1.771638.3.579.2.1259 2002 Unknown [id number] 2.16.84 0.1.501972.3.579.2.9 2002 Unknown [id number] 2.16.84 0.1.055613.3.579.2.9 2002 Unknown [id number] 2.16.84 0.1.011951.3.579.2.9 2002 Unknown [id number] 2.16.84 0.1.258501.3.579.2.9 2002 Unknown [id number] 2.16.84 0.1.512380.3.579.2.9 2002 Unknown [id number] 2.16.84 0.1.719100.3.579.2.9 2002 Unknown [id number] 2.16.84 0.1.761700.3.579.2.1259 1959 Unknown [id number] 2.1 6.840.1.013712.19 1959 Unknown [id number] Unknown [id number] 2.16.8 40.1.384583.3.579.2.531 Social History Date Type Detail Facility Sex Assigned At [facility] Start: 11-28-2021 Tobacco smoking stat [facility] Never smoked tobacco [employer] Phone: Start: 11-28-2021 Tobacco use and exposure Smokeless tobacco non-user [employer] Phone: Start: 12-12-2021 Alcohol intake Ex-drinker (finding) [employer] Work Phone: Start: 12-12-2021 Tobacco Comment no longer vapes [employer] Phone: Start: 04-21-2021 [employer] Work Phone: Start: 2002 Sex Assigned At Not on file [employer] Work Phone: Tobacco Current vaping o r e-cigarette use Smokeless Tobacco Use:. Vaping [facility] Tobacco smoking status No Smokin g Status Entered [facility] Start: 10-02-2022 Tobacco smoking stat us RIIS Smoker (finding) [facility] Start: 2002 Sex Assigned At Female F [facility] Functional Status Date Assessment Result Facility 02-03-2024 Functional Status N/A [facility] 09-23-2023 Functional Status N/A [facility] 08-27-2023 Functional Status N/A [facility] 01-03-2023 Functional Status N/A [facility] 09-06-2022 Functional Status N/A [facility] 08-14-2022 Functional Status N/A [facility] Clinical Notes 11-06-2021 to 02-03-2024 Note Date & Type Note Facility 02-03-2024 Evaluation + Plan note Extrac ruby from: Title:ED Note Author:Duc Swanson PA-C te:02/03/24 Sore throat (J02.9: Acute ph aryngitis, unspecified) Viral URI (J06.9: Acute upper respiratory infection, unspecified) Orders: Group A Strep by PCR Rapid Strep w/rfx Diagnostic Tests Pending * Group A Strep by PCR 02/03/24 [facility] 08-27-2024 Hospital Discharge instructions Patient Education 02/03/2024 [...] medicines to help relieve symptoms, such as: Qvuj-mxg-rgodnnp cold medicines. Cough suppressants. Coughing is a [...] and other clear broths. General instructions Take myrx-uva-eqfnhhg and prescription medicines only as told by [...] and water are not available, use hand barrel plater. Avoid touching your mouth, face, eyes, or [...] provider. Document Revised: 12/26/2021 Document Reviewed: 12/26/2021 ASP64 Patient Education 2022 [employer]. Follow Up Care 02/03/2024 09:23:13 With:Juvenal THORPE Address: [address] , [place] [address]- Business (1) When:02/06/2024 11:12:27 With:SELAM HUNTER Address: [address] [place] [address] Business (1) When:02/06/2024 11:12:21 [facility] 08-27-2024 NoteED Patient Education Note Infectious Disease [...] to help relieve symptoms, such as: ? Wibb-joh-kkraizj cold medicines. ? Cough suppressants. Coughing is [...] other clear broths. General instructions ? Take wngb-esg-zvkocsr and prescription medicines only as told by [...] soap and water are not available,use hand barrel plater. ? Avoid touching your mouth, face, eyes, [...] Mood. These symptoms m (more content not included)...[facility] 09-23-2023 Hospital Discharge instructions Patient Education 09/23/2023 [...] provider. Document Revised: 02/19/2021 Document Reviewed: 02/19/2021 ASP64 Patient Education 2022 [employer]. Follow Up Care 09/23/2023 09:11:45 With:Juvenal THORPE Address: [address] [place] [address] Business (1) When:09/26/2023 11:44:07 [facility]03-20-2024 Hospital Discharge instructions Patient Education 08/27/2023 12:34:16 [...] provider. Document Revised: 01/09/2022 Document Reviewed: 01/09/2022 ASP64 Patient Education 2022 [employer]. 08/27/2023 12:34:16 Urinary Tract Infection, Adult, Zbyz-kf-Qwbq Urinary Tract Infection, Adult A urinary tract [...] Follow these instructions at home: Medicines Take ksrs-vxc-nzsahik and prescription medicines only as told by [...] provider. Document Revised: 01/05/2021 Document Reviewed: 01/05/2021 ASP64 Patient Education 2022 [employer]. 08/27/2023 12:34:16 Subchorionic Hematoma Subchorionic Hematoma A [...] provider. Document Revised: 02/19/2021 Document Reviewed: 02/19/2021 ASP64 Patient Education 2022 [facility]. Follow Up Care 08/27/2023 09:39:16 With:Juvenal THORPE Address: [address] [place] [address] Business (1) When:08/30/2023 12:05:10 With:SELAM HUNTER Address: [facility] [place] [address] Business (1) When:Within 3 Day(s) [facility]03-20-2024 Evaluation + Plan noteExtracted from: Title:ED Note [...] day(s), # 28 cap(s), Refills(s) 0, Pharmacy: [id number], 170, cm, 08/27/23 9:49:00 EDT, Height/Length Dosing, 78.7, kg, 08/27/23 9:49:00 EDT, Weight Dosing ABO/Rh Basic Metabolic Panel Beta hCG Quantitative CBC w/ Auto Diff eGFR Extra Blue Tube Extra SST Tube UA with Cult Rflx Urine Culture US 1st Trimester US Transvaginal Diagnostic Tests Pending * Urine Culture 08/27/23 [facility]07-29-2023 Hospital Discharge instructions Patient Education 01/04/2023 00:13:01 Pharyngitis, Jvnn-dd-Tgud Pharyngitis Pharyngitis is a sore throat (pharynx). [...] Follow these instructions at home: Medicines Take exrr-syh-ksbrwfa and prescription medicines only as told by [...] and water are not available, use hand barrel plater. Do not touch your eyes, nose, or [...] provider. Document Revised: 08/22/2021 Document Reviewed: 08/22/2021 ASP64 Patient Education 2022 [employer] Follow Up Care 01/03/2023 22:32:55 With:Thony Carl Address: [address] [place] [address] [place] [address] [facility] (1) When:01/06/2023 Comments:Follow-up with your primary care provider in 3 to 5 days. If symptoms worsen, do not improve, or new symptoms arise please report back to emergency department for further evaluation. [facility]07-28-2023 Evaluation + Plan noteExtracted from: Title:ED Note [...] q12hr, # 20 cap(s), Refills(s) 0, Pharmacy: [facility], 170, cm, 01/03/23 22:44:00 [...] Diff eGFR Hepatic Function Panel Lipase Level [facility]04-19-2023 Evaluation note* Encounter Date Diagnosis Assessment Notes [...] of symptoms occur by end of treatment. [facility] Other 03-31-2023 Hospital Discharge instructions Patient Education [...] Follow these instructions at home: Medicines Take inpr-cpj-kiooaru and prescription medicines only as told by [...] important. Where to find more information [employer]: www.acog.org [place] [...] Document Reviewed: 07/01/2017 Elsevier Patient Education 2019 [employer] Follow Up Care 09/06/2022 10:42:16 With:Juvenal THORPE Address: [address] [place] [address]- Business (1) When:09/09/2022 13:46:05 [facility]03-09-2023 Hospital Discharge instructions Patient Education 08/14/2022 22:12:46 Abdominal Pain During , Eevq-nb-Pfdo Abdominal Pain During Belly (abdominal) pain is [...] keep your pee (urine) pale yellow. Take ebnh-ewl-wikzhrk and prescription medicines only as told by [...] 05/14/2010 Document Revised: 09/13/2019 Document Reviewed: 08/28/2017 ASP64 Patient Education 2020 [employer]. 08/14/2022 22:12:46 Abdominal Pain, Adult, Uqmy-zq-Gmik Abdominal Pain, Adult Many things can cause belly (abdominal) pain. Most times, belly pain is not dangerous. Many cases of belly pain can be watched and treated at home. Sometimes, though, belly pain is serious. Your doctor will try to find the cause of your belly pain. Follow these instructions at home: Medicines Take rfnj-gbi-tnzjwep and prescription medicines only as told by [...] your belly pain for any changes. Take reeu-wue-vjygskq and prescription medicines only as told by [...] 11/11/2008 Document Revised: 10/04/2019 Document Reviewed: 10/04/2019 ASP64 Patient Education 2020 [employer]. Follow Up Care 08/14/2022 18:41:38 With:Juvenal THORPE Address: [address] , [place] [address]- Business (1) When:08/17/2022 Comments:Follow-up with Dr. Thorpe for further evaluation of your . With:Juventino Carbajal Address: [address] [place] [phone]- When:08/17/2022 Comments:Follow-up with your primary care provider in 3 to 5 days. If symptoms worsen, do not improve, or new symptoms arise please report back to emergency department for further evaluation. [facility]01-16-2023 Evaluation note* Encounter Date Diagnosis Assessment Notes [...] return precautions. Jun, Cough (ICD-10 - R05.9) [facility] Other 06-07-2022 Evaluation note* Encounter Date Diagnosis [...] Pt understood and agreed to tx plan. [facility] Other [id number] Evaluation note* Encounter Date Diagnosis Assessment Notes [...] condition October, Sore throat (ICD-10 - J02.9) [facility] Other Evaluation + Plan note No data available for this section [facility] note[facility] assessment information available [facility] Work Phone: Evaluation noteNo [facility]Kind[facility] Other History general Narrative - Reported* Type Description Date Medical History fx lt elbow at age 7 Surgical History surgical repair of left elbow f racture at age 7 Hospitalization History see surgical hx [facility] Other Progress note No data available for this section [facility] Summary Purpose Family History No Family History [...] section and content) DATE CREATED AUTHOR 01/05/2022 [facility] DATE CREATED AUTHOR AUTHOR'S ORGANIZ ATION 07/15/2022 [facility] DATE CREATED AUTHOR AUTHOR'S ORGANIZ ATION 10/10/2022 [facility] DATE CREATED AUTHOR AUTHOR'S ORGANIZ ATION 12/26/2023 [facility] DATE CREATED AUTHOR AUTHOR'S ORGANIZ ATION 02/05/2024 [facility] DATE CREATED AUTHOR AUTHOR'S ORGANIZ ATION 02/06/2024 [facility] DATE CREATED AUTHOR AUTHOR'S ORGANIZ ATION 03/03/2024 [facility] [employer] Care Teams (unrecognized sec tion and content) Personnel Name: ELSA VELEZ SELAM J Address: Address: [address] [place] [address] Team Status: Active Member Role Status Dates [...] BE BASED ON THE PRIMARY CLINICAL RECORDS. [facility], [facility]. provides no warranty or guarantee of the accuracy or completeness of information in this document.
[2024-03-11 16:16] VITALS: BP 112/63; PULSE 97
== END 2024-03-11 16:50 | disposition home or self-care (01) ==
LOC: FBCO 07:06 → FBC 16:12
PROVIDERS: Visit Provider Obstetrics & Gynecology
DX: O43.893 Other placental disorders, third trimester (principal); Z3A.35 35 weeks gestation of pregnancy
CPT/HCPCS: 59025

== ENCOUNTER 2024-03-15 07:20 | Outpatient (OUT) | payer OTHER, SELFPAY ==
--- NOTE | 2024-03-15 | US_ITS ---
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 non-reactive stress testing was performed by nursing staff in the birthing center. FINDINGS: BREATHING MOVEMENTS: 2 GROSS BODY MOVEMENTS: 2 TONE: 2 QUALITATIVE AMNIOTIC FLUID VOLUME: 2 PRESENTATION: Cephalic HEART RATE: 139 bpm AMNIOTIC FLUID VOLUME: 0.2 cm GESTATIONAL AGE: Early 5 weeks 4 days US/US OB BPP w non-stress IMPRESSION: Total biophysical profile score: 8/8 Electronically authenticated by: SOFIA KABA Date: 03/15/2024 14:47
--- NOTE | 2024-03-15 | US_ITS ---
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 TECHNIQUE: Duplex Doppler evaluation of the umbilical arteries. FINDINGS: Umbilical arteries: 2 position: Cephalic presentation, longitudinal lie Amniotic fluid: 9.2 cm, largest fluid pocket 4.0 cm Heart rate: 139 bpm Proximal umbilical artery: 71/27 cm/s. Resistive index 0.62. Ratio 2.6. Mid umbilical artery: 58/26 cm/s. Resistive index 0.55. Ratio 2.2 Distal umbilical artery: 72/29 cm/s. Resistive index 0.6. Ratio 2.5 Forward flow identified throughout diastole Clinical age: 35 weeks 4 days Clinical NOY: 04/15/2024 US/US OB umbilical artery IMPRESSION: Normal exam. Class 0 Umbilical Artery: Class 0 = Normal umbilical artery blood velocity Class I = increased RI or PI, but still forward flow in diastole Class II = Absent end diastolic flow (AEDF) Class III = Reversal of end diastolic flow (REDF) Resistive Index (RI)<1 Systolic/Diastolic ratio (S:D): An S:D ratio of 2-3 after 34 wks is normal Systolic/Diastolic ratio (S:D): Age 16: 3.01 for the 10th percentile, 4.25 for the 50th percentile, 6.07 for the 90th percentile Age 20: 3.16 for the 10th percentile, 4.04 for the 50th percentile, 5.24 for the 90th percentile Age 24: 2.70 for the 10th percentile, 3.50 for the 50th percentile, 4.75 for the 90th percentile Age 28: 2.41 for the 10th percentile, 3.02 for the 50th percentile, 3.97 for the 90th percentile Age 30: 2.43 for the 10th percentile, 3.04 for the 50th percentile, 3.80 for the 90th percentile Age 32: 2.27 for the 10th percentile, 2.73 for the 50th percentile, 3.57 for the 90th percentile Age 34: 2.08 for the 10th percentile, 2.52 for the 50th percentile, 3.41 for the 90th percentile Age 36: 1.96 for the 10th percentile, 2.35 for the 50th percentile, 3.15 for the 90th percentile Age 38: 1.89 for the 10th percentile, 2.24 for the 50th percentile, 3.10 for the 90th percentile Age 40: 1.88 for the 10th percentile, 2.22 for the 50th percentile, 2.68 for the 90th percentile Age 41: 1.93 for the 10th percentile, 2.21 for the 50th percentile, 2.55 for the 90th percentile Age 42: 1.91 for the 10th percentile, 2.51 for the 50th percentile, 3.21 for the 90th percentile Uteroplacental Artery: Resistive Index (RI): Normal=<0.55 High Resistance=Bilateral notches (after 26 wks) and RI>0.55. Unilateral notches (after 26 wks) and RI>0.65 Systolic/Diastolic ratio (S:D) = 2-3 is normal after 32 weeks. Electronically authenticated by: SOFIA KABA Date: 03/15/2024 15:02
--- OUTSIDE RECORDS SUMMARY | 2024-03-15 07:25 | XMS_ITS | CCD ---
Author Organization [facility] Inform ion [facility] Care Team Providers Care Business Systems Manager Name Role Phone Kendra Witt Unavailable Michael [...] Unavailable ZIEBER, DR MARS Mccarthy Consulting Unavailable HESSEL, DR SOFIA Hull Consulting Unavailable REQUEST, NONE LISTED Primary Care Unavaila ble MIRI, DR NEAL Attending Unavailable MIRI, DR NEAL Admitting Unavailable MIRI, DR NEAL Consulting Unavailable KARASIK, DR YANEZ Consulting Unavailable REQUEST, NONE LISTED Primary Care Unavaila ble MIRI, DR ENAL Attending Unavailable MIRI, DR NEAL Admitting Unavailable MIRI, DR NEAL Consulting Unavailable AGUBOSIM, ZAN Consulting Unavailable MIRI, DR NEAL Procedure Practitioner Unavailab ricardo KABA, DR SOFIA Hull Consulting Unavailable EVER, NONE LISTED Primary Care Unavaila ble MIRI, DR NEAL Attending Unavailable IMRI, DR NEAL Admitting Unavailable MIRI, DR NEAL Consulting Unavailable Viet Welch Unavailable NONE, XXXX Primary Care Physician Unavailab le NO FAMILY, PHYSICIAN Primary Care Provider Unava MD Jose Moody Emergency Provider [phone] Jose Silverman Attending Unavailable Jose Silverman Admitting Unavailable NO FAMILY, PHYSICIAN Primary Care Unavailable Kenneth Mills Unavailable SELAM HUNTER Primary Care Physician [phone] JUVENAL THORPE Referring Unavailable JUANITO PABLO Attending Unavailable JESSICA ALEJO Referring Unavailable JUVENAL THORPE Referring Unavailable SELAM HUNTER Primary Care Unavailable Siva Schulte Attending Unavailable SELAM HNUTER Primary Care Unavailable Wil Chandra Attending Unavailable [...] Medication Allergies] Propensity to adverse reactions (disorder) [facility] Repository Medications Current Medications Medication Drug [...] day(s), # 28 cap(s), Refills(s) 0, Pharmacy: [facility], 170, cm, 08/27/23 9:49:00 EDT, Height/Length Dosing, 78.7, kg, 08/27/23 9:49:00 EDT, Weight Dosing Start Date: 08/27/23 Stop Date: 09/03/23 Status: Ordered Start: 01-03-2023 take 1 capsule by [facility] every twelve hours Keflex 500 mg Cap 500 mg = 1 cap(s), Oral, q12hr, # 20 cap(s), Refills(s) 0, Pharmacy: [facility], 170, cm, 01/03/23 22:44:00 EDT, Height/Length Dosing, 75.3, kg, 01/03/23 22:44:00 EDT, Weight Dosing Start Date: 01/03/23 Status: Ordered Citalopram (2 sources) Serotonin Reuptake Inhibitor Citalopram Hydrobromide Active dexamethasone 1 mg/ml / neomycin 3.5 mg/ml / polymyxin b 64411 unt/ml ophthalmic suspension (2 sources) Aminoglycoside Antibacterial, Polymyxin-class Antibacterial, Corticosteroid Start: 09-26-19 take 1 drop(s) into the eye(s) four times daily Maxitrol 3.5-60017-7.1 1 drop into affected eye Ophthalmic Four [...] 3 hrs for 2 days Jun, Active Josephine (No Known Home Meds) (1 source) Start: 06-26-2021 Josephine (No Known Home Meds) Active June 26, [...] Nausea/Vomiting, # 12 tab(s), Refills(s) 0, Pharmacy: [facility], 170, cm, 01/03/23 22:44:00 EDT, Height/Length Dosing, 75.3, kg, 01/03/23 22:44:00 EDT, Weight Dosing Start Date: 01/03/23 Status: Ordered Start: 06-09-2019 take 1 tablet by faby th three times daily Zofran ODT 4 mg Tab-Dis 4 mg = 1 tab(s), Oral, TID, # 15 tab(s), Refills(s) 0, Pharmacy: [facility] Start Date: 06/09/19 Status: [...] take 450 mg by mouth twice daily [place] Carbonate Discontinued 450 MG PO Twice daily [...] Grp A Strp Intrl Ctrl Pass Normal [facility] Comment on above: Order Comment: Order Added on by Discern Rule. Performed By: #### 1 [id number] #### [facility] [address] [place] [address] S. pyogenes DNA ALFREDO+probe Ql (Throat) Negative Normal [facility] Comment on above: Order Comment: Order Added on by Discern Rule. Result Comment: Test ing performed using DNA amplification. Performed By: #### 1 [id number] #### [facility] [address] [place] [address] ED Clinical Summaryon 2023 ED Clinical Summary ED Clinical Summary [address] [address] ED Clinical Summary Person Information Name: KAILYN ACKERMAN Heena/[facility] Age: 23 Years : 2000 Sex: Female Language: Kosovan PCP: SELAM HUNTER CNP Marital Status: Single Phone: [phone] Visit Id: Visit Reason: Headache; Body aches; [...] 02/03/2024 11:17:23 02/03/2024 11:17:23 02/03/2024 11:17:23 ADDRESS: [address] [place] [phone] PHYS DOC NOTES: MEDICAL INFORMATION: Prescriptions Given: [...] Adult Follow up: With: Address: [facility] [address] [place] [address] [place] [address] Business (1) In 3 days 02/06/2024 With: Address: When: [place] [address] Business (1) In 3 days 02/06/2024 DIAGNOSIS: Sore throat; Viral URI Normal [facility] ED Note-Physicianon 02-03-20 ED Note-Physician ED [...] URI and will continue to follow-up with FINISHING MACHINE OPERATOR for further evaluation and management. We [...] days 02/06/2024 (more content not included)... Normal [facility] Comment on above: Result Comment: Elec tronically Signed By: Duc Swanson PA-C\.br\Date and Time Signed: 02/03/24 13:23 EDT\.br\Electronically Co-Signed By: Siva Schulte DO\.br\Date and Time Co-Signed: 02/03/24 14:44 EDT ED Patient Summaryon 024 ED Patient Summary ED Patient Summary [place] [id number] Patient Discharge Instructions Person Information Name: GARCÍA ACKERMANNZIClement Gordon Age: 23 Years Arrival Date: 02/03/2024 09:21:41 Discharge Diagnosis: Sore throat; Viral URI Primary Care Physician: SELAM HUNTER CNP Provider Information Primary Provider: Siva Schulte DO Advanced Iron Worker Foreman:Duc Sawnson PA-C The exam and treatment you received in the Emergency Department were for an urgent problem and are not intended as complete care. It is important that you follow up with a doctor, nurse practitioner, or physician?s music assistant for ongoing care. If your symptoms [...] Follow-up Instructions: With: Address: When: Juvenal THORPE [facility], [address] [place] [address] [place] [address] Business (1) In 3 days 02/06/2024 With: Address: When: [place] [address] Business (1) In 3 days 02/06/2024 In the event that this physician does not participate in your insurance network, please consult with your insurance company to find a nearby participating provider. Patient Education Materials: Upper Respiratory Infection, Adult A MESSAGE TO ALL PATIENTS REGARDING OPIOIDS PRESCRIPTION OPIOIDS: WHAT YOU NEED TO KNOW Prescription opioids can be used to help relieve hjcnbgri-iv-dqvfjl pain and are often prescribed following a [...] of op (more content not included)... Normal [facility] MICRO OTHER TESTSOrdered By: Nita Delgadillo on 02-03-2024 S. pyogenes Ag IA.rapid Ql (Throat) Negative (02/03/24 11:07 AM) Normal Negative [facility] Man Sero MICRO OTHER TESTSOrdered By: Asuncion Goncalves on 02-03-2024 Rapid COV Int NEG Ctl Pass (02/03/24 9:30 AM) Normal [facility] Man Sero Rapid COV Int POS Ctl Pass (02/03/24 9:30 AM) Normal [facility] Sero SARS-CoV+SARS-CoV-2 (COVID-19) Ag IA.rapid Ql (Resp) Not Detected 1 (02/03/24 9:30 AM) Normal Not Detected [facility] Man Sero Comment on above: Interpretive Data: Gato multani Cookisto Veritor System for Rapid Detection of SARS-CoV-2 [...] COV Int NEG Ctl Pass Normal [facility] Comment on above: Performed By: #### 2 [id number] #### [facility] [address] [place] [address] Rapid COV Int POS Ctl Pass Normal [facility] Comment on above: Performed By: #### 2 [id number] #### [facility] [address] [place] [address] SARS-CoV+SARS-CoV-2 (COVID-19) Ag IA.rapid Ql (Resp) Not detected Normal Not Detected [facility] Comment on above: Result Comment: The HackMyPicitor? System for Rapid Detection of SARS-CoV-2 is [...] or revoked sooner. Performed By: #### 2 [id number] #### [facility] [address] [place] [address] Rapid Strep w/rfxon 02-03-20 24 S. pyogenes Ag IA.rapid Ql (Throat) Negative Normal Negative [facility] Comment on above: Performed By: #### 2 [id number] #### [facility] [address] [place] [address] ED Note-Physicianon 09-26-19 24 ED Note-Physician Basic [...] than 90,000. Ultrasound was obtained discussed with electromechanical assembly technician. Intrauterine consistent with stated gestational age. Stable heart rate. Patient continues to demonstrate subchorionic hematoma. Also left-sided ovarian cyst similar to previous. Results were discussed with the patient. She is discharged home to continue pelvic rest and follow-up with FINISHING MACHINE OPERATOR. Patient was encouraged to return to [...] Juvenal THORPE In 3 days 09/26/2023 EDT [facility] [address] [facility] [place] [address]- Business (1) Additional Instructions: Patient Education Subchorionic [...] made to ensure accuracy, however, inadvertently computerized gauge maker apprentice mistakes may be present. Appropriate healthcare PPE [...] Yes., 04/10/2019 Lab Results Beta hCG Qnt: 56502 mIU/mL High (09/23/23 09:28:00) Diagnostic Results No qualifying data available. Normal [facility] Comment on above: Result Comment: Elec tronically Signed By: Mandie CHUNG, Venkat\.br\Date and Time Signed: 09/23/23 11:45 EDT\.br\Electronically Co-Signed By: Wil Chandra DO\.br\Date and Time Co-Signed: 09/26/23 07:37 EDT [facility] Quanton 09-23-2023 [place] [address] m[IU]/mL High 1-3 [facility] Comment on above: Result Comment: 'F N ON < 1 - 3' ' 0.2 - 1 WEEK = 5 TO 50' ' 1 - 2 WEEKS = 50 - 500' ' 2 - 3 WEEKS = 100 - 5000' ' 3 - 4 WEEKS = 500 - 00130' ' 4 - 5 WEEKS = 1000 - 30519' ' 5 - 6 WEEKS = 79146 - 661288' ' 6 - 8 WEEKS = 74902 - 567732' ' 8 - 12 WEEKS = 77357 - 621117' Performed By: #### 2 [id number] ####[facility] [address] [place] [address] CHEMISTRYOrdered By: SYSTEM SYSTEM on 09-23-2023 [place] [address] m[IU]/mL High 1 - 3 mIU/mL [facility] Comment on above: Result Comment: 'F N ON < 1 - 3' ' 0.2 - 1 WEEK = 5 TO 50' ' 1 - 2 WEEKS = 50 - 500' ' 2 - 3 WEEKS = 100 - 5000' ' 3 - 4 WEEKS = 500 - 22403' ' 4 - 5 WEEKS = 1000 - 59531' ' 5 - 6 WEEKS = 59084 - 456572' ' 6 - 8 WEEKS = 10187 - 300261' ' 8 - 12 WEEKS = 80634 - 692564' Consent for Treatmenton 09-07 Consent for Treatment [id number]#1.00TIFF Normal [facility] Discharge Instructionson Discharge Instructions [id number]#1.00TIFF Normal [facility] ED Clinical Summaryon 2023 ED Clinical Summary [address] [address] ED Clinical Summary Person Information Name: KAILYN ACKERMAN Heena/[facility] Age: 23 Years : 2000 Sex: Female Language: Kosovan PCP: NONE, XXXX Marital Status: Single Phone: [phone] MRN: Visit Id: Visit Reason: Back pain; [...] 09/23/2023 11:52:16 09/23/2023 11:52:16 09/23/2023 11:52:16 ADDRESS: [address] [place] [phone] PHYS DOC NOTES: MEDICAL INFORMATION: Prescriptions Given: [...] Follow up: With: Address: When: Juvenal THORPE [facility], [address] [place] [address] [place] [address] Business (1) In 3 days 09/26/2023 DIAGNOSIS: Other antepartum hemorrhage, unspecified trimester; Subchorionic bleed; Vaginal bleeding in Normal [facility] ED Patient Education Noteon 09-23-2023 ED [...] provider. Document Revised: 02/19/2021 Document Reviewed: 02/19/2021 [employer] Patient Education ? 2022 [employer]. Normal [facility] ED Patient Summaryon 024 ED Patient Summary [place] [id number] Patient Discharge Instructions Person Information Name: KAILYN ACKERMAN Age: 23 Years Arrival Date: 09/23/2023 09:10:07 Discharge Diagnosis: Other antepartum hemorrhage, unspecified trimester; Subchorionic bleed; Vaginal bleeding in Primary Care Physician: NONE, XXXX Provider Information Primary Provider: Wli Chandra DO Advanced Iron Worker Foreman:Venkat Leal PA-C The exam and treatment you received in the Emergency Department were for an urgent problem and are not intended as complete care. It is important that you follow up with a doctor, nurse practitioner, or physician?s music assistant for ongoing care. If your symptoms [...] Follow-up Instructions: With: Address: When: Juvenal THORPE [facility], [address] [place] [address] [place] [address] Business (1) In 3 days 09/26/2023 In the event that this physician does not participate in your insurance network, please consult with your insurance company to find a nearby participating provider. Patient Education Materials: Subchorionic Hematoma A MESSAGE TO ALL PATIENTS REGARDING OPIOIDS PRESCRIPTION OPIOIDS: WHAT YOU NEED TO KNOW Prescription opioids can be used to help relieve ycgqpjaa-xw-zvksfa pain and are often prescribed following a [...] health care p (more content not included)... [facility] Prescriptions/Work Noteson 0 09-23-2023 Prescriptions/Work Notes [id number]#1.00TIFF [facility] [place] 1st Trimesteron 09-23-2023 1st Trimester [...] least 66% of the gestational sac circumference. [place] Rump Length: 3.2 cm, which corresponds Composite [...] Size = Dates Uterus Position Anteverted Normal [facility] C Urineon 08-29-2023 Bacteria identified Cx [...] Locations R1: This test was performed at: [facility], [address] [place] [address], [address] , , Normal [facility] Comment on above: Performed By: #### 4 [id number] ####[address] [address] ABO/Rhon 08-27-2023 ABO/Rh Positive Invalid Interpretation Code [facility] Comment on above: Performed By: #### 2 [id number] ####[facility] [address] [place] [address] BLOOD BANKOrdered By: Liza Xavier on 08-27-2023 ABO/Rh Interp Positive Invalid Interpretation Code [facility] BB Subsection BMPon 08-27-2023 Anion gap [Moles/Vol] 11 mmol/L Normal 6-16 [facility] Comment on above: Performed By: #### 1 [id number], 7458911, [id number] ####[facility] [address] [place] [address] Calcium [Mass/Vol] 9.3 mg/dL Normal 8.9-11.1 [facility] Comment on above: Performed By: #### 1 [id number], 1333640, 6184816 ####[facility] [address] [place] [address] Chloride [Moles/Vol] 104 mmol/L Normal 101-111 [facility] Comment on above: Performed By: #### 1 [id number], 2909123, 9987704 ####[facility] [address] [place] [address] CO2 [Moles/Vol] 24 mmol/L Normal 21-31 [facility] Comment on above: Performed By: #### 1 [id number], 1043387, 1880909 ####[facility] [address] [place] [address] Creatinine [Mass/Vol] 0.6 mg/dL Normal 0.5-1.3 [facility] Comment on above: Performed By: #### 1 [id number], 3109001, 5940656 ####[facility] [address] [place] [address] Glucose [Mass/Vol] 87 mg/dL Normal 55-199 [facility] Comment on above: Performed By: #### 1 8635655, 6192298, 9431783 ####[facility] [address] [place] [address] Potassium [Moles/Vol] 3.7 mmol/L Normal 3.5-5.3 [facility] Comment on above: Performed By: #### 1 2624859, 3248805, 6024221 ####[facility] [address] [place] [address] Sodium [Moles/Vol] 135 mmol/L Normal 135-145 [facility] Comment on above: Performed By: #### 1 3183385, 9331401, 7981688 ####[facility] [address] [place] [address] Urea nitrogen [Mass/Vol] 8 mg/dL Normal 5-21 [facility] Comment on above: Performed By: #### 1 [id number], 2433546, 7574531 ####[facility] [address] [place] [address] Urea nitrogen/Creatinine [Mass ratio] 13 No Units Normal 10-20 [facility] Comment on above: Performed By: #### 1 [id number], 8203185, 7982686 ####[address] [address] [facility] Quanton 08-27-2023 [place] [address] m[IU]/mL High 1-3 [facility] Comment on above: Result Comment: 'F N ON < 1 - 3' ' 0.2 - 1 WEEK = 5 TO 50' ' 1 - 2 WEEKS = 50 - 500' ' 2 - 3 WEEKS = 100 - 5000' ' 3 - 4 WEEKS = 500 - 02480' ' 4 - 5 WEEKS = 1000 - 05340' ' 5 - 6 WEEKS = 45994 - 968754' ' 6 - 8 WEEKS = 82088 - 111510' ' 8 - 12 WEEKS = 61248 - 168327' Performed By: #### 2 [id number] ####[facility] [address] [place] [address] CBC w/ Auto Diffon 4 Basophils/100 WBC (Bld) 0.6 % Normal 0.0-2.0 [facility] Comment on above: Performed By: #### 1 0671811, 9557494, 3576602 ####[facility] [address] [place] [address] Basophils/Leukocytes Auto (Bld) [Pure # fraction] 0.0 E9/L Normal 0.0-0.2 [facility] Comment on above: Performed By: #### 1 2537325, 8124259, 4556447 ####[address] [address] Eosinophils (Bld) [#/Vol] 0.1 E9/L Normal 0.0-0.5 [facility] Comment on above: Performed By: #### 1 6799442, 6195443, 5375550 ####[address] [address] Eosinophils/100 WBC (Bld) 2.0 % Normal 0.0-8.0 [facility] Comment on above: Performed By: #### 1 0726930, 1671969, 8011073 ####[address] [address] Erythrocyte distribution width (RBC) [Ratio] 15.0 % High 10.9-14.2 [facility] Comment on above: Performed By: #### 1 6467268, 5576912, 6891566 ####[address] [address] Hematocrit (Bld) [Volume fraction] 37.4 % Normal 34.0-46.0 [facility] Comment on above: Performed By: #### 1 2478012, 1705640, 7804898 ####[address] [address] Hemoglobin (Bld) [Mass/Vol] 12.7 g/dL Normal 12.0-16.0 [facility] Comment on above: Performed By: #### 1 7872831, 0968782, 0767564 ####[address] [address] Lymphocytes (Bld) [#/Vol] 2.0 E9/L Normal 1.0-4.0 [facility] Comment on above: Performed By: #### 1 8241270, 6755632, 0182920 ####[address] [address] Lymphocytes/100 WBC (Bld) 28.1 % Normal 14.0-50.0 [facility] Comment on above: Performed By: #### 1 4038757, 7081319, 3847689 ####[address] [address] MCH (RBC) [Entitic mass] 28.4 pg Normal 27.0-34.0 [facility] Comment on above: Performed By: #### 1 4625011, 0623106, 3818699 ####[address] [address] MCHC (RBC) [Mass/Vol] 33.8 g/dL Normal 31.4-36.0 [facility] Comment on above: Performed By: #### 1 2973835, 5514650, 4578980 ####[address] [address] MCV (RBC) [Entitic vol] 84.0 fL Normal 80.0-100.0 [facility] Comment on above: Performed By: #### 1 0504575, 9692779, 1487571 ####[place] [address] Monocytes (Bld) [#/Vol] 0.5 E9/L Normal 0.2-1.0 [facility] Comment on above: Performed By: #### 1 4308987, 2887886, 1662335 ####[address] [address] Neutrophils (Bld) [#/Vol] 4.5 E9/L Normal 2.0-7.5 [facility] Comment on above: Performed By: #### 1 6394747, 1427191, 4046524 ####[address] [address] Neutrophils/100 WBC (Bld) 61.9 % Normal 36.0-75.0 [facility] Comment on above: Performed By: #### 1 4201280, 5481654, 9830777 ####[place] [address] [place] [address] Platelet mean volume (Bld) [Entitic vol] 7.9 fL Normal 6.4-10.8 [facility] Comment on above: Performed By: #### 1 6612473, 8678038, 3032221 ####[address] [address] Platelets (Bld) [#/Vol] 252.0 E9/L Normal 150.0-500.0 [facility] Comment on above: Performed By: #### 1 7994170, 9418826, 8112563 ####[place] [address] [place] [address] RBC (Bld) [#/Vol] 4.5 E12/L Normal 4.3-5.9 [facility] Comment on above: Performed By: #### 1 0126922, 4282549, 4170043 ####[address] [address] WBC corrected for nucl RBC Auto (Bld) [#/Vol] 7.2 E9/L Normal 4.0-11.0 [facility] Comment on above: Performed By: #### 1 1299659, 3907393, 1999178 ####[facility] [address] [place] [address] CHEMISTRYOrdered By: SYSTEM SYSTEM on 08-27-2023 Anion [...] 199 mg/[place] [address] m[IU]/mL High 1 - 3 mIU/mL [facility] Comment on above: Result Comment: 'F N ON < 1 - 3' ' 0.2 - 1 WEEK = 5 TO 50' ' 1 - 2 WEEKS = 50 - 500' ' 2 - 3 WEEKS = 100 - 5000' ' 3 - 4 WEEKS = 500 - 72058' ' 4 - 5 WEEKS = 1000 - 06932' ' 5 - 6 WEEKS = 27[address] - 625986' ' 6 - 8 WEEKS = [address] - 094003' ' 8 - 12 WEEKS = [address] - 692474' Potassium [Moles/Vol] 3.7 mmol/L Normal 3.5 - 5.3 mmol/L [facility] Sodium [Moles/Vol] 135 mmol/L Normal 135 - 145 mmol/L [facility] Urea nitrogen [Mass/Vol] 8 mg/dL Normal 5 - 21 mg/d L [facility] Urea nitrogen/Creatinine [Mass ratio] 13 mg/mg Normal 10 - 20 [facility] Consent for Treatmenton 08-08 Consent for Treatment [id number] Normal [facility] Discharge Instructionson Discharge Instructions [id number] Normal [facility] ED Clinical Summaryon 2023 ED Clinical Summary [place] [id number] ED Clinical Summary Person Information Name: KAILYN ACKERMAN Heena/[facility] Age: 22 Years : 2000 Sex: Female Language: Kosovan PCP: SELAM HUNTER CNP Marital Status: Single Phone: [phone] MRN: Visit Id: Visit Reason: Vaginal bleeding [...] 08/27/2023 12:34:16 08/27/2023 12:34:16 08/27/2023 12:34:16 ADDRESS: [address] [place] [phone] PHYS DOC NOTES: MEDICAL INFORMATION: Prescriptions Given: Medications to Continue Taking That Have Changed [facility], [address] [place], [place] [id number], [phone] START: cephalexin (Keflex 500 mg Cap) 1 [...] Urinary Tract Infection; Urinary Tract Infection, Adult, Kxfj-lj-Dzsu; Subchorionic Hematoma Follow up: With: Address: When: Juvenal THORPE [facility], [address] [place] [address] [place], [place] [phone] Business (1) In 3 days 08/30/2023 With: Address: When: SELAM HUNTER [address] [place] [address] Business (1) In 3 days DIAGNOSIS: Other antepartum hemorrhage, unspecified trimester; Subchorionic bleed; UTI (urinary tract infection) during ; Vaginal bleeding in Normal [facility] ED Note-Physicianon 08-27-19 ED Note-Physician Basic [...] Complexity of Problems Differential Diagnosis: [] [facility] Data External documents reviewed: [] My [...] day(s), # 28 cap(s), Refills(s) 0, Pharmacy: [facility], 170, cm, 08/27/23 9:49:00 EDT, Height/Length [...] Juvenal THORPE In 3 days 08/30/2023 EDT [facility] [address] [facility] , [place] [address]- Business (1) Additional Instructions: SELAM HUNTER In 3 days [address] [place] [address]- Business (1) Additional Instructions: Patient Education and Urinary Tract Infection Urinary Tract Infection, Adult, Jgxe-jd-Dfor Subchorionic Hematoma Attestation Patient seen and evaluated by the physician music assistant. Attending physician was present in the emergency department and s (more content not included)... Normal [facility] Comment on above: Result Comment: Elec [...] provider. Document Revised: 01/09/2022 Document Reviewed: 01/09/2022 [employer] Patient Education ? 2022 [employer]. Urinary Tract Infection, Adult A urinary tract [...] swelling (inflammation) (more content not included)... Normal [facility] ED Patient Summaryon 024 ED Patient Summary [place] [id number] Patient Discharge Instructions Person Information Name: KAILYN ACKERMAN Age: 22 Years Arrival Date: 08/27/2023 09:37:12 Discharge Diagnosis: Other antepartum hemorrhage, unspecified trimester; Subchorionic bleed; UTI (urinary tract infection) during ; Vaginal bleeding in Primary Care Physician: SELAM HUNTER CNP Provider Information Primary Provider: Emily Harper M.D. Advanced Iron Worker Foreman:None The exam and treatment you received in the Emergency Department were for an urgent problem and are not intended as complete care. It is important that you follow up with a doctor, nurse practitioner, or physician?s music assistant for ongoing care. If your symptoms become worse or you do not improve as expected and you are unable to reach your usual health care provider, you should return to the Emergency Department. We are available 24 hours a day. KAILYN ACKERMAN has been given the following list of patient education materials, prescriptions and follow-up instructions: Follow-up Instructions: With: Address: [facility] [address] [place] [address] [place] [id number] Business (1) In 3 days 08/30/2023 With: Address: When: SELAM HUNTER [address] [place] [address] [place] [id number] Business (1) In 3 days In the event that this physician does not participate in your insurance network, please consult with your insurance company to find a nearby participating provider. Patient Education Materials: and Urinary Tract Infection; Urinary Tract Infection, Adult, Jxce-be-Oeyt; Subchorionic Hematoma A MESSAGE TO ALL PATIENTS REGARDING OPIOIDS PRESCRIPTION OPIOIDS: WHAT YOU NEED TO KNOW Prescription opioids can be used to help relieve goxyjhbb-ce-rcyogz pain and are often prescribed following a [...] toilet, follo (more content not included)... Normal [facility] HEMATOLOGYOrdered By: SYSTEM SYSTEM on 08-27-2023 [...] 08-27-19 24 Color (U) Light-Yellow Normal Yellow [facility] Comment on above: Result Comment: Micr oscopic readings are only performed on those samples that meet specific criteria set forth by [facility] Laboratory. Performed By: #### 4 [id number], [id number] ####[facility] [address] [place] [address] Glucose (U) [Mass/Vol] Negative Normal Negative [facility] Comment on above: Performed By: #### 4 [id number], [id number] ####[facility] [address] [place] [address] Ketones Ql (U) Negative Normal Negative [facility] Comment on above: Performed By: #### 4 [id number], [id number] ####[facility] [address] [place] [address] UA Blood 3+ Abnormal Negative [facility] Comment on above: Performed By: #### 4 [id number], [id number] ####[facility] [address] [place] [address] UA Bacteria 1+ [id number] Abnormal Trace [facility] Comment on above: Performed By: #### 4 [id number], [id number] ####[facility] [address] [place] [address] UA Clarity Turbid Abnormal Clear [facility] Comment on above: Performed By: #### 4 [id number], [id number] ####[facility] [address] [place] [address] UA Hyal Cast 0-3 Normal 0-3 [facility] Comment on above: Performed By: #### 4 [id number], [id number] ####[facility] [address] [place] [address] UA Leuk Est 250 Stefania/uL Abnormal Negative [facility] Comment on above: Performed By: #### 4 [id number], [id number] ####[facility] [address] [place] [address] UA Mucous Trace Normal Negative [facility] Comment on above: Performed By: #### 4 [id number], [id number] ####[facility] [address] [place] [address] UA Nitrite Negative Normal Negative [facility] Comment on above: Performed By: #### 4 [id number], [id number] ####[facility] [address] [place] [address] UA pH 5.5 Invalid Interpretation Code 5.0-9.0 [facility] Comment on above: Performed By: #### 4 [id number], [id number] ####[facility] [address] [place] [address] UA Protein 1+ mg/dL Abnormal Negative [facility] Comment on above: Performed By: #### 4 [id number], [id number] ####[facility] [address] [place] [address] UA RBC 4-20 Abnormal 0-3 [facility] Comment on above: Performed By: #### 4 [id number], [id number] ####[facility] [address] [place] [address] UA Spec Grav 1.018 Invalid Interpretation Code 1.005-1.030 [facility] Comment on above: Performed By: #### 4 [id number], [id number] ####[facility] [address] [facility] [place] [address] UA Squam Epithelial 3-4 Abnormal 0-2 [facility] Comment on above: Performed By: #### 4 [id number], [id number] ####[facility] [address] [place] [address] UA Urobilinogen Negative Normal Negative [facility] Comment on above: Performed By: #### 4 [id number], [id number] ####[facility] [address] [place] [address] UA WBC 6-15 Abnormal 0-5 [facility] Comment on above: Performed By: #### 4 [id number], [id number] ####[facility] [address] [place] [address] Urobilinogen (U) [Mass/Vol] Negative Normal Negative [facility] Comment on above: Performed By: #### 4 [id number], [id number] ####[facility] [address] [place] [address] UA Spec Desc Clean Catch Normal [facility] Comment on above: Performed By: #### 4 [id number], [id number] ####[facility] [address] [place] [address] URINALYSISOrdered By: SYSTEM SYSTEM on 08-27-2023 Color (U) Light-Yellow 1 (08/27/23 9:55 AM) Normal Yellow [facility] UA Auto SS Comment on above: Interpretive Data: M icroscopic readings are only performed on those samples that meet specific criteria set forth by [facility]. Glucose (U) [Mass/Vol] Negative Normal [...] Reason for Exam: Other (please specify) Report [facility] [phone] IMPRESSION: Single live intrauterine with estimated sonographic [...] heart rate is measured at 120 bpm. Tollette-rump length 4.77 mm. Estimated sonographic gestational age [...] Transvaginal Ultrasound Performed FHR (bpm) 120 Normal [facility] US Transvaginalon 08-27-2023 US Transvaginal Exam Date/Time: 08/27/2023 11:55 EDT Reason for Exam: Other (please specify) Report [facility] [phone] Please see ultrasound pelvis, for report of transvaginal examination. Ordering Provider: Hudson Riley FINAL REPORT Dictated: 08/27/2023 12:33 pm Zach Deng MD Signed (Electronic Signature): 08/27/2023 12:33 pm Signed by: Zach Deng MD Transcribed by: KIRK Technologist: SHELLEY Normal [facility] eGFRon 08-27-2023 eGFR 131 mL/min/1.73 m2 Normal >=59 [facility] Comment on above: Order Comment: Order added by Discern Expert. Performed By: #### 1 [id number], [id number], [id number] ####[facility] [address] [place] [address] [facility] Quanton 08-19-2023 HCG.beta subunit Qn 4261 m[IU]/mL High 1-3 Fi [facility] Comment on above: Result Comment: 'F N ON < 1 - 3' ' 0.2 - 1 WEEK = 5 TO 50' ' 1 - 2 WEEKS = 50 - 500' ' 2 - 3 WEEKS = 100 - 5000' ' 3 - 4 WEEKS = 500 - 48272' ' 4 - 5 WEEKS = 1000 - 96073' ' 5 - 6 WEEKS = 10645 - 578445' ' 6 - 8 WEEKS = 11085 - 250398' ' 8 - 12 WEEKS = 69619 - 305233' Performed By: #### 2 [id number] ####[facility] [address] [place] [address] Physician Orderon 08-19-2023 Physician Order [id number] Normal [facility] CHEMISTRYOrdered By: Juancho benitez on 01-03-2023 [...] 108 mL/min/1.73 m2 Normal >=59mL/min/1 .73 m2 [facility] Chem S HCG.beta subunit [...] 16.9 E9/L High 4.0 - 11.0 E9/L [facility] HemeAutoSS Laboratory - Microbiology an d Antimicrobial susceptibilityOrdered By: Asuncion Goncalves on 01-03-2023 Bacteria identified Cx Nom (U) No growth to date Continuing incubation [facility] MICRO OTHER TESTSOrdered By: Juancho Fitch [...] Interpretation Code Negative [facility] UA Auto SS [place].plasma/[place].R BC (Bld) [Mass ratio] 0-3 /HPF Normal [...] PM) Invalid Interpretation Code 1.005 - 1.030 [facility] UA Auto SS UA Spec Desc Clean Catch (01/03/23 10:52 PM) Normal [facility] UA Auto SS Urobilinogen Qn (U) 1.6813691 {Georgina'U}/dL Normal 0.0 - 1.0 EU/dL FT UA Auto SS WBC Auto Ql (U) 1+ *ABN* (01/03/23 10:52 PM) Invalid Interpretation Code Negative [facility] UA Auto SS WBC LM.HPF (Urine sed) [#/Area] 6-15 /HPF Invalid Interpretation Code 0-5/HPF [facility] UA Auto SS Alanine aminotransferase [En zymatic activity/volume] in Serum or PlasmaOrdered By: Jose Silverman on 10-02-2022 ALT [Catalytic activity/Vol] 13 U/L Normal 7-52 [facility] Comment on above: Performed By: #### C BC, CMP, ETOH #### [facility] [address] [place] [address] [place] Albumin [Mass/volume] in Ser um or Plasma by Bromocresol green (BCG) dye binding methoOrdered By: Jose Silverman on 10-02-2022 Albumin BCG dye [Mass/Vol] 5.0 g/dL 3.5-5.7 [facility] Alkaline phosphatase [Enzyma tic activity/volume] in Serum or PlasmaOrdered By: Jose Silverman on 10-02-2022 ALP [Catalytic activity/Vol] 69 U/L Normal 34-104 [facility] Comment on above: Performed By: #### C BC, CMP, ETOH #### [facility] [address] [place] [address] [place] Amphetamine Screen Ql (U)Ord ered By: Jose Silverman on 10-02-2022 Amphetamines Ql (U) Negative Negative [facility] Aspartate aminotransferase [ Enzymatic activity/volume] in Serum or PlasmaOrdered By: Jose Silverman on 10-02-2022 AST [Catalytic activity/Vol] 21 U/L Normal 13-39 [facility] Comment on above: Performed By: #### C BC, CMP, ETOH #### [address] Automated basophil %Ordered By: Jose Silverman on 10-02-2022 Basophils/100 WBC (Bld) 0.5 % Normal . [facility] Comment on above: Performed By: #### C BC, CMP, ETOH #### [address] Automated basophil countOrde red By: Jose Silverman on 10-02-2022 Basophils (Bld) [#/Vol] 0.1 10*3/uL Normal 0.0-0.2 [facility] Comment on above: Result Comment: PERF ORMED BY: [place] [address] PATHOLOGIST PRESIDENT AND CHIEF OPERATING OFFICER ASHELY CAREY M.D. Performed By: #### C BC, CMP, ETOH #### [address] Automated blood monocyte cou ntOrdered By: Jose Silverman on 10-02-2022 Monocytes (Bld) [#/Vol] 0.7 10*3/uL Normal 0.0-0.8 [facility] Comment on above: Performed By: #### C BC, CMP, ETOH #### [address] Automated eosinophil %Ordere d By: Jose Silverman on 10-02-2022 Eosinophils/100 WBC (Bld) 2.0 % Normal . [facility] Comment on above: Performed By: #### C BC, CMP, ETOH #### [address] Automated eosinophil countOr dered By: Jose Silverman on 10-02-2022 Eosinophils (Bld) [#/Vol] 0.3 10*3/uL Normal 0.0-0.45 [facility] Comment on above: Performed By: #### C BC, CMP, ETOH #### [address] Automated erythrocytes count in urine sediment (number/area)Ordered By: Jose Silverman on 10-02-2022 RBC Auto (Urine sed) [#/Area] 0-1 [HPF] 0-4 [facility] Automated leukocytes count i n urine sediment (number/area)Ordered By: Jose Silverman on 10-02-2022 WBC Auto (Urine sed) [#/Area] 10-19 [HPF] 0-4 [facility] Automated monocyte %Ordered By: Jose Silverman on 10-02-2022 Monocytes/100 WBC (Bld) 5.7 % Normal . [facility] Comment on above: Performed By: #### C BC, CMP, ETOH #### [facility] [address] Automated neutrophil %Ordere d By: Jose Silverman on 10-02-2022 Neutrophils/100 WBC (Bld) 68.7 % Normal . [facility] Comment on above: Performed By: #### C BC, CMP, ETOH #### [facility] [address] [place] [address] [place] Barbiturates [Presence] in U rine by Screen methodOrdered By: Jose Silverman on 10-02-2022 Barbiturates Screen Ql (U) Negative Negative [facility] Benzodiazepines Screen Ql (U )Ordered By: Jose Silverman on 10-02-2022 Benzodiazepines Ql (U) Negative Negative [facility] Benzoylecgonine [Presence] i n Urine by Screen methodOrdered By: Jose Silverman on 10-02-2022 Benzoylecgonine Screen Ql (U) Negative Negative [facility] Bilirubin Test strip Ql (U)O rdered By: Jose Silverman on 10-02-2022 Bilirubin Ql (U) Negative Negative [facility] Bilirubin.total [Mass/volume ] in Serum or PlasmaOrdered By: Jose Silverman on 10-02-2022 Bilirubin [Mass/Vol] 0.3 mg/dL Normal 0.3-1.0 [facility] Comment on above: Performed By: #### C BC, CMP, ETOH #### [facility] [address] [place] [address] [place] Calcium [Mass/volume] in Ser um or PlasmaOrdered By: Jose Silverman on 10-02-2022 Calcium [Mass/Vol] 9.6 mg/dL Normal 8.6-10.3 [facility] Comment on above: Performed By: #### C BC, CMP, ETOH #### [facility] [address] Cannabinoids [Presence] in U rine by Screen methodOrdered By: Jose Silverman on 10-02-2022 Cannabinoids Screen Ql (U) Negative Negative [facility] Comment on above: These are unconfirme d results and should not be used for legal purposes. Drug Cut-Off Concentration: AMPH 1000 ng/mL MIAH 200 ng/mL AYAN 200 ng/mL COCM 300 ng/mL OP 300 ng/mL PCP 25 ng/mL THC 20 ng/mL Carbon dioxide, total [Moles /volume] in Serum or PlasmaOrdered By: Jose Silverman on 10-02-2022 CO2 [Moles/Vol] 27.2 mmol/L Normal 21.0-31.0 [facility] Comment on above: Performed By: #### C BC, CMP, ETOH #### [place] [address] [place] Chloride [Moles/volume] in S brian or PlasmaOrdered By: Jose Silverman on 10-02-2022 Chloride [Moles/Vol] 101 mmol/L Normal 98-107 [facility] Comment on above: Performed By: #### C BC, CMP, ETOH #### [facility] [address] [place] [address] [place] Color Auto (U)Ordered By: Loli Silverman on 10-02-2022 Color (U) Yellow Yellow [facility] Complete Blood Count Auto Di ffon 10-02-2022 Mean Corpuscular HGB Conc 32.0 g/dL Normal 32.0-35.0 [facility] Comment on above: Performed By: #### C BC, CMP, ETOH #### [place] [address] [place] Monocytes/100 WBC (Bld) 17.72 % Normal 0.00-20.00 [facility] Comment on above: Performed By: #### C BC, CMP, ETOH #### [facility] [address] NRBC% 0.0 /100{WBC} Normal 0-0.5 [facility] Comment on above: Performed By: #### C BC, CMP, ETOH #### [facility] [address] Comprehensive Metabolic Pane tung 10-02-2022 Albumin [Mass/Vol] 5.0 g/dL Normal 3.5-5.7 [facility] Comment on above: Performed By: #### C BC, CMP, ETOH #### [address] Creatinine Clr Calc Pharmacy 107.48 [facility] Comment on above: Result Comment: PERF ORMED BY: [place] [address] PATHOLOGIST PRESIDENT AND CHIEF OPERATING OFFICER ASHELY CAREY M.D. Performed By: #### C BC, CMP, ETOH #### [address] GFR/1.73 sq M.predicted MDRD (S/P/Bld) [Vol rate/Area] mL/min/{1.73_m2} Normal [facility] Comment on above: Performed By: #### C BC, CMP, ETOH #### [address] Creatinine [Mass/volume] in Serum or PlasmaOrdered By: Jose Silverman on 10-02-2022 Creatinine [Mass/Vol] 0.89 mg/dL Normal 0.60-1.20 [facility] Comment on above: Performed By: #### C BC, CMP, ETOH #### [address] Dipstick and Microscopicon 0 10-02-2022 Appearance (U) Clear Normal Clear [facility] Comment on above: Order Comment: Name Collection Type:: Clean-Voided Midstream Performed By: #### U RDS, ADDONUAPLUS, CUU, UHCG #### [address] Bacteria,Urine 2+ High None Seen [facility] Comment on above: Order Comment: Name Collection Type:: Clean-Voided Midstream Performed By: #### U RDS, ADDONUAPLUS, CUU, UHCG #### [facility] [address] [place] [address] [place] Bilirubin,Urine Negative Normal Negative [facility] Comment on above: Order Comment: Name Collection Type:: Clean-Voided Midstream Performed By: #### U RDS, ADDONUAPLUS, CUU, UHCG #### [facility] [address] [place] [address] Color (U) Yellow Normal Yellow [facility] Comment on above: Order Comment: Name Collection Type:: Clean-Voided Midstream Performed By: #### U RDS, ADDONUAPLUS, CUU, UHCG #### [facility] [address] [place] [address] Glucose Ql (U) Normal Normal Normal [facility] Comment on above: Order Comment: Name Collection Type:: Clean-Voided Midstream Performed By: #### U RDS, ADDONUAPLUS, CUU, UHCG #### [facility] [address] [place] [address] [place] Hyaline Casts,Urine 0-8 Normal 0-8 [facility] Comment on above: Order Comment: Name Collection Type:: Clean-Voided Midstream Performed By: #### U RDS, ADDONUAPLUS, CUU, UHCG #### [facility] [address] [place] [address] [place] Ketones Ql (U) Negative Normal Negative [facility] Comment on above: Order Comment: Name Collection Type:: Clean-Voided Midstream Performed By: #### U RDS, ADDONUAPLUS, CUU, UHCG #### [facility] [address] [place] [address] [place] Leukocyte esterase Test strip Ql (U) 3+ High Negative [facility] Comment on above: Order Comment: Name Collection Type:: Clean-Voided Midstream Performed By: #### U RDS, ADDONUAPLUS, CUU, UHCG #### [facility] [address] [place] [address] [place] Nitrite,Urine Negative Normal Negative [facility] Comment on above: Order Comment: Name Collection Type:: Clean-Voided Midstream Performed By: #### U RDS, ADDONUAPLUS, CUU, UHCG #### [address] Occult Blood,Urine Negative Normal Negative [facility] Comment on above: Order Comment: Name Collection Type:: Clean-Voided Midstream Performed By: #### U RDS, ADDONUAPLUS, CUU, UHCG #### [address] pH (U) 6.5 [pH] Normal 5.0-9.0 [facility] Comment on above: Order Comment: Name Collection Type:: Clean-Voided Midstream Performed By: #### U RDS, ADDONUAPLUS, CUU, UHCG #### [place] [address] [place] Protein,Urine Negative Normal Negative [facility] Comment on above: Order Comment: Name Collection Type:: Clean-Voided Midstream Performed By: #### U RDS, ADDONUAPLUS, CUU, UHCG #### [address] RBC LM.HPF (Urine sed) [#/Area] 0 /[HPF] Normal 0-4 [facility] Comment on above: Order Comment: Name Collection Type:: Clean-Voided Midstream Performed By: #### U RDS, ADDONUAPLUS, CUU, UHCG #### [place] [address] [place] Specificy [place],Urine 1.021 Normal 1.001-1.030 [facility] Comment on above: Order Comment: Name Collection Type:: Clean-Voided Midstream Performed By: #### U RDS, ADDONUAPLUS, CUU, UHCG #### [address] Squamous Epithelial Cell,Urine 10-19 High 0-2 [facility] Comment on above: Order Comment: Name Collection Type:: Clean-Voided Midstream Performed By: #### U RDS, ADDONUAPLUS, CUU, UHCG #### [facility] [address] [place] [address] Urobilinogen,Urine Normal Normal Normal [facility] Comment on above: Order Comment: Name Collection Type:: Clean-Voided Midstream Performed By: #### U RDS, ADDONUAPLUS, CUU, UHCG #### [facility] [address] [place] [address] [place] WBC,Urine 10-19 High 0-4 [facility] Comment on above: Order Comment: Name Collection Type:: Clean-Voided Midstream Performed By: #### U RDS, ADDONUAPLUS, CUU, UHCG #### [facility] [address] [place] [address] Drug Screen,Urineon 10-03-19 23 Amphetamine Screen,Urine Negative Normal Negative [facility] Comment on above: Performed By: #### U RDS, ADDONUAPLUS, CUU, UHCG #### [facility] [address] [place] [address] [place] Barbiturate Screen,Urine Negative Normal Negative [facility] Comment on above: Performed By: #### U RDS, ADDONUAPLUS, CUU, UHCG #### [facility] [address] [place] [address] [place] Benzodiazepines Screen,Urine Negative Normal Negative [facility] Comment on above: Performed By: #### U RDS, ADDONUAPLUS, CUU, UHCG #### [facility] [address] [place] [address] [place] Cannabinoid Screen,Urine Negative Normal Negative [facility] Comment on above: Result Comment: Thes e are unconfirmed results and should not be used for legal purposes. Drug Cut-Off Concentration: AMPH 1000 ng/mL MIAH 200 ng/mL AYAN 200 ng/mL COCM 300 ng/mL OP 300 ng/mL PCP 25 ng/mL THC 20 ng/mL PERFORMED BY: [place] [phone] PATHOLOGIST PRESIDENT AND CHIEF OPERATING OFFICER ASHELY CAREY M.D. Performed By: #### U RDS, ADDONUAPLUS, CUU, UHCG #### [address] Cocaine Screen,Urine Negative Normal Negative [facility] Comment on above: Performed By: #### U RDS, ADDONUAPLUS, CUU, UHCG #### [address] Opiate Screen,Urine Negative Normal Negative [facility] Comment on above: Performed By: #### U RDS, ADDONUAPLUS, CUU, UHCG #### [address] Phencyclidine Screen,Urine Negative Normal Negative [facility] Comment on above: Performed By: #### U RDS, ADDONUAPLUS, CUU, UHCG #### [address] Erythrocyte distribution wid th [Ratio] by Automated countOrdered By: Jose Silverman on 10-02-2022 Erythrocyte distribution width (RBC) [Ratio] 15.8 % High 11.9-15.3 [facility] Comment on above: Performed By: #### C BC, CMP, ETOH #### [address] Erythrocytes [#/volume] in B lood by Automated countOrdered By: Jose Silverman on 10-02-2022 RBC (Bld) [#/Vol] 5.31 10*6/uL High 3.60-5.00 [facility] Comment on above: Performed By: #### C BC, CMP, ETOH #### [address] Ethanol [Mass/volume] in Ser um or PlasmaOrdered By: Jose Silverman on 10-02-2022 Ethanol [Mass/Vol] mg/dL Normal [facility] Comment on above: Performed By: #### C BC, CMP, ETOH #### [address] Ethanol [Mass/Vol] TNP [facility] Comment on above: Test not performed Ethyl Alcohol Profileon 09-08 Percent Ethanol Not performed Normal [facility] Comment on above: Result Comment: PERF ORMED BY: [place] [address] PATHOLOGIST PRESIDENT AND CHIEF OPERATING OFFICER ASHELY CAREY M.D. Performed By: #### C BC, CMP, ETOH #### [place] [id number] [facility] Glucose [Mass/volume] in Ser um or PlasmaOrdered By: Jose Silverman on 10-02-2022 Glucose [Mass/Vol] 98 mg/dL Normal 70-100 [facility] Comment on above: ADA recommended refe rence rangeRandom Glucose Reference Range is dependent on time and content of last meal. Glucose of more than 200 mg/dL in a nonstressed, ambulatory subject supports the diagnosis of Diabetes Mellitus. Result Comment: [place] Glucose Reference Range is dependent on time and content of last meal. Glucose of more than 200 mg/dL in a nonstressed, ambulatory subject supports the diagnosis of Diabetes Mellitus. ADA recommended reference range Performed By: #### C BC, CMP, ETOH #### [facility] [address] [place] [address] HCG ( test) IA.rapi d Ql (U)Ordered By: Jose Silverman on 10-02-2022 HCG ( test) Ql (U) Negative [facility] HCG,Urineon 10-02-2022 Beta HCG ( test) Ql (U) Negative Normal [facility] Comment on above: Order Comment: Name Collection Type:: Clean-Voided Midstream Result Comment: PERF ORMED BY: [place] [address] PATHOLOGIST PRESIDENT AND CHIEF OPERATING OFFICER ASHELY CAREY M.D. Performed By: #### U RDS, ADDONUAPLUS, CUU, UHCG #### [facility] [address] [place], [place] [id number] [facility] Hematocrit [Volume Fraction] of Blood by Automated countOrdered By: Jose Silverman on 10-02-2022 Hematocrit (Bld) [Volume fraction] 41.7 % Normal 34.0-46.4 [facility] Comment on above: Performed By: #### C BC, CMP, ETOH #### [address] Hemoglobin [Mass/volume] in BloodOrdered By: Jose Silverman on 10-02-2022 Hemoglobin (Bld) [Mass/Vol] 13.3 g/dL Normal 11.8-15.4 [facility] Comment on above: Performed By: #### C BC, CMP, ETOH #### [address] Ketones Auto test strip (U) [Mass/Vol]Ordered By: Jose Silverman on 10-02-2022 Ketones (U) [Mass/Vol] Negative Negative [facility] - UrinalysisOrder ed By: Jose Silverman on 10-02-2022 Hyaline casts LM Ql (Urine sed) 0-8 [LPF] 0-8 [facility] Leukocytes [#/volume] correc ruby for nucleated erythrocytes in Blood by Automated counOrdered By: Jose Silverman on 10-02-2022 WBC corrected for nucl RBC Auto (Bld) [#/Vol] 12.9 10*3/uL 3.8-11.6 [facility] Leukocytes [#/volume] in Blo od by Automated countOrdered By: Jose Silverman on 10-02-2022 WBC (Bld) [#/Vol] 12.9 10*3/uL High 3.8-11.6 [facility] Comment on above: Performed By: #### C BC, CMP, ETOH #### [place] [address] [place] Lymphocytes [#/volume] in Bl ood by Automated countOrdered By: Jose Silverman on 10-02-2022 Lymphocytes (Bld) [#/Vol] 3.0 10*3/uL Normal 1.00-4.8 [facility] Comment on above: Performed By: #### C BC, CMP, ETOH #### [facility] [address] [place] [address] [place] Lymphocytes/100 leukocytes i n Blood by Automated countOrdered By: Jose Silevrman on 10-02-2022 Lymphocytes/100 WBC (Bld) 23.1 % Normal . [facility] Comment on above: Performed By: #### C BC, CMP, ETOH #### [facility] [address] [place] [address] [place] MCH [Entitic mass] by Automa ruby countOrdered By: Jose Silverman on 10-02-2022 MCH (RBC) [Entitic mass] 25.2 pg Normal 24.7-34.3 [facility] Comment on above: Performed By: #### C BC, CMP, ETOH #### [facility] [address] MCHC Auto (RBC) [Mass/Vol]Or dered By: Jose Silverman on 10-02-2022 MCHC (RBC) [Mass/Vol] 32.0 g/dL 32.0-35.0 [facility] MCV [Entitic volume] by Auto mated countOrdered By: Jose Silverman on 10-02-2022 MCV (RBC) [Entitic vol] 78.5 fL Low 80-100 [facility] Comment on above: Performed By: #### C BC, CMP, ETOH #### [address] Monocyte distribution width [Entitic volume] in Blood by AutomatedOrdered By: Jose Silverman on 10-02-2022 Monocyte distribution width Auto (Bld) [Entitic vol] 17.72 % 0.00-20.00 [facility] Neutrophils [#/volume] in Bl ood by Automated countOrdered By: Jose Silverman on 10-02-2022 Neutrophils (Bld) [#/Vol] 8.9 10*3/uL High 1.8-7.7 [facility] Comment on above: Performed By: #### C BC, CMP, ETOH #### [address] Nitrite Test strip Ql (U)Ord ered By: Jose Silverman on 10-02-2022 Nitrite Ql (U) Negative Negative [facility] No Panel InformationOrdered By: Jose Silverman on 10-02-2022 Estimated GFR (CKD-EPI) > 60.0 mL/Min [facility] Creatinine Clearance (Chem 107.48 [facility] Nucleated erythrocytes [Pres ence] in Blood by Automated countOrdered By: Jose Silverman on 10-02-2022 Nucleated RBC Auto Ql (Bld) 0.0 /100{WBC} 0-0.5 [facility] Opiates [Presence] in Urine by Screen methodOrdered By: Jose Silverman on 10-02-2022 Opiates Screen Ql (U) Negative Negative [facility] Phencyclidine Screen Ql (U)O rdered By: Jose Silverman on 10-02-2022 Phencyclidine Ql (U) Negative Negative [facility] Platelet mean volume [Entiti c volume] in Blood by Automated countOrdered By: Jose Silverman on 10-02-2022 Platelet mean volume (Bld) [Entitic vol] 7.7 fL Normal 6.3-10.7 [facility] Comment on above: Performed By: #### C BC, CMP, ETOH #### [facility] [address] [place] [address] Platelets [#/volume] in Bloo d by Automated countOrdered By: Jose Silverman on 10-02-2022 Platelets (Bld) [#/Vol] 342 10*3/uL Normal 150-450 [facility] Comment on above: Performed By: #### C BC, CMP, ETOH #### [place] [address] [place] Potassium [Moles/volume] in Serum or PlasmaOrdered By: Jose Silverman on 10-02-2022 Potassium [Moles/Vol] 3.8 mmol/L Normal 3.5-5.1 [facility] Comment on above: Performed By: #### C BC, CMP, ETOH #### [place] [address] [place] Protein Auto test strip (U) [Mass/Vol]Ordered By: Jose Silverman on 10-02-2022 Protein (U) [Mass/Vol] Negative Negative [facility] Protein [Mass/volume] in Ser um or PlasmaOrdered By: Jose Silverman on 04-26-2023 Protein [Mass/Vol] 8.7 g/dL Normal 6.4-8.9 [facility] Comment on above: Performed By: #### C BC, CMP, ETOH #### [address] Serum globulin measurement b y calculation (mass/volume)Ordered By: Jose Silverman on 10-02-2022 Globulin (S) [Mass/Vol] 3.7 g/dL Normal [facility] Comment on above: Performed By: #### C BC, CMP, ETOH #### [address] Serum or plasma albumin/glob ulin mass ratioOrdered By: Jose Silverman on 10-02-2022 Albumin/Globulin [Mass ratio] 1.4 {ratio} Normal [facility] Comment on above: Performed By: #### C BC, CMP, ETOH #### [address] Serum or plasma anion gap de terminationOrdered By: Jose Silverman on 10-02-2022 Anion gap [Moles/Vol] 12.6 mmol/L Normal 6.0-15.0 [facility] Comment on above: Performed By: #### C BC, CMP, ETOH #### [address] Sodium [Moles/volume] in Ser um or PlasmaOrdered By: Jose Silverman on 10-02-2022 Sodium [Moles/Vol] 137 mmol/L Normal 136-145 [facility] Comment on above: Performed By: #### C BC, CMP, ETOH #### [address] Specific gravity Auto test s trip (U) [Rel density]Ordered By: Jose Silverman on 10-02-2022 Specific gravity (U) [Rel density] 1.021 1.001-1.030 [facility] Squamous epithelial cells de tection in urine sediment by light microscopyOrdered By: Jose Silverman on 10-02-2022 Epithelial cells.squamous LM Ql (Urine sed) 10-19 [HPF] 0-2 [facility] Urea nitrogen [Mass/volume] in Serum or PlasmaOrdered By: Jose Silverman on 10-02-2022 Urea nitrogen [Mass/Vol] 18 mg/dL Normal 7-25 [facility] Comment on above: Performed By: #### C BC, CMP, ETOH #### [facility] [address] [place] [address] [place] Urine Cultureon 10-02-2022 Bacteria identified Cx Nom (U) ORGANISM: Strep agalactiae - (group b) (O:STRAGA) [place] Count 50,000 PERFORMED BY: [place] [address] PATHOLOGIST PRESIDENT AND CHIEF OPERATING OFFICER ASHELY CAREY M.D. Normal [facility] Comment on above: Performed By: #### U RDS, ADDONUAPLUS, CUU, UHCG #### [facility] [address] [place] [address] Urine bacteria detection by automated methodOrdered By: Jose Silverman on 10-02-2022 Bacteria Auto Ql (U) 2+ None Seen [facility] Urine clarity by refractomet ry automatedOrdered By: Jose Silverman on 10-02-2022 Clarity Refractometry automated (U) Clear Clear [facility] Urine glucose measurement by automated test strip (mass/volume)Ordered By: Jose Silverman on 10-02-2022 Glucose Auto test strip (U) [Mass/Vol] Normal mg/dL Normal [facility] Urine hemoglobin detection b y automated test stripOrdered By: Jose Silverman on 10-02-2022 Hemoglobin Auto test strip Ql (U) Negative Negative [facility] Urine leukocyte esterase det ection by automated test stripOrdered By: Jose Silverman on 10-02-2022 Leukocyte esterase Auto test strip Ql (U) 3+ Negative [facility] Urobilinogen Auto test strip (U) [Mass/Vol]Ordered By: Jose Silverman on 10-02-2022 Urobilinogen (U) [Mass/Vol] Normal mg/dL Normal [facility] pH Auto test strip (U)Ordere d By: Jose Silverman on 10-02-2022 pH (U) 6.5 [pH] 5.0-9.0 [facility] Quick Strepon 09-25-2022 S. pyogenes Org specific cx Ql (Throat) Negative [employer] Other Quick Strep [employer] Other CHEMISTRYOrdered By: SYSTEM SYSTEM on 09-06-2022 [...] rate/Area] mL/min/1.73 m2 Normal >=59mL/min/1 .73 m2 [facility] Chem S GFR/1.73 sq M.predicted among non-blacks MDRD (S/P/Bld) [Vol rate/Area] mL/min/1.73 m2 Normal >=59mL/min/1 .73 m2 [facility] Chem S Glucose [Mass/Vol] [...] AM) Normal Negative [facility] UA Auto SS [place].plasma/[place].R BC (Bld) [Mass ratio] >30 /HPF Invalid [...] AM) Invalid Interpretation Code 1.005 - 1.030 [facility] UA Auto SS UA Spec Desc Clean Catch (09/06/22 11:19 AM) Normal [facility] UA Auto SS Urobilinogen Qn (U) 0.6501842 {Georgina'U}/dL Normal 0.0 - 1.0 EU/dL [facility] UA Auto SS WBC Auto Ql (U) Negative (09/06/22 11:19 AM) Normal Negative [facility] UA Auto SS WBC LM.HPF (Urine sed) [#/Area] 0-5 /HPF Normal 0-5/HPF [facility] UA Auto SS BLOOD BANKOrdered By: John Montague on 08-14-2022 ABO/Rh Interp Positive Invalid Interpretation Code [facility] BB Subsection CHEMISTRYOrdered By: [...] rate/Area] mL/min/1.73 m2 Normal >=59mL/min/1 .73 m2 [facility] Chem S Globulin (S) [...] PM) Normal Negative [facility] UA Auto SS [place].plasma/[place].R BC (Bld) [Mass ratio] 0-3 /HPF Normal [...] [facility] UA Auto SS Urobilinogen Qn (U) 0.8285808 {Georgina'U}/dL Normal 0.0 - 1.0 EU/dL [facility] UA Auto SS WBC Auto Ql (U) Negative (08/14/22 7:29 PM) Normal Negative [facility] UA Auto SS WBC LM.HPF (Urine sed) [#/Area] 0-5 /HPF Normal 0-5/HPF [facility] UA Auto SS CHLAMYDIA/GONOCOCCUS ALFREDO (SW AB/URINE/PAPon 07-15-2022 Chlamydia trachomatis, ALFREDO Negative Normal Negative [facility] Comment on above: Performed By: #### C T/NGNA #### [facility] [address] [place] [address] [address] Cyril Hendricks Neisseria gonorrhoeae, ALFREDO Negative Normal Negative [facility] Comment on above: Performed By: #### C T/NGNA #### [facility] [address] [place] [address] Dr. Cyril Hendricks VAGINITIS/VAGINOSIS DNA PROB Maurice 07-13-2022 Krista species Negative Normal Negative [facility] Comment on above: Performed By: #### U MICRO, UACSIND #### [facility] [address] [place] [address] [address] Cyril Hendricks Gardnerella vaginalis Positive Abnormal Negative [facility] Comment on above: Performed By: #### U MICRO, UACSIND #### [facility] [address] [place] [address] [address] Cyril Hendricks Trichomonas vaginalis Negative Normal Negative [facility] Comment on above: Performed By: #### U MICRO, UACSIND #### [facility] [address] [place] [address] [address] Cyril Hendricks COVID/FLU RT-PCRon SARS-CoV-2 (COVID-19) RNA ALFREDO+probe Ql (Unsp spec) Negative [employer] Other COVID/FLU RT-PCR Negative [employer] Other Quick Strepon 06-24-2022 S. pyogenes Org specific cx Ql (Throat) Negative [employer] Other Quick Strep [place] [employer] Other CBC AUTO DIFFon 01-08-2022 BASO # 0.1 103/ul Normal 0.0-0.1 [facility] Comment on above: Performed By: #### C BC #### [facility] [address] [place] [address] [address] Cyril Hendricks Basophils/100 WBC (Bld) 0.4 % Normal 0.2-2.0 [facility] Comment on above: Performed By: #### C BC #### [facility] [address] [place] [address] [address] Cyril Hendricks EO # 0.1 103/ul Normal 0.0-0.7 [facility] Comment on above: Performed By: #### C BC #### [facility] [address] [place] [address] Dr. Cyril Hendricks Eosinophils/100 WBC (Bld) 0.9 % Normal 0.9-7.0 [facility] Comment on above: Performed By: #### C BC #### [facility] [address] [place] [address] [address] Cyril Hendricks Erythrocyte distribution width (RBC) [Ratio] 12.3 % Normal 11.0-15.0 [facility] Comment on above: Performed By: #### C BC #### [facility] [address] [place] [address] Dr. Cyril Hendricks Hematocrit (Bld) [Volume fraction] 30.0 % Critically low 36.0-48.0 [facility] Comment on above: Performed By: #### C BC #### [facility] [address] [place] [address] [address] Cyril Hendricks Hemoglobin (Bld) [Mass/Vol] 10.2 g/dL Critically low 12.0-16.0 [facility] Comment on above: Performed By: #### C BC #### [facility] [address] [place] [address] Dr. Cyril Hendricks IG # 0.05 10e3/ul Critically high 0.00-0.03 [facility] Comment on above: Performed By: #### C BC #### [facility] [address] [place] [address] Dr. Cyril Hendricks IG % 0.4 % Normal 0.0-0.5 [facility] Comment on above: Performed By: #### C BC #### [facility] [address] [place] [address] Dr. Cyril Hendricks LYMPH # 2.8 103/ul Normal 1.2-3.8 [facility] Comment on above: Performed By: #### C BC #### [facility] [address] [place] [address] Dr. Cyril Hendricks Lymphocytes/100 WBC (Bld) 19.7 % Critically low 20.5-60.0 [facility] Comment on above: Performed By: #### C BC #### [facility] [address] [place] [address] Dr. Cyril Hendricks MANUAL DIFF REQ NO Normal [facility] Comment on above: Performed By: #### C BC #### [facility] [address] [place] [address] Dr. Cyril Hendricks MCH (RBC) [Entitic mass] 30.6 pg Normal 26.7-34.0 [facility] Comment on above: Performed By: #### C BC #### [facility] [address] [place] [address] Dr. Cyril Hendricks MCHC (RBC) [Mass/Vol] 34.0 g/dL Normal 29.9-35.2 [facility] Comment on above: Performed By: #### C BC #### [facility] [address] [place] [address] Dr. Cyril Hendricks MCV (RBC) [Entitic vol] 90.1 fL Normal 81.0-99.0 [facility] Comment on above: Performed By: #### C BC #### [facility] [address] [place] [address] Dr. Cyril Hendricks MONO # 0.8 103/ul Normal 0.3-0.8 [facility] Comment on above: Performed By: #### C BC #### [facility] [address] [place] [address] Dr. Cyril Hendricks Monocytes/100 WBC (Bld) 5.9 % Normal 1.7-12.0 [facility] Comment on above: Performed By: #### C BC #### [facility] [address] [place] [address] Dr. Cyril Hendricks NEUT # 10.3 103/ul Critically high 1.4-6.5 [facility] Comment on above: Performed By: #### C BC #### [facility] [address] [place] [address] Dr. Cyril Hendricks Neutrophils/100 WBC (Bld) 72.7 % Normal 43.0-75.0 [facility] Comment on above: Performed By: #### C BC #### [facility] [address] [place] [address] Dr. Cyril Hendricks Platelet mean volume (Bld) [Entitic vol] 9.8 fL Normal 9.5-13.5 [facility] Comment on above: Performed By: #### C BC #### [facility] [address] [place] [address] Dr. Cyril Hendricks PLT 207 103/ul Normal 150-450 [facility] Comment on above: Performed By: #### C BC #### [facility] [address] [place] [address] Dr. Cyril Hendricks RBC 3.33 106/ul Critically low 4.20-5.40 [facility] Comment on above: Performed By: #### C BC #### [facility] [address] [place] [address] Dr. Cyril Hendricks WBC 14.2 103/ul Critically high 4.0-11.0 [facility] Comment on above: Performed By: #### C BC #### [facility] [address] [place] [address] Dr. Cyril Hendricks CBC AUTO DIFFon 01-07-2022 BASO # 0.1 103/ul Normal 0.0-0.1 [facility] Comment on above: Performed By: #### U MICRO, UACSIND #### [facility] [address] [address] [address] Cyril Hendricks Basophils/100 WBC (Bld) 0.5 % Normal 0.2-2.0 [facility] Comment on above: Performed By: #### U MICRO, UACSIND #### [facility] [address] [address] [address] Cyril Hendricks EO # 0.1 103/ul Normal 0.0-0.7 [facility] Comment on above: Performed By: #### U MICRO, UACSIND #### [facility] [address] [place] [address] [address] Cyril Hendricks Eosinophils/100 WBC (Bld) 0.9 % Normal 0.9-7.0 [facility] Comment on above: Performed By: #### U MICRO, UACSIND #### [facility] [address] [place] [address] Dr. Cyril Hendricks Erythrocyte distribution width (RBC) [Ratio] 12.4 % Normal 11.0-15.0 [facility] Comment on above: Performed By: #### U MICRO, UACSIND #### [facility] [address] [place] [address] Dr. Cyril Hendricks Hematocrit (Bld) [Volume fraction] 34.3 % Critically low 36.0-48.0 [facility] Comment on above: Performed By: #### U MICRO, UACSIND #### [facility] [address] [place] [address] Dr. Cyril Hendricks Hemoglobin (Bld) [Mass/Vol] 11.6 g/dL Critically low 12.0-16.0 [facility] Comment on above: Performed By: #### U MICRO, UACSIND #### [facility] [address] [address] [address] Cyril Hendricks IG # 0.06 10e3/ul Critically high 0.00-0.03 [facility] Comment on above: Performed By: #### U MICRO, UACSIND #### [facility] [address] [place] [address] Dr. Cyril Hendricks IG % 0.4 % Normal 0.0-0.5 [facility] Comment on above: Performed By: #### U MICRO, UACSIND #### [facility] [address] [place] [address] Dr. Cyril Hendricks LYMPH # 3.1 103/ul Normal 1.2-3.8 [facility] Comment on above: Performed By: #### U MICRO, UACSIND #### [facility] [address] [place] [address] Dr. Cyril Hendricks Lymphocytes/100 WBC (Bld) 20.4 % Critically low 20.5-60.0 [facility] Comment on above: Performed By: #### U MICRO, UACSIND #### [facility] [address] [place] [address] Dr. Cyril Hendricks MANUAL DIFF REQ NO Normal [facility] Comment on above: Performed By: #### U MICRO, UACSIND #### [facility] [address] [place] [address] Dr. Cyril Hendricks MCH (RBC) [Entitic mass] 30.6 pg Normal 26.7-34.0 [facility] Comment on above: Performed By: #### U MICRO, UACSIND #### [facility] [address] [place] [address] Dr. Cyril Hendricks MCHC (RBC) [Mass/Vol] 33.8 g/dL Normal 29.9-35.2 [facility] Comment on above: Performed By: #### U MICRO, UACSIND #### [facility] [address] [place] [address] Dr. Cyril Hendricks MCV (RBC) [Entitic vol] 90.5 fL Normal 81.0-99.0 [facility] Comment on above: Performed By: #### U MICRO, UACSIND #### [facility] [address] [place] [address] Dr. Cyril Hendricks MONO # 0.9 103/ul Critically high 0.3-0.8 [facility] Comment on above: Performed By: #### U MICRO, UACSIND #### [facility] [address] [place] [address] Dr. Cyril Hendricks Monocytes/100 WBC (Bld) 6.2 % Normal 1.7-12.0 [facility] Comment on above: Performed By: #### U MICRO, UACSIND #### [facility] [address] [address] [address] Cyril Hendricks NEUT # 10.9 103/ul Critically high 1.4-6.5 [facility] Comment on above: Performed By: #### U MICRO, UACSIND #### [facility] [address] [place] [address] Dr. Cyril Hendricks Neutrophils/100 WBC (Bld) 71.6 % Normal 43.0-75.0 [facility] Comment on above: Performed By: #### U MICRO, UACSIND #### [facility] [address] [place] [address] Dr. Cyril Hendricks Platelet mean volume (Bld) [Entitic vol] 11.1 fL Normal 9.5-13.5 [facility] Comment on above: Performed By: #### U MICRO, UACSIND #### [facility] [address] [place] [address] Dr. Cyril Hendricks PLT 240 103/ul Normal 150-450 [facility] Comment on above: Performed By: #### U MICRO, UACSIND #### [facility] [address] [place] [address] Dr. Cyril Hendricks RBC 3.79 106/ul Critically low 4.20-5.40 [facility] Comment on above: Performed By: #### U MICRO, UACSIND #### [facility] [address] [place] [address] Dr. Cyril Hendricks WBC 15.3 103/ul Critically high 4.0-11.0 [facility] [facility] Comment on above: Performed By: #### U MICRO, UACSIND #### [facility] [address] [place] [address] Dr. Cyril Hendricks Covid-19 PCR ([facility])on SARS-CoV-2 (COVID-19) RNA ALFREDO+probe Ql (Unsp spec) Not detected Normal NOT DETECTED [facility] Comment on above: Result Comment: When [...] for this test is supported by the [place] of Health and Human Service's declaration that [...] used). Performed By: #### H CVPCRR #### [facility] [address] [place] [address] Dr. Cyril Hendricks DRUG SCREEN RAPID (URINE)on 01-07-2022 AMP Negative Normal NEGATIVE [facility] Comment on above: Performed By: #### U MICRO, UACSIND #### [facility] [address] [place] [address] Dr. Cryil Hendricks BAR Negative Normal NEGATIVE [facility] Comment on above: Performed By: #### U MICRO, UACSIND #### [facility] [address] [place] [address] Dr. Cyril Hendricks BUP Negative Normal NEGATIVE [facility] Comment on above: Performed By: #### U MICRO, UACSIND #### [facility] [address] [place] [address] Dr. Cyril Hendricks BZO Negative Normal NEGATIVE [facility] Comment on above: Performed By: #### U MICRO, UACSIND #### [facility] [address] [place] [address] Dr. Cyril Hendricks DARIN Negative Normal NEGATIVE [facility] Comment on above: Performed By: #### U MICRO, UACSIND #### [facility] [address] [place] [address] Dr. Cyril Hendricks CUT-OFFS SEE BELOW Normal [...] Performed By: #### U MICRO, UACSIND #### [facility] [address] [place] [address] Dr. Cyril Hendricks DRUG CUT HEADER DRUG CLASS TEST SYSTEM CUT-OFF CONCENTRATIONS ARE FOLLOWS: Normal [facility] Comment on above: Performed By: #### U MICRO, UACSIND #### [facility] [address] [place] [address] Dr. Cyril Hendricks mAMP Negative Normal NEGATIVE [facility] Comment on above: Performed By: #### U MICRO, UACSIND #### [facility] [address] [place] [address] Dr. Cyril Hendricks MTD Negative Normal NEGATIVE [facility] Comment on above: Performed By: #### U MICRO, UACSIND #### [facility] [address] [place] [address] Dr. Cyril Hendricks OPI Negative Normal NEGATIVE [facility] Comment on above: Performed By: #### U MICRO, UACSIND #### [facility] [address] [place] [address] Dr. Cyril Hendricks OXY Negative Normal NEGATIVE [facility] Comment on above: Performed By: #### U MICRO, UACSIND #### [facility] [address] [place] [address] Dr. Cyril Hendricks PCP Negative Normal NEGATIVE [facility] Comment on above: Performed By: #### U MICRO, UACSIND #### [facility] [address] [place] [address] Dr. Cyril Hendricks PPX Negative Normal NEGATIVE [facility] Comment on above: Performed By: #### U MICRO, UACSIND #### [facility] [address] [place] [address] Dr. Cyril Hendricks TCA Negative Normal NEGATIVE [facility] Comment on above: Performed By: #### U MICRO, UACSIND #### [facility] [address] [place] [address] Dr. Cyril Hendricks THC Negative Normal NEGATIVE [facility] Comment on above: Performed By: #### U MICRO, UACSIND #### [facility] [address] [place] [address] Dr. Cyril Hendricks TYPE AND SCREENon 01-07-2022 TYPE AND SCREEN Negative Normal [facility] Comment on above: Performed By: #### H CVPCRR #### [facility] [address] [place] [address] Dr. Cyril Hendricks CULTURE URINEon 12-29-2021 CULTURE URINE Culture Observations: NO GROWTH. Normal [facility] Comment on above: Performed By: #### U RCX #### [facility] [address] [place] [address] Dr. Cyril Hendricks UA (CLEAN/CATCH) [employer] LIAISON OFFICER/MICRO I F IND.on 12-29-2021 Bilirubin Ql (U) Negative Normal NEGATIVE [facility] Comment on above: Performed By: #### U MICRO, UACSIND #### [facility] [address] [place] [address] Dr. Cyril Hendricks Clarity (U) SL CLOUDY Abnormal CLEAR [facility] Comment on above: Performed By: #### U MICRO, UACSIND #### [facility] [address] [place] [address] Dr. Cyril Hendricks Color (U) LT. YELLOW Normal YELLOW [facility] Comment on above: Performed By: #### U MICRO, UACSIND #### [facility] [address] [place] [address] Dr. Cyril Hendricks Glucose Ql (U) Negative Normal NEGATIVE [facility] Comment on above: Performed By: #### U MICRO, UACSIND #### [facility] [address] [address] [address] Cyril Hendricks Hemoglobin Ql (U) Negative Normal NEGATIVE [facility] Comment on above: Performed By: #### U MICRO, UACSIND #### [facility] [address] [address] [address] Cyril Hendricks Ketones Ql (U) Negative Normal NEGATIVE [facility] Comment on above: Performed By: #### U MICRO, UACSIND #### [facility] [address] [address] [address] Cyril Hendricks LEUKOCYTES LARGE Abnormal NEGATIVE [facility] Comment on above: Performed By: #### U MICRO, UACSIND #### [facility] [address] [place] [address] Dr. Cyril Hendricks Nitrite Ql (U) Negative Normal NEGATIVE [facility] Comment on above: Performed By: #### U MICRO, UACSIND #### [facility] [address] [address] [address] Cyril Hendricks pH (U) 6.5 [pH] Normal 5-9 [facility] Comment on above: Performed By: #### U MICRO, UACSIND #### [facility] [address] [address] [address] Cyril Hendricks SPEC GRAVITY 1.010 Normal 1.005-<=1.02 5 [facility] Comment on above: Performed By: #### U MICRO, UACSIND #### [facility] [address] [address] [address] Cyril Hendricks UA PROTEIN Negative Normal NEGATIVE/ TRACE [facility] Comment on above: Performed By: #### U MICRO, UACSIND #### [facility] [address] [address] [address] Cyril Hendricks UR MICRO IND INDICATED Normal [facility] Comment on above: Performed By: #### U MICRO, UACSIND #### [facility] [address] [address] [address] Cyril Hendricks Urobilinogen Qn (U) 0.2 {Georgina'U}/dL Normal 0.2 - 1. 0 [facility] Comment on above: Performed By: #### U MICRO, UACSIND #### [facility] [address] [place] [address] Dr. Cyril Hendricks URINE MICROSCOPIC ONLYon BACTERIA SMALL Abnormal NONE SEEN [facility] Comment on above: Performed By: #### U MICRO, UACSIND #### [facility] [address] [place] [address] Dr. Cyril Hendricks Bacteria identified Cx Nom (U) INDICATED Normal [facility] Comment on above: Performed By: #### U MICRO, UACSIND #### [facility] [address] [place] [address] Dr. Cyril Hendricks CAST NONE SEEN Normal NONE SEEN [facility] Comment on above: Performed By: #### U MICRO, UACSIND #### [facility] [address] [place] [address] Dr. Cyril Hendricks Crystals LM Nom (Urine sed) NONE SEEN Normal NONE SEEN [facility] Comment on above: Performed By: #### U MICRO, UACSIND #### [facility] [address] [place] [address] Dr. Cyril Hendricks Epithelial cells LM Ql (Urine sed) MANY Abnormal NONE SEEN /RARE [facility] Comment on above: Performed By: #### U MICRO, UACSIND #### [facility] [address] [place] [address] Dr. Cyril Hendricks MUCOUS NONE SEEN Normal NONE SEEN [facility] Comment on above: Performed By: #### U MICRO, UACSIND #### [facility] [address] [place] [address] Dr. Cyril Hendricks RBC 0-2 Normal 0-2 [facility] Comment on above: Performed By: #### U MICRO, UACSIND #### [facility] [address] [place] [address] Dr. Cyril Hendricks WBC 10-20 Abnormal NONE SEEN [facility] Comment on above: Performed By: #### U MICRO, UACSIND #### [facility] [address] [place], [place] [address] Dr. Cyril Hendricks GROUP B STREP CULTUREon 12-07 S. agalactiae Ag Ql (Unsp spec) Culture Observations: NEGATIVE FOR GROUP B STREPTOCOCCUS. Normal [facility] Comment on above: Performed By: #### G BSCX #### [facility] [address] [id number] Cyril Hendricks SSAon 12-13-2021 SSA <0.3 Normal <7.0 [facility] Comment on above: Result Comment: Reference Range: <7.0 Negative 7.0-10.0 Equivocal >10.0 Positive Performed By: #### S SARO, TSH, FT4, SSBLA #### [facility] [employer] [address] [place], [place] [id number] Veterans Adviser: Homer Hoffman MD SSBon 12-13-2021 SSB <0.3 Normal <7.0 [facility] Comment on above: Result Comment: Reference Range: <7.0 Negative 7.0-10.0 Equivocal >10.0 Positive Performed By: #### S SARO, TSH, FT4, SSBLA #### [facility] [address] [place], [place] [id number] Veterans Adviser: Homer Hoffman MD No Panel Informationon 12-12 [facility] T4, Freeon 12-12-2021 Thyroxine, Free 0.98 ng/dL 0.93 - 1.70 ng/dL [facility] TSHon 12-12-2021 TSH Qn 4.35 m[IU]/L [facility] Thyroid Stim. Horm.on 2021 Thyroid Stim. Horm. 4.35 uIU/mL Normal 0.30-5.[address] [facility] Comment on above: Performed By: #### S SARO, TSH, FT4, SSBLA #### [facility] [employer] [address] [place] [id number] [employer] Adviser: Homer Hoffman MD Thyroxine, Freeon 12-12-2021 Thyroxine, Free 0.98 ng/dL Normal 0.93-1.70 [facility] Comment on above: Performed By: #### S SARO, TSH, FT4, SSBLA #### [facility] [address] [place] [address] Veterans Adviser: Homer Hoffman MD US PREG BIOPHY W [...] (COVID-19) RNA ALFREDO+probe Ql (Unsp spec) Negative [employer] Other COVID + FLU Quick Testing Negative [facility] [employer] Other GLUCOSE - 1HRon 10-23-2021 Glucose [Mass/Vol] 83 mg/dL Normal 74-106 [facility] Comment on above: Performed By: #### G LU1HR #### [facility] [address] [address] [address] Cyril Hendricks CHLAMYDIA/GONOCOCCUS ALFREDO (SW AB/URINE/PAPon 10-05-2021 Chlamydia trachomatis, ALFREDO Negative Normal Negative [facility] Comment on above: Performed By: #### C T/NGNA #### [facility] [address] [place], [place] [address] Dr. Cyril Hendricks Neisseria gonorrhoeae, ALFREDO Negative Normal Negative [facility] Comment on above: Performed By: #### C T/NGNA #### [facility] [address] [address] [address] Cyril Hendricks VAGINITIS/VAGINOSIS DNA PROB Maurice 10-04-2021 Krista species Positive Abnormal Negative [facility] Comment on above: Performed By: #### H CVPCRR #### [facility] [address] [place] [address] Dr. Cyril Hendricks Gardnerella vaginalis Negative Normal Negative [facility] Comment on above: Performed By: #### H CVPCRR #### [facility] [address] [place] [address] Dr. Cyril Hendricks Trichomonas vaginalis Negative Normal Negative [facility] Comment on above: Performed By: #### H CVPCRR #### [facility] [address] [place] [address] Dr. Cyril Hendricks HEP B SURFACE ANTIGEN SCREEN on 10-03-2021 HBsAg Screen Negative Normal Negative [facility] Comment on above: Performed By: #### H CVPCRR #### [facility] [address] [place] [address] Dr. Cyril Hendricks HEPATITIS C VIRUS AB W/ REFL EX QUANTon 10-03-2021 HCV AB <0.1 Normal 0.0-0.9 [facility] Comment on above: Performed By: #### H CVPCRR #### [facility] [address] [place] [address] Dr. Cyril Hendricks Interpretation: Comment Normal [facility] Comment on above: Result Comment: Nega tive Not infected with HCV, unless recent infection is suspected or other evidence exists to indicate HCV infection. Performed By: #### H CVPCRR #### [facility] [address] [place] [address] Dr. Cyril Hendricks HIV 1 AND 2 WITH REFLEXon HIV Screen 4th Generation wRfx Non-Reactive Normal Non Reactive [facility] Comment on above: Result Comment: HIV Negative HIV-1/HIV-2 antibodies and HIV-1 p24 antigen were NOT detected. There is no laboratory evidence of HIV infection. Performed By: #### H IV12 #### [facility] [address] [place] [address] Dr. Cyril Hendricks RPR QUANTon 10-03-2021 Rapid [...] utilized, such as Treponema pallidum (Syphilis) Screening [place] (277709) or Rapid Plasma Reagin (RPR) Test With Reflex to Quantitative RPR and Confirmatory Treponema pallidum Antibodies (434417). Performed By: #### U MICRO, UACSIND #### [facility] [address] [place] [address] Dr. Cyril Hendricks RUBELLA AB IGGon 10-03-2021 Rubella Antibodies, IgG <0.90 Critically low Immune > 0.99 [facility] Comment on above: Result Comment: Non- immune <0.90 Equivocal 0.90 - 0.99 Immune >0.99 Performed By: #### U MICRO, UACSIND #### [facility] [address] [place] [address] Dr. Cyril Hendricks CBC AUTO DIFFon 10-02-2021 BASO # 0.1 103/ul Normal 0.0-0.1 [facility] Comment on above: Performed By: #### U MICRO, UACSIND #### [facility] [address] [place] [address] Dr. Cyril Hendricks Basophils/100 WBC (Bld) 0.4 % Normal 0.2-2.0 [facility] Comment on above: Performed By: #### U MICRO, UACSIND #### [facility] [address] [place] [address] Dr. Cyril Hendricks EO # 0.1 103/ul Normal 0.0-0.7 [facility] Comment on above: Performed By: #### U MICRO, UACSIND #### [facility] [address] [place] [address] Dr. Cyril Hendricks Eosinophils/100 WBC (Bld) 1.1 % Normal 0.9-7.0 [facility] Comment on above: Performed By: #### U MICRO, UACSIND #### [facility] [address] [place] [address] Dr. Cyril Hendricks Erythrocyte distribution width (RBC) [Ratio] 13.5 % Normal 11.0-15.0 [facility] Comment on above: Performed By: #### U MICRO, UACSIND #### [facility] [address] [place] [address] Dr. Cyril Hendricks Hematocrit (Bld) [Volume fraction] 34.5 % Critically low 36.0-48.0 [facility] Comment on above: Performed By: #### U MICRO, UACSIND #### [facility] [address] [place] [address] Dr. Cyril Hendricks Hemoglobin (Bld) [Mass/Vol] 12.0 g/dL Normal 12.0-16.0 [facility] Comment on above: Performed By: #### U MICRO, UACSIND #### [facility] [address] [place] [address] Dr. Cyril Hendricks IG # 0.04 10e3/ul Critically high 0.00-0.03 [facility] Comment on above: Performed By: #### U MICRO, UACSIND #### [facility] [address] [place] [address] Dr. Cyril Hendricks IG % 0.3 % Normal 0.0-0.5 [facility] Comment on above: Performed By: #### U MICRO, UACSIND #### [facility] [address] [place] [address] Dr. Cyril Hendricks LYMPH # 2.6 103/ul Normal 1.2-3.8 [facility] Comment on above: Performed By: #### U MICRO, UACSIND #### [facility] [address] [place] [address] Dr. Cyril Hendricks Lymphocytes/100 WBC (Bld) 21.3 % Normal 20.5-60.0 [facility] Comment on above: Performed By: #### U MICRO, UACSIND #### [facility] [address] [address] [address] Cyril Hendricks MANUAL DIFF REQ NO Normal [facility] Comment on above: Performed By: #### U MICRO, UACSIND #### [facility] [address] [address] [address] Cyril Hendricks MCH (RBC) [Entitic mass] 32.5 pg Normal 26.7-34.0 [facility] Comment on above: Performed By: #### U MICRO, UACSIND #### [facility] [address] [address] [address] Cyril Hendricks MCHC (RBC) [Mass/Vol] 34.8 g/dL Normal 29.9-35.2 [facility] Comment on above: Performed By: #### U MICRO, UACSIND #### [facility] [address] [place] [address] Dr. Cyril Hendricks MCV (RBC) [Entitic vol] 93.5 fL Normal 81.0-99.0 [facility] Comment on above: Performed By: #### U MICRO, UACSIND #### [facility] [address] [address] [address] Cyril Hendricks MONO # 0.8 103/ul Normal 0.3-0.8 [facility] Comment on above: Performed By: #### U MICRO, UACSIND #### [facility] [address] [address] [address] Cyril Hendricks Monocytes/100 WBC (Bld) 6.2 % Normal 1.7-12.0 [facility] Comment on above: Performed By: #### U MICRO, UACSIND #### [facility] [address] [address] [address] Cyril Hendricks NEUT # 8.6 103/ul Critically high 1.4-6.5 [facility] Comment on above: Performed By: #### U MICRO, UACSIND #### [facility] [address] [place] [address] Dr. Cyril Hendricks Neutrophils/100 WBC (Bld) 70.7 % Normal 43.0-75.0 [facility] Comment on above: Performed By: #### U MICRO, UACSIND #### [facility] [address] [address] [address] Cyril Hendricks Platelet mean volume (Bld) [Entitic vol] 9.1 fL Critically low 9.5-13.5 [facility] Comment on above: Performed By: #### U MICRO, UACSIND #### [facility] [address] [address] [address] Cyril Hendricks PLT 257 103/ul Normal 150-450 [facility] Comment on above: Performed By: #### U MICRO, UACSIND #### [facility] [address] [address] [address] Cyril Hendricks RBC 3.69 106/ul Critically low 4.20-5.40 [facility] Comment on above: Performed By: #### U MICRO, UACSIND #### [facility] [address] [address] [address] Cyril Hendricks WBC 12.2 103/ul Critically high 4.0-11.0 [facility] Comment on above: Performed By: #### U MICRO, UACSIND #### [facility] [address] [address] [address] Cyril Hendricks CULTURE URINEon 10-02-2021 CULTURE URINE Culture Observations: MODERATE GROWTH OF MIXED GENITAL DRAGAN. NO POTENTIAL PATHOGENS SEEN. Normal [facility] Comment on above: Performed By: #### H CVPCRR #### [facility] [address] [place] [address] Dr. Cyril Hendricks GLYCOHEMOGLOBIN A1Con 2021 ADA RECOMMENDATION SEE BELOW Normal [facility] Comment on above: Result Comment: ADA RECOMMENDED LIMIT 4.0 - 6.0 ADA THERAPEUTIC TARGET < 7.0 ACTION SUGGESTED > 7.0 Performed By: #### H CVPCRR #### [facility] [address] [place] [address] Dr. Cyril Hendricks Glucose [Mass/Vol] 80 mg/dL Normal [facility] Comment on above: Performed By: #### H CVPCRR #### [facility] [address] [place], [place] [address] Dr. Cyril Hendricks HbA1c (Bld) [Mass fraction] 4.4 % Critically low 4.5-6.2 [facility] Comment on above: Performed By: #### H CVPCRR #### [facility] [address] [place], [place] [address] Dr. Cyril Hendricks TYPE AND SCREENon 10-02-2021 TYPE AND SCREEN Negative Normal [facility] Comment on above: Performed By: #### H CVPCRR #### [facility] [address] [place], [place] [address] Dr. Cyril Hendricks US PREG PLACENTAon 2 [...] SOFIA KABA Date: 2021-10-02 10:47 Normal [facility] US PREG ANATOMY SINGLEon US PREG [...] (44% by ultrasound, 29% by expected) FL/AC: 0.576851 FL/BPD: 0.345903 HC/AC: 1.040037 GESTATIONAL AGE: Age by EDC: 21 weeks, [...] 09:23-0400 Body temperature 97.88 [degF] Siva Schulte [facility] 02-03-2024 09:23-0400 Diastolic blood pressure 70 mm[Hg] Siva Schulte [facility] 02-03-2024 09:23-0400 Heart rate 85 /min Siva Schulte [facility] 02-03-2024 09:23-0400 Respiratory rate 18 /min Siva Schulte [facility] 02-03-2024 09:23-0400 SaO2% (BldA) [Mass fraction] 99 % Siva Schulte [facility] 02-03-2024 09:23-0400 Systolic blood pressure 106 mm[Hg] Siva Schulte [facility] 09-23-2023 09:16-0400 Body temperature 98.42 [degF] Wil Chandra [facility] 09-23-2023 09:16-0400 Diastolic blood pressure 68 mm[Hg] Wil Chandra [facility] 09-23-2023 09:16-0400 Heart rate 82 /min Wil Chandra [facility] 09-23-2023 09:16-0400 Respiratory rate 18 /min Wil Chandra [facility] 09-23-2023 09:16-0400 SaO2% (BldA) [Mass fraction] 97 % Wil Chandra [facility] 09-23-2023 09:16-0400 Systolic blood pressure 98 mm[Hg] Wil Chandra [facility] 08-27-2023 12:24-0400 Diastolic blood pressure 61 mm[Hg] [facility] 08-27-2023 12:24-0400 Heart rate 77 /min [facility] 08-27-2023 12:24-0400 Mean blood pressure 72 mm[Hg] [facility] 08-27-2023 12:24-0400 Respiratory rate 16 /min [facility] 08-27-2023 12:24-0400 SaO2% (BldA) [Mass fraction] 97 % [facility] 08-27-2023 12:24-0400 Systolic blood pressure 93 mm[Hg] [facility] 08-27-2023 11:30-0400 Diastolic blood pressure 69 mm[Hg] [facility] 08-27-2023 11:30-0400 Heart rate 74 /min [facility] 08-27-2023 11:30-0400 Mean blood pressure 82 mm[Hg] [facility] 08-27-2023 11:30-0400 Respiratory rate 16 /min [facility] 08-27-2023 11:30-0400 SaO2% (BldA) [Mass fraction] 99 % [facility] 08-27-2023 11:30-0400 Systolic blood pressure 107 mm[Hg] [facility] 08-27-2023 10:30-0400 Diastolic blood pressure 62 mm[Hg] [facility] 08-27-2023 10:30-0400 Heart rate 91 /min [facility] 08-27-2023 10:30-0400 Mean blood pressure 77 mm[Hg] [facility] 08-27-2023 10:30-0400 Respiratory rate 18 /min [facility] 08-27-2023 10:30-0400 SaO2% (BldA) [Mass fraction] 100 % [facility] 08-27-2023 10:30-0400 Systolic blood pressure 107 mm[Hg] [facility] 08-27-2023 09:41-0400 Body temperature 98.6 [degF] [facility] 08-27-2023 09:41-0400 Heart rate 80 /min [facility] 01-04-2023 00:03-0400 Body temperature 98.78 [degF] Siva Schulte [facility] 01-04-2023 00:03-0400 Diastolic blood pressure 54 mm[Hg] Siva Schulte [facility] 01-04-2023 00:03-0400 Heart rate 97 /min Siva Schulte [facility] 01-04-2023 00:03-0400 Mean blood pressure 70 mm[Hg] Siva Schulte [facility] 01-04-2023 00:03-0400 Respiratory rate 18 /min Siva Schulte [facility] 01-04-2023 00:03-0400 SaO2% (BldA) [Mass fraction] 94 % Siva Schulte [facility] 01-04-2023 00:03-0400 Systolic blood pressure 102 mm[Hg] Siva Eris [facility] 01-03-2023 23:00-0400 Body temperature 100.04 [degF] Siva Eris [facility] 01-03-2023 23:00-0400 Diastolic blood pressure 62 mm[Hg] Siva Eris [facility] 01-03-2023 23:00-0400 Heart rate 100 /min Siva Eris [facility] 01-03-2023 23:00-0400 Mean blood pressure 75 mm[Hg] Siva Eris [facility] 01-03-2023 23:00-0400 Systolic blood pressure 100 mm[Hg] Siva Eris [facility] 01-03-2023 22:42-0400 Body temperature 100.76 [degF] Siva Eris [facility] 01-03-2023 22:42-0400 Diastolic blood pressure 59 mm[Hg] Siva Eris [facility] 01-03-2023 22:42-0400 Heart rate 105 /min Siva Eris [facility] 01-03-2023 22:42-0400 Respiratory rate 20 /min Siva Eris [facility] 01-03-2023 22:42-0400 SaO2% (BldA) [Mass fraction] 99 % Siva Eris [facility] 01-03-2023 22:42-0400 Systolic blood pressure 96 mm[Hg] Siva Eris [facility] 10-02-2022 21:29-0400 Diastolic blood pressure 72 mm[Hg] PHYSICIAN [facility] 10-02-2022 21:29-0400 Heart rate 94 /min PHYSICIAN NO [facility] 10-02-2022 21:29-0400 Respiratory rate 18 /min PHYSICIAN NO [facility] 10-02-2022 21:29-0400 SaO2% (BldA) [Mass fraction] 98 % PHYSICIAN NO [facility] 10-02-2022 21:29-0400 Systolic blood pressure 141 mm[Hg] PHYSICIAN NO [facility] 10-02-2022 17:03-0400 Body height 170.18 cm PHYSICIAN NO [facility] 10-02-2022 17:03-0400 Body temperature 98.3 [degF] PHYSICIAN NO [facility] 10-02-2022 17:03-0400 Body weight 76.4 kg PHYSICIAN NO [facility] 09-25-2022 13:25-0400 Body height 170.18 cm Viet Yuri Other [employer] Other 09-25-2022 13:25-0400 Body mass index (BMI) [Ratio] 26.62 kg/m2 Viet Welch Other [employer] Other 09-25-2022 13:25-0400 Body temperature 98.2 [degF] Viet Welch Other [employer] Other 09-25-2022 13:25-0400 Body weight 77.11 kg Viet Welch Other [employer] Other 09-25-2022 13:25-0400 Diastolic blood pressure 68 mm[Hg] Viet Welch Other [employer] Other 09-25-2022 13:25-0400 Respiratory rate 18 /min Viet Welch Other [employer] Other 09-25-2022 13:25-0400 SaO2% (BldA) [Mass fraction] 98 % Viet Welch Other [employer] Other 09-25-2022 13:25-0400 Systolic blood pressure 107 mm[Hg] Viet Welch Other [facility] [employer] Other 09-06-2022 13:54-0400 Diastolic blood pressure 72 mm[Hg] Wil Corazon [facility] 09-06-2022 13:54-0400 Heart rate 60 /min Wil Corazon [facility] 09-06-2022 13:54-0400 Respiratory rate 16 /min Wil Corazon [facility] 09-06-2022 13:54-0400 SaO2% (BldA) [Mass fraction] 100 % Wil Corazon [facility] 09-06-2022 13:54-0400 Systolic blood pressure 103 mm[Hg] Wil Corazon [facility] 09-06-2022 11:41-0400 Diastolic blood pressure 65 mm[Hg] Wil Corazon [facility] 09-06-2022 11:41-0400 Heart rate 58 /min Wil Corazon [facility] 09-06-2022 11:41-0400 Mean blood pressure 77 mm[Hg] Wil Corazon [facility] 09-06-2022 11:41-0400 Respiratory rate 16 /min Wil Corazon [facility] 09-06-2022 11:41-0400 SaO2% (BldA) [Mass fraction] 100 % Wil Corazon [facility] 09-06-2022 11:41-0400 Systolic blood pressure 102 mm[Hg] Wil Chandra [facility] 09-06-2022 10:42-0400 Body temperature 98.24 [degF] Wil Chandra [facility] 09-06-2022 10:42-0400 bodymassindex 1.17 Wil Chandra [facility] Comment on above: Result [facility]: [facility] 10:42-0400 Diastolic blood pressure 71 mm[Hg] Wil Chandra [facility] 09-06-2022 10:42-0400 Heart rate 73 /min Wil Chandra [facility] 09-06-2022 10:42-0400 Height/Length Percentile 84.89 Wil Chandra [facility] Comment on above: Result Comment: ^~:!Percentile [facility] 09-06-2022 10:42-0400 Height/Length Z-Score 1.03 Wil Chandra [facility] Comment on above: Result Comment: ^[facility] 09-06-2022 10:42-0400 Respiratory rate 16 /min Wil Chandra [facility] 09-06-2022 10:42-0400 SaO2% (BldA) [Mass fraction] 98 % Wil Chandra [facility] 09-06-2022 10:42-0400 Systolic blood pressure 111 mm[Hg] Wil Chandra [facility] 09-06-2022 10:42-0400 weight 1.47 Wil Chandra [facility] Comment on above: Result Comment: ^[facility] 09-06-2022 10:42-0400 Weight Percentile 92.90 % Wil Chandra [facility] Comment on above: Result Comment: ^~:!Percentile Source -[facility] 08-14-2022 21:30-0500 Diastolic blood pressure 79 mm[Hg] Bob Llanos [facility] 08-14-2022 21:30-0500 Heart rate 87 /min Bob Llanos [facility] 08-14-2022 21:30-0500 Mean blood pressure 93 mm[Hg] Bob Llanos [facility] 08-14-2022 21:30-0500 Nursing Progress Note Reason Other: pt to [place] via stretcher at this time. Bob Llanos [facility] 08-14-2022 21:30-0500 Respiratory rate 16 /min Bob Llanos [facility] 08-14-2022 21:30-0500 SaO2% (BldA) [Mass fraction] 100 % Bob Llanos [facility] 08-14-2022 21:30-0500 Systolic blood pressure 120 mm[Hg] Bob Llanos [facility] 08-14-2022 19:20-0500 Body temperature 98.96 [degF] Bob Llanos [facility] 08-14-2022 19:20-0500 bodymassindex 1.17 Bob Llanos [facility] Comment on above: Result Comment: ^~:!ZScore Source [facility] 08-14-2022 19:20-0500 Diastolic blood pressure 61 mm[Hg] Bob Llanos [facility] 08-14-2022 19:20-0500 Heart rate 98 /min Bob Llanos [facility] 08-14-2022 19:20-0500 Height/Length Percentile 84.91 Bob Llanos [facility] Comment on above: Result Comment: ^~:!Percentile Source [facility] 08-14-2022 19:20-0500 Height/Length Z-Score 1.03 Bob Llanos [facility] Comment on above: Result Comment: ^~:!ZScore [facility] 08-14-2022 19:20-0500 Respiratory rate 16 /min Bob Llanos [facility] 08-14-2022 19:20-0500 SaO2% (BldA) [Mass fraction] 99 % Bob Llanos [facility] 08-14-2022 19:20-0500 Systolic blood pressure 114 mm[Hg] Bob Llanos [facility] 08-14-2022 19:20-0500 weight 1.47 Bob Llanos [facility] Comment on above: Result Comment: ^~:!ZScore [facility] 08-14-2022 19:20-0500 Weight Percentile 92.94 % Bob Llanos [facility] Comment on above: Result Comment: ^~:!Percentile Source - [employer] 06-24-2022 13:30-0500 Body height 170.18 cm Viet Welch Other [employer] Other 06-24-2022 13:30-0500 Body mass index (BMI) [Ratio] 26.62 kg/m2 Viet Welch Other [employer] Other 06-24-2022 13:30-0500 Body temperature 97.8 [degF] Viet Welch Other [employer] Other 06-24-2022 13:30-0500 Body weight 77.11 kg Viet Welch Other [employer] Other 06-24-2022 13:30-0500 Diastolic blood pressure 63 mm[Hg] Viet Welch Other [employer] Other 06-24-2022 13:30-0500 Respiratory rate 18 /min Viet Welch Other [employer] Other 06-24-2022 13:30-0500 SaO2% (BldA) [Mass fraction] 98 % Viet Welch Other [employer] Other 06-24-2022 13:30-0500 Systolic blood pressure 97 mm[Hg] Viet Welch Other [employer] Other 11-13-2021 14:05-0400 Body height 170.18 cm Michael Oneil Other [employer] Other 11-13-2021 14:05-0400 Body mass index (BMI) [Ratio] 26.62 kg/m2 Michael Oneil Other [employer] Other 11-13-2021 14:05-0400 Body temperature 98.4 [degF] Michael Oneil Other [employer] Other 11-13-2021 14:05-0400 Body weight 77.11 kg Michael Oneil Other [employer] Other 11-13-2021 14:05-0400 Respiratory rate 18 /min Michael Oneil Other [employer] Other 11-13-2021 14:05-0400 SaO2% (BldA) [Mass fraction] 98 % Michael Oneil Other [employer] Other 11-06-2021 15:45-0400 Body height Kendra Witt Other [employer] Other 11-06-2021 15:45-0400 Body mass index (BMI) [Ratio] 26.62 kg/m2 Kendra Witt Other [employer] Other 11-06-2021 15:45-0400 Body weight 77.11 kg Kendra Witt Other [employer] Other 11-06-2021 15:45-0400 Respiratory rate 20 /min Kendra Witt Other [employer] Other 11-06-2021 15:45-0400 SaO2% (BldA) [Mass fraction] 98 % Kendra Witt Other [employer] Other Encounters Encounter Date Encounter Type Care Provider Facility Start: 03-01-2024 End: 03-01-2024 ambulatory JUVENAL MIRI Not Available Start: 02-16-2024 End: 02-16-2024 ambulatory GONSALO CORRAL Not Available Start: 02-03-2024 End: 02-03-2024 Emergency department patient visit Siva Schulte [facility] Start: 01-26-2024 End: 01-26-2024 ambulatory JUVENAL MIRI Not Available Start: 12-29-2023 End: 12-29-2023 ambulatory GONSALO ELLIS Not Available Start: 12-22-2023 End: 12-22-2023 ambulatory JUVENAL R [facility] Start: 12-01-2023 End: 12-01-2023 ambulatory JUVENAL MIRI Not Available Start: 11-10-2023 End: 11-10-2023 ambulatory JUVENAL [facility] Start: 10-27-2023 End: 10-27-2023 ambulatory GONSALO CORRAL Not Available Start: 09-29-2023 End: 09-29-2023 ambulatory JUVENAL RAMIREZO Not Available Start: 09-23-2023 End: 09-23-2023 Emergency department patient visit Wil Corazon [facility] Start: 09-04-2023 End: 09-04-2023 ambulatory JUVENAL THORPE Not Available Start: 08-27-2023 End: 08-27-2023 Emergency department patient visit Emily Browningyusef [facility] Start: 08-18-2023 End: 08-18-2023 ambulatory SELAM ELSA Facility:[facility] Start: 01-03-2023 End: 01-04-2023 Emergency department patient visit Siva Schulte [facility] Start: 12-12-2022 End: 12-12-2022 ambulatory Kenneth Lina Other [employer] Other Start: 12-12-2022 Telephone encounter Kenneth Lina [facility] [place] Start: 10-02-2022 End: 10-02-2022 Emergency department patient visit Jose Silverman Facility:[facility] Start: 10-02-2022 End: 10-02-2022 Emergency department patient visit PHYSICIAN SJ LERNER [facility] Work Phone: Start: 09-25-2022 End: 09-25-2022 ambulatory Viet Welch Other [employer] Other Start: 09-25-2022 Office outpatient visit 15 minutes Viet Welch [facility] Start: 09-06-2022 End: 09-06-2022 Emergency department patient visit Wil Chandra [facility] Start: 08-14-2022 End: 08-14-2022 Emergency department patient visit Bob Llanos [facility] Start: 07-11-2022 End: 07-11-2022 ambulatory ROSEANN CORRAL Facility:[facility] Start: 06-24-2022 End: 06-24-2022 ambulatory Viet Welch Other [employer] Other Start: 06-24-2022 Office outpatient visit 15 minutes Viet Welch [facility] Start: 01-11-2022 End: 01-11-[address] NIEVES LISTED REQUEST Facility:[facility] Start: 01-07-2022 End: 01-09-2022 Evaluation and management of inpatient DR RENATA GEORGES Facility:[facility] Start: 12-29-2021 End: 12-29-[address] JUVENAL THORPE Facility:[facility] Start: 12-19-2021 End: 12-19-[address] JUVENAL THORPE Facility:[facility] Start: 12-12-2021 End: 12-13-2021 ambulatory [facility] Start: 12-12-2021 End: 12-12-2021 Subsequent hospital visit by physician SSUI De La Paz Start: 11-27-2021 End: 11-27-[address] SOFIA KABA Facility:[facility] Start: 11-13-2021 End: 11-13-2021 ambulatory Michael Oneil Other [employer] Other Start: 11-13-2021 Office outpatient visit 15 minutes Michael Oneil [facility] Start: 11-06-2021 End: 11-06-2021 ambulatory Kendra Witt Other [employer] Other Start: 11-06-2021 Office outpatient visit 25 minutes Kendra Witt [facility] Start: 10-23-2021 End: 10-24-[address] [...] identified in Urine by Culture Urine Culture [facility] Start: 02-07-2022 Influenza vaccination Flu vaccine (# 1) [facility] Start: 01-09-2022 End: 01-09-2022 Patient encounter procedure 01/09/2022 Routine Perinatology [facility] Start: 01-02-2022 End: 01-02-2022 Patient encounter procedure 01/02/2022 Routine Perinatology [facility] Start: 12-26-2021 End: 12-26-2021 Patient encounter procedure 12/26/2021 Routine Perinatology [facility] Start: 12-20-2021 End: 12-20-2021 Patient encounter procedure 12/20/2021 Routine Perinatology [facility] Start: 2021 DTaP/Tdap/Td vaccine (1 - Tdap) DTaP/Tdap/Td vaccine (1 - Tdap) [facility] Start: 2020 Hepatitis C screening Hepatitis C sc reen [facility] Start: 2018 Screening for Chlamy nazanin trachomatis Chlamydia screen [facility] Start: 2017 HIV screening HIV screen [facility] [employer] Start: 2014 Depression Monitoring Depression Mon itoring [facility] [employer] Start: 2013 HPV vaccine (1 - 2-d ose series) HPV vaccine (1 - 2-dose series) [facility] [employer] Start: 09-16-2007 COVID-19 Vaccine (1) COVID-19 Vaccin e (1) [facility] Start: 09-16-2003 Varicella vaccine (1 of 2 - 2-dose childhood series) Varicella vaccine (1 of 2 - 2-dose childhood series) [facility] Patient Education Depression, Adult ED [facility] Work Phone: Patient referral [facility] Work Phone: End: 12-12-2021 Sjogrens syndrome-A extractable nuclear antibody [facility] Work Phone: Comment on above: Once for 1 Occurrenc es starting 12/12/2021 until 12/12/2021 End: 12-12-2021 Sjogrens syndrome-B extractable nuclear antibody [facility] Work Phone: Comment on above: Once for 1 Occurrenc es starting 12/12/2021 until 12/12/2021 Immunizations Immunization Date Immunization Notes Care Provider Simona galarza NEGATED: Highlighted row has not occurred!11-05-2019 influenza, injectable, quadrivalent, contains preservative Kendra Witt Other [employer] Other NEGATED: Highlighted row has not occurred!04-10-2019 influenza virus vaccine, unspecified formulation Bob Llanos [facility] Payers Date Payer Category Payer Self-pay [id number] 2002 Unknown [id number] 2.16. [id number] 2002 Unknown [id number] 2.16.84 0.1.848958.3.579.2.593 2002 Unknown [id number] 2.16.84 0.1.727381.3.579.2.593 2002 Unknown [id number] 2.16.84 0.1.291451.3.579.2.593 2002 Unknown [id number] 2.16.84 0.1.378532.3.579.2.593 2002 Unknown [id number] 2.16.84 0.1.075205.3.579.2.593 2002 Unknown [id number] 2.16.84 0.1.776164.3.579.2.593 2002 Unknown [id number] 2.16.84 0.1.992276.3.579.2.593 2002 Unknown [id number] 2.16.84 0.1.411210.3.579.2.593 2002 Unknown [id number] 2.16.84 0.1.261176.3.579.2.593 2002 Unknown [id number] 2.16.84 0.1.208440.3.579.2.593 2002 Unknown [id number] 2.16.84 0.1.989996.3.579.2.593 2002 Unknown [id number] 2.16.8 40.1.175140.3.579.2.1286 2002 Unknown [id number] 2.16.8 40.1.710156.3.579.2.1286 2002 Unknown [id number] 2.16.8 40.1.000333.3.579.2.1286 2002 Unknown [id number] 2.16.8 40.1.483075.3.579.2.727 2002 Unknown [id number] 2.16.8 40.1.631834.3.579.2.727 2002 Unknown [id number] 2.16.8 40.1.250580.3.579.2.727 2002 Unknown [id number] 2.16.8 40.1.253985.3.579.2.727 2002 Unknown [id number] 2.16.8 40.1.825702.3.579.2.727 2002 Unknown [id number] 2.16.84 0.1.209170.3.579.2.1259 2002 Unknown [id number] 2.16.84 0.1.162706.3.579.2.9 2002 Unknown [id number] 2.16.84 0.1.871274.3.579.2.9 2002 Unknown [id number] 2.16.84 0.1.314413.3.579.2.9 2002 Unknown [id number] 2.16.84 0.1.317678.3.579.2.9 2002 Unknown [id number] 2.16.84 0.1.405215.3.579.2.9 2002 Unknown [id number] 2.16.84 0.1.946614.3.579.2.9 2002 Unknown [id number] 2.16.84 0.1.688242.3.579.2.1259 1959 Unknown [id number] 2.1 6.840.1.935018.19 1959 Unknown [id number] Unknown [id number] 2.16.8 40.1.683754.3.579.2.531 Social History Date Type Detail Facility Sex Assigned At [facility] Start: 11-28-2021 Tobacco smoking stat [facility] Never smoked tobacco [employer] Phone: Start: 11-28-2021 Tobacco use and exposure Smokeless tobacco non-user [employer] Phone: Start: 12-12-2021 Alcohol intake Ex-drinker (finding) [employer] [employer] Work Phone: Start: 12-12-2021 Tobacco Comment no longer vapes [employer] Phone: Start: 04-21-2021 [facility] [employer] Work Phone: Start: 2002 Sex Assigned At Not on file [facility] [employer] Work Phone: Tobacco Current vaping o r e-cigarette use Smokeless Tobacco Use:. Vaping [facility] Tobacco smoking status No Smokin g Status Entered [facility] Start: 10-02-2022 Tobacco smoking stat us NVIS Smoker (finding) [facility] Start: 2002 Sex Assigned At Female F [facility] Functional Status Date Assessment Result Facility 02-03-2024 Functional Status N/A [facility] 09-23-2023 Functional Status N/A [facility] 08-27-2023 Functional Status N/A [facility] 01-03-2023 Functional Status N/A [facility] 09-06-2022 Functional Status N/A [facility] 08-14-2022 Functional Status N/A [facility] Clinical Notes 11-06-2021 to 02-03-2024 Note Date & Type Note Facility 02-03-2024 Evaluation + Plan note Extrac ruby from: Title:ED Note Author:Duc Swanson PA-C te:02/03/24 Sore throat (J02.9: Acute ph aryngitis, unspecified) Viral URI (J06.9: Acute upper respiratory infection, unspecified) Orders: Group A Strep by PCR Rapid Strep w/rfx Diagnostic Tests Pending * Group A Strep by PCR 02/03/24 [facility] 08-27-2024 Hospital Discharge instructions Patient Education [...] medicines to help relieve symptoms, such as: Ngck-ohz-fuadgeu cold medicines. Cough suppressants. Coughing is a [...] and other clear broths. General instructions Take jemx-tzx-ronxmur and prescription medicines only as told by [...] and water are not available, use hand maintenance plumber. Avoid touching your mouth, face, eyes, or [...] provider. Document Revised: 12/26/2021 Document Reviewed: 12/26/2021 [employer] Patient Education 2022 [employer]. Follow Up Care 02/03/2024 09:23:13 With:Juvenal THORPE Address: [address] , [place] [address]- Business (1) When:02/06/2024 11:12:27 With:SELAM HUNTER Address: [address] [place] [address] Business (1) When:02/06/2024 11:12:21 [facility] 08-27-2024 NoteED Patient Education Note Infectious [...] to help relieve symptoms, such as: ? Jpgg-eqz-ewffife cold medicines. ? Cough suppressants. Coughing is [...] other clear broths. General instructions ? Take kurz-eia-efiliyq and prescription medicines only as told by [...] soap and water are not available,use hand maintenance plumber. ? Avoid touching your mouth, face, eyes, [...] Mood. These symptoms m (more content not included)...[facility] 09-23-2023 Hospital Discharge instructions Patient Education [...] provider. Document Revised: 02/19/2021 Document Reviewed: 02/19/2021 [employer] Patient Education 2022 [facility]. Follow Up Care 09/23/2023 09:11:45 With:Juvenal THORPE Address: [address] [place] [place] [address] Business (1) When:09/26/2023 11:44:07 [facility]03-20-2024 Hospital Discharge instructions Patient Education 08/27/2023 [...] provider. Document Revised: 01/09/2022 Document Reviewed: 01/09/2022 [employer] Patient Education 2022 [facility]. 08/27/2023 12:34:16 Urinary Tract Infection, Adult, Tscs-xp-Wgev Urinary Tract Infection, Adult A urinary tract [...] Follow these instructions at home: Medicines Take hvij-yfu-cojzoeq and prescription medicines only as told by [...] provider. Document Revised: 01/05/2021 Document Reviewed: 01/05/2021 [employer] Patient Education 2022 [employer]. 08/27/2023 12:34:16 Subchorionic Hematoma Subchorionic Hematoma A [...] provider. Document Revised: 02/19/2021 Document Reviewed: 02/19/2021 [employer] Patient Education 2022 [facility]. Follow Up Care 08/27/2023 09:39:16 With:Juvenal THORPE Address: [address] [place] [place] [address] Business (1) When:08/30/2023 12:05:10 With:SELAM HUNTER Address: [facility] [place] [address] Business (1) When:Within 3 Day(s) [facility]03-20-2024 Evaluation + Plan noteExtracted from: Title:ED [...] day(s), # 28 cap(s), Refills(s) 0, Pharmacy: [id number], 170, cm, 08/27/23 9:49:00 EDT, Height/Length Dosing, 78.7, kg, 08/27/23 9:49:00 EDT, Weight Dosing ABO/Rh Basic Metabolic Panel Beta hCG Quantitative CBC w/ Auto Diff eGFR Extra Blue Tube Extra SST Tube UA with Cult Rflx Urine Culture US 1st Trimester US Transvaginal Diagnostic Tests Pending * Urine Culture 08/27/23 [facility]07-29-2023 Hospital Discharge instructions Patient Education 01/04/2023 00:13:01 Pharyngitis, Nbta-zm-Odja Pharyngitis Pharyngitis is a sore throat (pharynx). [...] Follow these instructions at home: Medicines Take ifxw-vvq-aettedy and prescription medicines only as told by [...] and water are not available, use hand maintenance plumber. Do not touch your eyes, nose, or [...] provider. Document Revised: 08/22/2021 Document Reviewed: 08/22/2021 [employer] Patient Education 2022 [employer]. Follow Up Care 01/03/2023 22:32:55 With:Thony Carl Address: [address] [place] [address] [place] [address] [facility] (1) When:01/06/2023 Comments:Follow-up with your primary care provider in 3 to 5 days. If symptoms worsen, do not improve, or new symptoms arise please report back to emergency department for further evaluation. [facility]07-28-2023 Evaluation + Plan noteExtracted from: Title:ED [...] q12hr, # 20 cap(s), Refills(s) 0, Pharmacy: [facility], 170, cm, 01/03/23 22:44:00 [...] Diff eGFR Hepatic Function Panel Lipase Level [facility]04-19-2023 Evaluation note* Encounter Date Diagnosis Assessment [...] of symptoms occur by end of treatment. [employer] Other 03-31-2023 Hospital Discharge instructions Patient Education [...] Follow these instructions at home: Medicines Take coze-ezv-lliarrh and prescription medicines only as told by [...] important. Where to find more information [employer] [employer]: www.acog.org [place] [...] Document Reviewed: 07/01/2017 [employer] Patient Education 2019 [employer]. Follow Up Care 09/06/2022 10:42:16 With:Juvenal THORPE Address: [address] [place] [address]- Business (1) When:09/09/2022 13:46:05 [facility]03-09-2023 Hospital Discharge instructions Patient Education 08/14/2022 22:12:46 Abdominal Pain During , Bunq-hp-Lipq Abdominal Pain During Belly (abdominal) pain is [...] keep your pee (urine) pale yellow. Take ccxc-jax-lksrutr and prescription medicines only as told by [...] 05/14/2010 Document Revised: 09/13/2019 Document Reviewed: 08/28/2017 [employer] Patient Education 2020 [employer]. 08/14/2022 22:12:46 Abdominal Pain, Adult, Xlda-wm-Cyis Abdominal Pain, Adult Many things can cause belly (abdominal) pain. Most times, belly pain is not dangerous. Many cases of belly pain can be watched and treated at home. Sometimes, though, belly pain is serious. Your doctor will try to find the cause of your belly pain. Follow these instructions at home: Medicines Take jtmz-dvq-qgbzaii and prescription medicines only as told by [...] your belly pain for any changes. Take jqql-ojz-kgfuypn and prescription medicines only as told by [...] 11/11/2008 Document Revised: 10/04/2019 Document Reviewed: 10/04/2019 [employer] Patient Education 2020 [employer]. Follow Up Care 08/14/2022 18:41:38 With:Juvenal THORPE Address: [address] , [place] [address]- Business (1) When:08/17/2022 Comments:Follow-up with Dr. Thorpe for further evaluation of your . With:Juventino Carbajal Address: [address] [place] [id number]- When:08/17/2022 Comments:Follow-up with your primary care provider in 3 to 5 days. If symptoms worsen, do not improve, or new symptoms arise please report back to emergency department for further evaluation. [facility]01-16-2023 Evaluation note* Encounter Date Diagnosis Assessment [...] return precautions. Jun, Cough (ICD-10 - R05.9) [employer] Other 06-07-2022 Evaluation note* Encounter Date Diagnosis [...] Pt understood and agreed to tx plan. [facility] [employer] Other [id number] Evaluation note* Encounter Date Diagnosis Assessment Notes [...] condition October, Sore throat (ICD-10 - J02.9) [facility] [employer] Other Evaluation + Plan note No data available for this section [facility] assessment information available [facility] Work Phone: Evaluation noteNo InformationNortFox [facility] [employer] Other History general Narrative - Reported* Type Description Date Medical History fx lt elbow at age 7 Surgical History surgical repair of left elbow f racture at age 7 Hospitalization History see surgical hx [facility] [employer] Other Progress note No data available for this section [facility] Summary Purpose Family History No Family [...] section and content) DATE CREATED AUTHOR 01/05/2022 [facility] DATE CREATED AUTHOR AUTHOR'S ORGANIZ ATION 07/15/2022 [facility] DATE CREATED AUTHOR AUTHOR'S ORGANIZ ATION 10/10/2022 [facility] DATE CREATED AUTHOR AUTHOR'S ORGANIZ ATION 12/26/[address] [facility] DATE CREATED AUTHOR AUTHOR'S ORGANIZ ATION 02/05/2024 [facility] DATE CREATED AUTHOR AUTHOR'S ORGANIZ ATION 02/06/2024 [facility] DATE CREATED AUTHOR AUTHOR'S ORGANIZ ATION 03/03/2024 [facility] [employer] Care Teams (unrecognized sec tion and content) Personnel Name: ELSA VELEZ SELAM J Address: Address: [address] [place] [address] Team Status: Active Member Role Status Dates [...] BE BASED ON THE PRIMARY CLINICAL RECORDS. [facility], [facility]. provides no warranty or guarantee of the accuracy or completeness of information in this document.
[2024-03-15 13:09] VITALS: BP 114/60; PULSE 73
== END 2024-03-15 13:51 | disposition home or self-care (01) ==
LOC: US 07:20 → FBC 12:37
PROVIDERS: Visit Provider Obstetrics & Gynecology
DX: O43.113 Circumvallate placenta, third trimester (principal); Z3A.35 35 weeks gestation of pregnancy
CPT/HCPCS: 76818; 76820

== ENCOUNTER 2024-03-18 06:58 | Outpatient (OUT) | payer OTHER, SELFPAY ==
--- OUTSIDE RECORDS SUMMARY | 2024-03-18 07:02 | XMS_ITS | CCD ---
Author Organization [facility] Inform ion [facility] Care Team Providers Care Sausage Canner Name Role Phone Kendra Witt Unavailable Michael Oneil Unavailable Unavailable Primary Care Provider JUAQUIN Amos Referring Unavailable MIRI, DR NEAL Consulting Unavailable REQUEST, NONE LISTED Primary Care Unavaila ble MIRI, DR NEAL Attending Unavailable MIRI, DR NEAL Admitting Unavailable REQUEST, NONE LISTED Primary Care Unavaila ble MRII, DR NEAL Attending Unavailable MIRI, DR NEAL [...] Unavailable ZIEBER, DR MARS Mccarthy Consulting Unavailable YORK, DR SOFIA Hull Consulting Unavailable REQUEST, NONE [...] Mills Unavailable SELAM HUNTER Primary Care Physician [phone] JUVENAL THORPE Referring Unavailable JUANITO PABLO Attending [...] THORPE Attending Unavailable GONSALO CORRAL Attending Unavailable MIRI, JUVENAL Attending Unavailable ELLIS GONSALO Attending Unavailable JUVENAL THORPE Attending Unavailable ELLIS, GONSALO Attending Unavailable Allergies Allergy Classification Reported Allergen(s) Allergy Type Date of Onset Reaction(s) Facility (1 source) No Known Medication Allergies; Translations: [No Known Medication Allergies] Propensity to adverse reactions (disorder) [facility] Medications Current Medications Medication Drug [...] day(s), # 28 cap(s), Refills(s) 0, Pharmacy: [facility], 170, cm, 08/27/23 9:49:00 EDT, Height/Length Dosing, 78.7, kg, 08/27/23 9:49:00 EDT, Weight Dosing Start Date: 08/27/23 Stop Date: 09/03/23 Status: Ordered Start: 01-03-2023 take 1 capsule by [facility] every twelve hours Keflex 500 mg Cap 500 mg = 1 cap(s), Oral, q12hr, # 20 cap(s), Refills(s) 0, Pharmacy: [facility], 170, cm, 01/03/23 22:44:00 EDT, Height/Length Dosing, 75.3, kg, 01/03/23 22:44:00 EDT, Weight Dosing Start Date: 01/03/23 Status: Ordered Citalopram (2 sources) Serotonin Reuptake Inhibitor Citalopram Hydrobromide Active dexamethasone 1 mg/ml / neomycin 3.5 mg/ml / polymyxin b 57371 unt/ml ophthalmic suspension (2 sources) Aminoglycoside Antibacterial, Polymyxin-class Antibacterial, Corticosteroid Start: 09-26-19 take 1 drop(s) into the eye(s) four times daily Maxitrol 3.5-47480-1.1 1 drop into affected eye Ophthalmic Four [...] 3 hrs for 2 days Jun, Active [place] (No Known Home Meds) (1 source) Start: 06-26-2021 [place] (No Known Home Meds) Active June 26, [...] Nausea/Vomiting, # 12 tab(s), Refills(s) 0, Pharmacy: [facility], 170, cm, 01/03/23 22:44:00 EDT, Height/Length Dosing, 75.3, kg, 01/03/23 22:44:00 EDT, Weight Dosing Start Date: 01/03/23 Status: Ordered Start: 06-09-2019 take 1 tablet by faby th three times daily Zofran ODT 4 mg Tab-Dis 4 mg = 1 tab(s), Oral, TID, # 15 tab(s), Refills(s) 0, Pharmacy: [facility] Start Date: 06/09/19 [...] take 450 mg by mouth twice daily [place] Carbonate Discontinued 450 MG PO Twice daily [...] Grp A Strp Intrl Ctrl Pass Normal [facility] Comment on above: Order Comment: Order Added on by Discern Rule. Performed By: #### 1 [id number] #### [facility] [address] [place] [address] S. pyogenes DNA ALFREDO+probe Ql (Throat) Negative Normal [facility] Comment on above: Order Comment: Order Added on by Discern Rule. Result Comment: Test ing performed using DNA amplification. Performed By: #### 1 [id number] #### [facility] [address] [place] [address] ED Clinical Summaryon 2023 ED Clinical Summary ED Clinical Summary [address] [place] [id number] ED Clinical Summary Person Information Name: KAILYN ACKERMAN [facility] Age: 23 Years : 2000 Sex: Female Language: Romanian PCP: SELAM HUNTER CNP Marital Status: Single Phone: [phone] Visit Id: Visit Reason: Headache; Body aches; [...] 02/03/2024 11:17:23 02/03/2024 11:17:23 02/03/2024 11:17:23 ADDRESS: [address] [place] [phone] PHYS DOC NOTES: MEDICAL INFORMATION: Prescriptions Given: [...] Follow up: With: Address: When: Juvenal THORPE [facility], [address] [place] [address] [place] [address] Business (1) In 3 days 02/06/2024 With: Address: When: [place] [address] Business (1) In 3 days 02/06/2024 DIAGNOSIS: Sore throat; Viral URI Normal [facility] ED Note-Physicianon 08-27-20 24 ED Note-Physician ED [...] URI and will continue to follow-up with BRIM POUNCER MACHINE OPERATOR for further evaluation and management. [...] prescription medications Follow-up With When Contact Information Juvenalmagdiel THORPE In 3 days 02/06/2024 (more content not included)... Normal [facility] Comment on above: Result Comment: Elec tronically Signed By: Duc Swanson PA-C\.br\Date and Time Signed: 02/03/24 13:23 EDT\.br\Electronically Co-Signed By: Siva Schulte DO\.br\Date and Time Co-Signed: 02/03/24 14:44 EDT ED Patient Summaryon 024 ED Patient Summary ED Patient Summary [address] [address] Patient Discharge Instructions Person Information Name: KAILYN ACKERMAN Age: 23 Years Arrival Date: 02/03/2024 09:21:41 Discharge Diagnosis: Sore throat; Viral URI Primary Care Physician: SELAM HUNTER CNP Provider Information Primary Provider: Siva Schulte DO Advanced Mastic Sprayer:Duc Swanson PA-C The exam and treatment you received in the Emergency Department were for an urgent problem and are not intended as complete care. It is important that you follow up with a doctor, nurse practitioner, or physician?s cement tester assistant for ongoing care. If your symptoms [...] Follow-up Instructions: With: Address: When: Juvenal THORPE [facility], [address] [place] [address] [place] [address] Business (1) In 3 days 02/06/2024 With: Address: When: [place] [address] Business (1) In 3 days 02/06/2024 In the event that this physician does not participate in your insurance network, please consult with your insurance company to find a nearby participating provider. Patient Education Materials: Upper Respiratory Infection, Adult A MESSAGE TO ALL PATIENTS REGARDING OPIOIDS PRESCRIPTION OPIOIDS: WHAT YOU NEED TO KNOW Prescription opioids can be used to help relieve xpsjrqto-sn-ipzswv pain and are often prescribed following a [...] of op (more content not included)... Normal [facility] MICRO OTHER TESTSOrdered By: Nita Delgadillo on 02-03-2024 S. pyogenes Ag IA.rapid Ql (Throat) Negative (02/03/24 11:07 AM) Normal Negative [facility] Sero MICRO OTHER TESTSOrdered By: Asuncion Goncalves on 02-03-2024 Rapid COV Int NEG Ctl Pass (02/03/24 9:30 AM) Normal [facility] Sero Rapid COV Int POS Ctl Pass (02/03/24 9:30 AM) Normal [facility] Sero SARS-CoV+SARS-CoV-2 (COVID-19) Ag IA.rapid Ql (Resp) Not Detected 1 (02/03/24 9:30 AM) Normal Not Detected [facility]ero Comment on above: Interpretive Data: [employer] Porter + Sail Veritor System for Rapid Detection of SARS-CoV-2 [...] other viruses or pathogens; and, in the [facility], this test is only authorized for [...] Comment on above: Performed By: #### 2 [id number] #### [facility] [address] [place] [address] Rapid COV Int POS Ctl Pass Normal [facility] Comment on above: Performed By: #### 2 [id number] #### [facility] [address] [place] [address] SARS-CoV+SARS-CoV-2 (COVID-19) Ag IA.rapid Ql (Resp) Not detected Normal Not Detected [facility] Comment on above: Result Comment: The Porter + Sail Veritor? System for Rapid Detection of SARS-CoV-2 [...] or revoked sooner. Performed By: #### 2 [id number] #### [facility] [address] [place] [address] Rapid Strep w/rfxon 02-03-20 24 S. pyogenes Ag IA.rapid Ql (Throat) Negative Normal Negative [facility] Comment on above: Performed By: #### 2 [id number] #### [facility] [address] [place] [address] ED Note-Physicianon 09-26-19 24 ED Note-Physician Basic [...] than 90,000. Ultrasound was obtained discussed with crown and bridge technician. Intrauterine consistent with stated gestational age. Stable heart rate. Patient continues to demonstrate subchorionic hematoma. Also left-sided ovarian cyst similar to previous. Results were discussed with the patient. She is discharged home to continue pelvic rest and follow-up with BRIM POUNCER MACHINE OPERATOR. Patient was encouraged to return [...] Juvenal THORPE In 3 days 09/26/[address] , [place] [address]- Business (1) Additional Instructions: Patient Education Subchorionic [...] made to ensure accuracy, however, inadvertently computerized sports instructor mistakes may be present. Appropriate healthcare PPE [...] Yes., 04/10/2019 Lab Results Beta hCG Qnt: 80362 mIU/mL High (09/23/23 09:28:00) Diagnostic Results No qualifying data available. Normal [facility] Comment on above: Result Comment: Elec tronically Signed By: MandieVenkat jones PA-C\.br\Date and Time Signed: 09/23/23 11:45 EDT\.br\Electronically Co-Signed By: Wil Chandra DO\.br\Date and Time Co-Signed: 09/26/23 07:37 EDT [facility] Quanton 09-23-2023 [place] [address] m[IU]/mL High 1-3 [facility] Comment on above: Result Comment: 'F N ON < 1 - 3' ' 0.2 - 1 WEEK = 5 TO 50' ' 1 - 2 WEEKS = 50 - 500' ' 2 - 3 WEEKS = 100 - 5000' ' 3 - 4 WEEKS = 500 - 95395' ' 4 - 5 WEEKS = 1000 - 87734' ' 5 - 6 WEEKS = 75766 - 716068' ' 6 - 8 WEEKS = 59243 - 470960' ' 8 - 12 WEEKS = 19579 - 930192' Performed By: #### 2 [id number] ####[facility] [address] [place] [address] CHEMISTRYOrdered By: SYSTEM SYSTEM on 09-23-2023 [place] [address] m[IU]/mL High 1 - 3 mIU/mL [facility] Comment on above: Result Comment: 'F N ON < 1 - 3' ' 0.2 - 1 WEEK = 5 TO 50' ' 1 - 2 WEEKS = 50 - 500' ' 2 - 3 WEEKS = 100 - 5000' ' 3 - 4 WEEKS = 500 - 10442' ' 4 - 5 WEEKS = 1000 - 90978' ' 5 - 6 WEEKS = 66830 - 498994' ' 6 - 8 WEEKS = 70693 - 819574' ' 8 - 12 WEEKS = 95903 - 114623' Consent for Treatmenton 09-07 Consent for Treatment [id number]#1.00TIFF Normal [facility] Discharge Instructionson Discharge Instructions [id number]#1.00TIFF Normal [facility] ED Clinical Summaryon 2023 ED Clinical Summary [address] [address] ED Clinical Summary Person Information Name: KAILYN ACKERMAN [facility] Age: 23 Years : 2000 Sex: Female Language: Romanian PCP: NONE, XXXX Marital Status: Single Phone: [phone] MRN: Visit Id: Visit Reason: Back pain; [...] 09/23/2023 11:52:16 09/23/2023 11:52:16 09/23/2023 11:52:16 ADDRESS: [address] [place] [phone] PHYS DOC NOTES: MEDICAL INFORMATION: Prescriptions Given: [...] Hematoma Follow up: With: Address: [facility] [address] [place] [address] [place] [address] Business (1) In 3 days 09/26/2023 DIAGNOSIS: Other antepartum hemorrhage, unspecified trimester; Subchorionic bleed; Vaginal bleeding in Normal [facility] ED Patient Education Noteon 09-23-2023 ED [...] provider. Document Revised: 02/19/2021 Document Reviewed: 02/19/2021 [employer] Patient Education ? 2022 [employer] Normal [facility] ED Patient Summaryon 024 ED Patient Summary [place] [address] Patient Discharge Instructions Person Information Name: KAILYN ACKERMAN Age: 23 Years Arrival Date: 09/23/2023 09:10:07 Discharge Diagnosis: Other antepartum hemorrhage, unspecified trimester; Subchorionic bleed; Vaginal bleeding in Primary Care Physician: NONE, XXXX Provider Information Primary Provider: Wil Chandra DO Advanced Mastic Sprayer:Venkat Leal PA-C The exam and treatment you received in the Emergency Department were for an urgent problem and are not intended as complete care. It is important that you follow up with a doctor, nurse practitioner, or physician?s cement tester assistant for ongoing care. If your symptoms [...] Follow-up Instructions: With: Address: When: Juvenal THORPE [facility], [address] [place] [address] , [place] [address] Business (1) In 3 days 09/26/2023 In the event that this physician does not participate in your insurance network, please consult with your insurance company to find a nearby participating provider. Patient Education Materials: Subchorionic Hematoma A MESSAGE TO ALL PATIENTS REGARDING OPIOIDS PRESCRIPTION OPIOIDS: WHAT YOU NEED TO KNOW Prescription opioids can be used to help relieve wonbftjw-gr-vswpxj pain and are often prescribed following a [...] p (more content not included)... [facility] Prescriptions/Work Noteson 0 09-23-2023 Prescriptions/Work Notes [id number]#1.00TIFF Normal [facility] US 1st Trimesteron 09-23-2023 1st Trimester Exam [...] least 66% of the gestational sac circumference. [place] Rump Length: 3.2 cm, which corresponds Composite [...] Size = Dates Uterus Position Anteverted Normal [facility] C Urineon 08-29-2023 Bacteria identified Cx [...] R1: [facility], [address] [place] [address], [address]- , , Normal [facility] Comment on above: Performed By: #### 4 [id number] ####[place] [id number] [place] [address] ABO/Rhon 08-27-2023 ABO/Rh Positive Invalid Interpretation Code [facility] Comment on above: Performed By: #### 2 [id number] ####[facility] [address] [place] [address] BLOOD BANKOrdered By: Liza Xaiver on 08-27-2023 ABO/Rh Interp Positive Invalid Interpretation Code [facility] BB Subsection BMPon 08-27-2023 Anion gap [Moles/Vol] 11 mmol/L Normal 6-16 [facility] Comment on above: Performed By: #### 1 [id number], [id number], [id number] ####[facility] [address] [place] [address] Calcium [Mass/Vol] 9.3 mg/dL Normal 8.9-11.1 [facility] Comment on above: Performed By: #### 1 [id number], 8799356, 1958402 ####[facility] [address] [place] [address] Chloride [Moles/Vol] 104 mmol/L Normal 101-111 [facility] Comment on above: Performed By: #### 1 7953929, 7982628, 3030412 ####[facility] [address] [place] [address] CO2 [Moles/Vol] 24 mmol/L Normal 21-31 [facility] Comment on above: Performed By: #### 1 2449129, 3240285, 1010747 ####[facility] [address] [place] [address] Creatinine [Mass/Vol] 0.6 mg/dL Normal 0.5-1.3 [facility] Comment on above: Performed By: #### 1 3817494, 0512883, 7804066 ####[facility] [address] [place] [address] Glucose [Mass/Vol] 87 mg/dL Normal 55-199 [facility] Comment on above: Performed By: #### 1 [id number], 3650082, 0437344 ####[facility] [address] [place] [address] Potassium [Moles/Vol] 3.7 mmol/L Normal 3.5-5.3 [facility] Comment on above: Performed By: #### 1 0398376, 7806305, 8314314 ####[facility] [address] [place] [address] Sodium [Moles/Vol] 135 mmol/L Normal 135-145 [facility] Comment on above: Performed By: #### 1 7254738, 6043399, 0004787 ####[facility] [address] [place] [address] Urea nitrogen [Mass/Vol] 8 mg/dL Normal 5-21 [facility] Comment on above: Performed By: #### 1 3474846, 2508455, 7632070 ####[facility] [address] [place] [address] Urea nitrogen/Creatinine [Mass ratio] 13 No Units Normal 10-20 [facility] Comment on above: Performed By: #### 1 3615039, 1632886, 6687729 ####[facility] [address] [place] [address] BhCG Quanton 08-27-2023 [place] [address] m[IU]/mL High 1-3 [facility] Comment on above: Result Comment: 'F N ON < 1 - 3' ' 0.2 - 1 WEEK = 5 TO 50' ' 1 - 2 WEEKS = 50 - 500' ' 2 - 3 WEEKS = 100 - 5000' ' 3 - 4 WEEKS = 500 - 06042' ' 4 - 5 WEEKS = 1000 - 16310' ' 5 - 6 WEEKS = 99384 - 583995' ' 6 - 8 WEEKS = 84687 - 343191' ' 8 - 12 WEEKS = 77058 - 990204' Performed By: #### 2 096425 ####[facility] [address] [place] [address] CBC w/ Auto Diffon 4 Basophils/100 WBC (Bld) 0.6 % Normal 0.0-2.0 [facility] Comment on above: Performed By: #### 1 6055999, 6130504, 8638083 ####[facility] [address] [place] [address] Basophils/Leukocytes Auto (Bld) [Pure # fraction] 0.0 E9/L Normal 0.0-0.2 [facility] Comment on above: Performed By: #### 1 [id number], 0032678, 5099092 ####[address] [address] Eosinophils (Bld) [#/Vol] 0.1 E9/L Normal 0.0-0.5 [facility] Comment on above: Performed By: #### 1 5265256, 8531306, 2917180 ####[address] [address] Eosinophils/100 WBC (Bld) 2.0 % Normal 0.0-8.0 [facility] Comment on above: Performed By: #### 1 1521108, 6545575, 6436078 ####[address] [address] Erythrocyte distribution width (RBC) [Ratio] 15.0 % High 10.9-14.2 [facility] Comment on above: Performed By: #### 1 0431056, 4507848, 2964736 ####[place] [address] Hematocrit (Bld) [Volume fraction] 37.4 % Normal 34.0-46.0 [facility] Comment on above: Performed By: #### 1 6721050, 8745051, 7855952 ####[address] [address] Hemoglobin (Bld) [Mass/Vol] 12.7 g/dL Normal 12.0-16.0 [facility] Comment on above: Performed By: #### 1 3548079, 2745455, 7664566 ####[address] [address] Lymphocytes (Bld) [#/Vol] 2.0 E9/L Normal 1.0-4.0 [facility] Comment on above: Performed By: #### 1 5291333, 2645566, 4900757 ####[address] [address] Lymphocytes/100 WBC (Bld) 28.1 % Normal 14.0-50.0 [facility] Comment on above: Performed By: #### 1 0780544, 8608124, 2124400 ####[address] [address] MCH (RBC) [Entitic mass] 28.4 pg Normal 27.0-34.0 [facility] Comment on above: Performed By: #### 1 0822865, 7277413, 1391730 ####[address] [address] MCHC (RBC) [Mass/Vol] 33.8 g/dL Normal 31.4-36.[address] [facility] Comment on above: Performed By: #### 1 2923930, 6885785, 7679005 ####[place] [address] MCV (RBC) [Entitic vol] 84.0 fL Normal 80.0-100.0 [facility] Comment on above: Performed By: #### 1 3208167, 4436499, 7219050 ####[place] [address] Monocytes (Bld) [#/Vol] 0.5 E9/L Normal 0.2-1.0 [facility] Comment on above: Performed By: #### 1 2356951, 8109270, 3687875 ####[address] [address] Neutrophils (Bld) [#/Vol] 4.5 E9/L Normal 2.0-7.5 [facility] Comment on above: Performed By: #### 1 4621686, 6296947, 1372425 ####[address] [address] Neutrophils/100 WBC (Bld) 61.9 % Normal 36.0-75.0 [facility] Comment on above: Performed By: #### 1 7229135, 2091103, 1512147 ####[facility] [address] [place] [address] Platelet mean volume (Bld) [Entitic vol] 7.9 fL Normal 6.4-10.8 [facility] Comment on above: Performed By: #### 1 7773522, 1752337, 8254511 ####[address] [address] Platelets (Bld) [#/Vol] 252.0 E9/L Normal 150.0-500.0 [facility] Comment on above: Performed By: #### 1 3780923, 7332654, 8976489 ####[address] [address] RBC (Bld) [#/Vol] 4.5 E12/L Normal 4.3-5.9 [facility] Comment on above: Performed By: #### 1 2868189, 1904128, 3227012 ####[address] [address] WBC corrected for nucl RBC Auto (Bld) [#/Vol] 7.2 E9/L Normal 4.0-11.0 [facility] Comment on above: Performed By: #### 1 7461529, 1117647, 9020777 ####[address] [address] CHEMISTRYOrdered By: SYSTEM SYSTEM on 08-27-2023 Anion [...] 199 mg/[place] [address] m[IU]/mL High 1 - 3 mIU/mL [facility] Comment on above: Result Comment: 'F N ON < 1 - 3' ' 0.2 - 1 WEEK = 5 TO 50' ' 1 - 2 WEEKS = 50 - 500' ' 2 - 3 WEEKS = 100 - 5000' ' 3 - 4 WEEKS = 500 - 63901' ' 4 - 5 WEEKS = 1000 - 72664' ' 5 - 6 WEEKS = 36428 - 086568' ' 6 - 8 WEEKS = 91202 - 621455' ' 8 - 12 WEEKS = 99275 - 210247' Potassium [Moles/Vol] 3.7 mmol/L Normal 3.5 - 5.3 mmol/L [facility] Sodium [Moles/Vol] 135 mmol/L Normal 135 - 145 mmol/L [facility] Urea nitrogen [Mass/Vol] 8 mg/dL Normal 5 - 21 mg/d L [facility] Urea nitrogen/Creatinine [Mass ratio] 13 mg/mg Normal 10 - 20 [facility] Consent for Treatmenton 08-08 Consent for Treatment [id number] Normal [facility] Discharge Instructionson Discharge Instructions [id number] Normal [facility] ED Clinical Summaryon 2023 ED Clinical Summary [place] [id number] ED Clinical Summary Person Information Name: KAILYN ACKERMAN [facility] Age: 22 Years : 2000 Sex: Female Language: Romanian PCP: SELAM HUNTER CNP Marital Status: Single Phone: [phone] MRN: Visit Id: Visit Reason: Vaginal bleeding [...] 08/27/2023 12:34:16 08/27/2023 12:34:16 08/27/2023 12:34:16 ADDRESS: [address] [place] [phone] PHYS DOC NOTES: MEDICAL INFORMATION: Prescriptions Given: Medications to Continue Taking That Have Changed [facility], [address] [place], [place] [id number], [phone] START: cephalexin (Keflex 500 mg Cap) 1 [...] Urinary Tract Infection; Urinary Tract Infection, Adult, Jwot-kk-Ucrz; Subchorionic Hematoma Follow up: With: Address: When: Juvenal THORPE [facility], [address] [place] [address] [place] [address] Business (1) In 3 days 08/30/2023 With: Address: When: [place] [address] Business (1) In 3 days DIAGNOSIS: Other antepartum hemorrhage, unspecified trimester; Subchorionic bleed; UTI (urinary tract infection) during ; Vaginal bleeding in Normal [facility] ED Note-Physicianon 08-27-19 24 ED Note-Physician Basic Information Time Seen: [place] [...] and Complexity of Problems Differential Diagnosis: [] [facility] Data External documents reviewed: [] My [...] day(s), # 28 cap(s), Refills(s) 0, Pharmacy: [facility], 170, cm, 08/27/23 9:49:00 EDT, Height/Length [...] Juvenal THORPE In 3 days 08/30/[address] , [place] [address]- Business (1) Additional Instructions: SELAM HUNTER In 3 days [address] [place] [address]- Business (1) Additional Instructions: Patient Education and Urinary Tract Infection Urinary Tract Infection, Adult, Yfii-xu-Yzen Subchorionic Hematoma Attestation Patient seen and evaluated by the physician cement tester assistant. Attending physician was present in the emergency department and s (more content not included)... Normal [facility] Comment on above: Result Comment: Elec [...] provider. Document Revised: 01/09/2022 Document Reviewed: 01/09/2022 [employer] Patient Education ? 2022 QA on Request. Urinary Tract Infection, Adult A urinary tract [...] swelling (inflammation) (more content not included)... Normal [facility] ED Patient Summaryon 024 ED Patient Summary [place] [id number] Patient Discharge Instructions Person Information Name: KAILYN ACKERMAN Age: 22 Years Arrival Date: 08/27/2023 09:37:12 Discharge Diagnosis: Other antepartum hemorrhage, unspecified trimester; Subchorionic bleed; UTI (urinary tract infection) during ; Vaginal bleeding in Primary Care Physician: SELAM HUNTER CNP Provider Information Primary Provider: Emily Harper M.D. Advanced Mastic Sprayer:None The exam and treatment you received in the Emergency Department were for an urgent problem and are not intended as complete care. It is important that you follow up with a doctor, nurse practitioner, or physician?s cement tester assistant for ongoing care. If your symptoms become worse or you do not improve as expected and you are unable to reach your usual health care provider, you should return to the Emergency Department. We are available 24 hours a day. KAILYN ACKERMAN has been given the following list of patient education materials, prescriptions and follow-up instructions: Follow-up Instructions: With: Address: When: Juvenal MIRI[address] [place] [place] [address] Business (1) In 3 days 08/30/2023 With: Address: When: SELAM HUNTER [address] [place] [address] [place] [address] Business (1) In 3 days In the event that this physician does not participate in your insurance network, please consult with your insurance company to find a nearby participating provider. Patient Education Materials: and Urinary Tract Infection; Urinary Tract Infection, Adult, Bvwh-cy-Tqsg; Subchorionic Hematoma A MESSAGE TO ALL PATIENTS REGARDING OPIOIDS PRESCRIPTION OPIOIDS: WHAT YOU NEED TO KNOW Prescription opioids can be used to help relieve hcypjwvq-wt-exqbpp pain and are often prescribed following a [...] toilet, follo (more content not included)... Normal [facility] HEMATOLOGYOrdered By: SYSTEM SYSTEM on 08-27-2023 [...] Rflxon 08-27-19 Color (U) Light-Yellow Normal Yellow [facility] Comment on above: Result Comment: Micr oscopic readings are only performed on those samples that meet specific criteria set forth by [facility]. Performed By: #### 4 [id number], [id number] ####[facility] [address] [place] [address] Glucose (U) [Mass/Vol] Negative Normal Negative Fi [facility] Comment on above: Performed By: #### 4 [id number], [id number] ####[facility] [address] [place] [address] Ketones Ql (U) Negative Normal Negative [facility] Comment on above: Performed By: #### 4 [id number], [id number] ####[facility] [address] [place] [address] UA Blood 3+ Abnormal Negative [facility] Comment on above: Performed By: #### 4 [id number], [id number] ####[facility] [address] [place] [address] UA Bacteria 1+ [id number] Abnormal Trace [facility] Comment on above: Performed By: #### 4 [id number], [id number] ####[facility] [address] [place] [address] UA Clarity Turbid Abnormal Clear [facility] Comment on above: Performed By: #### 4 [id number], [id number] ####[facility] [address] [place] [address] UA Hyal Cast 0-3 Normal 0-3 [facility] Comment on above: Performed By: #### 4 [id number], [id number] ####[address] [address] UA Leuk Est 250 Stefania/uL Abnormal Negative [facility] Comment on above: Performed By: #### 4 [id number], [id number] ####[facility] [address] [place] [address] UA Mucous Trace Normal Negative [facility] Comment on above: Performed By: #### 4 [id number], [id number] ####[place] [address] UA Nitrite Negative Normal Negative [facility] Comment on above: Performed By: #### 4 [id number], [id number] ####[place] [address] UA pH 5.5 Invalid Interpretation Code 5.0-9.0 [facility] Comment on above: Performed By: #### 4 [id number], [id number] ####[place] [address] UA Protein 1+ mg/dL Abnormal Negative [facility] Comment on above: Performed By: #### 4 [id number], [id number] ####[place] [address] UA RBC 4-20 Abnormal 0-3 [facility] Comment on above: Performed By: #### 4 [id number], [id number] ####[facility] [address] [place] [address] UA Spec Grav 1.018 Invalid Interpretation Code 1.005-1.030 [facility] Comment on above: Performed By: #### 4 [id number], [id number] ####[facility] [address] [place] [address] UA Squam Epithelial 3-4 Abnormal 0-2 [facility] Comment on above: Performed By: #### 4 [id number], [id number] ####[facility] [address] [place] [address] UA Urobilinogen Negative Normal Negative [facility] Comment on above: Performed By: #### 4 [id number], [id number] ####[facility] [address] [place] [address] UA WBC 6-15 Abnormal 0-5 [facility] Comment on above: Performed By: #### 4 [id number], [id number] ####[facility] [address] [place] [address] Urobilinogen (U) [Mass/Vol] Negative Normal Negative [facility] Comment on above: Performed By: #### 4 [id number], [id number] ####[facility] [address] [place] [address] UA Spec Desc Clean Catch [facility] Comment on above: Performed By: #### 4 [id number], [id number] ####[facility] [address] [place] [address] URINALYSISOrdered By: SYSTEM SYSTEM on 08-27-2023 Color (U) Light-Yellow 1 (08/27/23 9:55 AM) Normal Yellow [facility] UA Auto SS Comment on above: Interpretive Data: M icroscopic readings are only performed on those samples that meet specific criteria set forth by [facility]. Glucose (U) [Mass/Vol] Negative Normal [...] Reason for Exam: Other (please specify) Report [facility] [phone] IMPRESSION: Single live intrauterine with estimated sonographic [...] heart rate is measured at 120 bpm. [place]-rump length 4.77 mm. Estimated sonographic gestational age [...] Report No adnexal masses. Ordering Provider: Hudson Rilye FINAL REPORT Dictated: 08/27/2023 12:31 pm Zach Deng MD Signed (Electronic Signature): 08/27/2023 12:31 pm Signed by: Zach Deng MD Transcribed by: KIRK Technologist: SHELLEY Technical Comments LMP : 07/10/2023 Regular History 4 Para 1 Transabdominal Ultrasound Performed Transvaginal Ultrasound Performed FHR (bpm) 120 Normal [facility] US Transvaginalon 08-27-2023 US Transvaginal Exam Date/Time: 08/27/2023 11:55 EDT Reason for Exam: Other (please specify) Report [facility] [phone] Please see ultrasound pelvis, for report of transvaginal examination. Ordering Provider: Hudson Riley FINAL REPORT Dictated: 08/27/2023 12:33 pm Zach Deng MD Signed (Electronic Signature): 08/27/2023 12:33 pm Signed by: Zach Deng MD Transcribed by: KIRK Technologist: SHELLEY Normal [facility] eGFRon 08-27-2023 eGFR 131 mL/min/1.73 m2 Normal >=59 [facility] Comment on above: Order Comment: Order added by Discern Expert. Performed By: #### 1 [id number], [id number], [id number] ####[id number] [place] [address] [facility] Quanton 08-19-2023 HCG.beta subunit Qn 4261 m[IU]/mL High 1-3 [facility] Comment on above: Result Comment: 'F N ON < 1 - 3' ' 0.2 - 1 WEEK = 5 TO 50' ' 1 - 2 WEEKS = 50 - 500' ' 2 - 3 WEEKS = 100 - 5000' ' 3 - 4 WEEKS = 500 - 05930' ' 4 - 5 WEEKS = 1000 - 00777' ' 5 - 6 WEEKS = 55187 - 611996' ' 6 - 8 WEEKS = 20767 - 498883' ' 8 - 12 WEEKS = 95801 - 828508' Performed By: #### 2 [id number] ####[facility] [address] [place] [address] Physician Orderon 08-19-2023 Physician Order [id number] Normal [facility] CHEMISTRYOrdered By: Juancho benitez on 01-03-2023 [...] 3.5 mmol/L Normal 3.5 - 5.3 mmol/L FT Remisol Protein [Mass/Vol] 7.0 g/dL Normal 6.0 - 7.8 gm/dL [facility] Remisol Sodium [Moles/Vol] 136 mmol/L Normal 135 - 145 mmol/L [facility] Remisol Urea nitrogen [Mass/Vol] 10 mg/dL Normal 5 - 21 mg/d L [facility] Remisol Urea nitrogen/Creatinine [Mass ratio] 12 mg/mg Normal 10 - 20 [facility] Remisol CHEMISTRYOrdered By: SYSTEM SYSTEM on 01-03-2023 GFR/1.73 sq M.predicted among non-blacks MDRD (S/P/Bld) [Vol rate/Area] 108 mL/min/1.73 m2 Normal >=59mL/min/1 .73 m2 [facility] Chem S HCG.beta subunit Qn [...] 16.9 E9/L High 4.0 - 11.0 E9/L [facility] - Microbiology an d Antimicrobial susceptibilityOrdered By: Asuncion Goncalves on 01-03-2023 Bacteria identified Cx Nom (U) No growth to date Continuing incubation [facility] MICRO OTHER TESTSOrdered By: Juancho Fitch [...] Interpretation Code Negative [facility] UA Auto SS [place].plasma/[place].R BC (Bld) [Mass ratio] 0-3 /HPF Normal 0-3/HPF [facility] UA Au to SS Nitrite Ql (U) Negative (01/03/23 10:52 PM) Normal Negative [facility] UA Auto SS pH (U) 6.5 *NA* (01/03/23 10:52 PM) Invalid Interpretation Code 5.0 - 9.0 [facility] UA Auto SS Protein (U) [Mass/Vol] Negative (01/03/23 10:52 PM) Normal Negative [facility] UA Auto SS Specific gravity (U) [Rel density] 1.020 *NA* (01/03/23 10:52 PM) Invalid Interpretation Code 1.005 - 1.030 [facility] UA Auto SS UA Spec Desc Clean Catch (01/03/23 10:52 PM) Normal [facility] UA Auto SS Urobilinogen Qn (U) 1.2567355 {Georgina'U}/dL Normal 0.0 - 1.0 EU/dL FT UA Auto SS WBC Auto Ql (U) 1+ *ABN* (01/03/23 10:52 PM) Invalid Interpretation Code Negative [facility] UA Auto SS WBC LM.HPF (Urine sed) [#/Area] 6-15 /HPF Invalid Interpretation Code 0-5/HPF [facility] UA Auto SS Alanine aminotransferase [En zymatic activity/volume] in Serum or PlasmaOrdered By: Jose Silverman on 10-02-2022 ALT [Catalytic activity/Vol] 13 U/L Normal 7-52 [facility] Comment on above: Performed By: #### C BC, CMP, ETOH #### [facility] [address] [place] [address] [place] Albumin [Mass/volume] in Ser um or Plasma by Bromocresol green (BCG) dye binding methoOrdered By: Jose Silverman on 10-02-2022 Albumin BCG dye [Mass/Vol] 5.0 g/dL 3.5-5.7 [facility] Alkaline phosphatase [Enzyma tic activity/volume] in Serum or PlasmaOrdered By: Jose Silverman on 10-02-2022 ALP [Catalytic activity/Vol] 69 U/L Normal 34-104 [facility] Comment on above: Performed By: #### C BC, CMP, ETOH #### [facility] [address] [place] [address] [place] Amphetamine Screen Ql (U)Ord ered By: Jose Silverman on 10-02-2022 Amphetamines Ql (U) Negative Negative [facility] Aspartate aminotransferase [ Enzymatic activity/volume] in Serum or PlasmaOrdered By: Jose Silverman on 10-02-2022 AST [Catalytic activity/Vol] 21 U/L Normal 13-39 [facility] Comment on above: Performed By: #### C BC, CMP, ETOH #### [address] Automated basophil %Ordered By: Jose Silverman on 10-02-2022 Basophils/100 WBC (Bld) 0.5 % Normal . [facility] Comment on above: Performed By: #### C BC, CMP, ETOH #### [address] Automated basophil countOrde red By: Jose Silverman on 10-02-2022 Basophils (Bld) [#/Vol] 0.1 10*3/uL Normal 0.0-0.2 [facility] Comment on above: Result Comment: PERF ORMED BY: [place] [address] PATHOLOGIST WORKFORCE SPECIALIST ASHELY CAREY M.D. Performed By: #### C BC, CMP, ETOH #### [address] Automated blood monocyte cou ntOrdered By: Jose Silverman on 10-02-2022 Monocytes (Bld) [#/Vol] 0.7 10*3/uL Normal 0.0-0.8 [facility] Comment on above: Performed By: #### C BC, CMP, ETOH #### [address] Automated eosinophil %Ordere d By: Jose Silverman on 10-02-2022 Eosinophils/100 WBC (Bld) 2.0 % Normal . [facility] Comment on above: Performed By: #### C BC, CMP, ETOH #### [address] Automated eosinophil countOr dered By: Jose Silverman on 10-02-2022 Eosinophils (Bld) [#/Vol] 0.3 10*3/uL Normal 0.0-0.45 [facility] Comment on above: Performed By: #### C BC, CMP, ETOH #### [address] Automated erythrocytes count in urine sediment (number/area)Ordered By: Jose Silverman on 10-02-2022 RBC Auto (Urine sed) [#/Area] 0-1 [HPF] 0-4 [facility] Automated leukocytes count i n urine sediment (number/area)Ordered By: Jose Silverman on 10-02-2022 WBC Auto (Urine sed) [#/Area] 10-19 [HPF] 0-4 [facility] Automated monocyte %Ordered By: Jose Silverman on 10-02-2022 Monocytes/100 WBC (Bld) 5.7 % Normal . [facility] Comment on above: Performed By: #### C BC, CMP, ETOH #### [facility] [address] Automated neutrophil %Ordere d By: Jose Silverman on 10-02-2022 Neutrophils/100 WBC (Bld) 68.7 % Normal . [facility] Comment on above: Performed By: #### C BC, CMP, ETOH #### [facility] [address] Barbiturates [Presence] in U rine by Screen methodOrdered By: Jose Silverman on 10-02-2022 Barbiturates Screen Ql (U) Negative Negative [facility] Benzodiazepines Screen Ql (U )Ordered By: Jose Silverman on 10-02-2022 Benzodiazepines Ql (U) Negative Negative [facility] Benzoylecgonine [Presence] i n Urine by Screen methodOrdered By: Jose Silverman on 10-02-2022 Benzoylecgonine Screen Ql (U) Negative Negative [facility] Bilirubin Test strip Ql (U)O rdered By: Jose Silverman on 10-02-2022 Bilirubin Ql (U) Negative Negative [facility] Bilirubin.total [Mass/volume ] in Serum or PlasmaOrdered By: Jose Silverman on 10-02-2022 Bilirubin [Mass/Vol] 0.3 mg/dL Normal 0.3-1.0 [facility] Comment on above: Performed By: #### C BC, CMP, ETOH #### [facility] [address] Calcium [Mass/volume] in Ser um or PlasmaOrdered By: Jose Silverman on 10-02-2022 Calcium [Mass/Vol] 9.6 mg/dL Normal 8.6-10.3 [facility] Comment on above: Performed By: #### C BC, CMP, ETOH #### [facility] [address] [place] [id number] [place] Cannabinoids [Presence] in U rine by Screen methodOrdered By: Jose Silverman on 10-02-2022 Cannabinoids Screen Ql (U) Negative Negative [facility] Comment on above: These are unconfirme d results and should not be used for legal purposes. Drug Cut-Off Concentration: AMPH 1000 ng/mL MIAH 200 ng/mL AYAN 200 ng/mL COCM 300 ng/mL OP 300 ng/mL PCP 25 ng/mL THC 20 ng/mL Carbon dioxide, total [Moles /volume] in Serum or PlasmaOrdered By: Jose Silverman on 10-02-2022 CO2 [Moles/Vol] 27.2 mmol/L Normal 21.0-31.0 [facility] Comment on above: Performed By: #### C BC, CMP, ETOH #### [facility] [address] [place] [address] [place] Chloride [Moles/volume] in S brian or PlasmaOrdered By: Jose Silverman on 10-02-2022 Chloride [Moles/Vol] 101 mmol/L Normal 98-107 [facility] Comment on above: Performed By: #### C BC, CMP, ETOH #### [facility] [address] [place] [address] [place] Color Auto (U)Ordered By: Loli Silverman on 10-02-2022 Color (U) Yellow Yellow [facility] Complete Blood Count Auto Di ffon 10-02-2022 Mean Corpuscular HGB Conc 32.0 g/dL Normal 32.0-35.0 [facility] Comment on above: Performed By: #### C BC, CMP, ETOH #### [facility] [address] [place] [address] [place] Monocytes/100 WBC (Bld) 17.72 % Normal 0.00-20.00 [facility] Comment on above: Performed By: #### C BC, CMP, ETOH #### [facility] [address] NRBC% 0.0 /100{WBC} Normal 0-0.5 [facility] Comment on above: Performed By: #### C BC, CMP, ETOH #### [facility] [address] Comprehensive Metabolic Pane tung 10-02-2022 Albumin [Mass/Vol] 5.0 g/dL Normal 3.5-5.7 [facility] Comment on above: Performed By: #### C BC, CMP, ETOH #### [address] Creatinine Clr Calc Pharmacy 107.48 Normal [facility] Comment on above: Result Comment: PERF ORMED BY: [place] [address] PATHOLOGIST WORKFORCE SPECIALIST ASHELY CAREY M.D. Performed By: #### C BC, CMP, ETOH #### [address] GFR/1.73 sq M.predicted MDRD (S/P/Bld) [Vol rate/Area] mL/min/{1.73_m2} Normal [facility] Comment on above: Performed By: #### C BC, CMP, ETOH #### [address] Creatinine [Mass/volume] in Serum or PlasmaOrdered By: Jose Silverman on 10-02-2022 Creatinine [Mass/Vol] 0.89 mg/dL Normal 0.60-1.20 [facility] Comment on above: Performed By: #### C BC, CMP, ETOH #### [place] [address] [place] Dipstick and Microscopicon 0 10-02-2022 Appearance (U) Clear Normal Clear [facility] Comment on above: Order Comment: Name Collection Type:: Clean-Voided Midstream Performed By: #### U RDS, ADDONUAPLUS, CUU, UHCG #### [facility] [address] [place] [address] [place] Bacteria,Urine 2+ High None Seen [facility] Comment on above: Order Comment: Name Collection Type:: Clean-Voided Midstream Performed By: #### U RDS, ADDONUAPLUS, CUU, UHCG #### [facility] [address] [place] [address] [place] Bilirubin,Urine Negative Normal Negative [facility] Comment on above: Order Comment: Name Collection Type:: Clean-Voided Midstream Performed By: #### U RDS, ADDONUAPLUS, CUU, UHCG #### [facility] [address] [place] [address] Color (U) Yellow Normal Yellow [facility] Comment on above: Order Comment: Name Collection Type:: Clean-Voided Midstream Performed By: #### U RDS, ADDONUAPLUS, CUU, UHCG #### [facility] [address] [place] [address] Glucose Ql (U) Normal Normal Normal [facility] Comment on above: Order Comment: Name Collection Type:: Clean-Voided Midstream Performed By: #### U RDS, ADDONUAPLUS, CUU, UHCG #### [facility] [address] [place] [address] Hyaline Casts,Urine 0-8 Normal 0-8 [facility] Comment on above: Order Comment: Name Collection Type:: Clean-Voided Midstream Performed By: #### U RDS, ADDONUAPLUS, CUU, UHCG #### [facility] [address] [place] [address] [place] Ketones Ql (U) Negative Normal Negative [facility] Comment on above: Order Comment: Name Collection Type:: Clean-Voided Midstream Performed By: #### U RDS, ADDONUAPLUS, CUU, UHCG #### [facility] [address] [place] [address] Leukocyte esterase Test strip Ql (U) 3+ High Negative [facility] Comment on above: Order Comment: Name Collection Type:: Clean-Voided Midstream Performed By: #### U RDS, ADDONUAPLUS, CUU, UHCG #### [facility] [address] [place] [address] [place] Nitrite,Urine Negative Normal Negative [facility] Comment on above: Order Comment: Name Collection Type:: Clean-Voided Midstream Performed By: #### U RDS, ADDONUAPLUS, CUU, UHCG #### [place] [address] [place] Occult Blood,Urine Negative Normal Negative [facility] Comment on above: Order Comment: Name Collection Type:: Clean-Voided Midstream Performed By: #### U RDS, ADDONUAPLUS, CUU, UHCG #### [address] pH (U) 6.5 [pH] Normal 5.0-9.0 [facility] Comment on above: Order Comment: Name Collection Type:: Clean-Voided Midstream Performed By: #### U RDS, ADDONUAPLUS, CUU, UHCG #### [address] Protein,Urine Negative Normal Negative [facility] Comment on above: Order Comment: Name Collection Type:: Clean-Voided Midstream Performed By: #### U RDS, ADDONUAPLUS, CUU, UHCG #### [place] [address] [place] RBC LM.HPF (Urine sed) [#/Area] 0 /[HPF] Normal 0-4 [facility] Comment on above: Order Comment: Name Collection Type:: Clean-Voided Midstream Performed By: #### U RDS, ADDONUAPLUS, CUU, UHCG #### [place] [address] [place] Specificy Satin,Urine 1.021 Normal 1.001-1.030 [facility] Comment on above: Order Comment: Name Collection Type:: Clean-Voided Midstream Performed By: #### U RDS, ADDONUAPLUS, CUU, UHCG #### [place] [address] [place] Squamous Epithelial Cell,Urine 10-19 High 0-2 [facility] Comment on above: Order Comment: Name Collection Type:: Clean-Voided Midstream Performed By: #### U RDS, ADDONUAPLUS, CUU, UHCG #### [facility] [address] [place] [address] Urobilinogen,Urine Normal Normal Normal [facility] Comment on above: Order Comment: Name Collection Type:: Clean-Voided Midstream Performed By: #### U RDS, ADDONUAPLUS, CUU, UHCG #### [facility] [address] [place] [address] [place] WBC,Urine 10-19 High 0-4 [facility] Comment on above: Order Comment: Name Collection Type:: Clean-Voided Midstream Performed By: #### U RDS, ADDONUAPLUS, CUU, UHCG #### [facility] [address] [place] [address] Drug Screen,Urineon 10-03-19 23 Amphetamine Screen,Urine Negative Normal Negative [facility] Comment on above: Performed By: #### U RDS, ADDONUAPLUS, CUU, UHCG #### [facility] [address] [place] [address] [place] Barbiturate Screen,Urine Negative Normal Negative [facility] Comment on above: Performed By: #### U RDS, ADDONUAPLUS, CUU, UHCG #### [facility] [address] [place] [address] [place] Benzodiazepines Screen,Urine Negative Normal Negative [facility] Comment on above: Performed By: #### U RDS, ADDONUAPLUS, CUU, UHCG #### [facility] [address] [place] [address] [place] Cannabinoid Screen,Urine Negative Normal Negative [facility] Comment on above: Result Comment: Thes e are unconfirmed results and should not be used for legal purposes. Drug Cut-Off Concentration: AMPH 1000 ng/mL MIAH 200 ng/mL AYAN 200 ng/mL COCM 300 ng/mL OP 300 ng/mL PCP 25 ng/mL THC 20 ng/mL PERFORMED BY: [address] [place] [address] PATHOLOGIST WORKFORCE SPECIALIST ASHELY CAREY M.D. Performed By: #### U RDS, ADDONUAPLUS, CUU, UHCG #### [address] Cocaine Screen,Urine Negative Normal Negative [facility] Comment on above: Performed By: #### U RDS, ADDONUAPLUS, CUU, UHCG #### [address] Opiate Screen,Urine Negative Normal Negative [facility] Comment on above: Performed By: #### U RDS, ADDONUAPLUS, CUU, UHCG #### [address] Phencyclidine Screen,Urine Negative Normal Negative [facility] Comment on above: Performed By: #### U RDS, ADDONUAPLUS, CUU, UHCG #### [address] Erythrocyte distribution wid th [Ratio] by Automated countOrdered By: Jose Silverman on 10-02-2022 Erythrocyte distribution width (RBC) [Ratio] 15.8 % High 11.9-15.3 [facility] Comment on above: Performed By: #### C BC, CMP, ETOH #### [address] Erythrocytes [#/volume] in B lood by Automated countOrdered By: Jose Silverman on 10-02-2022 RBC (Bld) [#/Vol] 5.31 10*6/uL High 3.60-5.00 [facility] Comment on above: Performed By: #### C BC, CMP, ETOH #### [address] Ethanol [Mass/volume] in Ser um or PlasmaOrdered By: Jose Silverman on 10-02-2022 Ethanol [Mass/Vol] mg/dL Normal [facility] Comment on above: Performed By: #### C BC, CMP, ETOH #### [address] [place] [address] [place] Ethanol [Mass/Vol] TNP [facility] Comment on above: Test not performed Ethyl Alcohol Profileon 09-08 Percent Ethanol Not performed Normal [facility] Comment on above: Result Comment: PERF ORMED BY: [place] [address] PATHOLOGIST WORKFORCE SPECIALIST ASHELY CAREY M.D. Performed By: #### C BC, CMP, ETOH #### [place] [address] [place] Glucose [Mass/volume] in Ser um or PlasmaOrdered By: Jose Silverman on 10-02-2022 Glucose [Mass/Vol] 98 mg/dL Normal 70-100 [facility] Comment on above: ADA recommended refe rence rangeRandom Glucose Reference Range is dependent on time and content of last meal. Glucose of more than 200 mg/dL in a nonstressed, ambulatory subject supports the diagnosis of Diabetes Mellitus. Result Comment: [place] om Glucose Reference Range is dependent on time and content of last meal. Glucose of more than 200 mg/dL in a nonstressed, ambulatory subject supports the diagnosis of Diabetes Mellitus. ADA recommended reference range Performed By: #### C BC, CMP, ETOH #### [address] HCG ( test) IA.rapi d Ql (U)Ordered By: Jose Silverman on 10-02-2022 HCG ( test) Ql (U) [facility] [place] HCG,Urineon 10-02-2022 Beta HCG ( test) Ql (U) Negative Normal [facility] [place] [facility] Comment on above: Order Comment: Name Collection Type:: Clean-Voided Midstream Result Comment: PERF ORMED BY: [place] [address] PATHOLOGIST WORKFORCE SPECIALIST ASHELY CAREY M.D. Performed By: #### U RDS, ADDONUAPLUS, CUU, UHCG #### [place] [id number] [facility] Hematocrit [Volume Fraction] of Blood by Automated countOrdered By: Jose Silverman on 10-02-2022 Hematocrit (Bld) [Volume fraction] 41.7 % Normal 34.0-46.4 [facility] [place] [facility] Comment on above: Performed By: #### C BC, CMP, ETOH #### [address] Hemoglobin [Mass/volume] in BloodOrdered By: Jose Silverman on 10-02-2022 Hemoglobin (Bld) [Mass/Vol] 13.3 g/dL Normal 11.8-15.4 [facility] [place] Comment on above: Performed By: #### C BC, CMP, ETOH #### [address] Ketones Auto test strip (U) [Mass/Vol]Ordered By: Jose Silverman on 10-02-2022 Ketones (U) [Mass/Vol] Negative Negative [facility] - UrinalysisOrder ed By: Jose Silverman on 10-02-2022 Hyaline casts LM Ql (Urine sed) 0-8 [LPF] 0-8 [facility] [place] [facility] Leukocytes [#/volume] correc ruby for nucleated erythrocytes in Blood by Automated counOrdered By: Jose Silverman on 10-02-2022 WBC corrected for nucl RBC Auto (Bld) [#/Vol] 12.9 10*3/uL 3.8-11.6 [facility] [place] Leukocytes [#/volume] in Blo od by Automated countOrdered By: Jose Silverman on 10-02-2022 WBC (Bld) [#/Vol] 12.9 10*3/uL High 3.8-11.6 [facility] Comment on above: Performed By: #### C BC, CMP, ETOH #### [place] [address] [place] Lymphocytes [#/volume] in Bl ood by Automated countOrdered By: Jose Silverman on 10-02-2022 Lymphocytes (Bld) [#/Vol] 3.0 10*3/uL Normal 1.00-4.8 [facility] [place] Comment on above: Performed By: #### C BC, CMP, ETOH #### [address] Lymphocytes/100 leukocytes i n Blood by Automated countOrdered By: Jose Silverman on 10-02-2022 Lymphocytes/100 WBC (Bld) 23.1 % Normal . [facility] [place] [facility] Comment on above: Performed By: #### C BC, CMP, ETOH #### [facility] [address] MCH [Entitic mass] by Automa ruby countOrdered By: Jose Silverman on 10-02-2022 MCH (RBC) [Entitic mass] 25.2 pg Normal 24.7-34.3 [facility] [place] Comment on above: Performed By: #### C BC, CMP, ETOH #### [facility] [address] [place] [address] MCHC Auto (RBC) [Mass/Vol]Or dered By: Jose Silverman on 10-02-2022 MCHC (RBC) [Mass/Vol] 32.0 g/dL 32.0-35.0 [facility] MCV [Entitic volume] by Auto mated countOrdered By: Jose Silverman on 10-02-2022 MCV (RBC) [Entitic vol] 78.5 fL Low 80-100 [facility] Comment on above: Performed By: #### C BC, CMP, ETOH #### [address] Monocyte distribution width [Entitic volume] in Blood by AutomatedOrdered By: Jose Silverman on 10-02-2022 Monocyte distribution width Auto (Bld) [Entitic vol] 17.72 % 0.00-20.00 [facility] [place] [facility] Neutrophils [#/volume] in Bl ood by Automated countOrdered By: Jose Silverman on 10-02-2022 Neutrophils (Bld) [#/Vol] 8.9 10*3/uL High 1.8-7.7 [facility] [place] Comment on above: Performed By: #### C BC, CMP, ETOH #### [address] Nitrite Test strip Ql (U)Ord ered By: Jose Silverman on 10-02-2022 Nitrite Ql (U) Negative Negative [facility] [place] [facility] No Panel InformationOrdered By: Jose Silverman on 10-02-2022 Estimated GFR (CKD-EPI) > 60.0 mL/Min [facility] [place] [facility] Creatinine Clearance (Chem 107.48 [facility] [place] [facility] Nucleated erythrocytes [Pres ence] in Blood by Automated countOrdered By: Jose Silverman on 10-02-2022 Nucleated RBC Auto Ql (Bld) 0.0 /100{WBC} 0-0.5 [facility] [place] [facility] Opiates [Presence] in Urine by Screen methodOrdered By: Jose Silverman on 10-02-2022 Opiates Screen Ql (U) Negative Negative [facility] Phencyclidine Screen Ql (U)O rdered By: Jose Silveramn on 10-02-2022 Phencyclidine Ql (U) Negative Negative [facility] Platelet mean volume [Entiti c volume] in Blood by Automated countOrdered By: Jose Silverman on 10-02-2022 Platelet mean volume (Bld) [Entitic vol] 7.7 fL Normal 6.3-10.7 [facility] [place] [facility] Comment on above: Performed By: #### C BC, CMP, ETOH #### [facility] [address] [place] [address] [place] Platelets [#/volume] in Bloo d by Automated countOrdered By: Jose Silverman on 10-02-2022 Platelets (Bld) [#/Vol] 342 10*3/uL Normal 150-450 [facility] [place] [facility] Comment on above: Performed By: #### C BC, CMP, ETOH #### [facility] [address] [place] [address] [place] Potassium [Moles/volume] in Serum or PlasmaOrdered By: Jose Silverman on 10-02-2022 Potassium [Moles/Vol] 3.8 mmol/L Normal 3.5-5.1 [facility] Comment on above: Performed By: #### C BC, CMP, ETOH #### [facility] [address] [place] [id number] [place] Protein Auto test strip (U) [Mass/Vol]Ordered By: Jose Silverman on 10-02-2022 Protein (U) [Mass/Vol] Negative Negative [facility] Protein [Mass/volume] in Ser um or PlasmaOrdered By: Jose Silverman on 10-02-2022 Protein [Mass/Vol] 8.7 g/dL Normal 6.4-8.9 [facility] Comment on above: Performed By: #### C BC, CMP, ETOH #### [address] Serum globulin measurement b y calculation (mass/volume)Ordered By: Jose Silverman on 10-02-2022 Globulin (S) [Mass/Vol] 3.7 g/dL Normal [facility] Comment on above: Performed By: #### C BC, CMP, ETOH #### [address] Serum or plasma albumin/glob ulin mass ratioOrdered By: Jose Silverman on 10-02-2022 Albumin/Globulin [Mass ratio] 1.4 {ratio} Normal [facility] [place] [facility] Comment on above: Performed By: #### C BC, CMP, ETOH #### [facility] [address] [place] [address] Serum or plasma anion gap de terminationOrdered By: Jose Silverman on 10-02-2022 Anion gap [Moles/Vol] 12.6 mmol/L Normal 6.0-15.0 [facility] Comment on above: Performed By: #### C BC, CMP, ETOH #### [address] Sodium [Moles/volume] in Ser um or PlasmaOrdered By: Jose Silverman on 10-02-2022 Sodium [Moles/Vol] 137 mmol/L Normal 136-145 [facility] Comment on above: Performed By: #### C BC, CMP, ETOH #### [address] Specific gravity Auto test s trip (U) [Rel density]Ordered By: Jose Silverman on 10-02-2022 Specific gravity (U) [Rel density] 1.021 1.001-1.030 [facility] [place] [facility] Squamous epithelial cells de tection in urine sediment by light microscopyOrdered By: Jose Silverman on 10-02-2022 Epithelial cells.squamous LM Ql (Urine sed) 10-19 [HPF] 0-2 [facility] [place] [facility] Urea nitrogen [Mass/volume] in Serum or PlasmaOrdered By: Jose Silverman on 10-02-2022 Urea nitrogen [Mass/Vol] 18 mg/dL Normal 7-25 [facility] [place] Comment on above: Performed By: #### C BC, CMP, ETOH #### [facility] [address] [place] [address] [place] Urine Cultureon 10-02-2022 Bacteria identified Cx Nom (U) ORGANISM: Strep agalactiae - (group b) (O:STRAGA) [place] Count 50,000 PERFORMED BY: [place] [address] PATHOLOGIST WORKFORCE SPECIALIST ASHELY CAREY M.D. Normal [facility] [place] [facility] Comment on above: Performed By: #### U RDS, ADDONUAPLUS, CUU, UHCG #### [facility] [address] [place] [address] Urine bacteria detection by automated methodOrdered By: Jose Silverman on 10-02-2022 Bacteria Auto Ql (U) 2+ None Seen [facility] Urine clarity by refractomet ry automatedOrdered By: Jose Silverman on 10-02-2022 Clarity Refractometry automated (U) Clear Clear [facility] [place] [facility] Urine glucose measurement by automated test strip (mass/volume)Ordered By: Jose Silverman on 10-02-2022 Glucose Auto test strip (U) [Mass/Vol] Normal mg/dL Normal [facility] [place] Urine hemoglobin detection b y automated test stripOrdered By: Jose Silverman on 10-02-2022 Hemoglobin Auto test strip Ql (U) Negative Negative [facility] [place] Urine leukocyte esterase det ection by automated test stripOrdered By: Jose Silverman on 10-02-2022 Leukocyte esterase Auto test strip Ql (U) 3+ Negative [facility] [place] Urobilinogen Auto test strip (U) [Mass/Vol]Ordered By: Jose Silverman on 10-02-2022 Urobilinogen (U) [Mass/Vol] Normal mg/dL Normal [facility] [place] [facility] pH Auto test strip (U)Ordere d By: Jose Silverman on 10-02-2022 pH (U) 6.5 [pH] 5.0-9.0 [facility] [place] Quick Strepon 09-25-2022 S. pyogenes Org specific cx Ql (Throat) Negative [facility] Other Quick Strep [facility] Other CHEMISTRYOrdered By: SYSTEM SYSTEM on 09-06-2022 [...] rate/Area] mL/min/1.73 m2 Normal >=59mL/min/1 .73 m2 [facility] [place] S GFR/1.73 sq M.predicted among non-blacks MDRD (S/P/Bld) [Vol rate/Area] mL/min/1.73 m2 Normal >=59mL/min/1 .73 m2 [facility] Chem S Glucose [Mass/Vol] 82 mg/dL Normal [...] AM) Normal Negative [facility] UA Auto SS [place].plasma/[place].R BC (Bld) [Mass ratio] >30 /HPF Invalid [...] Desc Clean Catch (09/06/22 11:19 AM) Normal [facility] UA Auto SS Urobilinogen Qn (U) [id number] {Georgina'U}/dL Normal 0.0 - 1.0 EU/dL [facility] UA Auto SS WBC Auto Ql (U) Negative (09/06/22 11:19 AM) Normal Negative [facility]A Auto SS WBC LM.HPF (Urine sed) [#/Area] 0-5 /HPF Normal 0-5/HPF [facility] UA Auto SS BLOOD BANKOrdered By: John Montague on 08-14-2022 ABO/Rh Interp Positive Invalid Interpretation Code [facility] BB Subsection CHEMISTRYOrdered By: SYSTEM [...] rate/Area] mL/min/1.73 m2 Normal >=59mL/min/1 .73 m2 [facility] Chem S Globulin (S) [Mass/Vol] 3.2 g/dL [...] PM) Normal Negative [facility] UA Auto SS [place].plasma/[place].R BC (Bld) [Mass ratio] 0-3 /HPF Normal [...] [facility] UA Auto SS Urobilinogen Qn (U) [id number] {Georgina'U}/dL Normal 0.0 - 1.0 EU/dL [facility] UA Auto SS WBC Auto Ql (U) Negative (08/14/22 7:29 PM) Normal Negative [facility] UA Auto SS WBC LM.HPF (Urine sed) [#/Area] 0-5 /HPF Normal 0-5/HPF [facility] UA Auto SS CHLAMYDIA/GONOCOCCUS ALFREDO (SW AB/URINE/PAPon 07-15-2022 Chlamydia trachomatis, ALFREDO Negative Normal Negative [facility] Comment on above: Performed By: #### C T/NGNA #### [facility] [address] [place] [address] [address] Cyril Hendricks Neisseria gonorrhoeae, ALFREDO Negative Normal Negative [facility] Comment on above: Performed By: #### C T/NGNA #### [facility] [address] [place] [address] [address] Cyril Hendricks VAGINITIS/VAGINOSIS DNA PROB Maurice 07-13-2022 Krista species Negative Normal Negative [facility] Comment on above: Performed By: #### U MICRO, UACSIND #### [facility] [address] [place] [address] [address] Cyril Hendricks Gardnerella vaginalis Positive Abnormal Negative [facility] Comment on above: Performed By: #### U MICRO, UACSIND #### [facility] [address] [place] [address] [address] Cyril Hendricks Trichomonas vaginalis Negative Normal Negative [facility] Comment on above: Performed By: #### U MICRO, UACSIND #### [facility] [address] [place] [address] [address] Cyril Hendricks COVID/FLU RT-PCRon SARS-CoV-2 (COVID-19) RNA ALFREDO+probe Ql (Unsp spec) Negative [facility] Other COVID/FLU RT-PCR Negative [employer] Other Quick Strepon 06-24-2022 S. pyogenes Org specific cx Ql (Throat) Negative [facility] Other [facility] Other CBC AUTO DIFFon 01-08-2022 BASO # 0.1 103/ul Normal 0.0-0.1 [facility] Comment on above: Performed By: #### C BC #### [facility] [address] [place] [address] Dr. Cyril Hendricks Basophils/100 WBC (Bld) 0.4 % Normal 0.2-2.0 [facility] Comment on above: Performed By: #### C BC #### [facility] [address] [place] [address] Dr. Cyril Henrdicks EO # 0.1 103/ul Normal 0.0-0.7 [facility] Comment on above: Performed By: #### C BC #### [facility] [address] [place] [address] Dr. Cyril Hendricks Eosinophils/100 WBC (Bld) 0.9 % Normal 0.9-7.0 [facility] Comment on above: Performed By: #### C BC #### [facility] [address] [place] [address] Dr. Cyril Hendricks Erythrocyte distribution width (RBC) [Ratio] 12.3 % Normal 11.0-15.0 [facility] Comment on above: Performed By: #### C BC #### [facility] [address] [place] [address] Dr. Cyril Hendricks Hematocrit (Bld) [Volume fraction] 30.0 % Critically low 36.0-48.0 [facility] Comment on above: Performed By: #### C BC #### [facility] [address] [place] [address] Dr. Cyril Hendricks Hemoglobin (Bld) [Mass/Vol] 10.2 g/dL Critically low 12.0-16.0 [facility] Comment on above: Performed By: #### C BC #### [facility] [address] [place] [address] Dr. Cyril Hendricks IG # 0.05 10e3/ul Critically high 0.00-0.03 [facility] Comment on above: Performed By: #### C BC #### [facility] [address] [place] [address] [address] Cyril Hendricks IG % 0.4 % Normal 0.0-0.5 [facility] Comment on above: Performed By: #### C BC #### [facility] [address] [place] [address] Dr. Cyril Hendricks LYMPH # 2.8 103/ul Normal 1.2-3.8 [facility] Comment on above: Performed By: #### C BC #### [facility] [address] [place] [address] Dr. Cyril Hendricks Lymphocytes/100 WBC (Bld) 19.7 % Critically low 20.5-60.0 [facility] Comment on above: Performed By: #### C BC #### [facility] [address] [place] [address] Dr. Cyril Hendricks MANUAL DIFF REQ NO Normal [facility] Comment on above: Performed By: #### C BC #### [facility] [address] [place] [address] Dr. Cyril Hendricks MCH (RBC) [Entitic mass] 30.6 pg Normal 26.7-34.0 [facility] Comment on above: Performed By: #### C BC #### [facility] [address] [place] [address] Dr. Cyril Hendricks MCHC (RBC) [Mass/Vol] 34.0 g/dL Normal 29.9-35.2 [facility] Comment on above: Performed By: #### C BC #### [facility] [address] [place] [address] Dr. Cyril Hendricks MCV (RBC) [Entitic vol] 90.1 fL Normal 81.0-99.0 [facility] Comment on above: Performed By: #### C BC #### [facility] [address] [place] [address] Dr. Cyril Hendricks MONO # 0.8 103/ul Normal 0.3-0.8 [facility] Comment on above: Performed By: #### C BC #### [facility] [address] [place] [address] Dr. Cyril Hendricks Monocytes/100 WBC (Bld) 5.9 % Normal 1.7-12.0 [facility] Comment on above: Performed By: #### C BC #### [facility] [address] [place] [address] Dr. Cyril Hendricks NEUT # 10.3 103/ul Critically high 1.4-6.[address] [facility] Comment on above: Performed By: #### C BC #### [facility] [address] [place] [address] Dr. Cyril Hendricks Neutrophils/100 WBC (Bld) 72.7 % Normal 43.0-75.0 [facility] Comment on above: Performed By: #### C BC #### [facility] [address] [place] [address] Dr. Cyril Hendricks Platelet mean volume (Bld) [Entitic vol] 9.8 fL Normal 9.5-13.5 [facility] Comment on above: Performed By: #### C BC #### [facility] [address] [place] [address] Dr. Cyril Hendricks PLT 207 103/ul Normal 150-450 [facility] Comment on above: Performed By: #### C BC #### [facility] [address] [place] [address] Dr. Cyril Hendricks RBC 3.33 106/ul Critically low 4.20-5.40 [facility] Comment on above: Performed By: #### C BC #### [facility] [address] [place] [address] Dr. Cyril Hendricks WBC 14.2 103/ul Critically high 4.0-11.0 [facility] Comment on above: Performed By: #### C BC #### [facility] [address] [place] [address] Dr. Cyril Hendricks CBC AUTO DIFFon 01-07-2022 BASO # 0.1 103/ul Normal 0.0-0.1 [facility] Comment on above: Performed By: #### U MICRO, UACSIND #### [facility] [address] [place] [address] [address] Cyril Hendricks Basophils/100 WBC (Bld) 0.5 % Normal 0.2-2.0 [facility] Comment on above: Performed By: #### U MICRO, UACSIND #### [facility] [address] [place] [address] [address] Cyril Hendricks EO # 0.1 103/ul Normal 0.0-0.7 [facility] Comment on above: Performed By: #### U MICRO, UACSIND #### [facility] [address] [place] [address] [address] Cyril Hendricks Eosinophils/100 WBC (Bld) 0.9 % Normal 0.9-7.0 [facility] Comment on above: Performed By: #### U MICRO, UACSIND #### [facility] [address] [place] [address] Dr. Cyril Hendricks Erythrocyte distribution width (RBC) [Ratio] 12.4 % Normal 11.0-15.0 [facility] Comment on above: Performed By: #### U MICRO, UACSIND #### [facility] [address] [place] [address] [address] Cyril Hendricks Hematocrit (Bld) [Volume fraction] 34.3 % Critically low 36.0-48.0 [facility] Comment on above: Performed By: #### U MICRO, UACSIND #### [facility] [address] [place] [address] Dr. Cyril Hendricks Hemoglobin (Bld) [Mass/Vol] 11.6 g/dL Critically low 12.0-16.0 [facility] Comment on above: Performed By: #### U MICRO, UACSIND #### [facility] [address] [place] [address] Dr. Cyril Hendricks IG # 0.06 10e3/ul Critically high 0.00-0.03 [facility] Comment on above: Performed By: #### U MICRO, UACSIND #### [facility] [address] [place] [address] Dr. Cyril Hendricks IG % 0.4 % Normal 0.0-0.5 [facility] Comment on above: Performed By: #### U MICRO, UACSIND #### [facility] [address] [place] [address] Dr. Cyril Hendricks LYMPH # 3.1 103/ul Normal 1.2-3.8 [facility] Comment on above: Performed By: #### U MICRO, UACSIND #### [facility] [address] [place] [address] Dr. Cyril Hendricks Lymphocytes/100 WBC (Bld) 20.4 % Critically low 20.5-60.0 [facility] Comment on above: Performed By: #### U MICRO, UACSIND #### [facility] [address] [place] [address] Dr. Cyril Hendricks MANUAL DIFF REQ NO Normal [facility] Comment on above: Performed By: #### U MICRO, UACSIND #### [facility] [address] [place] [address] Dr. Cyril Hendricks MCH (RBC) [Entitic mass] 30.6 pg Normal 26.7-34.0 [facility] Comment on above: Performed By: #### U MICRO, UACSIND #### [facility] [address] [place] [address] Dr. Cyril Hendricks MCHC (RBC) [Mass/Vol] 33.8 g/dL Normal 29.9-35.2 [facility] Comment on above: Performed By: #### U MICRO, UACSIND #### [facility] [address] [place] [address] Dr. Cyril Hendricks MCV (RBC) [Entitic vol] 90.5 fL Normal 81.0-99.0 [facility] Comment on above: Performed By: #### U MICRO, UACSIND #### [facility] [address] [place] [address] Dr. Cyril Hendricks MONO # 0.9 103/ul Critically high 0.3-0.8 [facility] Comment on above: Performed By: #### U MICRO, UACSIND #### [facility] [address] [address] [address] Cyril Hendricks Monocytes/100 WBC (Bld) 6.2 % Normal 1.7-12.0 [facility] Comment on above: Performed By: #### U MICRO, UACSIND #### [facility] [address] [place] [address] Dr. Cyril Hendricks NEUT # 10.9 103/ul Critically high 1.4-6.5 [facility] Comment on above: Performed By: #### U MICRO, UACSIND #### [facility] [address] [place] [address] Dr. Cyril Hendricks Neutrophils/100 WBC (Bld) 71.6 % Normal 43.0-75.0 [facility] Comment on above: Performed By: #### U MICRO, UACSIND #### [facility] [address] [place] [address] Dr. Cyril Hendricks Platelet mean volume (Bld) [Entitic vol] 11.1 fL Normal 9.5-13.5 [facility] Comment on above: Performed By: #### U MICRO, UACSIND #### [facility] [address] [place] [address] Dr. Cyril Hendricks PLT 240 103/ul Normal 150-450 [facility] Comment on above: Performed By: #### U MICRO, UACSIND #### [facility] [address] [place] [address] Dr. Cyril Hendricks RBC 3.79 106/ul Critically low 4.20-5.40 [facility] Comment on above: Performed By: #### U MICRO, UACSIND #### [facility] [address] [place] [address] Dr. Cyril Hendricks WBC 15.3 103/ul Critically high 4.0-11.[address] [facility] Comment on above: Performed By: #### U MICRO, UACSIND #### [facility] [address] [place] [address] Dr. Cyril Hendricks Covid-19 PCR ([facility])on SARS-CoV-2 (COVID-19) RNA ALFREDO+probe Ql (Unsp spec) Not detected Normal NOT DETECTED [facility] Comment on above: Result [...] for this test is supported by the [place] of Health and Human Service's declaration that [...] Performed By: #### H CVPCRR #### [facility] [address] [place] [address] Dr. Cyril Hendricks DRUG SCREEN RAPID (URINE)on 01-07-2022 AMP Negative Normal NEGATIVE [facility] Comment on above: Performed By: #### U MICRO, UACSIND #### [facility] [address] [place] [address] Dr. Cyril Hendricks BAR Negative Normal NEGATIVE [facility] Comment on above: Performed By: #### U MICRO, UACSIND #### [facility] [address] [place] [address] Dr. Cyril Hendricks BUP Negative Normal NEGATIVE [facility] Comment on above: Performed By: #### U MICRO, UACSIND #### [facility] [address] [place] [address] Dr. Cyril Hendricks BZO Negative Normal NEGATIVE [facility] Comment on above: Performed By: #### U MICRO, UACSIND #### [facility] [address] [place] [address] Dr. Cyril Hendricks DARIN Negative Normal NEGATIVE [facility] Comment on above: Performed By: #### U MICRO, UACSIND #### [facility] [address] [place] [address] Dr. Cyril Hendricks CUT-OFFS SEE BELOW Normal [facility] Comment on above: Result Comment: AMP [...] By: #### U MICRO, UACSIND #### [facility] [address] [place] [address] Dr. Cyril Hendricks DRUG CUT HEADER DRUG CLASS TEST SYSTEM CUT-OFF CONCENTRATIONS ARE FOLLOWS: Normal [facility] Comment on above: Performed By: #### U MICRO, UACSIND #### [facility] [address] [place] [address] Dr. Cyril Hendricks mAMP Negative Normal NEGATIVE [facility] Comment on above: Performed By: #### U MICRO, UACSIND #### [facility] [address] [place] [address] Dr. Cyril Hendricks MTD Negative Normal NEGATIVE [facility] Comment on above: Performed By: #### U MICRO, UACSIND #### [facility] [address] [place] [address] Dr. Cyril Hendricks OPI Negative Normal NEGATIVE [facility] Comment on above: Performed By: #### U MICRO, UACSIND #### [facility] [address] [place] [address] Dr. Cyril Hendricks OXY Negative Normal NEGATIVE [facility] Comment on above: Performed By: #### U MICRO, UACSIND #### [facility] [address] [place] [address] Dr. Cyril Hendricks PCP Negative Normal NEGATIVE [facility] Comment on above: Performed By: #### U MICRO, UACSIND #### [facility] [address] [address] [address] Cyril Hendricks PPX Negative Normal NEGATIVE [facility] Comment on above: Performed By: #### U MICRO, UACSIND #### [facility] [address] [address] [address] Cyril Hendricks TCA Negative Normal NEGATIVE [facility] Comment on above: Performed By: #### U MICRO, UACSIND #### [facility] [address] [place] [address] Dr. Cyril Hendricks THC Negative Normal NEGATIVE [facility] Comment on above: Performed By: #### U MICRO, UACSIND #### [facility] [address] [place] [address] Dr. Cyril Hendricks TYPE AND SCREENon 01-07-2022 TYPE AND SCREEN Negative Normal [facility] Comment on above: Performed By: #### H CVPCRR #### [facility] [address] [place] [address] Dr. Cyril Hendricks CULTURE URINEon 12-29-2021 CULTURE URINE Culture Observations: NO GROWTH. Normal [facility] Comment on above: Performed By: #### U RCX #### [facility] [address] [place] [address] Dr. Cyril Hendricks UA (CLEAN/CATCH) BONDING MOLDER/MICRO I F IND.on 12-29-2021 Bilirubin Ql (U) Negative Normal NEGATIVE [facility] Comment on above: Performed By: #### U MICRO, UACSIND #### [facility] [address] [place] [address] Dr. Cyril Hendricks Clarity (U) SL CLOUDY Abnormal CLEAR [facility] Comment on above: Performed By: #### U MICRO, UACSIND #### [facility] [address] [place] [address] Dr. Cyril Hendricks Color (U) LT. YELLOW Normal YELLOW [facility] Comment on above: Performed By: #### U MICRO, UACSIND #### [facility] [address] [place] [address] Dr. Cyril Hendricks Glucose Ql (U) Negative Normal NEGATIVE [facility] Comment on above: Performed By: #### U MICRO, UACSIND #### [facility] [address] [address] [address] Cyril Hendricks Hemoglobin Ql (U) Negative Normal NEGATIVE [facility] Comment on above: Performed By: #### U MICRO, UACSIND #### [facility] [address] [address] [address] Cyril Hendricks Ketones Ql (U) Negative Normal NEGATIVE [facility] Comment on above: Performed By: #### U MICRO, UACSIND #### [facility] [address] [address] [address] Cyril Hendricks LEUKOCYTES LARGE Abnormal NEGATIVE [facility] Comment on above: Performed By: #### U MICRO, UACSIND #### [facility] [address] [place] [address] Dr. Cyril Hendricks Nitrite Ql (U) Negative Normal NEGATIVE [facility] Comment on above: Performed By: #### U MICRO, UACSIND #### [facility] [address] [place] [address] Dr. Cyril Hendricks pH (U) 6.5 [pH] Normal 5-9 [facility] Comment on above: Performed By: #### U MICRO, UACSIND #### [facility] [address] [place] [address] Dr. Cyril Hendricks SPEC GRAVITY 1.010 Normal 1.005-<=1.02 5 [facility] Comment on above: Performed By: #### U MICRO, UACSIND #### [facility] [address] [address] [address] Cyril Hendricks UA PROTEIN Negative Normal NEGATIVE/ TRACE [facility] Comment on above: Performed By: #### U MICRO, UACSIND #### [facility] [address] [place] [address] Dr. Cyril Hendricks UR MICRO IND INDICATED Normal [facility] Comment on above: Performed By: #### U MICRO, UACSIND #### [facility] [address] [address] [address] Cyril Hendricks Urobilinogen Qn (U) 0.2 {Georgina'U}/dL Normal 0.2 - 1. 0 [facility] Comment on above: Performed By: #### U MICRO, UACSIND #### [facility] [address] [place] [address] Dr. Cyril Hendricks URINE MICROSCOPIC ONLYon BACTERIA SMALL Abnormal NONE SEEN [facility] Comment on above: Performed By: #### U MICRO, UACSIND #### [facility] [address] [place] [address] Dr. Cyril Hendricks Bacteria identified Cx Nom (U) INDICATED Normal [facility] Comment on above: Performed By: #### U MICRO, UACSIND #### [facility] [address] [place] [address] Dr. Cyril Hendricks CAST NONE SEEN Normal NONE SEEN [facility] Comment on above: Performed By: #### U MICRO, UACSIND #### [facility] [address] [place] [address] Dr. Cyril Hendricks Crystals LM Nom (Urine sed) NONE SEEN Normal NONE SEEN [facility] Comment on above: Performed By: #### U MICRO, UACSIND #### [facility] [address] [place] [address] Dr. Cyril Hendricks Epithelial cells LM Ql (Urine sed) MANY Abnormal NONE SEEN /RARE [facility] Comment on above: Performed By: #### U MICRO, UACSIND #### [facility] [address] [place] [address] Dr. Cyril Hendricks MUCOUS NONE SEEN Normal NONE SEEN [facility] Comment on above: Performed By: #### U MICRO, UACSIND #### [facility] [address] [place] [address] Dr. Cyril Hendricks RBC 0-2 Normal 0-2 [facility] Comment on above: Performed By: #### U MICRO, UACSIND #### [facility] [address] [place] [address] Dr. Cyril Hendricks WBC 10-20 Abnormal NONE SEEN [facility] Comment on above: Performed By: #### U MICRO, UACSIND #### [facility] [address] [place] [address] [address] [address] Cyril Hendricks GROUP B STREP CULTUREon 12-07 S. agalactiae Ag Ql (Unsp spec) Culture Observations: NEGATIVE FOR GROUP B STREPTOCOCCUS. Normal [facility] Comment on above: Performed By: #### G BSCX #### [facility] [address] [address] [address] Cyril Hendricks SSAon 12-13-2021 SSA <0.3 Normal <7.0 [facility] Comment on above: Result Comment: Reference Range: <7.0 Negative 7.0-10.0 Equivocal >10.0 Positive Performed By: #### S SARO, TSH, FT4, SSBLA #### [employer] [address] [place] [address] Bariatric Nurse: Homer Hoffman MD SSBon 12-13-2021 SSB <0.3 Normal <7.0 [facility] Comment on above: Result Comment: Reference Range: <7.0 Negative 7.0-10.0 Equivocal >10.0 Positive Performed By: #### S SARO, TSH, FT4, SSBLA #### [employer] [address] [place] [address] Bariatric Nurse: Homer Hoffman MD No Panel Informationon 12-12 [facility] T4, Freeon 12-12-2021 Thyroxine, Free 0.98 ng/dL 0.93 - 1.70 ng/dL [facility] TSHon 12-12-2021 TSH Qn 4.35 m[IU]/L [facility] Thyroid Stim. Horm.on 2021 Thyroid Stim. Horm. 4.35 uIU/mL Normal 0.30-5.00 [facility] Comment on above: Performed By: #### S SARO, TSH, FT4, SSBLA #### [employer] [address] [place] [address] Bariatric Nurse: Homer Hoffman MD Thyroxine, Freeon 12-12-2021 Thyroxine, Free 0.98 ng/dL Normal 0.93-1.70 [facility] Comment on above: Performed By: #### S SARO, TSH, FT4, SSBLA #### [facility] [address] [place] [address] Bariatric Nurse: Homer Hoffman MD US PREG BIOPHY W [...] by: SOFIA KABA Date: 2021-11-27 13:55 Normal [facility] COVID + FLU Quick Testingon 11-13-2021 SARS-CoV-2 (COVID-19) RNA ALFREDO+probe Ql (Unsp spec) Negative [facility] Other COVID + FLU Quick Testing Negative [facility] Other GLUCOSE - 1HRon 10-23-2021 Glucose [Mass/Vol] 83 mg/dL Normal 74-106 [facility] Comment on above: Performed By: #### G LU1HR #### [facility] [address] [address] [address] Cyril Hendricks CHLAMYDIA/GONOCOCCUS ALFREDO (SW AB/URINE/PAPon 10-05-2021 Chlamydia trachomatis, ALFREDO Negative Normal Negative [facility] Comment on above: Performed By: #### C T/NGNA #### [facility] [address] [place], [place] [address] Dr. Cyril Hendricks Neisseria gonorrhoeae, ALFREDO Negative Normal Negative [facility] Comment on above: Performed By: #### C T/NGNA #### [facility] [address] [place] [address] Dr. Cyril Hendricks VAGINITIS/VAGINOSIS DNA PROB Maurice 10-04-2021 Krista species Positive Abnormal Negative [facility] Comment on above: Performed By: #### H CVPCRR #### [facility] [address] [place] [address] Dr. Cyril Hendricks Gardnerella vaginalis Negative Normal Negative [facility] Comment on above: Performed By: #### H CVPCRR #### [facility] [address] [place] [address] Dr. Cyril Hendricks Trichomonas vaginalis Negative Normal Negative [facility] Comment on above: Performed By: #### H CVPCRR #### [facility] [address] [place] [address] Dr. Cyril Hendricks HEP B SURFACE ANTIGEN SCREEN on 10-03-2021 HBsAg Screen Negative Normal Negative [facility] Comment on above: Performed By: #### H CVPCRR #### [facility] [address] [place] [address] Dr. Cyril Hendricks HEPATITIS C VIRUS AB W/ REFL EX QUANTon 10-03-2021 HCV AB <0.1 Normal 0.0-0.9 [facility] Comment on above: Performed By: #### H CVPCRR #### [facility] [address] [place] [address] Dr. Cyril Hendricks Interpretation: Comment Normal [facility] Comment on above: Result Comment: Nega tive Not infected with HCV, unless recent infection is suspected or other evidence exists to indicate HCV infection. Performed By: #### H CVPCRR #### [facility] [address] [place] [address] Dr. Cyril Hendricks HIV 1 AND 2 WITH REFLEXon HIV Screen 4th Generation wRfx Non-Reactive Normal Non Reactive [facility] Comment on above: Result Comment: HIV Negative HIV-1/HIV-2 antibodies and HIV-1 p24 antigen were NOT detected. There is no laboratory evidence of HIV infection. Performed By: #### H IV12 #### [facility] [address] [place] [address] Dr. Cyril Hendricks RPR QUANTon 10-03-2021 Rapid Plasma Reagin, Quant Non-Reactive Normal NonRea<1:1 [facility] Comment on above: Result Comment: Juliette brito Note: This test does not meet current guidelines for screening and diagnosis of syphilis. This test is intended for following treatment response in patients being treated for syphilis infection. To screen for syphilis infection, a reflex cascade that includes both RPR and a treponema-specific assay should be utilized, such as Treponema pallidum (Syphilis) Screening Skippers (041917) or Rapid Plasma Reagin (RPR) Test With Reflex to Quantitative RPR and Confirmatory Treponema pallidum Antibodies (305799). Performed By: #### U MICRO, UACSIND #### [facility] [address] [place] [address] Dr. Cyril Hendricks RUBELLA AB IGGon 10-03-2021 Rubella Antibodies, IgG <0.90 Critically low Immune > 0.99 [facility] Comment on above: Result Comment: Non- immune <0.90 Equivocal 0.90 - 0.99 Immune >0.99 Performed By: #### U MICRO, UACSIND #### [facility] [address] [place] [address] Dr. Cyril Hendricks CBC AUTO DIFFon 10-02-2021 BASO # 0.1 103/ul Normal 0.0-0.1 [facility] Comment on above: Performed By: #### U MICRO, UACSIND #### [facility] [address] [place] [address] Dr. Cyril Hendricks Basophils/100 WBC (Bld) 0.4 % Normal 0.2-2.0 [facility] Comment on above: Performed By: #### U MICRO, UACSIND #### [facility] [address] [place] [address] Dr. Cyril Hendricks EO # 0.1 103/ul Normal 0.0-0.7 [facility] Comment on above: Performed By: #### U MICRO, UACSIND #### [facility] [address] [place] [address] Dr. Cyril Hendricks Eosinophils/100 WBC (Bld) 1.1 % Normal 0.9-7.0 [facility] Comment on above: Performed By: #### U MICRO, UACSIND #### [facility] [address] [place] [address] Dr. Cyril Hendricks Erythrocyte distribution width (RBC) [Ratio] 13.5 % Normal 11.0-15.0 [facility] Comment on above: Performed By: #### U MICRO, UACSIND #### [facility] [address] [place] [address] Dr. Cyril Hendricks Hematocrit (Bld) [Volume fraction] 34.5 % Critically low 36.0-48.0 [facility] Comment on above: Performed By: #### U MICRO, UACSIND #### [facility] [address] [place] [address] Dr. Cyril Hendricks Hemoglobin (Bld) [Mass/Vol] 12.0 g/dL Normal 12.0-16.0 [facility] Comment on above: Performed By: #### U MICRO, UACSIND #### [facility] [address] [place] [address] Dr. Cyril Hendricks IG # 0.04 10e3/ul Critically high 0.00-0.03 [facility] Comment on above: Performed By: #### U MICRO, UACSIND #### [facility] [address] [place] [address] Dr. Cyril Hendricks IG % 0.3 % Normal 0.0-0.5 [facility] Comment on above: Performed By: #### U MICRO, UACSIND #### [facility] [address] [place] [address] Dr. Cyril Hendricks LYMPH # 2.6 103/ul Normal 1.2-3.8 [facility] Comment on above: Performed By: #### U MICRO, UACSIND #### [facility] [address] [place] [address] Dr. Cyril Hendricks Lymphocytes/100 WBC (Bld) 21.3 % Normal 20.5-60.0 [facility] Comment on above: Performed By: #### U MICRO, UACSIND #### [facility] [address] [address] [address] Cyril Hendricks MANUAL DIFF REQ NO Normal [facility] Comment on above: Performed By: #### U MICRO, UACSIND #### [facility] [address] [address] [address] Cyril Hendricks MCH (RBC) [Entitic mass] 32.5 pg Normal 26.7-34.0 [facility] Comment on above: Performed By: #### U MICRO, UACSIND #### [facility] [address] [place] [address] Dr. Cyril Hendricks MCHC (RBC) [Mass/Vol] 34.8 g/dL Normal 29.9-35.2 [facility] Comment on above: Performed By: #### U MICRO, UACSIND #### [facility] [address] [place] [address] Dr. Cyril Hendricks MCV (RBC) [Entitic vol] 93.5 fL Normal 81.0-99.0 [facility] Comment on above: Performed By: #### U MICRO, UACSIND #### [facility] [address] [place] [address] Dr. Cyril Hendricks MONO # 0.8 103/ul Normal 0.3-0.8 [facility] Comment on above: Performed By: #### U MICRO, UACSIND #### [facility] [address] [place] [address] Dr. Cyril Hendricks Monocytes/100 WBC (Bld) 6.2 % Normal 1.7-12.0 [facility] Comment on above: Performed By: #### U MICRO, UACSIND #### [facility] [address] [place] [address] Dr. Cyril Hendricks NEUT # 8.6 103/ul Critically high 1.4-6.5 [facility] Comment on above: Performed By: #### U MICRO, UACSIND #### [facility] [address] [place] [address] Dr. Cyril Hendricks Neutrophils/100 WBC (Bld) 70.7 % Normal 43.0-75.0 [facility] Comment on above: Performed By: #### U MICRO, UACSIND #### [facility] [address] [address] [address] Cyril Hendricks Platelet mean volume (Bld) [Entitic vol] 9.1 fL Critically low 9.5-13.5 [facility] Comment on above: Performed By: #### U MICRO, UACSIND #### [facility] [address] [address] [address] Cyril Hendricks PLT 257 103/ul Normal 150-450 [facility] Comment on above: Performed By: #### U MICRO, UACSIND #### [facility] [address] [place] [address] Dr. Cyril Hendricks RBC 3.69 106/ul Critically low 4.20-5.40 [facility] Comment on above: Performed By: #### U MICRO, UACSIND #### [facility] [address] [address] [address] Cyril Hendricks WBC 12.2 103/ul Critically high 4.0-11.[address] [facility] Comment on above: Performed By: #### U MICRO, UACSIND #### [facility] [address] [place] [address] Dr. Cyril Hendricks CULTURE URINEon 10-02-2021 CULTURE URINE Culture Observations: MODERATE GROWTH OF MIXED GENITAL DRAGAN. NO POTENTIAL PATHOGENS SEEN. Normal [facility] Comment on above: Performed By: #### H CVPCRR #### [facility] [address] [place] [address] Dr. Cyril Hendricks GLYCOHEMOGLOBIN A1Con 2021 ADA RECOMMENDATION SEE BELOW Normal [facility] Comment on above: Result Comment: ADA RECOMMENDED LIMIT 4.0 - 6.0 ADA THERAPEUTIC TARGET < 7.0 ACTION SUGGESTED > 7.0 Performed By: #### H CVPCRR #### [facility] [address] [place] [address] Dr. Cyril Hendricks Glucose [Mass/Vol] 80 mg/dL Normal [facility] Comment on above: Performed By: #### H CVPCRR #### [facility] [address] [place], [place] [address] Dr. Cyril Hendricks HbA1c (Bld) [Mass fraction] 4.4 % Critically low 4.5-6.2 [facility] Comment on above: Performed By: #### H CVPCRR #### [facility] [address], [place] [address] Dr. Cyril Hendricks TYPE AND SCREENon 10-02-2021 TYPE AND SCREEN Negative Normal [facility] Comment on above: Performed By: #### H CVPCRR #### [facility] [address], [place] [address] Dr. Cyril Hendricks US PREG PLACENTAon 2 [...] KABA Date: 2021-10-02 10:47 Normal [facility] US PREG ANATOMY SINGLEon US [...] (44% by ultrasound, 29% by expected) FL/AC: [id number] FL/BPD: [id number] HC/AC: 1.768608 GESTATIONAL AGE: Age by EDC: 21 weeks, 3 days NOY by EDC: 01/12/2022 Age by current US: 21 weeks, 1 day NOY by current US: 01/14/2022 IMPRESSION: 1. Single live intrauterine with growth detailed above. 2. Posterior, low-lying placenta. Electronically authenticated by: MARS FRANKEL Date: 2021-09-04 16:30 Normal [facility] Vital Signs Date Time Vital Sign Value Performing Clinician Facility 02-03-2024 09:23-0400 Body temperature 97.88 [degF] S[facility] 02-03-2024 09:23-0400 Diastolic blood pressure 70 mm[Hg] S[facility] 02-03-2024 09:23-0400 Heart rate 85 /min Siva Schul[facility] 02-03-2024 09:23-0400 Respiratory rate 18 /min S[facility] 02-03-2024 09:23-0400 SaO2% (BldA) [Mass fraction] 99 % [facility] 02-03-2024 09:23-0400 Systolic blood pressure 106 mm[Hg] [facility] 09-23-2023 09:16-0400 Body temperature 98.42 [degF] Wil Chandra [facility] 09-23-2023 09:16-0400 Diastolic blood pressure 68 mm[Hg] [facility] 09-23-2023 09:16-0400 Heart rate 82 /min Wil Ch[facility] 09-23-2023 09:16-0400 Respiratory rate 18 /min [facility] 09-23-2023 09:16-0400 SaO2% (BldA) [Mass fraction] 97 % [facility] 09-23-2023 09:16-0400 Systolic blood pressure 98 mm[Hg] [facility] 08-27-2023 12:24-0400 Diastolic blood pressure 61 mm[Hg] [facility] 08-27-2023 12:24-0400 Heart rate 77 /min [facility] 08-27-2023 12:24-0400 Mean blood pressure 72 mm[Hg] [facility] 08-27-2023 12:24-0400 Respiratory rate 16 /min [facility] 08-27-2023 12:24-0400 SaO2% (BldA) [Mass fraction] 97 % [facility] 08-27-2023 12:24-0400 Systolic blood pressure 93 mm[Hg] [facility] 08-27-2023 11:30-0400 Diastolic blood pressure 69 mm[Hg] [facility] 08-27-2023 11:30-0400 Heart rate 74 /min [facility] 08-27-2023 11:30-0400 Mean blood pressure 82 mm[Hg] [facility] 08-27-2023 11:30-0400 Respiratory rate 16 /min [facility] 08-27-2023 11:30-0400 SaO2% (BldA) [Mass fraction] 99 % [facility] 08-27-2023 11:30-0400 Systolic blood pressure 107 mm[Hg] [facility] 08-27-2023 10:30-0400 Diastolic blood pressure 62 mm[Hg] [facility] 08-27-2023 10:30-0400 Heart rate 91 /min [facility] 08-27-2023 10:30-0400 Mean blood pressure 77 mm[Hg] [facility] 08-27-2023 10:30-0400 Respiratory rate 18 /min [facility] 08-27-2023 10:30-0400 SaO2% (BldA) [Mass fraction] 100 % [facility] 08-27-2023 10:30-0400 Systolic blood pressure 107 mm[Hg] [facility] 08-27-2023 09:41-0400 Body temperature 98.6 [degF] [facility] 08-27-2023 09:41-0400 Heart rate 80 /min [facility] 01-04-2023 00:03-0400 Body temperature 98.78 [degF] [facility] 01-04-2023 00:03-0400 Diastolic blood pressure 54 mm[Hg] [facility] 01-04-2023 00:03-0400 Heart rate 97 /min [facility] 01-04-2023 00:03-0400 Mean blood pressure 70 mm[Hg] [facility] 01-04-2023 00:03-0400 Respiratory rate 18 /min [facility] 01-04-2023 00:03-0400 SaO2% (BldA) [Mass fraction] 94 % [facility] 01-04-2023 00:03-0400 Systolic blood pressure 102 mm[Hg] [facility] Eris [facility] 01-03-2023 23:00-0400 Body temperature 100.04 [degF] [facility] E[facility] 01-03-2023 23:00-0400 Diastolic blood pressure 62 mm[Hg] [facility] Eris [facility] 01-03-2023 23:00-0400 Heart rate 100 /min Siva Eris [facility] 01-03-2023 23:00-0400 Mean blood pressure 75 mm[Hg] [facility] E[facility] 01-03-2023 23:00-0400 Systolic blood pressure 100 mm[Hg] S[facility] Eris [facility] 01-03-2023 22:42-0400 Body temperature 100.76 [degF] [facility] E[facility] 01-03-2023 22:42-0400 Diastolic blood pressure 59 mm[Hg] [facility] E[facility] 01-03-2023 22:42-0400 Heart rate 105 /min Siva Eris [facility] 01-03-2023 22:42-0400 Respiratory rate 20 /min Siva Eris [facility] 01-03-2023 22:42-0400 SaO2% (BldA) [Mass fraction] 99 % [facility] Eris [facility] 01-03-2023 22:42-0400 Systolic blood pressure 96 mm[Hg] [facility] Eris [facility] 10-02-2022 21:29-0400 Diastolic blood pressure 72 mm[Hg] PHYSICIAN [facility] 10-02-2022 21:29-0400 Heart rate 94 /min PHYSICIAN NO [facility] 10-02-2022 21:29-0400 Respiratory rate 18 /min PHYSICIAN NO [facility] 10-02-2022 21:29-0400 SaO2% (BldA) [Mass fraction] 98 % PHYSICIAN NO [facility] [facility] 10-02-2022 21:29-0400 Systolic blood pressure 141 mm[Hg] PHYSICIAN NO [facility] 10-02-2022 17:03-0400 Body height 170.18 cm PHYSICIAN NO [facility] 10-02-2022 17:03-0400 Body temperature 98.3 [degF] PHYSICIAN NO [facility] 10-02-2022 17:03-0400 Body weight 76.4 kg PHYSICIAN NO [facility] 09-25-2022 13:25-0400 Body height 170.18 cm Viet Yuri Other [facility] Other 09-25-2022 13:25-0400 Body mass index (BMI) [Ratio] 26.62 kg/m2 Viet Welch Other [facility] Other 09-25-2022 13:25-0400 Body temperature 98.2 [degF] Viet Welch Other [facility] Other 09-25-2022 13:25-0400 Body weight 77.11 kg Viet Welch Other [facility] Other 09-25-2022 13:25-0400 Diastolic blood pressure 68 mm[Hg] Viet Welch Other [facility] Other 09-25-2022 13:25-0400 Respiratory rate 18 /min Viet Welch Other [facility] Other 04-19-2023 13:25-0400 SaO2% (BldA) [Mass fraction] 98 % Viet Welch Other [facility] [facility] Other 09-25-2022 13:25-0400 Systolic blood pressure 107 mm[Hg] Viet Welch Other [facility] Other 09-06-2022 13:54-0400 Diastolic blood pressure 72 mm[Hg] Wil Corazon [facility] 09-06-2022 13:54-0400 Heart rate 60 /min Wil Corazon [facility] 09-06-2022 13:54-0400 Respiratory rate 16 /min Wil Corazon [facility] 09-06-2022 13:54-0400 SaO2% (BldA) [Mass fraction] 100 % Wil Corazon [facility] 09-06-2022 13:54-0400 Systolic blood pressure 103 mm[Hg] Wil Corazon [facility] 09-06-2022 11:41-0400 Diastolic blood pressure 65 mm[Hg] Wil Corazon [facility] 09-06-2022 11:41-0400 Heart rate 58 /min Wil Corazon [facility] 09-06-2022 11:41-0400 Mean blood pressure 77 mm[Hg] Wil Corazon [facility] 09-06-2022 11:41-0400 Respiratory rate 16 /min Wil Corazon [facility] 09-06-2022 11:41-0400 SaO2% (BldA) [Mass fraction] 100 % Wil Corazon [facility] 09-06-2022 11:41-0400 Systolic blood pressure 102 mm[Hg] Wil Chandra [facility] 09-06-2022 10:42-0400 Body temperature 98.24 [degF] Wil Chandra [facility] 09-06-2022 10:42-0400 bodymassindex 1.17 Wil Chandra [facility] Comment on above: [facility] 10:42-0400 Diastolic blood pressure 71 mm[Hg] Wil Chandra [facility] 09-06-2022 10:42-0400 Heart rate 73 /min Wil Chandra [facility] 09-06-2022 10:42-0400 Height/Length Percentile 84.89 Wil Chandra [facility] Comment on above: Result Comment: ^~:!Percentile [facility] 09-06-2022 10:42-0400 Height/Length Z-Score 1.03 Wil Chandra [facility] Comment on above: Result Comment: [facility] 09-06-2022 10:42-0400 Respiratory rate 16 /min Wil Chandra [facility] 09-06-2022 10:42-0400 SaO2% (BldA) [Mass fraction] 98 % Wil Chandra [facility] 09-06-2022 10:42-0400 Systolic blood pressure 111 mm[Hg] Wil Chandra [facility] 09-06-2022 10:42-0400 weight 1.47 Wil Chandra [facility] Comment on above: Result Comment: ^~:!ZScore [facility] 09-06-2022 10:42-0400 Weight Percentile 92.90 % Wil Chandra [facility] Comment on above: Result Comment: ^~:!Percentile Source -[facility] 08-14-2022 21:30-0500 Diastolic blood pressure 79 mm[Hg] Bob Llanos [facility] 08-14-2022 21:30-0500 Heart rate 87 /min Bob Llanos [facility] 08-14-2022 21:30-0500 Mean blood pressure 93 mm[Hg] Bob Llanos [facility] 08-14-2022 21:30-0500 Nursing Progress Note Reason Other: pt to [place] via stretcher at this time. Bob Llanos [facility] 08-14-2022 21:30-0500 Respiratory rate 16 /min Bob Llanos [facility] 08-14-2022 21:30-0500 SaO2% (BldA) [Mass fraction] 100 % Bob Llanos [facility] 08-14-2022 21:30-0500 Systolic blood pressure 120 mm[Hg] Bob Llanos [facility] 08-14-2022 19:20-0500 Body temperature 98.96 [degF] Bob Llanos [facility] 08-14-2022 19:20-0500 bodymassindex 1.17 Bob Llanos [facility] Comment on above: Result Comment: ^~:!ZScore Source [facility] 08-14-2022 19:20-0500 Diastolic blood pressure 61 mm[Hg] Bob Llanos [facility] 08-14-2022 19:20-0500 Heart rate 98 /min Bob Llanos [facility] 08-14-2022 19:20-0500 Height/Length Percentile 84.91 Bob Llanos [facility] Comment on above: Result Comment: ^~:!Percentile Source -[facility] 08-14-2022 19:20-0500 Height/Length Z-Score 1.03 Bob Llanos [facility] Comment on above: Result Comment: ^~:!ZScore [facility] 08-14-2022 19:20-0500 Respiratory rate 16 /min Bob Llanos [facility] 08-14-2022 19:20-0500 SaO2% (BldA) [Mass fraction] 99 % Bob Llanos [facility] 08-14-2022 19:20-0500 Systolic blood pressure 114 mm[Hg] Bob Llanos [facility] 08-14-2022 19:20-0500 weight 1.47 Bob Llanos [facility] Comment on above: Result Comment: ^~:!ZScore [facility] 08-14-2022 19:20-0500 Weight Percentile 92.94 % Bob Llanos [facility] Comment on above: Result Comment: ^~:!Percentile Source -[facility] 06-24-2022 13:30-0500 Body height 170.18 cm Viet Welch Other [facility] Other 06-24-2022 13:30-0500 Body mass index (BMI) [Ratio] 26.62 kg/m2 Viet Welch Other [facility] Other 06-24-2022 13:30-0500 Body temperature 97.8 [degF] Viet Welch Other [facility] Other 06-24-2022 13:30-0500 Body weight 77.11 kg Viet Welch Other [facility] Other 06-24-2022 13:30-0500 Diastolic blood pressure 63 mm[Hg] Viet Welch Other [facility] Other 06-24-2022 13:30-0500 Respiratory rate 18 /min Viet Welch Other [facility] Other 06-24-2022 13:30-0500 SaO2% (BldA) [Mass fraction] 98 % Viet Welch Other [facility] Other 06-24-2022 13:30-0500 Systolic blood pressure 97 mm[Hg] Viet Welch Other [facility] Other 11-13-2021 14:05-0400 Body height 170.18 cm Michael Oneil Other [facility] Other 11-13-2021 14:05-0400 Body mass index (BMI) [Ratio] 26.62 kg/m2 Michael Oneil Other [facility] Other 11-13-2021 14:05-0400 Body temperature 98.4 [degF] Michael Oneil Other [facility] Other 11-13-2021 14:05-0400 Body weight 77.11 kg Michael Oneil Other [facility] Other 11-13-2021 14:05-0400 Respiratory rate 18 /min Michael Oneil Other [facility] Other 11-13-2021 14:05-0400 SaO2% (BldA) [Mass fraction] 98 % Michael Oneil Other [facility] Other 11-06-2021 15:45-0400 Body height Kendra Witt Other [facility] Other 11-06-2021 15:45-0400 Body mass index (BMI) [Ratio] 26.62 kg/m2 Kendra Witt Other [facility] Other 11-06-2021 15:45-0400 Body weight 77.11 kg Kendra Witt Other [facility] Other 11-06-2021 15:45-0400 Respiratory rate 20 /min Kendra Witt Other [facility] Other 11-06-2021 15:45-0400 SaO2% (BldA) [Mass fraction] 98 % Kendra Witt Other [facility] Other Encounters Encounter Date Encounter Type Care Provider Facility Start: 03-15-2024 End: 03-15-2024 ambulatory GONSALO CORRAL Not Available Start: 03-01-2024 End: 03-01-2024 ambulatory JUVENAL MIRI Not Available Start: 02-16-2024 End: 02-16-2024 ambulatory GONSALO CORRAL Not Available Start: 02-03-2024 End: 02-03-2024 Emergency department patient visit Siva Schulte [facility] Start: 01-26-2024 End: 01-26-2024 ambulatory JUVENAL MIRI Not Available Start: 12-29-2023 End: 12-29-2023 ambulatory GONSALO ELLIS Not Available Start: 12-22-2023 End: 12-22-2023 ambulatory JUVENAL R MIRI [facility] Start: 12-01-2023 End: 12-01-2023 ambulatory JUVENAL MIRI Not Available Start: 11-10-2023 End: 11-10-2023 ambulatory JUVENAL THORPE [facility] Start: 10-27-2023 End: 10-27-2023 ambulatory GONSALO CORRAL Not Available Start: 09-29-2023 End: 09-29-2023 ambulatory JUVENAL RAMIREZO Not Available Start: 09-23-2023 End: 09-23-2023 Emergency department patient visit Wil Chandra [facility] Start: 09-04-2023 End: 09-04-2023 ambulatory JUVENAL RAMIREZO Not Available Start: 08-27-2023 End: 08-27-2023 Emergency department patient visit Emily Browningyusef [facility] Start: 08-18-2023 End: 08-18-2023 ambulatory SELAM HUNTER [place] Start: 01-03-2023 End: 01-04-2023 Emergency department patient visit Siva Schulte [facility] Start: 12-12-2022 End: 12-12-2022 ambulatory Kennethsaniya AtkinsLina Other [facility] Other Start: 12-12-2022 Telephone encounter Kenneth Lina [facility] Start: 10-02-2022 End: 10-02-2022 Emergency department patient visit Jose Silverman Facility:[facility] Start: 10-02-2022 End: 10-02-2022 Emergency department patient visit PHYSICIAN [facility] Work Phone: Start: 09-25-2022 End: 09-25-2022 ambulatory Viet Welch Other [facility] Other Start: 09-25-2022 Office outpatient visit 15 minutes Viet Welch [facility] Start: 09-06-2022 End: 09-06-2022 Emergency department patient visit Wil Chandra [facility] Start: 08-14-2022 End: 08-14-2022 Emergency department patient visit oBb Llanos [facility] Start: 07-11-2022 End: 07-11-2022 ambulatory ROSEANN CORRAL Facility:[facility] Start: 06-24-2022 End: 06-24-2022 ambulatory Viet Welch Other [facility] Other Start: 06-24-2022 Office outpatient visit 15 minutes Viet Welhc [facility] Start: 01-11-2022 End: 01-11-[address] NIEVES LISTED REQUEST Facility:[facility] Start: 01-07-2022 End: 01-09-2022 Evaluation and management of inpatient DR RENATA GEORGES Facility:[facility] Start: 12-29-2021 End: 12-29-[address] JUVENAL THORPE Facility:[facility] Start: 12-19-2021 End: 12-19-[address] JUVENAL THORPE Facility:[facility] Start: 12-12-2021 End: 12-13-2021 ambulatory JUAQUIN SEWELL [facility] Start: 12-12-2021 End: 12-12-2021 Subsequent hospital visit by physician [facility] Start: 11-27-2021 End: 11-27-[address] SOFIA KABA Facility:[facility] Start: 11-13-2021 End: 11-13-2021 ambulatory Michael Oneil Other [facility] Other Start: 11-13-2021 Office outpatient visit 15 minutes Michael Oneil [facility] Start: 11-06-2021 End: 11-06-2021 ambulatory Kendra Witt Other [facility] Other Start: 11-06-2021 Office outpatient visit 25 minutes Kendra Witt [facility] Start: 10-23-2021 End: 10-24-[address] [...] identified in Urine by Culture Urine Culture [facility] Start: 02-07-2022 Influenza vaccination Flu vaccine (# 1) [employer] Start: 01-09-2022 End: 01-09-2022 Patient encounter procedure 01/09/2022 Routine Perinatology [facility] Start: 01-02-2022 End: 01-02-2022 Patient encounter procedure 01/02/2022 Routine Perinatology [facility] Start: 12-26-2021 End: 12-26-2021 Patient encounter procedure 12/26/2021 Routine Perinatology [facility] Start: 12-20-2021 End: 12-20-2021 Patient encounter procedure 12/20/2021 Routine Perinatology [facility] Start: 2021 DTaP/Tdap/Td vaccine (1 - Tdap) DTaP/Tdap/Td vaccine (1 - Tdap) [facility] Start: 2020 Hepatitis C screening Hepatitis C sc reen [facility] Start: 2018 Screening for Chlamy nazanin trachomatis Chlamydia screen [facility] Start: 2017 HIV screening HIV screen [facility] [employer] Start: 2014 Depression Monitoring Depression Mon elizabeth [facility] Start: 2013 HPV vaccine (1 - 2-d ose series) HPV vaccine (1 - 2-dose series) [facility] Start: 09-16-2007 COVID-19 Vaccine (1) COVID-19 Vaccin e (1) [facility] Start: 09-16-2003 Varicella vaccine (1 of 2 - 2-dose childhood series) Varicella vaccine (1 of 2 - 2-dose childhood series) [facility] Patient Education Depression, Adult ED [facility] Work Phone: Patient referral [facility] Work Phone: End: 12-12-2021 Sjogrens syndrome-A extractable nuclear antibody [facility] Work Phone: Comment on above: Once for 1 Occurrenc es starting 12/12/2021 until 12/12/2021 End: 12-12-2021 Sjogrens syndrome-B extractable nuclear antibody [facility] Work Phone: Comment on above: Once for 1 Occurrenc es starting 12/12/2021 until 12/12/2021 Immunizations Immunization Date Immunization Notes Care Provider Simona galarza NEGATED: Highlighted row has not occurred!11-05-2019 influenza, injectable, quadrivalent, contains preservative Kendra Witt Other [facility] Other NEGATED: Highlighted row has not occurred!04-10-2019 influenza virus vaccine, unspecified formulation Bob Llanos [facility] Payers Date Payer Category Payer Self-pay [id number] 2002 Unknown [id number] 2.16. [id number] 2002 Unknown [id number] 2.16.84 0.1.253724.3.579.2.593 2002 Unknown [id number] 2.16.84 0.1.913715.3.579.2.593 2002 Unknown [id number] 2.16.84 0.1.514932.3.579.2.593 2002 Unknown [id number] 2.16.84 0.1.296039.3.579.2.593 2002 Unknown [id number] 2.16.84 0.1.409476.3.579.2.593 2002 Unknown [id number] 2.16.84 0.1.356074.3.579.2.593 2002 Unknown [id number] 2.16.84 0.1.771025.3.579.2.593 2002 Unknown [id number] 2.16.84 0.1.970403.3.579.2.593 2002 Unknown [id number] 2.16.84 0.1.890937.3.579.2.593 2002 Unknown [id number] 2.16.84 0.1.527717.3.579.2.593 2002 Unknown [id number] 2.16.84 0.1.247077.3.579.2.593 2002 Unknown [id number] 2.16.8 40.1.934798.3.579.2.1286 2002 Unknown [id number] 2.16.8 40.1.229505.3.579.2.1286 2002 Unknown [id number] 2.16.8 40.1.563815.3.579.2.1286 2002 Unknown [id number] 2.16.8 40.1.335846.3.579.2.727 2002 Unknown [id number] 2.16.8 40.1.801958.3.579.2.727 2002 Unknown [id number] 2.16.8 40.1.033574.3.579.2.727 2002 Unknown [id number] 2.16.8 40.1.334117.3.579.2.727 2002 Unknown [id number] 2.16.8 40.1.824849.3.579.2.727 2002 Unknown [id number] 2.16.84 0.1.993049.3.579.2.1259 2002 Unknown [id number] 2.16.84 0.1.789384.3.579.2.9 2002 Unknown [id number] 2.16.84 0.1.136834.3.579.2.1258 2002 Unknown [id number] 2.16.84 0.1.034379.3.579.2.9 2002 Unknown [id number] 2.16.84 0.1.693588.3.579.2.9 2002 Unknown [id number] 2.16.84 0.1.123912.3.579.2.9 2002 Unknown [id number] 2.16.84 0.1.385715.3.579.2.9 2002 Unknown [id number] 2.16.84 0.1.388820.3.579.2.9 2002 Unknown [id number] 2.16.84 0.1.878324.3.579.2.1259 1959 Unknown [id number] 2.1 6.840.1.366509.19 1959 Unknown [id number] Unknown [id number] 2.16.8 40.1.293610.3.579.2.531 Social History Date Type Detail Facility Sex Assigned At [facility] Start: 11-28-2021 Tobacco smoking stat us NHIS Never smoked tobacco [facility] Work Phone: Start: 11-28-2021 Tobacco use and exposure Smokeless tobacco non-user [employer] Phone: Start: 12-12-2021 Alcohol intake Ex-drinker (finding) [employer] Phone: Start: 12-12-2021 Tobacco Comment no longer vapes [employer] Phone: Start: 04-21-2021 [employer] Phone: Start: 2002 Sex Assigned At Not on file B [facility] [employer] Phone: Tobacco Current vaping o r e-cigarette use Smokeless Tobacco Use:. Vaping [facility] Tobacco smoking status No Smokin g Status Entered [facility] Start: 10-02-2022 Tobacco smoking stat [facility] Smoker (finding) [facility] Start: 2002 Sex Assigned At Female F [facility] Functional Status Date Assessment Result Facility 02-03-2024 Functional Status N/A [facility] 09-23-2023 Functional Status N/A [facility] 08-27-2023 Functional Status N/A [facility] 01-03-2023 Functional Status N/A [facility] 09-06-2022 Functional Status N/A [facility] 08-14-2022 Functional Status N/A [facility] Clinical Notes 11-06-2021 to 02-03-2024 Note Date & Type Note Facility 02-03-2024 Evaluation + Plan note Extrac ruby from: Title:ED Note Author:Duc Swanson PA-C te:02/03/24 Sore throat (J02.9: Acute ph aryngitis, unspecified) Viral URI (J06.9: Acute upper respiratory infection, unspecified) Orders: Group A Strep by PCR Rapid Strep w/rfx Diagnostic Tests Pending * Group A Strep by PCR 02/03/24 [facility] 08-27-2024 Hospital Discharge instructions Patient Education [...] medicines to help relieve symptoms, such as: Phkb-yrf-vmsllpx cold medicines. Cough suppressants. Coughing is a [...] and other clear broths. General instructions Take qrmd-lsd-qijbbae and prescription medicines only as told by [...] and water are not available, use hand tanker service attendant. Avoid touching your mouth, face, eyes, or [...] provider. Document Revised: 12/26/2021 Document Reviewed: 12/26/2021 [employer] Patient Education 2022 QA on Request. Follow Up Care 02/03/2024 09:23:13 With:Juvenal THORPE Address: [address] [place] [address]- Business (1) When:02/06/2024 11:12:27 With:SELAM HUNTER Address: [facility] [place] [address] Business (1) When:02/06/2024 11:12:21 [facility] 08-27-2024 NoteED Patient Education Note Infectious [...] to help relieve symptoms, such as: ? Jhsy-bmv-arslmhh cold medicines. ? Cough suppressants. Coughing is [...] other clear broths. General instructions ? Take dyuu-qrp-hxjfvec and prescription medicines only as told by [...] soap and water are not available,use hand tanker service attendant. ? Avoid touching your mouth, face, eyes, [...] Mood. These symptoms m (more content not included)...[facility] 09-23-2023 Hospital Discharge instructions Patient Education [...] provider. Document Revised: 02/19/2021 Document Reviewed: 02/19/2021 [employer] Patient Education 2022 QA on Request. Follow Up Care 09/23/2023 09:11:45 With:Juvenal THORPE Address: [address] [place] [address] Business (1) When:09/26/2023 11:44:07 [facility]03-20-2024 Hospital Discharge instructions Patient Education 08/27/2023 [...] provider. Document Revised: 01/09/2022 Document Reviewed: 01/09/2022 [employer] Patient Education 2022 QA on Request. 08/27/2023 12:34:16 Urinary Tract Infection, Adult, Otic-bh-Teps Urinary Tract Infection, Adult A urinary tract [...] Follow these instructions at home: Medicines Take yhnh-lpy-fvbchow and prescription medicines only as told by [...] provider. Document Revised: 01/05/2021 Document Reviewed: 01/05/2021 [employer] Patient Education 2022 QA on Request. 08/27/2023 12:34:16 Subchorionic Hematoma Subchorionic Hematoma A [...] provider. Document Revised: 02/19/2021 Document Reviewed: 02/19/2021 [employer] Patient Education 2022 QA on Request. Follow Up Care 08/27/2023 09:39:16 With:Juvenal THORPE Address: [address] , [place] [address]- Business (1) When:08/30/2023 12:05:10 With:SELAM HUNTER Address: [place] [address] Business (1) When:Within 3 Day(s) [facility]03-20-2024 Evaluation + Plan noteExtracted from: Title:ED [...] day(s), # 28 cap(s), Refills(s) 0, Pharmacy: [id number], 170, cm, 08/27/23 9:49:00 EDT, Height/Length Dosing, 78.7, kg, 08/27/23 9:49:00 EDT, Weight Dosing ABO/Rh Basic Metabolic Panel Beta hCG Quantitative CBC w/ Auto Diff eGFR Extra Blue Tube Extra SST Tube UA with Cult Rflx Urine Culture US 1st Trimester US Transvaginal Diagnostic Tests Pending * Urine Culture 08/27/23 [facility]07-29-2023 Hospital Discharge instructions Patient Education 01/04/2023 00:13:01 Pharyngitis, Giwi-ue-Gnsk Pharyngitis Pharyngitis is a sore throat (pharynx). [...] Follow these instructions at home: Medicines Take plsq-jco-hijdyht and prescription medicines only as told by [...] and water are not available, use hand tanker service attendant. Do not touch your eyes, nose, or [...] provider. Document Revised: 08/22/2021 Document Reviewed: 08/22/2021 [employer] Patient Education 2022 QA on Request. Follow Up Care 01/03/2023 22:32:55 With:Thony Carl Address: [address] [place] [id number] [facility] (1) When:01/06/2023 Comments:Follow-up with your primary care provider in 3 to 5 days. If symptoms worsen, do not improve, or new symptoms arise please report back to emergency department for further evaluation. [facility]07-28-2023 Evaluation + Plan noteExtracted from: Title:ED [...] q12hr, # 20 cap(s), Refills(s) 0, Pharmacy: [facility], 170, cm, 01/03/23 22:44:00 EDT, Height/Length Dosing, 75.3, kg, 01/03/23 22:44:00 EDT, Weight Dosing ondansetron, 4 mg = 1 tab(s), Oral, q8hr, PRN Nausea/Vomiting, # 12 tab(s), Refills(s) 0, Pharmacy: [facility], 170, cm, 01/03/23 22:44:00 EDT, Height/Length Dosing, 75.3, kg, 01/03/23 22:44:00 EDT, Weight Dosing ondansetron, 12 mg = 3 tab(s), Tab-Dis, Oral, Once, Stop date 01/03/23 23:45:00 EDT, STAT, Start date 01/03/23 23:45:00 EDT, 01/03/23 23:45:00 EDT Automated Diff Basic Metabolic Panel Beta hCG Quantitative CBC w/ Auto Diff eGFR Hepatic Function Panel Lipase Level [facility]04-19-2023 Evaluation note* Encounter Date Diagnosis Assessment [...] of symptoms occur by end of treatment. [facility] Other 03-31-2023 Hospital Discharge instructions Patient Education [...] Follow these instructions at home: Medicines Take chvb-etg-ojnkpkj and prescription medicines only as told by [...] important. Where to find more information [employer]: www.acog.org [place] [...] 11/19/2001 Document Revised: 09/17/2019 Document Reviewed: 07/01/2017 [employer] Patient Education 2019 QA on Request. Follow Up Care 09/06/2022 10:42:16 With:Juvenal THORPE Address: [address] [place] [address]- Business (1) When:09/09/2022 13:46:05 [facility]03-09-2023 Hospital Discharge instructions Patient Education 08/14/2022 22:12:46 Abdominal Pain During , Wtfg-st-Rans Abdominal Pain During Belly (abdominal) pain is [...] keep your pee (urine) pale yellow. Take oifu-vgc-qsxshcj and prescription medicines only as told by [...] 05/14/2010 Document Revised: 09/13/2019 Document Reviewed: 08/28/2017 [employer] Patient Education 2020 QA on Request. 08/14/2022 22:12:46 Abdominal Pain, Adult, Xgca-qj-Shzt Abdominal Pain, Adult Many things can cause belly (abdominal) pain. Most times, belly pain is not dangerous. Many cases of belly pain can be watched and treated at home. Sometimes, though, belly pain is serious. Your doctor will try to find the cause of your belly pain. Follow these instructions at home: Medicines Take igvh-nym-wyhyssm and prescription medicines only as told by [...] your belly pain for any changes. Take nxjn-ezx-dtefqfs and prescription medicines only as told by [...] 11/11/2008 Document Revised: 10/04/2019 Document Reviewed: 10/04/2019 [employer] Patient Education 2020 QA on Request. Follow Up Care 08/14/2022 18:41:38 With:Juvenal THORPE Address: [address] , [place] [address]- Business (1) When:08/17/2022 Comments:Follow-up with Dr. Thorpe for further evaluation of your . With:Juventino Carbajal Address: [address] [place] [address]- When:08/17/2022 Comments:Follow-up with your primary care provider in 3 to 5 days. If symptoms worsen, do not improve, or new symptoms arise please report back to emergency department for further evaluation. [facility]01-16-2023 Evaluation note* Encounter Date Diagnosis Assessment [...] return precautions. Jun, Cough (ICD-10 - R05.9) [facility] Other 06-07-2022 Evaluation note* Encounter Date Diagnosis [...] Pt understood and agreed to tx plan. [facility] Other [id number] Evaluation note* Encounter Date Diagnosis Assessment Notes [...] condition October, Sore throat (ICD-10 - J02.9) [facility] Other Evaluation + Plan note No data available for this section [facility] Work Phone: Evaluation noteNo InformationNort [employer] [facility] Other History general Narrative - Reported* Type Description Date Medical History fx lt elbow at age 7 Surgical History surgical repair of left elbow f racture at age 7 Hospitalization History see surgical hx [place] [facility] Other Progress note No data available for this section [facility] Summary Purpose Family History No Family [...] section and content) DATE CREATED AUTHOR 01/05/2022 [facility] DATE CREATED AUTHOR AUTHOR'S ORGANIZ ATION 07/15/2022 [facility] DATE CREATED AUTHOR AUTHOR'S ORGANIZ ATION 10/10/2022 [facility] DATE CREATED AUTHOR AUTHOR'S ORGANIZ ATION 12/26/2023 [facility] DATE CREATED AUTHOR AUTHOR'S ORGANIZ ATION 02/05/2024 [facility] DATE CREATED AUTHOR AUTHOR'S ORGANIZ ATION 02/06/2024 [facility] DATE CREATED AUTHOR AUTHOR'S ORGANIZ ATION 03/16/2024 [facility] [employer] Care Teams (unrecognized sec tion and content) Personnel Name: SELAM HUNTER CNP Address: Address: [address] [place] [id number] Team Status: Active Member Role Status Dates [...] BE BASED ON THE PRIMARY CLINICAL RECORDS. [employer] provides no warranty or guarantee of the accuracy or completeness of information in this document.
[2024-03-18 16:19] VITALS: BP 117/65; PULSE 88
== END 2024-03-18 16:55 | disposition home or self-care (01) ==
LOC: FBCO 06:58 → FBC 16:14
PROVIDERS: Visit Provider Obstetrics & Gynecology
DX: O43.893 Other placental disorders, third trimester (principal); Z3A.36 36 weeks gestation of pregnancy
CPT/HCPCS: 59025

== ENCOUNTER 2024-03-22 07:06 | Outpatient (OUT) | payer OTHER, SELFPAY ==
--- OUTSIDE RECORDS SUMMARY | 2024-03-22 07:09 | XMS_ITS | CCD ---
Author Organization [facility] Care Team Providers Care Mat Linker Name Role Phone Kednra Witt Unavailable Michael Oneil Unavailable Unavailable Primary Care Provider JUAQUIN Amos Referring Unavailable MIRI, DR NEAL Consulting Unavailable REQUEST, NONE LISTED Primary Care Unavaila ble MIRI, DR NEAL Attending Unavailable MIRI, DR NEAL Admitting Unavailable REQUEST, DR NIEVES LISTED Primary Care Unavaila ble MIRI, DR [...] Unavailable ZIEBER, DR MARS Mccarthy Consulting Unavailable [place], DR SOFIA Hull Consulting Unavailable REQUEST, DR NONE LISTED Primary Care Unavaila ble MIRI, DR NEAL Attending Unavailable MIRI, DR NEAL Admitting Unavailable MIRI, DR NEAL Consulting Unavailable KARASIK, DR YANEZ Consulting Unavailable REQUEST, DR NONE LISTED Primary Care Unavaila ble MIRI, DR NEAL Attending Unavailable MIRI, DR NEAL Admitting Unavailable MIRI, DR NEAL Consulting Unavailable AGUBOSIMZAN Consulting Unavailable MIRI, DR NEAL Procedure Practitioner Unavailab ricardo [place], DR SOFIA Hull Consulting Unavailable EVER, NONE LISTED Primary Care Unavaila ble MIRI, DR NEAL Attending Unavailable MIRI, DR NEAL Admitting Unavailable MIRI, DR NEAL Consulting Unavailable [place], Viet Unavailable NONE, XXXX Primary Care Physician [...] Attending Unavailable SELAM HUNTER Primary Care Unavailable Eimly Harper Attending Unavailable SELAM HUNTER Admitting Unavailable SELAM HUNTER Attending Unavailable Siva Schulte Attending Unavailable SELAM HUNTER Primary Care Unavailable JUVENAL THORPE Attending Unavailable SHABANA CORRAL Attending Unavailable MIRI, JUVENAL Attending Unavailable SHABANA CORRAL Attending Unavailable MIRI, JUVENAL Attending Unavailable ELLIS SHABANA Attending Unavailable MIRI, JUVENAL Attending Unavailable SHABANA CORRAL Attending Unavailable Unavailable Primary Care Provider Unavailabl e Allergies Allergy Classification Reported Allergen(s) Allergy Type Date of Onset Reaction(s) Facility (1 source) No Known Medication Allergies; Translations: [No Known Medication Allergies] Propensity to adverse reactions (disorder) [facility] Repository Medications Current Medications Medication Drug [...] day(s), # 28 cap(s), Refills(s) 0, [facility]acy: [id number], 170, cm, 08/27/23 9:49:00 EDT, Height/Length Dosing, 78.7, kg, 08/27/23 9:49:00 EDT, Weight Dosing Start Date: 08/27/23 Stop Date: 09/03/23 Status: Ordered Start: 01-03-2023 take 1 capsule by [facility] every twelve hours Keflex 500 mg Cap 500 mg = 1 cap(s), Oral, q12hr, # 20 cap(s), Refills(s) 0, Pharmacy: [facility], 170, cm, 01/03/23 22:44:00 EDT, Height/Length Dosing, 75.3, kg, 01/03/23 22:44:00 EDT, Weight Dosing Start Date: 01/03/23 Status: Ordered Citalopram (2 sources) Serotonin Reuptake Inhibitor Citalopram Hydrobromide Active dexamethasone 1 mg/ml / neomycin 3.5 mg/ml / polymyxin b 68018 unt/ml ophthalmic suspension (2 sources) Aminoglycoside Antibacterial, Polymyxin-class Antibacterial, Corticosteroid Start: 09-26-19 take 1 drop(s) into the eye(s) four times daily Maxitrol 3.5-65029-5.1 1 drop into affected eye Ophthalmic Four times a day for 7 days Sep, Active ethinyl estradiol 0.02 mg / norethindrone acetate 1 mg oral tablet (6 sources) Estrogen Start: 04-10-20 Microgestin 06/28 20 mcg-1 mg oral tablet Refill(s) 0 Start Date: 04/10/19 Status: Ordered ferrous sulfate (3 sources) take 1 tablet by mouth in the morning Ferrous Sulfate (IRON PO) Take 1 tablet by mouth in the morning. Active fluticasone propionate 0.05 mg/actuat metered dose nasal [...] 3 hrs for 2 days Jun, Active magnesium oxide 400 mg oral tablet (3 sources) Start: 12-01-2023 End: 06-28-2024 take 1 tablet by mouth once daily magnesium oxide (Mag-Ox) 400 MG tablet Indications: Second trimester Take 1 tablet (400 mg) by mouth Daily 30 tablet 6 12/01/2023 06/28/2024 Active [place] (No Known Home Meds) (1 source) Start: 06-26-2021 [place] (No Known Home Meds) Active June 26, 2021 1:00am ondansetron 8 mg disintegrating oral tablet (5 sources) Serotonin-3 Receptor Antagonist Start: 06-24-2022 take [...] 06, 2021 1:00am June 27, 2021 12:00am take 1 tablet by faby th every eight hours as needed ondansetron (Zofran) 4 MG tablet Take 4 mg by mouth every 8 (eight) hours if needed Active Zofran ODT 4 mg Tab-Dis (10 sources) Start: 01-03-2023 take 1 tablet by mouth every eight hours as needed for nausea Zofran ODT 4 mg Tab-Dis 4 mg = 1 tab(s), Oral, q8hr, PRN Nausea/Vomiting, # 12 tab(s), Refills(s) 0, Pharmacy: [facility], 170, cm, 01/03/23 22:44:00 EDT, Height/Length Dosing, 75.3, kg, 01/03/23 22:44:00 EDT, Weight Dosing Start Date: 01/03/23 Status: Ordered Start: 06-09-2019 take 1 tablet by faby th three times daily Zofran ODT 4 mg Tab-Dis 4 mg = 1 tab(s), Oral, TID, # 15 tab(s), Refills(s) 0, Pharmacy: [facility] Start Date: 06/09/19 Status: [...] take 450 mg by mouth twice daily Lester Carbonate Discontinued 450 MG PO Twice daily [...] with other respiratory manifestations Episodic Menstrual disorders (8 sources) Irregular menstruation, unspecified; Translations: [Missed period] Onset: 10-02-2021 Chronic Miscellaneous mental health disorders [...] 10-03-2021 Episodic Other and delivery including normal (12 sources) Encounter for routine follow-up; Translations: [Encounter [...] Pain; Translations: [Pain, unspecified] Onset: 01-03-2023 Episodic Residual codes; unclassified (2 sources) Gestation period, 35 weeks; Translations: [35 weeks gestation of ] 03-15-2024 Episodic Spontaneous (1 source) Complete inevitable miscarriage [...] WEEKS GESTATION OF ] Onset: 09-07-2021 Episodic Residual codes; unclassified (3 sources) H/O: miscarriage; Translations: [Personal history of other complications of , childbirth and the puerperium] Onset: 09-02-2023 09-02-2023 Episodic Screening and history of mental health and substance abuse codes (1 source) Personal history of nicotine dependence; Translations: [PERSONAL HISTORY OF NICOTINE DEPEND] Onset: 01-11-2022 Episodic Unclassified (2 sources) Cough R05.9 Onset: 11-13-2021 Resolved: 11-13-2021 Results Test Name Value Interpretation Reference Range Facility Urinalysis macro (dipstick) panel (U)on 03-15-2024 Bilirubin, UA Negative Negative - 4(70) +++ mg/dL [facility] Blood, UA Negative Negative - 50 Miguel Ángel/mcL [facility] Clarity, UA Clear [facility] Color, UA Yellow [facility] Glucose, UA Negative Negative - 2000(110) ++++ mg/dL [facility] Interpretation and review of laboratory results Abnormal [facility] Ketones, UA Negative Negative - 160(16) ++++ mg/dL [facility] Leukocytes, UA Positive Negative - 500+++ Stefania/mcL [facility] Comment on above: small Nitrite, UA Negative Negative - Positive [facility] pH, UA 7.5 5 - 9 [facility] Protein, UA Negative Negative - 2000(20) ++++ mg/dL [facility] Spec Grav, UA 1.020 1 - 1.03 [facility] Urobilinogen, UA 4.0 0.2 - 12 mg/dL [facility] Grp A Strp PCRon 02-04-2024 Grp A Strp Intrl Ctrl Pass Normal [facility] Comment on above: Order Comment: Order Added on by Discern Rule. Performed By: #### 1 [id number] #### [facility] [address] [place] [address] S. pyogenes DNA ALFREDO+probe Ql (Throat) Negative Normal [facility] Comment on above: Order Comment: Order Added on by Discern Rule. Result Comment: Test ing performed using DNA amplification. Performed By: #### 1 [id number] #### [facility] [address] [place] [address] ED Clinical Summaryon 2023 ED Clinical Summary ED Clinical Summary [address] [address] ED Clinical Summary Person Information Name: KAILYN ACKERMAN [place] Age: 23 Years : 2000 Sex: Female Language: Azerbaijani PCP: SELAM HUNTER CNP Marital Status: Single Phone: [phone] Visit Id: Visit Reason: Headache; Body aches; [...] 02/03/2024 11:17:23 02/03/2024 11:17:23 02/03/2024 11:17:23 ADDRESS: [address] [place] [phone] PHYS DOC NOTES: MEDICAL INFORMATION: Prescriptions Given: [...] Adult Follow up: With: Address: When: [facility], [address] [place] [address] [place] [phone] Business (1) In 3 days 02/06/2024 With: Address: When: SELAM HUNTER [facility] [address], [place] [address] Business (1) In 3 days 02/06/2024 DIAGNOSIS: Sore throat; Viral URI Normal [facility] ED Note-Physicianon 02-03-20 ED Note-Physician ED [...] URI and will continue to follow-up with SENIOR LINUX SYSTEMS ADMINISTRATOR for further evaluation and management. We discussed [...] days 02/06/2024 (more content not included)... Normal [facility] Comment on above: Result Comment: Elec tronically Signed By: Duc Swanson PA-C\.br\Date and Time Signed: 02/03/24 13:23 EDT\.br\Electronically Co-Signed By: Siva Schulte DO\.br\Date and Time Co-Signed: 02/03/24 14:44 EDT ED Patient Summaryon 024 ED Patient Summary ED Patient Summary [place] [id number] Patient Discharge Instructions Person Information Name: GARCÍA ACKERMANNZIClement Gordon Age: 23 Years Arrival Date: 02/03/2024 09:21:41 Discharge Diagnosis: Sore throat; Viral URI Primary Care Physician: SELAM HUNTER CNP Provider Information Primary Provider: Siva Schulte DO Advanced Manifold Builder:Duc Swanson PA-C The exam and treatment you received in the Emergency Department were for an urgent problem and are not intended as complete care. It is important that you follow up with a doctor, nurse practitioner, or physician?s office assistant receptionist for ongoing care. If your symptoms become worse or you do not improve as expected and you are unable to reach your usual health care provider, you should return to the Emergency Department. We are available 24 hours a day. KAILYN ACKERMAN has been given the following list of patient education materials, prescriptions and follow-up instructions: Follow-up Instructions: With: Address: When: Juvenal THORPE [facility], [address] [place] [address] [place] [address] Business (1) In 3 days 02/06/2024 With: Address: When: SELAM HUNTER [facility] [place] [address] Business (1) In 3 days 02/06/2024 In the event that this physician does not participate in your insurance network, please consult with your insurance company to find a nearby participating provider. Patient Education Materials: Upper Respiratory Infection, Adult A MESSAGE TO ALL PATIENTS REGARDING OPIOIDS PRESCRIPTION OPIOIDS: WHAT YOU NEED TO KNOW Prescription opioids can be used to help relieve ruccphfb-wo-zppwpq pain and are often prescribed following a [...] of op (more content not included)... Normal [facility] MICRO OTHER TESTSOrdered By: Nita Delgadillo on 02-03-2024 S. pyogenes Ag IA.rapid Ql (Throat) Negative (02/03/24 11:07 AM) Normal Negative [facility] MICRO OTHER TESTSOrdered By: Asuncion Goncalves on 02-03-2024 Rapid COV Int NEG Ctl Pass (02/03/24 9:30 AM) Normal [facility] Rapid COV Int POS Ctl Pass (02/03/24 9:30 AM) Normal [facility] SARS-CoV+SARS-CoV-2 (COVID-19) Ag IA.rapid Ql (Resp) Not Detected 1 (02/03/24 9:30 AM) Normal Not Detected [facility] Comment on above: Interpretive Data: [employer] Veritor System for Rapid Detection of SARS-CoV-2 [...] other viruses or pathogens; and, in the [facility], this test is only authorized [...] Rapid COV Int NEG Ctl Pass Normal [facility] Comment on above: Performed By: #### 2 [id number] #### [facility] [address] [place] [address] Rapid COV Int POS Ctl Pass Normal [facility] Comment on above: Performed By: #### 2 [id number] #### [facility] [address] [place] [address] SARS-CoV+SARS-CoV-2 (COVID-19) Ag IA.rapid Ql (Resp) Not detected Normal Not Detected [facility] Comment on above: Result Comment: The BD Veritor? System for Rapid Detection of SARS-CoV-2 [...] or revoked sooner. Performed By: #### 2 [id number] #### [facility] [address] [place] [address] Rapid Strep w/rfxon 02-03-20 24 S. pyogenes Ag IA.rapid Ql (Throat) Negative Normal Negative [facility] Comment on above: Performed By: #### 2 [id number] #### [facility] [address] [place] [address] ED Note-Physicianon 09-26-19 24 ED Note-Physician Basic [...] than 90,000. Ultrasound was obtained discussed with biomedical equipment technician. Intrauterine consistent with stated gestational age. Stable heart rate. Patient continues to demonstrate subchorionic hematoma. Also left-sided ovarian cyst similar to previous. Results were discussed with the patient. She is discharged home to continue pelvic rest and follow-up with SENIOR LINUX SYSTEMS ADMINISTRATOR. Patient was encouraged to return to the [...] medications Follow-up With When Contact Information Juvenal MIRI In 3 days 09/26/[address] [place] [address]- Business (1) Additional Instructions: Patient Education Subchorionic [...] made to ensure accuracy, however, inadvertently computerized new product trainer mistakes may be present. Appropriate healthcare PPE [...] Yes., 04/10/2019 Lab Results Beta hCG Qnt: 58830 mIU/mL High (09/23/23 09:28:00) Diagnostic Results No qualifying data available. Normal [facility] Comment on above: Result Comment: Elec tronically Signed By: Venkat Lockwood PA-C\.br\Date and Time Signed: 09/23/23 11:45 EDT\.br\Electronically Co-Signed By: Wil Chandra DO\.br\Date and Time Co-Signed: 09/26/23 07:37 EDT [facility] Quanton 09-23-2023 [place] [address] m[IU]/mL High 1-3 [facility] Comment on above: Result Comment: 'F N ON < 1 - 3' ' 0.2 - 1 WEEK = 5 TO 50' ' 1 - 2 WEEKS = 50 - 500' ' 2 - 3 WEEKS = 100 - 5000' ' 3 - 4 WEEKS = 500 - 29392' ' 4 - 5 WEEKS = 1000 - 93072' ' 5 - 6 WEEKS = 66628 - 456576' ' 6 - 8 WEEKS = 57627 - 267065' ' 8 - 12 WEEKS = 19504 - 159512' Performed By: #### 2 [id number] ####[facility] [address] [place] [address] CHEMISTRYOrdered By: SYSTEM SYSTEM on 09-23-2023 [place] [address] m[IU]/mL High 1 - 3 mIU/mL [facility] Comment on above: Result Comment: 'F N ON < 1 - 3' ' 0.2 - 1 WEEK = 5 TO 50' ' 1 - 2 WEEKS = 50 - 500' ' 2 - 3 WEEKS = 100 - 5000' ' 3 - 4 WEEKS = 500 - 35117' ' 4 - 5 WEEKS = 1000 - 08110' ' 5 - 6 WEEKS = 03431 - 888557' ' 6 - 8 WEEKS = 26252 - 881392' ' 8 - 12 WEEKS = 63608 - 711670' Consent for Treatmenton 09-07 Consent for Treatment [id number]#[id number] Normal [facility] Discharge Instructionson Discharge Instructions [id number] Normal [facility] ED Clinical Summaryon 2023 ED Clinical Summary [address] [address] ED Clinical Summary Person Information [facility] 23 [facility] : 2000 Sex: Female Language: Azerbaijani PCP: NONE, XXXX Marital Status: Single Phone: [phone] MRN: Visit Id: Visit Reason: Back pain; [...] 09/23/2023 11:52:16 09/23/2023 11:52:16 09/23/2023 11:52:16 ADDRESS: [address] [place] [phone] PHYS DOC NOTES: MEDICAL INFORMATION: Prescriptions Given: [...] Subchorionic Hematoma Follow up: With: Address: When: [facility], [address] [place] [address] [place] [address] Business (1) In 3 days 09/26/2023 DIAGNOSIS: Other antepartum hemorrhage, unspecified trimester; Subchorionic bleed; Vaginal bleeding in Normal [facility] ED Patient Education Noteon 09-23-2023 ED [...] provider. Document Revised: 02/19/2021 Document Reviewed: 02/19/2021 [employer] Patient Education ? 2022 [employer]. Normal [facility] ED Patient Summaryon 024 ED Patient Summary [address] [address] Patient Discharge Instructions Person Information Name: KAILYN ACKERMAN Age: 23 Years Arrival Date: 09/23/2023 09:10:07 Discharge Diagnosis: Other antepartum hemorrhage, unspecified trimester; Subchorionic bleed; Vaginal bleeding in Primary Care Physician: NONE, XXXX Provider Information Primary Provider: Wil Chandra DO Advanced Manifold Builder:Venkat Leal PA-C The exam and treatment you received in the Emergency Department were for an urgent problem and are not intended as complete care. It is important that you follow up with a doctor, nurse practitioner, or physician?s office assistant receptionist for ongoing care. If your symptoms become worse or you do not improve as expected and you are unable to reach your usual health care provider, you should return to the Emergency Department. We are available 24 hours a day. KAILYN ACKERMAN has been given the following list of patient education materials, prescriptions and follow-up instructions: Follow-up Instructions: With: Address: When: Juvenal THORPE [facility], [address] [place] [address] [place] [address] Business (1) In 3 days 09/26/2023 In the event that this physician does not participate in your insurance network, please consult with your insurance company to find a nearby participating provider. Patient Education Materials: Subchorionic Hematoma A MESSAGE TO ALL PATIENTS REGARDING OPIOIDS PRESCRIPTION OPIOIDS: WHAT YOU NEED TO KNOW Prescription opioids can be used to help relieve pbwdsljy-tp-wzegrx pain and are often prescribed following a [...] care p (more content not included)... Normal [facility] Prescriptions/Work Noteson 0 09-23-2023 Prescriptions/Work Notes [id number] Normal [facility] US 1st Trimesteron 09-23-2023 US 1st [...] 66% of the gestational sac circumference. [place] Rump Length: 3.2 cm, which corresponds Composite [...] Size = Dates Uterus Position Anteverted Normal [facility] C Urineon 08-29-2023 Bacteria identified Cx [...] Locations R1: This test was performed at: [facility], [address] [place] [address], [id number]- , [place], Normal [facility] Comment on above: Performed By: #### 4 [id number] ####[address] [address] ABO/Rhon 08-27-2023 ABO/Rh Positive Invalid Interpretation Code [facility] Comment on above: Performed By: #### 2 [id number] ####[place] [address] [place] [address] BLOOD BANKOrdered By: Liza Xavier on 08-27-2023 ABO/Rh Interp Positive Invalid Interpretation Code [facility] Subsection BMPon 08-27-2023 Anion gap [Moles/Vol] 11 mmol/L Normal 6-16 [facility] Comment on above: Performed By: #### 1 [id number], [id number], [id number] ####[facility] [address] [place] [address] Calcium [Mass/Vol] 9.3 mg/dL Normal 8.9-11.1 [facility] Comment on above: Performed By: #### 1 [id number], [id number], [id number] ####[facility] [address] [place] [address] Chloride [Moles/Vol] 104 mmol/L Normal 101-111 [facility] Comment on above: Performed By: #### 1 [id number], [id number], [id number] ####[facility] [address] [facility] [address] CO2 [Moles/Vol] 24 mmol/L Normal 21-31 [facility] Comment on above: Performed By: #### 1 [id number], [id number], [id number] ####[facility] [address] [facility] [address] Creatinine [Mass/Vol] 0.6 mg/dL Normal 0.5-1.3 [facility] Comment on above: Performed By: #### 1 [id number], [id number], [id number] ####[facility] [address] [facility] [place] [address] Glucose [Mass/Vol] 87 mg/dL Normal 55-199 [facility] Comment on above: Performed By: #### 1 [id number], 3009831, [id number] ####[facility] [address] [facility] [address] Potassium [Moles/Vol] 3.7 mmol/L Normal 3.5-5.3 [facility] Comment on above: Performed By: #### 1 [id number], 5709770, 5770160 ####[facility] [address] [facility] [address] Sodium [Moles/Vol] 135 mmol/L Normal 135-145 [facility] Comment on above: Performed By: #### 1 [id number], 1168786, 2326662 ####[facility] [address] [place] [address] Urea nitrogen [Mass/Vol] 8 mg/dL Normal 5-21 [facility] Comment on above: Performed By: #### 1 [id number], 5978011, 8511970 ####[facility] [address] [place] [address] Urea nitrogen/Creatinine [Mass ratio] 13 No Units Normal 10-20 [facility] Comment on above: Performed By: #### 1 [id number], 2209982, [id number] ####[facility] [address] [place] [address] [facility] Quanton 08-27-2023 [place] [address] m[IU]/mL High 1-3 [facility] Comment on above: Result Comment: 'F N ON < 1 - 3' ' 0.2 - 1 WEEK = 5 TO 50' ' 1 - 2 WEEKS = 50 - 500' ' 2 - 3 WEEKS = 100 - 5000' ' 3 - 4 WEEKS = 500 - 51258' ' 4 - 5 WEEKS = 1000 - 49963' ' 5 - 6 WEEKS = 70156 - 137336' ' 6 - 8 WEEKS = 91652 - 340634' ' 8 - 12 WEEKS = 71678 - 591199' Performed By: #### 2 [id number] ####[facility] [address] [place] [address] CBC w/ Auto Diffon 4 Basophils/100 WBC (Bld) 0.6 % Normal 0.0-2.0 [facility] Comment on above: Performed By: #### 1 [id number], [id number], 8366084 ####[facility] [address] [place] [address] Basophils/Leukocytes Auto (Bld) [Pure # fraction] 0.0 E9/L Normal 0.0-0.2 [facility] Comment on above: Performed By: #### 1 [id number], 7937565, 9738535 ####[facility] [address] [place] [address] Eosinophils (Bld) [#/Vol] 0.1 E9/L Normal 0.0-0.5 [facility] Comment on above: Performed By: #### 1 6693781, 1908944, 3854367 ####[address] [address] Eosinophils/100 WBC (Bld) 2.0 % Normal 0.0-8.0 [facility] Comment on above: Performed By: #### 1 [id number], 6256215, [id number] ####[address] [address] Erythrocyte distribution width (RBC) [Ratio] 15.0 % High 10.9-14.2 [facility] Comment on above: Performed By: #### 1 0682370, 1707454, 6884781 ####[address] [address] Hematocrit (Bld) [Volume fraction] 37.4 % Normal 34.0-46.0 [facility] Comment on above: Performed By: #### 1 1683869, 4750803, 0221868 ####[address] [address] Hemoglobin (Bld) [Mass/Vol] 12.7 g/dL Normal 12.0-16.0 [facility] Comment on above: Performed By: #### 1 9373063, 4384536, 9634601 ####[address] [address] Lymphocytes (Bld) [#/Vol] 2.0 E9/L Normal 1.0-4.0 [facility] Comment on above: Performed By: #### 1 2754792, 2528065, 2051503 ####[address] [address] Lymphocytes/100 WBC (Bld) 28.1 % Normal 14.0-50.0 [facility] Comment on above: Performed By: #### 1 [id number], 7603299, [id number] ####[address] [address] MCH (RBC) [Entitic mass] 28.4 pg Normal 27.0-34.0 [facility] Comment on above: Performed By: #### 1 [id number], 5573745, [id number] ####[address] [address] MCHC (RBC) [Mass/Vol] 33.8 g/dL Normal 31.4-36.0 [facility] Comment on above: Performed By: #### 1 [id number], 8678402, 7608205 ####[address] [address] MCV (RBC) [Entitic vol] 84.0 fL Normal 80.0-100.0 [facility] Comment on above: Performed By: #### 1 [id number], 8684481, 7146618 ####[address] [address] Monocytes (Bld) [#/Vol] 0.5 E9/L Normal 0.2-1.0 [facility] Comment on above: Performed By: #### 1 [id number], 6809643, 4003444 ####[address] [address] Neutrophils (Bld) [#/Vol] 4.5 E9/L Normal 2.0-7.5 [facility] Comment on above: Performed By: #### 1 6584552, 0254668, 4946733 ####[address] [address] Neutrophils/100 WBC (Bld) 61.9 % Normal 36.0-75.0 [facility] Comment on above: Performed By: #### 1 [id number], 0091594, 8259991 ####[address] [address] Platelet mean volume (Bld) [Entitic vol] 7.9 fL Normal 6.4-10.8 [facility] Comment on above: Performed By: #### 1 [id number], 8634005, 5286727 ####[facility] [address] [place] [address] Platelets (Bld) [#/Vol] 252.0 E9/L Normal 150.0-500.0 [facility] Comment on above: Performed By: #### 1 8062949, 8604920, 9146097 ####[facility] [address] [place] [address] RBC (Bld) [#/Vol] 4.5 E12/L Normal 4.3-5.9 [facility] Comment on above: Performed By: #### 1 [id number], 0065627, [id number] ####[facility] [address] [place] [address] WBC corrected for nucl RBC Auto (Bld) [#/Vol] 7.2 E9/L Normal 4.0-11.0 [facility] Comment on above: Performed By: #### 1 [id number], 0308021, 6920689 ####[facility] [address] [place] [address] CHEMISTRYOrdered By: SYSTEM SYSTEM on 08-27-2023 Anion [...] 199 mg/[place] [address] m[IU]/mL High 1 - 3 mIU/mL [facility] Comment on above: Result Comment: 'F N ON < 1 - 3' ' 0.2 - 1 WEEK = 5 TO 50' ' 1 - 2 WEEKS = 50 - 500' ' 2 - 3 WEEKS = 100 - 5000' ' 3 - 4 WEEKS = 500 - 56455' ' 4 - 5 WEEKS = 1000 - 23435' ' 5 - 6 WEEKS = 52557 - 960045' ' 6 - 8 WEEKS = 60680 - 024539' ' 8 - 12 WEEKS = 78010 - 564300' Potassium [Moles/Vol] 3.7 mmol/L Normal 3.5 - 5.3 mmol/L Remisol Chem Sodium [Moles/Vol] 135 mmol/L Normal 135 - 145 mmol/L Remisol Chem Urea nitrogen [Mass/Vol] 8 mg/dL Normal 5 - 21 mg/d L Remisol Chem Urea nitrogen/Creatinine [Mass ratio] 13 mg/mg Normal 10 - 20 Remisol Chem Consent for Treatmenton 08-08 Consent for Treatment [id number] Normal [facility] Discharge Instructionson Discharge Instructions [id number] Normal [facility] ED Clinical Summaryon 2023 ED Clinical Summary [place] [id number] ED Clinical Summary Person Information Name: KAILYN ACKERMAN [facility] Age: 22 Years : 2000 Sex: Female Language: Azerbaijani PCP: SELAM HUNTER CNP Marital Status: Single Phone: [phone] MRN: Visit Id: Visit Reason: Vaginal bleeding [...] 08/27/2023 12:34:16 08/27/2023 12:34:16 08/27/2023 12:34:16 ADDRESS: [address] [place] [phone] PHYS DOC NOTES: MEDICAL INFORMATION: Prescriptions Given: Medications to Continue Taking That Have Changed [facility], [address] [place], [place] [phone], [phone] START: cephalexin (Keflex 500 mg Cap) 1 [...] Urinary Tract Infection; Urinary Tract Infection, Adult, Pgib-es-Zpqj; Subchorionic Hematoma Follow up: With: Address: When: Juvenal THORPE [facility], [address] [place] [address] [place] [address] Business (1) In 3 days 08/30/2023 With: Address: When: [place] [address] Business (1) In 3 days DIAGNOSIS: Other antepartum hemorrhage, unspecified trimester; Subchorionic bleed; UTI (urinary tract infection) during ; Vaginal bleeding in Normal [facility] ED Note-Physicianon 08-27-19 ED Note-Physician Basic [...] day(s), # 28 cap(s), Refills(s) 0, Pharmacy: [facility], 170, cm, 03/20/24 9:49:00 EDT, Height/Length Dosing, 78.7, kg, 08/27/23 [...] Oral, q6hr Follow-up With When Contact Information Juvenalmagdiel RAMIREZO In 3 days 08/30/[address] , [place] [address]- Business (1) Additional Instructions: SELAM HUNTER In 3 days [address] [place] [address]- Business (1) Additional Instructions: Patient Education and Urinary Tract Infection Urinary Tract Infection, Adult, Gvwy-hh-Nbck Subchorionic Hematoma Attestation Patient seen and evaluated by the physician office assistant receptionist. Attending physician was present in the emergency department and s (more content not included)... Normal [facility] Comment on above: Result Comment: Elec [...] provider. Document Revised: 01/09/2022 Document Reviewed: 01/09/2022 [employer] Patient Education ? 2022 [employer] Urinary Tract Infection, Adult A urinary [...] swelling (inflammation) (more content not included)... Normal [facility] ED Patient Summaryon 024 ED Patient Summary [place] [id number] Patient Discharge Instructions Person Information Name: KAILYN ACKERMAN Age: 22 Years Arrival Date: 08/27/2023 09:37:12 Discharge Diagnosis: Other antepartum hemorrhage, unspecified trimester; Subchorionic bleed; UTI (urinary tract infection) during ; Vaginal bleeding in Primary Care Physician: SELAM HUNTER CNP Provider Information Primary Provider: Emily Harper M.D. Advanced Manifold Builder:None The exam and treatment you received in the Emergency Department were for an urgent problem and are not intended as complete care. It is important that you follow up with a doctor, nurse practitioner, or physician?s office assistant receptionist for ongoing care. If your symptoms become worse or you do not improve as expected and you are unable to reach your usual health care provider, you should return to the Emergency Department. We are available 24 hours a day. KAILYN ACKERMAN has been given the following list of patient education materials, prescriptions and follow-up instructions: Follow-up Instructions: With: Address: When: Juvenal THORPE [facility], [address] [place] [address] [place] [address] Business (1) In 3 days 08/30/2023 With: Address: When: [place] [phone] Business (1) In 3 days In the event that this physician does not participate in your insurance network, please consult with your insurance company to find a nearby participating provider. Patient Education Materials: and Urinary Tract Infection; Urinary Tract Infection, Adult, Glbn-mo-Yjcv; Subchorionic Hematoma A MESSAGE TO ALL PATIENTS REGARDING OPIOIDS PRESCRIPTION OPIOIDS: WHAT YOU NEED TO KNOW Prescription opioids can be used to help relieve fxnzdimk-lq-yegbbg pain and are often prescribed following a [...] toilet, follo (more content not included)... Normal [facility] HEMATOLOGYOrdered By: SYSTEM SYSTEM on 08-27-2023 [...] Rflxon 08-27-19 Color (U) Light-Yellow Normal Yellow [facility] Comment on above: Result Comment: Micr oscopic readings are only performed on those samples that meet specific criteria set forth by [facility]. Performed By: #### 4 [id number], [id number] ####[facility] [address] [place] [address] Glucose (U) [Mass/Vol] Negative Normal Negative Fi [facility] Comment on above: Performed By: #### 4 [id number], [id number] ####[facility] [address] [place] [address] Ketones Ql (U) Negative Normal Negative [facility] Comment on above: Performed By: #### 4 [id number], 7391766 ####[facility] [address] [place] [address] UA Blood 3+ Abnormal Negative [facility] Comment on above: Performed By: #### 4 [id number], [id number] ####[facility] [address] [facility] [place] [address] UA Bacteria 1+ [id number] Abnormal Trace [facility] Comment on above: Performed By: #### 4 [id number], 5505584 ####[facility] [address] [facility] [place] [address] UA Clarity Turbid Abnormal Clear [facility] Comment on above: Performed By: #### 4 [id number], [id number] ####[facility] [address] [facility] [place] [address] UA Hyal Cast 0-3 Normal 0-3 [facility] Comment on above: Performed By: #### 4 [id number], 7751221 ####[facility] [address] [place] [address] UA Leuk Est 250 Stefania/uL Abnormal Negative [facility] Comment on above: Performed By: #### 4 [id number], [id number] ####[facility] [address] [place] [address] UA Mucous Trace Normal Negative [facility] Comment on above: Performed By: #### 4 [id number], 6435931 ####[facility] [address] [place] [address] UA Nitrite Negative Normal Negative [facility] Comment on above: Performed By: #### 4 [id number], 7244435 ####[facility] [address] [place] [address] UA pH 5.5 Invalid Interpretation Code 5.0-9.0 [facility] Comment on above: Performed By: #### 4 [id number], [id number] ####[address] [address] UA Protein 1+ mg/dL Abnormal Negative [facility] Comment on above: Performed By: #### 4 [id number], 8760759 ####[facility] [address] [place] [address] UA RBC 4-20 Abnormal 0-3 [facility] Comment on above: Performed By: #### 4 [id number], 2750989 ####[facility] [address] [place] [address] UA Spec Grav 1.018 Invalid Interpretation Code 1.005-1.030 [facility] Comment on above: Performed By: #### 4 [id number], 4461037 ####[facility] [address] [place] [address] UA Squam Epithelial 3-4 Abnormal 0-2 [facility] Comment on above: Performed By: #### 4 [id number], 0875036 ####[facility] [address] [facility] [place] [address] UA Urobilinogen Negative Normal Negative [facility] Comment on above: Performed By: #### 4 [id number], 9585657 ####[facility] [address] [place] [address] UA WBC 6-15 Abnormal 0-5 [facility] Comment on above: Performed By: #### 4 [id number], 6891346 ####[facility] [address] [place] [address] Urobilinogen (U) [Mass/Vol] Negative Normal Negative [facility] Comment on above: Performed By: #### 4 [id number], 0033180 ####[facility] [address] [place] [address] UA Spec Desc Clean Catch Normal [facility] Comment on above: Performed By: #### 4 [id number], 5129370 ####[facility] [address] [place] [address] URINALYSISOrdered By: SYSTEM SYSTEM on 08-27-2023 Color (U) Light-Yellow 1 (08/27/23 9:55 AM) Normal Yellow [facility] UA Auto SS Comment on above: Interpretive Data: M icroscopic readings are only performed on those samples that meet specific criteria set forth by [facility]. Glucose (U) [Mass/Vol] Negative Normal [...] Reason for Exam: Other (please specify) Report [facility] [phone] IMPRESSION: Single live intrauterine with estimated sonographic [...] rate is measured at 120 bpm. [place]-rump length 4.77 mm. Estimated sonographic gestational age [...] Transvaginal Ultrasound Performed FHR (bpm) 120 Normal [facility] US Transvaginalon 08-27-2023 US Transvaginal Exam Date/Time: 08/27/2023 11:55 EDT Reason for Exam: Other (please specify) Report [facility] [phone] Please see ultrasound pelvis, for report of transvaginal examination. Ordering Provider: Hudson Riley FINAL REPORT Dictated: 08/27/2023 12:33 pm Zach Deng MD Signed (Electronic Signature): 08/27/2023 12:33 pm Signed by: Zach Deng MD Transcribed by: KIRK Technologist: SHELLEY Normal [facility] eGFRon 08-27-2023 eGFR 131 mL/min/1.73 m2 Normal >=59 [facility] Comment on above: Order Comment: Order added by Discern Expert. Performed By: #### 1 [id number], [id number], [id number] ####[facility] [address] [place] [address] [facility] Quanton 08-19-2023 HCG[place] subunit Qn 4261 m[IU]/mL High 1-3 Fi [facility] Comment on above: Result Comment: 'F N ON < 1 - 3' ' 0.2 - 1 WEEK = 5 TO 50' ' 1 - 2 WEEKS = 50 - 500' ' 2 - 3 WEEKS = 100 - 5000' ' 3 - 4 WEEKS = 500 - 76857' ' 4 - 5 WEEKS = 1000 - 26063' ' 5 - 6 WEEKS = 11596 - 716465' ' 6 - 8 WEEKS = 416[address] - 643919' ' 8 - 12 WEEKS = [address] - 929378' Performed By: #### 2 [id number] ####[facility] [address] [place] [address] Physician Orderon 08-19-2023 Physician Order [id number] Normal [facility] CHEMISTRYOrdered By: Juancho benitez on 01-03-2023 [...] 23 mmol/L Normal 21 - 31 mmol/L FT [...] L FT Remisol Urea nitrogen/Creatinine [Mass ratio] 12 mg/mg Normal 10 - 20 [facility] Remisol CHEMISTRYOrdered By: SYSTEM SYSTEM on 01-03-2023 GFR/1.73 sq M.predicted among non-blacks MDRD (S/P/Bld) [Vol rate/Area] 108 mL/min/1.73 m2 Normal >=59mL/min/1 .73 m2 [facility] Chem S HCG.beta subunit Qn 1572 m[IU]/mL High 1 - 3 mIU/mL [facility] Remisol HEMATOLOGYOrdered By: SYSTEM SYSTEM on 01-03-2023 [...] No growth to date Continuing incubation [facility] MICRO OTHER TESTSOrdered By: Juancho [...] Interpretation Code Negative [facility] UA Auto SS Lester.plasma/Lester.R BC (Bld) [Mass ratio] 0-3 /HPF Normal [...] PM) Invalid Interpretation Code 1.005 - 1.030 [facility] UA Auto SS UA Spec Desc Clean Catch (01/03/23 10:52 PM) Normal [facility] UA Auto SS Urobilinogen Qn (U) 1.4434585 {Georgina'U}/dL Normal 0.0 - 1.0 EU/dL [facility] UA Auto SS WBC Auto Ql (U) 1+ *ABN* (01/03/23 10:52 PM) Invalid Interpretation Code Negative [facility] UA Auto SS WBC LM.HPF (Urine sed) [#/Area] 6-15 /HPF Invalid Interpretation Code 0-5/HPF [facility] UA Auto SS Alanine aminotransferase [En zymatic activity/volume] in Serum or PlasmaOrdered By: Jose Silverman on 10-02-2022 ALT [Catalytic activity/Vol] 13 U/L Normal 7-52 [facility] Comment on above: Performed By: #### C BC, CMP, ETOH #### [facility] [address] [place] [address] [place] Albumin [Mass/volume] in Ser um or Plasma by Bromocresol green (BCG) dye binding methoOrdered By: Jose Silverman on 10-02-2022 Albumin BCG dye [Mass/Vol] 5.0 g/dL 3.5-5.7 [facility] Alkaline phosphatase [Enzyma tic activity/volume] in Serum or PlasmaOrdered By: Jose Silverman on 10-02-2022 ALP [Catalytic activity/Vol] 69 U/L Normal 34-104 [facility] Comment on above: Performed By: #### C BC, CMP, ETOH #### [facility] [address] [place] [address] [place] Amphetamine Screen Ql (U)Ord ered By: Jose Silverman on 10-02-2022 Amphetamines Ql (U) Negative Negative [facility] Aspartate aminotransferase [ Enzymatic activity/volume] in Serum or PlasmaOrdered By: Jose Silverman on 10-02-2022 AST [Catalytic activity/Vol] 21 U/L Normal 13-39 [facility] Comment on above: Performed By: #### C BC, CMP, ETOH #### [facility] [address] [place] [address] [place] Automated basophil %Ordered By: Jose Silverman on 10-02-2022 Basophils/100 WBC (Bld) 0.5 % Normal . F [facility] Comment on above: Performed By: #### C BC, CMP, ETOH #### [address] Automated basophil countOrde red By: Jose Silverman on 10-02-2022 Basophils (Bld) [#/Vol] 0.1 10*3/uL Normal 0.0-0.2 [facility] Comment on above: Result Comment: PERF ORMED BY: [place] [address] PATHOLOGIST [employer] ASHELY CAREY M.D. Performed By: #### C BC, CMP, ETOH #### [address] Automated blood monocyte cou ntOrdered By: Jose Silverman on 10-02-2022 Monocytes (Bld) [#/Vol] 0.7 10*3/uL Normal 0.0-0.8 [facility] Comment on above: Performed By: #### C BC, CMP, ETOH #### [address] Automated eosinophil %Ordere d By: Jose Silverman on 10-02-2022 Eosinophils/100 WBC (Bld) 2.0 % Normal . [facility] Comment on above: Performed By: #### C BC, CMP, ETOH #### [address] Automated eosinophil countOr dered By: Jose Silverman on 10-02-2022 Eosinophils (Bld) [#/Vol] 0.3 10*3/uL Normal 0.0-0.45 [facility] Comment on above: Performed By: #### C BC, CMP, ETOH #### [address] Automated erythrocytes count in urine sediment (number/area)Ordered By: Jose Silverman on 10-02-2022 RBC Auto (Urine sed) [#/Area] 0-1 [HPF] 0-4 [facility] Automated leukocytes count i n urine sediment (number/area)Ordered By: Jose Silverman on 10-02-2022 WBC Auto (Urine sed) [#/Area] 10-19 [HPF] 0-4 [facility] Automated monocyte %Ordered By: Jose Silverman on 10-02-2022 Monocytes/100 WBC (Bld) 5.7 % Normal . F [facility] Comment on above: Performed By: #### C BC, CMP, ETOH #### [facility] [address] Automated neutrophil %Ordere d By: Jose Sivlerman on 10-02-2022 Neutrophils/100 WBC (Bld) 68.7 % Normal . [facility] Comment on above: Performed By: #### C BC, CMP, ETOH #### [facility] [address] Barbiturates [Presence] in U rine by Screen methodOrdered By: Jose Silverman on 10-02-2022 Barbiturates Screen Ql (U) Negative Negative [facility] Benzodiazepines Screen Ql (U )Ordered By: Jose Silverman on 10-02-2022 Benzodiazepines Ql (U) Negative Negative [facility] Benzoylecgonine [Presence] i n Urine by Screen methodOrdered By: Jose Silverman on 10-02-2022 Benzoylecgonine Screen Ql (U) Negative Negative [facility] Bilirubin Test strip Ql (U)O rdered By: Jose Silverman on 10-02-2022 Bilirubin Ql (U) Negative Negative [facility] Bilirubin.total [Mass/volume ] in Serum or PlasmaOrdered By: Jose Silverman on 10-02-2022 Bilirubin [Mass/Vol] 0.3 mg/dL Normal 0.3-1.0 [facility] Comment on above: Performed By: #### C BC, CMP, ETOH #### [facility] [address] Calcium [Mass/volume] in Ser um or PlasmaOrdered By: Jose Silverman on 10-02-2022 Calcium [Mass/Vol] 9.6 mg/dL Normal 8.6-10.3 [facility] Comment on above: Performed By: #### C BC, CMP, ETOH #### [facility] [address] [place] [address] [place] Cannabinoids [Presence] in U rine by Screen methodOrdered By: Jose Silverman on 10-02-2022 Cannabinoids Screen Ql (U) Negative Negative [facility] Comment on above: These are unconfirme d results and should not be used for legal purposes. Drug Cut-Off Concentration: AMPH 1000 ng/mL MIAH 200 ng/mL AYAN 200 ng/mL COCM 300 ng/mL OP 300 ng/mL PCP 25 ng/mL THC 20 ng/mL Carbon dioxide, total [Moles /volume] in Serum or PlasmaOrdered By: Jose Silverman on 10-02-2022 CO2 [Moles/Vol] 27.2 mmol/L Normal 21.0-31.0 [facility] Comment on above: Performed By: #### C BC, CMP, ETOH #### [place] [address] [place] Chloride [Moles/volume] in S brian or PlasmaOrdered By: Jose Silverman on 10-02-2022 Chloride [Moles/Vol] 101 mmol/L Normal 98-107 [facility] Comment on above: Performed By: #### C BC, CMP, ETOH #### [place] [address] [place] Color Auto (U)Ordered By: Loli Silverman on 10-02-2022 Color (U) Yellow Yellow [facility] Complete Blood Count Auto Di ffon 10-02-2022 Mean Corpuscular HGB Conc 32.0 g/dL Normal 32.0-35.0 [facility] Comment on above: Performed By: #### C BC, CMP, ETOH #### [facility] [address] [place] [address] [place] Monocytes/100 WBC (Bld) 17.72 % Normal 0.00-20.00 [facility] Comment on above: Performed By: #### C BC, CMP, ETOH #### [facility] [address] [place] [address] [place] NRBC% 0.0 /100{WBC} Normal 0-0.5 [facility] Comment on above: Performed By: #### C BC, CMP, ETOH #### [facility] [address] [place] [address] [place] Comprehensive Metabolic Pane tung 10-02-2022 Albumin [Mass/Vol] 5.0 g/dL Normal 3.5-5.7 [facility] Comment on above: Performed By: #### C BC, CMP, ETOH #### [facility] [address] [place] [address] [place] Creatinine Clr Calc Pharmacy 107.48 Normal [facility] Comment on above: Result Comment: PERF ORMED BY: [place] [address] PATHOLOGIST [employer] ASHELY CAREY M.D. Performed By: #### C BC, CMP, ETOH #### [address] GFR/1.73 sq M.predicted MDRD (S/P/Bld) [Vol rate/Area] mL/min/{1.73_m2} Normal [facility] Comment on above: Performed By: #### C BC, CMP, ETOH #### [place] [address] [place] Creatinine [Mass/volume] in Serum or PlasmaOrdered By: Jose Silverman on 10-02-2022 Creatinine [Mass/Vol] 0.89 mg/dL Normal 0.60-1.20 [facility] Comment on above: Performed By: #### C BC, CMP, ETOH #### [place] [address] [place] Dipstick and Microscopicon 0 10-02-2022 Appearance (U) Clear Normal Clear [facility] Comment on above: Order Comment: Name Collection Type:: Clean-Voided Midstream Performed By: #### U RDS, ADDONUAPLUS, CUU, UHCG #### [place] [address] [place] Bacteria,Urine 2+ High None Seen [facility] Comment on above: Order Comment: Name Collection Type:: Clean-Voided Midstream Performed By: #### U RDS, ADDONUAPLUS, CUU, UHCG #### [facility] [address] [place] [address] [place] Bilirubin,Urine Negative Normal Negative [facility] Comment on above: Order Comment: Name Collection Type:: Clean-Voided Midstream Performed By: #### U RDS, ADDONUAPLUS, CUU, UHCG #### [facility] [address] Color (U) Yellow Normal Yellow [facility] Comment on above: Order Comment: Name Collection Type:: Clean-Voided Midstream Performed By: #### U RDS, ADDONUAPLUS, CUU, UHCG #### [facility] [address] [place] [address] Glucose Ql (U) Normal Normal Normal [facility] Comment on above: Order Comment: Name Collection Type:: Clean-Voided Midstream Performed By: #### U RDS, ADDONUAPLUS, CUU, UHCG #### [facility] [address] [place] [address] [place] Hyaline Casts,Urine 0-8 Normal 0-8 [facility] Comment on above: Order Comment: Name Collection Type:: Clean-Voided Midstream Performed By: #### U RDS, ADDONUAPLUS, CUU, UHCG #### [facility] [address] [place] [address] Ketones Ql (U) Negative Normal Negative [facility] Comment on above: Order Comment: Name Collection Type:: Clean-Voided Midstream Performed By: #### U RDS, ADDONUAPLUS, CUU, UHCG #### [facility] [address] [place] [address] [place] Leukocyte esterase Test strip Ql (U) 3+ High Negative [facility] Comment on above: Order Comment: Name Collection Type:: Clean-Voided Midstream Performed By: #### U RDS, ADDONUAPLUS, CUU, UHCG #### [facility] [address] [place] [address] [place] Nitrite,Urine Negative Normal Negative [facility] Comment on above: Order Comment: Name Collection Type:: Clean-Voided Midstream Performed By: #### U RDS, ADDONUAPLUS, CUU, UHCG #### [address] Occult Blood,Urine Negative Normal Negative [facility] Comment on above: Order Comment: Name Collection Type:: Clean-Voided Midstream Performed By: #### U RDS, ADDONUAPLUS, CUU, UHCG #### [address] pH (U) 6.5 [pH] Normal 5.0-9.0 [facility] Comment on above: Order Comment: Name Collection Type:: Clean-Voided Midstream Performed By: #### U RDS, ADDONUAPLUS, CUU, UHCG #### [address] Protein,Urine Negative Normal Negative [facility] Comment on above: Order Comment: Name Collection Type:: Clean-Voided Midstream Performed By: #### U RDS, ADDONUAPLUS, CUU, UHCG #### [address] RBC LM.HPF (Urine sed) [#/Area] 0 /[HPF] Normal 0-4 [facility] Comment on above: Order Comment: Name Collection Type:: Clean-Voided Midstream Performed By: #### U RDS, ADDONUAPLUS, CUU, UHCG #### [address] Specificy [place],Urine 1.021 Normal 1.001-1.030 [facility] Comment on above: Order Comment: Name Collection Type:: Clean-Voided Midstream Performed By: #### U RDS, ADDONUAPLUS, CUU, UHCG #### [place] [address] [place] Squamous Epithelial Cell,Urine 10-19 High 0-2 [facility] Comment on above: Order Comment: Name Collection Type:: Clean-Voided Midstream Performed By: #### U RDS, ADDONUAPLUS, CUU, UHCG #### [address] [place] [address] [place] Urobilinogen,Urine Normal Normal Normal [facility] Comment on above: Order Comment: Name Collection Type:: Clean-Voided Midstream Performed By: #### U RDS, ADDONUAPLUS, CUU, UHCG #### [address] WBC,Urine 10-19 High 0-4 [facility] Comment on above: Order Comment: Name Collection Type:: Clean-Voided Midstream Performed By: #### U RDS, ADDONUAPLUS, CUU, UHCG #### [address] Drug Screen,Urineon 10-03-19 Amphetamine Screen,Urine Negative Normal Negative [facility] Comment on above: Performed By: #### U RDS, ADDONUAPLUS, CUU, UHCG #### [address] Barbiturate Screen,Urine Negative Normal Negative [facility] Comment on above: Performed By: #### U RDS, ADDONUAPLUS, CUU, UHCG #### [facility] [address] [place] [address] Benzodiazepines Screen,Urine Negative Normal Negative [facility] Comment on above: Performed By: #### U RDS, ADDONUAPLUS, CUU, UHCG #### [address] Cannabinoid Screen,Urine Negative Normal Negative [facility] Comment on above: Result Comment: Thes e are unconfirmed results and should not be used for legal purposes. Drug Cut-Off Concentration: AMPH 1000 ng/mL MIAH 200 ng/mL AYAN 200 ng/mL COCM 300 ng/mL OP 300 ng/mL PCP 25 ng/mL THC 20 ng/mL PERFORMED BY: [place] [address] PATHOLOGIST [employer] CAREY M.D. Performed By: #### U RDS, ADDONUAPLUS, CUU, UHCG #### [address] [address] [place] Cocaine Screen,Urine Negative Normal Negative [facility] Comment on above: Performed By: #### U RDS, ADDONUAPLUS, CUU, UHCG #### [facility] [address] Opiate Screen,Urine Negative Normal Negative [facility] Comment on above: Performed By: #### U RDS, ADDONUAPLUS, CUU, UHCG #### [facility] [address] Phencyclidine Screen,Urine Negative Normal Negative [facility] Comment on above: Performed By: #### U RDS, ADDONUAPLUS, CUU, UHCG #### [facility] [address] [place] [address] Erythrocyte distribution wid th [Ratio] by Automated countOrdered By: Jose Silverman on 10-02-2022 Erythrocyte distribution width (RBC) [Ratio] 15.8 % High 11.9-15.3 [facility] Comment on above: Performed By: #### C BC, CMP, ETOH #### [facility] [address] [place] [address] Erythrocytes [#/volume] in B lood by Automated countOrdered By: Jose Silverman on 10-02-2022 RBC (Bld) [#/Vol] 5.31 10*6/uL High 3.60-5.00 [facility] Comment on above: Performed By: #### C BC, CMP, ETOH #### [facility] [address] [place] [address] Ethanol [Mass/volume] in Ser um or PlasmaOrdered By: Jose Silverman on 10-02-2022 Ethanol [Mass/Vol] mg/dL Normal [facility] Comment on above: Performed By: #### C BC, CMP, ETOH #### [facility] [address] [place] [address] Ethanol [Mass/Vol] TNP [facility] Comment on above: Test not performed Ethyl Alcohol Profileon 09-08 Percent Ethanol Not performed Normal [facility] Comment on above: Result Comment: PERF ORMED BY: [place] [address] PATHOLOGIST [employer] CAREY M.D. Performed By: #### C BC, CMP, ETOH #### [address] Glucose [Mass/volume] in Ser um or PlasmaOrdered By: Jose Silverman on 10-02-2022 Glucose [Mass/Vol] 98 mg/dL Normal 70-100 [facility] Comment on above: ADA recommended refe rence rangeRandom Glucose Reference Range is dependent on time and content of last meal. Glucose of more than 200 mg/dL in a nonstressed, ambulatory subject supports the diagnosis of Diabetes Mellitus. Result Comment: [place] om Glucose Reference Range is dependent on time and content of last meal. Glucose of more than 200 mg/dL in a nonstressed, ambulatory subject supports the diagnosis of Diabetes Mellitus. ADA recommended reference range Performed By: #### C BC, CMP, ETOH #### [address] HCG ( test) IA.rapi d Ql (U)Ordered By: Jose Silverman on 10-02-2022 HCG ( test) Ql (U) Negative [facility] HCG,Urineon 10-02-2022 Beta HCG ( test) Ql (U) Negative Normal [facility] Comment on above: Order Comment: Name Collection Type:: Clean-Voided Midstream Result Comment: PERF ORMED BY: [place] [address] PATHOLOGIST [employer] CAREY M.D. Performed By: #### U RDS, ADDONUAPLUS, CUU, UHCG #### [place] [id number] [facility] Hematocrit [Volume Fraction] of Blood by Automated countOrdered By: Jose Silverman on 10-02-2022 Hematocrit (Bld) [Volume fraction] 41.7 % Normal 34.0-46.4 [facility] Comment on above: Performed By: #### C BC, CMP, ETOH #### [address] [place] [address] [place] Hemoglobin [Mass/volume] in BloodOrdered By: Jose Silverman on 10-02-2022 Hemoglobin (Bld) [Mass/Vol] 13.3 g/dL Normal 11.8-15.4 [facility] Comment on above: Performed By: #### C BC, CMP, ETOH #### [address] Ketones Auto test strip (U) [Mass/Vol]Ordered By: Jose Silverman on 10-02-2022 Ketones (U) [Mass/Vol] Negative Negative [facility] - UrinalysisOrder ed By: Jose Silverman on 10-02-2022 Hyaline casts LM Ql (Urine sed) 0-8 [LPF] 0-8 [facility] Leukocytes [#/volume] correc ruby for nucleated erythrocytes in Blood by Automated counOrdered By: Jose Silverman on 10-02-2022 WBC corrected for nucl RBC Auto (Bld) [#/Vol] 12.9 10*3/uL 3.8-11.6 [facility] Leukocytes [#/volume] in Blo od by Automated countOrdered By: Jose Silverman on 10-02-2022 WBC (Bld) [#/Vol] 12.9 10*3/uL High 3.8-11.6 [facility] Comment on above: Performed By: #### C BC, CMP, ETOH #### [address] Lymphocytes [#/volume] in Bl ood by Automated countOrdered By: Jose Silverman on 10-02-2022 Lymphocytes (Bld) [#/Vol] 3.0 10*3/uL Normal 1.00-4.8 [facility] Comment on above: Performed By: #### C BC, CMP, ETOH #### [place] [address] [place] Lymphocytes/100 leukocytes i n Blood by Automated countOrdered By: Jose Silverman on 10-02-2022 Lymphocytes/100 WBC (Bld) 23.1 % Normal . [facility] Comment on above: Performed By: #### C BC, CMP, ETOH #### [facility] [address] MCH [Entitic mass] by Automa ruby countOrdered By: oJse Silverman on 10-02-2022 MCH (RBC) [Entitic mass] 25.2 pg Normal 24.7-34.3 [facility] Comment on above: Performed By: #### C BC, CMP, ETOH #### [facility] [address] [place] [address] MCHC Auto (RBC) [Mass/Vol]Or dered By: Jose Silverman on 10-02-2022 MCHC (RBC) [Mass/Vol] 32.0 g/dL 32.0-35.0 [facility] MCV [Entitic volume] by Auto mated countOrdered By: Jose Silverman on 10-02-2022 MCV (RBC) [Entitic vol] 78.5 fL Low 80-[address] [facility] Comment on above: Performed By: #### C BC, CMP, ETOH #### [address] Monocyte distribution width [Entitic volume] in Blood by AutomatedOrdered By: Jose Silverman on 10-02-2022 Monocyte distribution width Auto (Bld) [Entitic vol] 17.72 % 0.00-20.00 [facility] Neutrophils [#/volume] in Bl ood by Automated countOrdered By: Jose Silverman on 10-02-2022 Neutrophils (Bld) [#/Vol] 8.9 10*3/uL High 1.8-7.7 [facility] Comment on above: Performed By: #### C BC, CMP, ETOH #### [address] Nitrite Test strip Ql (U)Ord ered By: Jose Silverman on 10-02-2022 Nitrite Ql (U) Negative Negative [facility] No Panel InformationOrdered By: Jose Silverman on 10-02-2022 Estimated GFR (CKD-EPI) > 60.0 mL/Min [facility] Creatinine Clearance (Chem 107.48 [facility] Nucleated erythrocytes [Pres ence] in Blood by Automated countOrdered By: Jose Silverman on 10-02-2022 Nucleated RBC Auto Ql (Bld) 0.0 /100{WBC} 0-0.5 [facility] Opiates [Presence] in Urine by Screen methodOrdered By: Jose Silverman on 10-02-2022 Opiates Screen Ql (U) Negative Negative [facility] Phencyclidine Screen Ql (U)O rdered By: Jose Silverman on 10-02-2022 Phencyclidine Ql (U) Negative Negative [facility] Platelet mean volume [Entiti c volume] in Blood by Automated countOrdered By: Jose Silverman on 10-02-2022 Platelet mean volume (Bld) [Entitic vol] 7.7 fL Normal 6.3-10.7 [facility] Comment on above: Performed By: #### C BC, CMP, ETOH #### [address] Platelets [#/volume] in Bloo d by Automated countOrdered By: Jose Silverman on 10-02-2022 Platelets (Bld) [#/Vol] 342 10*3/uL Normal 150-450 [facility] Comment on above: Performed By: #### C BC, CMP, ETOH #### [facility] [address] [place] [address] Potassium [Moles/volume] in Serum or PlasmaOrdered By: Jose Silverman on 10-02-2022 Potassium [Moles/Vol] 3.8 mmol/L Normal 3.5-5.1 [facility] Comment on above: Performed By: #### C BC, CMP, ETOH #### [address] Protein Auto test strip (U) [Mass/Vol]Ordered By: Jose Silverman on 10-02-2022 Protein (U) [Mass/Vol] Negative Negative [facility] Protein [Mass/volume] in Ser um or PlasmaOrdered By: Jose Silverman on 10-02-2022 Protein [Mass/Vol] 8.7 g/dL Normal 6.4-8.9 [facility] Comment on above: Performed By: #### C BC, CMP, ETOH #### [address] Serum globulin measurement b y calculation (mass/volume)Ordered By: Jose Silverman on 10-02-2022 Globulin (S) [Mass/Vol] 3.7 g/dL Normal F [facility] Comment on above: Performed By: #### C BC, CMP, ETOH #### [address] Serum or plasma albumin/glob ulin mass ratioOrdered By: Jose Silverman on 10-02-2022 Albumin/Globulin [Mass ratio] 1.4 {ratio} Normal [facility] Comment on above: Performed By: #### C BC, CMP, ETOH #### [address] Serum or plasma anion gap de terminationOrdered By: Jose Silverman on 10-02-2022 Anion gap [Moles/Vol] 12.6 mmol/L Normal 6.0-15.0 [facility] Comment on above: Performed By: #### C BC, CMP, ETOH #### [address] Sodium [Moles/volume] in Ser um or PlasmaOrdered By: Jose Silverman on 10-02-2022 Sodium [Moles/Vol] 137 mmol/L Normal 136-145 [facility] Comment on above: Performed By: #### C BC, CMP, ETOH #### [address] Specific gravity Auto test s trip (U) [Rel density]Ordered By: Jose Silverman on 10-02-2022 Specific gravity (U) [Rel density] 1.021 1.001-1.030 [facility] Squamous epithelial cells de tection in urine sediment by light microscopyOrdered By: Jose Silverman on 10-02-2022 Epithelial cells.squamous LM Ql (Urine sed) 10-19 [HPF] 0-2 [facility] Urea nitrogen [Mass/volume] in Serum or PlasmaOrdered By: Jose Silverman on 10-02-2022 Urea nitrogen [Mass/Vol] 18 mg/dL Normal 7-25 [facility] Comment on above: Performed By: #### C BC, CMP, ETOH #### [facility] [address] [place] [id number] [place] Urine Cultureon 10-02-2022 Bacteria identified Cx Nom (U) ORGANISM: Strep agalactiae - (group b) (O:STRAGA) [place] Count 50,000 PERFORMED BY: [place] [address] PATHOLOGIST [employer] CAREY M.D. Normal [facility] Comment on above: Performed By: #### U RDS, ADDONUAPLUS, CUU, UHCG #### [facility] [address] Urine bacteria detection by automated methodOrdered By: Jose Silverman on 10-02-2022 Bacteria Auto Ql (U) 2+ None Seen [facility] Urine clarity by refractomet ry automatedOrdered By: Jose Silverman on 10-02-2022 Clarity Refractometry automated (U) Clear Clear [facility] Urine glucose measurement by automated test strip (mass/volume)Ordered By: Jose Silverman on 10-02-2022 Glucose Auto test strip (U) [Mass/Vol] Normal mg/dL Normal [facility] Urine hemoglobin detection b y automated test stripOrdered By: Jsoe Silveramn on 10-02-2022 Hemoglobin Auto test strip Ql (U) Negative Negative [facility] Urine leukocyte esterase det ection by automated test stripOrdered By: Jose Silverman on 10-02-2022 Leukocyte esterase Auto test strip Ql (U) 3+ Negative [facility] Urobilinogen Auto test strip (U) [Mass/Vol]Ordered By: Jose Silverman on 10-02-2022 Urobilinogen (U) [Mass/Vol] Normal mg/dL Normal [facility] pH Auto test strip (U)Ordere d By: Jose Silverman on 10-02-2022 pH (U) 6.5 [pH] 5.0-9.0 [facility] Quick Strepon 09-25-2022 S. pyogenes Org specific cx Ql (Throat) Negative [facility] Other Quick Strep [facility] Other CHEMISTRYOrdered By: SYSTEM SYSTEM on 09-06-2022 Anion gap [Moles/Vol] 10 mmol/L Normal 6 - 16 mEq/L F [facility] Remisol Calcium [Mass/Vol] 9.2 mg/dL Normal 8.9 - 11. 1 mg/dL [facility] Chloride [Moles/Vol] 104 mmol/L Normal 101 - 1 11 mmol/L [facility] CO2 [Moles/Vol] 27 mmol/L Normal 21 - 31 mmol/L [facility] Creatinine [Mass/Vol] 0.7 mg/dL Normal 0.5 - 1.3 mg/dL [facility] GFR/1.73 sq M.predicted among blacks MDRD (S/P/Bld) [Vol rate/Area] mL/min/1.73 m2 Normal >=59mL/min/1 .73 m2 [facility] Chem S GFR/1.73 sq M.predicted among non-blacks MDRD (S/P/Bld) [Vol rate/Area] mL/min/1.73 m2 Normal >=59mL/min/1 .73 m2 [facility] Chem S Glucose [Mass/Vol] 82 mg/dL Normal [...] 8.8 E9/L Normal 4.0 - 11.0 E9/L [facility] HemeAutoSS SEROLOGYOrdered By: Janelle Burroughs on 09-06-2022 HCG.beta subunit (U) [Moles/Vol] Positive (09/06/22 11:19 AM) Normal [facility] Man Sero URINALYSISOrdered By: Marlo Burroughs on [...] (Urine sed) [#/Area] 0-2 /HPF Normal 0-2/HPF [facility] Aut o SS Glucose Test strip (U) [Mass/Vol] Negative (09/06/22 11:19 AM) Normal Negative [facility] UA Auto SS Hemoglobin Ql (U) 3+ *ABN* (09/06/22 11:19 AM) Invalid Interpretation Code Negative [facility] UA Auto SS Ketones (U) [Mass/Vol] Negative (09/06/22 11:19 AM) Normal Negative [facility] UA Auto SS Lester.plasma/Lester.R BC (Bld) [Mass ratio] >30 /HPF Invalid Interpretation Code 0-3/HPF [facility] Auto SS Mucus Ql (Urine sed) 1+ (09/06/22 11:19 AM) Normal [facility] UA Auto SS Nitrite Ql (U) Negative (09/06/22 11:19 AM) Normal Negative [facility] UA Auto SS pH (U) 7.0 *NA* (09/06/22 11:19 AM) Invalid Interpretation Code 5.0 - 9.0 [facility] Auto SS Protein (U) [Mass/Vol] Trace *ABN* (09/06/22 11:19 AM) Invalid Interpretation Code Negative [facility] UA Auto SS Specific gravity (U) [Rel density] 1.020 *NA* (09/06/22 11:19 AM) Invalid Interpretation Code 1.005 - 1.030 [facility]A Auto SS UA Spec Desc Clean Catch (09/06/22 11:19 AM) Normal [facility] UA Auto SS Urobilinogen Qn (U) 0.3253375 {Georgina'U}/dL Normal 0.0 - 1.0 EU/dL [facility] Auto SS WBC Auto Ql (U) Negative (09/06/22 11:19 AM) Normal Negative [facility] UA Auto SS WBC LM.HPF (Urine sed) [#/Area] 0-5 /HPF Normal 0-5/HPF [facility] Auto SS BLOOD BANKOrdered By: John Montague on 08-14-2022 ABO/Rh Interp Positive Invalid Interpretation Code [facility] BB Subsection CHEMISTRYOrdered By: SYSTEM SYSTEM on [...] rate/Area] mL/min/1.73 m2 Normal >=59mL/min/1 .73 m2 [facility] Chem S Globulin (S) [Mass/Vol] 3.2 g/dL [...] PM) Normal Negative [facility] UA Auto SS Lester.plasma/Lester.R BC (Bld) [Mass ratio] 0-3 /HPF Normal [...] [facility] UA Auto SS Urobilinogen Qn (U) 0.3220389 {Georgina'U}/dL Normal 0.0 - 1.0 EU/dL [facility] UA Auto SS WBC Auto Ql (U) Negative (08/14/22 7:29 PM) Normal Negative [facility] UA Auto SS WBC LM.HPF (Urine sed) [#/Area] 0-5 /HPF Normal 0-5/HPF [facility] UA Auto SS CHLAMYDIA/GONOCOCCUS ALFREDO (SW AB/URINE/PAPon 07-15-2022 Chlamydia trachomatis, ALFREDO Negative Normal Negative [facility] Comment on above: Performed By: #### C T/NGNA #### [facility] [address] [place] [address] Dr. Cyril Hendricks Neisseria gonorrhoeae, ALFREDO Negative Normal Negative [facility] Comment on above: Performed By: #### C T/NGNA #### [facility] [address] [place] [address] [address] Cyril Hendricks VAGINITIS/VAGINOSIS DNA PROB Maurice 07-13-2022 Krista species Negative Normal Negative [facility] Comment on above: Performed By: #### U MICRO, UACSIND #### [facility] [address] [place] [address] Dr. Cyril Hendricks Gardnerella vaginalis Positive Abnormal Negative [facility] Comment on above: Performed By: #### U MICRO, UACSIND #### [facility] [address] [place] [address] [address] Cyril Hendricks Trichomonas vaginalis Negative Normal Negative [facility] Comment on above: Performed By: #### U MICRO, UACSIND #### [facility] [address] [place] [address] Dr. Cyril Hendricks COVID/FLU RT-PCRon SARS-CoV-2 (COVID-19) RNA ALFREDO+probe Ql (Unsp spec) Negative [facility] Other COVID/FLU RT-PCR Negative [facility] Other Quick Strepon 06-24-2022 S. pyogenes Org specific cx Ql (Throat) Negative [facility] Other Quick Strep [facility] Other CBC AUTO DIFFon 01-08-2022 BASO # 0.1 103/ul Normal 0.0-0.1 [facility] Comment on above: Performed By: #### C BC #### [facility] [address] [place] [address] Dr. Cyril Hendricks Basophils/100 WBC (Bld) 0.4 % Normal 0.2-2.0 [facility] Comment on above: Performed By: #### C BC #### [facility] [address] [place] [address] Dr. Cyril Hendricks EO # 0.1 103/ul Normal 0.0-0.7 [facility] Comment on above: Performed By: #### C BC #### [facility] [address] [place] [address] Dr. Cyril Hendricks Eosinophils/100 WBC (Bld) 0.9 % Normal 0.9-7.0 [facility] Comment on above: Performed By: #### C BC #### [facility] [address] [place] [address] Dr. Cyril Hendricks Erythrocyte distribution width (RBC) [Ratio] 12.3 % Normal 11.0-15.0 [facility] Comment on above: Performed By: #### C BC #### [facility] [address] [place] [address] Dr. Cyril Hendricks Hematocrit (Bld) [Volume fraction] 30.0 % Critically low 36.0-48.0 [facility] Comment on above: Performed By: #### C BC #### [facility] [address] [place] [address] Dr. Cyril Hendricks Hemoglobin (Bld) [Mass/Vol] 10.2 g/dL Critically low 12.0-16.0 [facility] Comment on above: Performed By: #### C BC #### [facility] [address] [place] [address] Dr. Cyril Hendricks IG # 0.05 10e3/ul Critically high 0.00-0.03 [place] Comment on above: Performed By: #### C BC #### [facility] [address] [place] [address] Dr. Cyril Hendricks IG % 0.4 % Normal 0.0-0.5 [facility] Comment on above: Performed By: #### C BC #### [facility] [address] [place] [address] Dr. Cyril Hendricks LYMPH # 2.8 103/ul Normal 1.2-3.8 [facility] Comment on above: Performed By: #### C BC #### [facility] [address] [place] [address] Dr. Cyril Hendricks Lymphocytes/100 WBC (Bld) 19.7 % Critically low 20.5-60.0 [facility] Comment on above: Performed By: #### C BC #### [facility] [address] [place] [address] Dr. Cyril Hendricks MANUAL DIFF REQ NO Normal [facility] Comment on above: Performed By: #### C BC #### [facility] [address] [place] [address] Dr. Cyril Hendricks MCH (RBC) [Entitic mass] 30.6 pg Normal 26.7-34.0 [facility] Comment on above: Performed By: #### C BC #### [facility] [address] [place] [address] Dr. Cyril Hendricks MCHC (RBC) [Mass/Vol] 34.0 g/dL Normal 29.9-35.2 [facility] Comment on above: Performed By: #### C BC #### [facility] [address] [place] [address] Dr. Cyril Hendricks MCV (RBC) [Entitic vol] 90.1 fL Normal 81.0-99.0 [facility] Comment on above: Performed By: #### C BC #### [facility] [address] [place] [address] Dr. Cyril Hendricks MONO # 0.8 103/ul Normal 0.3-0.8 [facility] Comment on above: Performed By: #### C BC #### [facility] [address] [place] [address] Dr. Cyril Hendricks Monocytes/100 WBC (Bld) 5.9 % Normal 1.7-12.0 [facility] Comment on above: Performed By: #### C BC #### [facility] [address] [place] [address] Dr. Cyril Hendricks NEUT # 10.3 103/ul Critically high 1.4-6.5 [facility] Comment on above: Performed By: #### C BC #### [facility] [address] [place] [address] Dr. Cryil Hendricks Neutrophils/100 WBC (Bld) 72.7 % Normal 43.0-75.0 [facility] Comment on above: Performed By: #### C BC #### [facility] [address] [place] [address] Dr. Cyril Hendricks Platelet mean volume (Bld) [Entitic vol] 9.8 fL Normal 9.5-13.5 [facility] [place] Comment on above: Performed By: #### C BC #### [facility] [address] [place] [address] Dr. Cyril Hendricks PLT 207 103/ul Normal 150-450 [facility] Comment on above: Performed By: #### C BC #### [facility] [address] [place] [address] Dr. Cyril Hendricks RBC 3.33 106/ul Critically low 4.20-5.40 [facility] Comment on above: Performed By: #### C BC #### [facility] [address] [place] [address] Dr. Cyril Hendricks WBC 14.2 103/ul Critically high 4.0-11.0 [facility] Comment on above: Performed By: #### C BC #### [facility] [address] [place] [address] Dr. Cyril Hendricks CBC AUTO DIFFon 01-07-2022 BASO # 0.1 103/ul Normal 0.0-0.1 [facility] [place] Comment on above: Performed By: #### U MICRO UACSIND #### [facility] [address] [place] [address] Dr. Cyril Hendricks Basophils/100 WBC (Bld) 0.5 % Normal 0.2-2.0 [facility] Comment on above: Performed By: #### U MICRO UACSIND #### [facility] [address] [address] [address] Cyril Hendricks EO # 0.1 103/ul Normal 0.0-0.7 [facility] [place] Comment on above: Performed By: #### U MICRO, UACSIND #### [facility] [address] [address] [address] Cyril Hendricks Eosinophils/100 WBC (Bld) 0.9 % Normal 0.9-7.0 [facility] Comment on above: Performed By: #### U MICRO, UACSIND #### [facility] [address] [place] [address] Dr. Cyril Hendricks Erythrocyte distribution width (RBC) [Ratio] 12.4 % Normal 11.0-15.0 [facility] Comment on above: Performed By: #### U MICRO, UACSIND #### [facility] [address] [place] [address] Dr. Cyril Hendricks Hematocrit (Bld) [Volume fraction] 34.3 % Critically low 36.0-48.0 [facility] Comment on above: Performed By: #### U MICRO, UACSIND #### [facility] [address] [address] [address] Cyril Hendricks Hemoglobin (Bld) [Mass/Vol] 11.6 g/dL Critically low 12.0-16.0 [facility] Comment on above: Performed By: #### U MICRO, UACSIND #### [facility] [address] [place] [address] Dr. Cyril Hendricks IG # 0.06 10e3/ul Critically high 0.00-0.03 [place] Comment on above: Performed By: #### U MICRO, UACSIND #### [facility] [address] [place] [address] Dr. Cyril Hendricks IG % 0.4 % Normal 0.0-0.5 [facility] [place] Comment on above: Performed By: #### U MICRO, UACSIND #### [facility] [address] [place] [address] Dr. Cyril Hendricks LYMPH # 3.1 103/ul Normal 1.2-3.8 [facility] Comment on above: Performed By: #### U MICRO, UACSIND #### [facility] [address] [place] [address] Dr. Cyril Hendricks Lymphocytes/100 WBC (Bld) 20.4 % Critically low 20.5-60.0 [facility] Comment on above: Performed By: #### U MICRO, UACSIND #### [facility] [address] [place] [address] Dr. Cyril Hendricks MANUAL DIFF REQ NO Normal [facility] Comment on above: Performed By: #### U MICRO, UACSIND #### [facility] [address] [place] [address] Dr. Cyril Hendricks MCH (RBC) [Entitic mass] 30.6 pg Normal 26.7-34.0 [facility] Comment on above: Performed By: #### U MICRO, UACSIND #### [facility] [address] [place] [address] Dr. Cyril Hendricks MCHC (RBC) [Mass/Vol] 33.8 g/dL Normal 29.9-35.2 [facility] Comment on above: Performed By: #### U MICRO, UACSIND #### [facility] [address] [place] [address] Dr. Cyril Hendricks MCV (RBC) [Entitic vol] 90.5 fL Normal 81.0-99.0 [facility] Comment on above: Performed By: #### U MICRO, UACSIND #### [facility] [address] [place] [address] Dr. Cyril Hendricks MONO # 0.9 103/ul Critically high 0.3-0.8 [facility] Comment on above: Performed By: #### U MICRO, UACSIND #### [facility] [address] [place] [address] Dr. Cyril Hendricks Monocytes/100 WBC (Bld) 6.2 % Normal 1.7-12.0 [facility] Comment on above: Performed By: #### U MICRO, UACSIND #### [facility] [address] [address] [address] Cyril Hendricks NEUT # 10.9 103/ul Critically high 1.4-6.5 [facility] Comment on above: Performed By: #### U MICRO, UACSIND #### [facility] [address] [address] [address] Cyril Hendricks Neutrophils/100 WBC (Bld) 71.6 % Normal 43.0-75.0 [facility] Comment on above: Performed By: #### U MICRO, UACSIND #### [facility] [address] [address] [address] Cyril Hendricks Platelet mean volume (Bld) [Entitic vol] 11.1 fL Normal 9.5-13.5 [facility] Comment on above: Performed By: #### U MICRO, UACSIND #### [facility] [address] [place] [address] Dr. Cyril Hendricks PLT 240 103/ul Normal 150-450 [facility] Comment on above: Performed By: #### U MICRO, UACSIND #### [facility] [address] [address] [address] Cyril Hendricks RBC 3.79 106/ul Critically low 4.20-5.40 [facility] Comment on above: Performed By: #### U MICRO, UACSIND #### [facility] [address] [place] [address] Dr. Cyril Hendricks WBC 15.3 103/ul Critically high 4.0-11.0 [facility] Comment on above: Performed By: #### U MICRO, UACSIND #### [facility] [address] [place] [address] Dr. Cyril Hendricks [facility]on SARS-CoV-2 (COVID-19) RNA ALFREDO+probe Ql (Unsp spec) Not detected Normal NOT DETECTED [facility] Comment on above: Result Comment: When [...] for this test is supported by the [place] of Health and Human Service's declaration that [...] used). Performed By: #### H CVPCRR #### [facility] [address] [place] [address] Dr. Cyril Hendricks DRUG SCREEN RAPID (URINE)on 01-07-2022 AMP Negative Normal NEGATIVE [facility] Comment on above: Performed By: #### U MICRO, UACSIND #### [facility] [address] [place] [address] Dr. Cyril Hendricks BAR Negative Normal NEGATIVE [facility] Comment on above: Performed By: #### U MICRO, UACSIND #### [facility] [address] [place] [address] Dr. Cyril Hendricks BUP Negative Normal NEGATIVE [facility] Comment on above: Performed By: #### U MICRO, UACSIND #### [facility] [address] [place] [address] Dr. Cyril Hendricks BZO Negative Normal NEGATIVE [facility] Comment on above: Performed By: #### U MICRO, UACSIND #### [facility] [address] [place] [address] Dr. Cyril Hendricks DARIN Negative Normal NEGATIVE [facility] Comment on above: Performed By: #### U MICRO, UACSIND #### [facility] [address] [place] [address] Dr. Cyril Hendricks CUT-OFFS SEE BELOW Normal [facility] Comment on above: Result Comment: AMP (Amphetamine): [...] Performed By: #### U MICRO, UACSIND #### [facility] [address] [place] [address] Dr. Cyril Hendricks DRUG CUT HEADER DRUG CLASS TEST SYSTEM CUT-OFF CONCENTRATIONS ARE FOLLOWS: Normal [facility] Comment on above: Performed By: #### U MICRO, UACSIND #### [facility] [address] [place] [address] Dr. Cyril Hendricks mAMP Negative Normal NEGATIVE [facility] Comment on above: Performed By: #### U MICRO, UACSIND #### [facility] [address] [place] [address] Dr. Cyril Hendricks MTD Negative Normal NEGATIVE [facility] Comment on above: Performed By: #### U MICRO, UACSIND #### [facility] [address] [place] [address] Dr. Cyril Hendricks OPI Negative Normal NEGATIVE [facility] Comment on above: Performed By: #### U MICRO, UACSIND #### [facility] [address] [place] [address] Dr. Cyril Hendricks OXY Negative Normal NEGATIVE [facility] Comment on above: Performed By: #### U MICRO, UACSIND #### [facility] [address] [place] [address] Dr. Cyril Hendricks PCP Negative Normal NEGATIVE [facility] Comment on above: Performed By: #### U MICRO, UACSIND #### [facility] [address] [place] [address] Dr. Cyril Hendricks PPX Negative Normal NEGATIVE [facility] Comment on above: Performed By: #### U MICRO, UACSIND #### [facility] [address] [place] [address] Dr. Cyril Hendricks TCA Negative Normal NEGATIVE [facility] Comment on above: Performed By: #### U MICRO, UACSIND #### [facility] [address] [place] [address] Dr. Cyril Hendricks THC Negative Normal NEGATIVE [facility] Comment on above: Performed By: #### U MICRO, UACSIND #### [facility] [address] [place] [address] Dr. Cyril Hendricks TYPE AND SCREENon 01-07-2022 TYPE AND SCREEN Negative Normal [facility] Comment on above: Performed By: #### H CVPCRR #### [facility] [address] [place] [address] Dr. Cyril Hendricks CULTURE URINEon 12-29-2021 CULTURE URINE Culture Observations: NO GROWTH. Normal [facility] Comment on above: Performed By: #### U RCX #### [facility] [address] [place] [address] Dr. 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 Cyril Hendricks Clarity (U) SL CLOUDY Abnormal CLEAR [facility] Comment on above: Performed By: #### U MICRO, UACSIND #### [facility] [address] [place] [address] Dr. Cyril Hendricks Color (U) LT. YELLOW Normal YELLOW [facility] Comment on above: Performed By: #### U MICRO, UACSIND #### [facility] [address] [place] [address] Dr. Cyril Hendricks Glucose Ql (U) Negative Normal NEGATIVE [facility] Comment on above: Performed By: #### U MICRO, UACSIND #### [facility] [address] [place] [address] Dr. Cyril Hendricks Hemoglobin Ql (U) Negative Normal NEGATIVE [facility] Comment on above: Performed By: #### U MICRO, UACSIND #### [facility] [address] [address] [address] Cyril Hendricks Ketones Ql (U) Negative Normal NEGATIVE [facility] Comment on above: Performed By: #### U MICRO, UACSIND #### [facility] [address] [address] [address] Cyril Hendricks LEUKOCYTES LARGE Abnormal NEGATIVE [facility] Comment on above: Performed By: #### U MICRO, UACSIND #### [facility] [address] [address] [address] yCril Hendricks Nitrite Ql (U) Negative Normal NEGATIVE [facility] Comment on above: Performed By: #### U MICRO, UACSIND #### [facility] [address] [place] [address] Dr. Cyril Hendricks pH (U) 6.5 [pH] Normal 5-9 [facility] Comment on above: Performed By: #### U MICRO, UACSIND #### [facility] [address] [address] [address] Cyril Hendricks SPEC GRAVITY 1.010 Normal 1.005-<=1.02 5 [facility] Comment on above: Performed By: #### U MICRO, UACSIND #### [facility] [address] [address] [address] Cyril Hendricks UA PROTEIN Negative Normal NEGATIVE/ TRACE [facility] Comment on above: Performed By: #### U MICRO, UACSIND #### [facility] [address] [address] [address] Cyril Hendricks UR MICRO IND INDICATED Normal [facility] Comment on above: Performed By: #### U MICRO, UACSIND #### [facility] [address] [address] [address] Cyril Hendricks Urobilinogen Qn (U) 0.2 {Georgina'U}/dL Normal 0.2 - 1. 0 [facility] Comment on above: Performed By: #### U MICRO, UACSIND #### [facility] [address] [address] [address] Cyril Hendricks URINE MICROSCOPIC ONLYon BACTERIA SMALL Abnormal NONE SEEN [facility] Comment on above: Performed By: #### U MICRO, UACSIND #### [facility] [address] [place] [address] Dr. Cyril Hendricks Bacteria identified Cx Nom (U) INDICATED Normal [facility] Comment on above: Performed By: #### U MICRO, UACSIND #### [facility] [address] [place] [address] Dr. Cyril Hendricks CAST NONE SEEN Normal NONE SEEN [facility] Comment on above: Performed By: #### U MICRO, UACSIND #### [facility] [address] [place] [address] Dr. Cyril Hendricks Crystals LM Nom (Urine sed) NONE SEEN Normal NONE SEEN [facility] Comment on above: Performed By: #### U MICRO, UACSIND #### [facility] [address] [place] [address] Dr. Cyril Hendricks Epithelial cells LM Ql (Urine sed) MANY Abnormal NONE SEEN /RARE [facility] Comment on above: Performed By: #### U MICRO, UACSIND #### [facility] [address] [place] [address] Dr. Cyril Hendricks MUCOUS NONE SEEN Normal NONE SEEN [facility] Comment on above: Performed By: #### U MICRO, UACSIND #### [facility] [address] [place] [address] Dr. Cyril Hendricks RBC 0-2 Normal 0-2 [facility] Comment on above: Performed By: #### U MICRO, UACSIND #### [facility] [address] [address] [address] Cyril Hendricks WBC 10-20 Abnormal NONE SEEN [facility] Comment on above: Performed By: #### U MICRO, UACSIND #### [facility] [address] [place] [address] Dr. Cyril Hendricks GROUP B STREP CULTUREon 12-07 S. agalactiae Ag Ql (Unsp spec) Culture Observations: NEGATIVE FOR GROUP B STREPTOCOCCUS. Normal [facility] Comment on above: Performed By: #### G BSCX #### [facility] [address] [address] [address] Cyril Hendricks SSAon 12-13-2021 SSA <0.3 Normal <7.0 [facility] Comment on above: Result Comment: Reference Range: <7.0 Negative 7.0-10.0 Equivocal >10.0 Positive Performed By: #### S SARO, TSH, FT4, SSBLA #### [facility] [address] [place] [id number] Seasoning Mixer: Homer Hoffman MD SSBon 12-13-2021 SSB <0.3 Normal <7.0 [facility] Comment on above: Result Comment: Reference Range: <7.0 Negative 7.0-10.0 Equivocal >10.0 Positive Performed By: #### S SARO, TSH, FT4, SSBLA #### [facility] [address] [place] [address] [id number] Seasoning Mixer: Homer Hoffman MD No Panel Informationon 12-12 [facility] T4, Freeon 12-12-2021 Thyroxine, Free 0.98 ng/dL 0.93 - 1.70 ng/dL [facility] TSHon 12-12-2021 TSH Qn 4.35 m[IU]/L [facility] Thyroid Stim. Horm.on 2021 Thyroid Stim. Horm. 4.35 uIU/mL Normal 0.30-5.00 [facility] Comment on above: Performed By: #### S SARO, TSH, FT4, SSBLA #### [facility] [address] [place] [id number] Seasoning Mixer: Homer Hoffman MD Thyroxine, Freeon 12-12-2021 Thyroxine, Free 0.98 ng/dL Normal 0.93-1.70 [facility] Comment on above: Performed By: #### S SARO, TSH, FT4, SSBLA #### [facility] [address] [place] [address] Seasoning Mixer: Homer Hoffman MD US PREG BIOPHY W [...] by: SOFIA KABA Date: 2021-11-27 13:55 Normal [facility] COVID + FLU Quick Testingon 11-13-2021 SARS-CoV-2 (COVID-19) RNA ALFREDO+probe Ql (Unsp spec) Negative [facility] Other COVID + FLU Quick Testing Negative [facility] Other GLUCOSE - 1HRon 10-23-2021 Glucose [Mass/Vol] 83 mg/dL Normal 74-106 [facility] Comment on above: Performed By: #### G LU1HR #### [facility] [address] [place] [address] Dr. Cyril Hendricks CHLAMYDIA/GONOCOCCUS ALFREDO (SW AB/URINE/PAPon 10-05-2021 Chlamydia trachomatis, ALFREDO Negative Normal Negative [facility] Comment on above: Performed By: #### C T/NGNA #### [facility] [address] [address] [address] Cyril Hendricks Neisseria gonorrhoeae, ALFREDO Negative Normal Negative [facility] Comment on above: Performed By: #### C T/NGNA #### [facility] [address] [place] [address] Dr. Cyril Hendricks VAGINITIS/VAGINOSIS DNA PROB Maurice 10-04-2021 Krista species Positive Abnormal Negative [facility] Comment on above: Performed By: #### H CVPCRR #### [facility] [address] [address] [address] Cyril Hendricks Gardnerella vaginalis Negative Normal Negative [facility] Comment on above: Performed By: #### H CVPCRR #### [facility] [address] [address] [address] Cyril Hendricks Trichomonas vaginalis Negative Normal Negative [facility] Comment on above: Performed By: #### H CVPCRR #### [facility] [address] [address] [address] Cyril Hendricks HEP B SURFACE ANTIGEN SCREEN on 10-03-2021 HBsAg Screen Negative Normal Negative [facility] Comment on above: Performed By: #### H CVPCRR #### [facility] [address] [place] [address] Dr. Cyril Hendricks HEPATITIS C VIRUS AB W/ REFL EX QUANTon 10-03-2021 HCV AB <0.1 Normal 0.0-0.9 [facility] [place] Comment on above: Performed By: #### H CVPCRR #### [facility] [address] [place] [address] Dr. Cyril Hendricks Interpretation: Comment Normal [facility] Comment on above: Result Comment: Nega tive Not infected with HCV, unless recent infection is suspected or other evidence exists to indicate HCV infection. Performed By: #### H CVPCRR #### [facility] [address] [place] [address] Dr. Cyril Hendricks HIV 1 AND 2 WITH REFLEXon HIV Screen 4th Generation wRfx Non-Reactive Normal Non Reactive [facility] Comment on above: Result Comment: HIV Negative HIV-1/HIV-2 antibodies and HIV-1 p24 antigen were NOT detected. There is no laboratory evidence of HIV infection. Performed By: #### H IV12 #### [facility] [address] [place] [address] Dr. Cyril Hendricks RPR QUANTon 10-03-2021 Rapid Plasma Reagin, Quant Non-Reactive Normal NonRea<1:1 [facility] Comment on above: Result Comment: Plea se Note: This test does not meet current guidelines for screening and diagnosis of syphilis. This test is intended for following treatment response in patients being treated for syphilis infection. To screen for syphilis infection, a reflex cascade that includes both RPR and a treponema-specific assay should be utilized, such as Treponema pallidum (Syphilis) Screening [place] (773117) or Rapid Plasma Reagin (RPR) Test With Reflex to Quantitative RPR and Confirmatory Treponema pallidum Antibodies (251965). Performed By: #### U MICRO, UACSIND #### [facility] [address] [place] [address] Dr. Cyril Hendricks RUBELLA AB IGGon 10-03-2021 Rubella Antibodies, IgG <0.90 Critically low Immune > 0.99 [facility] Comment on above: Result Comment: Non- immune <0.90 Equivocal 0.90 - 0.99 Immune >0.99 Performed By: #### U MICRO, UACSIND #### [facility] [address] [place] [address] Dr. Cyril Hendricks CBC AUTO DIFFon 10-02-2021 BASO # 0.1 103/ul Normal 0.0-0.1 [facility] Comment on above: Performed By: #### U MICRO, UACSIND #### [facility] [address] [place] [address] Dr. Cyril Hendricks Basophils/100 WBC (Bld) 0.4 % Normal 0.2-2.0 [facility] Comment on above: Performed By: #### U MICRO, UACSIND #### [facility] [address] [place] [address] Dr. Cyril Hendricks EO # 0.1 103/ul Normal 0.0-0.7 [facility] Comment on above: Performed By: #### U MICRO, UACSIND #### [facility] [address] [place] [address] Dr. Cyril Hendricks Eosinophils/100 WBC (Bld) 1.1 % Normal 0.9-7.0 [facility] Comment on above: Performed By: #### U MICRO, UACSIND #### [facility] [address] [place] [address] Dr. Cyril Hendricks Erythrocyte distribution width (RBC) [Ratio] 13.5 % Normal 11.0-15.0 [facility] Comment on above: Performed By: #### U MICRO, UACSIND #### [facility] [address] [place] [address] Dr. Cyril Hendricks Hematocrit (Bld) [Volume fraction] 34.5 % Critically low 36.0-48.0 [facility] Comment on above: Performed By: #### U MICRO, UACSIND #### [facility] [address] [place] [address] Dr. Cyril Hendricks Hemoglobin (Bld) [Mass/Vol] 12.0 g/dL Normal 12.0-16.0 [facility] Comment on above: Performed By: #### U MICRO, UACSIND #### [facility] [address] [place] [address] Dr. Cyril Hendricks IG # 0.04 10e3/ul Critically high 0.00-0.03 [place] Comment on above: Performed By: #### U MICRO, UACSIND #### [facility] [address] [place] [address] Dr. Cyril Hendricks IG % 0.3 % Normal 0.0-0.5 [facility] Comment on above: Performed By: #### U MICRO, UACSIND #### [facility] [address] [place] [address] Dr. Cyril Hendricks LYMPH # 2.6 103/ul Normal 1.2-3.8 [facility] Comment on above: Performed By: #### U MICRO, UACSIND #### [facility] [address] [place] [address] Dr. Cyril Hendricks Lymphocytes/100 WBC (Bld) 21.3 % Normal 20.5-60.0 [facility] Comment on above: Performed By: #### U MICRO, UACSIND #### [facility] [facility] [address] [place] [address] Dr. Cyril Hendricks MANUAL DIFF REQ NO [facility] Comment on above: Performed By: #### U MICRO, UACSIND #### [facility] [address] [place] [address] Dr. Cyril Hendricks MCH (RBC) [Entitic mass] 32.5 pg Normal 26.7-34.0 [facility] [place] Comment on above: Performed By: #### U MICRO, UACSIND #### [facility] [address] [place] [address] Dr. Cyril Hendricks MCHC (RBC) [Mass/Vol] 34.8 g/dL Normal 29.9-35.2 [facility] [place] Comment on above: Performed By: #### U MICRO, UACSIND #### [facility] [address] [place] [address] Dr. Cyril Hendricks MCV (RBC) [Entitic vol] 93.5 fL Normal 81.0-99.0 [facility] Comment on above: Performed By: #### U MICRO, UACSIND #### [facility] [address] [place] [address] Dr. Cyril Hendricks MONO # 0.8 103/ul Normal 0.3-0.8 [facility] [place] Comment on above: Performed By: #### U MICRO, UACSIND #### [facility] [address] [place] [address] Dr. Cyril Hendricks Monocytes/100 WBC (Bld) 6.2 % Normal 1.7-12.0 [facility] Comment on above: Performed By: #### U MICRO, UACSIND #### [facility] [address] [place] [address] Dr. Cyril Hendricks NEUT # 8.6 103/ul Critically high 1.4-6.5 [facility] Comment on above: Performed By: #### U MICRO, UACSIND #### [facility] [address] [place] [address] Dr. Cyril Hendricks Neutrophils/100 WBC (Bld) 70.7 % Normal 43.0-75.0 [facility] [place] Comment on above: Performed By: #### U MICRO, UACSIND #### [facility] [address] [place] [address] Dr. Cyril Hendricks Platelet mean volume (Bld) [Entitic vol] 9.1 fL Critically low 9.5-13.5 [facility] [place] Comment on above: Performed By: #### U MICRO, UACSIND #### [facility] [address] [address] [address] Cyril Hendricks PLT 257 103/ul Normal 150-450 [facility] Comment on above: Performed By: #### U MICRO, UACSIND #### [facility] [address] [address] [address] Cyril Hendricks RBC 3.69 106/ul Critically low 4.20-5.40 [facility] Comment on above: Performed By: #### U MICRO, UACSIND #### [facility] [address] [address] [address] Cyril Hendricks WBC 12.2 103/ul Critically high 4.0-11.0 [facility] Comment on above: Performed By: #### U MICRO, UACSIND #### [facility] [address] [address] [address] Cyril Hendricks CULTURE URINEon 10-02-2021 CULTURE URINE Culture Observations: MODERATE GROWTH OF MIXED GENITAL DRAGAN. NO POTENTIAL PATHOGENS SEEN. Normal [facility] [place] Comment on above: Performed By: #### H CVPCRR #### [facility] [address] [address] [address] Cyril Hendricks GLYCOHEMOGLOBIN A1Con 2021 ADA RECOMMENDATION SEE BELOW Normal [facility] Comment on above: Result Comment: ADA RECOMMENDED LIMIT 4.0 - 6.0 ADA THERAPEUTIC TARGET < 7.0 ACTION SUGGESTED > 7.0 Performed By: #### H CVPCRR #### [facility] [address] [address] [address] Cyril Hendricks Glucose [Mass/Vol] 80 mg/dL Normal [facility] Comment on above: Performed By: #### H CVPCRR #### [facility] [address] [place] [address] Dr. Cyril Hendricks HbA1c (Bld) [Mass fraction] 4.4 % Critically low 4.5-6.2 [facility] [place] Comment on above: Performed By: #### H CVPCRR #### [facility] [address] [address] [address] Cyril Hendricks TYPE AND SCREENon 10-02-2021 TYPE AND SCREEN Negative Normal [facility] Comment on above: Performed By: #### H CVPCRR #### [facility] [address] [place], [place] [address] Dr. Cyril Hendricks US PREG PLACENTAon 2 [...] SOFIA KABA Date: 2021-10-02 10:47 Normal [facility] US PREG ANATOMY SINGLEon US PREG [...] (44% by ultrasound, 29% by expected) FL/AC: [id number] FL/BPD: [id number] HC/AC: [id number] GESTATIONAL AGE: Age by EDC: 21 weeks, 3 days NOY by EDC: 01/12/2022 Age by current US: 21 weeks, 1 day NOY by current US: 01/14/2022 IMPRESSION: 1. Single live intrauterine with growth detailed above. 2. Posterior, low-lying placenta. Electronically authenticated by: MARS FRANKEL Date: 2021-09-04 16:30 Normal [facility] [place] Vital Signs Date Time Vital Sign Value Performing Clinician Facility 03-15-2024 12:04-0400 Body mass index (BMI) [Ratio] 29.5 kg/m2 Shabana WHITFIELD Work Phone: [facility] 03-15-2024 12:04-0400 Body weight 82.92 kg Shabana WHITFIELD Work Phone: [facility] 03-15-2024 12:04-0400 Diastolic blood pressure 70 mm[Hg] Shabana WHITFIELD Work Phone: [facility] 03-15-2024 12:04-0400 Systolic blood pressure 120 mm[Hg] Shabana WHITFIELD Work Phone: [facility] 02-03-2024 09:23-0400 Body temperature 97.88 [degF] Siva Schulte [facility] 02-03-2024 09:23-0400 Diastolic blood pressure 70 mm[Hg] Siva Schulte [facility] 02-03-2024 09:23-0400 Heart rate 85 /min Siva Schulte [facility] 02-03-2024 09:23-0400 Respiratory rate 18 /min Siva Schulte [facility] 02-03-2024 09:23-0400 SaO2% (BldA) [Mass fraction] 99 % Siva Schulte [facility] 02-03-2024 09:23-0400 Systolic blood pressure 106 mm[Hg] Siva Schulte [facility] 09-23-2023 09:16-0400 Body temperature 98.42 [degF] Wil Chandra [facility] 09-23-2023 09:16-0400 Diastolic blood pressure 68 mm[Hg] Wil Chandra [facility] 09-23-2023 09:16-0400 Heart rate 82 /min Wil Chandra [facility] 09-23-2023 09:16-0400 Respiratory rate 18 /min Wil Chandra [facility] 09-23-2023 09:16-0400 SaO2% (BldA) [Mass fraction] 97 % Wil Chandra [facility] 09-23-2023 09:16-0400 Systolic blood pressure 98 mm[Hg] Wil Chandra [facility] 08-27-2023 12:24-0400 Diastolic blood pressure 61 mm[Hg] [facility] 08-27-2023 12:24-0400 Heart rate 77 /min [facility] 08-27-2023 12:24-0400 Mean blood pressure 72 mm[Hg] [facility] 08-27-2023 12:24-0400 Respiratory rate 16 /min [facility] 08-27-2023 12:24-0400 SaO2% (BldA) [Mass fraction] 97 % [facility] 08-27-2023 12:24-0400 Systolic blood pressure 93 mm[Hg] [facility] 08-27-2023 11:30-0400 Diastolic blood pressure 69 mm[Hg] [facility] 08-27-2023 11:30-0400 Heart rate 74 /min [facility] 08-27-2023 11:30-0400 Mean blood pressure 82 mm[Hg] [facility] 08-27-2023 11:30-0400 Respiratory rate 16 /min [facility] 08-27-2023 11:30-0400 SaO2% (BldA) [Mass fraction] 99 % [facility] 08-27-2023 11:30-0400 Systolic blood pressure 107 mm[Hg] [facility] 08-27-2023 10:30-0400 Diastolic blood pressure 62 mm[Hg] [facility] 08-27-2023 10:30-0400 Heart rate 91 /min [facility] 08-27-2023 10:30-0400 Mean blood pressure 77 mm[Hg] [facility] 08-27-2023 10:30-0400 Respiratory rate 18 /min [facility] 08-27-2023 10:30-0400 SaO2% (BldA) [Mass fraction] 100 % [facility] 08-27-2023 10:30-0400 Systolic blood pressure 107 mm[Hg] [facility] 08-27-2023 09:41-0400 Body temperature 98.6 [degF] [facility] 08-27-2023 09:41-0400 Heart rate 80 /min [facility] 01-04-2023 00:03-0400 Body temperature 98.78 [degF] Siva Schulte [facility] 01-04-2023 00:03-0400 Diastolic blood pressure 54 mm[Hg] Siva Schulte [facility] 01-04-2023 00:03-0400 Heart rate 97 /min Siva Schulte [facility] 01-04-2023 00:03-0400 Mean blood pressure 70 mm[Hg] Siva Schulte [facility] 01-04-2023 00:03-0400 Respiratory rate 18 /min Siva Eris [facility] 01-04-2023 00:03-0400 SaO2% (BldA) [Mass fraction] 94 % Siva Eris [facility] 01-04-2023 00:03-0400 Systolic blood pressure 102 mm[Hg] Siva Eris [facility] 01-03-2023 23:00-0400 Body temperature 100.04 [degF] Siva Eris [facility] 01-03-2023 23:00-0400 Diastolic blood pressure 62 mm[Hg] Siva Eris [facility] 01-03-2023 23:00-0400 Heart rate 100 /min Siva Eris [facility] 01-03-2023 23:00-0400 Mean blood pressure 75 mm[Hg] Siva Eris [facility] 01-03-2023 23:00-0400 Systolic blood pressure 100 mm[Hg] Siva Eris [facility] 01-03-2023 22:42-0400 Body temperature 100.76 [degF] Siva Eris [facility] 01-03-2023 22:42-0400 Diastolic blood pressure 59 mm[Hg] Siva Eris [facility] 01-03-2023 22:42-0400 Heart rate 105 /min Siva Eris [facility] 01-03-2023 22:42-0400 Respiratory rate 20 /min Siva Eris [facility] 01-03-2023 22:42-0400 SaO2% (BldA) [Mass fraction] 99 % Siva Schulte [facility] 01-03-2023 22:42-0400 Systolic blood pressure 96 mm[Hg] Siva Schulte [facility] 10-02-2022 21:29-0400 Diastolic blood pressure 72 mm[Hg] PHYSICIAN NO [facility] 10-02-2022 21:29-0400 Heart rate 94 /min PHYSICIAN NO [facility] 10-02-2022 21:29-0400 Respiratory rate 18 /min PHYSICIAN NO [facility] 10-02-2022 21:29-0400 SaO2% (BldA) [Mass fraction] 98 % PHYSICIAN NO [facility] 10-02-2022 21:29-0400 Systolic blood pressure 141 mm[Hg] PHYSICIAN NO [facility] 10-02-2022 17:03-0400 Body height 170.18 cm PHYSICIAN NO [facility] 10-02-2022 17:03-0400 Body temperature 98.3 [degF] PHYSICIAN NO [facility] 10-02-2022 17:03-0400 Body weight 76.4 kg PHYSICIAN NO [facility] 09-25-2022 13:25-0400 Body height 170.18 cm Viet Welhc Other [facility] Other 09-25-2022 13:25-0400 Body mass index (BMI) [Ratio] 26.62 kg/m2 Viet Welch Other [facility] Other 09-25-2022 13:25-0400 Body temperature 98.2 [degF] Viet Welch Other [facility] Other 09-25-2022 13:25-0400 Body weight 77.11 kg Viet Welch Other [facility] Other 04-19-2023 13:25-0400 Diastolic blood pressure 68 mm[Hg] Viet Welch Other [facility] Other 09-25-2022 13:25-0400 Respiratory rate 18 /min Viet Welch Other [facility] Other 09-25-2022 13:25-0400 SaO2% (BldA) [Mass fraction] 98 % Viet Welch Other [facility] Other 09-25-2022 13:25-0400 Systolic blood pressure 107 mm[Hg] Viet Welch Other [facility] Other 09-06-2022 13:54-0400 Diastolic blood pressure 72 mm[Hg] Wil Corazon [facility] 09-06-2022 13:54-0400 Heart rate 60 /min Wil Corazon [facility] 09-06-2022 13:54-0400 Respiratory rate 16 /min Wil Corazon [facility] 09-06-2022 13:54-0400 SaO2% (BldA) [Mass fraction] 100 % Wil Corazon [facility] 09-06-2022 13:54-0400 Systolic blood pressure 103 mm[Hg] Wil Corazon [facility] 09-06-2022 11:41-0400 Diastolic blood pressure 65 mm[Hg] Wil Corazon [facility] 09-06-2022 11:41-0400 Heart rate 58 /min Wil Corazon [facility] 09-06-2022 11:41-0400 Mean blood pressure 77 mm[Hg] Wil Corazon [facility] 09-06-2022 11:41-0400 Respiratory rate 16 /min Wil Chandra [facility] 09-06-2022 11:41-0400 SaO2% (BldA) [Mass fraction] 100 % Wil Chandra [facility] 09-06-2022 11:41-0400 Systolic blood pressure 102 mm[Hg] Wil Chandra [facility] 09-06-2022 10:42-0400 Body temperature 98.24 [degF] Wil Chandra [facility] 09-06-2022 10:42-0400 bodymassindex 1.17 Wil Chanrda [facility] Comment on above: Result Comment: ^~:![facility]Score [facility] 09-06-2022 10:42-0400 Diastolic blood pressure 71 mm[Hg] Wil Chandra [facility] 09-06-2022 10:42-0400 Heart rate 73 /min Wil Chandra [facility] 09-06-2022 10:42-0400 Height/Length Percentile 84.89 Wil Chandra [facility] Comment on above: Result Comment: ^~:!Percentile Source -[facility] 09-06-2022 10:42-0400 Height/Length Z-Score 1.03 Wil Chandra [facility] Comment on above: Result Comment: ^~:![facility] 09-06-2022 10:42-0400 Respiratory rate 16 /min Wil Chandra [facility] 09-06-2022 10:42-0400 SaO2% (BldA) [Mass fraction] 98 % Wil Chandra [facility] 09-06-2022 10:42-0400 Systolic blood pressure 111 mm[Hg] Wil Chandra [facility] 09-06-2022 10:42-0400 weight 1.47 Wil Chandra [facility] Comment on above: Result Comment: ^~:!ZScore Source [facility] 09-06-2022 10:42-0400 Weight Percentile 92.90 % Wil Chandra [facility] Comment on above: Result Comment: ^~:!Percentile Source -[facility] 08-14-2022 21:30-0500 Diastolic blood pressure 79 mm[Hg] Bob Llanos [facility] 08-14-2022 21:30-0500 Heart rate 87 /min Bob Llanos [facility] 08-14-2022 21:30-0500 Mean blood pressure 93 mm[Hg] Bob Llanos [facility] 08-14-2022 21:30-0500 Nursing Progress Note Reason Other: pt to US via stretcher at this time. Bob Llanos [facility] 08-14-2022 21:30-0500 Respiratory rate 16 /min Bob Llanos [facility] 08-14-2022 21:30-0500 SaO2% (BldA) [Mass fraction] 100 % Bob Llanos [facility] 08-14-2022 21:30-0500 Systolic blood pressure 120 mm[Hg] Bob Llanos [facility] 08-14-2022 19:20-0500 Body temperature 98.96 [degF] Bob Llanos [facility] 08-14-2022 19:20-0500 bodymassindex 1.17 Bob Llanos [facility] Comment on above: Result Comment: ^~:![facility] 08-14-2022 19:20-0500 Diastolic blood pressure 61 mm[Hg] Bob Llanos [facility] 08-14-2022 19:20-0500 Heart rate 98 /min Bob Llanos [facility] 08-14-2022 19:20-0500 Height/Length Percentile 84.91 Bob Llanos [facility] Comment on above: Result Comment: ^~:!Percentile Source -[facility] 08-14-2022 19:20-0500 Height/Length Z-Score 1.03 Bob Llanos [facility] Comment on above: Result Comment: ^[facility] 08-14-2022 19:20-0500 Respiratory rate 16 /min Bob Llanos [facility] 08-14-2022 19:20-0500 SaO2% (BldA) [Mass fraction] 99 % Bob Llanos [facility] 08-14-2022 19:20-0500 Systolic blood pressure 114 mm[Hg] Bob Llanos [facility] 08-14-2022 19:20-0500 weight 1.47 Bob Llanos [facility] Comment on above: Result Comment: ^~:![facility] 08-14-2022 19:20-0500 Weight Percentile 92.94 % Bob Llanos [facility] Comment on above: Result Comment: ^~:!Percentile Source -[facility] 06-24-2022 13:30-0500 Body height 170.18 cm Viet Welch Other [employer] Other 06-24-2022 13:30-0500 Body mass index (BMI) [Ratio] 26.62 kg/m2 Viet Welch Other [facility] Other 06-24-2022 13:30-0500 Body temperature 97.8 [degF] Viet Welch Other [facility] Other 06-24-2022 13:30-0500 Body weight 77.11 kg Viet Welch Other [facility] Other 06-24-2022 13:30-0500 Diastolic blood pressure 63 mm[Hg] Viet Welch Other [facility] Other 06-24-2022 13:30-0500 Respiratory rate 18 /min Viet Welch Other [facility] Other 06-24-2022 13:30-0500 SaO2% (BldA) [Mass fraction] 98 % Viet Welch Other [facility] Other 06-24-2022 13:30-0500 Systolic blood pressure 97 mm[Hg] Viet Welch Other [facility] Other 11-13-2021 14:05-0400 Body height 170.18 cm Michael Oneil Other [facility] Other 11-13-2021 14:05-0400 Body mass index (BMI) [Ratio] 26.62 kg/m2 Michael Oneil Other [facility] Other 11-13-2021 14:05-0400 Body temperature 98.4 [degF] Michael Oneil Other [facility] Other 11-13-2021 14:05-0400 Body weight 77.11 kg Michael Oneil Other [facility] Other 11-13-2021 14:05-0400 Respiratory rate 18 /min Michael Oneil Other [facility] Other 11-13-2021 14:05-0400 SaO2% (BldA) [Mass fraction] 98 % Michael Oneil Other [facility] Other 11-06-2021 15:45-0400 Body height Kendra Witt Other [facility] Other 11-06-2021 15:45-0400 Body mass index (BMI) [Ratio] 26.62 kg/m2 Kendra Witt Other [facility] Other 11-06-2021 15:45-0400 Body weight 77.11 kg Kendra Witt Other [facility] Other 11-06-2021 15:45-0400 Respiratory rate 20 /min Kendra Witt Other [facility] Other 11-06-2021 15:45-0400 SaO2% (BldA) [Mass fraction] 98 % Kendra Witt Other [facility] Other Encounters Encounter Date Encounter Type Care Provider Facility Start: 03-15-2024 End: 03-15-2024 Bamboo flowsheet Shabana WHITFIELD Work Phone: [facility] Start: 03-15-2024 End: 03-15-2024 Bamboo flowsheet Shabana WHITFIELD Work Phone: [facility] Start: 03-15-2024 End: 03-15-2024 ambulatory SHABANA CORRAL Not Available Start: 03-15-2024 End: 03-15-2024 Office outpatient visit 15 minutes Shabana WHITFIELD Work Phone: [facility] Comment on above: 35 weeks gestation o f ; Third trimester Start: 03-01-2024 End: 03-01-2024 ambulatory JUVENAL MIRI Not Available Start: 02-16-2024 End: 02-16-2024 ambulatory SHABANA CORRAL Not Available Start: 02-03-2024 End: 02-03-2024 Emergency department patient visit Siva Schulte [facility] Start: 01-26-2024 End: 01-26-2024 ambulatory JUVENAL MIRI Not Available Start: 12-29-2023 End: 12-29-2023 ambulatory SHABANA ELLIS Not Available Start: 12-22-2023 End: 12-22-2023 ambulatory JUVENAL [facility] Start: 12-01-2023 End: 12-01-2023 ambulatory JUVENAL MIRI Not Available Start: 11-10-2023 End: 11-10-2023 ambulatory JUVENAL R [facility] Start: 10-27-2023 End: 10-27-2023 ambulatory SHABANA CORRAL Not Available Start: 09-29-2023 End: 09-29-2023 ambulatory JUVENAL MIRI Not Available Start: 09-23-2023 End: 09-23-2023 Emergency department patient visit Wil Chandra [facility] Start: 09-04-2023 End: 09-04-2023 ambulatory JUVENAL MIRI Not Available Start: 08-27-2023 End: 08-27-2023 Emergency department patient visit Emily Harper [facility] Start: 08-18-2023 End: 08-18-2023 ambulatory SELAM HUNTER Facility[facility] Start: 01-03-2023 End: 01-04-2023 Emergency department patient visit Siva Schulte [facility] Start: 12-12-2022 End: 12-12-2022 ambulatory Kenneth Mills Other [facility] Other Start: 12-12-2022 Telephone encounter Kenneth Mills [facility] Start: 10-02-2022 End: 10-02-2022 Emergency department patient visit Jose Silverman Facility:[facility] Start: 10-02-2022 End: 10-02-2022 Emergency department patient visit PHYSICIAN SJ LERNER [facility] Work Phone: Start: 09-25-2022 End: 09-25-2022 ambulatory Viet Yuri Other [facility] Other Start: 09-25-2022 Office outpatient visit 15 minutes Viet Yuri [facility] Start: 09-06-2022 End: 09-06-2022 Emergency department patient visit Wil Chandra [facility] Start: 08-14-2022 End: 08-14-2022 Emergency department patient visit Bob Llanos [facility] Start: 07-11-2022 End: 07-11-2022 ambulatory ROSEANN CORRAL Facility:[facility] Start: 06-24-2022 End: 06-24-2022 ambulatory Viet Welch Other [facility] Other Start: 06-24-2022 Office outpatient visit 15 minutes Viet Heartwell [facility] Start: 01-11-2022 End: 01-11-2022 ambulatory NONE LISTED REQUEST Facility:[facility] Start: 01-07-2022 End: 01-09-2022 Evaluation and management of inpatient DR RENATA GEORGES Facility:[facility] Start: 12-29-2021 End: 12-29-[address] JUVENAL THORPE Facility:[facility] Start: 12-19-2021 End: 12-19-[address] JUVENAL THORPE Facility:[facility] Start: 12-12-2021 End: 12-13-[address] [facility] Start: 12-12-2021 End: 12-12-2021 Subsequent hospital visit by physician [facility] Start: 11-27-2021 End: 11-27-[address] SOFIA KABA Facility:[facility] Start: 11-13-2021 End: 11-13-2021 ambulatory Michael Oneil Other [facility] Other Start: 11-13-2021 Office outpatient visit 15 minutes Michael Oneil [facility] [address] Start: 11-06-2021 End: 11-06-2021 ambulatory Kendra Witt Other [facility] Other Start: 11-06-2021 Office outpatient visit 25 minutes Kendra Witt [facility] Start: 10-23-2021 End: 10-24-[address] JUVENAL THORPE Facility:[facility] Start: 10-02-2021 End: 10-03-[address] SOFIA KABA Facility:[facility] Start: 09-04-2021 End: 09-05-[address] RENATA GEORGES Facility:[facility] Procedures Date Procedure Procedure Detail Performing Clinician Start: 03-15-2024 Urnls dip stick/tabl et rgnt non-auto w/o micrscp Shabana WHITFIELD Work Phone: Start: 01-07-2022 Delivery of Products of Conception, [...] Start: 12-12-2021 Assay of free thyroxine Juaquin Castillo MD Work Phone: Elbow region structu re (body structure) Bob Llanos Plan of Treatment Date Care Activity Detail Author Start: 03-29-2024 End: 03-29-2024 Patient encounter procedure 03/29/2024 11:20 AM EDT Routine [facility] [address] [place] [id number] Juvenal Thorpe, DO [address] [place] [address] [facility] Start: 03-22-2024 End: 03-22-2024 Patient encounter procedure 03/22/2024 11:10 AM EDT Routine [facility] [address] [place] [id number] Juvenal Thorpe, DO [address] [place] [address] [facility] Start: 10-02-2022 Bacteria identified in Urine by Culture Urine Culture [facility] Start: 02-07-2022 Influenza vaccination Flu vaccine (# 1) [facility] Start: 01-09-2022 End: 01-09-2022 Patient encounter procedure 01/09/2022 Routine Perinatology [facility] Start: 01-02-2022 End: 01-02-2022 Patient encounter procedure 01/02/2022 Routine Perinatology [facility] Start: 12-26-2021 End: 12-26-2021 Patient encounter procedure 12/26/2021 Routine Perinatology [facility] Start: 12-20-2021 End: 12-20-2021 Patient encounter procedure 12/20/2021 Routine Perinatology [facility] Start: 2021 DTaP/Tdap/Td vaccine (1 - Tdap) DTaP/Tdap/Td vaccine (1 - Tdap) [facility] Start: 2020 Hepatitis C screening Hepatitis C sc reen [facility] Start: 2018 Screening for Chlamy nazanin trachomatis Chlamydia screen [facility] Start: 2017 HIV screening HIV screen [facility] [employer] [place] Start: 2014 Depression Monitoring Depression Mon itoring [facility] Start: 2013 HPV vaccine (1 - 2-d ose series) HPV vaccine (1 - 2-dose series) [facility] Start: 09-16-2007 COVID-19 Vaccine (1) COVID-19 Vaccin e (1) [facility] Start: 09-16-2003 Varicella vaccine (1 of 2 - 2-dose childhood series) Varicella vaccine (1 of 2 - 2-dose childhood series) [facility] Patient Education Depression, Adult ED [facility] Work Phone: Patient referral [facility] Work Phone: End: 12-12-2021 Sjogrens syndrome-A extractable nuclear antibody [facility] [employer] [facility] Work Phone: Comment on above: Once for 1 Occurrenc es starting 12/12/2021 until 12/12/2021 End: 12-12-2021 Sjogrens syndrome-B extractable nuclear antibody [facility] Work Phone: Comment on above: Once for 1 Occurrenc es starting 12/12/2021 until 12/12/2021 Immunizations Immunization Date Immunization Notes Care Provider Simona galarza NEGATED: Highlighted row has not occurred!11-05-2019 influenza, injectable, quadrivalent, contains preservative Kendra Witt Other [employer] Other NEGATED: Highlighted row has not occurred!04-10-2019 influenza virus vaccine, unspecified formulation Bob Llanos [facility] Payers Date Payer Category Payer Medicaid [employer] [place] [id number] 2023-Present [address] [place] [address] [id number] 2022 [facility] [id number] 2002 Unknown [id number] 2.16.840.1.278285.3.579.2.175 2002 Unknown [id number] 2.16.840.1.515646.3.579.2.593 2002 Unknown [id number] 2.16.840.1.580024.3.579.2.593 2002 Unknown [id number] 2.16.840.1.212036.3.579.2.593 2002 Unknown [id number] 2.16.840.1.164310.3.579.2.593 2002 Unknown [id number] 2.16.840.1.540905.3.579.2.593 2002 Unknown [id number] 2.16.840.1.908996.3.579.2.593 2002 Unknown [id number] 2.16.840.1.360321.3.579.2.593 2002 Unknown [id number] 2.16.840.1.129470.3.579.2.593 2002 Unknown [id number] 2.16.840.1.481630.3.579.2.593 2002 Unknown [id number] 2.16.840.1.085380.3.579.2.593 2002 Unknown [id number] 2.16.840.1.322155.3.579.2.593 2002 Unknown [id number] 2.16.840.1.007328.3.579.2.1286 2002 Unknown [id number] 2.16.840.1.643836.3.579.2.1286 2002 Unknown [id number] 2.16.840.1.580195.3.579.2.1286 2002 Unknown [id number] 2.16.840.1.852243.3.579.2.727 2002 Unknown [id number] 2.16.840.1.427132.3.579.2.727 2002 Unknown [id number] 2.16.840.1.234437.3.579.2.727 2002 Unknown [id number] 2.16.840.1.795177.3.579.2.727 2002 Unknown [id number] 2.16.840.1.018273.3.579.2.727 2002 Unknown [id number] 2.16.840.1.937883.3.579.2.9 2002 Unknown [id number] 2.16.840.1.773194.3.579.2.1258 2002 Unknown [id number] 2.16.840.1.243929.3.579.2.1258 2002 Unknown [id number] 2.16.840.1.462105.3.579.2.1258 2002 Unknown [id number] 2.16.840.1.201646.3.579.2.1258 2002 Unknown [id number] 2.16.840.1.147942.3.579.2.1258 2002 Unknown [id number] 2.16.840.1.823623.3.579.2.1258 2002 Unknown [id number] 2.16.840.1.790981.3.579.2.1258 2002 Unknown [id number] 2.16.840.1.778788.3.579.2.1259 1959 Unknown [id number] 2.16.840.1.379974.19 1959 Unknown [id number] Unknown [id number] 2.16.840.1.153123.3.579.2.531 Social History Date Type Detail Facility Sex Assigned At [facility] Start: 11-28-2021 Tobacco smoking status NHIS Never smoked tobacco [facility] Phone: Start: 11-28-2021 Tobacco use and exposure Smokeless tobacco non-user [facility] Phone: Start: 12-12-2021 Alcohol intake Ex-drinker (finding) [facility] Phone: Start: 12-12-2021 Tobacco Comment no longer vapes [facility] Phone: Start: 04-21-2021 [facility] Phone: Start: 2000 Sex Assigned At Not on file B ON [employer] Phone: Tobacco Current vaping o r e-cigarette use Smokeless Tobacco Use:. Vaping [facility] Tobacco smoking status No Smoking Status Entered [facility] Start: 10-02-2022 Tobacco smoking status NHIS Smoker (finding) [facility] Start: 2000 Sex Assigned At Female F [facility] Tobacco smoking status NHIS Tobacco smoking consumption unknown [facility] Start: 01-17-2023 Gender identity Identifies as female gender (finding) [facility] Healthcare Functional Status Date Assessment Result Facility 02-03-2024 Functional Status N/A [facility] 09-23-2023 Functional Status N/A [facility] 08-27-2023 Functional Status N/A [facility] 01-03-2023 Functional Status N/A [facility] 09-06-2022 Functional Status N/A [facility] 08-14-2022 Functional Status N/A [facility] Clinical Notes 11-06-2021 to 03-15-2024 ROSEANN Smith - 03/15/2024 11:50 AM EDT Note Date & Type Note Facility 03-15-2024 History of Presen t illness Narrative Reason for Appointment: Patient ID: Kailyn Ackerman is a 23 y.o. female who presents for Routine Visit Patient presents today for Return OB appointment. MEDICATIONS Current Outpatient Medications Medication Instructions Ferrous Sulfate (IRON PO) 1 tablet, Oral, Daily RT magnesium oxide (MAG-OX) 400 mg, Oral, Daily ondansetron (ZOFRAN) 4 mg, Oral, Every 8 hours PRN ALLERGIES No Known Allergies PROBLEMS Active Ambulatory Problems Diagnosis Date Noted Missed menses 09/02/2023 History of miscarriage 09/02/2023 Resolved Ambulatory Problems Diagnosis Date Noted No Resolved Ambulatory Problems No Additional Past Medical History HISTORY PAST MEDICAL HISTORY SOCIAL HISTORY History reviewed. No pertinent past medical history. Social History Tobacco Use Smoking status: Not on file Smokeless tobacco: Not on file Substance Use Topics Alcohol use: Not on file Drug use: Not on file FAMILY HISTORY No family history on file. SURGICAL HISTORY History reviewed. No pertinent surgical history. REVIEW OF SYSTEMS Review of Systems: Review of Systems All other systems reviewed and are negative. OBJECTIVE Objective: Physical Exam Constitutional: Appearance: Normal appearance. She is well-developed. Cardiovascular: Rate and Rhythm: Normal rate and regular rhythm. Pulmonary: Effort: Pulmonary effort is normal. Breath sounds: Normal breath sounds. Abdominal: General: Bowel sounds are normal. There is no distension. Palpations: Abdomen is soft. Tenderness: There is no abdominal tenderness. There is no guarding or rebound. Musculoskeletal: General: No swelling. Normal range of motion. Right lower leg: No edema. Left lower leg: No edema. Neurological: Mental Status: She is alert and oriented to person, place, and time. Skin: General: Skin is warm and dry. Psychiatric: Mood and Affect: Mood normal. Behavior: Behavior normal. Vitals and nursing note reviewed. Exam conducted with a insurance consultant present. Vitals: Estimated body mass index is 29.5 kg/m as calculated from the following: Height as of 09/11/22: 5' 6 . Weight as of this encounter: 182 lb 12.8 oz. BP: 120/70 Patient's last menstrual period was 07/10/2023. ASSESSMENT & PLAN ICD-10-CM 1. 35 weeks gestation of Z3A.35 POCT urinalysis dipstick manually resulted 2. Third trimester Z34.93 POCT urinalysis dipstick manually resulted Return OB: Patient presents today for a routine obstetrics appointment. Patient is currently 35w4d . Patient states she is doing well but has complaints of being tired due to current . Patient has verbalizes frequent movement. labor precautions was discussed/given and patient was instructed to perform kick counts three times a day. Orders Placed This Encounter Procedures POCT urinalysis dipstick manually resulted Follow Up: Patient is to return to office in 1 week for routine OB appointment. Documented by Taina Johnson LPN on behalf of: ROSEANN Smith documented in this encounter [facility] 02-03-2024 Evaluation + Plan note Extrac ruby from: Title:ED Note Author:Kiki CHUNG, Duc Torres te:02/03/24 Sore throat (J02.9: Acute ph aryngitis, unspecified) Viral URI (J06.9: Acute upper respiratory infection, unspecified) Orders: Group A Strep by PCR Rapid Strep w/rfx Diagnostic Tests Pending * Group A Strep by PCR 02/03/24 [facility] 08-27-2024 Hospital Discharge instructions Patient [...] medicines to help relieve symptoms, such as: Fjcd-tpv-qvzhtrt cold medicines. Cough suppressants. Coughing is a [...] and other clear broths. General instructions Take klmb-osq-mxpnodo and prescription medicines only as told by [...] and water are not available, use hand rubber stamp die inspector. Avoid touching your mouth, face, eyes, or [...] provider. Document Revised: 12/26/2021 Document Reviewed: 12/26/2021 Elsevier Patient Education 2022 A-STAR. Follow Up Care 02/03/2024 09:23:13 With:Juvenal THORPE Address: [address] [place] [address]- Business (1) When:02/06/2024 11:12:27 With:SELAM ANGELAULT Address: [address] [place] [address]- Business (1) When:02/06/2024 11:12:21 [facility] 08-27-2024 NoteED Patient Education Note [...] to help relieve symptoms, such as: ? Zvrx-izb-jkumhli cold medicines. ? Cough suppressants. Coughing is [...] other clear broths. General instructions ? Take sbua-cbh-paedcwc and prescription medicines only as told by [...] soap and water are not available,use hand rubber stamp die inspector. ? Avoid touching your mouth, face, eyes, [...] Mood. These symptoms m (more content not included)...[facility] 09-23-2023 Hospital Discharge instructions Patient Education [...] provider. Document Revised: 02/19/2021 Document Reviewed: 02/19/2021 [employer] Patient Education 2022 A-STAR. Follow Up Care 09/23/2023 09:11:45 With:Juvenal THORPE Address: [address] [place] [address] Business (1) When:09/26/2023 11:44:07 [facility]03-20-2024 Hospital Discharge instructions Patient Education [...] provider. Document Revised: 01/09/2022 Document Reviewed: 01/09/2022 Elsevier Patient Education 2022 A-STAR. 08/27/2023 12:34:16 Urinary Tract Infection, Adult, Fdlf-fq-Fbga Urinary Tract Infection, Adult A urinary tract [...] Follow these instructions at home: Medicines Take juqh-mkg-vzwwlty and prescription medicines only as told by [...] provider. Document Revised: 01/05/2021 Document Reviewed: 01/05/2021 [employer] Patient Education 2022 [employer] 08/27/2023 12:34:16 Subchorionic Hematoma Subchorionic Hematoma [...] provider. Document Revised: 02/19/2021 Document Reviewed: 02/19/2021 [employer] Patient Education 2022 A-STAR. Follow Up Care 08/27/2023 09:39:16 With:Juvenal THORPE Address: [facility] [address] [facility] , [place] [address]- Business (1) When:08/30/2023 12:05:10 With:SELAM HUNTER Address: [facility] [place] [address] Business (1) When:Within 3 Day(s) [facility]03-20-2024 Evaluation + Plan noteExtracted from: [...] day(s), # 28 cap(s), Refills(s) 0, [id number], 170, cm, 08/27/23 9:49:00 EDT, Height/Length Dosing, 78.7, kg, 08/27/23 9:49:00 EDT, Weight Dosing ABO/Rh Basic Metabolic Panel Beta hCG Quantitative CBC w/ Auto Diff eGFR Extra Blue Tube Extra SST Tube UA with Cult Rflx Urine Culture US 1st Trimester US Transvaginal Diagnostic Tests Pending * Urine Culture 08/27/23 [facility]07-29-2023 Hospital Discharge instructions Patient Education 01/04/2023 00:13:01 Pharyngitis, Cxai-qi-Nnir Pharyngitis Pharyngitis is a sore throat (pharynx). [...] Follow these instructions at home: Medicines Take bepc-jak-tpvltaj and prescription medicines only as told by [...] and water are not available, use hand rubber stamp die inspector. Do not touch your eyes, nose, or [...] provider. Document Revised: 08/22/2021 Document Reviewed: 08/22/2021 [employer] Patient Education 2022 A-STAR. Follow Up Care 01/03/2023 22:32:55 With:Thony Carl Address: [address] [place] [address] [place] [address] Business (1) When:01/06/2023 Comments:Follow-up with your primary care provider in 3 to 5 days. If symptoms worsen, do not improve, or new symptoms arise please report back to emergency department for further evaluation. [facility]07-28-2023 Evaluation + Plan noteExtracted from: [...] q12hr, # 20 cap(s), Refills(s) 0, Pharmacy: [facility], 170, cm, 01/03/23 22:44:00 EDT, Height/Length Dosing, 75.3, kg, 01/03/23 22:44:00 EDT, Weight Dosing ondansetron, 4 mg = 1 tab(s), Oral, q8hr, PRN Nausea/Vomiting, # 12 tab(s), Refills(s) 0, Pharmacy: [facility], 170, cm, 01/03/23 22:44:00 EDT, Height/Length Dosing, 75.3, kg, 01/03/23 22:44:00 EDT, Weight Dosing ondansetron, 12 mg = 3 tab(s), Tab-Dis, Oral, Once, Stop date 01/03/23 23:45:00 EDT, STAT, Start date 01/03/23 23:45:00 EDT, 01/03/23 23:45:00 EDT Automated Diff Basic Metabolic Panel Beta hCG Quantitative CBC w/ Auto Diff eGFR Hepatic Function Panel Lipase Level [facility]04-19-2023 Evaluation note* Encounter Date Diagnosis [...] of symptoms occur by end of treatment. [employer] Other [id number] Hospital Discharge instructions Patient Education 09/06/2022 13:56:20 [...] Follow these instructions at home: Medicines Take rxrf-ydd-fbpqdye and prescription medicines only as told by [...] important. Where to find more information The [place] [employer]: www.acog.org [place] [...] 11/19/2001 Document Revised: 09/17/2019 Document Reviewed: 07/01/2017 [employer] Patient Education 2019 A-STAR. Follow Up Care 09/06/2022 10:42:16 With:Juvenal THORPE Address: [address] [place] [address] Business (1) When:09/09/2022 13:46:05 [facility]03-09-2023 Hospital Discharge instructions Patient Education 08/14/2022 22:12:46 Abdominal Pain During , Scul-oq-Ridk Abdominal Pain During Belly (abdominal) pain is [...] keep your pee (urine) pale yellow. Take hlkq-ouf-ogdzofy and prescription medicines only as told by [...] 05/14/2010 Document Revised: 09/13/2019 Document Reviewed: 08/28/2017 [employer] Patient Education 2020 [employer] 08/14/2022 22:12:46 Abdominal Pain, Adult, Mzgq-mg-Pimp Abdominal Pain, Adult Many things can cause belly (abdominal) pain. Most times, belly pain is not dangerous. Many cases of belly pain can be watched and treated at home. Sometimes, though, belly pain is serious. Your doctor will try to find the cause of your belly pain. Follow these instructions at home: Medicines Take qknq-hrg-apnditw and prescription medicines only as told by [...] your belly pain for any changes. Take mhgd-vkn-hngrgpk and prescription medicines only as told by [...] 11/11/2008 Document Revised: 10/04/2019 Document Reviewed: 10/04/2019 [employer] Patient Education 2020 [employer] Follow Up Care 08/14/2022 18:41:38 With:Juvenal THORPE Address: [address] , [place] [address]- Business (1) When:08/17/2022 Comments:Follow-up with Dr. Thorpe for further evaluation of your . With:Juventino Carbajal Address: [facility] [place] [address]- When:08/17/2022 Comments:Follow-up with your primary care provider in 3 to 5 days. If symptoms worsen, do not improve, or new symptoms arise please report back to emergency department for further evaluation. [facility]01-16-2023 Evaluation note* Encounter Date Diagnosis [...] return precautions. Jun, Cough (ICD-10 - R05.9) [employer] Other 06-07-2022 Evaluation note* Encounter Date Diagnosis [...] Pt understood and agreed to tx plan. [facility] Other 05-31-2022 Evaluation note* Encounter Date Diagnosis [...] condition October, Sore throat (ICD-10 - J02.9) [employer] Other Evaluation + Plan note No data available for this section [facility] note[facility] assessment information available [facility] Work Phone: Evaluation noteNo [employer] Other Evaluation note* Diagnosis 35 weeks gestation of Third trimester state, incidental documented in this encounter [facility] N[facility]ative - Reported* Type Description Date Medical History fx lt elbow at age 7 Surgical History surgical repair of left elbow f racture at age 7 Hospitalization History see surgical hx AnybodyOutThere [facility] [employer] Other Progress note No data available for this section [facility] Summary Purpose Family History No [...] FoundNo Family History Records Found Advance Directives Advance Directive Response Recorded Date/ Time Advance Directives No December 17 7:51pm Chief Complaint and Reason for Visit Chief Complaint sent by therapist Additional Source Comments REASON FOR VISIT (unrecogniz ed section and content) Reason Comments Routine Visit INFORMATION SOURCE (unrecogn ized section and content) DATE CREATED AUTHOR 01/05/2022 [facility] DATE CREATED AUTHOR AUTHOR'S ORGANIZ ATION 07/15/2022 [facility] DATE CREATED AUTHOR AUTHOR'S ORGANIZ ATION 10/10/2022 [facility] DATE CREATED AUTHOR AUTHOR'S ORGANIZ ATION 12/26/2023 [facility] DATE CREATED AUTHOR AUTHOR'S ORGANIZ ATION 02/05/2024 [facility] DATE CREATED AUTHOR AUTHOR'S ORGANIZ ATION 02/06/2024 Rand Langlade [facility] DATE CREATED AUTHOR AUTHOR'S ORGANIZ ATION 03/16/2024 [facility] [employer] Care Teams (unrecognized sec tion and content) Personnel Name: ELSALEILANI VELEZ SELAM Leslee Address: Address: [facility] [address], [facility] [place], [place] [address] Team Status: Active Member Role Status [...] BE BASED ON THE PRIMARY CLINICAL RECORDS. [facility] [employer] provides no warranty or guarantee of the accuracy or completeness of information in this document.
--- NOTE | 2024-03-22 13:04 | US_ITS ---
[address] [address] Patient Name: KAILYN ACKERMAN MRN: [id number] date: 2000 Sex: F Assigned Patient Location: [facility] Current Patient Location: [facility] Accession/Order Number: [id number] Exam Date: 03/22/2024 13:10 Report Date: 03/22/2024 14:15 At the request of: VAL ANG Procedure: US OB BPP w non-stress EXAMINATION: US OB BPP w non-stress HISTORY: ANTEPARTUM PLACENTA CIRCUMVALLATA O43.119 COMPARISON: No relevant comparison available. TECHNIQUE: Ultrasound biophysical profile was performed in the radiology department. non-reactive stress testing was performed by nursing staff in the birthing center. FINDINGS: BREATHING MOVEMENTS: 2 GROSS BODY MOVEMENTS: 2 TONE: 2 QUALITATIVE AMNIOTIC FLUID VOLUME: 2 PRESENTATION: Cephalic HEART RATE: 142 bpm AMNIOTIC FLUID VOLUME: 10.6 cm GESTATIONAL AGE: 36 weeks 4 days US/US OB BPP w non-stress IMPRESSION: Total biophysical profile score: 8/8 Electronically authenticated by: SOFIA KABA Date: 03/22/2024 14:15
--- NOTE | 2024-03-22 13:05 | US_ITS ---
[address] [address] Patient Name: KAILYN ACKERMAN MRN: [id number] date: 2000 Sex: F Assigned Patient Location: [facility] Current Patient Location: Accession/Order Number: [id number] Exam Date: 03/22/2024 13:10 Report Date: 03/22/2024 14:35 At the request of: VAL ANG Procedure: US OB umbilical artery EXAMINATION: US OB umbilical artery HISTORY: ANTEPARTUM PLACENTA CIRCUMVALLATA O43.119 COMPARISON: No relevant comparison available. TECHNIQUE: Duplex Doppler evaluation of the umbilical arteries. FINDINGS: position: Cephalic presentation, longitudinal lie Amniotic fluid volume 10.6 cm Largest fluid pocket: 5.2 cm Heart rate: 142 bpm Three-vessel cord with 2 umbilical arteries Proximal umbilical artery: 129/59 cm/s. Resistive index 0.54. Ratio 2.2 Mid umbilical artery: 98/44 cm/s. Resistive index 0.55. Ratio 2.2 Distal umbilical artery: 40/22 cm/s. Resistive index 0.45. Ratio 1.8 Forward flow identified throughout diastole Clinical age: 36 weeks 4 days Clinical NOY: 04/15/2024 US/US OB umbilical artery IMPRESSION: Normal exam. Class 0 Umbilical Artery: Class 0 = Normal umbilical artery blood velocity Class I = increased RI or PI, but still forward flow in diastole Class II = Absent end diastolic flow (AEDF) Class III = Reversal of end diastolic flow (REDF) Resistive Index (RI)<1 Systolic/Diastolic ratio (S:D): An S:D ratio of 2-3 after 34 wks is normal Systolic/Diastolic ratio (S:D): Age 16: 3.01 for the 10th percentile, 4.25 for the 50th percentile, 6.07 for the 90th percentile Age 20: 3.16 for the 10th percentile, 4.04 for the 50th percentile, 5.24 for the 90th percentile Age 24: 2.70 for the 10th percentile, 3.50 for the 50th percentile, 4.75 for the 90th percentile Age 28: 2.41 for the 10th percentile, 3.02 for the 50th percentile, 3.97 for the 90th percentile Age 30: 2.43 for the 10th percentile, 3.04 for the 50th percentile, 3.80 for the 90th percentile Age 32: 2.27 for the 10th percentile, 2.73 for the 50th percentile, 3.57 for the 90th percentile Age 34: 2.08 for the 10th percentile, 2.52 for the 50th percentile, 3.41 for the 90th percentile Age 36: 1.96 for the 10th percentile, 2.35 for the 50th percentile, 3.15 for the 90th percentile Age 38: 1.89 for the 10th percentile, 2.24 for the 50th percentile, 3.10 for the 90th percentile Age 40: 1.88 for the 10th percentile, 2.22 for the 50th percentile, 2.68 for the 90th percentile Age 41: 1.93 for the 10th percentile, 2.21 for the 50th percentile, 2.55 for the 90th percentile Age 42: 1.91 for the 10th percentile, 2.51 for the 50th percentile, 3.21 for the 90th percentile Uteroplacental Artery: Resistive Index (RI): Normal=<0.55 High Resistance=Bilateral notches (after 26 wks) and RI>0.55. Unilateral notches (after 26 wks) and RI>0.65 Systolic/Diastolic ratio (S:D) = 2-3 is normal after 32 weeks. Electronically authenticated by: SOFIA KABA Date: 03/22/2024 14:35
[2024-03-22 13:53] VITALS: BP 106/59; PULSE 80
== END 2024-03-22 14:19 | disposition home or self-care (01) ==
LOC: US 07:06 → FBC 12:56
PROVIDERS: Visit Provider Obstetrics & Gynecology
DX: O43.113 Circumvallate placenta, third trimester (principal); Z3A.36 36 weeks gestation of pregnancy
CPT/HCPCS: 76818; 76820; 87081; 87150

== ENCOUNTER 2024-03-22 20:35 | Outpatient (REF) | payer OTHER, SELFPAY ==
--- OUTSIDE RECORDS SUMMARY | 2024-03-22 20:38 | XMS_ITS | CCD ---
Author Organization [facility] Care Team Providers Care Magnetic Observer Name Role Phone Kendra Witt Unavailable Michael [...] Unavailable ZIEBER, DR MARS Mccarthy Consulting Unavailable [place], DR SOFIA Hull Consulting Unavailable REQUEST, DR [...] MIRI, DR NEAL Procedure Practitioner Unavailab ricardo [place], DR SOFIA Hull Consulting Unavailable EVER, NONE LISTED Primary Care Unavaila ble MIRI, DR NEAL Attending Unavailable MIRI, DR NEAL Admitting Unavailable MIRI, DR NEAL Consulting Unavailable [place], Viet Unavailable NONE, XXXX Primary Care Physician Unavailab le NO FAMILY, PHYSICIAN Primary Care Provider Unava MD Jose Moody Emergency Provider [phone] Jose Silverman Attending Unavailable Jose Silverman Admitting [...] Medication Allergies] Propensity to adverse reactions (disorder) [facility] Repository Medications Current Medications Medication [...] day(s), # 28 cap(s), Refills(s) 0, Pharmacy: [facility], 170, cm, 08/27/23 9:49:00 EDT, Height/Length Dosing, 78.7, kg, 08/27/23 9:49:00 EDT, Weight Dosing Start Date: 08/27/23 Stop Date: 09/03/23 Status: Ordered Start: 01-03-2023 take 1 capsule by [facility] every twelve hours Keflex 500 mg Cap 500 mg = 1 cap(s), Oral, q12hr, # 20 cap(s), Refills(s) 0, Pharmacy: [facility], 170, cm, 01/03/23 22:44:00 EDT, Height/Length Dosing, 75.3, kg, 01/03/23 22:44:00 EDT, Weight Dosing Start Date: 01/03/23 Status: Ordered Citalopram (2 sources) Serotonin Reuptake Inhibitor Citalopram Hydrobromide Active dexamethasone 1 mg/ml / neomycin 3.5 mg/ml / polymyxin b 98229 unt/ml ophthalmic suspension (2 sources) Aminoglycoside Antibacterial, Polymyxin-class Antibacterial, Corticosteroid Start: 09-26-19 take 1 drop(s) into the eye(s) four times daily Maxitrol 3.5-16046-5.1 1 drop into affected eye Ophthalmic Four [...] Daily 30 tablet 6 12/01/2023 06/28/2024 Active [place] (No Known Home Meds) (1 source) Start: 06-26-2021 [place] (No Known Home Meds) Active June 26, [...] Nausea/Vomiting, # 12 tab(s), Refills(s) 0, Pharmacy: [facility], 170, cm, 01/03/23 22:44:00 EDT, Height/Length Dosing, 75.3, kg, 01/03/23 22:44:00 EDT, Weight Dosing Start Date: 01/03/23 Status: Ordered Start: 06-09-2019 take 1 tablet by faby th three times daily Zofran ODT 4 mg Tab-Dis 4 mg = 1 tab(s), Oral, TID, # 15 tab(s), Refills(s) 0, Pharmacy: [facility] Start Date: 06/09/19 Status: Ordered [...] take 450 mg by mouth twice daily [place] Carbonate Discontinued 450 MG PO Twice daily [...] UA Negative Negative - 4(70) +++ mg/dL [facility] Blood, UA Negative Negative - 50 Miguel Ángel/mcL [facility] Clarity, UA Clear [facility] Color, UA Yellow [facility] Glucose, UA Negative Negative - 2000(110) ++++ mg/dL [facility] Interpretation and review of laboratory results Abnormal [facility] Ketones, UA Negative Negative - 160(16) ++++ mg/dL [facility] Leukocytes, UA Positive Negative - 500+++ Stefania/mcL [facility] Comment on above: small Nitrite, UA Negative Negative - Positive [facility] pH, UA 7.5 5 - 9 [facility] Protein, UA Negative Negative - 2000(20) ++++ mg/dL [facility] Spec Grav, UA 1.020 1 - 1.03 [facility] Urobilinogen, UA 4.0 0.2 - 12 mg/dL [facility] Grp A Strp PCRon 02-04-2024 Grp A Strp Intrl Ctrl Pass Normal [facility] Comment on above: Order Comment: Order Added on by Discern Rule. Performed By: #### 1 [id number] #### [facility] [address] [place] [address] S. pyogenes DNA ALFREDO+probe Ql (Throat) Negative Normal [facility] Comment on above: Order Comment: Order Added on by Discern Rule. Result Comment: Test ing performed using DNA amplification. Performed By: #### 1 [id number] #### [facility] [address] [place] [address] ED Clinical Summaryon 2023 ED Clinical Summary ED Clinical Summary [address] [address] ED Clinical Summary Person Information Name: KAILYN ACKERMAN [place] Age: 23 Years : 2000 Sex: Female Language: Ugandan PCP: SELAM HUNTER CNP Marital Status: Single Phone: [phone] Visit Id: Visit Reason: Headache; Body aches; [...] 11:17:23 02/03/2024 11:17:23 02/03/2024 11:17:23 ADDRESS: [address] [place] [phone] PHYS DOC NOTES: MEDICAL INFORMATION: Prescriptions Given: [...] Adult Follow up: With: Address: When: Juvenal [facility], [address] [place] [address] [place] [phone] Business (1) In 3 days 02/06/2024 With: Address: When: SELAM HUNTER [facility] [address], [place] [address] Business (1) In 3 days 02/06/2024 DIAGNOSIS: Sore throat; Viral URI Normal [facility] ED Note-Physicianon 02-03-20 ED Note-Physician [...] URI and will continue to follow-up with [facility] for further evaluation and management. We discussed [...] days 02/06/2024 (more content not included)... Normal [facility] Comment on above: Result Comment: Elec tronically Signed By: Duc Swanson PA-C\.br\Date and Time Signed: 02/03/24 13:23 EDT\.br\Electronically Co-Signed By: Siva Schulte DO\.br\Date and Time Co-Signed: 02/03/24 14:44 EDT ED Patient Summaryon 024 ED Patient Summary ED Patient Summary [place] [id number] Patient Discharge Instructions Person Information Name: GARCÍA ACKERMANNZIClement Gordon Age: 23 Years Arrival Date: 02/03/2024 09:21:41 Discharge Diagnosis: Sore throat; Viral URI Primary Care Physician: SELAM HUNTER CNP Provider Information Primary Provider: Siva Schulte DO Advanced Turret Punch Operator:Duc Swanson PA-C The exam and treatment you received in the Emergency Department were for an urgent problem and are not intended as complete care. It is important that you follow up with a doctor, nurse practitioner, or physician?s office clerk assistant for ongoing care. If your symptoms [...] With: Address: When: Juvenal THORPE [facility], [address] [place] [address] [place] [address] Business (1) In 3 days 02/06/2024 With: Address: When: SELAM HUNTER [facility] [place] [address] Business (1) In 3 days 02/06/2024 In the event that this physician does not participate in your insurance network, please consult with your insurance company to find a nearby participating provider. Patient Education Materials: Upper Respiratory Infection, Adult A MESSAGE TO ALL PATIENTS REGARDING OPIOIDS PRESCRIPTION OPIOIDS: WHAT YOU NEED TO KNOW Prescription opioids can be used to help relieve cfwenkys-pv-jzlenc pain and are often prescribed following a [...] of op (more content not included)... Normal [facility] MICRO OTHER TESTSOrdered By: Nita Delgadillo on 02-03-2024 S. pyogenes Ag IA.rapid Ql (Throat) Negative (02/03/24 11:07 AM) Normal Negative [facility]ero MICRO OTHER TESTSOrdered By: Asuncion Goncalves on 02-03-2024 Rapid COV Int NEG Ctl Pass (02/03/24 9:30 AM) Normal [facility] Sero Rapid COV Int POS Ctl Pass (02/03/24 9:30 AM) Normal [facility] SARS-CoV+SARS-CoV-2 (COVID-19) Ag IA.rapid Ql (Resp) Not Detected 1 (02/03/24 9:30 AM) Normal Not Detected [facility] Comment on above: Interpretive Data: [employer]ani Smart GPS Backpack Veritor System for Rapid Detection of SARS-CoV-2 [...] other viruses or pathogens; and, in the [facility], this test is only authorized for the duration of the declaration that circumstances exist justifying the authorization of emergency use of in vitro diagnostics for detection and/or diagnosis of the virus that causes COVID-19 under Section 564(b)(1) of the Act, 21 U.S.C. 360bbb-3(b)(1), unless the authorization is terminated or revoked sooner. Rapid COVID Antigen ([facility])on 02-03-2024 Rapid COV Int NEG Ctl Pass Normal [facility] Comment on above: Performed By: #### 2 [id number] #### [facility] [address] [place] [address] Rapid COV Int POS Ctl Pass Normal [facility] Comment on above: Performed By: #### 2 [id number] #### [facility] [address] [place] [address] SARS-CoV+SARS-CoV-2 (COVID-19) Ag IA.rapid Ql (Resp) Not detected Normal Not Detected [facility] Comment on above: Result [...] or revoked sooner. Performed By: #### 2 [id number] #### [facility] [address] [place] [address] Rapid Strep w/rfxon 02-03-20 24 S. pyogenes Ag IA.rapid Ql (Throat) Negative Normal Negative [facility] Comment on above: Performed By: #### 2 [id number] #### [facility] [address] [place] [address] ED Note-Physicianon 09-26-19 24 ED Note-Physician Basic [...] than 90,000. Ultrasound was obtained discussed with field radio technician. Intrauterine consistent with stated gestational age. Stable heart rate. Patient continues to demonstrate subchorionic hematoma. Also left-sided ovarian cyst similar to previous. Results were discussed with the patient. She is discharged home to continue pelvic rest and follow-up with [facility]. Patient was encouraged to return to the [...] Juvenal MIRI In 3 days 09/26/[address] [place] [address]- Business (1) Additional Instructions: Patient Education Subchorionic [...] made to ensure accuracy, however, inadvertently computerized mortician investigator mistakes may be present. Appropriate healthcare PPE [...] Yes., 04/10/2019 Lab Results Beta hCG Qnt: 66218 mIU/mL High (09/23/23 09:28:00) Diagnostic Results No qualifying data available. Normal [facility] Comment on above: Result Comment: Elec tronically Signed By: Venkat Lockwood PA-C\.br\Date and Time Signed: 09/23/23 11:45 EDT\.br\Electronically Co-Signed By: Wil Chandra DO\.br\Date and Time Co-Signed: 09/26/23 07:37 EDT [facility] Quanton 09-23-2023 [place] [address] m[IU]/mL High 1-3 F [facility] Comment on above: Result Comment: 'F N ON < 1 - 3' ' 0.2 - 1 WEEK = 5 TO 50' ' 1 - 2 WEEKS = 50 - 500' ' 2 - 3 WEEKS = 100 - 5000' ' 3 - 4 WEEKS = 500 - 63660' ' 4 - 5 WEEKS = 1000 - 08556' ' 5 - 6 WEEKS = 04985 - 014724' ' 6 - 8 WEEKS = 35728 - 684306' ' 8 - 12 WEEKS = 64576 - 220178' Performed By: #### 2 [id number] ####[facility] [address] [place] [address] CHEMISTRYOrdered By: SYSTEM SYSTEM on 09-23-2023 [place] [address] m[IU]/mL High 1 - 3 mIU/mL [facility] Comment on above: Result Comment: 'F N ON < 1 - 3' ' 0.2 - 1 WEEK = 5 TO 50' ' 1 - 2 WEEKS = 50 - 500' ' 2 - 3 WEEKS = 100 - 5000' ' 3 - 4 WEEKS = 500 - 53941' ' 4 - 5 WEEKS = 1000 - 07106' ' 5 - 6 WEEKS = 57859 - 452852' ' 6 - 8 WEEKS = 85862 - 914264' ' 8 - 12 WEEKS = 14106 - 247062' Consent for Treatmenton 09-07 Consent for Treatment [id number]#[id number] Normal [facility] Discharge Instructionson Discharge Instructions [id number]#[id number] Normal [facility] ED Clinical Summaryon 2023 ED Clinical Summary [address] [address] ED Clinical Summary Person Information Name: [facility] Age: 23 Years : 2000 Sex: Female Language: Ugandan PCP: NONE, XXXX Marital Status: Single Phone: [phone] MRN: Visit Id: Visit Reason: Back pain; [...] 11:52:16 09/23/2023 11:52:16 09/23/2023 11:52:16 ADDRESS: [address] [place] [phone] PHYS DOC NOTES: MEDICAL INFORMATION: Prescriptions Given: [...] Subchorionic Hematoma Follow up: With: Address: When: [facility], [address] [place] [address] [place] [address] Business (1) In 3 days 09/26/2023 DIAGNOSIS: Other antepartum hemorrhage, unspecified trimester; Subchorionic bleed; Vaginal bleeding in Normal [facility] ED Patient Education Noteon 09-23-2023 [...] provider. Document Revised: 02/19/2021 Document Reviewed: 02/19/2021 [employer] Patient Education ? 2022 Manufacturers' Inventory. Normal [facility] ED Patient Summaryon 024 ED Patient Summary [address] [address] Patient Discharge Instructions Person Information Name: KAILYN ACKERMAN Age: 23 Years Arrival Date: 09/23/2023 09:10:07 Discharge Diagnosis: Other antepartum hemorrhage, unspecified trimester; Subchorionic bleed; Vaginal bleeding in Primary Care Physician: NONE, XXXX Provider Information Primary Provider: Wil Chandra DO Advanced Turret Punch Operator:Venkat Leal PA-C The exam and treatment you received in the Emergency Department were for an urgent problem and are not intended as complete care. It is important that you follow up with a doctor, nurse practitioner, or physician?s office clerk assistant for ongoing care. If your symptoms [...] With: Address: When: Juvenal THORPE [facility], [address] [place] [address] [place] [address] Business (1) In 3 days 09/26/2023 In the event that this physician does not participate in your insurance network, please consult with your insurance company to find a nearby participating provider. Patient Education Materials: Subchorionic Hematoma A MESSAGE TO ALL PATIENTS REGARDING OPIOIDS PRESCRIPTION OPIOIDS: WHAT YOU NEED TO KNOW Prescription opioids can be used to help relieve sayzyfjl-ky-xnnqem pain and are often prescribed following a [...] care p (more content not included)... Normal [facility] Prescriptions/Work Noteson 0 09-23-2023 Prescriptions/Work Notes [id number]#[id number] Normal [facility] US 1st Trimesteron 09-23-2023 US [...] least 66% of the gestational sac circumference. [place] Rump Length: 3.2 cm, which corresponds Composite [...] Size = Dates Uterus Position Anteverted Normal [facility] C Urineon 08-29-2023 Bacteria identified [...] This test was performed at: [facility], [address] [place] [address], [address] , [place], Normal [facility] Comment on above: Performed By: #### 4 [id number], [id number] ####[address] [address] ABO/Rhon 08-27-2023 ABO/Rh Positive Invalid Interpretation Code [facility] Comment on above: Performed By: #### 2 [id number] ####[place] [id number] [place] [address] BLOOD BANKOrdered By: Liza Xavier on 08-27-2023 ABO/Rh Interp Positive Invalid Interpretation Code [facility] [place] Subsection BMPon 08-27-2023 Anion gap [Moles/Vol] 11 mmol/L Normal 6-16 [facility] Comment on above: Performed By: #### 1 [id number], [id number], [id number] ####[facility] [address] [place] [address] Calcium [Mass/Vol] 9.3 mg/dL Normal 8.9-11.1 [facility] Comment on above: Performed By: #### 1 [id number], 9067126, 8050190 ####[facility] [address] [place] [address] Chloride [Moles/Vol] 104 mmol/L Normal 101-111 [facility] Comment on above: Performed By: #### 1 [id number], [id number], 2909720 ####[facility] [address] [place] [address] CO2 [Moles/Vol] 24 mmol/L Normal 21-31 [facility] Comment on above: Performed By: #### 1 [id number], 2801412, 8785174 ####[facility] [address] [place] [address] Creatinine [Mass/Vol] 0.6 mg/dL Normal 0.5-1.3 [facility] Comment on above: Performed By: #### 1 3670639, 7550106, 6058030 ####[facility] [address] [place] [address] Glucose [Mass/Vol] 87 mg/dL Normal 55-199 [facility] Comment on above: Performed By: #### 1 [id number], 2867525, 8692919 ####[facility] [address] [address] Potassium [Moles/Vol] 3.7 mmol/L Normal 3.5-5.3 [facility] Comment on above: Performed By: #### 1 3445265, 0294101, 6336829 ####[facility] [address] [address] Sodium [Moles/Vol] 135 mmol/L Normal 135-145 [facility] Comment on above: Performed By: #### 1 1142279, 6315823, 1017100 ####[facility] [address] [place] [address] Urea nitrogen [Mass/Vol] 8 mg/dL Normal 5-21 [facility] Comment on above: Performed By: #### 1 [id number], 4518700, 9256378 ####[facility] [address] [place] [address] Urea nitrogen/Creatinine [Mass ratio] 13 No Units Normal 10-20 [facility] Comment on above: Performed By: #### 1 [id number], 5262665, 9770305 ####[facility] [address] [place] [address] BhCG Quanton 08-27-2023 [place] [address] m[IU]/mL High 1-3 F [facility] Comment on above: Result Comment: 'F N ON < 1 - 3' ' 0.2 - 1 WEEK = 5 TO 50' ' 1 - 2 WEEKS = 50 - 500' ' 2 - 3 WEEKS = 100 - 5000' ' 3 - 4 WEEKS = 500 - 96737' ' 4 - 5 WEEKS = 1000 - 51936' ' 5 - 6 WEEKS = 33172 - 254631' ' 6 - 8 WEEKS = 08420 - 686173' ' 8 - 12 WEEKS = 68759 - 944276' Performed By: #### 2 [id number] ####[facility] [address] [place] [address] CBC w/ Auto Diffon 4 Basophils/100 WBC (Bld) 0.6 % Normal 0.0-2.0 F [facility] Comment on above: Performed By: #### 1 9043544, 5409867, 6017641 ####[facility] [address] [place] [address] Basophils/Leukocytes Auto (Bld) [Pure # fraction] 0.0 E9/L Normal 0.0-0.2 [facility] Comment on above: Performed By: #### 1 5133341, 9442871, 3921762 ####[facility] [address] [place] [address] Eosinophils (Bld) [#/Vol] 0.1 E9/L Normal 0.0-0.5 [facility] Comment on above: Performed By: #### 1 9114812, 1260474, 6113622 ####[address] [address] Eosinophils/100 WBC (Bld) 2.0 % Normal 0.0-8.0 [facility] Comment on above: Performed By: #### 1 3427927, 2733180, 6814854 ####[address] [address] Erythrocyte distribution width (RBC) [Ratio] 15.0 % High 10.9-14.2 [facility] Comment on above: Performed By: #### 1 4244917, 0282783, 0443430 ####[address] [address] Hematocrit (Bld) [Volume fraction] 37.4 % Normal 34.0-46.0 [facility] Comment on above: Performed By: #### 1 4272265, 2829113, 8533282 ####[address] [address] Hemoglobin (Bld) [Mass/Vol] 12.7 g/dL Normal 12.0-16.0 [facility] Comment on above: Performed By: #### 1 6394905, 2008254, 3261590 ####[address] [address] Lymphocytes (Bld) [#/Vol] 2.0 E9/L Normal 1.0-4.0 [facility] Comment on above: Performed By: #### 1 9371702, 1315614, 5069782 ####[address] [address] Lymphocytes/100 WBC (Bld) 28.1 % Normal 14.0-50.0 [facility] Comment on above: Performed By: #### 1 8165111, 5938032, 4804204 ####[address] [address] MCH (RBC) [Entitic mass] 28.4 pg Normal 27.0-34.0 [facility] Comment on above: Performed By: #### 1 2938458, 5576674, 6867537 ####[address] [address] MCHC (RBC) [Mass/Vol] 33.8 g/dL Normal 31.4-36.0 [facility] Comment on above: Performed By: #### 1 4425940, 2878742, 0832508 ####[address] [address] MCV (RBC) [Entitic vol] 84.0 fL Normal 80.0-100.0 F [facility] Comment on above: Performed By: #### 1 1729131, 9384846, 8610744 ####[address] [address] Monocytes (Bld) [#/Vol] 0.5 E9/L Normal 0.2-1.0 [facility] Comment on above: Performed By: #### 1 1509556, 0920075, 4312124 ####[address] [address] Neutrophils (Bld) [#/Vol] 4.5 E9/L Normal 2.0-7.5 [facility] Comment on above: Performed By: #### 1 5740066, 4834997, 2507326 ####[address] [address] Neutrophils/100 WBC (Bld) 61.9 % Normal 36.0-75.0 [facility] Comment on above: Performed By: #### 1 2014886, 3343915, 8569591 ####[address] [address] Platelet mean volume (Bld) [Entitic vol] 7.9 fL Normal 6.4-10.8 [facility] Comment on above: Performed By: #### 1 1000595, 0334678, 9116867 ####[facility] [address] [place] [address] Platelets (Bld) [#/Vol] 252.0 E9/L Normal 150.0-500.0 [facility] Comment on above: Performed By: #### 1 6844018, 2163590, 1242770 ####[facility] [address] [place] [address] RBC (Bld) [#/Vol] 4.5 E12/L Normal 4.3-5.9 [facility] Comment on above: Performed By: #### 1 0217591, 2909075, 4375497 ####[facility] [address] [place] [address] WBC corrected for nucl RBC Auto (Bld) [#/Vol] 7.2 E9/L Normal 4.0-11.0 [facility] Comment on above: Performed By: #### 1 7025031, 9300412, 6664377 ####[facility] [address] [place] [address] CHEMISTRYOrdered By: SYSTEM SYSTEM on 08-27-2023 Anion [...] 199 mg/[place] [address] m[IU]/mL High 1 - 3 mIU/mL [facility] Comment on above: Result Comment: 'F N ON < 1 - 3' ' 0.2 - 1 WEEK = 5 TO 50' ' 1 - 2 WEEKS = 50 - 500' ' 2 - 3 WEEKS = 100 - 5000' ' 3 - 4 WEEKS = 500 - 76420' ' 4 - 5 WEEKS = 1000 - 65755' ' 5 - 6 WEEKS = 87433 - 680784' ' 6 - 8 WEEKS = 59825 - 334599' ' 8 - 12 WEEKS = 812[address] - 928158' Potassium [Moles/Vol] 3.7 mmol/L Normal 3.5 - 5.3 mmol/L [facility] Sodium [Moles/Vol] 135 mmol/L Normal 135 - 145 mmol/L [facility] Urea nitrogen [Mass/Vol] 8 mg/dL Normal 5 - 21 mg/d L [facility] Urea nitrogen/Creatinine [Mass ratio] 13 mg/mg Normal 10 - 20 [facility] Consent for Treatmenton 08-08 Consent for Treatment [id number] Normal [facility] Discharge Instructionson Discharge Instructions [id number] Normal [facility] ED Clinical Summaryon 2023 ED Clinical Summary [place] [id number] ED Clinical Summary Person Information Name: KAILYN ACKERMAN Heena/[facility] Age: 22 Years : 2000 Sex: Female Language: Ugandan PCP: SELAM HUNTER CNP Marital Status: Single Phone: [phone] MRN: Visit Id: Visit Reason: Vaginal bleeding [...] 12:34:16 08/27/2023 12:34:16 08/27/2023 12:34:16 ADDRESS: [address] [place] [phone] PHYS DOC NOTES: MEDICAL INFORMATION: Prescriptions Given: Medications to Continue Taking That Have Changed [facility], [address] [place], [place] [id number], [phone] START: cephalexin (Keflex 500 mg Cap) 1 [...] Urinary Tract Infection; Urinary Tract Infection, Adult, Wvlf-da-Dxcq; Subchorionic Hematoma Follow up: With: Address: When: Juvenal THORPE [facility], [address] [place] [address] [place] [address] Business (1) In 3 days 08/30/2023 With: Address: When: SELAM [place] [address] Business (1) In 3 days DIAGNOSIS: Other antepartum hemorrhage, unspecified trimester; Subchorionic bleed; UTI (urinary tract infection) during ; Vaginal bleeding in Normal [facility] ED Note-Physicianon 08-27-19 ED Note-Physician [...] and Complexity of Problems Differential Diagnosis: [] [facility] Data External documents reviewed: [] My EKG [...] day(s), # 28 cap(s), Refills(s) 0, Pharmacy: [facility], 170, cm, 03/20/24 9:49:00 EDT, Height/Length [...] Juvenalmagdiel RAMIREZO In 3 days 08/30/[address] , [place] [address]- Business (1) Additional Instructions: SELAM HUNTER In 3 days [address] [place] [address]- Business (1) Additional Instructions: Patient Education and Urinary Tract Infection Urinary Tract Infection, Adult, Nfrw-lo-Yxel Subchorionic Hematoma Attestation Patient seen and evaluated by the physician office clerk assistant. Attending physician was present in the emergency department and s (more content not included)... Normal [facility] Comment on above: Result [...] provider. Document Revised: 01/09/2022 Document Reviewed: 01/09/2022 [employer] Patient Education ? 2022 [employer] Urinary Tract Infection, Adult A urinary [...] swelling (inflammation) (more content not included)... Normal [facility] ED Patient Summaryon 024 ED Patient Summary [place] [id number] Patient Discharge Instructions Person Information Name: KAILYN ACKERMAN Age: 22 Years Arrival Date: 08/27/2023 09:37:12 Discharge Diagnosis: Other antepartum hemorrhage, unspecified trimester; Subchorionic bleed; UTI (urinary tract infection) during ; Vaginal bleeding in Primary Care Physician: SELAM HUNTER CNP Provider Information Primary Provider: Emily Harper M.D. Advanced Turret Punch Operator:None The exam and treatment you received in the Emergency Department were for an urgent problem and are not intended as complete care. It is important that you follow up with a doctor, nurse practitioner, or physician?s office clerk assistant for ongoing care. If your symptoms [...] With: Address: When: Juvenal THORPE [facility], [address] [place] [address] [place] [address] Business (1) In 3 days 08/30/2023 With: Address: When: [place] [id number] Business (1) In 3 days In the event that this physician does not participate in your insurance network, please consult with your insurance company to find a nearby participating provider. Patient Education Materials: and Urinary Tract Infection; Urinary Tract Infection, Adult, Lboi-fu-Davf; Subchorionic Hematoma A MESSAGE TO ALL PATIENTS REGARDING OPIOIDS PRESCRIPTION OPIOIDS: WHAT YOU NEED TO KNOW Prescription opioids can be used to help relieve rerkiagp-to-mhacgj pain and are often prescribed following a [...] toilet, follo (more content not included)... Normal [facility] HEMATOLOGYOrdered By: SYSTEM SYSTEM on [...] Rflxon 08-27-19 Color (U) Light-Yellow Normal Yellow [facility] Comment on above: Result Comment: Micr oscopic readings are only performed on those samples that meet specific criteria set forth by [facility]. Performed By: #### 4 [id number], [id number] ####[facility] [address] [place] [address] Glucose (U) [Mass/Vol] Negative Normal Negative [facility] Comment on above: Performed By: #### 4 [id number], [id number] ####[facility] [address] [place] [address] Ketones Ql (U) Negative Normal Negative [facility] Comment on above: Performed By: #### 4 [id number], [id number] ####[facility] [address] [place] [address] UA Blood 3+ Abnormal Negative [facility] Comment on above: Performed By: #### 4 [id number], [id number] ####[facility] [address] [place] [address] UA Bacteria 1+ [id number] Abnormal Trace [facility] Comment on above: Performed By: #### 4 [id number], [id number] ####[facility] [address] [place] [address] UA Clarity Turbid Abnormal Clear [facility] Comment on above: Performed By: #### 4 [id number], [id number] ####[facility] [address] [place] [address] UA Hyal Cast 0-3 Normal 0-3 [facility] Comment on above: Performed By: #### 4 [id number], [id number] ####[facility] [address] [place] [address] UA Leuk Est 250 Stefania/uL Abnormal Negative [facility] Comment on above: Performed By: #### 4 [id number], [id number] ####[facility] [address] [place] [address] UA Mucous Trace Normal Negative [facility] Comment on above: Performed By: #### 4 [id number], [id number] ####[facility] [address] [place] [address] UA Nitrite Negative Normal Negative [facility] Comment on above: Performed By: #### 4 [id number], [id number] ####[facility] [address] [place] [address] UA pH 5.5 Invalid Interpretation Code 5.0-9.0 [facility] Comment on above: Performed By: #### 4 [id number], [id number] ####[address] [address] UA Protein 1+ mg/dL Abnormal Negative [facility] Comment on above: Performed By: #### 4 [id number], [id number] ####[facility] [address] [place] [address] UA RBC 4-20 Abnormal 0-3 [facility] Comment on above: Performed By: #### 4 [id number], [id number] ####[facility] [address] [place] [address] UA Spec Grav 1.018 Invalid Interpretation Code 1.005-1.030 [facility] Comment on above: Performed By: #### 4 [id number], [id number] ####[facility] [address] [place] [address] UA Squam Epithelial 3-4 Abnormal 0-2 Fishe r [facility] Comment on above: Performed By: #### 4 [id number], [id number] ####[facility] [address] [place] [address] UA Urobilinogen Negative Normal Negative [facility] Comment on above: Performed By: #### 4 [id number], [id number] ####[facility] [address] [place] [address] UA WBC 6-15 Abnormal 0-5 [facility] Comment on above: Performed By: #### 4 [id number], [id number] ####[facility] [address] [place] [address] Urobilinogen (U) [Mass/Vol] Negative Normal Negative [facility] Comment on above: Performed By: #### 4 [id number], [id number] ####[facility] [address] [place] [address] UA Spec Desc Clean Catch Normal [facility] Comment on above: Performed By: #### 4 [id number], [id number] ####[facility] [address] [place] [address] URINALYSISOrdered By: SYSTEM SYSTEM on 08-27-2023 Color (U) Light-Yellow 1 (08/27/23 9:55 AM) Normal Yellow [facility] Auto SS Comment on above: Interpretive Data: M icroscopic readings are only performed on those samples that meet specific criteria set forth by [facility]. Glucose (U) [Mass/Vol] Negative [...] for Exam: Other (please specify) Report [facility] [phone] IMPRESSION: Single live intrauterine with estimated sonographic [...] heart rate is measured at 120 bpm. [place]-rump length 4.77 mm. Estimated sonographic gestational age [...] Transvaginal Ultrasound Performed FHR (bpm) 120 Normal [facility] US Transvaginalon 08-27-2023 US Transvaginal Exam Date/Time: 08/27/2023 11:55 EDT Reason for Exam: Other (please specify) Report [facility] [phone] Please see ultrasound pelvis, for report of transvaginal examination. Ordering Provider: Hudson Riley FINAL REPORT Dictated: 08/27/2023 12:33 pm Zach Deng MD Signed (Electronic Signature): 08/27/2023 12:33 pm Signed by: Zach Deng MD Transcribed by: KIRK Technologist: SHELLEY Normal [facility] eGFRon 08-27-2023 eGFR 131 mL/min/1.73 m2 Normal >=59 [facility] Comment on above: Order Comment: Order added by Discern Expert. Performed By: #### 1 [id number], [id number], [id number] ####[facility] [address] [place] [address] [facility] Quanton 08-19-2023 HCG.beta subunit Qn 4261 m[IU]/mL High 1-3 [facility] Comment on above: Result Comment: 'F N ON < 1 - 3' ' 0.2 - 1 WEEK = 5 TO 50' ' 1 - 2 WEEKS = 50 - 500' ' 2 - 3 WEEKS = 100 - 5000' ' 3 - 4 WEEKS = 500 - 05026' ' 4 - 5 WEEKS = 1000 - 57762' ' 5 - 6 WEEKS = 49485 - 821232' ' 6 - 8 WEEKS = 76648 - 075240' ' 8 - 12 WEEKS = 50795 - 249145' Performed By: #### 2 [id number] ####[facility] [address] [place] [address] Physician Orderon 08-19-2023 Physician Order [id number] Normal [facility] CHEMISTRYOrdered By: Juancho benitez on [...] ratio] 12 mg/mg Normal 10 - 20 [facility] [place] Remisol CHEMISTRYOrdered By: SYSTEM SYSTEM on 01-03-2023 GFR/1.73 sq M.predicted among non-blacks MDRD (S/P/Bld) [Vol rate/Area] 108 mL/min/1.73 m2 Normal >=59mL/min/1 .73 m2 [facility] [place] Chem S HCG.beta subunit Qn 1572 m[IU]/mL High 1 - 3 mIU/mL [facility] [place] Remisol HEMATOLOGYOrdered By: SYSTEM SYSTEM on 01-03-2023 [...] (U) No growth to date Continuing incubation [facility] MICRO OTHER TESTSOrdered By: Juancho Fitch [...] Interpretation Code Negative [facility] UA Auto SS [place].plasma/[place].R BC (Bld) [Mass ratio] 0-3 /HPF Normal [...] PM) Invalid Interpretation Code 1.005 - 1.030 [facility] [place] UA Auto SS UA Spec Desc Clean Catch (01/03/23 10:52 PM) Normal [facility] [place] UA Auto SS Urobilinogen Qn (U) 1.2308726 {Georgina'U}/dL Normal 0.0 - 1.0 EU/dL [facility] [place] UA Auto SS WBC Auto Ql (U) 1+ *ABN* (01/03/23 10:52 PM) Invalid Interpretation Code Negative [facility] [place] UA Auto SS WBC LM.HPF (Urine sed) [#/Area] 6-15 /HPF Invalid Interpretation Code 0-5/HPF [facility] [place] UA Auto SS Alanine aminotransferase [En zymatic activity/volume] in Serum or PlasmaOrdered By: Jose Silverman on 10-02-2022 ALT [Catalytic activity/Vol] 13 U/L Normal 7-52 [facility] Comment on above: Performed By: #### C BC, CMP, ETOH #### [facility] [address] [place] [address] [place] Albumin [Mass/volume] in Ser um or Plasma by Bromocresol green (BCG) dye binding methoOrdered By: Jose Silverman on 10-02-2022 Albumin BCG dye [Mass/Vol] 5.0 g/dL 3.5-5.7 [facility] Alkaline phosphatase [Enzyma tic activity/volume] in Serum or PlasmaOrdered By: Jose Silverman on 10-02-2022 ALP [Catalytic activity/Vol] 69 U/L Normal 34-104 [facility] Comment on above: Performed By: #### C BC, CMP, ETOH #### [facility] [address] [place] [address] [place] Amphetamine Screen Ql (U)Ord ered By: Jose Silverman on 10-02-2022 Amphetamines Ql (U) Negative Negative [facility] Aspartate aminotransferase [ Enzymatic activity/volume] in Serum or PlasmaOrdered By: Jose Silverman on 10-02-2022 AST [Catalytic activity/Vol] 21 U/L Normal 13-39 [facility] Comment on above: Performed By: #### C BC, CMP, ETOH #### [facility] [address] [place] [address] [place] Automated basophil %Ordered By: Jose Silverman on 10-02-2022 Basophils/100 WBC (Bld) 0.5 % Normal . [facility] Comment on above: Performed By: #### C BC, CMP, ETOH #### [address] Automated basophil countOrde red By: Jose Silverman on 10-02-2022 Basophils (Bld) [#/Vol] 0.1 10*3/uL Normal 0.0-0.2 [facility] Comment on above: Result Comment: PERF ORMED BY: [place] [id number] PATHOLOGIST SHUTTLE SPOTTER ASHELY CAREY M.D. Performed By: #### C BC, CMP, ETOH #### [address] Automated blood monocyte cou ntOrdered By: Jose Silverman on 10-02-2022 Monocytes (Bld) [#/Vol] 0.7 10*3/uL Normal 0.0-0.8 [facility] Comment on above: Performed By: #### C BC, CMP, ETOH #### [address] Automated eosinophil %Ordere d By: Jose Silverman on 10-02-2022 Eosinophils/100 WBC (Bld) 2.0 % Normal . [facility] Comment on above: Performed By: #### C BC, CMP, ETOH #### [address] Automated eosinophil countOr dered By: Jose Silverman on 10-02-2022 Eosinophils (Bld) [#/Vol] 0.3 10*3/uL Normal 0.0-0.45 [facility] Comment on above: Performed By: #### C BC, CMP, ETOH #### [address] Automated erythrocytes count in urine sediment (number/area)Ordered By: Jose Silverman on 10-02-2022 RBC Auto (Urine sed) [#/Area] 0-1 [HPF] 0-4 [facility] Automated leukocytes count i n urine sediment (number/area)Ordered By: Jose Silverman on 10-02-2022 WBC Auto (Urine sed) [#/Area] 10-19 [HPF] 0-4 [facility] Automated monocyte %Ordered By: Jose Silverman on 10-02-2022 Monocytes/100 WBC (Bld) 5.7 % Normal . [facility] Comment on above: Performed By: #### C BC, CMP, ETOH #### [facility] [address] Automated neutrophil %Ordere d By: Jose Silverman on 10-02-2022 Neutrophils/100 WBC (Bld) 68.7 % Normal . [facility] Comment on above: Performed By: #### C BC, CMP, ETOH #### [facility] [address] Barbiturates [Presence] in U rine by Screen methodOrdered By: Jose Silverman on 10-02-2022 Barbiturates Screen Ql (U) Negative Negative [facility] Benzodiazepines Screen Ql (U )Ordered By: Jose Silverman on 10-02-2022 Benzodiazepines Ql (U) Negative Negative [facility] Benzoylecgonine [Presence] i n Urine by Screen methodOrdered By: Jose Silverman on 10-02-2022 Benzoylecgonine Screen Ql (U) Negative Negative [facility] Bilirubin Test strip Ql (U)O rdered By: Jose Silverman on 10-02-2022 Bilirubin Ql (U) Negative Negative [facility] Bilirubin.total [Mass/volume ] in Serum or PlasmaOrdered By: Jose Silverman on 10-02-2022 Bilirubin [Mass/Vol] 0.3 mg/dL Normal 0.3-1.0 [facility] Comment on above: Performed By: #### C BC, CMP, ETOH #### [facility] [address] Calcium [Mass/volume] in Ser um or PlasmaOrdered By: Jose Silverman on 10-02-2022 Calcium [Mass/Vol] 9.6 mg/dL Normal 8.6-10.3 [facility] Comment on above: Performed By: #### C BC, CMP, ETOH #### [facility] [address] [place] [address] [place] Cannabinoids [Presence] in U rine by Screen methodOrdered By: Jose Silverman on 10-02-2022 Cannabinoids Screen Ql (U) Negative Negative [facility] Comment on above: These are unconfirme d results and should not be used for legal purposes. Drug Cut-Off Concentration: AMPH 1000 ng/mL MIAH 200 ng/mL AYAN 200 ng/mL COCM 300 ng/mL OP 300 ng/mL PCP 25 ng/mL THC 20 ng/mL Carbon dioxide, total [Moles /volume] in Serum or PlasmaOrdered By: Jose Silverman on 10-02-2022 CO2 [Moles/Vol] 27.2 mmol/L Normal 21.0-31.0 [facility] Comment on above: Performed By: #### C BC, CMP, ETOH #### [place] [address] [place] Chloride [Moles/volume] in S brian or PlasmaOrdered By: Jose Silverman on 10-02-2022 Chloride [Moles/Vol] 101 mmol/L Normal 98-107 [facility] Comment on above: Performed By: #### C BC, CMP, ETOH #### [place] [address] [place] Color Auto (U)Ordered By: Loli Silverman on 10-02-2022 Color (U) Yellow Yellow [facility] Complete Blood Count Auto Di ffon 10-02-2022 Mean Corpuscular HGB Conc 32.0 g/dL Normal 32.0-35.0 [facility] Comment on above: Performed By: #### C BC, CMP, ETOH #### [facility] [address] [place] [address] [place] Monocytes/100 WBC (Bld) 17.72 % Normal 0.00-20.00 [facility] Comment on above: Performed By: #### C BC, CMP, ETOH #### [facility] [address] [place] [address] [place] NRBC% 0.0 /100{WBC} Normal 0-0.5 [facility] Comment on above: Performed By: #### C BC, CMP, ETOH #### [facility] [address] [place] [address] [place] Comprehensive Metabolic Pane tung 10-02-2022 Albumin [Mass/Vol] 5.0 g/dL Normal 3.5-5.7 [facility] Comment on above: Performed By: #### C BC, CMP, ETOH #### [facility] [address] [place] [address] [place] Creatinine Clr Calc Pharmacy 107.48 Normal [facility] Comment on above: Result Comment: PERF ORMED BY: [place] [address] PATHOLOGIST SHUTTLE SPOTTER ASHELY CAREY M.D. Performed By: #### C BC, CMP, ETOH #### [address] GFR/1.73 sq M.predicted MDRD (S/P/Bld) [Vol rate/Area] mL/min/{1.73_m2} Normal [facility] Comment on above: Performed By: #### C BC, CMP, ETOH #### [place] [address] [place] Creatinine [Mass/volume] in Serum or PlasmaOrdered By: Jose Silverman on 10-02-2022 Creatinine [Mass/Vol] 0.89 mg/dL Normal 0.60-1.20 [facility] Comment on above: Performed By: #### C BC, CMP, ETOH #### [place] [address] [place] Dipstick and Microscopicon 0 10-02-2022 Appearance (U) Clear Normal Clear [facility] Comment on above: Order Comment: Name Collection Type:: Clean-Voided Midstream Performed By: #### U RDS, ADDONUAPLUS, CUU, UHCG #### [place] [address] [place] Bacteria,Urine 2+ High None Seen [facility] Comment on above: Order Comment: Name Collection Type:: Clean-Voided Midstream Performed By: #### U RDS, ADDONUAPLUS, CUU, UHCG #### [facility] [address] [place] [address] [place] Bilirubin,Urine Negative Normal Negative [facility] Comment on above: Order Comment: Name Collection Type:: Clean-Voided Midstream Performed By: #### U RDS, ADDONUAPLUS, CUU, UHCG #### [facility] [address] Color (U) Yellow Normal Yellow [facility] Comment on above: Order Comment: Name Collection Type:: Clean-Voided Midstream Performed By: #### U RDS, ADDONUAPLUS, CUU, UHCG #### [facility] [address] [place] [address] Glucose Ql (U) Normal Normal Normal [facility] Comment on above: Order Comment: Name Collection Type:: Clean-Voided Midstream Performed By: #### U RDS, ADDONUAPLUS, CUU, UHCG #### [facility] [address] [place] [address] [place] Hyaline Casts,Urine 0-8 Normal 0-8 [facility] Comment on above: Order Comment: Name Collection Type:: Clean-Voided Midstream Performed By: #### U RDS, ADDONUAPLUS, CUU, UHCG #### [facility] [address] [place] [address] Ketones Ql (U) Negative Normal Negative [facility] Comment on above: Order Comment: Name Collection Type:: Clean-Voided Midstream Performed By: #### U RDS, ADDONUAPLUS, CUU, UHCG #### [facility] [address] [place] [address] [place] Leukocyte esterase Test strip Ql (U) 3+ High Negative [facility] Comment on above: Order Comment: Name Collection Type:: Clean-Voided Midstream Performed By: #### U RDS, ADDONUAPLUS, CUU, UHCG #### [facility] [address] [place] [address] [place] Nitrite,Urine Negative Normal Negative [facility] Comment on above: Order Comment: Name Collection Type:: Clean-Voided Midstream Performed By: #### U RDS, ADDONUAPLUS, CUU, UHCG #### [address] Occult Blood,Urine Negative Normal Negative [facility] Comment on above: Order Comment: Name Collection Type:: Clean-Voided Midstream Performed By: #### U RDS, ADDONUAPLUS, CUU, UHCG #### [address] pH (U) 6.5 [pH] Normal 5.0-9.0 [facility] Comment on above: Order Comment: Name Collection Type:: Clean-Voided Midstream Performed By: #### U RDS, ADDONUAPLUS, CUU, UHCG #### [address] Protein,Urine Negative Normal Negative [facility] Comment on above: Order Comment: Name Collection Type:: Clean-Voided Midstream Performed By: #### U RDS, ADDONUAPLUS, CUU, UHCG #### [address] RBC LM.HPF (Urine sed) [#/Area] 0 /[HPF] Normal 0-4 [facility] Comment on above: Order Comment: Name Collection Type:: Clean-Voided Midstream Performed By: #### U RDS, ADDONUAPLUS, CUU, UHCG #### [address] Specificy [place],Urine 1.021 Normal 1.001-1.030 [facility] Comment on above: Order Comment: Name Collection Type:: Clean-Voided Midstream Performed By: #### U RDS, ADDONUAPLUS, CUU, UHCG #### [place] [address] [place] Squamous Epithelial Cell,Urine 10-19 High 0-2 [facility] Comment on above: Order Comment: Name Collection Type:: Clean-Voided Midstream Performed By: #### U RDS, ADDONUAPLUS, CUU, UHCG #### [address] [place] [address] [place] Urobilinogen,Urine Normal Normal Normal [facility] Comment on above: Order Comment: Name Collection Type:: Clean-Voided Midstream Performed By: #### U RDS, ADDONUAPLUS, CUU, UHCG #### [address] WBC,Urine 10-19 High 0-4 [facility] Comment on above: Order Comment: Name Collection Type:: Clean-Voided Midstream Performed By: #### U RDS, ADDONUAPLUS, CUU, UHCG #### [address] Drug Screen,Urineon 10-03-19 Amphetamine Screen,Urine Negative Normal Negative [facility] Comment on above: Performed By: #### U RDS, ADDONUAPLUS, CUU, UHCG #### [address] Barbiturate Screen,Urine Negative Normal Negative [facility] Comment on above: Performed By: #### U RDS, ADDONUAPLUS, CUU, UHCG #### [facility] [address] [place] [address] Benzodiazepines Screen,Urine Negative Normal Negative [facility] Comment on above: Performed By: #### U RDS, ADDONUAPLUS, CUU, UHCG #### [address] Cannabinoid Screen,Urine Negative Normal Negative [facility] Comment on above: Result Comment: Thes e are unconfirmed results and should not be used for legal purposes. Drug Cut-Off Concentration: AMPH 1000 ng/mL MIAH 200 ng/mL AYAN 200 ng/mL COCM 300 ng/mL OP 300 ng/mL PCP 25 ng/mL THC 20 ng/mL PERFORMED BY: [place] [address] PATHOLOGIST SHUTTLE SPOTTER ASHELY CAREY M.D. Performed By: #### U RDS, ADDONUAPLUS, CUU, UHCG #### [address] [address] [place] Cocaine Screen,Urine Negative Normal Negative [facility] Comment on above: Performed By: #### U RDS, ADDONUAPLUS, CUU, UHCG #### [facility] [address] Opiate Screen,Urine Negative Normal Negative [facility] Comment on above: Performed By: #### U RDS, ADDONUAPLUS, CUU, UHCG #### [facility] [address] Phencyclidine Screen,Urine Negative Normal Negative [facility] Comment on above: Performed By: #### U RDS, ADDONUAPLUS, CUU, UHCG #### [facility] [address] [place] [address] Erythrocyte distribution wid th [Ratio] by Automated countOrdered By: Jose Silverman on 10-02-2022 Erythrocyte distribution width (RBC) [Ratio] 15.8 % High 11.9-15.3 [facility] Comment on above: Performed By: #### C BC, CMP, ETOH #### [facility] [address] [place] [address] Erythrocytes [#/volume] in B lood by Automated countOrdered By: Jose Silverman on 10-02-2022 RBC (Bld) [#/Vol] 5.31 10*6/uL High 3.60-5.00 [facility] Comment on above: Performed By: #### C BC, CMP, ETOH #### [facility] [address] [place] [address] Ethanol [Mass/volume] in Ser um or PlasmaOrdered By: Jose Silverman on 10-02-2022 Ethanol [Mass/Vol] mg/dL Normal [facility] Comment on above: Performed By: #### C BC, CMP, ETOH #### [facility] [address] [place] [address] Ethanol [Mass/Vol] TNP [facility] Comment on above: Test not performed Ethyl Alcohol Profileon 09-08 Percent Ethanol Not performed Normal [facility] Comment on above: Result Comment: PERF ORMED BY: [place] [address] PATHOLOGIST SHUTTLE SPOTTER ASHELY CAREY M.D. Performed By: #### C BC, CMP, ETOH #### [address] Glucose [Mass/volume] in Ser um or PlasmaOrdered By: Jose Silverman on 10-02-2022 Glucose [Mass/Vol] 98 mg/dL Normal 70-100 [facility] Comment on above: ADA recommended refe rence rangeRandom Glucose Reference Range is dependent on time and content of last meal. Glucose of more than 200 mg/dL in a nonstressed, ambulatory subject supports the diagnosis of Diabetes Mellitus. Result Comment: [place] om Glucose Reference Range is dependent on time and content of last meal. Glucose of more than 200 mg/dL in a nonstressed, ambulatory subject supports the diagnosis of Diabetes Mellitus. ADA recommended reference range Performed By: #### C BC, CMP, ETOH #### [address] HCG ( test) IA.rapi d Ql (U)Ordered By: Jose Silverman on 10-02-2022 HCG ( test) Ql (U) Negative [facility] HCG,Urineon 10-02-2022 Beta HCG ( test) Ql (U) Negative Normal [facility] Comment on above: Order Comment: Name Collection Type:: Clean-Voided Midstream Result Comment: PERF ORMED BY: [place] [id number] PATHOLOGIST SHUTTLE SPOTTER ASHELY CAREY M.D. Performed By: #### U RDS, ADDONUAPLUS, CUU, UHCG #### [place] [id number] [facility] Hematocrit [Volume Fraction] of Blood by Automated countOrdered By: Jose Silverman on 10-02-2022 Hematocrit (Bld) [Volume fraction] 41.7 % Normal 34.0-46.4 [facility] Comment on above: Performed By: #### C BC, CMP, ETOH #### [address] [place] [address] [place] Hemoglobin [Mass/volume] in BloodOrdered By: Jose Silverman on 10-02-2022 Hemoglobin (Bld) [Mass/Vol] 13.3 g/dL Normal 11.8-15.4 [facility] Comment on above: Performed By: #### C BC, CMP, ETOH #### [address] Ketones Auto test strip (U) [Mass/Vol]Ordered By: Jose Silverman on 10-02-2022 Ketones (U) [Mass/Vol] Negative Negative [facility] - UrinalysisOrder ed By: Jose Silverman on 10-02-2022 Hyaline casts LM Ql (Urine sed) 0-8 [LPF] 0-8 [facility] Leukocytes [#/volume] correc ruby for nucleated erythrocytes in Blood by Automated counOrdered By: Jose Silverman on 10-02-2022 WBC corrected for nucl RBC Auto (Bld) [#/Vol] 12.9 10*3/uL 3.8-11.6 [facility] Leukocytes [#/volume] in Blo od by Automated countOrdered By: Jose Silverman on 10-02-2022 WBC (Bld) [#/Vol] 12.9 10*3/uL High 3.8-11.6 [facility] Comment on above: Performed By: #### C BC, CMP, ETOH #### [address] Lymphocytes [#/volume] in Bl ood by Automated countOrdered By: Jose Silverman on 10-02-2022 Lymphocytes (Bld) [#/Vol] 3.0 10*3/uL Normal 1.00-4.8 [facility] Comment on above: Performed By: #### C BC, CMP, ETOH #### [place] [address] [place] Lymphocytes/100 leukocytes i n Blood by Automated countOrdered By: Jose Silverman on 10-02-2022 Lymphocytes/100 WBC (Bld) 23.1 % Normal . [facility] Comment on above: Performed By: #### C BC, CMP, ETOH #### [facility] [address] MCH [Entitic mass] by Automa ruby countOrdered By: Jose Silverman on 10-02-2022 MCH (RBC) [Entitic mass] 25.2 pg Normal 24.7-34.3 [facility] Comment on above: Performed By: #### C BC, CMP, ETOH #### [facility] [address] [place] [address] MCHC Auto (RBC) [Mass/Vol]Or dered By: Jose Silverman on 10-02-2022 MCHC (RBC) [Mass/Vol] 32.0 g/dL 32.0-35.0 [facility] MCV [Entitic volume] by Auto mated countOrdered By: Jose Silverman on 10-02-2022 MCV (RBC) [Entitic vol] 78.5 fL Low 80-100 [facility] Comment on above: Performed By: #### C BC, CMP, ETOH #### [address] Monocyte distribution width [Entitic volume] in Blood by AutomatedOrdered By: Jose Silverman on 10-02-2022 Monocyte distribution width Auto (Bld) [Entitic vol] 17.72 % 0.00-20.00 [facility] Neutrophils [#/volume] in Bl ood by Automated countOrdered By: Jose Silverman on 10-02-2022 Neutrophils (Bld) [#/Vol] 8.9 10*3/uL High 1.8-7.7 [facility] Comment on above: Performed By: #### C BC, CMP, ETOH #### [address] Nitrite Test strip Ql (U)Ord ered By: Jose Silverman on 10-02-2022 Nitrite Ql (U) Negative Negative [facility] No Panel InformationOrdered By: Jose Silverman on 10-02-2022 Estimated GFR (CKD-EPI) > 60.0 mL/Min [facility] Creatinine Clearance (Chem 107.48 [facility] Nucleated erythrocytes [Pres ence] in Blood by Automated countOrdered By: Jose Silverman on 10-02-2022 Nucleated RBC Auto Ql (Bld) 0.0 /100{WBC} 0-0.5 [facility] Opiates [Presence] in Urine by Screen methodOrdered By: Jose Silverman on 10-02-2022 Opiates Screen Ql (U) Negative Negative [facility] Phencyclidine Screen Ql (U)O rdered By: Jose Silverman on 10-02-2022 Phencyclidine Ql (U) Negative Negative [facility] Platelet mean volume [Entiti c volume] in Blood by Automated countOrdered By: Jose Silverman on 10-02-2022 Platelet mean volume (Bld) [Entitic vol] 7.7 fL Normal 6.3-10.7 [facility] Comment on above: Performed By: #### C BC, CMP, ETOH #### [address] Platelets [#/volume] in Bloo d by Automated countOrdered By: Jose Silverman on 10-02-2022 Platelets (Bld) [#/Vol] 342 10*3/uL Normal 150-450 [facility] Comment on above: Performed By: #### C BC, CMP, ETOH #### [facility] [address] [place] [address] Potassium [Moles/volume] in Serum or PlasmaOrdered By: Jose Silverman on 10-02-2022 Potassium [Moles/Vol] 3.8 mmol/L Normal 3.5-5.1 [facility] Comment on above: Performed By: #### C BC, CMP, ETOH #### [address] Protein Auto test strip (U) [Mass/Vol]Ordered By: Jose Silverman on 10-02-2022 Protein (U) [Mass/Vol] Negative Negative [facility] Protein [Mass/volume] in Ser um or PlasmaOrdered By: Jose Silverman on 10-02-2022 Protein [Mass/Vol] 8.7 g/dL Normal 6.4-8.9 [facility] Comment on above: Performed By: #### C BC, CMP, ETOH #### [address] Serum globulin measurement b y calculation (mass/volume)Ordered By: Jose Silverman on 10-02-2022 Globulin (S) [Mass/Vol] 3.7 g/dL Normal F [facility] Comment on above: Performed By: #### C BC, CMP, ETOH #### [address] Serum or plasma albumin/glob ulin mass ratioOrdered By: Jose Silverman on 10-02-2022 Albumin/Globulin [Mass ratio] 1.4 {ratio} Normal [facility] Comment on above: Performed By: #### C BC, CMP, ETOH #### [address] Serum or plasma anion gap de terminationOrdered By: Jose Silverman on 10-02-2022 Anion gap [Moles/Vol] 12.6 mmol/L Normal 6.0-15.0 [facility] Comment on above: Performed By: #### C BC, CMP, ETOH #### [address] Sodium [Moles/volume] in Ser um or PlasmaOrdered By: Jose Silverman on 10-02-2022 Sodium [Moles/Vol] 137 mmol/L Normal 136-145 [facility] Comment on above: Performed By: #### C BC, CMP, ETOH #### [address] Specific gravity Auto test s trip (U) [Rel density]Ordered By: Jose Silverman on 10-02-2022 Specific gravity (U) [Rel density] 1.021 1.001-1.030 [facility] Squamous epithelial cells de tection in urine sediment by light microscopyOrdered By: Jose Silverman on 10-02-2022 Epithelial cells.squamous LM Ql (Urine sed) 10-19 [HPF] 0-2 [facility] Urea nitrogen [Mass/volume] in Serum or PlasmaOrdered By: Jose Silverman on 10-02-2022 Urea nitrogen [Mass/Vol] 18 mg/dL Normal 7-25 [facility] Comment on above: Performed By: #### C BC, CMP, ETOH #### [facility] [address] [place] [id number] [place] Urine Cultureon 10-02-2022 Bacteria identified Cx Nom (U) ORGANISM: Strep agalactiae - (group b) (O:STRAGA) Howard Count 50,000 PERFORMED BY: [place] [id number] PATHOLOGIST SHUTTLE SPOTTER ASHELY CAREY M.D. Normal [facility] Comment on above: Performed By: #### U RDS, ADDONUAPLUS, CUU, UHCG #### [facility] [address] Urine bacteria detection by automated methodOrdered By: Jose Silverman on 10-02-2022 Bacteria Auto Ql (U) 2+ None Seen [facility] Urine clarity by refractomet ry automatedOrdered By: Jose Silverman on 10-02-2022 Clarity Refractometry automated (U) Clear Clear [facility] Urine glucose measurement by automated test strip (mass/volume)Ordered By: Jose Silverman on 10-02-2022 Glucose Auto test strip (U) [Mass/Vol] Normal mg/dL Normal [facility] Urine hemoglobin detection b y automated test stripOrdered By: Jose Silverman on 10-02-2022 Hemoglobin Auto test strip Ql (U) Negative Negative [facility] Urine leukocyte esterase det ection by automated test stripOrdered By: Jose Silverman on 10-02-2022 Leukocyte esterase Auto test strip Ql (U) 3+ Negative [facility] Urobilinogen Auto test strip (U) [Mass/Vol]Ordered By: Jose Silverman on 10-02-2022 Urobilinogen (U) [Mass/Vol] Normal mg/dL Normal [facility] pH Auto test strip (U)Ordere d By: Jose Silverman on 10-02-2022 pH (U) 6.5 [pH] 5.0-9.0 [facility] Quick Strepon 09-25-2022 S. pyogenes Org specific cx Ql (Throat) Negative [facility] Other Quick Strep [facility] Other CHEMISTRYOrdered By: SYSTEM SYSTEM on 09-06-2022 Anion gap [Moles/Vol] 10 mmol/L Normal 6 - 16 mEq/L F [facility] Remisol Calcium [Mass/Vol] 9.2 mg/dL Normal 8.9 - 11. 1 mg/dL [facility] Chloride [Moles/Vol] 104 mmol/L Normal 101 - 1 11 mmol/L [facility] CO2 [Moles/Vol] 27 mmol/L Normal 21 - 31 mmol/L [facility] Creatinine [Mass/Vol] 0.7 mg/dL Normal 0.5 - 1.3 mg/dL [facility] GFR/1.73 sq M.predicted among blacks MDRD (S/P/Bld) [Vol rate/Area] mL/min/1.73 m2 Normal >=59mL/min/1 .73 m2 [facility] [place] S GFR/1.73 sq M.predicted among non-blacks MDRD (S/P/Bld) [Vol rate/Area] mL/min/1.73 m2 Normal >=59mL/min/1 .73 m2 [facility] [place] Chem S Glucose [Mass/Vol] [...] 8.8 E9/L Normal 4.0 - 11.0 E9/L [facility] [place] HemeAutoSS SEROLOGYOrdered By: Janelle Burroughs on 09-06-2022 HCG.beta subunit (U) [Moles/Vol] Positive (09/06/22 11:19 AM) Normal [facility] [place] Man Sero URINALYSISOrdered By: Marlo Burroughs on [...] AM) Normal Negative [facility] UA Auto SS [place].plasma/[place].R BC (Bld) [Mass ratio] >30 /HPF Invalid [...] [facility] UA Auto SS Urobilinogen Qn (U) 0.5223048 {Georgina'U}/dL Normal 0.0 - 1.0 EU/dL [facility] Auto SS WBC Auto Ql (U) Negative (09/06/22 11:19 AM) Normal Negative [facility] UA Auto SS WBC LM.HPF (Urine sed) [#/Area] 0-5 /HPF Normal 0-5/HPF [facility] UA Auto SS BLOOD BANKOrdered By: John Montague on 08-14-2022 ABO/Rh Interp Positive Invalid Interpretation Code [facility] [place] BB Subsection CHEMISTRYOrdered By: [...] rate/Area] mL/min/1.73 m2 Normal >=59mL/min/1 .73 m2 [facility] [place] Chem S Globulin (S) [...] PM) Normal Negative [facility] UA Auto SS [place].plasma/[place].R BC (Bld) [Mass ratio] 0-3 /HPF Normal [...] [facility] UA Auto SS Urobilinogen Qn (U) 0.5239706 {Georgina'U}/dL Normal 0.0 - 1.0 EU/dL [facility] UA Auto SS WBC Auto Ql (U) Negative (08/14/22 7:29 PM) Normal Negative [facility] UA Auto SS WBC LM.HPF (Urine sed) [#/Area] 0-5 /HPF Normal 0-5/HPF [facility] [place] UA Auto SS CHLAMYDIA/GONOCOCCUS ALFREDO (SW AB/URINE/PAPon 07-15-2022 Chlamydia trachomatis, ALFREDO Negative Normal Negative [facility] Comment on above: Performed By: #### C T/NGNA #### [facility] [address] [place] [address] Dr. Cyril Hendricks Neisseria gonorrhoeae, ALFREDO Negative Normal Negative [facility] Comment on above: Performed By: #### C T/NGNA #### [facility] [address] [place] [address] [address] Cyril Hendricks VAGINITIS/VAGINOSIS DNA PROB Maurice 07-13-2022 Krista species Negative Normal Negative [facility] Comment on above: Performed By: #### U MICRO, UACSIND #### [facility] [address] [place] [address] Dr. Cyril Hendricks Gardnerella vaginalis Positive Abnormal Negative [facility] Comment on above: Performed By: #### U MICRO, UACSIND #### [facility] [address] [place] [address] [address] Cyril Hendricks Trichomonas vaginalis Negative Normal Negative [facility] Comment on above: Performed By: #### U MICRO, UACSIND #### [facility] [address] [place] [address] Dr. Cyril Hendricks COVID/FLU RT-PCRon SARS-CoV-2 (COVID-19) RNA ALFREDO+probe Ql (Unsp spec) Negative [facility] Other COVID/FLU RT-PCR Negative [facility] Other Quick Strepon 06-24-2022 S. pyogenes Org specific cx Ql (Throat) Negative [facility] Other Quick Strep [facility] Other CBC AUTO DIFFon 01-08-2022 BASO # 0.1 103/ul Normal 0.0-0.1 [facility] Comment on above: Performed By: #### C BC #### [facility] [address] [place] [address] Dr. Cyril Hendricks Basophils/100 WBC (Bld) 0.4 % Normal 0.2-2.0 [facility] Comment on above: Performed By: #### C BC #### [facility] [address] [place] [address] Dr. Cyril Hendricks EO # 0.1 103/ul Normal 0.0-0.7 [facility] Comment on above: Performed By: #### C BC #### [facility] [address] [place] [address] Dr. Cyril Hendricks Eosinophils/100 WBC (Bld) 0.9 % Normal 0.9-7.0 [facility] Comment on above: Performed By: #### C BC #### [facility] [address] [place] [address] Dr. Cyril Hendricks Erythrocyte distribution width (RBC) [Ratio] 12.3 % Normal 11.0-15.0 [facility] Comment on above: Performed By: #### C BC #### [facility] [address] [place] [address] Dr. Cyril Hendricks Hematocrit (Bld) [Volume fraction] 30.0 % Critically low 36.0-48.0 [facility] Comment on above: Performed By: #### C BC #### [facility] [address] [place] [address] Dr. Cyril Hendricks Hemoglobin (Bld) [Mass/Vol] 10.2 g/dL Critically low 12.0-16.0 [facility] Comment on above: Performed By: #### C BC #### [facility] [address] [place] [address] Dr. Cyril Hendricks IG # 0.05 10e3/ul Critically high 0.00-0.03 [facility] Comment on above: Performed By: #### C BC #### [facility] [address] [place] [address] Dr. Cyril Hendricks IG % 0.4 % Normal 0.0-0.5 [facility] Comment on above: Performed By: #### C BC #### [facility] [address] [place] [address] Dr. Cyril Hendricks LYMPH # 2.8 103/ul Normal 1.2-3.8 [facility] Comment on above: Performed By: #### C BC #### [facility] [address] [place] [address] Dr. Cyril Hendricks Lymphocytes/100 WBC (Bld) 19.7 % Critically low 20.5-60.0 [facility] Comment on above: Performed By: #### C BC #### [facility] [address] [place] [address] Dr. Cyril Hendricks MANUAL DIFF REQ NO Normal [facility] Comment on above: Performed By: #### C BC #### [facility] [address] [place] [address] Dr. Cyril Hendricks MCH (RBC) [Entitic mass] 30.6 pg Normal 26.7-34.0 [facility] Comment on above: Performed By: #### C BC #### [facility] [address] [place] [address] Dr. Cyril Hendricks MCHC (RBC) [Mass/Vol] 34.0 g/dL Normal 29.9-35.2 [facility] Comment on above: Performed By: #### C BC #### [facility] [address] [place] [address] Dr. Cyril Hendricks MCV (RBC) [Entitic vol] 90.1 fL Normal 81.0-99.0 [facility] Comment on above: Performed By: #### C BC #### [facility] [address] [place] [address] Dr. Cyril Hendricks MONO # 0.8 103/ul Normal 0.3-0.8 [facility] Comment on above: Performed By: #### C BC #### [facility] [address] [place] [address] Dr. Cyril Hendricks Monocytes/100 WBC (Bld) 5.9 % Normal 1.7-12.0 [facility] Comment on above: Performed By: #### C BC #### [facility] [address] [place] [address] Dr. Cyril Hendricks NEUT # 10.3 103/ul Critically high 1.4-6.5 [facility] Comment on above: Performed By: #### C BC #### [facility] [address] [place] [address] Dr. Cyril Hendricks Neutrophils/100 WBC (Bld) 72.7 % Normal 43.0-75.0 [facility] Comment on above: Performed By: #### C BC #### [facility] [address] [place] [address] Dr. Cyril Hendricks Platelet mean volume (Bld) [Entitic vol] 9.8 fL Normal 9.5-13.5 [facility] Comment on above: Performed By: #### C BC #### [facility] [address] [place] [address] Dr. Cyril Hendricks PLT 207 103/ul Normal 150-450 [facility] Comment on above: Performed By: #### C BC #### [facility] [address] [place] [address] Dr. Cyril Hendricks RBC 3.33 106/ul Critically low 4.20-5.40 [facility] Comment on above: Performed By: #### C BC #### [facility] [address] [place] [address] Dr. Cyril Hendricks WBC 14.2 103/ul Critically high 4.0-11.0 [facility] Comment on above: Performed By: #### C BC #### [facility] [address] [place] [address] Dr. Cyril Hendricks CBC AUTO DIFFon 01-07-2022 BASO # 0.1 103/ul Normal 0.0-0.1 [facility] Comment on above: Performed By: #### U MICRO UACSIND #### [facility] [address] [place] [address] Dr. Cyril Hendricks Basophils/100 WBC (Bld) 0.5 % Normal 0.2-2.0 [facility] Comment on above: Performed By: #### U MICRO UACSIND #### [facility] [address] [place] [address] [address] Cyril Hendricks EO # 0.1 103/ul Normal 0.0-0.7 [facility] Comment on above: Performed By: #### U MICRO, UACSIND #### [facility] [address] [place] [address] [address] Cyril Hendricks Eosinophils/100 WBC (Bld) 0.9 % Normal 0.9-7.0 [facility] Comment on above: Performed By: #### U MICRO, UACSIND #### [facility] [address] [place] [address] Dr. Cyril Hendricks Erythrocyte distribution width (RBC) [Ratio] 12.4 % Normal 11.0-15.0 [facility] Comment on above: Performed By: #### U MICRO, UACSIND #### [facility] [address] [place] [address] Dr. Cyril Hendricks Hematocrit (Bld) [Volume fraction] 34.3 % Critically low 36.0-48.0 [facility] Comment on above: Performed By: #### U MICRO, UACSIND #### [facility] [address] [place] [address] [address] Cyril Hendricks Hemoglobin (Bld) [Mass/Vol] 11.6 g/dL Critically low 12.0-16.0 [facility] Comment on above: Performed By: #### U MICRO, UACSIND #### [facility] [address] [place] [address] Dr. Cyril Hendricks IG # 0.06 10e3/ul Critically high 0.00-0.03 [facility] Comment on above: Performed By: #### U MICRO, UACSIND #### [facility] [address] [place] [address] Dr. Cyril Hendricks IG % 0.4 % Normal 0.0-0.5 [facility] Comment on above: Performed By: #### U MICRO, UACSIND #### [facility] [address] [place] [address] Dr. Cyril Hendricks LYMPH # 3.1 103/ul Normal 1.2-3.8 [facility] Comment on above: Performed By: #### U MICRO, UACSIND #### [facility] [address] [place] [address] Dr. Cyril Hendricks Lymphocytes/100 WBC (Bld) 20.4 % Critically low 20.5-60.0 [facility] Comment on above: Performed By: #### U MICRO, UACSIND #### [facility] [address] [place] [address] Dr. Cyril Hendricks MANUAL DIFF REQ NO Normal [facility] Comment on above: Performed By: #### U MICRO, UACSIND #### [facility] [address] [place] [address] Dr. Cyril Hendricks MCH (RBC) [Entitic mass] 30.6 pg Normal 26.7-34.0 [facility] Comment on above: Performed By: #### U MICRO, UACSIND #### [facility] [address] [place] [address] Dr. Cyril Hendricks MCHC (RBC) [Mass/Vol] 33.8 g/dL Normal 29.9-35.2 [facility] Comment on above: Performed By: #### U MICRO, UACSIND #### [facility] [address] [place] [address] Dr. Cyril Hendricks MCV (RBC) [Entitic vol] 90.5 fL Normal 81.0-99.0 [facility] Comment on above: Performed By: #### U MICRO, UACSIND #### [facility] [address] [place] [address] Dr. Cyril Hendricks MONO # 0.9 103/ul Critically high 0.3-0.8 [facility] Comment on above: Performed By: #### U MICRO, UACSIND #### [facility] [address] [place] [address] Dr. Cyril Hendricks Monocytes/100 WBC (Bld) 6.2 % Normal 1.7-12.0 [facility] Comment on above: Performed By: #### U MICRO, UACSIND #### [facility] [address] [address] [address] Cyril Hendricks NEUT # 10.9 103/ul Critically high 1.4-6.5 [facility] Comment on above: Performed By: #### U MICRO, UACSIND #### [facility] [address] [address] [address] Cyril Hendricks Neutrophils/100 WBC (Bld) 71.6 % Normal 43.0-75.0 [facility] Comment on above: Performed By: #### U MICRO, UACSIND #### [facility] [address] [address] [address] Cyril Hendricks Platelet mean volume (Bld) [Entitic vol] 11.1 fL Normal 9.5-13.5 [facility] Comment on above: Performed By: #### U MICRO, UACSIND #### [facility] [address] [place] [address] Dr. Cyril Hendricks PLT 240 103/ul Normal 150-450 [facility] Comment on above: Performed By: #### U MICRO, UACSIND #### [facility] [address] [address] [address] Cyril Hendricks RBC 3.79 106/ul Critically low 4.20-5.40 [facility] Comment on above: Performed By: #### U MICRO, UACSIND #### [facility] [address] [place] [address] Dr. Cyril Hendricks WBC 15.3 103/ul Critically high 4.0-11.0 [facility] Comment on above: Performed By: #### U MICRO, UACSIND #### [facility] [address] [place] [address] Dr. Cyril Hendricks [facility]on SARS-CoV-2 (COVID-19) RNA ALFREDO+probe Ql (Unsp spec) Not detected Normal NOT DETECTED [facility] Comment on above: Result Comment: [...] for this test is supported by the [place] of [employer] and Human Service's declaration that [...] used). Performed By: #### H CVPCRR #### [facility] [address] [place] [address] Dr. Cyril Hendricks DRUG SCREEN RAPID (URINE)on 01-07-2022 AMP Negative Normal NEGATIVE [facility] Comment on above: Performed By: #### U MICRO, UACSIND #### [facility] [address] [place] [address] Dr. Cyril Hendricks BAR Negative Normal NEGATIVE [facility] Comment on above: Performed By: #### U MICRO, UACSIND #### [facility] [address] [place] [address] Dr. Cyril Hendricks BUP Negative Normal NEGATIVE [facility] Comment on above: Performed By: #### U MICRO, UACSIND #### [facility] [address] [place] [address] Dr. Cyril Hendricks BZO Negative Normal NEGATIVE [facility] Comment on above: Performed By: #### U MICRO, UACSIND #### [facility] [address] [place] [address] Dr. Cyril Hendricks DARIN Negative Normal NEGATIVE [facility] Comment on above: Performed By: #### U MICRO, UACSIND #### [facility] [address] [place] [address] Dr. Cyril Hendricks CUT-OFFS SEE BELOW Normal [facility] Comment on above: Result Comment: AMP [...] Performed By: #### U MICRO, UACSIND #### [facility] [address] [place] [address] Dr. Cyril Hendricks DRUG CUT HEADER DRUG CLASS TEST SYSTEM CUT-OFF CONCENTRATIONS ARE FOLLOWS: Normal [facility] Comment on above: Performed By: #### U MICRO, UACSIND #### [facility] [address] [place] [address] Dr. Cyril Hendricks mAMP Negative Normal NEGATIVE [facility] Comment on above: Performed By: #### U MICRO, UACSIND #### [facility] [address] [place] [address] Dr. Cyril Hendricks MTD Negative Normal NEGATIVE [facility] Comment on above: Performed By: #### U MICRO, UACSIND #### [facility] [address] [place] [address] Dr. Cyril Hendricks OPI Negative Normal NEGATIVE [facility] Comment on above: Performed By: #### U MICRO, UACSIND #### [facility] [address] [place] [address] Dr. Cyril Hendricks OXY Negative Normal NEGATIVE [facility] Comment on above: Performed By: #### U MICRO, UACSIND #### [facility] [address] [place] [address] Dr. Cyril Hendricks PCP Negative Normal NEGATIVE [facility] Comment on above: Performed By: #### U MICRO, UACSIND #### [facility] [address] [place] [address] Dr. Cyril Hendricks PPX Negative Normal NEGATIVE [facility] Comment on above: Performed By: #### U MICRO, UACSIND #### [facility] [address] [place] [address] Dr. Cyril Hendricks TCA Negative Normal NEGATIVE [facility] Comment on above: Performed By: #### U MICRO, UACSIND #### [facility] [address] [place] [address] Dr. Cyril Hendricks THC Negative Normal NEGATIVE [facility] Comment on above: Performed By: #### U MICRO, UACSIND #### [facility] [address] [place] [address] Dr. Cyril Hendricks TYPE AND SCREENon 01-07-2022 TYPE AND SCREEN Negative Normal [facility] Comment on above: Performed By: #### H CVPCRR #### [facility] [address] [place] [address] Dr. Cyril Hendricks CULTURE URINEon 12-29-2021 CULTURE URINE Culture Observations: NO GROWTH. Normal [facility] Comment on above: Performed By: #### U RCX #### [facility] [address] [place] [address] Dr. Cyril Hendricks UA (CLEAN/CATCH) LOOM SETTER FOURDRINIER/MICRO I F IND.on 12-29-2021 Bilirubin Ql (U) Negative Normal NEGATIVE [facility] Comment on above: Performed By: #### U MICRO, UACSIND #### [facility] [address] [place] [address] Dr. Cyril Hendricks Clarity (U) SL CLOUDY Abnormal CLEAR [facility] Comment on above: Performed By: #### U MICRO, UACSIND #### [facility] [address] [place] [address] Dr. Cyril Hendricks Color (U) LT. YELLOW Normal YELLOW [facility] Comment on above: Performed By: #### U MICRO, UACSIND #### [facility] [address] [place] [address] Dr. Cyril Hendricks Glucose Ql (U) Negative Normal NEGATIVE [facility] Comment on above: Performed By: #### U MICRO, UACSIND #### [facility] [address] [place] [address] Dr. Cyril Hendricks Hemoglobin Ql (U) Negative Normal NEGATIVE [facility] Comment on above: Performed By: #### U MICRO, UACSIND #### [facility] [address] [address] [address] Cyril Hendricks Ketones Ql (U) Negative Normal NEGATIVE [facility] Comment on above: Performed By: #### U MICRO, UACSIND #### [facility] [address] [address] [address] Cyril Hendricks LEUKOCYTES LARGE Abnormal NEGATIVE [facility] Comment on above: Performed By: #### U MICRO, UACSIND #### [facility] [address] [address] [address] Cyril Hendricks Nitrite Ql (U) Negative Normal NEGATIVE [facility] Comment on above: Performed By: #### U MICRO, UACSIND #### [facility] [address] [place] [address] Dr. Cyril Hendricks pH (U) 6.5 [pH] Normal 5-9 [facility] Comment on above: Performed By: #### U MICRO, UACSIND #### [facility] [address] [address] [address] Cyril Hendricks SPEC GRAVITY 1.010 Normal 1.005-<=1.02 5 [facility] Comment on above: Performed By: #### U MICRO, UACSIND #### [facility] [address] [address] [address] Cyril Hendricks UA PROTEIN Negative Normal NEGATIVE/ TRACE [facility] Comment on above: Performed By: #### U MICRO, UACSIND #### [facility] [address] [address] [address] Cyril Hendricks UR MICRO IND INDICATED Normal [facility] Comment on above: Performed By: #### U MICRO, UACSIND #### [facility] [address] [address] [address] Cyril Hendricks Urobilinogen Qn (U) 0.2 {Georgina'U}/dL Normal 0.2 - 1. 0 [facility] Comment on above: Performed By: #### U MICRO, UACSIND #### [facility] [address] [address] [address] Cyril Hendricks URINE MICROSCOPIC ONLYon BACTERIA SMALL Abnormal NONE SEEN [facility] Comment on above: Performed By: #### U MICRO, UACSIND #### [facility] [address] [place] [address] Dr. Cyril Hendricks Bacteria identified Cx Nom (U) INDICATED Normal [facility] Comment on above: Performed By: #### U MICRO, UACSIND #### [facility] [address] [place] [address] Dr. Cyril Hendricks CAST NONE SEEN Normal NONE SEEN [facility] Comment on above: Performed By: #### U MICRO, UACSIND #### [facility] [address] [place] [address] Dr. Cyril Hendricks Crystals LM Nom (Urine sed) NONE SEEN Normal NONE SEEN [facility] Comment on above: Performed By: #### U MICRO, UACSIND #### [facility] [address] [place] [address] Dr. Cyril Hendricks Epithelial cells LM Ql (Urine sed) MANY Abnormal NONE SEEN /RARE [facility] Comment on above: Performed By: #### U MICRO, UACSIND #### [facility] [address] [place] [address] Dr. Cyril Hendricks MUCOUS NONE SEEN Normal NONE SEEN [facility] Comment on above: Performed By: #### U MICRO, UACSIND #### [facility] [address] [place] [address] Dr. Cyril Hendricks RBC 0-2 Normal 0-2 [facility] Comment on above: Performed By: #### U MICRO, UACSIND #### [facility] [address] [address] [address] Cyril Hendricks WBC 10-20 Abnormal NONE SEEN [facility] Comment on above: Performed By: #### U MICRO, UACSIND #### [facility] [address] [place] [address] Dr. Cyril Hendricks GROUP B STREP CULTUREon 12-07 S. agalactiae Ag Ql (Unsp spec) Culture Observations: NEGATIVE FOR GROUP B STREPTOCOCCUS. Normal [facility] Comment on above: Performed By: #### G BSCX #### [facility] [address] [address] [address] Cyril Hendricks SSAon 12-13-2021 SSA <0.3 Normal <7.0 [facility] Comment on above: Result Comment: Reference Range: <7.0 Negative 7.0-10.0 Equivocal >10.0 Positive Performed By: #### S SARO, TSH, FT4, SSBLA #### [facility] [address] [place] [id number] Photographer Helper: Homer Hoffman MD SSBon 12-13-2021 SSB <0.3 Normal <7.0 [facility] Comment on above: Result Comment: Reference Range: <7.0 Negative 7.0-10.0 Equivocal >10.0 Positive Performed By: #### S SARO, TSH, FT4, SSBLA #### [facility] [address] [place] [address] [phone] Photographer Helper: Homer Hoffman MD No Panel Informationon 12-12 [facility] T4, Freeon 12-12-2021 Thyroxine, Free 0.98 ng/dL 0.93 - 1.70 ng/dL [facility] TSHon 12-12-2021 TSH Qn 4.35 m[IU]/L [facility] Thyroid Stim. Horm.on 2021 Thyroid Stim. Horm. 4.35 uIU/mL Normal 0.30-5.00 [facility] Comment on above: Performed By: #### S SARO, TSH, FT4, SSBLA #### [facility] [address] [place] [id number] Photographer Helper: Homer Hoffman MD Thyroxine, Freeon 12-12-2021 Thyroxine, Free 0.98 ng/dL Normal 0.93-1.70 [facility] Comment on above: Performed By: #### S SARO, TSH, FT4, SSBLA #### [facility] [address] [place] [address] Photographer Helper: Homer Hoffman MD US PREG BIOPHY W [...] by: SOFIA KABA Date: 2021-11-27 13:55 Normal [facility] COVID + FLU Quick Testingon 11-13-2021 SARS-CoV-2 (COVID-19) RNA ALFREDO+probe Ql (Unsp spec) Negative [facility] Handpressions Other COVID + FLU Quick Testing Negative [facility] [employer]press[employer] Other GLUCOSE - 1HRon 10-23-2021 Glucose [Mass/Vol] 83 mg/dL Normal 74-106 [facility] Comment on above: Performed By: #### G LU1HR #### [facility] [address] [place] [address] Dr. Cyril Hendricks CHLAMYDIA/GONOCOCCUS ALFREDO (SW AB/URINE/PAPon 10-05-2021 Chlamydia trachomatis, ALFREDO Negative Normal Negative [facility] Comment on above: Performed By: #### C T/NGNA #### [facility] [address] [address] [address] Cyril Hendricks Neisseria gonorrhoeae, ALFREDO Negative Normal Negative [facility] Comment on above: Performed By: #### C T/NGNA #### [facility] [address] [place] [address] Dr. Cyril Hendricks VAGINITIS/VAGINOSIS DNA PROB Maurice 10-04-2021 Krista species Positive Abnormal Negative [facility] Comment on above: Performed By: #### H CVPCRR #### [facility] [address] [address] [address] Cyril Hendricks Gardnerella vaginalis Negative Normal Negative [facility] Comment on above: Performed By: #### H CVPCRR #### [facility] [address] [address] [address] Cyril Hendricks Trichomonas vaginalis Negative Normal Negative [facility] Comment on above: Performed By: #### H CVPCRR #### [facility] [address] [address] [address] Cyril Hendricks HEP B SURFACE ANTIGEN SCREEN on 10-03-2021 HBsAg Screen Negative Normal Negative [facility] Comment on above: Performed By: #### H CVPCRR #### [facility] [address] [place] [address] Dr. Cyril Hendricks HEPATITIS C VIRUS AB W/ REFL EX QUANTon 10-03-2021 HCV AB <0.1 Normal 0.0-0.9 [facility] Comment on above: Performed By: #### H CVPCRR #### [facility] [address] [place] [address] Dr. Cyril Hendricks Interpretation: Comment Normal [facility] Comment on above: Result Comment: Nega tive Not infected with HCV, unless recent infection is suspected or other evidence exists to indicate HCV infection. Performed By: #### H CVPCRR #### [facility] [address] [place] [address] Dr. Cyril Hendricks HIV 1 AND 2 WITH REFLEXon HIV Screen 4th Generation wRfx Non-Reactive Normal Non Reactive [facility] Comment on above: Result Comment: HIV Negative HIV-1/HIV-2 antibodies and HIV-1 p24 antigen were NOT detected. There is no laboratory evidence of HIV infection. Performed By: #### H IV12 #### [facility] [address] [place] [address] Dr. Cyril Hendricks RPR QUANTon 10-03-2021 Rapid Plasma Reagin, Quant Non-Reactive Normal NonRea<1:1 [facility] Comment on above: Result Comment: Plea se Note: This test does not meet current guidelines for screening and diagnosis of syphilis. This test is intended for following treatment response in patients being treated for syphilis infection. To screen for syphilis infection, a reflex cascade that includes both RPR and a treponema-specific assay should be utilized, such as Treponema pallidum (Syphilis) Screening [place] (536079) or Rapid Plasma Reagin (RPR) Test With Reflex to Quantitative RPR and Confirmatory Treponema pallidum Antibodies (256302). Performed By: #### U MICRO, UACSIND #### [facility] [address] [place] [address] Dr. Cyril Hendricks RUBELLA AB IGGon 10-03-2021 Rubella Antibodies, IgG <0.90 Critically low Immune > 0.99 [facility] Comment on above: Result Comment: Non- immune <0.90 Equivocal 0.90 - 0.99 Immune >0.99 Performed By: #### U MICRO, UACSIND #### [facility] [address] [place] [address] Dr. Cyril Hendricks CBC AUTO DIFFon 10-02-2021 BASO # 0.1 103/ul Normal 0.0-0.1 [facility] Comment on above: Performed By: #### U MICRO, UACSIND #### [facility] [address] [place] [address] Dr. Cyril Hendricks Basophils/100 WBC (Bld) 0.4 % Normal 0.2-2.0 [facility] Comment on above: Performed By: #### U MICRO, UACSIND #### [facility] [address] [place] [address] Dr. Cyril Hendricks EO # 0.1 103/ul Normal 0.0-0.7 [facility] Comment on above: Performed By: #### U MICRO, UACSIND #### [facility] [address] [place] [address] Dr. Cyril Hendricks Eosinophils/100 WBC (Bld) 1.1 % Normal 0.9-7.0 [facility] Comment on above: Performed By: #### U MICRO, UACSIND #### [facility] [address] [place] [address] Dr. Cyril Hendricks Erythrocyte distribution width (RBC) [Ratio] 13.5 % Normal 11.0-15.0 [facility] Comment on above: Performed By: #### U MICRO, UACSIND #### [facility] [address] [place] [address] Dr. Cyril Hendricks Hematocrit (Bld) [Volume fraction] 34.5 % Critically low 36.0-48.0 [facility] Comment on above: Performed By: #### U MICRO, UACSIND #### [facility] [address] [place] [address] Dr. Cyril Hendricks Hemoglobin (Bld) [Mass/Vol] 12.0 g/dL Normal 12.0-16.0 [facility] Comment on above: Performed By: #### U MICRO, UACSIND #### [facility] [address] [place] [address] Dr. Cyril Hendricks IG # 0.04 10e3/ul Critically high 0.00-0.03 [facility] Comment on above: Performed By: #### U MICRO, UACSIND #### [facility] [address] [place] [address] Dr. Cyril Hendricks IG % 0.3 % Normal 0.0-0.5 [facility] Comment on above: Performed By: #### U MICRO, UACSIND #### [facility] [address] [place] [address] Dr. Cyril Hendricks LYMPH # 2.6 103/ul Normal 1.2-3.8 [facility] Comment on above: Performed By: #### U MICRO, UACSIND #### [facility] [address] [place] [address] Dr. Cyril Hendricks Lymphocytes/100 WBC (Bld) 21.3 % Normal 20.5-60.0 [facility] Comment on above: Performed By: #### U MICRO, UACSIND #### [facility] [address] [place] [address] Dr. Cyril Hendricks MANUAL DIFF REQ NO Normal [facility] Comment on above: Performed By: #### U MICRO, UACSIND #### [facility] [address] [place] [address] Dr. Cyril Hendricks MCH (RBC) [Entitic mass] 32.5 pg Normal 26.7-34.0 [facility] Comment on above: Performed By: #### U MICRO, UACSIND #### [facility] [address] [place] [address] Dr. Cyril Hendricks MCHC (RBC) [Mass/Vol] 34.8 g/dL Normal 29.9-35.2 [facility] Comment on above: Performed By: #### U MICRO, UACSIND #### [facility] [address] [place] [address] Dr. Cyril Hendricks MCV (RBC) [Entitic vol] 93.5 fL Normal 81.0-99.0 [facility] Comment on above: Performed By: #### U MICRO, UACSIND #### [facility] [address] [place] [address] Dr. Cyril Hendricks MONO # 0.8 103/ul Normal 0.3-0.8 [facility] Comment on above: Performed By: #### U MICRO, UACSIND #### [facility] [address] [place] [address] Dr. Cyril Hendricks Monocytes/100 WBC (Bld) 6.2 % Normal 1.7-12.0 [facility] Comment on above: Performed By: #### U MICRO, UACSIND #### [facility] [address] [place] [address] Dr. Cyril Hendricks NEUT # 8.6 103/ul Critically high 1.4-6.5 [facility] Comment on above: Performed By: #### U MICRO, UACSIND #### [facility] [address] [place] [address] Dr. Cyril Hendricks Neutrophils/100 WBC (Bld) 70.7 % Normal 43.0-75.0 [facility] Comment on above: Performed By: #### U MICRO, UACSIND #### [facility] [address] [place] [address] Dr. Cyril Hendricks Platelet mean volume (Bld) [Entitic vol] 9.1 fL Critically low 9.5-13.5 [facility] Comment on above: Performed By: #### U MICRO, UACSIND #### [facility] [address] [address] [address] Cyril Hendricks PLT 257 103/ul Normal 150-450 [facility] Comment on above: Performed By: #### U MICRO, UACSIND #### [facility] [address] [address] [address] Cyril Hendricks RBC 3.69 106/ul Critically low 4.20-5.40 [facility] Comment on above: Performed By: #### U MICRO, UACSIND #### [facility] [address] [address] [address] Cyril Hendricks WBC 12.2 103/ul Critically high 4.0-11.0 [facility] Comment on above: Performed By: #### U MICRO, UACSIND #### [facility] [address] [address] [address] Cyril Hendricks CULTURE URINEon 10-02-2021 CULTURE URINE Culture Observations: MODERATE GROWTH OF MIXED GENITAL DRAGAN. NO POTENTIAL PATHOGENS SEEN. Normal [facility] Comment on above: Performed By: #### H CVPCRR #### [facility] [address] [address] [address] Cyril Hendricks GLYCOHEMOGLOBIN A1Con 2021 ADA RECOMMENDATION SEE BELOW Normal [facility] Comment on above: Result Comment: ADA RECOMMENDED LIMIT 4.0 - 6.0 ADA THERAPEUTIC TARGET < 7.0 ACTION SUGGESTED > 7.0 Performed By: #### H CVPCRR #### [facility] [address] [address] [address] Cyril Hendricks Glucose [Mass/Vol] 80 mg/dL Normal [facility] Comment on above: Performed By: #### H CVPCRR #### [facility] [address] [place] [address] Dr. Cyril Hendricks HbA1c (Bld) [Mass fraction] 4.4 % Critically low 4.5-6.2 [facility] Comment on above: Performed By: #### H CVPCRR #### [facility] [address] [address] [address] Cyril Hendricks TYPE AND SCREENon 10-02-2021 TYPE AND SCREEN Negative Normal [facility] Comment on above: Performed By: #### H CVPCRR #### [facility] [address] [place], [place] [address] Dr. Cyril Hendricks US PREG PLACENTAon 2 [...] SOFIA KABA Date: 2021-10-02 10:47 Normal [facility] US PREG ANATOMY SINGLEon US [...] (44% by ultrasound, 29% by expected) FL/AC: [id number] FL/BPD: 0.972496 HC/AC: 1.456877 GESTATIONAL AGE: Age by EDC: 21 weeks, 3 days NOY by EDC: 01/12/2022 Age by current US: 21 weeks, 1 day NOY by current US: 01/14/2022 IMPRESSION: 1. Single live intrauterine with growth detailed above. 2. Posterior, low-lying placenta. Electronically authenticated by: MARS FRANKEL Date: 2021-09-04 16:30 Normal [facility] Vital Signs Date Time Vital Sign Value Performing Clinician Facility 03-15-2024 12:04-0400 Body mass index (BMI) [Ratio] 29.5 kg/m2 Shabana WHITFIELD Work Phone: [facility] 03-15-2024 12:04-0400 Body weight 82.92 kg Shabana WHITFIELD Work Phone: [facility] 03-15-2024 12:04-0400 Diastolic blood pressure 70 mm[Hg] Shabana WHITFIELD Work Phone: [facility] 03-15-2024 12:04-0400 Systolic blood pressure 120 mm[Hg] Shabana WHITFIELD Work Phone: [facility] 02-03-2024 09:23-0400 Body temperature 97.88 [degF] Siva Schulte [facility] 02-03-2024 09:23-0400 Diastolic blood pressure 70 mm[Hg] Siva Schulte [facility] 02-03-2024 09:23-0400 Heart rate 85 /min Siva Schulte [facility] 02-03-2024 09:23-0400 Respiratory rate 18 /min Siva Schulte [facility] 02-03-2024 09:23-0400 SaO2% (BldA) [Mass fraction] 99 % Siva Schulte [facility] 02-03-2024 09:23-0400 Systolic blood pressure 106 mm[Hg] Siva Schulte [facility] 09-23-2023 09:16-0400 Body temperature 98.42 [degF] Wil Chandra [facility] 09-23-2023 09:16-0400 Diastolic blood pressure 68 mm[Hg] Wil Chandra [facility] 09-23-2023 09:16-0400 Heart rate 82 /min Wil Chandra [facility] 09-23-2023 09:16-0400 Respiratory rate 18 /min Wil Chandra [facility] 09-23-2023 09:16-0400 SaO2% (BldA) [Mass fraction] 97 % Wil Chandra [facility] 09-23-2023 09:16-0400 Systolic blood pressure 98 mm[Hg] Wil Chandra [facility] 08-27-2023 12:24-0400 Diastolic blood pressure 61 mm[Hg] [facility] 08-27-2023 12:24-0400 Heart rate 77 /min [facility] 08-27-2023 12:24-0400 Mean blood pressure 72 mm[Hg] [facility] 08-27-2023 12:24-0400 Respiratory rate 16 /min [facility] 08-27-2023 12:24-0400 SaO2% (BldA) [Mass fraction] 97 % [facility] 08-27-2023 12:24-0400 Systolic blood pressure 93 mm[Hg] [facility] 08-27-2023 11:30-0400 Diastolic blood pressure 69 mm[Hg] [facility] 08-27-2023 11:30-0400 Heart rate 74 /min [facility] 08-27-2023 11:30-0400 Mean blood pressure 82 mm[Hg] [facility] 08-27-2023 11:30-0400 Respiratory rate 16 /min [facility] 08-27-2023 11:30-0400 SaO2% (BldA) [Mass fraction] 99 % [facility] 08-27-2023 11:30-0400 Systolic blood pressure 107 mm[Hg] [facility] 08-27-2023 10:30-0400 Diastolic blood pressure 62 mm[Hg] [facility] 08-27-2023 10:30-0400 Heart rate 91 /min [facility] 08-27-2023 10:30-0400 Mean blood pressure 77 mm[Hg] [facility] 08-27-2023 10:30-0400 Respiratory rate 18 /min [facility] 08-27-2023 10:30-0400 SaO2% (BldA) [Mass fraction] 100 % [facility] 08-27-2023 10:30-0400 Systolic blood pressure 107 mm[Hg] [facility] 08-27-2023 09:41-0400 Body temperature 98.6 [degF] [facility] 08-27-2023 09:41-0400 Heart rate 80 /min [facility] 01-04-2023 00:03-0400 Body temperature 98.78 [degF] Siva Schulte [facility] 01-04-2023 00:03-0400 Diastolic blood pressure 54 mm[Hg] Siva Schulte [facility] 01-04-2023 00:03-0400 Heart rate 97 /min Siva Schulte [facility] 01-04-2023 00:03-0400 Mean blood pressure 70 mm[Hg] Siva Schulte [facility] 01-04-2023 00:03-0400 Respiratory rate 18 /min Siva Eris [facility] 01-04-2023 00:03-0400 SaO2% (BldA) [Mass fraction] 94 % Siva Eris [facility] 01-04-2023 00:03-0400 Systolic blood pressure 102 mm[Hg] Siva Eris [facility] 01-03-2023 23:00-0400 Body temperature 100.04 [degF] Siva Eris [facility] 01-03-2023 23:00-0400 Diastolic blood pressure 62 mm[Hg] Siva Eris [facility] 01-03-2023 23:00-0400 Heart rate 100 /min Siva Eris [facility] 01-03-2023 23:00-0400 Mean blood pressure 75 mm[Hg] Siva Eris [facility] 01-03-2023 23:00-0400 Systolic blood pressure 100 mm[Hg] Siva Eris [facility] 01-03-2023 22:42-0400 Body temperature 100.76 [degF] Siva Eris [facility] 01-03-2023 22:42-0400 Diastolic blood pressure 59 mm[Hg] Siva Eris [facility] 01-03-2023 22:42-0400 Heart rate 105 /min Siva Eris [facility] 01-03-2023 22:42-0400 Respiratory rate 20 /min Siva Eris [facility] 01-03-2023 22:42-0400 SaO2% (BldA) [Mass fraction] 99 % Siva Schulte [facility] 01-03-2023 22:42-0400 Systolic blood pressure 96 mm[Hg] Siva Schulte [facility] 10-02-2022 21:29-0400 Diastolic blood pressure 72 mm[Hg] PHYSICIAN NO [facility] 10-02-2022 21:29-0400 Heart rate 94 [...] Body height 170.18 cm Viet Welch Other [facility] 09-25-2022 13:25-0400 Body mass index (BMI) [Ratio] 26.62 kg/m2 Viet Welch Other [facility] Other 09-25-2022 13:25-0400 Body temperature 98.2 [degF] Viet Welch Other [facility] Other 09-25-2022 13:25-0400 Body weight 77.11 kg Viet Welch Other [facility] Other 04-19-2023 13:25-0400 Diastolic blood pressure 68 mm[Hg] Viet Welch Other [facility] Other 09-25-2022 13:25-0400 Respiratory rate 18 /min Viet Welch Other [facility] Other 09-25-2022 13:25-0400 SaO2% (BldA) [Mass fraction] 98 % Viet Welch Other [facility] Other 09-25-2022 13:25-0400 Systolic blood pressure 107 mm[Hg] Viet Welch Other [facility] Other 09-06-2022 13:54-0400 Diastolic blood pressure 72 mm[Hg] Wil Corazon [facility] 09-06-2022 13:54-0400 Heart rate 60 /min Wil Corazon [facility] 09-06-2022 13:54-0400 Respiratory rate 16 /min Wil Corazon [facility] 09-06-2022 13:54-0400 SaO2% (BldA) [Mass fraction] 100 % Wil Corazon [facility] 09-06-2022 13:54-0400 Systolic blood pressure 103 mm[Hg] Wil Corazon [facility] 09-06-2022 11:41-0400 Diastolic blood pressure 65 mm[Hg] Wil Corazon [facility] 09-06-2022 11:41-0400 Heart rate 58 /min Wil Corazon [facility] 09-06-2022 11:41-0400 Mean blood pressure 77 mm[Hg] Wil Corazon [facility] 09-06-2022 11:41-0400 Respiratory rate 16 /min Wil Chandra [facility] 09-06-2022 11:41-0400 SaO2% (BldA) [Mass fraction] 100 % Wil Chandra [facility] 09-06-2022 11:41-0400 Systolic blood pressure 102 mm[Hg] Wil Chandra [facility] 09-06-2022 10:42-0400 Body temperature 98.24 [degF] Wil Chandra [facility] 09-06-2022 10:42-0400 bodymassindex 1.17 Wil Chandra [facility] Comment on above: Result Comment: ^~:!ZScore [facility] 09-06-2022 10:42-0400 Diastolic blood pressure 71 mm[Hg] Wil Chandra [facility] 09-06-2022 10:42-0400 Heart rate 73 /min Wil Chandra [facility] 09-06-2022 10:42-0400 Height/Length Percentile 84.89 Wil Chandra [facility] Comment on above: Result Comment: ^~:!Percentile Source -[facility] 09-06-2022 10:42-0400 Height/Length Z-Score 1.03 Wil Chandra [facility] Comment on above: Result Comment: ^~:!ZScore [facility] 09-06-2022 10:42-0400 Respiratory rate 16 /min Wil Chandra [facility] 09-06-2022 10:42-0400 SaO2% (BldA) [Mass fraction] 98 % Wil Chandra [facility] 09-06-2022 10:42-0400 Systolic blood pressure 111 mm[Hg] Wil Chandra [facility] 09-06-2022 10:42-0400 weight 1.47 Wil Chandra [facility] Comment on above: Result Comment: ^~:!ZScore Source [facility] 09-06-2022 10:42-0400 Weight Percentile 92.90 % Wil Chandra [facility] Comment on above: Result Comment: ^~:!Percentile Source -[facility] 08-14-2022 21:30-0500 Diastolic blood pressure 79 mm[Hg] Bob Llanos [facility] 08-14-2022 21:30-0500 Heart rate 87 /min Bob Llanos [facility] 08-14-2022 21:30-0500 Mean blood pressure 93 mm[Hg] Bob Llanos [facility] 08-14-2022 21:30-0500 Nursing Progress Note Reason Other: pt to US via stretcher at this time. Bob Llanos [facility] 08-14-2022 21:30-0500 Respiratory rate 16 /min Bob Llanos [facility] 08-14-2022 21:30-0500 SaO2% (BldA) [Mass fraction] 100 % Bob Llanos [facility] 08-14-2022 21:30-0500 Systolic blood pressure 120 mm[Hg] Bob Llanos [facility] 08-14-2022 19:20-0500 Body temperature 98.96 [degF] Bob Llanos [facility] 08-14-2022 19:20-0500 bodymassindex 1.17 Bob Llanos [facility] Comment on above: Result Comment: ^~:!ZScore [facility] 08-14-2022 19:20-0500 Diastolic blood pressure 61 mm[Hg] Bob Llanos [facility] 08-14-2022 19:20-0500 Heart rate 98 /min Bob Llanos [facility] 08-14-2022 19:20-0500 Height/Length Percentile 84.91 Bob Llanos [facility] Comment on above: Result Comment: ^~:!Percentile Source -[facility] 08-14-2022 19:20-0500 Height/Length Z-Score 1.03 Bob Llanos [facility] Comment on above: Result Comment: [facility] 19:20-0500 Respiratory rate 16 /min Bob Llanos [facility] 08-14-2022 19:20-0500 SaO2% (BldA) [Mass fraction] 99 % Bob Llanos [facility] 08-14-2022 19:20-0500 Systolic blood pressure 114 mm[Hg] Bob Llanos [facility] 08-14-2022 19:20-0500 weight 1.47 Bob Llanos [facility] Comment on above: Result Comment: ^~:!ZScore [facility] 08-14-2022 19:20-0500 Weight Percentile 92.94 % Bob Llanos [facility] Comment on above: Result Comment: ^~:!Percentile Source -[facility] 06-24-2022 13:30-0500 Body height 170.18 cm Viet Welch Other [facility] [employer] Other 06-24-2022 13:30-0500 Body mass index (BMI) [Ratio] 26.62 kg/m2 Viet Welch Other [facility] Other 06-24-2022 13:30-0500 Body temperature 97.8 [degF] Viet Welch Other [facility] Other 06-24-2022 13:30-0500 Body weight 77.11 kg Viet Welch Other [facility] Other 06-24-2022 13:30-0500 Diastolic blood pressure 63 mm[Hg] Viet Welch Other [facility] Other 06-24-2022 13:30-0500 Respiratory rate 18 /min Viet Welch Other [facility] Other 06-24-2022 13:30-0500 SaO2% (BldA) [Mass fraction] 98 % Viet Welch Other [facility] Other 06-24-2022 13:30-0500 Systolic blood pressure 97 mm[Hg] Viet Welch Other [facility] Other 11-13-2021 14:05-0400 Body height 170.18 cm Michael Oneil Other [facility] Other 11-13-2021 14:05-0400 Body mass index (BMI) [Ratio] 26.62 kg/m2 Michael Oneil Other [facility] Other 11-13-2021 14:05-0400 Body temperature 98.4 [degF] Michael Oneil Other [facility] Other 11-13-2021 14:05-0400 Body weight 77.11 kg Michael Oneil Other [facility] Other 11-13-2021 14:05-0400 Respiratory rate 18 /min Michael Oneil Other [facility] Other 11-13-2021 14:05-0400 SaO2% (BldA) [Mass fraction] 98 % Michael Oneil Other [facility] Other 11-06-2021 15:45-0400 Body height Kendra Witt Other [facility] Other 11-06-2021 15:45-0400 Body mass index (BMI) [Ratio] 26.62 kg/m2 Kendra Witt Other [facility] Other 11-06-2021 15:45-0400 Body weight 77.11 kg Kendra Witt Other [facility] Other 11-06-2021 15:45-0400 Respiratory rate 20 /min Kendra Witt Other [facility] Other 11-06-2021 15:45-0400 SaO2% (BldA) [Mass fraction] 98 % Kendra Witt Other [facility] Other Encounters Encounter Date Encounter Type Care Provider Facility Start: 03-15-2024 End: 03-15-2024 Bamboo flowsheet Shabana WHITFIELD Work Phone: [facility] Start: 03-15-2024 End: 03-15-2024 Bamboo flowsheet Shabana WHITFIELD Work Phone: [facility] Start: 03-15-2024 End: 03-15-2024 ambulatory SHABANA CORRAL Not Available Start: 03-15-2024 End: 03-15-2024 Office outpatient visit 15 minutes Shabana WHITFIELD Work Phone: [facility] Comment on above: 35 weeks gestation o f ; Third trimester Start: 03-01-2024 End: 03-01-2024 ambulatory JUVENAL MIRI Not Available Start: 02-16-2024 End: 02-16-2024 ambulatory SHABANA CORRAL Not Available Start: 02-03-2024 End: 02-03-2024 Emergency department patient visit Siva Schulte [facility] Start: 01-26-2024 End: 01-26-2024 ambulatory JUVENAL MIRI Not Available Start: 12-29-2023 End: 12-29-2023 ambulatory SHABANA ELLIS Not Available Start: 12-22-2023 End: 12-22-2023 ambulatory JUVENAL [facility] Start: 12-01-2023 End: 12-01-2023 ambulatory JUVENAL MIRI Not Available Start: 11-10-2023 End: 11-10-2023 ambulatory JUVENAL R [facility] Start: 10-27-2023 End: 10-27-2023 ambulatory SHABANA CORRAL Not Available Start: 09-29-2023 End: 09-29-2023 ambulatory JUVENAL MIRI Not Available Start: 09-23-2023 End: 09-23-2023 Emergency department patient visit Wil Chandra [facility] Start: 09-04-2023 End: 09-04-2023 ambulatory JUVENAL MIRI Not Available Start: 08-27-2023 End: 08-27-2023 Emergency department patient visit Emily Harper [facility] Start: 08-18-2023 End: 08-18-2023 ambulatory SELAM HUNTER [place] Start: 01-03-2023 End: 01-04-2023 Emergency department patient visit Siva Schulte [facility] Start: 12-12-2022 End: 12-12-2022 ambulatory Kenneth Mills Other [facility] Other Start: 12-12-2022 Telephone encounter Kenneth Mills [facility] Start: 10-02-2022 End: 10-02-2022 Emergency department patient visit Jose Silverman Facility:[facility] Start: 10-02-2022 End: 10-02-2022 Emergency department patient visit PHYSICIAN [facility] Work Phone: Start: 09-25-2022 End: 09-25-2022 ambulatory Viet Yuri Other [facility] Other Start: 09-25-2022 Office outpatient visit 15 minutes Viet Yuri [facility] Start: 09-06-2022 End: 09-06-2022 Emergency department patient visit Wil Chandra [facility] Start: 08-14-2022 End: 08-14-2022 Emergency department patient visit Bob Llanos [facility] Start: 07-11-2022 End: 07-11-2022 ambulatory ROSEANN CORRAL Facility:[facility] Start: 06-24-2022 End: 06-24-2022 ambulatory Viet Welch Other [facility] Other Start: 06-24-2022 Office outpatient visit 15 minutes Viet [place] [facility] Start: 01-11-2022 End: 01-11-2022 ambulatory NONE LISTED REQUEST Facility:[facility] Start: 01-07-2022 End: 01-09-2022 Evaluation and management of inpatient DR RENATA GEORGES Facility:[facility] Start: 12-29-2021 End: 12-29-[address] JUVENAL THORPE Facility:[facility] Start: 12-19-2021 End: 12-19-[address] JUVENAL THORPE Facility:[facility] Start: 12-12-2021 End: 12-13-2021 ambulatory JUAQUIN CASTILLO [facility] Start: 12-12-2021 End: 12-12-2021 Subsequent hospital visit by physician [facility] Start: 11-27-2021 End: 11-27-[address] SOFIA KABA Facility:[facility] Start: 11-13-2021 End: 11-13-2021 ambulatory Michael Oneil Other [facility] Other Start: 11-13-2021 Office outpatient visit 15 minutes Michael Oneil [facility] [address] Start: 11-06-2021 End: 11-06-2021 ambulatory Kendra Witt Other [facility] Other Start: 11-06-2021 Office outpatient visit 25 minutes Kendra Witt [facility] Start: 10-23-2021 End: 10-24-[address] JUVENAL [...] AM EDT Routine [facility] [address] [place] [id number] Juvenal Thorpe, DO [address] [place] [address] [facility] Start: 03-22-2024 End: 03-22-2024 Patient encounter procedure 03/22/2024 11:10 AM EDT Routine [facility] [address] [place] [id number] Juvenal Thorpe, DO [address] [place] [address] [facility] Start: 10-02-2022 Bacteria identified in Urine by Culture Urine Culture [facility] Start: 02-07-2022 Influenza vaccination Flu vaccine (# 1) [facility] Start: 01-09-2022 End: 01-09-2022 Patient encounter procedure 01/09/2022 Routine Perinatology [facility] Start: 01-02-2022 End: 01-02-2022 Patient encounter procedure 01/02/2022 Routine Perinatology [facility] Start: 12-26-2021 End: 12-26-2021 Patient encounter procedure 12/26/2021 Routine Perinatology [facility] Start: 12-20-2021 End: 12-20-2021 Patient encounter procedure 12/20/2021 Routine Perinatology [facility] Start: 2021 DTaP/Tdap/Td vaccine (1 - Tdap) DTaP/Tdap/Td vaccine (1 - Tdap) [facility] Start: 2020 Hepatitis C screening Hepatitis C sc reen [facility] Start: 2018 Screening for Chlamy nazanin trachomatis Chlamydia screen [facility] Start: 2017 HIV screening HIV screen [facility] [employer] Start: 2014 Depression Monitoring Depression Mon itoring [facility] Start: 2013 HPV vaccine (1 - 2-d ose series) HPV vaccine (1 - 2-dose series) [facility] Start: 09-16-2007 COVID-19 Vaccine (1) COVID-19 Vaccin e (1) [facility] Start: 09-16-2003 Varicella vaccine (1 of 2 - 2-dose childhood series) Varicella vaccine (1 of 2 - 2-dose childhood series) [facility] Patient Education Depression, Adult ED [facility] Work Phone: Patient referral [facility] Work Phone: End: 12-12-2021 Sjogrens syndrome-A extractable nuclear antibody [facility] [email or web address] [facility] Work Phone: Comment on above: Once for 1 Occurrenc es starting 12/12/2021 until 12/12/2021 End: 12-12-2021 Sjogrens syndrome-B extractable nuclear antibody [facility] Work Phone: Comment on above: Once for 1 Occurrenc es starting 12/12/2021 until 12/12/2021 Immunizations Immunization Date Immunization Notes Care Provider Simona galarza NEGATED: Highlighted row has not occurred!11-05-2019 influenza, injectable, quadrivalent, contains preservative Kendra Witt Other [facility] Other NEGATED: Highlighted row has not occurred!04-10-2019 influenza virus vaccine, unspecified formulation Bob Llanos [facility] Payers Date Payer Category Payer Medicaid [employer] [place] [id number] 2023-Present [address] [place] [address] [id number] 2022 [facility] [id number] 2002 Unknown [id number] 2.16.840.1.874371.3.579.2.175 2002 Unknown [id number] 2.16.840.1.901052.3.579.2.593 2002 Unknown [id number] 2.16.840.1.136896.3.579.2.593 2002 Unknown [id number] 2.16.840.1.379946.3.579.2.593 2002 Unknown [id number] 2.16.840.1.525535.3.579.2.593 2002 Unknown [id number] 2.16.840.1.474999.3.579.2.593 2002 Unknown [id number] 2.16.840.1.396140.3.579.2.593 2002 Unknown [id number] 2.16.840.1.250829.3.579.2.593 2002 Unknown [id number] 2.16.840.1.845119.3.579.2.593 2002 Unknown [id number] 2.16.840.1.433156.3.579.2.593 2002 Unknown [id number] 2.16.840.1.998259.3.579.2.593 2002 Unknown [id number] 2.16.840.1.819133.3.579.2.593 2002 Unknown [id number] 2.16.840.1.034707.3.579.2.1286 2002 Unknown [id number] 2.16.840.1.400369.3.579.2.1286 2002 Unknown [id number] 2.16.840.1.573084.3.579.2.1286 2002 Unknown [id number] 2.16.840.1.772856.3.579.2.727 2002 Unknown [id number] 2.16.840.1.956294.3.579.2.727 2002 Unknown [id number] 2.16.840.1.332182.3.579.2.727 2002 Unknown [id number] 2.16.840.1.733127.3.579.2.727 2002 Unknown [id number] 2.16.840.1.170676.3.579.2.727 2002 Unknown [id number] 2.16.840.1.018375.3.579.2.9 2002 Unknown [id number] 2.16.840.1.192977.3.579.2.1258 2002 Unknown [id number] 2.16.840.1.140054.3.579.2.1258 2002 Unknown [id number] 2.16.840.1.757322.3.579.2.1258 2002 Unknown [id number] 2.16.840.1.458880.3.579.2.1258 2002 Unknown [id number] 2.16.840.1.092958.3.579.2.1258 2002 Unknown [id number] 2.16.840.1.366663.3.579.2.1258 2002 Unknown [id number] 2.16.840.1.856746.3.579.2.1258 2002 Unknown [id number] 2.16.840.1.162213.3.579.2.1259 1959 Unknown [id number] 2.16.840.1.779636.19 1959 Unknown [id number] Unknown [id number] 2.16.840.1.861595.3.579.2.531 Social History Date Type Detail Facility Sex Assigned At [facility] Start: 11-28-2021 Tobacco smoking status NHIS Never smoked tobacco [employer] Phone: Start: 11-28-2021 Tobacco use and exposure Smokeless tobacco non-user [employer] Phone: Start: 12-12-2021 Alcohol intake Ex-drinker (finding) [employer] Phone: Start: 12-12-2021 Tobacco Comment no longer vapes [employer] Phone: Start: 04-21-2021 [employer] Phone: Start: 2002 Sex Assigned At Not on file B ON [employer] Phone: Tobacco Current vaping o r e-cigarette use Smokeless Tobacco Use:. Vaping [facility] Tobacco smoking status No Smoking Status Entered [facility] Start: 10-02-2022 Tobacco smoking status NHIS Smoker (finding) [facility] Start: 2002 Sex Assigned At Female F [facility] Tobacco smoking status NHIS Tobacco smoking consumption unknown [facility] Start: 01-17-2023 Gender identity Identifies as female gender (finding) [facility] Healthcare Functional Status Date Assessment Result Facility 02-03-2024 Functional Status N/A [facility] 09-23-2023 Functional Status N/A [facility] 08-27-2023 Functional Status N/A [facility] 01-03-2023 Functional Status N/A [facility] 09-06-2022 Functional Status N/A [facility] 08-14-2022 Functional Status N/A [facility] Clinical Notes 11-06-2021 to 03-15-2024 ROSEANN Smith [...] nursing note reviewed. Exam conducted with a ornamenter present. Vitals: Estimated body mass index is [...] of: ROSEANN Smith documented in this encounter [facility] 02-03-2024 Evaluation + Plan note Extrac ruby from: Title:ED Note Author:Kiki CHUNG, Duc Torres te:02/03/24 Sore throat (J02.9: Acute ph aryngitis, unspecified) Viral URI (J06.9: Acute upper respiratory infection, unspecified) Orders: Group A Strep by PCR Rapid Strep w/rfx Diagnostic Tests Pending * Group A Strep by PCR 02/03/24 [facility] 08-27-2024 Hospital Discharge instructions Patient Education [...] medicines to help relieve symptoms, such as: Mrfr-run-shvnrzh cold medicines. Cough suppressants. Coughing is a [...] and other clear broths. General instructions Take fodr-mks-ltlbdus and prescription medicines only as told by [...] and water are not available, use hand applications analyst. Avoid touching your mouth, face, eyes, [...] Document Reviewed: 12/26/2021 Elsevier Patient Education 2022 Manufacturers' Inventory. Follow Up Care 02/03/2024 09:23:13 With:Juvenal THORPE Address: [address] [place] [address]- Business (1) When:02/06/2024 11:12:27 With:SELAM ANGELAULT Address: [address] [place] [address]- Business (1) When:02/06/2024 11:12:21 [facility] 08-27-2024 NoteED Patient Education Note Infectious [...] to help relieve symptoms, such as: ? Cjxh-ieb-btrznza cold medicines. ? Cough suppressants. Coughing is [...] other clear broths. General instructions ? Take ovbb-cuz-dkbgzxg and prescription medicines only as told by [...] soap and water are not available,use hand applications analyst. ? Avoid touching your mouth, face, [...] Mood. These symptoms m (more content not included)...[facility] 09-23-2023 Hospital Discharge instructions Patient [...] provider. Document Revised: 02/19/2021 Document Reviewed: 02/19/2021 [employer] Patient Education 2022 Manufacturers' Inventory. Follow Up Care 09/23/2023 09:11:45 With:Juvenal THORPE Address: [address] [place] [address] Business (1) When:09/26/2023 11:44:07 [facility]03-20-2024 Hospital Discharge instructions Patient Education 08/27/2023 [...] Document Reviewed: 01/09/2022 Elsevier Patient Education 2022 Manufacturers' Inventory. 08/27/2023 12:34:16 Urinary Tract Infection, Adult, Abvi-uq-Fwqe Urinary Tract Infection, Adult A urinary tract [...] Follow these instructions at home: Medicines Take wkyq-wkz-yjwiarr and prescription medicines only as told by [...] provider. Document Revised: 01/05/2021 Document Reviewed: 01/05/2021 [employer] Patient Education 2022 [employer] 08/27/2023 12:34:16 Subchorionic Hematoma Subchorionic Hematoma [...] provider. Document Revised: 02/19/2021 Document Reviewed: 02/19/2021 [employer] Patient Education 2022 Manufacturers' Inventory. Follow Up Care 08/27/2023 09:39:16 With:Juvenal THORPE Address: [facility] [address] , [place] [address]- Business (1) When:08/30/2023 12:05:10 With:SELAM HUNTER Address: [facility] [place] [address] Business (1) When:Within 3 Day(s) [facility]03-20-2024 Evaluation + Plan noteExtracted from: Title:ED [...] day(s), # 28 cap(s), Refills(s) 0, Pharmacy: [id number], 170, cm, 08/27/23 9:49:00 EDT, Height/Length Dosing, 78.7, kg, 08/27/23 9:49:00 EDT, Weight Dosing ABO/Rh Basic Metabolic Panel Beta hCG Quantitative CBC w/ Auto Diff eGFR Extra Blue Tube Extra SST Tube UA with Cult Rflx Urine Culture US 1st Trimester US Transvaginal Diagnostic Tests Pending * Urine Culture 08/27/23 [facility]07-29-2023 Hospital Discharge instructions Patient Education 01/04/2023 00:13:01 Pharyngitis, Zoss-kr-Ghom Pharyngitis Pharyngitis is a sore throat (pharynx). [...] Follow these instructions at home: Medicines Take hnmc-uej-oycddfz and prescription medicines only as told by [...] and water are not available, use hand applications analyst. Do not touch your eyes, nose, [...] provider. Document Revised: 08/22/2021 Document Reviewed: 08/22/2021 [employer] Patient Education 2022 Manufacturers' Inventory. Follow Up Care 01/03/2023 22:32:55 With:Thony Carl Address: [address] [place] [address] [place] [address] Business (1) When:01/06/2023 Comments:Follow-up with your primary care provider in 3 to 5 days. If symptoms worsen, do not improve, or new symptoms arise please report back to emergency department for further evaluation. [facility]07-28-2023 Evaluation + Plan noteExtracted from: Title:ED [...] q12hr, # 20 cap(s), Refills(s) 0, Pharmacy: [facility], 170, cm, 01/03/23 22:44:00 EDT, Height/Length Dosing, 75.3, kg, 01/03/23 22:44:00 EDT, Weight Dosing ondansetron, 4 mg = 1 tab(s), Oral, q8hr, PRN Nausea/Vomiting, # 12 tab(s), Refills(s) 0, Pharmacy: [facility], 170, cm, 01/03/23 22:44:00 EDT, Height/Length Dosing, 75.3, kg, 01/03/23 22:44:00 EDT, Weight Dosing ondansetron, 12 mg = 3 tab(s), Tab-Dis, Oral, Once, Stop date 01/03/23 23:45:00 EDT, STAT, Start date 01/03/23 23:45:00 EDT, 01/03/23 23:45:00 EDT Automated Diff Basic Metabolic Panel Beta hCG Quantitative CBC w/ Auto Diff eGFR Hepatic Function Panel Lipase Level [facility]04-19-2023 Evaluation note* Encounter Date Diagnosis Assessment [...] of symptoms occur by end of treatment. [facility] Other [id number] Hospital Discharge instructions Patient Education 09/06/2022 13:56:20 [...] Follow these instructions at home: Medicines Take mmir-aiz-ennfklb and prescription medicines only as told by [...] important. Where to find more information [employer]: www.acog.org [place] [...] 11/19/2001 Document Revised: 09/17/2019 Document Reviewed: 07/01/2017 [employer] Patient Education 2019 Manufacturers' Inventory. Follow Up Care 09/06/2022 10:42:16 With:Juvenal THORPE Address: [address] [place] [address] Business (1) When:09/09/2022 13:46:05 [facility]03-09-2023 Hospital Discharge instructions Patient Education 08/14/2022 22:12:46 Abdominal Pain During , Pnve-ed-Fhey Abdominal Pain During Belly (abdominal) pain is [...] keep your pee (urine) pale yellow. Take ihqd-ubj-hokmibj and prescription medicines only as told by [...] 05/14/2010 Document Revised: 09/13/2019 Document Reviewed: 08/28/2017 [employer] Patient Education 2020 [employer] 08/14/2022 22:12:46 Abdominal Pain, Adult, Rdfp-bs-Atck Abdominal Pain, Adult Many things can cause belly (abdominal) pain. Most times, belly pain is not dangerous. Many cases of belly pain can be watched and treated at home. Sometimes, though, belly pain is serious. Your doctor will try to find the cause of your belly pain. Follow these instructions at home: Medicines Take pfql-quc-icvtfrd and prescription medicines only as told by [...] your belly pain for any changes. Take gqwo-mxh-livhazm and prescription medicines only as told by [...] 11/11/2008 Document Revised: 10/04/2019 Document Reviewed: 10/04/2019 [employer] Patient Education 2020 [employer] Follow Up Care 08/14/2022 18:41:38 With:Juvenal THORPE Address: [address] , [place] [address]- Business (1) When:08/17/2022 Comments:Follow-up with Dr. Thorpe for further evaluation of your . With:Juventino Carbajal Address: [facility] [place] [address]- When:08/17/2022 Comments:Follow-up with your primary care provider in 3 to 5 days. If symptoms worsen, do not improve, or new symptoms arise please report back to emergency department for further evaluation. [facility]01-16-2023 Evaluation note* Encounter Date Diagnosis Assessment [...] return precautions. Jun, Cough (ICD-10 - R05.9) [facility] Other 06-07-2022 Evaluation note* Encounter Date Diagnosis [...] Pt understood and agreed to tx plan. [facility] Other 05-31-2022 Evaluation note* Encounter Date Diagnosis [...] condition October, Sore throat (ICD-10 - J02.9) [facility] Other Evaluation + Plan note No data available for this section [facility] note[facility] assessment information available [facility] Work Phone: Evaluation noteNo InformationNort SPO Other Evaluation note* Diagnosis 35 weeks gestation of Third trimester state, incidental documented in this encounter [facility] N[facility]ative - Reported* Type Description Date Medical History fx lt elbow at age 7 Surgical History surgical repair of left elbow f racture at age 7 Hospitalization History see surgical hx [facility] Handpressions Other Progress note No data available for this section [facility] Summary Purpose Family History No Family [...] DATE CREATED AUTHOR AUTHOR'S ORGANIZ ATION 10/10/2022 [facility] DATE CREATED AUTHOR AUTHOR'S ORGANIZ ATION 12/26/2023 [facility] DATE CREATED AUTHOR AUTHOR'S ORGANIZ ATION 02/05/2024 Rand Tj [facility] DATE CREATED AUTHOR AUTHOR'S ORGANIZ ATION 02/06/2024 Rand Mcduffie [facility] DATE CREATED AUTHOR AUTHOR'S ORGANIZ ATION 03/16/2024 [facility] [employer] Care Teams (unrecognized sec tion and content) Personnel Name: ELSALEILANI VELEZ SELAM Leslee Address: Address: [facility] [place], [facility] [place], [place] [address] Team Status: Active Member Role Status [...] BE BASED ON THE PRIMARY CLINICAL RECORDS. [facility] [employer] provides no warranty or guarantee of the accuracy or completeness of information in this document.
== END 2024-03-22 20:36 | disposition home or self-care (01) ==
LOC: LAB 20:35
PROVIDERS: Visit Provider Obstetrics & Gynecology
DX: Z34.93 Encounter for supervision of normal pregnancy, unspecified, third trimester (principal)
CPT/HCPCS: 87081; 87150

== ENCOUNTER 2024-03-25 06:56 | Outpatient (OUT) | payer OTHER, SELFPAY ==
--- OUTSIDE RECORDS SUMMARY | 2024-03-25 06:58 | XMS_ITS | CCD ---
Author Organization [facility] Care Team Providers Care Building Construction Teacher Name Role Phone Kendra Witt Unavailable Michael Oneil Unavailable Unavailable Primary Care Provider JUAQUIN Amos Referring Unavailable MAURILIO, DR NEAL Consulting Unavailable REQUEST, NONE LISTED Primary Care Unavaila ble MAURILIO, DR NEAL Attending Unavailable MAURILIO, DR NEAL Admitting Unavailable REQUEST, DR NIEVES LISTED Primary Care Unavaila ble MAURILIO, DR NEAL Attending Unavailable MAURILIO, DR NEAL Admitting Unavailable KARASIK, DR YANEZ Consulting Unavailable REQUEST, NONE LISTED Primary Care Unavaila ble MAURILIO, DR NEAL Attending Unavailable MAURILIO, DR NEAL Admitting Unavailable MAURILIO, DR NEAL Consulting Unavailable REQUEST, NONE LISTED Primary Care Unavaila ble MAURILIO, DR NEAL Attending Unavailable MAURILIO, DR NEAL Admitting Unavailable MAURILIO, DR NEAL Consulting Unavailable REQUEST, NONE LISTED Primary Care Unavaila ble MAURILIO, DR NEAL Attending Unavailable MAURILIO, DR NEAL Admitting Unavailable MAURILIO, DR NEAL Consulting Unavailable REQUEST, DR NONE LISTED Primary Care Unavaila ble MAURILIO, DR NEAL Attending Unavailable MAURILIO, DR NEAL Admitting Unavailable ROSEANN CORRAL Consulting Unavailable REQUEST, NONE LISTED Primary Care Unavaila ble ROSEANN CORRAL Attending Unavailable ROSEANN CORRAL Admitting Unavailable KARASIK, DR YANEZ Consulting Unavailable MISC, DR SANDOVAL Primary Care Unavailable KARASIK, DR YANEZ Attending Unavailable KARASIK, DR YANEZ Admitting Unavailable ZIEBER, DR MARS Mccarthy Consulting Unavailable JACKSON, DR SOFIA Hull Consulting Unavailable REQUEST, DR NONE LISTED Primary Care Unavaila ble MAURILIO, DR NEAL Attending Unavailable MAURILIO, DR NEAL Admitting Unavailable MAURILIO, DR NEAL Consulting Unavailable KARASIK, DR YANEZ Consulting Unavailable REQUEST, NONE LISTED Primary Care Unavaila ble MAURILIO, DR NEAL Attending Unavailable MAURILIO, DR NEAL Admitting Unavailable MAURILIO, DR NEAL Consulting Unavailable AGUBOSIZAN Lopez Consulting Unavailable MAURILIO, DR NEAL Procedure Practitioner Unavailab ricardo JACKSON, DR SOFIA Hull Consulting Unavailable EVER, NONE LISTED Primary Care Unavaila ble MAURILIO, DR NEAL Attending Unavailable MAURILIO, DR NEAL Admitting Unavailable MAURILIO, DR NEAL Consulting Unavailable [place], Viet Unavailable NONE, XXXX Primary Care Physician [...] Primary Care Unavailable Emily Harper Attending Unavailable SELMA HUNTER Admitting Unavailable SELAM HUNTER Attending Unavailable Siva Schulte Attending Unavailable SELAM HUNTER Primary Care Unavailable Unavailable Primary Care Provider UnavailJUVENAL Woods Attending Unavailable SHABANA CORRAL Attending Unavailable JUVENAL THORPE Attending Unavailable SHABANA CORRAL Attending Unavailable MAURILIO, JUVENAL Attending Unavailable ELLIS SHABANA Attending Unavailable JUVENAL THORPE Attending Unavailable ELLIS SHABANA Attending Unavailable JUVENAL THORPE Attending Unavailable Allergies Allergy Classification Reported Allergen(s) Allergy Type Date of Onset Reaction(s) Facility (1 source) No Known Medication Allergies; Translations: [No Known Medication Allergies] Propensity to adverse reactions (disorder) [facility] Repository Medications Current Medications Medication Drug [...] day(s), # 28 cap(s), Refills(s) 0, Pharmacy: [id number], 170, cm, 08/27/23 9:49:00 EDT, Height/Length Dosing, 78.7, kg, 08/27/23 9:49:00 EDT, Weight Dosing Start Date: 08/27/23 Stop Date: 09/03/23 Status: Ordered Start: 01-03-2023 take 1 capsule by [facility] every twelve hours Keflex 500 mg Cap 500 mg = 1 cap(s), Oral, q12hr, # 20 cap(s), Refills(s) 0, Pharmacy: [facility], 170, cm, 01/03/23 22:44:00 EDT, Height/Length Dosing, 75.3, kg, 01/03/23 22:44:00 EDT, Weight Dosing Start Date: 01/03/23 Status: Ordered Citalopram (2 sources) Serotonin Reuptake Inhibitor Citalopram Hydrobromide Active dexamethasone 1 mg/ml / neomycin 3.5 mg/ml / polymyxin b 82752 unt/ml ophthalmic suspension (2 sources) Aminoglycoside Antibacterial, Polymyxin-class Antibacterial, Corticosteroid Start: 09-26-19 take 1 drop(s) into the eye(s) four times daily Maxitrol 3.5-33654-3.1 1 drop into affected eye Ophthalmic Four times a day for 7 days Sep, Active ethinyl estradiol 0.02 mg / norethindrone acetate 1 mg oral tablet (6 sources) Estrogen Start: 04-10-20 Microgestin /20 20 mcg-1 mg oral tablet Refill(s) 0 Start Date: 04/10/19 Status: Ordered ferrous sulfate (6 sources) take 1 tablet by mouth in [...] Active magnesium oxide 400 mg oral tablet (6 sources) Start: 12-01-2023 End: 06-28-2024 take 1 tablet by mouth once daily magnesium oxide (Mag-Ox) 400 MG tablet Indications: Second trimester Take 1 tablet (400 mg) by mouth Daily 30 tablet 6 12/01/2023 03/22/2024 Discontinued [place] (No Known Home Meds) (1 source) Start: 06-26-2021 [place] (No Known Home Meds) Active June 26, 2021 1:00am omeprazole 20 mg delayed release oral capsule (2 sources) Proton Pump Inhibitor Start: 03-22-2024 End: 04-21-2024 take 1 capsule by mouth before mealtime omeprazole (PriLOSEC) [address] capsule Indications: Gastroesophageal Reflux Disease , Heartburn Take 1 capsule (20 mg) by mouth in the morning. Take before meals. Do not crush or chew.. 30 capsule 3 03/22/2024 04/21/2024 Active ondansetron 8 mg disintegrating oral tablet (8 sources) Serotonin-3 Receptor Antagonist Start: 06-24-2022 take [...] 06, 2021 1:00am June 27, 2021 12:00am End: 03-22-2024 take 1 tablet by mouth every eight hours as needed ondansetron (Zofran) 4 MG tablet Take 4 mg by mouth every 8 (eight) hours if needed 03/22/2024 Discontinued Zofran ODT 4 mg Tab-Dis (10 sources) Start: 01-03-2023 take 1 tablet by mouth every eight hours as needed for nausea Zofran ODT 4 mg Tab-Dis 4 mg = 1 tab(s), Oral, q8hr, PRN Nausea/Vomiting, # 12 tab(s), Refills(s) 0, Pharmacy: [facility], 170, cm, 01/03/23 22:44:00 EDT, Height/Length Dosing, 75.3, kg, 01/03/23 22:44:00 EDT, Weight Dosing Start Date: 01/03/23 Status: Ordered Start: 06-09-2019 take 1 tablet by faby th three times daily Zofran ODT 4 mg Tab-Dis 4 mg = 1 tab(s), Oral, TID, # 15 tab(s), Refills(s) 0, Pharmacy: [facility] Start Date: 06/09/19 [...] take 450 mg by mouth twice daily [place] Carbonate Discontinued 450 MG PO Twice daily [...] with other respiratory manifestations Episodic Menstrual disorders (11 sources) Irregular menstruation, unspecified; Translations: [Missed period] [...] , second trimester] Onset: 12-22-2023 Episodic Other complications of (2 sources) Gastroesophageal reflux disease in ; Translations: [Diseases of the digestive system complicating , unspecified trimester] 03-22-2024 Episodic Other female genital disorders (1 source) Abnormal uterine bleeding; Translations: [Abnormal uterine and vaginal bleeding, unspecified] Onset: 09-06-2022 Chronic Other female genital disorders (5 sources) Other specified noninflammatory disorders of vagina; Translations: [OTH SPEC NONINFLAMMATORY D/O VAGINA] Onset: 10-03-2021 Episodic Other and delivery including normal (14 sources) Encounter for routine follow-up; Translations: [Encounter [...] [35 weeks gestation of ] 03-15-2024 Episodic Residual codes; unclassified (2 sources) Gestation period, 36 weeks; Translations: [36 weeks gestation of ] 03-22-2024 Episodic Spontaneous (1 source) Complete inevitable miscarriage [...] ] Onset: 09-07-2021 Episodic Residual codes; unclassified (6 sources) H/O: miscarriage; Translations: [Personal history of [...] Range Facility Urinalysis macro (dipstick) panel (U)on 03-22-2024 Bilirubin, UA Negative Negative - 4(70) +++ mg/dL [facility] Blood, UA Negative Negative - 50 Miguel Ángel/mcL [facility] Clarity, UA Clear [facility] Color, UA Yellow [facility] Glucose, UA Negative Negative - 1999(110) ++++ mg/dL [facility] Interpretation and review of laboratory results Abnormal [facility] Ketones, UA Negative Negative - 160(16) ++++ mg/dL [facility] Leukocytes, UA Positive Negative - 500+++ Stefania/mcL [facility] Comment on above: small Nitrite, UA Negative Negative - Positive [facility] pH, UA 8.5 5 - 9 [facility] Protein, UA Trace Negative - 1999(20) ++++ mg/dL [facility] Spec Grav, UA 1.02 1 - 1.03 [facility] Urobilinogen, UA 0.2 0.2 - 12 mg/dL [facility] Urinalysis macro (dipstick) panel (U)on 03-15-2024 Bilirubin, UA Negative Negative - 4(70) +++ mg/dL [facility] Blood, UA Negative Negative - 50 Miguel Ángel/mcL [facility] Clarity, UA Clear [facility] Color, UA Yellow [facility] Glucose, UA Negative Negative - 1999(110) ++++ mg/dL [facility] Interpretation and review of laboratory results Abnormal [facility] Ketones, UA Negative Negative - 160(16) ++++ mg/dL [facility] Leukocytes, UA Positive Negative - 500+++ Stefania/mcL [facility] Comment on above: small Nitrite, UA Negative Negative - Positive [facility] pH, UA 7.5 5 - 9 [facility] Protein, UA Negative Negative - 1999(20) ++++ mg/dL [facility] Spec Grav, UA 1.020 1 - 1.03 [facility] Urobilinogen, UA 4.0 0.2 - 12 mg/dL [facility] Grp A Strp PCRon 02-04-2024 Grp A Strp Intrl Ctrl Pass Normal [facility] Comment on above: Order Comment: Order Added on by Discern Rule. Performed By: #### 1 [id number] #### [facility] [address] [place] [address] S. pyogenes DNA ALFREDO+probe Ql (Throat) Negative Normal [facility] Comment on above: Order Comment: Order Added on by Discern Rule. Result Comment: Test ing performed using DNA amplification. Performed By: #### 1 [id number] #### [facility] [address] [place] [address] ED Clinical Summaryon 2023 ED Clinical Summary ED Clinical Summary [address] [address] ED Clinical Summary Person Information Name: KAILYN ACKERMAN Heena/[facility] Age: 23 Years : 2000 Sex: Female Language: Cypriot PCP: SELAM HUNTER CNP Marital Status: Single Phone: [phone] MRN: Visit Id: Visit Reason: Headache; Body [...] 02/03/2024 11:17:23 02/03/2024 11:17:23 02/03/2024 11:17:23 ADDRESS: [address] [place] [id number] PHYS DOC NOTES: MEDICAL INFORMATION: Prescriptions Given: Medications to Continue with No Changes Other Medications cephalexin (Keflex 500 mg Cap) 1 Capsules By Mouth every 12 hours. Refills: 0. ethinyl estradiol-norethin drone (Microgestin 06/28 20 mcg-1 mg oral tablet) ondansetron (Zofran ODT 4 mg Tab-Dis) 1 Tablets By Mouth 3 times a day. Refills: 0. ondansetron (Zofran ODT 4 mg Tab-Dis) 1 Tablets By Mouth every 8 hours as needed Nausea/Vomiting. Refills: 0. PATIENT EDUCATION INFORMATION: Instructions: Upper Respiratory Infection, Adult Follow up: With: Address: When: Juvenal THORPE [facility], [address] [place] [address] , [place] [address] Business (1) In 3 days 02/06/2024 With: Address: When: [place] [address] Business (1) In 3 days 02/06/2024 DIAGNOSIS: Sore throat; Viral URI Normal [facility] ED Note-Physicianon 02-03-20 ED Note-Physician ED Note-Physician Basic Information Time Seen: Duc Swanson PA-C 02/03/2024 09:24 Chief Complaint c/o throat pain, fatigue, body aches, headaches, congestion that started last night. states was around covid over the weekend, coworker tested positive this morning. states gets strep often as well. 30 weeks dick thorpe History of Present Illness Patient is a [...] acute otitis media, chronic sinusitis, UTI, etc.) [[facility] [employer] EXCEPTION/EXCLUSIO N] [ ] The patient was diagnosed with upper respiratory infection and was prescribed or dispensed an antibiotic. [DOES NOT SATISFY [facility]] Medical Decision Making Patient is a [...] URI and will continue to follow-up with CARDING DOUBLER for further evaluation and management. We discussed [...] days 02/06/2024 (more content not included)... Normal [facility] Comment on above: Result Comment: Elec tronically Signed By: Kiki CHUNG, Duc Shaw\.br\Date and Time Signed: 02/03/24 13:23 EDT\.br\Electronically Co-Signed By: Siva Schulte DO\.br\Date and Time Co-Signed: 02/03/24 14:44 EDT ED Patient Summaryon 024 ED Patient Summary ED Patient Summary [place] [id number] Patient Discharge Instructions Person Information Name: KAILYN ACKERMAN Age: 23 Years Arrival Date: 02/03/2024 09:21:41 Discharge Diagnosis: Sore throat; Viral URI Primary Care Physician: SELAM HUNTER CNP Provider Information Primary Provider: Siva Schulte DO Advanced Deblocker:Duc Swanson PA-C. The exam and treatment you received in the Emergency Department were for an urgent problem and are not intended as complete care. It is important that you follow up with a doctor, nurse practitioner, or physician?s dental assistant medical assistant for ongoing care. If your symptoms become worse or you do not improve as expected and you are unable to reach your usual health care provider, you should return to the Emergency Department. We are available 24 hours a day. KAILYN ACKERMAN has been given the following list of patient education materials, prescriptions and follow-up instructions: Follow-up Instructions: With: Address: When: Juvenal MA[address] [place] [phone] Business (1) In 3 days 02/06/2024 With: Address: When: SELAM HUNTER [address] [place] [address] [place] [phone] Business (1) In 3 days 02/06/2024 In the event that this physician does not participate in your insurance network, please consult with your insurance company to find a nearby participating provider. Patient Education Materials: Upper Respiratory Infection, Adult A MESSAGE TO ALL PATIENTS REGARDING OPIOIDS PRESCRIPTION OPIOIDS: WHAT YOU NEED TO KNOW Prescription opioids can be used to help relieve xqvcwrle-du-gigznc pain and are often prescribed following a [...] of op (more content not included)... Normal [facility] MICRO OTHER TESTSOrdered By: Nita Delgadillo on 02-03-2024 S. pyogenes Ag IA.rapid Ql (Throat) Negative (02/03/24 11:07 AM) Normal Negative [facility] Man Sero MICRO OTHER TESTSOrdered By: Asuncion Goncalves on 02-03-2024 Rapid COV Int NEG Ctl Pass (02/03/24 9:30 AM) Normal [facility] Man Sero Rapid COV Int POS Ctl Pass (02/03/24 9:30 AM) Normal [facility] Sero SARS-CoV+SARS-CoV-2 (COVID-19) Ag IA.rapid Ql (Resp) Not Detected 1 (02/03/24 9:30 AM) Normal Not Detected [facility] Man Sero Comment on above: Interpretive Data: Gato multani [employer] Veritor System for Rapid Detection of SARS-CoV-2 [...] Comment on above: Performed By: #### 2 [id number] #### [facility] [address] [place] [address] Rapid COV Int POS Ctl Pass Normal [facility] Comment on above: Performed By: #### 2 [id number] #### [facility] [address] [place] [address] SARS-CoV+SARS-CoV-2 (COVID-19) Ag IA.rapid Ql (Resp) Not detected Normal Not Detected [facility] Comment on above: Result Comment: The [employer]? System for Rapid Detection of SARS-CoV-2 is [...] other viruses or pathogens; and, in the [facility], this test is only authorized for the duration of the declaration that circumstances exist justifying the authorization of emergency use of in vitro diagnostics for detection and/or diagnosis of the virus that causes COVID-19 under Section 564(b)(1) of the Act, 21 U.S.C. ? 360bbb-3(b)(1), unless the authorization is terminated or revoked sooner. Performed By: #### 2 [id number] #### [facility] [address] [place] [address] Rapid Strep w/rfxon 02-03-20 24 S. pyogenes Ag IA.rapid Ql (Throat) Negative Normal Negative [facility] Comment on above: Performed By: #### 2 [id number] #### [facility] [address] [place] [address] ED Note-Physicianon 09-26-19 24 ED Note-Physician Basic [...] than 90,000. Ultrasound was obtained discussed with photonics engineering technician. Intrauterine consistent with stated gestational age. Stable heart rate. Patient continues to demonstrate subchorionic hematoma. Also left-sided ovarian cyst similar to previous. Results were discussed with the patient. She is discharged home to continue pelvic rest and follow-up with CARDING DOUBLER. Patient was encouraged to return to the [...] medications Follow-up With When Contact Information Juvenal THOPRE In 3 days 09/26/2023 EDT [facility] [address] [facility] [place] [address]- Business (1) Additional Instructions: Patient Education Subchorionic [...] to ensure accuracy, however, inadvertently computerized sports physician mistakes may be present. Appropriate healthcare PPE [...] Yes., 04/10/2019 Lab Results Beta hCG Qnt: 95456 mIU/mL High (09/23/23 09:28:00) Diagnostic Results No qualifying data available. Normal [facility] Comment on above: Result Comment: Elec tronically Signed By: Venkat Lockwood PA-C\.br\Date and Time Signed: 09/23/23 11:45 EDT\.br\Electronically Co-Signed By: Wil Chandra DO\.br\Date and Time Co-Signed: 09/26/23 07:37 EDT [facility] Quanton 09-23-2023 [place] [address] m[IU]/mL High 1-3 F [facility] Comment on above: Result Comment: 'F N ON < 1 - 3' ' 0.2 - 1 WEEK = 5 TO 50' ' 1 - 2 WEEKS = 50 - 500' ' 2 - 3 WEEKS = 100 - 5000' ' 3 - 4 WEEKS = 500 - 53436' ' 4 - 5 WEEKS = 1000 - 86355' ' 5 - 6 WEEKS = 35480 - 931532' ' 6 - 8 WEEKS = 30920 - 974168' ' 8 - 12 WEEKS = 99625 - 407377' Performed By: #### 2 [id number] ####[facility] [address] [place] [address] CHEMISTRYOrdered By: SYSTEM SYSTEM on 09-23-2023 [place] [address] m[IU]/mL High 1 - 3 mIU/mL [facility] Comment on above: Result Comment: 'F N ON < 1 - 3' ' 0.2 - 1 WEEK = 5 TO 50' ' 1 - 2 WEEKS = 50 - 500' ' 2 - 3 WEEKS = 100 - 5000' ' 3 - 4 WEEKS = 500 - 33375' ' 4 - 5 WEEKS = 1000 - 19458' ' 5 - 6 WEEKS = 83774 - 034667' ' 6 - 8 WEEKS = 21952 - 865846' ' 8 - 12 WEEKS = 74544 - 608433' Consent for Treatmenton 09-07 Consent for Treatment [id number]#1.00TIFF Normal [facility] Discharge Instructionson Discharge Instructions [id number]#1.00TIFF Normal [facility] ED Clinical Summaryon 2023 ED Clinical Summary [address] [address] ED Clinical Summary Person Information Name: KAILYN ACKERMAN Heena/[facility] Age: 23 Years : 2000 Sex: Female Language: Cypriot PCP: NONE, XXXX Marital Status: Single Phone: [phone] MRN: Visit Id: Visit Reason: Back pain; [...] 09/23/2023 11:52:16 09/23/2023 11:52:16 09/23/2023 11:52:16 ADDRESS: [facility] [id number] PHYS DOC NOTES: MEDICAL INFORMATION: Prescriptions Given: [...] Hematoma Follow up: With: Address: When: Juvenal MAURILIO [facility], [address] [place] [address] [place] [address] Business (1) In 3 days 09/26/2023 DIAGNOSIS: Other antepartum hemorrhage, unspecified trimester; Subchorionic bleed; Vaginal bleeding in Normal [facility] ED Patient Education Noteon 09-23-2023 ED [...] Reviewed: 02/19/2021 Elsevier Patient Education ? 2022 [employer] Normal [facility] ED Patient Summaryon 024 ED Patient Summary [address] [address] Patient Discharge Instructions Person Information Name: KAILYN ACKERMAN Age: 23 Years Arrival Date: 09/23/2023 09:10:07 Discharge Diagnosis: Other antepartum hemorrhage, unspecified trimester; Subchorionic bleed; Vaginal bleeding in Primary Care Physician: EZEQUIEL, XXXX Provider Information Primary Provider: Wil Chandra DO Advanced Deblocker:Venkat Leal PA-C The exam and treatment you received in the Emergency Department were for an urgent problem and are not intended as complete care. It is important that you follow up with a doctor, nurse practitioner, or physician?s dental assistant medical assistant for ongoing care. If your symptoms become worse or you do not improve as expected and you are unable to reach your usual health care provider, you should return to the Emergency Department. We are available 24 hours a day. KAILYN ACKERMAN has been given the following list of patient education materials, prescriptions and follow-up instructions: Follow-up Instructions: With: Address: When: Juvenal [facility], [address] [place] [address] [place] [address] [facility] (1) In 3 days 09/26/2023 In the event that this physician does not participate in your insurance network, please consult with your insurance company to find a nearby participating provider. Patient Education Materials: Subchorionic Hematoma A MESSAGE TO ALL PATIENTS REGARDING OPIOIDS PRESCRIPTION OPIOIDS: WHAT YOU NEED TO KNOW Prescription opioids can be used to help relieve apbxnonr-ck-ijqmcl pain and are often prescribed following a [...] health care p (more content not included)... [facility] Prescriptions/Work Noteson 0 09-23-2023 Prescriptions/Work Notes [id number] Normal [facility] US 1st Trimesteron 09-23-2023 US 1st [...] least 66% of the gestational sac circumference. [place] Rump Length: 3.2 cm, which corresponds Composite [...] Size = Dates Uterus Position Anteverted Normal [facility] C Urineon 08-29-2023 Bacteria identified Cx [...] Locations R1: This test was performed at: [facility], [address] [place] [address], [facility] , , [facility] Comment on above: Performed By: #### 4 [id number] ####[address] [address] ABO/Rhon 08-27-2023 ABO/Rh Positive Invalid Interpretation Code [facility] Comment on above: Performed By: #### 2 [id number] ####[place] [address] [place] [address] BLOOD BANKOrdered By: Liza Xavier on 08-27-2023 ABO/Rh Interp Positive Invalid Interpretation Code [facility] BB Subsection BMPon 08-27-2023 Anion gap [Moles/Vol] 11 mmol/L Normal 6-16 [facility] Comment on above: Performed By: #### 1 [id number] ####[facility] [address] [place] [address] Calcium [Mass/Vol] 9.3 mg/dL Normal 8.9-11.1 [facility] Comment on above: Performed By: #### 1 [id number] ####[facility] [address] [facility] [place] [address] Chloride [Moles/Vol] 104 mmol/L Normal 101-[address] [facility] Comment on above: Performed By: #### 1 [id number], [id number] ####[facility] [address] [facility] [place] [address] CO2 [Moles/Vol] 24 mmol/L Normal 21-31 [facility] Comment on above: Performed By: #### 1 [id number] ####[facility] [address] [place] [address] Creatinine [Mass/Vol] 0.6 mg/dL Normal 0.5-1.3 [facility] Comment on above: Performed By: #### 1 [id number] ####[facility] [address] [place] [address] Glucose [Mass/Vol] 87 mg/dL Normal 55-199 [facility] Comment on above: Performed By: #### 1 [id number], [id number], [id number] ####[facility] [address] [place] [address] Potassium [Moles/Vol] 3.7 mmol/L Normal 3.5-5.3 [facility] Comment on above: Performed By: #### 1 [id number], 1254057, 8213784 ####[facility] [address] [place] [address] Sodium [Moles/Vol] 135 mmol/L Normal 135-145 [facility] Comment on above: Performed By: #### 1 [id number], 1820431, 6663056 ####[facility] [address] [place] [address] Urea nitrogen [Mass/Vol] 8 mg/dL Normal 5-21 [facility] Comment on above: Performed By: #### 1 [id number], 8877540, 4517354 ####[facility] [address] [place] [address] Urea nitrogen/Creatinine [Mass ratio] 13 No Units Normal 10-20 [facility] Comment on above: Performed By: #### 1 [id number], 5285193, 1663567 ####[address] [address] BhCG Quanton 08-27-2023 [place] [address] m[IU]/mL High 1-3 [facility] Comment on above: Result Comment: 'F N ON < 1 - 3' ' 0.2 - 1 WEEK = 5 TO 50' ' 1 - 2 WEEKS = 50 - 500' ' 2 - 3 WEEKS = 100 - 5000' ' 3 - 4 WEEKS = 500 - 69058' ' 4 - 5 WEEKS = 1000 - 04423' ' 5 - 6 WEEKS = 56230 - 518486' ' 6 - 8 WEEKS = 42477 - 927778' ' 8 - 12 WEEKS = 14496 - 987473' Performed By: #### 2 [id number] ####[facility] [address] [place] [address] CBC w/ Auto Diffon Basophils/100 WBC (Bld) 0.6 % Normal 0.0-2.0 [facility] Comment on above: Performed By: #### 1 0132441, 1422134, 0291387 ####[address] [address] Basophils/Leukocytes Auto (Bld) [Pure # fraction] 0.0 E9/L Normal 0.0-0.2 [facility] Comment on above: Performed By: #### 1 7843398, 6849414, 1719618 ####[address] [address] Eosinophils (Bld) [#/Vol] 0.1 E9/L Normal 0.0-0.5 [facility] Comment on above: Performed By: #### 1 0300853, 6719204, 7201328 ####[address] [address] Eosinophils/100 WBC (Bld) 2.0 % Normal 0.0-8.0 [facility] Comment on above: Performed By: #### 1 5028313, 6883261, 7747275 ####[address] [address] Erythrocyte distribution width (RBC) [Ratio] 15.0 % High 10.9-14.2 [facility] Comment on above: Performed By: #### 1 8442326, 4245997, 7204501 ####[address] [address] Hematocrit (Bld) [Volume fraction] 37.4 % Normal 34.0-46.0 [facility] Comment on above: Performed By: #### 1 0409727, 1467669, 9560431 ####[address] [address] Hemoglobin (Bld) [Mass/Vol] 12.7 g/dL Normal 12.0-16.0 [facility] Comment on above: Performed By: #### 1 4439509, 9498930, 4534313 ####[address] [address] Lymphocytes (Bld) [#/Vol] 2.0 E9/L Normal 1.0-4.0 [facility] Comment on above: Performed By: #### 1 8097833, 8551892, 6514163 ####[address] [address] Lymphocytes/100 WBC (Bld) 28.1 % Normal 14.0-50.0 [facility] Comment on above: Performed By: #### 1 7718437, 5949855, 7996172 ####[address] [address] MCH (RBC) [Entitic mass] 28.4 pg Normal 27.0-34.0 [facility] Comment on above: Performed By: #### 1 2263463, 0651690, 1498257 ####[address] [address] MCHC (RBC) [Mass/Vol] 33.8 g/dL Normal 31.4-36.0 [facility] Comment on above: Performed By: #### 1 5960594, 8384051, 3601712 ####[address] [address] MCV (RBC) [Entitic vol] 84.0 fL Normal 80.0-100.0 [facility] Comment on above: Performed By: #### 1 2539066, 3070727, 5340228 ####[address] [address] Monocytes (Bld) [#/Vol] 0.5 E9/L Normal 0.2-1.0 [facility] Comment on above: Performed By: #### 1 1369195, 2406170, 6381039 ####[address] [address] Neutrophils (Bld) [#/Vol] 4.5 E9/L Normal 2.0-7.5 [facility] Comment on above: Performed By: #### 1 0545465, 4937239, 9903474 ####[address] [address] Neutrophils/100 WBC (Bld) 61.9 % Normal 36.0-75.0 [facility] Comment on above: Performed By: #### 1 0092812, 6250986, 3073497 ####[address] [address] Platelet mean volume (Bld) [Entitic vol] 7.9 fL Normal 6.4-10.8 [facility] Comment on above: Performed By: #### 1 6873353, 0735322, 7037858 ####[address] [address] Platelets (Bld) [#/Vol] 252.0 E9/L Normal 150.0-500.0 [facility] Comment on above: Performed By: #### 1 8667908, 2043149, 4815507 ####[facility] [address] [place] [address] RBC (Bld) [#/Vol] 4.5 E12/L Normal 4.3-5.9 [facility] Comment on above: Performed By: #### 1 2984668, 1896884, 2175955 ####[facility] [address] [place] [address] WBC corrected for nucl RBC Auto (Bld) [#/Vol] 7.2 E9/L Normal 4.0-11.0 [facility] Comment on above: Performed By: #### 1 0855606, 4236551, 3172502 ####[facility] [address] [place] [address] CHEMISTRYOrdered By: SYSTEM SYSTEM on 08-27-2023 Anion [...] 199 mg/[place] [address] m[IU]/mL High 1 - 3 mIU/mL [facility] Comment on above: Result Comment: 'F N ON < 1 - 3' ' 0.2 - 1 WEEK = 5 TO 50' ' 1 - 2 WEEKS = 50 - 500' ' 2 - 3 WEEKS = 100 - 5000' ' 3 - 4 WEEKS = 500 - 84775' ' 4 - 5 WEEKS = 1000 - 87518' ' 5 - 6 WEEKS = 18293 - 113138' ' 6 - 8 WEEKS = 53086 - 646259' ' 8 - 12 WEEKS = 48293 - 190071' Potassium [Moles/Vol] 3.7 mmol/L Normal 3.5 - 5.3 mmol/L [facility] Chem Sodium [Moles/Vol] 135 mmol/L Normal 135 - 145 mmol/L [facility] Urea nitrogen [Mass/Vol] 8 mg/dL Normal 5 - 21 mg/d L [facility] Chem Urea nitrogen/Creatinine [Mass ratio] 13 mg/mg Normal 10 - 20 Rem[facility] Chem Consent for Treatmenton 08-08 Consent for Treatment [id number] Normal [facility] Discharge Instructionson Discharge Instructions [id number] Normal [facility] ED Clinical Summaryon 2023 ED Clinical Summary [place] [id number] ED Clinical Summary Person Information Name: KAILYN ACKERMAN [facility] Age: 22 Years : 2000 Sex: Female Language: Cypriot PCP: SELAM HUNTER CNP Marital Status: Single Phone: [phone] Visit Id: Visit Reason: Vaginal bleeding - [...] 08/27/2023 12:34:16 08/27/2023 12:34:16 08/27/2023 12:34:16 ADDRESS: [address] [id number] PHYS DOC NOTES: MEDICAL INFORMATION: Prescriptions Given: Medications to Continue Taking That Have Changed [facility], [address] [place], [place] [id number], [phone] START: cephalexin (Keflex 500 mg Cap) 1 [...] Urinary Tract Infection; Urinary Tract Infection, Adult, Nvht-ao-Mufv; Subchorionic Hematoma Follow up: With: Address: When: Juvenal THORPE [address] [place] [address] Business (1) In 3 days 08/30/2023 With: Address: When: [place] [address] Business (1) In 3 days DIAGNOSIS: Other antepartum hemorrhage, unspecified trimester; Subchorionic bleed; UTI (urinary tract infection) during ; Vaginal bleeding in Normal [facility] ED Note-Physicianon 08-27-19 ED Note-Physician Basic [...] and Complexity of Problems Differential Diagnosis: [] [facility] Data External documents reviewed: [] [...] day(s), # 28 cap(s), Refills(s) 0, Pharmacy: [facility], 170, cm, 08/27/23 9:49:00 EDT, Height/Length [...] Juvenal THORPE In 3 days 08/30/[address] [place] [address]- Business (1) Additional Instructions: SELAM HUNTER In 3 days [address] [place] [address]- Business (1) Additional Instructions: Patient Education and Urinary Tract Infection Urinary Tract Infection, Adult, Gczw-rz-Pgik Subchorionic Hematoma Attestation Patient seen and evaluated by the physician dental assistant medical assistant. Attending physician was present in the emergency department and s (more content not included)... [facility] Comment on above: Result Comment: Elec tronically Signed By: Hudson Riley PA-C\.br\Date and Time Signed: 08/27/23 13:49 EDT\.br\Electronically Co-Signed By: Leroy Capps, Emily Hart\.br\Date and Time Co-Signed: 08/27/23 14:25 EDT ED [...] provider. Document Revised: 01/09/2022 Document Reviewed: 01/09/2022 [employer] Patient Education ? 2022 Finjan. Urinary Tract Infection, Adult A urinary tract [...] swelling (inflammation) (more content not included)... Normal [facility] ED Patient Summaryon 024 ED Patient Summary [address] [address] Patient Discharge Instructions Person Information Name: KAILYN ACKERMAN Age: 22 Years Arrival Date: 08/27/2023 09:37:12 Discharge Diagnosis: Other antepartum hemorrhage, unspecified trimester; Subchorionic bleed; UTI (urinary tract infection) during ; Vaginal bleeding in Primary Care Physician: SELAM HUNTER CNP Provider Information Primary Provider: Leroy CappsEmily Advanced Deblocker:None The exam and treatment you received in the Emergency Department were for an urgent problem and are not intended as complete care. It is important that you follow up with a doctor, nurse practitioner, or physician?s dental assistant medical assistant for ongoing care. If your symptoms become worse or you do not improve as expected and you are unable to reach your usual health care provider, you should return to the Emergency Department. We are available 24 hours a day. KAILYN ACKERMAN has been given the following list of patient education materials, prescriptions and follow-up instructions: Follow-up Instructions: With: Address: When: Juvenal RAMIREZO [facility], [address] [facility] [place] [address] Business (1) In 3 days 08/30/2023 With: Address: When: [place] [address] Business (1) In 3 days In the event that this physician does not participate in your insurance network, please consult with your insurance company to find a nearby participating provider. Patient Education Materials: and Urinary Tract Infection; Urinary Tract Infection, Adult, Ozeo-su-Xsxv; Subchorionic Hematoma A MESSAGE TO ALL PATIENTS REGARDING OPIOIDS PRESCRIPTION OPIOIDS: WHAT YOU NEED TO KNOW Prescription opioids can be used to help relieve qbujktkf-ag-jccgjp pain and are often prescribed following a [...] toilet, follo (more content not included)... Normal [facility] HEMATOLOGYOrdered By: SYSTEM SYSTEM on 08-27-2023 [...] Rflxon 08-27-19 Color (U) Light-Yellow Normal Yellow [facility] Comment on above: Result Comment: Micr oscopic readings are only performed on those samples that meet specific criteria set forth by [facility] Laboratory. Performed By: #### 4 [id number], 7765195 ####[facility] [address] [place] [address] Glucose (U) [Mass/Vol] Negative Normal Negative [facility] Comment on above: Performed By: #### 4 [id number], 9113578 ####[facility] [address] [place] [address] Ketones Ql (U) Negative Normal Negative [facility] Comment on above: Performed By: #### 4 065116925, 6213985 ####[place] [address] UA Blood 3+ Abnormal Negative [facility] Comment on above: Performed By: #### 4 656802558, 7066628 ####[place] [address] UA Bacteria 1+ [id number] Abnormal Trace [facility] Comment on above: Performed By: #### 4 390900151, 6974988 ####[place] [address] UA Clarity Turbid Abnormal Clear [facility] Comment on above: Performed By: #### 4 [id number], 5788341 ####[place] [address] UA Hyal Cast 0-3 Normal 0-3 [facility] Comment on above: Performed By: #### 4 254137798, 4450780 ####[facility] [address] [place] [address] UA Leuk Est 250 Stefania/uL Abnormal Negative [facility] Comment on above: Performed By: #### 4 381332569, 5877308 ####[facility] [address] [place] [address] UA Mucous Trace Normal Negative [facility] Comment on above: Performed By: #### 4 472776926, 7038951 ####[address] [address] UA Nitrite Negative Normal Negative [facility] Comment on above: Performed By: #### 4 829532541, 5888180 ####[address] [address] UA pH 5.5 Invalid Interpretation Code 5.0-9.0 [facility] Comment on above: Performed By: #### 4 [id number], 3111425 ####[place] [address] UA Protein 1+ mg/dL Abnormal Negative [facility] Comment on above: Performed By: #### 4 [id number], 4223557 ####[place] [address]757 UA RBC 4-20 Abnormal 0-3 [facility] Comment on above: Performed By: #### 4 585581179, 6121982 ####[place] [address] UA Spec Grav 1.018 Invalid Interpretation Code 1.005-1.030 [facility] Comment on above: Performed By: #### 4 [id number], 8532844 ####[address] [address] UA Squam Epithelial 3-4 Abnormal 0-2 [facility] Comment on above: Performed By: #### 4 767236382, 0478275 ####[address] [address] UA Urobilinogen Negative Normal Negative [facility] Comment on above: Performed By: #### 4 894248388, 7923399 ####[address] [address] UA WBC 6-15 Abnormal 0-5 [facility] Comment on above: Performed By: #### 4 730886777, 2174061 ####[address] [address] Urobilinogen (U) [Mass/Vol] Negative Normal Negative [facility] Comment on above: Performed By: #### 4 [id number], 4085632 ####[facility] [address] [place] [address] UA Spec Desc Clean Catch Normal [facility] Comment on above: Performed By: #### 4 [id number], 6243382 ####[facility] [address] [place] [address] URINALYSISOrdered By: SYSTEM SYSTEM on 08-27-2023 Color (U) Light-Yellow 1 (08/27/23 9:55 AM) Normal Yellow [facility] UA Auto SS Comment on above: Interpretive Data: M icroscopic readings are only performed on those samples that meet specific criteria set forth by [facility]. Glucose (U) [Mass/Vol] Negative Normal [...] 3-4 graded/HPF Invalid Interpretation Code 0-2graded/HP F FT UA Auto SS UA Urobilinogen Negative Normal Negativemg/d L [facility] UA Auto SS UA WBC 6-15 graded/HPF Invalid Interpretation Code 0-5graded/HP F [facility] UA Auto SS Urobilinogen (U) [Mass/Vol] Negative Normal Negativemg/d L [facility] UA Auto SS URINALYSISOrdered By: Hudson munoz on 08-27-2023 UA Spec Desc Clean Catch (08/27/23 9:55 AM) Normal [facility] UA Auto SS US 1st Trimesteron 08-27-2023 US 1st Trimester Exam Date/Time: 08/27/2023 11:54 EDT Reason for Exam: Other (please specify) Report [facility] [phone] IMPRESSION: Single live intrauterine with estimated sonographic [...] heart rate is measured at 120 bpm. [place]-rump length 4.77 mm. Estimated sonographic gestational age [...] Transvaginal Ultrasound Performed FHR (bpm) 120 Normal [facility] US Transvaginalon 08-27-2023 US Transvaginal Exam Date/Time: 08/27/2023 11:55 EDT Reason for Exam: Other (please specify) Report [facility] [phone] Please see ultrasound pelvis, for report of transvaginal examination. Ordering Provider: Hudson Riley FINAL REPORT Dictated: 08/27/2023 12:33 pm Zach Deng MD Signed (Electronic Signature): 08/27/2023 12:33 pm Signed by: Zach Deng MD Transcribed by: KIRK Technologist: SHELLEY Normal [facility] eGFRon 08-27-2023 eGFR 131 mL/min/1.73 m2 Normal >=59 [facility] Comment on above: Order Comment: Order added by Discern Expert. Performed By: #### 1 [id number], 0856197, 5168178 ####[facility] [address] [place] [address] [facility] Quanton 08-19-2023 HCG.beta subunit Qn 4261 m[IU]/mL High 1-3 [facility] Comment on above: Result Comment: 'F N ON < 1 - 3' ' 0.2 - 1 WEEK = 5 TO 50' ' 1 - 2 WEEKS = 50 - 500' ' 2 - 3 WEEKS = 100 - 5000' ' 3 - 4 WEEKS = 500 - 644[address]' ' 4 - 5 WEEKS = 1000 - 35796' ' 5 - 6 WEEKS = [address] - 562016' ' 6 - 8 WEEKS = [address] - 597684' ' 8 - 12 WEEKS = [address] - 995203' Performed By: #### 2 [id number] ####[facility] [address] [place] [address] Physician Orderon 08-19-2023 Physician Order [id number] Normal [facility] CHEMISTRYOrdered By: Juancho benitez on 01-03-2023 [...] 6 - 16 mEq/L F C Remisol AST [Catalytic activity/Vol] 17 [iU]/d Normal [...] 101 mg/dL Normal 55 - 199 mg/dL [facility] Remisol Lipase [Catalytic activity/Vol] 29 U/L Normal [...] ratio] 12 mg/mg Normal 10 - 20 FT Remisol CHEMISTRYOrdered By: SYSTEM SYSTEM on 01-03-2023 GFR/1.73 sq M.predicted among non-blacks MDRD (S/P/Bld) [Vol rate/Area] 108 mL/min/1.73 m2 Normal >=59mL/min/1 .73 m2 [facility] Chem S HCG.beta subunit Qn 1572 m[IU]/mL High 1 - 3 mIU/mL [facility] Remisol HEMATOLOGYOrdered By: SYSTEM SYSTEM on 01-03-2023 [...] E9/L Normal 150. 0 - 500.0 E9/L FT HemeAutoSS RBC (Bld) [#/Vol] 4.2 E12/L Low 4.3 - 5.9 E12/L [facility] HemeAutoSS WBC corrected for nucl RBC Auto (Bld) [#/Vol] 16.9 E9/L High 4.0 - 11.0 E9/L FT HemeAutoSS Laboratory - Microbiology an d Antimicrobial susceptibilityOrdered By: Asuncion Goncalves on 01-03-2023 Bacteria identified Cx Nom (U) No growth to date Continuing incubation [facility] MICRO OTHER TESTSOrdered By: Juancho Fitch on 01-03-2023 S. pyogenes Ag IA.rapid Ql (Throat) Positive *ABN* (01/03/23 10:52 PM) Invalid Interpretation Code Negative [facility] Man Sero SEROLOGYOrdered By: Juancho mullins on [...] Interpretation Code Negative [facility] UA Auto SS [place].plasma/[place].R BC (Bld) [Mass ratio] 0-3 /HPF Normal [...] [facility] UA Auto SS Urobilinogen Qn (U) 1.0059442 {Georgina'U}/dL Normal 0.0 - 1.0 EU/dL [facility] UA Auto SS WBC Auto Ql (U) 1+ *ABN* (01/03/23 10:52 PM) Invalid Interpretation Code Negative [facility] UA Auto SS WBC LM.HPF (Urine sed) [#/Area] 6-15 /HPF Invalid Interpretation Code 0-5/HPF [facility] UA Auto SS Alanine aminotransferase [En zymatic activity/volume] in Serum or PlasmaOrdered By: Jose Silverman on 10-02-2022 ALT [Catalytic activity/Vol] 13 U/L Normal 7-52 [facility] Comment on above: Performed By: #### C BC, CMP, ETOH #### [facility] [address] [place] [address] [place] Albumin [Mass/volume] in Ser um or Plasma by Bromocresol green (BCG) dye binding methoOrdered By: Jose Silverman on 10-02-2022 Albumin BCG dye [Mass/Vol] 5.0 g/dL 3.5-5.7 [facility] Alkaline phosphatase [Enzyma tic activity/volume] in Serum or PlasmaOrdered By: Jose Silverman on 10-02-2022 ALP [Catalytic activity/Vol] 69 U/L Normal 34-104 [facility] Comment on above: Performed By: #### C BC, CMP, ETOH #### [address] Amphetamine Screen Ql (U)Ord ered By: Jose Silverman on 10-02-2022 Amphetamines Ql (U) Negative Negative [facility] Aspartate aminotransferase [ Enzymatic activity/volume] in Serum or PlasmaOrdered By: Jose Silverman on 10-02-2022 AST [Catalytic activity/Vol] 21 U/L Normal 13-39 [facility] Comment on above: Performed By: #### C BC, CMP, ETOH #### [address] Automated basophil %Ordered By: Jose Silverman on 10-02-2022 Basophils/100 WBC (Bld) 0.5 % Normal . F [facility] Comment on above: Performed By: #### C BC, CMP, ETOH #### [address] Automated basophil countOrde red By: Jose Silverman on 10-02-2022 Basophils (Bld) [#/Vol] 0.1 10*3/uL Normal 0.0-0.2 [facility] Comment on above: Result Comment: PERF ORMED BY: [place] [address] PATHOLOGIST BATTER OUT ASHELY CAREY M.D. Performed By: #### C BC, CMP, ETOH #### [address] Automated blood monocyte cou ntOrdered By: Jose Silverman on 10-02-2022 Monocytes (Bld) [#/Vol] 0.7 10*3/uL Normal 0.0-0.8 [facility] Comment on above: Performed By: #### C BC, CMP, ETOH #### [address] Automated eosinophil %Ordere d By: Jose Silverman on 10-02-2022 Eosinophils/100 WBC (Bld) 2.0 % Normal . [facility] Comment on above: Performed By: #### C BC, CMP, ETOH #### [address] Automated eosinophil countOr dered By: Jose Silverman on 10-02-2022 Eosinophils (Bld) [#/Vol] 0.3 10*3/uL Normal 0.0-0.45 [facility] Comment on above: Performed By: #### C BC, CMP, ETOH #### [address] Automated erythrocytes count in urine sediment (number/area)Ordered By: Jose Silverman on 10-02-2022 RBC Auto (Urine sed) [#/Area] 0-1 [HPF] 0-4 [facility] Automated leukocytes count i n urine sediment (number/area)Ordered By: Jose Silverman on 10-02-2022 WBC Auto (Urine sed) [#/Area] 10-19 [HPF] 0-4 [facility] Automated monocyte %Ordered By: Jose Silverman on 10-02-2022 Monocytes/100 WBC (Bld) 5.7 % Normal . F [facility] Comment on above: Performed By: #### C BC, CMP, ETOH #### [facility] [address] Automated neutrophil %Ordere d By: Jose Silverman on 10-02-2022 Neutrophils/100 WBC (Bld) 68.7 % Normal . [facility] Comment on above: Performed By: #### C BC, CMP, ETOH #### [facility] [address] Barbiturates [Presence] in U rine by Screen methodOrdered By: Jose Silverman on 10-02-2022 Barbiturates Screen Ql (U) Negative Negative [facility] Benzodiazepines Screen Ql (U )Ordered By: Jose Silverman on 10-02-2022 Benzodiazepines Ql (U) Negative Negative [facility] Benzoylecgonine [Presence] i n Urine by Screen methodOrdered By: Jose Silverman on 10-02-2022 Benzoylecgonine Screen Ql (U) Negative Negative [facility] Bilirubin Test strip Ql (U)O rdered By: Jose Silverman on 10-02-2022 Bilirubin Ql (U) Negative Negative [facility] Bilirubin.total [Mass/volume ] in Serum or PlasmaOrdered By: Jose Silverman on 10-02-2022 Bilirubin [Mass/Vol] 0.3 mg/dL Normal 0.3-1.0 [facility] Comment on above: Performed By: #### C BC, CMP, ETOH #### [facility] [address] [place] [address] Calcium [Mass/volume] in Ser um or PlasmaOrdered By: Jose Silverman on 10-02-2022 Calcium [Mass/Vol] 9.6 mg/dL Normal 8.6-10.3 [facility] Comment on above: Performed By: #### C BC, CMP, ETOH #### [facility] [address] [place] [address] [place] Cannabinoids [Presence] in U rine by Screen methodOrdered By: Jose Silverman on 10-02-2022 Cannabinoids Screen Ql (U) Negative Negative [facility] Comment on above: These are unconfirme d results and should not be used for legal purposes. Drug Cut-Off Concentration: AMPH 1000 ng/mL MIAH 200 ng/mL AYAN 200 ng/mL COCM 300 ng/mL OP 300 ng/mL PCP 25 ng/mL THC 20 ng/mL Carbon dioxide, total [Moles /volume] in Serum or PlasmaOrdered By: Jose Silverman on 10-02-2022 CO2 [Moles/Vol] 27.2 mmol/L Normal 21.0-31.0 [facility] Comment on above: Performed By: #### C BC, CMP, ETOH #### [address] Chloride [Moles/volume] in S brian or PlasmaOrdered By: Jose Silverman on 10-02-2022 Chloride [Moles/Vol] 101 mmol/L Normal 98-107 [facility] Comment on above: Performed By: #### C BC, CMP, ETOH #### [address] Color Auto (U)Ordered By: Loli Silverman on 10-02-2022 Color (U) Yellow Yellow [facility] Complete Blood Count Auto Di ffon 10-02-2022 Mean Corpuscular HGB Conc 32.0 g/dL Normal 32.0-35.0 [facility] Comment on above: Performed By: #### C BC, CMP, ETOH #### [place] [address] [place] Monocytes/100 WBC (Bld) 17.72 % Normal 0.00-20.00 [facility] Comment on above: Performed By: #### C BC, CMP, ETOH #### [address] NRBC% 0.0 /100{WBC} Normal 0-0.5 [facility] Comment on above: Performed By: #### C BC, CMP, ETOH #### [address] Comprehensive Metabolic Pane tung 10-02-2022 Albumin [Mass/Vol] 5.0 g/dL Normal 3.5-5.7 [facility] Comment on above: Performed By: #### C BC, CMP, ETOH #### [place] [address] Creatinine Clr Calc Pharmacy 107.48 Normal [facility] Comment on above: Result Comment: PERF ORMED BY: [place] [address] PATHOLOGIST BATTER OUT ASHELY CAREY M.D. Performed By: #### C BC, CMP, ETOH #### [address] GFR/1.73 sq M.predicted MDRD (S/P/Bld) [Vol rate/Area] mL/min/{1.73_m2} [facility] Comment on above: Performed By: #### C BC, CMP, ETOH #### [address] Creatinine [Mass/volume] in Serum or PlasmaOrdered By: Jose Silverman on 10-02-2022 Creatinine [Mass/Vol] 0.89 mg/dL Normal 0.60-1.20 [facility] Comment on above: Performed By: #### C BC, CMP, ETOH #### [place] [address] [place] Dipstick and Microscopicon 0 10-02-2022 Appearance (U) Clear Normal Clear [facility] Comment on above: Order Comment: Name Collection Type:: Clean-Voided Midstream Performed By: #### U RDS, ADDONUAPLUS, CUU, UHCG #### [place] [address] [place] Bacteria,Urine 2+ High None Seen [facility] Comment on above: Order Comment: Name Collection Type:: Clean-Voided Midstream Performed By: #### U RDS, ADDONUAPLUS, CUU, UHCG #### [place] [address] [place] Bilirubin,Urine Negative Normal Negative [facility] Comment on above: Order Comment: Name Collection Type:: Clean-Voided Midstream Performed By: #### U RDS, ADDONUAPLUS, CUU, UHCG #### [place] [address] [place] Color (U) Yellow Normal Yellow [facility] Comment on above: Order Comment: Name Collection Type:: Clean-Voided Midstream Performed By: #### U RDS, ADDONUAPLUS, CUU, UHCG #### [facility] [address] [place] [address] Glucose Ql (U) Normal Normal Normal [facility] Comment on above: Order Comment: Name Collection Type:: Clean-Voided Midstream Performed By: #### U RDS, ADDONUAPLUS, CUU, UHCG #### [address] Hyaline Casts,Urine 0-8 Normal 0-8 [facility] Comment on above: Order Comment: Name Collection Type:: Clean-Voided Midstream Performed By: #### U RDS, ADDONUAPLUS, CUU, UHCG #### [address] Ketones Ql (U) Negative Normal Negative [facility] Comment on above: Order Comment: Name Collection Type:: Clean-Voided Midstream Performed By: #### U RDS, ADDONUAPLUS, CUU, UHCG #### [facility] [address] [place] [address] Leukocyte esterase Test strip Ql (U) 3+ High Negative [facility] Comment on above: Order Comment: Name Collection Type:: Clean-Voided Midstream Performed By: #### U RDS, ADDONUAPLUS, CUU, UHCG #### [facility] [address] [place] [address] [place] Nitrite,Urine Negative Normal Negative [facility] Comment on above: Order Comment: Name Collection Type:: Clean-Voided Midstream Performed By: #### U RDS, ADDONUAPLUS, CUU, UHCG #### [facility] [address] [place] [address] [place] Occult Blood,Urine Negative Normal Negative [facility] Comment on above: Order Comment: Name Collection Type:: Clean-Voided Midstream Performed By: #### U RDS, ADDONUAPLUS, CUU, UHCG #### [address] pH (U) 6.5 [pH] Normal 5.0-9.0 [facility] Comment on above: Order Comment: Name Collection Type:: Clean-Voided Midstream Performed By: #### U RDS, ADDONUAPLUS, CUU, UHCG #### [address] Protein,Urine Negative Normal Negative [facility] Comment on above: Order Comment: Name Collection Type:: Clean-Voided Midstream Performed By: #### U RDS, ADDONUAPLUS, CUU, UHCG #### [address] RBC LM.HPF (Urine sed) [#/Area] 0 /[HPF] Normal 0-4 [facility] Comment on above: Order Comment: Name Collection Type:: Clean-Voided Midstream Performed By: #### U RDS, ADDONUAPLUS, CUU, UHCG #### [address] Specificy [place],Urine 1.021 Normal 1.001-1.030 [facility] Comment on above: Order Comment: Name Collection Type:: Clean-Voided Midstream Performed By: #### U RDS, ADDONUAPLUS, CUU, UHCG #### [address] Squamous Epithelial Cell,Urine 10-19 High 0-2 [facility] Comment on above: Order Comment: Name Collection Type:: Clean-Voided Midstream Performed By: #### U RDS, ADDONUAPLUS, CUU, UHCG #### [place] [address] [place] Urobilinogen,Urine Normal Normal Normal [facility] Comment on above: Order Comment: Name Collection Type:: Clean-Voided Midstream Performed By: #### U RDS, ADDONUAPLUS, CUU, UHCG #### [place] [address] [place] WBC,Urine 10-19 High 0-4 [facility] Comment on above: Order Comment: Name Collection Type:: Clean-Voided Midstream Performed By: #### U RDS, ADDONUAPLUS, CUU, UHCG #### [address] Drug Screen,Urineon 10-03-19 Amphetamine Screen,Urine Negative Normal Negative [facility] Comment on above: Performed By: #### U RDS, ADDONUAPLUS, CUU, UHCG #### [address] Barbiturate Screen,Urine Negative Normal Negative [facility] Comment on above: Performed By: #### U RDS, ADDONUAPLUS, CUU, UHCG #### [address] Benzodiazepines Screen,Urine Negative Normal Negative [facility] Comment on above: Performed By: #### U RDS, ADDONUAPLUS, CUU, UHCG #### [address] Cannabinoid Screen,Urine Negative Normal Negative [facility] Comment on above: Result Comment: Thes e are unconfirmed results and should not be used for legal purposes. Drug Cut-Off Concentration: AMPH 1000 ng/mL MIAH 200 ng/mL AYAN 200 ng/mL COCM 300 ng/mL OP 300 ng/mL PCP 25 ng/mL THC 20 ng/mL PERFORMED BY: [place] [address] PATHOLOGIST BATTER OUT ASHELY CAREY M.D. Performed By: #### U RDS, ADDONUAPLUS, CUU, UHCG #### [place] [address] [place] Cocaine Screen,Urine Negative Normal Negative [facility] Comment on above: Performed By: #### U RDS, ADDONUAPLUS, CUU, UHCG #### [address] Opiate Screen,Urine Negative Normal Negative [facility] Comment on above: Performed By: #### U RDS, ADDONUAPLUS, CUU, UHCG #### [facility] [address] Phencyclidine Screen,Urine Negative Normal Negative [facility] Comment on above: Performed By: #### U RDS, ADDONUAPLUS, CUU, UHCG #### [address] Erythrocyte distribution wid th [Ratio] by Automated countOrdered By: Jose Silverman on 10-02-2022 Erythrocyte distribution width (RBC) [Ratio] 15.8 % High 11.9-15.3 [facility] Comment on above: Performed By: #### C BC, CMP, ETOH #### [place] [address] [place] Erythrocytes [#/volume] in B lood by Automated countOrdered By: Jose Silverman on 10-02-2022 RBC (Bld) [#/Vol] 5.31 10*6/uL High 3.60-5.00 [facility] Comment on above: Performed By: #### C BC, CMP, ETOH #### [address] Ethanol [Mass/volume] in Ser um or PlasmaOrdered By: Jose Silverman on 10-02-2022 Ethanol [Mass/Vol] mg/dL Normal [facility] Comment on above: Performed By: #### C BC, CMP, ETOH #### [facility] [address] [place] [address] Ethanol [Mass/Vol] TNP [facility] Comment on above: Test not performed Ethyl Alcohol Profileon 09-08 Percent Ethanol Not performed Normal [facility] Comment on above: Result Comment: PERF ORMED BY: [place] [address] PATHOLOGIST BATTER OUT ASHELY CAREY M.D. Performed By: #### C BC, CMP, ETOH #### [place] [address] [place] Glucose [Mass/volume] in Ser um or PlasmaOrdered By: Jose Silverman on 10-02-2022 Glucose [Mass/Vol] 98 mg/dL Normal 70-100 [facility] Comment on above: ADA recommended refe rence rangeRandom Glucose Reference Range is dependent on time and content of last meal. Glucose of more than 200 mg/dL in a nonstressed, ambulatory subject supports the diagnosis of Diabetes Mellitus. Result Comment: [place] om Glucose Reference Range is dependent on time and content of last meal. Glucose of more than 200 mg/dL in a nonstressed, ambulatory subject supports the diagnosis of Diabetes Mellitus. ADA recommended reference range Performed By: #### C BC, CMP, ETOH #### [place] [address] [place] HCG ( test) IA.rapi d Ql (U)Ordered By: Jose Silverman on 10-02-2022 HCG ( test) Ql (U) Negative [facility] HCG,Urineon 10-02-2022 Beta HCG ( test) Ql (U) Negative Normal [facility] Comment on above: Order Comment: Name Collection Type:: Clean-Voided Midstream Result Comment: PERF ORMED BY: [place] [address] PATHOLOGIST BATTER OUT ASHELY CRAEY M.D. Performed By: #### [facility] #### [address] Hematocrit [Volume Fraction] of Blood by Automated countOrdered By: Jose Silverman on 10-02-2022 Hematocrit (Bld) [Volume fraction] 41.7 % Normal 34.0-46.4 [facility] Comment on above: Performed By: #### C BC, CMP, ETOH #### [address] Hemoglobin [Mass/volume] in BloodOrdered By: Jose Silverman on 10-02-2022 Hemoglobin (Bld) [Mass/Vol] 13.3 g/dL Normal 11.8-15.4 [facility] Comment on above: Performed By: #### C BC, CMP, ETOH #### [address] [address] [place] Ketones Auto test strip (U) [Mass/Vol]Ordered By: Jose Silverman on 10-02-2022 Ketones (U) [Mass/Vol] Negative Negative [facility] Laboratory - UrinalysisOrder ed By: Jose Silverman on 10-02-2022 Hyaline casts LM Ql (Urine sed) 0-8 [LPF] 0-8 [facility] Leukocytes [#/volume] correc ruby for nucleated erythrocytes in Blood by Automated counOrdered By: Jose Silverman on 10-02-2022 WBC corrected for nucl RBC Auto (Bld) [#/Vol] 12.9 10*3/uL 3.8-11.6 [facility] Leukocytes [#/volume] in Blo od by Automated countOrdered By: Jose Silverman on 10-02-2022 WBC (Bld) [#/Vol] 12.9 10*3/uL High 3.8-11.6 [facility] Comment on above: Performed By: #### C BC, CMP, ETOH #### [address] Lymphocytes [#/volume] in Bl ood by Automated countOrdered By: Jose Silverman on 10-02-2022 Lymphocytes (Bld) [#/Vol] 3.0 10*3/uL Normal 1.00-4.8 [facility] Comment on above: Performed By: #### C BC, CMP, ETOH #### [place] [address] [place] Lymphocytes/100 leukocytes i n Blood by Automated countOrdered By: Jose Silverman on 10-02-2022 Lymphocytes/100 WBC (Bld) 23.1 % Normal . [facility] Comment on above: Performed By: #### C BC, CMP, ETOH #### [place] [address] [place] MCH [Entitic mass] by Automa ruby countOrdered By: Jose Silverman on 10-02-2022 MCH (RBC) [Entitic mass] 25.2 pg Normal 24.7-34.3 [facility] Comment on above: Performed By: #### C BC, CMP, ETOH #### [facility] [address] MCHC Auto (RBC) [Mass/Vol]Or dered By: Jose Silverman on 10-02-2022 MCHC (RBC) [Mass/Vol] 32.0 g/dL 32.0-35.0 [facility] MCV [Entitic volume] by Auto mated countOrdered By: Jose Silverman on 10-02-2022 MCV (RBC) [Entitic vol] 78.5 fL Low 80-100 F [facility] Comment on above: Performed By: #### C BC, CMP, ETOH #### [facility] [address] [place] [address] Monocyte distribution width [Entitic volume] in Blood by AutomatedOrdered By: Jose Silverman on 10-02-2022 Monocyte distribution width Auto (Bld) [Entitic vol] 17.72 % 0.00-20.00 [facility] Neutrophils [#/volume] in Bl ood by Automated countOrdered By: Jose Silverman on 10-02-2022 Neutrophils (Bld) [#/Vol] 8.9 10*3/uL High 1.8-7.7 [facility] Comment on above: Performed By: #### C BC, CMP, ETOH #### [facility] [address] [place] [address] Nitrite Test strip Ql (U)Ord ered By: Jose Silverman on 10-02-2022 Nitrite Ql (U) Negative Negative [facility] No Panel InformationOrdered By: Jose Silverman on 10-02-2022 Estimated GFR (CKD-EPI) > 60.0 mL/Min [facility] Creatinine Clearance (Chem 107.48 [facility] Nucleated erythrocytes [Pres ence] in Blood by Automated countOrdered By: Jose Silverman on 10-02-2022 Nucleated RBC Auto Ql (Bld) 0.0 /100{WBC} 0-0.5 [facility] Opiates [Presence] in Urine by Screen methodOrdered By: Jose Silverman on 10-02-2022 Opiates Screen Ql (U) Negative Negative [facility] Phencyclidine Screen Ql (U)O rdered By: Jose Silverman on 10-02-2022 Phencyclidine Ql (U) Negative Negative [facility] Platelet mean volume [Entiti c volume] in Blood by Automated countOrdered By: Jose Silverman on 10-02-2022 Platelet mean volume (Bld) [Entitic vol] 7.7 fL Normal 6.3-10.7 [facility] Comment on above: Performed By: #### C BC, CMP, ETOH #### [facility] [address] Platelets [#/volume] in Bloo d by Automated countOrdered By: Jose Silverman on 10-02-2022 Platelets (Bld) [#/Vol] 342 10*3/uL Normal 150-450 [facility] Comment on above: Performed By: #### C BC, CMP, ETOH #### [facility] [address] Potassium [Moles/volume] in Serum or PlasmaOrdered By: Jose Silverman on 10-02-2022 Potassium [Moles/Vol] 3.8 mmol/L Normal 3.5-5.1 [facility] Comment on above: Performed By: #### C BC, CMP, ETOH #### [facility] [address] Protein Auto test strip (U) [Mass/Vol]Ordered By: Jose Silverman on 10-02-2022 Protein (U) [Mass/Vol] Negative Negative [facility] Protein [Mass/volume] in Ser um or PlasmaOrdered By: Jose Silverman on 10-02-2022 Protein [Mass/Vol] 8.7 g/dL Normal 6.4-8.9 [facility] Comment on above: Performed By: #### C BC, CMP, ETOH #### [facility] [address] Serum globulin measurement b y calculation (mass/volume)Ordered By: Jose Silverman on 10-02-2022 Globulin (S) [Mass/Vol] 3.7 g/dL Normal [facility] Comment on above: Performed By: #### C BC, CMP, ETOH #### [facility] [address] Serum or plasma albumin/glob ulin mass ratioOrdered By: Jose Silverman on 10-02-2022 Albumin/Globulin [Mass ratio] 1.4 {ratio} Normal [facility] Comment on above: Performed By: #### C PAULETTE POLLOCK, ETOH #### [address] Serum or plasma anion gap de terminationOrdered By: Jose Silverman on 10-02-2022 Anion gap [Moles/Vol] 12.6 mmol/L Normal 6.0-15.0 [facility] Comment on above: Performed By: #### C MARIS, CMP, ETOH #### [address] Sodium [Moles/volume] in Ser um or PlasmaOrdered By: Jose Silverman on 10-02-2022 Sodium [Moles/Vol] 137 mmol/L Normal 136-145 [facility] Comment on above: Performed By: #### C PAULETTE POLLOCK, ETOH #### [address] Specific gravity Auto test s trip (U) [Rel density]Ordered By: Jose Silverman on 10-02-2022 Specific gravity (U) [Rel density] 1.021 1.001-1.030 [facility] Squamous epithelial cells de tection in urine sediment by light microscopyOrdered By: Jose Silverman on 10-02-2022 Epithelial cells.squamous LM Ql (Urine sed) 10-19 [HPF] 0-2 [facility] Urea nitrogen [Mass/volume] in Serum or PlasmaOrdered By: Jose Silverman on 10-02-2022 Urea nitrogen [Mass/Vol] 18 mg/dL Normal 7-25 [facility] Comment on above: Performed By: #### C MARIS CMP, ETOH #### [address] Urine Cultureon 10-02-2022 Bacteria identified Cx Nom (U) ORGANISM: Strep agalactiae - (group b) (O:STRAGA) Covel Count 50,000 PERFORMED BY: [place] [address] PATHOLOGIST BATTER OUT ASHELY CAREY M.D. Normal [facility] Comment on above: Performed By: #### U CINDY, KAPIL, KEELEYU, UHCG #### [facility] [address] Urine bacteria detection by automated methodOrdered By: Jose Silverman on 10-02-2022 Bacteria Auto Ql (U) 2+ None Seen [facility] Urine clarity by refractomet ry automatedOrdered By: Jose Silverman on 10-02-2022 Clarity Refractometry automated (U) Clear Clear [facility] Urine glucose measurement by automated test strip (mass/volume)Ordered By: Jose Silverman on 10-02-2022 Glucose Auto test strip (U) [Mass/Vol] Normal mg/dL Normal [facility] Urine hemoglobin detection b y automated test stripOrdered By: Jose Silverman on 10-02-2022 Hemoglobin Auto test strip Ql (U) Negative Negative [facility] Urine leukocyte esterase det ection by automated test stripOrdered By: Jose Silverman on 10-02-2022 Leukocyte esterase Auto test strip Ql (U) 3+ Negative [facility] Urobilinogen Auto test strip (U) [Mass/Vol]Ordered By: Jose Silverman on 10-02-2022 Urobilinogen (U) [Mass/Vol] Normal mg/dL Normal [facility] pH Auto test strip (U)Ordere d By: Jose Silverman on 10-02-2022 pH (U) 6.5 [pH] 5.0-9.0 [facility] Quick Strepon 09-25-2022 S. pyogenes Org specific cx Ql (Throat) Negative [facility] Other Quick Strep [facility] Other CHEMISTRYOrdered By: SYSTEM SYSTEM on 09-06-2022 [...] rate/Area] mL/min/1.73 m2 Normal >=59mL/min/1 .73 m2 [facility] Chem S GFR/1.73 sq M.predicted among non-blacks MDRD (S/P/Bld) [Vol rate/Area] mL/min/1.73 m2 Normal >=59mL/min/1 .73 m2 [facility] Chem S Glucose [Mass/Vol] 82 mg/dL Normal [...] AM) Normal Negative [facility] UA Auto SS [place].plasma/[place].R BC (Bld) [Mass ratio] >30 /HPF Invalid [...] [facility] UA Auto SS Urobilinogen Qn (U) [id number] {Georgina'U}/dL Normal 0.0 - 1.0 EU/dL [facility] UA Auto SS WBC Auto Ql (U) Negative (09/06/22 11:19 AM) Normal Negative [facility] UA Auto SS WBC LM.HPF (Urine sed) [#/Area] 0-5 /HPF Normal 0-5/HPF [facility] UA Auto SS BLOOD BANKOrdered By: John Montague on 08-14-2022 ABO/Rh Interp Positive Invalid Interpretation Code [facility] BB Subsection CHEMISTRYOrdered By: SYSTEM SYSTEM on [...] mg/dL Normal 0.0 - 1 .1 mg/dL [facility] Bilirubin.direct [Mass/Vol] 0.1 mg/dL Normal 0.1 [...] rate/Area] mL/min/1.73 m2 Normal >=59mL/min/1 .73 m2 [facility] Chem S Globulin (S) [Mass/Vol] 3.2 g/dL Normal 1.4 - 4.0 gm/dL [facility] Remisol Glucose [Mass/Vol] 111 mg/dL Normal 55 - 199 mg/dL [facility] Remisol Lipase [Catalytic activity/Vol] 38 U/L Normal 13 - 58 unit/L [facility] Remisol Potassium [Moles/Vol] 3.7 mmol/L Normal [...] PM) Normal Negative [facility] UA Auto SS [place].plasma/[place].R BC (Bld) [Mass ratio] 0-3 /HPF Normal [...] [facility] UA Auto SS Urobilinogen Qn (U) 0.6094976 {Georgina'U}/dL Normal 0.0 - 1.0 EU/dL [facility] UA Auto SS WBC Auto Ql (U) Negative (08/14/22 7:29 PM) Normal Negative [facility] UA Auto SS WBC LM.HPF (Urine sed) [#/Area] 0-5 /HPF Normal 0-5/HPF [facility] UA Auto SS CHLAMYDIA/GONOCOCCUS ALFREDO (SW AB/URINE/PAPon 07-15-2022 Chlamydia trachomatis, ALFREDO Negative Normal Negative [facility] Comment on above: Performed By: #### C T/NGNA #### [facility] [address] [place] [address] Dr. Cyril Hendricks Neisseria gonorrhoeae, ALFREDO Negative Normal Negative [facility] Comment on above: Performed By: #### C T/NGNA #### [facility] [address] [place] [address] Dr. Cyril Hendricks VAGINITIS/VAGINOSIS DNA PROB Maurice 07-13-2022 Krista species Negative Normal Negative [facility] Comment on above: Performed By: #### U MICRO, UACSIND #### [facility] [address] [address] [address] Cyril Hendricks Gardnerella vaginalis Positive Abnormal Negative [facility] Comment on above: Performed By: #### U MICRO, UACSIND #### [facility] [address] [place] [address] Dr. Cyril Hendricks Trichomonas vaginalis Negative Normal Negative [facility] Comment on above: Performed By: #### U MICRO, UACSIND #### [facility] [address] [place] [address] Dr. Cyril Hendricks COVID/FLU RT-PCRon 3 SARS-CoV-2 (COVID-19) RNA ALFREDO+probe Ql (Unsp spec) Negative [facility] [employer] Other COVID/FLU RT-PCR Negative [facility] [employer] Other Quick Strepon 06-24-2022 S. pyogenes Org specific cx Ql (Throat) Negative [facility] [employer] Other Quick Strep [facility] [employer] Other CBC AUTO DIFFon 01-08-2022 BASO # 0.1 103/ul Normal 0.0-0.1 [facility] Comment on above: Performed By: #### C BC #### [facility] [address] [place] [address] Dr. Cyril Hendricks Basophils/100 WBC (Bld) 0.4 % Normal 0.2-2.0 [facility] Comment on above: Performed By: #### C BC #### [facility] [address] [place] [address] Dr. Cyril Hendricks EO # 0.1 103/ul Normal 0.0-0.7 [facility] Comment on above: Performed By: #### C BC #### [facility] [address] [place] [address] Dr. Cyril Hendricks Eosinophils/100 WBC (Bld) 0.9 % Normal 0.9-7.0 [facility] Comment on above: Performed By: #### C BC #### [facility] [address] [place] [address] Dr. Cyril Hendricks Erythrocyte distribution width (RBC) [Ratio] 12.3 % Normal 11.0-15.0 [facility] Comment on above: Performed By: #### C BC #### [facility] [address] [place] [address] Dr. Cyril Hendricks Hematocrit (Bld) [Volume fraction] 30.0 % Critically low 36.0-48.0 [facility] Comment on above: Performed By: #### C BC #### [facility] [address] [place] [address] Dr. Cyril Hendricks Hemoglobin (Bld) [Mass/Vol] 10.2 g/dL Critically low 12.0-16.0 [facility] Comment on above: Performed By: #### C BC #### [facility] [address] [place] [address] Dr. Cyril Hendricks IG # 0.05 10e3/ul Critically high 0.00-0.03 [facility] Comment on above: Performed By: #### C BC #### [facility] [address] [place] [address] Dr. Cyril Hendricks IG % 0.4 % Normal 0.0-0.5 [facility] [facility] Comment on above: Performed By: #### C BC #### [facility] [address] [place] [address] Dr. Cyril Hendricks LYMPH # 2.8 103/ul Normal 1.2-3.8 [facility] Comment on above: Performed By: #### C BC #### [facility] [address] [place] [address] Dr. Cyril Hendricks Lymphocytes/100 WBC (Bld) 19.7 % Critically low 20.5-60.0 [facility] Comment on above: Performed By: #### C BC #### [facility] [address] [place] [address] Dr. Cyril Hendricks MANUAL DIFF REQ NO Normal [facility] Comment on above: Performed By: #### C BC #### [facility] [address] [place] [address] Dr. Cyril Hendricks MCH (RBC) [Entitic mass] 30.6 pg Normal 26.7-34.0 [facility] Comment on above: Performed By: #### C BC #### [facility] [address] [place] [address] Dr. Cyril Hendricks MCHC (RBC) [Mass/Vol] 34.0 g/dL Normal 29.9-35.2 [facility] Comment on above: Performed By: #### C BC #### [facility] [address] [place] [address] Dr. Cyril Hendricks MCV (RBC) [Entitic vol] 90.1 fL Normal 81.0-99.0 [facility] Comment on above: Performed By: #### C BC #### [facility] [address] [place] [address] Dr. Cyril Hendricks MONO # 0.8 103/ul Normal 0.3-0.8 [facility] Comment on above: Performed By: #### C BC #### [facility] [address] [place] [address] Dr. Cyril Hendricks Monocytes/100 WBC (Bld) 5.9 % Normal 1.7-12.0 [facility] Comment on above: Performed By: #### C BC #### [facility] [address] [place] [address] Dr. Cyril Hendricks NEUT # 10.3 103/ul Critically high 1.4-6.5 [facility] Comment on above: Performed By: #### C BC #### [facility] [address] [place] [address] Dr. Cyril Hendricks Neutrophils/100 WBC (Bld) 72.7 % Normal 43.0-75.0 [facility] Comment on above: Performed By: #### C BC #### [facility] [address] [place] [address] Dr. Cyril Hendricks Platelet mean volume (Bld) [Entitic vol] 9.8 fL Normal 9.5-13.5 [facility] Comment on above: Performed By: #### C BC #### [facility] [address] [place] [address] Dr. Cyril Hendricks PLT 207 103/ul Normal 150-450 [facility] Comment on above: Performed By: #### C BC #### [facility] [address] [place] [address] Dr. Cyril Hendricks RBC 3.33 106/ul Critically low 4.20-5.40 [facility] Comment on above: Performed By: #### C BC #### [facility] [address] [place] [address] Dr. Cyril Hendricks WBC 14.2 103/ul Critically high 4.0-11.0 [facility] Comment on above: Performed By: #### C BC #### [facility] [address] [place] [address] Dr. Cyril Hendricks CBC AUTO DIFFon 01-07-2022 BASO # 0.1 103/ul Normal 0.0-0.1 [facility] Comment on above: Performed By: #### U MICRO, UACSIND #### [facility] [address] [place] [address] Dr. Cyril Hendricks Basophils/100 WBC (Bld) 0.5 % Normal 0.2-2.0 [facility] Comment on above: Performed By: #### U MICRO, UACSIND #### [facility] [address] [place] [address] Dr. Cyril Hendricks EO # 0.1 103/ul Normal 0.0-0.7 [facility] Comment on above: Performed By: #### U MICRO, UACSIND #### [facility] [address] [place] [address] Dr. Cyril Hendricks Eosinophils/100 WBC (Bld) 0.9 % Normal 0.9-7.0 [facility] Comment on above: Performed By: #### U MICRO, UACSIND #### [facility] [address] [place] [address] Dr. Cyril Hendricks Erythrocyte distribution width (RBC) [Ratio] 12.4 % Normal 11.0-15.0 [facility] Comment on above: Performed By: #### U MICRO, UACSIND #### [facility] [address] [place] [address] Dr. Cyril Hendricks Hematocrit (Bld) [Volume fraction] 34.3 % Critically low 36.0-48.0 [facility] Comment on above: Performed By: #### U MICRO, UACSIND #### [facility] [address] [place] [address] Dr. Cyril Hendricks Hemoglobin (Bld) [Mass/Vol] 11.6 g/dL Critically low 12.0-16.0 [facility] Comment on above: Performed By: #### U MICRO, UACSIND #### [facility] [address] [place] [address] Dr. Cyril Hendricks IG # 0.06 10e3/ul Critically high 0.00-0.03 [facility] Comment on above: Performed By: #### U MICRO, UACSIND #### [facility] [address] [place] [address] Dr. Cyril Hendricks IG % 0.4 % Normal 0.0-0.5 [facility] Comment on above: Performed By: #### U MICRO, UACSIND #### [facility] [address] [place] [address] Dr. Cyril Hendricks LYMPH # 3.1 103/ul Normal 1.2-3.8 [facility] Comment on above: Performed By: #### U MICRO, UACSIND #### [facility] [address] [place] [address] Dr. Cyril Hendricks Lymphocytes/100 WBC (Bld) 20.4 % Critically low 20.5-60.0 [facility] Comment on above: Performed By: #### U MICRO, UACSIND #### [facility] [address] [address] [address] Cyril Hendricks MANUAL DIFF REQ NO Normal [facility] Comment on above: Performed By: #### U MICRO, UACSIND #### [facility] [address] [address] [address] Cyril Hendricks MCH (RBC) [Entitic mass] 30.6 pg Normal 26.7-34.0 [facility] Comment on above: Performed By: #### U MICRO, UACSIND #### [facility] [address] [address] [address] Cyril Hendricks MCHC (RBC) [Mass/Vol] 33.8 g/dL Normal 29.9-35.2 [facility] Comment on above: Performed By: #### U MICRO, UACSIND #### [facility] [address] [place] [address] Dr. Cyril Hendricks MCV (RBC) [Entitic vol] 90.5 fL Normal 81.0-99.0 [facility] Comment on above: Performed By: #### U MICRO, UACSIND #### [facility] [address] [place] [address] Dr. Cyril Hendricks MONO # 0.9 103/ul Critically high 0.3-0.8 [facility] Comment on above: Performed By: #### U MICRO, UACSIND #### [facility] [address] [place] [address] Dr. Cyril Hendricks Monocytes/100 WBC (Bld) 6.2 % Normal 1.7-12.0 [facility] Comment on above: Performed By: #### U MICRO, UACSIND #### [facility] [address] [place] [address] Dr. Cyril Hendricks NEUT # 10.9 103/ul Critically high 1.4-6.5 [facility] Comment on above: Performed By: #### U MICRO, UACSIND #### [facility] [address] [place] [address] Dr. Cyril Hendricks Neutrophils/100 WBC (Bld) 71.6 % Normal 43.0-75.0 [facility] Comment on above: Performed By: #### U MICRO, UACSIND #### [facility] [address] [address] [address] Cyril Hendricks Platelet mean volume (Bld) [Entitic vol] 11.1 fL Normal 9.5-13.5 [facility] Comment on above: Performed By: #### U MICRO, UACSIND #### [facility] [address] [address] [address] Cyril Hendricks PLT 240 103/ul Normal 150-450 [facility] Comment on above: Performed By: #### U MICRO, UACSIND #### [facility] [address] [place] [address] Dr. Cyril Hendricks RBC 3.79 106/ul Critically low 4.20-5.40 [facility] Comment on above: Performed By: #### U MICRO, UACSIND #### [facility] [address] [address] [address] Cyril Hendricks WBC 15.3 103/ul Critically high 4.0-11.0 [facility] Comment on above: Performed By: #### U MICRO, UACSIND #### [facility] [address] [place] [address] Dr. Cyril Hendricks [facility]on SARS-CoV-2 (COVID-19) RNA ALFREDO+probe Ql (Unsp spec) Not detected Normal NOT DETECTED [facility] Comment on above: Result Comment: [...] for this test is supported by the [place] of Health and Human Service's declaration that [...] used). Performed By: #### H CVPCRR #### [facility] [address] [place] [address] Dr. Cyril Hendricks DRUG SCREEN RAPID (URINE)on 01-07-2022 AMP Negative Normal NEGATIVE [facility] Comment on above: Performed By: #### U MICRO, UACSIND #### [facility] [address] [place] [address] Dr. Cyril Hendricks BAR Negative Normal NEGATIVE [facility] Comment on above: Performed By: #### U MICRO, UACSIND #### [facility] [address] [place] [address] Dr. Cyril Hendricks BUP Negative Normal NEGATIVE [facility] Comment on above: Performed By: #### U MICRO, UACSIND #### [facility] [address] [place] [address] Dr. Cyril Hendricks BZO Negative Normal NEGATIVE [facility] Comment on above: Performed By: #### U MICRO, UACSIND #### [facility] [address] [place] [address] Dr. Cyril Hendricks DARIN Negative Normal NEGATIVE [facility] Comment on above: Performed By: #### U MICRO, UACSIND #### [facility] [address] [place] [address] Dr. Cyril Hendricks CUT-OFFS SEE BELOW Normal [facility] Comment on above: Result Comment: [...] Performed By: #### U MICRO, UACSIND #### [facility] [address] [address] [address] Cyril Hendricks DRUG CUT HEADER DRUG CLASS TEST SYSTEM CUT-OFF CONCENTRATIONS ARE FOLLOWS: Normal [facility] Comment on above: Performed By: #### U MICRO, UACSIND #### [facility] [address] [address] [address] Cyril Hendricks mAMP Negative Normal NEGATIVE [facility] Comment on above: Performed By: #### U MICRO, UACSIND #### [facility] [address] [address] [address] Cyril Hendricks MTD Negative Normal NEGATIVE [facility] Comment on above: Performed By: #### U MICRO, UACSIND #### [facility] [address] [address] [address] Cyril Hendricks OPI Negative Normal NEGATIVE [facility] Comment on above: Performed By: #### U MICRO, UACSIND #### [facility] [address] [address] [address] Cyril Hendricks OXY Negative Normal NEGATIVE [facility] Comment on above: Performed By: #### U MICRO, UACSIND #### [facility] [address] [address] [address] Cyril Hendricks PCP Negative Normal NEGATIVE [facility] Comment on above: Performed By: #### U MICRO, UACSIND #### [facility] [address] [address] [address] Cyril Hendricks PPX Negative Normal NEGATIVE [facility] Comment on above: Performed By: #### U MICRO, UACSIND #### [facility] [address] [place] [address] Dr. Cyril Hendricks TCA Negative Normal NEGATIVE [facility] Comment on above: Performed By: #### U MICRO, UACSIND #### [facility] [address] [address] [address] Cyril Hendricks THC Negative Normal NEGATIVE [facility] Comment on above: Performed By: #### U MICRO, UACSIND #### [facility] [address] [address] [address] Cyril Hendricks TYPE AND SCREENon 01-07-2022 TYPE AND SCREEN Negative Normal [facility] Comment on above: Performed By: #### H CVPCRR #### [facility] [address] [address] [address] Cyril Hendricks CULTURE URINEon 12-29-2021 CULTURE URINE Culture Observations: NO GROWTH. Normal [facility] Comment on above: Performed By: #### U RCX #### [facility] [address] [address] [address] 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 Cyril Hendricks Clarity (U) SL CLOUDY Abnormal CLEAR [facility] Comment on above: Performed By: #### U MICRO, UACSIND #### [facility] [address] [address] [address] Cyril Hendricks Color (U) LT. YELLOW Normal YELLOW [facility] Comment on above: Performed By: #### U MICRO, UACSIND #### [facility] [address] [address] [address] Cyril Hendricks Glucose Ql (U) Negative Normal NEGATIVE [facility] Comment on above: Performed By: #### U MICRO, UACSIND #### [facility] [address] [address] [address] Cyril Hendricks Hemoglobin Ql (U) Negative Normal NEGATIVE [facility] Comment on above: Performed By: #### U MICRO, UACSIND #### [facility] [address] [address] [address] Cyril Hendricks Ketones Ql (U) Negative Normal NEGATIVE [facility] Comment on above: Performed By: #### U MICRO, UACSIND #### [facility] [address] [address] [address] Cyril Hendricks LEUKOCYTES LARGE Abnormal NEGATIVE [facility] Comment on above: Performed By: #### U MICRO, UACSIND #### [facility] [address] [address] [address] Cyril Hendricks Nitrite Ql (U) Negative Normal NEGATIVE [facility] Comment on above: Performed By: #### U MICRO, UACSIND #### [facility] [address] [address] [address] Cyril Hendricks pH (U) 6.5 [pH] Normal 5-9 [facility] Comment on above: Performed By: #### U MICRO, UACSIND #### [facility] [address] [place] [address] Dr. Cyril Hendricks SPEC GRAVITY 1.010 Normal 1.005-<=1.02 5 [facility] Comment on above: Performed By: #### U MICRO, UACSIND #### [facility] [address] [place] [address] Dr. Cyril Hendricks UA PROTEIN Negative Normal NEGATIVE/ TRACE [facility] Comment on above: Performed By: #### U MICRO, UACSIND #### [facility] [address] [place] [address] Dr. Cyril Hendricks UR MICRO IND INDICATED Normal [facility] Comment on above: Performed By: #### U MICRO, UACSIND #### [facility] [address] [place] [address] Dr. Cyril Hendricks Urobilinogen Qn (U) 0.2 {Georgina'U}/dL Normal 0.2 - 1. 0 [facility] Comment on above: Performed By: #### U MICRO, UACSIND #### [facility] [address] [place] [address] Dr. Cyril Hendricks URINE MICROSCOPIC ONLYon BACTERIA SMALL Abnormal NONE SEEN [facility] Comment on above: Performed By: #### U MICRO, UACSIND #### [facility] [address] [place] [address] Dr. Cyril Hendricks Bacteria identified Cx Nom (U) INDICATED Normal [facility] Comment on above: Performed By: #### U MICRO, UACSIND #### [facility] [address] [address] [address] Cyril Hendricks CAST NONE SEEN Normal NONE SEEN [facility] Comment on above: Performed By: #### U MICRO, UACSIND #### [facility] [address] [place] [address] Dr. Cyril Hendricks Crystals LM Nom (Urine sed) NONE SEEN Normal NONE SEEN [facility] Comment on above: Performed By: #### U MICRO, UACSIND #### [facility] [address] [address] [address] Cyril Hendricks Epithelial cells LM Ql (Urine sed) MANY Abnormal NONE SEEN /RARE [facility] Comment on above: Performed By: #### U MICRO, UACSIND #### [facility] [address] [place] [address] Dr. Cyril Hendricks MUCOUS NONE SEEN Normal NONE SEEN [facility] Comment on above: Performed By: #### U MICRO, UACSIND #### [facility] [address] [place] [address] Dr. Cyril Hendricks RBC 0-2 Normal 0-2 [facility] Comment on above: Performed By: #### U MICRO, UACSIND #### [facility] [address] [place] [address] Dr. Cyril Hendricks WBC 10-20 Abnormal NONE SEEN [facility] Comment on above: Performed By: #### U MICRO, UACSIND #### [facility] [address] [place] [address] Dr. Cyril Hendricks GROUP B STREP CULTUREon 12-07 S. agalactiae Ag Ql (Unsp spec) Culture Observations: NEGATIVE FOR GROUP B STREPTOCOCCUS. Normal [facility] Comment on above: Performed By: #### G BSCX #### [facility] [address] [place] [address] Dr. Cyril Hendricks SSAon 12-13-2021 SSA <0.3 Normal <7.0 [facility] Comment on above: Result Comment: Reference Range: <7.0 Negative 7.0-10.0 Equivocal >10.0 Positive Performed By: #### S SARO, TSH, FT4, SSBLA #### [employer] [address] [place] [address] [id number] Print Line Inspector: Homer Hoffman MD SSBon 12-13-2021 SSB <0.3 Normal <7.0 [facility] Comment on above: Result Comment: Reference Range: <7.0 Negative 7.0-10.0 Equivocal >10.0 Positive Performed By: #### S SARO, TSH, FT4, SSBLA #### [employer] [address] [place] [address] [phone] Print Line Inspector: Homer Hoffman MD No Panel Informationon 12-12 [facility] T4, Freeon 12-12-2021 Thyroxine, Free 0.98 ng/dL 0.93 - 1.70 ng/dL [facility] TSHon 12-12-2021 TSH Qn 4.35 m[IU]/L [facility] Thyroid Stim. Horm.on 2021 Thyroid Stim. Horm. 4.35 uIU/mL Normal 0.30-5.00 [facility] Comment on above: Performed By: #### S SARO, TSH, FT4, SSBLA #### [employer] [address] [place] [address] [phone] Print Line Inspector: Homer Hoffman MD Thyroxine, Freeon 12-12-2021 Thyroxine, Free 0.98 ng/dL Normal 0.93-1.70 [facility] Comment on above: Performed By: #### S SARO, TSH, FT4, SSBLA #### [employer] [address] [place] [address] [id number] Print Line Inspector: Homer Hoffman MD US PREG BIOPHY W [...] by: SOFIA KABA Date: 2021-11-27 13:55 Normal [facility] COVID + FLU Quick Testingon 11-13-2021 SARS-CoV-2 (COVID-19) RNA ALFREDO+probe Ql (Unsp spec) Negative [facility] [employer] Other COVID + FLU Quick Testing Negative [facility] [employer] Other GLUCOSE - 1HRon 10-23-2021 Glucose [Mass/Vol] 83 mg/dL Normal 74-106 [facility] Comment on above: Performed By: #### G LU1HR #### [facility] [address] [place] [address] Dr. Cyril Hendricks CHLAMYDIA/GONOCOCCUS ALFREDO (SW AB/URINE/PAPon 10-05-2021 Chlamydia trachomatis, ALFREDO Negative Normal Negative [facility] Comment on above: Performed By: #### C T/NGNA #### [facility] [address] [place] [address] Dr. Cyril Hendricks Neisseria gonorrhoeae, ALFREDO Negative Normal Negative [facility] Comment on above: Performed By: #### C T/NGNA #### [facility] [address] [place] [address] Dr. Cyril Hendricks VAGINITIS/VAGINOSIS DNA PROB Maurice 10-04-2021 Krista species Positive Abnormal Negative [facility] Comment on above: Performed By: #### H CVPCRR #### [facility] [address] [place] [address] Dr. Cyril Hendricks Gardnerella vaginalis Negative Normal Negative [facility] Comment on above: Performed By: #### H CVPCRR #### [facility] [address] [place] [address] Dr. Cyril Hendricks Trichomonas vaginalis Negative Normal Negative [facility] Comment on above: Performed By: #### H CVPCRR #### [facility] [address] [address] [address] Cyril Hendricks HEP B SURFACE ANTIGEN SCREEN on 10-03-2021 HBsAg Screen Negative Normal Negative [facility] Comment on above: Performed By: #### H CVPCRR #### [facility] [address] [place] [address] Dr. Cyril Hendricks HEPATITIS C VIRUS AB W/ REFL EX QUANTon 10-03-2021 HCV AB <0.1 Normal 0.0-0.9 [facility] Comment on above: Performed By: #### H CVPCRR #### [facility] [address] [place] [address] Dr. Cyril Hendricks Interpretation: Comment Normal [facility] Comment on above: Result Comment: Nega tive Not infected with HCV, unless recent infection is suspected or other evidence exists to indicate HCV infection. Performed By: #### H CVPCRR #### [facility] [address] [place] [address] Dr. Cyril Hendricks HIV 1 AND 2 WITH REFLEXon HIV Screen 4th Generation wRfx Non-Reactive Normal Non Reactive [facility] Comment on above: Result Comment: HIV Negative HIV-1/HIV-2 antibodies and HIV-1 p24 antigen were NOT detected. There is no laboratory evidence of HIV infection. Performed By: #### H IV12 #### [facility] [address] [place] [address] Dr. Cyril Hendricks RPR QUANTon 10-03-2021 Rapid Plasma Reagin, Quant Non-Reactive Normal NonRea<1:1 [facility] Comment on above: Result Comment: Plea se Note: This test does not meet current guidelines for screening and diagnosis of syphilis. This test is intended for following treatment response in patients being treated for syphilis infection. To screen for syphilis infection, a reflex cascade that includes both RPR and a treponema-specific assay should be utilized, such as Treponema pallidum (Syphilis) Screening [place] (397984) or Rapid Plasma Reagin (RPR) Test With Reflex to Quantitative RPR and Confirmatory Treponema pallidum Antibodies ([id number]). Performed By: #### U MICRO, UACSIND #### [facility] [address] [address] [address] Cyril Hendricks RUBELLA AB IGGon 10-03-2021 Rubella Antibodies, IgG <0.90 Critically low Immune > 0.99 [facility] Comment on above: Result Comment: Non- immune <0.90 Equivocal 0.90 - 0.99 Immune >0.99 Performed By: #### U MICRO, UACSIND #### [facility] [address] [address] [address] Cyril Hendricks CBC AUTO DIFFon 10-02-2021 BASO # 0.1 103/ul Normal 0.0-0.1 [facility] Comment on above: Performed By: #### U MICRO, UACSIND #### [facility] [address] [place] [address] Dr. Cyril Hendricks Basophils/100 WBC (Bld) 0.4 % Normal 0.2-2.0 [facility] Comment on above: Performed By: #### U MICRO, UACSIND #### [facility] [address] [address] [address] Cyril Hendricks EO # 0.1 103/ul Normal 0.0-0.7 [facility] Comment on above: Performed By: #### U MICRO, UACSIND #### [facility] [address] [address] [address] Cyril Hendricks Eosinophils/100 WBC (Bld) 1.1 % Normal 0.9-7.0 [facility] Comment on above: Performed By: #### U MICRO, UACSIND #### [facility] [address] [address] [address] Cyril Hendricks Erythrocyte distribution width (RBC) [Ratio] 13.5 % Normal 11.0-15.0 [facility] Comment on above: Performed By: #### U MICRO, UACSIND #### [facility] [address] [address] [address] Cyril Hendricks Hematocrit (Bld) [Volume fraction] 34.5 % Critically low 36.0-48.0 [facility] Comment on above: Performed By: #### U MICRO, UACSIND #### [facility] [address] [address] [address] Cyril Hendricks Hemoglobin (Bld) [Mass/Vol] 12.0 g/dL Normal 12.0-16.0 [facility] Comment on above: Performed By: #### U MICRO, UACSIND #### [facility] [address] [address] [address] Cyril Hendricks IG # 0.04 10e3/ul Critically high 0.00-0.03 [facility] Comment on above: Performed By: #### U MICRO, UACSIND #### [facility] [address] [place] [address] Dr. Cyril Hendricks IG % 0.3 % Normal 0.0-0.5 [facility] Comment on above: Performed By: #### U MICRO, UACSIND #### [facility] [address] [address] [address] Cyril Hendricks LYMPH # 2.6 103/ul Normal 1.2-3.8 [facility] Comment on above: Performed By: #### U MICRO, UACSIND #### [facility] [address] [place] [address] Dr. Cyril Hendricks Lymphocytes/100 WBC (Bld) 21.3 % Normal 20.5-60.0 [facility] Comment on above: Performed By: #### U MICRO, UACSIND #### [facility] [address] [place] [address] Dr. Cyril Hendricks MANUAL DIFF REQ NO Normal [facility] Comment on above: Performed By: #### U MICRO, UACSIND #### [facility] [address] [place] [address] Dr. Cyril Hendricks MCH (RBC) [Entitic mass] 32.5 pg Normal 26.7-34.0 [facility] Comment on above: Performed By: #### U MICRO, UACSIND #### [facility] [address] [place] [address] Dr. Cyril Hendricks MCHC (RBC) [Mass/Vol] 34.8 g/dL Normal 29.9-35.2 [facility] Comment on above: Performed By: #### U MICRO, UACSIND #### [facility] [address] [place] [address] Dr. Cyril Hendricks MCV (RBC) [Entitic vol] 93.5 fL Normal 81.0-99.0 [facility] Comment on above: Performed By: #### U MICRO, UACSIND #### [facility] [address] [place] [address] Dr. Cyril Hendricks MONO # 0.8 103/ul Normal 0.3-0.8 [facility] Comment on above: Performed By: #### U MICRO, UACSIND #### [facility] [address] [place] [address] Dr. Cyril Hendricks Monocytes/100 WBC (Bld) 6.2 % Normal 1.7-12.0 [facility] Comment on above: Performed By: #### U MICRO, UACSIND #### [facility] [address] [place] [address] Dr. Cyril Hendricks NEUT # 8.6 103/ul Critically high 1.4-6.5 [facility] Comment on above: Performed By: #### U MICRO, UACSIND #### [facility] [address] [place] [address] Dr. Cyril Hendricks Neutrophils/100 WBC (Bld) 70.7 % Normal 43.0-75.0 [facility] Comment on above: Performed By: #### U MICRO, UACSIND #### [facility] [address] [place] [address] Dr. Cyril Hendricks Platelet mean volume (Bld) [Entitic vol] 9.1 fL Critically low 9.5-13.5 [facility] Comment on above: Performed By: #### U MICRO, UACSIND #### [facility] [address] [place] [address] Dr. Cyril Hendricks PLT 257 103/ul Normal 150-450 [facility] Comment on above: Performed By: #### U MICRO, UACSIND #### [facility] [address] [address] [address] Cyril Hendricks RBC 3.69 106/ul Critically low 4.20-5.40 [facility] Comment on above: Performed By: #### U MICRO, UACSIND #### [facility] [address] [place] [address] Dr. Cyril Hendricks WBC 12.2 103/ul Critically high 4.0-11.0 [facility] Comment on above: Performed By: #### U MICRO, UACSIND #### [facility] [address] [place] [address] Dr. Cyril Hendricks CULTURE URINEon 10-02-2021 CULTURE URINE Culture Observations: MODERATE GROWTH OF MIXED GENITAL DRAGAN. NO POTENTIAL PATHOGENS SEEN. Normal [facility] Comment on above: Performed By: #### H CVPCRR #### [facility] [address] [place] [address] Dr. Cyril Hendricks GLYCOHEMOGLOBIN A1Con 2021 ADA RECOMMENDATION SEE BELOW Normal [facility] Comment on above: Result Comment: ADA RECOMMENDED LIMIT 4.0 - 6.0 ADA THERAPEUTIC TARGET < 7.0 ACTION SUGGESTED > 7.0 Performed By: #### H CVPCRR #### [facility] [address] [place] [address] Dr. Cyril Hendricks Glucose [Mass/Vol] 80 mg/dL Normal [facility] Comment on above: Performed By: #### H CVPCRR #### [facility] [address] [place] [address] Dr. Cyril Hendricks HbA1c (Bld) [Mass fraction] 4.4 % Critically low 4.5-6.2 [facility] Comment on above: Performed By: #### H CVPCRR #### [facility] [address] [place] [address] Dr. Cyril Hendricks TYPE AND SCREENon 10-02-2021 TYPE AND SCREEN Negative Normal [facility] Comment on above: Performed By: #### H CVPCRR #### [facility] [address] [place] [address] Dr. Cyril Hendricks US PREG PLACENTAon 2 [...] by: SOFIA KABA Date: 2021-10-02 10:47 Normal [facility] US PREG ANATOMY SINGLEon US PREG ANATOMY [...] (44% by ultrasound, 29% by expected) FL/AC: [id number] FL/BPD: [id number] HC/AC: [id number] GESTATIONAL AGE: Age by EDC: 21 weeks, 3 days NOY by EDC: 01/12/2022 Age by current US: 21 weeks, 1 day NOY by current US: 01/14/2022 IMPRESSION: 1. Single live intrauterine with growth detailed above. 2. Posterior, low-lying placenta. Electronically authenticated by: MARS FRANKEL Date: 2021-09-04 16:30 Normal [facility] Vital Signs Date Time Vital Sign Value Performing Clinician Facility 03-15-2024 12:04-0400 Body mass index (BMI) [Ratio] 29.5 kg/m2 Shabana WHITFIELD Work Phone: [facility] 03-15-2024 12:04-0400 Body weight 82.92 kg Shabana WHITFIELD Work Phone: [facility] 03-15-2024 12:04-0400 Diastolic blood pressure 70 mm[Hg] Shabana WHITFIELD Work Phone: [facility] 03-15-2024 12:04-0400 Systolic blood pressure 120 mm[Hg] Shabana WHITFIELD Work Phone: [facility] 02-03-2024 09:23-0400 Body temperature 97.88 [degF] Siva Schulte [facility] 02-03-2024 09:23-0400 Diastolic blood pressure 70 mm[Hg] Siva Schulte [facility] 02-03-2024 09:23-0400 Heart rate 85 /min Siva Schulte [facility] 02-03-2024 09:23-0400 Respiratory rate 18 /min Siva Schulte [facility] 02-03-2024 09:23-0400 SaO2% (BldA) [Mass fraction] 99 % Siva Schulte [facility] 02-03-2024 09:23-0400 Systolic blood pressure 106 mm[Hg] Siva Schulte [facility] 09-23-2023 09:16-0400 Body temperature 98.42 [degF] Wil Chandra [facility] 09-23-2023 09:16-0400 Diastolic blood pressure 68 mm[Hg] Wil Chandra [facility] 09-23-2023 09:16-0400 Heart rate 82 /min Wil Chandra [facility] 09-23-2023 09:16-0400 Respiratory rate 18 /min Wil Chandra [facility] 09-23-2023 09:16-0400 SaO2% (BldA) [Mass fraction] 97 % Wil Chandra [facility] 09-23-2023 09:16-0400 Systolic blood pressure 98 mm[Hg] Wil Chandra [facility] 08-27-2023 12:24-0400 Diastolic blood pressure 61 mm[Hg] [facility] 08-27-2023 12:24-0400 Heart rate 77 /min [facility] 08-27-2023 12:24-0400 Mean blood pressure 72 mm[Hg] [facility] 08-27-2023 12:24-0400 Respiratory rate 16 /min [facility] 08-27-2023 12:24-0400 SaO2% (BldA) [Mass fraction] 97 % [facility] 08-27-2023 12:24-0400 Systolic blood pressure 93 mm[Hg] [facility] 08-27-2023 11:30-0400 Diastolic blood pressure 69 mm[Hg] [facility] 08-27-2023 11:30-0400 Heart rate 74 /min [facility] 08-27-2023 11:30-0400 Mean blood pressure 82 mm[Hg] [facility] 08-27-2023 11:30-0400 Respiratory rate 16 /min [facility] 08-27-2023 11:30-0400 SaO2% (BldA) [Mass fraction] 99 % [facility] 08-27-2023 11:30-0400 Systolic blood pressure 107 mm[Hg] [facility] 08-27-2023 10:30-0400 Diastolic blood pressure 62 mm[Hg] [facility] 08-27-2023 10:30-0400 Heart rate 91 /min [facility] 08-27-2023 10:30-0400 Mean blood pressure 77 mm[Hg] [facility] 08-27-2023 10:30-0400 Respiratory rate 18 /min [facility] 08-27-2023 10:30-0400 SaO2% (BldA) [Mass fraction] 100 % [facility] 08-27-2023 10:30-0400 Systolic blood pressure 107 mm[Hg] [facility] 08-27-2023 09:41-0400 Body temperature 98.6 [degF] [facility] 08-27-2023 09:41-0400 Heart rate 80 /min [facility] 01-04-2023 00:03-0400 Body temperature 98.78 [degF] Siva [facility] 01-04-2023 00:03-0400 Diastolic blood pressure 54 mm[Hg] Siva [facility] 01-04-2023 00:03-0400 Heart rate 97 /min Siva Schulte [facility] 01-04-2023 00:03-0400 Mean blood pressure 70 mm[Hg] Siva Schulte [facility] 01-04-2023 00:03-0400 Respiratory rate 18 /min Siva Schulte [facility] 01-04-2023 00:03-0400 SaO2% (BldA) [Mass fraction] 94 % Siva Schulte [facility] 01-04-2023 00:03-0400 Systolic blood pressure 102 mm[Hg] Siva Eris [facility] 01-03-2023 23:00-0400 Body temperature 100.04 [degF] Siva Eris [facility] 01-03-2023 23:00-0400 Diastolic blood pressure 62 mm[Hg] Siva Eris [facility] 01-03-2023 23:00-0400 Heart rate 100 /min Siva Eris [facility] 01-03-2023 23:00-0400 Mean blood pressure 75 mm[Hg] Siva Eris [facility] 01-03-2023 23:00-0400 Systolic blood pressure 100 mm[Hg] Siva Eris [facility] 01-03-2023 22:42-0400 Body temperature 100.76 [degF] Siva Eris [facility] 01-03-2023 22:42-0400 Diastolic blood pressure 59 mm[Hg] Siva Eris [facility] 01-03-2023 22:42-0400 Heart rate 105 /min Siva Eris [facility] 01-03-2023 22:42-0400 Respiratory rate 20 /min Siva Eris [facility] 01-03-2023 22:42-0400 SaO2% (BldA) [Mass fraction] 99 % Siva Eris [facility] 01-03-2023 22:42-0400 Systolic blood pressure 96 mm[Hg] Siva Eris [facility] 10-02-2022 21:29-0400 Diastolic blood pressure 72 mm[Hg] NO [facility] 10-02-2022 21:29-0400 Heart rate 94 /min PHYSICIAN NO [facility] 10-02-2022 21:29-0400 Respiratory rate 18 /min PHYSICIAN NO [facility] 10-02-2022 21:29-0400 SaO2% (BldA) [Mass fraction] 98 % PHYSICIAN NO [facility] 10-02-2022 21:29-0400 Systolic blood pressure 141 mm[Hg] PHYSICIAN NO [facility] 10-02-2022 17:03-0400 Body height 170.18 cm PHYSICIAN NO [facility] 10-02-2022 17:03-0400 Body temperature 98.3 [degF] PHYSICIAN NO [facility] 10-02-2022 17:03-0400 Body weight 76.4 kg PHYSICIAN NO [facility] 09-25-2022 13:25-0400 Body height 170.18 cm Viet Yuri Other [facility] Other 09-25-2022 13:25-0400 Body mass index (BMI) [Ratio] 26.62 kg/m2 Viet Welch Other [facility] Other 09-25-2022 13:25-0400 Body temperature 98.2 [degF] Viet Welch Other [facility] Other 09-25-2022 13:25-0400 Body weight 77.11 kg Viet Welch Other [facility] Other 09-25-2022 13:25-0400 Diastolic blood pressure 68 mm[Hg] Viet Welch Other [facility] Other 09-25-2022 13:25-0400 Respiratory rate 18 /min Viet Welch Other [facility] Other 09-25-2022 13:25-0400 SaO2% (BldA) [Mass fraction] 98 % Viet Welch Other [facility] Other 09-25-2022 13:25-0400 Systolic blood pressure 107 mm[Hg] Viet Welch Other [facility] Other 09-06-2022 13:54-0400 Diastolic blood pressure 72 mm[Hg] Wil Corazon [facility] 09-06-2022 13:54-0400 Heart rate 60 /min Wil Corazon [facility] 09-06-2022 13:54-0400 Respiratory rate 16 /min Wil Corazon [facility] 09-06-2022 13:54-0400 SaO2% (BldA) [Mass fraction] 100 % Wil Corazon [facility] 09-06-2022 13:54-0400 Systolic blood pressure 103 mm[Hg] Wil Corazon [facility] 09-06-2022 11:41-0400 Diastolic blood pressure 65 mm[Hg] Wil Corazon [facility] 09-06-2022 11:41-0400 Heart rate 58 /min Wil Corazon [facility] 09-06-2022 11:41-0400 Mean blood pressure 77 mm[Hg] Wil Corazon [facility] 09-06-2022 11:41-0400 Respiratory rate 16 /min Wil Corazon [facility] 09-06-2022 11:41-0400 SaO2% (BldA) [Mass fraction] 100 % Wil Corazon [facility] 09-06-2022 11:41-0400 Systolic blood pressure 102 mm[Hg] Wil Chandra [facility] 09-06-2022 10:42-0400 Body temperature 98.24 [degF] Wil Chandra [facility] 09-06-2022 10:42-0400 bodymassindex 1.17 Wil Chandra [facility] Comment on above: Result Comment: ^~:!ZScore [facility] 09-06-2022 10:42-0400 Diastolic blood pressure 71 mm[Hg] Wil Chandra [facility] 09-06-2022 10:42-0400 Heart rate 73 /min Wil Chandra [facility] 09-06-2022 10:42-0400 Height/Length Percentile 84.89 Wil Chandra [facility] Comment on above: Result Comment: ^~:!Percentile [facility] 09-06-2022 10:42-0400 Height/Length Z-Score 1.03 Wil Chandra [facility] Comment on above: [facility] 10:42-0400 Respiratory rate 16 /min Wil Chandra [facility] 09-06-2022 10:42-0400 SaO2% (BldA) [Mass fraction] 98 % Wil Chandra [facility] 09-06-2022 10:42-0400 Systolic blood pressure 111 mm[Hg] Wil Chandra [facility] 09-06-2022 10:42-0400 weight 1.47 Wil Chandra [facility] Comment on above: Result Comment: [facility] 10:42-0400 Weight Percentile 92.90 % Wil Chandra [facility] Comment on above: Result Comment: ^~:!Percentile Source -[facility] 08-14-2022 21:30-0500 Diastolic blood pressure 79 mm[Hg] Bob Llanos [facility] 08-14-2022 21:30-0500 Heart rate 87 /min Bob Llanos [facility] 08-14-2022 21:30-0500 Mean blood pressure 93 mm[Hg] Bob Llanos [facility] 08-14-2022 21:30-0500 Nursing Progress Note Reason Other: pt to US via stretcher at this time. Bob Llanos [facility] 08-14-2022 21:30-0500 Respiratory rate 16 /min Bob Llanos [facility] 08-14-2022 21:30-0500 SaO2% (BldA) [Mass fraction] 100 % Bob Llanos [facility] 08-14-2022 21:30-0500 Systolic blood pressure 120 mm[Hg] Bob Llanos [facility] 08-14-2022 19:20-0500 Body temperature 98.96 [degF] Bob Llanos [facility] 08-14-2022 19:20-0500 bodymassindex 1.17 Bob Llanos [facility] Comment on above: Result Comment: ^~:!ZScore Source -[facility] 08-14-2022 19:20-0500 Diastolic blood pressure 61 mm[Hg] Bob Llanos [facility] 08-14-2022 19:20-0500 Heart rate 98 /min Bob Llanos [facility] 08-14-2022 19:20-0500 Height/Length Percentile 84.91 Bob Llanos [facility] Comment on above: Result Comment: ^~:!Percentile Source -[facility] 08-14-2022 19:20-0500 Height/Length Z-Score 1.03 Bob Llanos [facility] Comment on above: Result Comment: ^~:!ZScore [facility] 08-14-2022 19:20-0500 Respiratory rate 16 /min Bob Llanos [facility] 08-14-2022 19:20-0500 SaO2% (BldA) [Mass fraction] 99 % Bob Llanos [facility] 08-14-2022 19:20-0500 Systolic blood pressure 114 mm[Hg] Bob Llanos [facility] 08-14-2022 19:20-0500 weight 1.47 Bob Llanos [facility] Comment on above: Result Comment: ^~:!ZScore [facility] 08-14-2022 19:20-0500 Weight Percentile 92.94 % Bob Llanos [facility] Comment on above: Result Comment: ^~:!Percentile Source -[facility] 06-24-2022 13:30-0500 Body height 170.18 cm Viet Welch Other [facility] Other 06-24-2022 13:30-0500 Body mass index (BMI) [Ratio] 26.62 kg/m2 Viet Welch Other [facility] Other 06-24-2022 13:30-0500 Body temperature 97.8 [degF] Viet Welch Other [facility] Other 06-24-2022 13:30-0500 Body weight 77.11 kg Viet Welch Other [facility] Other 06-24-2022 13:30-0500 Diastolic blood pressure 63 mm[Hg] Viet Welch Other [facility] Other 06-24-2022 13:30-0500 Respiratory rate 18 /min Viet Welch Other [facility] Other 06-24-2022 13:30-0500 SaO2% (BldA) [Mass fraction] 98 % Viet Welch Other [facility] Other 06-24-2022 13:30-0500 Systolic blood pressure 97 mm[Hg] Viet Welch Other [facility] Other 11-13-2021 14:05-0400 Body height 170.18 cm Michael Oneil Other [facility] Other 11-13-2021 14:05-0400 Body mass index (BMI) [Ratio] 26.62 kg/m2 Michael Oneil Other [facility] Other 11-13-2021 14:05-0400 Body temperature 98.4 [degF] Michael Oneil Other [facility] Other 11-13-2021 14:05-0400 Body weight 77.11 kg Michael Oneil Other [facility] Other 11-13-2021 14:05-0400 Respiratory rate 18 /min Michael Oneil Other [facility] Other 11-13-2021 14:05-0400 SaO2% (BldA) [Mass fraction] 98 % Michael Oneil Other [facility] Other 11-06-2021 15:45-0400 Body height Kendra Witt Other [facility] Other 11-06-2021 15:45-0400 Body mass index (BMI) [Ratio] 26.62 kg/m2 Kendra Witt Other [facility] Other 11-06-2021 15:45-0400 Body weight 77.11 kg Kendra Witt Other [facility] Other 11-06-2021 15:45-0400 Respiratory rate 20 /min Kendra Witt Other [facility] Other 11-06-2021 15:45-0400 SaO2% (BldA) [Mass fraction] 98 % Kendra Witt Other [facility] Other Encounters Encounter Date Encounter Type Care Provider Facility Start: 03-22-2024 End: 03-22-2024 Bamboo flowsheet Juvenal Maurilio DO Work Phone: [facility] Start: 03-22-2024 End: 03-22-2024 Bamboo flowsheet Juvenal Maurilio DO Work Phone: [facility] Start: 03-22-2024 End: 03-22-2024 ambulatory JUVENAL MAURILIO Not Available Start: 03-22-2024 End: 03-22-2024 Office outpatient visit 15 minutes Juvenal Maurilio DO Work Phone: [facility] Comment on above: 36 weeks gestation o f ; Third trimester ; Gastroesophageal reflux in Start: 03-15-2024 End: 03-15-2024 Bamboo flowsheet Shabana WHITFIELD Work Phone: [facility] Start: 03-15-2024 End: 03-15-2024 Bamboo flowsheet Shabana WHITFIELD Work Phone: [facility] Start: 03-15-2024 End: 03-15-2024 ambulatory SHABANA ELLIS Not Available Start: 03-15-2024 End: 03-15-2024 Office outpatient visit 15 minutes Shabana WHITFIELD Work Phone: [facility] Comment on above: 35 weeks gestation o f ; Third trimester Start: 03-01-2024 End: 03-01-2024 ambulatory JUVENAL MAURILIO Not Available Start: 02-16-2024 End: 02-16-2024 ambulatory SHABANA ELLIS Not Available Start: 02-03-2024 End: 02-03-2024 Emergency department patient visit Siva Schulte [facility] Start: 01-26-2024 End: 01-26-2024 ambulatory JUVENAL MAURILIO Not Available Start: 12-29-2023 End: 12-29-2023 ambulatory SHABANA ELLIS Not Available Start: 12-22-2023 End: 12-22-[address] [facility] Start: 12-01-2023 End: 12-01-2023 ambulatory JUVENAL MAURILIO Not Available Start: 11-10-2023 End: 11-10-[address] [facility] Start: 10-27-2023 End: 10-27-2023 ambulatory SHABANA ELLIS Not Available Start: 09-29-2023 End: 09-29-2023 ambulatory JUVENAL MAURILIO Not Available Start: 09-23-2023 End: 09-23-2023 Emergency department patient visit Wil Chandra [facility] Start: 09-04-2023 End: 09-04-2023 ambulatory JUVENAL MAURILIO Not Available Start: 08-27-2023 End: 08-27-2023 Emergency department patient visit Emily Harper [facility] Start: 08-18-2023 End: 08-18-2023 ambulatory SELAM ELSA Facility:[facility] Start: 01-03-2023 End: 01-04-2023 Emergency department patient visit Siva Schulte [facility] Start: 12-12-2022 End: 12-12-2022 ambulatory Kenneth Mills Other [facility] Other Start: 12-12-2022 Telephone encounter Kenneth Mills [facility] [place] Start: 10-02-2022 End: 10-02-2022 Emergency department patient visit Jose Silverman Facility:[facility] Start: 10-02-2022 End: 10-02-2022 Emergency department patient visit PHYSICIAN [facility] Work Phone: Start: 09-25-2022 End: 09-25-2022 ambulatory Viet Yuri Other [facility] Other Start: 09-25-2022 Office outpatient visit 15 minutes Viet Brookford [facility] Start: 09-06-2022 End: 09-06-2022 Emergency department patient visit Wil Chandra [facility] Start: 08-14-2022 End: 08-14-2022 Emergency department patient visit Bob Llanos [facility] Start: 07-11-2022 End: 07-11-2022 ambulatory ROSEANN CORRAL Facility: Start: 06-24-2022 End: 06-24-2022 ambulatory Viet Yuri Other [facility] Other Start: 06-24-2022 Office outpatient visit 15 minutes Viet Brookford [facility] Start: 01-11-2022 End: 01-11-[address] NONE LISTED REQUEST Facility:[facility] Start: 01-07-2022 End: 01-09-2022 Evaluation and management of inpatient DR RENATA GEORGES Facility:[facility] Start: 12-29-2021 End: 12-29-[address] JUVENAL THORPE Facility:[facility] Start: 12-19-2021 End: 12-19-[address] JUVENAL THORPE Facility:[facility] Start: 12-12-2021 End: 12-13-2021 ambulatory JUAQUIN FERNANDESJACEY [facility] Start: 12-12-2021 End: 12-12-2021 Subsequent hospital visit by physician [facility] Start: 11-27-2021 End: 11-27-[address] SOFIA KABA Facility:[facility] Start: 11-13-2021 End: 11-13-2021 ambulatory Michael Oneil Other [employer] Other Start: 11-13-2021 Office outpatient visit 15 minutes iMchael Oneil [facility] Start: 11-06-2021 End: 11-06-2021 ambulatory Kendra Witt Other [employer] Other Start: 11-06-2021 Office outpatient visit 25 minutes Kendra Witt [facility] Start: 10-23-2021 End: 10-24-[address] JUVENAL THORPE Facility:H1 Start: 10-02-2021 End: 10-03-[address] SOFIA KABA Facility:[facility]1 Start: 09-04-2021 End: 09-05-[address] RENATA GEORGES Facility:[facility]1 Procedures Date Procedure Procedure Detail Performing Clinician Start: 03-22-2024 Urnls dip stick/tabl et rgnt non-auto w/o micrscp Juvenal Thorpe DO Work Phone: Start: 03-15-2024 Urnls dip stick/tabl et rgnt [...] AM EDT Routine [facility] [address] [place] [address] Juvenal Thorpe, DO [address], [place] [id number] [facility] Start: 03-22-2024 End: 03-22-2025 Strep B DNA probe, amplification Strep B DNA probe, amplification Lab Routine Third trimester Expected: 03/22/2024 (Approximate), Expires: 03/22/2025 [facility] Work Phone: Comment on above: Expected: 03/22/2024 (Approximate), Expires: 03/22/2025 Start: 03-22-2024 End: 03-22-2024 Patient encounter procedure 03/22/2024 11:10 AM EDT Routine [facility] [address] [place] [address] Juvenal Thorpe, [address], [place] [id number] [facility] Start: 10-02-2022 Bacteria identified in Urine by Culture Urine Culture [facility] Start: 02-07-2022 Influenza vaccination Flu vaccine (# 1) [facility] Start: 01-09-2022 End: 01-09-2022 Patient encounter procedure 01/09/2022 Routine [facility]inatology [facility] Start: 01-02-2022 End: 01-02-2022 Patient encounter procedure 01/02/2022 Routine Perinatology [facility] Start: 12-26-2021 End: 12-26-2021 Patient encounter procedure 12/26/2021 Routine [facility]atology [facility] Start: 12-20-2021 End: 12-20-2021 Patient encounter procedure 12/20/2021 Rout[facility] Start: 2021 DTaP/Tdap/Td vaccine (1 - Tdap) DTaP/Tdap/Td vaccine (1 - Tdap) [facility] Start: 2020 Hepatitis C screening Hepatitis C sc reen [facility] Start: 2018 Screening for Chlamy nazanin trachomatis Chlamydia screen [facility] [employer] Start: 2017 HIV screening HIV screen [facility] Start: 2014 Depression Monitoring Depression Mon itoring [facility] Start: 2013 HPV vaccine (1 - 2-d ose series) HPV vaccine (1 - 2-dose series) [facility] Start: 09-16-2007 COVID-19 Vaccine (1) COVID-19 Vaccin e (1) [facility] Start: 09-16-2003 Varicella vaccine (1 of 2 - 2-dose childhood series) Varicella vaccine (1 of 2 - 2-dose childhood series) [facility] Patient Education Depression, Adult ED [facility] Work Phone: Patient referral [facility] Work Phone: End: 12-12-2021 Sjogrens syndrome-A extractable nuclear antibody [facility] Work Phone: Comment on above: Once for 1 Occurrenc es starting 12/12/2021 until 12/12/2021 End: 12-12-2021 Sjogrens syndrome-B extractable nuclear antibody [facility] Work Phone: Comment on above: Once for 1 Occurrenc es starting 12/12/2021 until 12/12/2021 Immunizations Immunization Date Immunization Notes Care Provider Simona galarza NEGATED: Highlighted row has not occurred!11-05-2019 influenza, injectable, quadrivalent, contains preservative Kendra Witt Other [employer] Other NEGATED: Highlighted row has not occurred!04-10-2019 influenza virus vaccine, unspecified formulation Bob Llanos [facility] Payers Date Payer Category Payer Medicaid [employer] [place] [id number] 2023-Present [address] [place] [address] [id number] 2023 Private Health Insurance [facility] MEDICAID [id number] 2022 Self-pay [id number] 2002 Unknown [id number] 2.16.840.1.673125.3.579.2. 175 2002 Unknown [id number] 2.16.840.1.926198.3.579.2. 593 2002 Unknown [id number] 2.16.840.1.928978.3.579.2. 593 2002 Unknown [id number] 2.16.840.1.458262.3.579.2. 593 2002 Unknown [id number] 2.16.840.1.309515.3.579.2. 593 2002 Unknown [id number] 2.16.840.1.988503.3.579.2. 593 2002 Unknown [id number] 2.16.840.1.748177.3.579.2. 593 2002 Unknown [id number] 2.16.840.1.885578.3.579.2. 593 2002 Unknown [id number] 2.16.840.1.143856.3.579.2. 593 2002 Unknown [id number] 2.16.840.1.147160.3.579.2. 593 2002 Unknown [id number] 2.16.840.1.893891.3.579.2. 593 2002 Unknown [id number] 2.16.840.1.248769.3.579.2. 593 2002 Unknown [id number] 2.16.840.1.668480.3.579.2. 1286 2002 Unknown [id number] 2.16.840.1.476303.3.579.2. 1286 2002 Unknown [id number] 2.16.840.1.147804.3.579.2. 1286 2002 Unknown [id number] 2.16.840.1.710200.3.579.2. 727 2002 Unknown [id number] 2.16.840.1.325720.3.579.2. 727 2002 Unknown [id number] 2.16.840.1.290206.3.579.2. 727 2002 Unknown [id number] 2.16.840.1.117674.3.579.2. 727 2002 Unknown [id number] 2.16.840.1.228882.3.579.2. 727 2002 Unknown [id number] 2.16.840.1.184759.3.579.2. 9 2002 Unknown [id number] 2.16.840.1.504136.3.579.2. 1258 2002 Unknown [id number] 2.16.840.1.842328.3.579.2. 1258 2002 Unknown [id number] 2.16.840.1.533693.3.579.2. 1258 2002 Unknown [id number] 2.16.840.1.020128.3.579.2. 1258 2002 Unknown [id number] 2.16.840.1.033044.3.579.2. 1258 2002 Unknown [id number] 2.16.840.1.232883.3.579.2. 1258 2002 Unknown [id number] 2.16.840.1.425297.3.579.2. 1258 2002 Unknown [id number] 2.16.840.1.611726.3.579.2. 1258 2002 Unknown [id number] 2.16.840.1.986759.3.579.2. 9 1959 Unknown [id number] 2.16.840.1.263979.19 1959 Unknown [id number] Unknown [id number] 2.16.840.1.460649.3.579.2. 531 Social History Date Type Detail Facility Sex Assigned At [facility] Start: 11-28-2021 Tobacco smoking status KYIS Never smoked tobacco [employer] Phone: Start: 11-28-2021 Tobacco use and exposure Smokeless tobacco non-user [employer] Phone: Start: 12-12-2021 Alcohol intake Ex-drinker (finding) [employer] Phone: Start: 12-12-2021 Tobacco Comment no longer vapes [employer] Phone: Start: 04-21-2021 [facility] [employer] Phone: Start: 2000 Sex Assigned At Not on file B ON [employer] Phone: Tobacco Current vaping o r e-cigarette use Smokeless Tobacco Use:. Vaping [facility] Tobacco smoking status No Smoking Status Entered [facility] Start: 10-02-2022 Tobacco smoking status NHIS Smoker (finding) [facility] Start: 2000 Sex Assigned At Female F [facility] Tobacco smoking status KYIS Tobacco smoking consumption unknown [facility] Start: 01-17-2023 Gender identity Identifies as female gender (finding) [facility] Functional Status Date Assessment Result Facility 02-03-2024 Functional Status N/A [facility] 09-23-2023 Functional Status N/A [facility] 08-27-2023 Functional Status N/A [facility] 01-03-2023 Functional Status N/A [facility] 09-06-2022 Functional Status N/A [facility] 08-14-2022 Functional Status N/A [facility] Clinical Notes 11-06-2021 to 03-22-2024 Candice Loya LPN - 03/22/2024 11:20 AM ROSEANN Smith - 03/15/2024 11:50 AM EDT Note Date & Type Note Facility 03-22-2024 History of Presen t illness Narrative Reason for Appointment: Patient ID: Kailyn Ackerman is a 23 y.o. female who presents for Routine Visit Patient presents today for Return OB appointment. MEDICATIONS Current Outpatient Medications Medication Instructions Ferrous Sulfate (IRON PO) 1 tablet, Daily RT omeprazole (PRILOSEC) 20 mg, Oral, Daily before breakfast, Do not crush or chew. ALLERGIES No Known Allergies PROBLEMS Active Ambulatory [...] Constitutional: Appearance: Normal appearance. She is well-developed. Genitourinary: Vulva normal. Cardiovascular: Rate and Rhythm: Normal rate and [...] nursing note reviewed. Exam conducted with a primary counselor present. Vitals: Estimated body mass index is 29.5 kg/m as calculated from the following: Height as of 09/11/22: 5' 6 . Weight as of 03/15/24: 182 lb 12.8 oz. BP: Patient's last menstrual period was 07/10/2023. ASSESSMENT & PLAN ICD-10-CM 1. 36 weeks gestation of Z3A.36 POCT urinalysis dipstick manually resulted 2. Third trimester Z34.93 POCT urinalysis dipstick manually resulted Strep B DNA probe, amplification 3. Gastroesophageal reflux in O99.619 omeprazole (PriLOSEC) [address] capsule K21.9 Patient is doing well but has complaints of being tired and having maternal discomfort due to . Patient verbalized frequent movement and was instructed to perform kick counts three times per day. labor precautions were given, LARC consent was signed/declined, and GBS was obtained. Cervical check was performed and patient is 3cm dilated. Patient would like to have IOL on 04/05/24 and nursing called [facility] and spoke with nursing and placed patient on books for IOL @0500. Patient to sign consents at later appointment. Patient to return to clinic in 1 week. Orders Placed This Encounter Procedures Strep B DNA probe, amplification POCT urinalysis dipstick manually resulted Follow Up: Patient is to return to office in 1 week for routine OB appointment Documented by Candice Loya LPN on behalf of: Juvenal Thorpe DO documented in this encounter [facility] 03-15-2024 History of Presen t illness Narrative [...] nursing note reviewed. Exam conducted with a primary counselor present. Vitals: Estimated body mass index is [...] of: ROSEANN Smith documented in this encounter [facility] 02-03-2024 Evaluation + Plan note Extrac ruby from: Title:ED Note Author:Kiki CHUNG, Duc Torres te:02/03/24 Sore throat (J02.9: Acute ph aryngitis, unspecified) Viral URI (J06.9: Acute upper respiratory infection, unspecified) Orders: Group A Strep by PCR Rapid Strep w/rfx Diagnostic Tests Pending * Group A Strep by PCR 02/03/24 [facility] 08-27-2024 Hospital Discharge instructions Patient [...] medicines to help relieve symptoms, such as: Sorv-xrn-oskhcjf cold medicines. Cough suppressants. Coughing is a [...] and other clear broths. General instructions Take elqj-trn-xxzmmph and prescription medicines only as told by [...] and water are not available, use hand fluorescent lamp replacer. Avoid touching your mouth, face, eyes, or [...] provider. Document Revised: 12/26/2021 Document Reviewed: 12/26/2021 [employer] Patient Education 2022 [employer]. Follow Up Care 02/03/2024 09:23:13 With:Juvenal THORPE Address: [address] , [place] [address]- Business (1) When:02/06/2024 11:12:27 With:SELAM HUNTER Address: [facility] [place] [address] Business (1) When:02/06/2024 11:12:21 [facility] 08-27-2024 NoteED Patient Education Note [...] to help relieve symptoms, such as: ? Jbpe-mpj-uqieaqo cold medicines. ? Cough suppressants. Coughing is [...] other clear broths. General instructions ? Take onuf-xfp-tqxwlbf and prescription medicines only as told by [...] soap and water are not available,use hand fluorescent lamp replacer. ? Avoid touching your mouth, face, eyes, [...] Mood. These symptoms m (more content not included)...[facility] 09-23-2023 Hospital Discharge instructions Patient Education [...] provider. Document Revised: 02/19/2021 Document Reviewed: 02/19/2021 [employer] Patient Education 2022 [employer]. Follow Up Care 09/23/2023 09:11:45 With:Juvenal THORPE Address: [address] [place] [address] Business (1) When:09/26/2023 11:44:07 [facility]03-20-2024 Hospital Discharge instructions Patient Education [...] provider. Document Revised: 01/09/2022 Document Reviewed: 01/09/2022 [employer] Patient Education 2022 [employer]. 08/27/2023 12:34:16 Urinary Tract Infection, Adult, Htcm-yq-Stso Urinary Tract Infection, Adult A urinary tract [...] Follow these instructions at home: Medicines Take fqrp-tew-ojcbwqm and prescription medicines only as told by [...] provider. Document Revised: 01/05/2021 Document Reviewed: 01/05/2021 [employer] Patient Education 2022 [employer]jan. 08/27/2023 12:34:16 Subchorionic Hematoma Subchorionic Hematoma A [...] provider. Document Revised: 02/19/2021 Document Reviewed: 02/19/2021 [employer] Patient Education 2022 [employer]jan. Follow Up Care 08/27/2023 09:39:16 With:Juvenal THORPE Address: [address] [place] [address]- Business (1) When:08/30/2023 12:05:10 With:SELAM HUNTER Address: [facility] [place] [address] Business (1) When:Within 3 Day(s) [facility]03-20-2024 Evaluation + Plan noteExtracted from: [...] day(s), # 28 cap(s), Refills(s) 0, Pharmacy: [facility], 170, cm, 08/27/23 9:49:00 EDT, Height/Length Dosing, 78.7, kg, 08/27/23 9:49:00 EDT, Weight Dosing ABO/Rh Basic Metabolic Panel Beta hCG Quantitative CBC w/ Auto Diff eGFR Extra Blue Tube Extra SST Tube UA with Cult Rflx Urine Culture US 1st Trimester US Transvaginal Diagnostic Tests Pending * Urine Culture 08/27/23 [facility]07-29-2023 Hospital Discharge instructions Patient Education 01/04/2023 00:13:01 Pharyngitis, Lyxc-jd-Ucoo Pharyngitis Pharyngitis is a sore throat (pharynx). [...] Follow these instructions at home: Medicines Take dxmo-dsd-hjrmnev and prescription medicines only as told by [...] and water are not available, use hand fluorescent lamp replacer. Do not touch your eyes, nose, or [...] provider. Document Revised: 08/22/2021 Document Reviewed: 08/22/2021 [employer] Patient Education 2022 [employer]jan. Follow Up Care 01/03/2023 22:32:55 With:Thony Carl Address: [address] [place] [address] [place] [address] [facility] (1) When:01/06/2023 Comments:Follow-up with your primary care provider in 3 to 5 days. If symptoms worsen, do not improve, or new symptoms arise please report back to emergency department for further evaluation. [facility]07-28-2023 Evaluation + Plan noteExtracted from: [...] q12hr, # 20 cap(s), Refills(s) 0, Pharmacy: [facility], 170, cm, 01/03/23 22:44:00 EDT, Height/Length Dosing, 75.3, kg, 01/03/23 22:44:00 EDT, Weight Dosing ondansetron, 4 mg = 1 tab(s), Oral, q8hr, PRN Nausea/Vomiting, # 12 tab(s), Refills(s) 0, Pharmacy: [facility], 170, cm, 01/03/23 22:44:00 EDT, Height/Length Dosing, 75.3, kg, 01/03/23 22:44:00 EDT, Weight Dosing ondansetron, 12 mg = 3 tab(s), Tab-Dis, Oral, Once, Stop date 01/03/23 23:45:00 EDT, STAT, Start date 01/03/23 23:45:00 EDT, 01/03/23 23:45:00 EDT Automated Diff Basic Metabolic Panel Beta hCG Quantitative CBC w/ Auto Diff eGFR Hepatic Function Panel Lipase Level [facility]04-19-2023 Evaluation note* Encounter Date Diagnosis [...] of symptoms occur by end of treatment. [employer] Other 03-31-2023 Hospital Discharge instructions Patient Education [...] Follow these instructions at home: Medicines Take ryxa-qbh-iafjfkg and prescription medicines only as told by [...] important. Where to find more information [employer]: www.acog.org [place] [...] Document Reviewed: 07/01/2017 Elsevier Patient Education 2019 Finjan. Follow Up Care 09/06/2022 10:42:16 With:Juvenal THORPE Address: [address] [place] [address]- Business (1) When:09/09/2022 13:46:05 [facility]03-09-2023 Hospital Discharge instructions Patient Education 08/14/2022 22:12:46 Abdominal Pain During , Yvny-su-Rjcg Abdominal Pain During Belly (abdominal) pain is [...] keep your pee (urine) pale yellow. Take pjgv-iua-ktmlrrz and prescription medicines only as told by [...] 05/14/2010 Document Revised: 09/13/2019 Document Reviewed: 08/28/2017 [employer] Patient Education 2020 [employer]jan. 08/14/2022 22:12:46 Abdominal Pain, Adult, Lzdf-qn-Dowk Abdominal Pain, Adult Many things can cause belly (abdominal) pain. Most times, belly pain is not dangerous. Many cases of belly pain can be watched and treated at home. Sometimes, though, belly pain is serious. Your doctor will try to find the cause of your belly pain. Follow these instructions at home: Medicines Take ymem-ieq-jujtugw and prescription medicines only as told by [...] your belly pain for any changes. Take feeg-lbv-lddedab and prescription medicines only as told by [...] 11/11/2008 Document Revised: 10/04/2019 Document Reviewed: 10/04/2019 [employer] Patient Education 2020 [employer]jan. Follow Up Care 08/14/2022 18:41:38 With:Juvenal THORPE Address: [address] , [facility] [place] [address]- Business (1) When:08/17/2022 Comments:Follow-up with Dr. Thorpe for further evaluation of your . With:Juventino Carbajal Address: [address] [place] [address]- When:08/17/2022 Comments:Follow-up with your primary care provider in 3 to 5 days. If symptoms worsen, do not improve, or new symptoms arise please report back to emergency department for further evaluation. [facility]01-16-2023 Evaluation note* Encounter Date Diagnosis [...] return precautions. Jun, Cough (ICD-10 - R05.9) [employer] Other 06-07-2022 Evaluation note* Encounter Date Diagnosis [...] Pt understood and agreed to tx plan. [employer] Other [id number] Evaluation note* Encounter Date Diagnosis Assessment Notes [...] condition October, Sore throat (ICD-10 - J02.9) [employer] Other Evaluation + Plan note No data available for this section [facility] information available [facility] Work Phone: Evaluation noteNo InformationNort [employer] Other Evaluation note* Diagnosis 35 weeks gestation of Third trimester state, incidental [facility] Diagnosis 36 weeks gestation of Third trimester state, incidental Gastroesophageal reflux in documented in this encounter [facility] Narrative - Reported* Type Description Date Medical History fx lt elbow at age 7 Surgical History surgical repair of left elbow f racture at age 7 Hospitalization History see surgical hx [employer] Other Progress note No data available for this section [facility] Summary Purpose Family History No [...] content) DATE CREATED AUTHOR 01/05/2022 [facility] DATE CREATED AUTHOR AUTHOR'S ORGANIZ ATION 07/15/2022 [facility] DATE CREATED AUTHOR AUTHOR'S ORGANIZ ATION 10/10/2022 [facility] DATE CREATED AUTHOR AUTHOR'S ORGANIZ ATION 12/26/2023 [facility] DATE CREATED AUTHOR AUTHOR'S ORGANIZ ATION 02/05/2024 [facility] DATE CREATED AUTHOR AUTHOR'S ORGANIZ ATION 02/06/2024 [facility] DATE CREATED AUTHOR AUTHOR'S ORGANIZ ATION 03/24/2024 [facility] [employer] Care Teams (unrecognized sec tion and content) Personnel Name: SELAM HUNTER CNP Address: Address: [address] [place], [place] [address] Team Status: Active Member Role Status Dates [...] BE BASED ON THE PRIMARY CLINICAL RECORDS. [facility] [employer] [facility]. provides no warranty or guarantee of the accuracy or completeness of information in this document.
[2024-03-25 16:19] VITALS: BP 111/61; PULSE 90
== END 2024-03-25 16:46 | disposition home or self-care (01) ==
LOC: FBCO 06:56 → FBC 16:11
PROVIDERS: Visit Provider Obstetrics & Gynecology
DX: O43.893 Other placental disorders, third trimester (principal); Z3A.37 37 weeks gestation of pregnancy
CPT/HCPCS: 59025

== ENCOUNTER 2024-03-29 06:55 | Outpatient (OUT) | payer OTHER, SELFPAY ==
--- NOTE | 2024-03-29 | US_ITS ---
[address] [address] Patient Name: KAILYN ACKERMAN MRN: [id number] date: 2000 Sex: F Assigned Patient Location: [facility] Current Patient Location: [facility] Accession/Order Number: [id number] Exam Date: 03/29/2024 12:55 Report Date: 03/29/2024 14:09 At the request of: VAL ANG Procedure: US OB BPP w non-stress EXAMINATION: US OB BPP w non-stress HISTORY: ANTEPARTUM PLACENTA CIRCUMVALLATE COMPARISON: No relevant comparison available. TECHNIQUE: Ultrasound biophysical profile was performed in the radiology department. non-reactive stress testing was performed by nursing staff in the birthing center. FINDINGS: BREATHING MOVEMENTS: 2 GROSS BODY MOVEMENTS: 2 TONE: 2 QUALITATIVE AMNIOTIC FLUID VOLUME: 2 PRESENTATION: Cephalic HEART RATE: 146 bpm AMNIOTIC FLUID VOLUME: 11.5 cm GESTATIONAL AGE: 37 weeks 4 days US/US OB BPP w non-stress IMPRESSION: Total biophysical profile score: 8/8 Electronically authenticated by: SOFIA KABA Date: 03/29/2024 14:09
--- NOTE | 2024-03-29 | US_ITS ---
[address] [address] Patient Name: KAILYN ACKERMAN MRN: [id number] date: 2000 Sex: F Assigned Patient [facility]: [facility] Current Patient Location: [facility] Accession/Order Number: [id number] Exam Date: 03/29/2024 12:55 Report Date: 03/29/2024 14:24 At the request of: VAL ANG Procedure: US OB umbilical artery EXAMINATION: US OB umbilical artery HISTORY: ANTEPARTUM PLACENTA CIRCUMVALLATE COMPARISON: No relevant comparison available. TECHNIQUE: Duplex Doppler evaluation of the umbilical arteries. FINDINGS: position: Cephalic presentation, longitudinal lie The umbilical arteries: 2 Heart rate: 146 beats minute Proximal umbilical artery: 102/37 cm/s. Resistive index 0.64. Ratio 2.8 MId umbilical artery: 79/31 cm/s. Resistive index 0.61. Ratio 2.5 Distal umbilical artery: 93/40 cm/s. Resistive index 0.57. Ratio 2.3 Forward flow identified throughout diastole US/US OB umbilical artery IMPRESSION: Normal exam. Class 0 Umbilical Artery: Class 0 = Normal umbilical artery blood velocity Class I = increased RI or PI, but still forward flow in diastole Class II = Absent end diastolic flow (AEDF) Class III = Reversal of end diastolic flow (REDF) Resistive Index (RI)<1 Systolic/Diastolic ratio (S:D): An S:D ratio of 2-3 after 34 wks is normal Systolic/Diastolic ratio (S:D): Age 16: 3.01 for the 10th percentile, 4.25 for the 50th percentile, 6.07 for the 90th percentile Age 20: 3.16 for the 10th percentile, 4.04 for the 50th percentile, 5.24 for the 90th percentile Age 24: 2.70 for the 10th percentile, 3.50 for the 50th percentile, 4.75 for the 90th percentile Age 28: 2.41 for the 10th percentile, 3.02 for the 50th percentile, 3.97 for the 90th percentile Age 30: 2.43 for the 10th percentile, 3.04 for the 50th percentile, 3.80 for the 90th percentile Age 32: 2.27 for the 10th percentile, 2.73 for the 50th percentile, 3.57 for the 90th percentile Age 34: 2.08 for the 10th percentile, 2.52 for the 50th percentile, 3.41 for the 90th percentile Age 36: 1.96 for the 10th percentile, 2.35 for the 50th percentile, 3.15 for the 90th percentile Age 38: 1.89 for the 10th percentile, 2.24 for the 50th percentile, 3.10 for the 90th percentile Age 40: 1.88 for the 10th percentile, 2.22 for the 50th percentile, 2.68 for the 90th percentile Age 41: 1.93 for the 10th percentile, 2.21 for the 50th percentile, 2.55 for the 90th percentile Age 42: 1.91 for the 10th percentile, 2.51 for the 50th percentile, 3.21 for the 90th percentile Uteroplacental Artery: Resistive Index (RI): Normal=<0.55 High Resistance=Bilateral notches (after 26 wks) and RI>0.55. Unilateral notches (after 26 wks) and RI>0.65 Systolic/Diastolic ratio (S:D) = 2-3 is normal after 32 weeks. Electronically authenticated by: SOFIA KABA Date: 03/29/2024 14:24
--- OUTSIDE RECORDS SUMMARY | 2024-03-29 07:00 | XMS_ITS | CCD ---
Author Organization [facility] Care Team Providers Care Hotel Assistant Manager Name Role Phone Kendra Witt Unavailable [...] MAURILIO, DR NEAL Attending Unavailable MAURILIO, DR ENAL Admitting Unavailable MAURILIO, DR NEAL Consulting Unavailable [...] Unavailable ZIEBER, DR MARS Mccarthy Consulting Unavailable EL [place]O, DR SOFIA Hull Consulting Unavailable REQUEST, DR [...] MAURILIO, DR NEAL Procedure Practitioner Unavailab ricardo [place], DR SOFIA Hull Consulting Unavailable EVER, NONE LISTED Primary Care Unavaila ble MAURILIO, DR NEAL Attending Unavailable MAURILIO, DR NEAL Admitting Unavailable MAURILIO, DR NEAL Consulting Unavailable [place], Viet Unavailable NONE, XXXX Primary Care Physician Unavailab le NO FAMILY, PHYSICIAN Primary Care Provider Unava MD Jose Moody Emergency Provider [phone] Jose Silverman Attending Unavailable Jose Silverman Admitting Unavailable NO FAMILY, PHYSICIAN Primary Care Unavailable Kenneth Mills Unavailable SELAM HUNTER Primary Care Physician [phone] JUVENAL THORPE Referring Unavailable JUANITO PABLO Attending [...] SHABANA Attending Unavailable JUVENAL THORPE Attending Unavailable ELILS SHABANA Attending Unavailable JUVENAL THORPE Attending Unavailable Allergies Allergy Classification Reported Allergen(s) Allergy Type Date of Onset Reaction(s) Facility (1 source) No Known Medication Allergies; Translations: [No Known Medication Allergies] Propensity to adverse reactions (disorder) [facility] Repository Medications Current Medications Medication Drug [...] day(s), # 28 cap(s), Refills(s) 0, Pharmacy: [facility], 170, cm, 08/27/23 9:49:00 EDT, Height/Length Dosing, 78.7, kg, 08/27/23 9:49:00 EDT, Weight Dosing Start Date: 08/27/23 Stop Date: 09/03/23 Status: Ordered Start: 01-03-2023 take 1 capsule by [facility] every twelve hours Keflex 500 mg Cap 500 mg = 1 cap(s), Oral, q12hr, # 20 cap(s), Refills(s) 0, Pharmacy: [facility], 170, cm, 01/03/23 22:44:00 EDT, Height/Length Dosing, 75.3, kg, 01/03/23 22:44:00 EDT, Weight Dosing Start Date: 01/03/23 Status: Ordered Citalopram (2 sources) Serotonin Reuptake Inhibitor Citalopram Hydrobromide Active dexamethasone 1 mg/ml / neomycin 3.5 mg/ml / polymyxin b 07674 unt/ml ophthalmic suspension (2 sources) Aminoglycoside Antibacterial, Polymyxin-class Antibacterial, Corticosteroid Start: 09-26-19 take 1 drop(s) into the eye(s) four times daily Maxitrol 3.5-93759-4.1 1 drop into affected eye Ophthalmic Four [...] Daily 30 tablet 6 12/01/2023 03/22/2024 Discontinued [place] (No Known Home Meds) (1 source) Start: 06-26-2021 [place] (No Known Home Meds) Active June 26, [...] Nausea/Vomiting, # 12 tab(s), Refills(s) 0, Pharmacy: [facility], 170, cm, 01/03/23 22:44:00 EDT, Height/Length Dosing, 75.3, kg, 01/03/23 22:44:00 EDT, Weight Dosing Start Date: 01/03/23 Status: Ordered Start: 06-09-2019 take 1 tablet by faby th three times daily Zofran ODT 4 mg Tab-Dis 4 mg = 1 tab(s), Oral, TID, # 15 tab(s), Refills(s) 0, Pharmacy: [facility] Start Date: 06/09/19 Status: [...] take 450 mg by mouth twice daily [place] Carbonate Discontinued 450 MG PO Twice daily [...] UA Negative Negative - 4(70) +++ mg/dL [facility] Blood, UA Negative Negative - 50 Miguel Ángel/mcL [facility] Clarity, UA Clear [facility] Color, UA Yellow [facility] Glucose, UA Negative Negative - 1999(110) ++++ mg/dL [facility] Interpretation and review of laboratory results Abnormal [facility] Ketones, UA Negative Negative - 160(16) ++++ mg/dL [facility] Leukocytes, UA Positive Negative - 500+++ Stefania/mcL [facility] Comment on above: small Nitrite, UA Negative Negative - Positive [facility] pH, UA 8.5 5 - 9 [facility] Protein, UA Trace Negative - 1999(20) ++++ mg/dL [facility] Spec Grav, UA 1.02 1 - 1.03 [facility] Urobilinogen, UA 0.2 0.2 - 12 mg/dL Count includes the [facility] Urinalysis macro (dipstick) panel (U)on 03-15-2024 Bilirubin, UA Negative Negative - 4(70) +++ mg/dL [facility] Blood, UA Negative Negative - 50 Miguel Ángel/mcL [facility] Clarity, UA Clear [facility] Color, UA Yellow [facility] Glucose, UA Negative Negative - 1999(110) ++++ mg/dL [facility] Interpretation and review of laboratory results Abnormal [facility] Ketones, UA Negative Negative - 160(16) ++++ mg/dL [facility] Leukocytes, UA Positive Negative - 500+++ Stefania/mcL [facility] Comment on above: small Nitrite, UA Negative Negative - Positive [facility] pH, UA 7.5 5 - 9 [facility] Protein, UA Negative Negative - 1999(20) ++++ mg/dL [facility] Spec Grav, UA 1.020 1 - 1.03 [facility] Urobilinogen, UA 4.0 0.2 - 12 mg/dL Count includes the [facility] Grp A Strp PCRon 02-04-2024 Grp A Strp Intrl Ctrl Pass Normal [facility] Comment on above: Order Comment: Order Added on by Discern Rule. Performed By: #### 1 [id number] #### [facility] [address] [place] [address] S. pyogenes DNA ALFREDO+probe Ql (Throat) Negative Normal [facility] Comment on above: Order Comment: Order Added on by Discern Rule. Result Comment: Test ing performed using DNA amplification. Performed By: #### 1 [id number] #### [facility] [address] [place] [address] ED Clinical Summaryon 2023 ED Clinical Summary ED Clinical Summary [address] [address] ED Clinical Summary Person Information Name: KAILYN ACKERMAN [facility] Age: 23 Years : 2000 Sex: Female Language: Bermudian PCP: SELAM HUNTER CNP Marital Status: Single Phone: [phone] MRN: Visit Id: Visit Reason: Headache; Body [...] 02/03/2024 11:17:23 02/03/2024 11:17:23 02/03/2024 11:17:23 ADDRESS: [address] [place] [id number] PHYS DOC NOTES: MEDICAL INFORMATION: Prescriptions Given: [...] With: Address: When: Juvenal THORPE [facility], [address] [place] [address] , [place] [address] Business (1) In 3 days 02/06/2024 With: Address: When: [place] [address] Business (1) In 3 days 02/06/2024 DIAGNOSIS: Sore throat; Viral URI Normal [facility] ED Note-Physicianon 02-03-20 ED Note-Physician ED [...] acute otitis media, chronic sinusitis, UTI, etc.) [[facility] PERFORMANCE EXCEPTION/EXCLUSIO N] [ ] The patient was diagnosed with upper respiratory infection and was prescribed or dispensed an antibiotic. [DOES NOT SATISFY [facility] PERFORMANCE] Medical Decision Making Patient is a [...] URI and will continue to follow-up with REBRANDER for further evaluation and management. We discussed [...] (more content not included)... Normal [facility] Comment on above: Result Comment: Elec tronically Signed By: Kiki CHUNG, Duc Shaw\.br\Date and Time Signed: 02/03/24 13:23 EDT\.br\Electronically Co-Signed By: Siva Schulte DO\.br\Date and Time Co-Signed: 02/03/24 14:44 EDT ED Patient Summaryon 024 ED Patient Summary ED Patient Summary [place] [id number] Patient Discharge Instructions Person Information Name: KAILYN ACKERMAN Age: 23 Years Arrival Date: 02/03/2024 09:21:41 Discharge Diagnosis: Sore throat; Viral URI Primary Care Physician: SELAM HUNTER CNP Provider Information Primary Provider: Siva Schulte DO Advanced Sports Teacher:Duc Swanson PA-C. The exam and treatment you received in the Emergency Department were for an urgent problem and are not intended as complete care. It is important that you follow up with a doctor, nurse practitioner, or physician?s ice cream freezer assistant for ongoing care. If your symptoms become worse or you do not improve as expected and you are unable to reach your usual health care provider, you should return to the Emergency Department. We are available 24 hours a day. KAILYN ACKERMAN has been given the following list of patient education materials, prescriptions and follow-up instructions: Follow-up Instructions: With: Address: When: Juvenal MAUR[address] [place] [id number] Business (1) In 3 days 02/06/2024 With: Address: When: SELAM HUNTER [address] [place] [address] [place] [phone] Business (1) In 3 days 02/06/2024 In the event that this physician does not participate in your insurance network, please consult with your insurance company to find a nearby participating provider. Patient Education Materials: Upper Respiratory Infection, Adult A MESSAGE TO ALL PATIENTS REGARDING OPIOIDS PRESCRIPTION OPIOIDS: WHAT YOU NEED TO KNOW Prescription opioids can be used to help relieve jlbslaqc-wc-qwurdk pain and are often prescribed following a [...] (more content not included)... Normal [facility] MICRO OTHER TESTSOrdered By: Nita Delgadillo on 02-03-2024 S. pyogenes Ag IA.rapid Ql (Throat) Negative (02/03/24 11:07 AM) Normal Negative [facility] Man Sero MICRO OTHER TESTSOrdered By: Asuncion Goncalves on 02-03-2024 Rapid COV Int NEG Ctl Pass (02/03/24 9:30 AM) Normal [facility] Man Sero Rapid COV Int POS Ctl Pass (02/03/24 9:30 AM) Normal [facility] Sero SARS-CoV+SARS-CoV-2 (COVID-19) Ag IA.rapid Ql (Resp) Not Detected 1 (02/03/24 9:30 AM) Normal Not Detected [facility] Man Sero Comment on above: Interpretive Data: Gato multani Integral Vision Veritor System for Rapid Detection of SARS-CoV-2 [...] Comment on above: Performed By: #### 2 [id number] #### [facility] [address] [place] [address] Rapid COV Int POS Ctl Pass Normal [facility] Comment on above: Performed By: #### 2 [id number] #### [facility] [address] [place] [address] SARS-CoV+SARS-CoV-2 (COVID-19) Ag IA.rapid Ql (Resp) Not detected Normal Not Detected [facility] Comment on above: Result Comment: The [employer]comitor? System for Rapid Detection of SARS-CoV-2 is [...] or revoked sooner. Performed By: #### 2 [id number] #### [facility] [address] [place] [address] Rapid Strep w/rfxon 02-03-20 24 S. pyogenes Ag IA.rapid Ql (Throat) Negative Normal Negative [facility] Comment on above: Performed By: #### 2 [id number] #### [facility] [address] [place] [address] ED Note-Physicianon 09-26-19 24 ED Note-Physician Basic [...] than 90,000. Ultrasound was obtained discussed with airframe technician. Intrauterine consistent with stated gestational age. Stable heart rate. Patient continues to demonstrate subchorionic hematoma. Also left-sided ovarian cyst similar to previous. Results were discussed with the patient. She is discharged home to continue pelvic rest and follow-up with REBRANDER. Patient was encouraged to return to the [...] In 3 days 09/26/2023 EDT [facility] [address] [facility] [place] [address]- Business (1) Additional Instructions: Patient Education Subchorionic [...] made to ensure accuracy, however, inadvertently computerized category director mistakes may be present. Appropriate healthcare [...] Yes., 04/10/2019 Lab Results Beta hCG Qnt: 41521 mIU/mL High (09/23/23 09:28:00) Diagnostic Results No qualifying data available. Normal [facility] Comment on above: Result Comment: Elec tronically Signed By: Venkat Lockwood PA-C\.br\Date and Time Signed: 09/23/23 11:45 EDT\.br\Electronically Co-Signed By: Wil Chandra DO\.br\Date and Time Co-Signed: 09/26/23 07:37 EDT [facility] Quanton 09-23-2023 [place] [address] m[IU]/mL High 1-3 [facility] Comment on above: Result Comment: 'F N ON < 1 - 3' ' 0.2 - 1 WEEK = 5 TO 50' ' 1 - 2 WEEKS = 50 - 500' ' 2 - 3 WEEKS = 100 - 5000' ' 3 - 4 WEEKS = 500 - 82543' ' 4 - 5 WEEKS = 1000 - 91185' ' 5 - 6 WEEKS = 87408 - 634789' ' 6 - 8 WEEKS = 78618 - 349183' ' 8 - 12 WEEKS = 17944 - 359326' Performed By: #### 2 [id number] ####[facility] [address] [place] [address] CHEMISTRYOrdered By: SYSTEM SYSTEM on 09-23-2023 [place] [address] m[IU]/mL High 1 - 3 mIU/mL [facility] Comment on above: Result Comment: 'F N ON < 1 - 3' ' 0.2 - 1 WEEK = 5 TO 50' ' 1 - 2 WEEKS = 50 - 500' ' 2 - 3 WEEKS = 100 - 5000' ' 3 - 4 WEEKS = 500 - 68582' ' 4 - 5 WEEKS = 1000 - 22801' ' 5 - 6 WEEKS = 51876 - 401537' ' 6 - 8 WEEKS = 43059 - 064868' ' 8 - 12 WEEKS = 96572 - 597845' Consent for Treatmenton 09-07 Consent for Treatment [id number]#[id number] Normal [facility] Discharge Instructionson Discharge Instructions [id number] Normal [facility] ED Clinical Summaryon 2023 ED Clinical Summary [address] [address] ED Clinical Summary Person Information Name: KAILYN ACKERMAN [facility] Age: 23 Years : 2000 Sex: Female Language: Bermudian PCP: NONE, XXXX Marital Status: Single Phone: [phone] MRN: Visit Id: Visit Reason: Back pain; [...] 11:52:16 09/23/2023 11:52:16 09/23/2023 11:52:16 ADDRESS: [facility] [id number] PHYS DOC NOTES: MEDICAL INFORMATION: Prescriptions Given: [...] Follow up: With: Address: When: Juvenal MAURILIO [facility], [address] [place] [address] [place] [address] Business (1) In 3 days 09/26/2023 DIAGNOSIS: Other antepartum hemorrhage, unspecified trimester; Subchorionic bleed; Vaginal bleeding in Normal [facility] ED Patient Education Noteon 09-23-2023 ED [...] Reviewed: 02/19/2021 Elsevier Patient Education ? 2022 [employer] Normal [facility] ED Patient Summaryon 024 ED Patient Summary [address] [address] Patient Discharge Instructions Person Information Name: KAILYN ACKERMAN Age: 23 Years Arrival Date: 09/23/2023 09:10:07 Discharge Diagnosis: Other antepartum hemorrhage, unspecified trimester; Subchorionic bleed; Vaginal bleeding in Primary Care Physician: EZEQUIEL, XXXX Provider Information Primary Provider: Wil Chandra DO Advanced Sports Teacher:Venkat Leal PA-C The exam and treatment you received in the Emergency Department were for an urgent problem and are not intended as complete care. It is important that you follow up with a doctor, nurse practitioner, or physician?s ice cream freezer assistant for ongoing care. If your symptoms become worse or you do not improve as expected and you are unable to reach your usual health care provider, you should return to the Emergency Department. We are available 24 hours a day. KAILYN ACKERMAN has been given the following list of patient education materials, prescriptions and follow-up instructions: Follow-up Instructions: With: Address: When: Juvenal [facility], [address] [place] [address] [place] [address] [facility] (1) In 3 days 09/26/2023 In the event that this physician does not participate in your insurance network, please consult with your insurance company to find a nearby participating provider. Patient Education Materials: Subchorionic Hematoma A MESSAGE TO ALL PATIENTS REGARDING OPIOIDS PRESCRIPTION OPIOIDS: WHAT YOU NEED TO KNOW Prescription opioids can be used to help relieve otsjvzlm-vc-joqmmx pain and are often prescribed following a [...] health care p (more content not included)... [facility] Prescriptions/Work Noteson 0 09-23-2023 Prescriptions/Work Notes [id number] Normal [facility] US 1st Trimesteron 09-23-2023 US 1st [...] least 66% of the gestational sac circumference. Williams Rump Length: 3.2 cm, which corresponds Composite [...] Dates Uterus Position Anteverted Normal [facility] C Urineon 08-29-2023 Bacteria identified Cx [...] performed at: [facility], [address] [place] [address], [facility] , , [facility] Comment on above: Performed By: #### 4 [id number] ####[address] [address] ABO/Rhon 08-27-2023 ABO/Rh Positive Invalid Interpretation Code [facility] Comment on above: Performed By: #### 2 [id number] ####[place] [address] [place] [address] BLOOD BANKOrdered By: Liza Xavier on 08-27-2023 ABO/Rh Interp Positive Invalid Interpretation Code [facility] BB Subsection BMPon 08-27-2023 Anion gap [Moles/Vol] 11 mmol/L Normal 6-16 [facility] Comment on above: Performed By: #### 1 [id number], [id number], [id number] ####[facility] [address] [place] [address] Calcium [Mass/Vol] 9.3 mg/dL Normal 8.9-11.1 [facility] Comment on above: Performed By: #### 1 [id number], 6331042, [id number] ####[facility] [address] [place] [address] Chloride [Moles/Vol] 104 mmol/L Normal 101-111 [facility] Comment on above: Performed By: #### 1 [id number], 8096528, [id number] ####[facility] [address] [place] [address] CO2 [Moles/Vol] 24 mmol/L Normal 21-31 [facility] Comment on above: Performed By: #### 1 1340045, [id number], [id number] ####[facility] [address] [place] [address] Creatinine [Mass/Vol] 0.6 mg/dL Normal 0.5-1.3 [facility] Comment on above: Performed By: #### 1 [id number], 8487302, 9266090 ####[facility] [address] [place] [address] Glucose [Mass/Vol] 87 mg/dL Normal 55-199 [facility] Comment on above: Performed By: #### 1 1530144, 0450353, 3145957 ####[facility] [address] [place] [address] Potassium [Moles/Vol] 3.7 mmol/L Normal 3.5-5.3 [facility] Comment on above: Performed By: #### 1 [id number], 9615803, 9869869 ####[facility] [address] [place] [address] Sodium [Moles/Vol] 135 mmol/L Normal 135-145 [facility] Comment on above: Performed By: #### 1 [id number], 6103562, 2294178 ####[facility] [address] [place] [address] Urea nitrogen [Mass/Vol] 8 mg/dL Normal 5-21 [facility] Comment on above: Performed By: #### 1 [id number], 8488227, 7333864 ####[facility] [address] [place] [address] Urea nitrogen/Creatinine [Mass ratio] 13 No Units Normal 10-20 [facility] Comment on above: Performed By: #### 1 9636956, 9193094, 6006502 ####[address] [address] [facility] Quanton 08-27-2023 [place] [address] m[IU]/mL High 1-3 [facility] Comment on above: Result Comment: 'F N ON < 1 - 3' ' 0.2 - 1 WEEK = 5 TO 50' ' 1 - 2 WEEKS = 50 - 500' ' 2 - 3 WEEKS = 100 - 5000' ' 3 - 4 WEEKS = 500 - 54577' ' 4 - 5 WEEKS = 1000 - 98597' ' 5 - 6 WEEKS = 03536 - 197725' ' 6 - 8 WEEKS = 38557 - 387407' ' 8 - 12 WEEKS = 70758 - 397891' Performed By: #### 2 [id number] ####[facility] [address] [place] [address] CBC w/ Auto Diffon Basophils/100 WBC (Bld) 0.6 % Normal 0.0-2.0 [facility] Comment on above: Performed By: #### 1 [id number], 7753261, 3874144 ####[address] [address] Basophils/Leukocytes Auto (Bld) [Pure # fraction] 0.0 E9/L Normal 0.0-0.2 [facility] Comment on above: Performed By: #### 1 [id number], 4692002, 3476901 ####[address] [address] Eosinophils (Bld) [#/Vol] 0.1 E9/L Normal 0.0-0.5 [facility] Comment on above: Performed By: #### 1 8796664, 1972533, 0752607 ####[address] [address] Eosinophils/100 WBC (Bld) 2.0 % Normal 0.0-8.0 [facility] Comment on above: Performed By: #### 1 9187425, 7902008, 7789069 ####[address] [address] Erythrocyte distribution width (RBC) [Ratio] 15.0 % High 10.9-14.2 [facility] Comment on above: Performed By: #### 1 8731425, 7393557, 8747686 ####[address] [address] Hematocrit (Bld) [Volume fraction] 37.4 % Normal 34.0-46.0 [facility] Comment on above: Performed By: #### 1 0596863, 1124898, 4316679 ####[address] [address] Hemoglobin (Bld) [Mass/Vol] 12.7 g/dL Normal 12.0-16.0 [facility] Comment on above: Performed By: #### 1 6143263, 7973928, 0188571 ####[address] [address] Lymphocytes (Bld) [#/Vol] 2.0 E9/L Normal 1.0-4.0 [facility] Comment on above: Performed By: #### 1 5050632, 0715941, 2787239 ####[address] [address] Lymphocytes/100 WBC (Bld) 28.1 % Normal 14.0-50.0 [facility] Comment on above: Performed By: #### 1 5857772, 7741024, 7910755 ####[address] [address] MCH (RBC) [Entitic mass] 28.4 pg Normal 27.0-34.0 [facility] Comment on above: Performed By: #### 1 5630748, 9617605, 6092634 ####[address] [address] MCHC (RBC) [Mass/Vol] 33.8 g/dL Normal 31.4-36.0 [facility] Comment on above: Performed By: #### 1 1459325, 1950802, 0579497 ####[address] [address] MCV (RBC) [Entitic vol] 84.0 fL Normal 80.0-100.0 [facility] Comment on above: Performed By: #### 1 2716790, 6179294, 4413086 ####[address] [address] Monocytes (Bld) [#/Vol] 0.5 E9/L Normal 0.2-1.0 [facility] Comment on above: Performed By: #### 1 8543054, 4718601, 7856694 ####[address] [address] Neutrophils (Bld) [#/Vol] 4.5 E9/L Normal 2.0-7.5 [facility] Comment on above: Performed By: #### 1 9591606, 5742280, 0400274 ####[address] [address] Neutrophils/100 WBC (Bld) 61.9 % Normal 36.0-75.0 [facility] Comment on above: Performed By: #### 1 0693557, 0646155, 2214877 ####[address] [address] Platelet mean volume (Bld) [Entitic vol] 7.9 fL Normal 6.4-10.8 [facility] Comment on above: Performed By: #### 1 5080793, 5957164, 0277119 ####[address] [address] Platelets (Bld) [#/Vol] 252.0 E9/L Normal 150.0-500.0 [facility] Comment on above: Performed By: #### 1 3494841, 3732014, 7011677 ####[facility] [address] [place] [address] RBC (Bld) [#/Vol] 4.5 E12/L Normal 4.3-5.9 [facility] Comment on above: Performed By: #### 1 9971782, 2207533, 9809615 ####[facility] [address] [place] [address] WBC corrected for nucl RBC Auto (Bld) [#/Vol] 7.2 E9/L Normal 4.0-11.0 [facility] Comment on above: Performed By: #### 1 1350446, 8095992, 9232999 ####[facility] [address] [place] [address] CHEMISTRYOrdered By: SYSTEM SYSTEM on 08-27-2023 Anion [...] 199 mg/[place] [address] m[IU]/mL High 1 - 3 mIU/mL [facility] Comment on above: Result Comment: 'F N ON < 1 - 3' ' 0.2 - 1 WEEK = 5 TO 50' ' 1 - 2 WEEKS = 50 - 500' ' 2 - 3 WEEKS = 100 - 5000' ' 3 - 4 WEEKS = 500 - 40353' ' 4 - 5 WEEKS = 1000 - 70008' ' 5 - 6 WEEKS = 32502 - 896392' ' 6 - 8 WEEKS = 88035 - 231208' ' 8 - 12 WEEKS = 68785 - 443616' Potassium [Moles/Vol] 3.7 mmol/L Normal 3.5 - 5.3 mmol/L Remisol Chem Sodium [Moles/Vol] 135 mmol/L Normal 135 - 145 mmol/L Remisol Chem Urea nitrogen [Mass/Vol] 8 mg/dL Normal 5 - 21 mg/d L Remisol Chem Urea nitrogen/Creatinine [Mass ratio] 13 mg/mg Normal 10 - 20 Remisol Chem Consent for Treatmenton 08-08 Consent for Treatment [id number] Normal [facility] Discharge Instructionson Discharge Instructions [id number] Normal [facility] ED Clinical Summaryon 2023 ED Clinical Summary [place] [id number] ED Clinical Summary Person Information Name: KAILYN ACKERMAN [facility] Age: 22 Years : 2000 Sex: Female Language: Bermudian PCP: SELAM HUNTER CNP Marital Status: Single Phone: [phone] Visit Id: Visit Reason: Vaginal bleeding - [...] 12:34:16 08/27/2023 12:34:16 08/27/2023 12:34:16 ADDRESS: [address] [facility] [id number] PHYS DOC NOTES: MEDICAL INFORMATION: Prescriptions Given: Medications to Continue Taking That Have Changed [facility], [address] [place], [place] [id number], [phone] START: cephalexin (Keflex 500 mg Cap) 1 [...] Urinary Tract Infection; Urinary Tract Infection, Adult, Fjni-oz-Zkqj; Subchorionic Hematoma Follow up: With: Address: When: Juvenal THORPE [address] [place] [address] Business (1) In 3 days 08/30/2023 With: Address: When: [place] [address] Business (1) In 3 days DIAGNOSIS: Other antepartum hemorrhage, unspecified trimester; Subchorionic bleed; UTI (urinary tract infection) during ; Vaginal bleeding in Normal [facility] ED Note-Physicianon 08-27-19 ED Note-Physician Basic [...] and Complexity of Problems Differential Diagnosis: [] [facility] Data External documents reviewed: [] My [...] day(s), # 28 cap(s), Refills(s) 0, Pharmacy: [facility], 170, cm, 08/27/23 9:49:00 EDT, Height/Length [...] THORPE In 3 days 08/30/[address] [place] [address]- Business (1) Additional Instructions: SELAM HUNTER In 3 days [address] [place] [address]- Business (1) Additional Instructions: Patient Education and Urinary Tract Infection Urinary Tract Infection, Adult, Dnnj-kh-Yhro Subchorionic Hematoma Attestation Patient seen and evaluated by the physician ice cream freezer assistant. Attending physician was present in the emergency department and s (more content not included)... [facility] Comment on above: Result Comment: [...] provider. Document Revised: 01/09/2022 Document Reviewed: 01/09/2022 [employer] Patient Education ? 2022 [employer]. Urinary Tract Infection, Adult A urinary tract [...] (more content not included)... Normal [facility] ED Patient Summaryon 024 ED Patient Summary [address] [address] Patient Discharge Instructions Person Information Name: KAILYN ACKERMAN Age: 22 Years Arrival Date: 08/27/2023 09:37:12 Discharge Diagnosis: Other antepartum hemorrhage, unspecified trimester; Subchorionic bleed; UTI (urinary tract infection) during ; Vaginal bleeding in Primary Care Physician: SELAM HUNTER CNP Provider Information Primary Provider: Leroy CappsEmily Advanced Sports Teacher:None The exam and treatment you received in the Emergency Department were for an urgent problem and are not intended as complete care. It is important that you follow up with a doctor, nurse practitioner, or physician?s ice cream freezer assistant for ongoing care. If your symptoms [...] Follow-up Instructions: With: Address: When: Juvenal RAMIREZO [facility], [address] [facility] [place] [address] Business (1) In 3 days 08/30/2023 With: Address: When: [place] [address] Business (1) In 3 days In the event that this physician does not participate in your insurance network, please consult with your insurance company to find a nearby participating provider. Patient Education Materials: and Urinary Tract Infection; Urinary Tract Infection, Adult, Kmfp-zl-Ezrg; Subchorionic Hematoma A MESSAGE TO ALL PATIENTS REGARDING OPIOIDS PRESCRIPTION OPIOIDS: WHAT YOU NEED TO KNOW Prescription opioids can be used to help relieve tcmnfapg-kn-aebzyi pain and are often prescribed following a [...] (more content not included)... Normal [facility] HEMATOLOGYOrdered By: SYSTEM SYSTEM on 08-27-2023 [...] Color (U) Light-Yellow Normal Yellow [facility] Comment on above: Result Comment: Micr oscopic readings are only performed on those samples that meet specific criteria set forth by [facility]. Performed By: #### 4 [id number], [id number] ####[facility] [address] [place] [address] Glucose (U) [Mass/Vol] Negative Normal Negative [facility] Comment on above: Performed By: #### 4 [id number], [id number] ####[facility] [address] [place] [address] Ketones Ql (U) Negative Normal Negative [facility] Comment on above: Performed By: #### 4 [id number], [id number] ####[place] [address] UA Blood 3+ Abnormal Negative [facility] Comment on above: Performed By: #### 4 [id number], [id number] ####[place] [address] UA Bacteria 1+ [id number] Abnormal Trace [facility] Comment on above: Performed By: #### 4 [id number], [id number] ####[place] [address] UA Clarity Turbid Abnormal Clear [facility] Comment on above: Performed By: #### 4 [id number], [id number] ####[place] [address] UA Hyal Cast 0-3 Normal 0-3 [facility] Comment on above: Performed By: #### 4 [id number], [id number] ####[facility] [address] [place] [address] UA Leuk Est 250 Stefania/uL Abnormal Negative [facility] Comment on above: Performed By: #### 4 [id number], [id number] ####[facility] [address] [place] [address] UA Mucous Trace Normal Negative [facility] Comment on above: Performed By: #### 4 [id number], [id number] ####[address] [address] UA Nitrite Negative Normal Negative [facility] Comment on above: Performed By: #### 4 [id number], [id number] ####[address] [address] UA pH 5.5 Invalid Interpretation Code 5.0-9.0 [facility] Comment on above: Performed By: #### 4 [id number], [id number] ####[place] [address] UA Protein 1+ mg/dL Abnormal Negative [facility] Comment on above: Performed By: #### 4 [id number], [id number] ####[place] [address]57 UA RBC 4-20 Abnormal 0-3 [facility] Comment on above: Performed By: #### 4 [id number], [id number] ####[place] [address] UA Spec Grav 1.018 Invalid Interpretation Code 1.005-1.030 [facility] Comment on above: Performed By: #### 4 [id number], [id number] ####[address] [address] UA Squam Epithelial 3-4 Abnormal 0-2 [facility] Comment on above: Performed By: #### 4 [id number], [id number] ####[address] [address] UA Urobilinogen Negative Normal Negative [facility] Comment on above: Performed By: #### 4 [id number], [id number] ####[address] [address] UA WBC 6-15 Abnormal 0-5 [facility] Comment on above: Performed By: #### 4 [id number], [id number] ####[address] [address] Urobilinogen (U) [Mass/Vol] Negative Normal Negative [facility] Comment on above: Performed By: #### 4 [id number], [id number] ####[facility] [address] [place] [address] UA Spec Desc Clean Catch Normal [facility] Comment on above: Performed By: #### 4 [id number], [id number] ####[facility] [address] [place] [address] URINALYSISOrdered By: SYSTEM SYSTEM on 08-27-2023 Color (U) Light-Yellow 1 (08/27/23 9:55 AM) Normal Yellow [facility] UA Auto SS Comment on above: Interpretive Data: M icroscopic readings are only performed on those samples that meet specific criteria set forth by [facility]. Glucose (U) [Mass/Vol] Negative Normal [...] Desc Clean Catch (08/27/23 9:55 AM) Normal [facility] UA Auto SS US 1st Trimesteron 08-27-2023 US 1st Trimester Exam Date/Time: 08/27/2023 11:54 EDT Reason for Exam: Other (please specify) Report [facility] [phone] IMPRESSION: Single live intrauterine with estimated sonographic [...] heart rate is measured at 120 bpm. Williams-rump length 4.77 mm. Estimated sonographic gestational age [...] Performed FHR (bpm) 120 Normal [facility] US Transvaginalon 08-27-2023 US Transvaginal Exam Date/Time: 08/27/2023 11:55 EDT Reason for Exam: Other (please specify) Report [facility] [phone] Please see ultrasound pelvis, for report of transvaginal examination. Ordering Provider: Hudson Riley FINAL REPORT Dictated: 08/27/2023 12:33 pm Zach Deng MD Signed (Electronic Signature): 08/27/2023 12:33 pm Signed by: Zach Deng MD Transcribed by: KIRK Technologist: SHELLEY Normal [facility] eGFRon 08-27-2023 eGFR 131 mL/min/1.73 m2 Normal >=59 [facility] Comment on above: Order Comment: Order added by Discern Expert. Performed By: #### 1 [id number], [id number], [id number] ####[facility] [address] [place] [address] [facility] Quanton 08-19-2023 HCG.beta subunit Qn 4261 m[IU]/mL High 1-3 [facility] Comment on above: Result Comment: 'F N ON < 1 - 3' ' 0.2 - 1 WEEK = 5 TO 50' ' 1 - 2 WEEKS = 50 - 500' ' 2 - 3 WEEKS = 100 - 5000' ' 3 - 4 WEEKS = 500 - 01995' ' 4 - 5 WEEKS = 1000 - 90135' ' 5 - 6 WEEKS = 04857 - 257091' ' 6 - 8 WEEKS = 66248 - 384759' ' 8 - 12 WEEKS = 15905 - 917148' Performed By: #### 2 [id number] ####[facility] [address] [place] [address] Physician Orderon 08-19-2023 Physician Order [id number] Normal [facility] CHEMISTRYOrdered By: Juancho benitez on 01-03-2023 [...] 108 mL/min/1.73 m2 Normal >=59mL/min/1 .73 m2 [facility] Chem S HCG.beta subunit Qn 1572 m[IU]/mL [...] (U) No growth to date Continuing incubation [facility] MICRO OTHER TESTSOrdered By: Juancho Fitch on 01-03-2023 S. pyogenes Ag IA.rapid Ql (Throat) Positive *ABN* (01/03/23 10:52 PM) Invalid Interpretation Code Negative [facility] Man Sero SEROLOGYOrdered By: Juancho mullins on [...] Interpretation Code Negative [facility] UA Auto SS [place].plasma/[place].R BC (Bld) [Mass ratio] 0-3 /HPF Normal [...] [facility] UA Auto SS Urobilinogen Qn (U) 1.7812777 {Georgina'U}/dL Normal 0.0 - 1.0 EU/dL [facility] UA Auto SS WBC Auto Ql (U) 1+ *ABN* (01/03/23 10:52 PM) Invalid Interpretation Code Negative [facility] UA Auto SS WBC LM.HPF (Urine sed) [#/Area] 6-15 /HPF Invalid Interpretation Code 0-5/HPF [facility] UA Auto SS Alanine aminotransferase [En zymatic activity/volume] in Serum or PlasmaOrdered By: Jose Silverman on 10-02-2022 ALT [Catalytic activity/Vol] 13 U/L Normal 7-52 [facility] Comment on above: Performed By: #### C BC, CMP, ETOH #### [facility] [address] [place] [address] [place] Albumin [Mass/volume] in Ser um or Plasma by Bromocresol green (BCG) dye binding methoOrdered By: Jose Silverman on 10-02-2022 Albumin BCG dye [Mass/Vol] 5.0 g/dL 3.5-5.7 [facility] Alkaline phosphatase [Enzyma tic activity/volume] in Serum or PlasmaOrdered By: Jose Silverman on 10-02-2022 ALP [Catalytic activity/Vol] 69 U/L Normal 34-104 [facility] Comment on above: Performed By: #### C BC, CMP, ETOH #### [address] Amphetamine Screen Ql (U)Ord ered By: Jose Silverman on 10-02-2022 Amphetamines Ql (U) Negative Negative [facility] Aspartate aminotransferase [ Enzymatic activity/volume] in Serum or PlasmaOrdered By: Jose Silverman on 10-02-2022 AST [Catalytic activity/Vol] 21 U/L Normal 13-39 [facility] Comment on above: Performed By: #### C BC, CMP, ETOH #### [address] Automated basophil %Ordered By: Jose Silverman on 10-02-2022 Basophils/100 WBC (Bld) 0.5 % Normal . [facility] Comment on above: Performed By: #### C BC, CMP, ETOH #### [address] Automated basophil countOrde red By: Jose Silverman on 10-02-2022 Basophils (Bld) [#/Vol] 0.1 10*3/uL Normal 0.0-0.2 [facility] Comment on above: Result Comment: PERF ORMED BY: [place] [address] PATHOLOGIST IRONWORKER APPRENTICE SHOP ASHELY CAREY M.D. Performed By: #### C BC, CMP, ETOH #### [address] Automated blood monocyte cou ntOrdered By: Jose Silverman on 10-02-2022 Monocytes (Bld) [#/Vol] 0.7 10*3/uL Normal 0.0-0.8 [facility] Comment on above: Performed By: #### C BC, CMP, ETOH #### [address] Automated eosinophil %Ordere d By: Jose Silverman on 10-02-2022 Eosinophils/100 WBC (Bld) 2.0 % Normal . [facility] Comment on above: Performed By: #### C BC, CMP, ETOH #### [address] Automated eosinophil countOr dered By: Jose Silverman on 10-02-2022 Eosinophils (Bld) [#/Vol] 0.3 10*3/uL Normal 0.0-0.45 [facility] Comment on above: Performed By: #### C BC, CMP, ETOH #### [address] Automated erythrocytes count in urine sediment (number/area)Ordered By: Jose Sliverman on 10-02-2022 RBC Auto (Urine sed) [#/Area] 0-1 [HPF] 0-4 [facility] Automated leukocytes count i n urine sediment (number/area)Ordered By: Jose Silverman on 10-02-2022 WBC Auto (Urine sed) [#/Area] 10-19 [HPF] 0-4 [facility] Automated monocyte %Ordered By: Jose Silverman on 10-02-2022 Monocytes/100 WBC (Bld) 5.7 % Normal . [facility] Comment on above: Performed By: #### C BC, CMP, ETOH #### [facility] [address] Automated neutrophil %Ordere d By: Jose Silverman on 10-02-2022 Neutrophils/100 WBC (Bld) 68.7 % Normal . [facility] Comment on above: Performed By: #### C BC, CMP, ETOH #### [facility] [address] Barbiturates [Presence] in U rine by Screen methodOrdered By: Jose Silverman on 10-02-2022 Barbiturates Screen Ql (U) Negative Negative [facility] Benzodiazepines Screen Ql (U )Ordered By: Jose Silverman on 10-02-2022 Benzodiazepines Ql (U) Negative Negative [facility] Benzoylecgonine [Presence] i n Urine by Screen methodOrdered By: Jose Silverman on 10-02-2022 Benzoylecgonine Screen Ql (U) Negative Negative [facility] Bilirubin Test strip Ql (U)O rdered By: Jose Silverman on 10-02-2022 Bilirubin Ql (U) Negative Negative [facility] Bilirubin.total [Mass/volume ] in Serum or PlasmaOrdered By: Jose Silverman on 10-02-2022 Bilirubin [Mass/Vol] 0.3 mg/dL Normal 0.3-1.[address] [facility] Comment on above: Performed By: #### C BC, CMP, ETOH #### [facility] [address] [place] [address] Calcium [Mass/volume] in Ser um or PlasmaOrdered By: Jose Silverman on 10-02-2022 Calcium [Mass/Vol] 9.6 mg/dL Normal 8.6-10.3 [facility] Comment on above: Performed By: #### C BC, CMP, ETOH #### [facility] [address] [place] [address] [place] Cannabinoids [Presence] in U rine by Screen methodOrdered By: Jose Silverman on 10-02-2022 Cannabinoids Screen Ql (U) Negative Negative [facility] Comment on above: These are unconfirme d results and should not be used for legal purposes. Drug Cut-Off Concentration: AMPH 1000 ng/mL MIAH 200 ng/mL AYAN 200 ng/mL COCM 300 ng/mL OP 300 ng/mL PCP 25 ng/mL THC 20 ng/mL Carbon dioxide, total [Moles /volume] in Serum or PlasmaOrdered By: Jose Silverman on 10-02-2022 CO2 [Moles/Vol] 27.2 mmol/L Normal 21.0-31.0 [facility] Comment on above: Performed By: #### C BC, CMP, ETOH #### [address] Chloride [Moles/volume] in S brian or PlasmaOrdered By: Jose Silverman on 10-02-2022 Chloride [Moles/Vol] 101 mmol/L Normal 98-[address] [facility] Comment on above: Performed By: #### C BC, CMP, ETOH #### [address] Color Auto (U)Ordered By: Loli Silverman on 10-02-2022 Color (U) Yellow Yellow [facility] Complete Blood Count Auto Di ffon 10-02-2022 Mean Corpuscular HGB Conc 32.0 g/dL Normal 32.0-35.0 [facility] Comment on above: Performed By: #### C BC, CMP, ETOH #### [place] [address] [place] Monocytes/100 WBC (Bld) 17.72 % Normal 0.00-20.[address] [facility] Comment on above: Performed By: #### C BC, CMP, ETOH #### [address] NRBC% 0.0 /100{WBC} Normal 0-0.5 [facility] Comment on above: Performed By: #### C BC, CMP, ETOH #### [address] Comprehensive Metabolic Pane tung 10-02-2022 Albumin [Mass/Vol] 5.0 g/dL Normal 3.5-5.7 [facility] Comment on above: Performed By: #### C BC, CMP, ETOH #### [facility] [address] Creatinine Clr Calc Pharmacy 107.48 Normal [facility] Comment on above: Result Comment: PERF ORMED BY: [place] [address] PATHOLOGIST IRONWORKER APPRENTICE SHOP ASHELY CAREY M.D. Performed By: #### C BC, CMP, ETOH #### [address] GFR/1.73 sq M.predicted MDRD (S/P/Bld) [Vol rate/Area] mL/min/{1.73_m2} [facility] Comment on above: Performed By: #### C BC, CMP, ETOH #### [address] Creatinine [Mass/volume] in Serum or PlasmaOrdered By: Jose Silverman on 10-02-2022 Creatinine [Mass/Vol] 0.89 mg/dL Normal 0.60-1.20 [facility] Comment on above: Performed By: #### C BC, CMP, ETOH #### [place] [address] [place] Dipstick and Microscopicon 0 10-02-2022 Appearance (U) Clear Normal Clear [facility] Comment on above: Order Comment: Name Collection Type:: Clean-Voided Midstream Performed By: #### U RDS, ADDONUAPLUS, CUU, UHCG #### [place] [address] [place] Bacteria,Urine 2+ High None Seen [facility] Comment on above: Order Comment: Name Collection Type:: Clean-Voided Midstream Performed By: #### U RDS, ADDONUAPLUS, CUU, UHCG #### [place] [address] [place] Bilirubin,Urine Negative Normal Negative [facility] Comment on above: Order Comment: Name Collection Type:: Clean-Voided Midstream Performed By: #### U RDS, ADDONUAPLUS, CUU, UHCG #### [place] [address] [place] Color (U) Yellow Normal Yellow [facility] Comment on above: Order Comment: Name Collection Type:: Clean-Voided Midstream Performed By: #### U RDS, ADDONUAPLUS, CUU, UHCG #### [facility] [address] [place] [address] Glucose Ql (U) Normal Normal Normal [facility] Comment on above: Order Comment: Name Collection Type:: Clean-Voided Midstream Performed By: #### U RDS, ADDONUAPLUS, CUU, UHCG #### [address] Hyaline Casts,Urine 0-8 Normal 0-8 [facility] Comment on above: Order Comment: Name Collection Type:: Clean-Voided Midstream Performed By: #### U RDS, ADDONUAPLUS, CUU, UHCG #### [address] Ketones Ql (U) Negative Normal Negative [facility] Comment on above: Order Comment: Name Collection Type:: Clean-Voided Midstream Performed By: #### U RDS, ADDONUAPLUS, CUU, UHCG #### [facility] [address] [place] [address] Leukocyte esterase Test strip Ql (U) 3+ High Negative [facility] Comment on above: Order Comment: Name Collection Type:: Clean-Voided Midstream Performed By: #### U RDS, ADDONUAPLUS, CUU, UHCG #### [facility] [address] [place] [address] [place] Nitrite,Urine Negative Normal Negative [facility] Comment on above: Order Comment: Name Collection Type:: Clean-Voided Midstream Performed By: #### U RDS, ADDONUAPLUS, CUU, UHCG #### [facility] [address] [place] [address] [place] Occult Blood,Urine Negative Normal Negative [facility] Comment on above: Order Comment: Name Collection Type:: Clean-Voided Midstream Performed By: #### U RDS, ADDONUAPLUS, CUU, UHCG #### [address] pH (U) 6.5 [pH] Normal 5.0-9.0 [facility] Comment on above: Order Comment: Name Collection Type:: Clean-Voided Midstream Performed By: #### U RDS, ADDONUAPLUS, CUU, UHCG #### [address] Protein,Urine Negative Normal Negative [facility] Comment on above: Order Comment: Name Collection Type:: Clean-Voided Midstream Performed By: #### U RDS, ADDONUAPLUS, CUU, UHCG #### [address] RBC LM.HPF (Urine sed) [#/Area] 0 /[HPF] Normal 0-4 [facility] Comment on above: Order Comment: Name Collection Type:: Clean-Voided Midstream Performed By: #### U RDS, ADDONUAPLUS, CUU, UHCG #### [address] Specificy [place],Urine 1.021 Normal 1.001-1.030 [facility] Comment on above: Order Comment: Name Collection Type:: Clean-Voided Midstream Performed By: #### U RDS, ADDONUAPLUS, CUU, UHCG #### [address] Squamous Epithelial Cell,Urine 10-19 High 0-2 [facility] Comment on above: Order Comment: Name Collection Type:: Clean-Voided Midstream Performed By: #### U RDS, ADDONUAPLUS, CUU, UHCG #### [place] [address] [place] Urobilinogen,Urine Normal Normal Normal [facility] Comment on above: Order Comment: Name Collection Type:: Clean-Voided Midstream Performed By: #### U RDS, ADDONUAPLUS, CUU, UHCG #### [place] [address] [place] WBC,Urine 10-19 High 0-4 [facility] Comment on above: Order Comment: Name Collection Type:: Clean-Voided Midstream Performed By: #### U RDS, ADDONUAPLUS, CUU, UHCG #### [address] Drug Screen,Urineon 10-03-19 Amphetamine Screen,Urine Negative Normal Negative [facility] Comment on above: Performed By: #### U RDS, ADDONUAPLUS, CUU, UHCG #### [address] Barbiturate Screen,Urine Negative Normal Negative [facility] Comment on above: Performed By: #### U RDS, ADDONUAPLUS, CUU, UHCG #### [address] Benzodiazepines Screen,Urine Negative Normal Negative [facility] Comment on above: Performed By: #### U RDS, ADDONUAPLUS, CUU, UHCG #### [address] Cannabinoid Screen,Urine Negative Normal Negative [facility] Comment on above: Result Comment: Thes e are unconfirmed results and should not be used for legal purposes. Drug Cut-Off Concentration: AMPH 1000 ng/mL MIAH 200 ng/mL AYAN 200 ng/mL COCM 300 ng/mL OP 300 ng/mL PCP 25 ng/mL THC 20 ng/mL PERFORMED BY: [place] [address] PATHOLOGIST IRONWORKER APPRENTICE SHOP ASHELY CAREY M.D. Performed By: #### U RDS, ADDONUAPLUS, CUU, UHCG #### [place] [address] [place] Cocaine Screen,Urine Negative Normal Negative [facility] Comment on above: Performed By: #### U RDS, ADDONUAPLUS, CUU, UHCG #### [address] Opiate Screen,Urine Negative Normal Negative [facility] Comment on above: Performed By: #### U RDS, ADDONUAPLUS, CUU, UHCG #### [facility] [address] Phencyclidine Screen,Urine Negative Normal Negative [facility] Comment on above: Performed By: #### U RDS, ADDONUAPLUS, CUU, UHCG #### [address] Erythrocyte distribution wid th [Ratio] by Automated countOrdered By: Jose Silverman on 10-02-2022 Erythrocyte distribution width (RBC) [Ratio] 15.8 % High 11.9-15.3 [facility] Comment on above: Performed By: #### C BC, CMP, ETOH #### [place] [address] [place] Erythrocytes [#/volume] in B lood by Automated countOrdered By: Jose Silverman on 10-02-2022 RBC (Bld) [#/Vol] 5.31 10*6/uL High 3.60-5.00 [facility] Comment on above: Performed By: #### C BC, CMP, ETOH #### [address] Ethanol [Mass/volume] in Ser um or PlasmaOrdered By: Jose Silverman on 10-02-2022 Ethanol [Mass/Vol] mg/dL Normal [facility] Comment on above: Performed By: #### C BC, CMP, ETOH #### [facility] [address] [place] [address] Ethanol [Mass/Vol] TNP [facility] Comment on above: Test not performed Ethyl Alcohol Profileon 09-08 Percent Ethanol Not performed Normal [facility] Comment on above: Result Comment: PERF ORMED BY: [place] [address] PATHOLOGIST IRONWORKER APPRENTICE SHOP ASHELY CAREY M.D. Performed By: #### C BC, CMP, ETOH #### [place] [address] [place] Glucose [Mass/volume] in Ser um or PlasmaOrdered By: Jose Silverman on 10-02-2022 Glucose [Mass/Vol] 98 mg/dL Normal 70-100 [facility] Comment on above: ADA recommended refe rence rangeRandom Glucose Reference Range is dependent on time and content of last meal. Glucose of more than 200 mg/dL in a nonstressed, ambulatory subject supports the diagnosis of Diabetes Mellitus. Result Comment: [place] om Glucose Reference Range is dependent on time and content of last meal. Glucose of more than 200 mg/dL in a nonstressed, ambulatory subject supports the diagnosis of Diabetes Mellitus. ADA recommended reference range Performed By: #### C BC, CMP, ETOH #### [place] [address] [place] HCG ( test) IA.rapi d Ql (U)Ordered By: Jose Silverman on 10-02-2022 HCG ( test) Ql (U) Negative [facility] HCG,Urineon 10-02-2022 Beta HCG ( test) Ql (U) Negative Normal [facility] Comment on above: Order Comment: Name Collection Type:: Clean-Voided Midstream Result Comment: PERF ORMED BY: [place] [address] PATHOLOGIST IRONWORKER APPRENTICE SHOP ASHELY CAREY M.D. Performed By: #### [facility] [place] [facility] [place] #### [address] Hematocrit [Volume Fraction] of Blood by Automated countOrdered By: Jose Silverman on 10-02-2022 Hematocrit (Bld) [Volume fraction] 41.7 % Normal 34.0-46.4 [facility] Comment on above: Performed By: #### C BC, CMP, ETOH #### [address] Hemoglobin [Mass/volume] in BloodOrdered By: Jose Silverman on 10-02-2022 Hemoglobin (Bld) [Mass/Vol] 13.3 g/dL Normal 11.8-15.4 [facility] Comment on above: Performed By: #### C BC, CMP, ETOH #### [address] [address] [place] Ketones Auto test strip (U) [Mass/Vol]Ordered By: Jose Silverman on 10-02-2022 Ketones (U) [Mass/Vol] Negative Negative [facility] - UrinalysisOrder ed By: Jose Silverman on 10-02-2022 Hyaline casts LM Ql (Urine sed) 0-8 [LPF] 0-8 [facility] Leukocytes [#/volume] correc ruby for nucleated erythrocytes in Blood by Automated counOrdered By: Jose Silverman on 10-02-2022 WBC corrected for nucl RBC Auto (Bld) [#/Vol] 12.9 10*3/uL 3.8-11.6 [facility] Leukocytes [#/volume] in Blo od by Automated countOrdered By: Jose Silverman on 10-02-2022 WBC (Bld) [#/Vol] 12.9 10*3/uL High 3.8-11.6 [facility] Comment on above: Performed By: #### C BC, CMP, ETOH #### [address] Lymphocytes [#/volume] in Bl ood by Automated countOrdered By: Jose Silverman on 10-02-2022 Lymphocytes (Bld) [#/Vol] 3.0 10*3/uL Normal 1.00-4.8 [facility] Comment on above: Performed By: #### C BC, CMP, ETOH #### [place] [address] [place] Lymphocytes/100 leukocytes i n Blood by Automated countOrdered By: Jose Silverman on 10-02-2022 Lymphocytes/100 WBC (Bld) 23.1 % Normal . [facility] Comment on above: Performed By: #### C BC, CMP, ETOH #### [place] [address] [place] MCH [Entitic mass] by Automa ruby countOrdered By: Jose Silverman on 10-02-2022 MCH (RBC) [Entitic mass] 25.2 pg Normal 24.7-34.3 [facility] Comment on above: Performed By: #### C BC, CMP, ETOH #### [facility] [address] MCHC Auto (RBC) [Mass/Vol]Or dered By: Jose Silverman on 10-02-2022 MCHC (RBC) [Mass/Vol] 32.0 g/dL 32.0-35.0 [facility] MCV [Entitic volume] by Auto mated countOrdered By: Jose Silverman on 10-02-2022 MCV (RBC) [Entitic vol] 78.5 fL Low 80-100 [facility] Comment on above: Performed By: #### C BC, CMP, ETOH #### [facility] [address] [place] [address] Monocyte distribution width [Entitic volume] in Blood by AutomatedOrdered By: Jose Silverman on 10-02-2022 Monocyte distribution width Auto (Bld) [Entitic vol] 17.72 % 0.00-20.00 [facility] Neutrophils [#/volume] in Bl ood by Automated countOrdered By: Jose Silverman on 10-02-2022 Neutrophils (Bld) [#/Vol] 8.9 10*3/uL High 1.8-7.7 [facility] Comment on above: Performed By: #### C BC, CMP, ETOH #### [facility] [address] [place] [address] Nitrite Test strip Ql (U)Ord ered By: Jose Silverman on 10-02-2022 Nitrite Ql (U) Negative Negative [facility] No Panel InformationOrdered By: Jose Silverman on 10-02-2022 Estimated GFR (CKD-EPI) > 60.0 mL/Min [facility] Creatinine Clearance (Chem 107.48 [facility] Nucleated erythrocytes [Pres ence] in Blood by Automated countOrdered By: Jose Silverman on 10-02-2022 Nucleated RBC Auto Ql (Bld) 0.0 /100{WBC} 0-0.5 [facility] Opiates [Presence] in Urine by Screen methodOrdered By: Jose Silverman on 10-02-2022 Opiates Screen Ql (U) Negative Negative [facility] Phencyclidine Screen Ql (U)O rdered By: Jose Silverman on 10-02-2022 Phencyclidine Ql (U) Negative Negative [facility] Platelet mean volume [Entiti c volume] in Blood by Automated countOrdered By: Jose Silverman on 10-02-2022 Platelet mean volume (Bld) [Entitic vol] 7.7 fL Normal 6.3-10.7 [facility] Comment on above: Performed By: #### C BC, CMP, ETOH #### [facility] [address] Platelets [#/volume] in Bloo d by Automated countOrdered By: Jose Silverman on 10-02-2022 Platelets (Bld) [#/Vol] 342 10*3/uL Normal 150-450 [facility] Comment on above: Performed By: #### C BC, CMP, ETOH #### [facility] [address] Potassium [Moles/volume] in Serum or PlasmaOrdered By: Jose Silverman on 10-02-2022 Potassium [Moles/Vol] 3.8 mmol/L Normal 3.5-5.1 [facility] Comment on above: Performed By: #### C BC, CMP, ETOH #### [facility] [address] Protein Auto test strip (U) [Mass/Vol]Ordered By: Jose Silverman on 10-02-2022 Protein (U) [Mass/Vol] Negative Negative [facility] Protein [Mass/volume] in Ser um or PlasmaOrdered By: Jose Silverman on 10-02-2022 Protein [Mass/Vol] 8.7 g/dL Normal 6.4-8.9 [facility] Comment on above: Performed By: #### C BC, CMP, ETOH #### [facility] [address] Serum globulin measurement b y calculation (mass/volume)Ordered By: Jose Silverman on 10-02-2022 Globulin (S) [Mass/Vol] 3.7 g/dL Normal [facility] Comment on above: Performed By: #### C BC, CMP, ETOH #### [facility] [address] Serum or plasma albumin/glob ulin mass ratioOrdered By: Jose Silevrman on 10-02-2022 Albumin/Globulin [Mass ratio] 1.4 {ratio} Normal [facility] Comment on above: Performed By: #### C PAULETTE POLLOCK, ETOH #### [address] Serum or plasma anion gap de terminationOrdered By: Jose Silverman on 10-02-2022 Anion gap [Moles/Vol] 12.6 mmol/L Normal 6.0-15.0 [facility] Comment on above: Performed By: #### C MARIS, CMP, ETOH #### [address] Sodium [Moles/volume] in Ser um or PlasmaOrdered By: Jose Silverman on 10-02-2022 Sodium [Moles/Vol] 137 mmol/L Normal 136-145 [facility] Comment on above: Performed By: #### C PAULETTE POLLOCK, ETOH #### [address] Specific gravity Auto test s trip (U) [Rel density]Ordered By: Jose Silverman on 10-02-2022 Specific gravity (U) [Rel density] 1.021 1.001-1.030 [facility] Squamous epithelial cells de tection in urine sediment by light microscopyOrdered By: Jose Silverman on 10-02-2022 Epithelial cells.squamous LM Ql (Urine sed) 10-19 [HPF] 0-2 [facility] Urea nitrogen [Mass/volume] in Serum or PlasmaOrdered By: Jose Silverman on 10-02-2022 Urea nitrogen [Mass/Vol] 18 mg/dL Normal 7-25 [facility] Comment on above: Performed By: #### C MARIS CMP, ETOH #### [address] Urine Cultureon 10-02-2022 Bacteria identified Cx Nom (U) ORGANISM: Strep agalactiae - (group b) (O:STRAGA) [place] Count 50,000 PERFORMED BY: [place] [address] PATHOLOGIST IRONWORKER APPRENTICE SHOP ASHELY CAREY M.D. Normal [facility] Comment on above: Performed By: #### U CINDY, KAPIL, KEELEYU, UHCG #### [facility] [address] Urine bacteria detection by automated methodOrdered By: Jose Silverman on 10-02-2022 Bacteria Auto Ql (U) 2+ None Seen [facility] Urine clarity by refractomet ry automatedOrdered By: Jose Silverman on 10-02-2022 Clarity Refractometry automated (U) Clear Clear [facility] Urine glucose measurement by automated test strip (mass/volume)Ordered By: Jose Silverman on 10-02-2022 Glucose Auto test strip (U) [Mass/Vol] Normal mg/dL Normal [facility] Urine hemoglobin detection b y automated test stripOrdered By: Jose Silverman on 10-02-2022 Hemoglobin Auto test strip Ql (U) Negative Negative [facility] Urine leukocyte esterase det ection by automated test stripOrdered By: Jose Silverman on 10-02-2022 Leukocyte esterase Auto test strip Ql (U) 3+ Negative [facility] Urobilinogen Auto test strip (U) [Mass/Vol]Ordered By: Jose Silverman on 10-02-2022 Urobilinogen (U) [Mass/Vol] Normal mg/dL Normal [facility] pH Auto test strip (U)Ordere d By: Jose Silverman on 10-02-2022 pH (U) 6.5 [pH] 5.0-9.0 [facility] Quick Strepon 09-25-2022 S. pyogenes Org specific cx Ql (Throat) Negative [facility] Other Quick Strep [facility] Other CHEMISTRYOrdered By: SYSTEM SYSTEM on 09-06-2022 [...] rate/Area] mL/min/1.73 m2 Normal >=59mL/min/1 .73 m2 [facility] [place] Chem S Glucose [Mass/Vol] 82 mg/dL Normal [...] AM) Normal Negative [facility] UA Auto SS [place].plasma/[place].R BC (Bld) [Mass ratio] >30 /HPF Invalid [...] [facility] UA Auto SS Urobilinogen Qn (U) 0.6095568 {Georgina'U}/dL Normal 0.0 - 1.0 EU/dL [facility] UA Auto SS WBC Auto Ql (U) Negative (09/06/22 11:19 AM) Normal Negative [facility] UA Auto SS WBC LM.HPF (Urine sed) [#/Area] 0-5 /HPF Normal 0-5/HPF [facility] UA Auto SS BLOOD BANKOrdered By: John Montague on 08-14-2022 ABO/Rh Interp Positive Invalid Interpretation Code [facility] [place] BB Subsection CHEMISTRYOrdered By: SYSTEM SYSTEM on [...] PM) Normal Negative [facility] UA Auto SS [place].plasma/[place].R BC (Bld) [Mass ratio] 0-3 /HPF Normal [...] [facility] UA Auto SS Urobilinogen Qn (U) 0.6569403 {[place]'U}/dL Normal 0.0 - 1.0 EU/dL [facility] UA Auto SS WBC Auto Ql (U) Negative (08/14/22 7:29 PM) Normal Negative [facility] UA Auto SS WBC LM.HPF (Urine sed) [#/Area] 0-5 /HPF Normal 0-5/HPF [facility] UA Auto SS CHLAMYDIA/GONOCOCCUS ALFREDO (SW AB/URINE/PAPon 07-15-2022 Chlamydia trachomatis, ALFREDO Negative Normal Negative [facility] Comment on above: Performed By: #### C T/NGNA #### [facility] [address] [place] [address] Dr. Cyril Hendricks Neisseria gonorrhoeae, ALFREDO Negative Normal Negative [facility] Comment on above: Performed By: #### C T/NGNA #### [facility] [address] [place] [address] Dr. Cyril Hendricks VAGINITIS/VAGINOSIS DNA PROB Maurice 07-13-2022 Krista species Negative Normal Negative [facility] Comment on above: Performed By: #### U MICRO, UACSIND #### [facility] [address] [address] [address] Cyril Hendricks Gardnerella vaginalis Positive Abnormal Negative [facility] Comment on above: Performed By: #### U MICRO, UACSIND #### [facility] [address] [place] [address] Dr. Cyril Hendricks Trichomonas vaginalis Negative Normal Negative [facility] Comment on above: Performed By: #### U MICRO, UACSIND #### [facility] [address] [place] [address] Dr. Cyril Hendricks COVID/FLU RT-PCRon 3 SARS-CoV-2 (COVID-19) RNA ALFREDO+probe Ql (Unsp spec) Negative [facility] Other COVID/FLU RT-PCR Negative [facility] Other Quick Strepon 06-24-2022 S. pyogenes Org specific cx Ql (Throat) Negative [facility] Other Quick Strep [facility] Other CBC AUTO DIFFon 01-08-2022 BASO # 0.1 103/ul Normal 0.0-0.1 [facility] Comment on above: Performed By: #### C BC #### [facility] [address] [place] [address] Dr. Cyril Hendricks Basophils/100 WBC (Bld) 0.4 % Normal 0.2-2.0 [facility] Comment on above: Performed By: #### C BC #### [facility] [address] [place] [address] Dr. Cyril Hendricks EO # 0.1 103/ul Normal 0.0-0.7 [facility] Comment on above: Performed By: #### C BC #### [facility] [address] [place] [address] Dr. Cyril Hendricks Eosinophils/100 WBC (Bld) 0.9 % Normal 0.9-7.0 [facility] Comment on above: Performed By: #### C BC #### [facility] [address] [place] [address] Dr. Cyril Hendricks Erythrocyte distribution width (RBC) [Ratio] 12.3 % Normal 11.0-15.0 [facility] Comment on above: Performed By: #### C BC #### [facility] [address] [place] [address] Dr. Cyril Hendricks Hematocrit (Bld) [Volume fraction] 30.0 % Critically low 36.0-48.0 [facility] Comment on above: Performed By: #### C BC #### [facility] [address] [place] [address] Dr. Cyril Hendricks Hemoglobin (Bld) [Mass/Vol] 10.2 g/dL Critically low 12.0-16.0 [facility] Comment on above: Performed By: #### C BC #### [facility] [address] [place] [address] Dr. Cyril Hendricks IG # 0.05 10e3/ul Critically high 0.00-0.03 [facility] Comment on above: Performed By: #### C BC #### [facility] [address] [place] [address] Dr. Cyril Hendricks IG % 0.4 % Normal 0.0-0.5 [facility] Comment on above: Performed By: #### C BC #### [facility] [address] [place] [address] Dr. Cyril Hendricks LYMPH # 2.8 103/ul Normal 1.2-3.8 [facility] Comment on above: Performed By: #### C BC #### [facility] [address] [place] [address] Dr. Cyril Hendricks Lymphocytes/100 WBC (Bld) 19.7 % Critically low 20.5-60.0 [facility] Comment on above: Performed By: #### C BC #### [facility] [address] [place] [address] Dr. Cyril Hendricks MANUAL DIFF REQ NO Normal [facility] Comment on above: Performed By: #### C BC #### [facility] [address] [place] [address] Dr. Cyril Hendricks MCH (RBC) [Entitic mass] 30.6 pg Normal 26.7-34.0 [facility] Comment on above: Performed By: #### C BC #### [facility] [address] [place] [address] Dr. Cyril Hendricks MCHC (RBC) [Mass/Vol] 34.0 g/dL Normal 29.9-35.2 [facility] Comment on above: Performed By: #### C BC #### [facility] [address] [place] [address] Dr. Cyril Hendricks MCV (RBC) [Entitic vol] 90.1 fL Normal 81.0-99.0 [facility] Comment on above: Performed By: #### C BC #### [facility] [address] [place] [address] Dr. Cyril Hendricks MONO # 0.8 103/ul Normal 0.3-0.8 [facility] Comment on above: Performed By: #### C BC #### [facility] [address] [place] [address] Dr. Cyril Hendricks Monocytes/100 WBC (Bld) 5.9 % Normal 1.7-12.0 [facility] Comment on above: Performed By: #### C BC #### [facility] [address] [place] [address] Dr. Cyril Hendricks NEUT # 10.3 103/ul Critically high 1.4-6.5 [facility] Comment on above: Performed By: #### C BC #### [facility] [address] [place] [address] Dr. Cyril Hendricks Neutrophils/100 WBC (Bld) 72.7 % Normal 43.0-75.0 [facility] Comment on above: Performed By: #### C BC #### [facility] [address] [place] [address] Dr. Cyril Hendricks Platelet mean volume (Bld) [Entitic vol] 9.8 fL Normal 9.5-13.5 [facility] Comment on above: Performed By: #### C BC #### [facility] [address] [place] [address] Dr. Cyril Hendricks PLT 207 103/ul Normal 150-450 [facility] Comment on above: Performed By: #### C BC #### [facility] [address] [place] [address] Dr. Cyril Hendricks RBC 3.33 106/ul Critically low 4.20-5.40 [facility] Comment on above: Performed By: #### C BC #### [facility] [address] [place] [address] Dr. Cyril Hendricks WBC 14.2 103/ul Critically high 4.0-11.0 [facility] Comment on above: Performed By: #### C BC #### [facility] [address] [place] [address] Dr. Cyril Hendricks CBC AUTO DIFFon 01-07-2022 BASO # 0.1 103/ul Normal 0.0-0.1 [facility] Comment on above: Performed By: #### U MICRO, UACSIND #### [facility] [address] [place] [address] Dr. Cyril Hendricks Basophils/100 WBC (Bld) 0.5 % Normal 0.2-2.0 [facility] Comment on above: Performed By: #### U MICRO, UACSIND #### [facility] [address] [place] [address] Dr. Cyril Hendricks EO # 0.1 103/ul Normal 0.0-0.7 [facility] Comment on above: Performed By: #### U MICRO, UACSIND #### [facility] [address] [place] [address] Dr. Cyril Hendricks Eosinophils/100 WBC (Bld) 0.9 % Normal 0.9-7.0 [facility] Comment on above: Performed By: #### U MICRO, UACSIND #### [facility] [address] [place] [address] Dr. Cyril Hendricks Erythrocyte distribution width (RBC) [Ratio] 12.4 % Normal 11.0-15.0 [facility] Comment on above: Performed By: #### U MICRO, UACSIND #### [facility] [address] [place] [address] Dr. Cyril Hendricks Hematocrit (Bld) [Volume fraction] 34.3 % Critically low 36.0-48.0 [facility] Comment on above: Performed By: #### U MICRO, UACSIND #### [facility] [address] [place] [address] Dr. Cyril Hendricks Hemoglobin (Bld) [Mass/Vol] 11.6 g/dL Critically low 12.0-16.0 [facility] Comment on above: Performed By: #### U MICRO, UACSIND #### [facility] [address] [place] [address] Dr. Cyril Hendricks IG # 0.06 10e3/ul Critically high 0.00-0.03 [facility] Comment on above: Performed By: #### U MICRO, UACSIND #### [facility] [address] [place] [address] Dr. Cyril Hendricks IG % 0.4 % Normal 0.0-0.5 [facility] Comment on above: Performed By: #### U MICRO, UACSIND #### [facility] [address] [place] [address] Dr. Cyril Hendricks LYMPH # 3.1 103/ul Normal 1.2-3.8 [facility] Comment on above: Performed By: #### U MICRO, UACSIND #### [facility] [address] [place] [address] Dr. Cyril Hendricks Lymphocytes/100 WBC (Bld) 20.4 % Critically low 20.5-60.0 [facility] Comment on above: Performed By: #### U MICRO, UACSIND #### [facility] [address] [address] [address] Cyril Hendricks MANUAL DIFF REQ NO Normal [facility] Comment on above: Performed By: #### U MICRO, UACSIND #### [facility] [address] [address] [address] Cyril Hendricks MCH (RBC) [Entitic mass] 30.6 pg Normal 26.7-34.0 [facility] Comment on above: Performed By: #### U MICRO, UACSIND #### [facility] [address] [address] [address] Cyril Hendricks MCHC (RBC) [Mass/Vol] 33.8 g/dL Normal 29.9-35.2 [facility] Comment on above: Performed By: #### U MICRO, UACSIND #### [facility] [address] [place] [address] Dr. Cyril Hendricks MCV (RBC) [Entitic vol] 90.5 fL Normal 81.0-99.0 [facility] Comment on above: Performed By: #### U MICRO, UACSIND #### [facility] [address] [place] [address] Dr. Cyril Hendricks MONO # 0.9 103/ul Critically high 0.3-0.8 [facility] Comment on above: Performed By: #### U MICRO, UACSIND #### [facility] [address] [place] [address] Dr. Cyril Hendricks Monocytes/100 WBC (Bld) 6.2 % Normal 1.7-12.0 [facility] Comment on above: Performed By: #### U MICRO, UACSIND #### [facility] [address] [place] [address] Dr. Cyril Hendricks NEUT # 10.9 103/ul Critically high 1.4-6.5 [facility] Comment on above: Performed By: #### U MICRO, UACSIND #### [facility] [address] [place] [address] Dr. Cyril Hendricks Neutrophils/100 WBC (Bld) 71.6 % Normal 43.0-75.0 [facility] Comment on above: Performed By: #### U MICRO, UACSIND #### [facility] [address] [address] [address] Cyril Hendricks Platelet mean volume (Bld) [Entitic vol] 11.1 fL Normal 9.5-13.5 [facility] Comment on above: Performed By: #### U MICRO, UACSIND #### [facility] [address] [address] [address] Cyril Hendricks PLT 240 103/ul Normal 150-450 [facility] Comment on above: Performed By: #### U MICRO, UACSIND #### [facility] [address] [place] [address] Dr. Cyril Hendricks RBC 3.79 106/ul Critically low 4.20-5.40 [facility] Comment on above: Performed By: #### U MICRO, UACSIND #### [facility] [address] [address] [address] Cyril Hendricks WBC 15.3 103/ul Critically high 4.0-11.0 [facility] Comment on above: Performed By: #### U MICRO, UACSIND #### [facility] [address] [place] [address] Dr. Cyril Hendricks [facility]on SARS-CoV-2 (COVID-19) RNA ALFREDO+probe Ql (Unsp spec) Not detected Normal NOT DETECTED [facility] Comment on above: Result Comment: When diagnostic [...] for this test is supported by the [place] of Health and Human Service's declaration that [...] used). Performed By: #### H CVPCRR #### [facility] [address] [place] [address] Dr. Cyril Hendricks DRUG SCREEN RAPID (URINE)on 01-07-2022 AMP Negative Normal NEGATIVE [facility] Comment on above: Performed By: #### U MICRO, UACSIND #### [facility] [address] [place] [address] Dr. Cyril Hendricks BAR Negative Normal NEGATIVE [facility] Comment on above: Performed By: #### U MICRO, UACSIND #### [facility] [address] [place] [address] Dr. Cyril Hendricks BUP Negative Normal NEGATIVE [facility] Comment on above: Performed By: #### U MICRO, UACSIND #### [facility] [address] [place] [address] Dr. Cyril Hendricks BZO Negative Normal NEGATIVE [facility] Comment on above: Performed By: #### U MICRO, UACSIND #### [facility] [address] [place] [address] Dr. Cyril Hendricks DARIN Negative Normal NEGATIVE [facility] Comment on above: Performed By: #### U MICRO, UACSIND #### [facility] [address] [place] [address] Dr. Cyril Hendricks CUT-OFFS SEE BELOW Normal [facility] Comment on above: Result Comment: AMP (Amphetamine): [...] Performed By: #### U MICRO, UACSIND #### [facility] [address] [address] [address] Cyril Hendricks DRUG CUT HEADER DRUG CLASS TEST SYSTEM CUT-OFF CONCENTRATIONS ARE FOLLOWS: Normal [facility] Comment on above: Performed By: #### U MICRO, UACSIND #### [facility] [address] [address] [address] Cyril Hendricks mAMP Negative Normal NEGATIVE [facility] Comment on above: Performed By: #### U MICRO, UACSIND #### [facility] [address] [address] [address] Cyril Hendricks MTD Negative Normal NEGATIVE [facility] Comment on above: Performed By: #### U MICRO, UACSIND #### [facility] [address] [address] [address] Cyril Hendricks OPI Negative Normal NEGATIVE [facility] Comment on above: Performed By: #### U MICRO, UACSIND #### [facility] [address] [address] [address] Cyril Hendricks OXY Negative Normal NEGATIVE [facility] Comment on above: Performed By: #### U MICRO, UACSIND #### [facility] [address] [address] [address] Cyril Hendricks PCP Negative Normal NEGATIVE [facility] Comment on above: Performed By: #### U MICRO, UACSIND #### [facility] [address] [address] [address] Cyril Hendricks PPX Negative Normal NEGATIVE [facility] Comment on above: Performed By: #### U MICRO, UACSIND #### [facility] [address] [place] [address] Dr. Cyril Hendricks TCA Negative Normal NEGATIVE [facility] Comment on above: Performed By: #### U MICRO, UACSIND #### [facility] [address] [address] [address] Cyril Hendricks THC Negative Normal NEGATIVE [facility] Comment on above: Performed By: #### U MICRO, UACSIND #### [facility] [address] [address] [address] Cyril Hendricks TYPE AND SCREENon 01-07-2022 TYPE AND SCREEN Negative Normal [facility] Comment on above: Performed By: #### H CVPCRR #### [facility] [address] [address] [address] Cyril Hendricks CULTURE URINEon 12-29-2021 CULTURE URINE Culture Observations: NO GROWTH. Normal [facility] Comment on above: Performed By: #### U RCX #### [facility] [address] [address] [address] Cyril Hendricks UA (CLEAN/CATCH) LETTUCE TRIMMER/MICRO I F IND.on 12-29-2021 Bilirubin Ql (U) Negative Normal NEGATIVE [facility] Comment on above: Performed By: #### U MICRO, UACSIND #### [facility] [address] [address] [address] Cyril Hendricks Clarity (U) SL CLOUDY Abnormal CLEAR [facility] Comment on above: Performed By: #### U MICRO, UACSIND #### [facility] [address] [address] [address] Cyril Hendricks Color (U) LT. YELLOW Normal YELLOW [facility] Comment on above: Performed By: #### U MICRO, UACSIND #### [facility] [address] [address] [address] Cyril Hendricks Glucose Ql (U) Negative Normal NEGATIVE [facility] Comment on above: Performed By: #### U MICRO, UACSIND #### [facility] [address] [address] [address] Cyril Hendricks Hemoglobin Ql (U) Negative Normal NEGATIVE [facility] Comment on above: Performed By: #### U MICRO, UACSIND #### [facility] [address] [address] [address] Cyril Hendricks Ketones Ql (U) Negative Normal NEGATIVE [facility] Comment on above: Performed By: #### U MICRO, UACSIND #### [facility] [address] [address] [address] Cyril Hendricks LEUKOCYTES LARGE Abnormal NEGATIVE [facility] Comment on above: Performed By: #### U MICRO, UACSIND #### [facility] [address] [address] [address] Cyril Hendricks Nitrite Ql (U) Negative Normal NEGATIVE [facility] Comment on above: Performed By: #### U MICRO, UACSIND #### [facility] [address] [address] [address] Cyril Hendricks pH (U) 6.5 [pH] Normal 5-9 [facility] Comment on above: Performed By: #### U MICRO, UACSIND #### [facility] [address] [place] [address] Dr. Cyril Hendricks SPEC GRAVITY 1.010 Normal 1.005-<=1.02 5 [facility] Comment on above: Performed By: #### U MICRO, UACSIND #### [facility] [address] [place] [address] Dr. Cyril Hendricks UA PROTEIN Negative Normal NEGATIVE/ TRACE [facility] Comment on above: Performed By: #### U MICRO, UACSIND #### [facility] [address] [place] [address] Dr. Cyril Hendricks UR MICRO IND INDICATED Normal [facility] Comment on above: Performed By: #### U MICRO, UACSIND #### [facility] [address] [place] [address] Dr. Cyril Hendricks Urobilinogen Qn (U) 0.2 {Georgina'U}/dL Normal 0.2 - 1. 0 [facility] Comment on above: Performed By: #### U MICRO, UACSIND #### [facility] [address] [place] [address] Dr. Cyril Hendricks URINE MICROSCOPIC ONLYon BACTERIA SMALL Abnormal NONE SEEN [facility] Comment on above: Performed By: #### U MICRO, UACSIND #### [facility] [address] [place] [address] Dr. Cyril Hendricks Bacteria identified Cx Nom (U) INDICATED Normal [facility] Comment on above: Performed By: #### U MICRO, UACSIND #### [facility] [address] [address] [address] Cyril Hendricks CAST NONE SEEN Normal NONE SEEN [facility] Comment on above: Performed By: #### U MICRO, UACSIND #### [facility] [address] [place] [address] Dr. Cyril Hendricks Crystals LM Nom (Urine sed) NONE SEEN Normal NONE SEEN [facility] Comment on above: Performed By: #### U MICRO, UACSIND #### [facility] [address] [address] [address] Cyril Hendricks Epithelial cells LM Ql (Urine sed) MANY Abnormal NONE SEEN /RARE [facility] Comment on above: Performed By: #### U MICRO, UACSIND #### [facility] [address] [place] [address] Dr. Cyril Hendricks MUCOUS NONE SEEN Normal NONE SEEN [facility] Comment on above: Performed By: #### U MICRO, UACSIND #### [facility] [address] [place] [address] Dr. Cyril Hendricks RBC 0-2 Normal 0-2 [facility] Comment on above: Performed By: #### U MICRO, UACSIND #### [facility] [address] [place] [address] Dr. Cyril Hendricks WBC 10-20 Abnormal NONE SEEN [facility] Comment on above: Performed By: #### U MICRO, UACSIND #### [facility] [address] [place] [address] Dr. Cyril Hendricks GROUP B STREP CULTUREon 12-07 S. agalactiae Ag Ql (Unsp spec) Culture Observations: NEGATIVE FOR GROUP B STREPTOCOCCUS. Normal [facility] Comment on above: Performed By: #### G BSCX #### [facility] [address] [place] [address] Dr. Cyril Hendricks SSAon 12-13-2021 SSA <0.3 Normal <7.0 [facility] Comment on above: Result Comment: Reference Range: <7.0 Negative 7.0-10.0 Equivocal >10.0 Positive Performed By: #### S SARO, TSH, FT4, SSBLA #### [facility] [address] [place] [address] [phone] [employer]ork[employer] Operator: Homer Hoffman MD SSBon 12-13-2021 SSB <0.3 Normal <7.0 [facility] Comment on above: Result Comment: Reference Range: <7.0 Negative 7.0-10.0 Equivocal >10.0 Positive Performed By: #### S SARO, TSH, FT4, SSBLA #### [facility] [address] [place] [address] [phone] [employer] Operator: Homer Hoffman MD No Panel Informationon 12-12 [facility] T4, Freeon 12-12-2021 Thyroxine, Free 0.98 ng/dL 0.93 - 1.70 ng/dL [facility] TSHon 12-12-2021 TSH Qn 4.35 m[IU]/L [facility] Thyroid Stim. Horm.on 2021 Thyroid Stim. Horm. 4.35 uIU/mL Normal 0.30-5.00 [facility] Comment on above: Performed By: #### S SARO, TSH, FT4, SSBLA #### [facility] [address] [place] [address] [phone] [employer] Operator: Homer Hoffman MD Thyroxine, Freeon 12-12-2021 Thyroxine, Free 0.98 ng/dL Normal 0.93-1.70 [facility] Comment on above: Performed By: #### S SARO, TSH, FT4, SSBLA #### [facility] [address] [place] [address] [phone] [employer] Operator: Homer Hoffman MD US PREG BIOPHY [...] by: SOFIA KABA Date: 2021-11-27 13:55 Normal [facility] COVID + FLU Quick Testingon 11-13-2021 SARS-CoV-2 (COVID-19) RNA ALFREDO+probe Ql (Unsp spec) Negative [facility] Other COVID + FLU Quick Testing Negative [employer] [facility] Other GLUCOSE - 1HRon 10-23-2021 Glucose [Mass/Vol] 83 mg/dL Normal 74-106 [facility] Comment on above: Performed By: #### G LU1HR #### [facility] [address] [place] [address] Dr. Cyril Hendricks CHLAMYDIA/GONOCOCCUS ALFREDO (SW AB/URINE/PAPon 10-05-2021 Chlamydia trachomatis, ALFREDO Negative Normal Negative [facility] Comment on above: Performed By: #### C T/NGNA #### [facility] [address] [place] [address] Dr. Cyril Hendricks Neisseria gonorrhoeae, ALFREDO Negative Normal Negative [facility] Comment on above: Performed By: #### C T/NGNA #### [facility] [address] [place] [address] Dr. Cyril Hendricks VAGINITIS/VAGINOSIS DNA PROB Maurice 10-04-2021 Krista species Positive Abnormal Negative [facility] Comment on above: Performed By: #### H CVPCRR #### [facility] [address] [place] [address] Dr. Cyril Hendricks Gardnerella vaginalis Negative Normal Negative [facility] Comment on above: Performed By: #### H CVPCRR #### [facility] [address] [place] [address] Dr. Cyril Hendricks Trichomonas vaginalis Negative Normal Negative [facility] Comment on above: Performed By: #### H CVPCRR #### [facility] [address] [address] [address] Cyril Hendricks HEP B SURFACE ANTIGEN SCREEN on 10-03-2021 HBsAg Screen Negative Normal Negative [facility] Comment on above: Performed By: #### H CVPCRR #### [facility] [address] [place] [address] Dr. Cyril Hendricks HEPATITIS C VIRUS AB W/ REFL EX QUANTon 10-03-2021 HCV AB <0.1 Normal 0.0-0.9 [facility] Comment on above: Performed By: #### H CVPCRR #### [facility] [address] [place] [address] Dr. Cyril Hendricks Interpretation: Comment Normal [facility] Comment on above: Result Comment: Nega tive Not infected with HCV, unless recent infection is suspected or other evidence exists to indicate HCV infection. Performed By: #### H CVPCRR #### [facility] [address] [place] [address] Dr. Cyril Hendricks HIV 1 AND 2 WITH REFLEXon HIV Screen 4th Generation wRfx Non-Reactive Normal Non Reactive [facility] Comment on above: Result Comment: HIV Negative HIV-1/HIV-2 antibodies and HIV-1 p24 antigen were NOT detected. There is no laboratory evidence of HIV infection. Performed By: #### H IV12 #### [facility] [address] [place] [address] Dr. Cyril Hendricks RPR QUANTon 10-03-2021 Rapid Plasma Reagin, Quant Non-Reactive Normal NonRea<1:1 [facility] Comment on above: Result Comment: Plea se Note: This test does not meet current guidelines for screening and diagnosis of syphilis. This test is intended for following treatment response in patients being treated for syphilis infection. To screen for syphilis infection, a reflex cascade that includes both RPR and a treponema-specific assay should be utilized, such as Treponema pallidum (Syphilis) Screening [place] (760457) or Rapid Plasma Reagin (RPR) Test With Reflex to Quantitative RPR and Confirmatory Treponema pallidum Antibodies (322496). Performed By: #### U MICRO, UACSIND #### [facility] [address] [address] [address] Cyril Hendricks RUBELLA AB IGGon 10-03-2021 Rubella Antibodies, IgG <0.90 Critically low Immune > 0.99 [facility] Comment on above: Result Comment: Non- immune <0.90 Equivocal 0.90 - 0.99 Immune >0.99 Performed By: #### U MICRO, UACSIND #### [facility] [address] [address] [address] Cyril Hendricks CBC AUTO DIFFon 10-02-2021 BASO # 0.1 103/ul Normal 0.0-0.1 [facility] Comment on above: Performed By: #### U MICRO, UACSIND #### [facility] [address] [place] [address] Dr. Cyril Hendricks Basophils/100 WBC (Bld) 0.4 % Normal 0.2-2.0 [facility] Comment on above: Performed By: #### U MICRO, UACSIND #### [facility] [address] [address] [address] Cyril Hendricks EO # 0.1 103/ul Normal 0.0-0.7 [facility] Comment on above: Performed By: #### U MICRO, UACSIND #### [facility] [address] [address] [address] Cyril Hendricks Eosinophils/100 WBC (Bld) 1.1 % Normal 0.9-7.0 [facility] Comment on above: Performed By: #### U MICRO, UACSIND #### [facility] [address] [address] [address] Cyril Hendricks Erythrocyte distribution width (RBC) [Ratio] 13.5 % Normal 11.0-15.0 [facility] Comment on above: Performed By: #### U MICRO, UACSIND #### [facility] [address] [address] [address] Cyril Hendricks Hematocrit (Bld) [Volume fraction] 34.5 % Critically low 36.0-48.0 [facility] Comment on above: Performed By: #### U MICRO, UACSIND #### [facility] [address] [address] [address] Cyril Hendricks Hemoglobin (Bld) [Mass/Vol] 12.0 g/dL Normal 12.0-16.0 [facility] Comment on above: Performed By: #### U MICRO, UACSIND #### [facility] [address] [address] [address] Cyril Hendricks IG # 0.04 10e3/ul Critically high 0.00-0.03 [facility] Comment on above: Performed By: #### U MICRO, UACSIND #### [facility] [address] [place] [address] Dr. Cyril Hendricks IG % 0.3 % Normal 0.0-0.5 [facility] Comment on above: Performed By: #### U MICRO, UACSIND #### [facility] [address] [address] [address] Cyril Hendricks LYMPH # 2.6 103/ul Normal 1.2-3.8 [facility] Comment on above: Performed By: #### U MICRO, UACSIND #### [facility] [address] [place] [address] Dr. Cyril Hendricks Lymphocytes/100 WBC (Bld) 21.3 % Normal 20.5-60.0 [facility] Comment on above: Performed By: #### U MICRO, UACSIND #### [facility] [address] [place] [address] Dr. Cyril Hendricks MANUAL DIFF REQ NO Normal [facility] Comment on above: Performed By: #### U MICRO, UACSIND #### [facility] [address] [place] [address] Dr. Cyril Hendricks MCH (RBC) [Entitic mass] 32.5 pg Normal 26.7-34.0 [facility] Comment on above: Performed By: #### U MICRO, UACSIND #### [facility] [address] [place] [address] Dr. Cyril Hendricks MCHC (RBC) [Mass/Vol] 34.8 g/dL Normal 29.9-35.2 [facility] Comment on above: Performed By: #### U MICRO, UACSIND #### [facility] [address] [place] [address] Dr. Cyril Hendricks MCV (RBC) [Entitic vol] 93.5 fL Normal 81.0-99.0 [facility] Comment on above: Performed By: #### U MICRO, UACSIND #### [facility] [address] [place] [address] Dr. Cyril Hendricks MONO # 0.8 103/ul Normal 0.3-0.8 [facility] Comment on above: Performed By: #### U MICRO, UACSIND #### [facility] [address] [place] [address] Dr. Cyril Hendricks Monocytes/100 WBC (Bld) 6.2 % Normal 1.7-12.0 [facility] Comment on above: Performed By: #### U MICRO, UACSIND #### [facility] [address] [place] [address] Dr. Cyril Hendricks NEUT # 8.6 103/ul Critically high 1.4-6.5 [facility] Comment on above: Performed By: #### U MICRO, UACSIND #### [facility] [address] [place] [address] Dr. Cyril Hendricks Neutrophils/100 WBC (Bld) 70.7 % Normal 43.0-75.0 [facility] Comment on above: Performed By: #### U MICRO, UACSIND #### [facility] [address] [place] [address] Dr. Cyril Hendricks Platelet mean volume (Bld) [Entitic vol] 9.1 fL Critically low 9.5-13.5 [facility] Comment on above: Performed By: #### U MICRO, UACSIND #### [facility] [address] [place] [address] Dr. Cyril Hendricks PLT 257 103/ul Normal 150-450 [facility] Comment on above: Performed By: #### U MICRO, UACSIND #### [facility] [address] [address] [address] Cyril Hendricks RBC 3.69 106/ul Critically low 4.20-5.40 [facility] Comment on above: Performed By: #### U MICRO, UACSIND #### [facility] [address] [place] [address] Dr. Cyril Hendricks WBC 12.2 103/ul Critically high 4.0-11.0 [facility] Comment on above: Performed By: #### U MICRO, UACSIND #### [facility] [address] [place] [address] Dr. Cyril Hendricks CULTURE URINEon 10-02-2021 CULTURE URINE Culture Observations: MODERATE GROWTH OF MIXED GENITAL DRAGAN. NO POTENTIAL PATHOGENS SEEN. Normal [facility] Comment on above: Performed By: #### H CVPCRR #### [facility] [address] [place] [address] Dr. Cyril Hendricks GLYCOHEMOGLOBIN A1Con 2021 ADA RECOMMENDATION SEE BELOW Normal The [facility] Comment on above: Result Comment: ADA RECOMMENDED LIMIT 4.0 - 6.0 ADA THERAPEUTIC TARGET < 7.0 ACTION SUGGESTED > 7.0 Performed By: #### H CVPCRR #### [facility] [address] [place] [address] Dr. Cyril Hendricks Glucose [Mass/Vol] 80 mg/dL Normal [facility] Comment on above: Performed By: #### H CVPCRR #### [facility] [address] [place] [address] Dr. Cyril Hendricks HbA1c (Bld) [Mass fraction] 4.4 % Critically low 4.5-6.2 [facility] Comment on above: Performed By: #### H CVPCRR #### [facility] [address] [place] [address] Dr. Cyril Hendricks TYPE AND SCREENon 10-02-2021 TYPE AND SCREEN Negative Normal [facility] Comment on above: Performed By: #### H CVPCRR #### [facility] [address] [place] [address] Dr. Cyril Hendricks US PREG PLACENTAon 2 [...] by: SOFIA KABA Date: 2021-10-02 10:47 Normal [facility] US PREG ANATOMY SINGLEon [...] (44% by ultrasound, 29% by expected) FL/AC: 0.000837 FL/BPD: 0.727916 HC/AC: 1.055543 GESTATIONAL AGE: Age by EDC: 21 weeks, 3 days NOY by EDC: 01/12/2022 Age by current US: 21 weeks, 1 day NOY by current US: 01/14/2022 IMPRESSION: 1. Single live intrauterine with growth detailed above. 2. Posterior, low-lying placenta. Electronically authenticated by: MARS FRANKEL Date: 2021-09-04 16:30 Normal [facility] Vital Signs Date Time Vital Sign Value Performing Clinician Facility 03-15-2024 12:04-0400 Body mass index (BMI) [Ratio] 29.5 kg/m2 Shabana WHITFIELD Work Phone: [facility] 03-15-2024 12:04-0400 Body weight 82.92 kg Shabana WHITFIELD Work Phone: [facility] 03-15-2024 12:04-0400 Diastolic blood pressure 70 mm[Hg] Shabana WHITFIELD Work Phone: [facility] 03-15-2024 12:04-0400 Systolic blood pressure 120 mm[Hg] Shabana WHITFIELD Work Phone: [facility] 02-03-2024 09:23-0400 Body temperature 97.88 [degF] [facility] 02-03-2024 09:23-0400 Diastolic blood pressure 70 mm[Hg] [facility] 02-03-2024 09:23-0400 Heart rate 85 /min [facility] 02-03-2024 09:23-0400 Respiratory rate 18 /min [facility] 02-03-2024 09:23-0400 SaO2% (BldA) [Mass fraction] 99 % [facility] 02-03-2024 09:23-0400 Systolic blood pressure 106 mm[Hg] [facility] 09-23-2023 09:16-0400 Body temperature 98.42 [degF] [facility] 09-23-2023 09:16-0400 Diastolic blood pressure 68 mm[Hg] [facility] 09-23-2023 09:16-0400 Heart rate 82 /min [facility] 09-23-2023 09:16-0400 Respiratory rate 18 /min [facility] 09-23-2023 09:16-0400 SaO2% (BldA) [Mass fraction] 97 % [facility] 09-23-2023 09:16-0400 Systolic blood pressure 98 mm[Hg] [facility] 08-27-2023 12:24-0400 Diastolic blood pressure 61 mm[Hg] [facility] 08-27-2023 12:24-0400 Heart rate 77 /min [facility] 08-27-2023 12:24-0400 Mean blood pressure 72 mm[Hg] [facility] 08-27-2023 12:24-0400 Respiratory rate 16 /min [facility] 08-27-2023 12:24-0400 SaO2% (BldA) [Mass fraction] 97 % [facility] 08-27-2023 12:24-0400 Systolic blood pressure 93 mm[Hg] [facility] 08-27-2023 11:30-0400 Diastolic blood pressure 69 mm[Hg] [facility] 08-27-2023 11:30-0400 Heart rate 74 /min [facility] 08-27-2023 11:30-0400 Mean blood pressure 82 mm[Hg] [facility] 08-27-2023 11:30-0400 Respiratory rate 16 /min [facility] 08-27-2023 11:30-0400 SaO2% (BldA) [Mass fraction] 99 % [facility] 08-27-2023 11:30-0400 Systolic blood pressure 107 mm[Hg] [facility] 08-27-2023 10:30-0400 Diastolic blood pressure 62 mm[Hg] [facility] 08-27-2023 10:30-0400 Heart rate 91 /min [facility] 08-27-2023 10:30-0400 Mean blood pressure 77 mm[Hg] [facility] 08-27-2023 10:30-0400 Respiratory rate 18 /min [facility] 08-27-2023 10:30-0400 SaO2% (BldA) [Mass fraction] 100 % [facility] 08-27-2023 10:30-0400 Systolic blood pressure 107 mm[Hg] [facility] 08-27-2023 09:41-0400 Body temperature 98.6 [degF] [facility] 08-27-2023 09:41-0400 Heart rate 80 /min [facility] 01-04-2023 00:03-0400 Body temperature 98.78 [degF] [facility] 01-04-2023 00:03-0400 Diastolic blood pressure 54 mm[Hg] [facility] 01-04-2023 00:03-0400 Heart rate 97 /min [facility] 01-04-2023 00:03-0400 Mean blood pressure 70 mm[Hg] [facility] 01-04-2023 00:03-0400 Respiratory rate 18 /min [facility] 01-04-2023 00:03-0400 SaO2% (BldA) [Mass fraction] 94 % [facility] 01-04-2023 00:03-0400 Systolic blood pressure 102 mm[Hg] [facility] 01-03-2023 23:00-0400 Body temperature 100.04 [degF] [facility] 01-03-2023 23:00-0400 Diastolic blood pressure 62 mm[Hg] [facility] 01-03-2023 23:00-0400 Heart rate 100 /min [facility] 01-03-2023 23:00-0400 Mean blood pressure 75 mm[Hg] [facility] 01-03-2023 23:00-0400 Systolic blood pressure 100 mm[Hg] [facility] 01-03-2023 22:42-0400 Body temperature 100.76 [degF] [facility] 01-03-2023 22:42-0400 Diastolic blood pressure 59 mm[Hg] [facility] 01-03-2023 22:42-0400 Heart rate 105 /min [facility] 01-03-2023 22:42-0400 Respiratory rate 20 /min [facility] 01-03-2023 22:42-0400 SaO2% (BldA) [Mass fraction] 99 % [facility] 01-03-2023 22:42-0400 Systolic blood pressure 96 mm[Hg] [facility] 10-02-2022 21:29-0400 Diastolic blood pressure 72 mm[Hg] NO [facility] 10-02-2022 21:29-0400 Heart rate 94 /min [facility]IC[facility] [facility] 21:29-0400 Respiratory rate 18 /min PHYSICIAN NO [facility] 10-02-2022 21:29-0400 SaO2% (BldA) [Mass fraction] 98 % PHYSICIAN NO [facility] 10-02-2022 21:29-0400 Systolic blood pressure 141 mm[Hg] PHYSICIAN NO [facility] 10-02-2022 17:03-0400 Body height 170.18 cm PHYSICIAN NO [facility] 10-02-2022 17:03-0400 Body temperature 98.3 [degF] PHYSICIAN NO [facility] 10-02-2022 17:03-0400 Body weight 76.4 kg PHYSICIAN NO [facility] 09-25-2022 13:25-0400 Body height 170.18 cm Viet Yuri Other [facility] 09-25-2022 13:25-0400 Body mass index (BMI) [Ratio] 26.62 kg/m2 Viet Welch Other [facility] Other 09-25-2022 13:25-0400 Body temperature 98.2 [degF] Viet Welch Other [facility] Other 09-25-2022 13:25-0400 Body weight 77.11 kg Viet Welch Other [facility] Other 09-25-2022 13:25-0400 Diastolic blood pressure 68 mm[Hg] Viet Welch Other [facility] 09-25-2022 13:25-0400 Respiratory rate 18 /min Viet Welch Other [facility] Other 09-25-2022 13:25-0400 SaO2% (BldA) [Mass fraction] 98 % Viet Welch Other [facility] Other 09-25-2022 13:25-0400 Systolic blood pressure 107 mm[Hg] Viet Welch Other [facility] Other 09-06-2022 13:54-0400 Diastolic blood pressure 72 mm[Hg] [facility] 09-06-2022 13:54-0400 Heart rate 60 /min [facility] 09-06-2022 13:54-0400 Respiratory rate 16 /min [facility] 09-06-2022 13:54-0400 SaO2% (BldA) [Mass fraction] 100 % [facility] 09-06-2022 13:54-0400 Systolic blood pressure 103 mm[Hg] [facility] 09-06-2022 11:41-0400 Diastolic blood pressure 65 mm[Hg] [facility] 09-06-2022 11:41-0400 Heart rate 58 /min [facility] 09-06-2022 11:41-0400 Mean blood pressure 77 mm[Hg] [facility] 09-06-2022 11:41-0400 Respiratory rate 16 /min [facility] 09-06-2022 11:41-0400 SaO2% (BldA) [Mass fraction] 100 % [facility] 09-06-2022 11:41-0400 Systolic blood pressure 102 mm[Hg] [facility] 09-06-2022 10:42-0400 Body temperature 98.24 [degF] [facility] 09-06-2022 10:42-0400 bodymassindex 1.17 [facility] Comment on above: Result Comment: ^~:!ZScore [facility] 09-06-2022 10:42-0400 Diastolic blood pressure 71 mm[Hg] [facility] 09-06-2022 10:42-0400 Heart rate 73 /min [facility] 09-06-2022 10:42-0400 Height/Length Percentile 84.89 [facility] Comment on above: Result Comment: ^~:!Percentile [facility] 09-06-2022 10:42-0400 Height/Length Z-Score 1.03 [facility] Comment on above: [facility] 10:42-0400 Respiratory rate 16 /min [facility] 09-06-2022 10:42-0400 SaO2% (BldA) [Mass fraction] 98 % [facility] 09-06-2022 10:42-0400 Systolic blood pressure 111 mm[Hg] [facility] 09-06-2022 10:42-0400 weight 1.47 [facility] Comment on above: Result Comment: [facility]22 10:42-0400 Weight Percentile 92.90 % [facility] Comment on above: Result Comment: ^~:!Percentile Source -[facility] 08-14-2022 21:30-0500 Diastolic blood pressure 79 mm[Hg] [facility] 08-14-2022 21:30-0500 Heart rate 87 /min [facility] 08-14-2022 21:30-0500 Mean blood pressure 93 mm[Hg] [facility] 08-14-2022 21:30-0500 Nursing Progress Note Reason Other: pt to US via stretcher at this time. [facility] 08-14-2022 21:30-0500 Respiratory rate 16 /min [facility] 08-14-2022 21:30-0500 SaO2% (BldA) [Mass fraction] 100 % [facility] 08-14-2022 21:30-0500 Systolic blood pressure 120 mm[Hg] [facility] 08-14-2022 19:20-0500 Body temperature 98.96 [degF] [facility] 08-14-2022 19:20-0500 bodymassindex 1.17 [facility] Comment on above: Result Comment: ^~:!ZScore Source -[facility] 08-14-2022 19:20-0500 Diastolic blood pressure 61 mm[Hg] [facility] 08-14-2022 19:20-0500 Heart rate 98 /min [facility] 08-14-2022 19:20-0500 Height/Length Percentile 84.91 [facility] Comment on above: Result Comment: ^~:!Percentile Source -[facility] 08-14-2022 19:20-0500 Height/Length Z-Score 1.03 [facility] Comment on above: Result Comment: ^~:!ZScore [facility] 08-14-2022 19:20-0500 Respiratory rate 16 /min [facility] 08-14-2022 19:20-0500 SaO2% (BldA) [Mass fraction] 99 % [facility] 08-14-2022 19:20-0500 Systolic blood pressure 114 mm[Hg] [facility] 08-14-2022 19:20-0500 weight 1.47 [facility] Comment on above: Result Comment: ^~:!ZScore [facility] 08-14-2022 19:20-0500 Weight Percentile 92.94 % [facility] Comment on above: Result Comment: ^~:!Percentile Source -[facility] 06-24-2022 13:30-0500 Body height 170.18 cm Viet Welch Other [facility] Other 06-24-2022 13:30-0500 Body mass index (BMI) [Ratio] 26.62 kg/m2 Viet Welch Other [facility] Other 06-24-2022 13:30-0500 Body temperature 97.8 [degF] Viet Welch Other [facility] Other 06-24-2022 13:30-0500 Body weight 77.11 kg Viet Welch Other [facility] Other 06-24-2022 13:30-0500 Diastolic blood pressure 63 mm[Hg] Viet Welch Other [facility] Other 06-24-2022 13:30-0500 Respiratory rate 18 /min Viet Welch Other [facility] Other 06-24-2022 13:30-0500 SaO2% (BldA) [Mass fraction] 98 % Viet Welch Other [facility] Other 06-24-2022 13:30-0500 Systolic blood pressure 97 mm[Hg] Viet Welch Other [facility] Other 11-13-2021 14:05-0400 Body height 170.18 cm Michael Oneil Other [facility] Other 11-13-2021 14:05-0400 Body mass index (BMI) [Ratio] 26.62 kg/m2 Michael Oneil Other [facility] Other 11-13-2021 14:05-0400 Body temperature 98.4 [degF] Michael Oneil Other [facility] Other 11-13-2021 14:05-0400 Body weight 77.11 kg Michael Oneil Other [facility] Other 11-13-2021 14:05-0400 Respiratory rate 18 /min Michael Oneil Other [facility] Other 11-13-2021 14:05-0400 SaO2% (BldA) [Mass fraction] 98 % Michael Oneil Other [facility] Other 11-06-2021 15:45-0400 Body height Kendra Witt Other [facility] Other 11-06-2021 15:45-0400 Body mass index (BMI) [Ratio] 26.62 kg/m2 Kendra Witt Other [facility] Other 11-06-2021 15:45-0400 Body weight 77.11 kg Kendra Witt Other [facility] Other 11-06-2021 15:45-0400 Respiratory rate 20 /min Kendra Witt Other [facility] Other 11-06-2021 15:45-0400 SaO2% (BldA) [Mass fraction] 98 % Kendra Witt Other [facility] Other Encounters Encounter Date Encounter Type Care Provider Facility Start: 03-22-2024 End: 03-22-2024 Bamboo flowsheet Juvenal Maurilio DO Work Phone: [facility] Start: 03-22-2024 End: 03-22-2024 Bamboo flowsheet Juvenal Maurilio DO Work Phone: [facility] Start: 03-22-2024 End: 03-22-2024 ambulatory JUVENAL MAURILIO Not Available Start: 03-22-2024 End: 03-22-2024 Office outpatient visit 15 minutes Juvenal Maurilio DO Work Phone: [facility] Comment on above: 36 weeks gestation o f ; Third trimester ; Gastroesophageal reflux in Start: 03-15-2024 End: 03-15-2024 Bamboo flowsheet Shabana WHITFIELD Work Phone: [facility] Start: 03-15-2024 End: 03-15-2024 [...] 02-03-2024 Emergency department patient visit [facility] Start: 01-26-2024 End: 01-26-2024 ambulatory JUVENAL MAURILIO Not Available Start: 12-29-2023 End: 12-29-2023 ambulatory SHABANA ELLIS Not Available Start: 12-22-2023 End: 12-22-2023 ambulatory JUVENAL R [facility] Start: 12-01-2023 End: 12-01-2023 ambulatory JUVENAL MAURILIO Not Available Start: 11-10-2023 End: 11-10-2023 ambulatory JUVENAL R [facility] Start: 10-27-2023 End: 10-27-2023 ambulatory SHABANA ELLIS Not Available Start: 09-29-2023 End: 09-29-2023 ambulatory JUVENAL MAURILIO Not Available Start: 09-23-2023 End: 09-23-2023 Emergency department patient visit [facility] Start: 09-04-2023 End: 09-04-2023 ambulatory JUVENAL MAURILIO Not Available Start: 08-27-2023 End: 08-27-2023 Emergency department patient visit [facility] Start: 08-18-2023 End: 08-18-2023 ambulatory SELAM ELSA Facility:[facility] Start: 01-03-2023 End: 01-04-2023 Emergency department patient visit [facility] Start: 12-12-2022 End: 12-12-2022 ambulatory Kenneth Mills Other [facility] Other Start: 12-12-2022 Telephone encounter Kenneth Mills [facility] [place] Start: 10-02-2022 End: 10-02-2022 Emergency department patient visit Jose Silverman Facility:[facility] Start: 10-02-2022 End: 10-02-2022 Emergency department patient visit PHYSICIAN [facility] Work Phone: Start: 09-25-2022 End: 09-25-2022 ambulatory Viet Yuri Other [facility] Other Start: 09-25-2022 Office outpatient visit 15 minutes Viet Bergland [facility] Start: 09-06-2022 End: 09-06-2022 Emergency department patient visit [facility] Start: 08-14-2022 End: 08-14-2022 Emergency department patient visit [facility] Start: 07-11-2022 End: 07-11-2022 ambulatory ROSEANN CORRAL Facility: Start: 06-24-2022 End: 06-24-2022 ambulatory Viet Yuri Other [facility] Other Start: 06-24-2022 Office outpatient visit 15 minutes Viet Bergland [facility] Start: 01-11-2022 End: 01-11-[address] NONE LISTED REQUEST Facility:[facility] Start: 01-07-2022 End: 01-09-2022 Evaluation and management of inpatient DR RENATA GEORGES Facility:[facility] Start: 12-29-2021 End: 12-29-[address] JUVENAL THORPE Facility:[facility] Start: 12-19-2021 End: 12-19-[address] JUVENAL THORPE Facility:[facility] Start: 12-12-2021 End: 12-13-2021 ambulatory JUAQUIN FERNANDESJACEY [facility] Start: 12-12-2021 End: 12-12-2021 Subsequent hospital visit by physician [facility] Start: 11-27-2021 End: 11-27-[address] SOFIA KABA Facility:[facility] Start: 11-13-2021 End: 11-13-2021 ambulatory Michael Oneil Other [facility] Other Start: 11-13-2021 Office outpatient visit 15 minutes Michael Oneil [facility] Start: 11-06-2021 End: 11-06-2021 ambulatory Kendra Witt Other [facility] Other Start: 11-06-2021 Office outpatient visit 25 minutes Kendra Witt [facility] Start: 10-23-2021 End: 10-24-[address] [...] AM EDT Routine [facility] [address] [place] [address] Juvenal Thorpe, DO [address], [place] [id number] [facility] Start: 03-22-2024 End: 03-22-2025 Strep B DNA probe, amplification Strep B DNA probe, amplification Lab Routine Third trimester Expected: 03/22/2024 (Approximate), Expires: 03/22/2025 [facility] Work Phone: Comment on above: Expected: 03/22/2024 (Approximate), Expires: 03/22/2025 Start: 03-22-2024 End: 03-22-2024 Patient encounter procedure 03/22/2024 11:10 AM EDT Routine [facility] [address] [place] [address] Juvenal Thorpe, [address], [place] [id number] [facility] Start: 10-02-2022 Bacteria identified in Urine by Culture Urine Culture [facility] Start: 02-07-2022 Influenza vaccination Flu vaccine (# 1) [facility] Start: 01-09-2022 End: 01-09-2022 Patient encounter procedure 01/09/2022 Routine Perinatology [facility] Start: 01-02-2022 End: 01-02-2022 Patient encounter procedure 01/02/2022 Routine Perinatology [facility] Start: 12-26-2021 End: 12-26-2021 Patient encounter procedure 12/26/2021 Routine Perinatology [facility] Start: 12-20-2021 End: 12-20-2021 Patient encounter procedure 12/20/2021 Routine Perinatology [facility] Start: 2021 DTaP/Tdap/Td vaccine (1 - Tdap) DTaP/Tdap/Td vaccine (1 - Tdap) [facility] Start: 2020 Hepatitis C screening Hepatitis C sc reen [facility] Start: 2018 Screening for Chlamy nazanin trachomatis Chlamydia screen [facility] [employer] Start: 2017 HIV screening HIV screen [facility] Start: 2014 Depression Monitoring Depression Mon itoring [facility] Start: 2013 HPV vaccine (1 - 2-d ose series) HPV vaccine (1 - 2-dose series) [facility] Start: 09-16-2007 COVID-19 Vaccine (1) COVID-19 Vaccin e (1) [facility] Start: 09-16-2003 Varicella vaccine (1 of 2 - 2-dose childhood series) Varicella vaccine (1 of 2 - 2-dose childhood series) [facility] Patient Education Depression, Adult ED [facility] Work Phone: Patient referral [facility] Work Phone: End: 12-12-2021 Sjogrens syndrome-A extractable nuclear antibody [facility] Work Phone: Comment on above: Once for 1 Occurrenc es starting 12/12/2021 until 12/12/2021 End: 12-12-2021 Sjogrens syndrome-B extractable nuclear antibody [facility] Work Phone: Comment on above: Once for 1 Occurrenc es starting 12/12/2021 until 12/12/2021 Immunizations Immunization Date Immunization Notes Care Provider Simona galarza NEGATED: Highlighted row has not occurred!11-05-2019 influenza, injectable, quadrivalent, contains preservative Kendra Witt Other [facility] Other NEGATED: Highlighted row has not occurred!04-10-2019 influenza virus vaccine, unspecified formulation [facility] Payers Date Payer Category Payer Medicaid [employer] [place] [id number] 2023-Present [address] [place] [address] [id number] 2023 Private Health Insurance [facility] MEDICA[facility] [id number] 2022 Self-pay [id number] 2002 Unknown [id number] 2.16.840.1.837540.3.579.2. 175 2002 Unknown [id number] 2.16.840.1.534729.3.579.2. 593 2002 Unknown [id number] 2.16.840.1.642813.3.579.2. 593 2002 Unknown [id number] 2.16.840.1.776719.3.579.2. 593 2002 Unknown [id number] 2.16.840.1.771256.3.579.2. 593 2002 Unknown [id number] 2.16.840.1.743803.3.579.2. 593 2002 Unknown [id number] 2.16.840.1.091478.3.579.2. 593 2002 Unknown [id number] 2.16.840.1.902607.3.579.2. 593 2002 Unknown [id number] 2.16.840.1.395303.3.579.2. 593 2002 Unknown [id number] 2.16.840.1.613594.3.579.2. 593 2002 Unknown [id number] 2.16.840.1.057968.3.579.2. 593 2002 Unknown [id number] 2.16.840.1.235532.3.579.2. 593 2002 Unknown [id number] 2.16.840.1.135630.3.579.2. 1286 2002 Unknown [id number] 2.16.840.1.635029.3.579.2. 1286 2002 Unknown [id number] 2.16.840.1.651805.3.579.2. 1286 2002 Unknown [id number] 2.16.840.1.945831.3.579.2. 727 2002 Unknown [id number] 2.16.840.1.240273.3.579.2. 727 2002 Unknown [id number] 2.16.840.1.472660.3.579.2. 727 2002 Unknown [id number] 2.16.840.1.889818.3.579.2. 727 2002 Unknown [id number] 2.16.840.1.361248.3.579.2. 727 2002 Unknown [id number] 2.16.840.1.687109.3.579.2. 9 2002 Unknown [id number] 2.16.840.1.606611.3.579.2. 1258 2002 Unknown [id number] 2.16.840.1.394103.3.579.2. 1258 2002 Unknown [id number] 2.16.840.1.939302.3.579.2. 1258 2002 Unknown [id number] 2.16.840.1.933195.3.579.2. 1258 2002 Unknown [id number] 2.16.840.1.485409.3.579.2. 1258 2002 Unknown [id number] 2.16.840.1.622697.3.579.2. 1258 2002 Unknown [id number] 2.16.840.1.063048.3.579.2. 1258 2002 Unknown [id number] 2.16.840.1.226589.3.579.2. 1258 2002 Unknown [id number] 2.16.840.1.478690.3.579.2. 9 1959 Unknown [id number] 2.16.840.1.093406.19 1959 Unknown [id number] Unknown [id number] 2.16.840.1.682748.3.579.2. 531 Social History Date Type Detail Facility [facility] Start: 11-28-2021 Tobacco smoking status COIS Never smoked tobacco [facility] Phone: Start: 11-28-2021 Tobacco use and exposure Smokeless tobacco non-user [facility] Phone: Start: 12-12-2021 Alcohol intake Ex-drinker (finding) [facility] Phone: Start: 12-12-2021 Tobacco Comment no longer vapes [facility] Phone: Start: 04-21-2021 [employer]IF [employer] Phone: Start: 2002 Sex Assigned At Not on file B ON V[facility] Phone: Tobacco Current vaping o r e-cigarette use Smokeless Tobacco Use:. [facility] Tobacco smoking status No Smoking Status Entered [facility] Start: 10-02-2022 Tobacco smoking status NHIS Smoker (finding) [facility] Start: 2002 Sex Assigned At Female F [facility] Tobacco smoking status COIS Tobacco smoking consumption unknown [facility] Start: 01-17-2023 Gender identity Identifies as female gender (finding) [facility] Functional Status Date Assessment Result Facility 02-03-2024 Functional Status N/A [facility] 09-23-2023 Functional Status N/A [facility] 08-27-2023 Functional Status N/A [facility] 01-03-2023 Functional Status N/A [facility] 09-06-2022 Functional Status N/A [facility] 08-14-2022 Functional Status N/A [facility] Clinical Notes 11-06-2021 to 03-22-2024 Candice [...] nursing note reviewed. Exam conducted with a test and research reactor operator present. Vitals: Estimated body mass index is [...] have IOL on 04/05/24 and nursing called [facility] and spoke with nursing [...] Juvenal Thorpe DO documented in this encounter [facility] 03-15-2024 History of Presen t illness Narrative [...] nursing note reviewed. Exam conducted with a test and research reactor operator present. Vitals: Estimated body mass index is [...] of: ROSEANN Smith documented in this encounter [facility] 02-03-2024 Evaluation + Plan note Extrac ruby from: Title:ED Note Author:Kiki CHUNG, Duc Torres te:02/03/24 Sore throat (J02.9: Acute ph aryngitis, unspecified) Viral URI (J06.9: Acute upper respiratory infection, unspecified) Orders: Group A Strep by PCR Rapid Strep w/rfx Diagnostic Tests Pending * Group A Strep by PCR 02/03/24 [facility] 08-27-2024 Hospital Discharge instructions Patient Education [...] medicines to help relieve symptoms, such as: Bypo-jti-hnxpkdw cold medicines. Cough suppressants. Coughing is a [...] and other clear broths. General instructions Take jwge-umv-egvimxh and prescription medicines only as told by [...] water are not available, use hand manager family. Avoid touching your mouth, face, eyes, or [...] provider. Document Revised: 12/26/2021 Document Reviewed: 12/26/2021 [employer] Patient Education 2022 [employer]. Follow Up Care 02/03/2024 09:23:13 With:Juvenal THORPE Address: [address] , [place] [address]- Business (1) When:02/06/2024 11:12:27 With:SELAM HUNTER Address: [facility] [place] [address] Business (1) When:02/06/2024 11:12:21 [facility] 08-27-2024 NoteED Patient Education Note Infectious [...] to help relieve symptoms, such as: ? Cavs-djx-vdwzovi cold medicines. ? Cough suppressants. Coughing is [...] other clear broths. General instructions ? Take vdoi-ntq-uwkdxjd and prescription medicines only as told by [...] and water are not available,use hand manager family. ? Avoid touching your mouth, face, eyes, [...] symptoms m (more content not included)...[facility] 09-23-2023 Hospital Discharge instructions Patient Education [...] provider. Document Revised: 02/19/2021 Document Reviewed: 02/19/2021 [employer] Patient Education 2022 [employer]. Follow Up Care 09/23/2023 09:11:45 With:Juvenal THORPE Address: [address] [place] [address] Business (1) When:09/26/2023 11:44:07 [facility] Hospital Discharge instructions Patient Education 08/27/2023 [...] provider. Document Revised: 01/09/2022 Document Reviewed: 01/09/2022 [employer] Patient Education 2022 [employer]. 08/27/2023 12:34:16 Urinary Tract Infection, Adult, Oxup-hi-Uawj Urinary Tract Infection, Adult A urinary tract [...] Follow these instructions at home: Medicines Take obdi-ies-msclxvl and prescription medicines only as told by [...] provider. Document Revised: 01/05/2021 Document Reviewed: 01/05/2021 [employer] Patient Education 2022 [employer]. 08/27/2023 12:34:16 Subchorionic Hematoma Subchorionic Hematoma A [...] provider. Document Revised: 02/19/2021 Document Reviewed: 02/19/2021 [employer] Patient Education 2022 [employer]. Follow Up Care 08/27/2023 09:39:16 With:Juvenal THORPE Address: [address] [place] [address]- Business (1) When:08/30/2023 12:05:10 With:SELAM HUNTER Address: [facility] [place] [address] Business (1) When:Within 3 Day(s) [facility]03-20-2024 Evaluation + Plan noteExtracted from: Title:ED [...] day(s), # 28 cap(s), Refills(s) 0, Pharmacy: [facility], 170, cm, 08/27/23 9:49:00 EDT, Height/Length Dosing, 78.7, kg, 08/27/23 9:49:00 EDT, Weight Dosing ABO/Rh Basic Metabolic Panel Beta hCG Quantitative CBC w/ Auto Diff eGFR Extra Blue Tube Extra SST Tube UA with Cult Rflx Urine Culture US 1st Trimester US Transvaginal Diagnostic Tests Pending * Urine Culture 08/27/23 [facility]07-29[facility]2023 Hospital Discharge instructions Patient Education 01/04/2023 00:13:01 Pharyngitis, Qqdm-fz-Adew Pharyngitis Pharyngitis is a sore throat (pharynx). [...] Follow these instructions at home: Medicines Take gvag-jgw-tnfcevs and prescription medicines only as told by [...] water are not available, use hand manager family. Do not touch your eyes, nose, or [...] provider. Document Revised: 08/22/2021 Document Reviewed: 08/22/2021 [employer] Patient Education 2022 [employer]. Follow Up Care 01/03/2023 22:32:55 With:Thony Carl Address: [address] [place] [address] [place] [address] [facility] (1) When:01/06/2023 Comments:Follow-up with your primary care provider in 3 to 5 days. If symptoms worsen, do not improve, or new symptoms arise please report back to emergency department for further evaluation. [facility]07-28-2023 Evaluation + Plan noteExtracted from: Title:ED [...] q12hr, # 20 cap(s), Refills(s) 0, Pharmacy: [facility], 170, cm, 01/03/23 22:44:00 [...] Diff eGFR Hepatic Function Panel Lipase Level [facility]04-19-2023 Evaluation note* Encounter Date Diagnosis Assessment [...] of symptoms occur by end of treatment. [facility] 03-31-2023 Hospital Discharge instructions Patient Education [...] Follow these instructions at home: Medicines Take lnbf-tag-vqpxfsb and prescription medicines only as told by [...] important. Where to find more information [employer] [employer]: www.acog.org [place] [...] Document Reviewed: 07/01/2017 Elsevier Patient Education 2019 [employer]. Follow Up Care 09/06/2022 10:42:16 With:Juvenal THORPE Address: [address] [place] [address]- Business (1) When:09/09/2022 13:46:05 [facility]03-09[facility]2023 Hospital Discharge instructions Patient Education 08/14/2022 22:12:46 Abdominal Pain During , Evwz-hj-Zkjy Abdominal Pain During Belly (abdominal) pain is [...] keep your pee (urine) pale yellow. Take kizd-mlu-iubpsbz and prescription medicines only as told by [...] 05/14/2010 Document Revised: 09/13/2019 Document Reviewed: 08/28/2017 [employer] Patient Education 2020 [employer]. 08/14/2022 22:12:46 Abdominal Pain, Adult, Qvpm-rq-Kwae Abdominal Pain, Adult Many things can cause belly (abdominal) pain. Most times, belly pain is not dangerous. Many cases of belly pain can be watched and treated at home. Sometimes, though, belly pain is serious. Your doctor will try to find the cause of your belly pain. Follow these instructions at home: Medicines Take hbjk-vev-rsdpnuk and prescription medicines only as told by [...] your belly pain for any changes. Take vnqg-rqw-vqmmyxe and prescription medicines only as told by [...] 11/11/2008 Document Revised: 10/04/2019 Document Reviewed: 10/04/2019 [employer] Patient Education 2020 [employer]. Follow Up Care 08/14/2022 18:41:38 With:Juvenal THORPE Address: [address] , [facility] [place] [address]- Business (1) When:08/17/2022 Comments:Follow-up with Dr. Thorpe for further evaluation of your . With:Juventino Carbajal Address: [address] [place] [id number]- When:08/17/2022 Comments:Follow-up with your primary care provider in 3 to 5 days. If symptoms worsen, do not improve, or new symptoms arise please report back to emergency department for further evaluation. [facility] Evaluation note* Encounter Date Diagnosis Assessment [...] return precautions. Jun, Cough (ICD-10 - R05.9) [facility] Other 06-07-2022 Evaluation note* Encounter Date Diagnosis [...] Pt understood and agreed to tx plan. [facility] Other [id number] Evaluation note* Encounter Date Diagnosis Assessment Notes [...] condition October, Sore throat (ICD-10 - J02.9) [facility] Other Evaluation + Plan note No data available for this section [facility] information [facility] Work Phone: Evaluation noteNo InformationNort FiftyFiver Other Evaluation note* Diagnosis 35 weeks gestation [...] age 7 Hospitalization History see surgical hx [facility] Other Progress note No data available for this section [facility] Summary Purpose Family History No Family [...] section and content) DATE CREATED AUTHOR 01/05/2022 [facility] DATE CREATED AUTHOR AUTHOR'S ORGANIZ ATION 07/15/2022 [facility] DATE CREATED AUTHOR AUTHOR'S ORGANIZ ATION 10/10/2022 [facility] DATE CREATED AUTHOR AUTHOR'S ORGANIZ ATION 12/26/2023 [facility] DATE CREATED AUTHOR AUTHOR'S ORGANIZ ATION 02/05/2024 [facility] DATE CREATED AUTHOR AUTHOR'S ORGANIZ ATION 02/06/2024 [facility] DATE CREATED AUTHOR AUTHOR'S ORGANIZ ATION 03/24/2024 [facility] EP[employer] Care Teams (unrecognized sec tion and content) Personnel Name: SELAM HUNTER CNP Address: Address: [address] [place], [place] [address] Team Status: Active Member Role Status [...] BE BASED ON THE PRIMARY CLINICAL RECORDS. [facility] [employer] [facility]. provides no warranty or guarantee of the accuracy or completeness of information in this document.
--- NOTE | 2024-03-29 12:59 | US_ITS ---
[address] [address] Patient Name: KAILYN ACKERMAN MRN: [id number] date: 2000 Sex: F Assigned Patient Location: [facility] Current Patient Location: [facility] Accession/Order Number: [id number] Exam Date: 03/29/2024 12:55 Report Date: 03/29/2024 14:08 At the request of: VAL ANG Procedure: US OB growth EXAMINATION: US OB growth HISTORY: IUGR COMPARISON: No relevant comparison available. FINDINGS: Heart Rate: 146 Amniotic Fluid Volume: 11.5 cm, largest fluid pocket 3.7 cm The umbilical arteries: 2 Number: 1 Position: Cephalic presentation, longitudinal lie BIOMETRY: BPD: 9.1 cm, 36 weeks 5 days, 45%; ; HC: 32.4 cm, 36 weeks 4 days, 11%; ; AC: 31.86 cm, 35 weeks 5 days, 18%; ; FL: 6.8 cm, 35 weeks 0 days, 4%; ; EFW: 2757 g, 6 lbs. 1 oz., 16%; FL/AC: 21.33 FL/BPD: 75.1 HC/AC: 1.02 GESTATIONAL AGE: Age by EDC: 37 weeks 4 days NOY by EDC: 04/15/2024 Age by US: 36 weeks 0 days NOY by US: 04/26/2024 US/US OB growth IMPRESSION: Femur length at the 4th percentile Estimated weight at the 16th percentile Electronically authenticated by: SOFIA KABA Date: 03/29/2024 14:08
[2024-03-29 13:51] VITALS: BP 115/66; PULSE 87
== END 2024-03-29 14:25 | disposition home or self-care (01) ==
LOC: US 06:55 → FBC 12:49
PROVIDERS: Visit Provider Obstetrics & Gynecology
DX: O43.113 Circumvallate placenta, third trimester (principal); Z3A.37 37 weeks gestation of pregnancy; Z87.59 Personal history of other complications of pregnancy, childbirth and the puerperium
CPT/HCPCS: 76816; 76818; 76820

== ENCOUNTER 2024-04-01 05:04 | Inpatient (IN) | payer OTHER, SELFPAY ==
[2024-04-01] VITALS (32 sets, daily range): BP systolic 91–135; BP diastolic 50–87; PULSE 58–179; TEMP 36.3–36.6
--- OUTSIDE RECORDS SUMMARY | 2024-04-01 05:09 | XMS_ITS | CCD ---
Author Organization [facility] Care Team Providers Care Personal Secretary Name Role Phone Kendra Witt Unavailable Michael [...] Unavailable MAURILIO, DR NEAL Admitting Unavailable ROSEANN MERCEDES Consulting Unavailable REQUEST, NONE LISTED Primary Care Unavaila ble ROSEANN MERCEDES Attending Unavailable ROSEANN MERCEDES Admitting Unavailable KARASIK, DR YANEZ Consulting Unavailable MISC, DR SANDOVAL Primary Care Unavailable KARASIK, DR YANEZ Attending Unavailable KARASIK, DR YANEZ Admitting Unavailable ZIEBER, DR MARS Mccarthy Consulting Unavailable AVOCA, DR SOFIA Hull Consulting Unavailable REQUEST, DR NONE LISTED Primary Care Unavaila ble MAURILIO, DR NEAL Attending Unavailable MAURILIO, DR NEAL Admitting Unavailable MAURILIO, DR NEAL Consulting Unavailable KARASIK, DR YANEZ Consulting Unavailable REQUEST, DR NONE LISTED Primary Care Unavaila ble MAURILIO, DR NEAL Attending Unavailable MAURILIO, DR NEAL Admitting Unavailable MAURILIO, DR NEAL Consulting Unavailable AGUBOSIMZAN Consulting Unavailable MAURILIO, DR NEAL Procedure Practitioner Unavailab ricardo AVOCA, DR SOFIA Hull Consulting Unavailable EVER, NONE LISTED Primary Care Unavaila ble MAURILIO, DR NEAL Attending Unavailable MAURILIO, DR NEAL Admitting Unavailable MAURILIO, DR NEAL Consulting Unavailable [place], Viet Unavailable NONE, XXXX Primary Care Physician [...] Care Provider UnavailJUVENAL Woods Attending Unavailable SHABANA MERCEDES Attending Unavailable MAURILIO, JUVENAL Attending Unavailable SHABANA MERCEDES Attending Unavailable MAURILIO, JUVENAL Attending Unavailable ELLIS, SHABANA Attending Unavailable MAURILIO, JUVENAL Attending Unavailable ELLIS SHABANA Attending Unavailable MAURILIO, JUVENAL Attending Unavailable MAURILIO, JUVENAL Attending Unavailable Allergies Allergy Classification Reported Allergen(s) Allergy Type Date of Onset Reaction(s) Facility (1 source) No Known Medication Allergies; Translations: [No Known Medication Allergies] Propensity to adverse reactions (disorder) [facility] Repository Medications Current Medications Medication Drug Class(es) [...] day(s), # 28 cap(s), Refills(s) 0, Pharmacy: [id number], 170, cm, 08/27/23 9:49:00 EDT, Height/Length Dosing, 78.7, kg, 08/27/23 9:49:00 EDT, Weight Dosing Start Date: 08/27/23 Stop Date: 09/03/23 Status: Ordered Start: 01-03-2023 take 1 capsule by [facility] every twelve hours Keflex 500 mg Cap 500 mg = 1 cap(s), Oral, q12hr, # 20 cap(s), Refills(s) 0, Pharmacy: [facility], 170, cm, 01/03/23 22:44:00 EDT, Height/Length Dosing, 75.3, kg, 01/03/23 22:44:00 EDT, Weight Dosing Start Date: 01/03/23 Status: Ordered Citalopram (2 sources) Serotonin Reuptake Inhibitor Citalopram Hydrobromide Active dexamethasone 1 mg/ml / neomycin 3.5 mg/ml / polymyxin b 20344 unt/ml ophthalmic suspension (2 sources) Aminoglycoside Antibacterial, Polymyxin-class Antibacterial, Corticosteroid Start: 09-26-19 take 1 drop(s) into the eye(s) four times daily Maxitrol 3.5-26997-1.1 1 drop into affected eye Ophthalmic Four times a day for 7 days Sep, Active ethinyl estradiol 0.02 mg / norethindrone acetate 1 mg oral tablet (6 sources) Estrogen Start: 04-10-20 Microgestin 06/28 20 mcg-1 mg oral tablet Refill(s) 0 Start Date: 04/10/19 Status: Ordered ferrous sulfate (9 sources) take 1 tablet by mouth in [...] Daily 30 tablet 6 12/01/2023 03/22/2024 Discontinued Backus (No Known Home Meds) (1 source) Start: 06-26-2021 Backus (No Known Home Meds) Active June 26, 2021 1:00am omeprazole 20 mg delayed release oral capsule (5 sources) Proton Pump Inhibitor Start: 03-22-2024 End: [...] Nausea/Vomiting, # 12 tab(s), Refills(s) 0, Pharmacy: [facility], 170, cm, 01/03/23 22:44:00 EDT, Height/Length Dosing, 75.3, kg, 01/03/23 22:44:00 EDT, Weight Dosing Start Date: 01/03/23 Status: Ordered Start: 06-09-2019 take 1 tablet by faby th three times daily Zofran ODT 4 mg Tab-Dis 4 mg = 1 tab(s), Oral, TID, # 15 tab(s), Refills(s) 0, Pharmacy: [facility] Start Date: 06/09/19 Status: Ordered [...] take 450 mg by mouth twice daily [place] Carbonate Discontinued 450 MG PO Twice daily [...] with other respiratory manifestations Episodic Menstrual disorders (14 sources) Irregular menstruation, unspecified; Translations: [Missed period] [...] 10-03-2021 Episodic Other and delivery including normal (16 sources) Encounter for routine follow-up; Translations: [Encounter [...] [36 weeks gestation of ] 03-22-2024 Episodic Residual codes; unclassified (2 sources) Gestation period, 37 weeks; Translations: [37 weeks gestation of ] 03-29-2024 Episodic Spontaneous (1 source) Complete inevitable miscarriage [...] Unclassified (1 source) Subchorionic Hematoma Onset: 11-10-2023 Unclassified (3 sources) OB Reminders Onset: 03-26-2024 03-26-2024 Viral infection (1 source) Viral disease; Translations: [...] ] Onset: 09-07-2021 Episodic Residual codes; unclassified (9 sources) H/O: miscarriage; Translations: [Personal history of [...] Range Facility Urinalysis macro (dipstick) panel (U)on 03-29-2024 Bilirubin, UA Negative Negative - 4(70) +++ mg/dL [facility] Blood, UA Negative Negative - 50 Miguel Ángel/mcL [facility] Clarity, UA Clear [facility] Color, UA Yellow [facility] Glucose, UA Negative Negative - 1999(110) ++++ mg/dL [facility] Interpretation and review of laboratory results Abnormal [facility] Ketones, UA Negative Negative - 160(16) ++++ mg/dL [facility] Leukocytes, UA Positive Negative - 500+++ Stefania/mcL [facility] Comment on above: small Nitrite, UA Negative Negative - Positive [facility] pH, UA 7 5 - 9 [facility] Protein, UA Negative Negative - 1999(20) ++++ mg/dL [facility] Spec Grav, UA 1.02 1 - 1.03 [facility] Urobilinogen, UA 0.2 0.2 - 12 mg/dL [facility] Urinalysis macro (dipstick) panel (U)on 03-22-2024 Bilirubin, UA Negative Negative - 4(70) +++ mg/dL [facility] Blood, UA Negative Negative - 50 Miguel Ángel/mcL [facility] Clarity, UA Clear [facility] Color, UA Yellow [facility] Glucose, UA Negative Negative - 1999(110) ++++ mg/dL [facility] Interpretation and review of laboratory results Abnormal [facility] Ketones, UA Negative Negative - 160(16) ++++ mg/dL [facility] Leukocytes, UA Positive Negative - 500+++ Stefania/mcL [facility] Comment on above: small Nitrite, UA Negative Negative - Positive [facility] pH, UA 8.5 5 - 9 [facility] Protein, UA Trace Negative - 1999(20) ++++ mg/dL [facility] Spec Grav, UA 1.02 1 - 1.03 [facility] Urobilinogen, UA 0.2 0.2 - 12 mg/dL [facility] Urinalysis macro (dipstick) panel (U)on 03-15-2024 Bilirubin, UA Negative Negative - 4(70) +++ mg/dL [facility] Blood, UA Negative Negative - 50 Miguel Ángel/mcL [facility] Clarity, UA Clear [facility] Color, UA Yellow [facility] Glucose, UA Negative Negative - 1999(110) ++++ mg/dL [facility] Interpretation and review of laboratory results Abnormal [facility] Ketones, UA Negative Negative - 160(16) ++++ mg/dL [facility] Leukocytes, UA Positive Negative - 500+++ Stefania/mcL [facility] Comment on above: small Nitrite, UA Negative Negative - Positive [facility] pH, UA 7.5 5 - 9 [facility] Protein, UA Negative Negative - 1999(20) ++++ mg/dL [facility] Spec Grav, UA 1.020 1 - 1.03 [facility] Urobilinogen, UA 4.0 0.2 - 12 mg/dL [facility] Grp A Strp PCRon 02-04-2024 Grp A Strp Intrl Ctrl Pass Normal Fis her [facility] Comment on above: Order Comment: Order Added on by Discern Rule. Performed By: #### 1 [id number] #### [facility] Laboratory [address] [place] [id number] S. pyogenes DNA ALFREDO+probe Ql (Throat) Negative Normal [facility] Comment on above: Order Comment: Order Added on by Discern Rule. Result Comment: Test ing performed using DNA amplification. Performed By: #### 1 [id number] #### [facility] Laboratory [address] [place] [address] ED Clinical Summaryon 2023 ED Clinical Summary ED Clinical Summary [address] [address] ED Clinical Summary Person Information Name: KAILYN ACKERMAN [facility] Age: 23 Years : 2000 Sex: Female Language: Beninese PCP: SELAM HUNTER CNP Marital Status: Single Phone: [phone] MRN: Visit Id: Visit Reason: Headache; Body [...] 02/03/2024 11:17:23 02/03/2024 11:17:23 02/03/2024 11:17:23 ADDRESS: [address] [place] [phone] PHYS DOC NOTES: MEDICAL INFORMATION: Prescriptions Given: [...] Adult Follow up: With: Address: When: Juvenal MAURILIO [facility], [address] [place] [address] [place] [address] Business (1) In 3 days 02/06/2024 With: Address: When: SELAM [address], [place] [address] Business (1) In 3 days 02/06/2024 DIAGNOSIS: Sore throat; Viral URI Normal [facility] ED Note-Physicianon 02-03-20 24 ED Note-Physician ED Note-Physician Basic Information Time Seen: Duc Swanson PA-C 02/03/2024 09:24 Chief Complaint c/o throat pain, fatigue, body aches, headaches, congestion that started last night. states was around covid over the weekend, coworker tested positive this morning. states gets strep often as well. 30 weeks seedeja thorpe History of Present Illness Patient is [...] and will continue to follow-up with [facility] for further evaluation and management. We discussed [...] medications Follow-up With When Contact Information Juvenal MAURILIO In 3 days 02/06/2024 (more content not included)... Normal [facility] Comment on above: Result Comment: Elec tronically Signed By: Duc Swanson PA-C\.br\Date and Time Signed: 02/03/24 13:23 EDT\.br\Electronically Co-Signed By: Siva Schulte DO\.br\Date and Time Co-Signed: 02/03/24 14:44 EDT ED Patient Summaryon 024 ED Patient Summary ED Patient Summary [place] [id number] Patient Discharge Instructions Person Information Name: KAILYN ACKERMAN Age: 23 Years Arrival Date: 02/03/2024 09:21:41 Discharge Diagnosis: Sore throat; Viral URI Primary Care Physician: SELAM HUNTER CNP Provider Information Primary Provider: Siva Schulte DO [facility] Shift Lead:Duc Swanson PA-C The exam and treatment you received in the Emergency Department were for an urgent problem and are not intended as complete care. It is important that you follow up with a doctor, nurse practitioner, or physician?s certified pathology assistant for ongoing care. If your symptoms [...] Follow-up Instructions: With: Address: When: Juvenal THORPE [facility], [address] [place] [address] , [place] [address] Business (1) In 3 days 02/06/2024 With: Address: When: [place] [address] Business (1) In 3 days 02/06/2024 In the event that this physician does not participate in your insurance network, please consult with your insurance company to find a nearby participating provider. Patient Education Materials: Upper Respiratory Infection, Adult A MESSAGE TO ALL PATIENTS REGARDING OPIOIDS PRESCRIPTION OPIOIDS: WHAT YOU NEED TO KNOW Prescription opioids can be used to help relieve zcxeihbs-rz-lmkobn pain and are often prescribed following a [...] of op (more content not included)... Normal [facility] MICRO OTHER TESTSOrdered By: Nita Delgadillo on 02-03-2024 S. pyogenes Ag IA.rapid Ql (Throat) Negative (02/03/24 11:07 AM) Normal Negative [facility] MICRO OTHER TESTSOrdered By: Asuncion Goncalves on 02-03-2024 Rapid COV Int NEG Ctl Pass (02/03/24 9:30 AM) Normal [facility] [place] Rapid COV Int POS Ctl Pass (02/03/24 9:30 AM) Normal [facility] [place] [facility] SARS-CoV+SARS-CoV-2 (COVID-19) Ag IA.rapid Ql (Resp) Not Detected 1 (02/03/24 9:30 AM) Normal Not Detected [facility] Comment on above: Interpretive Data: Gato multani Respi Veritor System for Rapid Detection of SARS-CoV-2 [...] For in vitro diagnostic use. In the [facility], only for use under an Emergency Use [...] terminated or revoked sooner. Rapid COVID Antigen ([facility]on 02-03-2024 Rapid COV Int NEG Ctl Pass Normal [facility] Comment on above: Performed By: #### 2 [id number] #### [facility] [address] [place] [address] Rapid COV Int POS Ctl Pass Normal Fis her [facility] Comment on above: Performed By: #### 2 [id number] #### [facility] Laboratory [address] [place] [address] SARS-CoV+SARS-CoV-2 (COVID-19) Ag IA.rapid Ql (Resp) Not detected Normal Not Detected [facility] Comment on above: Result Comment: The iPointer? System for Rapid Detection of SARS-CoV-2 is [...] or revoked sooner. Performed By: #### 2 [id number] #### [facility] Laboratory [address] [place] [address] Rapid Strep w/rfxon 02-03-20 S. pyogenes Ag IA.rapid Ql (Throat) Negative Normal Negative [facility] Comment on above: Performed By: #### 2 [id number] #### [facility] Laboratory [address] [place] [address] ED Note-Physicianon 09-26-19 ED Note-Physician Basic Information [...] than 90,000. Ultrasound was obtained discussed with behavioral health technician. Intrauterine consistent with stated gestational age. Stable heart rate. Patient continues to demonstrate subchorionic hematoma. Also left-sided ovarian cyst similar to previous. Results were discussed with the patient. She is discharged home to continue pelvic rest and follow-up with [facility]. Patient was encouraged to return to the [...] Juvenal THORPE In 3 days 09/26/[address] , [place] [address] Business (1) Additional Instructions: Patient Education Subchorionic [...] made to ensure accuracy, however, inadvertently computerized chart clerk mistakes may be present. Appropriate healthcare PPE [...] Yes., 04/10/2019 Lab Results Beta hCG Qnt: 23098 mIU/mL High (09/23/23 09:28:00) Diagnostic Results No qualifying data available. Normal [facility] Comment on above: Result Comment: Elec tronically Signed By: Venkat Lockwood PA-C\.br\Date and Time Signed: 09/23/23 11:45 EDT\.br\Electronically Co-Signed By: Wil Chandra DO\.br\Date and Time Co-Signed: 09/26/23 07:37 EDT [facility] Quanton 09-23-20[place] [address] m[IU]/mL High 1-3 F [facility] Comment on above: Result Comment: 'F N ON < 1 - 3' ' 0.2 - 1 WEEK = 5 TO 50' ' 1 - 2 WEEKS = 50 - 500' ' 2 - 3 WEEKS = 100 - 5000' ' 3 - 4 WEEKS = 500 - 47300' ' 4 - 5 WEEKS = 1000 - 09233' ' 5 - 6 WEEKS = 36138 - 599842' ' 6 - 8 WEEKS = 32747 - 250533' ' 8 - 12 WEEKS = 16887 - 288731' Performed By: #### 2 [id number] ####[facility] [address] [place] [address] CHEMISTRYOrdered By: SYSTEM SYSTEM on 09-23-2023 [place] [address] m[IU]/mL High 1 - 3 mIU/mL [facility] Comment on above: Result Comment: 'F N ON < 1 - 3' ' 0.2 - 1 WEEK = 5 TO 50' ' 1 - 2 WEEKS = 50 - 500' ' 2 - 3 WEEKS = 100 - 5000' ' 3 - 4 WEEKS = 500 - 18217' ' 4 - 5 WEEKS = 1000 - 41404' ' 5 - 6 WEEKS = 25399 - 707600' ' 6 - 8 WEEKS = 77733 - 986147' ' 8 - 12 WEEKS = 53138 - 875892' Consent for Treatmenton 09-07 Consent for Treatment [id number] Normal [facility] Discharge Instructionson Discharge Instructions [id number] Normal [facility] ED Clinical Summaryon 2023 ED Clinical Summary [place] [id number] ED Clinical Summary Person Information Name: KAILYN ACKERMAN [facility] Age: 23 Years : 2000 Sex: Female Language: Beninese PCP: NONE, XXXX Marital Status: Single Phone: [phone] MRN: Visit Id: Visit Reason: Back pain; [...] 09/23/2023 11:52:16 09/23/2023 11:52:16 09/23/2023 11:52:16 ADDRESS: [address] [place] [phone] PHYS DOC NOTES: MEDICAL INFORMATION: Prescriptions Given: [...] Follow up: With: Address: When: Juvenal THORPE [facility], [address] [facility] [place] [address] Business (1) In 3 days 09/26/2023 DIAGNOSIS: Other antepartum hemorrhage, unspecified trimester; Subchorionic bleed; Vaginal bleeding in Normal [facility] ED Patient Education Noteon 09-23-2023 ED Patient [...] provider. Document Revised: 02/19/2021 Document Reviewed: 02/19/2021 [employer] Patient Education ? 2022 [employer] Normal [facility] ED Patient Summaryon 024 ED Patient Summary [place] [id number] Patient Discharge Instructions Person Information Name: KAILYN ACKERMAN Age: 23 Years Arrival Date: 09/23/2023 09:10:07 Discharge Diagnosis: Other antepartum hemorrhage, unspecified trimester; Subchorionic bleed; Vaginal bleeding in Primary Care Physician: NONE, XXXX Provider Information Primary Provider: Wil Chandra DO [facility] Shift Lead:Venkat Leal PA-C The exam and treatment you received in the Emergency Department were for an urgent problem and are not intended as complete care. It is important that you follow up with a doctor, nurse practitioner, or physician?s certified pathology assistant for ongoing care. If your symptoms become worse or you do not improve as expected and you are unable to reach your usual health care provider, you should return to the Emergency Department. We are available 24 hours a day. KAILYN ACKERMAN has been given the following list of patient education materials, prescriptions and follow-up instructions: Follow-up Instructions: With: Address: When: Juvenal MAURILIO [facility], [address] [place] [address] [place] [address] Business (1) In 3 days 09/26/2023 In the event that this physician does not participate in your insurance network, please consult with your insurance company to find a nearby participating provider. Patient Education Materials: Subchorionic Hematoma A MESSAGE TO ALL PATIENTS REGARDING OPIOIDS PRESCRIPTION OPIOIDS: WHAT YOU NEED TO KNOW Prescription opioids can be used to help relieve qmwkeumb-ab-nzsbrh pain and are often prescribed following a [...] care p (more content not included)... Normal [facility] Prescriptions/Work Noteson 0 09-23-2023 Prescriptions/Work Notes [id number] Normal [facility] US 1st Trimesteron 09-23-2023 US 1st Trimester [...] least 66% of the gestational sac circumference. [place] Rump Length: 3.2 cm, which corresponds Composite [...] Size = Dates Uterus Position Anteverted Normal [facility] C Urineon 08-29-2023 Bacteria identified Cx Nom [...] Locations R1: This test was performed at: [facility], [address] [place] [address], [address]- , [place], Normal [facility] Comment on above: Performed By: #### 4 [id number] ####[facility] [address] [place] [address] ABO/Rhon 08-27-2023 ABO/Rh Positive Invalid Interpretation Code [facility] Comment on above: Performed By: #### 2 [id number] ####[facility] [address] [place] [address] BLOOD BANKOrdered By: Liza Xavier on 08-27-2023 ABO/Rh Interp Positive Invalid Interpretation Code [facility] BB Subsection BMPon 08-27-2023 Anion gap [Moles/Vol] 11 mmol/L Normal 6-16 [facility] Comment on above: Performed By: #### 1 [id number], [id number], [id number] ####[address] [address] Calcium [Mass/Vol] 9.3 mg/dL Normal 8.9-11.1 [facility] Comment on above: Performed By: #### 1 [id number], [id number], [id number] ####[address] [address] Chloride [Moles/Vol] 104 mmol/L Normal 101-111 [facility] Comment on above: Performed By: #### 1 [id number], [id number], [id number] ####[facility] [address] [place] [address] CO2 [Moles/Vol] 24 mmol/L Normal 21-31 [facility] Comment on above: Performed By: #### 1 [id number], [id number], [id number] ####[place] [address] [place] [address] Creatinine [Mass/Vol] 0.6 mg/dL Normal 0.5-1.3 [facility] Comment on above: Performed By: #### 1 [id number], [id number], [id number] ####[address] [place] [address] Glucose [Mass/Vol] 87 mg/dL Normal 55-199 [facility] Comment on above: Performed By: #### 1 [id number], [id number], [id number] ####[facility] [address] [place] [address] Potassium [Moles/Vol] 3.7 mmol/L Normal 3.5-5.3 [facility] Comment on above: Performed By: #### 1 [id number], [id number], [id number] ####[facility] [address] [place] [address] Sodium [Moles/Vol] 135 mmol/L Normal 135-145 [facility] Comment on above: Performed By: #### 1 [id number], [id number], [id number] ####[facility] [address] [place] [address] Urea nitrogen [Mass/Vol] 8 mg/dL Normal 5-21 [facility] Comment on above: Performed By: #### 1 [id number], [id number], [id number] ####[facility] [address] [place] [address] Urea nitrogen/Creatinine [Mass ratio] 13 No Units Normal 10-20 [facility] Comment on above: Performed By: #### 1 [id number], [id number], [id number] ####[facility] [address] [place] [address] [facility] Quanton 08-27-2023 [place] [address] m[IU]/mL High 1-3 F [facility] Comment on above: Result Comment: 'F N ON < 1 - 3' ' 0.2 - 1 WEEK = 5 TO 50' ' 1 - 2 WEEKS = 50 - 500' ' 2 - 3 WEEKS = 100 - 5000' ' 3 - 4 WEEKS = 500 - 46372' ' 4 - 5 WEEKS = 1000 - 17414' ' 5 - 6 WEEKS = 06020 - 838701' ' 6 - 8 WEEKS = 85258 - 115404' ' 8 - 12 WEEKS = 79962 - 040221' Performed By: #### 2 [id number] ####[address] [address] CBC w/ Auto Diffon 4 Basophils/100 WBC (Bld) 0.6 % Normal 0.0-2.0 F [facility] Comment on above: Performed By: #### 1 [id number], [id number], [id number] ####[address] [address] Basophils/Leukocytes Auto (Bld) [Pure # fraction] 0.0 E9/L Normal 0.0-0.2 [facility] Comment on above: Performed By: #### 1 [id number], [id number], [id number] ####[address] [address] Eosinophils (Bld) [#/Vol] 0.1 E9/L Normal 0.0-0.5 [facility] Comment on above: Performed By: #### 1 [id number], [id number], [id number] ####[address] [address] Eosinophils/100 WBC (Bld) 2.0 % Normal 0.0-8.0 [facility] Comment on above: Performed By: #### 1 [id number], [id number], [id number] ####[address] [address] Erythrocyte distribution width (RBC) [Ratio] 15.0 % High 10.9-14.2 [facility] Comment on above: Performed By: #### 1 [id number], [id number], [id number] ####[address] [address] Hematocrit (Bld) [Volume fraction] 37.4 % Normal 34.0-46.0 [facility] Comment on above: Performed By: #### 1 [id number], [id number], [id number] ####[address] [address] Hemoglobin (Bld) [Mass/Vol] 12.7 g/dL Normal 12.0-16.0 [facility] Comment on above: Performed By: #### 1 [id number], [id number], [id number] ####[address] [address] Lymphocytes (Bld) [#/Vol] 2.0 E9/L Normal 1.0-4.0 [facility] [facility] Comment on above: Performed By: #### 1 [id number], [id number], [id number] ####[place] [id number] Lymphocytes/100 WBC (Bld) 28.1 % Normal 14.0-50.0 [facility] Comment on above: Performed By: #### 1 [id number], 8209457, [id number] ####[address] [address] MCH (RBC) [Entitic mass] 28.4 pg Normal 27.0-34.0 [facility] Comment on above: Performed By: #### 1 [id number], [id number], 4923697 ####[address] [address] MCHC (RBC) [Mass/Vol] 33.8 g/dL Normal 31.4-36.0 Fis [facility] Comment on above: Performed By: #### 1 [id number], 0621068, 5507753 ####[address] [address] MCV (RBC) [Entitic vol] 84.0 fL Normal 80.0-100.0 F [facility] Comment on above: Performed By: #### 1 [id number], 1309098, 5045775 ####[address] [address] Monocytes (Bld) [#/Vol] 0.5 E9/L Normal 0.2-1.0 F [facility] Comment on above: Performed By: #### 1 [id number], 0712210, 0710957 ####[address] [address] Neutrophils (Bld) [#/Vol] 4.5 E9/L Normal 2.0-7.5 [facility] Comment on above: Performed By: #### 1 [id number], 2853590, 2075334 ####[place] [address] [place] [address] Neutrophils/100 WBC (Bld) 61.9 % Normal 36.0-75.0 [facility] Comment on above: Performed By: #### 1 9234412, 3026102, 3290696 ####[address] [address] Platelet mean volume (Bld) [Entitic vol] 7.9 fL Normal 6.4-10.8 [facility] Comment on above: Performed By: #### 1 0648879, 1090284, 8303237 ####[address] [address] Platelets (Bld) [#/Vol] 252.0 E9/L Normal 150.0-500.0 [facility] Comment on above: Performed By: #### 1 [id number], 7332254, 2972812 ####[address] [address] RBC (Bld) [#/Vol] 4.5 E12/L Normal 4.3-5.9 [facility] Comment on above: Performed By: #### 1 2566647, 6989658, 2069748 ####[address] [address] WBC corrected for nucl RBC Auto (Bld) [#/Vol] 7.2 E9/L Normal 4.0-11.0 [facility] Comment on above: Performed By: #### 1 1481590, 8154709, 7759113 ####[address] [address] CHEMISTRYOrdered By: SYSTEM SYSTEM on 08-27-2023 Anion [...] 199 mg/[place] [address] m[IU]/mL High 1 - 3 mIU/mL [facility] Comment on above: Result Comment: 'F N ON < 1 - 3' ' 0.2 - 1 WEEK = 5 TO 50' ' 1 - 2 WEEKS = 50 - 500' ' 2 - 3 WEEKS = 100 - 5000' ' 3 - 4 WEEKS = 500 - 43365' ' 4 - 5 WEEKS = 1000 - 35971' ' 5 - 6 WEEKS = 54929 - 985174' ' 6 - 8 WEEKS = 64739 - 995666' ' 8 - 12 WEEKS = 16618 - 852930' Potassium [Moles/Vol] 3.7 mmol/L Normal 3.5 - 5.3 mmol/L [facility] Sodium [Moles/Vol] 135 mmol/L Normal 135 - 145 mmol/L [facility] Chem Urea nitrogen [Mass/Vol] 8 mg/dL Normal 5 - 21 mg/d L [facility] Chem Urea nitrogen/Creatinine [Mass ratio] 13 mg/mg Normal 10 - 20 Remisol Chem Consent for Treatmenton 08-08 Consent for Treatment [id number] Normal [facility] Discharge Instructionson Discharge Instructions [id number] Normal [facility] ED Clinical Summaryon 2023 ED Clinical Summary [place] [address] ED Clinical Summary Person Information Name: KAILYN ACKERMAN [facility] Age: 22 Years : 2000 Sex: Female Language: Beninese PCP: SELAM HUNTER CNP Marital Status: Single Phone: [phone] Visit Id: Visit Reason: Vaginal bleeding - [...] 08/27/2023 12:34:16 08/27/2023 12:34:16 08/27/2023 12:34:16 ADDRESS: [address] [place] [phone] PHYS DOC NOTES: MEDICAL INFORMATION: Prescriptions Given: Medications to Continue Taking That Have Changed [facility], [address] [place], [place] [id number], [phone] START: cephalexin (Keflex 500 mg Cap) 1 [...] Urinary Tract Infection; Urinary Tract Infection, Adult, Vhjc-qg-Kdyu; Subchorionic Hematoma Follow up: With: Address: When: Juvenal THORPE [facility], [address] [place] [address] [place] [address] Business (1) In 3 days 08/30/2023 With: Address: When: SELAM HUNTER [facility] [place] [address] Business (1) In 3 days DIAGNOSIS: Other antepartum hemorrhage, unspecified trimester; Subchorionic bleed; UTI (urinary tract infection) during ; Vaginal bleeding in Normal [facility] ED Note-Physicianon 08-27-19 ED Note-Physician Basic Information [...] and Complexity of Problems Differential Diagnosis: [] [facility] Data External documents reviewed: [] My [...] day(s), # 28 cap(s), Refills(s) 0, Pharmacy: [facility], 170, cm, 08/27/23 9:49:00 EDT, Height/Length [...] Juvenal THORPE In 3 days 08/30/[address] [place] [address]- Business (1) Additional Instructions: SELAM HUNTER In 3 days [address] [place] [address]- Business (1) Additional Instructions: Patient Education and Urinary Tract Infection Urinary Tract Infection, Adult, Tngc-il-Ryju Subchorionic Hematoma Attestation Patient seen and evaluated by the physician certified pathology assistant. Attending physician was present in the emergency department and s (more content not included)... Normal [facility] Comment on above: Result Comment: Elec tronically Signed By: Osvaldo CHUNG, Hudson Lang\.br\Date and Time Signed: 08/27/23 13:49 EDT\.br\Electronically Co-Signed By: Emily Harper M.D.\.earnest\Date and Time Co-Signed: 08/27/23 14:25 EDT ED [...] 01/09/2022 Document Reviewed: 01/09/2022 Elsevier Patient Education ? 2022 [employer]. Urinary Tract Infection, Adult A urinary tract [...] swelling (inflammation) (more content not included)... Normal [facility] ED Patient Summaryon 024 ED Patient Summary [address] [address] Patient Discharge Instructions Person Information Name: KAILYN ACKERMAN Age: 22 Years Arrival Date: 08/27/2023 09:37:12 Discharge Diagnosis: Other antepartum hemorrhage, unspecified trimester; Subchorionic bleed; UTI (urinary tract infection) during ; Vaginal bleeding in Primary Care Physician: SELAM HUNTER CNP Provider Information Primary Provider: Emily Harper M.D. [facility] Shift Lead:None The exam and treatment you received in the Emergency Department were for an urgent problem and are not intended as complete care. It is important that you follow up with a doctor, nurse practitioner, or physician?s certified pathology assistant for ongoing care. If your symptoms [...] Follow-up Instructions: With: Address: When: Juvenal THORPE [facility], [address] [place] [address] [place] [address] Business (1) In 3 days 08/30/2023 With: Address: When: SELAM HUNTER [address] [place] [address] [place] [address] Business (1) In 3 days In the event that this physician does not participate in your insurance network, please consult with your insurance company to find a nearby participating provider. Patient Education Materials: and Urinary Tract Infection; Urinary Tract Infection, Adult, Vngl-vl-Cogf; Subchorionic Hematoma A MESSAGE TO ALL PATIENTS REGARDING OPIOIDS PRESCRIPTION OPIOIDS: WHAT YOU NEED TO KNOW Prescription opioids can be used to help relieve lhydknnu-kj-rioyrz pain and are often prescribed following a [...] toilet, follo (more content not included)... Normal [facility] HEMATOLOGYOrdered By: SYSTEM SYSTEM on 08-27-2023 Basophils/100 [...] Rflxon 08-27-19 Color (U) Light-Yellow Normal Yellow [facility] Comment on above: Result Comment: Micr oscopic readings are only performed on those samples that meet specific criteria set forth by [facility] Laboratory. Performed By: #### 4 [id number], [id number] ####[facility] [address] [place] [address] Glucose (U) [Mass/Vol] Negative Normal Negative [facility] Comment on above: Performed By: #### 4 [id number], [id number] ####[facility] [address] [place] [address] Ketones Ql (U) Negative Normal Negative [facility] Comment on above: Performed By: #### 4 [id number], [id number] ####[facility] [address] [place] [address] UA Blood 3+ Abnormal Negative [facility] Comment on above: Performed By: #### 4 [id number], [id number] ####[facility] [address] [place] [address] UA Bacteria 1+ [id number] Abnormal Trace [facility] Comment on above: Performed By: #### 4 [id number], [id number] ####[facility] [address] [place] [address] UA Clarity Turbid Abnormal Clear [facility] Comment on above: Performed By: #### 4 [id number], [id number] ####[facility] [address] [place] [address] UA Hyal Cast 0-3 Normal 0-3 [facility] Comment on above: Performed By: #### 4 [id number], [id number] ####[facility] [address] [place] [address] UA Leuk Est 250 Stefania/uL Abnormal Negative [facility] Comment on above: Performed By: #### 4 [id number], [id number] ####[facility] [address] [place] [address] UA Mucous Trace Normal Negative [facility] Comment on above: Performed By: #### 4 [id number], [id number] ####[facility] [address] [place] [address] UA Nitrite Negative Normal Negative [facility] Comment on above: Performed By: #### 4 [id number], [id number] ####[facility] [address] [place] [address] UA pH 5.5 Invalid Interpretation Code 5.0-9.0 [facility] Comment on above: Performed By: #### 4 [id number], [id number] ####[facility] [address] [place] [address] UA Protein 1+ mg/dL Abnormal Negative [facility] Comment on above: Performed By: #### 4 [id number], [id number] ####[facility] [address] [place] [address] UA RBC 4-20 Abnormal 0-3 [facility] Comment on above: Performed By: #### 4 [id number], [id number] ####[facility] [address] [place] [address] UA Spec Grav 1.018 Invalid Interpretation Code 1.005-1.030 [facility] Comment on above: Performed By: #### 4 [id number], [id number] ####[facility] [address] [place] [address] UA Squam Epithelial 3-4 Abnormal 0-2 [facility] Comment on above: Performed By: #### 4 [id number], [id number] ####[address] [address] UA Urobilinogen Negative Normal Negative [facility] Comment on above: Performed By: #### 4 [id number], [id number] ####[facility] [address] [place] [address] UA WBC 6-15 Abnormal 0-5 [facility] Comment on above: Performed By: #### 4 [id number], [id number] ####[facility] [address] [place] [address] Urobilinogen (U) [Mass/Vol] Negative Normal Negative [facility] Comment on above: Performed By: #### 4 [id number], [id number] ####[facility] [address] [place] [address] UA Spec Desc Clean Catch Normal [facility] Comment on above: Performed By: #### 4 [id number], [id number] ####[facility] [address] [place] [address] URINALYSISOrdered By: SYSTEM SYSTEM on 08-27-2023 Color (U) Light-Yellow 1 (08/27/23 9:55 AM) Normal Yellow [facility] Auto SS Comment on above: Interpretive Data: M icroscopic readings are only performed on those samples that meet specific criteria set forth by [facility] Laboratory. Glucose (U) [Mass/Vol] Negative Normal Negat ivemg/d L [facility] UA Auto SS Ketones Ql (U) Negative [...] Reason for Exam: Other (please specify) Report [facility] [phone] IMPRESSION: Single live intrauterine with estimated sonographic [...] heart rate is measured at 120 bpm. [place]-rump length 4.77 mm. Estimated sonographic gestational age [...] Transvaginal Ultrasound Performed FHR (bpm) 120 Normal [facility] US Transvaginalon 08-27-2023 US Transvaginal Exam Date/Time: 08/27/2023 11:55 EDT Reason for Exam: Other (please specify) Report [facility] [phone] Please see ultrasound pelvis, for report of transvaginal examination. Ordering Provider: Hudson Riley FINAL REPORT Dictated: 08/27/2023 12:33 pm Zach Deng MD Signed (Electronic Signature): 08/27/2023 12:33 pm Signed by: Zach Deng MD Transcribed by: KIRK Technologist: HW Normal [facility] eGFRon 08-27-2023 eGFR 131 mL/min/1.73 m2 Normal >=59 [facility] Comment on above: Order Comment: Order added by Discern Expert. Performed By: #### 1 [id number], [id number], [id number] ####[facility] [address] [place] [address] BhCG Quanton 08-19-2023 HCG.beta subunit Qn 4261 m[IU]/mL High 1-3 [facility] Comment on above: Result Comment: 'F N ON < 1 - 3' ' 0.2 - 1 WEEK = 5 TO 50' ' 1 - 2 WEEKS = 50 - 500' ' 2 - 3 WEEKS = 100 - 5000' ' 3 - 4 WEEKS = 500 - 8[address]46' ' 4 - 5 WEEKS = 1000 - 18329' ' 5 - 6 WEEKS = [address] - 482745' ' 6 - 8 WEEKS = 286[address] - 385423' ' 8 - 12 WEEKS = [address] - 095420' Performed By: #### 2 [id number] ####[facility] [address] [place] [address] Physician Orderon 08-19-2023 Physician Order [id number] Normal [facility] CHEMISTRYOrdered By: Juancho benitez on 01-03-2023 Albumin [...] 17 [iU]/d Normal 5 - 43 Int._Unit/L FT [facility] Bilirubin [Mass/Vol] 0.7 mg/dL Normal 0.0 - 1 .1 mg/dL FT [facility] Bilirubin.direct [Mass/Vol] 0.1 mg/dL Normal 0.1 - 0.4 mg/dL FT [facility] Bilirubin.indirect [Mass or moles/Vol] 0.6 mg/dL Normal 0.1 - 0.9 mg/dL [facility] Remisol Calcium [Mass/Vol] 9.0 mg/dL Normal 8.9 - 11. 1 mg/dL [facility] Chloride [Moles/Vol] 106 mmol/L Normal 101 - 1 11 mmol/L [facility] Remisol CO2 [Moles/Vol] 23 mmol/L Normal 21 - 31 mmol/L [facility] Creatinine [Mass/Vol] 0.8 mg/dL Normal 0.5 - 1.3 mg/dL [facility] Globulin (S) [Mass/Vol] 3.1 g/dL Normal 1.4 - 4.0 gm/dL FT [facility] Glucose [Mass/Vol] 101 mg/dL Normal 55 - 199 mg/dL [facility] Lipase [Catalytic activity/Vol] 29 U/L Normal 13 - 58 unit/L FT [facility] Potassium [Moles/Vol] 3.5 mmol/L Normal 3.5 - 5.3 mmol/L [facility] Protein [Mass/Vol] 7.0 g/dL Normal 6.0 - 7.8 gm/dL FT [...] mL/min/1.73 m2 Normal >=59mL/min/1 .73 m2 [facility] Chem S HCG.beta subunit Qn 1572 [...] (U) No growth to date Continuing incubation [facility] MICRO OTHER TESTSOrdered By: Juancho Fitch [...] Interpretation Code Negative [facility] UA Auto SS Lonetree.plasma/Lonetree.R BC (Bld) [Mass ratio] 0-3 /HPF Normal [...] [facility] UA Auto SS Urobilinogen Qn (U) 1.5685086 {Georgina'U}/dL Normal 0.0 - 1.0 EU/dL [facility] [...] By: #### C BC, CMP, ETOH #### [facility] [address] [place] [address] Albumin [Mass/volume] in Ser um or Plasma [...] #### C BC, CMP, ETOH #### [address] Amphetamine Screen Ql (U)Ord ered By: Jose Silverman on 10-02-2022 Amphetamines Ql (U) Negative Negative [facility] Aspartate aminotransferase [ Enzymatic activity/volume] in Serum or PlasmaOrdered By: Jose Silverman on 10-02-2022 AST [Catalytic activity/Vol] 21 U/L Normal 13-39 [facility] Comment on above: Performed By: #### C BC, CMP, ETOH #### [address] Automated basophil %Ordered By: Jose Silverman on 10-02-2022 Basophils/100 WBC (Bld) 0.5 % Normal . [facility] Comment on above: Performed By: #### C BC, CMP, ETOH #### [address] Automated basophil countOrde red By: Jose Silverman on 10-02-2022 Basophils (Bld) [#/Vol] 0.1 10*3/uL Normal 0.0-0.2 [facility] Comment on above: Result Comment: PERF ORMED BY: [place] [address] PATHOLOGIST SIMONIZER ASHELY CAREY M.D. Performed By: #### C BC, CMP, ETOH #### [address] Automated blood monocyte cou ntOrdered By: Jose Silverman on 10-02-2022 Monocytes (Bld) [#/Vol] 0.7 10*3/uL Normal 0.0-0.8 [facility] Comment on above: Performed By: #### C BC, CMP, ETOH #### [address] Automated eosinophil %Ordere d By: Jose Silverman on 10-02-2022 Eosinophils/100 WBC (Bld) 2.0 % Normal . [facility] Comment on above: Performed By: #### C BC, CMP, ETOH #### [facility] [address] [place] [address] Automated eosinophil countOr dered By: Jose Silverman on 10-02-2022 Eosinophils (Bld) [#/Vol] 0.3 10*3/uL Normal 0.0-0.45 [facility] Comment on above: Performed By: #### C BC, CMP, ETOH #### [address] Automated erythrocytes count in urine [...] WBC (Bld) 5.7 % Normal . [facility] Comment on above: Performed By: #### C BC, CMP, ETOH #### [address] Automated neutrophil %Ordere d By: Jose Silverman on 10-02-2022 Neutrophils/100 WBC (Bld) 68.7 % Normal . [facility] Comment on above: Performed By: #### C BC, CMP, ETOH #### [address] Barbiturates [Presence] in U rine by Screen methodOrdered By: Jose Silverman on 10-02-2022 Barbiturates Screen Ql (U) Negative Negative [facility] Benzodiazepines Screen Ql (U )Ordered By: Jose Silverman on 10-02-2022 Benzodiazepines Ql (U) Negative Negative [facility] Benzoylecgonine [Presence] i n Urine by Screen methodOrdered By: Jose Silverman on 10-02-2022 Benzoylecgonine Screen Ql (U) Negative Negative [facility] Bilirubin Test strip Ql (U)O rdered By: Jose Silverman on 10-02-2022 Bilirubin Ql (U) Negative Negative [facility] Bilirubin.total [Mass/volume ] in Serum or PlasmaOrdered By: Jose Silverman on 10-02-2022 Bilirubin [Mass/Vol] 0.3 mg/dL Normal 0.3-1.0 [facility] Comment on above: Performed By: #### C BC, CMP, ETOH #### [facility] [address] [place] [address] [place] Calcium [Mass/volume] in Ser um or PlasmaOrdered By: Jose Silverman on 10-02-2022 Calcium [Mass/Vol] 9.6 mg/dL Normal 8.6-10.3 [facility] Comment on above: Performed By: #### C BC, CMP, ETOH #### [facility] [address] Cannabinoids [Presence] in U rine by [...] Normal 21.0-31.0 [facility] Comment on above: Performed By: #### C BC, CMP, ETOH #### [facility] [address] [place] [id number] [place] Chloride [Moles/volume] in S brian or PlasmaOrdered By: Jose Silverman on 10-02-2022 Chloride [Moles/Vol] 101 mmol/L Normal 98-107 [facility] Comment on above: Performed By: #### C BC, CMP, ETOH #### [facility] [address] [place] [id number] [place] Color Auto (U)Ordered By: Loli Silverman on 10-02-2022 Color (U) Yellow Yellow [facility] Complete Blood Count Auto Di ffon 10-02-2022 Mean Corpuscular HGB Conc 32.0 g/dL Normal 32.0-35.0 [facility] Comment on above: Performed By: #### C BC, CMP, ETOH #### [facility] [address] [place] [address] [place] Monocytes/100 WBC (Bld) 17.72 % Normal 0.00-20.[address] [facility] Comment on above: Performed By: #### C BC, CMP, ETOH #### [facility] [address] NRBC% 0.0 /100{WBC} Normal 0-0.5 [facility] Comment on above: Performed By: #### C BC, CMP, ETOH #### [facility] [address] Comprehensive Metabolic Pane tung 10-02-2022 Albumin [Mass/Vol] 5.0 g/dL Normal 3.5-5.7 [facility] Comment on above: Performed By: #### C BC, CMP, ETOH #### [facility] [address] [place] [address] [place] Creatinine Clr Calc Pharmacy 107.48 [facility] Comment on above: Result Comment: PERF ORMED BY: [place] [address] PATHOLOGIST SIMONIZER ASHELY CAREY M.D. Performed By: #### C BC, CMP, ETOH #### [facility] [address] [place] [address] [place] GFR/1.73 sq M.predicted MDRD (S/P/Bld) [Vol rate/Area] mL/min/{1.73_m2} [facility] Comment on above: Performed By: #### C BC, CMP, ETOH #### [facility] [address] [place] [address] [place] Creatinine [Mass/volume] in Serum or PlasmaOrdered By: Jose Silverman on 10-02-2022 Creatinine [Mass/Vol] 0.89 mg/dL Normal 0.60-1.[address] [facility] Comment on above: Performed By: #### C BC, CMP, ETOH #### [facility] [address] [place] [address] [place] Dipstick and Microscopicon 0 10-02-2022 Appearance (U) Clear Normal Clear [facility] Comment on above: Order Comment: Name Collection Type:: Clean-Voided Midstream Performed By: #### U RDS, ADDONUAPLUS, CUU, UHCG #### [address] Bacteria,Urine 2+ High None Seen [facility] Comment on above: Order Comment: Name Collection Type:: Clean-Voided Midstream Performed By: #### U RDS, ADDONUAPLUS, CUU, UHCG #### [address] Bilirubin,Urine Negative Normal Negative [facility] Comment on above: Order Comment: Name Collection Type:: Clean-Voided Midstream Performed By: #### U RDS, ADDONUAPLUS, CUU, UHCG #### [facility] [address] [place] [address] Color (U) Yellow Normal Yellow [facility] Comment on above: Order Comment: Name Collection Type:: Clean-Voided Midstream Performed By: #### U RDS, ADDONUAPLUS, CUU, UHCG #### [facility] [address] [place] [address] [place] Glucose Ql (U) Normal Normal Normal [facility] Comment on above: Order Comment: Name Collection Type:: Clean-Voided Midstream Performed By: #### U RDS, ADDONUAPLUS, CUU, UHCG #### [facility] [address] [place] [address] [place] Hyaline Casts,Urine 0-8 Normal 0-8 [facility] Comment on above: Order Comment: Name Collection Type:: Clean-Voided Midstream Performed By: #### U RDS, ADDONUAPLUS, CUU, UHCG #### [place] [address] [place] Ketones Ql (U) Negative Normal Negative [facility] Comment on above: Order Comment: Name Collection Type:: Clean-Voided Midstream Performed By: #### U RDS, ADDONUAPLUS, CUU, UHCG #### [facility] [address] [place] [address] Leukocyte esterase Test strip Ql (U) 3+ High Negative [facility] Comment on above: Order Comment: Name Collection Type:: Clean-Voided Midstream Performed By: #### U RDS, ADDONUAPLUS, CUU, UHCG #### [facility] [address] [place] [address] Nitrite,Urine Negative Normal Negative [facility] Comment on above: Order Comment: Name Collection Type:: Clean-Voided Midstream Performed By: #### U RDS, ADDONUAPLUS, CUU, UHCG #### [facility] [address] [place] [address] Occult Blood,Urine Negative Normal Negative [facility] Comment on above: Order Comment: Name Collection Type:: Clean-Voided Midstream Performed By: #### U RDS, ADDONUAPLUS, CUU, UHCG #### [facility] [address] [place] [address] pH (U) 6.5 [pH] Normal 5.0-9.0 [facility] Comment on above: Order Comment: Name Collection Type:: Clean-Voided Midstream Performed By: #### U RDS, ADDONUAPLUS, CUU, UHCG #### [facility] [address] [place] [address] [place] Protein,Urine Negative Normal Negative [facility] Comment on above: Order Comment: Name Collection Type:: Clean-Voided Midstream Performed By: #### U RDS, ADDONUAPLUS, CUU, UHCG #### [facility] [address] [place] [address] [place] RBC LM.HPF (Urine sed) [#/Area] 0 /[HPF] Normal 0-4 [facility] Comment on above: Order Comment: Name Collection Type:: Clean-Voided Midstream Performed By: #### U RDS, ADDONUAPLUS, CUU, UHCG #### [facility] [address] [place] [address] Specificy [place],Urine 1.021 Normal 1.001-1.030 [facility] Comment on above: Order Comment: Name Collection Type:: Clean-Voided Midstream Performed By: #### U RDS, ADDONUAPLUS, CUU, UHCG #### [place] [address] [place] Squamous Epithelial Cell,Urine 10-19 High 0-2 [facility] Comment on above: Order Comment: Name Collection Type:: Clean-Voided Midstream Performed By: #### U RDS, ADDONUAPLUS, CUU, UHCG #### [address] Urobilinogen,Urine Normal Normal Normal [facility] Comment on above: Order Comment: Name Collection Type:: Clean-Voided Midstream Performed By: #### U RDS, ADDONUAPLUS, CUU, UHCG #### [facility] [address] [place] [address] WBC,Urine -19 High 0-4 [facility] Comment on above: Order Comment: Name Collection Type:: Clean-Voided Midstream Performed By: #### U RDS, ADDONUAPLUS, CUU, UHCG #### [facility] [address] [place] [address] [place] Drug Screen,Urineon 10-03-19 23 Amphetamine Screen,Urine Negative Normal Negative [facility] Comment on above: Performed By: #### U RDS, ADDONUAPLUS, CUU, UHCG #### [facility] [address] [place] [address] [place] Barbiturate Screen,Urine Negative Normal Negative [facility] Comment on above: Performed By: #### U RDS, ADDONUAPLUS, CUU, UHCG #### [address] Benzodiazepines Screen,Urine Negative Normal Negative [facility] Comment on above: Performed By: #### U RDS, ADDONUAPLUS, CUU, UHCG #### [address] Cannabinoid Screen,Urine Negative Normal Negative [facility] Comment on above: Result Comment: Thes e are unconfirmed results and should not be used for legal purposes. Drug Cut-Off Concentration: AMPH 1000 ng/mL MIAH 200 ng/mL AYAN 200 ng/mL COCM 300 ng/mL OP 300 ng/mL PCP 25 ng/mL THC 20 ng/mL PERFORMED BY: [place] [address] PATHOLOGIST SIMONIZER ASHELY CAREY M.D. Performed By: #### U RDS, ADDONUAPLUS, CUU, CG #### [address] Cocaine Screen,Urine Negative Normal Negative [facility] Comment on above: Performed By: #### U RDS, ADDONUAPLUS, CUU, CG #### [address] Opiate Screen,Urine Negative Normal Negative [facility] Comment on above: Performed By: #### U RDS, ADDONUAPLUS, CUU, CG #### [address] Phencyclidine Screen,Urine Negative Normal Negative [facility] Comment on above: Performed By: #### U RDS, ADDONUAPLUS, CUU, CG #### [address] Erythrocyte distribution wid th [Ratio] by Automated countOrdered By: Jose Silverman on 10-02-2022 Erythrocyte distribution width (RBC) [Ratio] 15.8 % High 11.9-15.3 [facility] Comment on above: Performed By: #### C BC, CMP, ETOH #### [address] Erythrocytes [#/volume] in B lood by Automated countOrdered By: Jose Silverman on 10-02-2022 RBC (Bld) [#/Vol] 5.31 10*6/uL High 3.60-5.00 [facility] Comment on above: Performed By: #### C BC, CMP, ETOH #### [facility] [address] Ethanol [Mass/volume] in Ser um or PlasmaOrdered By: Jose Silverman on 10-02-2022 Ethanol [Mass/Vol] mg/dL Normal [facility] Comment on above: Performed By: #### C BC, CMP, ETOH #### [facility] [address] [place] [address] [place] Ethanol [Mass/Vol] TNP [facility] Comment on above: Test not performed Ethyl Alcohol Profileon 09-08 Percent Ethanol Not performed Normal [facility] Comment on above: Result Comment: PERF ORMED BY: [place] [address] PATHOLOGIST SIMONIZER ASHELY CAREY M.D. Performed By: #### C BC, CMP, ETOH #### [facility] [address] Glucose [Mass/volume] in Ser um or PlasmaOrdered By: Jose Silverman on 10-02-2022 Glucose [Mass/Vol] 98 mg/dL Normal 70-100 [facility] Comment on above: ADA recommended refe rence rangeRandom Glucose Reference Range is dependent on time and content of last meal. Glucose of more than 200 mg/dL in a nonstressed, ambulatory subject supports the diagnosis of Diabetes Mellitus. Result Comment: [place] om Glucose Reference Range is dependent on time and content of last meal. Glucose of more than 200 mg/dL in a nonstressed, ambulatory subject supports the diagnosis of Diabetes Mellitus. ADA recommended reference range Performed By: #### C BC, CMP, ETOH #### [facility] [address] [place] [address] [place] HCG ( test) [place].rapi d Ql (U)Ordered By: Jose Sliverman on 10-02-2022 HCG ( test) Ql (U) Negative [facility] HCG,Urineon 10-02-2022 Beta HCG ( test) Ql (U) Negative Normal [facility] Comment on above: Order Comment: Name Collection Type:: Clean-Voided Midstream Result Comment: PERF ORMED BY: [place] [address] PATHOLOGIST SIMONIZER ASHELY CAREY M.D. Performed By: #### U RDS, ADDONUAPLUS, CUU, UHCG #### [facility] [address] [place] [address] Hematocrit [Volume Fraction] of Blood by Automated countOrdered By: Jose Silverman on 10-02-2022 Hematocrit (Bld) [Volume fraction] 41.7 % Normal 34.0-46.4 [facility] Comment on above: Performed By: #### C BC, CMP, ETOH #### [facility] [address] [place] [address] Hemoglobin [Mass/volume] in BloodOrdered By: Jose Silverman on 10-02-2022 Hemoglobin (Bld) [Mass/Vol] 13.3 g/dL Normal 11.8-15.4 [facility] Comment on above: Performed By: #### C BC, CMP, ETOH #### [facility] [address] [place] [address] Ketones Auto test strip (U) [Mass/Vol]Ordered By: Jose Silverman on 10-02-2022 Ketones (U) [Mass/Vol] Negative Negative [facility] - UrinalysisOrder ed By: [...] WBC (Bld) [#/Vol] 12.9 10*3/uL High 3.8-11.6 [facility] Comment on above: Performed By: #### C BC, CMP, ETOH #### [address] Lymphocytes [#/volume] in Bl ood by Automated countOrdered By: Jose Silverman on 10-02-2022 Lymphocytes (Bld) [#/Vol] 3.0 10*3/uL Normal 1.00-4.8 [facility] Comment on above: Performed By: #### C BC, CMP, ETOH #### [address] Lymphocytes/100 leukocytes i n Blood by Automated countOrdered By: Jose Silverman on 10-02-2022 Lymphocytes/100 WBC (Bld) 23.1 % Normal . [facility] Comment on above: Performed By: #### C BC, CMP, ETOH #### [address] MCH [Entitic mass] by Automa ruby countOrdered By: Jose Silverman on 10-02-2022 MCH (RBC) [Entitic mass] 25.2 pg Normal 24.7-34.3 [facility] Comment on above: Performed By: #### C BC, CMP, ETOH #### [address] MCHC Auto (RBC) [Mass/Vol]Or dered By: Jose Silverman on 10-02-2022 MCHC (RBC) [Mass/Vol] 32.0 g/dL 32.0-35.[address] [facility] MCV [Entitic volume] by Auto mated countOrdered By: Jose Silverman on 10-02-2022 MCV (RBC) [Entitic vol] 78.5 fL Low 80-[address] [facility] Comment on above: Performed By: #### C BC, CMP, ETOH #### [place] [address] [place] Monocyte distribution width [Entitic volume] in Blood by AutomatedOrdered By: Jose Silverman on 10-02-2022 Monocyte distribution width Auto (Bld) [Entitic vol] 17.72 % 0.00-20.00 [facility] Neutrophils [#/volume] in Bl ood by Automated countOrdered By: Jose Silverman on 10-02-2022 Neutrophils (Bld) [#/Vol] 8.9 10*3/uL High 1.8-7.7 [facility] Comment on above: Performed By: #### C BC, CMP, ETOH #### [facility] [address] [place] [address] [place] Nitrite Test strip Ql (U)Ord ered By: [...] Screen Ql (U) Negative Negative [facility] Phencyclidine Screen Ql (U)O rdered By: Jose Silverman on 10-02-2022 Phencyclidine Ql (U) Negative Negative [facility] Platelet mean volume [Entiti c volume] in Blood by Automated countOrdered By: Jose Silverman on 10-02-2022 Platelet mean volume (Bld) [Entitic vol] 7.7 fL Normal 6.3-10.7 [facility] Comment on above: Performed By: #### C BC, CMP, ETOH #### [facility] [address] [place] [address] [place] Platelets [#/volume] in Bloo d by Automated countOrdered By: Jose Silverman on 10-02-2022 Platelets (Bld) [#/Vol] 342 10*3/uL Normal 150-450 [facility] Comment on above: Performed By: #### C BC, CMP, ETOH #### [facility] [address] [place] [address] [place] Potassium [Moles/volume] in Serum or PlasmaOrdered By: Jose Silverman on 10-02-2022 Potassium [Moles/Vol] 3.8 mmol/L Normal 3.5-5.[address] [facility] Comment on above: Performed By: #### C BC, CMP, ETOH #### [address] Protein Auto test strip (U) [Mass/Vol]Ordered By: Jose Silverman on 10-02-2022 Protein (U) [Mass/Vol] Negative Negative [facility] Protein [Mass/volume] in Ser um or PlasmaOrdered By: Jose Silverman on 10-02-2022 Protein [Mass/Vol] 8.7 g/dL Normal 6.4-8.9 [facility] Comment on above: Performed By: #### C BC, CMP, ETOH #### [address] Serum globulin measurement b y calculation (mass/volume)Ordered By: Jose Silverman on 10-02-2022 Globulin (S) [Mass/Vol] 3.7 g/dL Normal [facility] Comment on above: Performed By: #### C BC, CMP, ETOH #### [address] Serum or plasma albumin/glob ulin mass ratioOrdered By: Jose Silverman on 10-02-2022 Albumin/Globulin [Mass ratio] 1.4 {ratio} Normal [facility] Comment on above: Performed By: #### C BC, CMP, ETOH #### [address] Serum or plasma anion gap de terminationOrdered By: Jose Silverman on 10-02-2022 Anion gap [Moles/Vol] 12.6 mmol/L Normal 6.0-15.0 [facility] Comment on above: Performed By: #### C BC, CMP, ETOH #### [address] Sodium [Moles/volume] in Ser um or PlasmaOrdered By: Jose Silverman on 10-02-2022 Sodium [Moles/Vol] 137 mmol/L Normal 136-145 [facility] Comment on above: Performed By: #### C BC, CMP, ETOH #### [facility] [address] [place] [address] Specific gravity Auto test s trip (U) [...] By: #### C BC, CMP, ETOH #### [facility] [address] [place] [address] Urine Cultureon 10-02-2022 Bacteria identified Cx Nom (U) ORGANISM: Strep agalactiae - (group b) (O:STRAGA) [place] Count 50,000 PERFORMED BY: [place] [address] PATHOLOGIST SIMONIZER ASHELY CAREY M.D. [facility] Comment on above: Performed By: #### U RDS, ADDONUAPLUS, CUU, UHCG #### [facility] [address] [place] [address] Urine bacteria detection by automated methodOrdered By: Jose Silverman on 10-02-2022 Bacteria Auto Ql (U) 2+ None Seen [facility] Urine clarity by refractomet ry [...] pyogenes Org specific cx Ql (Throat) Negative [employer] Other Quick Strep [employer] Other CHEMISTRYOrdered By: SYSTEM SYSTEM on 09-06-2022 Anion gap [Moles/Vol] 10 mmol/L Normal 6 - 16 mEq/L F [facility] Remisol Calcium [Mass/Vol] 9.2 mg/dL Normal 8.9 - 11. 1 mg/dL [facility] Chloride [Moles/Vol] 104 mmol/L Normal 101 - 1 11 mmol/L [facility] CO2 [Moles/Vol] 27 mmol/L Normal 21 - 31 mmol/L [facility] Creatinine [Mass/Vol] 0.7 mg/dL Normal 0.5 - 1.3 mg/dL [facility] GFR/1.73 sq M.predicted among blacks MDRD (S/P/Bld) [Vol rate/Area] mL/min/1.73 m2 Normal >=59mL/min/1 .73 m2 [facility] [place] S GFR/1.73 sq M.predicted among non-blacks MDRD (S/P/Bld) [Vol rate/Area] mL/min/1.73 m2 Normal >=59mL/min/1 .73 m2 [facility] [place] S Glucose [Mass/Vol] 82 mg/dL [...] (U) [Moles/Vol] Positive (09/06/22 11:19 AM) Normal [facility] Man Sero URINALYSISOrdered By: Marlo Burroughs [...] AM) Normal Negative [facility] UA Auto SS Lon[place]ree.plasma/Lonetree.R BC (Bld) [Mass ratio] >30 /HPF Invalid [...] [facility] UA Auto SS Urobilinogen Qn (U) 0.0215548 {Georgina'U}/dL Normal 0.0 - 1.0 EU/dL [facility] UA Auto SS WBC Auto Ql (U) Negative (09/06/22 11:19 AM) Normal Negative [facility] UA Auto SS WBC LM.HPF (Urine sed) [#/Area] 0-5 /HPF Normal 0-5/HPF [facility] UA Auto SS BLOOD BANKOrdered By: John Montague on 08-14-2022 ABO/Rh Interp Positive Invalid Interpretation Code [facility] BB Subsection CHEMISTRYOrdered By: SYSTEM SYSTEM [...] rate/Area] mL/min/1.73 m2 Normal >=59mL/min/1 .73 m2 [facility] [place] Chem S GFR/1.73 sq M.predicted among non-blacks MDRD (S/P/Bld) [Vol rate/Area] mL/min/1.73 m2 Normal >=59mL/min/1 .73 m2 [facility] Chem S Globulin (S) [Mass/Vol] 3.2 [...] PM) Normal Negative [facility] UA Auto SS [place].plasma/[place]ree.R BC (Bld) [Mass ratio] 0-3 /HPF Normal 0-3/HPF [facility] UA Au to SS Mucus Ql (Urine sed) Trace (08/14/22 7:29 PM) Normal [facility] UA Auto SS Nitrite Ql (U) Negative (08/14/22 7:29 PM) Normal Negative [facility] UA Auto SS pH (U) 6.0 *NA* (08/14/22 7:29 PM) Invalid Interpretation Code 5.0 - 9.0 [facility] UA Auto SS Protein (U) [Mass/Vol] Negative (08/14/22 7:29 PM) Normal Negative [facility] UA Auto SS Specific gravity (U) [Rel density] >=1.030 *NA* (08/14/22 7:29 PM) Invalid Interpretation Code 1.005 - 1.030 [facility] UA Auto SS UA Spec Desc Clean Catch (08/14/22 7:29 PM) Normal [facility] UA Auto SS Urobilinogen Qn (U) 0.2273611 {Georgina'U}/dL Normal 0.0 - 1.0 EU/dL [facility] UA Auto SS WBC Auto Ql (U) Negative (08/14/22 7:29 PM) Normal Negative [facility] UA Auto SS WBC LM.HPF (Urine sed) [#/Area] 0-5 /HPF Normal 0-5/HPF [facility] UA Auto SS CHLAMYDIA/GONOCOCCUS ALFREDO (SW AB/URINE/PAPon 07-15-2022 Chlamydia trachomatis, ALFREDO Negative Normal Negative [facility] Comment on above: Performed By: #### C T/NGNA #### [facility] [address] [address] [address] Cyril Hendricks Neisseria gonorrhoeae, ALFREDO Negative Normal Negative [facility] Comment on above: Performed By: #### C T/NGNA #### [facility] [address] [address] [address] Cyril Hendricks VAGINITIS/VAGINOSIS DNA PROB Maurice 07-13-2022 Krista species Negative Normal Negative [facility] Comment on above: Performed By: #### U MICRO, UACSIND #### [facility] [address] [address] [address] Cyril Hendricks Gardnerella vaginalis Positive Abnormal Negative [facility] Comment on above: Performed By: #### U MICRO, UACSIND #### [facility] [address] [address] [address] Cyril Hendricks Trichomonas vaginalis Negative Normal Negative [facility] Comment on above: Performed By: #### U MICRO, UACSIND #### [facility] [address] [place] [address] Dr. Cyril Hendricks COVID/FLU RT-PCRon 3 SARS-CoV-2 (COVID-19) RNA ALFREDO+probe Ql (Unsp spec) Negative [facility] Other COVID/FLU RT-PCR Negative [facility] Other Quick Strepon 06-24-2022 S. pyogenes Org specific cx Ql (Throat) Negative [facility] Other Quick Strep [facility] Other CBC AUTO DIFFon 01-08-2022 BASO # 0.1 103/ul Normal 0.0-0.1 [facility] Comment on above: Performed By: #### C BC #### [facility] [address] [place] [address] Dr. Cyril Hendricks Basophils/100 WBC (Bld) 0.4 % Normal 0.2-2.0 [facility] Comment on above: Performed By: #### C BC #### [facility] [address] [place] [address] Dr. Cyril Hendricks EO # 0.1 103/ul Normal 0.0-0.7 [facility] Comment on above: Performed By: #### C BC #### [facility] [address] [place] [address] Dr. Cyril Hendricks Eosinophils/100 WBC (Bld) 0.9 % Normal 0.9-7.0 [facility] Comment on above: Performed By: #### C BC #### [facility] [address] [place] [address] Dr. Cyril Hendricks Erythrocyte distribution width (RBC) [Ratio] 12.3 % Normal 11.0-15.0 [facility] Comment on above: Performed By: #### C BC #### [facility] [address] [place] [address] Dr. Cyril Hendricks Hematocrit (Bld) [Volume fraction] 30.0 % Critically low 36.0-48.0 [facility] Comment on above: Performed By: #### C BC #### [facility] [address] [address] [address] Cyril Hendricks Hemoglobin (Bld) [Mass/Vol] 10.2 g/dL Critically low 12.0-16.0 [facility] Comment on above: Performed By: #### C BC #### [facility] [address] [address] [address] Cyril Hendricks IG # 0.05 10e3/ul Critically high 0.00-0.03 [facility] Comment on above: Performed By: #### C BC #### [facility] [address] [place] [address] Dr. Cyril Hendricks IG % 0.4 % Normal 0.0-0.5 [facility] Comment on above: Performed By: #### C BC #### [facility] [address] [place] [address] Dr. Cyril Hendircks LYMPH # 2.8 103/ul Normal 1.2-3.8 [facility] Comment on above: Performed By: #### C BC #### [facility] [address] [place] [address] Dr. Cyril Hendricks Lymphocytes/100 WBC (Bld) 19.7 % Critically low 20.5-60.0 [facility] Comment on above: Performed By: #### C BC #### [facility] [address] [place] [address] Dr. Cyril Hendricks MANUAL DIFF REQ NO Normal [facility] Comment on above: Performed By: #### C BC #### [facility] [address] [place] [address] Dr. Cyril Hendricks MCH (RBC) [Entitic mass] 30.6 pg Normal 26.7-34.0 [facility] Comment on above: Performed By: #### C BC #### [facility] [address] [place] [address] Dr. Cyril Hendricks MCHC (RBC) [Mass/Vol] 34.0 g/dL Normal 29.9-35.2 [facility] Comment on above: Performed By: #### C BC #### [facility] [address] [address] [address] Cyril Hendricks MCV (RBC) [Entitic vol] 90.1 fL Normal 81.0-99.0 [facility] Comment on above: Performed By: #### C BC #### [facility] [address] [address] [address] Cyril Hendricks MONO # 0.8 103/ul Normal 0.3-0.8 [facility] Comment on above: Performed By: #### C BC #### [facility] [address] [address] [address] Cyril Hendricks Monocytes/100 WBC (Bld) 5.9 % Normal 1.7-12.0 [facility] Comment on above: Performed By: #### C BC #### [facility] [address] [place] [address] Dr. Cyril Hendricks NEUT # 10.3 103/ul Critically high 1.4-6.5 [facility] Comment on above: Performed By: #### C BC #### [facility] [address] [place] [address] Dr. Cyril Hendricks Neutrophils/100 WBC (Bld) 72.7 % Normal 43.0-75.0 [facility] Comment on above: Performed By: #### C BC #### [facility] [address] [place] [address] Dr. Cyril Hendricks Platelet mean volume (Bld) [Entitic vol] 9.8 fL Normal 9.5-13.5 [facility] Comment on above: Performed By: #### C BC #### [facility] [address] [place] [address] Dr. Cyril Hendricks PLT 207 103/ul Normal 150-450 [facility] Comment on above: Performed By: #### C BC #### [facility] [address] [place] [address] Dr. Cyril Hendricks RBC 3.33 106/ul Critically low 4.20-5.40 [facility] Comment on above: Performed By: #### C BC #### [facility] [address] [place] [address] Dr. Cyril Hendricks WBC 14.2 103/ul Critically high 4.0-11.0 [facility] Comment on above: Performed By: #### C BC #### [facility] [address] [place] [address] Dr. Cyril Hendricks CBC AUTO DIFFon 01-07-2022 BASO # 0.1 103/ul Normal 0.0-0.1 [facility] Comment on above: Performed By: #### U MICRO, UACSIND #### [facility] [address] [place] [address] Dr. Cyril Hendricks Basophils/100 WBC (Bld) 0.5 % Normal 0.2-2.0 [facility] Comment on above: Performed By: #### U MICRO, UACSIND #### [facility] [address] [place] [address] Dr. Cyril Hendricks EO # 0.1 103/ul Normal 0.0-0.7 [facility] Comment on above: Performed By: #### U MICRO, UACSIND #### [facility] [address] [place] [address] Dr. Cyril Hendricks Eosinophils/100 WBC (Bld) 0.9 % Normal 0.9-7.0 [facility] Comment on above: Performed By: #### U MICRO, UACSIND #### [facility] [address] [place] [address] Dr. Cyril Hendricks Erythrocyte distribution width (RBC) [Ratio] 12.4 % Normal 11.0-15.0 [facility] Comment on above: Performed By: #### U MICRO, UACSIND #### [facility] [address] [place] [address] Dr. Cyril Hendricks Hematocrit (Bld) [Volume fraction] 34.3 % Critically low 36.0-48.0 [facility] Comment on above: Performed By: #### U MICRO, UACSIND #### [facility] [address] [place] [address] Dr. Cyril Hendricks Hemoglobin (Bld) [Mass/Vol] 11.6 g/dL Critically low 12.0-16.0 [facility] Comment on above: Performed By: #### U MICRO, UACSIND #### [facility] [address] [place] [address] Dr. Cyril Hendricks IG # 0.06 10e3/ul Critically high 0.00-0.03 [facility] Comment on above: Performed By: #### U MICRO, UACSIND #### [facility] [address] [place] [address] Dr. Cyril Hendricks IG % 0.4 % Normal 0.0-0.5 [facility] Comment on above: Performed By: #### U MICRO, UACSIND #### [facility] [address] [place] [address] Dr. Cyril Hendricks LYMPH # 3.1 103/ul Normal 1.2-3.8 [facility] Comment on above: Performed By: #### U MICRO, UACSIND #### [facility] [address] [place] [address] Dr. Cyril Hendricks Lymphocytes/100 WBC (Bld) 20.4 % Critically low 20.5-60.0 [facility] Comment on above: Performed By: #### U MICRO, UACSIND #### [facility] [address] [place] [address] Dr. Cyril Hendricks MANUAL DIFF REQ NO Normal [facility] Comment on above: Performed By: #### U MICRO, UACSIND #### [facility] [address] [place] [address] Dr. Cyril Hendricks MCH (RBC) [Entitic mass] 30.6 pg Normal 26.7-34.0 [facility] Comment on above: Performed By: #### U MICRO, UACSIND #### [facility] [address] [place] [address] Dr. Cyril Hendricks MCHC (RBC) [Mass/Vol] 33.8 g/dL Normal 29.9-35.2 [facility] Comment on above: Performed By: #### U MICRO, UACSIND #### [facility] [address] [place] [address] Dr. Cyril Hendricks MCV (RBC) [Entitic vol] 90.5 fL Normal 81.0-99.0 [facility] Comment on above: Performed By: #### U MICRO, UACSIND #### [facility] [address] [place] [address] Dr. Cyril Hendricks MONO # 0.9 103/ul Critically high 0.3-0.8 [facility] Comment on above: Performed By: #### U MICRO, UACSIND #### [facility] [address] [place] [address] Dr. Cyril Hendricks Monocytes/100 WBC (Bld) 6.2 % Normal 1.7-12.0 [facility] Comment on above: Performed By: #### U MICRO, UACSIND #### [facility] [address] [place] [address] Dr. Cyril Hendricks NEUT # 10.9 103/ul Critically high 1.4-6.5 [facility] Comment on above: Performed By: #### U MICRO, UACSIND #### [facility] [address] [place] [address] Dr. Cyril Hendricks Neutrophils/100 WBC (Bld) 71.6 % Normal 43.0-75.0 [facility] Comment on above: Performed By: #### U MICRO, UACSIND #### [facility] [address] [place] [address] Dr. Cyril Hendricks Platelet mean volume (Bld) [Entitic vol] 11.1 fL Normal 9.5-13.5 [facility] Comment on above: Performed By: #### U MICRO, UACSIND #### [facility] [address] [place] [address] Dr. Cyril Hendricks PLT 240 103/ul Normal 150-450 [facility] Comment on above: Performed By: #### U MICRO, UACSIND #### [facility] [address] [place] [address] Dr. Cyril Hendricks RBC 3.79 106/ul Critically low 4.20-5.[address] [facility] Comment on above: Performed By: #### U MICRO, UACSIND #### [facility] [address] [address] [address] Cyril Hendricks WBC 15.3 103/ul Critically high 4.0-11.0 [facility] Comment on above: Performed By: #### U MICRO, UACSIND #### [facility] [address] [address] [address] Cyril Hendricks Covid-19 PCR ([facility])on SARS-CoV-2 (COVID-19) RNA ALFREDO+probe Ql (Unsp spec) Not detected Normal NOT DETECTED [facility] Comment on above: Result Comment: When [...] for this test is supported by the [place] of [employer] and Human Service's declaration that [...] used). Performed By: #### H CVPCRR #### [facility] [address] [place] [address] Dr. Cyril Hendricks DRUG SCREEN RAPID (URINE)on 01-07-2022 AMP Negative Normal NEGATIVE [facility] Comment on above: Performed By: #### U MICRO, UACSIND #### [facility] [address] [place] [address] Dr. Cyril Hendricks BAR Negative Normal NEGATIVE [facility] Comment on above: Performed By: #### U MICRO, UACSIND #### [facility] [address] [place] [address] Dr. Cyril Hendricks BUP Negative Normal NEGATIVE [facility] Comment on above: Performed By: #### U MICRO, UACSIND #### [facility] [address] [address] [address] Cyril Hendricks BZO Negative Normal NEGATIVE [facility] Comment on above: Performed By: #### U MICRO, UACSIND #### [facility] [address] [address] [address] Cyril Hendricks DARIN Negative Normal NEGATIVE [facility] Comment on above: Performed By: #### U MICRO, UACSIND #### [facility] [address] [address] [address] Cyril Hendricks CUT-OFFS SEE BELOW Normal [facility] Comment on above: Result Comment: AMP [...] Performed By: #### U MICRO, UACSIND #### [facility] [address] [address] [address] Cyril Hendricks DRUG CUT HEADER DRUG CLASS TEST SYSTEM CUT-OFF CONCENTRATIONS ARE FOLLOWS: Normal [facility] Comment on above: Performed By: #### U MICRO, UACSIND #### [facility] [address] [address] [address] Cyril Hendricks mAMP Negative Normal NEGATIVE [facility] Comment on above: Performed By: #### U MICRO, UACSIND #### [facility] [address] [address] [address] Cyril Hendricks MTD Negative Normal NEGATIVE [facility] Comment on above: Performed By: #### U MICRO, UACSIND #### [facility] [address] [address] [address] Cyril Hendricks OPI Negative Normal NEGATIVE [facility] Comment on above: Performed By: #### U MICRO, UACSIND #### [facility] [address] [place] [address] Dr. Cyril Hendricks OXY Negative Normal NEGATIVE [facility] Comment on above: Performed By: #### U MICRO, UACSIND #### [facility] [address] [place] [address] Dr. Cyril Hendricks PCP Negative Normal NEGATIVE [facility] Comment on above: Performed By: #### U MICRO, UACSIND #### [facility] [address] [place] [address] Dr. Cyril Hendricks PPX Negative Normal NEGATIVE [facility] Comment on above: Performed By: #### U MICRO, UACSIND #### [facility] [address] [place] [address] Dr. Cyril Hendricks TCA Negative Normal NEGATIVE [facility] Comment on above: Performed By: #### U MICRO, UACSIND #### [facility] [address] [place] [address] Dr. Cyril Hendricks THC Negative Normal NEGATIVE [facility] Comment on above: Performed By: #### U MICRO, UACSIND #### [facility] [address] [place] [address] Dr. Cyril Hendricks TYPE AND SCREENon 01-07-2022 TYPE AND SCREEN Negative Normal [facility] Comment on above: Performed By: #### H CVPCRR #### [facility] [address] [place] [address] Dr. Cyril Hendricks CULTURE URINEon 12-29-2021 CULTURE URINE Culture Observations: NO GROWTH. Normal [facility] Comment on above: Performed By: #### U RCX #### [facility] [address] [place] [address] Dr. Cyril Hendricks UA (CLEAN/CATCH) ELECTRICIAN SUBSTATION/MICRO I F IND.on 12-29-2021 Bilirubin Ql (U) Negative Normal NEGATIVE [facility] Comment on above: Performed By: #### U MICRO, UACSIND #### [facility] [address] [address] [address] Cyril Hendricks Clarity (U) SL CLOUDY Abnormal CLEAR [facility] Comment on above: Performed By: #### U MICRO, UACSIND #### [facility] [address] [place] [address] Dr. Cyril Hendricks Color (U) LT. YELLOW Normal YELLOW [facility] Comment on above: Performed By: #### U MICRO, UACSIND #### [facility] [address] [address] [address] Cyril Hendricks Glucose Ql (U) Negative Normal NEGATIVE [facility] Comment on above: Performed By: #### U MICRO, UACSIND #### [facility] [address] [place] [address] Dr. Cyril Hendricks Hemoglobin Ql (U) Negative Normal NEGATIVE [facility] Comment on above: Performed By: #### U MICRO, UACSIND #### [facility] [address] [place] [address] Dr. Cyril Hendricks Ketones Ql (U) Negative Normal NEGATIVE [facility] Comment on above: Performed By: #### U MICRO, UACSIND #### [facility] [address] [place] [address] Dr. Cyril Hendricks LEUKOCYTES LARGE Abnormal NEGATIVE [facility] Comment on above: Performed By: #### U MICRO, UACSIND #### [facility] [address] [place] [address] Dr. Cyril Hendricks Nitrite Ql (U) Negative Normal NEGATIVE [facility] Comment on above: Performed By: #### U MICRO, UACSIND #### [facility] [address] [place] [address] Dr. Cyril Hendricks pH (U) 6.5 [pH] Normal 5-9 [facility] Comment on above: Performed By: #### U MICRO, UACSIND #### [facility] [address] [place] [address] Dr. Cyril Hendricks SPEC GRAVITY 1.010 Normal 1.005-<=1.02 5 [facility] Comment on above: Performed By: #### U MICRO, UACSIND #### [facility] [address] [address] [address] Cyril Hendricks UA PROTEIN Negative Normal NEGATIVE/ TRACE [facility] Comment on above: Performed By: #### U MICRO, UACSIND #### [facility] [address] [address] [address] Cyril Hendricks UR MICRO IND INDICATED Normal [facility] Comment on above: Performed By: #### U MICRO, UACSIND #### [facility] [address] [address] [address] Cyril Hendricks Urobilinogen Qn (U) 0.2 {Georgina'U}/dL Normal 0.2 - 1. 0 [facility] Comment on above: Performed By: #### U MICRO, UACSIND #### [facility] [address] [place] [address] Dr. Cyril Hendricks URINE MICROSCOPIC ONLYon BACTERIA SMALL Abnormal NONE SEEN [facility] Comment on above: Performed By: #### U MICRO, UACSIND #### [facility] [address] [place] [address] Dr. Cyril Hendricks Bacteria identified Cx Nom (U) INDICATED Normal [facility] Comment on above: Performed By: #### U MICRO, UACSIND #### [facility] [address] [place] [address] Dr. Cyril Hendricks CAST NONE SEEN Normal NONE SEEN [facility] Comment on above: Performed By: #### U MICRO, UACSIND #### [facility] [address] [address] [address] Cyril Hendricks Crystals LM Nom (Urine sed) NONE SEEN Normal NONE SEEN [facility] Comment on above: Performed By: #### U MICRO, UACSIND #### [facility] [address] [place] [address] Dr. Cyril Hendricks Epithelial cells LM Ql (Urine sed) MANY Abnormal NONE SEEN /RARE [facility] Comment on above: Performed By: #### U MICRO, UACSIND #### [facility] [address] [place] [address] Dr. Cyril Hendricks MUCOUS NONE SEEN Normal NONE SEEN [facility] Comment on above: Performed By: #### U MICRO, UACSIND #### [facility] [address] [place] [address] Dr. Cyril Hendricks RBC 0-2 Normal 0-2 [facility] Comment on above: Performed By: #### U MICRO, UACSIND #### [facility] [address] [place] [address] Dr. Cyril Hendricks WBC 10-20 Abnormal NONE SEEN [facility] Comment on above: Performed By: #### U MICRO, UACSIND #### [facility] [address] [place] [address] Dr. Cyril Hendricks GROUP B STREP CULTUREon 12-07 S. agalactiae Ag Ql (Unsp spec) Culture Observations: NEGATIVE FOR GROUP B STREPTOCOCCUS. Normal [facility] Comment on above: Performed By: #### G BSCX #### [facility] [address] [place] [address] Dr. Cyril Hendricks SSAon 12-13-2021 SSA <0.3 Normal <7.0 [facility] Comment on above: Result Comment: Reference Range: <7.0 Negative 7.0-10.0 Equivocal >10.0 Positive Performed By: #### S SARO, TSH, FT4, SSBLA #### [facility] [address] [place] [id number] Panel Coverer: Homer Hoffman MD SSBon 12-13-2021 SSB <0.3 Normal <7.0 [facility] Comment on above: Result Comment: Reference Range: <7.0 Negative 7.0-10.0 Equivocal >10.0 Positive Performed By: #### S SARO, TSH, FT4, SSBLA #### [facility] [address] [place], [place] [id number] Panel Coverer: Homer Hoffman MD No Panel Informationon 12-12 [facility] T4, Freeon 12-12-2021 Thyroxine, Free 0.98 ng/dL 0.93 - 1.70 ng/dL [facility] TSHon 12-12-2021 TSH Qn 4.35 m[IU]/L [facility] Thyroid Stim. Horm.on 2021 Thyroid Stim. Horm. 4.35 uIU/mL Normal 0.30-5.00 [facility] Comment on above: Performed By: #### S SARO, TSH, FT4, SSBLA #### [facility] [place], [place] [id number] Panel Coverer: Homer Hoffman MD Thyroxine, Freeon 12-12-2021 Thyroxine, Free 0.98 ng/dL Normal 0.93-1.70 [facility] Comment on above: Performed By: #### S SARO, TSH, FT4, SSBLA #### [facility] [place], [place] [id number] Panel Coverer: Homer Hoffman MD US PREG BIOPHY W [...] by: SOFIA KABA Date: 2021-11-27 13:55 Normal [facility] COVID + FLU Quick Testingon 11-13-2021 SARS-CoV-2 (COVID-19) RNA ALFREDO+probe Ql (Unsp spec) Negative [employer] Other COVID + FLU Quick [employer] Negative [employer] Other GLUCOSE - 1HRon 10-23-2021 Glucose [Mass/Vol] 83 mg/dL Normal 74-106 [facility] Comment on above: Performed By: #### G LU1HR #### [facility] [address] [place] [address] Dr. Cyril Hendricks CHLAMYDIA/GONOCOCCUS ALFREDO (SW AB/URINE/PAPon 10-05-2021 Chlamydia trachomatis, ALFREDO Negative Normal Negative [facility] Comment on above: Performed By: #### C T/NGNA #### [facility] [address] [place] [address] Dr. Cyril Hendricks Neisseria gonorrhoeae, ALFREDO Negative Normal Negative [facility] Comment on above: Performed By: #### C T/NGNA #### [facility] [address] [place] [address] Dr. Cyril Hendricks VAGINITIS/VAGINOSIS DNA PROB Maurice 10-04-2021 Krista species Positive Abnormal Negative [facility] Comment on above: Performed By: #### H CVPCRR #### [facility] [address] [place] [address] Dr. Cyril Hendricks Gardnerella vaginalis Negative Normal Negative [facility] Comment on above: Performed By: #### H CVPCRR #### [facility] [address] [place] [address] Dr. Cyril Hendricks Trichomonas vaginalis Negative Normal Negative [facility] Comment on above: Performed By: #### H CVPCRR #### [facility] [address] [place] [address] Dr. Cyril Hendricks HEP B SURFACE ANTIGEN SCREEN on 10-03-2021 HBsAg Screen Negative Normal Negative [facility] Comment on above: Performed By: #### H CVPCRR #### [facility] [address] [place] [address] Dr. Cyril Hendricks HEPATITIS C VIRUS AB W/ REFL EX QUANTon 10-03-2021 HCV AB <0.1 Normal 0.0-0.9 [facility] Comment on above: Performed By: #### H CVPCRR #### [facility] [address] [place] [address] Dr. Cyril Hendricks Interpretation: Comment Normal [facility] Comment on above: Result Comment: Nega tive Not infected with HCV, unless recent infection is suspected or other evidence exists to indicate HCV infection. Performed By: #### H CVPCRR #### [facility] [address] [address] [address] Cyril Hendricks HIV 1 AND 2 WITH REFLEXon HIV Screen 4th Generation wRfx Non-Reactive Normal Non Reactive [facility] Comment on above: Result Comment: HIV Negative HIV-1/HIV-2 antibodies and HIV-1 p24 antigen were NOT detected. There is no laboratory evidence of HIV infection. Performed By: #### H IV12 #### [facility] [address] [place] [address] Dr. Cyril Hendricks RPR QUANTon 10-03-2021 Rapid Plasma Reagin, Quant Non-Reactive Normal NonRea<1:1 [facility] Comment on above: Result Comment: Plea se Note: This test does not meet current guidelines for screening and diagnosis of syphilis. This test is intended for following treatment response in patients being treated for syphilis infection. To screen for syphilis infection, a reflex cascade that includes both RPR and a treponema-specific assay should be utilized, such as Treponema pallidum (Syphilis) Screening Frontier (004401) or Rapid Plasma Reagin (RPR) Test With Reflex to Quantitative RPR and Confirmatory Treponema pallidum Antibodies (012177). Performed By: #### U MICRO, UACSIND #### [facility] [address] [place] [address] Dr. Cyril Hendricks RUBELLA AB IGGon 10-03-2021 Rubella Antibodies, IgG <0.90 Critically low Immune > 0.99 [facility] Comment on above: Result Comment: Non- immune <0.90 Equivocal 0.90 - 0.99 Immune >0.99 Performed By: #### U MICRO, UACSIND #### [facility] [address] [place] [address] Dr. Cyril Hendricks CBC AUTO DIFFon 10-02-2021 BASO # 0.1 103/ul Normal 0.0-0.1 [facility] Comment on above: Performed By: #### U MICRO, UACSIND #### [facility] [address] [place] [address] Dr. Cyril Hendricks Basophils/100 WBC (Bld) 0.4 % Normal 0.2-2.0 [facility] Comment on above: Performed By: #### U MICRO, UACSIND #### [facility] [address] [place] [address] Dr. Cyril Hendricks EO # 0.1 103/ul Normal 0.0-0.7 [facility] Comment on above: Performed By: #### U MICRO, UACSIND #### [facility] [address] [place] [address] Dr. Cyril Hendricks Eosinophils/100 WBC (Bld) 1.1 % Normal 0.9-7.0 [facility] Comment on above: Performed By: #### U MICRO, UACSIND #### [facility] [address] [place] [address] Dr. Cyril Hendricks Erythrocyte distribution width (RBC) [Ratio] 13.5 % Normal 11.0-15.0 [facility] Comment on above: Performed By: #### U MICRO, UACSIND #### [facility] [address] [place] [address] Dr. Cyril Hendricks Hematocrit (Bld) [Volume fraction] 34.5 % Critically low 36.0-48.0 [facility] Comment on above: Performed By: #### U MICRO, UACSIND #### [facility] [address] [place] [address] Dr. Cyril Hendricks Hemoglobin (Bld) [Mass/Vol] 12.0 g/dL Normal 12.0-16.0 [facility] Comment on above: Performed By: #### U MICRO, UACSIND #### [facility] [address] [place] [address] Dr. Cyril Hendricks IG # 0.04 10e3/ul Critically high 0.00-0.03 [facility] Comment on above: Performed By: #### U MICRO, UACSIND #### [facility] [address] [place] [address] Dr. Cyril Hendricks IG % 0.3 % Normal 0.0-0.5 [facility] Comment on above: Performed By: #### U MICRO, UACSIND #### [facility] [address] [address] [address] Cyirl Hendricks LYMPH # 2.6 103/ul Normal 1.2-3.8 [facility] Comment on above: Performed By: #### U MICRO, UACSIND #### [facility] [address] [address] [address] Cyril Hendricks Lymphocytes/100 WBC (Bld) 21.3 % Normal 20.5-60.0 [facility] Comment on above: Performed By: #### U MICRO, UACSIND #### [facility] [address] [place] [address] Dr. Cyril Hendricks MANUAL DIFF REQ NO Normal [facility] Comment on above: Performed By: #### U MICRO, UACSIND #### [facility] [address] [place] [address] Dr. Cyril Hendricks MCH (RBC) [Entitic mass] 32.5 pg Normal 26.7-34.0 [facility] Comment on above: Performed By: #### U MICRO, UACSIND #### [facility] [address] [place] [address] Dr. Cyril Hendricks MCHC (RBC) [Mass/Vol] 34.8 g/dL Normal 29.9-35.2 [facility] Comment on above: Performed By: #### U MICRO, UACSIND #### [facility] [address] [place] [address] Dr. Cyril Hendricks MCV (RBC) [Entitic vol] 93.5 fL Normal 81.0-99.0 [facility] Comment on above: Performed By: #### U MICRO, UACSIND #### [facility] [address] [place] [address] Dr. Cyril Hendricks MONO # 0.8 103/ul Normal 0.3-0.8 [facility] Comment on above: Performed By: #### U MICRO, UACSIND #### [facility] [address] [place] [address] Dr. Cyril Hendricks Monocytes/100 WBC (Bld) 6.2 % Normal 1.7-12.0 [facility] Comment on above: Performed By: #### U MICRO, UACSIND #### [facility] [address] [place] [address] Dr. Cyril Hendricks NEUT # 8.6 103/ul Critically high 1.4-6.[address] [facility] Comment on above: Performed By: #### U MICRO, UACSIND #### [facility] [address] [place] [address] Dr. Cyril Hendricks Neutrophils/100 WBC (Bld) 70.7 % Normal 43.0-75.0 [facility] Comment on above: Performed By: #### U MICRO, UACSIND #### [facility] [address] [place] [address] Dr. Cyril Hendricks Platelet mean volume (Bld) [Entitic vol] 9.1 fL Critically low 9.5-13.5 [facility] Comment on above: Performed By: #### U MICRO, UACSIND #### [facility] [address] [place] [address] Dr. Cyril Hendricks PLT 257 103/ul Normal 150-450 [facility] Comment on above: Performed By: #### U MICRO, UACSIND #### [facility] [address] [place] [address] Dr. Cyril Hendricks RBC 3.69 106/ul Critically low 4.20-5.[address] [facility] Comment on above: Performed By: #### U MICRO, UACSIND #### [facility] [address] [place] [address] Dr. Cyril Hendricks WBC 12.2 103/ul Critically high 4.0-11.0 [facility] Comment on above: Performed By: #### U MICRO, UACSIND #### [facility] [address] [place] [address] Dr. Cyril Hendricks CULTURE URINEon 10-02-2021 CULTURE URINE Culture Observations: MODERATE GROWTH OF MIXED GENITAL DRAGAN. NO POTENTIAL PATHOGENS SEEN. Normal [facility] Comment on above: Performed By: #### H CVPCRR #### [facility] [address] [address] [address] Cyril Hendricks GLYCOHEMOGLOBIN A1Con 2021 ADA RECOMMENDATION SEE BELOW Normal [facility] Comment on above: Result Comment: ADA RECOMMENDED LIMIT 4.0 - 6.0 ADA THERAPEUTIC TARGET < 7.0 ACTION SUGGESTED > 7.0 Performed By: #### H CVPCRR #### [facility] [address] [address] [address] Cyril Hendricks Glucose [Mass/Vol] 80 mg/dL Normal [facility] Comment on above: Performed By: #### H CVPCRR #### [facility] [address] [address] [address] Cyril Hendricks HbA1c (Bld) [Mass fraction] 4.4 % Critically low 4.5-6.2 [facility] Comment on above: Performed By: #### H CVPCRR #### [facility] [address] [address] [address] Cyril Hendricks TYPE AND SCREENon 10-02-2021 TYPE AND SCREEN Negative Normal [facility] Comment on above: Performed By: #### H CVPCRR #### [facility] [address] [address] [address] Cyril Hendricks US PREG PLACENTAon 2 [...] SOFIA KABA Date: 2021-10-02 10:47 Normal [facility] US PREG ANATOMY SINGLEon US PREG [...] (44% by ultrasound, 29% by expected) FL/AC: 0.930912 FL/BPD: 0.352504 HC/AC: 1.246273 GESTATIONAL AGE: Age by EDC: 21 weeks, 3 days NOY by EDC: 01/12/2022 Age by current US: 21 weeks, 1 day NOY by current US: 01/14/2022 IMPRESSION: 1. Single live intrauterine with growth detailed above. 2. Posterior, low-lying placenta. Electronically authenticated by: MARS FRANKEL Date: 2021-09-04 16:30 Normal [facility] Vital Signs Date Time Vital Sign Value Performing Clinician Facility 03-29-2024 11:50-0400 Body mass index (BMI) [Ratio] 29.7 kg/m2 [employer] Work Phone: [facility] 03-29-2024 11:50-0400 Body weight 83.46 kg [employer] Work Phone: [facility] 03-29-2024 11:50-0400 Diastolic blood pressure 72 mm[Hg] [employer] Work Phone: [facility] 03-29-2024 11:50-0400 Systolic blood pressure 112 mm[Hg] [employer] Work Phone: [facility] 03-15-2024 12:04-0400 Body mass index (BMI) [Ratio] 29.5 kg/m2 Shabana WHITFIELD Work Phone: [facility] 03-15-2024 12:04-0400 Body weight 82.92 kg Shabana WHITFIELD Work Phone: [facility] 03-15-2024 12:04-0400 Diastolic blood pressure 70 mm[Hg] Shabana WHITFIELD Work Phone: [facility] 03-15-2024 12:04-0400 Systolic blood pressure 120 mm[Hg] Shabana WHITFIELD Work Phone: [facility] 02-03-2024 09:23-0400 Body temperature 97.88 [degF] Siva Eris [facility] 02-03-2024 09:23-0400 Diastolic blood pressure 70 mm[Hg] Siva Eris [facility] 02-03-2024 09:23-0400 Heart rate 85 /min Siva Schulte [facility] 02-03-2024 09:23-0400 Respiratory rate 18 /min Siva Eris [facility] 02-03-2024 09:23-0400 SaO2% (BldA) [Mass fraction] 99 % Siva Eris [facility] 02-03-2024 09:23-0400 Systolic blood pressure 106 mm[Hg] Siva Schulte [facility] 09-23-2023 09:16-0400 Body temperature 98.42 [degF] Wil Chandra [facility] 09-23-2023 09:16-0400 Diastolic blood pressure 68 mm[Hg] Wil Chandra [facility] 09-23-2023 09:16-0400 Heart rate 82 /min Wil Chandra [facility] 09-23-2023 09:16-0400 Respiratory rate 18 /min Wil Chandra [facility] 09-23-2023 09:16-0400 SaO2% (BldA) [Mass fraction] 97 % Wil Chandra [facility] 09-23-2023 09:16-0400 Systolic blood pressure 98 mm[Hg] Wil Chandra [facility] 08-27-2023 12:24-0400 Diastolic blood pressure 61 mm[Hg] [facility] 08-27-2023 12:24-0400 Heart rate 77 /min [facility] 08-27-2023 12:24-0400 Mean blood pressure 72 mm[Hg] [facility] 08-27-2023 12:24-0400 Respiratory rate 16 /min [facility] 08-27-2023 12:24-0400 SaO2% (BldA) [Mass fraction] 97 % [facility] 08-27-2023 12:24-0400 Systolic blood pressure 93 mm[Hg] [facility] 08-27-2023 11:30-0400 Diastolic blood pressure 69 mm[Hg] [facility] 08-27-2023 11:30-0400 Heart rate 74 /min [facility] 08-27-2023 11:30-0400 Mean blood pressure 82 mm[Hg] [facility] 08-27-2023 11:30-0400 Respiratory rate 16 /min [facility] 08-27-2023 11:30-0400 SaO2% (BldA) [Mass fraction] 99 % [facility] 08-27-2023 11:30-0400 Systolic blood pressure 107 mm[Hg] [facility] 08-27-2023 10:30-0400 Diastolic blood pressure 62 mm[Hg] [facility] 08-27-2023 10:30-0400 Heart rate 91 /min [facility] 08-27-2023 10:30-0400 Mean blood pressure 77 mm[Hg] [facility] 08-27-2023 10:30-0400 Respiratory rate 18 /min [facility] 08-27-2023 10:30-0400 SaO2% (BldA) [Mass fraction] 100 % [facility] 08-27-2023 10:30-0400 Systolic blood pressure 107 mm[Hg] [facility] 08-27-2023 09:41-0400 Body temperature 98.6 [degF] [facility] 08-27-2023 09:41-0400 Heart rate 80 /min [facility] 01-04-2023 00:03-0400 Body temperature 98.78 [degF] Siva Schulte [facility] 01-04-2023 00:03-0400 Diastolic blood pressure 54 mm[Hg] Siva Schulte [facility] 01-04-2023 00:03-0400 Heart rate 97 /min Siva Schulte [facility] 01-04-2023 00:03-0400 Mean blood pressure 70 mm[Hg] Siva Schulte [facility] 01-04-2023 00:03-0400 Respiratory rate 18 /min Siva Schulte [facility] 01-04-2023 00:03-0400 SaO2% (BldA) [Mass fraction] 94 % Siva Schulte [facility] 01-04-2023 00:03-0400 Systolic blood pressure 102 mm[Hg] Siva Schulte [facility] 01-03-2023 23:00-0400 Body temperature 100.04 [degF] Siva Eris [facility] 01-03-2023 23:00-0400 Diastolic blood pressure 62 mm[Hg] Siva Eris [facility] 01-03-2023 23:00-0400 Heart rate 100 /min Siva Eris [facility] 01-03-2023 23:00-0400 Mean blood pressure 75 mm[Hg] Siva Eris [facility] 01-03-2023 23:00-0400 Systolic blood pressure 100 mm[Hg] Siva Eris [facility] 01-03-2023 22:42-0400 Body temperature 100.76 [degF] Siva Eris [facility] 01-03-2023 22:42-0400 Diastolic blood pressure 59 mm[Hg] Siva Eris [facility] 01-03-2023 22:42-0400 Heart rate 105 /min Siva Eris [facility] 01-03-2023 22:42-0400 Respiratory rate 20 /min Siva Eris [facility] 01-03-2023 22:42-0400 SaO2% (BldA) [Mass fraction] 99 % Siva Schulte [facility] 01-03-2023 22:42-0400 Systolic blood pressure 96 mm[Hg] Siva Eris [facility] 10-02-2022 21:29-0400 Diastolic blood pressure 72 mm[Hg] PHYSICIAN NO [facility] 10-02-2022 21:29-0400 Heart rate 94 /min PHYSICIAN NO [facility] 10-02-2022 21:29-0400 Respiratory rate 18 /min PHYSICIAN NO [facility] 10-02-2022 21:29-0400 SaO2% (BldA) [Mass fraction] 98 % PHYSICIAN NO [facility] 10-02-2022 21:29-0400 Systolic blood pressure 141 mm[Hg] PHYSICIAN NO [facility] 10-02-2022 17:03-0400 Body height 170.18 cm PHYSICIAN NO [facility] 10-02-2022 17:03-0400 Body temperature 98.3 [degF] PHYSICIAN NO [facility] 10-02-2022 17:03-0400 Body weight 76.4 kg PHYSICIAN NO [facility] 09-25-2022 13:25-0400 Body height 170.18 cm Vite Yuri Other [employer] Other 09-25-2022 13:25-0400 Body mass index (BMI) [Ratio] 26.62 kg/m2 Viet Welch Other [employer] Other 09-25-2022 13:25-0400 Body temperature 98.2 [degF] Viet Welch Other [employer] Other 09-25-2022 13:25-0400 Body weight 77.11 kg Viet Welch Other [employer] Other 09-25-2022 13:25-0400 Diastolic blood pressure 68 mm[Hg] Viet Welch Other [employer] Other 09-25-2022 13:25-0400 Respiratory rate 18 /min Viet Welch Other [employer] Other 09-25-2022 13:25-0400 SaO2% (BldA) [Mass fraction] 98 % Viet Welch Other [employer] Other 09-25-2022 13:25-0400 Systolic blood pressure 107 mm[Hg] Viet Welch Other [facility] Other 09-06-2022 13:54-0400 Diastolic blood pressure 72 mm[Hg] Wil Jollye [facility] 09-06-2022 13:54-0400 Heart rate 60 /min Wil Corazon [facility] 09-06-2022 13:54-0400 Respiratory rate 16 /min Wil Corazon [facility] 09-06-2022 13:54-0400 SaO2% (BldA) [Mass fraction] 100 % Wil Corazon [facility] 09-06-2022 13:54-0400 Systolic blood pressure 103 mm[Hg] Wil Corazon [facility] 09-06-2022 11:41-0400 Diastolic blood pressure 65 mm[Hg] Wil Corazon [facility] 09-06-2022 11:41-0400 Heart rate 58 /min Wil Jollye [facility] 09-06-2022 11:41-0400 Mean blood pressure 77 mm[Hg] Wil Corazon [facility] 09-06-2022 11:41-0400 Respiratory rate 16 /min Wil Corazon [facility] 09-06-2022 11:41-0400 SaO2% (BldA) [Mass fraction] 100 % Wil Corazon [facility] 09-06-2022 11:41-0400 Systolic blood pressure 102 mm[Hg] Wil Corazon [facility] 09-06-2022 10:42-0400 Body temperature 98.24 [degF] Wil Chandra [facility] 09-06-2022 10:42-0400 bodymassindex 1.17 Wil Chandra [facility] Comment on above: Result Comment: ^~:![facility] 09-06-2022 10:42-0400 Diastolic blood pressure 71 mm[Hg] Wil Chandra [facility] 09-06-2022 10:42-0400 Heart rate 73 /min Wil Chandra [facility] 09-06-2022 10:42-0400 Height/Length Percentile 84.89 Wil Chandra [facility] Comment on above: Result Comment: ^~:!Percentile Source -[facility] 09-06-2022 10:42-0400 Height/Length Z-Score 1.03 Wil Chandra [facility] Comment on above: Result Comment: ^~:![employer] [facility] 09-06-2022 10:42-0400 Respiratory rate 16 /min Wil Chandra [facility] 09-06-2022 10:42-0400 SaO2% (BldA) [Mass fraction] 98 % Wil Chandra [facility] 09-06-2022 10:42-0400 Systolic blood pressure 111 mm[Hg] Wil Chandra [facility] 09-06-2022 10:42-0400 weight 1.47 Wil Chandra [facility] Comment on above: Result Comment: ^~:![facility] 09-06-2022 10:42-0400 Weight Percentile 92.90 % Wil Chandra [facility] Comment on above: Result Comment: ^~:!Percentile Source -[facility] 08-14-2022 21:30-0500 Diastolic blood pressure 79 mm[Hg] Bob Llanos [facility] 08-14-2022 21:30-0500 Heart rate 87 /min Bob Llanos [facility] 08-14-2022 21:30-0500 Mean blood pressure 93 mm[Hg] Bob Llanos [facility] 08-14-2022 21:30-0500 Nursing Progress Note Reason Other: pt to US via stretcher at this time. Bob Llanos [facility] 08-14-2022 21:30-0500 Respiratory rate 16 /min Bob Llanos [facility] 08-14-2022 21:30-0500 SaO2% (BldA) [Mass fraction] 100 % Bob Llanos [facility] 08-14-2022 21:30-0500 Systolic blood pressure 120 mm[Hg] Bob Llanos [facility] 08-14-2022 19:20-0500 Body temperature 98.96 [degF] Bob Llanos [facility] 08-14-2022 19:20-0500 bodymassindex 1.17 Bob Llanos [facility] Comment on above: Result Comment: ^~:!ZScore Source -[facility] 08-14-2022 19:20-0500 Diastolic blood pressure 61 mm[Hg] Bob Llanos [facility] 08-14-2022 19:20-0500 Heart rate 98 /min Bob Llanos [facility] 08-14-2022 19:20-0500 Height/Length Percentile 84.91 Bob Llanos [facility] Comment on above: Result Comment: ^~:!Percentile Source -[facility] 08-14-2022 19:20-0500 Height/Length Z-Score 1.03 Bob Llanos [facility] Comment on above: Result Comment: ^~:![facility] 08-14-2022 19:20-0500 Respiratory rate 16 /min Bob Llanos [facility] 08-14-2022 19:20-0500 SaO2% (BldA) [Mass fraction] 99 % Bob Llanos [facility] 08-14-2022 19:20-0500 Systolic blood pressure 114 mm[Hg] Bob Llanos [facility] 08-14-2022 19:20-0500 weight 1.47 Bob Llanos [facility] Comment on above: Result Comment: ^~:![facility] 08-14-2022 19:20-0500 Weight Percentile 92.94 % Bob Llanos [facility] Comment on above: Result Comment: ^~:!Percentile Source -[facility] 06-24-2022 13:30-0500 Body height 170.18 cm Viet Welch Other [employer] Other 06-24-2022 13:30-0500 Body mass index (BMI) [Ratio] 26.62 kg/m2 Viet Welch Other [employer] Other 06-24-2022 13:30-0500 Body temperature 97.8 [degF] Viet Welch Other [employer] Other 06-24-2022 13:30-0500 Body weight 77.11 kg Viet Welch Other [employer] Other 06-24-2022 13:30-0500 Diastolic blood pressure 63 mm[Hg] Viet Welch Other [employer] Other 06-24-2022 13:30-0500 Respiratory rate 18 /min Viet Welch Other [employer] Other 06-24-2022 13:30-0500 SaO2% (BldA) [Mass fraction] 98 % Viet Welch Other [employer] Other 06-24-2022 13:30-0500 Systolic blood pressure 97 mm[Hg] Viet Welch Other [employer] Other 11-13-2021 14:05-0400 Body height 170.18 cm Michael Oneil Other [employer] Other 11-13-2021 14:05-0400 Body mass index (BMI) [Ratio] 26.62 kg/m2 Michael Oneil Other [employer] Other 11-13-2021 14:05-0400 Body temperature 98.4 [degF] Michael Oneil Other [employer] Other 11-13-2021 14:05-0400 Body weight 77.11 kg Michael Oneil Other [employer] Other 11-13-2021 14:05-0400 Respiratory rate 18 /min Michael Oneil Other [employer] Other 11-13-2021 14:05-0400 SaO2% (BldA) [Mass fraction] 98 % Michael Oneil Other [employer] Other 11-06-2021 15:45-0400 Body height Kendra Witt Other [employer] Other 11-06-2021 15:45-0400 Body mass index (BMI) [Ratio] 26.62 kg/m2 Kendra Witt Other [employer] Other 11-06-2021 15:45-0400 Body weight 77.11 kg Kendra Witt Other [employer] Other 11-06-2021 15:45-0400 Respiratory rate 20 /min Kendra Witt Other [employer] Other 11-06-2021 15:45-0400 SaO2% (BldA) [Mass fraction] 98 % Kendra Witt Other [employer] Other Encounters Encounter Date Encounter Type Care Provider Facility Start: 03-29-2024 End: 03-29-2024 Bamboo flowsheet Juvenal Maurilio DO Work Phone: [facility] Start: 03-29-2024 End: 03-29-2024 Bamboo flowsheet Juvenal Maurilio DO Work Phone: [facility] Start: 03-29-2024 End: 03-29-2024 ambulatory JUVENAL MAURILIO Not Available Start: 03-29-2024 End: 03-29-2024 Office outpatient visit 15 minutes Juvenal Maurilio DO Work Phone: [facility] Comment on above: Third trimester preg chris; 37 weeks gestation of Start: 03-22-2024 End: 03-22-2024 Bamboo flowsheet Juvenal Maurilio DO Work Phone: [facility] Start: 03-22-2024 End: 03-22-2024 Bamboo flowsheet Juvenal Maurilio DO Work Phone: [facility] Start: 03-22-2024 End: 03-22-2024 ambulatory JUVENAL MAURILIO Not Available Start: 03-22-2024 End: 03-22-2024 Office outpatient visit 15 minutes Juvenal Maurilio DO Work Phone: [facility] Comment on above: 36 weeks gestation o f ; Third trimester ; Gastroesophageal reflux in Start: 03-15-2024 End: 03-15-2024 Bamboo flowsheet Shabana WHITFIELD Work Phone: [facility] Start: 03-15-2024 End: 03-15-2024 Bamboo flowsheet Shabana Mercedes PA Work Phone: [facility] Start: 03-15-2024 End: 03-15-2024 ambulatory SHABANA ELLIS Not Available Start: 03-15-2024 End: 03-15-2024 Office outpatient visit 15 minutes Shabana Mercedes PA Work Phone: [facility] Comment on above: 35 weeks gestation o f ; Third trimester Start: 03-01-2024 End: 03-01-2024 ambulatory JUVENAL MAURILIO Not Available Start: 02-16-2024 End: 02-16-2024 ambulatory SHABANA ELLIS Not Available Start: 02-03-2024 End: 02-03-2024 Emergency department patient visit Siva Schulte [facility] Start: 01-26-2024 End: 01-26-2024 ambulatory JUVENAL MAURILIO Not Available Start: 12-29-2023 End: 12-29-2023 ambulatory SHABANA ELLIS Not Available Start: 12-22-2023 End: 12-22-2023 ambulatory JUVENAL R MAURILIO [facility] Start: 12-01-2023 End: 12-01-2023 ambulatory JUVENAL MAURILIO Not Available Start: 11-10-2023 End: 11-10-2023 ambulatory JUVENAL R MAURILIO [facility] Start: 10-27-2023 End: 10-27-2023 ambulatory SHABANA ELLIS Not Available Start: 09-29-2023 End: 09-29-2023 ambulatory JUVENAL MAURILIO Not Available Start: 09-23-2023 End: 09-23-2023 Emergency department patient visit Wil Chandra [facility] Start: 09-04-2023 End: 09-04-2023 ambulatory JUVENAL THORPE Not Available Start: 08-27-2023 End: 08-27-2023 Emergency department patient visit Emily Harper [facility] Start: 08-18-2023 End: 08-18-2023 ambulatory SELAM ELSA [place] [place]: 01-03-2023 End: 01-04-2023 Emergency department patient visit Siva Schulte [facility] Start: 12-12-2022 End: 12-12-2022 ambulatory Kenneth Lina Other [employer] Other Start: 12-12-2022 Telephone encounter Kenneth Lian [facility] Start: 10-02-2022 End: 10-02-2022 Emergency department patient visit Jose Silverman Facility:[facility] Start: 10-02-2022 End: 10-02-2022 Emergency department patient visit PHYSICIAN SJ LERNER [facility] Work Phone: Start: 09-25-2022 End: 09-25-2022 ambulatory Viet [place] Other [facility] Other Start: 09-25-2022 Office outpatient visit 15 minutes Viet Welch [facility] [address] Start: 09-06-2022 End: 09-06-2022 Emergency department patient visit Wil Chandra [facility] Start: 08-14-2022 End: 08-14-2022 Emergency department patient visit Bob Llanos [facility] Start: 07-11-2022 End: 07-11-2022 ambulatory ROSEANN MERCEDES Facility:[facility] Start: 06-24-2022 End: 06-24-2022 ambulatory Viet Welch Other [employer] Other Start: 06-24-2022 Office outpatient visit 15 minutes Viet Welch [facility] Start: 01-11-2022 End: 01-11-[address] NIEVES LISTED REQUEST Facility:[facility] Start: 01-07-2022 End: 01-09-2022 Evaluation and management of inpatient DR RENATA GEORGES Facility:[facility] Start: 12-29-2021 End: 12-29-[address] JUVENAL THORPE Facility:[facility] Start: 12-19-2021 End: 12-19-[address] JUVENAL THORPE Facility:[facility] Start: 12-12-2021 End: 12-13-[address] [facility] Start: 12-12-2021 End: 12-12-2021 Subsequent hospital visit by physician SUSI De La Paz Start: 11-27-2021 End: 11-27-[address] SOFIA KABA Facility:[facility] Start: 11-13-2021 End: 11-13-2021 ambulatory Michael Oneil Other [employer] Other Start: 11-13-2021 Office outpatient visit 15 minutes Michael Oneil [facility] Start: 11-06-2021 End: 11-06-2021 ambulatory Kendra Witt Other [employer] Other Start: 11-06-2021 Office outpatient visit 25 minutes Kendra Witt [facility] Start: 10-23-2021 End: 10-24-[address] JUVENAL THORPE Facility:[facility] Start: 10-02-2021 End: 10-03-[address] SOFIA KABA Facility:[facility] Start: 09-04-2021 End: 09-05-[address] RENATA GEORGES Facility:[facility] Procedures Date Procedure Procedure Detail Performing Clinician Start: 03-29-2024 Urnls dip stick/tabl et rgnt non-auto w/o micrscp Juvenal Maurilio DO Work Phone: Start: 03-22-2024 Urnls dip stick/tabl et rgnt non-auto w/o micrscp Juvenal Maurilio DO Work Phone: Start: 03-15-2024 Urnls dip [...] AM EDT Routine [facility] [address] [place] [address] Juvenal Thorpe, DO [address] [address] [facility] Start: 03-22-2024 End: 03-22-2025 Strep B DNA probe, amplification Strep B DNA probe, amplification Lab Routine Third trimester Expected: 03/22/2024 (Approximate), Expires: 03/22/2025 [facility] Work Phone: Comment on above: Expected: 03/22/2024 (Approximate), Expires: 03/22/2025 Start: 03-22-2024 End: 03-22-2024 Patient encounter procedure 03/22/2024 11:10 AM EDT Routine [facility] [address] [place] [id number] Juvenal Thorpe, DO [address] [address] [facility] Start: 10-02-2022 Bacteria identified in Urine by Culture Urine Culture [facility] Start: 02-07-2022 Influenza vaccination Flu vaccine (# 1) 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 Start: 01-09-2022 End: 01-09-2022 Patient encounter procedure 01/09/2022 Routine Perinatology [facility] Start: 01-02-2022 End: 01-02-2022 Patient encounter procedure 01/02/2022 Routine Perinatology [facility] Start: 12-26-2021 End: 12-26-2021 Patient encounter procedure 12/26/2021 Routine Perinatology [facility] Start: 12-20-2021 End: 12-20-2021 Patient encounter procedure 12/20/2021 Routine Perinatology [facility] Start: 2021 DTaP/Tdap/Td vaccine (1 - Tdap) DTaP/Tdap/Td vaccine (1 - Tdap) 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 Start: 2020 Hepatitis C screening Hepatitis C sc reen 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 Start: 2018 Screening for Chlamy nazanin trachomatis Chlamydia screen 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 Start: 2017 HIV screening HIV screen [facility] 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 [employer] Start: 2014 Depression Monitoring Depression Mon itotameka 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 Start: 2013 HPV vaccine (1 - 2-d ose series) HPV vaccine (1 - 2-dose series) 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 Start: 09-16-2007 COVID-19 Vaccine (1) COVID-19 Vaccin e (1) 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 Start: 09-16-2003 Varicella vaccine (1 of 2 - 2-dose childhood series) Varicella vaccine (1 of 2 - 2-dose childhood series) [employer] Patient Education Depression, Adult ED [facility] Work Phone: Patient referral [facility] Work Phone: End: 12-12-2021 Sjogrens syndrome-A extractable nuclear antibody [employer] Work Phone: Comment on above: Once for 1 Occurrenc es starting 12/12/2021 until 12/12/2021 End: 12-12-2021 Sjogrens syndrome-B extractable nuclear antibody [employer] Work Phone: Comment on above: Once for 1 Occurrenc es starting 12/12/2021 until 12/12/2021 Immunizations Immunization Date Immunization Notes Care Provider Simona galarza NEGATED: Highlighted row has not occurred!11-05-2019 influenza, injectable, quadrivalent, contains preservative Kendra Witt Other [employer] Other NEGATED: Highlighted row has not occurred!04-10-2019 influenza virus vaccine, unspecified formulation Bob Viet [facility] Payers Date Payer Category Payer Medicaid [employer] [place] [id number] 2023-Present [address] [place] [address] [id number] 2023 [facility] Health [facility] [id number] 2022 Self-pay [id number] [id number] 2002 Unknown [id number] 2.16.840.1.313714.3.579.2. 175 2002 Unknown [id number] 2.16.840.1.705650.3.579.2. 593 2002 Unknown [id number] 2.16.840.1.678013.3.579.2. 593 2002 Unknown [id number] 2.16.840.1.076503.3.579.2. 593 2002 Unknown [id number] 2.16.840.1.376035.3.579.2. 593 2002 Unknown [id number] 2.16.840.1.867845.3.579.2. 593 2002 Unknown [id number] 2.16.840.1.336814.3.579.2. 593 2002 Unknown [id number] 2.16.840.1.821806.3.579.2. 593 2002 Unknown [id number] 2.16.840.1.609446.3.579.2. 593 2002 Unknown [id number] 2.16.840.1.357470.3.579.2. 593 2002 Unknown [id number] 2.16.840.1.612192.3.579.2. 593 2002 Unknown [id number] 2.16.840.1.708990.3.579.2. 593 2002 Unknown [id number] 2.16.840.1.385400.3.579.2. 1286 2002 Unknown [id number] 2.16.840.1.400374.3.579.2. 1286 2002 Unknown [id number] 2.16.840.1.593967.3.579.2. 1286 2002 Unknown [id number] 2.16.840.1.721577.3.579.2. 727 2002 Unknown [id number] 2.16.840.1.660442.3.579.2. 727 2002 Unknown [id number] 2.16.840.1.238754.3.579.2. 727 2002 Unknown [id number] 2.16.840.1.950131.3.579.2. 727 2002 Unknown [id number] 2.16.840.1.075389.3.579.2. 727 2002 Unknown [id number] 2.16.840.1.777165.3.579.2. 1258 2002 Unknown [id number] 2.16.840.1.282821.3.579.2. 1258 2002 Unknown [id number] 2.16.840.1.082940.3.579.2. 1258 2002 Unknown [id number] 2.16.840.1.915077.3.579.2. 1258 2002 Unknown [id number] 2.16.840.1.881776.3.579.2. 1258 2002 Unknown [id number] 2.16.840.1.618599.3.579.2. 1258 2002 Unknown [id number] 2.16.840.1.316515.3.579.2. 1258 2002 Unknown [id number] 2.16.840.1.536385.3.579.2. 1258 2002 Unknown [id number] 2.16.840.1.244195.3.579.2. 1258 2002 Unknown [id number] 2.16.840.1.415358.3.579.2. 1259 2002 Unknown [id number] 2.16.840.1.068505.3.579.2. 1259 1959 Unknown [id number] 2.16.840.1.198671.19 1959 Unknown [id number] Unknown [id number] 2.16.840.1.747657.3.579.2. 531 Social History Date Type Detail Facility Sex Assigned At [facility] Start: 11-28-2021 Tobacco smoking status NHIS Never smoked tobacco [facility] Phone: Start: 11-28-2021 Tobacco use and exposure Smokeless tobacco non-user [facility] Phone: Start: 12-12-2021 Alcohol intake Ex-drinker (finding) [facility] Phone: Start: 12-12-2021 Tobacco Comment no longer vapes [facility] Phone: Start: 04-21-2021 [email or web address] Phone: Start: 2002 Sex Assigned At Not on file [facility] [employer] Phone: Tobacco Current vaping o r e-cigarette use Smokeless Tobacco Use:. Vaping [facility] Tobacco smoking status No Smoking Status Entered [facility] Start: 10-02-2022 Tobacco smoking status NHIS Smoker (finding) [facility] Start: 2002 Sex Assigned At Female F [facility] Tobacco smoking status NHIS Tobacco smoking consumption unknown [facility] Start: 01-17-2023 Gender identity Identifies as female gender (finding) [facility] Goals Date Patient Goal Desired Activity /State Personal health goal Functional Status Date Assessment Result Facility 02-03-2024 Functional Status N/A [facility] 09-23-2023 Functional Status N/A [facility] 08-27-2023 Functional Status N/A [facility] 01-03-2023 Functional Status N/A [facility] 09-06-2022 Functional Status N/A [facility] 08-14-2022 Functional Status N/A [facility] Clinical Notes 11-06-2021 to 03-29-2024 Candice Shalini, IRRIGATION EQUIPMENT INSTALLER - 03/29/2024 11:20 AM EDTSalexei Loya, IRRIGATION EQUIPMENT INSTALLER - 03/22/2024 11:20 AM ROSEANN Smith - 03/15/2024 11:50 AM EDT Note Date & Type Note Facility 03-29-2024 History of Presen t illness Narrative Reason [...] History HISTORY PAST MEDICAL HISTORY SOCIAL HISTORY No past medical history on file. Social History Tobacco Use Smoking status: Not [...] nursing note reviewed. Exam conducted with a surgical lead present. Vitals: Estimated body mass index is 29.7 kg/m as calculated from the following: Height as of 09/11/22: 5' 6 . Weight as of this encounter: 184 lb. BP: 112/72 Patient's last menstrual period was 07/10/2023. ASSESSMENT & PLAN ICD-10-CM 1. Third trimester Z34.93 POCT urinalysis dipstick manually resulted 2. 37 weeks gestation of Z3A.37 Patient presents today for a routine obstetrics appointment. Patient is currently 37w4d with a Estimated Date of Delivery: 04/15/24. Patient devan have IOL on 04/05/24 @0500, consents signed today and patient to schedule for 6 week PP appointment prior to leaving office today. Provider called [facility] and placed patient in the books. Documented by Candice Loya LPN on behalf of: Juvenal Thorpe DO documented in this encounter [facility] 03-22-2024 History of Presen t illness Narrative [...] nursing note reviewed. Exam conducted with a surgical lead present. Vitals: Estimated body mass index is [...] have IOL on 04/05/24 and nursing called [facility] and spoke with nursing and placed [...] Juvenal Thorpe DO documented in this encounter [facility] 03-15-2024 History of Presen t illness [...] nursing note reviewed. Exam conducted with a surgical lead present. Vitals: Estimated body mass index is [...] of: ROSEANN Smith documented in this encounter [facility] 02-03-2024 Evaluation + Plan note Extrac ruby from: Title:ED Note Author:Kiki CHUNG, Duc Torres te:02/03/24 Sore throat (J02.9: Acute ph aryngitis, unspecified) Viral URI (J06.9: Acute upper respiratory infection, unspecified) Orders: Group A Strep by PCR Rapid Strep w/rfx Diagnostic Tests Pending * Group A Strep by PCR 02/03/24 [facility] 08-27-2024 Hospital Discharge instructions Patient Education [...] medicines to help relieve symptoms, such as: Mirg-hmv-pbppwhi cold medicines. Cough suppressants. Coughing is a [...] and other clear broths. General instructions Take nxbd-yta-svfvehm and prescription medicines only as told by [...] and water are not available, use hand german professor. Avoid touching your mouth, face, eyes, or [...] provider. Document Revised: 12/26/2021 Document Reviewed: 12/26/2021 [employer] Patient Education 2022 [employer]. Follow Up Care 02/03/2024 09:23:13 With:Juvenal THROPE Address: [address] [place] [address]- Business (1) When:02/06/2024 11:12:27 With:SELAM ELSA Address: [place] [address]- Business (1) When:02/06/2024 11:12:21 [facility] 08-27-2024 NoteED Patient Education Note Infectious [...] to help relieve symptoms, such as: ? Npyk-rak-yujusjt cold medicines. ? Cough suppressants. Coughing is [...] other clear broths. General instructions ? Take umkp-mfb-joolqdu and prescription medicines only as told by [...] soap and water are not available,use hand german professor. ? Avoid touching your mouth, face, eyes, [...] Mood. These symptoms m (more content not included)...[facility] 09-23-2023 Hospital Discharge instructions Patient Education 09/23/2023 [...] provider. Document Revised: 02/19/2021 Document Reviewed: 02/19/2021 [employer] Patient Education 2022 [employer]. Follow Up Care 09/23/2023 09:11:45 With:Juvenal THORPE Address: [address] [place] [address]- Business (1) When:09/26/2023 11:44:07 [facility]03-20-2024 Hospital Discharge instructions Patient Education 08/27/2023 [...] provider. Document Revised: 01/09/2022 Document Reviewed: 01/09/2022 [employer] Patient Education 2022 [employer]. 08/27/2023 12:34:16 Urinary Tract Infection, Adult, Wqdi-aj-Qidh Urinary Tract Infection, Adult A urinary tract [...] Follow these instructions at home: Medicines Take qief-erx-kjbpcov and prescription medicines only as told by [...] provider. Document Revised: 01/05/2021 Document Reviewed: 01/05/2021 [employer] Patient Education 2022 [employer]. 08/27/2023 12:34:16 Subchorionic Hematoma Subchorionic Hematoma A [...] provider. Document Revised: 02/19/2021 Document Reviewed: 02/19/2021 [employer] Patient Education 2022 [employer]. Follow Up Care 08/27/2023 09:39:16 With:Juvenal THORPE Address: [facility] [address] , [place] [address]- Business (1) When:08/30/2023 12:05:10 With:SELAM HUNTER Address: [place] [address]- Business (1) When:Within 3 Day(s) [facility]03-20-2024 Evaluation + Plan noteExtracted from: Title:ED [...] day(s), # 28 cap(s), Refills(s) 0, Pharmacy: [facility], 170, cm, 08/27/23 9:49:00 EDT, Height/Length Dosing, 78.7, kg, 08/27/23 9:49:00 EDT, Weight Dosing ABO/Rh Basic Metabolic Panel Beta hCG Quantitative CBC w/ Auto Diff eGFR Extra Blue Tube Extra SST Tube UA with Cult Rflx Urine Culture US 1st Trimester US Transvaginal Diagnostic Tests Pending * Urine Culture 08/27/23 [facility]07-29-2023 Hospital Discharge instructions Patient Education 01/04/2023 00:13:01 Pharyngitis, Nfqo-jz-Klyn Pharyngitis Pharyngitis is a sore throat (pharynx). [...] Follow these instructions at home: Medicines Take lnfv-nbu-jqrufca and prescription medicines only as told by [...] and water are not available, use hand german professor. Do not touch your eyes, nose, or [...] provider. Document Revised: 08/22/2021 Document Reviewed: 08/22/2021 [employer] Patient Education 2022 [employer]. Follow Up Care 01/03/2023 22:32:55 With:Thony Carl Address: [address] [place] [address] [place] [address] Business (1) When:01/06/2023 Comments:Follow-up with your primary care provider in 3 to 5 days. If symptoms worsen, do not improve, or new symptoms arise please report back to emergency department for further evaluation. [facility]07-28-2023 Evaluation + Plan noteExtracted from: Title:ED [...] q12hr, # 20 cap(s), Refills(s) 0, Pharmacy: [facility], 170, cm, 01/03/23 22:44:00 EDT, Height/Length Dosing, 75.3, kg, 01/03/23 22:44:00 EDT, Weight Dosing ondansetron, 4 mg = 1 tab(s), Oral, q8hr, PRN Nausea/Vomiting, # 12 tab(s), Refills(s) 0, Pharmacy: [facility], 170, cm, 01/03/23 22:44:00 EDT, Height/Length Dosing, 75.3, kg, 01/03/23 22:44:00 EDT, Weight Dosing ondansetron, 12 mg = 3 tab(s), Tab-Dis, Oral, Once, Stop date 01/03/23 23:45:00 EDT, STAT, Start date 01/03/23 23:45:00 EDT, 01/03/23 23:45:00 EDT Automated Diff Basic Metabolic Panel Beta hCG Quantitative CBC w/ Auto Diff eGFR Hepatic Function Panel Lipase Level [facility]04-19-2023 Evaluation note* Encounter Date Diagnosis Assessment [...] of symptoms occur by end of treatment. [employer] Other 03-31-2023 Hospital Discharge instructions Patient Education [...] Follow these instructions at home: Medicines Take qwcv-xyd-bfbisce and prescription medicines only as told by [...] important. Where to find more information [employer]: www.acog.org [...] Document Reviewed: 07/01/2017 Else[employer] Patient Education 2020 [employer]. Follow Up Care 09/06/2022 10:42:16 With:Juvenal THORPE Address: [address] [place] [address]- Business (1) When:09/09/2022 13:46:05 [facility]03-09-2023 Hospital Discharge instructions Patient Education 08/14/2022 22:12:46 Abdominal Pain During , Hbfo-qe-Svkg Abdominal Pain During Belly (abdominal) pain is [...] keep your pee (urine) pale yellow. Take uacd-psg-dredohg and prescription medicines only as told by [...] 05/14/2010 Document Revised: 09/13/2019 Document Reviewed: 08/28/2017 [employer] Patient Education 2020 [employer] 08/14/2022 22:12:46 Abdominal Pain, Adult, Lbfm-ya-Orxl Abdominal Pain, Adult Many things can cause belly (abdominal) pain. Most times, belly pain is not dangerous. Many cases of belly pain can be watched and treated at home. Sometimes, though, belly pain is serious. Your doctor will try to find the cause of your belly pain. Follow these instructions at home: Medicines Take kqag-dzs-mvlkcbc and prescription medicines only as told by [...] your belly pain for any changes. Take btcw-idy-duznewl and prescription medicines only as told by [...] 10/04/2019 Document Reviewed: 10/04/2019 Else[employer] Patient Education 2019 [employer] Follow Up Care 08/14/2022 18:41:38 With:Juvenal THORPE Address: [address] [place] [address]- Business (1) When:08/17/2022 Comments:Follow-up with Dr. Thorpe for further evaluation of your . With:Juventino Carbajal Address: [address] [place] [address]- When:08/17/2022 Comments:Follow-up with your primary care provider in 3 to 5 days. If symptoms worsen, do not improve, or new symptoms arise please report back to emergency department for further evaluation. [facility]01-16-2023 Evaluation note* Encounter Date Diagnosis Assessment [...] return precautions. Jun, Cough (ICD-10 - R05.9) [employer] Other 06-07-2022 Evaluation note* Encounter Date Diagnosis [...] Pt understood and agreed to tx plan. [employer] Other 05-31-2022 Evaluation note* Encounter Date Diagnosis [...] condition October, Sore throat (ICD-10 - J02.9) [employer] Other Evaluation + Plan note No data available for this section [facility] information available [facility] Work Phone: Evaluation noteNo InformationNort Store[employer] Other Evaluation note* Diagnosis 35 weeks gestation of Third trimester state, incidental [facility] Diagnosis 36 weeks gestation of Third trimester state, incidental Gastroesophageal reflux in [facility] Diagnosis Third trimester state, incidental 37 weeks gestation of [facility] N[facility]ative - Reported* Type Description Date Medical History fx lt elbow at age 7 Surgical History surgical repair of left elbow f racture at age 7 Hospitalization History see surgical hx [employer] Other Progress note No data available for this section [facility] Summary Purpose Family History No Family [...] section and content) DATE CREATED AUTHOR 01/05/2022 [facility] DATE CREATED AUTHOR AUTHOR'S ORGANIZ ATION 07/15/2022 [facility] DATE CREATED AUTHOR AUTHOR'S ORGANIZ ATION 10/10/2022 [facility] DATE CREATED AUTHOR AUTHOR'S ORGANIZ ATION 12/26/2023 [facility] DATE CREATED AUTHOR AUTHOR'S ORGANIZ ATION 02/05/2024 [facility] DATE CREATED AUTHOR AUTHOR'S ORGANIZ ATION 02/06/2024 [facility] DATE CREATED AUTHOR AUTHOR'S ORGANIZ ATION 03/30/2024 [facility] EPIC Care Teams (unrecognized sec tion and content) Personnel Name: SELAM HUNTER CNP Address: Address: [address] [place] [address] Team Status: Active Member Role Status [...] BE BASED ON THE PRIMARY CLINICAL RECORDS. [employer] provides no warranty or guarantee of the accuracy or completeness of information in this document.
[2024-04-01 05:50] LABS: Hematocrit 34.7 % (36.0-48.0); Hemoglobin 11.3 g/dL (12.0-16.0); Mean Corpuscular HGB Conc 32.6 g/dL (29.9-35.2); Mean Corpuscular Hemoglobin 27.5 pg (26.7-34.0); Mean Corpuscular Volume 84.4 fL (81.0-99.0); Mean Platelet Volume 11.2 fL (9.5-13.5); Platelet Count 188 10^3/uL (150-450); Red Blood Count 4.11 10^6/uL (4.20-5.40); White Blood Count 14.3 10^3/uL (4.0-11.0)
[2024-04-01] MEDS: AMPICILLIN SODIUM 2,000 MG in 0.9 % SODIUM CHLORIDE 100 ML 200 MG IV (06:00)
[2024-04-01] MEDS: OXYTOCIN/0.9 % SODIUM CHLORIDE 10 UNITS/500 ML PLAST..BAG 6 UNIT IV (06:01)
[2024-04-01 06:02] LABS: Amphetamine Screen Urine NEGATIVE (NEGATIVE); Barbiturates Screen Urine NEGATIVE (NEGATIVE); Benzodiazepines Screen Urine NEGATIVE (NEGATIVE); Buprenorphine Screen Urine NEGATIVE (NEGATIVE); Cannabinoid Screen Urine NEGATIVE (NEGATIVE); Cocaine Screen Urine NEGATIVE (NEGATIVE); Methadone Screen Urine NEGATIVE (NEGATIVE); Methamphetamines Screen Urine NEGATIVE (NEGATIVE); Opiate Screen Urine NEGATIVE (NEGATIVE); Oxycodone Screen Urine NEGATIVE (NEGATIVE); Phencyclidine Screen Urine NEGATIVE (NEGATIVE); Tricyclic Antidepressant Urine NEGATIVE (NEGATIVE)
[2024-04-01] MEDS: 0.9 % SODIUM CHLORIDE 1,000 ML 125 ML IV (06:02)
[2024-04-01] MEDS: ROPIVACAINE HCL/PF 400 MG/200 ML PREMIX 6 MG EPIDURAL (07:44)
[2024-04-01] MEDS: ONDANSETRON PF 4 MG/2 ML VIAL IV (08:09)
[2024-04-01] MEDS: AMPICILLIN SODIUM 1,000 MG in 0.9 % SODIUM CHLORIDE 50 ML 100 MG IV (09:28)
[2024-04-01] MEDS: OXYTOCIN/0.9 % SODIUM CHLORIDE 20 UNITS/1,000 ML PLAST..BAG 125 UNIT IV (10:06)
--- NOTE | 2024-04-01 10:09 | PM.OBPRCVD ---
Procedure Intrapartal events: None Induction method: per pitocin protocol Delivery augmentation: rupture of membranes and pitocin Delivery monitor: external FHT and external uterine Route of delivery: Episiotomy Description: none L&D Laceration Description: none Estimated blood loss (mL): 200 Anesthesia type: Epidural Disposition: floor Delivery date: 04/01/24 Gender: male presentation: vertex Placental delivery description: Spontaneous cord description: 3 Vessels
[2024-04-01] MEDS: IBUPROFEN 600 MG TABLET PO ×2 (10:41→18:33)
[2024-04-01] MEDS: BENZOCAINE/MENTHOL 85 GRAM SPRAY BOTTLE 1 APPLIC TOPICAL (10:42)
[2024-04-01] MEDS: GLYCERIN/WITCH HAZEL PADS 1 PAD TOPICAL (10:42)
[2024-04-01] MEDS: ACETAMINOPHEN 325 MG TABLET 650 MG PO (22:21)
[2024-04-02 00:12] VITALS: BP 107/61; PULSE 72; TEMP 36.6
[2024-04-02] MEDS: IBUPROFEN 600 MG TABLET PO ×3 (00:20→23:30)
[2024-04-02 06:18] LABS: Basophils Absolute Auto 0.1 10^3/uL (0.0-0.1); Basophils Percent Auto 0.5 % (0.2-2.0); Eosinophils Absolute Auto 0.2 10^3/uL (0.0-0.7); Eosinophils Percent Auto 1.5 % (0.9-7.0); Hematocrit 28.1 % (36.0-48.0); Hemoglobin 9.2 g/dL (12.0-16.0); Immature Granulocytes Abs Auto 0.09 10^3/uL (0.00-0.03); Immature Granulocytes Pct Auto 0.6 % (0.0-0.5); Lymphocytes Absolute Auto 2.7 10^3/uL (1.2-3.8); Mean Corpuscular HGB Conc 32.7 g/dL (29.9-35.2); Mean Corpuscular Hemoglobin 27.5 pg (26.7-34.0); Mean Corpuscular Volume 84.1 fL (81.0-99.0); Monocytes Absolute Auto 0.9 10^3/uL (0.3-0.8); Monocytes Percent Auto 6.1 % (1.7-12.0); Neutrophils Percent Auto 73.3 % (43.0-75.0); Platelet Count 173 10^3/uL (150-450); Red Blood Count 3.34 10^6/uL (4.20-5.40); Red Cell Distribution Width 13.2 % (11.0-15.0)
--- NOTE | 2024-04-02 06:38 | PM.OBPN ---
OB - PN: Subj Subjective Patient comments: no complaints and pain well controlled [place] status: doing well Exam Constitutional Vital Signs, click to edit/add: Last Vital Signs Temp 97.4 F L 04/01/24 12:10 Pulse 72 04/02/24 00:12 Resp 16 04/01/24 12:10 BP 107/61 04/02/24 00:12 O2 Del Method Room Air 04/01/24 12:10 Documenting provider has reviewed patient's vital signs: yes Common normals: no apparent distress Respiratory Common normals: normal respiratory effort and clear to auscultation bilaterally Cardio Common normals: regular rate and regular rhythm GI Common normals: Normal to inspection, nondistended, normoactive bowel sounds present Extremity Common normals: no clubbing, cyanosis or edema Results Labs Labs: Short CBC 04/02/24 Range/Units 06:12 WBC 15.0 H (4.0-11.0) 10^3/uL Hgb 9.2 L (12.0-16.0) g/dL Hct 28.1 L (36.0-48.0) % Plt Count 173 (150-450) 10^3/uL OB - PN: A/P Plan - Vaginal Delivery day: 1 Plan: routine care Time Spent with Patient Time: Total time spent is greater than 50% in coordination of care (as documented) at patient's floor/unit and/or counseling patient: Total time spent with greater than 50% in coordination of care (as documented) at patient's floor/unit and/or counseling patient: less than 15 minutes
[2024-04-02 07:40] VITALS: TEMP 36.4
[2024-04-02 07:41] VITALS: BP 102/59; PULSE 84
[2024-04-02 14:34] VITALS: BP 112/64; PULSE 78
--- NOTE | 2024-04-02 15:33 | PC.NURSE ---
Jolene awake. VSS and assessment WNL. Denies complaints of pain or discomfort. Pt has multiple questions regarding breast feeding. States attempted to breast feed 1st child, baby would not latch, milk dried up and now would really prefer to breast feed this child. Baby is noted to have tongue tie and slight lip tie. having difficulty woth
--- NOTE | 2024-04-02 15:42 | PC.NURSE ---
LC into room, pt awake and having difficulties with latching baby. Discussed impact tongue and lip tie will have on feeding, latching and supply. LC assists to latch baby. Will latch but unable to hold breast in his mouth. Mom educated on feeding positions and breast support to aid feeding. Reviewed use of cross cradle, football, laid back and side lying position. Returned to cross cradle where baby does latch. Mom reviewed pumping for stimulation and for maintaining supply until tongue tie can be evaluated and released per pediatric dentist. Discussed use of Spectra pump and flange fit. Measuring 21mm for better fit. Hand outs give with explanation. VSS and assessment WNL. Denies needs or complaints at this time.
[2024-04-02 15:52] VITALS: BP 112/64; PULSE 78; TEMP 36.6
--- NOTE | 2024-04-02 16:17 | PC.NURSE ---
Pt just finished pumping, obtaining 4ml colostrum. Dad shown to finger feed and give 4 ml of colostrum. Reviewed handouts for referral evaluation by pediatric dentist. Discussed expected follow up for support. Parents in agreement and remain positive with breast feeding.
[2024-04-02] MEDS: ACETAMINOPHEN 325 MG TABLET 650 MG PO (16:59)
[2024-04-02] MEDS: DOCUSATE SODIUM 100 MG CAPSULE PO (23:30)
[2024-04-03 00:57] VITALS: BP 117/71; PULSE 109
[2024-04-03] MEDS: ACETAMINOPHEN 325 MG TABLET 650 MG PO (01:05)
[2024-04-03 08:34] VITALS: BP 115/63; PULSE 64
[2024-04-03 08:35] VITALS: TEMP 36.2
[2024-04-03] MEDS: DOCUSATE SODIUM 100 MG CAPSULE PO (08:35)
[2024-04-03] MEDS: IBUPROFEN 600 MG TABLET PO (08:40)
[2024-04-03] MEDS: BENZOCAINE/MENTHOL 85 GRAM SPRAY BOTTLE 1 APPLIC TOPICAL (09:14)
--- NOTE | 2024-04-03 09:52 | PM.OBPN ---
OB - PN: Subj Subjective Patient comments: no complaints and pain well controlled [place] status: doing well feeding status: exclusively Exam Constitutional Vital Signs, click to edit/add: Last Vital Signs Temp 97.2 F L 04/03/24 08:35 Pulse 64 04/03/24 08:34 Resp 16 04/03/24 08:35 BP 115/63 04/03/24 08:34 O2 Del Method Room Air 04/03/24 08:35 Documenting provider has reviewed patient's vital signs: yes Common normals: no apparent distress, average body habitus, oriented x3, no limitations, healthy appearing, alert and well nourished Orientation/consciousness: Yes awake, Yes oriented to person, Yes oriented to place and Yes oriented to time HENMT Common normals: normocephalic Eye Common normals: EOMs intact bilaterally Neck & C-Spine Common normals: full ROM Lymph Lymphatic: no lymphadenopathy noted Chest Common normals: inspection of chest normal, palpation of chest normal, inspection of breasts normal and palpation of breasts normal Respiratory Common normals: normal respiratory effort Cardio Common normals: regular rate and regular rhythm Rate: regular rate Rhythm: regular rhythm GI Common normals: Normal to inspection, nondistended, normoactive bowel sounds present Inspection: normal to inspection Palpation: soft Common normals: no CVA tenderness Back & Pelvis Common normals: no CVA tenderness and thoracic and lumbar spine normal to inspection Extremity Common normals: normal to inspection and full ROM Neuro Common normals: oriented x3 Sensorium/orientation: awake, alert, oriented to person, oriented to place and oriented to time Psych Common normals: mental status grossly normal, thought process normal, cooperative, affect normal, speech normal, activity/motor behavior normal, denies hallucinations, denies homicidal ideation and denies suicidal ideation OB - PN: A/P Plan - Vaginal Delivery day: 2 Plan: discharge home Time Spent with Patient Time: Total time spent is greater than 50% in coordination of care (as documented) at patient's floor/unit and/or counseling patient: Total time spent with greater than 50% in coordination of care (as documented) at patient's floor/unit and/or counseling patient: less than 15 minutes
--- OUTSIDE RECORDS SUMMARY | 2024-04-05 14:21 | XMS_ITS | CCD ---
Author Organization [facility] Care Team Providers Care Fiberglass Technician Name Role Phone Kendra Witt Unavailable Michael [...] Unavailable ZIEBER, DR MARS Mccarthy Consulting Unavailable [place], DR SOFIA Hull Consulting Unavailable REQUEST, DR [...] MAURILIO, DR NEAL Procedure Practitioner Unavailab ricardo KABA, DR SOFIA Hull Consulting Unavailable EVER, NONE LISTED Primary Care Unavaila ble MAURILIO, DR NEAL Attending Unavailable MAURILIO, DR NEAL Admitting Unavailable MAURILIO, DR NEAL Consulting Unavailable Viet Welch Unavailable NONE, XXXX Primary Care Physician Unavailab le NO FAMILY, PHYSICIAN Primary Care Provider Unava holley Silverman MD Jose Emergency Provider LinaRosangela clementh Unavailable SELAM HUNTER Primary Care Physician [phone] JUVENAL THORPE R Referring Unavailable JUANITO PABLO Attending Unavailable JESSICA ALEJO Referring Unavailable JUVENAL THROPE Referring Unavailable SELAM HUNTER Primary Care Unavailable Siva Schulte Attending Unavailable SELAM HUNTER Primary Care Unavailable Wil Chandra Attending Unavailable SELAM HUNTER Primary Care Unavailable Emily Harper Attending Unavailable SELAM HUNTER Admitting Unavailable SELAM HUNTER Attending Unavailable Siva Schulte Attending Unavailable SELAM HUNTER Primary Care Unavailable Unavailable Primary Care Provider UnavailILAN WoodsY Attending Unavailable ELLIS, SHABANA Attending Unavailable MAURILIO, JUVENAL Attending Unavailable ELLIS, SHABANA Attending Unavailable MAURILIO, JUVENAL Attending Unavailable ELLIS, SHABANA Attending Unavailable MAURILIO, JUVENAL Attending Unavailable ELLIS, SHABANA Attending Unavailable MAURILIO, JUVENAL Attending Unavailable MAURILIO, JUVENAL Attending Unavailable Maurilio, Juvenal Attending Unavailable Maurilio, Juvenal Admitting Unavailable Allergies Allergy Classification Reported Allergen(s) Allergy Type Date of Onset Reaction(s) Facility (1 source) No Known Medication Allergies; Translations: [No Known Medication Allergies] Propensity to adverse reactions (disorder) [facility] Repository Medications Current Medications Medication Drug Class(es) Dates Sig (Normalized) Sig (Original) amoxicillin 875 mg oral tablet (2 sources) Penicillin-class Antibacterial Start: 06-07-2022 take 1 tablet by mouth every twelve [...] day(s), # 28 cap(s), Refills(s) 0, Pharmacy: [facility], 170, cm, 08/27/23 9:49:00 EDT, Height/Length Dosing, 78.7, kg, 08/27/23 9:49:00 EDT, Weight Dosing Start Date: 08/27/23 Stop Date: 09/03/23 Status: Ordered Start: 01-03-2023 take 1 capsule by [facility] every twelve hours Keflex 500 mg Cap 500 mg = 1 cap(s), Oral, q12hr, # 20 cap(s), Refills(s) 0, Pharmacy: [facility], 170, cm, 01/03/23 22:44:00 EDT, Height/Length Dosing, 75.3, kg, 01/03/23 22:44:00 EDT, Weight Dosing Start Date: 01/03/23 Status: Ordered Citalopram (2 sources) Serotonin Reuptake Inhibitor Citalopram Hydrobromide Active dexamethasone 1 mg/ml / neomycin 3.5 mg/ml / polymyxin b 94490 unt/ml ophthalmic suspension (2 sources) Aminoglycoside Antibacterial, Polymyxin-class Antibacterial, Corticosteroid Start: 09-26-19 take 1 drop(s) into the eye(s) four times daily Maxitrol 3.5-49709-2.1 1 drop into affected eye Ophthalmic Four times a day for 7 days Sep, Active ethinyl estradiol 0.02 mg / norethindrone acetate 1 mg oral tablet (6 sources) Estrogen Start: 04-10-20 Microgestin 06/28 20 mcg-1 mg oral tablet Refill(s) 0 Start Date: 04/10/19 Status: Ordered ferrous sulfate (11 sources) take 1 tablet by mouth in [...] Daily 30 tablet 6 12/01/2023 03/22/2024 Discontinued Fidelis (No Known Home Meds) (1 source) Start: 06-26-2021 Fidelis (No Known Home Meds) Active June 26, 2021 1:00am omeprazole 20 mg delayed release oral capsule (7 sources) Proton Pump Inhibitor Start: 03-22-2024 End: [...] Nausea/Vomiting, # 12 tab(s), Refills(s) 0, Pharmacy: [facility], 170, cm, 01/03/23 22:44:00 EDT, Height/Length Dosing, 75.3, kg, 01/03/23 22:44:00 EDT, Weight Dosing Start Date: 01/03/23 Status: Ordered Start: 06-09-2019 take 1 tablet by faby th three times daily Zofran ODT 4 mg Tab-Dis 4 mg = 1 tab(s), Oral, TID, # 15 tab(s), Refills(s) 0, Pharmacy: [facility] Start Date: 06/09/19 [...] take 450 mg by mouth twice daily [place] Carbonate Discontinued 450 MG PO Twice daily [...] with other respiratory manifestations Episodic Menstrual disorders (16 sources) Irregular menstruation, unspecified; Translations: [Missed period] Onset: 10-02-2021 Chronic Miscellaneous mental health disorders (1 source) depression; Translations: [ depression] 10-02-2022 Episodic Mood disorders (8 sources) Recurrent major depressive episodes, moderate ; Translations: [Major depressive disorder, recurrent, moderate] Onset: 06-22-2022 06-22-2022 Chronic Other complications of (1 source) Vomiting [...] 12-17-2018 Episodic Suicide and intentional self-inflicted injury (1 source) Suicidal thoughts; Translations: [Suicidal ideations] 10-02-2022 Episodic Unclassified (1 source) CONTACT W/AND (SUSP) EXPOS COVID-19; Translations: [CONTACT W/AND (SUSP) EXPOS COVID-19] Onset: 01-11-2022 Unclassified (1 source) Subchorionic Hematoma Onset: 11-10-2023 Unclassified (5 sources) OB Reminders Onset: 03-26-2024 03-26-2024 Viral [...] ] Onset: 09-07-2021 Episodic Residual codes; unclassified (11 sources) H/O: miscarriage; Translations: [Personal history of other complications of , childbirth and the puerperium] Onset: 09-02-2023 09-02-2023 Episodic Screening and history of mental health and substance abuse codes (1 source) Personal history of nicotine dependence; Translations: [PERSONAL HISTORY OF NICOTINE DEPEND] Onset: 01-11-2022 Episodic Unclassified (2 sources) Cough R05.9 Onset: 11-13-2021 Resolved: 11-13-2021 Results Test Name Value Interpretation Reference Range Facility ALL CBC WITH AUTO DIFFon BASOPHILS ABSOLUTE AUTO 0.1 N [facility] Basophils/100 WBC (Bld) 0.5 % 0.2 - 2.0 % [facility] Eosinophils/100 WBC (Bld) 1.5 % 0.9 - 7.0 % [facility] Erythrocyte distribution width (RBC) [Ratio] 13.2 % 11.0 - 15.0 % [facility] Hematocrit (Bld) [Volume fraction] 28.1 % Low 36.0 - 48.0 % [facility] Hemoglobin (Bld) [Mass/Vol] 9.2 g/dL Low 12.0 - 16.0 g/dL [facility] IMMATURE GRANULOCYTES ABS AUTO 0.09 High [facility] Immature granulocytes/100 WBC (Bld) 0.6 % High 0.0 - 0.5 % [facility] Interpretation and review of laboratory results Abnormal [facility] LYMPHOCYTES ABSOLUTE AUTO 2.7 [facility] Lymphocytes/100 WBC (Bld) 18 % Low 20.5 - 60.0 % [facility] MCH (RBC) [Entitic mass] 27.5 pg 26. 7 - 34.0 pg [facility] MCHC (RBC) [Mass/Vol] 32.7 g/dL 29.9 - 35.2 g/dL [facility] MCV (RBC) [Entitic vol] 84.1 fL 81.0 - 99.0 fL [facility] MONOCYTES ABSOLUTE AUTO 0.9 High N [facility] Monocytes/100 WBC (Bld) 6.1 % 1.7 - 12.0 % [facility] NEUTROPHILS ABSOLUTE AUTO 11 High [facility] Neutrophils/100 WBC (Bld) 73.3 % 43.0 - 75.0 % [facility] Platelet mean volume (Bld) [Entitic vol] 10 fL 9.5 - 13.5 fL [facility] TBH EO # 0.2 [facility] TB PLT 173 [facility] TB RBC 3.34 Low [facility] WBC 15 High [facility] WITH [facility]ATELET NO DI FFERENTIALon 04-01-2024 Erythrocyte distribution width (RBC) [Ratio] 13 % 11.0 - 15.0 % [facility] Hematocrit (Bld) [Volume fraction] 34.7 % Low 36.0 - 48.0 % [facility] Hemoglobin (Bld) [Mass/Vol] 11.3 g/dL Low 12.0 - 16.0 g/dL [facility] Interpretation and review of laboratory results Abnormal [facility] MCH (RBC) [Entitic mass] 27.5 pg 26. 7 - 34.0 pg [facility] MCHC (RBC) [Mass/Vol] 32.6 g/dL 29.9 - 35.2 g/dL [facility] MCV (RBC) [Entitic vol] 84.4 fL 81.0 - 99.0 fL [facility] Platelet mean volume (Bld) [Entitic vol] 11.2 fL 9.5 - 13.5 fL [facility] TB PLT 188 [facility] TB RBC 4.11 Low [facility] WBC 14.3 High [facility] Urinalysis macro (dipstick) panel (U)on 03-29-2024 Bilirubin, UA Negative Negative - 4(70) +++ mg/dL [facility] Blood, UA Negative Negative - 50 Miguel Ángel/mcL [facility] Clarity, UA Clear [facility] Color, UA Yellow [facility] Glucose, UA Negative Negative - 1999(110) ++++ mg/dL [facility] Interpretation and review of laboratory results Abnormal [facility] Ketones, UA Negative Negative - 160(16) ++++ mg/dL [facility] Leukocytes, UA Positive Negative - 500+++ Stefania/mcL [facility] Comment on above: small Nitrite, UA Negative Negative - Positive [facility] pH, UA 7 5 - 9 [facility] Protein, UA Negative Negative - 1999(20) ++++ mg/dL [facility] Spec Grav, UA 1.02 1 - 1.03 [facility] Urobilinogen, UA 0.2 0.2 - 12 mg/dL [facility] Urinalysis macro (dipstick) panel (U)on 03-22-2024 Bilirubin, UA Negative Negative - 4(70) +++ mg/dL [facility] Blood, UA Negative Negative - 50 Miguel Ángel/mcL [facility] Clarity, UA Clear [facility] Color, UA Yellow [facility] Glucose, UA Negative Negative - 1999(110) ++++ mg/dL [facility] Interpretation and review of laboratory results Abnormal [facility] Ketones, UA Negative Negative - 160(16) ++++ mg/dL [facility] Leukocytes, UA Positive Negative - 500+++ Stefania/mcL [facility] Comment on above: small Nitrite, UA Negative Negative - Positive [facility] pH, UA 8.5 5 - 9 [facility] Protein, UA Trace Negative - 1999(20) ++++ mg/dL [facility] Spec Grav, UA 1.02 1 - 1.03 [facility] Urobilinogen, UA 0.2 0.2 - 12 mg/dL [facility] Urinalysis macro (dipstick) panel (U)on 03-15-2024 Bilirubin, UA Negative Negative - 4(70) +++ mg/dL [facility] Blood, UA Negative Negative - 50 Miguel Ángel/mcL [facility] Clarity, UA Clear [facility] Color, UA Yellow [facility] Glucose, UA Negative Negative - 1999(110) ++++ mg/dL [facility] Interpretation and review of laboratory results Abnormal [facility] Ketones, UA Negative Negative - 160(16) ++++ mg/dL [facility] Leukocytes, UA Positive Negative - 500+++ Stefania/mcL [facility] Comment on above: small Nitrite, UA Negative Negative - Positive [facility] pH, UA 7.5 5 - 9 [facility] Protein, UA Negative Negative - 2000(20) ++++ mg/dL [facility] Spec Grav, UA 1.020 1 - 1.03 [facility] Urobilinogen, UA 4.0 0.2 - 12 mg/dL [facility] Grp A Strp PCRon 02-04-2024 Grp A Strp Intrl Ctrl Pass Normal Fis her [facility] Comment on above: Order Comment: Order Added on by Discern Rule. Performed By: #### 1 [id number] #### [facility] [address] [place] [address] S. pyogenes DNA ALFREDO+probe Ql (Throat) Negative Normal [facility] Comment on above: Order Comment: Order Added on by Discern Rule. Result Comment: Test ing performed using DNA amplification. Performed By: #### 1 [id number] #### [facility] [address] [place] [address] ED Clinical Summaryon 2023 ED Clinical Summary ED Clinical Summary [address] [address] ED Clinical Summary Person Information Name: KAILYN ACKERMAN [facility] Age: 23 Years : 2000 Sex: Female Language: South African PCP: SELAM HUNTER CNP Marital Status: Single Phone: [phone] MRN: Visit Id: Visit Reason: Headache; Body [...] 02/03/2024 11:17:23 02/03/2024 11:17:23 02/03/2024 11:17:23 ADDRESS: [address] [facility] [phone] PHYS DOC NOTES: MEDICAL INFORMATION: Prescriptions Given: [...] Follow up: With: Address: When: Juvenal THORPE [facility], [address] [place] [address] [place] [address] Business (1) In 3 days 02/06/2024 With: Address: When: [place] [address] Business (1) In 3 days 02/06/2024 DIAGNOSIS: Sore throat; Viral URI Normal [facility] ED Note-Physicianon 02-03-20 ED Note-Physician ED Note-Physician Basic Information Time Seen: Duc Swanson PA-C 02/03/2024 09:24 Chief Complaint c/o throat pain, fatigue, body aches, headaches, congestion that started last night. states was around covid over the weekend, coworker tested positive this morning. states gets strep often as well. 30 weeks sees maurilio History of Present Illness Patient is a [...] URI and will continue to follow-up with SHEET COMBINING OPERATOR for further evaluation and management. We [...] days 02/06/2024 (more content not included)... Normal [facility] Comment on above: Result Comment: Elec tronically Signed By: Duc Swanson PA-C\.br\Date and Time Signed: 02/03/24 13:23 EDT\.br\Electronically Co-Signed By: Siva Schulte DO\.br\Date and Time Co-Signed: 02/03/24 14:44 EDT ED Patient Summaryon 024 ED Patient Summary ED Patient Summary [place] [id number] Patient Discharge Instructions Person Information Name: KAILYN ACKERMAN Age: 23 Years Arrival Date: 02/03/2024 09:21:41 Discharge Diagnosis: Sore throat; Viral URI Primary Care Physician: SELAM HUNTER CNP Provider Information Primary Provider: Siva Schulte DO Advanced Solutions Architect Consultant:Duc Swanson PA-C The exam and treatment you received in the Emergency Department were for an urgent problem and are not intended as complete care. It is important that you follow up with a doctor, nurse practitioner, or physician?s laboratory assistant for ongoing care. If your symptoms [...] Follow-up Instructions: With: Address: When: Juvenal THORPE [facility], [address] [place] [address] [place] [address] Business (1) In 3 days 02/06/2024 With: Address: When: SELAM HUNTER [address] [place], [place] [id number] Business (1) In 3 days 02/06/2024 In the event that this physician does not participate in your insurance network, please consult with your insurance company to find a nearby participating provider. Patient Education Materials: Upper Respiratory Infection, Adult A MESSAGE TO ALL PATIENTS REGARDING OPIOIDS PRESCRIPTION OPIOIDS: WHAT YOU NEED TO KNOW Prescription opioids can be used to help relieve rauykjhc-jv-avwiyh pain and are often prescribed following a [...] of op (more content not included)... Normal [facility] MICRO OTHER TESTSOrdered By: Nita Delgadillo on 02-03-2024 S. pyogenes Ag IA.rapid Ql (Throat) Negative (02/03/24 11:07 AM) Normal Negative [facility] Man Sero MICRO OTHER TESTSOrdered By: Asuncion Goncalves on 02-03-2024 Rapid COV Int NEG Ctl Pass (02/03/24 9:30 AM) Normal [facility] Man Sero Rapid COV Int POS Ctl Pass (02/03/24 9:30 AM) Normal [facility] Man Sero SARS-CoV+SARS-CoV-2 (COVID-19) Ag IA.rapid Ql (Resp) Not Detected 1 (02/03/24 9:30 AM) Normal Not Detected [facility] Man Sero Comment on above: Interpretive Data: [employer] System for Rapid Detection of SARS-CoV-2 is [...] COV Int NEG Ctl Pass Normal [facility] Comment on above: Performed By: #### 2 [id number] #### [facility] [address] [place] [address] Rapid COV Int POS Ctl Pass Normal [facility] Comment on above: Performed By: #### 2 [id number] #### [facility] [address] [place] [address] SARS-CoV+SARS-CoV-2 (COVID-19) Ag IA.rapid Ql (Resp) Not detected Normal Not Detected [facility] Comment on above: Result Comment: The [employer]? System for Rapid Detection of SARS-CoV-2 is [...] or revoked sooner. Performed By: #### 2 [id number] #### [facility] [address] [place] [address] Rapid Strep w/rfxon 02-03-20 24 S. pyogenes Ag IA.rapid Ql (Throat) Negative Normal Negative [facility] Comment on above: Performed By: #### 2 [id number] #### [facility] [address] [place] [address] ED Note-Physicianon 09-26-19 24 ED Note-Physician Basic [...] 90,000. Ultrasound was obtained discussed with electromechanical technician. Intrauterine consistent with stated gestational age. Stable heart rate. Patient continues to demonstrate subchorionic hematoma. Also left-sided ovarian cyst similar to previous. Results were discussed with the patient. She is discharged home to continue pelvic rest and follow-up with SHEET COMBINING OPERATOR. Patient was encouraged to return to [...] Juvenal THORPE In 3 days 09/26/[address] , [place] [address]- Business (1) Additional Instructions: Patient Education Subchorionic [...] made to ensure accuracy, however, inadvertently computerized spot billing clerk mistakes may be present. Appropriate healthcare [...] Yes., 04/10/2019 Lab Results Beta hCG Qnt: 02356 mIU/mL High (09/23/23 09:28:00) Diagnostic Results No qualifying data available. Normal [facility] Comment on above: Result Comment: Elec tronically Signed By: Venkat Lockwood PA-C\.br\Date and Time Signed: 09/23/23 11:45 EDT\.br\Electronically Co-Signed By: Wil Chandra DO\.br\Date and Time Co-Signed: 09/26/23 07:[address] [facility] Quanton 09-23-2023 [place] [address] m[IU]/mL High 1-3 F [facility] Comment on above: Result Comment: 'F N ON < 1 - 3' ' 0.2 - 1 WEEK = 5 TO 50' ' 1 - 2 WEEKS = 50 - 500' ' 2 - 3 WEEKS = 100 - 5000' ' 3 - 4 WEEKS = 500 - 12566' ' 4 - 5 WEEKS = 1000 - 38627' ' 5 - 6 WEEKS = 28090 - 771269' ' 6 - 8 WEEKS = 52225 - 246065' ' 8 - 12 WEEKS = 85871 - 762553' Performed By: #### 2 [id number] ####[facility] [address] [place] [id number] CHEMISTRYOrdered By: SYSTEM SYSTEM on 09-23-2023 [place] [address] m[IU]/mL High 1 - 3 mIU/mL [facility] Comment on above: Result Comment: 'F N ON < 1 - 3' ' 0.2 - 1 WEEK = 5 TO 50' ' 1 - 2 WEEKS = 50 - 500' ' 2 - 3 WEEKS = 100 - 5000' ' 3 - 4 WEEKS = 500 - 73280' ' 4 - 5 WEEKS = 1000 - 82999' ' 5 - 6 WEEKS = 28557 - 197724' ' 6 - 8 WEEKS = 58263 - 219713' ' 8 - 12 WEEKS = 81474 - 162540' Consent for Treatmenton 09-07 Consent for Treatment [id number]#1.00TIFF Normal [facility] Discharge Instructionson Discharge Instructions [id number]#1.00TIFF Normal [facility] ED Clinical Summaryon 2023 ED Clinical Summary [address] [address] ED Clinical Summary Person Information Name: GARCÍA ACKERMANNZIE Evan [facility] Age: 23 Years : 2000 Sex: Female Language: South African PCP: NONE, XXXX Marital Status: Single Phone: [phone] MRN: Visit Id: Visit Reason: Back pain; [...] 11:52:16 09/23/2023 11:52:16 09/23/2023 11:52:16 ADDRESS: [address] [facility] [phone] PHYS DOC NOTES: MEDICAL INFORMATION: Prescriptions Given: [...] Follow up: With: Address: When: Juvenal THORPE [facility], [address] [place] [address] [place] [address] Business (1) In 3 days 09/26/2023 DIAGNOSIS: Other antepartum hemorrhage, unspecified trimester; Subchorionic bleed; Vaginal bleeding in Normal [facility] ED Patient Education Noteon 09-23-2023 [...] provider. Document Revised: 02/19/2021 Document Reviewed: 02/19/2021 [employer] Patient Education ? 2022 [employer] Normal [facility] ED Patient Summaryon 024 ED Patient Summary [address] [address] Patient Discharge Instructions Person Information Name: KAILYN ACKERMAN Age: 23 Years Arrival Date: 09/23/2023 09:10:07 Discharge Diagnosis: Other antepartum hemorrhage, unspecified trimester; Subchorionic bleed; Vaginal bleeding in Primary Care Physician: NONE, XXXX Provider Information Primary Provider: Wil Chandra DO Advanced Solutions Architect Consultant:Venkat Leal PA-C The exam and treatment you received in the Emergency Department were for an urgent problem and are not intended as complete care. It is important that you follow up with a doctor, nurse practitioner, or physician?s laboratory assistant for ongoing care. If your symptoms [...] Follow-up Instructions: With: Address: When: Juvenal MAURILIO [facility], [address] [place] [address] [place] [address] Business (1) In 3 days 09/26/2023 In the event that this physician does not participate in your insurance network, please consult with your insurance company to find a nearby participating provider. Patient Education Materials: Subchorionic Hematoma A MESSAGE TO ALL PATIENTS REGARDING OPIOIDS PRESCRIPTION OPIOIDS: WHAT YOU NEED TO KNOW Prescription opioids can be used to help relieve rhcfpxsq-ue-liqyyp pain and are often prescribed following a [...] care p (more content not included)... Normal [facility] Prescriptions/Work Noteson 0 09-23-2023 Prescriptions/Work Notes [id number]#[id number] Normal [facility] US 1st Trimesteron 09-23-2023 US 1st [...] least 66% of the gestational sac circumference. [place] Rump Length: 3.2 cm, which corresponds Composite [...] Size = Dates Uterus Position Anteverted Normal [facility] C Urineon 08-29-2023 Bacteria identified [...] This test was performed at: [facility], [address] [place] [address], [address] , , [facility] Comment on above: Performed By: #### 4 [id number] ####[facility] [address] [place] [address] ABO/Rhon 08-27-2023 ABO/Rh Positive Invalid Interpretation Code [facility] Comment on above: Performed By: #### 2 [id number] ####[facility] [address] [place] [address] BLOOD BANKOrdered By: Liza Xavier on 08-27-2023 ABO/Rh Interp Positive Invalid Interpretation Code [facility] BB Subsection BMPon 08-27-2023 Anion gap [Moles/Vol] 11 mmol/L Normal 6-16 [facility] Comment on above: Performed By: #### 1 [id number] ####[facility] [address] [place] [address] Calcium [Mass/Vol] 9.3 mg/dL Normal 8.9-11.1 [facility] Comment on above: Performed By: #### 1 [id number] ####[facility] [address] [place] [address] Chloride [Moles/Vol] 104 mmol/L Normal 101-[address] [facility] Comment on above: Performed By: #### 1 [id number] ####[facility] [address] [place] [address] CO2 [Moles/Vol] 24 mmol/L Normal 21-31 [facility] Comment on above: Performed By: #### 1 [id number], [id number], [id number] ####[facility] [address] [place] [address] Creatinine [Mass/Vol] 0.6 mg/dL Normal 0.5-1.3 [facility] Comment on above: Performed By: #### 1 [id number], [id number], [id number] ####[place] [address] [place] [address] Glucose [Mass/Vol] 87 mg/dL Normal 55-199 [facility] Comment on above: Performed By: #### 1 [id number], [id number], [id number] ####[address] [address] Potassium [Moles/Vol] 3.7 mmol/L Normal 3.5-5.3 [facility] Comment on above: Performed By: #### 1 [id number], [id number], [id number] ####[facility] [address] [place] [address] Sodium [Moles/Vol] 135 mmol/L Normal 135-145 [facility] Comment on above: Performed By: #### 1 [id number], [id number], [id number] ####[facility] [address] [place] [address] Urea nitrogen [Mass/Vol] 8 mg/dL Normal 5-21 [facility] Comment on above: Performed By: #### 1 [id number], 5841709, 5058577 ####[facility] [address] [place] [address] Urea nitrogen/Creatinine [Mass ratio] 13 No Units Normal 10-20 [facility] Comment on above: Performed By: #### 1 [id number], 2638405, 6924941 ####[place] [address] BhCG Quanton 08-27-2023 [place] [address] m[IU]/mL High 1-3 [facility] Comment on above: Result Comment: 'F N ON < 1 - 3' ' 0.2 - 1 WEEK = 5 TO 50' ' 1 - 2 WEEKS = 50 - 500' ' 2 - 3 WEEKS = 100 - 5000' ' 3 - 4 WEEKS = 500 - 97539' ' 4 - 5 WEEKS = 1000 - 18157' ' 5 - 6 WEEKS = 50122 - 590277' ' 6 - 8 WEEKS = 59795 - 186238' ' 8 - 12 WEEKS = 70461 - 004180' Performed By: #### 2 [id number] ####[address] [address] CBC w/ Auto Diffon Basophils/100 WBC (Bld) 0.6 % Normal 0.0-2.0 [facility] Comment on above: Performed By: #### 1 8601179, 2323271, 8662139 ####[address] [address] Basophils/Leukocytes Auto (Bld) [Pure # fraction] 0.0 E9/L Normal 0.0-0.2 [facility] Comment on above: Performed By: #### 1 5155084, 5935030, 3609823 ####[address] [address] Eosinophils (Bld) [#/Vol] 0.1 E9/L Normal 0.0-0.5 [facility] Comment on above: Performed By: #### 1 1312866, 6092454, 8995771 ####[address] [address] Eosinophils/100 WBC (Bld) 2.0 % Normal 0.0-8.0 [facility] Comment on above: Performed By: #### 1 2981885, 6854420, 4214876 ####[address] [address] Erythrocyte distribution width (RBC) [Ratio] 15.0 % High 10.9-14.2 [facility] Comment on above: Performed By: #### 1 7974352, 1400184, 2527138 ####[address] [address] Hematocrit (Bld) [Volume fraction] 37.4 % Normal 34.0-46.0 [facility] Comment on above: Performed By: #### 1 7467221, 5712710, 8187730 ####[place] [address]757 Hemoglobin (Bld) [Mass/Vol] 12.7 g/dL Normal 12.0-16.0 [facility] Comment on above: Performed By: #### 1 3818278, 1947953, 6460829 ####[place] [address] Lymphocytes (Bld) [#/Vol] 2.0 E9/L Normal 1.0-4.0 [facility] Comment on above: Performed By: #### 1 9203215, 7031550, 2428365 ####[place] [address]757 Lymphocytes/100 WBC (Bld) 28.1 % Normal 14.0-50.0 [facility] Comment on above: Performed By: #### 1 9821445, 6944274, 5077705 ####[place] [address]757 MCH (RBC) [Entitic mass] 28.4 pg Normal 27.0-34.0 [facility] Comment on above: Performed By: #### 1 6771739, 2757461, 9571094 ####[address] [address] MCHC (RBC) [Mass/Vol] 33.8 g/dL Normal 31.4-36.0 [facility] Comment on above: Performed By: #### 1 5231510, 0657864, 7691410 ####[address] [address] MCV (RBC) [Entitic vol] 84.0 fL Normal 80.0-100.0 [facility] Comment on above: Performed By: #### 1 9967973, 0795166, 2100920 ####[address] [address] Monocytes (Bld) [#/Vol] 0.5 E9/L Normal 0.2-1.0 [facility] Comment on above: Performed By: #### 1 0206180, 6708008, 4096249 ####[address] [address] Neutrophils (Bld) [#/Vol] 4.5 E9/L Normal 2.0-7.5 [facility] Comment on above: Performed By: #### 1 5316535, 1358411, 7463673 ####[address] [address] Neutrophils/100 WBC (Bld) 61.9 % Normal 36.0-75.0 [facility] Comment on above: Performed By: #### 1 7057127, 2053775, 3052070 ####[address] [address] Platelet mean volume (Bld) [Entitic vol] 7.9 fL Normal 6.4-10.8 [facility] Comment on above: Performed By: #### 1 7722769, 6912976, 1225231 ####[address] [address] Platelets (Bld) [#/Vol] 252.0 E9/L Normal 150.0-500.0 [facility] Comment on above: Performed By: #### 1 4229779, 7166653, 2005520 ####[address] [address] RBC (Bld) [#/Vol] 4.5 E12/L Normal 4.3-5.9 [facility] Comment on above: Performed By: #### 1 1966712, 4251854, 7226781 ####[facility] [address] [place] [address] WBC corrected for nucl RBC Auto (Bld) [#/Vol] 7.2 E9/L Normal 4.0-11.0 [facility] Comment on above: Performed By: #### 1 9425627, 3315393, 8259190 ####[facility] [address] [place] [address] CHEMISTRYOrdered By: SYSTEM SYSTEM on 08-27-2023 Anion [...] 199 mg/[place] [address] m[IU]/mL High 1 - 3 mIU/mL [facility] Comment on above: Result Comment: 'F N ON < 1 - 3' ' 0.2 - 1 WEEK = 5 TO 50' ' 1 - 2 WEEKS = 50 - 500' ' 2 - 3 WEEKS = 100 - 5000' ' 3 - 4 WEEKS = 500 - 90466' ' 4 - 5 WEEKS = 1000 - 02725' ' 5 - 6 WEEKS = 39336 - 985361' ' 6 - 8 WEEKS = 71489 - 247905' ' 8 - 12 WEEKS = 35986 - 055262' Potassium [Moles/Vol] 3.7 mmol/L Normal 3.5 - 5.3 mmol/L [facility] Sodium [Moles/Vol] 135 mmol/L Normal 135 - 145 mmol/L [facility] Urea nitrogen [Mass/Vol] 8 mg/dL Normal 5 - 21 mg/d L [facility] Urea nitrogen/Creatinine [Mass ratio] 13 mg/mg Normal 10 - 20 [facility] Consent for Treatmenton 08-08 Consent for Treatment [id number] Normal [facility] Discharge Instructionson Discharge Instructions [id number] Normal [facility] ED Clinical Summaryon 2023 ED Clinical Summary [address] [address] ED Clinical Summary Person Information Name: KAILYN ACKERMAN [facility] Age: 22 Years : 2000 Sex: Female Language: South African PCP: SELAM HUNTER CNP Marital Status: Single Phone: [phone] MRN: Visit Id: Visit Reason: Vaginal bleeding [...] 12:34:16 08/27/2023 12:34:16 08/27/2023 12:34:16 ADDRESS: [address] [facility] [phone] PHYS DOC NOTES: MEDICAL INFORMATION: Prescriptions Given: Medications to Continue Taking That Have Changed [facility], [address] [place], [place] [phone], [phone] START: cephalexin (Keflex 500 mg Cap) 1 [...] Urinary Tract Infection; Urinary Tract Infection, Adult, Kafy-js-Jhtg; Subchorionic Hematoma Follow up: With: Address: When: Juvenal THORPE [facility], [address] [place] [address] [place] [address] Business (1) In 3 days 08/30/2023 With: Address: When: [place] [address] Business (1) In 3 days DIAGNOSIS: Other antepartum hemorrhage, unspecified trimester; Subchorionic bleed; UTI (urinary tract infection) during ; Vaginal bleeding in Normal [facility] ED Note-Physicianon 08-27-19 ED Note-Physician [...] and Complexity of Problems Differential Diagnosis: [] [facility] Data External documents reviewed: [] My EKG [...] day(s), # 28 cap(s), Refills(s) 0, Pharmacy: [facility], 170, cm, 08/27/23 9:49:00 EDT, Height/Length [...] Juvenal THORPE In 3 days 08/30/[address] [place] [address]- Business (1) Additional Instructions: ESLAM HUNTER In 3 days [address] [place] [address]- Business (1) Additional Instructions: Patient Education and Urinary Tract Infection Urinary Tract Infection, Adult, Qjuj-as-Awwx Subchorionic Hematoma Attestation Patient seen and evaluated by the physician laboratory assistant. Attending physician was present in the emergency department and s (more content not included)... Normal [facility] Comment on above: Result Comment: [...] provider. Document Revised: 01/09/2022 Document Reviewed: 01/09/2022 [employer] Patient Education ? 2022 [employer]. Urinary Tract Infection, Adult A urinary tract [...] swelling (inflammation) (more content not included)... Normal [facility] ED Patient Summaryon 024 ED Patient Summary [place] [address] Patient Discharge Instructions Person Information Name: KAILYN ACKERMAN Age: 22 Years Arrival Date: 08/27/2023 09:37:12 Discharge Diagnosis: Other antepartum hemorrhage, unspecified trimester; Subchorionic bleed; UTI (urinary tract infection) during ; Vaginal bleeding in Primary Care Physician: SELAM HUNTER CNP Provider Information Primary Provider: Emily Harper M.D. Advanced Solutions Architect Consultant:None The exam and treatment you received in the Emergency Department were for an urgent problem and are not intended as complete care. It is important that you follow up with a doctor, nurse practitioner, or physician?s laboratory assistant for ongoing care. If your symptoms [...] Follow-up Instructions: With: Address: When: Juvenal THORPE [facility], [address] [facility] [place] [address] Business (1) In 3 days 08/30/2023 With: Address: When: [place] [address] Business (1) In 3 days In the event that this physician does not participate in your insurance network, please consult with your insurance company to find a nearby participating provider. Patient Education Materials: and Urinary Tract Infection; Urinary Tract Infection, Adult, Sojt-hj-Cubx; Subchorionic Hematoma A MESSAGE TO ALL PATIENTS REGARDING OPIOIDS PRESCRIPTION OPIOIDS: WHAT YOU NEED TO KNOW Prescription opioids can be used to help relieve ikbpblcp-pj-pbupwk pain and are often prescribed following a [...] toilet, follo (more content not included)... Normal [facility] HEMATOLOGYOrdered By: SYSTEM SYSTEM on [...] Rflxon 08-27-19 Color (U) Light-Yellow Normal Yellow [facility] Comment on above: Result Comment: Micr oscopic readings are only performed on those samples that meet specific criteria set forth by [facility] Laboratory. Performed By: #### 4 [id number], [id number] ####[facility] [address] [place] [address] Glucose (U) [Mass/Vol] Negative Normal Negative [facility] Comment on above: Performed By: #### 4 [id number], 9544842 ####[address] [address] Ketones Ql (U) Negative Normal Negative [facility] Comment on above: Performed By: #### 4 [id number], 9296219 ####[facility] [address] [place] [address] UA Blood 3+ Abnormal Negative [facility] Comment on above: Performed By: #### 4 [id number], 6256667 ####[place] [address] UA Bacteria 1+ [id number] Abnormal Trace [facility] Comment on above: Performed By: #### 4 [id number], 0236254 ####[place] [address] UA Clarity Turbid Abnormal Clear [facility] Comment on above: Performed By: #### 4 [id number], 6430044 ####[address] [address] UA Hyal Cast 0-3 Normal 0-3 [facility] Comment on above: Performed By: #### 4 [id number], 1203081 ####[address] [address] UA Leuk Est 250 Stefania/uL Abnormal Negative [facility] Comment on above: Performed By: #### 4 [id number], 8036497 ####[facility] [address] [place] [address] UA Mucous Trace Normal Negative [facility] Comment on above: Performed By: #### 4 [id number], 0443082 ####[facility] [address] [place] [address] UA Nitrite Negative Normal Negative [facility] Comment on above: Performed By: #### 4 [id number], 7236993 ####[facility] [address] [place] [address] UA pH 5.5 Invalid Interpretation Code 5.0-9.0 [facility] Comment on above: Performed By: #### 4 [id number], 7763361 ####[address] [address] UA Protein 1+ mg/dL Abnormal Negative [facility] Comment on above: Performed By: #### 4 [id number], 8687447 ####[address] [address] UA RBC 4-20 Abnormal 0-3 [facility] Comment on above: Performed By: #### 4 141644642, 2948897 ####[address] [address] UA Spec Grav 1.018 Invalid Interpretation Code 1.005-1.030 [facility] Comment on above: Performed By: #### 4 [id number], 6320027 ####[address] [address] UA Squam Epithelial 3-4 Abnormal 0-2 [facility] Comment on above: Performed By: #### 4 [id number], 0897527 ####[address] [address] UA Urobilinogen Negative Normal Negative [facility] Comment on above: Performed By: #### 4 [id number], 3331509 ####[address] [address] UA WBC 6-15 Abnormal 0-5 [facility] Comment on above: Performed By: #### 4 [id number], 4203826 ####[address] [address] Urobilinogen (U) [Mass/Vol] Negative Normal Negative [facility] Comment on above: Performed By: #### 4 [id number], 9959171 ####[address] [address] UA Spec Desc Clean Catch Normal [facility] Comment on above: Performed By: #### 4 [id number], 7231157 ####[facility] [address] [place] [address] URINALYSISOrdered By: SYSTEM SYSTEM on 08-27-2023 Color (U) Light-Yellow 1 (08/27/23 9:55 AM) Normal Yellow [facility] UA Auto SS Comment on above: Interpretive Data: M icroscopic readings are only performed on those samples that meet specific criteria set forth by [facility]. Glucose (U) [Mass/Vol] Negative [...] Urobilinogen (U) [Mass/Vol] Negative Normal Negativemg/d L [facility] UA Auto SS URINALYSISOrdered By: Hudson munoz on 08-27-2023 UA Spec Desc Clean Catch (08/27/23 9:55 AM) Normal [facility] UA Auto SS US 1st Trimesteron 08-27-2023 US 1st Trimester Exam Date/Time: 08/27/2023 11:54 EDT Reason for Exam: Other (please specify) Report [facility] [phone] IMPRESSION: Single live intrauterine with estimated sonographic [...] heart rate is measured at 120 bpm. [place]-rump length 4.77 mm. Estimated sonographic gestational age [...] Riley FINAL REPORT Dictated: 08/27/2023 12:31 pm SignZach cowan MD Signed (Electronic Signature): 08/27/2023 12:31 pm Signed by: Zach Deng MD Transcribed by: KIRK Technologist: SHELLEY Technical Comments LMP : 07/10/2023 Regular History 4 Para 1 Transabdominal Ultrasound Performed Transvaginal Ultrasound Performed FHR (bpm) 120 Normal [facility] US Transvaginalon 08-27-2023 US Transvaginal Exam Date/Time: 08/27/2023 11:55 EDT Reason for Exam: Other (please specify) Report [facility] [phone] Please see ultrasound pelvis, for report of transvaginal examination. Ordering Provider: Hudson Riley FINAL REPORT Dictated: 08/27/2023 12:33 pm Zach Deng MD Signed (Electronic Signature): 08/27/2023 12:33 pm Signed by: Zach Deng MD Transcribed by: KIRK Technologist: SHELLEY Normal [facility] eGFRon 08-27-2023 eGFR 131 mL/min/1.73 m2 Normal >=59 [facility] Comment on above: Order Comment: Order added by Discern Expert. Performed By: #### 1 [id number], 8553465, [id number] ####[facility] [address] [place] [address] [facility] Quanton 08-19-2023 HCG.beta subunit Qn 4261 m[IU]/mL High 1-3 [facility] Comment on above: Result Comment: 'F N ON < 1 - 3' ' 0.2 - 1 WEEK = 5 TO 50' ' 1 - 2 WEEKS = 50 - 500' ' 2 - 3 WEEKS = 100 - 5000' ' 3 - 4 WEEKS = 500 - 55865' ' 4 - 5 WEEKS = 1000 - 66701' ' 5 - 6 WEEKS = 08515 - 829322' ' 6 - 8 WEEKS = [address] - 163710' ' 8 - 12 WEEKS = [address] - 153888' Performed By: #### 2 [id number] ####[facility] [address] [place] [address] Physician Orderon 08-19-2023 Physician Order [id number] Normal [facility] CHEMISTRYOrdered By: Juancho benitez on [...] mL/min/1.73 m2 Normal >=59mL/min/1 .73 m2 [facility] Chem S HCG.beta subunit Qn 1572 m[IU]/mL [...] 7.6 fL Normal 6.4 - 10.8 fL FT HemeAutoSS Platelets (Bld) [#/Vol] 237.0 E9/L Normal 150. 0 - 500.0 E9/L [facility] HemeAutoSS RBC (Bld) [#/Vol] 4.2 E12/L Low 4.3 - 5.9 E12/L FT HemeAutoSS WBC corrected for nucl RBC Auto (Bld) [#/Vol] 16.9 E9/L High 4.0 - 11.0 E9/L FT HemeAutoSS Laboratory - Microbiology an d Antimicrobial susceptibilityOrdered By: Asuncion Goncalves on 01-03-2023 Bacteria identified Cx Nom (U) No growth to date Continuing incubation [facility] MICRO OTHER TESTSOrdered By: Juancho Fitch on 01-03-2023 S. pyogenes Ag IA.rapid Ql (Throat) Positive *ABN* (01/03/23 10:52 PM) Invalid Interpretation Code Negative [facility] Man Sero SEROLOGYOrdered By: Juancho mullins on 01-03-2023 HCG.beta subunit (U) [Moles/Vol] Positive (01/03/23 10:52 PM) Normal FT Man Sero URINALYSISOrdered By: Juancho Ftich on 01-03-2023 Bacteria LM Ql (Urine sed) [...] Interpretation Code Negative [facility] UA Auto SS [place].plasma/[place].R BC (Bld) [Mass ratio] 0-3 /HPF Normal [...] [facility] UA Auto SS Urobilinogen Qn (U) 1.2025102 {Georgina'U}/dL Normal 0.0 - 1.0 EU/dL [facility] UA Auto SS WBC Auto Ql (U) 1+ *ABN* (01/03/23 10:52 PM) Invalid Interpretation Code Negative [facility] UA Auto SS WBC LM.HPF (Urine sed) [#/Area] 6-15 /HPF Invalid Interpretation Code 0-5/HPF [facility] UA Auto SS Alanine aminotransferase [En zymatic activity/volume] in Serum or PlasmaOrdered By: Jose Silverman on 10-02-2022 ALT [Catalytic activity/Vol] 13 U/L 7-52 [facility] Albumin [Mass/volume] in Ser um or Plasma by Bromocresol green (BCG) dye binding methoOrdered By: Jose Silverman on 10-02-2022 Albumin BCG dye [Mass/Vol] 5.0 g/dL 3.5-5.7 [facility] Alkaline phosphatase [Enzyma tic activity/volume] in Serum or PlasmaOrdered By: Joes Silverman on 10-02-2022 ALP [Catalytic activity/Vol] 69 U/L 34-104 [facility] Amphetamine Screen Ql (U)Ord ered By: Jose Silverman on 10-02-2022 Amphetamines Ql (U) Negative Negative [facility] Aspartate aminotransferase [ Enzymatic activity/volume] in Serum or PlasmaOrdered By: Jose Silverman on 10-02-2022 AST [Catalytic activity/Vol] 21 U/L 13-39 [facility] Automated erythrocytes count in urine sediment (number/area)Ordered By: Jose Silvermna on 10-02-2022 RBC Auto (Urine sed) [#/Area] 0-1 [HPF] 0-4 [facility] Automated leukocytes count i n urine sediment (number/area)Ordered By: Jose Silverman on 10-02-2022 WBC Auto (Urine sed) [#/Area] 10-19 [HPF] 0-4 [facility] Barbiturates [Presence] in U rine by Screen methodOrdered By: Jose Silverman on 10-02-2022 Barbiturates Screen Ql (U) Negative Negative [facility] Basophils Auto (Bld) [#/Vol] Ordered By: Jose Silverman on 10-02-2022 Basophils (Bld) [#/Vol] 0.1 10*3/uL 0.0-0.2 [facility] Basophils/100 WBC Auto (Bld) Ordered By: Jose Silverman on 10-02-2022 Basophils/100 WBC (Bld) 0.5 % . F [facility] Benzodiazepines Screen Ql (U )Ordered By: Jose Silverman on 10-02-2022 Benzodiazepines Ql (U) Negative Negative Fi [facility] Benzoylecgonine [Presence] i n Urine by Screen methodOrdered By: Jose Silverman on 10-02-2022 Benzoylecgonine Screen Ql (U) Negative Negative [facility] Bilirubin Test strip Ql (U)O rdered By: Jose Silverman on 10-02-2022 Bilirubin Ql (U) Negative Negative [facility] Bilirubin.total [Mass/volume ] in Serum or PlasmaOrdered By: Jose Silverman on 10-02-2022 Bilirubin [Mass/Vol] 0.3 mg/dL 0.3-1.0 [facility] Calcium [Mass/volume] in Ser um or PlasmaOrdered By: Jose Silverman on 10-02-2022 Calcium [Mass/Vol] 9.6 mg/dL 8.6-10.3 [facility] Cannabinoids [Presence] in U rine by Screen methodOrdered By: Jose Silverman on 10-02-2022 Cannabinoids Screen Ql (U) Negative Negative [facility] Comment on above: These are unconfirme d results and should not be used for legal purposes. Drug Cut-Off Concentration: AMPH 1000 ng/mL MIAH 200 ng/mL AYAN 200 ng/mL COCM 300 ng/mL OP 300 ng/mL PCP 25 ng/mL THC 20 ng/mL Carbon dioxide, total [Moles /volume] in Serum or PlasmaOrdered By: Jose Silverman on 10-02-2022 CO2 [Moles/Vol] 27.2 mmol/L 21.0-31.0 [facility] Chloride [Moles/volume] in S brian or PlasmaOrdered By: Jose Silverman on 10-02-2022 Chloride [Moles/Vol] 101 mmol/L 98-107 [facility] Color Auto (U)Ordered By: Loli Silverman on 10-02-2022 Color (U) Yellow Yellow [facility] Creatinine [Mass/volume] in Serum or PlasmaOrdered By: Jose Silverman on 10-02-2022 Creatinine [Mass/Vol] 0.89 mg/dL 0.60-1.20 [facility] Eosinophils Auto (Bld) [#/Vo l]Ordered By: Jose Silverman on 10-02-2022 Eosinophils (Bld) [#/Vol] 0.3 10*3/uL 0.0-0.45 [facility] Eosinophils/100 WBC Auto (Bl d)Ordered By: Jose Silverman on 10-02-2022 Eosinophils/100 WBC (Bld) 2.0 % . [facility] Erythrocyte distribution wid th Auto (RBC) [Ratio]Ordered By: Jose Silverman on 10-02-2022 Erythrocyte distribution width (RBC) [Ratio] 15.8 % 11.9-15.3 [facility] Ethanol [Mass/volume] in Ser um or PlasmaOrdered By: Jose Silverman on 10-02-2022 Ethanol [Mass/Vol] mg/dL [facility] Ethanol [Mass/Vol] TNP [facility] Comment on above: Test not performed Globulin Calc (S) [Mass/Vol] Ordered By: Jose Silverman on 10-02-2022 Globulin (S) [Mass/Vol] 3.7 g/dL F [facility] Glucose [Mass/volume] in Ser um or PlasmaOrdered By: Jose Silverman on 10-02-2022 Glucose [Mass/Vol] 98 mg/dL 70-100 [facility] Comment on above: ADA recommended refe rence rangeRandom Glucose Reference Range is dependent on time and content of last meal. Glucose of more than 200 mg/dL in a nonstressed, ambulatory subject supports the diagnosis of Diabetes Mellitus. HCG ( test) IA.rapi d Ql (U)Ordered By: Jose Silverman on 10-02-2022 HCG ( test) Ql (U) Negative [facility] Hematocrit Auto (Bld) [Volum e fraction]Ordered By: Jose Silverman on 10-02-2022 Hematocrit (Bld) [Volume fraction] 41.7 % 34.0-46.4 [facility] Hemoglobin [Mass/volume] in BloodOrdered By: Jose Silverman on 10-02-2022 Hemoglobin (Bld) [Mass/Vol] 13.3 g/dL 11.8-15.4 [facility] Ketones Auto test strip (U) [Mass/Vol]Ordered By: Jose Silverman on 10-02-2022 Ketones (U) [Mass/Vol] Negative Negative [facility] - UrinalysisOrder ed By: Jose Silverman on 10-02-2022 Hyaline casts LM Ql (Urine sed) 0-8 [LPF] 0-8 [facility] Leukocytes [#/volume] correc ruby for nucleated erythrocytes in Blood by Automated counOrdered By: Jose Silverman on 10-02-2022 WBC corrected for nucl RBC Auto (Bld) [#/Vol] 12.9 10*3/uL 3.8-11.6 [facility] Lymphocytes Auto (Bld) [#/Vo l]Ordered By: Jose Silvreman on 10-02-2022 Lymphocytes (Bld) [#/Vol] 3.0 10*3/uL 1.00-4.8 [facility] Lymphocytes/100 WBC Auto (Bl d)Ordered By: Jose Silverman on 10-02-2022 Lymphocytes/100 WBC (Bld) 23.1 % . [facility] MCH Auto (RBC) [Entitic mass ]Ordered By: Jose Silverman on 10-02-2022 MCH (RBC) [Entitic mass] 25.2 pg 24.7-34.3 [facility] MCHC Auto (RBC) [Mass/Vol]Or dered By: Jose Silverman on 10-02-2022 MCHC (RBC) [Mass/Vol] 32.0 g/dL 32.0-35.0 Fir [facility] MCV Auto (RBC) [Entitic vol] Ordered By: Jose Silverman on 10-02-2022 MCV (RBC) [Entitic vol] 78.5 fL 80-[address] [facility] Monocyte distribution width [Entitic volume] in Blood by AutomatedOrdered By: Jose Silverman on 10-02-2022 Monocyte distribution width Auto (Bld) [Entitic vol] 17.72 % 0.00-20.00 [facility] [facility] Monocytes Auto (Bld) [#/Vol] Ordered By: Jose Silverman on 10-02-2022 Monocytes (Bld) [#/Vol] 0.7 10*3/uL 0.0-0.8 [facility] Monocytes/100 WBC Auto (Bld) Ordered By: Jose Silverman on 10-02-2022 Monocytes/100 WBC (Bld) 5.7 % . [facility] Neutrophils Auto (Bld) [#/Vo l]Ordered By: Jose Silverman on 10-02-2022 Neutrophils (Bld) [#/Vol] 8.9 10*3/uL 1.8-7.7 [facility] Neutrophils/100 WBC Auto (Bl d)Ordered By: Jose Silverman on 10-02-2022 Neutrophils/100 WBC (Bld) 68.7 % . [facility] Nitrite Test strip Ql (U)Ord ered By: Jose Silverman on 10-02-2022 Nitrite Ql (U) Negative Negative [facility] No Panel InformationOrdered By: Jose Silverman on 10-02-2022 Estimated GFR (CKD-EPI) > 60.0 mL/Min [facility] Creatinine Clearance (Chem 107.48 [facility] Nucleated erythrocytes [Pres ence] in Blood by Automated countOrdered By: Jose Silverman on 10-02-2022 Nucleated RBC Auto Ql (Bld) 0.0 /100{WBC} 0-0.5 [facility] Opiates [Presence] in Urine by Screen methodOrdered By: Jose Silverman on 10-02-2022 Opiates Screen Ql (U) Negative Negative [facility] Phencyclidine Screen Ql (U)O rdered By: Jose Silverman on 10-02-2022 Phencyclidine Ql (U) Negative Negative [facility] Platelet mean volume Auto (B ld) [Entitic vol]Ordered By: Jose Silverman on 10-02-2022 Platelet mean volume (Bld) [Entitic vol] 7.7 fL 6.3-10.7 [facility] Platelets Auto (Bld) [#/Vol] Ordered By: Jose Silverman on 10-02-2022 Platelets (Bld) [#/Vol] 342 10*3/uL 150-450 [facility] Potassium [Moles/volume] in Serum or PlasmaOrdered By: Jose Silverman on 10-02-2022 Potassium [Moles/Vol] 3.8 mmol/L 3.5-5.1 [facility] Protein Auto test strip (U) [Mass/Vol]Ordered By: Jose Silverman on 10-02-2022 Protein (U) [Mass/Vol] Negative Negative [facility] Protein [Mass/volume] in Ser um or PlasmaOrdered By: Jose Silverman on 10-02-2022 Protein [Mass/Vol] 8.7 g/dL 6.4-8.9 [facility] RBC Auto (Bld) [#/Vol]Ordere d By: Jose Silverman on 10-02-2022 RBC (Bld) [#/Vol] 5.31 10*6/uL 3.60-5.00 [facility] Serum or plasma albumin/glob ulin mass ratioOrdered By: Jose Silverman on 10-02-2022 Albumin/Globulin [Mass ratio] 1.4 {ratio} [facility] Serum or plasma anion gap de terminationOrdered By: Jose Silverman on 10-02-2022 Anion gap [Moles/Vol] 12.6 mmol/L 6.0-15.0 [facility] Sodium [Moles/volume] in Ser um or PlasmaOrdered By: Jose Silverman on 10-02-2022 Sodium [Moles/Vol] 137 mmol/L 136-145 [facility] Specific gravity Auto test s trip (U) [Rel density]Ordered By: Jose Silverman on 10-02-2022 Specific gravity (U) [Rel density] 1.021 1.001-1.030 [facility] Squamous epithelial cells de tection in urine sediment by light microscopyOrdered By: Jose Silverman on 10-02-2022 Epithelial cells.squamous LM Ql (Urine sed) 10-19 [HPF] 0-2 [facility] Urea nitrogen [Mass/volume] in Serum or PlasmaOrdered By: Jose Silverman on 10-02-2022 Urea nitrogen [Mass/Vol] 18 mg/dL 7-25 [facility] Urine bacteria detection by automated methodOrdered By: Jose Silverman on 10-02-2022 Bacteria Auto Ql (U) 2+ None Seen [facility] Urine clarity by refractomet ry automatedOrdered By: Jose Silverman on 10-02-2022 Clarity Refractometry automated (U) Clear Clear [facility] Urine glucose measurement by automated test strip (mass/volume)Ordered By: Jose Silverman on 10-02-2022 Glucose Auto test strip (U) [Mass/Vol] Normal mg/dL Normal [facility] Urine hemoglobin detection b y automated test stripOrdered By: Jose Silverman on 10-02-2022 Hemoglobin Auto test strip Ql (U) Negative Negative [facility] Urine leukocyte esterase det ection by automated test stripOrdered By: Jose Silverman on 10-02-2022 Leukocyte esterase Auto test strip Ql (U) 3+ Negative [facility] Urobilinogen Auto test strip (U) [Mass/Vol]Ordered By: Jose Silverman on 10-02-2022 Urobilinogen (U) [Mass/Vol] Normal mg/dL Normal [facility] WBC Auto (Bld) [#/Vol]Ordere d By: Jose Silverman on 10-02-2022 WBC (Bld) [#/Vol] 12.9 10*3/uL 3.8-11.6 [facility] pH Auto test strip (U)Ordere d By: Jose Silverman on 10-02-2022 pH (U) 6.5 [pH] 5.0-9.0 [facility] Quick Strepon 09-25-2022 S. pyogenes Org specific cx Ql (Throat) Negative [employer] Other Quick Strep [employer] Other CHEMISTRYOrdered By: SYSTEM SYSTEM on 09-06-2022 [...] mL/min/1.73 m2 Normal >=59mL/min/1 .73 m2 [facility] Chem S Glucose [Mass/Vol] 82 mg/dL Normal [...] 10 - 20 [facility] Remisol HEMATOLOGYOrdered By: [employer] SYSTEM on 09-06-2022 Basophils/100 WBC (Bld) 0.7 [...] AM) Normal Negative [facility] UA Auto SS [place].plasma/[place].R BC (Bld) [Mass ratio] >30 /HPF Invalid [...] Desc Clean Catch (09/06/22 11:19 AM) Normal [facility] UA Auto SS Urobilinogen Qn (U) [id number] {Georgina'U}/dL Normal 0.0 - 1.0 EU/dL [facility] UA Auto SS WBC Auto Ql (U) Negative (09/06/22 11:19 AM) Normal Negative [facility] UA Auto SS WBC LM.HPF (Urine sed) [#/Area] 0-5 /HPF Normal 0-5/HPF [facility] UA Auto SS BLOOD BANKOrdered By: John Montague on 08-14-2022 ABO/Rh Interp Positive Invalid Interpretation Code [facility] BB Subsection CHEMISTRYOrdered By: SYSTEM SYSTEM on [...] mmol/L Normal 6 - 16 mEq/L [facility] [place] [place] Remisol AST [Catalytic activity/Vol] 16 [iU]/d Normal 5 - 43 Int._Unit/L [facility]isol Bilirubin [Mass/Vol] 0.4 mg/dL Normal 0.0 - 1 .1 mg/dL [facility] Bilirubin.direct [Mass/Vol] 0.1 mg/dL Normal 0.1 - 0.4 mg/dL [facility] Bilirubin.indirect [Mass or moles/Vol] 0.3 mg/dL [...] mL/min/1.73 m2 Normal >=59mL/min/1 .73 m2 [facility] Chem S GFR/1.73 sq M.predicted among non-blacks MDRD (S/P/Bld) [Vol rate/Area] mL/min/1.73 m2 Normal >=59mL/min/1 .73 m2 [facility] Chem S Globulin (S) [Mass/Vol] 3.2 g/dL [...] m[IU]/mL High 1 - 3 mIU/mL [facility] [place] [place] Remisol HEMATOLOGYOrdered By: SYSTEM SYSTEM on 08-14-2022 [...] 16.0 % High 10.9 - 14.2 % [facility] HemeAutoSS Hematocrit (Bld) [Volume fraction] 35.7 % Normal 34.0 - 46.0 % [facility] HemeAutoSS Hemoglobin (Bld) [Mass/Vol] 11.5 g/dL Low [...] PM) Normal Negative [facility] UA Auto SS [place].plasma/[place].R BC (Bld) [Mass ratio] 0-3 /HPF Normal [...] [facility] UA Auto SS Urobilinogen Qn (U) [id number] {Georgina'U}/dL Normal 0.0 - 1.0 EU/dL [facility] UA Auto SS WBC Auto Ql (U) Negative (08/14/22 7:29 PM) Normal Negative [facility] UA Auto SS WBC LM.HPF (Urine sed) [#/Area] 0-5 /HPF Normal 0-5/HPF [facility] UA Auto SS CHLAMYDIA/GONOCOCCUS ALFREDO (SW AB/URINE/PAPon 07-15-2022 Chlamydia trachomatis, ALFREDO Negative Normal Negative [facility] Comment on above: Performed By: #### C T/NGNA #### [facility] [address] [place] [address] Dr. yCril Hendricks Neisseria gonorrhoeae, ALFREDO Negative Normal Negative [facility] Comment on above: Performed By: #### C T/NGNA #### [facility] [address] [address] [address] Cyril Hendricks VAGINITIS/VAGINOSIS DNA PROB Maurice 07-13-2022 Krista species Negative Normal Negative [facility] Comment on above: Performed By: #### U MICRO, UACSIND #### [facility] [address] [place] [address] Dr. Cyril Hendricks Gardnerella vaginalis Positive Abnormal Negative [facility] Comment on above: Performed By: #### U MICRO, UACSIND #### [facility] [address] [place] [address] Dr. Cyril Hendricks Trichomonas vaginalis Negative Normal Negative [facility] Comment on above: Performed By: #### U MICRO, UAIND #### [facility] [address] [place] [address] Dr. yCril Hendricks COVID/FLU RT-PCRon 3 SARS-CoV-2 (COVID-19) RNA ALFREDO+probe Ql (Unsp spec) Negative [employer] Other COVID/FLU RT-PCR Negative [facility] [employer] Other Quick Strepon 06-24-2022 S. pyogenes Org specific cx Ql (Throat) Negative [facility] [employer] Other Quick Strep [facility] [employer] Other CBC AUTO DIFFon 01-08-2022 BASO # 0.1 103/ul Normal 0.0-0.1 [facility] Comment on above: Performed By: #### C BC #### [facility] [address] [place] [address] Dr. Cyril Hendricks Basophils/100 WBC (Bld) 0.4 % Normal 0.2-2.[address] [facility] Comment on above: Performed By: #### C BC #### [facility] [address] [place] [address] Dr. Cyril Hendricks EO # 0.1 103/ul Normal 0.0-0.7 [facility] Comment on above: Performed By: #### C BC #### [facility] [address] [place] [address] Dr. Cyril Hendricks Eosinophils/100 WBC (Bld) 0.9 % Normal 0.9-7.0 [facility] Comment on above: Performed By: #### C BC #### [facility] [address] [place] [address] Dr. Cyril Hendricks Erythrocyte distribution width (RBC) [Ratio] 12.3 % Normal 11.0-15.0 [facility] Comment on above: Performed By: #### C BC #### [facility] [address] [address] [address] Cyril Hendricks Hematocrit (Bld) [Volume fraction] 30.0 % Critically low 36.0-48.0 [facility] Comment on above: Performed By: #### C BC #### [facility] [address] [address] [address] Cyril Hendricks Hemoglobin (Bld) [Mass/Vol] 10.2 g/dL Critically low 12.0-16.0 [facility] Comment on above: Performed By: #### C BC #### [facility] [address] [place] [address] Dr. Cyril Hendricks IG # 0.05 10e3/ul Critically high 0.00-0.03 [facility] Comment on above: Performed By: #### C BC #### [facility] [address] [place] [address] Dr. Cyril Hendricks IG % 0.4 % Normal 0.0-0.5 [facility] Comment on above: Performed By: #### C BC #### [facility] [address] [place] [address] Dr. Cyril Hendricks LYMPH # 2.8 103/ul Normal 1.2-3.8 [facility] Comment on above: Performed By: #### C BC #### [facility] [address] [place] [address] Dr. Cyril Hendricks Lymphocytes/100 WBC (Bld) 19.7 % Critically low 20.5-60.0 [facility] Comment on above: Performed By: #### C BC #### [facility] [address] [place] [address] Dr. Cyril Hendricks MANUAL DIFF REQ NO Normal [facility] Comment on above: Performed By: #### C BC #### [facility] [address] [place] [address] Dr. Cyril Hendricks MCH (RBC) [Entitic mass] 30.6 pg Normal 26.7-34.0 [facility] Comment on above: Performed By: #### C BC #### [facility] [address] [address] [address] Cyril Hendricks MCHC (RBC) [Mass/Vol] 34.0 g/dL Normal 29.9-35.2 [facility] Comment on above: Performed By: #### C BC #### [facility] [address] [place] [address] Dr. Cyril Hendricks MCV (RBC) [Entitic vol] 90.1 fL Normal 81.0-99.[address] [facility] Comment on above: Performed By: #### C BC #### [facility] [address] [place] [address] Dr. Cyril Hendricks MONO # 0.8 103/ul Normal 0.3-0.8 [facility] Comment on above: Performed By: #### C BC #### [facility] [address] [place] [address] Dr. Cyril Hendricks Monocytes/100 WBC (Bld) 5.9 % Normal 1.7-12.[address] [facility] Comment on above: Performed By: #### C BC #### [facility] [address] [place] [address] Dr. Cyril Hendricks NEUT # 10.3 103/ul Critically high 1.4-6.5 [facility] Comment on above: Performed By: #### C BC #### [facility] [address] [place], [place] [id number] Dr. Cyril Hendricks Neutrophils/100 WBC (Bld) 72.7 % Normal 43.0-75.0 [facility] Comment on above: Performed By: #### C BC #### [facility] [address] [place] [address] Dr. Cyril Hendricks Platelet mean volume (Bld) [Entitic vol] 9.8 fL Normal 9.5-13.5 [facility] Comment on above: Performed By: #### C BC #### [facility] [address] [place] [address] Dr. Cyril Hendricks PLT 207 103/ul Normal 150-450 [facility] Comment on above: Performed By: #### C BC #### [facility] [address] [place] [address] Dr. Cyril Hendricks RBC 3.33 106/ul Critically low 4.20-5.40 [facility] Comment on above: Performed By: #### C BC #### [facility] [address] [address] [address] Cyril Hendricks WBC 14.2 103/ul Critically high 4.0-11.0 [facility] Comment on above: Performed By: #### C BC #### [facility] [address] [address] [address] Cyril Hendricks CBC AUTO DIFFon 01-07-2022 BASO # 0.1 103/ul Normal 0.0-0.1 [facility] Comment on above: Performed By: #### U MICRO, UACSIND #### [facility] [address] [address] [address] Cyril Hendricks Basophils/100 WBC (Bld) 0.5 % Normal 0.2-2.[address] [facility] Comment on above: Performed By: #### U MICRO, UACSIND #### [facility] [address] [address] [address] Cyril Hendricks EO # 0.1 103/ul Normal 0.0-0.7 [facility] Comment on above: Performed By: #### U MICRO, UACSIND #### [facility] [address] [address] [address] Cryil Hendricks Eosinophils/100 WBC (Bld) 0.9 % Normal 0.9-7.0 [facility] Comment on above: Performed By: #### U MICRO, UACSIND #### [facility] [address] [address] [address] Cyril Hendricks Erythrocyte distribution width (RBC) [Ratio] 12.4 % Normal 11.0-15.0 [facility] Comment on above: Performed By: #### U MICRO, UACSIND #### [facility] [address] [address] [address] Cyril Hendricks Hematocrit (Bld) [Volume fraction] 34.3 % Critically low 36.0-48.0 [facility] Comment on above: Performed By: #### U MICRO, UACSIND #### [facility] [address] [address] [address] Cyril Hendricks Hemoglobin (Bld) [Mass/Vol] 11.6 g/dL Critically low 12.0-16.0 [facility] Comment on above: Performed By: #### U MICRO, UACSIND #### [facility] [address] [address] [address] Cyril Hendricks IG # 0.06 10e3/ul Critically high 0.00-0.03 [facility] Comment on above: Performed By: #### U MICRO, UACSIND #### [facility] [address] [address] [address] Cyril Hendricks IG % 0.4 % Normal 0.0-0.5 [facility] Comment on above: Performed By: #### U MICRO, UACSIND #### [facility] [address] [address] [address] Cyril Hendricks LYMPH # 3.1 103/ul Normal 1.2-3.8 [facility] Comment on above: Performed By: #### U MICRO, UACSIND #### [facility] [address] [address] [address] Cyril Hendricks Lymphocytes/100 WBC (Bld) 20.4 % Critically low 20.5-60.0 [facility] Comment on above: Performed By: #### U MICRO, UACSIND #### [facility] [address] [address] [address] Cyril Hendricks MANUAL DIFF REQ NO Normal [facility] Comment on above: Performed By: #### U MICRO, UACSIND #### [facility] [address] [address] [address] Cyril Hendricks MCH (RBC) [Entitic mass] 30.6 pg Normal 26.7-34.0 [facility] Comment on above: Performed By: #### U MICRO, UACSIND #### [facility] [address] [address] [address] Cyril Hendricks MCHC (RBC) [Mass/Vol] 33.8 g/dL Normal 29.9-35.2 [facility] Comment on above: Performed By: #### U MICRO, UACSIND #### [facility] [address] [address] [address] Cyril Hendricks MCV (RBC) [Entitic vol] 90.5 fL Normal 81.0-99.[address] [facility] Comment on above: Performed By: #### U MICRO, UACSIND #### [facility] [address] [address] [address] Cyril Hendricks MONO # 0.9 103/ul Critically high 0.3-0.8 [facility] Comment on above: Performed By: #### U MICRO, UACSIND #### [facility] [address] [address] [address] Cyril Hendricks Monocytes/100 WBC (Bld) 6.2 % Normal 1.7-12.[address] [facility] Comment on above: Performed By: #### U MICRO, UACSIND #### [facility] [address] [place] [address] Dr. Cyril Hendricks NEUT # 10.9 103/ul Critically high 1.4-6.5 [facility] Comment on above: Performed By: #### U MICRO, UACSIND #### [facility] [address] [place] [address] Dr. Cyril Hendricks Neutrophils/100 WBC (Bld) 71.6 % Normal 43.0-75.0 [facility] Comment on above: Performed By: #### U MICRO, UACSIND #### [facility] [address] [place] [address] Dr. Cyril Hendricks Platelet mean volume (Bld) [Entitic vol] 11.1 fL Normal 9.5-13.5 [facility] Comment on above: Performed By: #### U MICRO, UACSIND #### [facility] [address] [place] [address] Dr. Cyril Hendricks PLT 240 103/ul Normal 150-450 [facility] Comment on above: Performed By: #### U MICRO, UACSIND #### [facility] [address] [address] [address] Cyril Hendricks RBC 3.79 106/ul Critically low 4.20-5.40 [facility] Comment on above: Performed By: #### U MICRO, UACSIND #### [facility] [address] [address] [address] Cyril Hendricks WBC 15.3 103/ul Critically high 4.0-11.0 [facility] Comment on above: Performed By: #### U MICRO, UACSIND #### [facility] [address] [address] [address] Cyril Hendricks Covid-19 PCR ([facility])on SARS-CoV-2 (COVID-19) RNA ALFREDO+probe Ql (Unsp spec) Not detected Normal NOT DETECTED [facility] Comment on above: Result Comment: When [...] for this test is supported by the Telephone Clerk of Health and Human Service's declaration that [...] used). Performed By: #### H CVPCRR #### [facility] [address] [address] [address] Cyril Hendricks DRUG SCREEN RAPID (URINE)on 01-07-2022 AMP Negative Normal NEGATIVE [facility] Comment on above: Performed By: #### U MICRO, UACSIND #### [facility] [address] [address] [address] Cyril Hendricks BAR Negative Normal NEGATIVE [facility] Comment on above: Performed By: #### U MICRO, UACSIND #### [facility] [address] [address] [address] Cyril Hendricks BUP Negative Normal NEGATIVE [facility] Comment on above: Performed By: #### U MICRO, UACSIND #### [facility] [address] [address] [address] Cyril Hendricks BZO Negative Normal NEGATIVE [facility] Comment on above: Performed By: #### U MICRO, UACSIND #### [facility] [address] [address] [address] Cyril Hendricks DARIN Negative Normal NEGATIVE [facility] Comment on above: Performed By: #### U MICRO, UACSIND #### [facility] [address] [place] [address] Dr. Cyril Hendricks CUT-OFFS SEE BELOW Normal [facility] Comment on above: Result [...] Performed By: #### U MICRO, UACSIND #### [facility] [address] [address] [address] Cyril Hendricks DRUG CUT HEADER DRUG CLASS TEST SYSTEM CUT-OFF CONCENTRATIONS ARE FOLLOWS: Normal [facility] Comment on above: Performed By: #### U MICRO, UACSIND #### [facility] [address] [address] [address] Cyril Hendricks mAMP Negative Normal NEGATIVE [facility] Comment on above: Performed By: #### U MICRO, UACSIND #### [facility] [address] [address] [address] Cyril Hendricks MTD Negative Normal NEGATIVE [facility] Comment on above: Performed By: #### U MICRO, UACSIND #### [facility] [address] [address] [address] Cyril Hendricks OPI Negative Normal NEGATIVE [facility] Comment on above: Performed By: #### U MICRO, UACSIND #### [facility] [address] [place] [address] Dr. Cyril Hendricks OXY Negative Normal NEGATIVE [facility] Comment on above: Performed By: #### U MICRO, UACSIND #### [facility] [address] [place] [address] Dr. Cyril Hendricks PCP Negative Normal NEGATIVE [facility] Comment on above: Performed By: #### U MICRO, UACSIND #### [facility] [address] [place] [address] Dr. Cyril Hendricks PPX Negative Normal NEGATIVE [facility] Comment on above: Performed By: #### U MICRO, UACSIND #### [facility] [address] [place] [address] Dr. Cyril Hendricks TCA Negative Normal NEGATIVE [facility] Comment on above: Performed By: #### U MICRO, UACSIND #### [facility] [address] [place] [address] Dr. Cyril Hendricks THC Negative Normal NEGATIVE [facility] Comment on above: Performed By: #### U MICRO, UACSIND #### [facility] [address] [place] [address] Dr. Cyril Hendricks TYPE AND SCREENon 01-07-2022 TYPE AND SCREEN Negative Normal [facility] Comment on above: Performed By: #### H CVPCRR #### [facility] [address] [place] [address] Dr. Cyril Hendricks CULTURE URINEon 12-29-2021 CULTURE URINE Culture Observations: NO GROWTH. Normal [facility] Comment on above: Performed By: #### U RCX #### [facility] [address] [place] [address] Dr. Cyril Hendricks UA (CLEAN/CATCH) QUALIFICATION ENGINEER/MICRO I F IND.on 12-29-2021 Bilirubin Ql (U) Negative Normal NEGATIVE [facility] Comment on above: Performed By: #### U MICRO, UACSIND #### [facility] [address] [address] [address] Cyril Hendricks Clarity (U) SL CLOUDY Abnormal CLEAR [facility] Comment on above: Performed By: #### U MICRO, UACSIND #### [facility] [address] [address] [address] Cyril Hendricks Color (U) LT. YELLOW Normal YELLOW [facility] Comment on above: Performed By: #### U MICRO, UACSIND #### [facility] [address] [address] [address] Cyril Hendricks Glucose Ql (U) Negative Normal NEGATIVE [facility] Comment on above: Performed By: #### U MICRO, UACSIND #### [facility] [address] [address] [address] Cyril Hendricks Hemoglobin Ql (U) Negative Normal NEGATIVE [facility] Comment on above: Performed By: #### U MICRO, UACSIND #### [facility] [address] [address] [address] Cyril Hendricks Ketones Ql (U) Negative Normal NEGATIVE [facility] Comment on above: Performed By: #### U MICRO, UACSIND #### [facility] [address] [address] [address] Cyril Hendricks LEUKOCYTES LARGE Abnormal NEGATIVE [facility] Comment on above: Performed By: #### U MICRO, UACSIND #### [facility] [address] [address] [address] Cyril Hendricks Nitrite Ql (U) Negative Normal NEGATIVE [facility] Comment on above: Performed By: #### U MICRO, UACSIND #### [facility] [address] [place] [address] Dr. Cyril Hendricks pH (U) 6.5 [pH] Normal 5-9 [facility] Comment on above: Performed By: #### U MICRO, UACSIND #### [facility] [address] [place] [address] Dr. Cyril Hendricks SPEC GRAVITY 1.010 Normal 1.005-<=1.02 5 [facility] Comment on above: Performed By: #### U MICRO, UACSIND #### [facility] [address] [place] [address] Dr. Cyril Hendricks UA PROTEIN Negative Normal NEGATIVE/ TRACE [facility] Comment on above: Performed By: #### U MICRO, UACSIND #### [facility] [address] [place] [address] Dr. Cyril Hendricks UR MICRO IND INDICATED Normal [facility] Comment on above: Performed By: #### U MICRO, UACSIND #### [facility] [address] [place] [address] Dr. Cyril Hendricks Urobilinogen Qn (U) 0.2 {Georgina'U}/dL Normal 0.2 - 1. 0 [facility] Comment on above: Performed By: #### U MICRO, UACSIND #### [facility] [address] [place] [address] Dr. Cyril Hendricks URINE MICROSCOPIC ONLYon BACTERIA SMALL Abnormal NONE SEEN [facility] Comment on above: Performed By: #### U MICRO, UACSIND #### [facility] [address] [place] [address] Dr. Cyril Hendricks Bacteria identified Cx Nom (U) INDICATED Normal [facility] Comment on above: Performed By: #### U MICRO, UACSIND #### [facility] [address] [place] [address] Dr. Cyril Hendricks CAST NONE SEEN Normal NONE SEEN [facility] Comment on above: Performed By: #### U MICRO, UACSIND #### [facility] [address] [place] [address] Dr. Cyril Hendricks Crystals LM Nom (Urine sed) NONE SEEN Normal NONE SEEN [facility] Comment on above: Performed By: #### U MICRO, UACSIND #### [facility] [address] [place] [address] Dr. Cyril Hendricks Epithelial cells LM Ql (Urine sed) MANY Abnormal NONE SEEN /RARE [facility] Comment on above: Performed By: #### U MICRO, UACSIND #### [facility] [address] [place] [address] Dr. Cyril Hendricks MUCOUS NONE SEEN Normal NONE SEEN [facility] Comment on above: Performed By: #### U MICRO, UACSIND #### [facility] [address] [place] [address] Dr. Cyril Hendricks RBC 0-2 Normal 0-2 [facility] Comment on above: Performed By: #### U MICRO, UACSIND #### [facility] [address] [place] [address] Dr. Cyril Hendricks WBC 10-20 Abnormal NONE SEEN [facility] Comment on above: Performed By: #### U MICRO, UACSIND #### [facility] [address] [place] [address] Dr. Cyril Hendricks GROUP B STREP CULTUREon 12-07 S. agalactiae Ag Ql (Unsp spec) Culture Observations: NEGATIVE FOR GROUP B STREPTOCOCCUS. Normal [facility] Comment on above: Performed By: #### G BSCX #### [facility] [address] [place] [address] Dr. Cyril Hendricks SSAon 12-13-2021 SSA <0.3 Normal <7.0 [facility] Comment on above: Result Comment: Reference Range: <7.0 Negative 7.0-10.0 Equivocal >10.0 Positive Performed By: #### S SARO, TSH, FT4, SSBLA #### [email or web address] [address] [place] [address] [id number] Bow Maker: Homer Hoffman MD SSBon 12-13-2021 SSB <0.3 Normal <7.0 [facility] Comment on above: Result Comment: Reference Range: <7.0 Negative 7.0-10.0 Equivocal >10.0 Positive Performed By: #### S SARO, TSH, FT4, SSBLA #### [email or web address] [address] [place] [id number] Bow Maker: Homer Hoffman MD No Panel Informationon 12-12 [facility] T4, Freeon 12-12-2021 Thyroxine, Free 0.98 ng/dL 0.93 - 1.70 ng/dL [facility] TSHon 12-12-2021 TSH Qn 4.35 m[IU]/L [facility] Thyroid Stim. Horm.on 2021 Thyroid Stim. Horm. 4.35 uIU/mL Normal 0.30-5.00 [facility] Comment on above: Performed By: #### S SARO, TSH, FT4, SSBLA #### [email or web address] [facility] [place] [address] Bow Maker: Homer Hoffman MD Thyroxine, Freeon 12-12-2021 Thyroxine, Free 0.98 ng/dL Normal 0.93-1.70 [facility] Comment on above: Performed By: #### S SARO, TSH, FT4, SSBLA #### [email or web address] [address] [place], [place] [id number] Bow Maker: Homer Hoffman MD US PREG BIOPHY W [...] by: SOFIA KABA Date: 2021-11-27 13:55 Normal [facility] COVID + FLU Quick Testingon 11-13-2021 SARS-CoV-2 (COVID-19) RNA ALFREDO+probe Ql (Unsp spec) Negative [employer] Other COVID + FLU Quick Testing Negative [employer] Other GLUCOSE - 1HRon 10-23-2021 Glucose [Mass/Vol] 83 mg/dL Normal 74-106 [facility] Comment on above: Performed By: #### G LU1HR #### [facility] [address] [place] [address] Dr. Cyril Hendricks CHLAMYDIA/GONOCOCCUS ALFREDO (SW AB/URINE/PAPon 10-05-2021 Chlamydia trachomatis, ALFREDO Negative Normal Negative [facility] Comment on above: Performed By: #### C T/NGNA #### [facility] [address] [place] [address] Dr. Cyril Hendricks Neisseria gonorrhoeae, ALFREDO Negative Normal Negative [facility] Comment on above: Performed By: #### C T/NGNA #### [facility] [address] [place] [address] Dr. Cyril Hendricks VAGINITIS/VAGINOSIS DNA PROB Maurice 10-04-2021 Krista species Positive Abnormal Negative [facility] Comment on above: Performed By: #### H CVPCRR #### [facility] [address] [place] [address] Dr. Cyril Hendricks Gardnerella vaginalis Negative Normal Negative [facility] Comment on above: Performed By: #### H CVPCRR #### [facility] [address] [place] [address] Dr. Cyril Hendricks Trichomonas vaginalis Negative Normal Negative [facility] Comment on above: Performed By: #### H CVPCRR #### [facility] [address] [place] [address] Dr. Cyril Hendricks HEP B SURFACE ANTIGEN SCREEN on 10-03-2021 HBsAg Screen Negative Normal Negative [facility] Comment on above: Performed By: #### H CVPCRR #### [facility] [address] [place] [address] Dr. Cyril Hendricks HEPATITIS C VIRUS AB W/ REFL EX QUANTon 10-03-2021 HCV AB <0.1 Normal 0.0-0.9 [facility] Comment on above: Performed By: #### H CVPCRR #### [facility] [address] [address] [address] Cyril Hendricks Interpretation: Comment Normal [facility] Comment on above: Result Comment: Nega tive Not infected with HCV, unless recent infection is suspected or other evidence exists to indicate HCV infection. Performed By: #### H CVPCRR #### [facility] [address] [address] [address] Cyril Hendricks HIV 1 AND 2 WITH REFLEXon HIV Screen 4th Generation wRfx Non-Reactive Normal Non Reactive [facility] Comment on above: Result Comment: HIV Negative HIV-1/HIV-2 antibodies and HIV-1 p24 antigen were NOT detected. There is no laboratory evidence of HIV infection. Performed By: #### H IV12 #### [facility] [address] [place] [address] Dr. Cyril Hendricks RPR QUANTon 10-03-2021 Rapid Plasma Reagin, Quant Non-Reactive Normal NonRea<1:1 [facility] Comment on above: Result Comment: Plea se Note: This test does not meet current guidelines for screening and diagnosis of syphilis. This test is intended for following treatment response in patients being treated for syphilis infection. To screen for syphilis infection, a reflex cascade that includes both RPR and a treponema-specific assay should be utilized, such as Treponema pallidum (Syphilis) Screening [place] (395244) or Rapid Plasma Reagin (RPR) Test With Reflex to Quantitative RPR and Confirmatory Treponema pallidum Antibodies ([id number]). Performed By: #### U MICRO, UACSIND #### [facility] [address] [place] [address] Dr. Cyril Hendricks RUBELLA AB IGGon 10-03-2021 Rubella Antibodies, IgG <0.90 Critically low Immune > 0.99 [facility] Comment on above: Result Comment: Non- immune <0.90 Equivocal 0.90 - 0.99 Immune >0.99 Performed By: #### U MICRO, UACSIND #### [facility] [address] [place] [address] Dr. Cyril Hendricks CBC AUTO DIFFon 10-02-2021 BASO # 0.1 103/ul Normal 0.0-0.1 [facility] Comment on above: Performed By: #### U MICRO, UACSIND #### [facility] [address] [place] [address] Dr. Cyril Hendricks Basophils/100 WBC (Bld) 0.4 % Normal 0.2-2.[address] [facility] Comment on above: Performed By: #### U MICRO, UACSIND #### [facility] [address] [place] [address] Dr. Cyril Hendricks EO # 0.1 103/ul Normal 0.0-0.7 [facility] Comment on above: Performed By: #### U MICRO, UACSIND #### [facility] [address] [place] [address] Dr. Cyril Hendricks Eosinophils/100 WBC (Bld) 1.1 % Normal 0.9-7.0 [facility] Comment on above: Performed By: #### U MICRO, UACSIND #### [facility] [address] [place] [address] Dr. Cyril Hendricks Erythrocyte distribution width (RBC) [Ratio] 13.5 % Normal 11.0-15.0 [facility] Comment on above: Performed By: #### U MICRO, UACSIND #### [facility] [address] [place] [address] Dr. Cyril Hendricks Hematocrit (Bld) [Volume fraction] 34.5 % Critically low 36.0-48.0 [facility] Comment on above: Performed By: #### U MICRO, UACSIND #### [facility] [address] [place] [address] Dr. Cyril Hendricks Hemoglobin (Bld) [Mass/Vol] 12.0 g/dL Normal 12.0-16.0 [facility] Comment on above: Performed By: #### U MICRO, UACSIND #### [facility] [address] [place] [address] Dr. Cyril Hendricks IG # 0.04 10e3/ul Critically high 0.00-0.03 [facility] Comment on above: Performed By: #### U MICRO, UACSIND #### [facility] [address] [address] [address] Cyril Hendricks IG % 0.3 % Normal 0.0-0.5 [facility] Comment on above: Performed By: #### U MICRO, UACSIND #### [facility] [address] [address] [address] Cyril Hendricks LYMPH # 2.6 103/ul Normal 1.2-3.8 [facility] Comment on above: Performed By: #### U MICRO, UACSIND #### [facility] [address] [address] [address] Cyril Hendricks Lymphocytes/100 WBC (Bld) 21.3 % Normal 20.5-60.0 [facility] Comment on above: Performed By: #### U MICRO, UACSIND #### [facility] [address] [place] [address] Dr. Cyril Hendricks MANUAL DIFF REQ NO Normal [facility] Comment on above: Performed By: #### U MICRO, UACSIND #### [facility] [address] [place] [address] Dr. Cyril Hendricks MCH (RBC) [Entitic mass] 32.5 pg Normal 26.7-34.0 [facility] Comment on above: Performed By: #### U MICRO, UACSIND #### [facility] [address] [place] [address] Dr. Cyril Hendricks MCHC (RBC) [Mass/Vol] 34.8 g/dL Normal 29.9-35.2 [facility] Comment on above: Performed By: #### U MICRO, UACSIND #### [facility] [address] [place] [address] Dr. Cyril Hendricsk MCV (RBC) [Entitic vol] 93.5 fL Normal 81.0-99.[address] [facility] Comment on above: Performed By: #### U MICRO, UACSIND #### [facility] [address] [place] [address] Dr. Cyril Hendricks MONO # 0.8 103/ul Normal 0.3-0.8 [facility] Comment on above: Performed By: #### U MICRO, UACSIND #### [facility] [address] [address] [address] Cyril Hendricks Monocytes/100 WBC (Bld) 6.2 % Normal 1.7-12.[address] [facility] Comment on above: Performed By: #### U MICRO, UACSIND #### [facility] [address] [place] [address] Dr. Cyril Hendricks NEUT # 8.6 103/ul Critically high 1.4-6.5 [facility] Comment on above: Performed By: #### U MICRO, UACSIND #### [facility] [address] [place] [address] Dr. Cyril Hendricks Neutrophils/100 WBC (Bld) 70.7 % Normal 43.0-75.0 [facility] Comment on above: Performed By: #### U MICRO, UACSIND #### [facility] [address] [place] [address] Dr. Cyril Hendricks Platelet mean volume (Bld) [Entitic vol] 9.1 fL Critically low 9.5-13.5 [facility] Comment on above: Performed By: #### U MICRO, UACSIND #### [facility] [address] [place] [address] Dr. Cyril Hendricks PLT 257 103/ul Normal 150-450 [facility] Comment on above: Performed By: #### U MICRO, UACSIND #### [facility] [address] [place] [address] Dr. Cyril Hendricks RBC 3.69 106/ul Critically low 4.20-5.40 [facility] Comment on above: Performed By: #### U MICRO, UACSIND #### [facility] [address] [place] [address] Dr. Cyril Hendricks WBC 12.2 103/ul Critically high 4.0-11.0 [facility] Comment on above: Performed By: #### U MICRO, UACSIND #### [facility] [address] [place] [address] Dr. Cyril Hendricks CULTURE URINEon 10-02-2021 CULTURE URINE Culture Observations: MODERATE GROWTH OF MIXED GENITAL DRAGAN. NO POTENTIAL PATHOGENS SEEN. Normal [facility] Comment on above: Performed By: #### H CVPCRR #### [facility] [address] [address] [address] Cyril Hendricks GLYCOHEMOGLOBIN A1Con 2021 ADA RECOMMENDATION SEE BELOW Normal [facility] Comment on above: Result Comment: ADA RECOMMENDED LIMIT 4.0 - 6.0 ADA THERAPEUTIC TARGET < 7.0 ACTION SUGGESTED > 7.0 Performed By: #### H CVPCRR #### [facility] [address] [address] [address] Cyril Hendricks Glucose [Mass/Vol] 80 mg/dL Normal [facility] Comment on above: Performed By: #### H CVPCRR #### [facility] [address] [address] [address] Cyril Hendricks HbA1c (Bld) [Mass fraction] 4.4 % Critically low 4.5-6.2 [facility] Comment on above: Performed By: #### H CVPCRR #### [facility] [address] [address] [address] Cyril Hendricks TYPE AND SCREENon 10-02-2021 TYPE AND SCREEN Negative Normal [facility] Comment on above: Performed By: #### H CVPCRR #### [facility] [address] [place] [address] Dr. Cyril Hendricks US PREG PLACENTAon 2 [...] SOFIA KABA Date: 2021-10-02 10:47 Normal [facility] US PREG ANATOMY SINGLEon US PREG [...] (44% by ultrasound, 29% by expected) FL/AC: [id number] FL/BPD: [id number] HC/AC: 1.450917 GESTATIONAL AGE: Age by EDC: 21 weeks, 3 days NOY by EDC: 01/12/2022 Age by current US: 21 weeks, 1 day NOY by current US: 01/14/2022 IMPRESSION: 1. Single live intrauterine with growth detailed above. 2. Posterior, low-lying placenta. Electronically authenticated by: MARS FRANKEL Date: 2021-09-04 16:30 Normal [facility] Vital Signs Date Time Vital Sign Value Performing Clinician Facility 03-29-2024 11:50-0400 Body mass index (BMI) [Ratio] 29.7 kg/m2 [facility] Phone: [facility] 03-29-2024 11:50-0400 Body weight 83.46 kg [facility] Phone: [facility] 03-29-2024 11:50-0400 Diastolic blood pressure 72 mm[Hg] [facility] Phone: [facility] 03-29-2024 11:50-0400 Systolic blood pressure 112 mm[Hg] [facility] Phone: [facility] 03-15-2024 12:04-0400 Body mass index (BMI) [Ratio] 29.5 kg/m2 Shabana Mercedes ROSEANN Work Phone: [facility] 03-15-2024 12:04-0400 Body weight 82.92 kg Shabana Mercedes PA Work Phone: [facility] 03-15-2024 12:04-0400 Diastolic blood pressure 70 mm[Hg] Shabana Mercedes PA Work Phone: [facility] 03-15-2024 12:04-0400 Systolic blood pressure 120 mm[Hg] Shabana Mercedes PA Work Phone: [facility] 02-03-2024 09:23-0400 Body temperature 97.88 [degF] [facility] 02-03-2024 09:23-0400 Diastolic blood pressure 70 mm[Hg] [facility] 02-03-2024 09:23-0400 Heart rate 85 /min [facility] 02-03-2024 09:23-0400 Respiratory rate 18 /min [facility] 02-03-2024 09:23-0400 SaO2% (BldA) [Mass fraction] 99 % [facility] 02-03-2024 09:23-0400 Systolic blood pressure 106 mm[Hg] [facility] 09-23-2023 09:16-0400 Body temperature 98.42 [degF] [facility] 09-23-2023 09:16-0400 Diastolic blood pressure 68 mm[Hg] [facility] 09-23-2023 09:16-0400 Heart rate 82 /min [facility] 09-23-2023 09:16-0400 Respiratory rate 18 /min [facility] 09-23-2023 09:16-0400 SaO2% (BldA) [Mass fraction] 97 % [facility] 09-23-2023 09:16-0400 Systolic blood pressure 98 mm[Hg] [facility] 08-27-2023 12:24-0400 Diastolic blood pressure 61 mm[Hg] [facility] 08-27-2023 12:24-0400 Heart rate 77 /min [facility] 08-27-2023 12:24-0400 Mean blood pressure 72 mm[Hg] [facility] 08-27-2023 12:24-0400 Respiratory rate 16 /min [facility] 08-27-2023 12:24-0400 SaO2% (BldA) [Mass fraction] 97 % [facility] 08-27-2023 12:24-0400 Systolic blood pressure 93 mm[Hg] [facility] 08-27-2023 11:30-0400 Diastolic blood pressure 69 mm[Hg] [facility] 08-27-2023 11:30-0400 Heart rate 74 /min [facility] 08-27-2023 11:30-0400 Mean blood pressure 82 mm[Hg] [facility] 08-27-2023 11:30-0400 Respiratory rate 16 /min [facility] 08-27-2023 11:30-0400 SaO2% (BldA) [Mass fraction] 99 % [facility] 08-27-2023 11:30-0400 Systolic blood pressure 107 mm[Hg] [facility] 08-27-2023 10:30-0400 Diastolic blood pressure 62 mm[Hg] [facility] 08-27-2023 10:30-0400 Heart rate 91 /min [facility] 08-27-2023 10:30-0400 Mean blood pressure 77 mm[Hg] [facility] 08-27-2023 10:30-0400 Respiratory rate 18 /min [facility] 08-27-2023 10:30-0400 SaO2% (BldA) [Mass fraction] 100 % [facility] 08-27-2023 10:30-0400 Systolic blood pressure 107 mm[Hg] [facility] 08-27-2023 09:41-0400 Body temperature 98.6 [degF] [facility] 08-27-2023 09:41-0400 Heart rate 80 /min [facility] 01-04-2023 00:03-0400 Body temperature 98.78 [degF] [facility] 01-04-2023 00:03-0400 Diastolic blood pressure 54 mm[Hg] [facility] 01-04-2023 00:03-0400 Heart rate 97 /min [facility] 01-04-2023 00:03-0400 Mean blood pressure 70 mm[Hg] [facility] 01-04-2023 00:03-0400 Respiratory rate 18 /min [facility] 01-04-2023 00:03-0400 SaO2% (BldA) [Mass fraction] 94 % [facility] 01-04-2023 00:03-0400 Systolic blood pressure 102 mm[Hg] [facility] 01-03-2023 23:00-0400 Body temperature 100.04 [degF] [facility] 01-03-2023 23:00-0400 Diastolic blood pressure 62 mm[Hg] [facility] 01-03-2023 23:00-0400 Heart rate 100 /min [facility] 01-03-2023 23:00-0400 Mean blood pressure 75 mm[Hg] [facility] 01-03-2023 23:00-0400 Systolic blood pressure 100 mm[Hg] [facility] 01-03-2023 22:42-0400 Body temperature 100.76 [degF] [facility] 01-03-2023 22:42-0400 Diastolic blood pressure 59 mm[Hg] [facility] 01-03-2023 22:42-0400 Heart rate 105 /min [facility] 01-03-2023 22:42-0400 Respiratory rate 20 /min [facility] 01-03-2023 22:42-0400 SaO2% (BldA) [Mass fraction] 99 % [facility] 01-03-2023 22:42-0400 Systolic blood pressure 96 mm[Hg] [facility] 10-02-2022 21:29-0400 Diastolic blood pressure 72 mm[Hg] PHYSICIAN NO [facility] 10-02-2022 21:29-0400 Heart rate 94 /min PHYSICIAN NO [facility] 10-02-2022 21:29-0400 Respiratory rate 18 /min PHYSICIAN NO [facility] 10-02-2022 21:29-0400 SaO2% (BldA) [Mass fraction] 98 % PHYSICIAN NO [facility] 10-02-2022 21:29-0400 Systolic blood pressure 141 mm[Hg] PHYSICIAN NO [facility] 10-02-2022 17:03-0400 Body height 170.18 cm PHYSICIAN NO [facility] 10-02-2022 17:03-0400 Body temperature 98.3 [degF] PHYSICIAN NO [facility] 10-02-2022 17:03-0400 Body weight 76.4 kg PHYSICIAN NO [facility] 09-25-2022 13:25-0400 Body height 170.18 cm Viet Yuri Other [employer] Other 09-25-2022 13:25-0400 Body mass index (BMI) [Ratio] 26.62 kg/m2 Viet Welch Other [employer] Other 09-25-2022 13:25-0400 Body temperature 98.2 [degF] Viet Welch Other [employer] Other 09-25-2022 13:25-0400 Body weight 77.11 kg Viet Welch Other [employer] Other 09-25-2022 13:25-0400 Diastolic blood pressure 68 mm[Hg] Viet eWlch Other [employer] Other 09-25-2022 13:25-0400 Respiratory rate 18 /min Viet Welch Other [employer] Other 09-25-2022 13:25-0400 SaO2% (BldA) [Mass fraction] 98 % Viet Welch Other [facility] [employer] Other 09-25-2022 13:25-0400 Systolic blood pressure 107 mm[Hg] Viet Welch Other [facility] [employer] Other 09-06-2022 13:54-0400 Diastolic blood pressure 72 mm[Hg] [facility] 09-06-2022 13:54-0400 Heart rate 60 /min [facility] 09-06-2022 13:54-0400 Respiratory rate 16 /min [facility] 09-06-2022 13:54-0400 SaO2% (BldA) [Mass fraction] 100 % [facility] 09-06-2022 13:54-0400 Systolic blood pressure 103 mm[Hg] [facility] 09-06-2022 11:41-0400 Diastolic blood pressure 65 mm[Hg] [facility] 09-06-2022 11:41-0400 Heart rate 58 /min [facility] 09-06-2022 11:41-0400 Mean blood pressure 77 mm[Hg] [facility] 09-06-2022 11:41-0400 Respiratory rate 16 /min [facility] 09-06-2022 11:41-0400 SaO2% (BldA) [Mass fraction] 100 % [facility] 09-06-2022 11:41-0400 Systolic blood pressure 102 mm[Hg] [facility] 09-06-2022 10:42-0400 Body temperature 98.24 [degF] [facility] 09-06-2022 10:42-0400 bodymassindex 1.17 [facility] Comment on above: Result Comment: ^~:!ZScore [facility] 09-06-2022 10:42-0400 Diastolic blood pressure 71 mm[Hg] [facility] 09-06-2022 10:42-0400 Heart rate 73 /min [facility] 09-06-2022 10:42-0400 Height/Length Percentile 84.89 [facility] Comment on above: Result Comment: ^~:!Percentile [facility] 09-06-2022 10:42-0400 Height/Length Z-Score 1.03 [facility] Comment on above: Result Comment: ^~:!ZSRebelle [facility] 09-06-2022 10:42-0400 Respiratory rate 16 /min [facility] 09-06-2022 10:42-0400 SaO2% (BldA) [Mass fraction] 98 % [facility] 09-06-2022 10:42-0400 Systolic blood pressure 111 mm[Hg] [facility] 09-06-2022 10:42-0400 weight 1.47 [facility] Comment on above: Result Comment: ^~:![employer]Score [facility] 09-06-2022 10:42-0400 Weight Percentile 92.90 % [facility] Comment on above: Result Comment: ^~:!Percentile Source [facility] 08-14-2022 21:30-0500 Diastolic blood pressure 79 mm[Hg] Bob Llanos [facility] 08-14-2022 21:30-0500 Heart rate 87 /min [facility] Llan[facility] 08-14-2022 21:30-0500 Mean blood pressure 93 mm[Hg] [facility] Llanos [facility] 08-14-2022 21:30-0500 Nursing Progress Note Reason Other: pt to US via stretcher at this time. [facility] Llan[facility] 08-14-2022 21:30-0500 Respiratory rate 16 /min [facility] L[facility] 08-14-2022 21:30-0500 SaO2% (BldA) [Mass fraction] 100 % Bob Llanos [facility] 08-14-2022 21:30-0500 Systolic blood pressure 120 mm[Hg] [facility] Llanos [facility] 08-14-2022 19:20-0500 Body temperature 98.96 [degF] [facility] Llan[facility] 08-14-2022 19:20-0500 bodymassindex 1.17 [facility] Llan[facility] Comment on above: Result Comment: ^~:!ZScore Source [facility] 08-14-2022 19:20-0500 Diastolic blood pressure 61 mm[Hg] [facility] Llanos [facility] 08-14-2022 19:20-0500 Heart rate 98 /min [facility] L[facility] 08-14-2022 19:20-0500 Height/Length Percentile 84.91 [facility] Llanos [facility] Comment on above: Result Comment: ^~:!Percentile Source [facility] 08-14-2022 19:20-0500 Height/Length Z-Score 1.03 Bob Llanos [facility] Comment on above: Result Comment: ^~:!ZScore [facility] 08-14-2022 19:20-0500 Respiratory rate 16 /min [facility] Llanos [facility] 08-14-2022 19:20-0500 SaO2% (BldA) [Mass fraction] 99 % Bob Llanos [facility] 08-14-2022 19:20-0500 Systolic blood pressure 114 mm[Hg] [facility] Llan[facility] 08-14-2022 19:20-0500 weight 1.47 Bob Llanos [facility] Comment on above: Result Comment: ^~:!ZScore [facility] 08-14-2022 19:20-0500 Weight Percentile 92.94 % Bob Llanos [facility] Comment on above: Result Comment: ^~:!Percentile Source [facility] 06-24-2022 13:30-0500 Body height 170.18 cm Viet Welch Other [employer] Other 06-24-2022 13:30-0500 Body mass index (BMI) [Ratio] 26.62 kg/m2 Viet Welch Other [facility] [employer] Other 06-24-2022 13:30-0500 Body temperature 97.8 [degF] Viet Welch Other [facility] Other 06-24-2022 13:30-0500 Body weight 77.11 kg Viet Welch Other [facility] [employer] Other 06-24-2022 13:30-0500 Diastolic blood pressure 63 mm[Hg] Viet Welch Other [facility] Other 06-24-2022 13:30-0500 Respiratory rate 18 /min Viet Welch Other [facility] [employer] Other 06-24-2022 13:30-0500 SaO2% (BldA) [Mass fraction] 98 % Viet Welch Other [facility] Other 06-24-2022 13:30-0500 Systolic blood pressure 97 mm[Hg] Viet Welch Other [facility] [employer] Other 11-13-2021 14:05-0400 Body height 170.18 cm Michael Oneil Other [employer] Other 11-13-2021 14:05-0400 Body mass index (BMI) [Ratio] 26.62 kg/m2 Michael Oneil Other [facility] Other 11-13-2021 14:05-0400 Body temperature 98.4 [degF] Michael Oneil Other [facility] Other 11-13-2021 14:05-0400 Body weight 77.11 kg Michael Oneil Other [facility] Other 11-13-2021 14:05-0400 Respiratory rate 18 /min Michael Oneil Other [facility] [employer] Other 11-13-2021 14:05-0400 SaO2% (BldA) [Mass fraction] 98 % Michael Oneil Other [facility] Other 11-06-2021 15:45-0400 Body height Kendra Witt Other [facility] Other 11-06-2021 15:45-0400 Body mass index (BMI) [Ratio] 26.62 kg/m2 Kendra Witt Other [facility] [employer] Other 11-06-2021 15:45-0400 Body weight 77.11 kg Kendra Witt Other [facility] Other 11-06-2021 15:45-0400 Respiratory rate 20 /min Kendra Witt Other [facility] [employer] Other 11-06-2021 15:45-0400 SaO2% (BldA) [Mass fraction] 98 % Kendra Witt Other [employer] Other Encounters Encounter Date Encounter Type Care Provider Facility Start: 04-02-2024 End: 04-02-2024 Clinisync Result Encounter Juvenal Maurilio DO Work Phone: [facility] Unsolicited Start: 04-02-2024 End: 04-02-2024 Clinisync Result Encounter Juvenal Maurilio DO Work Phone: [facility] Unsolicited Start: 04-02-2024 End: 04-02-2024 ambulatory Juvenal Maurilio Facility:[facility] Start: 04-01-2024 End: 04-01-2024 Clinisync Result Encounter Juvenal Maurilio DO Work Phone: [facility] Unsolicited Start: 04-01-2024 End: 04-01-2024 Clinisync Result Encounter Juvenal Maurilio DO Work Phone: [facility] Unsolicited Start: 03-29-2024 End: 03-29-2024 Bamboo flowsheet Juvenal [...] Phone: [facility] Comment on above: 36 weeks gestation o f ; Third trimester ; Gastroesophageal reflux in Start: 03-15-2024 End: 03-15-2024 Bamboo flowsheet Shabana WHITFIELD Work Phone: [facility] Start: 03-15-2024 End: 03-15-2024 Bamboo flowsheet Shabana WHITFIELD Work Phone: [facility] Start: 03-15-2024 End: 03-15-2024 ambulatory SHABANA MERCEDES Not Available Start: 03-15-2024 End: 03-15-2024 Office outpatient visit 15 minutes Shabana WHITFIELD Work Phone: [facility] Comment on above: 35 weeks gestation o f ; Third trimester Start: 03-01-2024 End: 03-01-2024 ambulatory JUVENAL MAURILIO Not Available Start: 02-16-2024 End: 02-16-2024 ambulatory SHABANA ELLIS Not Available Start: 02-03-2024 End: 02-03-2024 Emergency department patient visit Siva Schulte [facility] Start: 01-26-2024 End: 01-26-2024 ambulatory JUVENAL MAURILIO Not Available Start: 12-29-2023 End: 12-29-2023 ambulatory SHABANA ELLIS Not Available Start: 12-22-2023 End: 12-22-2023 ambulatory JUVENAL R [facility] Start: 12-01-2023 End: 12-01-2023 ambulatory JUVENAL MAURILIO Not Available Start: 11-10-2023 End: 11-10-2023 ambulatory JUVENAL R [facility] Start: 10-27-2023 End: 10-27-2023 ambulatory SHABANA ELLIS Not Available Start: 09-29-2023 End: 09-29-2023 ambulatory JUVENAL MAURILIO Not Available Start: 09-23-2023 End: 09-23-2023 Emergency department patient visit Wil Chandra [facility] Start: 09-04-2023 End: 09-04-2023 ambulatory JUVENAL MAURILIO Not Available Start: 08-27-2023 End: 08-27-2023 Emergency department patient visit Emily Harper [facility] Start: 08-18-2023 End: 08-18-2023 ambulatory SELAM ELSA Facility:[facility] Start: 01-03-2023 End: 01-04-2023 Emergency department patient visit Siva Schulte [facility] Start: 12-12-2022 End: 12-12-2022 ambulatory Kenneth Mills Other [employer] Other Start: 12-12-2022 Telephone encounter Kenneth Mills [facility] Start: 10-02-2022 End: 10-02-2022 Emergency department patient visit PHYSICIAN SJ LERNER [facility] Work Phone: Start: 09-25-2022 End: 09-25-2022 ambulatory Viet Welch Other [employer] Other Start: 09-25-2022 Office outpatient visit 15 minutes Viet Welch [facility] Start: 09-06-2022 End: 09-06-2022 Emergency department patient visit Wil Chandra [facility] Start: 08-14-2022 End: 08-14-2022 Emergency department patient visit Bob Llanos [facility] Start: 07-11-2022 End: 07-11-2022 ambulatory ROSEANN MERCEDES Facility:[facility] Start: 06-24-2022 End: 06-24-2022 ambulatory Viet Welch Other [facility] [employer] Other Start: 06-24-2022 Office outpatient visit 15 minutes Viet Welch [facility] Start: 01-11-2022 End: 01-11-2022 ambulatory NONE LISTED REQUEST Facility:[facility] Start: 01-07-2022 End: 01-09-2022 Evaluation and management of inpatient DR RENATA GEORGES Facility:[facility] Start: 12-29-2021 End: 12-29-[address] JUVENAL THORPE Facility:[facility] Start: 12-19-2021 End: 12-19-[address] JUVENAL THORPE Facility:[facility] Start: 12-12-2021 End: 12-13-2021 [facility] Start: 12-12-2021 End: 12-12-2021 Subsequent hospital visit by physician [facility] Start: 11-27-2021 End: 11-27-[address] SOFIA KABA Facility:[facility] Start: 11-13-2021 End: 11-13-2021 ambulatory Michael Oneil Other [employer] Other Start: 11-13-2021 Office outpatient visit 15 minutes Michael Oneil [facility] Start: 11-06-2021 End: 11-06-2021 ambulatory Kendra Witt Other [employer] Other Start: 11-06-2021 Office outpatient visit 25 minutes Kendra Eduar [facility] Start: 10-23-2021 End: 10-24-[address] JUVENAL THORPE Facility:[facility] Start: 10-02-2021 End: 10-03-[address] SOFIA KABA Facility:[facility] Start: 09-04-2021 End: 09-05-[address] RENATA GEORGES Facility:[facility] Procedures Date Procedure Procedure Detail Performing Clinician Start: 04-02-2024 ALL CBC WITH AUTO DIFF Juvenal Thorpe DO Work Phone: Start: 04-01-2024 [facility] CBC WITH PLATEL ET NO DIFFERENTIAL Juvenal Thorep DO Work Phone: Start: 03-29-2024 Urnls dip stick/tabl et rgnt non-auto w/o micrscp Juvenal Maurilio DO Work Phone: Start: 03-22-2024 Urnls dip stick/tabl et rgnt non-auto w/o micrscp Juvenal Lio DO Work Phone: Start: 03-15-2024 Urnls dip [...] AM EDT Routine [facility] [address] [place] [address] Juvenal Thorpe, [address] [place] [place], [place] [id number] [facility] Start: 03-22-2024 End: 03-22-2025 Strep B DNA probe, amplification Strep B DNA probe, amplification Lab Routine Third trimester Expected: 03/22/2024 (Approximate), Expires: 03/22/2025 [facility] Work Phone: Comment on above: Expected: 03/22/2024 (Approximate), Expires: 03/22/2025 Start: 03-22-2024 End: 03-22-2024 Patient encounter procedure 03/22/2024 11:10 AM EDT Routine [facility] [address] [place] [id number] Juvenal Thorpe DO [address] [place] [address] [facility] Start: 10-02-2022 Bacteria identified in Urine by Culture Urine Culture [facility] Start: 02-07-2022 Influenza vaccination Flu vaccine (# 1) [facility] Start: 01-09-2022 End: 01-09-2022 Patient encounter procedure 01/09/2022 Routine Perinatology [facility] Start: 01-02-2022 End: 01-02-2022 Patient encounter procedure 01/02/2022 Routine Perinatology [facility] Start: 12-26-2021 End: 12-26-2021 Patient encounter procedure 12/26/2021 Routine Perinatology [facility] Start: 12-20-2021 End: 12-20-2021 Patient encounter procedure 12/20/2021 Routine Perinatology [facility] Start: 2021 DTaP/Tdap/Td vaccine (1 - Tdap) DTaP/Tdap/Td vaccine (1 - Tdap) [facility] Start: 2020 Hepatitis C screening Hepatitis C sc reen [facility] Start: 2018 Screening for Chlamy nazanin trachomatis Chlamydia screen [facility] Start: 2017 HIV screening HIV screen [facility] [employer] Start: 2014 Depression Monitoring Depression Mon itoring [facility] Start: 2013 HPV vaccine (1 - 2-d ose series) HPV vaccine (1 - 2-dose series) [facility] Start: 09-16-2007 COVID-19 Vaccine (1) COVID-19 Vaccin e (1) [facility] Start: 09-16-2003 Varicella vaccine (1 of 2 - 2-dose childhood series) Varicella vaccine (1 of 2 - 2-dose childhood series) [facility] Patient Education Depression, Adult ED [facility] Work Phone: Patient referral [facility] Work Phone: End: 12-12-2021 Sjogrens syndrome-A extractable nuclear antibody [facility] Work Phone: Comment on above: Once for 1 Occurrenc es starting 12/12/2021 until 12/12/2021 End: 12-12-2021 Sjogrens syndrome-B extractable nuclear antibody [facility] Work Phone: Comment on above: Once for 1 Occurrenc es starting 12/12/2021 until 12/12/2021 Immunizations Immunization Date Immunization Notes Care Provider Fa cility NEGATED: Highlighted row has not occurred!11-05-2019 influenza, injectable, quadrivalent, contains preservative Kendra Witt Other [employer] Other NEGATED: Highlighted row has not occurred!04-10-2019 influenza virus vaccine, unspecified formulation Bob Llanos [facility] Care Payers Date Payer Category Payer Self-pay [id number] 2023 Medicaid [employer] [place] [id number] 2023-Present [address] [place] [address] [id number] 2023 Private Health Insurance [facility] MEDICA[facility] [id number] 2002 Unknown [id number] 2.16.840.1.645212.3.579.2. 175 2002 Unknown [id number] 2.16.840.1.855326.3.579.2. 593 2002 Unknown [id number] 2.16.840.1.597122.3.579.2. 593 2002 Unknown [id number] 2.16.840.1.349908.3.579.2. 593 2002 Unknown [id number] 2.16.840.1.496733.3.579.2. 593 2002 Unknown [id number] 2.16.840.1.734018.3.579.2. 593 2002 Unknown [id number] 2.16.840.1.311142.3.579.2. 593 2002 Unknown [id number] 2.16.840.1.552906.3.579.2. 593 2002 Unknown [id number] 2.16.840.1.830505.3.579.2. 593 2002 Unknown [id number] 2.16.840.1.230897.3.579.2. 593 2002 Unknown [id number] 2.16.840.1.085913.3.579.2. 593 2002 Unknown [id number] 2.16.840.1.111296.3.579.2. 593 2002 Unknown [id number] 2.16.840.1.241299.3.579.2. 1286 2002 Unknown [id number] 2.16.840.1.966128.3.579.2. 1286 2002 Unknown [id number] 2.16.840.1.238064.3.579.2. 1286 2002 Unknown [id number] 2.16.840.1.952779.3.579.2. 727 2002 Unknown [id number] 2.16.840.1.050499.3.579.2. 727 2002 Unknown [id number] 2.16.840.1.259153.3.579.2. 727 2002 Unknown [id number] 2.16.840.1.178239.3.579.2. 727 2002 Unknown [id number] 2.16.840.1.858350.3.579.2. 727 2002 Unknown [id number] 2.16.840.1.592280.3.579.2. 1258 2002 Unknown [id number] 2.16.840.1.299699.3.579.2. 1258 2002 Unknown [id number] 2.16.840.1.531476.3.579.2. 1258 2002 Unknown [id number] 2.16.840.1.810909.3.579.2. 1258 2002 Unknown [id number] 2.16.840.1.554001.3.579.2. 1258 2002 Unknown [id number] 2.16.840.1.560100.3.579.2. 1258 2002 Unknown [id number] 2.16.840.1.559769.3.579.2. 1258 2002 Unknown [id number] 2.16.840.1.295286.3.579.2. 1258 2002 Unknown [id number] 2.16.840.1.777180.3.579.2. 1258 2002 Unknown [id number] 2.16.840.1.546035.3.579.2. 1258 2002 Unknown [id number] 2.16.840.1.710051.3.579.2. 9 1959 Unknown [id number] 2.16.840.1.733338.19 1959 Unknown [id number] Unknown [id number] 2.16.840.1.353141.3.579.2. 531 Social History Date Type Detail Facility Sex Assigned At [facility] Start: 11-28-2021 Tobacco smoking status MOIS Never smoked tobacco [employer] Phone: Start: 11-28-2021 Tobacco use and exposure Smokeless tobacco non-user [employer] Phone: Start: 12-12-2021 Alcohol intake Ex-drinker (finding) [facility] [employer] Phone: Start: 12-12-2021 Tobacco Comment no longer vapes [facility] [employer] Phone: Start: 04-21-2021 [facility] [place] [employer] Phone: Start: 2002 Sex Assigned At Not on file B [facility] [employer] Phone: Tobacco Current vaping o r e-cigarette use Smokeless Tobacco Use:. Vaping [facility] Tobacco smoking status No Smoking Status Entered [facility] Start: 10-02-2022 Tobacco smoking status NHIS Smoker (finding) [facility] Start: 2002 Sex Assigned At Female F [facility] Tobacco smoking status NHIS Tobacco smoking consumption unknown [facility] Start: 01-17-2023 Gender identity Identifies as female gender (finding) [facility] Goals Date Patient Goal Desired Activity /State Personal health goal Functional Status Date Assessment Result Facility 02-03-2024 Functional Status N/A [facility] 09-23-2023 Functional Status N/A [facility] 08-27-2023 Functional Status N/A [facility] 01-03-2023 Functional Status N/A [facility] 09-06-2022 Functional Status N/A [facility] 08-14-2022 Functional Status N/A [facility] Clinical Notes 11-06-2021 to 03-29-2024 Candice Loya LPN - 03/29/2024 11:20 AM EDLalo Loya LPN - 03/22/2024 11:20 AM ROSEANN [...] nursing note reviewed. Exam conducted with a legal mediator present. Vitals: Estimated body mass index is [...] Juvenal Thorpe DO documented in this encounter [facility] 03-22-2024 History of Presen t illness Narrative [...] nursing note reviewed. Exam conducted with a legal mediator present. Vitals: Estimated body mass index is [...] have IOL on 04/05/24 and nursing called [facility] and spoke with nursing and [...] Juvenal Thorpe DO documented in this encounter [facility] 03-15-2024 History of Presen t illness Narrative [...] nursing note reviewed. Exam conducted with a legal mediator present. Vitals: Estimated body mass index is [...] of: ROSEANN Smith documented in this encounter [facility] 02-03-2024 Evaluation + Plan note Extrac ruby from: Title:ED Note Author:Duc Swanson PA-C te:02/03/24 Sore throat (J02.9: Acute ph aryngitis, unspecified) Viral URI (J06.9: Acute upper respiratory infection, unspecified) Orders: Group A Strep by PCR Rapid Strep w/rfx Diagnostic Tests Pending * Group A Strep by PCR 02/03/24 [facility] 08-27-2024 Hospital Discharge instructions Patient Education [...] medicines to help relieve symptoms, such as: Spmr-qzw-wkjgdkf cold medicines. Cough suppressants. Coughing is a [...] and other clear broths. General instructions Take kkmm-igf-lfgzszk and prescription medicines only as told by [...] and water are not available, use hand hospital carrier. Avoid touching your mouth, face, eyes, or [...] provider. Document Revised: 12/26/2021 Document Reviewed: 12/26/2021 [facility] Patient Education 2022 [employer] Follow Up Care 02/03/2024 09:23:13 With:Juvenal THORPE Address: [address] [place] [address]- Business (1) When:02/06/2024 11:12:27 With:SELAM HUNTER Address: [place] [address]- Business (1) When:02/06/2024 11:12:21 [facility] 08-27-2024 NoteED Patient Education Note Infectious [...] to help relieve symptoms, such as: ? Eflj-yxw-oidrrxl cold medicines. ? Cough suppressants. Coughing is [...] other clear broths. General instructions ? Take kcqz-nek-sorvpst and prescription medicines only as told by [...] soap and water are not available,use hand hospital carrier. ? Avoid touching your mouth, face, eyes, [...] Mood. These symptoms m (more content not included)...[facility] 09-23-2023 Hospital Discharge instructions Patient [...] provider. Document Revised: 02/19/2021 Document Reviewed: 02/19/2021 [facility] Patient Education 2022 [employer]. Follow Up Care 09/23/2023 09:11:45 With:Juvenal THORPE Address: [address] [place] [address]- Business (1) When:09/26/2023 11:44:07 [facility]03-20-2024 Hospital Discharge instructions Patient Education 08/27/2023 [...] provider. Document Revised: 01/09/2022 Document Reviewed: 01/09/2022 [facility] Patient Education 2022 [employer] 08/27/2023 12:34:16 Urinary Tract Infection, Adult, Qeua-yw-Zbxv Urinary Tract Infection, Adult A urinary tract [...] Follow these instructions at home: Medicines Take gpvf-btt-ulakwjx and prescription medicines only as told by [...] provider. Document Revised: 01/05/2021 Document Reviewed: 01/05/2021 [facility] Patient Education 2022 [employer] 08/27/2023 12:34:16 Subchorionic Hematoma Subchorionic Hematoma [...] provider. Document Revised: 02/19/2021 Document Reviewed: 02/19/2021 [facility] Patient Education 2022 [employer] Follow Up Care 08/27/2023 09:39:16 With:Juvenal THORPE Address: [address] [place] [address]- Business (1) When:08/30/2023 12:05:10 With:SELAM HUNTER Address: [place] [address]- Business (1) When:Within 3 Day(s) [facility]03-20-2024 Evaluation + Plan noteExtracted from: Title:ED [...] day(s), # 28 cap(s), Refills(s) 0, Pharmacy: [facility], 170, cm, 08/27/23 9:49:00 EDT, Height/Length Dosing, 78.7, kg, 08/27/23 9:49:00 EDT, Weight Dosing ABO/Rh Basic Metabolic Panel Beta hCG Quantitative CBC w/ Auto Diff eGFR Extra Blue Tube Extra SST Tube UA with Cult Rflx Urine Culture US 1st Trimester US Transvaginal Diagnostic Tests Pending * Urine Culture 08/27/23 [facility]07-29-2023 Hospital Discharge instructions Patient Education 01/04/2023 00:13:01 Pharyngitis, Nhux-bg-Oczr Pharyngitis Pharyngitis is a sore throat (pharynx). [...] Follow these instructions at home: Medicines Take aeyk-snn-phbjdbz and prescription medicines only as told by [...] and water are not available, use hand hospital carrier. Do not touch your eyes, nose, or [...] provider. Document Revised: 08/22/2021 Document Reviewed: 08/22/2021 [facility] Patient Education 2022 [employer]. Follow Up Care 01/03/2023 22:32:55 With:Thony Carl Address: [address] [place] [id number] Business (1) When:01/06/2023 Comments:Follow-up with your primary care provider in 3 to 5 days. If symptoms worsen, do not improve, or new symptoms arise please report back to emergency department for further evaluation. [facility]07-28-2023 Evaluation + Plan noteExtracted from: Title:ED [...] q12hr, # 20 cap(s), Refills(s) 0, Pharmacy: [facility], 170, cm, 01/03/23 22:44:00 EDT, Height/Length Dosing, 75.3, kg, 01/03/23 22:44:00 EDT, Weight Dosing ondansetron, 4 mg = 1 tab(s), Oral, q8hr, PRN Nausea/Vomiting, # 12 tab(s), Refills(s) 0, Pharmacy: [facility], 170, cm, 01/03/23 22:44:00 EDT, Height/Length Dosing, 75.3, kg, 01/03/23 22:44:00 EDT, Weight Dosing ondansetron, 12 mg = 3 tab(s), Tab-Dis, Oral, Once, Stop date 01/03/23 23:45:00 EDT, STAT, Start date 01/03/23 23:45:00 EDT, 01/03/23 23:45:00 EDT Automated Diff Basic Metabolic Panel Beta hCG Quantitative CBC w/ Auto Diff eGFR Hepatic Function Panel Lipase Level [facility]04-19-2023 Evaluation note* Encounter Date Diagnosis Assessment [...] of symptoms occur by end of treatment. [employer] Other 03-31-2023 Hospital Discharge instructions Patient Education [...] Follow these instructions at home: Medicines Take ftjf-qer-jlyuxpx and prescription medicines only as told by [...] important. Where to find more information [employer]: www.acog.org [place] [...] 11/19/2001 Document Revised: 09/17/2019 Document Reviewed: 07/01/2017 [facility] Patient Education 2020 [employer]. Follow Up Care 09/06/2022 10:42:16 With:Juvenal THORPE Address: [address] , [place] [address]- Business (1) When:09/09/2022 13:46:05 [facility]03-09-2023 Hospital Discharge instructions Patient Education 08/14/2022 22:12:46 Abdominal Pain During , Cbvn-cl-Wybc Abdominal Pain During Belly (abdominal) pain is [...] keep your pee (urine) pale yellow. Take aoga-ada-bcaewjn and prescription medicines only as told by [...] 05/14/2010 Document Revised: 09/13/2019 Document Reviewed: 08/28/2017 [facility] Patient Education 2020 [employer]. 08/14/2022 22:12:46 Abdominal Pain, Adult, Slbj-xg-Appl Abdominal Pain, Adult Many things can cause belly (abdominal) pain. Most times, belly pain is not dangerous. Many cases of belly pain can be watched and treated at home. Sometimes, though, belly pain is serious. Your doctor will try to find the cause of your belly pain. Follow these instructions at home: Medicines Take xbht-ayr-kqfijae and prescription medicines only as told by [...] your belly pain for any changes. Take skds-fmi-nlpwkbc and prescription medicines only as told by [...] 11/11/2008 Document Revised: 10/04/2019 Document Reviewed: 10/04/2019 [facility] Patient Education 2020 [employer]. Follow Up Care 08/14/2022 18:41:38 With:Juvenal THORPE Address: [address] [facility] [place] [address]- [facility] (1) When:08/17/2022 Comments:Follow-up with Dr. Thorpe for further evaluation of your . With:Juventino Carbajal Address: [address] [place] [address] [id number] When:08/17/2022 Comments:Follow-up with your primary care provider in 3 to 5 days. If symptoms worsen, do not improve, or new symptoms arise please report back to emergency department for further evaluation. [facility]01-16-2023 Evaluation note* Encounter Date Diagnosis Assessment [...] return precautions. Jun, Cough (ICD-10 - R05.9) [employer] Other 06-07-2022 Evaluation note* Encounter Date Diagnosis [...] Pt understood and agreed to tx plan. [employer] Other 05-31-2022 Evaluation note* Encounter Date Diagnosis [...] condition October, Sore throat (ICD-10 - J02.9) [employer] Other Evaluation + Plan note No data available for this section [facility] Work Phone: Evaluation noteNo InformationN[facility]St[facility] Other Evaluation note* Diagnosis 35 weeks gestation [...] age 7 Hospitalization History see surgical hx [facility] [employer] Other Progress note No data available for this section [facility] Summary Purpose Family History No Family [...] section and content) DATE CREATED AUTHOR 01/05/2022 [facility] DATE CREATED AUTHOR AUTHOR'S ORGANIZ ATION 07/15/2022 [facility] DATE CREATED AUTHOR AUTHOR'S ORGANIZ ATION 12/26/2023 [facility] DATE CREATED AUTHOR AUTHOR'S ORGANIZ ATION 02/05/2024 [facility] DATE CREATED AUTHOR AUTHOR'S ORGANIZ ATION 02/06/2024 [facility] DATE CREATED AUTHOR AUTHOR'S ORGANIZ ATION 03/30/2024 [facility] DATE CREATED AUTHOR AUTHOR'S ORGANIZ ATION 04/04/2024 [facility] Care Teams (unrecognized sec tion and content) Personnel Name: SELAM HUNTER CNP Address: Address: [facility] [place], [place] [address] Team Status: Active Member Role Status [...] BE BASED ON THE PRIMARY CLINICAL RECORDS. [facility] [employer] provides no warranty or guarantee of the accuracy or completeness of information in this document.
== END 2024-04-03 13:20 | disposition home or self-care (01) | DRG 560 ==
PROVIDERS: Admitting Provider Obstetrics & Gynecology; Visit Provider Midwife
DX: O36.5930 Maternal care for other known or suspected poor fetal growth, third trimester, not applicable or unspecified (principal); O43.113 Circumvallate placenta, third trimester; Z3A.38 38 weeks gestation of pregnancy; Z87.59 Personal history of other complications of pregnancy, childbirth and the puerperium; O99.824 Streptococcus B carrier state complicating childbirth; O99.334 Smoking (tobacco) complicating childbirth; F17.290 Nicotine dependence, other tobacco product, uncomplicated; Z37.0 Single live birth
CPT/HCPCS: 36415; 51702; 59050; 59410; 76816; 76818; 76820; 80307; 85025; 85027; 86850; 86900; 86901; J0290; J2405; J2795

== ENCOUNTER 2024-04-30 08:42 | Outpatient (OUT) | payer OTHER, SELFPAY ==
--- NOTE | 2024-04-30 10:02 | PC.NURSE ---
Jolene and 4 week old Hermelindo arrive for support post oral revision ant Dr Aguirre's office on 04/26/2024. Mom reports he is a different baby all together Feeds have improved at the breast, with less fussiness, gas, hiccups, spit ups and generally more happy baby. Weight today is 8-6.5, up from weight of 5-15 in 4 weeks time. Mom offers breast to baby, good positioning and latching noted, infant more interested in looking at mom, and smiles when she talks with him. No latch achieved as not interested in feeding. Shown suck exercises to do to assist in strengthening oral muscles and relaxing compensatory muscles. Mom able to return demo /understanding of exercises. Infant to continue manager care management this afternoon as well. Mom was able to do 2 visits prior to oral revision. States fees comfortable and confident in ability to continue nursing baby. Is breast feeding, pumping and some bottle feeds as will return to work in next few weeks. Leaves ambulatory with baby. Will call as needed for support.
== END 2024-04-30 09:45 | disposition home or self-care (01) ==
LOC: FBCO 08:43
PROVIDERS: Visit Provider Obstetrics & Gynecology
DX: Z39.1 Encounter for care and examination of lactating mother (principal)